=== PATIENT | male | born 1935 | race Caucasian/White ===

== ENCOUNTER → 2016-11-30 | Outpatient (CLI) | payer OTHER ==
[~2016-11-30] MED LIST: ALBUAER2 INH; AMLO-114 PO; ASPI-232 PO; ATEN-173 PO; LISI40TA PO; MELO15TA3 PO; MULTTAB58 PO; TAMS0.4C38 PO; TRAM-10 PO
[2016-11-30 13:05] VITALS: BP 156/68; PULSE 60; TEMP 36.6; O2SAT 96
--- NOTE | 2016-11-30 14:41 | Radiation Oncology Follow-Up ---
Radiation Oncology Follow-Up Date of Visit Nov 30, 2016. Reason For Visit Annual follow-up Radiation Completion Date Hormonal suppression;brachytherapy 02/03/15;IMRT 04/28/15 Diagnosis (1) Prostate cancer Status: Resolved Onset Date: 11/03/2014 Location: both lobes of the prostate Histology Subtype: adenocarcinoma Stage: ll (A) Permanent Comment: Rising PSA to 7.46 Status post ultrasound-guided biopsies revealing adenocarcinoma Foley 4+3, biopsy stage T2c Initiation of hormone suppression prior to prostate seed implant, short course Status post prostate seed implant 02/03/2015 with cesium 131 received 8500 cGy 50 seeds placed Status post completion of IMRT/IGRT 04/28/2015 received 4500 cGy Last Edited By: Sandra Marquez on Nov 30, 2016 14:40 History of Present Illness Mr. Elliott is a 80-year-old male without a family history of prostate cancer. The patient has been followed with serial prostate-specific antigens. Prostate-specific antigen on 12/14/2004 was 3.84. 3.92. December 11 2073.80. 01/2008 3.63. 01/23/2009 4.10. 03/22/2010 3.95. On 04/08/2011 the prostate- specific antigen increased to 5.38. 2010 4.90. 04/13/2012 4.80. 04/12/2013 6.41 and 10/16/2014 7.46. He initially was following a watchful waiting process. The patient was recently seen by Dr. Elam. His digital exam revealed an enlarged prostate that was firm more so on the right without evidence of extra prostatic extension. With the findings of abnormal digital rectal exam and rise in prostate-specific antigen Dr. Elam recommended a ultrasound-guided prostate biopsy. The patient agreed at this procedure was performed on 11/03/2014. A total of 13 samples were taken. Tissue from the left lateral apex, right apex and right lateral apex were benign. Biopsies from the left lateral base was positive for prostatic adenocarcinoma Gabriela grade of 4+3 involving 80% of the core tissue sample. Biopsy from the left base revealed prostatic adenocarcinoma Foley grade 4+3 involving 90% of the core sample. Biopsy from the midline base revealed a prostatic adenocarcinoma Gabriela grade of 4+3 involving 5% of the core sample. Biopsy of the right base revealed prostatic adenocarcinoma Foley grade of 4+3 involving 60% of the core sample with evidence of perineural invasion. Biopsy from the right lateral base was positive for prostatic adenocarcinoma Gabriela grade of 4+3 involving 90 % of the core sample with evidence of perineural invasion. Biopsy from the left lateral mid was positive for prostatic adenocarcinoma Gabriela grade 4+3 involving 90% of the tissue sample with evidence of perineural invasion. Biopsy from the left and right mid gland were both positive for prostatic adenocarcinoma Gabriela grade of 4+3 involving 70% and 90 % of the core tissue samples respectively. Biopsy of the left apex was positive for prostatic adenocarcinoma recent grade of 4+3 involving 60% of the core tissue sample. Therefore total of 10 of 13 biopsies were positive for Gabriela grade 4+3 with 4 of the positive for perineural invasion and 9 of the 10 greater than 50% involvement. Accession #: [id number]. The patient returned to discuss these findings with Dr. Elam. His estimated prostate volume was 39.72 cm. His prostate-specific antigen density was calculated at 0.19. Given these findings and the patient's otherwise good health Dr. Elam felt it was reasonable to discuss definitive treatment options. She did not feel the patient was likely a good candidate for surgery given his age. She therefore suggested consideration of radiation and hormonal suppression. All options of treatment were reviewed with the patient. Ultimately the decision was to treat with hormonal suppression, followed by Prostate seed implant, and then external beam radiation therapy. Interim History He is been doing well over this past year. He gave an AUA score of 3. He continues on tamsulosin daily. He had stopped taking this for approximately 2 months and found that he had increased urinary symptoms. He especially notes a mild burning sensation. With taking the Flomax this resolves. He had reviewed this with Dr. Elam. He was instructed to continue on the medication. He completed expanded prostate cancer index composite for clinical practice and gave a score of 0 12 and urinary incontinence symptoms. He gave a score of 212 in urinary irritation symptoms. He gave a score of 0 of 12 bowel symptoms. He gave a score of 412 and sexual symptoms. He gave a score of one of 12 and hormonal vitality symptoms. His total of 7 of 60. His last PSA was 2014. And this was 0.22. Allergies Coded Allergies: No Known Allergies (Unverified , 02/03/15) Home Medications Scheduled Amlodipine (Norvasc), 10 MG PO QAM Aspirin (Aspir-81), 1 TAB PO QAM Atenolol (Tenormin), 25 MG PO DAILY Lisinopril (Zestril), 40 MG PO QAM Meloxicam (Mobic), 15 MG PO QAM Multiple Vitamin (Multivitamin), 1 TAB PO QAM Tamsulosin Hcl (Flomax), 0.4 MG PO DAILY Scheduled PRN Albuterol (Ventolin Hfa), 2 PUFFS INH Q4H PRN for Shortness of Breath Tramadol (Ultram), 50 MG PO QID PRN for Pain Review of Systems Gastrointestinal: Symptoms: WNL GI Comments: No fiber supplements; Oral: Symptoms: No Problems Respiratory: Symptoms: SOB With Exertion Respiratory Comments: Throat clearing w/talking; Sputum Character: Worked in the [employer]; Other Respiratory: SOB w/exertion is worsening w/aging;uses inhaler daily; Urinary: Symptoms: Burning Comments: Burning in penis right before start of stream-present since implant; Skin: Symptoms: No Problems Physical Exam Vital Signs Date Time Temp Pulse Resp B/P Pulse Ox O2 Delivery O2 Flow Rate FiO2 11/30/16 13:05 36.6 60 16 156/68 96 Fatigue: None General Appearance: no apparent distress Eyes: normal inspection, EOMI ENT: normal ENT inspection, hearing grossly normal Neck: no adenopathy, thyroid normal Respiratory/Chest: lungs clear, no respiratory distress, no accessory muscle use Cardiovascular: regular rate, rhythm, no gallop, no murmur Abdomen: non tender, soft, no organomegaly Anal / Rectum: Mildly laxed sphincter tone. Prostate enlarged, smooth, with no nodules. No rectal masses and no rectal bleeding. Extremities: no pedal edema Neurologic/Psychiatric: no motor/sensory deficits, alert, normal mood/affect Skin: warm/dry Lymphatic: no adenopathy Laboratory Studies Test 11/30/16 13:33 Additional Studies PSA was drawn today. He had a 08/03/2015 that was 0.22. Assessment & Plan Plan: Continue regular follow-up with his PCP and Dr. Elam. A PSA was drawn today prior to examination. He'll be notified as to results. He plans to continue on the tamsulosin. This is been refilled through either Dr. Elam office or Dr. Cisneros's office. We asked him to return to our office in 1 year. He may call if he has new questions or concerns in the interim. Total Time In Follow-Up I spent 20 minutes speaking to the patient performing examination. I spent 15 minutes reviewing information completing this note. Copy To Ben Cisneros M.D.; Sade Elam MD
== END | disposition home or self-care (01) ==
LOC: C.ONC 12:35
PROVIDERS: ATTEND Physician Assistant Medical
DX: Z08 Encounter for follow-up examination after completed treatment for malignant neoplasm (principal); Z92.3 Personal history of irradiation; Z85.46 Personal history of malignant neoplasm of prostate

== ENCOUNTER → 2017-12-05 | Outpatient (CLI) | payer OTHER ==
[2017-12-05 13:33] VITALS: BP 163/55; PULSE 64; TEMP 36.5; O2SAT 97
--- NOTE | 2017-12-05 15:23 | Radiation Oncology Follow-Up ---
Radiation Oncology Follow-Up Date of Visit Dec 05, 2017. Reason For Visit Annual follow-up Radiation Completion Date finished IMRT / IGRT 04-28-2015, and seed implant on 02-03-2015 Diagnosis (1) Prostate cancer Status: Resolved Onset Date: 11/03/2014 Histology Subtype: Adenocarcinoma Stage: ll (A) Permanent Comment: Rising PSA to 7.46 Status post ultrasound-guided biopsies revealing adenocarcinoma Buchanan 4+3, biopsy stage T2c Initiation of hormone suppression prior to prostate seed implant, short course Status post prostate seed implant 02/03/2015 with cesium 131 received 8500 cGy 50 seeds placed Status post completion of IMRT/IGRT 04/28/2015 received 4500 cGy Last Edited By: Sandra Marquez on Nov 30, 2016 14:40 History of Present Illness Mr. Elliott is without a family history of prostate cancer. The patient has been followed with serial prostate-specific antigens. Prostate-specific antigen on 12/14/2004 was 3.84. 3.92. December 113.80. 01/2008 3.63. 01/23/2009 4.10. 03/22/2010 3.95. On 04/08/2011 the prostate- specific antigen increased to 5.38. 2010 4.90. 04/13/2012 4.80. 04/12/2013 6.41 and 10/16/2014 7.46. He initially was following a watchful waiting process. The patient was recently seen by Dr. Elam. His digital exam revealed an enlarged prostate that was firm more so on the right without evidence of extra prostatic extension. With the findings of abnormal digital rectal exam and rise in prostate-specific antigen Dr. Elam recommended a ultrasound-guided prostate biopsy. The patient agreed at this procedure was performed on 11/03/2014. A total of 13 samples were taken. Tissue from the left lateral apex, right apex and right lateral apex were benign. Biopsies from the left lateral base was positive for prostatic adenocarcinoma Gabriela grade of 4+3 involving 80% of the core tissue sample. Biopsy from the left base revealed prostatic adenocarcinoma Buchanan grade 4+3 involving 90% of the core sample. Biopsy from the midline base revealed a prostatic adenocarcinoma Gabriela grade of 4+3 involving 5% of the core sample. Biopsy of the right base revealed prostatic adenocarcinoma Buchanan grade of 4+3 involving 60% of the core sample with evidence of perineural invasion. Biopsy from the right lateral base was positive for prostatic adenocarcinoma Buchanan grade of 4+3 involving 90 % of the core sample with evidence of perineural invasion. Biopsy from the left lateral mid was positive for prostatic adenocarcinoma Buchanan grade 4+3 involving 90% of the tissue sample with evidence of perineural invasion. Biopsy from the left and right mid gland were both positive for prostatic adenocarcinoma Gabriela grade of 4+3 involving 70% and 90 % of the core tissue samples respectively. Biopsy of the left apex was positive for prostatic adenocarcinoma recent grade of 4+3 involving 60% of the core tissue sample. Therefore total of 10 of 13 biopsies were positive for Buchanan grade 4+3 with 4 of the positive for perineural invasion and 9 of the 10 greater than 50% involvement. Accession #: [id number]. The patient returned to discuss these findings with Dr. Elam. His estimated prostate volume was 39.72 cm. His prostate-specific antigen density was calculated at 0.19. Given these findings and the patient's otherwise good health Dr. Elam felt it was reasonable to discuss definitive treatment options. She did not feel the patient was likely a good candidate for surgery given his age. She therefore suggested consideration of radiation and hormonal suppression. All options of treatment were reviewed with the patient. Ultimately the decision was to treat with hormonal suppression, followed by Prostate seed implant, and then external beam radiation therapy. Interim History He has been doing well over this past year from a urinary status. He gave an AUA score of 3. He completed and expanded prostate cancer index composite for clinical practice and gave a score of 0 of 12 in urinary incontinence symptoms. He gave a score of 0 of 12 and urinary irritation symptoms. He gave a score of 0 of 12 and bowel symptoms. He did not complete the remainder of the form. His total score therefore was 0 of 36. He does continue on tamsulosin. This helps with his urination and he continues to take it daily. He has a history of benign prostatic hypertrophy. This past year he had issues with carpal tunnel syndrome and had surgery. He also is now followed by Dr. Taveras for his COPD. His last PSA was November 30, 2016 and that was 0.081. Allergies Coded Allergies: No Known Allergies (Unverified , 02/03/15) Home Medications Scheduled Amlodipine (Norvasc), 10 MG PO QAM Aspirin (Aspir-81), 1 TAB PO QAM Atenolol (Tenormin), 25 MG PO DAILY Lisinopril (Zestril), 40 MG PO QAM Meloxicam (Mobic), 15 MG PO QAM Multiple Vitamin (Multivitamin), 1 TAB PO QAM Tamsulosin Hcl (Flomax), 0.4 MG PO DAILY Scheduled PRN Albuterol (Ventolin Hfa), 2 PUFFS INH Q4H PRN for Shortness of Breath Tramadol (Ultram), 50 MG PO QID PRN for Pain Review of Systems Gastrointestinal: Symptoms: WNL GI Comments: No fiber supplements; Oral: Symptoms: No Problems Other Oral Symptoms: " occ sore in front lower teeth when dentures rub " Respiratory: Symptoms: SOB With Exertion Respiratory Comments: Throat clearing w/talking; Sputum Character: Worked in the [employer]; Other Respiratory: " working with Dr Taveras for this " Urinary: Symptoms: Nocturia Comments: " occ urgency when hands are in water " , nocturia times 2 Skin: Symptoms: No Problems Other Skin Symptoms: " gets a rash on the back of my legs " Physical Exam Vital Signs Date Time Temp Pulse Resp B/P (MAP) Pulse Ox O2 Delivery O2 Flow Rate FiO2 12/05/17 13:33 36.5 64 20 163/55 97 Fatigue: None General Appearance: no apparent distress Eyes: normal inspection, EOMI ENT: normal ENT inspection, hearing grossly normal Respiratory/Chest: no respiratory distress, no accessory muscle use, + decreased breath sounds Cardiovascular: regular rate, rhythm, no gallop, no murmur Abdomen: non tender, soft, no organomegaly Anal / Rectum: Normal sphincter tone. Mild external hemorrhoids. No rectal masses no rectal bleeding. Prostate enlarged. No prostate nodules. Extremities: no pedal edema Neurologic/Psychiatric: no motor/sensory deficits, alert, normal mood/affect Skin: warm/dry Pain Management Patient Reports Pain: No Side: Bilateral Patient Preferred Pain Scale: 0 - 10 Initial Pain Intensity: 0.0 Pain Management Plan He denies pain therefore requires no pain management. Laboratory Laboratory Results: were reviewed, and pertinent findings noted below Laboratory Comments: Test 12/05/17 13:40 Prostate Specific Antigen 0.069 ng/ml (0.000-4.000) Pathology Pathology Results: not applicable Imaging Imaging Studies: not applicable Assessment & Plan Plan: PSA was drawn today prior to examination. Continue regular follow-up with his primary care physician and urology. He will be notified as to the results of the PSA. We asked him to return to our office in 1 year. He continues on the tamsulosin which is being refilled through Dr. Lord's or Dr. Elam's office. He may call our office if he has any questions or concerns. Total Time In Follow-Up I spent 20 minutes speaking to the patient in performing examination. I spent 15 minutes reviewing information and completing this note. Copy To Ben Cisneros M.D.; Sade Elam MD
== END | disposition home or self-care (01) ==
LOC: C.ONC 13:19
PROVIDERS: ATTEND Physician Assistant Medical
DX: Z08 Encounter for follow-up examination after completed treatment for malignant neoplasm (principal); Z92.3 Personal history of irradiation; Z85.46 Personal history of malignant neoplasm of prostate

== ENCOUNTER 2023-03-06 18:09 | Inpatient (IN) ==
[2023-03-06] MEDS ORDERED: ASPIRIN 81 MG CHEW PO STA (18:27)
[2023-03-06] MEDS ORDERED: ALBUT/IPRATROP 3MG/0.5MG NEB 3 ML VIAL NEB STA (18:27)
--- NOTE | 2023-03-06 18:30 | Emergency Department Note ---
Impression & Plan Acute CHF (congestive heart failure), Hypoxia, Acute bronchitis due to Rhinovirus ED Provider Note Provider: Zack Rosas MD DATE OF SERVICE: 03/06/2023 CHIEF COMPLAINT: Shortness of breath, chest pain HISTORY OF PRESENT ILLNESS: Patient is a 87-year-old gentleman history of pneumatosis, distant former smoker, and CHF who reports presenting here today via ambulance from his home. Over the past several days he states has had worsening shortness of breath, leg swelling at the ankles, and some central chest discomfort. 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 Has been taking his diuretic Lasix. Reports of brownish sputum with his cough. Using his home 2 L of oxygen at night regularly but not during the day and was found to be hypoxic on room air for EMS in the 80s. Placed on additional nasal cannula oxygen and given nitroglycerin in route here. Patient states his chest discomfort is nearly resolved and very minimal now. Denies any abdominal pain but occasionally has some gas. No trauma reported. Significant dyspnea on exertion. Takes a baby aspirin daily. Nebulizers at home not helping much with his symptoms by report. PAST MEDICAL HISTORY: As noted above MEDICATIONS: Reviewed home medications SOCIAL HISTORY: Very distant former smoker PHYSICAL EXAM: GENERAL: alert and oriented in no acute distress on stretcher Head: normocephalic and atraumatic EYES: No injection, discharge or icterus. NECK: Trachea midline. Supple. ENT: Mucous membranes pink and moist. LUNGS: Airway patent. No retractions. Breath sounds with some scattered wheeze and tachypnea noted. HEART: Regular rate and rhythm. No chest wall tenderness ABDOMEN: Soft and non-tender, without guarding or rebound. SKIN: Acyanotic, warm, dry, without rashes EXTREMITIES: Without deformity with 1-2+ lower extremity edema in the bilateral lower legs without significant erythema. NEUROLOGICAL: No focal deficits. No aphasia. No facial droop or slurred speech EK bpm normal sinus rhythm without PVC noted. Inferior lateral T wave changes without acute ST segment elevation noted. LVH findings noted. CONTINUOUS CARDIAC MONITORING: was ordered and showed a heart rate of 80s-100s bpm in normal sinus rhythm to sinus tachycardia Patient's laboratory studies and imaging reviewed. Differential includes Reactive airway disease, pneumonia, pneumothorax, COPD, CHF, infections, cardiac ischemia, pulmonary embolism, musculoskeletal, gastrointestinal, as well as other pathologies. IMPRESSION/MEDICAL DECISION MAKING: Patient uses 2 L oxygen at night but not normally during the day increasing shortness of breath with some pedal edema developing over the last several days with some central chest discomfort. No trauma reported or syncope. Improved with some nitroglycerin on the way but still with some respiratory symptoms. Increase oxygen requirement from baseline. States compliance with home occasions nebulizers and diuretics. Reviewed the [facility] medical record showing evidence of interstitial lung disease without significant pulmonary edema from CT angiogram of the chest without PE from February 21. Office note from February 14 reviewed from PCPs office. Has had some phlegm production with a borderline temperature here. Will give aspirin and a DuoNeb. Respiratory viral panel ordered. Basic labs ordered as well as chest x-ray. Low suspicion for acute PE at this time. Possibly infectious versus related to fluid overload. We will complete troponin in addition to EKG to exclude ACS but not having significant pain now and lower suspicion for acute ACS and no evidence of STEMI on EKG. Blood work with mild leukocytosis of 12.2. Slight anemia of 12.3. Platelet count normal. Chest x-ray questions pulmonary edema findings. BNP elevated. Some troponin elevation of 135. Reviewing outpatient labs show that he did have a creatinine of 1.7 on February 14 and is 1.99 today. Will cover with doxycycline given his underlying lung disease and the fever to cover any bacterial component. Enterovirus/rhinovirus finding on the bio fire likely contributing as well. Given some aspirin with the elevated troponin and a bit of Lasix for further diuresis. A mix picture of interstitial lung disease/COPD flare with rhinovirus as well as underlying CHF. Discussed with patient and granddaughter at bedside. Discussed with hospitalist further care here. Was able to wean down his oxygen some to about 3 L NC. DIAGNOSIS: Hypoxia, acute CHF exacerbation, COPD exacerbation, enterovirus/rhinovirus DISPOSITION: Hospitalist will evaluate Patient was agreeable with this plan. Past Med/Surg History Medical History (Updated 03/07/23 @ 00:08 by Zack Rosas M.D.) Asthma Cough Dizziness Surgical History (Updated 05/21/19 @ 16:38 by Jaye Hanley) H/O shoulder surgery History of appendectomy Social History (Updated 05/21/19 @ 16:38 by Jaye Hanley) Smoking Status: Never smoker Second Hand Exposure: No; Do You Dip or Chew Tobacco: No; Tobacco Cessation Education Requested by Patient: No Hx Alcohol Use: No Hx Substance Use: No Communication Ability: Effective Beliefs That Will Affect Care: None marital status: / Current Living Situation: Alone Other Information That Helps Us Care for You: No Feels Safe at Home: Yes Safety Concerns: Feels Safe At This Time Assistive Devices: None Allergies Allergies Allergy/AdvReac Type Severity Reaction Status Date / Time No Known Allergies Allergy Verified 03/06/23 19:40 Home Meds Home Medications Medication Instructions Recorded Confirmed aspirin 81 mg tablet,delayed 81 mg PO DAILY 05/21/19 03/06/23 release meloxicam 15 mg tablet 15 mg PO DAILY 05/21/19 03/06/23 tamsulosin 0.4 mg capsule 0.8 mg PO DAILY 05/21/19 03/06/23 triamcinolone acetonide 0.1 % 1 applic topical BID PRN Skin 05/21/19 03/06/23 topical ointment Irritation multivitamin-ferrous 1 tab PO DAILY 05/22/19 03/06/23 fumarate-folic acid 18 mg-400 mcg tablet (Centrum Complete) carvedilol 12.5 mg tablet 12.5 mg PO BID 05/26/20 03/06/23 citalopram 10 mg tablet 10 mg PO QAM 03/06/23 03/06/23 cyanocobalamin (vitamin B-12) 100 100 mcg PO DAILY 03/06/23 03/06/23 mcg tablet (Vitamin B-12) famotidine 20 mg tablet 20 mg PO HS 03/06/23 03/06/23 furosemide 40 mg tablet (Lasix) 40 mg PO QAM 03/06/23 03/06/23 guaifenesin 600 mg tablet, 600 mg PO Q12H PRN COUGH/CONGESTION 03/06/23 03/06/23 extended release 12 hr ipratropium bromide 17 2 puff inhalation QID 03/06/23 03/06/23 mcg/actuation HFA aerosol inhaler (Atrovent HFA) irbesartan 75 mg tablet 75 mg PO DAILY 03/06/23 03/06/23 loratadine 10 mg tablet (Claritin) 10 mg PO DAILY 03/06/23 03/06/23 pantoprazole 20 mg tablet,delayed 20 mg PO DAILYBB 03/06/23 03/06/23 release salmeterol 50 mcg/dose blister 1 inh inhalation BID 03/06/23 03/06/23 powder for inhalation (Serevent Diskus) sodium chloride 0.65 % nasal spray 1 spray intranasal BID PRN NASAL 03/06/23 03/06/23 aerosol (Saline Nasal) DRYNESS Previous Rx's Medication Instructions Recorded fluticasone propionate 50 2 sprays intranasal DAILY #16 grams 11/29/19 mcg/actuation nasal spray,suspension Results & Data (ED) Vital Signs Vital Signs - 24 hr 03/06/23 18:27 03/06/23 18:27 03/06/23 18:27 Temperature 37.8 C H Temperature Source Oral Pulse Rate 99 H Pulse Rate [Apical] 99 H Pulse Rhythm Regular Pulse Rhythm [Apical] Regular Pulse Strength Normal Pulse Strength [Apical] Normal Respiratory Rate 30 H 30 H Respiratory Effort / Characteristics Labored Labored Labored Respiratory Depth Shallow Shallow Shallow Respiratory Pattern Tachypnea Tachypnea Tachypnea Blood Pressure 142/85 H Blood Pressure [Right Arm] 142/85 H Blood Pressure Mean 104 Blood Pressure Mean [Right Arm] 104 Blood Pressure Position Sitting Blood Pressure Position [Right Arm] Sitting Pulse Oximetry 86 L 86 L Oxygen Delivery Method Room Air Room Air Room Air Oxygen Flow Rate Sepsis Recent Fever Within 48 Hours No Sepsis New/Unexplained Change in Mental Status No Sepsis Action Taken by Nursing No Action Required 03/06/23 18:27 03/06/23 18:27 03/06/23 18:28 Temperature Temperature Source Pulse Rate 99 H 101 H Pulse Rate [Apical] Pulse Rhythm Regular Pulse Rhythm [Apical] Pulse Strength Pulse Strength [Apical] Respiratory Rate 30 H Respiratory Effort / Characteristics Respiratory Depth Respiratory Pattern Blood Pressure Blood Pressure [Right Arm] Blood Pressure Mean Blood Pressure Mean [Right Arm] Blood Pressure Position Blood Pressure Position [Right Arm] Pulse Oximetry 96 Oxygen Delivery Method Nasal Cannula Nasal Cannula Oxygen Flow Rate 4 4 Sepsis Recent Fever Within 48 Hours Sepsis New/Unexplained Change in Mental Status Sepsis Action Taken by Nursing 03/06/23 18:22 03/06/23 18:30 03/06/23 19:00 Temperature Temperature Source Pulse Rate 97 H 99 H 97 H Pulse Rate [Apical] Pulse Rhythm Pulse Rhythm [Apical] Pulse Strength Pulse Strength [Apical] Respiratory Rate 30 H 28 H 25 H Respiratory Effort / Characteristics Respiratory Depth Respiratory Pattern Blood Pressure 144/93 H 148/94 H Blood Pressure [Right Arm] Blood Pressure Mean 110 112 Blood Pressure Mean [Right Arm] Blood Pressure Position Blood Pressure Position [Right Arm] Pulse Oximetry 99 100 100 Oxygen Delivery Method Nasal Cannula Nasal Cannula Nasal Cannula Oxygen Flow Rate 4 4 4 Sepsis Recent Fever Within 48 Hours Sepsis New/Unexplained Change in Mental Status Sepsis Action Taken by Nursing 03/06/23 19:30 03/06/23 20:00 03/06/23 20:30 Temperature Temperature Source Pulse Rate 97 H 94 H 91 H Pulse Rate [Apical] Pulse Rhythm Pulse Rhythm [Apical] Pulse Strength Pulse Strength [Apical] Respiratory Rate 22 29 H 22 Respiratory Effort / Characteristics Respiratory Depth Respiratory Pattern Blood Pressure 139/85 135/82 137/86 Blood Pressure [Right Arm] Blood Pressure Mean 103 99 103 Blood Pressure Mean [Right Arm] Blood Pressure Position Blood Pressure Position [Right Arm] Pulse Oximetry 98 98 97 Oxygen Delivery Method Nasal Cannula Nasal Cannula Nasal Cannula Oxygen Flow Rate 4 4 4 Sepsis Recent Fever Within 48 Hours Sepsis New/Unexplained Change in Mental Status Sepsis Action Taken by Nursing 03/06/23 21:00 03/06/23 21:31 Temperature Temperature Source Pulse Rate 89 98 H Pulse Rate [Apical] Pulse Rhythm Pulse Rhythm [Apical] Pulse Strength Pulse Strength [Apical] Respiratory Rate 16 23 Respiratory Effort / Characteristics Respiratory Depth Respiratory Pattern Blood Pressure 139/84 130/85 Blood Pressure [Right Arm] Blood Pressure Mean 102 100 Blood Pressure Mean [Right Arm] Blood Pressure Position Blood Pressure Position [Right Arm] Pulse Oximetry 96 94 Oxygen Delivery Method Nasal Cannula Nasal Cannula Oxygen Flow Rate 2 2 Sepsis Recent Fever Within 48 Hours Sepsis New/Unexplained Change in Mental Status Sepsis Action Taken by Nursing Laboratory Data 03/06/23 18:27 03/06/23 18:27 Lab Results 03/06/23 03/06/23 03/06/23 Range/Units 18:27 18:27 18:28 WBC 12.23 H (4.8-10.8) K/ul RBC 4.06 L (4.70-6.10) M/uL Hgb 12.3 L (14.0-18.0) g/dl Hct 37.0 L (42.0-52.0) % MCV 91.1 (80.0-100.0) fL MCH 30.3 (25.0-34.0) pg MCHC 33.2 (32.0-36.0) g/dL RDW Std Deviation 47.7 H (36.4-46.3) fL RDW Coeff of Nehemias 14.4 (11.5-14.5) % Plt Count 223 (130-400) K/uL MPV 11.2 (9.4-12.4) fL Immature Gran % (Auto) 0.2 % Neut % (Auto) 78.9 % Lymph % (Auto) 8.2 % [place] % (Auto) 7.4 % Eos % (Auto) 4.4 % Baso % (Auto) 0.9 % Neut # (Auto) 9.64 H (1.40-6.50) K/uL Lymph # (Auto) 1.00 L (1.2-3.4) K/uL [place] # (Auto) 0.91 H (0.11-0.59) K/uL Eos # (Auto) 0.54 H (0-0.50) K/uL Baso # (Auto) 0.11 (0-0.2) K/uL Immature Gran # (Auto) 0.03 (0.01-0.20) K/uL PT Cancelled INR Cancelled APTT Cancelled PTT Ratio Cancelled ABG pH (7.35-7.45) ABG pCO2 (35-46) mmHg ABG pO2 (80-95) mmHg ABG HCO3 (19-24) mmol/L ABG O2 Saturation (90-95) % ABG Base Excess (-9-1.8) mEq/L Claudoi Test (Pos) Oxygen Given Sodium Cancelled Potassium Cancelled Chloride Cancelled Carbon Dioxide Cancelled Anion Gap Cancelled BUN Cancelled Creatinine Cancelled Est Cr Clr Drug Dosing Cancelled Est GFR ( Amer) Cancelled Est GFR (Non-Af Amer) Cancelled BUN/Creatinine Ratio Cancelled Glucose Cancelled Lactate (0.4-2.0) mmol/L Calcium Cancelled Magnesium Cancelled Total Bilirubin Cancelled AST Cancelled ALT Cancelled Alkaline Phosphatase Cancelled Troponin I High Sens 135.4 H* (0-20) pg/ml B-Natriuretic Peptide (0-100) pg/ml Total Protein Cancelled Albumin Cancelled Globulin Cancelled Albumin/Globulin Ratio Cancelled Procalcitonin (0-0.5) ng/ml TSH (0.300-4.500) uIu/ml Free T4 (0.61-1.60) ng/dl Adenovirus (PCR) (NotDetected) B. pertussis DNA (PCR) (NotDetected) B.parapertussis DNA PCR (NotDetected) C. pneumoniae DNA (PCR) (NotDetected) Coronavirus OC43 (PCR) (NotDetected) Coronavirus HKU1 (PCR) (NotDetected) Coronavirus 229E (PCR) (NotDetected) SARS-CoV-2 (PCR) (NotDetected) Coronavirus NL63 (PCR) (NotDetected) Human Metapneumovir PCR (NotDetected) Influenza Type A (PCR) (NotDetected) Influenza Type B (PCR) (NotDetected) M. pneumoniae (PCR) (NotDetected) Parainfluenza 1 (PCR) (NotDetected) Parainfluenza 2 (PCR) (NotDetected) Parainfluenza 3 (PCR) (NotDetected) Parainfluenza 4 (PCR) (NotDetected) RSV (PCR) (NotDetected) Entero/Rhino (PCR) (NotDetected) 03/06/23 03/06/23 03/06/23 Range/Units 18:28 18:44 19:33 WBC (4.8-10.8) K/ul RBC (4.70-6.10) M/uL Hgb (14.0-18.0) g/dl Hct (42.0-52.0) % MCV (80.0-100.0) fL MCH (25.0-34.0) pg MCHC (32.0-36.0) g/dL RDW Std Deviation (36.4-46.3) fL RDW Coeff of Nehemias (11.5-14.5) % Plt Count (130-400) K/uL MPV (9.4-12.4) fL Immature Gran % (Auto) % Neut % (Auto) % Lymph % (Auto) % [place] % (Auto) % Eos % (Auto) % Baso % (Auto) % Neut # (Auto) (1.40-6.50) K/uL Lymph # (Auto) (1.2-3.4) K/uL [place] # (Auto) (0.11-0.59) K/uL Eos # (Auto) (0-0.50) K/uL Baso # (Auto) (0-0.2) K/uL Immature Gran # (Auto) (0.01-0.20) K/uL PT INR APTT PTT Ratio ABG pH (7.35-7.45) ABG pCO2 (35-46) mmHg ABG pO2 (80-95) mmHg ABG HCO3 (19-24) mmol/L ABG O2 Saturation (90-95) % ABG Base Excess (-9-1.8) mEq/L Claudio Test (Pos) Oxygen Given Sodium Potassium Chloride Carbon Dioxide Anion Gap BUN Creatinine Est Cr Clr Drug Dosing Est GFR ( Amer) Est GFR (Non-Af Amer) BUN/Creatinine Ratio Glucose Lactate 1.2 (0.4-2.0) mmol/L Calcium Magnesium Total Bilirubin AST ALT Alkaline Phosphatase Troponin I High Sens (0-20) pg/ml B-Natriuretic Peptide 1691 H (0-100) pg/ml Total Protein Albumin Globulin Albumin/Globulin Ratio Procalcitonin (0-0.5) ng/ml TSH (0.300-4.500) uIu/ml Free T4 (0.61-1.60) ng/dl Adenovirus (PCR) Not Detected (NotDetected) B. pertussis DNA (PCR) Not Detected (NotDetected) B.parapertussis DNA PCR Not Detected (NotDetected) C. pneumoniae DNA (PCR) Not Detected (NotDetected) Coronavirus OC43 (PCR) Not Detected (NotDetected) Coronavirus HKU1 (PCR) Not Detected (NotDetected) Coronavirus 229E (PCR) Not Detected (NotDetected) SARS-CoV-2 (PCR) Not Detected (NotDetected) Coronavirus NL63 (PCR) Not Detected (NotDetected) Human Metapneumovir PCR Not Detected (NotDetected) Influenza Type A (PCR) Not Detected (NotDetected) Influenza Type B (PCR) Not Detected (NotDetected) M. pneumoniae (PCR) Not Detected (NotDetected) Parainfluenza 1 (PCR) Not Detected (NotDetected) Parainfluenza 2 (PCR) Not Detected (NotDetected) Parainfluenza 3 (PCR) Not Detected (NotDetected) Parainfluenza 4 (PCR) Not Detected (NotDetected) RSV (PCR) Not Detected (NotDetected) Entero/Rhino (PCR) DETECTED A* (NotDetected) 03/06/23 03/06/23 03/06/23 Range/Units 19:33 19:33 19:34 WBC (4.8-10.8) K/ul RBC (4.70-6.10) M/uL Hgb (14.0-18.0) g/dl Hct (42.0-52.0) % MCV (80.0-100.0) fL MCH (25.0-34.0) pg MCHC (32.0-36.0) g/dL RDW Std Deviation (36.4-46.3) fL RDW Coeff of Nehemias (11.5-14.5) % Plt Count (130-400) K/uL MPV (9.4-12.4) fL Immature Gran % (Auto) % Neut % (Auto) % Lymph % (Auto) % [place] % (Auto) % Eos % (Auto) % Baso % (Auto) % Neut # (Auto) (1.40-6.50) K/uL Lymph # (Auto) (1.2-3.4) K/uL [place] # (Auto) (0.11-0.59) K/uL Eos # (Auto) (0-0.50) K/uL Baso # (Auto) (0-0.2) K/uL Immature Gran # (Auto) (0.01-0.20) K/uL PT INR APTT PTT Ratio ABG pH (7.35-7.45) ABG pCO2 (35-46) mmHg ABG pO2 (80-95) mmHg ABG HCO3 (19-24) mmol/L ABG O2 Saturation (90-95) % ABG Base Excess (-9-1.8) mEq/L Claudio Test (Pos) Oxygen Given Sodium 134 L Potassium 4.9 Chloride 103 Carbon Dioxide 26 Anion Gap 5 BUN 46 H Creatinine 1.99 H Est Cr Clr Drug Dosing 30.4 Est GFR ( Amer) 34.0 Est GFR (Non-Af Amer) 29.3 BUN/Creatinine Ratio 23.1 H Glucose 160 H Lactate (0.4-2.0) mmol/L Calcium 9.5 Magnesium 2.0 Total Bilirubin 0.6 AST 18 ALT 24 Alkaline Phosphatase 120 H Troponin I High Sens (0-20) pg/ml B-Natriuretic Peptide (0-100) pg/ml Total Protein 8.0 Albumin 3.7 Globulin 4.3 H Albumin/Globulin Ratio 0.9 Procalcitonin 0.05 (0-0.5) ng/ml TSH 5.207 H (0.300-4.500) uIu/ml Free T4 1.15 (0.61-1.60) ng/dl Adenovirus (PCR) (NotDetected) B. pertussis DNA (PCR) (NotDetected) B.parapertussis DNA PCR (NotDetected) C. pneumoniae DNA (PCR) (NotDetected) Coronavirus OC43 (PCR) (NotDetected) Coronavirus HKU1 (PCR) (NotDetected) Coronavirus 229E (PCR) (NotDetected) SARS-CoV-2 (PCR) (NotDetected) Coronavirus NL63 (PCR) (NotDetected) Human Metapneumovir PCR (NotDetected) Influenza Type A (PCR) (NotDetected) Influenza Type B (PCR) (NotDetected) M. pneumoniae (PCR) (NotDetected) Parainfluenza 1 (PCR) (NotDetected) Parainfluenza 2 (PCR) (NotDetected) Parainfluenza 3 (PCR) (NotDetected) Parainfluenza 4 (PCR) (NotDetected) RSV (PCR) (NotDetected) Entero/Rhino (PCR) (NotDetected) 03/06/23 03/06/23 03/06/23 Range/Units 19:36 21:22 21:22 WBC (4.8-10.8) K/ul RBC (4.70-6.10) M/uL Hgb 12.4 L (14.0-18.0) g/dl Hct 37.0 L (42.0-52.0) % MCV (80.0-100.0) fL MCH (25.0-34.0) pg MCHC (32.0-36.0) g/dL RDW Std Deviation (36.4-46.3) fL RDW Coeff of Nehemias (11.5-14.5) % Plt Count (130-400) K/uL MPV (9.4-12.4) fL Immature Gran % (Auto) % Neut % (Auto) % Lymph % (Auto) % [place] % (Auto) % Eos % (Auto) % Baso % (Auto) % Neut # (Auto) (1.40-6.50) K/uL Lymph # (Auto) (1.2-3.4) K/uL [place] # (Auto) (0.11-0.59) K/uL Eos # (Auto) (0-0.50) K/uL Baso # (Auto) (0-0.2) K/uL Immature Gran # (Auto) (0.01-0.20) K/uL PT 11.5 INR 1.1 APTT 27.9 PTT Ratio 1.0 ABG pH (7.35-7.45) ABG pCO2 (35-46) mmHg ABG pO2 (80-95) mmHg ABG HCO3 (19-24) mmol/L ABG O2 Saturation (90-95) % ABG Base Excess (-9-1.8) mEq/L Claudio Test (Pos) Oxygen Given Sodium Potassium Chloride Carbon Dioxide Anion Gap BUN Creatinine Est Cr Clr Drug Dosing Est GFR ( Amer) Est GFR (Non-Af Amer) BUN/Creatinine Ratio Glucose Lactate (0.4-2.0) mmol/L Calcium Magnesium Total Bilirubin AST ALT Alkaline Phosphatase Troponin I High Sens 133.6 H* (0-20) pg/ml B-Natriuretic Peptide (0-100) pg/ml Total Protein Albumin Globulin Albumin/Globulin Ratio Procalcitonin (0-0.5) ng/ml TSH (0.300-4.500) uIu/ml Free T4 (0.61-1.60) ng/dl Adenovirus (PCR) (NotDetected) B. pertussis DNA (PCR) (NotDetected) B.parapertussis DNA PCR (NotDetected) C. pneumoniae DNA (PCR) (NotDetected) Coronavirus OC43 (PCR) (NotDetected) Coronavirus HKU1 (PCR) (NotDetected) Coronavirus 229E (PCR) (NotDetected) SARS-CoV-2 (PCR) (NotDetected) Coronavirus NL63 (PCR) (NotDetected) Human Metapneumovir PCR (NotDetected) Influenza Type A (PCR) (NotDetected) Influenza Type B (PCR) (NotDetected) M. pneumoniae (PCR) (NotDetected) Parainfluenza 1 (PCR) (NotDetected) Parainfluenza 2 (PCR) (NotDetected) Parainfluenza 3 (PCR) (NotDetected) Parainfluenza 4 (PCR) (NotDetected) RSV (PCR) (NotDetected) Entero/Rhino (PCR) (NotDetected) 03/06/23 Range/Units 21:22 WBC (4.8-10.8) K/ul RBC (4.70-6.10) M/uL Hgb (14.0-18.0) g/dl Hct (42.0-52.0) % MCV (80.0-100.0) fL MCH (25.0-34.0) pg MCHC (32.0-36.0) g/dL RDW Std Deviation (36.4-46.3) fL RDW Coeff of Nehemias (11.5-14.5) % Plt Count (130-400) K/uL MPV (9.4-12.4) fL Immature Gran % (Auto) % Neut % (Auto) % Lymph % (Auto) % [place] % (Auto) % Eos % (Auto) % Baso % (Auto) % Neut # (Auto) (1.40-6.50) K/uL Lymph # (Auto) (1.2-3.4) K/uL [place] # (Auto) (0.11-0.59) K/uL Eos # (Auto) (0-0.50) K/uL Baso # (Auto) (0-0.2) K/uL Immature Gran # (Auto) (0.01-0.20) K/uL PT INR APTT PTT Ratio ABG pH 7.47 H (7.35-7.45) ABG pCO2 33 L (35-46) mmHg ABG pO2 95 (80-95) mmHg ABG HCO3 24 (19-24) mmol/L ABG O2 Saturation 99.6 H (90-95) % ABG Base Excess 0.8 (-9-1.8) mEq/L Claudio Test Pos (Pos) Oxygen Given 4L Sodium Potassium Chloride Carbon Dioxide Anion Gap BUN Creatinine Est Cr Clr Drug Dosing Est GFR ( Amer) Est GFR (Non-Af Amer) BUN/Creatinine Ratio Glucose Lactate (0.4-2.0) mmol/L Calcium Magnesium Total Bilirubin AST ALT Alkaline Phosphatase Troponin I High Sens (0-20) pg/ml B-Natriuretic Peptide (0-100) pg/ml Total Protein Albumin Globulin Albumin/Globulin Ratio Procalcitonin (0-0.5) ng/ml TSH (0.300-4.500) uIu/ml Free T4 (0.61-1.60) ng/dl Adenovirus (PCR) (NotDetected) B. pertussis DNA (PCR) (NotDetected) B.parapertussis DNA PCR (NotDetected) C. pneumoniae DNA (PCR) (NotDetected) Coronavirus OC43 (PCR) (NotDetected) Coronavirus HKU1 (PCR) (NotDetected) Coronavirus 229E (PCR) (NotDetected) SARS-CoV-2 (PCR) (NotDetected) Coronavirus NL63 (PCR) (NotDetected) Human Metapneumovir PCR (NotDetected) Influenza Type A (PCR) (NotDetected) Influenza Type B (PCR) (NotDetected) M. pneumoniae (PCR) (NotDetected) Parainfluenza 1 (PCR) (NotDetected) Parainfluenza 2 (PCR) (NotDetected) Parainfluenza 3 (PCR) (NotDetected) Parainfluenza 4 (PCR) (NotDetected) RSV (PCR) (NotDetected) Entero/Rhino (PCR) (NotDetected) Administered Medications Discontinued Medications Acetaminophen (Acetaminophen 325 Mg Tab) 650 mg PO NOW STA Stop: 03/06/23 20:37 Last Admin: 03/06/23 22:03 Dose: 650 mg Documented By: ELLIOT Albuterol (Albut/Ipratrop 3mg/0.5mg Neb 3 Ml Vial) 3 ml NEB NOW STA; Protocol Stop: 03/06/23 18:28 Last Admin: 03/06/23 18:39 Dose: 3 ml Documented By: RAMEZ Aspirin (Aspirin 81 Mg Chew) 324 mg PO NOW STA Stop: 03/06/23 18:28 Last Admin: 03/06/23 18:40 Dose: 324 mg Documented By: ML Doxycycline Hyclate (Doxycycline Hyclate 100 Mg Cap) 100 mg PO NOW STA Stop: 03/06/23 20:12 Last Admin: 03/06/23 20:20 Dose: 100 mg Documented By: ELLIOT Furosemide (Furosemide Inj 20 Mg/2 Ml Vial) 20 mg IV ONE ONE Stop: 03/06/23 20:12 Last Admin: 03/06/23 20:20 Dose: 20 mg Documented By: ELLIOT Furosemide (Furosemide 40 Mg/4 Ml Vial) 40 mg IV ONE ONE Stop: 03/06/23 21:48 Last Admin: 03/06/23 22:03 Dose: 40 mg Documented By: ELLIOT Imaging Data Radiologist's Impression: Chest X-Ray 03/06/23 18:27 SINGLE VIEW CHEST CLINICAL HISTORY: Dyspnea FINDINGS: An AP, portable, upright chest radiograph is compared to study dated 05/26/2020 and correlated with chest CT dated 06/29/2019. The heart is enlarged noting atherosclerotic calcification of the thoracic aorta. There is pulmonary vascular congestion. Bilateral airspace opacities likely represents pulmonary edema. There are small pleural effusions with dependent consolidation. No pneumo thorax is seen. The skeletal structures are osteopenic. The bony thorax is grossly intact. IMPRESSION: 1. Cardiomegaly with evidence of congestive failure. 2. Bilateral airspace opacities likely represents pulmonary edema. Correlate clinically. 3. Small pleural effusions with dependent consolidation. ACT 112: Negative or not required by law. Electronically signed by: Margarito Skinner M.D. 03/06/2023 7:[address] 03/06/23 21:50 Exam(s): CT CHEST Without Contrast EXAM: CT Chest Without Intravenous Contrast CLINICAL HISTORY: Reason for exam: worsening cough. TECHNIQUE: Axial computed tomography images of the chest without intravenous contrast. Automated exposure control was utilized for the study. A dose lowering technique was utilized adhering to the principles of ALARA. COMPARISON: CT chest 06/21/19, report unavailable. FINDINGS: Lungs: Diffuse bilateral micronodular opacities are similar to prior exam. Bronchial wall thickening with confluent peribronchial opacities in the dependent lingula, right middle lobe, and both lower lobes. Pleural space: Small layering bilateral pleural effusions. No pneumothorax. Heart: Coronary artery atherosclerosis. Normal heart size. Trace pericardial effusion. Bones/joints: Unremarkable. No acute fracture or dislocation. Soft tissues: Unremarkable. Vasculature: Thoracic aortic atherosclerosis without aneurysm. Normal caliber main pulmonary artery. Lymph nodes: Unremarkable. No mediastinal, hilar, or axillary lymphadenopathy. Other findings: Septal thickening. IMPRESSION: 1. There are small layering pleural effusions and diffuse interstitial thickening suggesting underlying pulmonary edema. 2. Bronchial wall thickening with confluent peribronchial opacities in the dependent lingula, right middle lobe, and both lower lobes, potentially pneumonia. 3. There are widespread bilateral micronodular opacities not significantly changed from 2019. Considerations include lung disease due to inorganic mineral dust inhalation (e.g. silicosis), disseminated fungal or mycobacterial infection, and sarcoidosis. Irrespective of cause, appearance is stable and not progressive. Correlate with clinical history. Electronically signed by: Jo Wright M.D. 03/06/23 23:28 PM Venous Doppler Study 03/06/23 21:50 Exam(s): US VENOUS LEFT LOWER EXTREMITY EXAM: US Duplex Left Lower Extremity Veins CLINICAL HISTORY: Reason for exam: LLE pain. TECHNIQUE: Real-time duplex ultrasound scan of the left lower extremity veins integrating B-mode two-dimensional vascular structure, Doppler spectral analysis, color flow Doppler imaging and compression. COMPARISON: No relevant prior studies available. FINDINGS: Deep veins: Unremarkable. No DVT in the visualized common femoral, femoral, proximal deep femoral or popliteal veins. The veins demonstrate normal color flow, are normally compressible, with normal phasic flow and/or augmentation response. Superficial veins: Unremarkable. No thrombus in the visualized great saphenous vein. Soft tissues: Mild subcutaneous edema. IMPRESSION: No evidence of acute DVT. Electronically signed by: Jo Wright M.D. 03/06/23 23:30 PM Discharge Plan Visit Data Chief Complaint: Shortness of Breath/Dyspnea Stated Complaint: SHORTNESS OF BREATH, CHF ED Provider: Zack Rosas Discharge Problem: Acute CHF (congestive heart failure), Hypoxia, Acute bronchitis due to Rhinovirus Patient Disposition: Admitted As Inpatient Discharge Instructions Interventions: ED Discharge Assessment Last Done: 03/06/23 22:47
--- NOTE | 2023-03-06 19:01 | XRay Report ---
SINGLE VIEW CHEST CLINICAL HISTORY: Dyspnea FINDINGS: An AP, portable, upright chest radiograph is compared to study dated 05/26/2020 and correlat ed with chest CT dated 06/29/2019. The heart is enlarged noting atherosclerotic calcification of the t horacic aorta. There is pulmonary vascular congestion. Bilateral airspace opacities likely represents pulmonary edema. There are small pleural effusions with dependent consolidation. No pneumothorax is seen. The skeletal structures are osteopenic. The bony thorax is grossly intact. IMPRESSION: 1. Cardiomegaly with evidence of congestive failure. 2. Bilateral airspace opacities likely represents pulmonary edema. Correlate clinically. 3. Small pleural effusions with dependent consolidation. ACT 112: Negative or not required by law. Electronically signed by: Margarito Skinner M.D. 03/06/2023 7:00 PM
[2023-03-06 19:02] LABS: Basophils # (auto) 0.11 K/uL (0-0.2); Basophils % (auto) 0.9 %; Eosinophils # (auto) 0.54 K/uL (0-0.50); Eosinophils % (auto) 4.4 %; Hemoglobin 12.3 g/dl (14.0-18.0); Immature Granulocytes # (auto) 0.03 K/uL (0.01-0.20); Immature Granulocytes % (auto) 0.2 %; Lymphocytes % (auto) 8.2 %; Mean Corpuscular Hemoglobin 30.3 pg (25.0-34.0); Mean Corpuscular Hgb Conc 33.2 g/dL (32.0-36.0); Mean Corpuscular Volume 91.1 fL (80.0-100.0); Mean Platelet Volume 11.2 fL (9.4-12.4); Monocytes # (auto) 0.91 K/uL (0.11-0.59); Monocytes % (auto) 7.4 %; Neutrophils # (auto) 9.64 K/uL (1.40-6.50); Neutrophils % (auto) 78.9 %; Platelet Count 223 K/uL (130-400); RDW Coefficient of Variation 14.4 % (11.5-14.5); RDW Standard Deviation 47.7 fL (36.4-46.3); Red Blood Count 4.06 M/uL (4.70-6.10); White Blood Count 12.23 K/ul (4.8-10.8)
[2023-03-06 20:06] LABS: Adenovirus PCR Not Detected (NotDetected); Bordetella parapertussis PCR Not Detected (NotDetected); Bordetella pertussis PCR Not Detected (NotDetected); Chlamydia pneumoniae PCR Not Detected (NotDetected); Coronavirus 229E PCR Not Detected (NotDetected); Coronavirus CoV-2 (COVID19)PCR Not Detected (NotDetected); Coronavirus HKU1 PCR Not Detected (NotDetected); Coronavirus NL63 PCR Not Detected (NotDetected); Coronavirus OC43PCR Not Detected (NotDetected); Human Metapneumovirus PCR Not Detected (NotDetected); Influenza A PCR Not Detected (NotDetected); Influenza B PCR Not Detected (NotDetected); Mycoplasma pneumoniae PCR Not Detected (NotDetected); Parainfluenza Virus 1 PCR Not Detected (NotDetected); Parainfluenza Virus 2 PCR Not Detected (NotDetected); Parainfluenza Virus 3 PCR Not Detected (NotDetected); Parainfluenza Virus 4 PCR Not Detected (NotDetected); Respiratory Syncytial VirusPCR Not Detected (NotDetected)
[2023-03-06 20:07] LABS: Albumin Globulin Ratio 0.9 (0.9-2); Albumin Level 3.7 gm/dl (3.4-5.0); BUN Creatinine Ratio 23.1 (10-20); Bilirubin,Total 0.6 mg/dl (0.2-1.0); Calcium 9.5 mg/dl (8.6-10.3); Creatinine Clr Calc Pharmacy 30.4 ml/min; Est GFR (Non-African American) 29.3 ml/min; Globulin 4.3 gm/dl (2.5-4.0); Potassium 4.9 mmol/L (3.5-5.1)
[2023-03-06 20:08] LABS: Rhinovirus/Enterovirus PCR DETECTED (NotDetected)
[2023-03-06] MEDS ORDERED: FUROSEMIDE INJ 20 MG/2 ML VIAL IV ONE (20:11)
[2023-03-06] MEDS ORDERED: DOXYCYCLINE HYCLATE 100 MG CAP PO STA (20:11)
[2023-03-06] MEDS ORDERED: ACETAMINOPHEN 325 MG TAB PO STA (20:36)
[2023-03-06 21:08] LABS: INR 1.1 (0.9-1.1); Partial Thromboplastin Time 27.9 Seconds (21.0-31.0); Prothrombin Time 11.5 Seconds (9.0-12.0)
[2023-03-06 21:35] LABS: Base Excess ABG 0.8 mEq/L (-9-1.8); HCO3 ABG 24 mmol/L (19-24); Oxygen Saturation ABG 99.6 % (90-95); PCO2 ABG 33 mmHg (35-46); PO2 ABG 95 mmHg (80-95); pH ABG 7.47 (7.35-7.45)
[2023-03-06 21:40] LABS: Allen Test Pos (Pos)
[2023-03-06 21:44] LABS: Hemoglobin 12.4 g/dl (14.0-18.0)
[2023-03-06] MEDS ORDERED: ALBUMIN 25% 25 GM/100 ML VIAL IV ONE (21:47)
[2023-03-06] MEDS ORDERED: FUROSEMIDE 40 MG/4 ML VIAL IV ONE (21:47)
[2023-03-06 21:50] LABS: Thyroid Stimulating Hormone 5.207 uIu/ml (0.300-4.500)
--- NOTE | 2023-03-06 21:50 | History & Physical Report ---
Date of Service March 06, 2023 Assessment & Plan (1) Acute hypoxemic respiratory failure: Plan: Acute on chronic multifactorial: Decompensated heart failure, history diastolic dysfunction COPD/ILD exacerbation secondary to enterovirus infection, possible aspiration pneumonia given patient concerns of worsening cough symptoms in the supine position/uncontrolled GERD, possible sepsis hypertension, currently stable hyperlipidemia on statin Rx ARF on CKD secondary to illness chronic anemia, hemoglobin at baseline prostate cancer status post radiation Hyperglycemia rule out DM past tobacco abuse PCU Supplemental O2 Baseline ABG Lasix appropriately dosed for currently renal function along with albumin now Monitor renal function, renal ultrasound if with worsening strict I/Os, daily weights, CHF education TTE, cardiology consult Re: CHF Subsequent diuretic dosing as per cardiology. CS, Zosyn for possible aspiration pneumonia Nebs RTC, steroid course Pulmonary consult Re: Respiratory failure, multilobar pneumonia Aspiration precautions, swallow eval Increase PPI to twice daily dosing uncontrolled GERD Check hemoglobin A1c DVT prophylaxis with heparin subcu Full code Total critical care time was 40 minutes. Text document was generated using [employer] voice recognition software. It may contain grammatical or spelling errors. Kindly contact undersigned for clarification of any documentation item in question. History of Present Illness Chief Complaint: Cough, worsening shortness of breath Primary Care Provider: Ben Cisneros MD History obtained from patient and records. 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 Patient noted worsening junky cough symptoms over the last few months. Patient not sure about aspiration but cough worse when lying flat on his back. Patient attributes worsening cough symptoms from COVID-[address] chest September 2022 showed no interval pneumonia. Unchanged multiple pulmonary micronodules. 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 Aspergillus versicolor also noted. Consider bronchoscopy for underlying infection but has not been treated if with further symptoms as per outpatient pulmonology. Patient's symptoms attributed by lung disorder and heart failure as per outpatient pulmonology note last November 2022. Patient prescribed by PCP Augmentin and prednisone course for worsening symptoms 3 weeks ago. Patient's [facility] outpatient pulmonology appointment canceled. Protonix added to patient's Pepcid for uncontrolled GERD after office visit. Elevated dimer and BNP on outpatient blood work. Outpatient CT chest 2 weeks ago did not show pulmonary embolus. New trace bilateral pleural effusions noted without significant pulmonary edema. Stable interstitial lung disease. Patient prescribed Lasix by PCP for for CHF. Worsening shortness of breath, leg swelling up to the ankles and central chest discomfort attributed by patient to uncontrolled GERD. No actual belly pain. No actual weight gain as per patient. Patient complaining of left leg pain for a few months now. O2 sats noted to be 80s upon EMS arrival at patient's home. Patient received Doxycycline, Solu-Medrol, neb treatment, and Lasix at the ER. 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 Allergies Allergy/AdvReac Type Severity Reaction Status Date / Time No Known Allergies Allergy Verified 03/06/23 19:40 Home Medications Medication Instructions Recorded Confirmed Type aspirin 81 mg tablet,delayed 81 mg PO DAILY 05/21/19 03/06/23 History release meloxicam 15 mg tablet 15 mg PO DAILY 05/21/19 03/06/23 History tamsulosin 0.4 mg capsule 0.8 mg PO DAILY 05/21/19 03/06/23 History triamcinolone acetonide 0.1 % 1 applic topical BID PRN Skin 05/21/19 03/06/23 History topical ointment Irritation multivitamin-ferrous 1 tab PO DAILY 05/22/19 03/06/23 History fumarate-folic acid 18 mg-400 mcg tablet (Centrum Complete) fluticasone propionate 50 2 sprays intranasal DAILY #16 grams 11/29/19 03/06/23 Rx mcg/actuation nasal spray,suspension carvedilol 12.5 mg tablet 12.5 mg PO BID 05/26/20 03/06/23 History citalopram 10 mg tablet 10 mg PO QAM 03/06/23 03/06/23 History cyanocobalamin (vitamin B-12) 100 100 mcg PO DAILY 03/06/23 03/06/23 History mcg tablet (Vitamin B-12) famotidine 20 mg tablet 20 mg PO HS 03/06/23 03/06/23 History furosemide 40 mg tablet (Lasix) 40 mg PO QAM 03/06/23 03/06/23 History guaifenesin 600 mg tablet, 600 mg PO Q12H PRN COUGH/CONGESTION 03/06/23 03/06/23 History extended release 12 hr ipratropium bromide 17 2 puff inhalation QID 03/06/23 03/06/23 History mcg/actuation HFA aerosol inhaler (Atrovent HFA) irbesartan 75 mg tablet 75 mg PO DAILY 03/06/23 03/06/23 History loratadine 10 mg tablet (Claritin) 10 mg PO DAILY 03/06/23 03/06/23 History pantoprazole 20 mg tablet,delayed 20 mg PO DAILYBB 03/06/23 03/06/23 History release salmeterol 50 mcg/dose blister 1 inh inhalation BID 03/06/23 03/06/23 History powder for inhalation (Serevent Diskus) sodium chloride 0.65 % nasal spray 1 spray intranasal BID PRN NASAL 03/06/23 03/06/23 History aerosol (Saline Nasal) DRYNESS Past Med/Surg History Medical History (Updated 03/07/23 @ 01:03 by Alban Stone MD) Asthma Cough Dizziness Surgical History (Updated 05/21/19 @ 16:38 by Jaye Hanley) H/O shoulder surgery History of appendectomy Social History (Updated 05/21/19 @ 16:38 by Jaye Hanley) Smoking Status: Never smoker Second Hand Exposure: No; Do You Dip or Chew Tobacco: No; Tobacco Cessation Education Requested by Patient: No Hx Alcohol Use: No Hx Substance Use: No Communication Ability: Effective Beliefs That Will Affect Care: None marital status: / Current Living Situation: Alone Other Information That Helps Us Care for You: No Feels Safe at Home: Yes Safety Concerns: Feels Safe At This Time Assistive Devices: None Review of Systems Review of Systems: As per HPI, all other systems reviewed and negative Physical Exam Physical Exam: GENERAL: uncomfortable, pleasant, minimal respiratory distress SKIN: Pallor, warm HEENT: Bespectacled, pale palpebral conjunctivae, no ptosis, dry buccal mucosa, nasal cannula in place NECK : Supple, no tenderness CHEST : Decreased breath sounds, no tenderness HEART : RRR, no obvious murmurs ABDOMEN: Some distention, nontender EXTREMITIES : Minimal LE swelling, no LE tenderness, no other conspicuous deformities noted NEUROLOGIC : Coherent, no facial asymmetry, no other gross focality Results & Data Results & Data Vital Signs (Past 12 Hours) Vital Signs Temp Pulse Pulse Resp BP BP Pulse Ox 03/06/23 20:00 94 H 29 H 135/82 98 03/06/23 19:30 97 H 22 139/85 98 03/06/23 19:00 97 H 25 H 148/94 H 100 03/06/23 18:30 99 H 28 H 144/93 H 100 03/06/23 18:22 97 H 30 H 99 03/06/23 18:28 101 H 03/06/23 18:27 99 H 30 H 96 03/06/23 18:27 03/06/23 18:27 03/06/23 18:27 99 H 30 H 142/85 H 86 L 03/06/23 18:27 37.8 C H 99 H 30 H 142/85 H 86 L O2 Del Method O2 Flow Rate 03/06/23 20:00 Room Air 03/06/23 19:30 Nasal Cannula 4 03/06/23 19:00 Nasal Cannula 4 03/06/23 18:30 Nasal Cannula 4 03/06/23 18:22 Nasal Cannula 4 03/06/23 18:28 03/06/23 18:27 Nasal Cannula 4 03/06/23 18:27 Nasal Cannula 4 03/06/23 18:27 Room Air 03/06/23 18:27 Room Air 03/06/23 18:27 Room Air Laboratory Results Laboratory Results WBC 12.23 K/ul (4.8-10.8) H 03/06/23 18:27 RBC 4.06 M/uL (4.70-6.10) L 03/06/23 18:27 Hgb 12.4 g/dl (14.0-18.0) L 03/06/23 21:22 Hct 37.0 % (42.0-52.0) L 03/06/23 21: MCV 91.1 fL (80.0-100.0) 03/06/23 18: MCH 30.3 pg (25.0-34.0) 03/06/23 18: MCHC 33.2 g/dL (32.0-36.0) 03/06/23 18: RDW Std Deviation 47.7 fL (36.4-46.3) H 03/06/23 18: RDW Coeff of Nehemias 14.4 % (11.5-14.5) 03/06/23 18: Plt Count 223 K/uL (130-400) 03/06/23 18: MPV 11.2 fL (9.4-12.4) 03/06/23 18: Immature Gran % (Auto) 0.2 % 03/06/23 18: Neut % (Auto) 78.9 % 03/06/23 18: Lymph % (Auto) 8.2 % 03/06/23 18: [place] % (Auto) 7.4 % 03/06/23 18: Eos % (Auto) 4.4 % 03/06/23 18: Baso % (Auto) 0.9 % 03/06/23 18: Neut # (Auto) 9.64 K/uL (1.40-6.50) H 03/06/23 18: Lymph # (Auto) 1.00 K/uL (1.2-3.4) L 03/06/23 18: [place] # (Auto) 0.91 K/uL (0.11-0.59) H 03/06/23 18: Eos # (Auto) 0.54 K/uL (0-0.50) H 03/06/23 18: Baso # (Auto) 0.11 K/uL (0-0.2) 03/06/23 18: Immature Gran # (Auto) 0.03 K/uL (0.01-0.20) 03/06/23 18: PT 11.5 Seconds (9.0-12.0) 03/06/23 19:36 INR 1.1 (0.9-1.1) 03/06/23 19: APTT 27.9 Seconds (21.0-31.0) 03/06/23 19:36 PTT Ratio 1.0 03/06/23 19:36 ABG pH 7.47 (7.35-7.45) H 03/06/23 21:22 ABG pCO2 33 mmHg (35-46) L 03/06/23 21:22 ABG pO2 95 mmHg (80-95) 03/06/23 21:22 ABG HCO3 24 mmol/L (19-24) 03/06/23 21:22 ABG O2 Saturation 99.6 % (90-95) H 03/06/23 21:22 ABG Base Excess 0.8 mEq/L (-9-1.8) 03/06/23 21:22 Claudio Test Pos (Pos) 03/06/23 21:22 Oxygen Given 4L 03/06/23 21:22 Sodium 134 mmol/L (136-145) L 03/06/23 19:34 Potassium 4.9 mmol/L (3.5-5.1) 03/06/23 19:34 Chloride 103 mmol/L (98-107) 03/06/23 19:34 Carbon Dioxide 26 mmol/L (21-32) 03/06/23 19:34 Anion Gap 5 (3-11) 03/06/23 19:34 BUN 46 mg/dl (6-23) H 03/06/23 19:34 Creatinine 1.99 mg/dl (0.6-1.4) H 03/06/23 19:34 Est Cr Clr Drug Dosing 30.4 ml/min 03/06/23 19:34 Est GFR ( Amer) 34.0 ml/min 03/06/23 19:34 Est GFR (Non-Af Amer) 29.3 ml/min 03/06/23 19:34 BUN/Creatinine Ratio 23.1 (10-20) H 03/06/23 19:34 Glucose 160 mg/dl (70-99(Fasting)) H 03/06/23 19:34 Lactate 1.2 mmol/L (0.4-2.0) 03/06/23 19:33 Calcium 9.5 mg/dl (8.6-10.3) 03/06/23 19:34 Magnesium 2.0 mg/dl (1.7-2.4) 03/06/23 19:34 Total Bilirubin 0.6 mg/dl (0.2-1.0) 03/06/23 19:34 AST 18 U/L (13-39) 03/06/23 19:34 ALT 24 U/L (7-52) 03/06/23 19:34 Alkaline Phosphatase 120 U/L (34-104) H 03/06/23 19:34 Troponin I High Sens 135.4 pg/ml (0-20) H* 03/06/23 18:27 B-Natriuretic Peptide 1691 pg/ml (0-100) H 03/06/23 18:28 Total Protein 8.0 gm/dl (6.0-8.3) 03/06/23 19:34 Albumin 3.7 gm/dl (3.4-5.0) 03/06/23 19:34 Globulin 4.3 gm/dl (2.5-4.0) H 03/06/23 19:34 Albumin/Globulin Ratio 0.9 (0.9-2) 03/06/23 19:34 Procalcitonin 0.05 ng/ml (0-0.5) 03/06/23 19:33 Adenovirus (PCR) Not Detected (NotDetected) 03/06/23 18:44 B. pertussis DNA (PCR) Not Detected (NotDetected) 03/06/23 18:44 B.parapertussis DNA PCR Not Detected (NotDetected) 03/06/23 18:44 C. pneumoniae DNA (PCR) Not Detected (NotDetected) 03/06/23 18:44 Coronavirus OC43 (PCR) Not Detected (NotDetected) 03/06/23 18:44 Coronavirus HKU1 (PCR) Not Detected (NotDetected) 03/06/23 18:44 Coronavirus 229E (PCR) Not Detected (NotDetected) 03/06/23 18:44 SARS-CoV-2 (PCR) Not Detected (NotDetected) 03/06/23 18:44 Coronavirus NL63 (PCR) Not Detected (NotDetected) 03/06/23 18:44 Human Metapneumovir PCR Not Detected (NotDetected) 03/06/23 18:44 Influenza Type A (PCR) Not Detected (NotDetected) 03/06/23 18:44 Influenza Type B (PCR) Not Detected (NotDetected) 03/06/23 18:44 M. pneumoniae (PCR) Not Detected (NotDetected) 03/06/23 18:44 Parainfluenza 1 (PCR) Not Detected (NotDetected) 03/06/23 18:44 Parainfluenza 2 (PCR) Not Detected (NotDetected) 03/06/23 18:44 Parainfluenza 3 (PCR) Not Detected (NotDetected) 03/06/23 18:44 Parainfluenza 4 (PCR) Not Detected (NotDetected) 03/06/23 18:44 RSV (PCR) Not Detected (NotDetected) 03/06/23 18:44 Entero/Rhino (PCR) DETECTED (NotDetected) A* 03/06/23 18:44 Impressions Chest X-Ray 03/06/23 18:27 SINGLE VIEW CHEST CLINICAL HISTORY: Dyspnea FINDINGS: An AP, portable, upright chest radiograph is compared to study dated 05/26/2020 and correlated with chest CT dated 06/29/2019. The heart is enlarged noting atherosclerotic calcification of the thoracic aorta. There is pulmonary vascular congestion. Bilateral airspace opacities likely represents pulmonary edema. There are small pleural effusions with dependent consolidation. No pneumothorax is seen. The skeletal structures are osteopenic. The bony thorax is grossly intact. IMPRESSION: 1. Cardiomegaly with evidence of congestive failure. 2. Bilateral airspace opacities likely represents pulmonary edema. Correlate clinically. 3. Small pleural effusions with dependent consolidation. ACT 112: Negative or not required by law. Electronically signed by: Margarito Skinner M.D. 03/06/2023 7:[address] chest: 1. There are small layering pleural effusions and diffuse interstitial thickening suggesting underlying pulmonary edema. 2. Bronchial wall thickening with confluent peribronchial opacities in the dependent lingula, right middle lobe, and both lower lobes, potentially pneumonia. 3. There are widespread bilateral micronodular opacities not significantly changed from 2019. Considerations include lung disease due to inorganic mineral dust inhalation (e.g. silicosis), disseminated fungal or mycobacterial infection, and sarcoidosis. Irrespective of cause, appearance is stable and not progressive. Correlate with clinical history. Diagnostic Findings EKG as per my interpretation :Rate 95, NSR, normal axis, septal infarct, T wave abnormalities lateral leads
[2023-03-06 22:32] LABS: T4 Free Thyroxine 1.15 ng/dl (0.61-1.60)
--- NOTE | 2023-03-06 23:29 | CT Scan Report ---
Exam(s): CT CHEST Without Contrast EXAM: CT Chest Without Intravenous Contrast CLINICAL HISTORY: Reason for exam: worsening cough. TECHNIQUE: Axial computed tomography images of the chest without intravenous contrast. Automated exposure control was utilized for the study. A dose lowering technique was utilized adhering to the principles of ALARA. COMPARISON: CT chest 06/21/19, report unavailable. FINDINGS: Lungs: Diffuse bilateral micronodular opacities are similar to prior exam. Bronchial wall thickening with confluent peribronchial opacities in the dependent lingula, right middle lobe, and both lower lobes. Pleural space: Small layering bilateral pleural effusions. No pneumothorax. Heart: Coronary artery atherosclerosis. Normal heart size. Trace pericardial effusion. Bones/joints: Unremarkable. No acute fracture or dislocation. Soft tissues: Unremarkable. Vasculature: Thoracic aortic atherosclerosis without aneurysm. Normal caliber main pulmonary artery. Lymph nodes: Unremarkable. No mediastinal, hilar, or axillary lymphadenopathy. Other findings: Septal thickening. IMPRESSION: 1. There are small layering pleural effusions and diffuse interstitial thickening suggesting underlying pulmonary edema. 2. Bronchial wall thickening with confluent peribronchial opacities in the dependent lingula, right middle lobe, and both lower lobes, potentially pneumonia. 3. There are widespread bilateral micronodular opacities not significantly changed from 2019. Considerations include lung disease due to inorganic mineral dust inhalation (e.g. silicosis), disseminated fungal or mycobacterial infection, and sarcoidosis. Irrespective of cause, appearance is stable and not progressive. Correlate with clinical history. Electronically signed by: Jo Wright M.D. 03/06/23 23:28 PM
--- NOTE | 2023-03-06 23:31 | Ultrasound Report ---
Exam(s): US VENOUS LEFT LOWER EXTREMITY EXAM: US Duplex Left Lower Extremity Veins CLINICAL HISTORY: Reason for exam: LLE pain. TECHNIQUE: Real-time duplex ultrasound scan of the left lower extremity veins integrating B-mode two-dimensional vascular structure, Doppler spectral analysis, color flow Doppler imaging and compression. COMPARISON: No relevant prior studies available. FINDINGS: Deep veins: Unremarkable. No DVT in the visualized common femoral, femoral, proximal deep femoral or popliteal veins. The veins demonstrate normal color flow, are normally compressible, with normal phasic flow and/or augmentation response. Superficial veins: Unremarkable. No thrombus in the visualized great saphenous vein. Soft tissues: Mild subcutaneous edema. IMPRESSION: No evidence of acute DVT. Electronically signed by: Jo Wright M.D. 03/06/23 23:30 PM
[2023-03-06] MEDS ORDERED: CEFEPIME 2,000 MG/20 ML VIAL IV STA (23:35)
[2023-03-06] MEDS ORDERED: FAMOTIDINE 20 MG TAB PO SCH (23:48)
[2023-03-06] MEDS ORDERED: SODIUM CHLORIDE 0.65% NA SOLN 45 ML (OCEAN) PRN (23:48)
[2023-03-06] MEDS ORDERED: PROMETHAZINE HCL 6.25 MG in SODIUM CHLORIDE 0.9% 50 ML IV PRN (23:48)
[2023-03-06] MEDS ORDERED: traMADol HCL 50 MG TABLET PO PRN (23:48)
[2023-03-06] MEDS ORDERED: ACETAMINOPHEN 325 MG TAB PO PRN (23:48)
[2023-03-07] MEDS: LEVALBUTEROL 1.25 MG/3 ML NEB NEB SCH ×4 (00:21→19:16)
[2023-03-07] MEDS: IPRATROPIUM BROMIDE NEB SOLN 0.02% 2.5 ML VIAL INH SCH ×4 (00:21→19:16)
[2023-03-07] MEDS: HEPARIN SOD 5,000 UNIT/0.5 ML VIAL SQ SCH ×4 (00:49→21:03)
[2023-03-07] MEDS ORDERED: PIPERACILLIN/TAZOBACTAM 4.5 GM in DEXTROSE 5% 100 ML IV STA (00:49)
[2023-03-07] MEDS ORDERED: PIPERACILLIN/TAZOBACTAM 4.5 GM in DEXTROSE 5% 100 ML IV SCH (01:00)
[2023-03-07] MEDS ORDERED: XOPENEX/ATROVENT 1.25mg/0.5MG NEB COMBO NEB SCH (01:00)
[2023-03-07 03:38] LABS: Appearance Urine Clear (Clear); Bilirubin Urine Negative (Negative); Blood Urine Negative (Negative); Color Urine Yellow; Glucose Urine UA Negative (Negative); Ketones Urine Negative (Negative); Leukocyte Esterase Urine Negative (Negative); Nitrite Urine Negative (Negative); Protein Urine Negative (Negative); Urobilinogen Urine Negative (Negative)
[2023-03-07] MEDS: PIPERACILLIN/TAZOBACTAM 4.5 GM in DEXTROSE 5% 100 ML IV SCH ×2 (06:19→13:06)
[2023-03-07] MEDS ORDERED: PANTOprazole 40 MG TAB PO SCH (06:30)
--- NOTE | 2023-03-07 08:30 | Cardiology Consultation ---
Date of Consultation March 07, 2023 Assessment & Plan (1) Acute systolic CHF (congestive heart failure): (2) Acute hypoxemic respiratory failure: (3) 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, coal, workers': Plan IMPRESSION: Medically complex 87 year old male with prior history of ILD/yarn skeins examiner's pneumoconiosis who presented with hypoxic respiratory failure secondary to pneumonia and volume overload. Echo pending- preliminary read showing LV dysfunction. 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 HS trop elevated. CXR/Chest CT with evidence of Pulmonary disease with pleural effusions. Known CKD with stable elevated scr and improvement in hyponatremia after receiving IV Lasix. PLAN: -Patient appears hypervolemic on exam. Will give additional 40 mg IV Lasix this am. BMP tomorrow am. -GDMT titration limited due to renal dysfunction. Continue Coreg as ordered- consider increase in dose pending clinic course. -Patient would be a poor candidate for cardiac cath given renal disease. Co ntinue medical management with ASA 81 mg daily. -Continue with pulmonary toileting, Supplemental o2 as needed, IV antibiotics for pneumonia. Pulmonary on board. -Further recommendations pending finalized echo results. Case discussed with Dr. Urena, will follow. Supervising Physician Co-Signing Physician Notes Patient was seen and personally examined. Inpatient as well as prior outpatient records reviewed. 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 No prior history of cardiac disease per patient. Outpatient laboratory studies reflect elevated BNP on 02/14/2023, symptoms of severe dyspnea and orthopnea as well as increasing edema over week in duration. Ultimately sought hospital evaluation due to significant dyspnea. Patient has improved this morning with diuresis but still with volume overloaded on physical examination EKG is without acute changes with old septal infarct present on prior studies Troponin elevated though without evolution with evaluation the setting of chronic renal insufficiency. 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 Echocardiogram reflects moderate left dysfunction question ischemic heart disease versus apical ballooning cardiomyopathy. Patient on guideline directed medical therapies already with carvedilol, ARB, aspirin. We will add lipid-lowering therapy We will continue diuretics cautiously given her underlying renal disease. If renal function declines further would consider discontinuing ARB with change to hydralazine/nitrate Current findings do not suggest an acute ischemic event though subacute presentation not completely excluded Would not proceed with diagnostic coronary angiography given current renal insufficiency, marked difficulties with orthopnea cough, hemodynamic stability Appreciate pulmonary recommendations History of Present Illness Reason for Consultation: Hypoxic respiratory failure CHF- volume overload Requesting Physician: Dionicio Pulliam Attending Physician: Marzena De MD History of Present Illness Medically complex 87 year old male who presented to the [facility] ED due to worsening productive rhonchorous cough, shortness of breath, and lower extremity edema x2- 3 weeks Upon arrival patient was hypoxic with SPO2 in the 80s. Started on supplemental o2 therapy. Normally wears O2 at night only. Treated with doxycycline, Solu-Medrol, neb treatment, and Lasix 20 mg IV in the ED. Received an addition 40 mg IV Lasix on the floor. Recently seen by PCP in January with worsening cough. Was treated for COPD exacerbation with Augmentin and prednisone. BNP was elevated- lasix 40 mg daily was started (02/21). D-Dimer elevated- outpatient CTA of the chest without evidence of PE, but did show new trace bilateral pleural effusions without significant pulmonary edema and stable ILD. Blood work this admission: elevated WBC, hemoglobin of 12, mild hyponatremia (134), scr of 1.99, HS trop 135.4 >>133.6, BNP 1691, TSH 5.2 (H) with normal Free T4 CXR 03/06: 1. Cardiomegaly with evidence of congestive failure. 2. Bilateral airspace opacities likely represents pulmonary edema. Correlate clinically. 3. Small pleural effusions with dependent consolidation. Chest CT 03/06: 1. There are small layering pleural effusions and diffuse interstitial thickening suggesting underlying pulmonary edema. 2. Bronchial wall thickening with confluent peribronchial opacities in the dependent lingula, right middle lobe, and both lower lobes, potentially pneumonia. 3. There are widespread bilateral micronodular opacities not significantly changed from 2019 Venous dopplers: No evidence of DVT Echo: PENDING, preliminary read showing LV systolic dysfunction 03/07: I&O: -280 mL Weight: 90.8 kg >> 87.6 kg Tele: SR 60-80s Upon entrance into the room patient resting in bed. Son, Branden, at bedside. Feels slightly improved since day of admission- continues to have a rhonchorous productive cough. Wearing supplemental o2 (2L via NC). +wheezing. +shortness of breath at rest. Notes orthopnea if HOB is lowered. +Abdominal bloating +Leg swelling persists, +2 BL R>L No chest pain or palpitations. Mentioned worsening GERD-like symptoms. Denies dizziness or lightheadedness. Denies a history of CAD. Mentioned a possible prior stroke that affected his left eye vision. Past Medical History: Hypertension CKD, baseline scr ~1.7 ILD/COPD- follows with pulmonary Lung nodules, coal workers pneumoconiosis with chronic cough SERENA GERD Chronic back pain Allergies Allergy/AdvReac Type Severity Reaction Status Date / Time No Known Allergies Allergy Verified 03/06/23 19:40 Home Medications Medication Instructions Recorded Confirmed Type aspirin 81 mg tablet,delayed 81 mg PO DAILY 05/21/19 03/06/23 History release meloxicam 15 mg tablet 15 mg PO DAILY 05/21/19 03/06/23 History tamsulosin 0.4 mg capsule 0.8 mg PO DAILY 05/21/19 03/06/23 History triamcinolone acetonide 0.1 % 1 applic topical BID PRN Skin 05/21/19 03/06/23 History topical ointment Irritation multivitamin-ferrous 1 tab PO DAILY 05/22/19 03/06/23 History fumarate-folic acid 18 mg-400 mcg tablet (Centrum Complete) fluticasone propionate 50 2 sprays intranasal DAILY #16 grams 11/29/19 03/06/23 Rx mcg/actuation nasal spray,suspension carvedilol 12.5 mg tablet 12.5 mg PO BID 05/26/20 03/06/23 History citalopram 10 mg tablet 10 mg PO QAM 03/06/23 03/06/23 History cyanocobalamin (vitamin B-12) 100 100 mcg PO DAILY 03/06/23 03/06/23 History mcg tablet (Vitamin B-12) famotidine 20 mg tablet 20 mg PO HS 03/06/23 03/06/23 History furosemide 40 mg tablet (Lasix) 40 mg PO QAM 03/06/23 03/06/23 History guaifenesin 600 mg tablet, 600 mg PO Q12H PRN COUGH/CONGESTION 03/06/23 03/06/23 History extended release 12 hr ipratropium bromide 17 2 puff inhalation QID 03/06/23 03/06/23 History mcg/actuation HFA aerosol inhaler (Atrovent HFA) irbesartan 75 mg tablet 75 mg PO DAILY 03/06/23 03/06/23 History loratadine 10 mg tablet (Claritin) 10 mg PO DAILY 03/06/23 03/06/23 History pantoprazole 20 mg tablet,delayed 20 mg PO DAILYBB 03/06/23 03/06/23 History release salmeterol 50 mcg/dose blister 1 inh inhalation BID 03/06/23 03/06/23 History powder for inhalation (Serevent Diskus) sodium chloride 0.65 % nasal spray 1 spray intranasal BID PRN NASAL 03/06/23 03/06/23 History aerosol (Saline Nasal) DRYNESS Patient History Medical History Asthma Cough Dizziness Surgical History H/O shoulder surgery History of appendectomy Social History Smoking Status: Never smoker Second Hand Exposure: No; Do You Dip or Chew Tobacco: No; Tobacco Cessation Education Requested by Patient: No Hx Alcohol Use: No Hx Substance Use: No Communication Ability: Effective Beliefs That Will Affect Care: None marital status: / Current Living Situation: Alone Other Information That Helps Us Care for You: No Feels Safe at Home: Yes Safety Concerns: Feels Safe At This Time Assistive Devices: None Review of Systems Review of Systems: All systems reviewed & are unremarkable except as noted in HPI & below Physical Exam Constitutional: WD/WN, vitals as above no acute distress Eyes: PERRL, conjunctivae normal, anicteric sclerae ENMT: external ear and nose normal, oropharynx normal Neck: normal visual inspection and trachea midline Respiratory: + labored breathing, + cough (productive ) and + audible wheezes Auscultation: + rales, + rhonchi, + wheezes and + bronchovesicular breath sounds Cardiovascular: Rate/Rhythm: regular rate and regular rhythm Heart Sounds: normal S1 and normal S2 Vessels: + JVD Extremities: + edema (+2 BL, R>L) Gastrointestinal (Abdomen): Inspection/Auscultation: + abdomen distended Percussion/Palpation: + abdomen firm; abdomen nontender Musculoskeletal: no cyanosis or clubbing, extremities motor strength 5/5 Skin: no rashes, warm and dry Psychiatric: A+Ox3, euthymic affect Results & Data Vital Signs (Past 12 Hours) Vital Signs Temp Pulse Pulse Resp BP BP Pulse Ox 03/07/23 08:00 36.9 C 88 20 125/73 97 03/07/23 08:13 78 18 98 03/07/23 00:00 91 H 03/07/23 02:56 36.7 C 71 18 111/67 97 03/07/23 00:22 87 18 97 03/06/23 23:44 36.6 C 90 22 108/60 97 03/06/23 22:00 87 21 135/80 96 03/06/23 21:31 98 H 23 130/85 94 03/06/23 21:00 89 16 139/84 96 03/06/23 20:30 91 H 22 137/86 97 O2 Del Method O2 Flow Rate 03/07/23 08:00 Room Air 03/07/23 08:13 Nasal Cannula 2 03/07/23 00:00 03/07/23 02:56 Nasal Cannula 03/07/23 00:22 Nasal Cannula 3 03/06/23 23:44 Nasal Cannula 3 03/06/23 22:00 Nasal Cannula 2 03/06/23 21:31 Nasal Cannula 2 03/06/23 21:00 Nasal Cannula 2 03/06/23 20:30 Nasal Cannula 4 Laboratory Results Cardiac Enzymes 03/06/23 03/06/23 03/06/23 Range/Units 18:27 18:28 19:34 AST Cancelled 18 Troponin I High Sens 135.4 H* (0-20) pg/ml B-Natriuretic Peptide 1691 H (0-100) pg/ml 03/06/23 Range/Units 21:22 AST Troponin I High Sens 133.6 H* (0-20) pg/ml B-Natriuretic Peptide (0-100) pg/ml Coagulation 03/06/23 03/06/2323 Range/Units 18:28 18:28 19:36 PT Cancelled 11.5 APTT Cancelled 27.9 B-Natriuretic Peptide 1691 H (0-100) pg/ml CBC 03/06/23 03/06/23 03/07/23 Range/Units 18:27 21:22 08:47 WBC 12.23 H 8.82 (4.8-10.8) K/ul RBC 4.06 L 3.65 L (4.70-6.10) M/uL Hgb 12.3 L 12.4 L 11.1 L (14.0-18.0) g/dl Hct 37.0 L 37.0 L 33.4 L (42.0-52.0) % Plt Count 223 196 (130-400) K/uL Neut # (Auto) 9.64 H 6.59 H (1.40-6.50) K/uL Lymph # (Auto) 1.00 L 0.89 L (1.2-3.4) K/uL O[place]ley # (Auto) 0.91 H 0.67 H (0.11-0.59) K/uL Eos # (Auto) 0.54 H 0.53 H (0-0.50) K/uL Baso # (Auto) 0.11 0.12 (0-0.2) K/uL Comprehensive Metabolic Panel 03/06/23 03/06/23 03/07/23 Range/Units 18:27 19:34 08:47 Sodium Cancelled 134 L 137 Potassium Cancelled 4.9 4.4 Chloride Cancelled 103 102 Carbon Dioxide Cancelled 26 28 BUN Cancelled 46 H 49 H Creatinine Cancelled 1.99 H 2.01 H Glucose Cancelled 160 H 142 H Calcium Cancelled 9.5 9.2 AST Cancelled 18 ALT Cancelled 24 Alkaline Phosphatase Cancelled 120 H Total Protein Cancelled 8.0 Albumin Cancelled 3.7 Intake and Output 03/06/23 03/07/23 03/07/23 22:59 06:59 14:59 Intake Total 320 / 320 Output Total 600 / 600 Balance -280 / -280 Intake: IV 220 / 220 Albumin 25% 25 gm In 100 ml @ 100 / 100 50 mls/hr IV ONE ONE Rx#: [id number] Piperacillin/Tazobactam 4.5 gm 120 / 120 In Dextrose 5% 100 ml @ 240 mls /hr IV NOW STA Rx#:[id number] Oral 100 / 100 Output: Urine 600 / 600 Other: # Unmeasured Voids 1 Weight 90.8 kg 87.6 kg Weight Measurement Method Built in [facility] Standing Scale
[2023-03-07] MEDS: CITALOPRAM 20 MG TAB PO SCH (08:31)
[2023-03-07] MEDS: carvediloL 12.5 MG TAB PO SCH ×2 (08:31→17:39)
[2023-03-07] MEDS: CYANOCOBALAMIN (B-12) 100 MCG TABLET PO SCH (08:32)
[2023-03-07] MEDS: PANTOprazole 40 MG TAB PO SCH ×2 (08:32→21:03)
[2023-03-07] MEDS: LORATADINE 10 MG TAB PO SCH (08:32)
[2023-03-07] MEDS: CEROVITE ADV FORMULA TAB PO SCH (08:32)
[2023-03-07] MEDS: TAMSULOSIN HCL 0.4 MG CAP PO SCH (08:33)
[2023-03-07] MEDS: FLUTICASONE PROPIONATE NA SPR 16 GM BTL SCH (08:35)
[2023-03-07] MEDS ORDERED: DOXYCYCLINE HYCLATE 100 MG CAP PO SCH (09:00)
[2023-03-07] MEDS ORDERED: predniSONE 20 MG TAB PO SCH ×2 (09:00)
[2023-03-07 09:02] LABS: Basophils # (auto) 0.12 K/uL (0-0.2); Basophils % (auto) 1.4 %; Eosinophils # (auto) 0.53 K/uL (0-0.50); Hematocrit (blood only) 33.4 % (42.0-52.0); Hemoglobin 11.1 g/dl (14.0-18.0); Immature Granulocytes # (auto) 0.02 K/uL (0.01-0.20); Immature Granulocytes % (auto) 0.2 %; Lymphocytes # (auto) 0.89 K/uL (1.2-3.4); Lymphocytes % (auto) 10.1 %; Mean Corpuscular Hemoglobin 30.4 pg (25.0-34.0); Mean Corpuscular Hgb Conc 33.2 g/dL (32.0-36.0); Mean Corpuscular Volume 91.5 fL (80.0-100.0); Mean Platelet Volume 10.1 fL (9.4-12.4); Monocytes # (auto) 0.67 K/uL (0.11-0.59); Monocytes % (auto) 7.6 %; Neutrophils # (auto) 6.59 K/uL (1.40-6.50); Neutrophils % (auto) 74.7 %; Platelet Count 196 K/uL (130-400); RDW Coefficient of Variation 14.2 % (11.5-14.5); RDW Standard Deviation 47.6 fL (36.4-46.3); Red Blood Count 3.65 M/uL (4.70-6.10); White Blood Count 8.82 K/ul (4.8-10.8)
[2023-03-07] MEDS: ASPIRIN 81 MG ECTAB PO SCH (09:06)
--- NOTE | 2023-03-07 09:10 | Pulmonary Consultation ---
Date of Consultation March 07, 2023 Assessment & Plan (1) Acute bronchitis due to Rhinovirus: IMPRESSION: 87-year-old male presenting with acute hypoxia in the setting of bronchitis likely related to underlying rhino/enterovirus with associated findings of layering pleural effusion with CHF exacerbation. Patient relatively bronchospastic on exam today. Will increase dose of prednisone to 40 mg daily for the next 4 days. Will encourage incentive spirometry and flutter valve. Agree with scheduled nebs. Sputum cultures are pending at this time. Does not sound as though this is related to aspiration, however when swallow studies obtained, hopefully antibiotics can be de-escalated at that point. Patient may warrant outpatient oxygen therapy pending clinical course. Patient would benefit from pulmonary function testing after complete recovery to establish his baseline. Patient without recent pulmonary function testing. Last PFTs were in May 2018 demonstrate an FVC of 3.21 L or 64% predicted, FEV1 of 2.37 L or 64% predicted and a ratio of 101% predicted. Total lung capacity reduced at 6.06 L or 74% predicted. DLCO moderately reduced at 57 with correction for alveolar ventilation to 90%. Findings consistent with restrictive airway process with decreased perfusion capacity. (2) Acute CHF (congestive heart failure): Likely a large driving force behind the patient's dyspnea. He does have effusions as well as elevated BNP and troponin. Echocardiogram pending. Patient would likely benefit from ongoing diuresis. Appreciate cardiology recommendations. 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 Patient with multiple nodular findings of the lung which are unchanged since 2019. Patient without recent bronchoscopic evaluation or prior bronchoscopy that I am able to appreciate. Regardless, CT findings unchanged and uncertain if tissue diagnosis is necessary/warranted at this point. Supervising Physician Co-Signing Physician Notes Agree with KEARA as above. Patient with new onset dyspnea secondary to acute CHF. Difficult to rule out pulmonary component as well. Agree with short course of oral corticosteroids. Will need outpatient pulmonary follow-up. Recommend palliative care consultation as well. History of Present Illness Reason for Consultation: Respiratory Failure Requesting Physician: Dr. Stone Attending Physician: Marzena De MD History of Present Illness Patient is an 87-year-old male with a previously diagnosed history of pneum oconiosis, nocturnal hypoxemia, and CHF who presented to the emergency department last evening after ongoing complaints of cough and shortness of breath for the past 2 weeks. Patient reports that his symptoms started with profound shortness of breath approximately 2 weeks ago. He states that his symptoms are present with minimal exertion. In combination, he noticed increasing swelling to his lower extremities. He states that he has been taking Lasix with minimal relief of lower extremity edema. He states that he has used 2 L nasal cannula for sleep at night, but feels as though he may need the oxygen during the day. His symptoms continue to worsen which prompted visit to the emergency department yesterday. The patient reports a cough productive of darkish sputum. He complains of ongoing wheezing and shortness of breath symptoms. He does complain of some chest heaviness occasionally which she equates to symptoms of GERD. Patient reports no prior history of cardiac events. He has had a prior stress test in the past. Allergies Allergy/AdvReac Type Severity Reaction Status Date / Time No Known Allergies Allergy Verified 03/06/23 19:40 Home Medications Medication Instructions Recorded Confirmed Type aspirin 81 mg tablet,delayed 81 mg PO DAILY 05/21/19 03/06/23 History release meloxicam 15 mg tablet 15 mg PO DAILY 05/21/19 03/06/23 History tamsulosin 0.4 mg capsule 0.8 mg PO DAILY 05/21/19 03/06/23 History triamcinolone acetonide 0.1 % 1 applic topical BID PRN Skin 05/21/19 03/06/23 History topical ointment Irritation multivitamin-ferrous 1 tab PO DAILY 05/22/19 03/06/23 History fumarate-folic acid 18 mg-400 mcg tablet (Centrum Complete) fluticasone propionate 50 2 sprays intranasal DAILY #16 grams 11/29/19 03/06/23 Rx mcg/actuation nasal spray,suspension carvedilol 12.5 mg tablet 12.5 mg PO BID 05/26/20 03/06/23 History citalopram 10 mg tablet 10 mg PO QAM 03/06/23 03/06/23 History cyanocobalamin (vitamin B-12) 100 100 mcg PO DAILY 03/06/23 03/06/23 History mcg tablet (Vitamin B-12) famotidine 20 mg tablet 20 mg PO HS 03/06/23 03/06/23 History furosemide 40 mg tablet (Lasix) 40 mg PO QAM 03/06/23 03/06/23 History guaifenesin 600 mg tablet, 600 mg PO Q12H PRN COUGH/CONGESTION 03/06/23 03/06/23 History extended release 12 hr ipratropium bromide 17 2 puff inhalation QID 03/06/23 03/06/23 History mcg/actuation HFA aerosol inhaler (Atrovent HFA) irbesartan 75 mg tablet 75 mg PO DAILY 03/06/23 03/06/23 History loratadine 10 mg tablet (Claritin) 10 mg PO DAILY 03/06/23 03/06/23 History pantoprazole 20 mg tablet,delayed 20 mg PO DAILYBB 03/06/23 03/06/23 History release salmeterol 50 mcg/dose blister 1 inh inhalation BID 03/06/23 03/06/23 History powder for inhalation (Serevent Diskus) sodium chloride 0.65 % nasal spray 1 spray intranasal BID PRN NASAL 03/06/23 03/06/23 History aerosol (Saline Nasal) DRYNESS Patient History Medical History Asthma Cough Dizziness Surgical History H/O shoulder surgery History of appendectomy Social History Smoking Status: Never smoker Second Hand Exposure: No; Do You Dip or Chew Tobacco: No; Tobacco Cessation Education Requested by Patient: No Hx Alcohol Use: No Hx Substance Use: No Communication Ability: Effective Beliefs That Will Affect Care: None marital status: / Current Living Situation: Alone Other Information That Helps Us Care for You: No Feels Safe at Home: Yes Safety Concerns: Feels Safe At This Time Assistive Devices: Oxygen - at Night Review of Systems Review of Systems: A complete 10 point review of systems was reviewed with the patient with pertinent positives and negatives as per history of present illness. All else were negative. Physical Exam Physical Exam: VITAL SIGNS - Vital signs and nursing notes were reviewed. GENERAL - 87-year-old male appearing his stated age who is in no acute distress. Communicates well with provider and answers questions appropriately. SKIN - Without rashes or lesions. NOSE - Midline and without cyanosis. MOUTH/OROPHARYNX - Without perioral cyanosis. NECK - Neck with FROM. LUNGS - Auscultation reveals diffuse expiratory wheezes with musical leg quality. No rales or rhonchi noted.. CARDIAC - RRR with S1/S2. No murmur, rubs, or gallops appreciated. ABDOMEN - Abdominal inspection demonstrates flat abdomen. BS normoactive all four quadrants. No tenderness, palpable masses, or ascites noted. EXTREMITIES - Nail clubbing no present. No peripheral cyanosis. Moderate edema noted of the bilateral feet. +3/5 radial palpated throughout. PSYCH - A&Ox3 and cooperates fully with examiner. Pt is very pleasant and interacts well with examiner. Results & Data Results & Data Vital Signs (Past 12 Hours) Vital Signs Temp Pulse Pulse Resp BP BP Pulse Ox 03/07/23 08:00 36.9 C 88 20 125/73 97 03/07/23 08:13 78 18 98 03/07/23 00:00 91 H 03/07/23 02:56 36.7 C 71 18 111/67 97 03/07/23 00:22 87 18 97 03/06/23 23:44 36.6 C 90 22 108/60 97 03/06/23 22:00 87 21 135/80 96 03/06/23 21:31 98 H 23 130/85 94 03/06/23 21:00 89 16 139/84 96 O2 Del Method O2 Flow Rate 03/07/23 08:00 Room Air 03/07/23 08:13 Nasal Cannula 2 03/07/23 00:00 03/07/23 02:56 Nasal Cannula 03/07/23 00:22 Nasal Cannula 3 03/06/23 23:44 Nasal Cannula 3 03/06/23 22:00 Nasal Cannula 2 03/06/23 21:31 Nasal Cannula 2 03/06/23 21:00 Nasal Cannula 2 PG Care Time/CCT Total # of Minutes Spent Total Time Spent with Patient: Total time spent is greater than 50% in coordination of care (as documented) at patient's floor/unit and/or counseling patient: Coding Level of Care Code 58910 INT INP/OBS CARE 3/75MIN Diagnoses Acute bronchitis due to Rhinovirus J20.6 Acute CHF (congestive heart failure) I50.9 Hypoxia R09.02 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 Time Spent (min) 45
[2023-03-07] MEDS ORDERED: predniSONE 20 MG TAB PO ONE (09:15)
[2023-03-07 09:19] LABS: BUN Creatinine Ratio 24.4 (10-20); Calcium 9.2 mg/dl (8.6-10.3); Creatinine Clr Calc Pharmacy 30.1 ml/min; Est GFR (African American) 33.6 ml/min; Magnesium 1.9 mg/dl (1.7-2.4); Phosphorus 3.4 mg/dl (2.5-4.9); Potassium 4.4 mmol/L (3.5-5.1)
[2023-03-07] MEDS ORDERED: FUROSEMIDE 40 MG/4 ML VIAL IV ONE (10:00)
[2023-03-07] MEDS ORDERED: CEFEPIME 2,000 MG in SYRINGE 0 ML IV SCH (13:00)
--- NOTE | 2023-03-07 14:29 | Hospitalist Progress Note ---
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 He is being managed for the following: Acute on chronic hypoxemic respiratory failure COPD/ILD exacerbation likely secondary to enterovirus infection Possible bacterial pneumonia, concern of aspiration ruled out Sepsis POA: RR, TX, WBC elevated at presentation. LA normal. Patient presents with worsening cough associated with shortness of breath [see above] O2 sats noted to be in the 80s upon EMS arrival at patient's home. Patient uses 2 L oxygen at bedtime at home, had been using 2 L all the time since last 2 weeks [employer]. Admitting CXR and CT chest reviewed. Patient initially required up to 4 L, currently back to 2 L. Patient has been started on steroid, antibiotics. We will continue same. Continue with flutter valve and incentive spirometer, nebulizations, follow-up sputum culture Awaiting speech eval - no aspiration. Pulmonology on board: Steroid dose increased. PFT as an outpatient. Atb changed to rocephin and zithro Pt clinically getting better, decreasing O2 requirement. Acute systolic heart failure Cardiomyopathy Patient presents with worsening shortness of breath and lower extremity swelling [see above] Per outpatient chart review, 04/07/2022 echo: EF 60%, grade 2 diastolic dysfunction. Normal LV size and systolic function. RV size and systolic function normal. BNP elevated at presentation, CXR with pulmonary edema. BLE Doppler with no DVT. Echo this admission: EF 30 to 35%, mid level and apical segments of LV are severely hypokinetic to akinetic with mild expansion. 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 Received IV Lasix at ED, creatinine around 1.7-1.9 as per outpatient chart review. Cardiology on board, managing diuresis. Continue with Coreg, aspirin, IV diuresis. Strict I's and O's, maintain negative balance. Monitor replete electrolytes. Likely type II NSTEMI: Troponin x2 in 130s, patient with no chest pain, EKG with NSR. Likely secondary to acute illness/pneumonia/acute on chronic heart failure. Continue telemetry monitoring. Other chronic medical conditions: Continue with home meds as able. hypertension, currently stable hyperlipidemia : started on statin Rx CKD 3b/4 chronic anemia, hemoglobin at baseline prostate cancer status post radiation past tobacco abuse DVT prophylaxis with heparin subcu Full code Admission and Anticipated Discharge Date Admission Date: March 06, 2023 Subjective Patient seen and examined at bedside as a follow-up of acute hypoxemic respiratory failure, acute systolic heart failure, COPD exacerbation, possible pneumonia, rhinovirus infection. Patient was lying on bed, semiupright on 2 L oxygen via nasal cannula, NAD, r eports no new acute event overnight, reports somewhat improvement in his shortness of breath but still short of breath with minimal activity. Also reports improving cough, makes brownish sputum with the cough. Denies headache or dizziness or fever. Physical Exam Physical Exam: GENERAL: Alert and oriented x3. NAD, on 2L NC O2. HEENT: No pallor, no icterus. Pupils equal, round and reactive to light. Oral mucosa moist. NECK: No JVD, no neck masses. HEART: S1 and S2 heard. Regular rate and rhythm. No murmur, no gallop. RESPIRATORY SYSTEM: Normal AP diameter. No accessory muscle use. + b/l wheezing, + b/l crackles. ABDOMEN: Soft, bowel sounds present, nontender, no distention. CENTRAL NERVOUS SYSTEM: No facial droop. Speech is clear. Obeys simple commands. Moves extremities. EXTREMITIES: trace to 1+ ble edema, no erythema seen. Results & Data Results & Data Vital Signs (Past 12 Hours) Vital Signs Temp Pulse Resp BP Pulse Ox O2 Del Method O2 Flow Rate 03/07/23 13:11 71 18 98 Nasal Cannula 2 03/07/23 13:02 36.8 C 74 18 105/72 97 Room Air 03/07/23 08:00 36.9 C 88 20 125/73 97 Room Air 03/07/23 08:13 78 18 98 Nasal Cannula 2 03/07/23 02:56 36.7 C 71 18 111/67 97 Nasal Cannula
[2023-03-07] MEDS ORDERED: AZITHROMYCIN 250 MG TAB PO ONE (14:45)
[2023-03-07] MEDS: FAMOTIDINE 20 MG TAB PO SCH (21:03)
[2023-03-07] MEDS: cefTRIAXone SODIUM 2,000 MG in DEXTROSE 5% 50 ML IV SCH (21:34)
[2023-03-08] MEDS: IPRATROPIUM BROMIDE NEB SOLN 0.02% 2.5 ML VIAL INH SCH ×5 (01:12→23:56)
[2023-03-08] MEDS: LEVALBUTEROL 1.25 MG/3 ML NEB NEB SCH ×5 (01:12→23:57)
--- NOTE | 2023-03-08 06:08 | Electrocardiogram Report ---
Test Reason : Blood Pressure : / mmHG Vent. Rate : 095 BPM Atrial Rate : 000 BPM P-R Int : 000 ms QRS Dur : 108 ms QT Int : 352 ms P-R-T Axes : 000 -08 134 degrees QTc Int : 442 ms Normal sinus rhythm Minimal voltage criteria for LVH, may be normal variant Septal infarct , age undetermined Abnormal ECG When compared with ECG of 19-JAN-2015 13:36, Vent. rate has increased BY 43 BPM Questionable change in QRS duration T wave inversion now evident in Lateral leads Confirmed by Cristian Mosley ([id number]) on 03/08/2023 6:08:17 AM Referred By: REFERRED SELF Confirmed By:Cristian Mosley
[2023-03-08] MEDS: HEPARIN SOD 5,000 UNIT/0.5 ML VIAL SQ SCH ×3 (06:50→21:23)
[2023-03-08 06:59] LABS: Basophils # (auto) 0.02 K/uL (0-0.2); Basophils % (auto) 0.2 %; Eosinophils # (auto) 0.01 K/uL (0-0.50); Eosinophils % (auto) 0.1 %; Hemoglobin 10.8 g/dl (14.0-18.0); Immature Granulocytes # (auto) 0.03 K/uL (0.01-0.20); Immature Granulocytes % (auto) 0.3 %; Lymphocytes # (auto) 0.77 K/uL (1.2-3.4); Lymphocytes % (auto) 8.2 %; Mean Corpuscular Hemoglobin 29.7 pg (25.0-34.0); Mean Corpuscular Hgb Conc 32.7 g/dL (32.0-36.0); Mean Corpuscular Volume 90.7 fL (80.0-100.0); Mean Platelet Volume 10.6 fL (9.4-12.4); Monocytes # (auto) 0.37 K/uL (0.11-0.59); Neutrophils # (auto) 8.16 K/uL (1.40-6.50); Neutrophils % (auto) 87.2 %; Platelet Count 206 K/uL (130-400); RDW Coefficient of Variation 14.1 % (11.5-14.5); RDW Standard Deviation 46.6 fL (36.4-46.3); Red Blood Count 3.64 M/uL (4.70-6.10); White Blood Count 9.36 K/ul (4.8-10.8)
[2023-03-08 07:16] LABS: BUN Creatinine Ratio 22.7 (10-20); Calcium 9.2 mg/dl (8.6-10.3); Est GFR (African American) 26.8 ml/min; Est GFR (Non-African American) 23.1 ml/min; Phosphorus 4.8 mg/dl (2.5-4.9); Potassium 4.3 mmol/L (3.5-5.1)
--- NOTE | 2023-03-08 07:23 | Cardiology Progress Note ---
Date of Service March 08, 2023 Assessment & Plan (1) Acute systolic CHF (congestive heart failure): (2) Acute hypoxemic respiratory failure: (3) 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, coal, workers': Plan IMPRESSION: Medically complex 87-year-old male presenting with acute hypoxic respiratory failure secondary to systolic heart failure superimposed on underlying interstitial lung disease. Echocardiogram reflects moderate left dysfunction question ischemic heart disease versus apical ballooning cardiomyopathy. LVEF 30-35%. Current findings do not suggest an acute ischemic event though subacute presentation not completely excluded. PLAN: -Further decline in renal function, patient is down about 3 kg and appears euvolemic- hold IV Lasix. Repeat BMP tomorrow am. -Patient on guideline directed medical therapies already with carvedilol and aspirin.Irbesartan on hold due to renal dysfunction. Crestor started 03/07. -Consider hydralazine/nitrate combination should BP allow. -Would not proceed with diagnostic coronary angiography given current renal insufficiency, marked difficulties with orthopnea cough, hemodynamic stability. -Continue with pulmonary toileting, Supplemental o2 as needed, IV antibiotics for pneumonia. Pulmonary on board- appreciate recommendations. Case discussed with Dr. Urena, will follow. Admission and Anticipated Discharge Date Admission Date: March 06, 2023 Supervising Physician Co-Signing Physician Notes Patient was seen and examined personally. Assessment and plan as outlined above. Clinically improved, less dyspnea less oxygen demands. Responded to diuretics though with worsening renal insufficiency Plan as outlined above Subjective Medically complex 87-year-old male with acute hypoxic respiratory failure secondary to systolic heart failure superimposed on underlying interstitial lung disease. Echocardiogram dated 03/07/2023 showed a severely hypokinetic to akinetic left ventricle with an LVEF of 30 to 35%. 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 EKG without acute changes with old septal infarct present on prior studies. Troponin elevated though without evolution in the setting of chronic renal insufficiency. Chronic stage IIIb CKD present. Patient remains hypervolemic on exam but was responding to IV diuretics. Was evaluated by pulmonary and prednisone was increased. Patient on IV antibiotics. Sputum cultures pending. 03/08: I&O: -991 mL Weight: 90.8 kg >>87.5 kg TELE: NSR 70s Upon entrance into the room patient resting in bed. Son at bedside. No acute complaints this morning. Notes significant improvement in his shortness of breath. Believes that his breathing is close to baseline. Cough improving per the patient- continues to be rhonchorous and productive. Ongoing supplemental o2 use. No chest pain, palpitations, or lightheadedness. Continues to have mild left lower extremity edema, right lower extremity edema resolved. Review of Systems Review of Systems: All systems reviewed & are unremarkable except as noted in HPI & below Physical Exam Constitutional: WD/WN, vitals as above no acute distress Eyes: PERRL, conjunctivae normal, anicteric sclerae ENMT: external ear and nose normal, oropharynx normal Neck: normal visual inspection and trachea midline Respiratory: + cough (Course, productive ); no labored breathing Auscultation: + rhonchi and + wheezes; no rales Cardiovascular: Rate/Rhythm: regular rate and regular rhythm Heart Sounds: normal S1 and normal S2 Vessels: no JVD Extremities: + edema (+1 right lower extremity edema. No left lower extremity edema) Gastrointestinal (Abdomen): Inspection/Auscultation: abdomen not distended Percussion/Palpation: + abdomen firm; abdomen nontender Musculoskeletal: no cyanosis or clubbing, extremities motor strength 5/5 Skin: no rashes, warm and dry Psychiatric: A+Ox3, euthymic affect Results & Data Vital Signs (Past 12 Hours) Vital Signs Temp Pulse Pulse Pulse Resp BP Pulse Ox 03/08/23 07:08 71 18 97 03/08/23 03:35 36.5 C 68 18 101/64 96 03/08/23 00:00 67 03/08/23 01:13 75 18 99 03/07/23 21:00 03/07/23 22:49 36.6 C 76 18 117/71 99 03/07/23 19:19 36.5 C 70 18 116/65 98 03/07/23 19:17 86 18 97 O2 Del Method O2 Flow Rate 03/08/23 07:08 Nasal Cannula 2 03/08/23 03:35 Nasal Cannula 03/08/23 00:00 03/08/23 01:13 Nasal Cannula 2 03/07/23 21:00 Nasal Cannula 2 03/07/23 22:49 Nasal Cannula 03/07/23 19:19 Nasal Cannula 03/07/23 19:17 Nasal Cannula 2 Laboratory Results CBC 03/08/23 Range/Units 06:07 WBC 9.36 (4.8-10.8) K/ul RBC 3.64 L (4.70-6.10) M/uL Hgb 10.8 L (14.0-18.0) g/dl Hct 33.0 L (42.0-52.0) % Plt Count 206 (130-400) K/uL Neut # (Auto) 8.16 H (1.40-6.50) K/uL Lymph # (Auto) 0.77 L (1.2-3.4) K/uL [place] # (Auto) 0.37 (0.11-0.59) K/uL Eos # (Auto) 0.01 (0-0.50) K/uL Baso # (Auto) 0.02 (0-0.2) K/uL Comprehensive Metabolic Panel 03/07/23 03/08/23 Range/Units 08:47 06:07 Sodium 137 135 L (136-145) mmol/L Potassium 4.4 4.3 (3.5-5.1) mmol/L Chloride 102 99 (98-107) mmol/L Carbon Dioxide 28 27 (21-32) mmol/L BUN 49 H 55 H (6-23) mg/dl Creatinine 2.01 H 2.42 H D (0.6-1.4) mg/dl Glucose 142 H 139 H (70-99(Fasting)) mg/dl Calcium 9.2 9.2 (8.6-10.3) mg/dl Intake and Output 03/07/23 03/08/23 03/08/23 22:59 06:59 14:59 Intake Total 690 / 1190 130 / 1190 Output Total 801 / 1901 200 / 1901 Balance -111 / -711 -70 / -711 Intake: IV 120 / 310 70 / 310 Piperacillin/Tazobactam 4.5 gm 120 / 240 In Dextrose 5% 100 ml @ 30 mls/ hr IV Q8H CLAUDIA Rx#:[id number] cefTRIAXone SODIUM 2,000 mg In 70 / 70 Dextrose 5% 50 ml @ 100 mls/hr IV Q24H CLAUDIA Rx#:[id number] Oral 570 / 880 60 / 880 Output: Urine 800 / 1900 200 / 1900 # Bowel Movements Other: Weight 87.5 kg
--- NOTE | 2023-03-08 07:51 | Pulmonology Progress Note ---
Date of Service March 08, 2023 Assessment & Plan (1) Acute bronchitis due to Rhinovirus: Plan: IMPRESSION: 87-year-old male presenting with acute hypoxia in the setting of bronchitis likely related to underlying rhino/enterovirus with associated findings of layering pleural effusion with CHF exacerbation. Improved wheezing today. Complete 40 mg prednisone course. Will encourage incentive spirometry and flutter valve. Agree with scheduled nebs. Sputum cultures are pending at this time. Passed his swallow evaluation yesterday. Deescalation of antibiotics for CAP coverage. Patient may warrant outpatient oxygen therapy pending clinical course. Patient would benefit from pulmonary function testing after complete recovery to establish his baseline. (2) Acute CHF (congestive heart failure): Plan: Likely a large driving force behind the patient's dyspnea. 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 Patient would likely benefit from ongoing diuresis. Appreciate cardiology recommendations. 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 Patient with multiple nodular findings of the lung which are unchanged since 2019. Patient without recent bronchoscopic evaluation or prior bronchoscopy that I am able to appreciate. Regardless, CT findings unchanged and uncertain if tissue diagnosis is necessary/warranted at this point. Admission and Anticipated Discharge Date Admission Date: March 06, 2023 Subjective Patient seen and evaluated at bedside this morning. He reports that his breathing is slightly improved. He feels as though the nebulizers and pulmonary toileting have been helping. Review of Systems Review of Systems: A complete 10 point review of systems was reviewed with the patient with perti maudent positives and negatives as per history of present illness. All else were negative. Physical Exam Physical Exam: VITAL SIGNS - Vital signs and nursing notes were reviewed. GENERAL - 87-year-old male appearing his stated age who is in no acute distress. Communicates well with provider and answers questions appropriately. NOSE - Midline and without cyanosis. MOUTH/OROPHARYNX - Without perioral cyanosis. LUNGS - Auscultation reveals improved wheezing. No rales or rhonchi noted. CARDIAC - RRR with S1/S2. No murmur, rubs, or gallops appreciated. ABDOMEN - Abdominal inspection demonstrates flat abdomen. BS normoactive all four quadrants. No tenderness, palpable masses, or ascites noted. PSYCH - A&Ox3 and cooperates fully with examiner. Pt is very pleasant and interacts well with examiner. Results & Data Results & Data Vital Signs (Past 12 Hours) Vital Signs Temp Pulse Pulse Pulse Resp BP Pulse Ox 03/08/23 07:19 78 03/08/23 07:08 71 18 97 03/08/23 03:35 36.5 C 68 18 101/64 96 03/08/23 00:00 67 03/08/23 01:13 75 18 99 03/07/23 21:00 03/07/23 22:49 36.6 C 76 18 117/71 99 O2 Del Method O2 Flow Rate 03/08/23 07:19 03/08/23 07:08 Nasal Cannula 2 03/08/23 03:35 Nasal Cannula 03/08/23 00:00 03/08/23 01:13 Nasal Cannula 2 03/07/23 21:00 Nasal Cannula 2 03/07/23 22:49 Nasal Cannula PG Care Time/CCT Total # of Minutes Spent Total Time Spent with Patient: Total time spent is greater than 50% in coordination of care (as documented) at patient's floor/unit and/or counseling patient: Coding Level of Care Code 00445 SUB INP/OBS CARE 3/50MIN Diagnoses Acute bronchitis due to Rhinovirus J20.6 Acute CHF (congestive heart failure) I50.9 Hypoxia R09.02 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
[2023-03-08] MEDS: carvediloL 12.5 MG TAB PO SCH ×2 (09:14→16:52)
[2023-03-08] MEDS: CYANOCOBALAMIN (B-12) 100 MCG TABLET PO SCH (09:15)
[2023-03-08] MEDS: ASPIRIN 81 MG ECTAB PO SCH (09:15)
[2023-03-08] MEDS: CITALOPRAM 20 MG TAB PO SCH (09:15)
[2023-03-08] MEDS: CEROVITE ADV FORMULA TAB PO SCH (09:16)
[2023-03-08] MEDS: PANTOprazole 40 MG TAB PO SCH ×2 (09:16→21:24)
[2023-03-08] MEDS: FLUTICASONE PROPIONATE NA SPR 16 GM BTL SCH (09:16)
[2023-03-08] MEDS: LORATADINE 10 MG TAB PO SCH (09:16)
[2023-03-08] MEDS: TAMSULOSIN HCL 0.4 MG CAP PO SCH (09:17)
[2023-03-08] MEDS: predniSONE 20 MG TAB PO SCH (09:17)
[2023-03-08] MEDS: ROSUVASTATIN CALCIUM 10 MG TAB PO SCH (09:17)
--- NOTE | 2023-03-08 13:02 | Hospitalist Progress Note ---
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 He is being managed for the following: Acute on chronic hypoxemic respiratory failure COPD/ILD exacerbation likely secondary to enterovirus infection Possible bacterial pneumonia, concern of aspiration ruled out Sepsis POA: RR, CA, WBC elevated at presentation. LA normal. Patient presented with worsening cough associated with shortness of breath O2 sats noted to be in the 80s upon EMS arrival at patient's home. Patient uses 2 L oxygen at bedtime at home but had been using 2 L all the time since last 2 weeks [employer]. Patient initially required up to 4 L, currently back to [address] noted small layering pleural effuison and pulm edema. Also had bronchial wall thickening with peribronchial opacities. Widespread bilateral micronodular opacities not significantly changed since 2019 + Rhinovirus on resp panel Pulm recs noted Continue ceftriaxone and azithromycin Continue prednisone Continue with flutter valve and incentive spirometer, nebulizations Follow-up sputum culture Wean oxygen as tolerated Will need 2 step once stable for discharge [employer] eval noted. No aspiration Acute systolic heart failure Cardiomyopathy Per outpatient chart review, 04/07/2022 echo: EF 60%, grade 2 diastolic dysfunction. Normal LV size and systolic function. RV size and systolic function normal. BNP elevated at presentation, CXR with pulmonary edema. BLE Doppler with no DVT. Echo this admission: EF 30 to 35%, mid level and apical segments of LV are severely hypokinetic to akinetic with mild expansion. 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 Received IV Lasix at ED Creatinine around 1.7-1.9 as per outpatient chart review. Cardiology on board managing diuresis. Lasix on hold for today in view of Cr bump to 2.49 today. Monitor Continue with Coreg, aspirin Irbesartan on hold due to renal function May need cath at some point but not now due to renal function/clinical status. Defer to Cardiology Strict I's and O's Monitor replete electrolytes. Likely type II NSTEMI: Troponin x2 in 130s Patient with no chest pain, EKG with NSR. Likely secondary to acute illness/pneumonia/acute on chronic heart failure. Continue telemetry monitoring. Other chronic medical conditions: Continue with home meds as able. hypertension, currently stable hyperlipidemia : started on statin Rx CKD 3b/4 chronic anemia, hemoglobin at baseline prostate cancer status post radiation past tobacco abuse DVT prophylaxis with heparin subcu Full code I spent a total of 45 minutes coordinating, documenting and providing care for this patient excluding time spent in performance of separately billed services Admission and Anticipated Discharge Date Admission Date: March 06, 2023 Subjective Patient seen and examined Reports feeling better today Reports cough and SOB improving Reports ankle edema Denied any chest pain, nausea, vomiting, abd pain, diarrhea Denied dysuria, urgency Physical Exam Constitutional: + well hydrated; no acute distress Eyes: PERRL, conjunctivae normal, anicteric sclerae ENMT: external ear and nose normal, oropharynx normal Respiratory: On nasal cannula, +wheezing Cardiovascular: Rate/Rhythm: regular rate and regular rhythm S1 S2 Gastrointestinal (Abdomen): normal bowel sounds, soft, nontender, no hepatosplenomegaly Musculoskeletal: Right ankle edema Neurologic: PERRL, EOMI, accommodation nl, no face palsy, no dysarthria Psychiatric: A+Ox3, euthymic affect Results & Data Results & Data Vital Signs (Past 12 Hours) Vital Signs Temp Pulse Pulse Pulse Resp BP Pulse Ox 03/08/23 11:00 37.0 C 79 18 109/67 97 03/08/23 10:34 03/08/23 08:00 36.8 C 74 18 120/93 97 03/08/23 07:19 78 03/08/23 07:08 71 18 97 03/08/23 03:35 36.5 C 68 18 101/64 96 03/08/23 01:13 75 18 99 O2 Del Method O2 Flow Rate 03/08/23 11:00 Room Air 03/08/23 10:34 Nasal Cannula 2 03/08/23 08:00 Nasal Cannula 2 03/08/23 07:19 03/08/23 07:08 Nasal Cannula 2 03/08/23 03:35 Nasal Cannula 03/08/23 01:13 Nasal Cannula 2 Laboratory Results Abnormal lab results 03/08/23 03/08/23 Range/Units 06:07 06:07 RBC 3.64 L (4.70-6.10) M/uL Hgb 10.8 L (14.0-18.0) g/dl Hct 33.0 L (42.0-52.0) % RDW Std Deviation 46.6 H (36.4-46.3) fL Neut # (Auto) 8.16 H (1.40-6.50) K/uL Lymph # (Auto) 0.77 L (1.2-3.4) K/uL Sodium 135 L (136-145) mmol/L BUN 55 H (6-23) mg/dl Creatinine 2.42 H D (0.6-1.4) mg/dl BUN/Creatinine Ratio 22.7 H (10-20) Glucose 139 H (70-99(Fasting)) mg/dl
[2023-03-08] MEDS: AZITHROMYCIN 250 MG TAB PO SCH (13:59)
[2023-03-08] MEDS: cefTRIAXone SODIUM 2,000 MG in DEXTROSE 5% 50 ML IV SCH (21:24)
[2023-03-08] MEDS: FAMOTIDINE 20 MG TAB PO SCH (21:24)
--- NOTE | 2023-03-08 23:06 | Electrocardiogram Report ---
Test Reason : Blood Pressure : / mmHG Vent. Rate : 075 BPM Atrial Rate : 075 BPM P-R Int : 192 ms QRS Dur : 102 ms QT Int : 424 ms P-R-T Axes : 059 -21 223 degrees QTc Int : 473 ms Normal sinus rhythm Septal infarct (cited on or before 06-MAR-2023) Nonspecific ST and T wave abnormality Abnormal ECG When compared with ECG of 06-MAR-2023 18:24, No significant change Confirmed by Cristian Mosley ([id number]) on 03/08/2023 11:05:32 PM Referred By: REFERRED SELF Confirmed By:Cristian Mosley
[2023-03-09] MEDS: HEPARIN SOD 5,000 UNIT/0.5 ML VIAL SQ SCH ×2 (05:00→13:20)
[2023-03-09 06:27] LABS: Hematocrit (blood only) 32.4 % (42.0-52.0); Mean Corpuscular Hemoglobin 29.9 pg (25.0-34.0); Mean Platelet Volume 10.2 fL (9.4-12.4); Platelet Count 225 K/uL (130-400); RDW Coefficient of Variation 13.9 % (11.5-14.5); RDW Standard Deviation 44.9 fL (36.4-46.3); Red Blood Count 3.68 M/uL (4.70-6.10); White Blood Count 10.74 K/ul (4.8-10.8)
[2023-03-09] MEDS: LEVALBUTEROL 1.25 MG/3 ML NEB NEB SCH ×2 (07:13→12:12)
[2023-03-09] MEDS: IPRATROPIUM BROMIDE NEB SOLN 0.02% 2.5 ML VIAL INH SCH ×2 (07:14→12:13)
--- NOTE | 2023-03-09 07:31 | Cardiology Progress Note ---
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 Echocardiogram reflects moderate left dysfunction question ischemic heart disease versus apical ballooning cardiomyopathy. LVEF 30-35%. Current findings do not suggest an acute ischemic event though subacute presentation not completely excluded. PLAN: -Patient is down about 4 kg and appears euvolemic- Scr back to baseline. Lasix on Hold. Recommended discharge home on Lasix 40 mg daily- home dose. CHF education. -Patient on guideline directed medical therapies already with carvedilol and aspirin.Irbesartan on hold due to renal dysfunction. Crestor started 03/07. -Consider hydralazine/nitrate combination should BP allow as an outpatient. -Would not proceed with diagnostic coronary angiography given current renal insufficiency, marked difficulties with orthopnea cough, hemodynamic stability. -Continue with pulmonary toileting, Supplemental o2 as needed, IV antibiotics for pneumonia. Pulmonary on board- appreciate recommendations. -Consider 2 step prior to discharge. Case discussed with Dr. Urena, will follow. Admission and Anticipated Discharge Date Admission Date: March 06, 2023 Supervising Physician Co-Signing Physician Notes Patient was seen and examined, chart, medications, telemetry reviewed Patient clinically improved with assessment as above Anticipates discharge today per patient Would resume diuretic dosing at 40 mg daily Recommend BMP 1 week Will need follow-up with cardiology in the next 2 to 4 weeks time anticipated repeat echocardiogram Subjective Medically complex 87-year-old male with acute hypoxic respiratory failure secondary to systolic heart failure superimposed on underlying interstitial lung disease. Echocardiogram dated 03/07/2023 showed a severely hypokinetic to akinetic left ventricle with an LVEF of 30 to 35%. 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 EKG without acute changes with old septal infarct present on prior studies. Troponin elevated though without evolution in the setting of chronic renal insufficiency. Chronic stage IIIb CKD present. Patient remains hypervolemic on exam but was responding to IV diuretics. Was evaluated by pulmonary and prednisone was increased. Patient on IV antibiotics. Sputum cultures pending. 03/08: Overall volume status improving. Serum creatinine increased from baseline of 1.7-1.9 to about 2.4. Weight down 3 kg. Lasix was held. Required less oxygen requirements-was on 2 L nasal cannula vs 4 L. Antibiotics and prednisone per primary team/pulmonary. 03/09: I&O: -556 mL Weight: 90.8 kg >>86 kg TELE: NSR 70s Upon entrance into the room patient resting in bed. No acute complaints this morning. Notes significant improvement in his shortness of breath. Believes that his breathing is close to baseline. Cough improving per the patient- continues to be rhonchorous, but now nonproductive. No longer requiring O2 during the day. No chest pain, palpitations, or lightheadedness. No lower extremity edema. Review of Systems Review of Systems: All systems reviewed & are unremarkable except as noted in HPI & below Physical Exam Constitutional: WD/WN, vitals as above no acute distress Eyes: PERRL, conjunctivae normal, anicteric sclerae ENMT: external ear and nose normal, oropharynx normal Neck: normal visual inspection and trachea midline Respiratory: + cough (Course, non-productive ) and + audible wheezes; no la bored breathing Auscultation: + rhonchi and + wheezes; no rales Cardiovascular: Rate/Rhythm: regular rate and regular rhythm Heart Sounds: normal S1 and normal S2 Vessels: no JVD Extremities: no edema Gastrointestinal (Abdomen): Inspection/Auscultation: abdomen not distended Percussion/Palpation: + abdomen firm; abdomen nontender Musculoskeletal: no cyanosis or clubbing, extremities motor strength 5/5 Skin: no rashes, warm and dry Psychiatric: A+Ox3, euthymic affect Results & Data Vital Signs (Past 12 Hours) Vital Signs Temp Pulse Pulse Resp BP Pulse Ox O2 Del Method 03/09/23 07:16 65 18 99 Nasal Cannula 03/09/23 03:00 36.4 C L 82 23 131/82 99 Nasal Cannula 03/08/23 23:57 77 18 98 Nasal Cannula 03/08/23 23:32 74 03/08/23 22:59 36.4 C L 73 18 118/72 98 Nasal Cannula 03/08/23 21:15 Nasal Cannula 03/08/23 19:37 36.5 C 77 18 120/75 99 Aerosol Mask O2 Flow Rate 03/09/23 07:16 2 03/09/23 03:00 2 03/08/23 23:57 2 03/08/23 23:32 03/08/23 22:59 2 03/08/23 21:15 2 03/08/23 19:37 8 Laboratory Results CBC 03/09/23 Range/Units 06:08 WBC 10.74 (4.8-10.8) K/ul RBC 3.68 L (4.70-6.10) M/uL Hgb 11.0 L (14.0-18.0) g/dl Hct 32.4 L (42.0-52.0) % Plt Count 225 (130-400) K/uL Comprehensive Metabolic Panel 03/09/23 Range/Units 06:08 Sodium 133 L (136-145) mmol/L Potassium 4.6 (3.5-5.1) mmol/L Chloride 99 (98-107) mmol/L Carbon Dioxide 24 (21-32) mmol/L BUN 64 H (6-23) mg/dl Creatinine 2.03 H D (0.6-1.4) mg/dl Glucose 117 H (70-99(Fasting)) mg/dl Calcium 9.3 (8.6-10.3) mg/dl Intake and Output 03/08/23 03/09/23 03/09/23 22:59 06:59 14:59 Intake Total 310 / 960 Balance 310 / 435 Intake: IV 70 / 70 cefTRIAXone SODIUM 2,000 mg In 70 / 70 Dextrose 5% 50 ml @ 100 mls/hr IV Q24H [facility] Rx#:[id number] Oral 240 / 890 Other: # Unmeasured Voids 1 Weight 86 kg Weight Measurement Method Built in [facility]
[2023-03-09] MEDS: carvediloL 12.5 MG TAB PO SCH (08:15)
[2023-03-09] MEDS: FLUTICASONE PROPIONATE NA SPR 16 GM BTL SCH (08:16)
[2023-03-09] MEDS: ASPIRIN 81 MG ECTAB PO SCH (08:16)
[2023-03-09] MEDS: CITALOPRAM 20 MG TAB PO SCH (08:16)
[2023-03-09] MEDS: CYANOCOBALAMIN (B-12) 100 MCG TABLET PO SCH (08:16)
[2023-03-09] MEDS: LORATADINE 10 MG TAB PO SCH (08:17)
[2023-03-09] MEDS: CEROVITE ADV FORMULA TAB PO SCH (08:17)
[2023-03-09] MEDS: PANTOprazole 40 MG TAB PO SCH (08:17)
[2023-03-09] MEDS: TAMSULOSIN HCL 0.4 MG CAP PO SCH (08:18)
[2023-03-09] MEDS: ROSUVASTATIN CALCIUM 10 MG TAB PO SCH (08:18)
[2023-03-09] MEDS: predniSONE 20 MG TAB PO SCH (08:18)
[2023-03-09 08:21] LABS: Calcium 9.3 mg/dl (8.6-10.3); Potassium 4.6 mmol/L (3.5-5.1)
[2023-03-09 08:27] LABS: BUN Creatinine Ratio 31.5 (10-20); Creatinine Clr Calc Pharmacy 29.8 ml/min; Est GFR (African American) 33.2 ml/min; Est GFR (Non-African American) 28.6 ml/min; Phosphorus 4.3 mg/dl (2.5-4.9)
--- NOTE | 2023-03-09 08:52 | Pulmonology Progress Note ---
Date of Service March 09, 2023 Assessment & Plan (1) Acute bronchitis due to Rhinovirus: Plan: IMPRESSION: 87-year-old male presenting with acute hypoxia in the setting of bronchitis likely related to underlying rhino/enterovirus with associated findings of layering pleural effusion with CHF exacerbation. Wheezing has resolved today. Patient to complete course of 40 mg prednisone. Patient has an incentive spirometer and flutter valve at home. He was encouraged to continue to use these over the next few weeks. Patient can restart his home inhalers. Sputum cultures without significant findings. Deescalation of antibiotics for CAP coverage. Patient can be transitioned to PO antibiotic at this time. Can complete remaining course in the outpatient setting. Patient would benefit from pulmonary function testing after complete recovery to establish his baseline. Patient has a follow-up appointment with [facility] pulmonary at the end of the month. This will be reasonable timeframe. (2) Acute CHF (congestive heart failure): Plan: Likely a large driving force behind the patient's dyspnea. 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 Appreciate cardiology ongoing management. 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 Patient with multiple nodular findings of the lung which are unchanged since 2019. Patient without recent bronchoscopic evaluation or prior bronchoscopy that I am able to appreciate. Regardless, CT findings unchanged and uncertain if tissue diagnosis is necessary/warranted at this point. Plan Thank you for allowing us to participate in the care of this patient. Pulmonary medicine will sign off at this time. Admission and Anticipated Discharge Date Admission Date: March 06, 2023 Subjective Patient seen and evaluated at bedside. He reports feeling much better at this time. He is off of oxygen and ambulating without significant shortness of breath. Review of Systems 2 Review of Systems: A complete 10 point review of systems was reviewed with the patient with pertinent positives and negatives as per history of present illness. All else were negative. Physical Exam Physical Exam: VITAL SIGNS - Vital signs and nursing notes were reviewed. GENERAL - 87-year-old male appearing his stated age who is in no acute distress. Communicates well with provider and answers questions appropriately. NOSE - Midline and without cyanosis. MOUTH/OROPHARYNX - Without perioral cyanosis. LUNGS - Auscultation reveals significantly improved breath sounds without wheezing. Slight rales appreciated. CARDIAC - RRR with S1/S2. No murmur, rubs, or gallops appreciated. PSYCH - A&Ox3 and cooperates fully with examiner. Pt is very pleasant and interacts well with examiner. Results & Data Results & Data Vital Signs (Past 12 Hours) Vital Signs Temp Pulse Pulse Resp BP Pulse Ox O2 Del Method 03/09/23 07:54 36.8 C 81 20 124/77 96 Room Air 03/09/23 07:16 65 18 99 Nasal Cannula 03/09/23 03:00 36.4 C L 82 23 131/82 99 Nasal Cannula 03/08/23 23:57 77 18 98 Nasal Cannula 03/08/23 23:32 74 03/08/23 22:59 36.4 C L 73 18 118/72 98 Nasal Cannula 03/08/23 21:15 Nasal Cannula O2 Flow Rate 03/09/23 07:54 03/09/23 07:16 2 03/09/23 03:00 2 03/08/23 23:57 2 03/08/23 23:32 03/08/23 22:59 2 03/08/23 21:15 2 PG Care Time/CCT Total # of Minutes Spent Total Time Spent with Patient: Total time spent is greater than 50% in coordination of care (as documented) at patient's floor/unit and/or counseling patient: Coding Level of Care Code 96955 SUB INP/OBS CARE 3/50MIN Diagnoses Acute bronchitis due to Rhinovirus J20.6 Acute CHF (congestive heart failure) I50.9 Hypoxia R09.02 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
--- NOTE | 2023-03-09 12:08 | Discharge Summary ---
Date of Service March 09, 2023 Admission HPI Per Admitting Provider History obtained from patient and records. 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 Patient noted worsening junky cough symptoms over the last few months. Patient not sure about aspiration but cough worse when lying flat on his back. Patient attributes worsening cough symptoms from COVID-[address] chest September 2022 showed no interval pneumonia. Unchanged multiple pulmonary micronodules. 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 Aspergillus versicolor also noted. Consider bronchoscopy for underlying infection but has not been treated if with further symptoms as per outpatient pulmonology. Patient's symptoms attributed by lung disorder and heart failure as per outpatient pulmonology note last November 2022. Patient prescribed by PCP Augmentin and prednisone course for worsening symptoms 3 weeks ago. Patient's [facility] outpatient pulmonology appointment canceled. Protonix added to patient's Pepcid for uncontrolled GERD after office visit. Elevated dimer and BNP on outpatient blood work. Outpatient CT chest 2 weeks ago did not show pulmonary embolus. New trace bilateral pleural effusions noted without significant pulmonary edema. Stable interstitial lung disease. Patient prescribed Lasix by PCP for for CHF. Worsening shortness of breath, leg swelling up to the ankles and central chest discomfort attributed by patient to uncontrolled GERD. No actual belly pain. No actual weight gain as per patient. Patient complaining of left leg pain for a few months now. O2 sats noted to be 80s upon EMS arrival at patient's home. Patient received Doxycycline, Solu-Medrol, neb treatment, and Lasix at the ER. 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 Admission Exam Per Admitting Provider GENERAL: uncomfortable, pleasant, minimal respiratory distress SKIN: Pallor, warm HEENT: Bespectacled, pale palpebral conjunctivae, no ptosis, dry buccal mucosa, nasal cannula in place NECK : Supple, no tenderness CHEST : Decreased breath sounds, no tenderness HEART : RRR, no obvious murmurs ABDOMEN: Some distention, nontender EXTREMITIES : Minimal LE swelling, no LE tenderness, no other conspicuous deformities noted NEUROLOGIC : Coherent, no facial asymmetry, no other gross focality Principal Diagnosis Acute on chronic respiratory failure with hypoxia Acute bronchitis due to rhinovirus Acute systolic heart failure Discharge Exam Constitutional + well hydrated; no acute distress Eyes PERRL, conjunctivae normal, anicteric sclerae ENMT external ear and nose normal, oropharynx normal Respiratory On room air. Improved air entry. No wheeze Cardiovascular Rate/Rhythm: regular rate and regular rhythm S1 S2 Gastrointestinal (Abdomen) normal bowel sounds, soft, nontender, no hepatosplenomegaly Neurologic PERRL, EOMI, accommodation nl, no face palsy, no dysarthria Psychiatric A+Ox3, euthymic affect Discharge Data Allergies Allergy/AdvReac Type Severity Reaction Status Date / Time No Known Allergies Allergy Verified 03/06/23 19:40 Consultations 03/06/23 20:18 ED Decision to Admit Stat 03/06/23 23:48 Consult Cardiology Routine 03/07/23 00:42 Consult Pulmonology Routine Ordered Studies 03/06/23 21:50 CT chest diagnostic wo con Stat US venous doppler LE LT Stat Hospital Course (1) Acute systolic CHF (congestive heart failure): Plan 87-year-old male with PMH of chronic diastolic heart failure [2021 TTE, EF 60%], COPD/ILD/coal workers pneumoconiosis/nocturnal hypoxemia on 2 L oxygen at bedtime at baseline, HTN, HLD, CKD [baseline creatinine around 1.7-1.9], prostate cancer status postradiation, GERD, post tobacco abuse presented to the ED 03/06 with complaint of worsening cough with productive sputum for the last several weeks associated with worsening of shortness of breath/leg swelling up to ankles. He is being managed for the following: Acute on chronic hypoxemic respiratory failure Acute bronchitis secondary to enterovirus infection Possible bacterial pneumonia, concern of aspiration ruled out Sepsis POA: Tachypnea, HR>90, WBC of 12.2k LA normal. Patient presented with worsening cough associated with shortness of breath O2 sats noted to be in the 80s upon EMS arrival at patient's home. 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 Patient initially required up to 4 L, currently back to [address] noted small layering pleural effuison and pulm edema. Also had bronchial wall thickening with peribronchial opacities. Widespread bilateral micronodular opacities not significantly changed since 2019 + Rhinovirus on resp panel Was treated with IV antibiotics, steroid and inhalers Was evaluated by curriculum and instruction specialist while inpatient Was successfully weaned off oxygen Discharged on augmentin and azithromycin to complete treatment Discharged on 2 more days of prednisone Continue home inhalers Acute systolic heart failure Elevated troponini Per outpatient chart review, 04/07/2022 echo: EF 60%, grade 2 diastolic dysfunction. Normal LV size and systolic function. RV size and systolic function normal. BNP elevated at 1691 on presentation, CXR with pulmonary edema. BLE Doppler with no DVT. Echo this admission: EF 30 to 35%, mid level and apical segments of LV are sev erely hypokinetic to akinetic with mild expansion. 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 Troponin elevated at 135-133 Creatinine around 1.7-1.9 as per outpatient chart review. Was evaluated by Cardiology Received IV diuresis with significant improvement in respiratory and volume status Cr peaked at 2.49. Coming down to 2.03 today Discussed with Aircraft Launch And Recovery Technician. Recommends continuing home lasix 40mg daily, Coreg, aspirin Hold Irbesartan for now due to renal function Did not proceed with diagnostic coronary angiography at this time due to renal function, clinical status Patient to follow up with Cardiology outpatient Started on rosuvastatin Total Time Total Time Spent Total Time Spent (In Minutes): 50 Total Time Includes: Examination of the Patient, Discharge Planning, Medication Reconciliation and Communication With Other Providers Discharge Plan Discharge Items Patient Disposition: Home - Home Health Services Reason For Visit: RESP FAILURE Discharge Diagnosis: Acute on chronic respiratory failure with hypoxia Acute bronchitis due to rhinovirus Acute systolic heart failure Activity: Resume your previous activity Non-emergency contact: Primary Care Provider, Aircraft Launch And Recovery Technician and Production Solderer Call non-emergency contact if: you have any medication questions and your symptoms worsen Follow-up/Referrals: Ben Cisneros MD [Primary Care Provider] - (Date & Time 03/13/2023 11:20 AM Provider Ben Cisneros MD Department Family Medicine [facility] ) Diet: Heart Healthy and Low Sodium (2gm) Fluids: 2000ml (8 cups) Addtl Attending Provider Instructions: Mr Elliott You came to the hospital complaining of cough and shortness of breath. You were evaluated and managed for the above listed diagnoses. You are being discharged on 2 more days of antibiotics and prednisone. You were started on rosuvastatin daily. Please continue to take your lasix (furosemide) daily. Please stop taking irbesartan and meloxicam for now due to your kidney function until advised otherwise. Please ensure follow up with Cardiology and Pulmonology in the office. Please ensure follow up with your Primary Doctor. It was a pleasure taking care of you. Pending Studies at Discharge: No Stand-Alone Forms: [facility], Smoking Cessation Medications and DC Order Prescriptions: New azithromycin 250 mg Tablet 250 mg PO Q24H 2 Days Qty: 2 0RF Rx Instructions: Starting 03/10/23 prednisone 20 mg Tablet 40 mg PO DAILY 2 Days Qty: 4 0RF Rx Instructions: Starting 03/10/23 rosuvastatin 10 mg Tablet 10 mg PO QAM Qty: 30 0RF amoxicillin-pot clavulanate [Augmentin] 500-125 mg tablet 1 tab PO BID 2 Days Qty: 4 0RF Rx Instructions: Starting on 03/10/23 Continued fluticasone propionate 50 mcg/actuation spray,suspension 2 sprays intranasal DAILY Qty: 16 5RF triamcinolone acetonide 0.1 % ointment 1 applic topical BID PRN (Reason: Skin Irritation) tamsulosin 0.4 mg capsule 0.8 mg PO DAILY aspirin 81 mg tablet,delayed release (DR/EC) 81 mg PO DAILY Centrum Complete 18-400 mg-mcg tablet 1 tab PO DAILY carvedilol 12.5 mg tablet 12.5 mg PO BID furosemide [Lasix] 40 mg Tablet 40 mg PO QAM cyanocobalamin (vitamin B-12) [Vitamin B-12] 100 mcg Tablet 100 mcg PO DAILY citalopram 10 mg tablet 10 mg PO QAM pantoprazole 20 mg tablet,delayed release (DR/EC) 20 mg PO DAILYBB famotidine 20 mg Tablet 20 mg PO HS Serevent Diskus 50 mcg/dose Blister With Device 1 inh INHALATION BID loratadine [Claritin] 10 mg Tablet 10 mg PO DAILY Saline Nasal 0.65 % Aerosol,[place] 1 spray INTRANASAL BID PRN (Reason: NASAL DRYNESS) Atrovent HFA 17 mcg/actuation Hfa Aerosol Inhaler 2 puff INHALATION QID guaifenesin 600 mg Tablet Extended Release 12hr 600 mg PO Q12H PRN (Reason: COUGH/CONGESTION) Discontinued meloxicam 15 mg tablet 15 mg PO DAILY irbesartan 75 mg Tablet 75 mg PO DAILY Discharge Orders: Discharge Order- CHF (Routine); Ordered 03/09/23 Ordered By: Yudith Darden Admission Data Admit Date/Time: 03/06/23 21:53 Attending Provider: Yudith Darden I. Admit Provider: Alban Stone Primary Care Provider: Ben Cisneros Other Providers: Alban Stone ; Becky Silverman ; Israel Ji ; Kelvin Urena ; Artemio Burger ; John Pereira ; Brenton Padilla ; Bekah Mason ; Candelaria Mane ; Becky Dobson ; Klaus Duron ; Douglas Potter ; Margarito Quach ; Andrés Starr ; Felix Ruiz ; Deniz Lynch ; Ansley Cardozo ; Marjan Campos ; Marzena De Other Interventions: Discharge Summary Assessment (RN) Last Done: 03/09/23 13:29
[2023-03-09] MEDS: AZITHROMYCIN 250 MG TAB PO SCH (13:20)
== END 2023-03-09 14:08 | disposition home health service (06) | DRG 871 ==
LOC: ED 18:09 → SUATTDRO 21:53 → 2S 21:53

== ENCOUNTER 2023-03-28 08:34 | Inpatient (IN) ==
[2023-03-28] MEDS ORDERED: methylPREDNISolone 125 MG/2 ML VIAL IV STA (08:42)
[2023-03-28] MEDS ORDERED: ALBUTEROL 0.083% NEBU SOLN 3 ML VIAL NEB STA (08:42)
--- NOTE | 2023-03-28 08:47 | Emergency Department Note ---
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 He admits to cough congestion which started about 2 to 3 days ago. Shortness of breath has significantly worsened. He notes he can no longer talk or move without becoming significantly dyspneic. He has been wearing his oxygen. He denies any headache or change in vision. No chest pain, belly pain, nausea vomiting or diarrhea. No dysuria, urgency, or frequency. PAST MEDICAL HISTORY:See Below PAST SURGICAL HISTORY:See Below FAMILY HISTORY:See Below SOCIAL HISTORY:See Below HOME MEDICATIONS:See Below ALLERGIES:See Below VITALS:See Below PHYSICAL EXAMINATION: GENERAL: Sitting up in bed, alert, well appearing, well nourished, no distress, non-toxic EYE EXAM: normal conjunctiva. PERRL and EOM's grossly intact. OROPHARYNX: mucous membranes are moist NECK: supple, no nuchal rigidity, no adenopathy, non-tender LUNGS: Diffuse wheezing bilaterally. Normal chest wall mechanics HEART: no murmurs, S1 normal and S2 normal ABDOMEN: abdomen soft, non-tender, normo-active bowel sounds, no masses, no rebound or guarding. SKIN: no rashes and no bruising UPPER EXTREMITIES: upper extremities are grossly normal. LOWER EXTREMITIES: No pitting edema. NEURO EXAM: Normal sensorium, cranial nerves II-XII grossly intact, normal spee ch, no gross weakness of arms, no gross weakness of legs. MEDICAL DECISION MAKING: Patient is an 87-year-old male who presents ER in respiratory distress. Upon arrival he is significantly dyspneic and can only talk in one-word answers. He was on a nonrebreather. He was placed on the BiPAP. IV was established blood work was obtained. External records reviewed. Labs show no significant leukocytosis. Mild anemia 11. VBG with a pH of 7.4 and a CO2 of 51. BMP with a creatinine of 1.8 which is close to his baseline. Bilirubin and LFTs was unremarkable. Troponin mildly elevated at 60 which is actually improved from baseline. BNP elevated at 2000. Lipase normal. Pro-Tanmay normal. Viral panel was negative. Chest x-ray with pleural effusion and cephalization and questionable infiltrate in the right lower lobe. Patient was given Rocephin and azithromycin as well as IV Lasix. Patient was discussed with Daphney crump for further evaluation management and treatment. Patient was given steroids and an hour-long neb treatment upon arrival as he had diffuse wheezing. Triage Nursing notes reviewed. Limited review of prior medical records performed Vital Signs: reviewed and remarkable for no significant abnormalities Differential diagnosis: Differential diagnoses includes but is not limited to pneumonia, bronchitis, COPD/Asthma exacerbation, pneumothorax, pulmonary embolism, congestive heart failure, acute coronary syndrome ER treatment provided: See below Diagnostics interpreted by me include EKG and cardiac monitoring as listed below: -Cardiac Monitoring: An order was placed for continuous cardiac monitoring. The monitor shows a rate of 90 with sinus rhythm. -ECG: Sinus rhythm rate of 78 Left axis Septal Q waves T wave version in the lateral leads QTc 462 -Laboratory studies:Interpreted by me as stated above in MDM and shown below. Imaging studies: Xrays: As interpreted by me: Portable AP upright 1 view of the chest shows right pleural effusion/right lower lobe infiltrate with cephalization CTs show: none Consultation(s): As described in [facility] Procedures:none Critical Care: I have personally spent 35 minutes of critical care time in the direct management of this patient. This includes bedside care, interpretation of diagnostic studies, and testing, discussion with consultants, patient, and family members, and other required patient management activities. This 35 minutes is in excess of all separately billable procedures. Past Med/Surg History Medical History CKD (chronic kidney disease), stage III HFrEF (heart failure with reduced ejection fraction) History of prostate cancer s/p XRT with brachy boost HTN (hypertension) 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, coal, workers' Prostate cancer (11/03/14) "Rising PSA to 7.46 Status post ultrasound-guided biopsies revealing adenocarcinoma Gabriela 4+3, biopsy stage T2c Initiation of hormone suppression prior to prostate seed implant, short course Status post prostate seed implant 02/03/2015 with cesium 131 received 8500 cGy 50 seeds placed Status post completion of IMRT/IGRT 04/28/2015 received 4500 cGy " On 05/26/15 14:44 Shira Goldberg wrote "Rising PSA to 7.46 Status post ultrasound-guided biopsies revealing adenocarcinoma Gabriela 4+3, biopsy stage T2c Initiation of hormone suppression prior to prostate seed implant Status post prostate seed implant 02/03/2015 with cesium 131 received 8500 cGy 50 seeds placed Status post completion of IMRT/IGRT 04/28/2015 received 4500 cGy " On 05/01/15 12:43 Sandra Marquez wrote "Rising PSA to 7.46 Status post ultrasound-guided biopsies revealing adenocarcinoma Gabriela 4+3, biopsy stage T2c Initiation of hormone suppression Status post prostate seed implant 02/03/2015 with cesium 131 received 8500 cGy 50 seeds placed Status post completion of IMRT/IGRT 04/28/2015 received 4500 cGy " On 03/17/15 15:55 Sandra Marquez wrote "Rising PSA to 7.46 Status post ultrasound-guided biopsies revealing adenocarcinoma Briggs 4+3, biopsy stage T2c Initiation of hormone suppression Status post prostate seed implant 02/03/2015 with cesium 131 received 8500 cGy 50 seeds placed Now for completion of IMRT/IGRT" Restrictive lung disease Surgical History H/O shoulder surgery History of appendectomy Social History Smoking Status: Never smoker Tobacco Type: Cigarettes Second Hand Exposure: No; Do You Dip or Chew Tobacco: No; Hx Alcohol Use: No Hx Substance Use: No Preferred Language: Malay Communication Ability: Effective Back Maker Required: No Beliefs That Will Affect Care: None marital status: / Current Living Situation: Alone Other Information That Helps Us Care for You: No Feels Safe at Home: Yes Safety Concerns: Feels Safe At This Time Assistive Devices: None Allergies Allergies Allergy/AdvReac Type Severity Reaction Status Date / Time No Known Allergies Allergy Verified 03/28/23 09:56 Home Meds Home Medications Medication Instructions Recorded Confirmed aspirin 81 mg tablet,delayed 81 mg PO DAILY 05/21/19 03/28/23 release tamsulosin 0.4 mg capsule 0.8 mg PO DAILY 05/21/19 03/28/23 triamcinolone acetonide 0.1 % 1 applic topical BID PRN Skin 05/21/19 03/28/23 topical ointment Irritation multivitamin-ferrous 1 tab PO DAILY 05/22/19 03/28/23 fumarate-folic acid 18 mg-400 mcg tablet (Centrum Complete) carvedilol 12.5 mg tablet 12.5 mg PO BID 05/26/20 03/28/23 citalopram 10 mg tablet 10 mg PO QAM 03/06/23 03/28/23 cyanocobalamin (vitamin B-12) 100 100 mcg PO DAILY 03/06/23 03/28/23 mcg tablet (Vitamin B-12) famotidine 20 mg tablet 20 mg PO HS 03/06/23 03/28/23 furosemide 40 mg tablet (Lasix) 40 mg PO QAM 03/06/23 03/28/23 guaifenesin 600 mg tablet, 600 mg PO Q12H PRN COUGH/CONGESTION 03/06/23 03/28/23 extended release 12 hr ipratropium bromide 17 2 puff inhalation QID 03/06/23 03/28/23 mcg/actuation HFA aerosol inhaler (Atrovent HFA) loratadine 10 mg tablet (Claritin) 10 mg PO DAILY 03/06/23 03/28/23 pantoprazole 20 mg tablet,delayed 20 mg PO DAILYBB 03/06/23 03/28/23 release sodium chloride 0.65 % nasal spray 1 spray intranasal BID PRN NASAL 03/06/23 03/28/23 aerosol (Saline Nasal) DRYNESS Previous Rx's Medication Instructions Recorded fluticasone propionate 50 2 sprays intranasal DAILY #16 grams 11/29/19 mcg/actuation nasal spray,suspension rosuvastatin 10 mg tablet 10 mg PO QAM #30 tabs 03/09/23 Results & Data (ED) Vital Signs Vital Signs - 24 hr 03/28/23 08:54 03/28/23 08:35 03/28/23 09:04 Temperature 36.5 C Temperature Source Oral Pulse Rate 68 77 Pulse Rate [Right Finger] Pulse Rate from SpO2 Sensor Respiratory Rate 26 H Respiratory Effort / Characteristics Spontaneous Short of Breath Respiratory Depth Shallow Respiratory Pattern Tachypnea Blood Pressure 136/76 Blood Pressure Mean 96 Blood Pressure Position Sitting Pulse Oximetry 97 97 Oxygen Delivery Method Nebulizer Nebulizer Oxygen Flow Rate 6 Fraction of Inspired Oxygen Sepsis Recent Fever Within 48 Hours No Sepsis New/Unexplained Change in Mental Status N/A Sepsis Action Taken by Nursing No Action Required 03/28/23 09:04 03/28/23 09:04 03/28/23 09:29 Temperature Temperature Source Pulse Rate 74 Pulse Rate [Right Finger] Pulse Rate from SpO2 Sensor Respiratory Rate 24 Respiratory Effort / Characteristics Spontaneous Short of Breath Spontaneous Short of Breath Respiratory Depth Shallow Normal Respiratory Pattern Tachypnea Tachypnea Blood Pressure Blood Pressure Mean Blood Pressure Position Pulse Oximetry 97 94 Oxygen Delivery Method BiPAP BiPAP Nebulizer Oxygen Flow Rate 6 Fraction of Inspired Oxygen 50 Sepsis Recent Fever Within 48 Hours Sepsis New/Unexplained Change in Mental Status Sepsis Action Taken by Nursing 03/28/23 09:31 03/28/23 09:52 03/28/23 08:53 Temperature Temperature Source Pulse Rate 62 68 Pulse Rate [Right Finger] 94 H Pulse Rate from SpO2 Sensor 69 Respiratory Rate 24 22 26 H Respiratory Effort / Characteristics Spontaneous Short of Breath Non-Labored Spontaneous Respiratory Depth Normal Respiratory Pattern Regular Blood Pressure Blood Pressure Mean Blood Pressure Position Pulse Oximetry 94 100 99 Oxygen Delivery Method BiPAP BiPAP Oxygen Flow Rate Fraction of Inspired Oxygen 50 50 Sepsis Recent Fever Within 48 Hours Sepsis New/Unexplained Change in Mental Status Sepsis Action Taken by Nursing 03/28/23 09:00 03/28/23 09:00 03/28/23 09:30 Temperature Temperature Source Pulse Rate 71 Pulse Rate [Right Finger] Pulse Rate from SpO2 Sensor 71 Respiratory Rate 27 H Respiratory Effort / Characteristics Respiratory Depth Respiratory Pattern Blood Pressure 131/80 116/75 Blood Pressure Mean 101 92 Blood Pressure Position Pulse Oximetry 100 Oxygen Delivery Method BiPAP Oxygen Flow Rate Fraction of Inspired Oxygen Sepsis Recent Fever Within 48 Hours Sepsis New/Unexplained Change in Mental Status Sepsis Action Taken by Nursing 03/28/23 09:30 03/28/23 10:00 Temperature Temperature Source Pulse Rate 63 62 Pulse Rate [Right Finger] Pulse Rate from SpO2 Sensor 64 62 Respiratory Rate 23 17 Respiratory Effort / Characteristics Respiratory Depth Respiratory Pattern Blood Pressure Blood Pressure Mean Blood Pressure Position Pulse Oximetry 100 100 Oxygen Delivery Method BiPAP BiPAP Oxygen Flow Rate Fraction of Inspired Oxygen Sepsis Recent Fever Within 48 Hours Sepsis New/Unexplained Change in Mental Status Sepsis Action Taken by Nursing Laboratory Data 03/28/23 08:53 06/27/23 08:53 Lab Results 03/28/23 03/28/23 03/28/23 Range/Units 08:53 08:53 08:53 WBC 11.73 H (4.8-10.8) K/ul RBC 3.80 L (4.70-6.10) M/uL Hgb 11.3 L (14.0-18.0) g/dl Hct 34.1 L (42.0-52.0) % MCV 89.7 (80.0-100.0) fL MCH 29.7 (25.0-34.0) pg MCHC 33.1 (32.0-36.0) g/dL RDW Std Deviation 44.7 (36.4-46.3) fL RDW Coeff of Nehemias 13.8 (11.5-14.5) % Plt Count 196 (130-400) K/uL MPV 10.6 (9.4-12.4) fL Immature Gran % (Auto) 0.4 % Neut % (Auto) 82.8 % Lymph % (Auto) 7.1 % Forest % (Auto) 7.4 % Eos % (Auto) 1.4 % Baso % (Auto) 0.9 % Neut # (Auto) 9.71 H (1.40-6.50) K/uL Lymph # (Auto) 0.83 L (1.2-3.4) K/uL Forest # (Auto) 0.87 H (0.11-0.59) K/uL Eos # (Auto) 0.16 (0-0.50) K/uL Baso # (Auto) 0.11 (0-0.2) K/uL Immature Gran # (Auto) 0.05 (0.01-0.20) K/uL VBG pH (7.36-7.41) VBG pCO2 (38-50) mmHg VBG pO2 mmHg VBG HCO3 mmol/L VBG O2 Saturation % VBG Base Excess mEq/L Sodium 136 (136-145) mmol/L Potassium 4.5 (3.5-5.1) mmol/L Chloride 102 (98-107) mmol/L Carbon Dioxide 28 (21-32) mmol/L Anion Gap 6 (3-11) BUN 46 H (6-23) mg/dl Creatinine 1.81 H (0.6-1.4) mg/dl Est Cr Clr Drug Dosing 33.4 ml/min Est GFR ( Amer) 38.1 ml/min Est GFR (Non-Af Amer) 32.9 ml/min BUN/Creatinine Ratio 25.4 H (10-20) Glucose 143 H (70-99(Fasting)) mg/dl Calcium 9.0 (8.6-10.3) mg/dl Total Bilirubin 0.7 (0.2-1.0) mg/dl AST 18 (13-39) U/L ALT 17 (7-52) U/L Alkaline Phosphatase 79 (34-104) U/L Troponin I High Sens 58.5 H* (0-20) pg/ml B-Natriuretic Peptide 2281 H (0-100) pg/ml Total Protein 7.1 (6.0-8.3) gm/dl Albumin 3.4 (3.4-5.0) gm/dl Globulin 3.7 (2.5-4.0) gm/dl Albumin/Globulin Ratio 0.9 (0.9-2) Lipase 40 (11-82) U/L Procalcitonin (0-0.5) ng/ml Adenovirus (PCR) (NotDetected) B. pertussis DNA (PCR) (NotDetected) B.parapertussis DNA PCR (NotDetected) C. pneumoniae DNA (PCR) (NotDetected) Coronavirus OC43 (PCR) (NotDetected) Coronavirus HKU1 (PCR) (NotDetected) Coronavirus 229E (PCR) (NotDetected) SARS-CoV-2 (PCR) (NotDetected) Coronavirus NL63 (PCR) (NotDetected) Human Metapneumovir PCR (NotDetected) Influenza Type A (PCR) (NotDetected) Influenza Type B (PCR) (NotDetected) M. pneumoniae (PCR) (NotDetected) Parainfluenza 1 (PCR) (NotDetected) Parainfluenza 2 (PCR) (NotDetected) Parainfluenza 3 (PCR) (NotDetected) Parainfluenza 4 (PCR) (NotDetected) RSV (PCR) (NotDetected) Entero/Rhino (PCR) (NotDetected) 03/28/23 03/28/23 03/28/23 Range/Units 08:53 08:53 09:11 WBC (4.8-10.8) K/ul RBC (4.70-6.10) M/uL Hgb (14.0-18.0) g/dl Hct (42.0-52.0) % MCV (80.0-100.0) fL MCH (25.0-34.0) pg MCHC (32.0-36.0) g/dL RDW Std Deviation (36.4-46.3) fL RDW Coeff of Nehemias (11.5-14.5) % Plt Count (130-400) K/uL MPV (9.4-12.4) fL Immature Gran % (Auto) % Neut % (Auto) % Lymph % (Auto) % Forest % (Auto) % Eos % (Auto) % Baso % (Auto) % Neut # (Auto) (1.40-6.50) K/uL Lymph # (Auto) (1.2-3.4) K/uL Forest # (Auto) (0.11-0.59) K/uL Eos # (Auto) (0-0.50) K/uL Baso # (Auto) (0-0.2) K/uL Immature Gran # (Auto) (0.01-0.20) K/uL VBG pH 7.40 (7.36-7.41) VBG pCO2 51 H (38-50) mmHg VBG pO2 33 mmHg VBG HCO3 32 mmol/L VBG O2 Saturation < 60.0 % VBG Base Excess 5.5 mEq/L Sodium (136-145) mmol/L Potassium (3.5-5.1) mmol/L Chloride (98-107) mmol/L Carbon Dioxide (21-32) mmol/L Anion Gap (3-11) BUN (6-23) mg/dl Creatinine (0.6-1.4) mg/dl Est Cr Clr Drug Dosing ml/min Est GFR ( Amer) ml/min Est GFR (Non-Af Amer) ml/min BUN/Creatinine Ratio (10-20) Glucose (70-99(Fasting)) mg/dl Calcium (8.6-10.3) mg/dl Total Bilirubin (0.2-1.0) mg/dl AST (13-39) U/L ALT (7-52) U/L Alkaline Phosphatase (34-104) U/L Troponin I High Sens (0-20) pg/ml B-Natriuretic Peptide (0-100) pg/ml Total Protein (6.0-8.3) gm/dl Albumin (3.4-5.0) gm/dl Globulin (2.5-4.0) gm/dl Albumin/Globulin Ratio (0.9-2) Lipase (11-82) U/L Procalcitonin < 0.05 (0-0.5) ng/ml Adenovirus (PCR) Not Detected (NotDetected) B. pertussis DNA (PCR) Not Detected (NotDetected) B.parapertussis DNA PCR Not Detected (NotDetected) C. pneumoniae DNA (PCR) Not Detected (NotDetected) Coronavirus OC43 (PCR) Not Detected (NotDetected) Coronavirus HKU1 (PCR) Not Detected (NotDetected) Coronavirus 229E (PCR) Not Detected (NotDetected) SARS-CoV-2 (PCR) Not Detected (NotDetected) Coronavirus NL63 (PCR) Not Detected (NotDetected) Human Metapneumovir PCR Not Detected (NotDetected) Influenza Type A (PCR) Not Detected (NotDetected) Influenza Type B (PCR) Not Detected (NotDetected) M. pneumoniae (PCR) Not Detected (NotDetected) Parainfluenza 1 (PCR) Not Detected (NotDetected) Parainfluenza 2 (PCR) Not Detected (NotDetected) Parainfluenza 3 (PCR) Not Detected (NotDetected) Parainfluenza 4 (PCR) Not Detected (NotDetected) RSV (PCR) Not Detected (NotDetected) Entero/Rhino (PCR) Not Detected (NotDetected) 03/28/23 Range/Units 09:35 WBC (4.8-10.8) K/ul RBC (4.70-6.10) M/uL Hgb (14.0-18.0) g/dl Hct (42.0-52.0) % MCV (80.0-100.0) fL MCH (25.0-34.0) pg MCHC (32.0-36.0) g/dL RDW Std Deviation (36.4-46.3) fL RDW Coeff of Nehemias (11.5-14.5) % Plt Count (130-400) K/uL MPV (9.4-12.4) fL Immature Gran % (Auto) % Neut % (Auto) % Lymph % (Auto) % Forest % (Auto) % Eos % (Auto) % Baso % (Auto) % Neut # (Auto) (1.40-6.50) K/uL Lymph # (Auto) (1.2-3.4) K/uL Forest # (Auto) (0.11-0.59) K/uL Eos # (Auto) (0-0.50) K/uL Baso # (Auto) (0-0.2) K/uL Immature Gran # (Auto) (0.01-0.20) K/uL VBG pH (7.36-7.41) VBG pCO2 (38-50) mmHg VBG pO2 mmHg VBG HCO3 mmol/L VBG O2 Saturation % VBG Base Excess mEq/L Sodium (136-145) mmol/L Potassium (3.5-5.1) mmol/L Chloride (98-107) mmol/L Carbon Dioxide (21-32) mmol/L Anion Gap (3-11) BUN (6-23) mg/dl Creatinine (0.6-1.4) mg/dl Est Cr Clr Drug Dosing ml/min Est GFR ( Amer) ml/min Est GFR (Non-Af Amer) ml/min BUN/Creatinine Ratio (10-20) Glucose (70-99(Fasting)) mg/dl Calcium (8.6-10.3) mg/dl Total Bilirubin (0.2-1.0) mg/dl AST (13-39) U/L ALT (7-52) U/L Alkaline Phosphatase (34-104) U/L Troponin I High Sens (0-20) pg/ml B-Natriuretic Peptide (0-100) pg/ml Total Protein (6.0-8.3) gm/dl Albumin (3.4-5.0) gm/dl Globulin (2.5-4.0) gm/dl Albumin/Globulin Ratio (0.9-2) Lipase (11-82) U/L Procalcitonin (0-0.5) ng/ml Adenovirus (PCR) (NotDetected) B. pertussis DNA (PCR) (NotDetected) B.parapertussis DNA PCR (NotDetected) C. pneumoniae DNA (PCR) (NotDetected) Coronavirus OC43 (PCR) (NotDetected) Coronavirus HKU1 (PCR) (NotDetected) Coronavirus 229E (PCR) (NotDetected) SARS-CoV-2 (PCR) NEGATIVE (NotDetected) Coronavirus NL63 (PCR) (NotDetected) Human Metapneumovir PCR (NotDetected) Influenza Type A (PCR) (NotDetected) Influenza Type B (PCR) (NotDetected) M. pneumoniae (PCR) (NotDetected) Parainfluenza 1 (PCR) (NotDetected) Parainfluenza 2 (PCR) (NotDetected) Parainfluenza 3 (PCR) (NotDetected) Parainfluenza 4 (PCR) (NotDetected) RSV (PCR) (NotDetected) Entero/Rhino (PCR) (NotDetected) Administered Medications Discontinued Medications Albuterol (Albuterol 0.083% Nebu Soln 3 Ml Vial) 10 mg NEB NOW STA; Protocol Stop: 03/28/23 08:43 Last Admin: 03/28/23 08:49 Dose: 10 mg Documented By: EMILY Furosemide (Furosemide 40 Mg/4 Ml Vial) 40 mg IV NOW STA Stop: 03/28/23 09:36 Last Admin: 03/28/23 10:32 Dose: 40 mg Documented By: ELVIA Ceftriaxone Sodium (Rocephin) 2,000 mg in 70 mls @ 140 mls/hr IV NOW STA Stop: 03/28/23 10:09 Last Infusion: 03/28/23 11:08 Dose: 0 mls/hr Documented By: Admin: 03/28/23 10:32 Dose: 140 mls/hr Documented By: ELVIA Azithromycin 500 mg/ Dextrose 255 mls @ 125 mls/hr IV ONE ONE Stop: 03/28/23 11:42 Last Infusion: 03/28/23 12:55 Dose: 0 mls/hr Documented By: Admin: 03/28/23 10:32 Dose: 125 mls/hr Documented By: ELVIA Methylprednisolone (Methylprednisolone 125 Mg/2 Ml Vial) 60 mg IV NOW STA Stop: 03/28/23 08:43 Last Admin: 03/28/23 08:51 Dose: 60 mg Documented By: [facility] Imaging Data Radiologist's Impression: Chest X-Ray 03/28/23 08:42 XR chest 1V portable CLINICAL HISTORY: Chest pain, nonspecific COMPARISON STUDY: Chest radiograph and chest CT March 06, 2023. FINDINGS: There is no pneumothorax. Small bilateral pleural effusions are again noted. Bibasilar opacities are noted. Right basilar opacity has increased. Cardiomediastinal silhouette is stable. Reticulonodular interstitial thickening persists. IMPRESSION: 1. Persistent interstitial thickening which favors interstitial pulmonary edema superimposed upon innumerable small pulmonary nodules which are similar to CT of June 21, 2019. 2. Small bilateral pleural effusions. Increase in right basilar opacity. This could reflect atelectasis or pneumonia. ACT 112: Negative or not required by law. Electronically signed by: Alexx Foster M.D. 03/28/2023 9:08 AM Discharge Plan Visit Data Chief Complaint: Shortness of Breath/Dyspnea Stated Complaint: SOB, EDEMA ED Provider: Heraclio Reid Discharge Problem: Acute respiratory distress, Restrictive lung disease, Respiratory failure, 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, coal, workers' Patient Disposition: Admitted As Inpatient Discharge Instructions Interventions: ED Discharge Assessment Last Done: 03/28/23 11:22
[2023-03-28 09:08] LABS: Base Excess VBG 5.5 mEq/L; HCO3 VBG 32 mmol/L; Oxygen Saturation VBG < 60.0 %; PCO2 VBG 51 mmHg (38-50); PO2 VBG 33 mmHg
--- NOTE | 2023-03-28 09:10 | XRay Report ---
XR chest 1V portable CLINICAL HISTORY: Chest pain, nonspecific COMPARISON STUDY: Chest radiograph and chest CT March 06, 2023. FINDINGS: There is no pneumothorax. Small bilateral pleural effusions are again noted. Bibasilar opac ities are noted. Right basilar opacity has increased. Cardiomediastinal silhouette is stable. Reticul onodular interstitial thickening persists. IMPRESSION: 1. Persistent interstitial thickening which favors interstitial pulmonary edema superimposed upon inn umerable small pulmonary nodules which are similar to CT of June 21, 2019. 2. Small bilateral pleural effusions. Increase in right basilar opacity. This could reflect atelectas is or pneumonia. ACT 112: Negative or not required by law. Electronically signed by: Alexx Foster M.D. 03/28/2023 9:08 AM
[2023-03-28 09:29] LABS: Albumin Globulin Ratio 0.9 (0.9-2); Albumin Level 3.4 gm/dl (3.4-5.0); BUN Creatinine Ratio 25.4 (10-20); Bilirubin,Total 0.7 mg/dl (0.2-1.0); Creatinine Clr Calc Pharmacy 33.4 ml/min; Est GFR (African American) 38.1 ml/min; Est GFR (Non-African American) 32.9 ml/min; Globulin 3.7 gm/dl (2.5-4.0); Potassium 4.5 mmol/L (3.5-5.1); Total Protein 7.1 gm/dl (6.0-8.3)
[2023-03-28] MEDS ORDERED: FUROSEMIDE 40 MG/4 ML VIAL IV STA (09:35)
[2023-03-28] MEDS ORDERED: AZITHROMYCIN 500 MG in DEXTROSE 5% 250 ML IV ONE (09:40)
[2023-03-28] MEDS ORDERED: cefTRIAXone SODIUM 2,000 MG/70 ML BAG IV STA (09:40)
[2023-03-28 09:48] LABS: Troponin I High Sensitivity 58.5 pg/ml (0-20)
[2023-03-28 09:53] LABS: Hematocrit (blood only) 34.1 % (42.0-52.0); Hemoglobin 11.3 g/dl (14.0-18.0); Mean Corpuscular Hemoglobin 29.7 pg (25.0-34.0); Mean Corpuscular Hgb Conc 33.1 g/dL (32.0-36.0); Mean Corpuscular Volume 89.7 fL (80.0-100.0); Mean Platelet Volume 10.6 fL (9.4-12.4); Platelet Count 196 K/uL (130-400); RDW Coefficient of Variation 13.8 % (11.5-14.5); RDW Standard Deviation 44.7 fL (36.4-46.3); White Blood Count 11.73 K/ul (4.8-10.8)
[2023-03-28 09:55] LABS: Basophils # (auto) 0.11 K/uL (0-0.2); Basophils % (auto) 0.9 %; Eosinophils # (auto) 0.16 K/uL (0-0.50); Eosinophils % (auto) 1.4 %; Immature Granulocytes # (auto) 0.05 K/uL (0.01-0.20); Immature Granulocytes % (auto) 0.4 %; Lymphocytes # (auto) 0.83 K/uL (1.2-3.4); Lymphocytes % (auto) 7.1 %; Monocytes # (auto) 0.87 K/uL (0.11-0.59); Monocytes % (auto) 7.4 %; Neutrophils # (auto) 9.71 K/uL (1.40-6.50); Neutrophils % (auto) 82.8 %
--- NOTE | 2023-03-28 11:31 | History & Physical Report ---
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 Patient recently admitted to [facility] 03/06 through 03/09 for multifactorial acute hypoxic respiratory failure due to acute systolic heart abebe lure, acute bronchitis secondary to rhinovirus, exacerbation of restrictive lung disease. Patient was treated with IV Lasix and discharged home on home dose Lasix 40 mg daily. Due to worsening renal failure, patient's irbesartan was discontinued. Upon arrival to the ED, patient was in respiratory distress requiring BiPap, no hypoxia documented Received Lasix 40mg IV, Solumedrol 60mg IV, and neb treatment with improvement in symptoms CXR - pulmonary edema, BL pleueral effusions, right basilar opacity; proBNP 2281 Echo 03/07/23 - EF 30-35%; repeat echo ordered HS trop 58.5 -- improved from last admission, likely due to demand ischemia in the setting of CHF, respiratory failure. No reports of chest pain, EKG without acute ST changes. Continue to trend trop. Will give an additional Lasix 20mg IV this evening, then start Lasix 40mg IV BID from tomorrow pending renal functions and volume status Continue beta stanford, ARB d/c'd during last admission due to worsening renal function Low Na+ diet, daily standing weights, strict I/Os Received IV ceftriaxone and IV azithromycin in the ED. WBC 11.7K, afebrile, procal < 0.05. Suspect CHF is causing acute exacerbation of underlying restrictive lung disease. Will monitor off antibiotics for now. Biofire negative Continue with Prednisone 40mg PO daily and pulmonary toilet with mucinex, nebs, flutter valve, IS Wean BiPap as able, typically wears 2L HS and PRN during the day (5) CKD (chronic kidney disease), stage III: Plan: Creat 1.8 Recent baseline high 1s-low 2s Irbesartan discontinue during last admission due to worsening renal function Monitor renal functions daily DVT PROPHYLAXIS SQ Heparin Patient seen in collaboration with Dr. Palacios. I spent a total of 75 minutes coordinating, documenting, and providing care for this patient excluding time spent in the performance of separately billed services. This included personally reviewing all current laboratories and imaging studies, medication reconciliation, outpatient chart review, and discussion with specialists. History of Present Illness Chief Complaint: Shortness of breath Primary Care Provider: Ben Cisneros MD 87-year-old male with PMH coworkers pneumoconiosis, restrictive lung disease, HFrEF, nocturnal hypoxemia, HTN, CKD stage III, GERD, and other problems listed below who presents to the ED for evaluation of shortness of breath. History obtained from the patient and review of recent inpatient admission records, outpatient PCP and cardiology notes. Patient recently admitted to [facility] 03/06 through 03/09 for multifactorial acute hypoxic respiratory failure due to acute systolic heart failure, acute bronchitis secondary to rhinovirus, exacerbation of restrictive lung disease. Patient was treated with IV Lasix and discharged home on home dose Lasix 40 mg daily. Due to worsening renal failure, patient's irbesartan was discontinued. Cardiac cath was deferred due to renal dysfunction and clinical status. Patient was also treated with empiric IV antibiotics and steroids. Patient reports doing well since arriving home until 2 days ago. Typically wears 2 L of oxygen at night and 2 L during the day. Patient states that he has been rarely using daytime oxygen since arriving home from the hospital. He noted sudden onset exertional shortness of breath and worsening orthopnea. Has been using 2L oxygen continuously the past 2 days. Over the past week, patient noted increasing bilateral lower extremity and pedal edema. Daughter noted increased abdominal distention this morning. Patient reports his weights have been stable however did note a 2 pound weight gain this morning. He reports a chronic cough that is unchanged from baseline. Cough is productive for yellow sputum at times which is unchanged as well. He denies chest pain and palpitations. No lightheadedness, dizziness, diaphoresis, syncopal events. Denies fevers and chills. No abdominal pain, nausea, vomiting, diarrhea. Denies urinary symptoms. In the ED, patient was in respiratory distress requiring BiPAP therapy. He was given nebulizer treatment, IV azithromycin, IV ceftriaxone, IV Lasix 40 mg, IV Solu-Medrol 60 mg. He reports much improvement in his symptoms. Labs show WBC 11.7K, creatinine 1.8, HS troponin 58.5, proBNP 2200. CXR shows signs of pulmonary edema, bilateral pleural effusions, right basilar opacity. Allergies Allergy/AdvReac Type Severity Reaction Status Date / Time No Known Allergies Allergy Verified 03/28/23 09:56 Home Medications Medication Instructions Recorded Confirmed Type aspirin 81 mg tablet,delayed 81 mg PO DAILY 05/21/19 03/28/23 History release tamsulosin 0.4 mg capsule 0.8 mg PO DAILY 05/21/19 03/28/23 History triamcinolone acetonide 0.1 % 1 applic topical BID PRN Skin 05/21/19 03/28/23 H istory topical ointment Irritation multivitamin-ferrous 1 tab PO DAILY 05/22/19 03/28/23 History fumarate-folic acid 18 mg-400 mcg tablet (Centrum Complete) fluticasone propionate 50 2 sprays intranasal DAILY #16 grams 11/29/19 03/28/23 Rx mcg/actuation nasal spray,suspension carvedilol 12.5 mg tablet 12.5 mg PO BID 05/26/20 03/28/23 History citalopram 10 mg tablet 10 mg PO QAM 03/06/23 03/28/23 History cyanocobalamin (vitamin B-12) 100 100 mcg PO DAILY 03/06/23 03/28/23 History mcg tablet (Vitamin B-12) famotidine 20 mg tablet 20 mg PO HS 03/06/23 03/28/23 History furosemide 40 mg tablet (Lasix) 40 mg PO QAM 03/06/23 03/28/23 History guaifenesin 600 mg tablet, 600 mg PO Q12H PRN COUGH/CONGESTION 03/06/23 03/28/23 History extended release 12 hr ipratropium bromide 17 2 puff inhalation QID 03/06/23 03/28/23 History mcg/actuation HFA aerosol inhaler (Atrovent HFA) loratadine 10 mg tablet (Claritin) 10 mg PO DAILY 03/06/23 03/28/23 History pantoprazole 20 mg tablet,delayed 20 mg PO DAILYBB 03/06/23 03/28/23 History release sodium chloride 0.65 % nasal spray 1 spray intranasal BID PRN NASAL 03/06/23 03/28/23 History aerosol (Saline Nasal) DRYNESS rosuvastatin 10 mg tablet 10 mg PO QAM #30 tabs 03/09/23 03/28/23 Rx Past Med/Surg History Medical History CKD (chronic kidney disease), stage III HFrEF (heart failure with reduced ejection fraction) History of prostate cancer s/p XRT with brachy boost HTN (hypertension) 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, 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, 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' Prostate cancer (11/03/14) "Rising PSA to 7.46 Status post ultrasound-guided biopsies revealing adenocarcinoma [place] 4+3, biopsy stage T2c Initiation of hormone suppression prior to prostate seed implant, short course Status post prostate seed implant 02/03/2015 with cesium 131 received 8500 cGy 50 seeds placed Status post completion of IMRT/IGRT 04/28/2015 received 4500 cGy " On 05/26/15 14:44 Shira Goldberg wrote "Rising PSA to 7.46 Status post ultrasound-guided biopsies revealing adenocarcinoma [place] 4+3, biopsy stage T2c Initiation of hormone suppression prior to prostate seed implant Status post prostate seed implant 02/03/2015 with cesium 131 received 8500 cGy 50 seeds placed Status post completion of IMRT/IGRT 04/28/2015 received 4500 cGy " On 05/01/15 12:43 Sandra Marquez wrote "Rising PSA to 7.46 Status post ultrasound-guided biopsies revealing adenocarcinoma [place] 4+3, biopsy stage T2c Initiation of hormone suppression Status post prostate seed implant 02/03/2015 with cesium 131 received 8500 cGy 50 seeds placed Status post completion of IMRT/IGRT 04/28/2015 received 4500 cGy " On 03/17/15 15:55 Sandra Marquez wrote "Rising PSA to 7.46 Status post ultrasound-guided biopsies revealing adenocarcinoma [place] 4+3, biopsy stage T2c Initiation of hormone suppression Status post prostate seed implant 02/03/2015 with cesium 131 received 8500 cGy 50 seeds placed Now for completion of IMRT/IGRT" Restrictive lung disease Surgical History H/O shoulder surgery History of appendectomy Social History Smoking Status: Never smoker Tobacco Type: Cigarettes Second Hand Exposure: No; Do You Dip or Chew Tobacco: No; Hx Alcohol Use: No Hx Substance Use: No Preferred Language: Malay Communication Ability: Effective Slag Worker Required: No Beliefs That Will Affect Care: None marital status: / Current Living Situation: Alone Other Information That Helps Us Care for You: No Feels Safe at Home: Yes Safety Concerns: Feels Safe At This Time Assistive Devices: None Review of Systems Review of Systems: ROS per HPI, all other systems reviewed and negative Physical Exam Constitutional: WD/WN, vitals as above no acute distress Eyes: PERRL, conjunctivae normal, anicteric sclerae ENMT: external ear and nose normal, oropharynx normal Respiratory: normal respiratory effort; no respiratory distress Auscultation: + diminished lung sounds (Bilateral bases) and + wheezes (Bilateral, expiratory) on Bipap, resting comfortably Cardiovascular: Rate/Rhythm: regular rate and regular rhythm Vessels: normal peripheral pulses Extremities: + edema (+2-3 pitting edema BLE/BL pedal ) Gastrointestinal (Abdomen): Inspection/Auscultation: + abdomen distended (semi firm) and normal bowel sounds Percussion/Palpation: abdomen nontender Musculoskeletal: no cyanosis or clubbing, extremities motor strength 5/5 Skin: no rashes, warm and dry Neurologic: PERRL, EOMI, accommodation nl, no face palsy, no dysarthria Psychiatric: A+Ox3, euthymic affect Results & Data Results & Data Vital Signs (Past 12 Hours) Vital Signs Temp Pulse Pulse Resp BP Pulse Ox O2 Del Method 03/28/23 11:00 71 28 H 99 BiPAP 03/28/23 11:00 105/66 03/28/23 11:22 BiPAP 03/28/23 10:30 62 21 100 BiPAP 03/28/23 10:30 118/69 03/28/23 10:00 62 17 100 BiPAP 03/28/23 09:30 63 23 100 BiPAP 03/28/23 09:30 116/75 03/28/23 09:00 71 27 H 100 BiPAP 03/28/23 09:00 131/80 03/28/23 08:53 68 26 H 99 BiPAP 03/28/23 09:52 62 22 100 03/28/23 09:31 94 H 24 94 BiPAP 03/28/23 09:29 74 24 94 03/28/23 09:04 97 BiPAP, Nebulizer 03/28/23 09:04 BiPAP 03/28/23 09:04 97 Nebulizer 03/28/23 08:35 36.5 C 77 26 H 136/76 97 Nebulizer 03/28/23 08:54 68 O2 Flow Rate FiO2 03/28/23 11:00 03/28/23 11:00 03/28/23 11:22 03/28/23 10:30 03/28/23 10:30 03/28/23 10:00 03/28/23 09:30 03/28/23 09:30 03/28/23 09:00 03/28/23 09:00 03/28/23 08:53 03/28/23 09:52 50 03/28/23 09:31 50 03/28/23 09:29 50 03/28/23 09:04 6 03/28/23 09:04 03/28/23 09:04 03/28/23 08:35 6 03/28/23 08:54 Laboratory Results Short CBC 03/28/23 Range/Units 08:53 WBC 11.73 H (4.8-10.8) K/ul Hgb 11.3 L (14.0-18.0) g/dl Hct 34.1 L (42.0-52.0) % Plt Count 196 (130-400) K/uL BMP 03/28/23 08:53 Sodium 136 Potassium 4.5 Chloride 102 Carbon Dioxide 28 BUN 46 H Creatinine 1.81 H Glucose 143 H Calcium 9.0 Liver Function 03/28/23 Range/Units 08:53 Total Bilirubin 0.7 (0.2-1.0) mg/dl AST 18 (13-39) U/L ALT 17 (7-52) U/L Alkaline Phosphatase 79 (34-104) U/L Albumin 3.4 (3.4-5.0) gm/dl Diagnostic Findings Chest X-Ray 03/28/23 08:42 XR chest 1V portable CLINICAL HISTORY: Chest pain, nonspecific COMPARISON STUDY: Chest radiograph and chest CT March 06, 2023. FINDINGS: There is no pneumothorax. Small bilateral pleural effusions are again noted. Bibasilar opacities are noted. Right basilar opacity has increased. Cardiomediastinal silhouette is stable. Reticulonodular interstitial thickening persists. IMPRESSION: 1. Persistent interstitial thickening which favors interstitial pulmonary edema superimposed upon innumerable small pulmonary nodules which are similar to CT of June 21, 2019. 2. Small bilateral pleural effusions. Increase in right basilar opacity. This could reflect atelectasis or pneumonia. ACT 112: Negative or not required by law. Electronically signed by: Alexx Foster M.D. 03/28/2023 9:08 AM Code Status & VTE Plan Code Status Patient is a DNR as per my discussion with him. VTE Prophylaxis Plan VTE Prophylaxis will be ordered: Yes Supervising Physician Co-Signing Physician Notes I have seen and examined the patient and have discussed the case with the provider above. I agree with the assessment and plan as stated. The patient is an 87-year-old man recently admitted to the hospital for heart failure with reduced ejection fraction presenting again with shortness of breath for 2 to 3 days. Work-up and clinical presentation is consistent with a fluid overloaded state and he has been started on intravenous Lasix. He is requiring BiPAP therapy here in the ER. With BiPAP he appears to be comfortable and exhibiting little to no respiratory distress. Wheezing is present throughout all lung varela. Cardiac exam reveals S1-S2 heard with no evidence of murmurs gallops or rubs. He does have trace edema bilaterally in his lower extremities. He does report gaining weight in his abdomen which is soft nontender nondistended. He denies any dietary indiscretions and reports eating no salt in his food. He denies any outings to restaurants head denies any medication changes other than what was given to him at previous discharge. He does have pneumoconiosis with a chronic cough and chronic oxygen therapy is required. He reports compliance with Lasix since discharge. He denies any chest pain today work-up includes a CBC with a very mild elevation in white count to 11.7. H&H reflects anemia which is stable from recent screenings. Chemistry panel reveals an improvement in renal disease with a BUN of 46 and creatinine of 1.81 down from BUN 64, creatinine 2.03 three weeks ago. Troponin is mildly elevated at 58.5. BNP is elevated at 22 881. Procalcitonin is negative. Chest x-ray reveals pulmonary edema and bilateral pleural effusions with an increase in right basilar opacity that appears worse today than his recent chest x-ray on 03/06/2023. Per his echocardiogram in March, he has LVH, severe hypokinesis of his left ventricle with apical ballooning cardiomyopathy versus ischemic cardiomyopathy. And a known ejection fraction of 30 to 35%. Right ventricular systolic pressure also elevated at 40 to 50 mmHg. EKG revealed sinus rhythm rate of 78 with no signi ficant differences from previous EKGs. There is no evidence of acute ischemia. 1. Acute on chronic heart failure with reduced ejection fraction 2. 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 Acute on chronic respiratory failure secondary to #1 with pleural effusions 4. CKD stage III Currently receiving BiPAP and was given Lasix 40 IV about two hours ago with no urine output yet. Low is not in place however patient is confident in using the urinal to gauge strict output. Continue tracking electrolytes and adjusting as needed with ongoing intravenous diuresis planned, including later this evening. Defer to cardiology for guideline directed medical therapy however recognize the fact he is not on KENNETH inhibitor and possibly MRA due to renal dysfunction. He continues on carvedilol 12.5 twice daily. Empagliflozin should be considered as studies reveal an improvement in symptoms within 15 days. He was started on Rocephin and azithromycin in the ER, however, I agree with holding abx for now given lack of symptoms and clear cause of hypoxia. Agree with prednisone short course and nebulized bronchodilators. Philip,
--- NOTE | 2023-03-28 11:34 | Cardiology Consultation ---
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 Recent hospital admission at the beginning of March with similar presentation. High-sensitivity troponin minimally elevated, EKG without acute ST segment changes. Elevated troponin unlikely to be related to acute coronary syndrome that is more likely present in the setting of demand. Echocardiogram images pending. PLAN: -Continue IV diuresis with Lasix, patient was given 40 mg in the ED. Spoke with hospitalist team. We will plan on a second dose of 20 mg IV Lasix this evening. BMP in the a.m. Anticipation of 40 mg twice daily starting tomorrow pending BMP results. -Potassium goal of 4.0 and magnesium goal of 2.0, replete as necessary. -Continue goal-directed medical therapy with carvedilol as ordered. Not on KENNETH inhibitor due to renal dysfunction. -Treatment of possible pneumonia per primary team. O2/BiPAP use encouraged, wean as tolerated. Case discussed with Dr. Urena, will follow. Supervising Physician Co-Signing Physician Notes Patient seen and examined presents with acute decompensation of chronic systolic heart failure with right pleural effusion. Echocardiogram demonstrates extensive and mid and apical wall motion abnormality with diminished LV systolic function EF 25 to 30% We will continue IV diuretics Afterload reduction with KENNETH/ARB previously discontinued due to acute renal insufficiency. Consider afterload reduction with hydralazine and nitrates depending on blood pressure response to diuresis Agree with treating underlying pulmonary disease Overall prognosis limited History of Present Illness Reason for Consultation: Hypoxic respiratory failure/CHF Requesting Physician: Dionicio augustine History of Present Illness Medically complex 87-year-old male with past medical history significant for chronic respiratory failure secondary to ILD/mineral resources inspector's pneumonoconiosis who initially presented to [facility] emergency department due to cough/congestion x2-3 days with significant worsening of shortness of breath and lower extremity edema/abdominal bloating. In the ED patient was experiencing increased work of breathing and was placed on BiPAP. Normally wears O2 at night, has been wearing during the day since Monday without relief in symptoms. Chest x-ray showed pulmonary edema and small bilateral pleural effusions with right greater than left. ?Atelectasis versus pneumonia. Lab work revealing stable CBC, creatinine at baseline, 1.8. Sodium and potassium within normal limits. High-sensitivity troponin mildly elevated, 58.5. BNP elevated, 2281. Bio fire pending, COVID-negative. Patient was given 40 mg of IV Lasix as well as an albuterol nebulizer, antibiotics, and steroids. Weight appears to be up about 5-6 pounds since discharge. Recent hospital admission at the beginning of March with similar presentation due to acute hypoxic respiratory failure secondary to systolic heart failure superimposed on underlying interstitial lung disease. Echocardiogram that admission demonstrated moderate left ventricular dysfunction, questionable ischemic heart disease versus apical ballooning cardiomyopathy. Diagnostic coronary angiography deferred due to renal insufficiency and medical management was preferred. Patient was diuresed with 40 mg of IV Lasix and goal-directed medical therapy was titrated. Discharged home on Lasix 40 mg daily. Upon entrance into the room patient resting in bed. Daughter and son at bedside who help provide some history leading up to today. Notable shortness of breath with very minimal exertion, "taking 1 step". +orthopnea. +lower extremity edema to the thighs. +abdominal bloating. No chest pain or palpitations. Denies any dietary indiscretions or missed medications leading up to this ED visit. Per daughter/patient weight fluctuating +/- 1-2 lbs over the last week or so. 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 mgmt advised. CKD, baseline scr ~1.7 ILD/COPD- follows with pulmonary Lung nodules, coal workers pneumoconiosis with chronic cough Chronic hypoxic respiratory failure, on supplemental oxygen therapy SERENA GERD Chronic back pain Allergies Allergy/AdvReac Type Severity Reaction Status Date / Time No Known Allergies Allergy Verified 03/28/23 09:56 Home Medications Medication Instructions Recorded Confirmed Type aspirin 81 mg tablet,delayed 81 mg PO DAILY 05/21/19 03/28/23 History release tamsulosin 0.4 mg capsule 0.8 mg PO DAILY 05/21/19 03/28/23 History triamcinolone acetonide 0.1 % 1 applic topical BID PRN Skin 05/21/19 03/28/23 History topical ointment Irritation multivitamin-ferrous 1 tab PO DAILY 05/22/19 03/28/23 History fumarate-folic acid 18 mg-400 mcg tablet (Centrum Complete) fluticasone propionate 50 2 sprays intranasal DAILY #16 grams 11/29/19 03/28/23 Rx mcg/actuation nasal spray,suspension carvedilol 12.5 mg tablet 12.5 mg PO BID 05/26/20 03/28/23 History citalopram 10 mg tablet 10 mg PO QAM 03/06/23 03/28/23 History cyanocobalamin (vitamin B-12) 100 100 mcg PO DAILY 03/06/23 03/28/23 History mcg tablet (Vitamin B-12) famotidine 20 mg tablet 20 mg PO HS 03/06/23 03/28/23 History furosemide 40 mg tablet (Lasix) 40 mg PO QAM 03/06/23 03/28/23 History guaifenesin 600 mg tablet, 600 mg PO Q12H PRN COUGH/CONGESTION 03/06/23 03/28/23 History extended release 12 hr ipratropium bromide 17 2 puff inhalation QID 03/06/23 03/28/23 History mcg/actuation HFA aerosol inhaler (Atrovent HFA) loratadine 10 mg tablet (Claritin) 10 mg PO DAILY 03/06/23 03/28/23 History pantoprazole 20 mg tablet,delayed 20 mg PO DAILYBB 03/06/23 03/28/23 History release sodium chloride 0.65 % nasal spray 1 spray intranasal BID PRN NASAL 03/06/23 03/28/23 History aerosol (Saline Nasal) DRYNESS rosuvastatin 10 mg tablet 10 mg PO QAM #30 tabs 03/09/23 03/28/23 Rx Patient History Medical History CKD (chronic kidney disease), stage III HFrEF (heart failure with reduced ejection fraction) History of prostate cancer s/p XRT with brachy boost HTN (hypertension) 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, coal, workers' Prostate cancer (11/03/14) "Rising PSA to 7.46 Status post ultrasound-guided biopsies revealing adenocarcinoma [place] 4+3, biopsy stage T2c Initiation of hormone suppression prior to prostate seed implant, short course Status post prostate seed implant 02/03/2015 with cesium 131 received 8500 cGy 50 seeds placed Status post completion of IMRT/IGRT 04/28/2015 received 4500 cGy " On 05/26/15 14:44 Shira Goldberg wrote "Rising PSA to 7.46 Status post ultrasound-guided biopsies revealing adenocarcinoma [place] 4+3, biopsy stage T2c Initiation of hormone suppression prior to prostate seed implant Status post prostate seed implant 02/03/2015 with cesium 131 received 8500 cGy 50 seeds placed Status post completion of IMRT/IGRT 04/28/2015 received 4500 cGy " On 05/01/15 12:43 Sandra Marquez wrote "Rising PSA to 7.46 Status post ultrasound-guided biopsies revealing adenocarcinoma [place] 4+3, biopsy stage T2c Initiation of hormone suppression Status post prostate seed implant 02/03/2015 with cesium 131 received 8500 cGy 50 seeds placed Status post completion of IMRT/IGRT 04/28/2015 received 4500 cGy " On 03/17/15 15:55 Sandra Marquez wrote "Rising PSA to 7.46 Status post ultrasound-guided biopsies revealing adenocarcinoma [place] 4+3, biopsy stage T2c Initiation of hormone suppression Status post prostate seed implant 02/03/2015 with cesium 131 received 8500 cGy 50 seeds placed Now for completion of IMRT/IGRT" Restrictive lung disease Surgical History H/O shoulder surgery History of appendectomy Social History Smoking Status: Never smoker Tobacco Type: Cigarettes Second Hand Exposure: No; Do You Dip or Chew Tobacco: No; Hx Alcohol Use: No Hx Substance Use: No Preferred Language: Guatemalan Communication Ability: Effective Talent Consultant Required: No Beliefs That Will Affect Care: None marital status: / Current Living Situation: Alone Other Information That Helps Us Care for You: No Feels Safe at Home: Yes Safety Concerns: Feels Safe At This Time Assistive Devices: None Review of Systems Review of Systems: All systems reviewed & are unremarkable except as noted in HPI & below Physical Exam Constitutional: + ill appearing Eyes: PERRL, conjunctivae normal, anicteric sclerae Neck: normal visual inspection and trachea midline Respiratory: + labored breathing, + cough and + tachypneic Auscultation: + rales, + rhonchi, + wheezes and + bronchovesicular breath sounds Cardiovascular: Rate/Rhythm: regular rate and regular rhythm Heart Sounds: normal S1 and normal S2; no murmur Vessels: + JVD Extremities: + edema (+3 BLLE pitting edema to thighs, abdominal bloating) Gastrointestinal (Abdomen): Inspection/Auscultation: + abdomen distended Percussion/Palpation: + abdomen firm; abdomen nontender Skin: no rashes, warm and dry Neurologic: PERRL, EOMI, accommodation nl, no face palsy, no dysarthria Psychiatric: A+Ox3, euthymic affect Results & Data Vital Signs (Past 12 Hours) Vital Signs Temp Pulse Pulse Resp BP Pulse Ox O2 Del Method 03/28/23 11:00 71 28 H 99 BiPAP 03/28/23 11:00 105/66 03/28/23 10:30 62 21 100 BiPAP 03/28/23 10:30 118/69 03/28/23 10:00 62 17 100 BiPAP 03/28/23 09:30 63 23 100 BiPAP 03/28/23 09:30 116/75 03/28/23 09:00 71 27 H 100 BiPAP 03/28/23 09:00 131/80 03/28/23 08:53 68 26 H 99 BiPAP 03/28/23 09:52 62 22 100 03/28/23 09:31 94 H 24 94 BiPAP 03/28/23 09:29 74 24 94 03/28/23 09:04 97 BiPAP, Nebulizer 03/28/23 09:04 BiPAP 03/28/23 09:04 97 Nebulizer 03/28/23 08:35 36.5 C 77 26 H 136/76 97 Nebulizer 03/28/23 08:54 68 O2 Flow Rate FiO2 03/28/23 11:00 03/28/23 11:00 03/28/23 10:30 03/28/23 10:30 03/28/23 10:00 03/28/23 09:30 03/28/23 09:30 03/28/23 09:00 03/28/23 09:00 03/28/23 08:53 03/28/23 09:52 50 03/28/23 09:31 50 03/28/23 09:29 50 03/28/23 09:04 6 03/28/23 09:04 03/28/23 09:04 03/28/23 08:35 6 03/28/23 08:54 Laboratory Results Cardiac Enzymes 03/28/23 03/28/23 Range/Units 08:53 08:53 AST 18 (13-39) U/L Troponin I High Sens 58.5 H* (0-20) pg/ml B-Natriuretic Peptide 2281 H (0-100) pg/ml Coagulation 03/28/23 Range/Units 08:53 B-Natriuretic Peptide 2281 H (0-100) pg/ml CBC 03/28/23 Range/Units 08:53 WBC 11.73 H (4.8-10.8) K/ul RBC 3.80 L (4.70-6.10) M/uL Hgb 11.3 L (14.0-18.0) g/dl Hct 34.1 L (42.0-52.0) % Plt Count 196 (130-400) K/uL Neut # (Auto) 9.71 H (1.40-6.50) K/uL Lymph # (Auto) 0.83 L (1.2-3.4) K/uL [place] # (Auto) 0.87 H (0.11-0.59) K/uL Eos # (Auto) 0.16 (0-0.50) K/uL Baso # (Auto) 0.11 (0-0.2) K/uL Comprehensive Metabolic Panel 03/28/23 Range/Units 08:53 Sodium 136 (136-145) mmol/L Potassium 4.5 (3.5-5.1) mmol/L Chloride 102 (98-107) mmol/L Carbon Dioxide 28 (21-32) mmol/L BUN 46 H (6-23) mg/dl Creatinine 1.81 H (0.6-1.4) mg/dl Glucose 143 H (70-99(Fasting)) mg/dl Calcium 9.0 (8.6-10.3) mg/dl AST 18 (13-39) U/L ALT 17 (7-52) U/L Alkaline Phosphatase 79 (34-104) U/L Total Protein 7.1 (6.0-8.3) gm/dl Albumin 3.4 (3.4-5.0) gm/dl Intake and Output 03/27/23 03/28/23 03/28/23 22:59 06:59 14:59 Intake Total 520 / 520 Balance 520 / 520 Intake: IV 520 / 520 cefTRIAXone SODIUM 2,000 mg In 70 / 70 70 ml @ 140 mls/hr IV NOW STA Rx#:[id number] Left Forearm 450 / 450 Other: Weight 88.5 kg Weight Measurement Method Built in [facility] Patient Weight 03/29/23 06:59 Weight 88.5 kg
[2023-03-28 12:23] LABS: Adenovirus PCR Not Detected (NotDetected); Bordetella parapertussis PCR Not Detected (NotDetected); Bordetella pertussis PCR Not Detected (NotDetected); Chlamydia pneumoniae PCR Not Detected (NotDetected); Coronavirus 229E PCR Not Detected (NotDetected); Coronavirus CoV-2 (COVID19)PCR Not Detected (NotDetected); Coronavirus HKU1 PCR Not Detected (NotDetected); Coronavirus NL63 PCR Not Detected (NotDetected); Coronavirus OC43PCR Not Detected (NotDetected); Human Metapneumovirus PCR Not Detected (NotDetected); Influenza A PCR Not Detected (NotDetected); Influenza B PCR Not Detected (NotDetected); Mycoplasma pneumoniae PCR Not Detected (NotDetected); Parainfluenza Virus 1 PCR Not Detected (NotDetected); Parainfluenza Virus 2 PCR Not Detected (NotDetected); Parainfluenza Virus 3 PCR Not Detected (NotDetected); Parainfluenza Virus 4 PCR Not Detected (NotDetected); Respiratory Syncytial VirusPCR Not Detected (NotDetected); Rhinovirus/Enterovirus PCR Not Detected (NotDetected)
[2023-03-28] MEDS ORDERED: ACETAMINOPHEN 325 MG TAB PO PRN (13:42)
--- NOTE | 2023-03-28 14:20 | Electrocardiogram Report ---
Test Reason : Blood Pressure : / mmHG Vent. 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
[2023-03-28] MEDS: ALBUT/IPRATROP 3MG/0.5MG NEB 3 ML VIAL NEB SCH ×3 (15:26→23:37)
[2023-03-28] MEDS: guaiFENesin 600 MG TABCR PO SCH (16:04)
[2023-03-28] MEDS: HEPARIN SOD 5,000 UNIT/0.5 ML VIAL SQ SCH ×2 (16:04→21:23)
[2023-03-28] MEDS ORDERED: FUROSEMIDE INJ 20 MG/2 ML VIAL IV ONE (20:00)
[2023-03-28] MEDS: FAMOTIDINE 20 MG TAB PO SCH (21:23)
[2023-03-28] MEDS: carvediloL 12.5 MG TAB PO SCH (21:23)
[2023-03-29] MEDS: ALBUT/IPRATROP 3MG/0.5MG NEB 3 ML VIAL NEB SCH ×6 (05:06→23:21)
[2023-03-29] MEDS: HEPARIN SOD 5,000 UNIT/0.5 ML VIAL SQ SCH ×3 (06:18→19:59)
[2023-03-29] MEDS: guaiFENesin 600 MG TABCR PO SCH ×2 (06:18→18:29)
[2023-03-29] MEDS: PANTOprazole 40 MG TAB PO SCH (06:18)
[2023-03-29 07:23] LABS: Hematocrit (blood only) 34.4 % (42.0-52.0); Hemoglobin 11.6 g/dl (14.0-18.0); Mean Corpuscular Hemoglobin 29.8 pg (25.0-34.0); Mean Corpuscular Hgb Conc 33.7 g/dL (32.0-36.0); Mean Corpuscular Volume 88.4 fL (80.0-100.0); Mean Platelet Volume 10.4 fL (9.4-12.4); Platelet Count 247 K/uL (130-400); RDW Coefficient of Variation 13.7 % (11.5-14.5); RDW Standard Deviation 44.6 fL (36.4-46.3); Red Blood Count 3.89 M/uL (4.70-6.10); White Blood Count 10.51 K/ul (4.8-10.8)
[2023-03-29 07:34] LABS: BUN Creatinine Ratio 28.6 (10-20); Calcium 9.2 mg/dl (8.6-10.3); Creatinine Clr Calc Pharmacy 30.9 ml/min; Est GFR (African American) 34.6 ml/min; Est GFR (Non-African American) 29.9 ml/min; Magnesium 1.9 mg/dl (1.7-2.4); Potassium 4.5 mmol/L (3.5-5.1)
[2023-03-29] MEDS ORDERED: FUROSEMIDE 40 MG/4 ML VIAL IV ONE (09:00)
--- NOTE | 2023-03-29 09:09 | CT Scan Report ---
CT OF THE CHEST WITHOUT IV CONTRAST CLINICAL HISTORY: respiratory failure, chf vs pneumonia COMPARISON STUDY: Chest CT March 06, 2023. Chest radiograph March 28, 2023. Chest CT July 28, 2017. CT DOSE: 504.10 mGy.cm TECHNIQUE: Axial images of the chest were obtained without IV contrast. Images were reviewed in the axial, sagittal, and coronal planes. IV contrast was not administered for this examination. Automat ed exposure control was utilized for the study. A dose lowering technique was utilized adhering to t he principles of ALARA. FINDINGS: Clipy-sf-vamrlcui bilateral pleural effusions have mildly increased in size since CT of 2022. There is no pneumothorax. Mild cardiomegaly is present. There is moderate coronary artery calcification. No pericardial effusion. Mildly enlarged mediastinal and bilateral hilar lymph nodes are noted. This is similar to prior exam. These are likely benign. Innumerable nodules within the joce gs are noted. These were present on initial CT of July 28, 2017. Diffuse bronchial wall thickening is similar to CT of March 06, 2023. Interlobular septal thickening persists. Extensive right lower lob e airspace opacity with volume loss has progressed since prior CT. Left lower lobe airspace opacity w ith volume loss has also progressed. There are are irregular right middle lobe and lingular opacities , similar to prior chest CT. IMPRESSION: 1. Fasga-gl-jcfkisam bilateral pleural effusions, slightly increased since CT of March 06, 2023. Increa se in associated bilateral lower lobe airspace opacities with volume loss. These opacities favor atel ectasis although pneumonia would be difficult to exclude. 2. Persistent interstitial pulmonary edema, similar to prior exam. 3. No significant change in irregular right middle lobe and lingular opacities. These are nonspecific and may be infectious. A follow-up chest CT in 3 months to ensure resolution is recommended. 4. Innumerable nodules within the lungs which were present on initial CT of July 28, 2017. Differe ntial considerations include silicosis, pneumoconiosis and sarcoidosis. Mycobacterial infection is co nsidered less likely given stability. ACT 112: Negative or not required by law. Electronically signed by: Alexx Foster M.D. 03/29/2023 9:08 AM
[2023-03-29] MEDS: carvediloL 12.5 MG TAB PO SCH ×2 (10:11→19:58)
[2023-03-29] MEDS: ASPIRIN 81 MG ECTAB PO SCH (10:11)
[2023-03-29] MEDS: LORATADINE 10 MG TAB PO SCH (10:12)
[2023-03-29] MEDS: CITALOPRAM 20 MG TAB PO SCH (10:12)
[2023-03-29] MEDS: CYANOCOBALAMIN (B-12) 100 MCG TABLET PO SCH (10:12)
[2023-03-29] MEDS: ROSUVASTATIN CALCIUM 10 MG TAB PO SCH (10:13)
[2023-03-29] MEDS: predniSONE 20 MG TAB PO SCH (10:13)
[2023-03-29] MEDS: TAMSULOSIN HCL 0.4 MG CAP PO SCH (10:13)
[2023-03-29] MEDS: CEFEPIME 2,000 MG in SYRINGE 0 ML IV SCH (11:21)
[2023-03-29] MEDS: DOXYCYCLINE HYCLATE 100 MG CAP PO SCH ×2 (11:21→19:59)
--- NOTE | 2023-03-29 12:13 | Cardiology Progress Note ---
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 Recent hospital admission at the beginning of March with similar presentation. High-sensitivity troponin minimally elevated, EKG without acute ST segment changes. PLAN: -Continue IV diuresis with Lasix -Continue goal-directed medical therapy with carvedilol as ordered. Not on KENNETH inhibitor/ARB due to renal dysfunction. -Treatment of possible pneumonia per primary team. O2/BiPAP use encouraged, wean as tolerated. 03/29/2023 As above. Patient with acute on chronic heart failure multifactorial. 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 Suspect silent myocardial infarction in the last 6 to 12 months. We will treat underlying heart failure and pulmonary Continue IV diuretic Add isosorbide and hydralazine for afterload reduction Admission and Anticipated Discharge Date Admission Date: March 28, 2023 Subjective Patient seen and examined, chart, medications, telemetry reviewed. Slightly improved clinically though still dyspneic per patient description. Underwent CT chest this more Has manifested diuresis since presentation with weight down 1.6 kg Still with abdominal distention but less pronounced Lower extremity edema present Physical Exam Constitutional: + ill appearing Eyes: PERRL, conjunctivae normal, anicteric sclerae Neck: normal visual inspection and trachea midline Respiratory: + labored breathing, + cough and + tachypneic Auscultation: + rales, + rhonchi, + wheezes and + bronchovesicular breath sounds Cardiovascular: Rate/Rhythm: regular rate and regular rhythm Heart Sounds: normal S1 and normal S2; no murmur Vessels: + JVD Extremities: + edema (+3 BLLE pitting edema to thighs, abdominal bloating) Gastrointestinal (Abdomen): Inspection/Auscultation: + abdomen distended Percussion/Palpation: + abdomen firm; abdomen nontender Skin: no rashes, warm and dry Neurologic: PERRL, EOMI, accommodation nl, no face palsy, no dysarthria Psychiatric: A+Ox3, euthymic affect Results & Data Vital Signs (Past 12 Hours) Vital Signs Temp Pulse Pulse Resp BP Pulse Ox O2 Del Method 03/29/23 10:00 36.8 C 78 18 118/87 97 Nasal Cannula 03/29/23 10:59 78 22 99 Nasal Cannula 03/29/23 07:57 36.8 C 84 16 115/69 95 Nasal Cannula 03/29/23 07:49 85 03/29/23 07:45 Nasal Cannula 03/29/23 07:00 78 20 100 Nasal Cannula 03/29/23 04:18 36.6 C 74 18 114/70 98 Nasal Cannula O2 Flow Rate 03/29/23 10:00 2 03/29/23 10:59 2 03/29/23 07:57 4 03/29/23 07:49 03/29/23 07:45 3 03/29/23 07:00 4 03/29/23 04:18 Laboratory Results Laboratory Results - last 24 hr 03/28/23 03/28/23 03/28/23 09:11 14:54 20:59 WBC RBC Hgb Hct MCV MCH MCHC RDW Std Deviation RDW Coeff of Nehemias Plt Count MPV Sodium Potassium Chloride Carbon Dioxide Anion Gap BUN Creatinine Est Cr Clr Drug Dosing Est GFR ( Amer) Est GFR (Non-Af Amer) BUN/Creatinine Ratio Glucose Calcium Magnesium Troponin I High Sens 58.7 H* 49.2 H Adenovirus (PCR) Not Detected B. pertussis DNA (PCR) Not Detected B.parapertussis DNA PCR Not Detected C. pneumoniae DNA (PCR) Not Detected Coronavirus OC43 (PCR) Not Detected Coronavirus HKU1 (PCR) Not Detected Coronavirus 229E (PCR) Not Detected SARS-CoV-2 (PCR) Not Detected Coronavirus NL63 (PCR) Not Detected Human Metapneumovir PCR Not Detected Influenza Type A (PCR) Not Detected Influenza Type B (PCR) Not Detected M. pneumoniae (PCR) Not Detected Parainfluenza 1 (PCR) Not Detected Parainfluenza 2 (PCR) Not Detected Parainfluenza 3 (PCR) Not Detected Parainfluenza 4 (PCR) Not Detected RSV (PCR) Not Detected Entero/Rhino (PCR) Not Detected 03/29/23 03/29/23 05:55 05:55 WBC 10.51 RBC 3.89 L Hgb 11.6 L Hct 34.4 L MCV 88.4 MCH 29.8 MCHC 33.7 RDW Std Deviation 44.6 RDW Coeff of Nehemias 13.7 Plt Count 247 MPV 10.4 Sodium 135 L Potassium 4.5 Chloride 98 Carbon Dioxide 28 Anion Gap 9 BUN 56 H Creatinine 1.96 H Est Cr Clr Drug Dosing 30.9 Est GFR ( Amer) 34.6 Est GFR (Non-Af Amer) 29.9 BUN/Creatinine Ratio 28.6 H Glucose 157 H Calcium 9.2 Magnesium 1.9 Troponin I High Sens Adenovirus (PCR) B. pertussis DNA (PCR) B.parapertussis DNA PCR C. pneumoniae DNA (PCR) Coronavirus OC43 (PCR) Coronavirus HKU1 (PCR) Coronavirus 229E (PCR) SARS-CoV-2 (PCR) Coronavirus NL63 (PCR) Human Metapneumovir PCR Influenza Type A (PCR) Influenza Type B (PCR) M. pneumoniae (PCR) Parainfluenza 1 (PCR) Parainfluenza 2 (PCR) Parainfluenza 3 (PCR) Parainfluenza 4 (PCR) RSV (PCR) Entero/Rhino (PCR)
--- NOTE | 2023-03-29 12:29 | Electrocardiogram Report ---
Test Reason : Blood Pressure : / mmHG Vent. Rate : 092 BPM Atrial Rate : 092 BPM P-R Int : 164 ms QRS Dur : 098 ms QT Int : 388 ms P-R-T Axes : 000 -15 201 degrees QTc Int : 479 ms Poor data quality, interpretation may be adversely affected Normal sinus rhythm consider asmi Prolonged QT Abnormal ECG When compared with ECG of 28-MAR-2023 08:44, No significant change was found Confirmed by Ovi Grewal ([id number]) on 03/29/2023 12:29:04 PM Referred By: REFERRED SELF Confirmed By:Ovi Grewal
--- NOTE | 2023-03-29 15:42 | Hospitalist Progress Note ---
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 Patient recently admitted to [facility] 03/06 through 03/09 for multifactorial acute hypoxic respiratory failure due to acute systolic heart failure, acute bronchitis secondary to rhinovirus, exacerbation of restrictive lung disease. Patient was treated with IV Lasix and discharged home on home dose Lasix 40 mg daily. Due to worsening renal failure, patient's irbesartan was discontinued. Upon arrival to the ED, patient was in respiratory distress requiring BiPap, no hypoxia documented Received Lasix 40mg IV, Solumedrol 60mg IV, and neb treatment with improvement in symptoms CXR - pulmonary edema, BL pleueral effusions, right basilar opacity; proBNP 2281 Echo 03/07/23 - EF 30-35%; repeat echo ordered HS trop 58.5 -- improved from last admission, likely due to demand ischemia in the setting of CHF, respiratory failure. No reports of chest pain, EKG without acute ST changes. Continue to trend trop. Will give an additional Lasix 20mg IV this evening, then start Lasix 40mg IV BID from tomorrow pending renal functions and volume status Continue beta stanford, ARB d/c'd during last admission due to worsening renal function Low Na+ diet, daily standing weights, strict I/Os Received IV ceftriaxone and IV azithromycin in the ED. WBC 11.7K, afebrile, procal < 0.05. Suspect CHF is causing acute exacerbation of underlying restrictive lung disease. Will monitor off antibiotics for now. Biofire negative Continue with Prednisone 40mg PO daily and pulmonary toilet with mucinex, nebs, flutter valve, IS Wean BiPap as able, typically wears 2L HS and PRN during the day 03/29 Acute hypoxic respiratory failure secondary to acute on chronic CHF exacerbation, possible component of pneumonia in the setting of restrictive lung disease secondary to pneumoconiosis Continue Lasix IV, Imdur and hydralazine added by cardiology service Monitor diureses Start cefepime plus doxycycline Continue nebs, prednisone, Mucinex, flutter valve We will consult pulmonary service (5) CKD (chronic kidney disease), stage III: Plan: Creat 1.8 Recent baseline high 1s-low 2s Irbesartan discontinue during last admission due to worsening renal function Monitor renal functions daily 03/29 Creatinine 1.8 Monitor closely DVT PROPHYLAXIS SQ Heparin Admission and Anticipated Discharge Date Admission Date: March 28, 2023 Subjective ff up for acute CHF exacerbation, etc seen resting in bed, comfortable on 2 L states his breathing is about the same Has occasional cough productive of white sputum No fevers or chills No chest pain or palpitation, dizziness No other symptoms Review of Systems Review of Systems: all noted and negative except for above Physical Exam Physical Exam: General- oriented x 3, not in distress, speaks in sentences with no effort or accessory muscle use Eyes- anicteric Neck- no JVD Lungs-mild rales at the bases Heart- normal rate, regular rhythm; no murmurs Abdomen- normal bowel sounds, nondistended, soft, nontender Extremities-mild lower leg edema, no calf tenderness Neuro- alert, oriented x 3; no gross focal neurologic deficits Skin- warm & dry Results & Data Results & Data Vital Signs (Past 12 Hours) Vital Signs Temp Pulse Pulse Resp BP Pulse Ox O2 Del Method 03/29/23 15:29 96 03/29/23 14:35 80 20 97 Nasal Cannula 03/29/23 10:00 36.8 C 78 18 118/87 97 Nasal Cannula 03/29/23 10:59 78 22 99 Nasal Cannula 03/29/23 07:57 36.8 C 84 16 115/69 95 Nasal Cannula 03/29/23 07:49 85 03/29/23 07:45 Nasal Cannula 03/29/23 07:00 78 20 100 Nasal Cannula 03/29/23 04:18 36.6 C 74 18 114/70 98 Nasal Cannula O2 Flow Rate 03/29/23 15:29 03/29/23 14:35 2 03/29/23 10:00 2 03/29/23 10:59 2 03/29/23 07:57 4 03/29/23 07:49 03/29/23 07:45 3 03/29/23 07:00 4 03/29/23 04:18 all noted and reviewed including below
[2023-03-29] MEDS: ADVANCED PROBIOTIC 1250 MG CAPSULE PO SCH (16:34)
[2023-03-29] MEDS: ISOSORBIDE DINITRATE 10 MG TAB PO SCH (16:34)
[2023-03-29] MEDS: SODIUM CHLOR 7% 4 ML NEB NEB SCH (19:33)
[2023-03-29] MEDS: FAMOTIDINE 20 MG TAB PO SCH (20:00)
[2023-03-29] MEDS: hydrALAZINE 10 MG TAB PO SCH (20:00)
--- NOTE | 2023-03-30 | Pulmonary Consultation ---
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 Lynch Impression: 87-year-old male presents for evaluation for shortness of breath. He is currently being treated for probable pneumonia and respiratory failure. Patient follows with [facility] pulmonology and previously followed with Dr. Rodney Taveras with [facility] pulmonary group until May 2020. Review of previous notes reveal lack of progression of pulmonary nodules consistent with pneumoconiosis. There is also mention the patient had become more progressively dyspneic going back to at least 2015 to the point where he was no longer able to zhong or climb stairs without resting. It was noted at that time the patient also had chronic snoring with witnessed apnea. Patient also has history of prostate cancer with original onset 11/03/2014 with stage II ( A) adenocarcinoma. He was discharged from radiation oncology in December 19 5:20 years of follow-up. Patient denies any history of metastatic disease and specifically has had no history of lung cancer. Aside from progressive shortness of breath, patient has no acute complaints at this time. Recommendations: 1. Acute respiratory failure with hypoxia: * Previously admitted with similar symptoms 03/06/2023 to 03/09/2023.. No sputum cultures were collected at that time. There is no growth in blood cultures x2. * Currently being treated for pneumonia with cefepime and doxycycline although procalcitonin is negative, patient has no significant leukocytosis, and patient is afebrile * Will continue with supplemental oxygen to maintain SaO2 greater than 90% * Would again suggest to step evaluation prior to discharge * No wheezes at this time. Could probably discontinue prednisone * Encourage patient to ambulate as tolerated. Out of bed to chair as tolerated and for all meals * Would encourage incentive spirometry as patient appears to have some level of atelectasis on CT chest 2. 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 Aspergillus versicolor also noted. * Patient is being followed by [facility] pulmonology. They were considering bronchoscopy but apparently this was never completed. His most recent outpat ient appointment was canceled * Would advise follow-up with outpatient pulmonary with [facility] on discharge 3. Bilateral pleural effusions: * Small to moderate bilateral effusions are noted. These are most likely secondary to congestive heart failure. Patient's proBNP is significantly elevated at 2200. Patient also has symptoms consistent with exacerbation of CHF * Continue diuresis as tolerated * Patient currently is not on any anticoagulants and is only on aspirin 81 mg p.o. daily he has not antiplatelet agent. If no improvement with diuresis, patient may benefit from thoracentesis. However, will hold off at this time * Patient denies prior history of pleural effusions or thoracentesis 4. Restrictive lung disease: * Previous pulmonary function test revealed reduced FVC and FEV1 with preserved ratio suggesting restrictive lung disease. * CT scan of the lungs does show evidence of probable pneumoconiosis. * Patient is on Atrovent HFA 2 puffs 4 times daily at home. Consider changing to Anoro Ellipta (LAMA/LABA) * Follow-up with outpatient pulmonary with [facility] as previously scheduled 5. Question of obstructive sleep apnea: * Review of previous records indicate patient has periods of excessive snoring and apnea * Patient does have history of nocturnal hypoxemia. Continue with supplemental oxygen at night at 2 L/min via nasal cannula * Patient may benefit from CPAP therapy. Continue this with 2 L/min via bleed and 4 hours of sleep * Outpatient management with [facility] pulmonology Thank you for including us in the care of this patient. We will follow along with you at this time. Patient may benefit from thoracentesis prior to discharge. Otherwise, follow-up with outpatient pulmonary for other chronic issues. Please refer to Dr. Lynch's addendum for further recommendations and corrections. History of Present Illness Attending Physician: Georgi Lei MD History of Present Illness Attending: Dr. 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 Patient recently admitted to [facility] from 03/06/2023 to 03/09/2023. Patient presents for readmission for increasing shortness of breath. Patient appears to have acute decompensation of chronic systolic heart failure with bilateral pleural effusions. Echocardiogram demonstrates extensive and mid and apical wall motion abnormality with diminished LV systolic function EF 25 to 30%. Afterload reduction with KENNETH/ARB previously discontinued due to acute renal insufficiency. Being considered for afterload reduction with hydralazine and nitrates depending on blood pressure response to diuresis as directed by cardio logy. Patient denies any chest pain or tightness. He does report decreased exercise tolerance over the last several months. Patient does still cut his grass using a riding lawnmower and cuts and splits wood with a hydraulic splitter. Patient lives alone and can perform most of his ADLs when at baseline. 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 Patient is reported to have restrictive lung disease. He is currently on Atrovent HFA 2 puffs 4 times daily and Flonase nasal spray 2 sprays each nostril daily. Patient denies any fever, sweats, chills, rigors. No regular sputum production. Patient denies any hemoptysis. He does report improvement to his symptoms with Atrovent. At the time of his last admission 03/06/2023, patient apparently had increased sputum for approximately 2 weeks and reported that the sputum was darkish in color at that time. He was treated for pneumonia and was discharged on azithromycin, Augmentin, prednisone 40 mg p.o. daily. The patient does have nocturnal hypoxemia and uses supplemental oxygen 2 L/min via nasal cannula with sleep. Patient did not require supplemental oxygen at rest or during the day on discharge 03/09/2023. Patient does follow with [facility] pulmonology for coal miners pneumoconiosis. Most recent pulmonary function tests were from May 2018. FVC 64% of predicted, FEV1 64% of predicted, preserved FVC/FEV1 ratio of 101% suggesting restrictive lung disease. Patient also had a reduced DLCO at 57% with correction to 90% for alveolar volume. Allergies Allergy/AdvReac Type Severity Reaction Status Date / Time No Known Allergies Allergy Verified 03/28/23 09:56 Home Medications Medication Instructions Recorded Confirmed Type aspirin 81 mg tablet,delayed 81 mg PO DAILY 05/21/19 03/28/23 History release tamsulosin 0.4 mg capsule 0.8 mg PO DAILY 05/21/19 03/28/23 History triamcinolone acetonide 0.1 % 1 applic topical BID PRN Skin 05/21/19 03/28/23 History topical ointment Irritation multivitamin-ferrous 1 tab PO DAILY 05/22/19 03/28/23 History fumarate-folic acid 18 mg-400 mcg tablet (Centrum Complete) fluticasone propionate 50 2 sprays intranasal DAILY #16 grams 11/29/19 03/28/23 Rx mcg/actuation nasal spray,suspension carvedilol 12.5 mg tablet 12.5 mg PO BID 05/26/20 03/28/23 History citalopram 10 mg tablet 10 mg PO QAM 03/06/23 03/28/23 History cyanocobalamin (vitamin B-12) 100 100 mcg PO DAILY 03/06/23 03/28/23 History mcg tablet (Vitamin B-12) famotidine 20 mg tablet 20 mg PO HS 03/06/23 03/28/23 History furosemide 40 mg tablet (Lasix) 40 mg PO QAM 03/06/23 03/28/23 History guaifenesin 600 mg tablet, 600 mg PO Q12H PRN COUGH/CONGESTION 03/06/23 03/28/23 History extended release 12 hr ipratropium bromide 17 2 puff inhalation QID 03/06/23 03/28/23 History mcg/actuation HFA aerosol inhaler (Atrovent HFA) loratadine 10 mg tablet (Claritin) 10 mg PO DAILY 03/06/23 03/28/23 History pantoprazole 20 mg tablet,delayed 20 mg PO DAILYBB 03/06/23 03/28/23 History release sodium chloride 0.65 % nasal spray 1 spray intranasal BID PRN NASAL 03/06/23 03/28/23 History aerosol (Saline Nasal) DRYNESS rosuvastatin 10 mg tablet 10 mg PO QAM #30 tabs 03/09/23 03/28/23 Rx Patient History Medical History (Updated 03/30/23 @ 00:12 by Margarito Quach PA-C) Bilateral pleural effusion CKD (chronic kidney disease), stage III Dyspnea on exertion HFrEF (heart failure with reduced ejection fraction) History of prostate cancer s/p XRT with brachy boost HTN (hypertension) 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, 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, 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' Prostate cancer (11/03/14) "Rising PSA to 7.46 Status post ultrasound-guided biopsies revealing adenocarcinoma [place] 4+3, biopsy stage T2c Initiation of hormone suppression prior to prostate seed implant, short course Status post prostate seed implant 02/03/2015 with cesium 131 received 8500 cGy 50 seeds placed Status post completion of IMRT/IGRT 04/28/2015 received 4500 cGy " On 05/26/15 14:44 Aixayomaira Goldberg wrote "Rising PSA to 7.46 Status post ultrasound-guided biopsies revealing adenocarcinoma [place] 4+3, biopsy stage T2c Initiation of hormone suppression prior to prostate seed implant Status post prostate seed implant 02/03/2015 with cesium 131 received 8500 cGy 50 seeds placed Status post completion of IMRT/IGRT 04/28/2015 received 4500 cGy " On 05/01/15 12:43 Sandra Marquez wrote "Rising PSA to 7.46 Status post ultrasound-guided biopsies revealing adenocarcinoma [place] 4+3, biopsy stage T2c Initiation of hormone suppression Status post prostate seed implant 02/03/2015 with cesium 131 received 8500 cGy 50 seeds placed Status post completion of IMRT/IGRT 04/28/2015 received 4500 cGy " On 03/17/15 15:55 Sandra Marquez wrote "Rising PSA to 7.46 Status post ultrasound-guided biopsies revealing adenocarcinoma [place] 4+3, biopsy stage T2c Initiation of hormone suppression Status post prostate seed implant 02/03/2015 with cesium 131 received 8500 cGy 50 seeds placed Now for completion of IMRT/IGRT" Restrictive lung disease Surgical History H/O shoulder surgery History of appendectomy Social History Smoking Status: Never smoker Tobacco Type: Cigarettes Second Hand Exposure: No; Do You Dip or Chew Tobacco: No; Hx Alcohol Use: No Hx Substance Use: No Preferred Language: Icelandic Communication Ability: Effective [employer] Required: No Beliefs That Will Affect Care: None marital status: / Current Living Situation: Alone Other Information That Helps Us Care for You: No Feels Safe at Home: Yes Safety Concerns: Feels Safe At This Time Assistive Devices: Cane and Walker Review of Systems Review of Systems: A total of 10 systems was reviewed and is negative other than as listed in the HPI Physical Exam Physical Exam: GENERAL : No acute distress EYES: No icterus, gaze conjugate NOSE: No evidence of epistaxis. Nasal cannula is in place MOUTH: No lesions or candidiasis NECK: Supple LUNGS: Bibasilar crackles with decreased breath sounds bilaterally. Diaphragmatic excursion at approximately 7 cm. Good inspirational effort. No induced cough with forced inspiration. HEART: Regular, rate controlled ABDOMEN: Soft, NT, ND, BS Present EXTREMITIES: Bilateral LE edema, pedal pulses intact NEURO: A&OX3 Results & Data Results & Data Vital Signs (Past 12 Hours) Vital Signs Temp Pulse Pulse Resp BP Pulse Ox O2 Del Method 03/29/23 23:24 36.4 C L 77 18 122/72 98 Nasal Cannula 03/29/23 23:23 89 20 99 Nasal Cannula 03/29/23 22:49 Nasal Cannula 03/29/23 19:32 84 18 123/69 95 Room Air 03/29/23 19:33 82 18 98 Nasal Cannula 03/29/23 14:06 84 03/29/23 15:45 36.8 C 78 18 124/70 97 Room Air 03/29/23 15:29 96 03/29/23 14:35 80 20 97 Nasal Cannula O2 Flow Rate 03/29/23 23:24 03/29/23 23:23 2 03/29/23 22:49 3 03/29/23 19:32 03/29/23 19:33 2 03/29/23 14:06 03/29/23 15:45 03/29/23 15:29 03/29/23 14:35 2 Diagnostic Findings Critical Care Results & Data Vital Signs (Past 12 Hours) Vital Signs Temp Pulse Pulse Resp BP Pulse Ox O2 Del Method 03/29/23 23:24 36.4 C L 77 18 122/72 98 Nasal Cannula 03/29/23 23:23 89 20 99 Nasal Cannula 03/29/23 22:49 Nasal Cannula 03/29/23 19:32 84 18 123/69 95 Room Air 03/29/23 19:33 82 18 98 Nasal Cannula 03/29/23 14:06 84 03/29/23 15:45 36.8 C 78 18 124/70 97 Room Air 03/29/23 15:29 96 03/29/23 14:35 80 20 97 Nasal Cannula O2 Flow Rate 03/29/23 23:24 03/29/23 23:23 2 03/29/23 22:49 3 03/29/23 19:32 03/29/23 19:33 2 03/29/23 14:06 03/29/23 15:45 03/29/23 15:29 03/29/23 14:35 2 Lab & Micro Results (Past 24 Hours) RBC 3.89 M/uL (4.70-6.10) L 03/29/23 WBC 10.51 K/ul (4.8-10.8) 03/29/23 Hgb 11.6 g/dl (14.0-18.0) L 03/29/23 Hct 34.4 % (42.0-52.0) L 03/29/23 MCV 88.4 fL (80.0-100.0) 03/29/23 MCH 29.8 pg (25.0-34.0) 03/29/23 MCHC 33.7 g/dL (32.0-36.0) 03/29/23 RDW Standard Deviation 44.6 fL (36.4-46.3) 03/29/23 RDW Coefficient of Variation 13.7 % (11.5-14.5) 03/29/23 Plt Count 247 K/uL (130-400) 03/29/23 MPV 10.4 fL (9.4-12.4) 03/29/23 Na 135 mmol/L (136-145) L 03/29/23 K 4.5 mmol/L (3.5-5.1) 03/29/23 Cl 98 mmol/L (98-107) 03/29/23 CO2 28 mmol/L (21-32) 03/29/23 Anion Gap 9 (3-11) 03/29/23 BUN 56 mg/dl (6-23) H 03/29/23 Creatinine 1.96 mg/dl (0.6-1.4) H 03/29/23 Estimated GFR ( Amer) 34.6 ml/min 03/29/23 Estimated GFR (Non-Af Amer) 29.9 ml/min 03/29/23 BUN/Creatinine Ratio 28.6 (10-20) H 03/29/23 Glu 157 mg/dl (70-99(Fasting)) H 03/29/23 Ca 9.2 mg/dl (8.6-10.3) 03/29/23 Mg 1.9 mg/dl (1.7-2.4) 03/29/23 05:55 Calcium Level 9.2 mg/dl (8.6-10.3) 03/29/23 05:55 Diagnostic Findings (Past 24 Hours) Chest CT 03/29/23 06:52 CT OF THE CHEST WITHOUT IV CONTRAST CLINICAL HISTORY: respiratory failure, chf vs pneumonia COMPARISON STUDY: Chest CT March 06, 2023. Chest radiograph March 28, 2023. Chest CT July 28, 2017. CT DOSE: 504.10 mGy.cm TECHNIQUE: Axial images of the chest were obtained without IV contrast. Images were reviewed in the axial, sagittal, and coronal planes. IV contrast was not administered for this examination. Automated exposure control was utilized for the study. A dose lowering technique was utilized adhering to the principles of ALARA. FINDINGS: [id number] bilateral pleural effusions have mildly increased in size since CT of March 06, 2023. There is no pneumothorax. Mild cardiomegaly is present. There is moderate coronary artery calcification. No pericardial effusion. Mildly enlarged mediastinal and bilateral hilar lymph nodes are noted. This is similar to prior exam. These are likely benign. Innumerable nodules within the lungs are noted. These were present on initial CT of July 28, 2017. Diffuse bronchial wall thickening is similar to CT of March 06, 2023. Interlobular septal thickening persists. Extensive right lower lobe airspace opacity with volume loss has progressed since prior CT. Left lower lobe airspace opacity with volume loss has also progressed. There are are irregular right middle lobe and lingular opacities, similar to prior chest CT. IMPRESSION: 1. [id number]-[id number] bilateral pleural effusions, slightly increased since CT of March 06, 2023. Increase in associated bilateral lower lobe airspace opacities with volume loss. These opacities favor atelectasis although pneumonia would be difficult to exclude. 2. Persistent interstitial pulmonary edema, similar to prior exam. 3. No significant change in irregular right middle lobe and lingular opacities. These are nonspecific and may be infectious. A follow-up chest CT in 3 months to ensure resolution is recommended. 4. Innumerable nodules within the lungs which were present on initial CT of July 28, 2017. Differential considerations include silicosis, pneumoconiosis and sarcoidosis. Mycobacterial infection is considered less likely given stability. ACT 112: Negative or not required by law. Electronically signed by: Alexx Foster M.D. 03/29/2023 9:08 AM I & O Totals 24 Hours 03/28/23 03/29/23 03/30/23 06:59 06:59 06:59 Intake Total 1575 / 1575 500 / 500 Output Total 1751 / 1751 725 / 725 Balance -176 / -176 -225 / -225 Cumulative 03/28/23 08:24 thru 03/29/23 22:00 Intake Total 2075 Output Total 2476 Balance -401 RT Ventilator Mngmt (Last Documented) Ventilator Ordered Settings Respiratory Rate 18 03/29/23 23:24 Fraction of Inspired Oxygen 50 03/28/23 09:52 Ventilator - PT Measurements Respiratory Rate 18 PG Care Time/CCT Total # of Minutes Spent Total Time Spent with Patient: Total time spent is greater than 50% in coordination of care (as documented) at patient's floor/unit and/or counseling patient: 60 minutes including [id number] time with patient chart review and chart completion Coding Level of Care Code 45571 IN/OBS CONSULT LVL 4,60M Diagnoses Respiratory failure J96.90 Acute on chronic HFrEF (heart failure with reduced ejection fraction) I50.23 Restrictive lung disease J98.4 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
[2023-03-30] MEDS: CEFEPIME 2,000 MG in SYRINGE 0 ML IV SCH ×2 (00:10→11:36)
[2023-03-30] MEDS: ALBUT/IPRATROP 3MG/0.5MG NEB 3 ML VIAL NEB SCH ×6 (03:21→23:50)
[2023-03-30] MEDS: HEPARIN SOD 5,000 UNIT/0.5 ML VIAL SQ SCH ×3 (05:49→20:14)
[2023-03-30] MEDS: guaiFENesin 600 MG TABCR PO SCH ×2 (05:49→17:45)
[2023-03-30] MEDS: PANTOprazole 40 MG TAB PO SCH (05:50)
[2023-03-30] MEDS: SODIUM CHLOR 7% 4 ML NEB NEB SCH ×2 (06:56→19:15)
[2023-03-30 07:09] LABS: BUN Creatinine Ratio 35.6 (10-20); Calcium 9.6 mg/dl (8.6-10.3); Est GFR (African American) 30.8 ml/min; Est GFR (Non-African American) 26.6 ml/min; Potassium 4.4 mmol/L (3.5-5.1)
--- NOTE | 2023-03-30 08:27 | Cardiology Progress Note ---
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 Recent hospital admission at the beginning of March with similar presentation. Patient with acute on chronic heart failure multifactorial. 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 Suspect silent myocardial infarction in the last 6 to 12 months. High-sensitivity troponin minimally elevated, EKG without acute ST segment changes. PLAN: -Patient remains hypervolemic on exam. Patient received IV Lasix this am (40 mg). For now, continue IV diuresis with Lasix- monitor renal function closely, repeat BMP this afternoon around 1400, prior to evening dose of IV Lasix. -Continue goal-directed medical therapy with carvedilol as ordered. Not on KENNETH inhibitor/ARB due to renal dysfunction. Continue Imdur/Hydralazine combo for afterload reduction. -Treatment of possible pneumonia per primary team. O2/BiPAP use encouraged, wean as tolerated. Appreciate pulmonary suggestions, ? possible need for thoracentesis. Admission and Anticipated Discharge Date Admission Date: March 28, 2023 Supervising Physician Co-Signing Physician Notes Patient seen and examined, chart, medications, telemetry reviewed. Has improved slightly in the past 24 hours but coughing extremely dark productive sputum Edema improving with mild volume overload on exam slightly less abdominal distention Plan as outlined above. IV furosemide for an additional 24 hours, Imdur and hydralazine for afterload reduction. 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 Recent hospital admission at the beginning of March with similar presentation. High-sensitivity troponin minimally elevated, EKG without acute ST segment changes. 03/29: Treatment of underlying heart failure IV diuretic. Imdur and hydralazine combination added for afterload reduction. Pulmonary been consulted for possible thoracentesis, recommended medical management with potential for thoracentesis pending clinical course. Weight down about 1.6 kg. 03/30: Increase in serum creatinine this am (1.81>>2.16). Weight: 88.5 kg >>87.1 kg I&O: -702 mL Tele: SR 70-90s Upon entrance into the room patient resting on the edge of the bed. Son at bedside. Patient with continued concerns regarding significant shortness of breath with minimal exertion, stated "I can't go home like this". Continues to utilize supplemental o2 at rest and with activity. Ongoing leg swelling and orthopnea. +moist productive cough. No chest pain. Denies palpitations or lightheadedness. Review of Systems Review of Systems: All systems reviewed & are unremarkable except as noted in HPI & below Physical Exam Constitutional: + ill appearing; no acute distress Eyes: PERRL, conjunctivae normal, anicteric sclerae Neck: normal visual inspection and trachea midline Respiratory: normal respiratory effort and + cough (productive ); no labored breathing and not tachypneic Auscultation: + rales, + wheezes and + bronchovesicular breath sounds Cardiovascular: Rate/Rhythm: regular rate and regular rhythm Heart Sounds: normal S1 and normal S2; no murmur Vessels: + JVD Extremities: + edema (+2 BLLE pitting edema to knees) Gastrointestinal (Abdomen): Inspection/Auscultation: + abdomen distended Percussion/Palpation: + abdomen firm; abdomen nontender Skin: no rashes, warm and dry Neurologic: PERRL, EOMI, accommodation nl, no face palsy, no dysarthria Psychiatric: A+Ox3, euthymic affect Results & Data Vital Signs (Past 12 Hours) Vital Signs Temp Pulse Pulse Resp BP Pulse Ox O2 Del Method 03/30/23 07:45 36.5 C 88 22 133/79 100 Nasal Cannula 03/30/23 06:57 85 20 94 Nasal Cannula 03/30/23 03:21 79 20 97 Nasal Cannula 03/30/23 03:12 36.5 C 75 18 114/65 98 Nasal Cannula 03/30/23 02:56 76 03/29/23 23:24 36.4 C L 77 18 122/72 98 Nasal Cannula 03/29/23 23:23 89 20 99 Nasal Cannula 03/29/23 22:49 Nasal Cannula O2 Flow Rate 03/30/23 07:45 2 03/30/23 06:57 2 03/30/23 03:21 2 03/30/23 03:12 03/30/23 02:56 03/29/23 23:24 03/29/23 23:23 2 03/29/23 22:49 3 Laboratory Results Comprehensive Metabolic Panel 03/30/23 Range/Units 05:58 Sodium 135 L (136-145) mmol/L Potassium 4.4 (3.5-5.1) mmol/L Chloride 98 (98-107) mmol/L Carbon Dioxide 26 (21-32) mmol/L BUN 77 H D (6-23) mg/dl Creatinine 2.16 H (0.6-1.4) mg/dl Glucose 112 H (70-99(Fasting)) mg/dl Calcium 9.6 (8.6-10.3) mg/dl Intake and Output 03/29/23 03/30/23 03/30/23 22:59 06:59 14:59 Intake Total 100 / 600 Output Total 300 / 1126 401 / 1126 Balance -300 / -526 -301 / -526 Intake: Oral 100 / 600 Output: Urine 300 / 1125 400 / 1125 # Bowel Movements Other: Weight 87.1 kg Weight Measurement Method Standing Scale
--- NOTE | 2023-03-30 08:38 | Electrocardiogram Report ---
Test Reason : Blood Pressure : / mmHG Vent. Rate : 092 BPM Atrial Rate : 091 BPM P-R Int : 000 ms QRS Dur : 090 ms QT Int : 382 ms P-R-T Axes : 000 064 248 degrees QTc Int : 472 ms Poor data quality, interpretation may be adversely affected Sinus rhythm Incomplete left bundle block Nonspecific ST and T wave abnormality Abnormal ECG When compared with ECG of 29-MAR-2023 05:20, No significant change Confirmed by Cecil May ([id number]) on 03/30/2023 8:37:45 AM Referred By: REFERRED SELF Confirmed By:Cecil May
[2023-03-30] MEDS: CITALOPRAM 20 MG TAB PO SCH (09:32)
[2023-03-30] MEDS: FUROSEMIDE 40 MG/4 ML VIAL IV SCH ×2 (09:32→20:12)
[2023-03-30] MEDS: ISOSORBIDE DINITRATE 10 MG TAB PO SCH ×2 (09:32→17:45)
[2023-03-30] MEDS: ADVANCED PROBIOTIC 1250 MG CAPSULE PO SCH (09:33)
[2023-03-30] MEDS: carvediloL 12.5 MG TAB PO SCH ×2 (09:33→20:11)
[2023-03-30] MEDS: ASPIRIN 81 MG ECTAB PO SCH (09:33)
[2023-03-30] MEDS: CYANOCOBALAMIN (B-12) 100 MCG TABLET PO SCH (09:34)
[2023-03-30] MEDS: ROSUVASTATIN CALCIUM 10 MG TAB PO SCH (09:34)
[2023-03-30] MEDS: predniSONE 20 MG TAB PO SCH (09:34)
[2023-03-30] MEDS: TAMSULOSIN HCL 0.4 MG CAP PO SCH (09:35)
[2023-03-30] MEDS: LORATADINE 10 MG TAB PO SCH (09:35)
[2023-03-30] MEDS: DOXYCYCLINE HYCLATE 100 MG CAP PO SCH (09:36)
[2023-03-30] MEDS: hydrALAZINE 10 MG TAB PO SCH ×2 (09:36→20:14)
--- NOTE | 2023-03-30 12:32 | Pulmonology Progress Note ---
Date of Service March 30, 2023 Assessment & Plan (1) Respiratory failure: (2) Acute on chronic HFrEF (heart failure with reduced ejection fraction): (3) Restrictive lung disease: (4) 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, coal, workers': (5) Dyspnea on exertion: (6) Bilateral pleural effusion: Plan Impression: 87-year-old male presents for evaluation for shortness of breath. He is currently being treated for probable pneumonia and respiratory failure. Patient follows with [facility] and previously followed with Dr. Rodney Taveras with [facility] pulmonary group until May 2020. Review of previous notes reveal lack of progression of pulmonary nodules consistent with pneumoconiosis. There is also mention the patient had become more progressively dyspneic going back to at least 2015 to the point where he was no longer able to zhong or climb stairs without resting. It was noted at that time the patient also had chronic snoring with witnessed apnea. Patient also has history of prostate cancer with original onset 11/03/2014 with stage II (A) adenocarcinoma. He was discharged from radiation oncology in December 19 5:20 years of follow-up. Patient denies any history of metastatic disease and specifically has had no history of lung cancer. Aside from progressive shortness of breath, patient has no acute complaints at this time. Recommendations: 1. Acute respiratory failure with hypoxia: Likely multifactorial. The patient has underlying restrictive/interstitial lung disease. Unclear if he has progressed disease not had interval PFTs. Continue to wean oxygen as tolerated. Continue incentive spirometry. We will see how his hypoxemia resolves to add itional diuresis and thoracentesis. With the lack of fever, normal white blood cell count, and negative procalcitonin, I think the likelihood of infection is much less. The patient is currently receiving cefepime and doxycycline. She also been placed on prednisone. He does not appear bronchospastic and I think the prednisone can be discontinued. We will discontinue cefepime and doxycycline and transition to oral amoxicillin for an additional 3 days 2. 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 Patient established with [facility] pulmonary. 3. Bilateral pleural effusions: This certainly could be contributing to the patient's symptoms and are more likely related to fluid overload. He is being diuresed but this may take some time to alleviate these effusions. Thoracentesis may offer him more rapid benefit. The patient is interested in pursuing an invasive approach. We will plan on ultrasound-guided catheter thoracentesis today to confirm exudative nature of the effusions and see if it offers some clinical relief. Additional recommendations will be based on postprocedural chest x-ray and characterization of pleural fluid 4. Restrictive lung disease: Multifactorial. [facility]. 5. Question of obstructive sleep apnea: Outpatient evaluation. A total of 50 minutes was spent in evaluation management coordinating care on this patient. Admission and Anticipated Discharge Date Admission Date: March 28, 2023 Subjective Patient seen and examined. EMR reviewed. Discussed with KEARA. The patient reports that continues to experience some shortness of breath. He is coughing and expectorating occasional phlegm. He is having some difficulty clearing secretions. He previously been on oxygen only at night but is using it more regularly now. He denies fevers chills night sweats or other constitutional symptoms. No palpitations syncope or presyncope Review of Systems Review of Systems: All systems reviewed & are unremarkable except as noted in Subjective Physical Exam Constitutional: not ill appearing Neck: normal visual inspection and trachea midline Respiratory: + labored breathing, + cough and + tachypneic Auscultation: + rales, + rhonchi, + wheezes and + bronchovesicular breath sounds Cardiovascular: Rate/Rhythm: regular rate and regular rhythm Heart Sounds: normal S1 and normal S2; no murmur Vessels: + JVD Extremities: + edema (+3 BLLE pitting edema to thighs, abdominal bloating) Gastrointestinal (Abdomen): Inspection/Auscultation: + abdomen distended P ercussion/Palpation: + abdomen firm; abdomen nontender Skin: no rashes, warm and dry Neurologic: PERRL, EOMI, accommodation nl, no face palsy, no dysarthria Psychiatric: A+Ox3, euthymic affect Results & Data Results & Data Vital Signs (Past 12 Hours) Vital Signs Temp Pulse Pulse Resp BP Pulse Ox O2 Del Method 03/30/23 12:14 36.6 C 86 20 115/70 96 Nasal Cannula 03/30/23 10:55 68 20 93 Nasal Cannula 03/30/23 10:10 95 H 03/30/23 10:10 Nasal Cannula 03/30/23 07:45 36.5 C 88 22 133/79 100 Nasal Cannula 03/30/23 06:57 85 20 94 Nasal Cannula 03/30/23 03:21 79 20 97 Nasal Cannula 03/30/23 03:12 36.5 C 75 18 114/65 98 Nasal Cannula 03/30/23 02:56 76 O2 Flow Rate 03/30/23 12:14 2 03/30/23 10:55 2 03/30/23 10:10 03/30/23 10:10 2 03/30/23 07:45 2 03/30/23 06:57 2 03/30/23 03:21 2 03/30/23 03:12 03/30/23 02:56 Laboratory Results 03/29/23 05:55 03/30/23 05:58 Diagnostic Findings No new imaging PG Care Time/CCT Total # of Minutes Spent Total Time Spent with Patient: Total time spent is greater than 50% in coordination of care (as documented) at patient's floor/unit and/or counseling patient: Coding Level of Care Code 68658 SUB INP/OBS CARE 3/50MIN Diagnoses Respiratory failure J96.90 Acute on chronic HFrEF (heart failure with reduced ejection fraction) I50.23 Restrictive lung disease J98.4 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 Dyspnea on exertion R06.09 Bilateral pleural effusion J90
[2023-03-30] MEDS: AMOXICILLIN 500 MG CAP PO SCH ×2 (13:48→20:10)
[2023-03-30 15:20] LABS: Calcium 9.7 mg/dl (8.6-10.3); Potassium 5.2 mmol/L (3.5-5.1)
[2023-03-30 15:32] LABS: BUN Creatinine Ratio 34.5 (10-20); Creatinine Clr Calc Pharmacy 26.4 ml/min; Est GFR (African American) 28.7 ml/min; Est GFR (Non-African American) 24.7 ml/min
--- NOTE | 2023-03-30 16:37 | XRay Report ---
XR chest 1V portable CLINICAL HISTORY: S/P right thoracentesis r/o pnx COMPARISON STUDY: Chest radiograph March 28, 2023. Chest CT March 29, 2023. FINDINGS: There is no pneumothorax following right thoracentesis. Right pleural effusion has markedly decreased in size since prior exam. A moderate left pleural effusion is noted. Reticulonodular inter stitial thickening within the lungs is again noted. Cardiomediastinal silhouette is stable. IMPRESSION: 1. No pneumothorax following right thoracentesis. Marked decrease in size of the right pleural effusi on. 2. Moderate left pleural effusion. 3. Persistent reticulonodular interstitial thickening within the lungs. ACT 112: Negative or not required by law. Electronically signed by: Alexx Foster M.D. 03/30/2023 4:36 PM
--- NOTE | 2023-03-30 17:08 | Procedure Note ---
Procedure Note Date of Service March 30, 2023 Note Procedure: Diagnostic therapeutic ultrasound-guided catheter thoracentesis, right Controls Project Engineer: Dr. Deniz Lynch Indication: Pleural effusion Consent: Signed by patient and verified with timeout prior to procedure Anesthesia: 8 mL's 1% lidocaine without epinephrine local. Procedure: Consent was verified and timeout performed. Appropriate imaging studies were reviewed prior to the procedure. Patient was placed in a seated position and limited thoracic ultrasound was performed of the bilateral chest. A moderate size right effusion was noted with some compressive atelectasis and lung flapping. A smaller left-sided effusion was noted. We elected to proceed on the right. Site appropriate for thoracentesis was selected. The skin was prepped and draped in normal sterile fashion. Lidocaine was used for local analgesia. Fluid was aspirated via the finder needle. A small skin angelique was made with the scalpel and the catheter over the needle apparatus was advanced over the rib into the pleural space. Using the syringe one-way valve system, a total of 1700 mL's of clear yellow fluid was removed. Procedure was terminated due to patient coughing. The catheter was removed and observed to be intact. A sterile dressing was applied. Post procedure chest x-ray demonstrated no pneumothorax. Postprocedural ultrasound demonstrated persistent lung sliding on the right with minimal residual pleural fluid. Fluid was sent for cytology, cell count differential, Gram stain and culture, LDH, pH, total protein, and glucose. The patient tolerated the procedure well without obvious complication Coding CPT Codes Pulmonary/Thoracic - Pulmonary and Thoracic: 58555 Thoracentesis w imaging ([id number]) [facility] Procedure Codes (Charges) Pulmonary/Thoracic Procedure 1: Pulmonary and Thoracic: 59785 Thoracentesis w imaging
--- NOTE | 2023-03-30 17:43 | Hospitalist Progress Note ---
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 Patient recently admitted to [facility] 03/06 through 03/09 for multifactorial acute hypoxic respiratory failure due to acute systolic heart failure, acute bronchitis secondary to rhinovirus, exacerbation of restrictive lung disease. Patient was treated with IV Lasix and discharged home on home dose Lasix 40 mg daily. Due to worsening renal failure, patient's irbesartan was discontinued. Upon arrival to the ED, patient was in respiratory distress requiring BiPap, no hypoxia documented Received Lasix 40mg IV, Solumedrol 60mg IV, and neb treatment with improvement in symptoms CXR - pulmonary edema, BL pleueral effusions, right basilar opacity; proBNP 2281 Echo 03/07/23 - EF 30-35%; repeat echo ordered HS trop 58.5 -- improved from last admission, likely due to demand ischemia in the setting of CHF, respiratory failure. No reports of chest pain, EKG without acute ST changes. Continue to trend trop. Will give an additional Lasix 20mg IV this evening, then start Lasix 40mg IV BID from tomorrow pending renal functions and volume status Continue beta stanford, ARB d/c'd during last admission due to worsening renal function Low Na+ diet, daily standing weights, strict I/Os Received IV ceftriaxone and IV azithromycin in the ED. WBC 11.7K, afebrile, procal < 0.05. Suspect CHF is causing acute exacerbation of underlying restrictive lung disease. Will monitor off antibiotics for now. Biofire negative Continue with Prednisone 40mg PO daily and pulmonary toilet with mucinex, nebs, flutter valve, IS Wean BiPap as able, typically wears 2L HS and PRN during the day 03/29 Acute hypoxic respiratory failure secondary to acute on chronic CHF exacerbation, possible component of pneumonia in the setting of restrictive lung disease secondary to pneumoconiosis Continue Lasix IV, Imdur and hydralazine added by cardiology service Monitor diureses Start cefepime plus doxycycline Continue nebs, prednisone, Mucinex, flutter valve We will consult pulmonary service (5) CKD (chronic kidney disease), stage III: Plan: Creat 1.8 Recent baseline high 1s-low 2s Irbesartan discontinue during last admission due to worsening renal function Monitor renal functions daily 03/29 Creatinine 1.8 Monitor closely DVT PROPHYLAXIS SQ Heparin Admission and Anticipated Discharge Date Admission Date: March 28, 2023 Results & Data Results & Data Vital Signs (Past 12 Hours) Vital Signs Temp Pulse Pulse Resp BP Pulse Ox O2 Del Method 03/30/23 16:56 36.7 C 86 27 H 129/67 96 Nasal Cannula 03/30/23 16:11 76 03/30/23 14:20 77 20 98 Nasal Cannula 03/30/23 12:14 36.6 C 86 20 115/70 96 Nasal Cannula 03/30/23 10:55 68 20 93 Nasal Cannula 03/30/23 10:10 95 H 03/30/23 10:10 Nasal Cannula 03/30/23 07:45 36.5 C 88 22 133/79 100 Nasal Cannula 03/30/23 06:57 85 20 94 Nasal Cannula O2 Flow Rate 03/30/23 16:56 2 03/30/23 16:11 03/30/23 14:20 2 03/30/23 12:14 2 03/30/23 10:55 2 03/30/23 10:10 03/30/23 10:10 2 03/30/23 07:45 2 03/30/23 06:57 2
[2023-03-30 18:20] LABS: Amylase Pleural Fluid 13 U/L
[2023-03-30 18:48] LABS: Glucose Pleural Fluid 159 mg/dl; LDH Pleural Fluid 142 U/L
[2023-03-30 18:59] LABS: Total Protein Pleural Fluid < 3.0 gm/dl
[2023-03-30 19:10] LABS: Appearance Pleural Fluid Slightly Hazy; Basophils, Fluid 4 %; Color Pleural Fluid Pale Yellow; Lymphocytes, Fluid 40 %; Mono,Macrophage,Mesothelial 39 %; Neutrophils, Fluid 17 %; RBC Pleural Fluid Auto < 2000 /uL; Source Pleural Fluid Right Lung; WBC Pleural Fluid Auto 710 /uL
[2023-03-30] MEDS: FAMOTIDINE 20 MG TAB PO SCH (20:12)
[2023-03-31] MEDS: ALBUT/IPRATROP 3MG/0.5MG NEB 3 ML VIAL NEB SCH ×6 (03:15→23:00)
[2023-03-31] MEDS: HEPARIN SOD 5,000 UNIT/0.5 ML VIAL SQ SCH ×3 (05:50→20:52)
[2023-03-31] MEDS: guaiFENesin 600 MG TABCR PO SCH ×2 (05:50→18:18)
[2023-03-31] MEDS: PANTOprazole 40 MG TAB PO SCH (05:50)
[2023-03-31 06:54] LABS: BUN Creatinine Ratio 36.5 (10-20); Calcium 9.6 mg/dl (8.6-10.3); Creatinine Clr Calc Pharmacy 27.6 ml/min; Est GFR (African American) 30.3 ml/min; Est GFR (Non-African American) 26.1 ml/min; Potassium 4.5 mmol/L (3.5-5.1)
[2023-03-31] MEDS: SODIUM CHLOR 7% 4 ML NEB NEB SCH ×2 (07:16→19:14)
--- NOTE | 2023-03-31 07:31 | Cardiology Progress Note ---
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 Recent hospital admission at the beginning of March with similar presentation. Patient with acute on chronic heart failure multifactorial. 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 Suspect silent myocardial infarction in the last 6 to 12 months. High-sensitivity troponin minimally elevated, EKG without acute ST segment changes. PLAN: -Patient remains hypervolemic on exam- but volume status improving. Continue IV diuresis with Lasix 40 mg twice daily- monitor renal function and electrolytes, BMP in the AM. -Potassium goal of 4.0, mag goal of 2.0- replete as necessary. -Continue goal-directed medical therapy with carvedilol as ordered. Brief episode of tachycardia over night. HR now steady in the 70-90s. Continue Coreg 12.5 mg BID. -Not on KENNETH inhibitor/ARB due to renal dysfunction. Continue isosorbide DN /Hydralazine combo for afterload reduction. -Treatment of possible pneumonia per primary team. O2 use encouraged, wean as tolerated. Appreciate pulmonary suggestions. Case discussed with Dr. Urena- will continue to follow. Admission and Anticipated Discharge Date Admission Date: March 28, 2023 Supervising Physician Co-Signing Physician Notes Patient was seen and examined, chart, medications, telemetry reviewed As above overall improved following thoracentesis. Functional capacity improving renal function remaining stable. 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 Recent hospital admission at the beginning of March with similar presentation. High-sensitivity troponin minimally elevated, EKG without acute ST segment changes. 03/29: Treatment of underlying heart failure IV diuretic. Imdur and hydralazine combination added for afterload reduction. Pulmonary been consulted for possible thoracentesis, recommended medical management with potential for thoracentesis pending clinical course. Weight down about 1.6 kg. 03/30: Increase in serum creatinine this am (1.81>>2.16). Ongoing IV diuresis with Lasix 40 mg twice daily. Seen by pulmonary medicine and underwent thoracentesis draining about 1.7 L of fluid from the right. Repeat chest x-ray showed no pneumothorax with markedly decrease in right pleural effusion. Moderate left pleural effusion remains 03/31: Stable renal function, however serum creatinine remains above baseline (1.6- 1.8), ~2.1 this am. Sodium level normalized. Weight: 88.5 kg >>87.1 kg>>84.1 kg I&O: -3.1L Tele: SR 70-90s Upon entrance into the room patient resting on the edge of the bed. Son at bedside. Patient feeling muchn improved breathing bagley compared to yesterday. Continues to utilize supplemental o2 at rest and with activity. Now able to ambulate to the bathroom comfortably. Ongoing leg swelling, but improved. Orthopnea improving. +moist productive cough. No chest pain. Denies palpitations or lightheadedness Review of Systems Review of Systems: All systems reviewed & are unremarkable except as noted in HPI & below Physical Exam Constitutional: no acute distress Eyes: PERRL, conjunctivae normal, anicteric sclerae Neck: normal visual inspection and trachea midline Respiratory: normal respiratory effort and + cough (productive ); no labored breathing and not tachypneic Auscultation: + diminished lung sounds and + rales (BL bases ); no rhonchi and no wheezes Cardiovascular: Rate/Rhythm: regular rate and regular rhythm Heart Sounds: normal S1 and normal S2; no murmur Vessels: no JVD Extremities: + edema (+1-2 BLLE pitting edema to knees, improving ) Gastrointestinal (Abdomen): normal bowel sounds, soft, nontender, no hepatosplenomegaly Skin: no rashes, warm and dry Neurologic: PERRL, EOMI, accommodation nl, no face palsy, no dysarthria Psychiatric: A+Ox3, euthymic affect Results & Data Vital Signs (Past 12 Hours) Vital Signs Temp Pulse Pulse Resp BP Pulse Ox O2 Del Method 03/31/23 07:20 96 H 03/31/23 07:20 Nasal Cannula 03/31/23 07:17 80 21 99 Nasal Cannula 03/31/23 03:01 36.4 C L 79 18 123/74 99 Nasal Cannula 03/31/23 01:12 77 03/31/23 00:53 Nasal Cannula 03/30/23 22:54 36.5 C 88 18 114/75 97 Nasal Cannula 03/30/23 19:36 36.5 C 104 H 18 118/77 97 Nasal Cannula O2 Flow Rate 03/31/23 07:20 03/31/23 07:20 1 03/31/23 07:17 1.5 03/31/23 03:01 2 03/31/23 01:12 03/31/23 00:53 1 03/30/23 22:54 2 03/30/23 19:36 2 Laboratory Results Comprehensive Metabolic Panel 03/30/23 03/31/23 Range/Units 14:36 05:29 Sodium 133 L 136 (136-145) mmol/L Potassium 5.2 H 4.5 (3.5-5.1) mmol/L Chloride 96 L 96 L (98-107) mmol/L Carbon Dioxide 26 29 (21-32) mmol/L BUN 79 H 80 H (6-23) mg/dl Creatinine 2.29 H 2.19 H (0.6-1.4) mg/dl Glucose 164 H 125 H (70-99(Fasting)) mg/dl Calcium 9.7 9.6 (8.6-10.3) mg/dl Intake and Output 03/30/23 03/31/23 03/31/23 22:59 06:59 14:59 Output Total 400 / 2650 1300 / 2650 Balance -400 / -2410 -1300 / -2410 Output: Urine 400 / 2650 1300 / 2650 Other: Weight 84.1 kg Weight Measurement Method Standing Scale
[2023-03-31] MEDS: carvediloL 12.5 MG TAB PO SCH ×2 (08:20→20:51)
[2023-03-31] MEDS: ROSUVASTATIN CALCIUM 10 MG TAB PO SCH (08:21)
[2023-03-31] MEDS: ASPIRIN 81 MG ECTAB PO SCH (08:21)
[2023-03-31] MEDS: ADVANCED PROBIOTIC 1250 MG CAPSULE PO SCH (08:21)
[2023-03-31] MEDS: LORATADINE 10 MG TAB PO SCH (08:21)
[2023-03-31] MEDS: CITALOPRAM 20 MG TAB PO SCH (08:21)
[2023-03-31] MEDS: AMOXICILLIN 500 MG CAP PO SCH ×2 (08:21→20:51)
[2023-03-31] MEDS: CYANOCOBALAMIN (B-12) 100 MCG TABLET PO SCH (08:22)
[2023-03-31] MEDS: ISOSORBIDE DINITRATE 10 MG TAB PO SCH ×2 (08:22→18:18)
[2023-03-31] MEDS: hydrALAZINE 10 MG TAB PO SCH ×2 (08:22→20:51)
[2023-03-31] MEDS: TAMSULOSIN HCL 0.4 MG CAP PO SCH (08:23)
[2023-03-31] MEDS: FUROSEMIDE 40 MG/4 ML VIAL IV SCH ×2 (08:23→20:52)
--- NOTE | 2023-03-31 09:13 | Pulmonology Progress Note ---
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 He was found to have bilateral pleural effusions and fluid overload and was being diuresed but serum creatinine had bumped and thoracentesis was performed yesterday on the right with removal of about 1700 cc of transudative appearing fluid. He feels markedly better. He does have underlying pneumoconiosis and follows with [facility]. Recommendations: 1. Acute respiratory failure with hypoxia: Likely multifactorial. The patient has underlying restrictive/interstitial lung disease. Significantly improved postthoracentesis. Wean oxygen as tolerated. 2. 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 Patient established with [facility]. 3. Bilateral pleural effusions: Transudative. Await cytology and culture data but suspect these will be negative. The patient is clinically improved. He was offered thoracentesis on the left but declines at this point in time. I think it is reasonable to continue to manage him with diuretics and salt restriction. 4. Restrictive lung disease: Multifactorial. Outpatient follow-up with [facility] recommended. 5. Question of obstructive sleep apnea: Outpatient evaluation. Patient appears potentially stable to discharge from a pulmonary perspective. Ultimate disposition per primary service. Pulmonary will sign off at this point time. Feel free to contact us with additional questions or concerns. He can follow-up with [facility] with whom he is established. We will contact the patient if his remaining pleural fluid pending studies yield actionable data Admission and Anticipated Discharge Date Admission Date: March 28, 2023 Subjective Patient seen and examined. EMR reviewed. The patient underwent thoracentesis yesterday. He states he feels markedly better. He was able to sleep last night for the first time in several weeks. He is not having any pain at the thoracentesis site. No cough. He has had a decrease in his oxygen requirement. He overall feels markedly better. He is not interested in pursuing invasive additional procedures on the left at this time. Review of Systems Review of Systems: All systems reviewed & are unremarkable except as noted in Subjective Physical Exam Constitutional: not ill appearing Neck: normal visual inspection and trachea midline Respiratory: no respiratory distress, no labored breathing, no cough and not tachypneic Auscultation: + diminished lung sounds; no crackles and no wheezes Decreased breath sounds on the left. Thoracentesis site looks normal Cardiovascular: Rate/Rhythm: regular rate and regular rhythm Heart Sounds: normal S1 and normal S2; no murmur Vessels: + JVD Extremities: + edema Gastrointestinal (Abdomen): Percussion/Palpation: abdomen nontender Skin: no rashes, warm and dry Psychiatric: A+Ox3, euthymic affect Results & Data Results & Data Vital Signs (Past 12 Hours) Vital Signs Temp Pulse Pulse Resp BP Pulse Ox O2 Del Method 03/31/23 07:29 36.6 C 80 18 128/79 100 Oxymask, Nebulizer 03/31/23 07:20 96 H 03/31/23 07:20 Nasal Cannula 03/31/23 07:17 80 21 99 Nasal Cannula 03/31/23 03:01 36.4 C L 79 18 123/74 99 Nasal Cannula 03/31/23 01:12 77 03/31/23 00:53 Nasal Cannula 03/30/23 22:54 36.5 C 88 18 114/75 97 Nasal Cannula O2 Flow Rate 03/31/23 07:29 03/31/23 07:20 03/31/23 07:20 1 03/31/23 07:17 1.5 03/31/23 03:01 2 03/31/23 01:12 03/31/23 00:53 1 03/30/23 22:54 2 Laboratory Results 03/29/23 05:55 03/31/23 05:29 Pleural fluid studies: Cell count differential: 17% neutrophils, 40% lymphocytes, 4% basophils and 39% mesothelial cells pH 7.47 Total protein less than 3 LDH 142 Glucose 159 Cytology pending Gram stain showed many white blood cells with no organisms, cultures pending AFB stains and cultures pending Diagnostic Findings Post procedure chest x-ray from yesterday was reviewed. No pneumothorax. The pleural effusion on the right appears resolved. There is residual pleural effusion on the left. 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
--- NOTE | 2023-03-31 17:21 | Hospitalist Progress Note ---
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 Patient recently admitted to [facility] 03/06 through 03/09 for multifactorial acute hypoxic respiratory failure due to acute systolic heart failure, acute bronchitis secondary to rhinovirus, exacerbation of restrictive lung disease. Patient was treated with IV Lasix and discharged home on home dose Lasix 40 mg daily. Due to worsening renal failure, patient's irbesartan was discontinued. Upon arrival to the ED, patient was in respiratory distress requiring BiPap, no hypoxia documented Received Lasix 40mg IV, Solumedrol 60mg IV, and neb treatment with improvement in symptoms CXR - pulmonary edema, BL pleueral effusions, right basilar opacity; proBNP 2281 Echo 03/07/23 - EF 30-35%; repeat echo ordered HS trop 58.5 -- improved from last admission, likely due to demand ischemia in the setting of CHF, respiratory failure. No reports of chest pain, EKG without acute ST changes. Continue to trend trop. Will give an additional Lasix 20mg IV this evening, then start Lasix 40mg IV BID from tomorrow pending renal functions and volume status Continue beta stanford, ARB d/c'd during last admission due to worsening renal function Low Na+ diet, daily standing weights, strict I/Os Received IV ceftriaxone and IV azithromycin in the ED. WBC 11.7K, afebrile, procal < 0.05. Suspect CHF is causing acute exacerbation of underlying restrictive lung disease. Will monitor off antibiotics for now. Biofire negative Continue with Prednisone 40mg PO daily and pulmonary toilet with mucinex, nebs, flutter valve, IS Wean BiPap as able, typically wears 2L HS and PRN during the day 03/31 Acute hypoxic respiratory failure secondary to acute on chronic CHF exacerbation, possible component of pneumonia in the setting of restrictive lung disease secondary to pneumoconiosis Status postthoracentesis 03/30/2023, draining 1.7 L yellow fluid Clinically improving Continue Lasix IV, Imdur and hydralazine as added by cardiology service Monitor diureses cefepime plus doxycycline transition to oral amoxicillin Continue nebs, Mucinex, flutter valve Appreciate cardiology and pulmonology services input (5) CKD (chronic kidney disease), stage III: Plan: Creat 1.8 Recent baseline high 1s-low 2s Irbesartan discontinue during last admission due to worsening renal function Monitor renal functions daily 03/30 Creatinine 2.1 Monitor closely DVT PROPHYLAXIS SQ Heparin Admission and Anticipated Discharge Date Admission Date: March 28, 2023 Subjective Follow-up for acute on chronic CHF, etc. Seen sitting up in bed, comfortable, on 2 L of oxygen States he feels that he is continuing to improve overall Breathing easier compared to admission Less cough and sputum production No other symptoms Review of Systems Review of Systems: all noted and negative except for above Physical Exam Physical Exam: General- oriented x 3, not in distress, speaks in sentences with no effort or accessory muscle use Eyes- anicteric Neck- no JVD Lungs-decreased breath sounds left base Minimal Heart- normal rate, regular rhythm; no murmurs Abdomen- normal bowel sounds, nondistended, soft, nontender Extremities-mild pretibial edema, no calf tenderness Neuro- alert, oriented x 3; no gross focal neurologic deficits Skin- warm & dry Results & Data Results & Data Vital Signs (Past 12 Hours) Vital Signs Temp Pulse Pulse Resp BP Pulse Ox O2 Del Method 03/31/23 15:24 72 03/31/23 14:56 36.6 C 71 18 125/80 100 Nasal Cannula 03/31/23 12:08 74 14 98 Nasal Cannula 03/31/23 10:54 36.3 C L 71 16 122/72 97 Nasal Cannula 03/31/23 07:29 36.6 C 80 18 128/79 100 Oxymask, Nebulizer 03/31/23 07:20 96 H 03/31/23 07:20 Nasal Cannula 03/31/23 07:17 80 21 99 Nasal Cannula O2 Flow Rate 03/31/23 15:24 03/31/23 14:56 2 03/31/23 12:08 2 03/31/23 10:54 2 03/31/23 07:29 03/31/23 07:20 03/31/23 07:20 1 03/31/23 07:17 1.5 all noted and reviewed including below
[2023-03-31] MEDS: FAMOTIDINE 20 MG TAB PO SCH (20:50)
[2023-04-01] MEDS: ALBUT/IPRATROP 3MG/0.5MG NEB 3 ML VIAL NEB SCH ×6 (03:06→22:43)
[2023-04-01] MEDS: guaiFENesin 600 MG TABCR PO SCH ×2 (06:00→17:59)
[2023-04-01] MEDS: PANTOprazole 40 MG TAB PO SCH (06:00)
[2023-04-01] MEDS: HEPARIN SOD 5,000 UNIT/0.5 ML VIAL SQ SCH ×3 (06:00→20:54)
[2023-04-01 06:47] LABS: BUN Creatinine Ratio 34.4 (10-20); Calcium 9.4 mg/dl (8.6-10.3); Est GFR (African American) 29.5 ml/min; Est GFR (Non-African American) 25.4 ml/min; Potassium 4.1 mmol/L (3.5-5.1)
[2023-04-01] MEDS: SODIUM CHLOR 7% 4 ML NEB NEB SCH ×2 (07:17→19:21)
[2023-04-01] MEDS: FUROSEMIDE 40 MG/4 ML VIAL IV SCH (08:06)
[2023-04-01] MEDS: LORATADINE 10 MG TAB PO SCH (08:06)
[2023-04-01] MEDS: ADVANCED PROBIOTIC 1250 MG CAPSULE PO SCH (08:07)
[2023-04-01] MEDS: ROSUVASTATIN CALCIUM 10 MG TAB PO SCH (08:07)
[2023-04-01] MEDS: CYANOCOBALAMIN (B-12) 100 MCG TABLET PO SCH (08:07)
[2023-04-01] MEDS: CITALOPRAM 20 MG TAB PO SCH (08:07)
[2023-04-01] MEDS: TAMSULOSIN HCL 0.4 MG CAP PO SCH (08:08)
[2023-04-01] MEDS: ASPIRIN 81 MG ECTAB PO SCH (08:08)
[2023-04-01] MEDS: carvediloL 12.5 MG TAB PO SCH ×2 (08:09→20:52)
[2023-04-01] MEDS: hydrALAZINE 10 MG TAB PO SCH ×2 (08:09→20:53)
[2023-04-01] MEDS: AMOXICILLIN 500 MG CAP PO SCH ×2 (08:09→20:53)
[2023-04-01] MEDS: ISOSORBIDE DINITRATE 10 MG TAB PO SCH ×2 (08:10→17:59)
--- NOTE | 2023-04-01 11:33 | Cardiology Progress Note ---
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 Transition to oral torsemide in the next 24-48 hours. -Potassium goal of 4.0, mag goal of 2.0- replete as necessary. -Continue goal-directed medical therapy with carvedilol as ordered. -Not on KENNETH inhibitor/ARB due to renal dysfunction. Continue isosorbide DN /Hydralazine combo for afterload reduction. -Treatment of possible pneumonia per primary team. O2 use encouraged, wean as tolerated. Appreciate pulmonary suggestions. Admission and Anticipated Discharge Date Admission Date: March 28, 2023 Subjective Patient seen at the bedside. Reports feeling better since thoracentesis. Fluid balance negative more than 2.5 L. Serum creatinine remains stable. Denies chest pain or heaviness. Telemetry reveals sinus rhythm in the 70s. Review of Systems Review of Systems: All systems reviewed & are unremarkable except as noted in Subjective Physical Exam Constitutional: well nourished; no acute distress Respiratory: no respiratory distress, no labored breathing and no retractions Auscultation: + diminished lung sounds (Left base) and + rales (Left base); no rhonchi and no wheezes Cardiovascular: Rate/Rhythm: regular rate and regular rhythm Heart Sounds: normal S1, normal S2 and + murmur (2/6 low pitched systolic ejection murmur) Gastrointestinal (Abdomen): Inspection/Auscultation: abdomen normal to inspection and normal bowel sounds; abdomen not distended Percussion/Palpation: abdomen soft; abdomen nontender, no guarding and abdomen not rigid Neurologic: CN's II-XI intact bilaterally and moves all extremities; no focal motor deficits Results & Data Vital Signs (Past 12 Hours) Vital Signs Temp Pulse Pulse Resp BP Pulse Ox O2 Del Method 04/01/23 11:14 36.9 C 67 20 112/62 96 Room Air 04/01/23 07:55 36.8 C 84 20 133/81 100 Nasal Cannula 04/01/23 07:17 78 18 98 Nasal Cannula 04/01/23 07:15 99 H 04/01/23 07:15 Nasal Cannula 04/01/23 03:39 36.4 C L 81 20 135/76 98 Nasal Cannula 04/01/23 03:06 81 18 97 Nasal Cannula 04/01/23 00:00 73 O2 Flow Rate 04/01/23 11:14 04/01/23 07:55 1 04/01/23 07:17 2 04/01/23 07:15 04/01/23 07:15 2 04/01/23 03:39 1 04/01/23 03:06 2 04/01/23 00:00 Laboratory Results Comprehensive Metabolic Panel 04/01/23 Range/Units 05:48 Sodium 138 (136-145) mmol/L Potassium 4.1 (3.5-5.1) mmol/L Chloride 98 (98-107) mmol/L Carbon Dioxide 32 (21-32) mmol/L BUN 77 H (6-23) mg/dl Creatinine 2.24 H (0.6-1.4) mg/dl Glucose 106 H (70-99(Fasting)) mg/dl Calcium 9.4 (8.6-10.3) mg/dl Intake and Output 03/31/23 04/01/23 04/01/23 22:59 06:59 14:59 Intake Total 175 / 275 100 / 275 Output Total 400 / 3100 1500 / 3100 500 / 500 Balance -225 / -2825 -1400 / -2825 -500 / -500 Intake: Oral 175 / 275 100 / 275 Output: Urine 400 / 3100 1500 / 3100 500 / 500 Other: Weight 82.7 kg Weight Measurement Method Standing Scale
--- NOTE | 2023-04-01 16:17 | Hospitalist Progress Note ---
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 Patient recently admitted to [facility] 03/06 through 03/09 for multifactorial acute hypoxic respiratory failure due to acute systolic heart failure, acute bronchitis secondary to rhinovirus, exacerbation of restrictive lung disease. Patient was treated with IV Lasix and discharged home on home dose Lasix 40 mg daily. Due to worsening renal failure, patient's irbesartan was discontinued. Upon arrival to the ED, patient was in respiratory distress requiring BiPap, no hypoxia documented Received Lasix 40mg IV, Solumedrol 60mg IV, and neb treatment with improvement in symptoms CXR - pulmonary edema, BL pleueral effusions, right basilar opacity; proBNP 2281 Echo 03/07/23 - EF 30-35%; repeat echo ordered HS trop 58.5 -- improved from last admission, likely due to demand ischemia in the setting of CHF, respiratory failure. No reports of chest pain, EKG without acute ST changes. Continue to trend trop. Will give an additional Lasix 20mg IV this evening, then start Lasix 40mg IV BID from tomorrow pending renal functions and volume status Continue beta stanford, ARB d/c'd during last admission due to worsening renal function Low Na+ diet, daily standing weights, strict I/Os Received IV ceftriaxone and IV azithromycin in the ED. WBC 11.7K, afebrile, procal < 0.05. Suspect CHF is causing acute exacerbation of underlying restrictive lung disease. Will monitor off antibiotics for now. Biofire negative Continue with Prednisone 40mg PO daily and pulmonary toilet with mucinex, nebs, flutter valve, IS Wean BiPap as able, typically wears 2L HS and PRN during the day 04/01 Acute hypoxic respiratory failure secondary to acute on chronic CHF exacerbation, possible component of pneumonia in the setting of restrictive lung disease secondary to pneumoconiosis Status postthoracentesis 03/30/2023, draining 1.7 L yellow fluid Clinically improving Continues to diurese Continue Lasix IV, Imdur and hydralazine Monitor diureses cefepime plus doxycycline transitioned to oral amoxicillin Sputum culture: Gram-negative bacilli Follow-up Continue nebs, Mucinex, flutter valve Appreciate cardiology and pulmonology services input (5) CKD (chronic kidney disease), stage III: Plan: Creat 1.8 Recent baseline high 1s-low 2s Irbesartan discontinue during last admission due to worsening renal function Monitor renal functions daily 04/01 Creatinine 2.2 Monitor closely DVT PROPHYLAXIS SQ Heparin Admission and Anticipated Discharge Date Admission Date: March 28, 2023 Subjective Follow-up for acute CHF, etc. Resting in bed, sitting up, on room air Comfortable, not in distress States he continues to feel improved Breathing Improved No chest pain,, palpitations Cough also less No fevers or chills No other symptoms Review of Systems Review of Systems: all noted and negative except for above Physical Exam Physical Exam: General- oriented x 3, not in distress, speaks in sentences with no effort or accessory muscle use Eyes- anicteric Neck- no JVD Lungs-mild rales left base Heart- normal rate, regular rhythm; no murmurs Abdomen- normal bowel sounds, nondistended, soft, nontender Extremities-trace pretibial edema, no calf tenderness Neuro- alert, oriented x 3; no gross focal neurologic deficits Skin- warm & dry Results & Data Results & Data Vital Signs (Past 12 Hours) Vital Signs Temp Pulse Pulse Resp BP Pulse Ox O2 Del Method 04/01/23 15:53 36.5 C 71 18 125/68 92 Room Air 04/01/23 15:40 69 15 95 Room Air 04/01/23 14:51 74 04/01/23 12:44 62 19 94 Room Air 04/01/23 11:14 36.9 C 67 20 112/62 96 Room Air 04/01/23 07:55 36.8 C 84 20 133/81 100 Nasal Cannula 04/01/23 07:17 78 18 98 Nasal Cannula 04/01/23 07:15 99 H 04/01/23 07:15 Nasal Cannula O2 Flow Rate FiO2 04/01/23 15:53 04/01/23 15:40 21 04/01/23 14:51 04/01/23 12:44 21 04/01/23 11:14 04/01/23 07:55 1 04/01/23 07:17 2 04/01/23 07:15 04/01/23 07:15 2
[2023-04-01] MEDS: FAMOTIDINE 20 MG TAB PO SCH (20:52)
[2023-04-02] MEDS: ALBUT/IPRATROP 3MG/0.5MG NEB 3 ML VIAL NEB SCH ×6 (02:45→19:16)
[2023-04-02] MEDS: PANTOprazole 40 MG TAB PO SCH (06:09)
[2023-04-02] MEDS: HEPARIN SOD 5,000 UNIT/0.5 ML VIAL SQ SCH ×3 (06:09→21:11)
[2023-04-02] MEDS: guaiFENesin 600 MG TABCR PO SCH ×2 (06:10→17:31)
[2023-04-02 07:00] LABS: BUN Creatinine Ratio 35.5 (10-20); Creatinine Clr Calc Pharmacy 30.3 ml/min; Est GFR (African American) 33.8 ml/min; Est GFR (Non-African American) 29.1 ml/min
[2023-04-02] MEDS: SODIUM CHLOR 7% 4 ML NEB NEB SCH ×2 (07:02→19:19)
[2023-04-02] MEDS ORDERED: FUROSEMIDE 40 MG TAB PO SCH (09:00)
[2023-04-02] MEDS ORDERED: FUROSEMIDE 40 MG/4 ML VIAL IV SCH (09:00)
--- NOTE | 2023-04-02 09:03 | XRay Report ---
SINGLE VIEW CHEST CLINICAL HISTORY: Pleural effusion. FINDINGS: An AP, portable, upright chest radiograph is compared to study dated 03/30/2023 and correlat ed with chest CT dated 03/29/2023. The heart is enlarged noting atherosclerotic calcification of the t horacic aorta. There is pulmonary vascular congestion. Bilateral airspace opacities likely represents pulmonary edema. There are left large left pleural effusions with dependent consolidation. The left pleural effusion has decreased in size from 03/30/2023. Numerous tiny nodules are again seen throughou t both lungs. No pneumothorax is identify. The skeletal structures are osteopenic. There is chronic d eformity of the right clavicle. IMPRESSION: 1. Cardiomegaly with evidence of congestive failure and pulmonary edema. This is unchanged to moderat jeremy improved from 03/30/2023. 2. Left larger than right pleural effusions with dependent consolidation. The left pleural effusion a ppears decreased in size from previous. . ACT 112: Negative or not required by law. Electronically signed by: Margarito Skinner M.D. 04/02/2023 9:01 AM
[2023-04-02] MEDS: ROSUVASTATIN CALCIUM 10 MG TAB PO SCH (09:22)
[2023-04-02] MEDS: carvediloL 12.5 MG TAB PO SCH ×2 (09:22→21:14)
[2023-04-02] MEDS: TAMSULOSIN HCL 0.4 MG CAP PO SCH (09:22)
[2023-04-02] MEDS: CITALOPRAM 20 MG TAB PO SCH (09:23)
[2023-04-02] MEDS: ISOSORBIDE DINITRATE 10 MG TAB PO SCH ×2 (09:24→17:31)
[2023-04-02] MEDS: ADVANCED PROBIOTIC 1250 MG CAPSULE PO SCH (09:24)
[2023-04-02] MEDS: ASPIRIN 81 MG ECTAB PO SCH (09:24)
[2023-04-02] MEDS: hydrALAZINE 10 MG TAB PO SCH ×2 (09:24→21:13)
[2023-04-02] MEDS: LORATADINE 10 MG TAB PO SCH (09:24)
[2023-04-02] MEDS: CYANOCOBALAMIN (B-12) 100 MCG TABLET PO SCH (09:24)
[2023-04-02] MEDS: AMOXICILLIN 500 MG CAP PO SCH ×2 (09:25→21:12)
--- NOTE | 2023-04-02 11:51 | Cardiology Progress Note ---
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 Transition to oral torsemide 20 mg daily. Supplement electrolytes as indicated. Continue goal-directed medical therapy with carvedilol. Patient not a candidate for KENNETH inhibitor, ARB, or Aldactone due to renal insufficiency. Continue isosorbide dinitrate and hydralazine. Admission and Anticipated Discharge Date Admission Date: March 28, 2023 Subjective Patient seen and examined at the bedside. Feeling better today. Son present. Patient no longer requiring supplemental oxygen. Fluid balance -1700 cc. Creatinine trending downward. Review of Systems Review of Systems: All systems reviewed & are unremarkable except as noted in Subjective Physical Exam Constitutional: well nourished; no acute distress Respiratory: no respiratory distress, no labored breathing and no retractions Auscultation: + diminished lung sounds (Left base) and + rales (Bilateral bases); no rhonchi and no wheezes Cardiovascular: Rate/Rhythm: regular rate and regular rhythm Heart Sounds: normal S1, normal S2 and + murmur (2/6 low pitched systolic ejection murmur) Vessels: radial pulses present; no JVD and no carotid bruit Extremities: + edema (Mild bilateral lower extremity edema, right greater than left) Gastrointestinal (Abdomen): Inspection/Auscultation: abdomen normal to inspection and normal bowel sounds; abdomen not distended Percussion/Palpation: abdomen soft; abdomen nontender, no guarding and abdomen not rigid Neurologic: CN's II-XI intact bilaterally and moves all extremities; no focal motor deficits Results & Data Vital Signs (Past 12 Hours) Vital Signs Temp Pulse Pulse Pulse Resp BP Pulse Ox 04/02/23 11:12 68 14 98 04/02/23 10:52 36.6 C 69 18 127/67 97 04/02/23 08:13 62 04/02/23 07:09 75 18 98 04/02/23 07:03 36.8 C 67 18 120/60 97 04/02/23 03:04 36.5 C 79 18 122/69 98 04/02/23 00:00 69 O2 Del Method O2 Flow Rate 04/02/23 11:12 Room Air 04/02/23 10:52 Room Air 04/02/23 08:13 04/02/23 07:09 Nasal Cannula 2 04/02/23 07:03 Nasal Cannula 2 04/02/23 03:04 Nasal Cannula 2 04/02/23 00:00 Laboratory Results Comprehensive Metabolic Panel 04/02/23 Range/Units 05:26 Sodium 139 (136-145) mmol/L Potassium 4.0 (3.5-5.1) mmol/L Chloride 100 (98-107) mmol/L Carbon Dioxide 32 (21-32) mmol/L BUN 71 H (6-23) mg/dl Creatinine 2.00 H (0.6-1.4) mg/dl Glucose 107 H (70-99(Fasting)) mg/dl Calcium 9.0 (8.6-10.3) mg/dl Intake and Output 04/01/23 04/02/23 04/02/23 22:59 06:59 14:59 Output Total 200 / 2250 500 / 2250 400 / 400 Balance -200 / -1770 -500 / -1770 -400 / -400 Output: Urine 200 / 2250 500 / 2250 400 / 400 Other: Weight 82.3 kg Weight Measurement Method Standing Scale
--- NOTE | 2023-04-02 15:27 | Hospitalist Progress Note ---
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 Patient recently admitted to [facility] 03/06 through 03/09 for multifactorial acute hypoxic respiratory failure due to acute systolic heart failure, acute bronchitis secondary to rhinovirus, exacerbation of restrictive lung disease. Patient was treated with IV Lasix and discharged home on home dose Lasix 40 mg daily. Due to worsening renal failure, patient's irbesartan was discontinued. Upon arrival to the ED, patient was in respiratory distress requiring BiPap, no hypoxia documented Received Lasix 40mg IV, Solumedrol 60mg IV, and neb treatment with improvement in symptoms CXR - pulmonary edema, BL pleueral effusions, right basilar opacity; proBNP 2281 Echo 03/07/23 - EF 30-35%; repeat echo ordered HS trop 58.5 -- improved from last admission, likely due to demand ischemia in the setting of CHF, respiratory failure. No reports of chest pain, EKG without acute ST changes. Continue to trend trop. Will give an additional Lasix 20mg IV this evening, then start Lasix 40mg IV BID from tomorrow pending renal functions and volume status Continue beta stanford, ARB d/c'd during last admission due to worsening renal function Low Na+ diet, daily standing weights, strict I/Os Received IV ceftriaxone and IV azithromycin in the ED. WBC 11.7K, afebrile, procal < 0.05. Suspect CHF is causing acute exacerbation of underlying restrictive lung disease. Will monitor off antibiotics for now. Biofire negative Continue with Prednisone 40mg PO daily and pulmonary toilet with mucinex, nebs, flutter valve, IS Wean BiPap as able, typically wears 2L HS and PRN during the day / Acute hypoxic respiratory failure secondary to acute on chronic CHF exacerbation, possible component of pneumonia in the setting of restrictive lung disease secondary to pneumoconiosis Status postthoracentesis 03/30/2023, draining 1.7 L yellow fluid Clinically improving Diuresed well Transition from IV Lasix to torsemide 20 mg p.o. daily Monitor closely Continue Imdur and hydralazine cefepime plus doxycycline transitioned to oral amoxicillin Sputum culture: Gram-negative bacilli Follow-up final sputum culture Continue Nebs, Mucinex, flutter valve Appreciate cardiology and pulmonology services input (5) CKD (chronic kidney disease), stage III: Plan: Creat 1.8 Recent baseline high 1s-low 2s Irbesartan discontinue during last admission due to worsening renal function Monitor renal functions daily 04/02 Creatinine 2.0 Monitor closely DVT PROPHYLAXIS SQ Heparin Admission and Anticipated Discharge Date Admission Date: March 28, 2023 Subjective Follow-up for acute CHF, etc. Seen resting in bed, sitting up, on room air States he feels improved compared to admission Breathing is improving, still having some cough productive of brownish sputum No fevers or chills, chest pain Denies abdominal pain, nausea vomiting No other symptoms Review of Systems Review of Systems: all noted and negative except for above Physical Exam Physical Exam: General- oriented x 3, not in distress, speaks in sentences with no effort or accessory muscle use Eyes- anicteric Neck- no JVD Lungs-positive mild crackles left base Clear on the right Heart- normal rate, regular rhythm; no murmurs Abdomen- normal bowel sounds, nondistended, soft, no tenderness Extremities- no pretibial edema, no calf tenderness Neuro- alert, oriented x 3; no gross focal neurologic deficits Skin- warm & dry Results & Data Results & Data Vital Signs (Past 12 Hours) Vital Signs Temp Pulse Pulse Pulse Resp BP Pulse Ox 04/02/23 15:21 36.4 C L 71 18 123/66 97 04/02/23 14:42 74 04/02/23 11:12 68 14 98 04/02/23 10:52 36.6 C 69 18 127/67 97 04/02/23 08:13 62 04/02/23 07:09 75 18 98 04/02/23 07:03 36.8 C 67 18 120/60 97 O2 Del Method O2 Flow Rate 04/02/23 15:21 Room Air 04/02/23 14:42 04/02/23 11:12 Room Air 04/02/23 10:52 Room Air 04/02/23 08:13 04/02/23 07:09 Nasal Cannula 2 04/02/23 07:03 Nasal Cannula 2 all noted and reviewed including below
[2023-04-02] MEDS: FAMOTIDINE 20 MG TAB PO SCH (21:13)
[2023-04-03] MEDS: HEPARIN SOD 5,000 UNIT/0.5 ML VIAL SQ SCH ×3 (06:19→22:04)
[2023-04-03] MEDS: guaiFENesin 600 MG TABCR PO SCH ×2 (06:19→17:26)
[2023-04-03] MEDS: PANTOprazole 40 MG TAB PO SCH (06:19)
[2023-04-03 06:59] LABS: BUN Creatinine Ratio 32.1 (10-20); Calcium 8.8 mg/dl (8.6-10.3); Creatinine Clr Calc Pharmacy 31.8 ml/min; Est GFR (African American) 35.9 ml/min; Potassium 3.8 mmol/L (3.5-5.1)
[2023-04-03] MEDS: SODIUM CHLOR 7% 4 ML NEB NEB SCH ×2 (07:11→19:44)
[2023-04-03] MEDS: ALBUT/IPRATROP 3MG/0.5MG NEB 3 ML VIAL NEB SCH ×4 (07:11→19:44)
[2023-04-03] MEDS: ASPIRIN 81 MG ECTAB PO SCH (08:05)
[2023-04-03] MEDS: AMOXICILLIN 500 MG CAP PO SCH (08:05)
[2023-04-03] MEDS: carvediloL 12.5 MG TAB PO SCH ×2 (08:06→20:24)
[2023-04-03] MEDS: CITALOPRAM 20 MG TAB PO SCH (08:06)
[2023-04-03] MEDS: ISOSORBIDE DINITRATE 10 MG TAB PO SCH ×2 (08:07→17:26)
[2023-04-03] MEDS: hydrALAZINE 10 MG TAB PO SCH ×2 (08:07→20:23)
[2023-04-03] MEDS: CYANOCOBALAMIN (B-12) 100 MCG TABLET PO SCH (08:07)
[2023-04-03] MEDS: ROSUVASTATIN CALCIUM 10 MG TAB PO SCH (08:08)
[2023-04-03] MEDS: TAMSULOSIN HCL 0.4 MG CAP PO SCH (08:08)
[2023-04-03] MEDS: TORSEMIDE 10 MG TAB PO SCH (08:08)
[2023-04-03] MEDS: LORATADINE 10 MG TAB PO SCH (08:08)
[2023-04-03] MEDS: ADVANCED PROBIOTIC 1250 MG CAPSULE PO SCH (08:08)
--- NOTE | 2023-04-03 10:29 | Cardiology Progress Note ---
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 Good outputs over the last 24 hours. Weight trending down. Monitor renal function, electrolytes. creatinine trending downward at 1.9 this morning. Continue goal-directed medical therapy with carvedilol. Patient not a candidate for KENNETH inhibitor, ARB, or Aldactone due to renal insufficiency. Continue isosorbide dinitrate and hydralazine. Patient reports he lives alone. Recommend PT/OT prior to discharge Also consider 2 step prior to discharge? Continue supplemental O2 at night. Case discussed with Dr. Ji I spent a total of 30 minutes on the date of service in preparation, delivery, and documentation of the care provided to this patient, excluding any time spent in the performance of separately billed services. Bekah Mason PA-C Department of Cardiology, [facility] This chart was completed in part utilizing Speech Voice Recognition Software. Grammatical errors, random word insertions, pronoun errors, and incomplete sent ences are an occasional consequence of this system due to software limitations, ambient noise, and hardware issues. Any formal questions or concerns about the content, text, or information contained within the body of this dictation should be directly addressed to the provider for clarification. Admission and Anticipated Discharge Date Admission Date: March 28, 2023 Supervising Physician Co-Signing Physician Notes Supervising Physician Attestation: I have personally performed a history and physical examination on the patient. I agree with the physician assistant professor of philosophy's findings and plan as documented with the following additions. Subjective: Patient continues to make steady progress. Exam: Pulmonary: Mildly decreased breath sounds at the left base Cardiovascular: Regular rhythm, no murmurs, no edema Data: Creatinine 1.9 down from 2.0 Assessment and Plan: Acute on chronic heart failure with reduced ejection fraction Renal insufficiency -Patient transition to oral torsemide 20 mg daily on 04/03/2023. DVT prophylaxis: Subcutaneous Lovenox I spent a total of 20 minutes on the date of service in preparation, delivery, and documentation of the care provided to this patient, excluding any time spent in the performance of separately billed services. [place] Ji, Subjective Patient resting in bed comfortably. Noticed increased dyspnea ambulating in room this morning. Symptoms improved now at rest. Oxygen saturations at 97%. Overall he feels better compared to admission. No chest pain. Cough improving. No edema Review of Systems Review of Systems: All systems reviewed & are unremarkable except as noted in HPI & below Physical Exam Constitutional: WD/WN, vitals as above well nourished; no acute distress Respiratory: no respiratory distress, no labored breathing and no retractions Auscultation: + diminished lung sounds (Left base) and + rales (Bilateral bases); no rhonchi and no wheezes Cardiovascular: Rate/Rhythm: regular rate and regular rhythm Heart Sounds: normal S1, normal S2 and + murmur (2/6 low pitched systolic ejection murmur) Vessels: radial pulses present; no JVD and no carotid bruit Extremities: no edema Gastrointestinal (Abdomen): Inspection/Auscultation: abdomen normal to inspection and normal bowel sounds; abdomen not distended Percussion/Palpation: abdomen soft; abdomen nontender, no guarding and abdomen not rigid Neurologic: CN's II-XI intact bilaterally and moves all extremities; no focal motor deficits Results & Data Vital Signs (Past 12 Hours) Vital Signs Temp Pulse Pulse Resp BP Pulse Ox O2 Del Method 04/03/23 09:00 64 04/03/23 09:00 Room Air 04/03/23 07:11 67 15 97 Nasal Cannula 04/03/23 07:03 36.6 C 66 16 120/67 97 Nasal Cannula 04/03/23 03:00 36.6 C 71 16 118/72 95 Nasal Cannula 04/03/23 00:00 66 04/02/23 23:08 36.7 C 73 18 110/54 L 94 Nasal Cannula O2 Flow Rate 04/03/23 09:00 04/03/23 09:00 04/03/23 07:11 2 04/03/23 07:03 2 04/03/23 03:00 2 04/03/23 00:00 04/02/23 23:08 Laboratory Results Comprehensive Metabolic Panel 04/03/23 Range/Units 05:45 Sodium 137 (136-145) mmol/L Potassium 3.8 (3.5-5.1) mmol/L Chloride 100 (98-107) mmol/L Carbon Dioxide 32 (21-32) mmol/L BUN 61 H (6-23) mg/dl Creatinine 1.90 H (0.6-1.4) mg/dl Glucose 110 H (70-99(Fasting)) mg/dl Calcium 8.8 (8.6-10.3) mg/dl Intake and Output 04/02/23 04/03/23 04/03/23 22:59 06:59 14:59 Intake Total 0 / 1130 250 / 1130 Output Total 800 / 2400 650 / 2400 201 / 201 Balance -800 / -1270 -400 / -1270 -201 / -201 Intake: Oral 0 / 1130 250 / 1130 Output: Urine 800 / 2400 650 / 2400 200 / 200 # Bowel Movements Diagnostic Findings Telemetry reviewed: NSR occ PAC's; HR ranging 60-70 bpm Chest xray reviewed from 04/02/23: IMPRESSION: 1. Cardiomegaly with evidence of congestive failure and pulmonary edema. This is unchanged to moderately improved from 03/30/2023. 2. Left larger than right pleural effusions with dependent consolidation. The left pleural effusion appears decreased in size from previous. Medications Administered Current Inpatient Medications Acetaminophen (Acetaminophen 325 Mg Tab) 650 mg PO Q4H PRN PRN Reason: Pain or Fever Stop: 04/27/23 13:41 Albuterol (Albut/Ipratrop 3mg/0.5mg Neb 3 Ml Vial) 3 ml NEB QID [facility]; Protocol Stop: 05/02/23 16:59 Last Admin: 04/03/23 07:11 Dose: 3 ml Aspirin (Aspirin 81 Mg Ectab) 81 mg PO DAILY [facility] Stop: 04/28/23 08:59 Last Admin: 04/03/23 08:05 Dose: 81 mg Carvedilol (Carvedilol 12.5 Mg Tab) 12.5 mg PO BID [facility] Stop: 04/27/23 20:59 Last Admin: 04/03/23 08:06 Dose: 12.5 mg Citalopram Hydrobromide (Citalopram 20 Mg Tab) 10 mg PO QAM [facility] Stop: 04/28/23 08:59 Last Admin: 04/03/23 08:06 Dose: 10 mg Cyanocobalamin (Cyanocobalamin (B-12) 100 Mcg Tablet) 100 mcg PO DAILY [facility] Stop: 04/28/23 08:59 Last Admin: 04/03/23 08:07 Dose: 100 mcg Famotidine (Famotidine 20 Mg Tab) 20 mg PO HS CLAUDIA Stop: 04/27/23 20:59 Last Admin: 04/02/23 21:13 Dose: 20 mg Guaifenesin (Guaifenesin 600 Mg Tabcr) 600 mg PO Q12H CLAUDIA Stop: 04/27/23 13:41 Last Admin: 04/03/23 06:19 Dose: 600 mg Heparin Sodium (Porcine) (Heparin Sod 5,000 Unit/0.5 Ml Vial) 5,000 units SQ Q8 CLAUDIA Stop: 04/27/23 13:59 Last Admin: 04/03/23 06:19 Dose: 5,000 units Hydralazine HCl (Hydralazine 10 Mg Tab) 10 mg PO BID CLAUDIA Stop: 04/28/23 20:59 Last Admin: 04/03/23 08:07 Dose: 10 mg Isosorbide Dinitrate (Isosorbide Dinitrate 10 Mg Tab) 10 mg PO BID17 [facility] Stop: 04/28/23 16:59 Last Admin: 04/03/23 08:07 Dose: 10 mg Lactobacillus Acidophilus (Advanced Probiotic 1250 Mg Capsule) 2 cap PO DAILY [facility] Stop: 04/28/23 15:44 Last Admin: 04/03/23 08:08 Dose: 2 cap Levofloxacin (Levofloxacin 750 Mg Tab) 750 mg PO Q2D@1100 CLAUDIA; Protocol Stop: 04/10/23 10:59 Loratadine (Loratadine 10 Mg Tab) 10 mg PO DAILY CLAUDIA Stop: 04/28/23 08:59 Last Admin: 04/03/23 08:08 Dose: 10 mg Pantoprazole Sodium (Pantoprazole 40 Mg Tab) 40 mg PO DAILYBB [facility] Stop: 04/28/23 06:29 Last Admin: 04/03/23 06:19 Dose: 40 mg Rosuvastatin Calcium (Rosuvastatin Calcium 10 Mg Tab) 10 mg PO QAM [facility] Stop: 04/28/23 08:59 Last Admin: 04/03/23 08:08 Dose: 10 mg Sodium Chloride (Sodium Chlor 7% 4 Ml Neb) 4 ml NEB BIDR [facility] Stop: 04/28/23 18:59 Last Admin: 04/03/23 07:11 Dose: 4 ml Tamsulosin HCl (Tamsulosin Hcl 0.4 Mg Cap) 0.8 mg PO DAILY CLAUDIA Stop: 04/28/23 08:59 Last Admin: 04/03/23 08:08 Dose: 0.8 mg Torsemide (Torsemide 10 Mg Tab) 20 mg PO QA CLAUDIA Stop: 05/03/23 08:59 Last Admin: 04/03/23 08:08 Dose: 20 mg
[2023-04-03] MEDS: levoFLOXacin 750 MG TAB PO SCH (10:44)
--- NOTE | 2023-04-03 17:31 | Hospitalist Progress Note ---
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 Patient recently admitted to [facility] 03/06 through 03/09 for multifactorial acute hypoxic respiratory failure due to acute systolic heart failure, acute bronchitis secondary to rhinovirus, exacerbation of restrictive lung disease. Patient was treated with IV Lasix and discharged home on home dose Lasix 40 mg daily. Due to worsening renal failure, patient's irbesartan was discontinued. Upon arrival to the ED, patient was in respiratory distress requiring BiPap, no hypoxia documented Received Lasix 40mg IV, Solumedrol 60mg IV, and neb treatment with improvement in symptoms CXR - pulmonary edema, BL pleueral effusions, right basilar opacity; proBNP 2281 Echo 03/07/23 - EF 30-35%; repeat echo ordered HS trop 58.5 -- improved from last admission, likely due to demand ischemia in the setting of CHF, respiratory failure. No reports of chest pain, EKG without acute ST changes. Continue to trend trop. Will give an additional Lasix 20mg IV this evening, then start Lasix 40mg IV BID from tomorrow pending renal functions and volume status Continue beta stanford, ARB d/c'd during last admission due to worsening renal function Low Na+ diet, daily standing weights, strict I/Os Received IV ceftriaxone and IV azithromycin in the ED. WBC 11.7K, afebrile, procal < 0.05. Suspect CHF is causing acute exacerbation of underlying restrictive lung disease. Will monitor off antibiotics for now. Biofire negative Continue with Prednisone 40mg PO daily and pulmonary toilet with mucinex, nebs, flutter valve, IS Wean BiPap as able, typically wears 2L HS and PRN during the day 04/03 Acute hypoxic respiratory failure secondary to acute on chronic CHF exacerbation, possible component of pneumonia in the setting of restrictive lung disease secondary to pneumoconiosis Status postthoracentesis 03/30/2023, draining 1.7 L yellow fluid Clinically improving Transitioned from IV Lasix to torsemide 20 mg p.o. daily Diuresing well Monitor closely Continue Imdur and hydralazine cefepime plus doxycycline transitioned to oral amoxicillin Sputum culture: Stenotrophomonas maltophilia sensitive to Levaquin and Bactrim Amoxicillin transition to Levaquin 750 mg p.o. daily x7 days Continue Nebs, Mucinex, flutter valve Appreciate cardiology and pulmonology services input (5) CKD (chronic kidney disease), stage III: Plan: Creat 1.8 Recent baseline high 1s-low 2s Irbesartan discontinue during last admission due to worsening renal function Monitor renal functions daily 04/02 Creatinine 1.9 Monitor closely DVT PROPHYLAXIS SQ Heparin Admission and Anticipated Discharge Date Admission Date: March 28, 2023 Subjective Follow-up for pleural effusion, acute CHF, pneumonia, etc. Resting in bed, sitting up, on room air States he continues to feel improved overall Breathing continues to improve but still not at baseline Still having some productive cough No chest pain, fevers or chills No other symptom Review of Systems Review of Systems: all noted and negative except for above Physical Exam Physical Exam: General- oriented x 3, not in distress, speaks in sentences with no effort or accessory muscle use Eyes- anicteric Neck- no JVD Lungs-positive mild crackles on the left Heart- normal rate, regular rhythm; no murmurs Abdomen- normal bowel sounds, nondistended, soft, nontender Extremities- no pretibial edema, no calf tenderness Neuro- alert, oriented x 3; no gross focal neurologic deficits Skin- warm & dry Results & Data Results & Data Vital Signs (Past 12 Hours) Vital Signs Temp Pulse Pulse Resp BP Pulse Ox O2 Del Method 04/03/23 15:35 36.9 C 69 18 118/67 97 Room Air 04/03/23 15:10 74 16 97 Room Air 04/03/23 10:57 65 16 99 Room Air 04/03/23 10:53 36.5 C 65 18 119/65 99 Room Air 04/03/23 09:00 64 04/03/23 09:00 Room Air 04/03/23 07:11 67 15 97 Nasal Cannula 04/03/23 07:03 36.6 C 66 16 120/67 97 Nasal Cannula O2 Flow Rate 04/03/23 15:35 04/03/23 15:10 04/03/23 10:57 04/03/23 10:53 04/03/23 09:00 04/03/23 09:00 04/03/23 07:11 2 04/03/23 07:03 2 all noted and reviewed including below
[2023-04-03] MEDS: FAMOTIDINE 20 MG TAB PO SCH (20:23)
[2023-04-04] MEDS: HEPARIN SOD 5,000 UNIT/0.5 ML VIAL SQ SCH ×3 (05:38→21:09)
[2023-04-04] MEDS: guaiFENesin 600 MG TABCR PO SCH ×2 (05:38→17:17)
[2023-04-04] MEDS: PANTOprazole 40 MG TAB PO SCH (05:38)
[2023-04-04 06:32] LABS: BUN Creatinine Ratio 32.5 (10-20); Calcium 8.8 mg/dl (8.6-10.3); Creatinine Clr Calc Pharmacy 31.2 ml/min; Est GFR (Non-African American) 30.2 ml/min; Potassium 3.9 mmol/L (3.5-5.1)
[2023-04-04] MEDS: ALBUT/IPRATROP 3MG/0.5MG NEB 3 ML VIAL NEB SCH ×4 (07:28→20:11)
[2023-04-04] MEDS: SODIUM CHLOR 7% 4 ML NEB NEB SCH ×2 (07:28→20:11)
[2023-04-04] MEDS: TAMSULOSIN HCL 0.4 MG CAP PO SCH (08:42)
[2023-04-04] MEDS: CITALOPRAM 20 MG TAB PO SCH (08:43)
[2023-04-04] MEDS: ISOSORBIDE DINITRATE 10 MG TAB PO SCH ×2 (08:43→17:19)
[2023-04-04] MEDS: CYANOCOBALAMIN (B-12) 100 MCG TABLET PO SCH (08:43)
[2023-04-04] MEDS: carvediloL 12.5 MG TAB PO SCH ×2 (08:44→21:08)
[2023-04-04] MEDS: TORSEMIDE 10 MG TAB PO SCH (08:44)
[2023-04-04] MEDS: ASPIRIN 81 MG ECTAB PO SCH (08:44)
[2023-04-04] MEDS: ADVANCED PROBIOTIC 1250 MG CAPSULE PO SCH (08:44)
[2023-04-04] MEDS: LORATADINE 10 MG TAB PO SCH (08:44)
[2023-04-04] MEDS: ROSUVASTATIN CALCIUM 10 MG TAB PO SCH (08:44)
[2023-04-04] MEDS: hydrALAZINE 10 MG TAB PO SCH ×2 (08:45→21:09)
--- NOTE | 2023-04-04 11:41 | XRay Report ---
SINGLE VIEW CHEST CLINICAL HISTORY: Pleural effusion. FINDINGS: An AP, portable, upright chest radiograph is compared to study dated 04/02/2023 and correlate d with chest CT dated 03/29/2023. The heart is enlarged noting atherosclerotic calcification of the th oracic aorta. There is pulmonary vascular congestion. There are left larger than right pleural effusi ons with dependent consolidation. Numerous tiny nodules are again seen throughout both lungs. No pneu mothorax is identify. The skeletal structures are osteopenic. There is chronic deformity of the right clavicle. IMPRESSION: 1. Cardiomegaly with pulmonary vascular congestion. This has modestly improved from 04/02/2023. 2. Left larger than right pleural effusions with dependent consolidation. This is similar to previous . . ACT 112: Negative or not required by law. Electronically signed by: Margarito Skinner M.D. 04/04/2023 11:38 AM
--- NOTE | 2023-04-04 14:12 | Cardiology Progress Note ---
Date of Service April 04, 2023 Assessment & Plan (1) Acute on chronic HFrEF (heart failure with reduced ejection fraction): Plan: * Continue aspirin, carvedilol, rosuvastatin, isosorbide dinitrate 10 mg twice daily, hydralazine 10 mg twice daily, torsemide 20 mg daily. * DVT prophylaxis: Continue subcutaneous heparin 5000 units subcu q. every 8 hours Admission and Anticipated Discharge Date Admission Date: March 28, 2023 Subjective Patient seen in cardiology follow-up. No subjective complaints at present. Telemetry reveals sinus rhythm in the 60s. Physical Exam Constitutional: WD/WN, vitals as above Respiratory: normal respiratory effort, lungs clear to auscultation Cardiovascular: RRR, no murmur, no edema Gastrointestinal (Abdomen): normal bowel sounds, soft, nontender, no hepatosplenomegaly Neurologic: PERRL, EOMI, accommodation nl, no face palsy, no dysarthria Results & Data Vital Signs (Past 12 Hours) Vital Signs Temp Pulse Pulse Resp BP Pulse Ox O2 Del Method 04/04/23 11:39 36.8 C 65 19 112/54 L 95 Room Air 04/04/23 10:50 71 18 95 Room Air 04/04/23 10:43 72 04/04/23 10:15 Room Air 04/04/23 08:36 68 108/54 L 04/04/23 07:30 36.8 C 64 19 91/62 L 99 Room Air 04/04/23 07:28 64 18 99 Room Air 04/04/23 02:57 36.6 C 69 18 105/58 L 99 Room Air
[2023-04-04] MEDS ORDERED: FUROSEMIDE INJ 20 MG/2 ML VIAL IV ONE (16:15)
--- NOTE | 2023-04-04 16:25 | Hospitalist Progress Note ---
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 Patient recently admitted to [facility] 03/06 through 03/09 for multifactorial acute hypoxic respiratory failure due to acute systolic heart failure, acute bronchitis secondary to rhinovirus, exacerbation of restrictive lung disease. Patient was treated with IV Lasix and discharged home on home dose Lasix 40 mg daily. Due to worsening renal failure, patient's irbesartan was discontinued. CT chest: 1. Ussxm-rm-[id number] bilateral pleural effusions, slightly increased since CT of March 06, 2023. Increase in associated bilateral lower lobe airspace opacities with volume loss. These opacities favor atelectasis although pneumonia would be difficult to exclude. 2. Persistent interstitial pulmonary edema, similar to prior exam. 3. No significant change in irregular right middle lobe and lingular opacities. These are nonspecific and may be infectious. A follow-up chest CT in 3 months to ensure resolution is recommended. 4. Innumerable nodules within the lungs which were present on initial CT of July 28, 2017. Differential considerations include silicosis, pneumoconiosis and sarcoidosis. Mycobacterial infection is considered less likely given stability. Echocardiogram EF 25 to 30%, large wall segment abnormality with mid level and apical segments of left ventricle severely hypokinetic to akinetic, moderate aortic valve sclerosis, mild to moderate mitral regurgitation 03/30/2023: Status postthoracentesis draining 1.7 L yellow fluid Patient given Lasix 40 mg IV twice daily with good diuresis Cardiology service also added Imdur and hydralazine Weaned off oxygen supplementation, currently on room air Transitioned from IV Lasix to torsemide 20 mg p[address]o. daily Repeat CT chest today: Small bilateral pleural effusions bilaterally Will order additional Lasix 20 mg IV this afternoon Continue torsemide 20 g p.o. daily Patient given cefepime plus doxycycline, then transitioned to oral amoxicillin by pulmonary service Sputum culture: Stenotrophomonas maltophilia sensitive to Levaquin and Bactrim Amoxicillin transitioned to Levaquin 750 mg p.o. renally dose to every other day x7 days total, antibiotic day #2 Monitor EKG to follow-up QT intervals Continue Nebs, Mucinex, flutter valve Appreciate cardiology and pulmonology services input Possible discharge tomorrow Will need two-step exercise test New medications upon discharge: Isosorbide dinitrate 10 mg twice daily Hydralazine 10 mg daily Torsemide 20 mg daily (stop usual Lasix 40 mg daily) Levaquin 750 mg every other day to complete 7-day course (currently day #2), repeat EKG in 1 week to ff up QTc interval (5) CKD (chronic kidney disease), stage III: Plan: Creat 1.9 Recent baseline high 1s-low 2s Irbesartan discontinue during last admission due to worsening renal function 04/03 Creatinine 1.9 Monitor closely DVT PROPHYLAXIS SQ Heparin Disposition Lives at home with family Anticipate discharge to home tomorrow Will need two-step exercise test Admission and Anticipated Discharge Date Admission Date: March 28, 2023 Subjective Follow-up for acute on chronic CHF exacerbation, etc. pleural effusion, p neumonia, etc. Seen resting in chair, comfortable, not in distress On room air States breathing continues to improve Still having productive cough, with brown sputum No chest pain, palpitations, dizziness No fevers or chills Overall patient reports he is feeling improved Review of Systems Review of Systems: all noted and negative except for above Physical Exam Physical Exam: General- oriented x 3, not in distress, speaks in sentences with no effort or accessory muscle use Eyes- anicteric Neck- no JVD Lungs-positive very mild rales at the left base, clear on the right No wheezing Heart- normal rate, regular rhythm; no murmurs Abdomen- normal bowel sounds, nondistended, soft, nontender Extremities- no pretibial edema, no calf tenderness Neuro- alert, oriented x 3; no gross focal neurologic deficits Skin- warm & dry Results & Data Results & Data Vital Signs (Past 12 Hours) Vital Signs Temp Pulse Pulse Resp BP Pulse Ox O2 Del Method 04/04/23 15:08 36.8 C 75 19 121/70 96 Room Air 04/04/23 14:49 73 18 96 Room Air 04/04/23 11:39 36.8 C 65 19 112/54 L 95 Room Air 04/04/23 10:50 71 18 95 Room Air 07/04/23 10:43 72 04/04/23 10:15 Room Air 04/04/23 08:36 68 108/54 L 04/04/23 07:30 36.8 C 64 19 91/62 L 99 Room Air 04/04/23 07:28 64 18 99 Room Air all noted and reviewed including below
--- NOTE | 2023-04-04 19:59 | CT Scan Report ---
CT SCAN OF THE CHEST WITHOUT IV CONTRAST CLINICAL HISTORY: Pleural effusion. Pneumonia. COMPARISON STUDY: Chest x-ray dated 04/04/2023. Chest CT dated 03/29/2023 and 07/28/2017. TECHNIQUE: CT scan of the thorax was performed from the thoracic inlet to the upper abdomen. Images are reviewed in the axial, sagittal, and coronal planes. IV contrast was not administered for this ex amination as per the referring clinician. A dose lowering technique was utilized adhering to the conrad osman of [place]. CT DOSE: 453.55 mGy.cm FINDINGS: Thyroid: Atrophic and heterogeneous. Thoracic aorta: There is atherosclerotic calcification of the thoracic aorta, which is normal in zohaib wero and demonstrates standard 3-vessel arch anatomy. Heart: The heart is enlarged and without pericardial effusion. The coronary arteries are densely calc ified. Lungs and pleural spaces: There are deufc-qz-ndeeqcsk pleural effusions with dependent consolidation. Numerous tiny nodules and calcified granulomas are again seen throughout both lungs. Foci of parench ymal scarring are seen throughout both lungs. The trachea is clear. Secretions are noted within the m ainstem bronchi. There is diffuse peribronchial thickening. Mediastinum: There are numerous mildly enlarged mediastinal lymph nodes, several of which contain josias cifications. These measure up to 12 mm in short axis. Danyelle: Not well assessed without IV contrast. Axillae: There is no axillary lymphadenopathy. Upper abdomen: There are calcified splenic granulomas. Partially visualized upper abdominal viscera i s otherwise within normal limits. Skeletal structures: The skeletal structures are osteopenic. Degenerative change is seen in the shoul ders and thoracic spine. There is a chronic compression deformity of T2. No lytic or blastic bony les ions are seen. IMPRESSION: 1. Small to moderate pleural effusions are similar to previous. 2. Dependent consolidation likely represents atelectasis. Clinical clinically for evidence of the sup erimposed pneumonia. 3. Cardiomegaly. 4. Diffuse peribronchial thickening represent fluid overload and/or bronchitis/reactive airway diseas e. Correlate clinically. 5. Numerous tiny pulmonary nodules and calcified granulomas as well as calcification indicating media stinal lymph nodes are similar to prior examinations. This could represents sarcoidosis or less possi andrew a pneumoconiosis. Consider nonemergent/outpatient pulmonology follow-up. 6. Additional findings as above. ACT 112: Negative or not required by law. Electronically signed by: Margarito Skinner M.D. 04/04/2023 7:58 PM
[2023-04-04] MEDS: FAMOTIDINE 20 MG TAB PO SCH (21:09)
[2023-04-05] MEDS: guaiFENesin 600 MG TABCR PO SCH (05:51)
[2023-04-05] MEDS: HEPARIN SOD 5,000 UNIT/0.5 ML VIAL SQ SCH (05:51)
[2023-04-05] MEDS: PANTOprazole 40 MG TAB PO SCH (05:51)
[2023-04-05] MEDS: ALBUT/IPRATROP 3MG/0.5MG NEB 3 ML VIAL NEB SCH ×2 (07:09→11:33)
[2023-04-05] MEDS: SODIUM CHLOR 7% 4 ML NEB NEB SCH (07:09)
[2023-04-05 07:14] LABS: BUN Creatinine Ratio 29.1 (10-20); Calcium 9.1 mg/dl (8.6-10.3); Creatinine Clr Calc Pharmacy 28.2 ml/min; Est GFR (African American) 31.3 ml/min; Potassium 3.9 mmol/L (3.5-5.1)
[2023-04-05] MEDS: LORATADINE 10 MG TAB PO SCH (08:17)
[2023-04-05] MEDS: ROSUVASTATIN CALCIUM 10 MG TAB PO SCH (08:18)
[2023-04-05] MEDS: carvediloL 12.5 MG TAB PO SCH (08:18)
[2023-04-05] MEDS: CYANOCOBALAMIN (B-12) 100 MCG TABLET PO SCH (08:18)
[2023-04-05] MEDS: hydrALAZINE 10 MG TAB PO SCH (08:18)
[2023-04-05] MEDS: ISOSORBIDE DINITRATE 10 MG TAB PO SCH (08:18)
[2023-04-05] MEDS: TORSEMIDE 10 MG TAB PO SCH (08:18)
[2023-04-05] MEDS: ADVANCED PROBIOTIC 1250 MG CAPSULE PO SCH (08:19)
[2023-04-05] MEDS: TAMSULOSIN HCL 0.4 MG CAP PO SCH (08:19)
[2023-04-05] MEDS: ASPIRIN 81 MG ECTAB PO SCH (08:19)
[2023-04-05] MEDS: CITALOPRAM 20 MG TAB PO SCH (08:19)
[2023-04-05] MEDS: levoFLOXacin 750 MG TAB PO SCH (11:01)
--- NOTE | 2023-04-05 13:39 | Discharge Summary ---
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 History obtained from the patient and review of recent inpatient admission records, outpatient PCP and cardiology notes. Patient recently admitted to [facility] 03/06 through 03/09 for multifactorial acute hypoxic respiratory failure due to acute systolic heart failure, acute bronchitis secondary to rhinovirus, exacerbation of restrictive lung disease. Patient was treated with IV Lasix and discharged home on home dose Lasix 40 mg daily. Due to worsening renal failure, patient's irbesartan was discontinued. Cardiac cath was deferred due to renal dysfunction and clinical status. Patient was also treated with empiric IV antibiotics and steroids. Patient reports doing well since arriving home until 2 days ago. Typically wears 2 L of oxygen at night and 2 L during the day. Patient states that he has been rarely using daytime oxygen since arriving home from the hospital. He noted sudden onset exertional shortness of breath and worsening orthopnea. Has been using 2L oxygen continuously the past 2 days. Over the past week, patient noted increasing bilateral lower extremity and pedal edema. Daughter noted increased abdominal distention this morning. Patient reports his weights have been stable however did note a 2 pound weight gain this morning. He reports a chronic cough that is unchanged from baseline. Cough is productive for yellow sputum at times which is unchanged as well. He denies chest pain and palpitations. No lightheadedness, dizziness, diaphoresis, syncopal events. Denies fevers and chills. No abdominal pain, nausea, vomiting, diarrhea. Denies urinary symptoms. In the ED, patient was in respiratory distress requiring BiPAP therapy. He was given nebulizer treatment, IV azithromycin, IV ceftriaxone, IV Lasix 40 mg, IV Solu-Medrol 60 mg. He reports much improvement in his symptoms. Labs show WBC 11.7K, creatinine 1.8, HS troponin 58.5, proBNP 2200. CXR shows signs of pulmonary edema, bilateral pleural effusions, right basilar opacity. Admission Exam Per Admitting Provider Constitutional: WD/WN, vitals as above no acute distress Eyes: PERRL, conjunctivae normal, anicteric sclerae ENMT: external ear and nose normal, oropharynx normal Respiratory: normal respiratory effort; no respiratory distress Auscultation: + diminished lung sounds (Bilateral bases) and + wheezes (Bilateral, expiratory) on Bipap, resting comfortably Cardiovascular: Rate/Rhythm: regular rate and regular rhythm Vessels: normal peripheral pulses Extremities: + edema (+2-3 pitting edema BLE/BL pedal ) Gastrointestinal (Abdomen): Inspection/Auscultation: + abdomen distended (semi firm) and normal bowel sounds Percussion/Palpation: abdomen nontender Musculoskeletal: no cyanosis or clubbing, extremities motor strength 5/5 Skin: no rashes, warm and dry Neurologic: PERRL, EOMI, accommodation nl, no face palsy, no dysarthria Psychiatric: A+Ox3, euthymic affect Principal Diagnosis Acute hypoxic respiratory failure secondary to acute on chronic CHF exacerbation, possible component of pneumonia in the setting of restrictive lung disease secondary to pneumoconiosis Bilateral pleural effusion Discharge Exam General- oriented x 3, not in distress, speaks in sentences with no effort or accessory muscle use Eyes- anicteric Neck- no JVD Lungs-positive very mild rales at the left base, clear on the right No wheezing Heart- normal rate, regular rhythm; no murmurs Abdomen- normal bowel sounds, nondistended, soft, nontender Extremities- no pretibial edema, no calf tenderness Neuro- alert, oriented x 3; no gross focal neurologic deficits Skin- warm & dry Discharge Data Allergies Allergy/AdvReac Type Severity Reaction Status Date / Time No Known Allergies Allergy Verified 03/28/23 09:56 Consultations 03/28/23 09:56 ED Decision to Admit Stat 03/28/23 11:06 Consult Cardiology Routine 03/29/23 09:36 Consult Pulmonology Routine Ordered Studies 03/29/23 06:52 CT chest diagnostic wo con Routine 03/30/23 15:58 sono, invasive monitoring [US point of care ultrasound] Routine 04/04/23 14:44 CT chest diagnostic wo con Routine Hospital Course (1) Respiratory failure: (2) Acute on chronic HFrEF (heart failure with reduced ejection fraction): (3) Restrictive lung disease: (4) 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 Patient recently admitted to [facility] 03/06 through 03/09 for multifactorial acute hypoxic respiratory failure due to acute systolic heart failure, acute bronchitis secondary to rhinovirus, exacerbation of restrictive lung disease. Patient was treated with IV Lasix and discharged home on home dose Lasix 40 mg daily. Due to worsening renal failure, patient's irbesartan was discontinued. CT chest: 1. Xdynt-wp-[id number] bilateral pleural effusions, slightly increased since CT of March 06, 2023. Increase in associated bilateral lower lobe airspace opacities with volume loss. These opacities favor atelectasis although pneumonia would be difficult to exclude. 2. Persistent interstitial pulmonary edema, similar to prior exam. 3. No significant change in irregular right middle lobe and lingular opacities. These are nonspecific and may be infectious. A follow-up chest CT in 3 months to ensure resolution is recommended. 4. Innumerable nodules within the lungs which were present on initial CT of July 28, 2017. Differential considerations include silicosis, pneumoconiosis and sarcoidosis. Mycobacterial infection is considered less likely given stability. Echocardiogram EF 25 to 30%, large wall segment abnormality with mid level and apical segments of left ventricle severely hypokinetic to akinetic, moderate aortic valve sclerosis, mild to moderate mitral regurgitation During the hospitalization, patient was started on IV diuretics with Lasix with good urine output. Cardiology was consulted; recommended Harinder of hydralazine and Imdur. Lasix was stopped and patient was placed on torsemide 20 mg once daily. He underwent thoracentesis on with rating of 1.7 L of fluid on right side. Repeat CT chest showed improvement in pleural effusion. Patient's sputum culture showed Stenotrophomonas maltophilia sensitive to Levaquin and Bactrim. Patient was discharged home on Levaquin to complete 7-day course. Two-step oxygen evaluation was done at discharge; patient did not require any supplemental oxygen. New medications upon discharge: Isosorbide dinitrate 10 mg twice daily Hydralazine 10 mg twice daily Torsemide 20 mg daily (stop usual Lasix 40 mg daily) Levaquin 750 mg every other day to complete 7-day course (currently day #2), Please note the above document was generated using voice recognition software. It may contain grammatical, syntax or spelling errors. Any formal questions or concerns about the content, text or information contained within the body of this dictation should be directly addressed to the provider for clarification Total Time Total Time Spent Total Time Spent (In Minutes): 45 Discharge Plan Discharge Items Patient Disposition: Home - Self-Care Reason For Visit: CHF, COPD, RESP FAILURE Discharge Diagnosis: Acute hypoxic respiratory failure secondary to acute on chronic CHF exacerbation, possible component of pneumonia in the setting of restrictive lung disease secondary to pneumoconiosis Bilateral pleural effusion Activity: Resume your previous activity Non-emergency contact: Primary Care Provider Call non-emergency contact if: you have any medication questions and your symptoms worsen Follow-up/Referrals: Ben Cisneros MD [Primary Care Provider] - (Date & Time 04/11/2023 11:20 AM Provider Ben Cisneros MD Department Family Medicine [facility] ) Diet: Regular Addtl Attending Provider Instructions: You were admitted to the hospital with decreased oxygen level. The likely cause for it is heart failure and pneumonia. You were evaluated by etl software engineer during your hospitalization. He recommended following changes to your medication regimen: 1) stop Lasix. Start taking torsemide 20 mg once a day in the morning 2) start taking hydralazine 10 mg twice daily and isosorbide dinitrate 10 mg twice daily. Prescription has been sent to your pharmacy. For the pneumonia, you are prescribed levofloxacin to be taken every other day on April 07, April 09 and April 11 to complete the antibiotic course. A follow-up has been scheduled with your primary care doctor as outpatient. Pending Studies at Discharge: No Stand-Alone Forms: My [facility], Smoking Cessation Medications and DC Order Prescriptions: New isosorbide dinitrate 10 mg Tablet 10 mg PO [id number] Qty: 60 0RF hydralazine 10 mg Tablet 10 mg PO BID Qty: 60 0RF torsemide 10 mg Tablet 20 mg PO QAM Qty: 30 0RF levofloxacin 750 mg Tablet 750 mg PO Q2D@1100 Qty: 2 0RF Continued fluticasone propionate 50 mcg/actuation spray,suspension 2 sprays intranasal DAILY Qty: 16 5RF triamcinolone acetonide 0.1 % ointment 1 applic topical BID PRN (Reason: Skin Irritation) tamsulosin 0.4 mg capsule 0.8 mg PO DAILY aspirin 81 mg tablet,delayed release (DR/EC) 81 mg PO DAILY Centrum Complete 18-400 mg-mcg tablet 1 tab PO DAILY carvedilol 12.5 mg tablet 12.5 mg PO BID cyanocobalamin (vitamin B-12) [Vitamin B-12] 100 mcg Tablet 100 mcg PO DAILY citalopram 10 mg tablet 10 mg PO QAM pantoprazole 20 mg tablet,delayed release (DR/EC) 20 mg PO DAILYBB famotidine 20 mg Tablet 20 mg PO HS loratadine [Claritin] 10 mg Tablet 10 mg PO DAILY Saline Nasal 0.65 % Aerosol,Cromwell 1 spray INTRANASAL BID PRN (Reason: NASAL DRYNESS) Atrovent HFA 17 mcg/actuation Hfa Aerosol Inhaler 2 puff INHALATION QID guaifenesin 600 mg Tablet Extended Release 12hr 600 mg PO Q12H PRN (Reason: COUGH/CONGESTION) rosuvastatin 10 mg Tablet 10 mg PO QAM Qty: 30 0RF Discontinued furosemide [Lasix] 40 mg Tablet 40 mg PO QAM Discharge Orders: Discharge Order (Routine); Ordered 04/05/23 Ordered By: Ibrahima Heck Admission Data Admit Date/Time: 03/28/23 10:18 Attending Provider: Ibrahima Heck Admit Provider: Jeni Palacios Primary Care Provider: Ben Cisneros Other Providers: Kelvni Urena ; Jeni Palacios ; Deniz Lynch ; Georgi Lei Other Interventions: Discharge Summary Assessment (RN) Last Done: 04/05/23 12:04
--- NOTE | 2023-04-06 22:02 | Electrocardiogram Report ---
Test Reason : Blood Pressure : / mmHG Vent. Rate : 069 BPM Atrial Rate : 069 BPM P-R Int : 198 ms QRS Dur : 094 ms QT Int : 440 ms P-R-T Axes : 094 -23 193 degrees QTc Int : 471 ms Normal sinus rhythm Septal infarct , age undetermined Abnormal ECG When compared with ECG of 30-MAR-2023 06:12, Questionable change in QRS axis Confirmed by Cristian Mosley ([id number]) on 04/06/2023 10:02:27 PM Referred By: REFERRED SELF Confirmed By:Cristian Mosley
== END 2023-04-05 12:59 | disposition home health service (06) | DRG 291 ==
LOC: ED 08:34 → SUATTDRO 10:18 → 2E 10:18
DX: Z92.3 Personal history of irradiation; J18.9 Pneumonia, unspecified organism; Z79.82 Long term (current) use of aspirin; J91.8 Pleural effusion in other conditions classified elsewhere; I42.9 Cardiomyopathy, unspecified; N18.30 Chronic kidney disease, stage 3 unspecified; J98.4 Other disorders of lung; I13.0 Hypertensive heart and chronic kidney disease with heart failure and stage 1 through stage 4 chronic kidney disease, or unspecified chronic kidney disease; J84.9 Interstitial pulmonary disease, unspecified; Z85.46 Personal history of malignant neoplasm of prostate; I24.8 Other forms of acute ischemic heart disease; J96.01 Acute respiratory failure with hypoxia; J60 Coalworker's pneumoconiosis; J96.10 Chronic respiratory failure, unspecified whether with hypoxia or hypercapnia; I50.23 Acute on chronic systolic (congestive) heart failure

== ENCOUNTER 2023-09-09 22:07 | Inpatient (IN) ==
--- OUTSIDE RECORDS SUMMARY | 2023-09-09 22:14 | External Medical Summary | Summary of Care ---
Author Name Unknown Organization [facility] Address [address] [place] [address] Phone [phone] Care Team Providers Care Poolroom Table Attendant Name Role Phone Ben Cisneros MD Primary Care Provider [phone] Reason for Visit * Reason Onset Date Comments Advice 07/17/2023 Question re: [place] st Encounter Details Date Type Department Care Team Description 07/17/2023 Telephone Family Medicine [address] [id number] Ben Cisneros MD [address] [place] [address] [place] [address] Advice (Question re: Boost ) Allergies Active Allergy Reactions Severity Noted Date Comments No Known Drug Allergy 10/12/2000 documented as of this encounter (statuses as of 07/17/2023) Medications Medication Sig Dispensed Refills Start Date End Date Status ASPIRIN 81 MG PO TABS one tab by mouth daily 0 0 12/11/2006 Active CENTRUM PO TABS 1 tablet a day 0 Activ e oxygen IN GAS Use 2 L/min(Oxygen) as directed at bedtime. 0 Active Vitamin B-12 100 MCG Oral Tablet (vitamin B-12) Take 1 Tablet by mouth in the morning. 0 Active Triamcinolone Acetonide 0.1 % External Ointment (Aristocort)Indicati ons:Contact dermatitis, unspecified contact dermatitis type, unspecified trigger apply to rash on lower legs 2 times daily with cerave cream on top 454 g 0 11/22/2021 Active Saline [place] 0.65 % Nasal Solution ([place]) Administer into nostril 1 [place] as needed for Congestion. 60 mL 5 04/08/2022 Active Fluticasone Propionate 50 MCG/ACT Nasal Suspension (Flonase) Administer 2 Sprays into nostril in the morning. 0 Active Flutter Device Provided at visit 1 Each 0 08/09/2022 Active Tamsulosin HCl 0.4 MG Oral Capsule (Flomax)Indications: BPH with obstruction/lower urinary tract symptoms TAKE ONE CAPSULE BY MOUTH TWICE A DAY 200 Capsule 1 03/13/2023 4 Active Rosuvastatin Calcium 10 MG Oral Tablet (Crestor)Indications :Dyslipidemia, goal LDL below 100 TAKE ONE TABLET BY MOUTH AT BEDTIME 100 Tablet 1 03/13/2023 4 Active Pantoprazole Sodium 20 MG Oral Tablet Delayed Release (Protonix)Indication s:Gastroesophageal reflux disease with esophagitis without hemorrhage TAKE ONE TABLET BY MOUTH EVERY MORNING 30 MINUTES BEFORE THE FIRST MEAL OF THE DAY. DO NOT CRUSH, CUT OR CHEW 100 Tablet 1 03/13/2023 4 Active Citalopram Hydrobromide 10 MG Oral Tablet (CeleXA)Indications: SOLEDAD (generalized anxiety disorder) TAKE ONE TABLET BY MOUTH EVERY MORNING. 100 Tablet 1 03/06/2023 4 Active Carvedilol 12.5 MG Oral Tablet (Coreg)Indications:P rimary hypertension,Diastol ic dysfunction Take 1 Tablet by mouth 2 times a day with morning and evening meals. 200 Tablet 1 03/06/2023 Active Famotidine 20 MG Oral Tablet (Pepcid)Indications: Gastroesophageal reflux disease, unspecified whether esophagitis present Take 1 Tablet by mouth in the morning. 90 Tablet 3 04/10/2023 Active hydrALAZINE HCl 10 MG Oral Tablet (Apresoline)Indicati ons:Chronic systolic heart failure (HCC) Take 1 Tablet by mouth in the morning and 1 Tablet in the evening. 200 Tablet 1 04/11/2023 Active Isosorbide Dinitrate 10 MG Oral Tablet (Isordil)Indications :Chronic systolic heart failure (HCC) Take 1 Tablet by mouth in the morning and 1 Tablet before bedtime. 200 Tablet 1 04/11/2023 Active guaiFENesin ER 600 MG Oral Tablet Extended Release 12 Hour Take 1 Tablet by mouth every 12 hours as needed for Cough. 0 Active Empagliflozin 10 MG Oral Tablet (Jardiance)Indicatio ns:Chronic systolic heart failure (HCC) Take 1 Tablet by mouth in the morning. 90 Tablet 3 05/11/2023 Active Torsemide 100 MG Oral Tablet (Demadex) Take 0.5 Tablets by mouth in the morning. 30 Tablet 3 05/11/2023 Active Ipratropium [place] HFA 17 MCG/ACT Inhalation Aerosol Solution (Atrovent Hfa)Indications:[employer] pneumoconiosis (HCC) INHALE TWO PUFFS BY MOUTH FOUR TIMES A DAY - MORNING, NOON, EVENING, AND BEFORE BEDTIME. 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 06/12/2023 Chronic systolic heart failure 3 Interstitial pulmonary disease 3 Pleural effusion due to CHF (congestive heart failure) 04/10/2023 Medical home patient encounter 3 Nocturnal hypoxemia 04/08/2022 Overview: Wears [address], DME: [facility] Chronic rhinitis 04/08/2022 Lung nodules 04/08/2022 Overview: 6 mm and less, stable since 2018, calcified and non-calcified History of tobacco use 04/08/2022 Overview: Quit 1960s Gastroesophageal reflux disease without esophagitis 08/18/2021 Chronic kidney disease, stage 3b 021 Overview: Per CKD protocol Dyslipidemia, goal LDL below 100 020 Degenerative lumbar disc 05/13/2019 Overview: L4-5 History of prostate cancer 05/10/2018 Primary hypertension 05/03/2016 Hx of nonmelanoma skin cancer 05/21/2014 Overview: basal cell carcinoma (L upper chest, L distal neck 11/2019, R lateral lower cheek 11/2019, L anterior hairline 10/2020), Anoop (R mid chest) ADVANCE DIRECTIVE INFORMATION 12/13/2005 Overview: No, Advance Directive brochure given to patient at prior appointment. GENERAL OSTEOARTHROSIS INSOMNIA W SLEEP APNEA [employer] pneumoconiosis Restrictive lung disease documented as of this encounter (statuses as of 07/17/2023) Resolved Problems Problem Noted Date Resolved Date Hospital discharge follow-up 04/10/2023 SOB (shortness of breath) 04/08/20222022 Benign hypertension with stage 3b chronic kidney disease 04/12/2021 06/12/2023 Overview: Per CKD protocol Chronic kidney disease, stage 3a 03/16/2021 04/15/2021 Overview: Per CKD protocol Benign hypertension with stage 3a chronic kidney disease 02/09/2021 04/15/2021 Overview: Per CKD protocol Stage 3a chronic kidney disease 10/05/2020 10/15/2020 Prostate cancer 11/10/2014 05/10/2018 H/O dysplastic nevus 05/21/2014 05/27/2015 Overview: dysplastic nevus (L shoulder) Urinary retention 10/14/2013 05/10/2018 Elevated prostate specific antigen (PSA) 012 05/02/2015 COPD, mild 07/07/2011 07/15/2021 Overview: Per COPD GOLD Classification Benign neoplasm of colon 02/28/2008 018 Overview: adenomatous/ repeat colonoscopy in 3 yrs 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2018 JOINT PAIN-L-LEG 09/30/2003 10/16/2014 Rotator cuff rupture 05/22/2003 05/10/2018 LOC PRIM [id number] 05/22/2003 10/16/19 15 Prepatellar bursitis 05/22/2003 10/16/2014 Inflammation of sacroiliac joint 10/12/2001 10/16/2014 LOC PRIM OSTEOARTH-HAND 10/12/2001 10/16/19 15 Respiratory abnormality 07/31/20 09 Overview: ICD-10 update of inactive term Umbilical hernia 05/10/2018 Insomnia 10/16/2014 Overview: ICD-10 update of inactive term COPD, severity to be determined 07/07/2011 Allergic rhinitis 05/10/2018 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 07/31/20 09 Bilateral carpal tunnel syndrome 05/10/2018 CKD (chronic kidney disease), stage III 12/11/2018 Benign hypertension with CKD (chronic kidney disease) stage III 02/11/2021 Overview: Per CKD protocol documented as of this encounter (statuses as of 07/17/2023) Immunizations Name Administration Dates Next Due COVID-19 mRNA, LNP-s, No Pre serve, 2-Dose Series (Moderna) 01/07/2022,12/31/2020,12/03/2020 Pneumococcal Conjugate Vacc, 13 Valent (Prevnar) 05/02/2015 SEASONAL INFLUENZA, PF, 6 M & Above, IM , (FLULAVAL or FLUZONE) 06/28/2018,07/13/2017 Season Influenza, Quad, PF, Adjuvanted, 65+ Yrs, IM (FLUAD) 07/22/2020 Seasonal Influenza, Quadriva lent Hd (Fluzone Hd) 06/20/2023,07/08/2022,06/17/2021 Seasonal Influenza, Quadriva lent, No Preserve, IM 06/22/2016,06/29/2015 Seasonal Influenza, Split, I IV3, With Preserve, Inj 06/19/2014,06/18/2013,06/19/2012,2010,06/22/2010,07/31/2009,07/22/2008,1 ,07/06/2006 Seasonal Influenza, Trivalen t, Adjuvanted, 65+ yrs 06/25/2019 TD, Preservative Free 07/22/2008 TDAP (age 10 and older)(Boostrix) 10/14/2013 Zoster Vaccine Recombinant (Shingrix) 10/07/2021 ,07/05/2021 documented as of this encounter Social History Tobacco Use Types Packs/Day Years Used Date Smoking Tobacco: Former Cigarettes 0.3 5 Q uit: 05/19/1960 Smokeless Tobacco: Never Alcohol Use Standard Drinks/Week Comments Not Currently 2 (1 standard drink = 0.6 oz pur e alcohol) weekly Food Insecurity Answer Date Recorded Within the past 12 months, y ou worried that your food would run out before you got money to buy more. Never true 02/01/2023 Within the past 12 months, t he food you bought just didn't last and you didn't have money to get more. Never true 02/01/2023 Sex Assigned at Date Recorded Male 07/05/2021 10:09 AM EDT Job Start Date Occupation Industry Not on file Not on file Not on file documented as of this encounter Miscellaneous Notes * Telephone Encounter - Tesha Lewis LPN - 07/17/2023 3:52 PM EDT Pt notified. * Telephone Encounter - Ben Cisneros MD - 07/17/2023 2:59 PM EDT It would * Telephone Encounter - Mone Mann LPN - 07/17/2023 1:02 PM EDT Spoke with Mady from [facility]. She spoke with Yasmine last week. Mady talked to the patient today, patient is trying to gain weight. They discussed possibly starting ensure or boost. Patient informed her that he can only have 48oz of fluid daily. Please advise if Boost or Ensure would be an option for the patient. Contact patient once advised. * Telephone Encounter - SERENA Antonio - 07/17/2023 12:58 PM EDT Reason for Mady's call: Question regarding protein shake for patient Caller was transferred to Mone at the nurse line. documented in this encounter Plan of Treatment Upcoming Encounters Date Type Specialty Care Team Description 08/03/2023 Telemedicine Nutrition Services Kelly Peraza, DARCY [address] [place] [id number] 08/15/2023 Cardiac Studies Cardiac Studies 08/21/2023 Office Visit Cardiology Luh Garcia CRNP [address] [place] [address] 11/29/2023 Office Visit Dermatology Dalila West PA-C [address] [place] [address] [place] [phone] 12/21/2023 Office Visit Family Medicine Claude Mata MD [address] [place] [address] [place] [id number] 07/15/2024 Nurse Only Ancillary Rubina, Nurse Annual Wellness [address] [place] [address] [place] [id number] Health Maintenance Due Date Last Done Comments CKD PHOS USE SMARTSET 85979 05/12/202305/02, 10/05/2020, 04/01/2020, Additional history exists COVID-19 Vaccine ( season) 2023 01/07/2022, 12/31/2020, 12/03/2020 DTaP,Tdap,and Td Vaccines (2 - Td or Tdap) 10/14/2023 10/14/2013, 07/22/2008 Albumin/Creatinine Ratio 02/15/2024 023, 04/07/2022, 10/05/2020, Additional history exists CKD HGB USE SMARTSET 74562 02/15/202402/14, 04/07/2022, 10/05/2020, Additional history exists Depression Screening 07/12/2024 07/12/2023 Pneumococcal Vaccine: 65+ Years Completed 05/02/2015, 10/08/2002 Zoster Vaccines Completed 10/07/2021, 07/05/2021 Influenza Vaccine (FLU shot) Completed , 07/08/2022, 06/17/2021, Additional history exists GARDASIL-HPV IMMUNIZATION SERIES Aged Out No longer eligible based on patient's age to complete this topic Hepatitis B Aged Out No longer eligi ble based on patient's age to complete this topic MENINGOCOCCAL (MENACTRA/MENVEO) Aged Out No longer eligible based on patient's age to complete this topic documented as of this encounter Medical Devices Not on filedocumented as of this encounter Advance Directives Latest Code Status on File Code Status Date Activated Date Inactivated Comments Full Code 06/26/2019 12:28 PM 06/26/2019 5:13 PM This order reflects the patients wishes and were consensually agreed upon. Healthcare Agents on File Name Relationship Healthcare Agent [facility] p Communication Susu Quezada Adult Child Health Care Repr esentative (appointed verbally by patient or by statute hierarchy) Care Teams Poolroom Table Attendant Relationship Specialty Start Date End Date Ben Cisneros MD [address] [place] [address] [place] [id number] PCP - General Family Medicine 05/09/18 documented as of this encounter
--- OUTSIDE RECORDS SUMMARY | 2023-09-09 22:14 | External Medical Summary | Summary of Care ---
Author Name Unknown Organization [facility] Address [address] [place] [address] Phone [phone] Care Team Providers Care Director Of Media Name Role Phone Ben Cisneros MD Primary Care Provider Reason for Visit * Reason Comments Follow Up Encounter Details Date Type Department Care Team (Late st Contact Info) Description 08/21/2023 11:00 AM EST Office Visit Cardiology, [facility] [address] [facility] [place] [address] Luh Garcia CRNP [address] [facility] [address] HFrEF (heart failure with reduced ejection fraction) ([facility])*; Stress-induced cardiomyopathy Allergies Active Allergy Reactions Criticality Noted Date Comments No Known Drug Allergy 10/12/2000 documented as of this encounter (statuses as of 08/21/2023) Medications Medication Sig Dispensed Refills Start Date [...] Active Triamcinolone Acetonide 0.1 % External Ointment (Aristocort)Indicat ions:Contact dermatitis, unspecified contact dermatitis type, unspecified trigger apply to rash on lower legs 2 times daily with cerave cream on top 454 g 0 11/22/2021 Active Saline Ely 0.65 % Nasal Solution (Power) Administer into nostril 1 Ely as needed for Congestion. 60 mL 5 04/08/2022 Active Fluticasone Propionate 50 MCG/ACT Nasal Suspension (Flonase) Administer 2 Sprays into nostril in the morning. 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 TAKE ONE CAPSULE BY MOUTH TWICE A DAY 200 Capsule 1 03/13/2023 4 Active Rosuvastatin Calcium 10 MG Oral Tablet (Crestor)Indication s:Dyslipidemia, goal LDL below 100 TAKE ONE TABLET BY MOUTH AT BEDTIME 100 Tablet 1 03/13/2023 4 Active Pantoprazole Sodium 20 MG Oral Tablet Delayed Release (Protonix)Indicatio ns:Gastroesophageal reflux disease with esophagitis without hemorrhage TAKE ONE TABLET BY MOUTH EVERY MORNING 30 MINUTES BEFORE THE FIRST MEAL OF THE DAY. DO NOT CRUSH, CUT OR CHEW 100 Tablet 1 03/13/2023 4 Active Citalopram Hydrobromide 10 MG Oral Tablet (CeleXA)Indications :SOLEDAD (generalized anxiety disorder) TAKE ONE TABLET BY MOUTH EVERY MORNING. 100 Tablet 1 03/06/2023 4 Active Famotidine 20 MG Oral Tablet (Pepcid)Indications :Gastroesophageal reflux disease, unspecified whether esophagitis present Take 1 Tablet by mouth in the morning. 90 Tablet 3 04/10/2023 Active hydrALAZINE HCl 10 MG Oral Tablet (Apresoline)Indicat ions:Chronic systolic heart failure (HCC) Take 1 Tablet by mouth in the morning and 1 Tablet in the evening. 200 Tablet 1 04/11/2023 Active Isosorbide Dinitrate 10 MG Oral Tablet (Isordil)Indication s:Chronic systolic heart failure (HCC) Take 1 Tablet by mouth in the morning and 1 Tablet before bedtime. 200 Tablet 1 04/11/2023 Active guaiFENesin ER 600 MG Oral Tablet Extended Release 12 Hour Take 1 Tablet by mouth every 12 hours as needed for Cough. 0 Active Empagliflozin 10 MG Oral Tablet (Jardiance)Indicati ons:Chronic systolic heart failure (HCC) Take 1 Tablet by mouth in the morning. 90 Tablet 3 05/11/2023 Active Carvedilol 12.5 MG Oral Tablet (Coreg)Indications: Primary hypertension,Diasto lic dysfunction Take 1 Tablet by mouth 2 times a day with morning and evening meals. 200 Tablet 1 07/18/2023 Active Torsemide 100 MG Oral Tablet (Demadex)Indication s:HFrEF (heart failure with reduced ejection fraction) (HCC) Take 1/2 Tablet by mouth in the morning. 45 Tablet 3 07/31/2023 Active Ipratropium [place] HFA 17 MCG/ACT Inhalation Aerosol Solution (Atrovent HFA)Indications:Coa l workers pneumoconiosis (HCC) INHALE TWO PUFFS BY MOUTH FOUR TIMES A DAY - MORNING, NOON, EVENING, AND BEFORE BEDTIME. 38.7 g 1 08/14/2023 Active Lisinopril 2.5 MG Oral Tablet (Prinivil)Indicatio ns:HFrEF (heart failure with reduced ejection fraction) (HCC),Stress-induce d cardiomyopathy Take 1 Tablet by mouth in the morning. 30 Tablet 11 08/21/2023 Active Lisinopril 2.5 MG Oral Tablet (Prinivil)Indicatio ns:HFrEF (heart failure with reduced ejection fraction) (HCC),Stress-induce d cardiomyopathy Take 1 Tablet by mouth in the morning. 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 stage 3b chronic kidney disease 06/12/2023 Chronic systolic heart failure 04/10/2023 Interstitial pulmonary disease 04/10/2023 Pleural effusion due to CHF (congestive heart fa ilure) 04/10/2023 Medical home patient encounter 03/15/2023 Nocturnal hypoxemia 04/08/2022 Overview: Wears 2 LPM via [place], DME: [facility] Chronic rhinitis 04/08/2022 Lung nodules 04/08/2022 Overview: 6 mm and less, stable since 2019, calcified and non-calcified History of tobacco use 04/08/2022 Overview: Quit 1960s Gastroesophageal reflux disease without esophagi tis 08/18/2021 Chronic kidney disease, stage 3b 04/12/2021 Overview: Per CKD protocol Dyslipidemia, goal LDL below 100 10/15/2019 Degenerative lumbar disc 05/13/2019 Overview: L4-5 History [...] appointment. GENERAL OSTEOARTHROSIS INSOMNIA W SLEEP APNEA Hall workers pneumoconiosis Restrictive lung disease documented as of this encounter (statuses as of 08/21/2023) Resolved Problems Problem Noted Date Diagnosed Date Resolved Date Hospital discharge follow-up 04/10/2023 06/20/2023 SOB (shortness of breath) 04/08/2022 Benign hypertension with sta ge 3b chronic kidney disease 04/12/2021 06/12/2023 Overview: Per CKD protocol Chronic kidney disease, stage 3a 03/16/2021 04/15/2021 Overview: Per CKD protocol Benign hypertension with sta ge 3a chronic kidney disease 02/09/2021 04/15/2021 Overview: Per CKD protocol Stage 3a chronic kidney disease 10/05/2020 10/15/2020 Prostate cancer 11/10/2014 05/10/2018 H/O dysplastic nevus 05/21/2014 015 Overview: dysplastic nevus (L shoulder) Urinary retention 10/14/2013 05/10/2018 Elevated prostate specific antigen (PSA) 04/10/2012 05/02/2015 COPD, mild 07/07/2011 07/15/2021 Overview: Per COPD GOLD Classification Benign neoplasm of colon 02/28/200805/2018 Overview: adenomatous/ repeat colonoscopy in 3 yrs 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 JOINT PAIN-L-LEG 09/30/2003 10/16/2014 Rotator cuff rupture 05/22/2003 018 LOC PRIM [id number] 05/22/200310/02 Prepatellar bursitis 05/22/2003 015 Inflammation of sacroiliac joint 10/12/2001 10/16/2014 LOC PRIM OSTEOARTH-HAND 10/12/200110/02 Respiratory abnormality 07/04 Overview: ICD-10 update of inactive term Umbilical hernia 05/10/2018 Insomnia 10/16/2014 Overview: ICD-10 update of inactive term COPD, severity to be determined 07/07/2011 Allergic rhinitis 05/10/2018 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 07/04 Bilateral carpal tunnel syndrome 05/10/2018 CKD (chronic kidney disease), stage III 12/11/2018 Benign hypertension with CKD (chronic kidney disease) stage III 02/11/2021 Overview: Per CKD protocol documented as of this encounter (statuses as of 08/21/2023) Immunizations Name Administration Dates Next Due COVID-19 [...] 5 Q uit: 05/19/1960 Smokeless Tobacco: Never Tobacco Cessation:Counseling Given: Not Answered Alcohol Use Standard Drinks/Week Comments Not Currently 2 (1 standard drink = 0.6 oz pur e alcohol) weekly PHQ-2 Answer Date Recorded PHQ Adult Total Score 0 07/12/2023 Hunger Vital Sign Answer Date Recorded Within the past 12 months, y ou worried that your food would run out before you got the money to buy more. Never true 04/17/20 23 Within the past 12 months, t he food you bought just didn't last and you didn't have money to get more. Never true 04/17/2023 Sex and Gender Information Value Date Recorded Sex Assigned at Male 07/05/2021 10:09 AM EDT Gender Identity Male 07/05/2021 10:09 AM EDT Sexual Orientation Straight 07/05/2021 10 :09 AM EDT Job Start Date Occupation Industry Not on file Not on file Not on file documented as of this encounter Last Filed Vital Signs Vital Sign Reading Time Taken Comments Blood Pressure 116/48 08/21/2023 11:04 AM EST Pulse 72 08/21/2023 11:04 AM EST Temperature - - Respiratory Rate 14 08/21/2023 11:04 AM EST Oxygen Saturation - - Inhaled Oxygen Concentration - - Weight 83 kg (183 lb) 08/21/2023 11:04 AM EST Height - - Body Mass Index 23.82 07/12/2023 10:11 AM EDT documented in this encounter Progress Notes * Radha Luh DAV Diallo - 08/21/2023 11:00 AM EST 08/21/2023 Cardiology Follow Up Primary Firm Administrator: Dr. Urena Cardiac Problems: 1. 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 CKD Stage 3 3. HTN HPI: Ned Elliott is a 87 year old male presents for follow up. Last seen in our office by the undersigned on 05/11/2023. Prior to that he was Last seen in our office by Dr. Urena on 03/13/23 following a recent hospitalization on 03/06/23 at [facility] for acute hypoxic respiratory failure secondary to mixes pulmonary and cardiac issues. Patient had an exacerbation of underlying intersitial lung disease with COVID as well as superimposed systolic heart failure. Echocardiogram at time of hospitalization demonstrated possible apical ballooning vs ischemic cardiomyopathy. Patient was treated for both lung disease as well as heart failure, and at time of followup showed clinical improvement, while noting continued weakness and requiring O2 supplementation. At time of most recent visit patient presented feeling markedly better. He reports that he continues with O2 supplementation at night (as he did pre- hospitalization). He has become very focused on his diet and water intake, reading labels, and aiming for under 60oz of free water daily. He reports that while his appetite has improved, he continues to feel weak, but states that it is slowing improving. Patient does reports dizziness throughout the day and often will try to be places where he can grab something to stabilize himself. He is checking his weights daily with no weight gain or any further weight loss outside 1-2 lbs. He is also checking his blood pressures, in particular with his dizzy spells and they are often 90 systolic. He reports that when he gets his systolic bp around 110, the dizziness subsides. Most recent labs 05/03/23 showing Cr remaining at 2. Repeat echo (noted below) shows improvement in LVEF to 40-45%. He continues to take all of his medications including his heart failure regimen coreg, torsemide and hydralazine. Denies any chest pain, pressure, palpitations, shortness of breath, PND, syncope or edema. The plan at that time was to repeat his echocardiogram and monitor labs closely. Limited Echocardiogram was obtained on 08/15/2023 showing that his LVEF is stable at 40-44% Patient presents today feeling well. Offers no cardiac questions or concerns. BP well controlled. Reviewed recent limited echo showing no change since last, but remains stable as noted above. Reports medication compliance with no untoward effects. Patient also states that the is starting tonotice his energy level improving. He endorses starting a protein supplement/Ensure shake daily. REVIEW OF SYSTEMS: See HPI for pertinent positives. All others negative other than those noted in the HPI. CONSTITUTIONAL: No change in weight, No weakness, No fatigue and No fevers, No sweats or chills. PULMONARY: No cough, sputum, or hemoptysis, No wheezing, No shortness or breath and No recent change in breathing. CARDIOVASCULAR: No chest pain, No dyspnea on exertion, No edema, No palpitations and No syncope. GASTROINTESTINAL: No abdominal pain, No change in bowel habits, No significant heartburn, No nausea, No vomiting, No diarrhea, No constipation, No blood in stools or black tarry stools. No dysphagia. HEMATOLOGIC: No abnormal bleeding and No bruising. NEUROLOGICAL: Normal balance, No headaches and No weakness. Review of patient's allergies indicates: Allergen Reactions No Known Drug Allergy Current Outpatient Medications Medication Sig Dispense Refill ASPIRIN 81 MG PO TABS one tab by mouth daily 0 0 CENTRUM PO TABS 1 tablet a day oxygen IN GAS Use 2 L/min(Oxygen) as directed at bedtime. Vitamin B-12 100 MCG Oral Tablet (vitamin B-12) Take 1 Tablet by mouth in the morning. Triamcinolone Acetonide 0.1 % External Ointment (Aristocort) apply to rash on lower legs 2 times daily with cerave cream on top 454 g 0 Saline Ely 0.65 % Nasal Solution (Power) Administer into nostril 1 Ely as needed for Congestion. 60 mL 5 Fluticasone Propionate 50 MCG/ACT Nasal Suspension (Flonase) Administer 2 Sprays into nostril in the morning. Flutter Device Provided at visit 1 Each 0 Tamsulosin HCl 0.4 MG Oral Capsule (Flomax) TAKE ONE CAPSULE BY MOUTH TWICE A DAY 200 Capsule 1 Rosuvastatin Calcium 10 MG Oral Tablet (Crestor) TAKE ONE TABLET BY MOUTH AT BEDTIME 100 Tablet 1 Pantoprazole Sodium 20 MG Oral Tablet Delayed Release (Protonix) TAKE ONE TABLET BY MOUTH EVERY MORNING 30 MINUTES BEFORE THE FIRST MEAL OF THE DAY. DO NOT CRUSH, CUT OR CHEW 100 Tablet 1 Citalopram Hydrobromide 10 MG Oral Tablet (CeleXA) TAKE ONE TABLET BY MOUTH EVERY MORNING. 100 Tablet 1 Famotidine 20 MG Oral Tablet (Pepcid) Take 1 Tablet by mouth in the morning. 90 Tablet 3 hydrALAZINE HCl 10 MG Oral Tablet (Apresoline) Take 1 Tablet by mouth in the morning and 1 Tablet in the evening. 200 Tablet 1 Isosorbide Dinitrate 10 MG Oral Tablet (Isordil) Take 1 Tablet by mouth in the morning and 1 Tabletbefore bedtime. 200 Tablet 1 guaiFENesin ER 600 MG Oral Tablet Extended Release 12 Hour Take 1 Tablet by mouth every 12 hours asneeded for Cough. Empagliflozin 10 MG Oral Tablet (Jardiance) Take 1 Tablet by mouth in the morning. 90 Tablet 3 Carvedilol 12.5 MG Oral Tablet (Coreg) Take 1 Tablet by mouth 2 times a day with morning and evening meals. 200 Tablet 1 Torsemide 100 MG Oral Tablet (Demadex) Take 1/2 Tablet by mouth in the morning. 45 Tablet 3 Ipratropium [place] HFA 17 MCG/ACT Inhalation Aerosol Solution (Atrovent HFA) INHALE TWO PUFFS BY MOUTH FOUR TIMES A DAY - MORNING, NOON, EVENING, AND BEFORE BEDTIME. 38.7 g 1 Lisinopril 2.5 MG Oral Tablet (Prinivil) Take 1 Tablet by mouth in the morning. 30 Tablet 11 No current facility-administered medications for this visit. Past Medical History: Diagnosis Date Acute bronchitis due to Rhinovirus 03/06/2023 admitted [facility] Acute respiratory failure (HCC) 03/28/2023 [facility], treated with SoluMedrol, ceftriaxone, azithromycin, culture grew stenotrophomonas maltophilia Allergic rhinitis 11/30/2000 Benign hypertension with CKD (chronic kidney disease) stage III (HCC) Benign neoplasm of colon 02/28/2008 adenomatous/ repeat colonoscopy in 3 yrs Bilateral carpal tunnel syndrome Bronchiectasis (HCC) CKD (chronic kidney disease), stage III (HCC) Hall workers' pneumoconiosis (HCC) COPD, mild (HCC) Degenerative lumbar disc 05/13/2019 L4-5 Essential hypertension with goal blood pressure less than 140/90 Gastroesophageal reflux disease without esophagitis 08/18/2021 Generalized osteoarthritis 10/02/2000 Inflammation of sacroiliac joint (HCC) 10/12/2001 right side Insomnia with sleep apnea 10/02/2000 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 Pneumonia due to hemophilus influenzae (HCC) 08/16/2022 Prepatellar bursitis 05/22/2003 Restrictive lung disease 05/19/2017 Family History Problem Relation Age of Onset Heart Disorder Mother dec. age 82 Heart Disorder Father dec.age 67 , electrocution at mines COPD Father Heart disease Brother Cancer Brother skin Cancer Uncle (Unspecified) dec. 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 Tobacco Use Smoking status: Former Packs/day: 0.25 Years: 5.00 Additional pack years: 0.00 Total pack years: 1.25 Types: Cigarettes Quit date: 05/19/1960 Years since quittin.2 Smokeless tobacco: Never Vaping Use Vaping Use: Never used Substance and Sexual Activity Alcohol use: Not Currently Alcohol/week: 2.0 standard drinks of alcohol Types: 2 12 oz of beer per week Comment: weekly Drug use: No Sexual activity: Yes Partners: Female Social History Narrative In 03/13/10 Social Determinants of Health Food Insecurity: No Food Insecurity (04/17/2023) Hunger Vital Sign Worried About Running Out of Food in the Last Year: Never true Ran Out of Food in the Last Year: Never true OBJECTIVE/PHYSICAL EXAMINATION: BP 116/48 | Pulse 72 | Resp 14 | Wt 83 kg (183 lb) | BMI 23.82 kg/m | BSA 2.07 m General: No acute distress. A+Ox3. HEENT: Normocephalic. Atraumatic. PERRL. EOMI. Conjunctiva and sclera clear. NECK: No carotid bruits. No JVD. Carotid upstrokes are brisk. Heart: RRR. S1 and S2 noted. No murmur. No rubs or gallops. PMI non displaced. Lungs: Clear to auscultation. No wheezes.No rhonchi. No rales. Abdomen: Normal bowel sounds. Soft. Nontender. No masses or organomegaly. No abdominal bruits. Extremities: No edema. No clubbing or cyanosis. Pulses: radial=2/4, posterior tibial=2/4, dorsalis pedis = 2/4. NEURO: No focal deficits. PSYCH: Appropriate affect and insight. DATA Labs & Imaging Reviewed Below: EKG 08/21/2023 Self reviewed. Sinus Bradycardia with 1st degree AV Block Septal infarct (previously cited) ST and T wave abnormality, consider inferolateral ischemia Rate 55bpm Limited Echocardiogram 08/15/2023 LVEF stable 40-44% Echocardiogram 04/13/2023 The left ventricular cavity size is normal. The LV wall thickness is normal. Mid and apical wall segments are severely hypokinetic with apical expansion. Basilar structures contract normally. There is moderate left ventricular dysfunction The qualitative LV ejection fraction is 40-44% (mildly reduced). The left ventricular diastolic function is moderately abnormal (grade II). Mild aortic valve sclerosis is present. Echocardiogram [facility] 03/28/2023 Left ventricle is normal in size There is moderate concentric left ventricular hypertrophy Large wall segment abnormality present with midlevel and apical segments of left ventricle severelyhypokinetic to akinetic with mild expansion EF 25-30% Aortic valve sclerosis moderate, without significant aortic valvular stenosis Mild to moderate MR Mild TR Right ventricular systolic pressure is significantly elevated at 50-60mmHg Moderate size right pleural effusion Echocardiogram 04/07/2022 Normal LV chamber size with mild concentric LVH. Normal LV systolic function without regional wall motion abnormalities current Calculated LV ejection Fraction = 60% (bi-plane method of discs). Grade 2 diastolic dysfunction. Moderate aortic valve sclerosis without stenosis. Mild mitral regurgitation ASSESSMENT/PLAN: 87 year old year old male 1. HFrEF (heart failure with reduced ejection fraction) (HCC) -appears euvolemic on physical exam, nutrition status has improved. -continue coreg 12.5mg PO BID, Hydralazine 10mg BID, and Reduce Torsemide to 50mg PO QAM. Add Lisinopril 2.5mg PO QD for HF regimen. -Continue with BP checks no more than 3 x per day unless symptomatic event. -continue Daily weights and record. Report any weight gain over 2lbs in a 24 hours period. -continue to reading nutrition labels, monitoring free water intake, and eliminating salt from diet. 2. Stress-induced Cardiomyopathy -Limited echo remains stable 40-45% continue coreg 12.5mg PO BID, Hydralazine 10mg BID, Jardiance, and Torsemide to 50mg PO QAM. Add Lisinopril 2.5mg PO QD for HF regimen. DISPOSITION: Follow up 6 months or if symptoms worsen/fail to improve. All questions were answered to the patients satisfaction. Patient advised to report to ED with any and all emergencies. The patient agrees to the above plan and will call with additional questions or concerns. DAV Tran Cardiology, [address] [address] I spent a total of 36 minutes on the date of service in preparation, delivery, and documentation ofthe care provided to Ned Elliott excluding any time spent in the performance of separately billed services. This chart was completed in part utilizing [employer] Speech Voice Recognition Software. Grammatical errors, random word insertions, pronoun errors, and incomplete sentences are an occasional consequence of this system due to software limitations, ambient noise, and hardware issues. Any formal questions or concerns about the content, text, or information contained within the body of this dictation should be directly addressed to the provider for clarification. documented in this encounter Nursing Notes * Jada Gregory LPN - 08/21/2023 11:04 AM EST Examination Room: 4 Name: Ned Elliott Date of : 1935 Reason for Visit: Follow up Problems/Concerns: denies Interim Hosp(s): denies Chest Pain/SOB: denies MyChart Discussed: ALREADY ACTIVE Patient was instructed to not get up on the exam table until directed and assisted by their provider; patient is to remain seated in the chair/ wheelchair/ exam table for fall prevention and safety reasons. Patient is aware to have assistance to step down off exam table with personnel. documented in this encounter Plan of Treatment Upcoming Encounters Date Type Department Care Team (Late st Contact Info) Description 11/29/2023 2:20 PM EST Office Visit Dermatology [address] [place] [address] Dalila West PA-C [address] [place] [address] [place] [id number] 12/21/2023 10:40 AM EDT Office Visit Family Medicine [address] [place] [phone] Claude Mata MD [address] [place] [address] [place] [id number] 02/27/2024 10:00 AM EDT Office Visit Cardiology, [facility] [address] [place] [address] Luh Garcia CRNP [address] [place] [address] 07/15/2024 10:00 AM EDT Nurse Only Ancillary [address] [place] [address] [place], Nurse Annual Wellness [address] [place] [address] [place] [id number] Scheduled Orders Name Type Priority Associated Diagnoses Orde r Schedule EKG EKG Routine HFrEF (heart failure with reduced ejection fraction) (HCC) Stress-induced cardiomyopathy Expected: 08/21/2023 (Approximate), Expires: 09/20/2024 Health Maintenance Due Date Last Done Comments CKD PHOS USE SMARTSET 97692 05/12/202305/02, 10/05/2020, 04/01/2020, Additional history exists COVID-19 Vaccine ( season) 2023 01/07/2022, 12/31/2020, 12/03/2020 DTaP,Tdap,and Td Vaccines (2 - Td or Tdap) 10/14/2023 10/14/2013, 07/22/2008 Albumin/Creatinine Ratio 02/15/2024 023, 04/07/2022, 10/05/2020, Additional history exists CKD HGB USE SMARTSET [id number] 02/15/202402/14, 04/07/2022, 10/05/2020, Additional history exists Depression [...] Not on filedocumented as of this encounter Visit Diagnoses Diagnosis HFrEF (heart failure with reduced ejection fraction) (HCC)- Primary Stress-induced cardiomyopathy Takotsubo syndrome documented in this encounter Advance Directives Latest Code Status on File Code Status Date Activated Date Inactivated Comments Full Code 06/26/2019 12:28 PM 06/26/2019 5:13 PM This order reflects the patients wishes and were consensually agreed upon. Healthcare Agents on File Name Relationship Healthcare Agent Relationshi p Communication Susu Quezada Adult Child Health Care Repr esentative (appointed verbally by patient or by statute hierarchy) Care Teams Director Of Media Relationship Specialty Start Date End Date Ben Cisneros MD [address] [place] [address] [place] [id number] PCP - General Family Medicine 05/09/18 documented as of this encounter"
--- OUTSIDE RECORDS SUMMARY | 2023-09-09 22:14 | External Medical Summary | Summary of Care ---
Author Name Unknown Organization [facility] Address [address] [place] [address] Phone [phone] Care Team Providers Care Neurology Stroke Physician Name Role Phone Arabella Maher MD Primary Care Provider Reason for Referral * Evaluate & Treat - Unlimited Visits (Within 10 days (routine)) - Authorized Specialty Diagnoses / Procedures Referred By Eleazar landaverde Referred To Contact Podiatry Diagnoses Loose toenail Corns and callosities Arabella Maher MD [address] [place] [address] [place] [address] Referral ID Status Reason Start Date Expiration Date Visits Requested Visits Authorized [id number] Authorized Specialty Services Required 3 [phone] Question Answer Referral Priority Within 10 days (routine) Where should this appointment be scheduled? External - [facility] Which condition are you referring this patient for? Toenail Removal Comments Pt has a Loose toenail and callouses on feet Reason for Visit * Reason Onset Date Comments Referral 08/15/2023 Podiatry Encounter Details Date Type Department Care Team (Late st Contact Info) Description 08/15/2023 Telephone Family Medicine [address] [place] [phone] Arabella Maher MD [address] [place] [address] [place] [address] Referral (Podiatry ) Allergies Active Allergy Reactions Criticality Noted Date Comments No Known Drug Allergy 10/12/2000 documented as of this encounter (statuses as of 08/15/2023) Medications Medication Sig Dispensed Refills Start Date [...] top 454 g 0 11/22/2021 Active Saline [place] 0.65 % Nasal Solution ([place]) Administer into nostril 1 [place] as needed for Congestion. 60 mL 5 [...] 4 Active Famotidine 20 MG Oral Tablet (Pepcid)Indications: [...] 05/11/2023 Active Carvedilol 12.5 MG Oral Tablet (Coreg)Indications:P rimary hypertension,Diastol ic dysfunction Take 1 Tablet by mouth 2 times a day with morning and evening meals. 200 Tablet 1 07/18/2023 Active Torsemide 100 MG Oral Tablet (Demadex)Indications :HFrEF (heart failure with reduced ejection fraction) (HCC) Take 1/2 Tablet by mouth in the morning. 45 Tablet 3 07/31/2023 Active Ipratropium [place] HFA 17 MCG/ACT Inhalation Aerosol Solution (Atrovent HFA)Indications:[place] workers pneumoconiosis (HCC) INHALE TWO PUFFS BY MOUTH FOUR TIMES A DAY - MORNING, NOON, EVENING, AND BEFORE BEDTIME. 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 GENERAL OSTEOARTHROSIS INSOMNIA W SLEEP APNEA [place] workers pneumoconiosis Restrictive lung disease documented as of this encounter (statuses as of 08/15/2023) Resolved Problems Problem Noted Date Diagnosed Date [...] Rotator cuff rupture 05/22/2003 018 LOC PRIM [id number] 05/22/200310/02 Prepatellar bursitis 05/22/2003 015 Inflammation of sacroiliac joint 10/12/2001 10/16/2014 LOC PRIM OSTEOARTH-HAND 10/12/200110/02 Respiratory abnormality 07/04 Overview: ICD-10 update of inactive term Umbilical hernia 05/10/2018 Insomnia 10/16/2014 Overview: ICD-10 update of inactive term COPD, severity to be determined 07/07/2011 Allergic rhinitis 05/10/2018 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 07/04 Bilateral carpal tunnel syndrome 05/10/2018 CKD (chronic kidney disease), stage III 12/11/2018 Benign hypertension with CKD (chronic kidney disease) stage III 02/11/2021 Overview: Per CKD protocol documented as of this encounter (statuses as of 08/15/2023) Immunizations Name Administration Dates Next Due COVID-19 mRNA, LNP-s, No Pre serve, 2-Dose Series (Moderna) 01/07/2022,12/31/2020,12/03/2020 Pneumococcal Conjugate Vacc, 13 Valent (Prevnar) 05/02/2015 Pneumococcal Polysaccharide PPV23 (Pneumovax) 10/08/2002 SEASONAL INFLUENZA, PF, 6 M & Above, IM , (FLULAVAL or FLUZONE) 06/28/2018,07/13/2017 Season Influenza, Quad, PF, Adjuvanted, 65+ Yrs, IM (FLUAD) 07/22/2020 Seasonal Influenza, Quadriva lent Hd (Fluzone Hd) 06/20/2023,07/08/2022,06/17/2021 Seasonal Influenza, Quadriva lent, No Preserve, IM 06/22/2016,06/29/2015 Seasonal Influenza, Split, I IV3, With Preserve, Inj 06/19/2014,06/18/2013,06/19/2012,06/21,06/22/2010,07/31/2009,07/22/2008 ,07/17/2007,07/06/2006,07/05/2005,09/01,07/29/2002 Seasonal Influenza, Trivalen t, Adjuvanted, 65+ yrs [...] the money to buy more. Never true 02/02/20 23 Within the past 12 months, t he food you bought just didn't last and you didn't have money to get more. Never true 02/01/2023 Sex and Gender Information Value Date Recorded Sex Assigned at Male 07/05/2021 10:09 AM EDT Gender Identity Male 07/05/2021 10:09 AM EDT Sexual Orientation Straight 07/05/2021 10 :09 AM EDT Job Start Date Occupation Industry Not on file Not on file Not on file documented as of this encounter Miscellaneous Notes * Telephone Encounter - Sophie Kaur OSA - 08/15/2023 1:40 PM EST Referral and records faxed to [facility] at [phone] to get appt scheduled in [facility] office. They will call pt. Pt aware. * Addendum Note - Arabella Maher MD - 08/15/2023 1:00 PM ESTAddended by: ARABELLA MAHER on: 08/15/2023 01:00 PM Modules accepted: Orders * Addendum Note - Tatiana Gomes RN - 08/15/2023 12:51 PM ESTAddended by: TATIANA OGMES on: 08/15/2023 12:51 PM Modules accepted: Orders * Telephone Encounter - Sophie Kaur OSA - 08/15/2023 9:12 AM EST [place] would like a referral placed to see the Podiatry that come into [facility] for a loose right big toenail and callouses. documented in this encounter Plan of Treatment Upcoming Encounters Date Type Department Care Team (Late st Contact Info) Description 08/21/2023 11:00 AM EST Office Visit Cardiology, [facility] [place] [address] [place] [address] Luh Garcia CRNP [address] [place] [address] 11/29/2023 2:20 PM EST Office Visit Dermatology [address] [place] [address] Dalila West PA-C [address] [place] [address] [place] [address] 12/21/2023 10:40 AM EDT Office Visit Family Medicine [address] [place] [phone] Claude Mata MD [address] [place] [address] [place] [address] 07/15/2024 10:00 AM EDT Nurse Only Ancillary [address] [place] [address] [place], Nurse Annual [address] [place] [address] Scheduled Referrals Name Type Priority Associated Diagnoses Orde r Schedule PODIATRY REFERRAL OP Referral Within 10 days (routine) Loose toenail Corns and callosities Ordered: 08/15/2023 Health Maintenance Due Date Last Done Comments CKD PHOS USE SMARTSET 82838 05/12/202305/02, 10/05/2020, 04/01/2020, Additional history exists COVID-19 Vaccine ( - 2022- season) 2023 01/07/2022, 12/31/2020, 12/03/2020 DTaP,Tdap,and Td Vaccines (2 - Td or Tdap) 10/14/2023 10/14/2013, 07/22/2008 Albumin/Creatinine Ratio 02/15/2024 023, 04/07/2022, 10/05/2020, Additional history exists CKD HGB USE SMARTSET 83690 02/15/202402/14, 04/07/2022, 10/05/2020, Additional history exists Depression [...] as of this encounter Visit Diagnoses Diagnosis Loose toenail- Primary Other specified disease of nail Corns and callosities documented in this encounter Advance Directives Latest Code Status on File Code Status Date Activated Date Inactivated Comments Full Code 06/26/2019 12:28 PM 06/26/2019 5:13 PM This order reflects the patients wishes and were consensually agreed upon. Healthcare Agents on File Name Relationship Healthcare Agent [facility] Communication Susu Quezada Adult Child Health Care Repr esentative (appointed verbally by patient or by statute hierarchy) Care Teams Neurology Stroke Physician Relationship Specialty Start Date End Date Arabella Maher MD [address] [place] [address] [place] [address] PCP - General Family Medicine 05/09/18 documented as of this encounter
--- OUTSIDE RECORDS SUMMARY | 2023-09-09 22:14 | External Medical Summary | Summary of Care ---
Author Name Unknown Organization [facility] Address [address] [place] [address] Phone [phone] Care Team Providers Care Tablet Machine Operator Name Role Phone Arabella Maher MD Primary Care Provider [phone] Reason for Referral * Evaluate & Treat - Unlimited Visits (Within 10 days (routine)) - Authorized Specialty Diagnoses / Procedures Referred By Eleazar landaverde Referred To Contact Podiatry Diagnoses Loose toenail Corns and callosities Arabella Maher MD [address] [place] [address] [place] [address] Referral ID Status Reason Start Date Expiration Date Visits Requested Visits Authorized [id number] Authorized Specialty Services Required 3 [phone] Question Answer Referral Priority Within 10 days (routine) Where should this appointment be scheduled? External - [facility] Which condition are you referring this patient for? Toenail Removal Comments Pt has a Loose toenail and callouses on feet Reason for Visit * Reason Onset Date Comments Referral 08/15/2023 Podiatry Encounter Details Date Type Department Care Team (Late st Contact Info) Description 08/15/2023 Telephone Family Medicine [address] [place] [phone] Arabella Maher MD [address] [place] [address] [place] [address] Referral (Podiatry ) Allergies Active Allergy Reactions [...] top 454 g 0 11/22/2021 Active Saline [place] 0.65 % Nasal Solution ([place]) Administer into nostril 1 [place] as needed for Congestion. 60 mL 5 [...] morning. 45 Tablet 3 07/31/2023 Active Ipratropium [place] HFA 17 MCG/ACT Inhalation Aerosol Solution (Atrovent HFA)Indications:[place] workers pneumoconiosis (HCC) INHALE TWO PUFFS BY [...] hypoxemia 04/08/2022 Overview: Wears 2 LPM via [place], DME: [facility] Chronic rhinitis 04/08/2022 Lung nodules [...] appointment. 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 documented in this encounter Plan of Treatment Upcoming Encounters Date Type Department Care Team (Late st Contact Info) Description 08/21/2023 11:00 AM EST Office Visit Cardiology, [facility] [address] [place] [address] Luh Garcia CRNP [address] [place] [address] 11/29/2023 2:20 PM EST Office Visit Dermatology [address] [place] [address] Dalila West PA-C [address] [place] [address] [place] [address] 12/21/2023 10:40 AM EDT Office Visit Family Medicine [address] [place] [phone] Claude Mata MD [address] [place] [address] [place] [address] 07/15/2024 10:00 AM EDT Nurse Only Ancillary [address] [place] [address] [place], Nurse Annual [address] [place] [address] Scheduled Referrals Name Type Priority Associated Diagnoses Orde r Schedule PODIATRY REFERRAL OP Referral Within 10 days (routine) Loose toenail Corns and callosities Ordered: 08/15/2023 Health Maintenance Due Date Last Done Comments CKD PHOS USE SMARTSET 81259 05/12/202305/02, 10/05/2020, 04/01/2020, Additional history exists COVID-19 Vaccine ( season) 2023 01/07/2022, 12/31/2020, 12/03/2020 DTaP,Tdap,and Td Vaccines (2 - Td or Tdap) 10/14/2023 10/14/2013, 07/22/2008 Albumin/Creatinine Ratio 02/15/2024 023, 04/07/2022, 10/05/2020, Additional history exists CKD HGB USE SMARTSET 62236 02/15/202402/14, 04/07/2022, 10/05/2020, Additional history exists Depression [...] patient or by statute hierarchy) Care Teams Tablet Machine Operator Relationship Specialty Start Date End Date Arabella Maher MD [address] [place] [address] [place] [address] PCP - General Family Medicine 05/09/18 documented as of this encounter
--- OUTSIDE RECORDS SUMMARY | 2023-09-09 22:14 | External Medical Summary | Summary of Care ---
Author Name Unknown Organization [facility] Address [address] [place] [address] Phone [phone] Care Team Providers Care Sorting Cows Worker Name Role Phone Ben Cisneros MD Primary Care Provider Encounter Details Date Type Department Care Team (Late st Contact Info) Description 04/17/2023 Population Health External Data Unspecified Department Allergies Active Allergy Reactions Criticality Noted Date Comments No Known Drug Allergy 10/12/2000 documented as of this encounter (statuses as of 08/14/2023) Medications Medication Sig Dispensed Refills Start Date [...] top 454 g 0 11/22/2021 Active Saline [place] 0.65 % Nasal Solution ([place]) Administer into nostril 1 [place] as needed for Congestion. 60 mL 5 04/08/2022 Active Fluticasone Propionate 50 MCG/ACT Nasal Suspension (Flonase) Administer 2 Sprays into nostril in the morning. 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 DO NOT CRUSH, CUT OR CHEW 100 Tablet 1 03/13/2023 03/12/2024 Active Citalopram Hydrobromide 10 MG Oral Tablet (CeleXA)Indications :SOLEDAD (generalized anxiety disorder) TAKE ONE TABLET BY MOUTH EVERY MORNING. 100 Tablet 1 03/06/2023 03/05/2024 Active Famotidine 20 MG Oral Tablet (Pepcid)Indications [...] hours as needed for Cough. 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 GENERAL OSTEOARTHROSIS INSOMNIA W SLEEP APNEA [place] workers pneumoconiosis Restrictive lung disease documented as of this encounter (statuses as of 08/14/2023) Resolved Problems Problem Noted Date Diagnosed Date [...] Rotator cuff rupture 05/22/2003 018 LOC PRIM [id number] 05/22/200310/02 Prepatellar bursitis 05/22/2003 015 Inflammation of sacroiliac joint 10/12/2001 10/16/2014 LOC PRIM OSTEOARTH-HAND 10/12/200110/02 Respiratory abnormality 07/04 Overview: ICD-10 update of inactive term Umbilical hernia 05/10/2018 Insomnia 10/16/2014 Overview: ICD-10 update of inactive term COPD, severity to be determined 07/07/2011 Allergic rhinitis 05/10/2018 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 07/04 Bilateral carpal tunnel syndrome 05/10/2018 CKD (chronic kidney disease), stage III 12/11/2018 Benign hypertension with CKD (chronic kidney disease) stage III 02/11/2021 Overview: Per CKD protocol documented as of this encounter (statuses as of 08/14/2023) Immunizations Name Administration Dates Next Due COVID-19 mRNA, LNP-s, No Pre serve, 2-Dose Series (Moderna) 01/07/2022,12/31/2020,12/03/2020 Pneumococcal Conjugate Vacc, 13 Valent (Prevnar) 05/02/2015 SEASONAL INFLUENZA, PF, 6 M & Above, IM , (FLULAVAL or FLUZONE) 06/28/2018,07/13/2017 Season Influenza, Quad, PF, Adjuvanted, 65+ Yrs, IM (FLUAD) 07/22/2020 Seasonal Influenza, Quadriva lent Hd (Fluzone Hd) 07/08/2022,06/17/2021 Seasonal Influenza, Quadriva lent, No Preserve, IM [...] on file documented as of this encounter Plan of Treatment Upcoming Encounters Date Type Department Care Team (Late st Contact Info) Description 08/15/2023 9:00 AM EST Cardiac Studies Cardiac Studies [address] [place] [address] 08/21/2023 11:00 AM EST Office Visit Cardiology, [facility] [address] [place] [address] Luh Garcia CRNP [address] [place] [address] 11/29/2023 2:20 PM EST Office Visit Dermatology [address] [place] [address] Dalila West PA-C [address] [place] [address] [place] [address] 12/21/2023 10:40 AM EDT Office Visit Family Medicine [address] [place] [phone] Claude Mata MD [address] [place] [address] [place] [address] 07/15/2024 10:00 AM EDT Nurse Only Ancillary [address] [place] [address] [place], Nurse Annual [address] [place] [address] Health Maintenance Due Date Last Done Comments CKD PHOS USE SMARTSET 14692 05/12/202305/02, 10/05/2020, 04/01/2020, Additional history exists COVID-19 Vaccine ( season) 2023 01/07/2022, 12/31/2020, 12/03/2020 DTaP,Tdap,and Td Vaccines (2 - Td or Tdap) 10/14/2023 10/14/2013, 07/22/2008 Albumin/Creatinine Ratio 02/15/2024 023, 04/07/2022, 10/05/2020, Additional history exists CKD HGB USE SMARTSET 03187 02/15/202402/143, 04/07/2022, 10/05/2020, Additional history exists Depression Screening [...] patient or by statute hierarchy) Care Teams Sorting Cows Worker Relationship Specialty Start Date End Date Ben Cisneros MD [address] [place] [address] [place] [address] PCP - General Family Medicine 05/09/18 documented as of this encounter
--- OUTSIDE RECORDS SUMMARY | 2023-09-09 22:14 | External Medical Summary | Summary of Care ---
Author Name Unknown Organization [facility] Address [address] [place] [address] Phone [phone] Care Team Providers Care Horse Show Manager Name Role Phone Ben Cisneros MD Primary Care Provider Reason for Visit * Reason Onset Date Comments Referral 08/15/2023 Podiatry Encounter Details Date Type Department Care Team (Late st Contact Info) Description 08/15/2023 Telephone Family Medicine [address] [phone] Ben Cisneros MD [address] [place] [address] [place] [address] Referral (Podiatry ) Allergies Active Allergy Reactions [...] top 454 g 0 11/22/2021 Active Saline [place] 0.65 % Nasal Solution ([place]) Administer into nostril 1 [place] as needed for Congestion. 60 mL 5 [...] morning. 45 Tablet 3 07/31/2023 Active Ipratropium [place] HFA 17 MCG/ACT Inhalation Aerosol Solution (Atrovent HFA)Indications:[place] workers pneumoconiosis (HCC) INHALE TWO PUFFS BY [...] Overview: W[place] 2 LPM via [place], DME: [facility] Chronic rhinitis 04/08/2022 Lung [...] appointment. 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 documented in this encounter Plan of Treatment Upcoming Encounters Date Type Department Care Team (Late st Contact Info) Description 08/21/2023 11:00 AM EST Office Visit Cardiology, [address] [place] [address] Luh Garcia, COMMUNITY HEALTH OUTREACH WORKER [address] [place] [address] 11/29/2023 2:20 PM EST Office Visit Dermatology [address] [place] [address] Dalila West PA-C [address] [place] [address] [place] [address] 12/21/2023 10:40 AM EDT Office Visit Family Medicine [address] [place] [phone] Claude Mata MD [address] [place] [address] [place] [address] 07/15/2024 10:00 AM EDT Nurse Only Ancillary [address] [place] [address] [place], Nurse Annual Wellness [address] [place] [address] [place] [address] Health Maintenance Due Date Last Done Comments CKD PHOS USE SMARTSET 34950 05/12/202305/02, 10/05/2020, 04/01/2020, Additional history exists COVID-19 Vaccine ( season) 2023 01/07/2022, 12/31/2020, 12/03/2020 DTaP,Tdap,and Td Vaccines (2 - Td or Tdap) 10/14/2023 10/14/2013, 07/22/2008 Albumin/Creatinine Ratio 02/15/2024 023, 04/07/2022, 10/05/2020, Additional history exists CKD HGB USE SMARTSET 41683 02/15/202402/14, 04/07/2022, 10/05/2020, Additional history exists Depression [...] Agents on File Name Relationship Healthcare Agent [facility] Communication Susu Quezada Adult Child Health Care Repr esentative (appointed verbally by patient or by statute hierarchy) Care Teams Horse Show Manager Relationship Specialty Start Date End Date Ben Cisneros MD [address] [place] [address] [place] [address] PCP - General Family Medicine 05/09/18 documented as of this encounter
--- OUTSIDE RECORDS SUMMARY | 2023-09-09 22:14 | External Medical Summary | Summary of Care ---
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 60 mL 5 [...] morning. 30 Tablet 3 05/11/2023 Active Ipratropium [place] HFA 17 MCG/ACT Inhalation Aerosol Solution (Atrovent Hfa)Indications:[place] workers pneumoconiosis (HCC) INHALE TWO PUFFS BY MOUTH FOUR TIMES A DAY - MORNING, NOON, EVENING, AND BEFORE BEDTIME. 38.7 g 0 05/19/2023 Active Carvedilol 12.5 MG Oral Tablet (Coreg)Indications:P rimary hypertension,Diastol ic dysfunction Take 1 Tablet by mouth 2 times a day with morning and evening meals. 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 GENERAL OSTEOARTHROSIS INSOMNIA W SLEEP APNEA [place] workers pneumoconiosis Restrictive lung disease documented as of this encounter (statuses as of 07/25/2023) Resolved Problems Problem Noted Date Diagnosed Date [...] Rotator cuff rupture 05/22/2003 018 LOC PRIM [id number] 05/22/200310/02 Prepatellar bursitis 05/22/2003 015 Inflammation of sacroiliac joint 10/12/2001 10/16/2014 LOC PRIM OSTEOARTH-HAND 10/12/200110/02 Respiratory abnormality 07/04 Overview: ICD-10 update of inactive term Umbilical hernia 05/10/2018 Insomnia 10/16/2014 Overview: ICD-10 update of inactive term COPD, severity to be determined 07/07/2011 Allergic rhinitis 05/10/2018 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 Never true 02/02/20 Within the past 12 months, t he [...] on file documented as of this encounter Progress Notes * Jeanie Estrada RN - 07/25/2023 8:17 AM EDT [employer] Progress Note: Date: 07/25/23 Assigned Patient Tier: 3 Connected with patient via telephone. Verified patient name/. Advised patient that call is beingrecorded for quality and training purposes. Assessment: Pt. noted the following: [facility] trigger. Weight down 20# overnight. Patient reports Les Adamsonkj coming to clean his carpets today. Yesterday he had to move his scales. When he did, he touched something on the side, they lit up, and went back to all zeros. Not sure what happened. Had patient re-weigh, weight was even lower. Told him after carpets done, and scale back in its regular spot, will see what weight is then, if still off, will contact [facility] to do a re-calibration. Reports he is eating more. Had been trying to eat servings like he received in the hospital - but finally decided to heck with that, and went back to eating his normal. No extra weight gain over the past week, staying around the 172 lbs igor. Patient reporting occasional brief hot flashes, last less than a minute. Occurs with activity. No longer getting the dizzy spells with activity. Denies increased shortness of breath or edema/swelling. Wearing his nasal oxygen every night. Continues to use his flutter valve daily. If coughs, it is just one cough to clear throat. Is expectorating thick, sticky, white mucus. More so after eating. Decreased walking/activity with colder temperatures. Trying to keep active by walking more inside his home, and performing some exercises such as "push ups" at the sink, etc. Patient has alternate heat source besides his central air. Has a wood burner downstairs he will utilize in cold weather. No longer chops his own wood, but already had a load delivered for this upcoming winter. Aching all over. Also with itchy skin - more so since having to use heat. Discussed use of a humidifier, avoiding deodorant soaps that dry the skin. Patient states he uses Dove soap. Reports the itching is mostly his back, and he is unable to reach that to use any kind of lotions/creams. Confirmed upcoming appointments with nutrition, for echocardiogram, and with cardiology. Patient plans to keep as scheduled. Did you receive an alert for an annual wellness visit? No Is this call for a hospital, correction or rehab facility discharge to home? No Medication Reconciliation: Medication Reconciliation completed: no. Confirmed oxygen use, and flutter device use. Reports taking all medications as ordered. Review of Current goals: Discussed the following patient-centered CM goals with the patient during this discussion: -HEART FAILURE: Achieve successful management of heart failure. -Status: On Track Performing daily dry weights using [facility] scales. Staying around the 172 lb igor. Denies increase in SOB or edema/swelling. No longer having dizziness. . -RESPIRATORY: Patient/caregiver will monitor for exacerbation of respiratory condition and treat accordingly -Status: On Track No exacerbations of shortness of breath or cough. Continues with use of nighttimeoxygen, and daily use of flutter valve. Expectorates thick, sticky, white mucus - mostly after eating. If coughs, usually only one cough to bring up the mucus. -SAFETY: Prevent falls or injuries -Status: On Track No falls or injuries reported. No further dizziness. Trying to keep active. Walksoutdoors, weather permitting. If bad weather, increased walking indoors and tries to do some exercises such as "push ups" at the sink. COPD Patient: No CHF Patient: YES Scale: YES, Current Weight: usual weight is around 172 lbs, Swelling: denies CM Plan: Reviewed 3 Red Flags with patient. Advised to call CM with any of the following: Red Flag 1: increased shortness of breath/cough/wheezing/green sputum, Red Flag 2: increased swelling/edema, sudden weight gain of 3 lbs overnight or 5 lbs in a week , or Red Flag 3: falls or injuries Remote Patient Monitoring: Device Currently in place: [facility] scales. Reviewed readings. Interventions, if needed: today's weight inaccurate, showing a 20 lbs loss, as scales were moved yesterday. If still off after replaced in their normal spot - may need to contact [facility] to have scale re-calibrated. Plan for Future Contacts: Plan to follow up within 1 month to check progress on the following goals/needs - hot flashes? Shortness of breath? Edema/swelling? Expectorating? Cough? Dizziness? Itching? Aches/pains? Walking outside/inside? Appointments kept? Did you find your living will, medical power of employment law attorney papers? Can you bring in to an appointment to be scanned into your chart?. Planned contacts from the following parties will occur this week: N/A as additional contacts per workflow. Advancement/Closure Plan: Keep patient at current Tier with reassessment per workflow. Patient provided CM contact information and encouraged to call with any changes in condition. SNP Member? No PCP Notified of enrollment in CM/HM program: Yes, previously Is Provider in agreement with POC? Yes Jeanie Estrada RN Outpatient Case Management documented in this encounter Plan of Treatment Upcoming Encounters Date Type Department Care Team (Late st Contact Info) Description 08/03/2023 11:00 AM EDT Telemedicine [facility] [address] [place] [address] Kelly Peraza RDN [address] [place] [address] 08/15/2023 9:00 AM EST Cardiac Studies Cardiac Studies [address] [place] [address] 08/21/2023 11:00 AM EST Office Visit Cardiology, [facility] [place] [address] [place] [address] Luh Garcia CRNP [address] [place] [address] 11/29/2023 2:20 PM EST Office Visit Dermatology [address] [place] [address] Dalila West PA-C [address] [place] [address] [place] [address] 12/21/2023 10:40 AM EDT Office Visit Family Medicine [address] [place] [phone] Claude Mata MD [address] [place] [address] [place] [address] 07/15/2024 10:00 AM EDT Nurse Only Ancillary [address] [place] [address] Siriey, Nurse Annual Wellness [address] [place] [address] [place] [address] Health Maintenance Due Date Last Done Comments CKD PHOS USE SMARTSET 50993 05/12/202305/02, 10/05/2020, 04/01/2020, Additional history exists COVID-19 Vaccine ( season) 2023 01/07/2022, 12/31/2020, 12/03/2020 DTaP,Tdap,and Td Vaccines (2 - Td or Tdap) 10/14/2023 10/14/2013, 07/22/2008 Albumin/Creatinine Ratio 02/15/2024 023, 04/07/2022, 10/05/2020, Additional history exists CKD HGB USE SMARTSET 31167 02/15/202402/14, 04/07/2022, 10/05/2020, Additional history exists Depression [...] as of this encounter Visit Diagnoses Diagnosis Medical home patient encounter- Primary Other specified examination Chronic systolic heart failure (HCC) Chronic systolic heart failure 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
--- OUTSIDE RECORDS SUMMARY | 2023-09-09 22:14 | External Medical Summary | Summary of Care ---
Author Name Unknown Organization [facility] Address [address] [place] [address] Phone [phone] Care Team Providers Care Director Distribution Name Role Phone Ben Cisneros MD Primary Care Provider [phone] Reason for Visit * Reason Onset Date Comments Medication Refill 07/30/2023 Encounter Details Date Type Department Care Team (Late st Contact Info) Description 07/30/2023 Refill Cardiology, [facility] [address] [facility] [place] [phone] Anna Calderon CRNP [address] [facility] [place] [address] HFrEF (heart failure with reduced ejection fraction) (FORMERLY [facility])* Allergies Active Allergy Reactions Criticality Noted Date Comments No Known Drug Allergy 10/12/2000 documented as of this encounter (statuses as of 07/31/2023) Medications Medication Sig Dispensed Refills Start Date [...] top 454 g 0 11/22/2021 Active Saline [place] 0.65 % Nasal Solution ([place]) Administer into nostril 1 [place] as needed for Congestion. 60 mL 5 [...] the morning. 90 Tablet 3 05/11/2023 Active Ipratropium [place] HFA 17 MCG/ACT Inhalation Aerosol Solution (Atrovent Hfa)Indications:[place] workers pneumoconiosis (HCC) INHALE TWO PUFFS BY MOUTH FOUR TIMES A DAY - MORNING, NOON, EVENING, AND BEFORE BEDTIME. 38.7 g 0 05/19/2023 Active Carvedilol 12.5 MG Oral Tablet (Coreg)Indications: Primary hypertension,Diasto lic dysfunction Take 1 Tablet by mouth 2 times a day with morning and evening meals. 200 Tablet 1 07/18/2023 Active Torsemide 100 MG Oral Tablet (Demadex)Indication s:HFrEF (heart failure with reduced ejection fraction) (HCC) Take 0.5 Tablets by mouth in the morning. 45 Tablet 3 07/31/2023 Active Torsemide 100 MG Oral Tablet (Demadex) Take 0.5 Tablets by mouth in the morning. 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 GENERAL OSTEOARTHROSIS INSOMNIA W SLEEP APNEA [place] workers pneumoconiosis Restrictive lung disease documented as of this encounter (statuses as of 07/31/2023) Resolved Problems Problem Noted Date Diagnosed Date [...] Rotator cuff rupture 05/22/2003 018 LOC PRIM [id number] 05/22/200310/02 Prepatellar bursitis 05/22/2003 015 Inflammation of sacroiliac joint 10/12/2001 10/16/2014 LOC PRIM OSTEOARTH-HAND 10/12/200110/02 Respiratory abnormality 07/04 Overview: ICD-10 update of inactive term Umbilical hernia 05/10/2018 Insomnia 10/16/2014 Overview: ICD-10 update of inactive term COPD, severity to be determined 07/07/2011 Allergic rhinitis 05/10/2018 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 Authorizing Provider: ANNA CALDERON * Telephone Encounter - Radha Aceves COT - 07/31/2023 3:29 PM EDTPending Prescriptions: Disp Refills Torsemide 100 MG Oral Tablet (Demadex) 45 Tab*3 Sig: Take 0.5 Tablets by mouth in the morning. * Telephone Encounter - Radha Aceves COT - 07/31/2023 3:29 PM EDT Did you pend patient's preferred pharmacy and medication before forwarding?yes Pharmacy: [facility] Pending Prescriptions: Disp Refills Torsemide 100 MG Oral Tablet (Demadex) 45 Tab*3 Sig: Take 0.5 Tablets by mouth in the morning. Last Visit: 05/11/2023 (in office), Visit date not found (telemedicine) Next Visit: 08/21/2023 If no future appointments scheduled, and last appointment is greater than a year ago, please schedule patient for a follow-up appointment Last date the medication was ordered: 05-11-2023 Is this request for a controlled substance?No Urine Drug Screen:No results found for this or any previous visit. Patient Phone Numbers Labs: Lab Results Component Value Date/Time CREAT 1.9 (H) 06/12/2023 09:33 AM CREAT 1.5 (H) 10/05/2020 01:11 PM POTASSIUM 4.3 06/12/2023 09:33 AM POTASSIUM 4.8 10/05/2020 01:11 PM TSH 3.58 05/10/2018 08:37 AM LDLCALC 116 04/07/2022 12:40 PM LDLCALC 128 04/01/2020 08:00 AM LDLDIRECT NOT APPLICABLE 04/01/2020 08:00 AM ALT 26 02/14/2023 09:30 AM ALT 33 04/01/2020 08:00 AM HGBA1C 5.6 04/07/2022 12:40 PM HGBA1C 5.7 01/04/2007 08:40 AM documented in this encounter Plan of Treatment Upcoming Encounters Date Type Department Care Team (Late st Contact Info) Description 08/15/2023 9:00 AM EST Cardiac Studies Cardiac Studies [address] [place] [address] 08/21/2023 11:00 AM EST Office Visit Cardiology, [facility] [address] [place] [address] Anna Calderon CRNP [address] [place] [address] 11/29/2023 2:20 PM EST Office Visit Dermatology [address] [place] [address] Dalila West PA-C [address] [place] [address] [place] [address] 12/21/2023 10:40 AM EDT Office Visit Family Medicine [address] [place] [phone] Claude Mata MD [address] [place] [address] [place] [address] 07/15/2024 10:00 AM EDT Nurse Only Ancillary [address] [place] [address] [place], Nurse Annual Wellness [address] [place] [address] [place] [address] Health Maintenance Due Date Last Done Comments CKD PHOS USE SMARTSET 37586 05/12/202305/02, 10/05/2020, 04/01/2020, Additional history exists COVID-19 Vaccine (24 season) 2023 01/07/2022, 12/31/2020, 12/03/2020 DTaP,Tdap,and Td Vaccines (2 - Td or Tdap) 10/14/2023 10/14/2013, 07/22/2008 Albumin/Creatinine Ratio 02/15/2024 023, 04/07/2022, 10/05/2020, Additional history exists CKD HGB USE SMARTSET 55521 02/15/202402/14, 04/07/2022, 10/05/2020, Additional history exists Depression [...] failure with reduced ejection fraction) (HCC)- Primary documented in this encounter Advance Directives Latest Code Status on File Code Status Date Activated Date Inactivated Comments Full Code 06/26/2019 12:28 PM 06/26/2019 5:13 PM This order reflects the patients wishes and were consensually agreed upon. Healthcare Agents on File Name Relationship Healthcare Agent [facility] p Communication Susu Quezada Adult Child Health Care Repr esentative (appointed verbally by patient or by statute hierarchy) Care Teams Director Distribution Relationship Specialty Start Date End Date Ben Cisneros MD [address] [place] [address] [place] [address] PCP - General Family Medicine 05/09/18 documented as of this encounter
--- OUTSIDE RECORDS SUMMARY | 2023-09-09 22:14 | External Medical Summary | Summary of Care ---
Author Name Unknown Organization [facility] Address [address] [place] [address] Phone [phone] Care Team Providers Care Silk Printer Name Role Phone Ben Maher MD Primary Care Provider Reason for Visit * Reason Comments Medication Refill Encounter Details Date Type Department Care Team Description 07/18/2023 Refill Family Medicine [address] [phone] Ben Maher MD [address] [place] [address] [place] [address] Primary hypertension; Diastolic dysfunction Allergies Active Allergy Reactions Severity Noted Date Comments No Known Drug Allergy 10/12/2000 documented as of this encounter (statuses as of 07/18/2023) Medications Medication Sig Dispensed Refills Start Date [...] top 454 g 0 11/22/2021 Active Saline [place] 0.65 % Nasal Solution ([place]) Administer into nostril 1 [place] as needed for Congestion. 60 mL 5 [...] morning. 30 Tablet 3 05/11/2023 Active Ipratropium [place] HFA 17 MCG/ACT Inhalation Aerosol Solution (Atrovent Hfa)Indications:[place] workers pneumoconiosis (HCC) INHALE TWO PUFFS BY MOUTH FOUR TIMES A DAY - MORNING, NOON, EVENING, AND BEFORE BEDTIME. 38.7 g 0 05/19/2023 Active Carvedilol 12.5 MG Oral Tablet (Coreg)Indications: Primary hypertension,Diasto lic dysfunction Take 1 Tablet by mouth 2 times a day with morning and evening meals. 200 Tablet 1 07/18/2023 Active Carvedilol 12.5 MG Oral Tablet (Coreg)Indications: Primary hypertension,Diasto lic dysfunction Take 1 Tablet by mouth 2 times a day with morning and evening meals. 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 GENERAL OSTEOARTHROSIS INSOMNIA W SLEEP APNEA [place] workers pneumoconiosis Restrictive lung disease documented as of this encounter (statuses as of 07/18/2023) Resolved Problems Problem Noted Date Resolved Date [...] Rotator cuff rupture 05/22/2003 05/10/2018 LOC PRIM [id number] 05/22/2003 10/16/19 15 Prepatellar bursitis 05/22/2003 10/16/2014 Inflammation of sacroiliac joint 10/12/2001 10/16/2014 LOC PRIM OSTEOARTH-HAND 10/12/2001 10/16/19 15 Respiratory abnormality 07/31/20 09 Overview: ICD-10 update of inactive term Umbilical hernia 05/10/2018 Insomnia 10/16/2014 Overview: ICD-10 update of inactive term COPD, severity to be determined 07/07/2011 Allergic rhinitis 05/10/2018 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 07/31/20 09 Bilateral carpal tunnel syndrome 05/10/2018 CKD (chronic kidney disease), stage III 12/11/2018 Benign hypertension with CKD (chronic kidney disease) stage III 02/11/2021 Overview: Per CKD protocol documented as of this encounter (statuses as of 07/18/2023) Immunizations Name Administration Dates Next Due COVID-19 [...] encounter Miscellaneous Notes * Telephone Encounter - Jose Esposito RPh - 07/18/2023 2:53 PM EDTSigned Prescriptions: Disp Refills Carvedilol 12.5 MG Oral Tablet (Coreg) 200 Ta*1 Sig: Take 1 Tablet by mouth 2 times a day with morning and evening meals.Authorizing Provider: BEN MAHER User: JOSE ESPOSITO documented in this encounter Plan of Treatment Upcoming Encounters Date Type Specialty Care Team Description 08/03/2023 Telemedicine Nutrition Services Kelly Peraza RDN [address] [place] [address] 08/15/2023 Cardiac Studies Cardiac Studies 08/21/2023 Office Visit Cardiology Luh Garcia CRNP [address] [place] [address] 11/29/2023 Office Visit Dermatology Dalila West PA-C [address] [place] [address] [place] [address] 12/21/2023 Office Visit Family Medicine Claude Mata MD [address] [place] [address] [place] [address] 07/15/2024 Nurse Only Ancillary [place], Nurse Annual Wellness [address] [place] [address] [place] [address] Health Maintenance Due Date Last Done Comments CKD PHOS USE SMARTSET 53892 05/12/202305/02, 10/05/2020, 04/01/2020, Additional history exists COVID-19 Vaccine ( season) 2023 01/07/2022, 12/31/2020, 12/03/2020 DTaP,Tdap,and Td Vaccines (2 - Td or Tdap) 10/14/2023 10/14/2013, 07/22/2008 Albumin/Creatinine Ratio 02/15/2024 023, 04/07/2022, 10/05/2020, Additional history exists CKD HGB USE SMARTSET 14265 02/15/202402/14, 04/07/2022, 10/05/2020, Additional history exists Depression [...] as of this encounter Visit Diagnoses Diagnosis Primary hypertension Unspecified essential hypertension Diastolic dysfunction Heart disease, unspecified documented in this encounter Advance Directives Latest [...] patient or by statute hierarchy) Care Teams Silk Printer Relationship Specialty Start Date End Date Ben Maher MD [address] [place] [address] [place] [address] PCP - General Family Medicine 05/09/18 documented as of this encounter
--- OUTSIDE RECORDS SUMMARY | 2023-09-09 22:14 | External Medical Summary | Summary of Care ---
Author Name Unknown Organization [facility] Address [address] [place] [address] Phone [phone] Care Team Providers Care Plan Consultant Name Role Phone Ben Cisneros MD Primary Care Provider Reason for Visit * Reason Onset Date Comments Referral 08/15/2023 Podiatry Encounter Details Date Type Department Care Team (Late st Contact Info) Description 08/15/2023 Telephone Family Medicine [address] [phone] Ben Cisneros MD [address] [place] [address] [place] [address] Referral (Podiatry ) Allergies Active Allergy Reactions [...] top 454 g 0 11/22/2021 Active Saline [place] 0.65 % Nasal Solution ([place]) Administer into nostril 1 [place] as needed for Congestion. 60 mL 5 [...] morning. 45 Tablet 3 07/31/2023 Active Ipratropium [place] HFA 17 MCG/ACT Inhalation Aerosol Solution (Atrovent HFA)Indications:[place] workers pneumoconiosis (HCC) INHALE TWO PUFFS BY [...] hypoxemia 04/08/2022 Overview: Wears 2 LPM via [place], DME: [facility] Chronic rhinitis 04/08/2022 Lung nodules 04/08/2022 [...] appointment. 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 documented in this encounter Plan of Treatment Upcoming Encounters Date Type Department Care Team (Late st Contact Info) Description 08/21/2023 11:00 AM EST [facility] [place] [address] Luh Garcia CRNP [address] [place] [address] 11/29/2023 2:20 PM EST Office Visit Dermatology [address] [place] [address] Dalila West PA-C [address] [place] [address] [place] [address] 12/21/2023 10:40 AM EDT Office Visit Family Medicine [address] [place] [phone] Claude Mata MD [address] [place] [address] [place] [address] 07/15/2024 10:00 AM EDT Nurse Only Ancillary [address] [place] [address] [place], Nurse Annual Wellness [address] [place] [address] [place] [address] Health Maintenance Due Date Last Done Comments CKD PHOS USE SMARTSET 16226 05/12/202305/02, 10/05/2020, 04/01/2020, Additional history exists COVID-19 Vaccine ( season) 2023 01/07/2022, 12/31/2020, 12/03/2020 DTaP,Tdap,and Td Vaccines (2 - Td or Tdap) 10/14/2023 10/14/2013, 07/22/2008 Albumin/Creatinine Ratio 02/15/2024 023, 04/07/2022, 10/05/2020, Additional history exists CKD HGB USE SMARTSET 39260 02/15/202402/14, 04/07/2022, 10/05/2020, Additional history exists Depression [...] Agents on File Name Relationship Healthcare Agent Relationsin p Communication Susu Quezada Adult Child Health Care Repr esentative (appointed verbally by patient or by statute hierarchy) Care Teams Plan Consultant Relationship Specialty Start Date End Date Ben Cisneros MD [address] [place] [address] [place] [phone] PCP - General Family Medicine 05/09/18 documented as of this encounter
--- OUTSIDE RECORDS SUMMARY | 2023-09-09 22:14 | External Medical Summary | Summary of Care ---
Author Name Unknown Organization [facility] Address [address] [place] [address] Phone [phone] Care Team Providers Care Biochemical Engineer Name Role Phone Ben Cisneros MD Primary Care Provider Reason for Visit * Reason Onset Date Comments Advice 07/12/2023 Call into [facility] for Meals on Wheels Encounter Details Date Type Department Care Team Description 07/12/2023 Telephone Family Medicine [address] [phone] Ben Cisneros MD [address] [place] [address] [place] [id number] Advice (Call into [facility] for Meals on ... Allergies Active Allergy Reactions Severity Noted Date Comments No Known Drug Allergy 10/12/2000 documented as of this encounter (statuses as of 07/12/2023) Medications Medication Sig Dispensed Refills Start Date [...] top 454 g 0 11/22/2021 Active Saline [place] 0.65 % Nasal Solution ([place]) Administer into nostril 1 [place] as needed for Congestion. 60 mL 5 [...] morning. 30 Tablet 3 05/11/2023 Active Ipratropium [place] HFA 17 MCG/ACT Inhalation Aerosol Solution (Atrovent Hfa)Indications:[place] workers pneumoconiosis (HCC) INHALE TWO PUFFS BY MOUTH FOUR TIMES A DAY - MORNING, NOON, EVENING, AND BEFORE BEDTIME. 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 GENERAL OSTEOARTHROSIS INSOMNIA W SLEEP APNEA [place] workers pneumoconiosis Restrictive lung disease documented as of this encounter (statuses as of 07/12/2023) Resolved Problems Problem Noted Date Resolved Date [...] Rotator cuff rupture 05/22/2003 05/10/2018 LOC PRIM [id number] 05/22/2003 10/16/19 15 Prepatellar bursitis 05/22/2003 10/16/2014 Inflammation of sacroiliac joint 10/12/2001 10/16/2014 LOC PRIM OSTEOARTH-HAND 10/12/2001 10/16/19 15 Respiratory abnormality 07/31/20 09 Overview: ICD-10 update of inactive term Umbilical hernia 05/10/2018 Insomnia 10/16/2014 Overview: ICD-10 update of inactive term COPD, severity to be determined 07/07/2011 Allergic rhinitis 05/10/2018 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 Unfortunately they don't know how long that will be. Patient has been offered other options and is able to cook for himself. Reason for Call: Advice (Call into [facility] for Meals on Wheels) Contact: In Clinic Contact Type: Advice Outcome: see above Face to face time spent with Patient (minutes): 10 Total Time including non face to face (minutes): 20 * Telephone Encounter - Yasmine Christy RN - 07/12/2023 12:20 PM EDT Patient seen for annual wellness visit 07/12/2023 he was interested in Meals on Wheels, patient washospitalized twice in 03/2023 and still struggling with weight loss and "no strength". Patient did say someone was looking into the program. I called and leave message for Mady to call me re the waitlist for Meals on Wheels. Patient states they told him he would not hear for approx one yr. Reason for Call: Advice Contact: In Clinic Contact Type: Care Coordination Outcome: see note Face to face time spent with Patient (minutes): 10 Total Time including non face to face (minutes): 10 documented in this encounter Plan of Treatment Upcoming Encounters Date Type Specialty Care Team Description 08/03/2023 Telemedicine Nutrition Services Kelly Peraza, BARBARAN [address] [place] [address] 08/15/2023 Cardiac Studies Cardiac Studies 08/21/2023 Office Visit Cardiology Luh Garcia CRNP [address] [place] [address] 11/29/2023 Office Visit Dermatology Dalila West PA-C [address] [place] [address] [place] [address] 12/21/2023 Office Visit Family Medicine Claude Mata MD [address] [place] [address] [place] [address] 07/15/2024 Nurse Only Ancillary Rubina, Nurse Annual Wellness [address] [place] [address] [place] [address] Health Maintenance Due Date Last Done Comments CKD PHOS USE SMARTSET 83313 05/12/202305/02, 10/05/2020, 04/01/2020, Additional history exists COVID-19 Vaccine ( season) 2023 01/07/2022, 12/31/2020, 12/03/2020 Depression Screening 07/08/2023 07/12/2023 DTaP,Tdap,and Td Vaccines (2 - Td or Tdap) 10/14/2023 10/14/2013, 07/22/2008 Albumin/Creatinine Ratio 02/15/2024 023, 04/07/2022, 10/05/2020, Additional history exists CKD HGB USE SMARTSET 10476 02/15/202402/14, 04/07/2022, 10/05/2020, Additional history exists Pneumococcal Vaccine: 65+ Years Completed 05/02/2015, 10/08/2002 [...] patient or by statute hierarchy) Care Teams Biochemical Engineer Relationship Specialty Start Date End Date Ben Cisneros MD [address] [place] [address] [place] [address] PCP - General Family Medicine 05/09/18 documented as of this encounter
--- OUTSIDE RECORDS SUMMARY | 2023-09-09 22:14 | External Medical Summary | Summary of Care ---
Author Name Unknown Organization [facility] Address [address] [place] [address] Phone [phone] Care Team Providers Care Route Service Manager Name Role Phone Ben Maher MD Primary Care Provider Reason for Visit * Reason Comments Medication Refill Encounter Details Date Type Department Care Team (Late st Contact Info) Description 08/14/2023 Refill Family Medicine [address] [phone] Ben Maher MD [address] [place] [phone] [place] workers pneumoconiosis (HCC) Allergies Active Allergy Reactions Criticality Noted Date [...] top 454 g 0 11/22/2021 Active Saline [place] 0.65 % Nasal Solution ([place]) Administer into nostril 1 [place] as needed for Congestion. 60 mL 5 [...] morning. 45 Tablet 3 07/31/2023 Active Ipratropium [place] HFA 17 MCG/ACT Inhalation Aerosol Solution (Atrovent HFA)Indications:[place] workers pneumoconiosis (HCC) INHALE TWO PUFFS BY MOUTH FOUR TIMES A DAY - MORNING, NOON, EVENING, AND BEFORE BEDTIME. 38.7 g 1 08/14/2023 Active Ipratropium [place] HFA 17 MCG/ACT Inhalation Aerosol Solution (Atrovent Hfa)Indications:[place] workers pneumoconiosis (HCC) INHALE TWO PUFFS BY MOUTH FOUR TIMES A DAY - MORNING, NOON, EVENING, AND BEFORE BEDTIME. 38.7 g 0 05/19/2023 3 Discontinu ed(Refill) documented as of this [...] hypoxemia 04/08/2022 Overview: Wears 2 LPM via [place], DME: [facility] Chronic rhinitis 04/08/2022 Lung nodules 04/08/2022 [...] appointment. 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 07/04 Bilateral carpal tunnel syndrome 05/10/2018 CKD [...] encounter Miscellaneous Notes * Telephone Encounter - Sadia Grande [facility] - 08/14/2023 4:37 PM EST Signed Prescriptions: Disp Refills Ipratropium [place] HFA 17 MCG/ACT Inhalat*38.7 g 1 Sig: INHALE TWO PUFFS BY MOUTH FOUR TIMES A DAY - MORNING, NOON, EVENING, AND BEFORE BEDTIME.Authorizing Provider: BEN MAHER User: SADIA GRANDE documented in this encounter Plan of Treatment Upcoming Encounters Date Type Department Care Team (Late st Contact Info) Description 08/15/2023 9:00 AM EST Cardiac Studies Cardiac Studies [address] [place] [address] 08/21/2023 11:00 AM EST Office Visit Cardiology, [facility] [address] [place] [address] Luh Garcia CRNP [address] [place] [address] 11/29/2023 2:20 PM EST Office Visit Dermatology [address] [place] [address] Dalila West PA-C [address] [place] [address] [place] [address] 12/21/2023 10:40 AM EDT Office Visit Family Medicine [address] [place] [phone] Claude Mata MD [address] [place] [address] [place] [address] 07/15/2024 10:00 AM EDT Nurse Only Ancillary [address] [place] [address] [place], Nurse Annual Wellness [address] [place] [address] [place] [address] Health Maintenance Due Date Last Done Comments CKD PHOS USE SMARTSET 54889 05/12/202305/02, 10/05/2020, 04/01/2020, Additional history exists COVID-19 Vaccine (2022- season) 2023 01/07/2022, 12/31/2020, 12/03/2020 DTaP,Tdap,and Td Vaccines (2 - Td or Tdap) 10/14/2023 10/14/2013, 07/22/2008 Albumin/Creatinine Ratio 02/15/2024 023, 04/07/2022, 10/05/2020, Additional history exists CKD HGB USE SMARTSET 08302 02/15/202402/14, 04/07/2022, 10/05/2020, Additional history exists Depression [...] as of this encounter Visit Diagnoses Diagnosis [place] workers pneumoconiosis (HCC) [place] workers' pneumoconiosis documented in this encounter Advance Directives Latest Code Status on File Code Status Date Activated Date Inactivated Comments Full Code 06/26/2019 12:28 PM 06/26/2019 5:13 PM This order reflects the patients wishes and were consensually agreed upon. Healthcare Agents on File Name Relationship Healthcare Agent [facility] p Communication Susu Quezada Adult Child Health Care Repr esentative (appointed verbally by patient or by statute hierarchy) Care Teams Route Service Manager Relationship Specialty Start Date End Date Ben Maher MD [address] [place] [address] [place] [phone] PCP - General Family Medicine 05/09/18 documented as of this encounter
--- OUTSIDE RECORDS SUMMARY | 2023-09-09 22:15 | External Medical Summary ---
Author Name Unknown Address Unknown Organization K01:[facility] - [facility] [address] [place] [address] Laboratory Report Ordering Provider Test Date Status KVNG CASTILLO 06/12/2023 09:33:48 Final Observation Date Value Abnormality Reference (Units ) Status BUN 06/12/2023 09:33:48 37 Above high normal 6-20 (mg/dL) Final Creatinine 06/12/2023 09:33:48 1.9 Above high normal 0.6-1.2 (mg/dL) Final Glomerular filtration rate/1.73 sq M.predicted [Volume Rate/Area] in Serum, Plasma or Blood by Creatinine-based formula (CKD-EPI) 06/12/2023 09:33:48 33 Below low normal >=60 (mL/min) Final eGFR is calculated based on the CKD-EPI 2020 equation SODIUM 06/12/2023 09:33:48 137 135-146 (m mol/L) Final Potassium 06/12/2023 09:33:48 4.3 3.5-5.1 (m mol/L) Final Cl 06/12/2023 09:33:48 96 Below low normal 98- 107 (mmol/L) Final CO2 06/12/2023 09:33:48 27 22-32 (mmo l/L) Final Anion gap 06/12/2023 09:33:48 14 7-15 (mmol /L) Final Glucose 06/12/2023 09:33:48 167 Above high normal 70 -120 (mg/dL) Final Calcium 06/12/2023 09:33:48 9.6 8.4-10.2 ( mg/dL) Final Performing Location [facility] - [address] [place] [address]
--- OUTSIDE RECORDS SUMMARY | 2023-09-09 22:15 | External Medical Summary | Summary of Care ---
Author Name Unknown Organization [facility] Address [address] [facility] [place] [address] Phone [phone] Care Team Providers Care Manager Managed Care Name Role Phone Ben Cisneros MD Primary Care Provider Reason for Visit * Reason Onset Date Comments Follow Up 05/30/2023 Encounter Details Date Type Department Care Team Description 05/30/2023 Telephone Care Coordination [address] [place] [address] Mara Crystal [address] [place] [address] Follow Up Allergies Active Allergy Reactions Severity Noted Date Comments No Known Drug Allergy 10/12/2000 documented as of this encounter (statuses as of 05/30/2023) Medications Medication Sig Dispensed Refills Start Date End Date Status ASPIRIN 81 MG PO TABS one tab by mouth daily 0 0 12/11/2006 Active CENTRUM PO TABS 1 tablet a day 0 Activ e oxygen IN GAS Use 2 L/min(Oxygen) as directed at bedtime. 0 Active Loratadine 10 MG Oral Capsule Take 1 Capsule by mouth in the morning. 0 Active Vitamin B-12 100 MCG Oral Tablet (vitamin B-12) Take 1 Tablet by mouth in the morning. 0 Active Triamcinolone Acetonide 0.1 % External Ointment (Aristocort)Indicati ons:Contact dermatitis, unspecified contact dermatitis type, unspecified trigger apply to rash on lower legs 2 times daily with cerave cream on top 454 g 0 11/22/2021 Active Saline [place] 0.65 % Nasal Solution ([place]) Administer into nostril 1 [place] as needed for Congestion. 60 mL 5 [...] morning. 30 Tablet 3 05/11/2023 Active Ipratropium [place] HFA 17 MCG/ACT Inhalation Aerosol Solution (Atrovent Hfa)Indications:[place] workers pneumoconiosis (HCC) INHALE TWO PUFFS BY MOUTH FOUR TIMES A DAY - MORNING, NOON, EVENING, AND BEFORE BEDTIME. 38.7 g 0 05/19/2023 Active documented as of this encounter (statuses as of 05/30/2023) Active Problems Problem Noted Date Hospital discharge follow-up 04/10/2023 Chronic systolic heart failure 3 Interstitial pulmonary disease 3 Pleural effusion due to CHF (congestive heart failure) 04/10/2023 Medical home patient encounter 3 Nocturnal hypoxemia 04/08/2022 Overview: Wears 2 LPM via [place], DME: [facility] Chronic rhinitis 04/08/2022 Lung nodules 04/08/2022 Overview: 6 mm and less, stable since 2018, calcified and non-calcified History of tobacco use 04/08/2022 Overview: Quit 1960s Gastroesophageal reflux disease without esophagitis 08/18/2021 Benign hypertension with stage 3b chroni c kidney disease 04/12/2021 Overview: Per CKD protocol Chronic kidney disease, stage 3b 021 Overview: [...] appointment. GENERAL OSTEOARTHROSIS INSOMNIA W SLEEP APNEA [place] workers pneumoconiosis Restrictive lung disease documented as of this encounter (statuses as of 05/30/2023) Resolved Problems Problem Noted Date Resolved Date SOB (shortness of breath) 04/08/20222022 Chronic kidney disease, stage 3a 03/16/2021 04/15/2021 [...] Rotator cuff rupture 05/22/2003 05/10/2018 LOC PRIM [id number] 05/22/2003 10/16/19 15 Prepatellar bursitis 05/22/2003 10/16/2014 Inflammation of sacroiliac joint 10/12/2001 10/16/2014 LOC PRIM OSTEOARTH-HAND 10/12/2001 10/16/19 15 Respiratory abnormality 07/31/20 09 Overview: ICD-10 update of inactive term Umbilical hernia 05/10/2018 Insomnia 10/16/2014 Overview: ICD-10 update of inactive term COPD, severity to be determined 07/07/2011 Allergic rhinitis 05/10/2018 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 LEAD 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 07/31/20 09 Bilateral carpal tunnel syndrome 05/10/2018 CKD (chronic kidney disease), stage III 12/11/2018 Benign hypertension with CKD (chronic kidney disease) stage III 02/11/2021 Overview: Per CKD protocol documented as of this encounter (statuses as of 05/30/2023) Immunizations Name Administration Dates Next Due COVID-19 mRNA, LNP-s, No Pre serve, 2-Dose Series (Moderna) 01/07/2022,12/31/2020,12/03/2020 Pneumococcal Conjugate Vacc, 13 Valent (Prevnar) 05/02/2015 Season Influenza, Quad, PF, Adjuvanted, 65+ Yrs, IM (FLUAD) 07/22/2020 Seasonal Influenza, PF, 6 mo ns & Above, IM , (Flulaval) 06/28/2018,07/13/2017 Seasonal Influenza, Quadriva lent Hd (Fluzone Hd) [...] encounter Miscellaneous Notes * Telephone Encounter - Annette Ocampo [facility] - 05/30/2023 1:59 PM EDT Message to [facility] Anti-Hunger program administrator re: fresh food delivery. Awaiting reply. documented in this encounter Plan of Treatment Upcoming Encounters Date Type Specialty Care Team Description 06/12/2023 Laboratory Laboratory [address] [place] [address] 06/20/2023 Office Visit Family Medicine Ben Cisneros MD [address] [place] [address] [place] [address] 07/12/2023 Nurse Only Ancillary Rubina, Nurse Annual Wellness [address] [place] [address] [place] [address] 08/03/2023 Telemedicine Nutrition Services Kelly Peraza RDN [address] [place] [address] 08/15/2023 Cardiac Studies Cardiac Studies 08/21/2023 Office Visit Cardiology Luh Garcia CRNP [address] [place] [address] 11/29/2023 Office Visit Dermatology Dalila West PA-C [address] [place] [address] [place] [address] Health Maintenance Due Date Last Done Comments COVID-19 Vaccine (4 - Moderna series) 03/04/2022 01/07/2022, 12/31/2020, 12/03/2020 CKD PHOS USE SMARTSET 54307 05/12/202305/02, 10/05/2020, 04/01/2020, Additional history exists Influenza Vaccine (FLU shot) (#1) 2023 07/08/2022, 06/17/2021, 07/22/2020, Additional history exists Depression Screening, Annual for Pts 12 and Over 07/08/2023 07/08/2022 DTaP,Tdap,and Td Vaccines (2 - Td or Tdap) 10/14/2023 10/14/2013, 07/22/2008 Albumin/Creatinine Ratio 02/15/2024 023, 04/07/2022, 10/05/2020, Additional history exists CKD HGB USE SMARTSET 08674 02/15/202402/14, 04/07/2022, 10/05/2020, Additional history exists Pneumococcal Vaccine: 65+ Years Completed 05/02/2015, 10/08/2002 Zoster Vaccines Completed 10/07/2021, 07/05/2021 GARDASIL-HPV IMMUNIZATION SERIES Aged Out No longer [...] Agents on File Name Relationship [facility] Susu Quezada Adult Child Health Care Repr esentative (appointed verbally by patient or by statute hierarchy) Care Teams Manager Managed Care Relationship Specialty Start Date End Date Ben Cisneros MD [address] [place] [address] [place] [address] PCP - General Family Medicine 05/09/18 documented as of this encounter
--- OUTSIDE RECORDS SUMMARY | 2023-09-09 22:15 | External Medical Summary | Summary of Care ---
Author Name Unknown Organization [facility] Address [address] [place] [address] Phone [phone] Care Team Providers Care Scallop Dredger Name Role Phone Ben Cisneros MD Primary Care Provider [phone] Reason for Visit * Reason Comments Adult Annual Wellness Visit, Subsequent Visit Encounter Details Date Type Department Care Team Description 07/12/2023 Nurse Only Ancillary [address] [place] [phone] [facility], Nurse [address] [place] [address] Adult Annual Wellness Visit, Subsequent Visit Allergies Active Allergy Reactions Severity Noted Date [...] top 454 g 0 11/22/2021 Active Saline Waverly 0.65 % Nasal Solution (Mono) Administer into nostril 1 Waverly as needed for Congestion. 60 mL 5 [...] 4 Active Carvedilol 12.5 MG Oral Tablet (Coreg)Indications: Primary hypertension,Diasto lic dysfunction Take 1 Tablet by mouth 2 times a day with morning and evening meals. 200 Tablet 1 03/06/2023 Active Famotidine 20 MG Oral Tablet (Pepcid)Indications [...] morning. 30 Tablet 3 05/11/2023 Active Ipratropium Ephraim HFA 17 MCG/ACT Inhalation Aerosol Solution (Atrovent Hfa)Indications:[employer] workers pneumoconiosis (HCC) INHALE TWO PUFFS BY MOUTH FOUR TIMES A DAY - MORNING, NOON, EVENING, AND BEFORE BEDTIME. 38.7 g 0 05/19/2023 Active Loratadine 10 MG Oral Capsule Take 1 Capsule by mouth in the morning. 0 3 Discontinu ed(Medicat ion List Clean Up) documented as of this encounter (statuses as [...] hypoxemia 04/08/2022 Overview: Wears 2 LPM via CO, DME: [facility] Chronic rhinitis 04/08/2022 Lung nodules 04/08/2022 [...] appointment. 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/31/20 09 Bilateral carpal tunnel syndrome 05/10/2018 [...] Sign Reading Time Taken Comments Blood Pressure 100/64 07/12/2023 10:11 AM EDT Pulse 63 07/12/2023 10:11 AM EDT Temperature 36.1 C (96.9 F) 07/12/2023 10:11 AM E DT Respiratory Rate - - Oxygen Saturation 98% 07/12/2023 10:11 AM EDT Inhaled Oxygen Concentration - - Weight 82.1 kg (181 lb) 07/12/2023 10:11 AM EDT Height 186.7 cm (6' 1.5") 07/12/2023 10:11 AM ED T Body Mass Index 23.56 07/12/2023 10:11 AM EDT documented in this encounter Patient Instructions * Patient Instructions* Yasmine Christy RN - 07/12/2023 10:10 AM EDT Patient Instructions - Fall Prevention (This education is for all patients over 65 regardless of symptoms) Remember to take your current medications as prescribed. In order to prevent falls, you are encouraged to: Exercise Utilize assistive/adaptive devices Avoid multifocal lenses when walking Avoid hazards in home Maintain a regular toileting schedule Any questions please contact our office. Preventing Falls in the Home (This education is for all patients over 65 regardless of symptoms) As you get older, falls are more likely. Thats because your reaction time slows. Your muscles and joints may also get stiffer, making them less flexible. Illness, medications, and vision changes can also affect your balance. A fall could leave you unable to live on your own. To make your home safer, follow these tips: Floors Put nonskid pads under area rugs Remove throw rugs Replace worn floor coverings Tack carpets firmly to each step on carpeted stairs. Put nonskid strips on the edges of uncarpeted stairs Keep floors and stairs free of clutter and cords Arrange furniture so there are clear pathways Clean up any spills right away Bathrooms Install grab bars in the tub or shower Apply nonskid strips or put a nonskid rubber mat in the tub or shower Sit on a bath chair to bathe Use bathmats with nonskid backing Lighting Keep a flashlight in each room Put a nightlight along the pathway between the bedroom and the bathroom Lucio Patient Education Copyright 2008 - 2010 Lucio except where otherwise noted Preventing Falls: Exercises to Improve Balance, Flexibility, Strength, and Staying Power (This education is for all patients over 65 regardless of symptoms) Certain types of exercises may help make you less likely to fall. Try the ones below. Or do other exercises that your healthcare provider suggests. Depending on your health, you may need to start slowly. Dont let that stop you. Even small amounts of exercise can help you. Be sure to talk to yourhealthcare provider before starting any exercise program. Improve Balance Many types of exercise can help improve balance. Emilio chi and yoga are good examples. Heres another one to try. You can do it anytime and almost anywhere. Stand next to a counter or solid support. Push yourself up onto your tiptoes. Hold for 5 seconds. If you start to lose your balance, hold on to the counter. Rest and repeat 5 times. Work up to holding for 20 to 30 seconds, if you can. Increase Flexibility Being more flexible makes it easier for you to move around safely. Try exercises like the seated hamstring stretch. Sit in a chair and put one foot on a stool. Straighten your leg and reach with both hands down either side of your leg. Reach as far down your leg as you can. Hold for about 20 seconds. Go back to the starting position. Then repeat 5 times. Switch legs. Build Strength Resistance exercises help build strength. You can do them without equipment. Or you can use weights, elastic bands, or special machines. One such exercise is called the biceps curl. You can hold a 1 pound weight or even a can of soup. Do this exercise at least 3 times a week. Strive for everyday. Sit up straight in a chair. Keep your elbow close to your body and your wrist straight. Bend your arm, moving your hand up to your shoulder. Then slowly lower your arm. Repeat 5 times. Switch to the other arm. Build Your Staying Power Aerobic exercises make your heart and lungs stronger so you can keep moving longer. Walking and swimming are two of the best types of exercises you can do. Using a stationary bike is great, too. Find an aerobic exercise that you enjoy. Start slowly and build up. Even 5 minutes is helpful. Aimfor a goal of 30 minutes, at least 3 times a week. You dont have to do 30 minutes in one session. Break it up and walk a little throughout the day. More Helpful Tips Start easy. Slowly work up to doing more. Talk with your healthcare provider about the best exercises for you. Call senior centers or health clubs about exercise programs. If needed, have a family member watch you walk every so often to check your stability. Exercise with a friend. Choose an activity you both enjoy. Try exercises that you can do anytime, anywhere. Here are two examples. Have someone with you when you first try these: Practice walking by placing one foot right in front of the other. Stand up and sit down 10 times. Repeat this throughout the day. Lucio Patient Education Copyright 2008 - 2010 Lucio except where otherwise noted. Preventing Falls: Moving Safely Using a Cane or Walker (This education is for all patients over 65 regardless of symptoms) Keep the cane away from your feet so you dont trip. A walking aid, such as a cane or walker, can help you stay more independent and avoid falls. Remember to keep your walking aid within easy reach when youre in a chair or in bed. And learn how to use it safely so you dont injure yourself. Using a Cane If you have a stronger side, hold the cane on that side. Get your balance. Move the cane and your weaker leg forward. Support your weight on both the cane and your weaker side. Step with your stronger leg. Start again from step 1. If youre using a folding walker, be sure you know how to lock it open. Check that its locked open before each use. Using a Walker Roll the walker (or lift it, if youre using one without wheels) forward about 12 inches. Step forward with your weaker leg first. Use the walker to help keep your balance. Bring your other foot forward to the center of the walker. Start again from step 1. Helpful Tips Check with your healthcare provider about the right walking aid to use. Ask about a walker with a seat attached. Check the tips of your cane or walker to make sure they have nonskid covers. Move slowly from room to room. Dont vaughan. Sit down to get dressed. Use a pricilla pack or backpack to keep your hands free. Get help for jobs that mean climbing, even on a stepstool. Lucio Patient Education Copyright 2008 - 2010 Lucio except where otherwise noted. Treating Urinary Incontinence in Men (This education is for all patients over 65 regardless of symptoms) You can't always control the release of urine. You may leak urine. Or you may not be able to hold your urine until you can get to a bathroom. This is called urinary incontinence. The problem can be managed. Talk to your doctor about your treatment options. Taking Medications Prescription medications may help you. They may: Help the sphincter to work better. (This is the muscle that closes to keep urine from leaking out of the bladder.) Help stop the bladder from shahzad too often to push urine out. Help the bladder muscles contract with more force. Help relax the sphincter muscle and allow urine to flow more freely. Making Changes to Your Routine Certain changes in your daily routine may help. These include: Avoiding caffeine and alcohol. Using timed voiding. This is following a schedule for drinking fluids and urinating. Doing Kegel exercises daily. These exercises involve tightening the muscles in your sphincter and around your bladder to help strengthen them. Your doctor can explain how to do them. Using a Catheter A catheter is a narrow tube that is inserted through the urethra into the bladder. It drains urine.A condom catheter covers the penis. It channels urine into a collection bag. It is worn most of thetime. Intermittent catheterization means inserting a catheter to drain the bladder, then removing it. This is done on a regular schedule. Having Surgery If other options don't work, surgery may be recommended. If surgery is an option, your healthcare provider can discuss it with you and explain its risks and benefits. Healing After Prostate Surgery Surgery on the prostate gland can cause incontinence. Most often, the incontinence is only for a short time. It clears up when healing is complete. Very rarely, prostate surgery can result in permanent incontinence. Hi Mr. Elliott, As your primary care physician, I know that regular visits with my patients who have several chronic conditions can go a long way in helping you stay healthy. Many times, the clinic team and I are in touch with you and/or other care team members between office visits to adjust medications, discuss any changes in your health, and review our care plan to make sure it is still meeting your needs. I am dedicated to helping you take a more active role in your overall care. It is important that there are resources available to you, so I created a personalized plan of care with a Health Calendar for you, which is included on the next page of this letter. Below is a list that summarizes your electronic health record: Health Maintenance Due: Health Maintenance Due Topic Date Due CKD PHOS USE SMARTSET [id number] 05/12/2023 COVID-19 Vaccine ( season) 2023 Depression Screening 07/08/2023 Current Medication List: (as of Visit date not found (in office), Visit date not found (telemedicine) ) Current Outpatient Medications Medication Sig Dispense Refill [...] cerave cream on top 454 g 0 Fluticasone Propionate 50 MCG/ACT Nasal Suspension (Flonase) Administer 2 Sprays into nostril in the morning. Flutter Device Provided at visit 1 Each 0 Tamsulosin HCl 0.4 MG Oral Capsule (Flomax) TAKE ONE CAPSULE BY MOUTH TWICE A DAY 200 Capsule 1 Rosuvastatin Calcium 10 MG Oral Tablet (Crestor) TAKE ONE TABLET BY MOUTH AT BEDTIME 100 Tablet1 Pantoprazole Sodium 20 MG Oral Tablet Delayed Release (Protonix) TAKE ONE TABLET BY MOUTH EVERYMORNING 30 MINUTES BEFORE THE FIRST MEAL OF THE DAY. DO NOT CRUSH, CUT OR CHEW 100 Tablet 1 Citalopram Hydrobromide 10 MG Oral Tablet (CeleXA) TAKE ONE TABLET BY MOUTH EVERY MORNING. 100 Tablet 1 Carvedilol 12.5 MG Oral Tablet (Coreg) Take 1 Tablet by mouth 2 times a day with morning and evening meals. 200 Tablet 1 Famotidine 20 MG Oral Tablet [...] 1 Tablet before bedtime. 200 Tablet 1 guaiFENesin ER 600 MG Oral Tablet Extended Release 12 Hour Take 1 Tablet by mouth every 12 hours as needed for Cough. Empagliflozin 10 MG Oral Tablet (Jardiance) Take 1 Tablet by mouth in the morning. 90 Tablet 3 Torsemide 100 MG Oral Tablet (Demadex) Take 0.5 Tablets by mouth in the morning. 30 Tablet 3 Ipratropium Ephraim HFA 17 MCG/ACT Inhalation Aerosol Solution (Atrovent Hfa) INHALE TWO PUFFS BY MOUTH FOUR TIMES A DAY - MORNING, NOON, EVENING, AND BEFORE BEDTIME. 38.7 g 0 Saline Waverly 0.65 % Nasal Solution (Mono) Administer into nostril 1 Waverly as needed for Congestion. 60 mL 5 No current facility-administered medications for this visit. Current List of Allergies: (as of Visit date not found (in office), Visit date not found (telemedicine) ) Review of patient's allergies indicates: Allergen Reactions No Known Drug Allergy Most Recent Lab Results: Results for orders placed or performed in visit on 06/12/23 VITAMIN B12 Result Value Ref Range Vitamin B12 969 232 - 1,245 pg/mL BASIC METABOLIC PANEL Result Value Ref Range BUN 37 (H) 6 - 20 mg/dL Creatinine 1.9 (H) 0.6 - 1.2 mg/dL Estimated Glomerular Filtration Rate 33 (L) >=60 mL/min Sodium 137 135 - 146 mmol/L Potassium 4.3 3.5 - 5.1 mmol/L Chloride 96 (L) 98 - 107 mmol/L CO2 27 22 - 32 mmol/L Anion Gap 14 7 - 15 mmol/L Glucose 167 (H) 70 - 120 mg/dL Calcium 9.6 8.4 - 10.2 mg/dL Sincerely, Ben Cisneros MD 07/12/2023 [facility] (as of Visit date not found (in office), Visit date not found (telemedicine) ) Care needs Care needs Last completed Due next COVID-19 Vaccine ( season) 2022 06/02/2023 Diphtheria, tetanus & pertussis vaccines (2 - Td or Tdap) 10/14/2013 10/14/2023 Urine albumin/creatinine test 02/14/2023 02/15/2024 As you look over the recommended services, be sure to check with your insurance company to determine what's covered. [employer] is a great tool that helps you review your medical record online, including test results, doctor notes and your health summary. You can also schedule appointments with me and other members of your care team, request prescription refills and ask for advice related to your medical conditions at [employer]. documented in this encounter Progress Notes * Yasmine Christy RN - 07/12/2023 10:10 AM EDT Urinary Incontinence Plan of Care Documentation: (This education is for all patients over 65 regardless of symptoms) Current medications reconciled. Patient encouraged to: Practice kegal exercises Provide education materials Use the restroom every 2 hours throughout the day Limit caffeine, alcohol, spicy foods and acidic foods Keep a bladder diary Limit fluid intake 3-4 hours before bed Lose weight Prevent constipation Take fluid pills at a time when you can get to the bathroom quickly Control sugar better if diabetic Limit fluid intake to 60 oz. per day Wear support stockings (TEDs)if you have edema Yasmine Christy RN 07/12/2023AD8 Dementia Screening Interview Person answering questions: patient Remember, "Yes, a change" indicates that there has been a change in the last several years caused by cognitive (thinking and memory) problems 1. Problems with judgement (eg: problems making decisions, bad financial decisions, problems with thinking). No (0) 2. Less interest in hobbies/activities. Yes (1) 3. Repeats the same things over and over (questions, stories, or statements). No (0) 4. Trouble learning how to use a tool, appliance, or gadget (eg: VCR, computer, microwave, remote control). No (0) 5. Forgets correct month or year. No (0) 6. Trouble handling complicated financial affairs (eg: balancing checkbook, income taxes, paying bills). No (0) 7. Trouble remembering appointments. No (0) 8. Daily problems with thinking and/or memory. No (0) TOTAL AD8: 0 - AD8 Dementia Screening Score The final score is a sum of the number items marked "Yes, A Change". 0 - 1: Normal cognition; 2 or greater: Cognitive impairments is likely to be present - further testing required Adult Annual Wellness Visit: Ned Elliott is a 87 year old male who presents for an Adult Annual Wellness Visit. Depression Screening: Did the patient complete the screening questionnaire for Depression? Yes Is the patient's total score for Depression 15 or greater? No, no further intervention needed, unless requested by patient. Did the patient answer positively to the suicide question? No, no further intervention needed, unless requested by patient. In general, compared to other people your age, what would you say that your health is? Good Ht Readings from Last 1 Encounters: 07/12/23 1.867 m (6' 1.5") Wt Readings from Last 1 Encounters: 07/12/23 82.1 kg (181 lb) Body Mass Index: BMI Less than 30 Body mass index is 23.56 kg/m. BP Readings from Last 1 Encounters: 07/12/23 100/64 Medical/Surgical/Family History Reviewed: Yes Past Medical History: Diagnosis Date Acute bronchitis due to Rhinovirus 03/06/2023 admitted [facility] Acute respiratory failure (HCC) 03/28/2023 [facility], treated with SoluMedrol, ceftriaxone, azithromycin, culture grew stenotrophomonas maltophilia Allergic rhinitis 11/30/2000 Benign hypertension with CKD (chronic kidney disease) stage III (HCC) Benign neoplasm of colon 02/28/2008 adenomatous/ repeat colonoscopy in 3 yrs Bilateral carpal tunnel syndrome Bronchiectasis (HCC) CKD (chronic kidney disease), stage III (HCC) [place] workers' pneumoconiosis (HCC) COPD, mild (HCC) Degenerative lumbar disc 05/13/2019 L4-5 Essential hypertension with goal blood pressure less than 140/90 Gastroesophageal reflux disease without esophagitis 08/18/2021 Generalized osteoarthritis 10/02/2000 Inflammation of sacroiliac joint (HCC) 10/12/2001 right side Insomnia with sleep apnea 10/02/2000 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 Pneumonia due to hemophilus influenzae ([facility]) 08/16/2022 Prepatellar bursitis 05/22/2003 Restrictive lung disease 05/19/2017 Past Surgical History: Procedure Laterality Date ANESTHESIA, UPPERARM TENDON SURGERY left elbow tendon repair BIOPSY OF PROSTATE 11/03/2014 CAROTID DUPLEX EXAMINATION Bilateral 04/11/2022 50-69% bilateral ICA stenosis, could be higher due to calcified plaque CARPAL TUNNEL SURGERY Right 08/16/2017 Dr Renner CARPAL TUNNEL SURGERY Left 06/26/2019 NEUROPLASTY MEDIAN NERVE AT CARPAL TUNNEL performed by Mary Carmen Aguayo DO at OR [facility] CLAVICULE FX W/O MANIP 1956 COLONOSCOPY W/ LESION REMOVAL, SNARE 02/28/2008 polyps x 2 removed/adenomatous/repeat in 3 yrs CTA CHEST NON-CORONARY W CONTRAST 02/21/2023 stable interstitial disease, no PE, New trace bilateral pleural effusions. No significant pulmonaryedema. DESTROY LUMBAR SACRAL NERVE IMAGING ADD'L 09/28/2022 DESTROY LUMBAR SACRAL NERVE IMAGING ADD'L performed by Mayo Hernandez DO at OR [facility] DESTROY LUMBAR SACRAL NERVE IMAGING SINGLE 09/28/2022 DESTROY LUMBAR SACRAL NERVE IMAGING SINGLE performed by Mayo Hernandez DO at OR [facility] ECHO EXAM OF HEART (2D ECHO) 04/07/2022 normal LV size and function with mild concentric LVH, EF 60%, grade II diastolic dysfunction ECHO EXAM OF HEART (2D ECHO) 03/28/2023 large wall segment [place] [address]5764% mod MR ECHO, COMPLETE (2D), TRANS-THORACIC 02/20/2019 normal LV size and function, EF 65-69%, grade II diastolic dysfunction. 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 INJECT DX/THER SUBSTANCE INTERLAMINAR LUMBAR/SACRAL W IMAGE GUIDE 01/06/2022 INJECTION SPINE LUMBAR OR SACRAL performed by Mayo Hernandez, DO at OR [facility] INSERTION OF LENS PROSTHESIS 10/01/2015 right eye -lino L-/S-SPINE PARAVERTEBRAL FACET INJ,1 LEVEL 08/17/2022 L-/S-SPINE PARAVERTEBRAL FACET INJ, 1 LEVEL performed by Mayo Hernandez, DO at OR [facility] L-/S-SPINE PARAVERTEBRAL FACET INJ,1 LEVEL 09/14/2022 L-/S-SPINE PARAVERTEBRAL FACET INJ, 1 LEVEL performed by Myao Hernandez, DO at OR [facility] L-/S-SPINE PARAVERTEBRL FACET INJ,2 LEVELS 08/17/2022 L-/S-SPINE PARAVERTEBRAL FACET INJ, 2 LEVELS performed by Mayo Hernandez, DO at OR [facility] L-/S-SPINE PARAVERTEBRL FACET INJ,2 LEVELS 09/14/2022 L-/S-SPINE PARAVERTEBRAL FACET INJ, 2 LEVELS performed by Mayo Bossman Hernandez, DO at OR [facility] [place] BLEPHAROPLASTY UPPER EYELID W/EXCESSIVE SKIN Bilateral 08/10/2022 Dr. Alves-Blephroplasty with levator REMOVAL OF APPENDIX 10/02/1982 Appendectomy REMOVE CATARACT, INSERT LENS PROSTH Left 04/05/2018 Dr Burks SPIROMETRY B/A BRONCHODILATOR 05/19/2017 restrictive pattern referral suggested THORACENTESIS Right 03/30/2023 1.7 L removed Family History Problem Relation Age of Onset Heart Disorder Mother dec. age 82 Heart Disorder Father dec.age 67 , electrocution at mines COPD Father Heart disease Brother Cancer Brother skin Cancer Uncle (Unspecified) dec. age80,prostate Has patient ever had cancer? History of cancer, type: skin and prostate Social History Tobacco Use Smoking status: Former Packs/day: 0.25 Years: 5.00 Pack years: 1.25 Types: Cigarettes Quit date: 05/19/1960 Years since quittin.1 Smokeless tobacco: Never Substance Use Topics Alcohol use: Not Currently Alcohol/week: 2.0 standard drinks Types: 2 12 oz of beer per week Comment: weekly Vaping/E-Cigarette Use Vaping/E-Cigarette Use Never User Vaping/E-Cigarette Substances Vaping/E-Cigarette Devices Tobacco/Alcohol screening completed today? Yes Hospital Care: Admissions (within the last year): Hospital, Location: [facility] 03/2023 x 2 ER within 30 days: No Does the patient have an Advance Directives/Living Will? Yes, POA is daughter Last Physical Exam: Last physical exam: 06.24 Does patient see primary provider regularly? Yes Does patient see other providers? Yes, Specialist Patient Care Team updated? Yes Review of patient's allergies indicates: Allergen Reactions No Known Drug Allergy Immunization History Administered Date(s) Administered COVID-19 mRNA, LNP-s, No Preserve, 2-Dose Series (Moderna) 12/03/2020, 12/31/2020, 01/07/2022 Pneumococcal Conjugate Vacc, 13 Valent (Prevnar) 05/02/2015 Pneumococcal Polysaccharide PPV23 (Pneumovax) 10/08/2002 SEASONAL INFLUENZA, PF, 6 M & Above, IM , (FLULAVAL or FLUZONE) 07/13/2017, 06/28/2018 Season Influenza, Quad, PF, Adjuvanted, 65+ Yrs, IM (FLUAD) 07/22/2020 Seasonal Influenza, Quadrivalent Hd (Fluzone Hd) 06/17/2021, 07/08/2022, 06/20/2023 Seasonal Influenza, Quadrivalent, No Preserve, IM 06/29/2015, 06/22/2016 Seasonal Influenza, Split, IIV3, With Preserve, Inj 07/29/2002, 09/19/2003, 07/05/2005, 07/06/2006,07/17/2007, 07/22/2008, 07/31/2009, 06/22/2010, 06/21/2011, 06/19/2012, 06/18/2013, 06/19/2014 Seasonal Influenza, Trivalent, Adjuvanted, 65+ yrs 06/25/2019 TD, Preservative Free 07/22/2008 TDAP (age 10 and older)(Boostrix) 10/14/2013 Zoster Vaccine Recombinant (Shingrix) 07/05/2021, 10/07/2021 Current Outpatient Medications Medication Sig Dispense Refill [...] cerave cream on top 454 g 0 Fluticasone Propionate 50 MCG/ACT Nasal Suspension (Flonase) [...] BY MOUTH EVERY MORNING. 100 Tablet 1 Carvedilol 12.5 MG Oral Tablet (Coreg) Take 1 Tablet by mouth 2 times a day with morning and evening meals. 200 Tablet 1 Famotidine 20 MG Oral Tablet [...] mouth in the morning. 90 Tablet 3 Torsemide 100 MG Oral Tablet (Demadex) Take 0.5 Tablets by mouth in the morning. 30 Tablet 3 Ipratropium Ephraim HFA 17 MCG/ACT Inhalation Aerosol Solution (Atrovent Hfa) INHALE TWO PUFFS BY MOUTH FOUR TIMES A DAY - MORNING, NOON, EVENING, AND BEFORE BEDTIME. 38.7 g 0 Saline [place] 0.65 % Nasal Solution (Mono) Administer into nostril 1 [place] as needed for Congestion. 60 mL 5 No current facility-administered medications for this visit. Patient Active Problem List Diagnosis Code GENERAL OSTEOARTHROSIS M15.9 INSOMNIA W SLEEP APNEA G47.00, G47.30 [place] pneumoconiosis (HCC) J60 ADVANCE DIRECTIVE INFORMATION Hx of nonmelanoma skin cancer Z85.828 Primary hypertension I10 Restrictive lung disease J98.4 History of prostate cancer Z85.46 Degenerative lumbar disc M51.36 Dyslipidemia, goal LDL below 100 E78.5 Chronic kidney disease, stage 3b ([facility]) N18.32 Gastroesophageal reflux disease without esophagitis K21.9 Nocturnal hypoxemia G47.34 Chronic rhinitis J31.0 Lung nodules R91.8 History of tobacco use Z87.891 Medical home patient encounter Z00.8 Chronic systolic heart failure ([facility]) I50.22 Interstitial pulmonary disease ([facility]) J84.9 Pleural effusion due to CHF (congestive heart failure) ([facility]) I50.9 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 Yes Patient takes medications as prescribed? Yes Patient manages own medications: Yes Patient uses a pill box? Yes, refill(s) completed by self Dental Exam: full dentures Eye Screening: Yes: Every year Are you having trouble with hearing? No Do you use an assistive device to help your hearing? No Exercise Screening: daily exercise, patient states he tries to walk, and steps and exercises Nutrition Assessment: Eats three meals a day Pain Screening: Are you having any pain? No Sleep Screening Tool 'STOP': Do you snore? Yes Do you feel fatigued during the day? No Do you wake up feeling like you haven't slept? No Have you been told you stop breathing at night? No Do you gasp for air or choke while sleeping? No Have you been told you have Sleep Apnea? Yes Do you have high blood pressure or are on medication(s) to control high blood pressure? No Patient does use 2L at nightime SCORE: If you check YES to two or more questions, make a referral for Obstructive Sleep Apnea Patient and Caregiver Support System: Patient lives alone Means of Transportation: Drives. Concerns identified are: night, Patient lives in One Story - with basement stairs: 12 railings Community Resources: Meals on Wheels Functional Status and ADL Skills: Has patient ever had an amputation? No Functional Assessment: 90- Able to carry on normal activity, minor symptoms of disease Ambulation: Patient ambulates without assistive device. Independent Dressing: Gets clothes and dresses without any assistance: Independent Able to move freely in chair or bed including turning over: Independent Repositioning (bed or chair): Not applicable Transfers: Independent Toileting: Goes to bathroom, uses toilet, arranges clothes and returns without any assistance: Independent Toileting: continent of bladder and continent of bowel Feeding: Self Bathing: Self; shower chair and tub and shower Requires minimal assistance with ADLs. Instrumental ADL's: Shopping: Minimal Assistance Housekeeping: Minimal Assistance Handling Finances: Minimal Assistance DME Vendor Name: Not Applicable Fall Risk Assessment: Can the patient demonstrate that he can stand from a sitting position? Yes Has the patient had a fall within the last 6 months? No Does the patient have a problem with his gait or balance? Yes Does the patient take 4 or more prescription medicines? Yes Does the patient use sedatives or narcotics? No Fall Risk Factors Present: Uses more than 4 medications Balance or gait disturbances Lower extremity weakness Visually impaired Older than age 70 Muz-Wt-puc-Go Test: Time began at 1000. Patient stood from sitting position and walked approximately 10 feet, returned and sat down. Total time for zfk-eo-wzl-go test was 9 seconds. Tdi-Qb-bzn-Go Test completed? Yes Gender Specific Preventative Plan: Health Maintenance Topic Date Due CKD PHOS USE SMARTSET 46740 05/12/2023 COVID-19 Vaccine (2022- season) 2023 Depression Screening 07/08/2023 DTaP,Tdap,and Td Vaccines (2 - Td or Tdap) 10/14/2023 Albumin/Creatinine Ratio 02/15/2024 CKD HGB USE SMARTSET 92139 02/15/2024 Influenza Vaccine (FLU shot) Completed Zoster Vaccines Completed Pneumococcal Vaccine: 65+ Years Completed Hepatitis B Aged Out MENINGOCOCCAL (MENACTRA/MENVEO) Aged Out GARDASIL-HPV IMMUNIZATION SERIES Aged Out Follow Up/ Referrals/Handouts: Depression screening - completed, patient just frustrated and not able to do what he used to do Functional assessment - doing well, lives alone Falls Risk screening - discussed, encouraged walking stick outside Exercise screening - If poor exercise habits, provide exercise handouts Nutrition assessment -. Education Provided and Handouts Provided Pain screening - none Incontinence screening - no complaints today Patient has been verbally educated on the need or importance of Cholesterol, GFR, Glucose, and Immunizations: flu,shingrix,covid Pt has completed the covid vaccines: No, patient had 3 inj and declines any more, patient feels heart issues came from covid vaccines. Routine general medical examination at a health care facility (Primary) Risk and functional assessment Chronic kidney disease, stage 3b (HCC) Component Latest Ref Rng 05/03/2023 BUN 6 - 20 mg/dL 35 (H) Creatinine 0.6 - 1.2 mg/dL 2.0 (H) Estimated Glomerular Filtration Rate >=60 mL/min 32 (L) (H) High (L) Low Chronic systolic heart failure (HCC) - Med reconciliation completed and compliance discussed. - pt to continue present medications. Degenerative lumbar disc Dyslipidemia, goal LDL below 100 - Med reconciliation completed and compliance discussed. - pt to continue present medications. Lab Results Component Value Date/Time LDL CHOLESTEROL (CALCULATED) - [facility] 116 04/07/2022 12:40 PM LDL CHOLESTEROL (CALCULATED) - [facility] 128 04/01/2020 08:00 AM LDL CHOLESTEROL (DIRECT MEASURE) - [facility] NOT APPLICABLE 04/01/2020 08:00 AM Gastroesophageal reflux disease without esophagitis - Med reconciliation completed and compliance discussed. - pt to continue present medications. 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 - pt to continue present medications. Nocturnal hypoxemia -patient does use 2L of oxygen at bedtime Pleural effusion due to CHF (congestive heart failure) ([facility]) Primary hypertension - Med reconciliation completed and compliance discussed. - pt to continue present medications. BP Readings from Last 3 Encounters: 07/12/23 100/64 06/20/23 110/56 05/11/23 122/64 Patient states someone checked into meals on wheels and they told him it would be a year before he would hear something. I will call [facility]. I did call and leave message for Mady at [facility] to call me back re Me[facility] Whe[facility].(See other tele encounter.) Follow Up: Return in 1 year (on 07/12/2024) for 12 month Subsequent Adult Wellness Visit. | For: 12month Subsequent Adult Wellness Visit | Check-out note: 12 month Subsequent Adult Wellness Visit Would patient like to schedule next AWV visit? Yes Yasmine Christy RN documented in this encounter Miscellaneous Notes * Pt Handout (on AVS) - Yasmine Christy RN - 07/12/2023 10:48 AM EDT Images from the original note were not included. [id number] Eating Heart-Healthy Foods Eating has a big impact on your heart health. In fact, eating healthier can improve several of yourheart risks at once. For instance, it helps you manage weight, cholesterol, and blood pressure. Here are ideas to help you make heart- healthy changes without giving up all the foods and flavors you love. Getting started Talk with your healthcare provider about eating plans, such as the DASH or Mediterranean diet. You may also be referred to a dietitian. Ask a partner, family member, or friend to join you for mutual support. Change a few things at a time. Give yourself time to get used to a few eating changes before adding more. Work to create a tasty, healthy eating plan that you can stick to for the rest of your life. Goals for healthy eating Below are some tips to improve your eating habits: Limit saturated fats and trans fats. Saturated fats raise your levels of cholesterol, so keep these fats to a minimum. They are found in foods such as fatty meats, whole milk, cheese, and palm andcoconut oils. Avoid trans fats because they lower good cholesterol as well as raise bad cholesterol. Trans fats are most often found in processed foods, such as pastries, cookies, pies, muffins, fried foods, stick margarines, and shortening. Reduce how much sodium (salt) you have. Eating too much salt may increase your blood pressure. Limit your sodium intake to 2,300 milligrams (mg) per day (the amount in 1 teaspoon of salt), or lessif your healthcare provider recommends it. Dining out less often and eating fewer processed foods are two great ways to decrease the amount of salt you consume. At home, flavor your foods with other spices and herbs instead of salt. Managing calories. A calorie is a unit of energy. Your body king calories for fuel, but if you eat more calories than your body king, the extras are stored as fat. Your healthcare provider or dietitian can help you create a diet plan to manage your calories. This will likely include eating healthier foods and getting regular exercise. To help you track your progress, keep a food diary to record what you eat and how often you exercise. Choose the right foods Aim to make these foods manfred of your diet. If you have diabetes, you may have different recommendations than what is listed here: Fruits and vegetables provide plenty of nutrients without a lot of calories. At meals, fill halfyour plate with these foods. Choose between fresh, frozen, canned, or dried fruits and vegetables without added sauces, salt, or sugars. Split the other half of your plate between whole grains and lean protein. Whole grains are high in fiber and rich in vitamins and nutrients. Good choices include whole-wheat bread, pasta, oats, and brown rice. Make at least half of your grains whole grains. Lean proteins give you nutrition with less fat. Good choices include fish, skinless chicken and turkey, and beans. Draining the fat from cooked ground meat is another way to reduce the amount of fat you eat. Low-fat and nonfat dairy provide nutrients without a lot of fat. Try low-fat or nonfat milk, cheese, or yogurt. Healthy fats can be good for you in small amounts. These are unsaturated fats, such as olive oil, avocado, nuts, and fish. Try to have at least 2 servings per week of fatty fish, such as salmon, sardines, mackerel, rainbow trout, and albacore tuna. These contain omega-3 fatty acids, which are good for your heart. Flaxseed and walnuts are other sources of heart-healthy fats. More on heart-healthy eating Read food labels Healthy eating starts at the grocery store. Be sure to pay attention to food labels on packaged foods. Look for products that are high in fiber and protein and low in saturated fat, added sugars, andsodium. Avoid products that contain trans fat. And pay close attention to serving size. For instance, if you plan to eat 2 servings, double all the numbers on the label. Prepare food right A chicas part of healthy cooking is cutting down on added fat, sugar, and salt. Look on the Internet for lower-fat, lower-sodium recipes without a lot of added sugars. Also try these tips: Remove fat from meat and skin from poultry before cooking. Skim fat from the surface of soups and sauces. Broil, roast, boil, bake, steam, grill, or microwave food without added fats. Choose ingredients that spice up your food without adding calories, fat, sugar, or sodium. Try these items: horseradish, hot sauce, lemon zest and juice, garlic, onion, mustard, nonfat salad dressings, and vinegar. Small amounts of olive oil-based vinaigrettes are OK, too. For salt-free herbs and spices, try basil, cilantro, cinnamon, cumin, paprika, pepper, and rick. Last Reviewed Date: 09/01/202219994688-4786 [employer]. All rights reserved. This information is not intended as a substitute for professional medical care. Always follow your healthcare professional's instructions. * Pt Handout (on AVS) - Yasmine Christy RN - 07/12/2023 10:48 AM EDT Images from the original note were not included. [id number] 5 Steps for Eating Healthier Changing the way you eat can improve your health. It can lower your cholesterol and blood pressure,and help you stay at a healthy weight. Your diet doesn?t have to be bland and boring to be healthy.Just watch your calories and follow these steps: Step 1. Eat fewer unhealthy fats Choose more fish and lean meats instead of fatty cuts of meat. Skip butter and lard, and use less margarine. Replace these with healthier fats, such as olive, canola, or avocado oils. Pass on foods that have palm, coconut, or partially hydrogenated oils. Eat fewer high-fat dairy foods like cheese, ice cream, and whole milk. Get a heart-healthy cookbook and try some new recipes. Step 2. Go light on salt Keep the saltshaker off the table. Limit high-salt ingredients, such as soy sauce, bouillon, and garlic salt. Instead of adding salt when cooking, season your food with herbs, spices, and other flavorings. Try lemon, garlic, onion, vinegar, or salt-free herb seasonings. Limit convenience foods, such as boxed or canned foods and restaurant food. Read food labels and choose lower-sodium options. Buy fresh, frozen, or canned vegetables that don't have added salt. Step 3. Limit sugar Pause before you add sugars to pancakes, cereal, coffee, or tea. This includes white and brown table sugar, syrup, honey, and molasses. Cut your usual amount by half. Swap out sugar-filled soda and other drinks. Buy sugar-free or low-calorie beverages. Remember, water is always the best choice. Try adding lemon juice to water for extra flavor. Read labels and choose foods with less added sugar. Keep in mind that dairy foods and foods withfruit will have some natural sugar. Cut the sugar in recipes by 1/3 to 1/2. Boost the flavor with extracts like almond, vanilla, or orange. Or add spices such as cinnamon or nutmeg. Step 4. Eat more fiber Eat fresh fruits and vegetables every day. Boost your diet with whole grains. Go for oats, whole-grain rice, and bran. Add beans and lentils to your meals. Drink more water to match your fiber increase to help prevent constipation. Step 5. Pay attention to serving sizes Remember that a serving size is a standard measurement. It will let you track the amount of fat,calories, and other nutrients in the food you eat. Read the Nutrition Facts label on packaged foods to learn their serving sizes. Use serving sizes to assess how much food you put on your plate. Pay attention to your portions.How many servings are you eating? Keep in mind that your needs may change if you?re more active or less active, or if you have other factors that change your calorie needs. Use your hand to help you measure serving sizes. For example: o 1 teaspoon: This is about the size of the first joint of your thumb. o 1 tablespoon: This is about the size of the first 2 joints of your thumb. o 1 ounce: This is about what you can fit in your cupped hand. o 2 to 3 ounces: This is about the size of the palm of your hand. o cup: This is also about what you can fit in your cupped hand. o 1 cup: This is about the size of your fist. Last Reviewed Date: 09/01/202219992888-3815 [employer]. All rights reserved. This information is not intended as a substitute for professional medical care. Always follow your healthcare professional's instructions. documented in this encounter Plan of Treatment Upcoming Encounters Date Type Specialty Care Team Description 08/03/2023 Telemedicine Nutrition Services Kelly Peraza, DARCY [address] [place] [id number] 08/15/2023 Cardiac Studies Cardiac Studies 08/21/2023 Office Visit Cardiology Luh Garcia CRNP [address] [place] [id number] 11/29/2023 Office Visit Dermatology Dalila West PA-C [address] [place] [address] [place] [id number] 12/21/2023 Office Visit Family Medicine Claude Mata MD [address] [place] [address] [place] [id number] 07/15/2024 Nurse Only Ancillary Rubina, Nurse Annual Wellness [address] [place] [address] [place] [id number] Health Maintenance Due Date Last Done Comments CKD PHOS USE SMARTSET 84759 05/12/202305/02, 10/05/2020, 04/01/2020, Additional history exists COVID-19 Vaccine ( season) 2023 01/07/2022, 12/31/2020, 12/03/2020 Depression Screening 07/08/2023 07/08/2022 DTaP,Tdap,and Td Vaccines (2 - Td or Tdap) 10/14/2023 10/14/2013, 07/22/2008 Albumin/Creatinine Ratio 02/15/2024 023, 04/07/2022, 10/05/2020, Additional history exists CKD HGB USE SMARTSET 54350 02/15/202402/14, 04/07/2022, 10/05/2020, Additional history exists Pneumococcal [...] as of this encounter Visit Diagnoses Diagnosis Routine general medical examination at a health care facility- Primary Risk and functional assessment Screening for unspecified condition Chronic kidney disease, stage 3b (HCC) Chronic systolic heart failure (HCC) Chronic systolic heart failure Degenerative lumbar disc Degeneration of lumbar or lumbosacral intervertebral disc Dyslipidemia, goal LDL below 100 Other and unspecified hyperlipidemia Gastroesophageal reflux disease without esophagitis Esophageal reflux Hx of nonmelanoma skin cancer Personal history of other malignant neoplasm of skin 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 Healthcare Agents on File Name Relationship Healthcare Agent [facility] Communication Susu Quezada Adult Child Health Care Repr esentative (appointed verbally by patient or by statute hierarchy) Care Teams Scallop Dredger Relationship Specialty Start Date End Date Ben Cisneros MD [address] [place] [address] [place] [id number] PCP - General Family Medicine 05/09/18 documented as of this encounter
--- OUTSIDE RECORDS SUMMARY | 2023-09-09 22:15 | External Medical Summary | Summary of Care ---
Author Name Unknown Organization [facility] Address [address] [place] [address] Phone [phone] Care Team Providers Care Sports Media Name Role Phone Ben Cisneros MD Primary Care Provider Reason for Visit * Reason Onset Date Comments case management 05/26/[address] 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) Allergies Active Allergy Reactions Severity Noted Date Comments No Known Drug Allergy 10/12/2000 documented as of this encounter (statuses as of 05/26/2023) Medications Medication Sig Dispensed Refills Start Date [...] top 454 g 0 11/22/2021 Active Saline [place] 0.65 % Nasal Solution ([place]) Administer into nostril 1 Art as needed for Congestion. 60 mL 5 [...] morning. 30 Tablet 3 05/11/2023 Active Ipratropium [place] HFA 17 MCG/ACT Inhalation Aerosol Solution (Atrovent Hfa)Indications:[place] workers pneumoconiosis (HCC) INHALE TWO PUFFS BY MOUTH FOUR TIMES A DAY - MORNING, NOON, EVENING, AND BEFORE BEDTIME. 38.7 g 0 05/19/2023 Active documented as of this encounter (statuses as of 05/26/2023) Active Problems Problem Noted Date Hospital discharge follow-up 04/10/2023 Chronic systolic heart failure 3 Interstitial pulmonary disease 3 Pleural effusion due to CHF (congestive heart failure) 04/10/2023 Medical home patient encounter 3 Nocturnal hypoxemia 04/08/2022 Overview: Wears 2 LPM via [place], DME: [facility] Chronic rhinitis 04/08/2022 Lung nodules 04/08/2022 [...] appointment. GENERAL OSTEOARTHROSIS INSOMNIA W SLEEP APNEA [place] workers pneumoconiosis Restrictive lung disease documented as of this encounter (statuses as of 05/26/2023) Resolved Problems Problem Noted Date Resolved Date [...] Rotator cuff rupture 05/22/2003 05/10/2018 LOC PRIM [id number] 05/22/2003 10/16/19 15 Prepatellar bursitis 05/22/2003 10/16/2014 Inflammation of sacroiliac joint 10/12/2001 10/16/2014 LOC PRIM OSTEOARTH-HAND 10/12/2001 10/16/19 15 Respiratory abnormality 07/31/20 09 Overview: ICD-10 update of inactive term Umbilical hernia 05/10/2018 Insomnia 10/16/2014 Overview: ICD-10 update of inactive term COPD, severity to be determined 07/07/2011 Allergic rhinitis 05/10/2018 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 [facility] trigger. Received call back from patient. Alert, oriented, pleasant. Discussed sudden weight gain - patient feels it is due to him having put the scale on a board. Today was first weight on it. The scale had been on carpeting and he worried it might not be accurate there. Today's weight was 176.7 lbs. Denies increased shortness of breath. Denies increase in abdominal girth. Denies increase in lower leg edema. -wearing his compression stockings Reports he had also increased his fluid intake by 12 oz over his limit, thinking that would help his occasional dizziness. Discussed to color of his urine - very light yellow. Informed patient if he was dehydrated - his urine would get darker and stronger smelling. Patient denies any change in urine color or odor. Assured him then, that he was not dehydrated - so do not increase you water intake - your heart cannot handle that much fluid. This may also be a contributing factor of weight gain. Patient reports decrease in dizziness the past 2-3 days, but.... -has been having more issues with his vision. -reports one eye is "" anyway. -the other eye gets "real blurry", and he cannot see right. Cannot even read the newspaper the pastcouple days. Asked patient if he called the eye doctor - reports no, as he just saw him not too long ago. I said, but you weren't having these issues then? Reports his eyes seem to be worse in the mornings. Patient denies any issues with his vision at this time. -"they are okay right now". -they seem to be worse in the mornings. Reports ever since his cataract surgery, with lens implants, has not been able to tolerate bright sunshine, sunshine on snow, car headlights at night, taz if raining. Has pretty much given up driving - due to this. -his son takes him to appointments, the store, [employer], etc. Continued complaints of legs being weak. -offered outpatient physical therapy -patient declines Reports he can only walk so far, then has to sit and rest, walks a bit, then sits to rest. Went up/down the basement stairs x 2 yesterday (doing laundry) - by the end of the 2nd trip, he was"pooped", and had to sit and rest. Denies shortness of breath with going up the stairs. Recent blood pressure readings: 05/23/23 morning 109/57 05/24/23 morning 115/58 05/25/23 morning 103/52 05/26/23 morning 106/53 05/26/23 afternoon 108/53 Patient will continue daily dry weights. Patient will adhere to his fluid restriction. Patient will not adjust his medications on his own. Patient will rest when needed. Patient will call with sudden weight gain of 3 lbs overnight or 5 lbs in a week, or any other symptoms such as increased edema or shortness of breath. Patient started on a new medication by cardiology - Navya. Confirmed patient picked it up and is taking as ordered. Next planned contact will be next week. * Telephone Encounter - Jeanie Estrada RN - 05/26/2023 3:31 PM EDT Attempted to contact patient in regards to [facility] trigger for weight gain of 9.1 lbs overnight. No answer. Left message requesting call back. [facility]. Follow-up Routine Attempted Phone Call First Attempt Call Outcome Left Voicemail/Message Plan To attempt another outreach documented in this encounter Plan of Treatment Upcoming Encounters Date Type Specialty Care Team Description 06/12/2023 Laboratory Laboratory [place], [facility] [place] [address] [place] [address] [place] [address] 06/20/2023 Office Visit Family Medicine Ben Cisneros MD [address] [place] [address] [place] [address] 07/12/2023 Nurse Only Ancillary [place], Nurse Annual Wellness [address] [place] [address] [place] [address] 08/03/2023 Telemedicine Nutrition Services Kelly Peraza, DARCY [address] [place] [address] 08/15/2023 Cardiac Studies Cardiac Studies 08/21/2023 Office Visit Cardiology Luh Garcia CRNP [address] [place] [address] 11/29/2023 Office Visit Dermatology Dalila West PA-C [address] [place] [address] [place] [address] Health Maintenance Due Date Last Done Comments COVID-19 Vaccine (4 - Moderna series) 03/04/2022 01/07/2022, 12/31/2020, 12/03/2020 CKD PHOS USE SMARTSET 25387 05/12/202305/02, 10/05/2020, 04/01/2020, Additional history exists Influenza Vaccine (FLU shot) (#1) 2023 07/08/2022, 06/17/2021, 07/22/2020, Additional history exists Depression Screening, Annual for Pts 12 and Over 07/08/2023 07/08/2022 DTaP,Tdap,and Td Vaccines (2 - Td or Tdap) 10/14/2023 10/14/2013, 07/22/2008 Albumin/Creatinine Ratio 02/15/2024 023, 04/07/2022, 10/05/2020, Additional history exists CKD HGB USE SMARTSET 49389 02/15/202402/14, 04/07/2022, 10/05/2020, Additional history exists Pneumococcal [...] Agents on File Name Relationship Healthcare Agent [facility] p Communication Susu Quezada Adult Child Health Care Repr esentative (appointed verbally by patient or by statute hierarchy) Care Teams Sports Media Relationship Specialty Start Date End Date Ben Cisneros MD [address] [place] [address] [place] [address] PCP - General Family Medicine 05/09/18 documented as of this encounter
--- OUTSIDE RECORDS SUMMARY | 2023-09-09 22:15 | External Medical Summary | Summary of Care ---
Author Name Unknown Organization [facility] Address [address] [place] [address] Phone [phone] Care Team Providers Care Windows Systems Architect Name Role Phone Ben Cisneros MD Primary Care Provider [phone] Reason for Visit * Reason Onset Date Comments case management 05/04/2023 Encounter Details Date Type Department Care Team Description 05/04/2023 [place] Telephone Family Medicine [address] [phone] Jeanie Estrada, RN [address] [place], [place] [id number] case management Allergies Active Allergy Reactions Severity Noted Date [...] top 454 g 0 11/22/2021 Active Saline [place] 0.65 % Nasal Solution ([place]) Administer into nostril 1 [place] as needed for Congestion. 60 mL 5 [...] MORNING. 100 Tablet 1 03/06/2023 03/05/2024 Active Carvedilol 12.5 MG Oral Tablet ([place]g)Indications: [...] hypoxemia 04/08/2022 Overview: Wears 2 LPM via [place], DME: [facility] Chronic rhinitis 04/08/2022 Lung nodules 04/08/2022 [...] appointment. 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 Pt is scheduled 05/11/23 with Luh. * Telephone Encounter - Brenton Padilla PA-C - 05/04/2023 4:04 PM EDT Forwarded to Scheduling. Brenton Padilla PA-C Department of Cardiology * Telephone Encounter - Jeanie Estrada RN - 05/04/2023 3:59 PM EDT Patient on wait list for sooner cardiology appointment. Nothing available, unless you can help withthat? * Telephone Encounter - Brenton Padilla PA-C - 05/04/2023 3:26 PM EDT Difficult to make recommendations/changes having never evaluated the patient before. Will defer to PCP's expertise. Brenton Padilla PA-C Department of Cardiology * Telephone Encounter - Jeanie Estrada RN - 05/04/2023 2:04 PM EDT KRISTEN week #5. Called and spoke with patient. Alert, oriented, pleasant. Performing daily dry weights. -today's weight is 170.1 lbs -average the past 4-5 days has been 170-171 lbs. Related to edema of feet/ankles: -"very little fluid now" -wearing compression stockings for the past 3 days. "They are working great." -when I take them off at night, there is hardly any fluid there. -reports daughter got him 4 pairs. -reminded patient not to put them in washer/dryer. Only wash/rinse out in sink and hang over towel bar to dry. Reports his breathing is "pretty good" -denies problems -reports he has been going without his oxygen in the mornings -pulse ox in mornings, on room air, 94% -if walks to bathroom and back, does not drop Reports the only problem he is currently having, is with his eyes. -having a hard time focusing -was seen by the eye doctor -has new glasses coming, for a small change -he is hoping that fixes it, if now, he will let us know Discussed labs, after he saw the results on his MyG, and had questions. Discussed improvement in his heart failure test, the ProBNP; and worsening of kidney numbers. Informed patient that I had also reviewed them, and sent a message to PCP and to cardiology, to seeif we needed to change anything. Informed him I would call him back when I hear from them. Patient is agreeable with plan. Next planned contact will be with responses from PCP and cardiology, and then again next week. * Telephone Encounter - Ben Cisneros MD - 05/04/2023 2:01 PM EDT Keep doing same thing. * Telephone Encounter - Jeanie Estrada RN - 05/04/2023 1:37 PM EDT Due to patient's ProBNP being >10,000 on 04/24/23.... PCP increased patient's torsemide from 20 mg daily, to 100 mg daily, starting 04/25/23. Repeat labs show ProBNP improving, now just under 7,000 (6,969), but still elevated and....... BUN has increased from 27 to 35. Creat has increased from 1.6 to 2.0. GFR has decreased from 42 to 32. Sending message to PCP and cardiology. Please advise..... documented in this encounter Plan of Treatment Upcoming Encounters Date Type Specialty Care Team Description 06/12/2023 Laboratory Laboratory [place], [facility] [place] [address] [place] [address] [place] [address] 06/20/2023 Office Visit Family Medicine Ben Cisneros MD [address] [place] [address] [place] [address] 07/12/2023 Nurse Only Ancillary Rub[place], Nurse Annual Wellness [address] [place] [address] [place] [address] 08/03/2023 Telemedicine Nutrition Services Kelly Peraza RDN [address] [place] [address] 08/15/2023 Cardiac Studies Cardiac Studies 08/21/2023 Office Visit Cardiology Luh Garcia CRNP [address] [place] [address] 11/29/2023 Office Visit Dermatology Dalila West PA-C [address] [place] [address] [place] [address] Health Maintenance Due Date Last Done Comments COVID-19 Vaccine (4 - Moderna series) 03/04/2022 01/07/2022, 12/31/2020, 12/03/2020 CKD PHOS USE SMARTSET 62452 05/12/202305/02, 10/05/2020, 04/01/2020, Additional history exists Influenza Vaccine (FLU shot) (#1) 2023 07/08/2022, 06/17/2021, 07/22/2020, Additional history exists Depression Screening, Annual for Pts 12 and Over 07/08/2023 07/08/2022 DTaP,Tdap,and Td Vaccines (2 - Td or Tdap) 10/14/2023 10/14/2013, 07/22/2008 Albumin/Creatinine Ratio 02/15/2024 023, 04/07/2022, 10/05/2020, Additional history exists CKD HGB USE SMARTSET 60301 02/15/202402/14, 04/07/2022, 10/05/2020, Additional history exists Pneumococcal [...] patient or by statute hierarchy) Care Teams Windows Systems Architect Relationship Specialty Start Date End Date Ben Cisneros MD [address] [place] [address] [place] [address] PCP - General Family Medicine 05/09/18 documented as of this encounter
--- OUTSIDE RECORDS SUMMARY | 2023-09-09 22:15 | External Medical Summary ---
Author Name Unknown Address Unknown Organization K01:[facility] [address] [place] [address] Laboratory Report Ordering Provider Test Date Status TALI LAMBERT 06/12/2023 09:33:48 Final Observation Date Value Abnormality Reference (Units ) Status Vitamin B12 06/12/2023 09:33:48 [phone] (pg/mL) Final Performing Location [facility] - [address] [place] [address]
--- OUTSIDE RECORDS SUMMARY | 2023-09-09 22:15 | External Medical Summary | Summary of Care ---
Author Name Unknown Organization [facility] Address [address] [place] [address] Phone [phone] Care Team Providers Care Biomathematician Name Role Phone Arabella Maher MD Primary Care Provider Reason for Visit * Reason Onset Date Comments Medication Refill 05/18/2023 Encounter Details Date Type Department Care Team Description 05/18/2023 Refill Family Medicine [address] [phone] Arabella Maher MD [address] [place] [address] [place] [address] [place] workers pneumoconiosis (HCC) Allergies Active Allergy Reactions Severity Noted Date Comments No Known Drug Allergy 10/12/2000 documented as of this encounter (statuses as of 05/19/2023) Medications Medication Sig Dispensed Refills Start Date [...] top 454 g 0 11/22/2021 Active Saline [place] 0.65 % Nasal Solution ([place]) Administer into nostril 1 [place] as needed for Congestion. 60 mL 5 [...] morning. 30 Tablet 3 05/11/2023 Active Ipratropium [place] HFA 17 MCG/ACT Inhalation Aerosol Solution (Atrovent Hfa)Indications:[place] workers pneumoconiosis (HCC) Inhale 2 Puffs by mouth in the morning and 2 Puffs at noon and 2 Puffs in the evening and 2 Puffs before bedtime. INHALE TWO PUFFS BY MOUTH FOUR TIMES A DAY - MORNING, NOON, EVENING, AND BEFORE BEDTIME. 38.7 g 0 05/19/2023 Active Ipratropium [place] HFA 17 MCG/ACT Inhalation Aerosol Solution (Atrovent Hfa)Indications:[place] workers pneumoconiosis (HCC) INHALE TWO PUFFS BY MOUTH FOUR TIMES A DAY - MORNING, NOON, EVENING, AND BEFORE BEDTIME 12.9 g 5 03/06/2023 3 Discontinu ed(Refill) documented as of this encounter (statuses as of 05/19/2023) Active Problems Problem Noted Date Hospital discharge follow-up 04/10/2023 Chronic systolic heart failure 3 Interstitial pulmonary disease 3 Pleural effusion due to CHF (congestive heart failure) 04/10/2023 Medical home patient encounter 3 Nocturnal hypoxemia 04/08/2022 Overview: Wears 2 LPM via [place], DME: [facility] Chronic rhinitis [...] appointment. GENERAL OSTEOARTHROSIS INSOMNIA W SLEEP APNEA [place] workers pneumoconiosis Restrictive lung disease documented as of this encounter (statuses as of 05/19/2023) Resolved Problems Problem Noted Date Resolved Date [...] Rotator cuff rupture 05/22/2003 05/10/2018 LOC PRIM [id number] 05/22/2003 10/16/19 15 Prepatellar bursitis 05/22/2003 10/16/2014 Inflammation of sacroiliac joint 10/12/2001 10/16/2014 LOC PRIM OSTEOARTH-HAND 10/12/2001 10/16/19 15 Respiratory abnormality 07/31/20 09 Overview: ICD-10 update of inactive term Umbilical hernia 05/10/2018 Insomnia 10/16/2014 Overview: ICD-10 update of inactive term COPD, severity to be determined 07/07/2011 Allergic rhinitis 05/10/2018 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 07/31/20 09 Bilateral carpal tunnel syndrome 05/10/2018 CKD (chronic kidney disease), stage III 12/11/2018 Benign hypertension with CKD (chronic kidney disease) stage III 02/11/2021 Overview: Per CKD protocol documented as of this encounter (statuses as of 05/19/2023) Immunizations Name Administration Dates Next Due COVID-19 [...] encounter Miscellaneous Notes * Telephone Encounter - Jc Molina RP - 05/19/2023 9:19 AM EDTSigned Prescriptions: Disp Refills Ipratropium [place] HFA 17 MCG/ACT Inhalat*38.7 g 0 Sig: Inhale 2 Puffs by mouth in the morning and 2 Puffs at noon and 2 Puffs in the evening and 2 Puffs before bedtime. INHALE TWO PUFFS BY MOUTH FOUR TIMES A DAY - MORNING, NOON, EVENING, AND BEFORE BEDTIME.Authorizing Provider: ARABELLA MAHER User: JC MOLINA--------- * Telephone Encounter - WENDI Villafana Tech - 05/18/2023 12:00 PM EDT Pharmacy is requesting a 90-day supply, pre-edited RXs as such. Please review and approve if appropriate. DOES NOT HAVE 90 DAYS LEFT. Pending Prescriptions: Disp Refills Ipratropium [place] HFA 17 MCG/ACT Inhala*38.7 g 1 Si Puffs in the morning and 2 Puffs at noon and 2 Puffs in the evening and 2 Puffs before bedtime. INHALE TWO PUFFS BY MOUTH FOUR TIMES A DAY - MORNING, NOON, EVENING, AND BEFORE BEDTIME. Last Visit: 04/11/2023 (in office), Visit date not found (telemedicine) 06/20/2023 If no future appointments scheduled, and last appointment is greater than a year ago, please schedule patient for an appointment Last date the medication was ordered: 03/06 Patient Phone Numbers Labs: Lab Results Component Value Date/Time CREAT 2.0 (H) 05/03/2023 10:01 AM CREAT 1.5 (H) 10/05/2020 01:11 PM POTASSIUM 4.2 05/03/2023 10:01 AM POTASSIUM 4.8 10/05/2020 01:11 PM TSH [...] Specialty Care Team Description 06/12/2023 Laboratory Laboratory Artem Collier [address] [place] [address] [place] [address] 06/20/2023 Office Visit Family Medicine Arabella Maher MD [address] [place] [address] [place] [address] 07/12/2023 Nurse Only Ancillary Rubina, Nurse Annual Wellness [address] [place] [address] [place] [address] 08/03/2023 Telemedicine Nutrition Services Kelly ePraza, RDN [address] [place] [address] 08/15/2023 Cardiac Studies Cardiac Studies 08/21/2023 Office Visit Cardiology Luh Garcia, DAV [address] [place] [address] 11/29/2023 Office Visit Dermatology Dalila West PA-C [address] [place] [address] [place] [address] Health Maintenance Due Date Last Done Comments COVID-19 Vaccine (4 - Moderna series) 03/04/2022 01/07/2022, 12/31/2020, 12/03/2020 CKD PHOS USE SMARTSET 05956 05/12/202305/02, 10/05/2020, 04/01/2020, Additional history exists Influenza Vaccine (FLU shot) (#1) 2023 07/08/2022, 06/17/2021, 07/22/2020, Additional history exists Depression Screening, Annual for Pts 12 and Over 07/08/2023 07/08/2022 DTaP,Tdap,and Td Vaccines (2 - Td or Tdap) 10/14/2023 10/14/2013, 07/22/2008 Albumin/Creatinine Ratio 02/15/2024 023, 04/07/2022, 10/05/2020, Additional history exists CKD HGB USE SMARTSET 00703 02/15/202402/14, 04/07/2022, 10/05/2020, Additional history exists Pneumococcal [...] as of this encounter Visit Diagnoses Diagnosis [place] 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 Healthcare Agents on File Name Relationship Healthcare Agent Relationshi p Communication Susu Quezada Adult Child Health Care Repr esentative (appointed verbally by patient or by statute hierarchy) Care Teams Biomathematician Relationship Specialty Start Date End Date Arabella Maher MD [address] [place] [address] [place] [address] PCP - General Family Medicine 05/09/18 documented as of this encounter
--- OUTSIDE RECORDS SUMMARY | 2023-09-09 22:15 | External Medical Summary | Summary of Care ---
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 60 mL 5 [...] morning. 30 Tablet 3 05/11/2023 Active Ipratropium [place] HFA 17 MCG/ACT Inhalation Aerosol Solution (Atrovent Hfa)Indications:[place] workers pneumoconiosis (HCC) Inhale 2 Puffs by [...] hypoxemia 04/08/2022 Overview: Wears 2 LPM via [place], DME: [facility] Chronic rhinitis 04/08/2022 Lung nodules [...] appointment. 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 07/31/20 09 Bilateral carpal tunnel syndrome 05/10/2018 [...] encounter Miscellaneous Notes * Telephone Encounter - Venessa Cuellar LPN - 05/19/2023 12:51 PM EDT Follow-up Routine Attempted Phone Call First Attempt Call Outcome Left Voicemail/Message Plan To attempt another outreach documented in this encounter Plan of Treatment Upcoming Encounters Date Type Specialty Care Team Description 06/12/2023 Laboratory Laboratory [address] [place] [address] 06/20/2023 Office Visit Family Medicine Ben Cisneros MD [address] [place] [address] [place] [address] 07/12/2023 Nurse Only Ancillary Rubina Nurse Annual [facility] [address] [place] [address] [place] [address] 08/03/2023 Telemedicine Nutrition Services Kelly Peraaz RDN [address] [place] [address] 08/15/2023 Cardiac Studies Cardiac Studies 08/21/2023 Office Visit Cardiology Luh Garcia CRNP [address] [place] [address] 11/29/2023 Office Visit Dermatology Dalila West PA-C [address] [place] [address] [place] [address] Health Maintenance Due Date Last Done Comments COVID-19 Vaccine (4 - Moderna series) 03/04/2022 01/07/2022, 12/31/2020, 12/03/2020 CKD PHOS USE SMARTSET 65962 05/12/202305/02, 10/05/2020, 04/01/2020, Additional history exists Influenza Vaccine (FLU shot) (#1) 2023 07/08/2022, 06/17/2021, 07/22/2020, Additional history exists Depression Screening, Annual for Pts 12 and Over 07/08/2023 07/08/2022 DTaP,Tdap,and Td Vaccines (2 - Td or Tdap) 10/14/2023 10/14/2013, 07/22/2008 Albumin/Creatinine Ratio 02/15/2024 023, 04/07/2022, 10/05/2020, Additional history exists CKD HGB USE SMARTSET 76200 02/15/202402/14, 04/07/2022, 10/05/2020, Additional history exists Pneumococcal [...] Agents on File Name Relationship [facility] Communication Susu Quezada Adult Child Health Care Repr esentative (appointed verbally by patient or by statute hierarchy) Care Teams Ink Grinder Relationship Specialty Start Date End Date Ben Cisneros MD [address] [place] [address] [place] [address] PCP - General Family Medicine 05/09/18 documented as of this encounter
--- OUTSIDE RECORDS SUMMARY | 2023-09-09 22:15 | External Medical Summary | Summary of Care ---
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 60 mL 5 [...] morning. 30 Tablet 3 05/11/2023 Active Ipratropium [place] HFA 17 MCG/ACT Inhalation Aerosol Solution (Atrovent Hfa)Indications:[place] workers pneumoconiosis (HCC) INHALE TWO PUFFS BY MOUTH FOUR TIMES A DAY - MORNING, NOON, EVENING, AND BEFORE BEDTIME. 38.7 g 0 05/19/2023 Active documented as of this encounter (statuses as of 06/12/2023) Active Problems Problem Noted Date Hospital discharge follow-up 04/10/2023 Chronic systolic heart failure 3 Interstitial pulmonary disease 3 Pleural effusion due to CHF (congestive heart failure) 04/10/2023 Medical home patient encounter 3 Nocturnal hypoxemia 04/08/2022 Overview: Wears 2 LPM via [place], DME: [facility] Chronic rhinitis 04/08/2022 [...] appointment. GENERAL OSTEOARTHROSIS INSOMNIA W SLEEP APNEA [place] workers pneumoconiosis Restrictive lung disease documented as of this encounter (statuses as of 06/12/2023) Resolved Problems Problem Noted Date Resolved Date [...] Rotator cuff rupture 05/22/2003 05/10/2018 LOC PRIM [id number] 05/22/2003 10/16/19 15 Prepatellar bursitis 05/22/2003 10/16/2014 Inflammation of sacroiliac joint 10/12/2001 10/16/2014 LOC PRIM OSTEOARTH-HAND 10/12/2001 10/16/19 15 Respiratory abnormality 07/31/20 09 Overview: ICD-10 update of inactive term Umbilical hernia 05/10/2018 Insomnia 10/16/2014 Overview: ICD-10 update of inactive term COPD, severity to be determined 07/07/2011 Allergic rhinitis 05/10/2018 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 07/31/20 09 Bilateral carpal tunnel syndrome 05/10/2018 CKD (chronic kidney disease), stage III 12/11/2018 Benign hypertension with CKD (chronic kidney disease) stage III 02/11/2021 Overview: Per CKD protocol documented as of this encounter (statuses as of 06/12/2023) Immunizations Name Administration Dates Next Due COVID-19 [...] Encounters Date Type Specialty Care Team Description 06/20/2023 Office Visit Family Medicine Ben Cisneros MD [address] [place] [address] [place] [address] 07/12/2023 Nurse Only Ancillary [place], Nurse Annual Wellness [address] [place] [address] [place] [address] 08/03/2023 Telemedicine Nutrition Services Kelly Peraza, BARBARAN [address] [place] [address] 08/15/2023 Cardiac Studies Cardiac Studies 08/21/2023 Office Visit Cardiology Luh Garcia CRNP [address] [place] [address] 11/29/2023 Office Visit Dermatology Dalila West PA-C [address] [place] [address] [place] [address] Pending Results Name Type Priority Associated Diagnoses Date /Time VITAMIN B12 Lab Routine Chronic kidney disease, stage 3b (HCC) 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 06/12/2023 9:33 AM EDT BASIC METABOLIC PANEL Lab Routine HFrEF (heart failure with reduced ejection fraction) (HCC) 06/12/2023 9:33 AM EDT Health Maintenance Due Date Last Done Comments COVID-19 Vaccine (4 - Moderna series) 03/04/2022 01/07/2022, 12/31/2020, 12/03/2020 CKD PHOS USE SMARTSET 99490 05/12/202305/02, 10/05/2020, 04/01/2020, Additional history exists Influenza Vaccine (FLU shot) (#1) 2023 07/08/2022, 06/17/2021, 07/22/2020, Additional history exists Depression Screening 07/08/2023 07/08/2022 DTaP,Tdap,and Td Vaccines (2 - Td or Tdap) 10/14/2023 10/14/2013, 07/22/2008 Albumin/Creatinine Ratio 02/15/2024 023, 04/07/2022, 10/05/2020, Additional history exists CKD HGB USE SMARTSET 28731 02/15/202402/14, 04/07/2022, 10/05/2020, Additional history exists Pneumococcal [...] as of this encounter Visit Diagnoses Diagnosis Chronic kidney disease, stage 3b (HCC) half-way use of drug Encounter for long-term (current) use of other medications HFrEF (heart failure with reduced ejection fraction) (HCC) documented in this encounter Advance Directives Latest Code Status on File Code Status Date Activated Date Inactivated Comments Full Code 06/26/2019 12:28 PM 06/26/2019 5:13 PM This order reflects the patients wishes and were consensually agreed upon. Healthcare Agents on File Name Relationship Healthcare Agent [facility] p Communication Susu Quezada Adult Child Health Care Repr esentative (appointed verbally by patient or by statute hierarchy) Care Teams Wine Fermenter Relationship Specialty Start Date End Date Ben Cisneros MD [address] [place] [address] [place] [address] PCP - General Family Medicine 05/09/18 documented as of this encounter
--- OUTSIDE RECORDS SUMMARY | 2023-09-09 22:15 | External Medical Summary | Summary of Care ---
Author Name Unknown Organization [facility] Address [address] [place] [address] Phone [phone] Care Team Providers Care Kraft Mill Operator Name Role Phone Ben Cisneros MD Primary Care Provider Reason for Visit * Reason Onset Date Comments case management 05/30/2023 Encounter Details Date Type Department Care Team Description 05/30/2023 Nurse First Aid Telephone Family Medicine [address] [phone] Jeanie Estrada, RN [address] [place], [place] [phone] case management Allergies Active Allergy Reactions Severity [...] top 454 g 0 11/22/2021 Active Saline [place] 0.65 % Nasal Solution ([place]) Administer into nostril 1 [place] as needed for Congestion. 60 mL 5 [...] morning. 30 Tablet 3 05/11/2023 Active Ipratropium [place] HFA 17 MCG/ACT Inhalation Aerosol Solution (Atrovent Hfa)Indications:[place] workers pneumoconiosis (HCC) INHALE TWO PUFFS BY [...] hypoxemia 04/08/2022 Overview: Wears 2 LPM via [place], DME: [facility] Chronic rhinitis 04/08/2022 Lung nodules 04/08/2022 [...] appointment. 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 She will send another message of inquiry. * Telephone Encounter - Jeanie Estrada RN - 05/30/2023 5:59 PM EDT KRISTEN week #7. Received call from patient. Alert, oriented, pleasant. Had a missed call from Dionic[place], patient asking if it was CM? No. Patient reports when CM calls him, it comes up as possible spam - so he doesn't answer those calls,unless he recognizes my number - then he answers. Reports maybe that is why some other patient's don't answer calls? Reports overall condition as "doing alright". Patient pleased with how stable his weights have been since scale placed on a board. They have stayed in a 2 lbs weight range: 174.5 - 176.7 lbs. Patient currently getting ready to go out and mow his lawn. Uses a riding mower. Only does the trim around the house and main yard, then his son-in-law will come and finish the yard and do the field. Patient reports he is not getting any stronger, but he is not losing any more strength either, Justkind of holding his own. "I guess I should be happy about that." Reports he had home visit from Mara JIMENEZ. They discussed the diet the ada accommodation consultant had taught him about - but he cannot buy a whole containerof huckleberries, and only eat 14 at a time, and chance wasting the rest, OR buying a bag of grapes, and only eating 13 at a time, and allowing the rest to go to waste. He cannot afford to do that. Mara is to be contacting the anti-hunger program, through Nette Vera and the [facility] and check into the possibility of having food delivered to patient periodically. CM to check in with her to see where she is with this intervention. Denies any other issues or concerns at this time. Going to mow his grass. Next planned contact is for next week. documented in this encounter Plan of Treatment Upcoming Encounters Date Type Specialty Care Team Description 06/12/2023 Laboratory Laboratory [address] [place] [address] 06/20/2023 Office Visit Family Medicine Ben Cisneros MD [address] [place] [address] [place] [address] 07/12/2023 Nurse Only Ancillary Rubina, Nurse Annual Wellness [address] [place] [address] [place] [address] 08/03/2023 Telemedicine Nutrition Services Kelly Peraza RDN [address] [place] [address] 08/15/2023 Cardiac Studies Cardiac Studies 08/21/2023 Office Visit Cardiology Luh Garcia CRNP [address] [place] [address] 11/29/2023 Office Visit Dermatology Dalila West PA-C [address] [place] [address] [place] [address] Health Maintenance Due Date Last Done Comments COVID-19 Vaccine (4 - Moderna series) 03/04/2022 01/07/2022, 12/31/2020, 12/03/2020 CKD PHOS USE SMARTSET 55167 05/12/2023 0810/2021, 10/05/2020, 04/01/2020, Additional history exists Influenza Vaccine (FLU shot) (#1) 2023 07/08/2022, 06/17/2021, 07/22/2020, Additional history exists Depression Screening, Annual for Pts 12 and Over 07/08/2023 07/08/2022 DTaP,Tdap,and Td Vaccines (2 - Td or Tdap) 10/14/2023 10/14/2013, 07/22/2008 Albumin/Creatinine Ratio 02/15/2024 023, 04/07/2022, 10/05/2020, Additional history exists CKD HGB USE SMARTSET 66831 02/15/202402/14, 04/07/2022, 10/05/2020, Additional history exists Pneumococcal [...] patient or by statute hierarchy) Care Teams Kraft Mill Operator Relationship Specialty Start Date End Date Ben Cisneros MD [address] [place] [address] [place] [address] PCP - General Family Medicine 05/09/18 documented as of this encounter
--- OUTSIDE RECORDS SUMMARY | 2023-09-09 22:15 | External Medical Summary | Summary of Care ---
Author Name Unknown Organization [facility] Address [address] [facility] [place] [address] Phone [phone] Care Team Providers Care County Director Name Role Phone Ben Cisneros MD Primary Care Provider Reason for Visit * Reason Onset Date Comments Follow Up 05/22/2023 Encounter Details Date Type Department Care Team Description 05/22/2023 Telephone Care Coordination [address] [place] [address] Mara Crystal [address] [place] [address] Follow Up Allergies Active Allergy Reactions Severity Noted Date Comments No Known Drug Allergy 10/12/2000 documented as of this encounter (statuses as of 05/22/2023) Medications Medication Sig Dispensed Refills Start Date [...] top 454 g 0 11/22/2021 Active Saline [place] 0.65 % Nasal Solution ([place]) Administer into nostril 1 [place] as needed for Congestion. 60 mL 5 [...] morning. 30 Tablet 3 05/11/2023 Active Ipratropium [place] HFA 17 MCG/ACT Inhalation Aerosol Solution (Atrovent Hfa)Indications:[place] workers pneumoconiosis (HCC) Inhale 2 Puffs by mouth in the morning and 2 Puffs at noon and 2 Puffs in the evening and 2 Puffs before bedtime. INHALE TWO PUFFS BY MOUTH FOUR TIMES A DAY - MORNING, NOON, EVENING, AND BEFORE BEDTIME. 38.7 g 0 05/19/2023 Active documented as of this encounter (statuses as of 05/22/2023) Active Problems Problem Noted Date Hospital discharge follow-up 04/10/2023 Chronic systolic heart failure 3 Interstitial pulmonary disease 3 Pleural effusion due to CHF (congestive heart failure) 04/10/2023 Medical home patient encounter 3 Nocturnal hypoxemia 04/08/2022 Overview: Wears 2 LPM via [place], DME: [facility] Chronic rhinitis 04/08/2022 Lung nodules 04/08/2022 Overview: [...] appointment. GENERAL OSTEOARTHROSIS INSOMNIA W SLEEP APNEA [place] workers pneumoconiosis Restrictive lung disease documented as of this encounter (statuses as of 05/22/2023) Resolved Problems Problem Noted Date Resolved Date [...] Rotator cuff rupture 05/22/2003 05/10/2018 LOC PRIM [id number] 05/22/2003 10/16/19 15 Prepatellar bursitis 05/22/2003 10/16/2014 Inflammation of sacroiliac joint 10/12/2001 10/16/2014 LOC PRIM OSTEOARTH-HAND 10/12/2001 10/16/19 15 Respiratory abnormality 07/31/20 09 Overview: ICD-10 update of inactive term Umbilical hernia 05/10/2018 Insomnia 10/16/2014 Overview: ICD-10 update of inactive term COPD, severity to be determined 07/07/2011 Allergic rhinitis 05/10/2018 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 07/31/20 09 Bilateral carpal tunnel syndrome 05/10/2018 CKD (chronic kidney disease), stage III 12/11/2018 Benign hypertension with CKD (chronic kidney disease) stage III 02/11/2021 Overview: Per CKD protocol documented as of this encounter (statuses as of 05/22/2023) Immunizations Name Administration Dates Next Due COVID-19 mRNA, LNP-s, No Pre serve, 2-Dose Series (Moderna) 01/07/2022,12/31/2020,12/03/2020 Pneumococcal Conjugate Vacc, 13 Valent (Prevnar) 05/02/2015 Pneumococcal Polysaccharide PPV23 (Pneumovax) 10/08/2002 Season Influenza, Quad, PF, Adjuvanted, 65+ Yrs, [...] encounter Miscellaneous Notes * Telephone Encounter - Mara [facility] Patient Information Coordinator - 05/22/2023 4:05 PM EDT [facility] Phone Survey 1 Are you experiencing new shortness of breath when doing activities such as walking, housework or climbing stairs? Not worsening, just not getting better. "I don't feel like my heart is getting any better" States he has been checking his BP "5 to 10 times a day. To see if anything I'm doing is affecting it". States BP has been running in the 110s over 50-60. Advised patient to check approx 3 times per day, so as not to cause excess anxiety. States in the past he has drank coal when he feels dizzy, and it brings him out of it. States he isnot diabetic. Someone told him it may be the caffiene in the cola that makes him feel better. Have you noticed any NEW swelling in your feet or ankles? Are you weighing yourself? Have your weights increased? Daily weights via [employer] scale. "It jumps around sometimes, I can't explain it". Patient read off recent weights. Seems to vacillate within 1-3# on occasion. Reports he is voiding frequently. Have you had any changes in your medications or medication doses? Reports "water pill was decreased from 100 to 50 last week". New Rx for jardiance received this AM. Ordered by Luh Garcia, drum attendant. Do you have a decreased appetite? No. Are you having any new or increased difficulty sleeping because of your breathing? Continues sleepijng with 3 pillows - SOB with laying flat Are you feeling more tired, increased fatigue or low on energy more than normal? Yes Have you had to visit your doctor's office or the ER in the last month for an unscheduled visit? No - has been keeping scheduled appts. Have you had a new cough that will not go away? Have you had a new fever accompanying that cough? No In the last month have you had any feelings of hopelessness or increased anxiety? No Are there other changes in your health that you would like to talk to your nurse about? Would you like your nurse to contact you this week? Patient reports he has seen workflow developer since [facility] was to visit last week. Was given list of recipies to make. States he can't afford the ingredients ex: fish - $7 per pound - cooks down to nothing. Gets ACCESS card - $24/month "that doesn't buy my milk and orange juice for a month". Was told to mainly eat chicken and fish. States both have gone up in jeff, but he is buying it andcooking it himself. [facility] neighbors are continuing to bring him zucchini and he has been eating a lot of it. Also gets vouchers for [employer]. Has been going to get his fresh produce. States he signed up for Meals on Wheels - was told he may not get it within the next year d/t funding. Resides in [facility] Place referral to [facility] for anti hunger program. Reports dizziness if he stands for too long. Difficulty preparing meals because of this. Easily SOBwhen he is up and moving states, " but, I don't think I'm over exerting myself". Concerned something isn't right with his heart. States he was using his ATV to rake the yard today. "I didn't feel right in my chest." States he iseasily fatigued. No strength. "Anything that takes a little strength, I get dizzy". Also questioning if the dizziness is r/t any meds he is taking. Reviewed patient's three red flags: 1- increased shortness of breath/cough/wheezing/congestion. 2- sudden wt gain of 3 lbs overnight or 5 lbs in a week, increased edema/swelling. 3- falls or injuries. Encounter CC to RNCM and teams message sent. documented in this encounter Plan of Treatment Upcoming Encounters Date Type Specialty Care Team Description 06/12/2023 Laboratory Laboratory [place] [address] [place] [address] [place] [address] 06/20/2023 Office Visit Family Medicine Ben Cisneros MD [address] [place] [address] [place] [address] 07/12/2023 Nurse Only Ancillary [place], Nurse Annual Wellness [address] [place] [address] [place] [address] 08/03/2023 Telemedicine Nutrition Services Kelly Peraza RDN [address] [place] [address] 08/15/2023 Cardiac Studies Cardiac Studies 08/21/2023 Office Visit Cardiology Luh Garcia CRNP [address] [place] [address] 11/29/2023 Office Visit Dermatology Dalila West PA-C [address] [place] [address] [place] [address] Health Maintenance Due Date Last Done Comments COVID-19 Vaccine (4 - Moderna series) 03/04/2022 01/07/2022, 12/31/2020, 12/03/2020 CKD PHOS USE SMARTSET 72820 05/12/202305/02, 10/05/2020, 04/01/2020, Additional history exists Influenza Vaccine (FLU shot) (#1) 2023 07/08/2022, 06/17/2021, 07/22/2020, Additional history exists Depression Screening, Annual for Pts 12 and Over 07/08/2023 07/08/2022 DTaP,Tdap,and Td Vaccines (2 - Td or Tdap) 10/14/2023 10/14/2013, 07/22/2008 Albumin/Creatinine Ratio 02/15/2024 023, 04/07/2022, 10/05/2020, Additional history exists CKD HGB USE SMARTSET 59373 02/15/202402/14, 04/07/2022, 10/05/2020, Additional history exists Pneumococcal [...] as of this encounter Visit Diagnoses Diagnosis Dyslipidemia, goal LDL below 100- Primary Other and unspecified hyperlipidemia Restrictive lung disease Other diseases of lung, not elsewhere classified [place] workers pneumoconiosis (HCC) [place] workers' pneumoconiosis Pleural effusion due to CHF (congestive heart failure) (HCC) Congestive heart failure, unspecified Chronic systolic heart failure (HCC) Chronic systolic heart failure documented in this encounter Advance Directives Latest [...] patient or by statute hierarchy) Care Teams County Director Relationship Specialty Start Date End Date Ben Cisneros MD [address] [place] [address] [place] [address] PCP - General Family Medicine 05/09/18 documented as of this encounter
--- OUTSIDE RECORDS SUMMARY | 2023-09-09 22:15 | External Medical Summary | Summary of Care ---
Author Name Unknown Organization [facility] Address [address] [place] [address] Phone [phone] Care Team Providers Care Motor And Controls Tester Name Role Phone Ben Cisneros MD Primary Care Provider Reason for Visit * Reason Comments Adult Annual Wellness Visit, Subsequent Visit Encounter Details Date Type Department Care Team Description 07/12/2023 Nurse Only Ancillary [address] [place] [address] [facility], Nurse [address] [place] [address] Adult Annual Wellness Visit, Subsequent Visit Allergies [...] top 454 g 0 11/22/2021 Active Saline [place] 0.65 % Nasal Solution (Louisa) Administer into nostril 1 [place] as needed for Congestion. 60 mL 5 [...] morning. 30 Tablet 3 05/11/2023 Active Ipratropium [place] HFA 17 MCG/ACT Inhalation Aerosol Solution (Atrovent [...] hypoxemia 04/08/2022 Overview: Wears 2 LPM via [place], DME: [facility] Chronic rhinitis 04/08/2022 Lung nodules 04/08/2022 [...] appointment. GENERAL OSTEOARTHROSIS INSOMNIA W SLEEP APNEA [employer] pneumoconiosis Restrictive lung disease documented as [...] Rotator cuff rupture 05/22/2003 05/10/2018 LOC PRIM [id number] 05/22/2003 10/16/19 15 Prepatellar bursitis 05/22/2003 10/16/2014 Inflammation of sacroiliac joint 10/12/2001 10/16/2014 LOC PRIM OSTEOARTH-HAND 10/12/2001 10/16/19 15 Respiratory abnormality 07/31/20 09 Overview: ICD-10 update of inactive term Umbilical hernia 05/10/2018 Insomnia 10/16/2014 Overview: ICD-10 update of inactive term COPD, severity to be determined 07/07/2011 Allergic rhinitis 05/10/2018 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 NOS-IT LEAD 07/31/20 09 Bilateral carpal tunnel syndrome 05/10/2018 [...] Topic Date Due CKD PHOS USE SMARTSET 61349 05/12/2023 COVID-19 Vaccine ( season) 2023 Depression [...] in the morning. 30 Tablet 3 Ipratropium [place] HFA 17 MCG/ACT Inhalation Aerosol Solution (Atrovent Hfa) INHALE TWO PUFFS BY MOUTH FOUR TIMES A DAY - MORNING, NOON, EVENING, AND BEFORE BEDTIME. 38.7 g 0 Saline [place] 0.65 % Nasal Solution (Louisa) Administer into nostril 1 [place] as needed for Congestion. 60 mL 5 [...] 10.2 mg/dL Sincerely, Ben Cisneros MD 07/12/2023 [facility] Calendar (as of Visit date not [...] your insurance company to determine what's covered. [employer] is a great tool that helps you review your medical record online, including test results, doctor notes and your health summary. You can also schedule appointments with me and other members of your care team, request prescription refills and ask for advice related to your medical conditions at [email or web address]. documented in this encounter Progress Notes * [...] Acute bronchitis due to Rhinovirus 03/06/2023 admitted [facility] Acute respiratory failure (HCC) 03/28/2023 [facility], treated with SoluMedrol, ceftriaxone, azithromycin, culture grew stenotrophomonas maltophilia Allergic rhinitis 11/30/2000 Benign hypertension with CKD (chronic kidney disease) stage III (HCC) Benign neoplasm of colon 02/28/2008 adenomatous/ repeat colonoscopy in 3 yrs Bilateral carpal tunnel syndrome Bronchiectasis (HCC) CKD (chronic kidney disease), stage III (HCC) [employer]' pneumoconiosis (HCC) COPD, mild (HCC) Degenerative lumbar disc 05/13/2019 L4-5 Essential hypertension with goal blood pressure less than 140/90 Gastroesophageal reflux disease without esophagitis 08/18/2021 Generalized osteoarthritis 10/02/2000 Inflammation of sacroiliac joint (HCC) 10/12/2001 right side Insomnia with sleep apnea 10/02/2000 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 No significant pulmonaryedema. DESTROY LUMBAR SACRAL NERVE IMAGING ADD'L 09/28/2022 DESTROY LUMBAR SACRAL NERVE IMAGING ADD'L performed by Mayo Hernandez DO at [facility] DESTROY LUMBAR SACRAL NERVE IMAGING SINGLE 09/28/2022 DESTROY LUMBAR SACRAL NERVE IMAGING SINGLE performed by Mayo Hernandez DO at [facility] ECHO EXAM OF HEART (2D ECHO) 04/07/2022 normal LV size and function with mild concentric LVH, EF 60%, grade II diastolic dysfunction ECHO EXAM OF HEART (2D ECHO) 03/28/2023 large wall segment abnormality with EF 83700% mod MR ECHO, COMPLETE (2D), TRANS-THORACIC 02/20/2019 [...] Mayo Bossman Hernandez, DO at [facility] BLEPHAROPLASTY UPPER EYELID W/EXCESSIVE SKIN Bilateral 08/10/2022 [...] Admissions (within the last year): Hospital, Location: [facility] 03/2023 x 2 ER within 30 days: [...] in the morning. 30 Tablet 3 Ipratropium [place] HFA 17 MCG/ACT Inhalation Aerosol Solution (Atrovent Hfa) INHALE TWO PUFFS BY MOUTH FOUR TIMES A DAY - MORNING, NOON, EVENING, AND BEFORE BEDTIME. 38.7 g 0 Saline [place] 0.65 % Nasal Solution (Louisa) Administer into nostril 1 [place] as needed for Congestion. 60 mL 5 No current facility-administered medications for this visit. Patient Active Problem List Diagnosis Code GENERAL OSTEOARTHROSIS M15.9 INSOMNIA W SLEEP APNEA G47.00, G47.30 [employer] pneumoconiosis (HCC) J60 ADVANCE DIRECTIVE INFORMATION Hx of nonmelanoma skin cancer Z85.828 Primary hypertension I10 Restrictive lung disease J98.4 History of prostate cancer Z85.46 Degenerative lumbar disc M51.36 Dyslipidemia, goal LDL below 100 E78.5 Chronic kidney disease, stage 3b ([facility]) N18.32 Gastroesophageal reflux disease without esophagitis K21.9 Nocturnal hypoxemia G47.34 Chronic rhinitis J31.0 Lung nodules R91.8 History of tobacco use Z87.891 Medical home patient encounter Z00.8 Chronic systolic heart failure ([facility]) I50.22 Interstitial pulmonary disease ([facility]) J84.9 Pleural effusion due to CHF (congestive heart failure) ([facility]) I50.9 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 Patient stood from sitting position and walked approximately 10 feet, returned and sat down. Total time for bza-bx-wze-go test was 9 seconds. Fzh-Sf-kye-Go Test completed? Yes Gender Specific Preventative Plan: Health Maintenance Topic Date Due CKD PHOS USE SMARTSET 78435 05/12/2023 COVID-19 Vaccine (2022- season) 2023 Depression Screening 07/08/2023 DTaP,Tdap,and Td Vaccines (2 - Td or Tdap) 10/14/2023 Albumin/Creatinine Ratio 02/15/2024 CKD HGB USE SMARTSET 71883 02/15/2024 Influenza Vaccine (FLU shot) Completed Zoster [...] Component Value Date/Time LDL CHOLESTEROL (CALCULATED) - [facility] 116 04/07/2022 12:40 PM LDL CHOLESTEROL (CALCULATED) - [facility] 128 04/01/2020 08:00 AM LDL CHOLESTEROL (DIRECT MEASURE) - [facility] NOT APPLICABLE 04/01/2020 08:00 AM Gastroesophageal reflux [...] effusion due to CHF (congestive heart failure) ([facility]) Primary hypertension - Med reconciliation completed and compliance discussed. - pt to continue present medications. BP Readings from Last 3 Encounters: 07/12/23 100/64 06/20/23 110/56 05/11/23 122/64 Patient states someone checked into [facility] and they told him it would be a year before he would hear something. I will call [facility]. I did call and leave message for Mady at [facility] to call me back re Meals [...] from the original note were not included. [address] Eating Heart-Healthy Foods Eating has a big [...] paprika, pepper, and rick. Last Reviewed Date: 09/01/202219999836-5470 The [employer]. All rights reserved. This information is not intended as a substitute for professional medical care. Always follow your healthcare professional's instructions. * Pt Handout (on AVS) - Yasmine Christy RN - 07/12/2023 10:48 AM EDT Images from the original note were not included. 459[address] 5 Steps for Eating Healthier Changing the [...] size of your fist. Last Reviewed Date: 09/01/202219993032-4429 The [employer]. All rights reserved. This information is not intended as a substitute for professional medical care. Always follow your healthcare professional's instructions. documented in this encounter Plan of Treatment Upcoming Encounters Date Type Specialty Care Team Description 08/03/2023 Telemedicine Nutrition Services Kelly Peraza, DARCY [address] [place] [address] 08/15/2023 Cardiac Studies Cardiac Studies 08/21/2023 Office Visit Cardiology Luh Garcia CRNP [address] [place] [address] 11/29/2023 Office Visit Dermatology Dalila West PA-C [address] [place] [address] [place] [address] 12/21/2023 Office Visit Family Medicine Claude Mata MD [address] [place] [address] [place] [address] 07/15/2024 Nurse Only Ancillary Rubina, Nurse Annual Wellness [address] [place] [address] [place] [address] Health Maintenance Due Date Last Done Comments CKD PHOS USE SMARTSET 56352 05/12/202305/02, 10/05/2020, 04/01/2020, Additional history exists COVID-19 Vaccine ( season) 2023 01/07/2022, 12/31/2020, 12/03/2020 Depression Screening 07/08/2023 07/12/2023 DTaP,Tdap,and Td Vaccines (2 - Td or Tdap) 10/14/2023 10/14/2013, 07/22/2008 Albumin/Creatinine Ratio 02/15/2024 023, 04/07/2022, 10/05/2020, Additional history exists CKD HGB USE SMARTSET 40368 02/15/202402/14, 04/07/2022, 10/05/2020, Additional history exists Pneumococcal [...] Agents on File Name Relationship Healthcare Agent [facility] Communication Susu Quezada Adult Child Health Care Repr esentative (appointed verbally by patient or by statute hierarchy) Care Teams Motor And Controls Tester Relationship Specialty Start Date End Date Ben Cisneros MD [address] [place] [address] [place] [address] PCP - General Family Medicine 05/09/18 documented as of this encounter
--- OUTSIDE RECORDS SUMMARY | 2023-09-09 22:15 | External Medical Summary | Summary of Care ---
Author Name Unknown Organization [facility] Address [address] [place] [address] Phone [phone] Care Team Providers Care Gas Controller Name Role Phone Ben Cisneros MD Primary Care Provider Reason for Visit * Reason Onset Date Comments Re-Check Medication Administration 06/20/2023 Flu an d/or Pneumo Inj Encounter Details Date Type Department Care Team Description 06/20/2023 Office Visit Family Medicine [address] [phone] Ben Cisneros MD [address] [place] [address] [place] [phone] Chronic kidney disease, stage 3b (HCC)*; Need for prophylactic vaccination and inoculation against influenza; 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 60 mL 5 [...] morning. 30 Tablet 3 05/11/2023 Active Ipratropium [place] HFA 17 MCG/ACT Inhalation Aerosol Solution (Atrovent Hfa)Indications:[place] workers pneumoconiosis (HCC) INHALE TWO PUFFS BY MOUTH FOUR TIMES A DAY - MORNING, NOON, EVENING, AND BEFORE BEDTIME. 38.7 g 0 05/19/2023 Active documented as of this encounter (statuses as of 06/20/2023) Active Problems Problem Noted Date Hypertensive heart and kidne y disease with chronic systolic congestive heart failure and stage 3b chronic kidney disease 06/12/2023 Chronic systolic heart failure 3 Interstitial pulmonary disease 3 Pleural effusion due to CHF (congestive heart failure) 04/10/2023 Medical home patient encounter 3 Nocturnal hypoxemia 04/08/2022 Overview: Wears 2 LPM via [place], DME: [facility] Chronic rhinitis 04/08/2022 [...] appointment. GENERAL OSTEOARTHROSIS INSOMNIA W SLEEP APNEA [place] workers pneumoconiosis Restrictive lung disease documented as of this encounter (statuses as of 06/20/2023) Resolved Problems Problem Noted Date Resolved Date [...] Rotator cuff rupture 05/22/2003 05/10/2018 LOC PRIM [id number] 05/22/2003 10/16/19 15 Prepatellar bursitis 05/22/2003 10/16/2014 Inflammation of sacroiliac joint 10/12/2001 10/16/2014 LOC PRIM OSTEOARTH-HAND 10/12/2001 10/16/19 15 Respiratory abnormality 07/31/20 09 Overview: ICD-10 update of inactive term Umbilical hernia 05/10/2018 Insomnia 10/16/2014 Overview: ICD-10 update of inactive term COPD, severity to be determined 07/07/2011 Allergic rhinitis 05/10/2018 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 07/31/20 09 Bilateral carpal tunnel syndrome 05/10/2018 CKD (chronic kidney disease), stage III 12/11/2018 Benign hypertension with CKD (chronic kidney disease) stage III 02/11/2021 Overview: Per CKD protocol documented as of this encounter (statuses as of 06/20/2023) Immunizations Name Administration Dates Next Due COVID-19 [...] Sign Reading Time Taken Comments Blood Pressure 110/56 06/20/2023 9:49 AM EDT Pulse 67 06/20/2023 9:49 AM EDT Temperature 35.7 C (96.3 F) 06/20/2023 9:49 AM ED T Respiratory Rate 18 06/20/2023 9:49 AM EDT Oxygen Saturation 95% 06/20/2023 9:49 AM EDT Inhaled Oxygen Concentration - - Weight 82.7 kg (182 lb 5 oz) 06/20/2023 9:49 AM EDT Height - - Body Mass Index 23.41 04/26/2023 11:03 AM EDT documented in this encounter Progress Notes * Katharina Cooper LPN - 06/20/2023 9:51 AM EDT PRE - ADMINISTRATION DOCUMENTATION Are you experiencing any cold symptoms or fever? No Have you had Guillain-Andover Syndrome (an illness that causes paralysis) within the last 6 weeks? No Have you had the flu shot in the past? YES Have you ever had a reaction to the flu shot? No Katharina Cooper LPN, 06/20/2023 9:51 AM Immunization Administration Documentation Time Out Procedure Performed: Yes Patient Identified (Ask Name/Date of ): Yes Does the patient have a fever greater than 101 degrees today? No Patient allergic to latex? No VFC Stock: No Immunization(s) verified: Yes, Immunization Name: Flu, VIS Sheet(s) given: Yes Verified Side and Site: Yes Verified Shot(s) with Parent(s)/Patient: Yes * Ben Cisneros MD - 06/20/2023 9:47 AM EDT Ned gets dizzy when he gets up and has concerns about heart failure or dehydration. Right now Ithink he is at his dry weight. Down from 204. I reviewed his labs with him and for the most part they are stable. He says he did not have heart disease until he had Covid shots. He weighs himself daily and the weight correlates well with ours. Denies nausea, vomiting, or diarrhea. Denies fevers, chills or sweats. He is on 50 ounce fluid restriction. Health Maintenance addressed. Had the Coronovirus vaccine, 3 doses Past Medical History: Diagnosis Date Acute bronchitis due to Rhinovirus 03/06/2023 admitted [facility] Acute respiratory failure (HCC) 03/28/2023 [facility], treated with SoluMedrol, ceftriaxone, azithromycin, culture grew stenotrophomonas maltophilia Allergic rhinitis 11/30/2000 Benign hypertension with CKD (chronic kidney disease) stage III ([facility]) Benign neoplasm of colon 02/28/2008 adenomatous/ repeat colonoscopy in 3 yrs Bilateral carpal tunnel syndrome Bronchiectasis (HCC) CKD (chronic kidney disease), stage III ([facility]) Jenkins workers' pneumoconiosis ([facility]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, mild ([facility]) Degenerative lumbar disc 05/13/2019 L4-5 Essential hypertension with goal blood pressure less than 140/90 Gastroesophageal reflux disease without esophagitis 08/18/2021 Generalized osteoarthritis 10/02/2000 Inflammation of sacroiliac joint (HCC) 10/12/2001 right side Insomnia with sleep apnea 10/02/2000 Interstitial emphysema ([facility]) Osteoarthritis of hand 10/12/2001 right hand Pneumonia due to hemophilus influenzae ([facility]) 08/16/2022 Prepatellar bursitis 05/22/2003 Restrictive lung disease [...] by Mary Carmen Aguayo DO at OR [facility] CLAVICULE FX W/O MANIP 1956 COLONOSCOPY W/ LESION REMOVAL, SNARE 02/28/2008 polyps x 2 removed/adenomatous/repeat in 3 yrs CTA CHEST NON-CORONARY W CONTRAST 02/21/2023 stable interstitial disease, no PE, New trace bilateral pleural effusions. No significant pulmonaryedema. DESTROY LUMBAR SACRAL NERVE IMAGING ADD'L 09/28/2022 DESTROY LUMBAR SACRAL NERVE IMAGING ADD'L performed by Mayo Hernandez DO at OR [facility] DESTROY LUMBAR SACRAL NERVE IMAGING SINGLE 09/28/2022 DESTROY LUMBAR SACRAL NERVE IMAGING SINGLE performed by Mayo Hernandez DO at OR [facility] ECHO EXAM OF HEART (2D ECHO) 04/07/2022 normal LV size and function with mild concentric LVH, EF 60%, grade II diastolic dysfunction ECHO EXAM OF HEART (2D ECHO) 03/28/2023 large wall segment abnormality with EF 02644% mod MR ECHO, COMPLETE (2D), TRANS-THORACIC 02/20/2019 normal LV size and function, EF 65-69%, grade II diastolic dysfunction. 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 INJECT DX/THER SUBSTANCE INTERLAMINAR LUMBAR/SACRAL W IMAGE GUIDE 01/06/2022 INJECTION SPINE LUMBAR OR SACRAL performed by Mayo Hernandez DO at OR [facility] INSERTION OF LENS PROSTHESIS 10/01/2015 right eye -lino L-/S-SPINE PARAVERTEBRAL FACET INJ,1 LEVEL 08/17/2022 L-/S-SPINE PARAVERTEBRAL FACET INJ, 1 LEVEL performed by Mayo Hernandez DO at OR [facility] L-/S-SPINE PARAVERTEBRAL FACET INJ,1 LEVEL 09/14/2022 L-/S-SPINE PARAVERTEBRAL FACET INJ, 1 LEVEL performed by Mayo Hernandez DO at OR [facility] L-/S-SPINE PARAVERTEBRL FACET INJ,2 LEVELS 08/17/2022 L-/S-SPINE PARAVERTEBRAL FACET INJ, 2 LEVELS performed by Mayo Hernandez, DO at OR [facility] L-/S-SPINE PARAVERTEBRL FACET INJ,2 LEVELS 09/14/2022 L-/S-SPINE PARAVERTEBRAL FACET INJ, 2 LEVELS performed by Mayo Hernandez, DO at OR [facility] [place] BLEPHAROPLASTY UPPER EYELID W/EXCESSIVE SKIN Bilateral 08/10/2022 Dr. 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 Tobacco Use Smoking status: Former Packs/day: 0.25 Years: 5.00 Pack years: 1.25 Types: Cigarettes Quit date: 05/19/1960 Years since quittin.1 Smokeless tobacco: Never Vaping Use Vaping Use: Never used Substance and Sexual Activity Alcohol use: Not Currently Alcohol/week: 2.0 standard drinks Types: 2 12 oz of beer per week Comment: weekly Drug use: No Sexual activity: Yes Partners: Female Other Topics Concern Not on file Social History Narrative In 03/13/10 Social Determinants of Health Financial Resource Strain: Not on file Food Insecurity: No Food Insecurity Worried About Running Out of Food in the Last Year: Never true Ran Out of Food in the Last Year: Never true Transportation Needs: Not on file Physical Activity: Not on file Stress: Not on file Social Connections: Not on file Intimate Partner Violence: Not on file Housing Stability: Not on file Current Outpatient Medications Medication Sig Dispense Refill ASPIRIN 81 MG PO TABS one tab by mouth daily 0 0 CENTRUM PO TABS 1 tablet a day oxygen IN GAS Use 2 L/min(Oxygen) as directed at bedtime. Loratadine 10 MG Oral Capsule Take 1 Capsule by mouth in the morning. Vitamin B-12 100 MCG Oral Tablet (vitamin B-12) Take 1 Tablet by mouth in the morning. Triamcinolone Acetonide 0.1 % External Ointment (Aristocort) apply to rash on lower legs 2 times daily with cerave cream on top 454 g 0 Saline [place] 0.65 % Nasal Solution ([place]) Administer into nostril 1 [place] as needed for Congestion. 60 mL 5 [...] in the morning. 30 Tablet 3 Ipratropium [place] HFA 17 MCG/ACT Inhalation Aerosol Solution (Atrovent Hfa) INHALE TWO PUFFS BY MOUTH FOUR TIMES A DAY - MORNING, NOON, EVENING, AND BEFORE BEDTIME. 38.7 g 0 No current facility-administered medications for this visit. Immunization History Administered Date(s) Administered COVID-19 mRNA, LNP-s, No Preserve, 2-Dose Series (Moderna) 12/03/2020, 12/31/2020, 01/07/2022 Pneumococcal Conjugate Vacc, 13 Valent (Prevnar) 05/02/2015 Pneumococcal Polysaccharide PPV23 (Pneumovax) 10/08/2002 Season Influenza, Quad, PF, Adjuvanted, 65+ Yrs, IM (FLUAD) 07/22/2020 Seasonal Influenza, PF, 6 mons & Above, IM , (Flulaval) 07/13/2017, 06/28/2018 Seasonal Influenza, Quadrivalent Hd (Fluzone Hd) 06/17/2021, 07/08/2022 Seasonal Influenza, Quadrivalent, No Preserve, IM 06/29/2015, 06/22/2016 Seasonal Influenza, Split, IIV3, With Preserve, Inj 07/29/2002, 09/19/2003, 07/05/2005, 07/06/2006,07/17/2007, 07/22/2008, 07/31/2009, 06/22/2010, 06/21/2011, 06/19/2012, 06/18/2013, 06/19/2014 Seasonal Influenza, Trivalent, Adjuvanted, 65+ yrs 06/25/2019 TD, Preservative Free 07/22/2008 TDAP (age 10 and older)(Boostrix) 10/14/2013 Zoster Vaccine Recombinant (Shingrix) 07/05/2021, 10/07/2021 Results for orders placed or performed in visit on 04/07/22 LIPID PANEL WITH DIRECT LDL IF TG IS HIGH Result Value Ref Range Triglycerides 282 (H) <=174 mg/dL Cholesterol 210 (H) <200 mg/dL HDL Cholesterol 38 (L) >39 mg/dL Non-HDL Cholesterol 172 (H) <=159 mg/dL LDL Cholesterol 116 <=129 mg/dL Results for orders placed or performed in visit on 06/12/23 BASIC METABOLIC PANEL Result Value Ref Range [...] mg/dL Calcium 9.6 8.4 - 10.2 mg/dL Hemoglobin Results: Lab Results Component Value Date/Time [facility] - [facility] 13.1 (L) 02/14/2023 09:30 AM [facility] - [facility] 14.1 04/07/2022 12:40 PM [facility] - [facility] 13.3 (L) 10/05/2020 01:11 PM [facility] - [facility] 14.1 06/19/2019 10:04 AM [facility] - [facility] 14.7 05/13/2019 10:20 AM O: Blood pressure 110/56, pulse 67, temperature 35.7 C (96.3 F), temperature source Tympanic, resp. rate 18, weight 82.7 kg (182 lb 5 oz), SpO2 95 %.g . Neck is supple without adenopathy or thyromegaly. Chest is symmetrical and moves normally. The lungs are clear without wheezes, rales, rhonchior rubs, and the heart is regular without murmurs or gallops, or ectopy. PMI not displaced. No pedal edema. 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 Follow Up: Return in about 6 months (around 12/19/2023) for Clinic Visit. | For: Clinic Visit documented in this encounter Nursing Notes * Katharina Cooper LPN - 06/20/2023 9:47 AM EDT Check up Dizziness most of the time. documented in this encounter Plan of Treatment Upcoming Encounters Date Type Specialty Care Team Description 07/12/2023 Nurse Only Ancillary Rubina, Nurse Annual Wellness [address] [place] [address] [place] [phone] 08/03/2023 Telemedicine Nutrition Services Kelly Peraza, RDN [address] [place] [address] 08/15/2023 Cardiac Studies Cardiac Studies 08/21/2023 Office Visit Cardiology Luh Garcia CRNP [address] [place] [address] 11/29/2023 Office Visit Dermatology Dalila West PA-C [address] [place] [address] [place] [phone] 12/21/2023 Office Visit Family Medicine Claude Mata MD [address] [place] [address] [place] [phone] Health Maintenance Due Date Last Done Comments COVID-19 Vaccine (4 - Moderna series) 03/04/2022 01/07/2022, 12/31/2020, 12/03/2020 CKD PHOS USE SMARTSET 63688 05/12/202305/02, 10/05/2020, 04/01/2020, Additional history exists Depression Screening 07/08/2023 07/08/2022 DTaP,Tdap,and Td Vaccines (2 - Td or Tdap) 10/14/2023 10/14/2013, 07/22/2008 Albumin/Creatinine Ratio 02/15/2024 023, 04/07/2022, 10/05/2020, Additional history exists CKD HGB USE SMARTSET 55375 02/15/202402/14, 04/07/2022, 10/05/2020, Additional history exists Pneumococcal [...] Diagnoses Diagnosis Chronic kidney disease, stage 3b (HCC)- Primary Need for prophylactic vaccination and inoculation against influenza 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 Healthcare Agents on File Name Relationship Healthcare Agent Relationshi p Communication Susu Michelejohannaeunice Adult Child Health Care Repr esentative (appointed verbally by patient or by statute hierarchy) Care Teams Gas Controller Relationship Specialty Start Date End Date Ben Cisneros MD [address] [place] [address] [place] [phone] PCP - General Family Medicine 05/09/18 documented as of this encounter"
--- OUTSIDE RECORDS SUMMARY | 2023-09-09 22:15 | External Medical Summary | Summary of Care ---
Author Name Unknown Organization [facility] Address [address] [place] [address] Phone [phone] Care Team Providers Care Diesel Technology Instructor Name Role Phone Ben Cisneros MD Primary Care Provider Reason for Visit * Reason Onset Date Comments case management 06/20/2023 Encounter Details Date Type Department Care Team Description 06/20/2023 Cutter Operator Helper Telephone Family Medicine [address] [phone] Jeanie Estrada, RN [address] [place], [place] [phone] case management Allergies Active Allergy Reactions Severity [...] top 454 g 0 11/22/2021 Active Saline [place] 0.65 % Nasal Solution ([place]) Administer into nostril 1 [place] as needed for Congestion. 60 mL 5 [...] morning. 30 Tablet 3 05/11/2023 Active Ipratropium [place] HFA 17 MCG/ACT Inhalation Aerosol Solution (Atrovent Hfa)Indications:[place] workers pneumoconiosis (HCC) INHALE TWO PUFFS BY [...] hypoxemia 04/08/2022 Overview: Wears 2 LPM via [place], DME: [facility] Chronic rhinitis 04/08/2022 Lung [...] appointment. 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 Transition to Tier 3. Spoke with patient. Alert, oriented, pleasant. Asking about last weeks lab results. -he saw the results in his MyG, but wanted further explanation. -explained to patient that labs were pretty similar to what they were at the beginning of May, no real change. -patient asking if they show fluid on his lungs? -explained to patient that is not seen on blood work, that would need a chest xray. -patient asked about dehydration, as he is still following his 50 oz/day fluid restriction. -informed him labs have not really changed, they are stable, so he should keep doing what he has been doing, unless cardiology or PCP tells him different. -agreeable with plan. -asked patient if labs were fasting, as his blood glucose was 167. -reports he had breakfast about 8 AM, and had labs around 9:30 AM. He had honey nut cheerios for breakfast. "I eat the same thing everyday." Discussed daily dry weights. -patient using [facility] telephonic scales. -weights stable between 175 - 176 lbs. -reinforced a sudden 3 lbs gain overnight or 5 lbs gain in a week - would be 'water weight' not 'fat weight'. That could indicate you were retaining fluid. -patient verbalizes understanding. Patient reports chest heaviness with exertion. -mostly occurs with going up/down the stairs. -checks blood pressure when occurs. Usually around 107/54. -asking if that is from his lungs or his heart? -discussed heart failure and his EF of 40%. Patient appreciates the explanations. Patient asks if his heart failure could be due to the covid vaccines? -told him I couldn't tell him, and that he may never get an answer to that. He could discuss that with cardiology. Reports he never had any issues with his heart until after his covid vaccine. -PCP had him get his flu vaccine today, and encouraged him to get the new covid vaccine. He is leary about that, because if the other vaccines caused this, would another dose "do me in?" Recommended he discuss the pros and cons with his glost tile sorter. Patient also reports dizziness if he looks up, tilts his head backwards. -discussed carotid arteries. -reports he had them checked and they were 75% open and he was told that was good for his age. -told him that could have changed some since then, but they don't usually do anything about that unless they are more than 50% blocked, I believe. -just advised extra caution with doing anything where he had to tip his head up, as we didn't want him to fall. Reports he does take caution. Asked about the [employer], and if she found out anything about the fresh fruits and vegetable delivery. -informed him I had spoken to Mara, and she said they do not do the delivery anymore. Now you haveto go the [employer] on the , to pick it up. Reports he tried that once. He was in line for 2 hours. He was near the end and didn't get a lot. I told him I could find out the next dates for him and maybe he could go down earlier? He said he has a nephew that works there and he could find that out himself if he wanted to do that. He was hoping more for delivery. Denies any current issues, needs, or concerns - other than his usual anxieties about his health. plans to transition patient to Tier 3, so next planned contact would be in about a month. documented in this encounter Plan of Treatment Upcoming Encounters Date Type Specialty Care Team Description 07/12/2023 Nurse Only Ancillary Rubina Nurse Annual Wellness [address] [place] [address] [place] [phone] 08/03/2023 Telemedicine Nutrition Services Kelly Peraza, BARBARAN [address] [place] [address] 08/15/2023 Cardiac Studies Cardiac Studies 08/21/2023 Office Visit Cardiology Luh Garcia CRNP [address] [place] [address] 11/29/2023 Office Visit Dermatology Dalila West PA-C [address] [place] [address] [place] [phone] 12/21/2023 Office Visit Family Medicine Claude Mata MD [address] [place] [address] [place] [phone] Health Maintenance Due Date Last Done Comments COVID-19 Vaccine (4 - Moderna series) 03/04/2022 01/07/2022, 12/31/2020, 12/03/2020 CKD PHOS USE SMARTSET 33988 05/12/202305/02, 10/05/2020, 04/01/2020, Additional history exists Depression Screening 07/08/2023 07/08/2022 DTaP,Tdap,and Td Vaccines (2 - Td or Tdap) 10/14/2023 10/14/2013, 07/22/2008 Albumin/Creatinine Ratio 02/15/2024 023, 04/07/2022, 10/05/2020, Additional history exists CKD HGB USE SMARTSET 51960 02/15/202402/14, 04/07/2022, 10/05/2020, Additional history exists Pneumococcal [...] patient or by statute hierarchy) Care Teams Diesel Technology Instructor Relationship Specialty Start Date End Date Ben Cisneros MD [address] [place] [address] [place] [phone] PCP - General Family Medicine 05/09/18 documented as of this encounter
--- OUTSIDE RECORDS SUMMARY | 2023-09-09 22:15 | External Medical Summary | Summary of Care ---
Author Name Unknown Organization [facility] Address [address] [facility] [place] [address] Phone [phone] Care Team Providers Care Dining Room Manager Name Role Phone Ben Cisneros MD Primary Care Provider Reason for Visit * Reason Onset Date Comments Follow Up 05/22/2023 Encounter Details Date Type Department Care Team Description 05/22/2023 Telephone Care Coordination [address] [place] [address] Mara Crystal [address] [place] [address] Follow Up Allergies Active Allergy Reactions Severity [...] top 454 g 0 11/22/2021 Active Saline [place] 0.65 % Nasal Solution ([place]) Administer into nostril 1 [place] as needed for Congestion. 60 mL 5 [...] morning. 30 Tablet 3 05/11/2023 Active Ipratropium [place] HFA 17 MCG/ACT Inhalation Aerosol Solution (Atrovent Hfa)Indications:[place] workers pneumoconiosis (HCC) Inhale 2 Puffs by [...] Overview: Wears 2 LPM via [place], DME: [facility] Chronic rhinitis 04/08/2022 Lung nodules 04/08/2022 Overview: [...] appointment. GENERAL OSTEOARTHROSIS INSOMNIA W SLEEP APNEA [place] workers pneumoconiosis Restrictive lung disease documented as [...] Rotator cuff rupture 05/22/2003 05/10/2018 LOC PRIM [id number] 05/22/2003 10/16/19 15 Prepatellar bursitis 05/22/2003 10/16/2014 Inflammation of sacroiliac joint 10/12/2001 10/16/2014 LOC PRIM OSTEOARTH-HAND 10/12/2001 10/16/19 15 Respiratory abnormality 07/31/20 09 Overview: ICD-10 update of inactive term Umbilical hernia 05/10/2018 Insomnia 10/16/2014 Overview: ICD-10 update of inactive term COPD, severity to be determined 07/07/2011 Allergic rhinitis 05/10/2018 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 Ordered by Luh Garcia, color artist. Do you have a decreased appetite? No. [...] this week? Patient reports he has seen mri specialist since [facility] was to visit last week. Was given [...] he is buying it andcooking it himself. [facility] neighbors are continuing to bring him samanthai and he has been eating a lot of it. Also gets vouchers for [employer]. Has been going to get his fresh produce. Is there a way to get more on his ACCESS card? States he signed up for Meals on Wheels - was told he may not get it within the next year d/t funding. Resides in [facility] referral to [facility] for anti hunger program. Reports dizziness if he stands for too long. Difficulty preparing meals because of this. Easily SOBwhen he is up and moving states, "I don't think I'm over exerting myself". States he was using his ATV to rake the yard over the weekend. "I didn't feel right in my chest." States he is easily fatigued. No strength. "Anything that takes a little strength, I get dizzy". Alsoquestioning if the dizziness is r/t any meds he is taking. documented in this encounter Plan of Treatment Upcoming Encounters Date Type Specialty Care Team Description 06/12/2023 Laboratory Laboratory [address] [place] [address] 06/20/2023 Office Visit Family Medicine Ben Cisneros MD [address] [place] [address] [place] [address] 07/12/2023 Nurse Only Ancillary Rubina, Nurse Annual Wellness [address] [place] [address] [place] [address] 08/03/2023 Telemedicine Nutrition Services Kelly Peraza, RDN [address] [place] [address] 08/15/2023 Cardiac Studies Cardiac Studies 08/21/2023 Office Visit Cardiology Luh Garcia CRNP [address] [place] [address] 11/29/2023 Office Visit Dermatology Dalila West PA-C [address] [place] [address] [place] [address] Health Maintenance Due Date Last Done Comments COVID-19 Vaccine (4 - Moderna series) 03/04/2022 01/07/2022, 12/31/2020, 12/03/2020 CKD PHOS USE SMARTSET 20513 05/12/202305/02, 10/05/2020, 04/01/2020, Additional history exists Influenza Vaccine (FLU shot) (#1) 2023 07/08/2022, 06/17/2021, 07/22/2020, Additional history exists Depression Screening, Annual for Pts 12 and Over 07/08/2023 07/08/2022 DTaP,Tdap,and Td Vaccines (2 - Td or Tdap) 10/14/2023 10/14/2013, 07/22/2008 Albumin/Creatinine Ratio 02/15/2024 023, 04/07/2022, 10/05/2020, Additional history exists CKD HGB USE SMARTSET 40422 02/15/202402/14, 04/07/2022, 10/05/2020, Additional history exists Pneumococcal [...] Other diseases of lung, not elsewhere classified [place] workers pneumoconiosis (HCC) [place] workers' pneumoconiosis Pleural effusion due to CHF [...] Agents on File Name Relationship Healthcare Agent [facility] Communication Susu Quezada Adult Child Health Care Repr esentative (appointed verbally by patient or by statute hierarchy) Care Teams Dining Room Manager Relationship Specialty Start Date End Date Ben Cisneros MD [address] [place] [address] [place] [phone] PCP - General Family Medicine 05/09/18 documented as of this encounter
--- OUTSIDE RECORDS SUMMARY | 2023-09-09 22:16 | External Medical Summary | Summary of Care ---
Author Name Unknown Organization [facility] Address [address] [place] [address] Phone [phone] Care Team Providers Care Patternmaker Pressure Cast Name Role Phone Ben Cisneros MD Primary Care Provider Reason for Referral * Evaluate & Treat - Unlimited Visits (Within 10 days (routine)) - Authorized Specialty Diagnoses / Procedures Referred By Eleazar landaverde Referred To Contact Skiing Teacher Diagnoses Chronic systolic heart failure (HCC) Ben Cisneros MD [address] [place] [address] [place] [address] Referral ID Status Reason Start Date Expiration Date Visits Requested Visits Authorized [id number] Authorized Specialty Services Required 05/01/2023 1 1 Question Answer Referral Priority Within 10 days (routine) Program Type Case Management Complex Case Management [facility] Health Device(s) Requested Scale Alarm Settings Standard per protocol Comments Average clinic weights: 179 - 186 lbs (fully clothed) Average home weights: 170-178 lbs (naked) Confirmed address In [facility] as correct. Thank you. Reason for Visit * Reason Onset Date Comments case management 05/01/2023 Encounter Details Date Type Department Care Team Description 05/01/2023 Skiing Teacher Telephone Family Medicine [address] [phone] Jeanie Estrada, RN [address] [place] [address] case management Allergies Active Allergy Reactions Severity Noted Date Comments No Known Drug Allergy 10/12/2000 documented as of this encounter (statuses as of 05/04/2023) Medications Medication Sig Dispensed Refills Start Date [...] on top 454 g 0 11/22/2021 Active Additional Information Patient taking differently: apply to rash on lower legs 2 times daily with cerave cream on top. Uses mostly in the winter, not so much in the summer., Informant: Patient, Reported on 04/17/2023 Saline [place] 0.65 % Nasal Solution ([place]) Administer into nostril 1 [place] as needed for Congestion. 60 mL 5 04/08/2022 Active Fluticasone Propionate 50 MCG/ACT Nasal Suspension (Flonase) Administer 2 Sprays into nostril in the morning. 0 Active Flutter Device Provided at visit 1 Each 0 08/09/2022 Active Tamsulosin HCl 0.4 MG Oral Capsule (Flomax)Indications: BPH with obstruction/lower urinary tract symptoms TAKE ONE CAPSULE BY MOUTH TWICE A DAY 200 Capsule 1 03/13/2023 4 Active Additional Information Patient taking differently: 0.8 mg Oral Daily(AM), Informant: At Discharge, Reported on 04/17/2023 Rosuvastatin Calcium 10 MG Oral Tablet (Crestor)Indications :Dyslipidemia, goal LDL below 100 TAKE ONE TABLET BY MOUTH AT BEDTIME 100 Tablet 1 03/13/2023 4 Active Additional Information Patient taking differently: 10 mg Oral Daily(AM), Informant: At Discharge, Reported on 04/17/2023 Pantoprazole Sodium 20 MG Oral Tablet Delayed Release (Protonix)Indication s:Gastroesophageal reflux disease with esophagitis without hemorrhage TAKE ONE TABLET BY MOUTH EVERY MORNING 30 MINUTES BEFORE THE FIRST MEAL OF THE DAY. DO NOT CRUSH, CUT OR CHEW 100 Tablet 1 03/13/2023 4 Active Ipratropium [place] HFA 17 MCG/ACT Inhalation Aerosol Solution (Atrovent Hfa)Indications:[place] workers pneumoconiosis (HCC) INHALE TWO PUFFS BY MOUTH FOUR TIMES A DAY - MORNING, NOON, EVENING, AND BEFORE BEDTIME 12.9 g 5 03/06/2023 4 Active Citalopram Hydrobromide 10 MG Oral [...] the morning. 90 Tablet 3 04/10/2023 Active Additional Information Patient taking differently:20 mg OralHS, Informant: At Discharge, Reported on 04/17/2023 hydrALAZINE HCl 10 MG Oral Tablet (Apresoline)Indicati [...] MG Oral Tablet Extended Release 12 Hour (Humibid LA) Take 1 Tablet by mouth every 12 hours as needed for Cough. 0 Active Torsemide 100 MG Oral Tablet (Demadex)Indications :Chronic systolic heart failure (HCC) Take 1 Tablet by mouth in the morning. 30 Tablet 0 04/25/2023 Active documented as of this encounter (statuses as of 05/04/2023) Active Problems Problem Noted Date Hospital discharge follow-up 04/10/2023 Chronic systolic heart failure 3 Interstitial pulmonary disease 3 Pleural effusion due to CHF (congestive heart failure) 04/10/2023 Medical home patient encounter 3 Nocturnal hypoxemia 04/08/2022 Overview: Wears 2 LPM via [place], DME: [facility] Chronic rhinitis [...] appointment. GENERAL OSTEOARTHROSIS INSOMNIA W SLEEP APNEA [place] workers pneumoconiosis Restrictive lung disease documented as of this encounter (statuses as of 05/04/2023) Resolved Problems Problem Noted Date Resolved Date [...] Rotator cuff rupture 05/22/2003 05/10/2018 LOC PRIM [id number] 05/22/2003 10/16/19 15 Prepatellar bursitis 05/22/2003 10/16/2014 Inflammation of sacroiliac joint 10/12/2001 10/16/2014 LOC PRIM OSTEOARTH-HAND 10/12/2001 10/16/19 15 Respiratory abnormality 07/31/20 09 Overview: ICD-10 update of inactive term Umbilical hernia 05/10/2018 Insomnia 10/16/2014 Overview: ICD-10 update of inactive term COPD, severity to be determined 07/07/2011 Allergic rhinitis 05/10/2018 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 07/31/20 09 Bilateral carpal tunnel syndrome 05/10/2018 CKD (chronic kidney disease), stage III 12/11/2018 Benign hypertension with CKD (chronic kidney disease) stage III 02/11/2021 Overview: Per CKD protocol documented as of this encounter (statuses as of 05/04/2023) Immunizations Name Administration Dates Next Due COVID-19 mRNA, LNP-s, No Pre serve, 2-Dose Series (Moderna) 01/07/2022,12/31/2020,12/03/2020 Pneumococcal Conjugate Vacc, 13 Valent (Prevnar) 05/02/2015 Pneumococcal Polysaccharide PPV23 (Pneumovax) 10/08/2002 Seasonal Influenza, Quadriva lent Hd (Fluzone Hd) 07/08/2022,06/17/2021 Seasonal Influenza, Quadriva lent, No Preserve, 6 Mons & Above, IM 06/28/2018,07/13/2017 Seasonal Influenza, Quadriva lent, No Preserve, Adjuvanted, 65+ Yrs, IM 07/22/2020 Seasonal Influenza, Quadriva lent, No Preserve, IM [...] Encounter - Jeanie Estrada RN - 05/04/2023 11:11 AM EDT Disenrolling from post discharge IVR calls. * Telephone Encounter - Jeanie Estrada RN - 05/02/2023 11:07 AM EDT CM spoke with steam pipe fitter, Alexia Jolley, regarding patient's request for a sooner cardiology appointment if available, or to be put on the wait list if not. Only wants [facility]. No sooner appointments available. Patient placed on wait list. CM called patient and left him know. He is appreciative, as he had no idea how to be put on the wait list. * Telephone Encounter - Jeanie Estrada RN - 05/01/2023 5:18 PM EDT KRISTEN week #4. [facility] trigger: Patient answered YES to question #7 and #8. #7) short of breath? Normally short of breath? More short of breath than usual? #8) any swelling? Swelling does not resolve by morning. Called and spoke with patient. Alert, oriented, pleasant. A little anxious. Reports his breathing is better, but still having dyspnea with exertion. Also reports when he bendsover, it "cuts off my air". Edema is "going down", and "I am losing weight, water weight", but concerned that feet are still swollen. Discussed bending over: -abdomen is larger. When you bend over, it pushes up on your lungs, and you can't get as much air in. So, part of that is normal, expected. -verbalizes understanding. Discussed edema of feet: -feet are their smallest first thing in the morning. -has been elevating higher than his heart about 3 hrs per day. -CM recommended compression socks. Put on first thing in the morning, before up and walking around.Take off at night, rinse out in sink, hang on towel bar to dry, put back on every morning. -patient agreeable with plan. Will ask his daughter to pick him up some at [facility]. Reports his legs are still weak, they get tired easily, and if he walks a lot, they want to 'give out'. "I have no strength." Discussed outpatient physical therapy. -patient declines -costs him $20 co pay per visit, and he cannot afford that. -"I've just got my budget down to where I can just get by on it." CM will send patient the brochure on applying for financial assistance. Daughter concerned he is not getting enough to drink on his fluid restriction -patient voiding nearly every hour -urine is "Light" yellow. -reports his mouth has not been as dry lately -Informed patient if he was dehydrated, his urine would get dark, and he would not void as often, and would get dry mouth. -feels somewhat reassured. Patient reports his abdomen is still large, but is no longer hard. It is soft now. Pain: "not too much" -reports chronic back pain, "but I have a bad back." -pain increases if standing for long periods such as doing dishes or cooking a meal. Patient mowed his lawn today, using a riding mower. Still able to drive a short distance, such as 1-2 miles. Otherwise, daughter transports him. Eating good. -HAL -adhering to 50 oz fluid restriction -has increased fruit intake -not eating any salty snacks, still has them in the cupboard, but "haven't touched them" -not eating any canned soups, etc. -not eating any TV dinners, freezer meals -"I even made spaghetti, and used home canned tomatoes so I wouldn't get all that salt." -grilled his pork chop outside, to decrease any fat, etc. -not adding salt to water to boil potatoes or pasta Weight this morning, on his home scale, was 170 lbs. Discussed [facility] telephonic scales for heart failure monitoring. Agreeable to scales. Explained how they work, that they are not to keep. To keep the shipping box. That they will come by [employer]. Confirmed home address. Reports BP this morning was 105/55. -does experience dizziness with sudden position changes -instructed patient to change positions slowly before taking off -recommended marching in place for 10+ steps before starting to ambulate. -patient agreeable with plan. Patient reports the nurse is coming again on Monday. Reports he is getting repeat labs on Monday - a week after torsemide was increased to 100 mg daily, and ProBNP was elevated to 10,943. Uses [facility]. Patient asking for a sooner cardiology appointment, and if none available, to be placed on a wait list, in case there is a cancellation. CM will discuss with schedulers tomorrow. Patient agreeable with plan. Other IVR questions/answers: #1) taking meds as prescribed? YES #2) medications causing problems? NO #3) dizzy/unsteady when walking? NO #4) any falls? NO #5) new/uncontrolled pain? NO #6) felt feverish? NO #9) nausea? NO #10) bowels moved? YES, diarrhea? NO #11) incisions/open wounds? NO #12) adequate help at home? YES #13) had follow up appointment? YES #14) want to talk to your nurse about other problems/condition changes? NO Denies any other issues or needs at this time. Feels somewhat reassured after talking with CM. Next planned contact will be in about a week, or as needed before. documented in this encounter Plan of Treatment Upcoming Encounters Date Type Specialty Care Team Description 06/20/2023 Office Visit Family Medicine Ben Cisneros MD [address] [place] [address] [place] [id number] 07/12/2023 Nurse Only Ancillary Nurse Rubina Annual [address] [place] [address] 07/13/2023 Office Visit Cardiology Brenton Padilla PA-C [address] [place] [address] 08/03/2023 Telemedicine Nutrition Services Kelly Peraza RDN [address] [place] [address] 11/29/2023 Office Visit Dermatology Dalila West PA-C [address] [place] [address] [place] [address] Scheduled Referrals Name Type Priority Associated Diagnoses Orde r Schedule REMOTE PATIENT MONITORING REFERRAL Referral Within 10 days (routine) Chronic systolic heart failure (HCC) Ordered: 05/01/2023 Health Maintenance Due Date Last Done Comments COVID-19 Vaccine (4 - Moderna series) 03/04/2022 01/07/2022, 12/31/2020, 12/03/2020 CKD PHOS USE SMARTSET 34022 05/12/202305/02, 10/05/2020, 04/01/2020, Additional history exists Influenza Vaccine (FLU shot) (#1) 2023 07/08/2022, 06/17/2021, 07/22/2020, Additional history exists Depression Screening, Annual for Pts 12 and Over 07/08/2023 07/08/2022 DTaP,Tdap,and Td Vaccines (2 - Td or Tdap) 10/14/2023 10/14/2013, 07/22/2008 Albumin/Creatinine Ratio 02/15/2024 023, 04/07/2022, 10/05/2020, Additional history exists CKD HGB USE SMARTSET 86773 02/15/202402/14, 04/07/2022, 10/05/2020, Additional history exists Pneumococcal [...] of this encounter Visit Diagnoses Diagnosis Chronic systolic heart failure (HCC)- Primary Chronic systolic heart failure documented in this [...] patient or by statute hierarchy) Care Teams Patternmaker Pressure Cast Relationship Specialty Start Date End Date Ben Cisneros MD [address] [place] [address] [place] [address] PCP - General Family Medicine 05/09/18 documented as of this encounter
--- OUTSIDE RECORDS SUMMARY | 2023-09-09 22:16 | External Medical Summary | Summary of Care ---
Author Name Unknown Organization [facility] Address [address] [place] [address] Phone [phone] Care Team Providers Care Court Supervisor Name Role Phone Ben Cisneros MD Primary Care Provider Reason for Referral * Precert (Within 10 days (routine)) - Authorized Specialty Diagnoses / Procedures Referred By Contac t Referred To Contact Cardiac Studies Diagnoses HFrEF (heart failure with reduced ejection fraction) ([facility]) Procedures ECHO, TTE, LIMITED Luh Garcia CRNP [address] [place] [address] Referral ID Status Reason Start Date Expiration Date V isits Requested Visits Authorized [id number] Authorized Precert 08/11/2023 999 999 Reason for Visit * Reason Comments Follow Up Encounter Details Date Type Department Care Team Description 05/11/2023 Office Visit Cardiology, [facility] [address] [place] [address] Luh Garcia CRNP [address] [place] [id number] HFrEF (heart failure with reduced ejection fraction) ([facility])*; Stress-induced cardiomyopathy Allergies Active Allergy Reactions Severity Noted Date Comments No Known Drug Allergy 10/12/2000 documented as of this encounter (statuses as of 05/11/2023) Medications Medication Sig Dispensed Refills Start Date End Date Status ASPIRIN 81 MG PO TABS one tab by mouth daily 0 0 7 Active CENTRUM PO TABS 1 tablet a [...] cerave cream on top 454 g 0 2 Active Saline Elizabeth 0.65 % Nasal Solution ([place]) Administer into nostril 1 Elizabeth as needed for Congestion. 60 mL 5 2 Active Fluticasone Propionate 50 MCG/ACT Nasal Suspension (Flonase) Administer 2 Sprays into nostril in the morning. 0 Active Flutter Device Provided at visit 1 Each 0 2 Active Tamsulosin HCl 0.4 MG Oral Capsule (Flomax)Indications :BPH with obstruction/lower urinary tract symptoms TAKE ONE CAPSULE BY MOUTH TWICE A DAY 200 Capsule 1 3 03/12/20 24 Active Rosuvastatin Calcium 10 MG Oral Tablet (Crestor)Indication s:Dyslipidemia, goal LDL below 100 TAKE ONE TABLET BY MOUTH AT BEDTIME 100 Tablet 1 3 03/12/20 24 Active Pantoprazole Sodium 20 MG Oral Tablet Delayed Release (Protonix)Indicatio ns:Gastroesophageal reflux disease with esophagitis without hemorrhage TAKE ONE TABLET BY MOUTH EVERY MORNING 30 MINUTES BEFORE THE FIRST MEAL OF THE DAY. DO NOT CRUSH, CUT OR CHEW 100 Tablet 1 3 03/12/20 24 Active Ipratropium [place] HFA 17 MCG/ACT Inhalation Aerosol Solution (Atrovent Hfa)Indications:Coa l workers pneumoconiosis (HCC) INHALE TWO PUFFS BY MOUTH FOUR TIMES A DAY - MORNING, NOON, EVENING, AND BEFORE BEDTIME 12.9 g 5 3 03/05/20 24 Active Citalopram Hydrobromide 10 MG Oral Tablet (CeleXA)Indications :SOLEDAD (generalized anxiety disorder) TAKE ONE TABLET BY MOUTH EVERY MORNING. 100 Tablet 1 3 03/05/20 24 Active Carvedilol 12.5 MG Oral Tablet (Coreg)Indications: Primary hypertension,Diasto lic dysfunction Take 1 Tablet by mouth 2 times a day with morning and evening meals. 200 Tablet 1 3 Active Famotidine 20 MG Oral Tablet (Pepcid)Indications :Gastroesophageal reflux disease, unspecified whether esophagitis present Take 1 Tablet by mouth in the morning. 90 Tablet 3 3 Active hydrALAZINE HCl 10 MG Oral Tablet (Apresoline)Indicat ions:Chronic systolic heart failure (HCC) Take 1 Tablet by mouth in the morning and 1 Tablet in the evening. 200 Tablet 1 3 Active Isosorbide Dinitrate 10 MG Oral Tablet (Isordil)Indication s:Chronic systolic heart failure (HCC) Take 1 Tablet by mouth in the morning and 1 Tablet before bedtime. 200 Tablet 1 3 Active guaiFENesin ER 600 MG Oral Tablet Extended Release 12 Hour Take 1 Tablet by mouth every 12 hours as needed for Cough. 0 Active Torsemide 100 MG Oral Tablet (Demadex) Take 0.5 Tablets by mouth in the morning. 30 Tablet 3 3 Active Torsemide 100 MG Oral Tablet (Demadex)Indication s:Chronic systolic heart failure (HCC) Take 1 Tablet by mouth in the morning. 30 Tablet 0 3 05/11/20 23 Discontinued documented as of this encounter (statuses as of 05/11/2023) Active Problems Problem Noted Date Hospital discharge follow-up 04/10/2023 Chronic systolic heart failure 3 Interstitial pulmonary disease 3 Pleural effusion due to CHF (congestive heart failure) 04/10/2023 Medical home patient encounter 3 Nocturnal hypoxemia 04/08/2022 Overview: Wears 2 LPM via [place], DME: [facility] Chronic rhinitis 04/08/2022 Lung nodules 04/08/2022 [...] appointment. GENERAL OSTEOARTHROSIS INSOMNIA W SLEEP APNEA Liberty workers pneumoconiosis Restrictive lung disease documented as of this encounter (statuses as of 05/11/2023) Resolved Problems Problem Noted Date Resolved Date [...] Rotator cuff rupture 05/22/2003 05/10/2018 LOC PRIM [id number] 05/22/2003 10/16/19 15 Prepatellar bursitis 05/22/2003 10/16/2014 Inflammation of sacroiliac joint 10/12/2001 10/16/2014 LOC PRIM OSTEOARTH-HAND 10/12/2001 10/16/19 15 Respiratory abnormality 07/31/20 09 Overview: ICD-10 update of inactive term Umbilical hernia 05/10/2018 Insomnia 10/16/2014 Overview: ICD-10 update of inactive term COPD, severity to be determined 07/07/2011 Allergic rhinitis 05/10/2018 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 NOS-CORSET FITTER 07/31/20 09 Bilateral carpal tunnel syndrome 05/10/2018 CKD (chronic kidney disease), stage III 12/11/2018 Benign hypertension with CKD (chronic kidney disease) stage III 02/11/2021 Overview: Per CKD protocol documented as of this encounter (statuses as of 05/11/2023) Immunizations Name Administration Dates Next Due COVID-19 [...] 05/19/1960 Smokeless Tobacco: Never Tobacco Cessation:Counseling Given: Yes Alcohol Use Standard Drinks/Week Comments Not Currently [...] Sign Reading Time Taken Comments Blood Pressure 122/64 05/11/2023 10:45 AM EDT Pulse 72 05/11/2023 10:45 AM EDT Temperature - - Respiratory Rate 14 05/11/2023 10:4 5 AM EDT Oxygen Saturation - - Inhaled Oxygen Concentration - - Weight 81.6 kg (180 lb) 05/11/2023 10:4 5 AM EDT 170.3 this AM on home medical scale Height - - Body Mass Index 23.11 04/26/2023 11:03 AM EDT documented in this encounter Progress Notes * DAV Logan - 05/11/2023 11:00 AM EDT 05/11/2023 Cardiology Follow Up Primary Auto Brake Mechanic: Dr. Urena Cardiac Problems: 1. 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 CKD Stage 3 3. HTN HPI: Ned Elliott is a 87 year old male presents for follow up. Last seen in our office by Dr. Urena on 03/13/23 following a recent hospitalization on 03/06/23 at [facility] for acute hypoxic respiratory failure secondary to mixes pulmonary and cardiac issues. Patient hadan exacerbation of underlying intersitial lung disease with COVID as well as superimposed systolic heart failure. Echocardiogram at time of hospitalization demonstrated possible apical ballooning vs ischemic cardiomyopathy. Patient was treated for both lung disease as well as heart failure, and at time of followup showed clinical improvement, while noting continued weakness and requiring O2 supplementation. Today patient presents feeling markedly better. He reports that he continues with O2 supplementation at night (as he did pre-hospitalization). He has become very focused on his diet and water intake,reading labels, and aiming for under 60oz of [...] weight gain or any further weight loss outside1-2 lbs. He is also checking his blood [...] shortness of breath, PND, syncope or edema. REVIEW OF SYSTEMS: See HPI for pertinent [...] cream on top 454 g 0 Saline Elizabeth 0.65 % Nasal Solution ([place]) Administer into nostril 1 Elizabeth as needed for Congestion. 60 mL 5 [...] CRUSH, CUT OR CHEW 100 Tablet 1 Ipratropium [place] HFA 17 MCG/ACT Inhalation Aerosol Solution (Atrovent Hfa) INHALE TWO PUFFS BY MOUTH FOUR TIMES A DAY - MORNING, NOON, EVENING, AND BEFORE BEDTIME 12.9 g 5 Citalopram Hydrobromide 10 MG Oral Tablet (CeleXA) [...] every 12 hours as needed for Cough. Torsemide 100 MG Oral Tablet (Demadex) Take 0.5 Tablets by mouth in the morning. 30 Tablet 3 No current facility-administered medications for this visit. Past Medical History: Diagnosis Date Acute bronchitis due to Rhinovirus 03/06/2023 admitted [facility] Acute respiratory failure (HCC) 03/28/2023 [facility], treated with SoluMedrol, ceftriaxone, azithromycin, culture grew stenotrophomonas maltophilia Allergic rhinitis 11/30/2000 Benign hypertension with CKD (chronic kidney disease) stage III ([facility]) Benign neoplasm of colon 02/28/2008 adenomatous/ repeat colonoscopy in 3 yrs Bilateral carpal tunnel syndrome Bronchiectasis ([facility]) CKD (chronic kidney disease), stage III ([facility]) 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, mild ([facility]) Degenerative lumbar disc 05/13/2019 L4-5 Essential hypertension with goal blood pressure less than 140/90 Gastroesophageal reflux disease without esophagitis 08/18/2021 Generalized osteoarthritis 10/02/2000 Inflammation of sacroiliac joint (HCC) 10/12/2001 right side Insomnia with sleep apnea 10/02/2000 Interstitial emphysema ([facility]) Osteoarthritis of hand 10/12/2001 right hand Pneumonia due to hemophilus influenzae ([facility]) 08/16/2022 Prepatellar bursitis 05/22/2003 Restrictive lung disease 05/19/2017 Family History Problem Relation Age of Onset Heart Disorder Mother dec. age 82 Heart Disorder Father dec.age 67 , electrocution at mines COPD Father Heart disease Brother Cancer Brother skin Cancer Uncle (Unspecified) dec. 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 Tobacco Use Smoking status: Former Packs/day: 0.25 Years: 5.00 Pack years: 1.25 Types: Cigarettes Quit date: 05/19/1960 Years since quittin.0 Smokeless tobacco: Never Vaping Use Vaping Use: Never used Substance and Sexual Activity Alcohol use: Not Currently Alcohol/week: 2.0 standard drinks Types: 2 12 oz of beer per week Comment: weekly Drug use: No Sexual activity: Yes Partners: Female Social History Narrative In 03/13/10 Social Determinants of Health Food Insecurity: No Food Insecurity Worried About Running Out of Food in the Last Year: Never true Ran Out of Food in the Last Year: Never true OBJECTIVE/PHYSICAL EXAMINATION: BP 122/64 | Pulse 72 | Resp 14 | Wt 81.6 kg (180 lb) Comment: 170.3 this AM on home medical scale |BMI 23.11 kg/m | BSA 2.06 m General: No acute distress. A+Ox3. HEENT: [...] insight. DATA Labs & Imaging Reviewed Below: Echocardiogram 04/13/2023 The left ventricular cavity size [...] failure with reduced ejection fraction) (HCC) -appears euvolemic, perhaps slightly dry today at physical exam -concern with low BP's and dizziness as well as renal function -continue coreg 12.5mg PO BID, Hydralazine 10mg BID, and Reduce Torsemide to 50mg PO QAM. -Continue with BP checks no more than 3 x per day unless symptomatic event. -continue Daily weights and record. Report any weight gain over 2lbs in a 24 hours period. -continue to reading nutrition labels, monitoring free water intake, and eliminating salt from diet. -Will recheck renal function and electrolytes in one month. -Limited echo in 3 months to assess LVEF -If renal function improves and stablilizes as well as blood pressures, may consider very low dose of KENNETH-inhibitor as part of HF regimen. -have also spoken to clinical pharmacist and agree with recommendation to start jardiance 10mg QD as part of HF regimen. - EKG - BASIC METABOLIC PANEL; Future - ECHO, TTE, LIMITED ; Future 2. Stress-induced Cardiomyopathy -marked improvement since prior echo, currently LVEF 40-45% -Repeat echo in 3 months, limited to assess LVEF. -Labs in one month -Reduce Torsemide and continue other medications as discussed. -continue to monitor and record Blood pressure and weights. Reporting significant changes as discussed. - Torsemide 100 MG Oral Tablet (Demadex); Take 0.5 Tablets by mouth in the morning. Dispense: 30 Tablet; Refill: 3 DISPOSITION: Follow up 3 months or if symptoms worsen/fail to improve. All questions were answered to the patients satisfaction. Patient advised to report to ED with any and all emergencies. The patient agrees to the above plan and will call with additional questions or concerns. DAV Tran Cardiology, [facility] [address] [facility] [place] [address] I spent a total of 45 minutes on the date of service in preparation, delivery, and documentation ofthe care provided to Ned Elliott excluding any time spent in the performance of separately billed services. This chart was completed in part utilizing [employer] Speech Voice Recognition Software. Grammatical errors, random [...] Nursing Notes * Jada Gregory LPN - 05/11/2023 10:44 AM EDT Examination Room: 6 Name: Ned Elliott Date of : 1935 Reason for Visit: Follow up Problems/Concerns: Feeling better, edema resolved Interim Hosp(s): Denies since April 27 Chest Pain/SOB: denies MyChart Discussed: ALREADY ACTIVE [...] Specialty Care Team Description 06/12/2023 Laboratory Laboratory [place], Lab [address] [place] [address] 06/20/2023 Office Visit Family Medicine Ben Cisneros MD [address] [place] [address] [place] [address] 07/12/2023 Nurse Only Ancillary Rubina Nurse [address] [place] [address] 08/03/2023 Telemedicine Nutrition Services Kelly Peraza, RDN [address] [place] [address] 08/15/2023 Cardiac Studies Cardiac Studies 08/21/2023 Office Visit Cardiology Luh Garcia CRNP [address] [place] [address] 11/29/2023 Office Visit Dermatology Dalila West PA-C [address] [place] [address] [place] [address] Scheduled Orders Name Type Priority Associated Diagnoses Orde r Schedule EKG EKG Routine HFrEF (heart failure with reduced ejection fraction) ([facility]) Ordered: 05/11/2023 BASIC METABOLIC PANEL Lab Routine HFrEF (heart failure with reduced ejection fraction) ([facility]) Expected: 06/11/2023, Expires: 05/11/2024 ECHO, TTE, LIMITED Echocardiology Routine HFrEF (heart failure with reduced ejection fraction) ([facility]) Expected: 08/11/2023, Expires: 05/11/2024 Health Maintenance Due Date Last Done Comments COVID-19 Vaccine (4 - Moderna series) 03/04/2022 01/07/2022, 12/31/2020, 12/03/2020 CKD PHOS USE SMARTSET 70070 05/12/202305/02, 10/05/2020, 04/01/2020, Additional history exists Influenza Vaccine (FLU shot) (#1) 2023 07/08/2022, 06/17/2021, 07/22/2020, Additional history exists Depression Screening, Annual for Pts 12 and Over 07/08/2023 07/08/2022 DTaP,Tdap,and Td Vaccines (2 - Td or Tdap) 10/14/2023 10/14/2013, 07/22/2008 Albumin/Creatinine Ratio 02/15/2024 023, 04/07/2022, 10/05/2020, Additional history exists CKD HGB USE SMARTSET 09464 02/15/202402/14, 04/07/2022, 10/05/2020, Additional history exists Pneumococcal [...] File Name Relationship Healthcare Agent [facility] Communication Susu Quezada Adult Child Health Care Repr esentative (appointed verbally by patient or by statute hierarchy) Care Teams Court Supervisor Relationship Specialty Start Date End Date Ben Cisneros MD [address] [place] [address] [place] [address] PCP - General Family Medicine 05/09/18 documented as of this encounter"
--- OUTSIDE RECORDS SUMMARY | 2023-09-09 22:16 | External Medical Summary ---
Author Name Unknown Address Unknown Organization [id number]:[facility] [place] [address] [place] [address] Laboratory Report Ordering Provider Test Date Status NIKA BELL 05/03/2023 10:01:08 Final Exclude Heart Failure: <300 pg/mL
Diagnose Heart Failure:
Age <50 yr: >450 pg/mL
50-75 yr: >900 pg/mL
>75 yr: >1800 pg/mL
GFR is 30-59 mL/min: >1200 pg/mL or Age- adjusted values
GFR <30 mL/min: do not use, not reliable

Prognostic threshold: 1000 pg/mL Observation Date Value Abnormality Reference (Units ) Status BNP, Pro-hormone 05/03/2023 10:01:08 [id number] Above high no rmal <300 (pg/mL) Final Performing Location [facility] [place] [address] [place] [address]
--- OUTSIDE RECORDS SUMMARY | 2023-09-09 22:16 | External Medical Summary | Summary of Care ---
Author Name Unknown Organization [facility] Address [address] [place] [address] Phone [phone] Care Team Providers Care Caregivers Homecare Name Role Phone Ben Cisneros MD Primary Care Provider Reason for Referral * Evaluate & Treat - Unlimited Visits (Within 10 days (routine)) - Authorized Specialty Diagnoses / Procedures Referred By Eleazar landaverde Referred To Contact Rig Manager Diagnoses Chronic systolic heart failure (HCC) Ben Cisneros MD [address] [place] [address] [place] [address] Referral ID Status Reason Start Date Expiration Date Visits Requested Visits Authorized [id number] Authorized Specialty Services Required 05/01/2023 1 1 Question Answer Referral Priority Within 10 days (routine) Program Type Case Management Complex Case Management [facility] Health Device(s) Requested Scale Alarm Settings Standard per protocol Comments Average clinic weights: 179 - 186 lbs (fully clothed) Average home weights: 170-178 lbs (naked) Confirmed address In [facility] as correct. Thank you. Reason for Visit * Reason Onset Date Comments case management 05/01/2023 Encounter Details Date Type Department Care Team Description 05/01/2023 Rig Manager Telephone Family Medicine [address] [phone] Jeanie Estrada, RN [address] [place] [address] case management Allergies Active Allergy Reactions Severity Noted Date Comments No Known Drug Allergy 10/12/2000 documented as of this encounter (statuses as of 05/02/2023) Medications Medication Sig Dispensed Refills Start Date [...] summer., Informant: Patient, Reported on 04/17/2023 Saline [place] 0.65 % Nasal Solution ([place]) Administer into nostril 1 [place]over as needed for Congestion. 60 mL 5 [...] 100 Tablet 1 03/13/2023 4 Active Ipratropium [place] HFA 17 MCG/ACT Inhalation Aerosol Solution (Atrovent Hfa)Indications:Sac workers pneumoconiosis (HCC) INHALE TWO PUFFS BY [...] as of this encounter (statuses as of 05/02/2023) Active Problems Problem Noted Date Hospital discharge follow-up 04/10/2023 Chronic systolic heart failure 07/10/202 3 Interstitial pulmonary disease 3 Pleural effusion due to CHF (congestive heart failure) 04/10/2023 Medical home patient encounter 3 Nocturnal hypoxemia 04/08/2022 Overview: Wears 2 LPM via [place], DME: [facility] Chronic rhinitis 04/08/2022 [...] appointment. GENERAL OSTEOARTHROSIS INSOMNIA W SLEEP APNEA Sac workers pneumoconiosis Restrictive lung disease documented as of this encounter (statuses as of 05/02/2023) Resolved Problems Problem Noted Date Resolved Date [...] Rotator cuff rupture 05/22/2003 05/10/2018 LOC PRIM [id number] 05/22/2003 10/16/19 15 Prepatellar bursitis 05/22/2003 10/16/2014 Inflammation of sacroiliac joint 10/12/2001 10/16/2014 LOC PRIM OSTEOARTH-HAND 10/12/2001 10/16/19 15 Respiratory abnormality 07/31/20 09 Overview: ICD-10 update of inactive term Umbilical hernia 05/10/2018 Insomnia 10/16/2014 Overview: ICD-10 update of inactive term COPD, severity to be determined 07/07/2011 Allergic rhinitis 05/10/2018 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 NOS-CHANGE COORDINATOR 07/31/20 09 Bilateral carpal tunnel syndrome 05/10/2018 CKD (chronic kidney disease), stage III 12/11/2018 Benign hypertension with CKD (chronic kidney disease) stage III 02/11/2021 Overview: Per CKD protocol documented as of this encounter (statuses as of 05/02/2023) Immunizations Name Administration Dates Next Due COVID-19 [...] Estrada RN - 05/02/2023 11:07 AM EDT CARMEN spoke with poultry helper, Alexia Jolley, regarding patient's request for a sooner cardiology appointment if available, or to be put on the wait list if not. Only wants [facility]. No sooner appointments available. Patient placed on wait list. CM called patient and left him know. He is appreciative, as he had no idea how to be put on the wait list. * Telephone Encounter - Jeanie Estrada RN - 05/01/2023 5:18 PM EDT KRISTEN week #4. [facility] trigger: Patient answered YES to question #7 [...] daughter to pick him up some at [facility]. Reports his legs are still weak, they [...] his home scale, was 170 lbs. Discussed [facility] telephonic scales for heart failure monitoring. Agreeable to scales. Explained how they work, that they are not to keep. To keep the shipping box. That they will come by [employer]. Confirmed home address. Reports BP this morning [...] and ProBNP was elevated to 10,943. Uses [facility]. Patient asking for a [...] Encounters Date Type Specialty Care Team Description 05/03/2023 Laboratory Laboratory [place], Lab [address] [place] [address] 06/20/2023 Office Visit Family Medicine Ben Cisneros MD [address] [place] [address] [place] [address] 07/12/2023 Nurse Only Ancillary Rubina Nurse [facility] [address] [place] [address] [place] [address] 07/13/2023 Office Visit Cardiology Brenton Padilla PA-C [address] [place] [address] 08/03/2023 Telemedicine Nutrition Services Kelly Peraza RDN [address] [place] [address] 11/29/2023 Office Visit Dermatology Dalila West PA-C [address] [place] [address] [place] [address] Scheduled Referrals Name Type Priority Associated Diagnoses Orde r Schedule REMOTE PATIENT MONITORING REFERRAL Referral Within 10 days (routine) Chronic systolic heart failure (HCC) Ordered: 05/01/2023 Health Maintenance Due Date Last Done Comments COVID-19 Vaccine (4 - Moderna series) 03/04/2022 01/07/2022, 12/31/2020, 12/03/2020 CKD PHOS USE SMARTSET 59111 05/12/202305/02, 10/05/2020, 04/01/2020, Additional history exists Influenza Vaccine (FLU shot) (#1) 2023 07/08/2022, 06/17/2021, 07/22/2020, Additional history exists Depression Screening, Annual for Pts 12 and Over 07/08/2023 07/08/2022 DTaP,Tdap,and Td Vaccines (2 - Td or Tdap) 10/14/2023 10/14/2013, 07/22/2008 Albumin/Creatinine Ratio 02/15/2024 023, 04/07/2022, 10/05/2020, Additional history exists CKD HGB USE SMARTSET 00266 02/15/202402/14, 04/07/2022, 10/05/2020, Additional history exists Pneumococcal [...] Agents on File Name Relationship Healthcare Agent [facility] p Communication Susu Quezada Adult Child Health Care Repr esentative (appointed verbally by patient or by statute hierarchy) Care Teams Caregivers Homecare Relationship Specialty Start Date End Date Ben Cisneros MD [address] [place] [address] [place] [address] PCP - General Family Medicine 05/09/18 documented as of this encounter
--- OUTSIDE RECORDS SUMMARY | 2023-09-09 22:16 | External Medical Summary ---
Author Name Unknown Address Unknown Organization K01:[facility] [place] - [address] [facility] [address] [place] [address] Laboratory Report Ordering Provider Test Date Status RABIA VILLAGOMEZ 05/03/2023 10:01:08 Final Observation Date Value Abnormality Reference (Units ) Status MYCODE SPECIMEN-SST 05/03/2023 10:01:08 Freezing of extracted DNA, whole blood and/or serum. Final Performing Location [facility] [place] - [address] [place] [address]
--- OUTSIDE RECORDS SUMMARY | 2023-09-09 22:16 | External Medical Summary | Summary of Care ---
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 60 mL 5 [...] 100 Tablet 1 03/13/2023 4 Active Ipratropium [place] HFA 17 MCG/ACT Inhalation Aerosol Solution (Atrovent Hfa)Indications:[place] workers pneumoconiosis (HCC) INHALE TWO PUFFS BY [...] as of this encounter (statuses as of 05/10/2023) Active Problems Problem Noted Date Hospital discharge follow-up 04/10/2023 Chronic systolic heart failure 3 Interstitial pulmonary disease 3 Pleural effusion due to CHF (congestive heart failure) 04/10/2023 Medical home patient encounter 3 Nocturnal hypoxemia 04/08/2022 Overview: Wears 2 LPM via PR, DME: [facility] Chronic rhinitis [...] appointment. GENERAL OSTEOARTHROSIS INSOMNIA W SLEEP APNEA [place] workers pneumoconiosis Restrictive lung disease documented as of this encounter (statuses as of 05/10/2023) Resolved Problems Problem Noted Date Resolved Date [...] Rotator cuff rupture 05/22/2003 05/10/2018 LOC PRIM [id number] 05/22/2003 10/16/19 15 Prepatellar bursitis 05/22/2003 10/16/2014 Inflammation of sacroiliac joint 10/12/2001 10/16/2014 LOC PRIM OSTEOARTH-HAND 10/12/2001 10/16/19 15 Respiratory abnormality 07/31/20 09 Overview: ICD-10 update of inactive term Umbilical hernia 05/10/2018 Insomnia 10/16/2014 Overview: ICD-10 update of inactive term COPD, severity to be determined 07/07/2011 Allergic rhinitis 05/10/2018 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 NOS-DIPPER CLOCK AND WATCH HANDS 07/31/20 09 Bilateral carpal tunnel syndrome 05/10/2018 CKD (chronic kidney disease), stage III 12/11/2018 Benign hypertension with CKD (chronic kidney disease) stage III 02/11/2021 Overview: Per CKD protocol documented as of this encounter (statuses as of 05/10/2023) Immunizations Name Administration Dates Next Due COVID-19 mRNA, LNP-s, No Pre serve, 2-Dose Series (Moderna) 01/07/2022,12/31/2020,12/03/2020 Pneumococcal Conjugate Vacc, 13 Valent (Prevnar) 05/02/2015 Seasonal Influenza, Quadriva lent Hd (Fluzone Hd) [...] as of this encounter Progress Notes * Pennie Edwards, [facility] - 05/09/2023 11:20 AM EDT Images from the original note were not included. PHARMACY MTM PROGRESS NOTE [facility] [address] [facility] [place] [address] Service Delivery Delivery Method: Phone Outcome: CMR Completed Health Profile Current Conditions: Allergies, Arthritis, Enlarged Prostate, Fluid Rentention, General Health, Heart Failure, Heartburn, High Blood Pressure, High Cholesterol and Other (Rash) Drug allergies & side effects: Review of patient's allergies indicates: Allergen Reactions No Known Drug Allergy Med List Home Medications Provider ASPIRIN 81 MG PO TABS Victor Manuel Jack MD Associated Diagnoses: -- Carvedilol 12.5 MG Oral Tablet (Coreg) Ben Cisneros MD Take 1 Tablet by mouth 2 times a day with morning and evening meals. Associated Diagnoses: Primary hypertension, Diastolic dysfunction CENTRUM PO TABS History Per Patient Associated Diagnoses: -- Citalopram Hydrobromide 10 MG Oral Tablet (CeleXA) Ben Cisneros MD TAKE ONE TABLET BY MOUTH EVERY MORNING. Associated Diagnoses: SOLEDAD (generalized anxiety disorder) Famotidine 20 MG Oral Tablet (Pepcid) DAV Olivera Take 1 Tablet by mouth in the morning. Associated Diagnoses: Gastroesophageal reflux disease, unspecified whether esophagitis present Fluticasone Propionate 50 MCG/ACT Nasal Suspension (Flonase) History Per Patient Associated Diagnoses: -- Flutter Device DAV Nicole Provided at visit Associated Diagnoses: -- guaiFENesin ER 600 MG Oral Tablet Extended Release 12 Hour (Humibid LA) History Per Patient Associated Diagnoses: -- hydrALAZINE HCl 10 MG Oral Tablet (Apresoline) Ben Cisneros MD Take 1 Tablet by mouth in the morning and 1 Tablet in the evening. Associated Diagnoses: Chronic systolic heart failure (HCC) Ipratropium [place] HFA 17 MCG/ACT Inhalation Aerosol Solution (Atrovent Hfa) Ben Cisneros MD INHALE TWO PUFFS BY MOUTH FOUR TIMES A DAY - MORNING, NOON, EVENING, AND BEFORE BEDTIME Associated Diagnoses: [place] workers pneumoconiosis (HCC) Isosorbide Dinitrate 10 MG Oral Tablet (Isordil) Ben Cisneros MD Take 1 Tablet by mouth in the morning and 1 Tablet before bedtime. Associated Diagnoses: Chronic systolic heart failure (HCC) Loratadine 10 MG Oral Capsule History Per Patient Associated Diagnoses: -- oxygen IN GAS History Per Patient Associated Diagnoses: -- Notes: NPI: Electronically Signed by: Delmy Harry LPN Pantoprazole Sodium 20 MG Oral Tablet Delayed Release (Protonix) Ben Cisneros MD TAKE ONE TABLET BY MOUTH EVERY MORNING 30 MINUTES BEFORE THE FIRST MEAL OF THE DAY. DO NOT CRUSH, CUT OR CHEW Associated Diagnoses: Gastroesophageal reflux disease with esophagitis without hemorrhage Rosuvastatin Calcium 10 MG Oral Tablet (Crestor) Ben Cisneros MD TAKE ONE TABLET BY MOUTH AT BEDTIME Associated Diagnoses: Dyslipidemia, goal LDL below 100 Saline [place] 0.65 % Nasal Solution (Carson) DAV Nicole Administer into nostril 1 [place] as needed for Congestion. Associated Diagnoses: -- Tamsulosin HCl 0.4 MG Oral Capsule (Flomax) Ben Cisneros MD TAKE ONE CAPSULE BY MOUTH TWICE A DAY Patient taking differently: Take 2 Capsules by mouth in the morning. Associated Diagnoses: BPH with obstruction/lower urinary tract symptoms Torsemide 100 MG Oral Tablet (Demadex) Ben Cisneros MD Take 1 Tablet by mouth in the morning. Associated Diagnoses: Chronic systolic heart failure (HCC) Triamcinolone Acetonide 0.1 % External Ointment (Aristocort) Dalila West PA-C apply to rash on lower legs 2 times daily with cerave cream on top Associated Diagnoses: Contact dermatitis, unspecified contact dermatitis type, unspecified trigger Notes: 90 day supply = 1 jar/454 g Vitamin B-12 100 MCG Oral Tablet (vitamin B-12) History Per Patient Associated Diagnoses: -- Ongoing Comment Catalina Nunez LPN 08/09/2022 10:39 AM 08/09/2022- Pt unable to verify medications. Zoraida Nunez LPN Pt has purchased a med online for pain. Unsure name. He does take it twice a day as needed. TIPs None Action Plan 1. What type of item is this? Non-medication related Describe the item for the patient takeaway: Signs of low blood pressure Describe what the patient should do (for the patient takeaway): You mentioned feeling light headed or dizzy throughout your day. This could be a sign of low blood pressure. Use caution when goingfrom sitting to standing. Check your blood pressure at home and report your readings to your doctor. If dizziness continues or gets worst, call your doctor. 2. What type of item is this? Non-medication related Describe the item for the patient takeaway: Checking your weight at home Describe what the patient should do (for the patient takeaway): Weighing yourself daily will help you identify if your heart failure is getting worse. It is recommended that you weigh yourself atthe same time every morning (after urinating, but before eating) wearing the same thing. Keep trackof your weights on a daily basis. A weight gain of 3 pounds in one day or 5 pounds in one week indicates fluid accumulation and should be a sign to call your doctor. Takeaway Service Information o Date CMR was completed: 05/09/2023 o Who was the recipient of the CMR service: Patient o Was the patient in a longterm care (LTC) facility when the CMR was completed? No o Pharmacist's availability for questions: Monday-Monday 8:00am-4:30pm Takeaway Information o Will the Patient Takeaway be sent to the Patient or someone else? Patient o Language Template for the Patient Takeaway: Korean o Additional notes for the Patient Takeaway (optional): N/A I attest that I have reviewed and updated the patient's conditions, allergies, and medications to the best of my ability. Patient Access: Is patient utilizing [facility]? Yes Is patient utilizing [facility]? Yes Additional Call Notes Patient appears adherent to current regimen. Previous lapse in refills due to hospital admissions. Patient's main complaint today is dizziness. Patient checking his BP daily at home. Last 3 daysof readings: 107/50, 110/56, 109/55. Torsemide was recently increased from 20 mg to 100 mg, but patient states this is temporary and will be evaluated at cardiology visit this week. Will send cardiology message to make aware of dizziness. Will also advise to consider SGLT2 therapy for patient. Patient monitors weight at home and denies acute changes. Advised to continue monitoring BP andweight daily. Patient reports taking Vitamin B12 supplement, but no recent B12 level drawn. Orders placed today. ~30 minute CMR Pennie Edwards RPh Clinical Pharmacist [facility]) 05/09/2023, 11:46 AM documented in this encounter Plan of Treatment Upcoming Encounters Date Type Specialty Care Team Description 05/11/2023 Office Visit Cardiology Luh Garcia CRNP [address] [place] [phone] 06/20/2023 Office Visit Family Medicine Ben Cisneros MD [address] [place] [address] [place] [phone] 07/12/2023 Nurse Only Ancillary Rubina Nurse [facility] [address] [place] [address] [place] [phone] 08/03/2023 Telemedicine Nutrition Services Kelly Peraza RDN [address] [place] [phone] 11/29/2023 Office Visit Dermatology Dalila West PA-C [address] [place] [address] [place] [phone] Scheduled Orders Name Type Priority Associated Diagnoses Orde r Schedule VITAMIN B12 Lab Routine Chronic kidney disease, stage 3b (HCC) snf use of drug Expected: 05/23/2023 (Approximate), Expires: 05/09/2024 Health Maintenance Due Date Last Done Comments COVID-19 Vaccine (4 - Moderna series) 03/04/2022 01/07/2022, 12/31/2020, 12/03/2020 CKD PHOS USE SMARTSET 72418 05/12/202305/02, 10/05/2020, 04/01/2020, Additional history exists Influenza Vaccine (FLU shot) (#1) 2023 07/08/2022, 06/17/2021, 07/22/2020, Additional history exists Depression Screening, Annual for Pts 12 and Over 07/08/2023 07/08/2022 DTaP,Tdap,and Td Vaccines (2 - Td or Tdap) 10/14/2023 10/14/2013, 07/22/2008 Albumin/Creatinine Ratio 02/15/2024 023, 04/07/2022, 10/05/2020, Additional history exists CKD HGB USE SMARTSET 45665 02/15/202402/14, 04/07/2022, 10/05/2020, Additional history exists Pneumococcal [...] as of this encounter Visit Diagnoses Diagnosis Encounter for medication review- Primary Encounter for long-term (current) use of other medications 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
--- OUTSIDE RECORDS SUMMARY | 2023-09-09 22:16 | External Medical Summary ---
Author Name Unknown Address Unknown Organization [id number]:[facility] [place] [facility] [address] [place] [address] Laboratory Report Ordering Provider Test Date Status RABIA VILLAGOMEZ 05/03/2023 10:01:08 Final Observation Date Value Abnormality Reference (Units ) Status MYCODE SPECIMEN-SST 05/03/2023 10:01:08 Freezing of extracted DNA, whole blood and/or serum. Final Performing Location [facility] - [address] [place] [address]
--- OUTSIDE RECORDS SUMMARY | 2023-09-09 22:16 | External Medical Summary ---
Author Name Unknown Address Unknown Organization [id number][place] [place] [address] [facility] [address] Laboratory Report Ordering Provider Test Date Status NIKA BELL 05/03/2023 10:01:08 Final Observation Date Value Abnormality Reference (Units ) Status BUN 05/03/2023 10:01:08 35 Above high normal 6-20 (mg/dL) Final Creatinine 05/03/2023 10:01:08 2.0 Above high normal 0.6-1.2 (mg/dL) Final Glomerular filtration rate/1.73 sq M.predicted [Volume Rate/Area] in Serum, Plasma or Blood by Creatinine-based formula (CKD-EPI) 05/03/2023 10:01:08 32 Below low normal >=60 (mL/min) Final eGFR is calculated based on the CKD-EPI 2020 equation SODIUM 05/03/2023 10:01:08 138 135-146 (m mol/L) Final Potassium 05/03/2023 10:01:08 4.2 3.5-5.1 (m mol/L) Final Cl 05/03/2023 10:01:08 95 Below low normal 98- 107 (mmol/L) Final CO2 05/03/2023 10:01:08 32 22-32 (mmo l/L) Final Anion gap 05/03/2023 10:01:08 11 7-15 (mmol /L) Final Glucose 05/03/2023 10:01:08 117 70-120 (mg /dL) Final Calcium 05/03/2023 10:01:08 9.7 8.4-10.2 ( mg/dL) Final Performing Location [facility] [address] [place] [address]
--- OUTSIDE RECORDS SUMMARY | 2023-09-09 22:16 | External Medical Summary | Summary of Care ---
Author Name Unknown Organization [facility] Address [address] [place] [address] Phone [phone] Care Team Providers Care Telecommunications Line Installer Name Role Phone Ben Cisneros MD Primary Care Provider Reason for Visit * Reason Onset Date Comments Home Health 05/03/2023 Encounter Details Date Type Department Care Team Description 05/03/2023 Telephone Family Medicine [address] [phone] Ben iCsneros MD [address] [place] [address] [place] [address] Home Health Allergies Active Allergy Reactions Severity Noted Date Comments No Known Drug Allergy 10/12/2000 documented as of this encounter (statuses as of 05/03/2023) Medications Medication Sig Dispensed Refills Start Date [...] summer., Informant: Patient, Reported on 04/17/2023 Saline [place] 0.65 % Nasal Solution ([place]) Administer into nostril 1 [place] as needed for Congestion. 60 mL 5 [...] 100 Tablet 1 03/13/2023 4 Active Ipratropium [place] HFA 17 MCG/ACT Inhalation Aerosol Solution (Atrovent Hfa)Indications:[place] workers pneumoconiosis (HCC) INHALE TWO PUFFS BY MOUTH FOUR TIMES A DAY - MORNING, NOON, EVENING, AND BEFORE BEDTIME 12.9 g 03/06/2023 4 Active Citalopram Hydrobromide 10 MG [...] as of this encounter (statuses as of 05/03/2023) Active Problems Problem Noted Date Hospital discharge follow-up 04/10/2023 Chronic systolic heart failure 3 Interstitial pulmonary disease 3 Pleural effusion due to CHF (congestive heart failure) 04/10/2023 Medical home patient encounter 3 Nocturnal hypoxemia 04/08/2022 Overview: Wears 2 LPM via [place], DME: [facility] Chronic rhinitis 04/08/2022 Lung nodules 04/08/2022 [...] appointment. GENERAL OSTEOARTHROSIS INSOMNIA W SLEEP APNEA [place] workers pneumoconiosis Restrictive lung disease documented as of this encounter (statuses as of 05/03/2023) Resolved Problems Problem Noted Date Resolved Date [...] Rotator cuff rupture 05/22/2003 05/10/2018 LOC PRIM [id number] 05/22/2003 10/16/19 15 Prepatellar bursitis 05/22/2003 10/16/2014 Inflammation of sacroiliac joint 10/12/2001 10/16/2014 LOC PRIM OSTEOARTH-HAND 10/12/2001 10/16/19 15 Respiratory abnormality 07/31/20 09 Overview: ICD-10 update of inactive term Umbilical hernia 05/10/2018 Insomnia 10/16/2014 Overview: ICD-10 update of inactive term COPD, severity to be determined 07/07/2011 Allergic rhinitis 05/10/2018 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 07/31/20 09 Bilateral carpal tunnel syndrome 05/10/2018 CKD (chronic kidney disease), stage III 12/11/2018 Benign hypertension with CKD (chronic kidney disease) stage III 02/11/2021 Overview: Per CKD protocol documented as of this encounter (statuses as of 05/03/2023) Immunizations Name Administration Dates Next Due COVID-19 [...] encounter Miscellaneous Notes * Telephone Encounter - Sole Phillips LPN - 05/03/2023 12:59 PM EDT Provider to address: Ben Cisneros MD Reason for Call: Home Health Contact: Telephone Call Contact Type: Information Outcome: FYI to PCP Deyanira from [facility] states: Patient is/has been discharged from Home Health on 05/03/2023 All goals have been met and patient is safe at home Only concern to report is that patient does have some intermittent dizziness when his BP is low which his BP was WNL at today's visit, she educated him on moving positions slowly to avoid dizziness. Total Time including non face to face (minutes): 5 documented in this encounter Plan of Treatment Upcoming Encounters Date Type Specialty Care Team Description 06/20/2023 Office Visit Family Medicine Ben Cisneros MD [address] [place] [address] [place] [phone] 07/12/2023 Nurse Only Ancillary [place], Nurse [facility] [address] [place] [address] [place] [address] 07/13/2023 Office Visit Cardiology Brenton Padilla PA-C [address] [place] [phone] 08/03/2023 Telemedicine Nutrition Services Kelly Peraza, RDN [address] [place] [address] 11/29/2023 Office Visit Dermatology Dalila West PA-C [address] [place] [address] [place] [address] Health Maintenance Due Date Last Done Comments COVID-19 Vaccine (4 - Moderna series) 03/04/2022 01/07/2022, 12/31/2020, 12/03/2020 CKD PHOS USE SMARTSET 82991 05/12/202305/02, 10/05/2020, 04/01/2020, Additional history exists Influenza Vaccine (FLU shot) (#1) 2023 07/08/2022, 06/17/2021, 07/22/2020, Additional history exists Depression Screening, Annual for Pts 12 and Over 07/08/2023 07/08/2022 DTaP,Tdap,and Td Vaccines (2 - Td or Tdap) 10/14/2023 10/14/2013, 07/22/2008 Albumin/Creatinine Ratio 02/15/2024 023, 04/07/2022, 10/05/2020, Additional history exists CKD HGB USE SMARTSET 41440 02/15/202402/14, 04/07/2022, 10/05/2020, Additional history exists Pneumococcal [...] patient or by statute hierarchy) Care Teams Telecommunications Line Installer Relationship Specialty Start Date End Date Ben Cisneros MD [address] [place] [address] [place] [address] PCP - General Family Medicine 05/09/18 documented as of this encounter
--- OUTSIDE RECORDS SUMMARY | 2023-09-09 22:16 | External Medical Summary | Summary of Care ---
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 60 mL 5 [...] 100 Tablet 1 03/13/2023 4 Active Ipratropium [place] HFA 17 MCG/ACT Inhalation Aerosol Solution (Atrovent Hfa)Indications:[place] workers pneumoconiosis (HCC) INHALE TWO PUFFS BY [...] as of this encounter (statuses as of 05/09/2023) Active Problems Problem Noted Date Hospital discharge follow-up 04/10/2023 Chronic systolic heart failure 3 Interstitial pulmonary disease 3 Pleural effusion due to CHF (congestive heart failure) 04/10/2023 Medical home patient encounter 3 Nocturnal hypoxemia 04/08/2022 Overview: Wears 2 LPM via [place], DME: [facility] Chronic rhinitis 04/08/2022 Lung nodules 04/08/2022 Overview: [...] appointment. GENERAL OSTEOARTHROSIS INSOMNIA W SLEEP APNEA [place] workers pneumoconiosis Restrictive lung disease documented as of this encounter (statuses as of 05/09/2023) Resolved Problems Problem Noted Date Resolved Date [...] Rotator cuff rupture 05/22/2003 05/10/2018 LOC PRIM [id number] 05/22/2003 10/16/19 15 Prepatellar bursitis 05/22/2003 10/16/2014 Inflammation of sacroiliac joint 10/12/2001 10/16/2014 LOC PRIM OSTEOARTH-HAND 10/12/2001 10/16/19 15 Respiratory abnormality 07/31/20 09 Overview: ICD-10 update of inactive term Umbilical hernia 05/10/2018 Insomnia 10/16/2014 Overview: ICD-10 update of inactive term COPD, severity to be determined 07/07/2011 Allergic rhinitis 05/10/2018 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 PHARMACY MTM PROGRESS NOTE [facility] ([facility] [address] [facility] [address] Service Delivery Delivery Method: Phone Outcome: CMR [...] Diagnoses: Chronic systolic heart failure (HCC) Ipratropium [place] HFA 17 MCG/ACT Inhalation Aerosol Solution (Atrovent Hfa) Ben Cisneros MD INHALE TWO PUFFS BY MOUTH FOUR TIMES A DAY - MORNING, NOON, EVENING, AND BEFORE BEDTIME Associated Diagnoses: [place] workers pneumoconiosis (HCC) Isosorbide Dinitrate 10 MG Oral Tablet (Isordil) Ben Cisneros MD Take 1 Tablet by mouth in the morning and 1 Tablet before bedtime. Associated Diagnoses: Chronic systolic heart failure (HCC) Loratadine 10 MG Oral Capsule History Per Patient Associated Diagnoses: -- oxygen IN GAS History Per Patient Associated Diagnoses: -- Notes: NPI: Electronically Signed by: Delym Harry LPN Pantoprazole Sodium 20 MG Oral [...] Diagnoses: Dyslipidemia, goal LDL below 100 Saline [place] 0.65 % Nasal Solution ([place]) DAV Nicole Administer into nostril 1 [place] as needed for Congestion. Associated Diagnoses: -- [...] Patient o Was the patient in a skilled nursing care (LTC) facility when the CMR was completed? No o Pharmacist's availability for questions: Monday-Monday 8:00am-4:30pm Takeaway Information o Will the Patient Takeaway be sent to the Patient or someone else? Patient o Language Template for the Patient Takeaway: Mongolian o Additional notes for the Patient Takeaway (optional): N/A I attest that I have reviewed and updated the patient's conditions, allergies, and medications to the best of my ability. Patient Access: Is patient utilizing [facility]? Yes Is patient utilizing [facility]? Yes Additional Call Notes Patient appears adherent [...] Luh Garcia CRNP [address] [place] [address] 06/20/2023 Office Visit Family Medicine Ben Cisneros MD [address] [place] [address] [place] [address] 07/12/2023 Nurse Only Ancillary Rubina Nurse Annual [facility] [address] [place] [address] [place] [address] 08/03/2023 Telemedicine Nutrition Services Kelly Peraza RDN [address] [place] [address] 11/29/2023 Office Visit Dermatology Dalila West PA-C [address] [place] [address] [place] [address] Scheduled Orders Name Type Priority Associated Diagnoses Orde r Schedule VITAMIN B12 Lab Routine Chronic kidney disease, stage 3b (HCC) senior care use of drug Expected: 05/23/2023 (Approximate), Expires: 05/09/2024 Health Maintenance Due Date Last Done Comments COVID-19 Vaccine (4 - Moderna series) 03/04/2022 01/07/2022, 12/31/2020, 12/03/2020 CKD PHOS USE SMARTSET 46425 05/12/202305/02, 10/05/2020, 04/01/2020, Additional history exists Influenza Vaccine (FLU shot) (#1) 2023 07/08/2022, 06/17/2021, 07/22/2020, Additional history exists Depression Screening, Annual for Pts 12 and Over 07/08/2023 07/08/2022 DTaP,Tdap,and Td Vaccines (2 - Td or Tdap) 10/14/2023 10/14/2013, 07/22/2008 Albumin/Creatinine Ratio 02/15/2024 023, 04/07/2022, 10/05/2020, Additional history exists CKD HGB USE SMARTSET 90022 02/15/202402/14, 04/07/2022, 10/05/2020, Additional history exists Pneumococcal [...] (HCC) Chronic kidney disease, stage 3b (HCC) senior care use of drug Encounter for long-term (current) [...] patient or by statute hierarchy) Care Teams Rug Dry Room Attendant Relationship Specialty Start Date End Date Ben Cisneros MD [address] [place] [address] [place] [address] PCP - General Family Medicine 05/09/18 documented as of this encounter
--- OUTSIDE RECORDS SUMMARY | 2023-09-09 22:16 | External Medical Summary | Summary of Care ---
Author Name Unknown Organization [facility] Address [address] [place] [address] Phone [phone] Care Team Providers Care Fish Hatchery Supervisor Name Role Phone Ben Cisneros MD Primary Care Provider [phone] Reason for Visit * Reason Comments Outpatient Testing Encounter Details Date Type Department Care Team Description 05/03/2023 Laboratory Laboratory [address] [place] [phone] [place] [address] [employer] Other*[id number]; Chronic systolic heart failure (HCC) Allergies Active Allergy Reactions Severity Noted [...] summer., Informant: Patient, Reported on 04/17/2023 Saline [place] 0.65 % Nasal Solution ([place]) Administer into nostril 1 [place] as needed for Congestion. 60 mL 5 [...] CUT OR CHEW 100 Tablet 1 03/13/2023 Active Ipratropium [place] HFA 17 MCG/ACT Inhalation Aerosol Solution (Atrovent Hfa)Indications:[place] workers pneumoconiosis (HCC) INHALE TWO PUFFS BY MOUTH FOUR TIMES A DAY - MORNING, NOON, EVENING, AND BEFORE BEDTIME 12.9 g 03/06/2023 Active Citalopram Hydrobromide 10 MG Oral Tablet [...] hypoxemia 04/08/2022 Overview: Wears 2 LPM via [place], DME: [facility] Chronic rhinitis [...] appointment. GENERAL OSTEOARTHROSIS INSOMNIA W SLEEP APNEA [place] workers pneumoconiosis Restrictive lung disease documented as [...] Rotator cuff rupture 05/22/2003 05/10/2018 LOC PRIM [id number] 05/22/2003 10/16/19 15 Prepatellar bursitis 05/22/2003 10/16/2014 Inflammation of sacroiliac joint 10/12/2001 10/16/2014 LOC PRIM OSTEOARTH-HAND 10/12/2001 10/16/19 15 Respiratory abnormality 07/31/20 09 Overview: ICD-10 update of inactive term Umbilical hernia 05/10/2018 Insomnia 10/16/2014 Overview: ICD-10 update of inactive term COPD, severity to be determined 07/07/2011 Allergic rhinitis 05/10/2018 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 07/31/20 09 Bilateral carpal tunnel syndrome 05/10/2018 [...] Visit Family Medicine Ben Cisneros MD [address] [place] [address] [place] [address] 07/12/2023 Nurse Only Ancillary Rubina, Nurse Annual Wellness [address] [place] [address] [place] [address] 07/13/2023 Office Visit Cardiology Brenton Padilla PA-C [address] [place] [address] 08/03/2023 Telemedicine Nutrition Services Kelly Peraza RDN [address] [place] [address] 11/29/2023 Office Visit Dermatology Dalila West PA-C [address] [place] [address] [place] [address] Pending Results Name Type Priority Associated Diagnoses Date /Time MYCODE SUBSEQUENT ADULT Lab Routine [employer] Other*[id number] 05/03/2023 10:01 AM EDT BASIC METABOLIC PANEL Lab Routine Chronic systolic heart failure (HCC) 05/03/2023 10:01 AM EDT BNP, NT-PRO Lab Routine Chronic systolic heart failure (HCC) 05/03/2023 10:01 AM EDT MYCODE SST1 Lab Routine [employer] Other*[id number] 05/03/2023 10:01 AM EDT MYCODE SST2 Lab Routine [employer] Other*[id number] 05/03/2023 10:01 AM EDT Health Maintenance Due Date Last Done Comments COVID-19 Vaccine (4 - Moderna series) 03/04/2022 01/07/2022, 12/31/2020, 12/03/2020 CKD PHOS USE SMARTSET 31906 05/12/202305/02, 10/05/2020, 04/01/2020, Additional history exists Influenza Vaccine (FLU shot) (#1) 2023 07/08/2022, 06/17/2021, 07/22/2020, Additional history exists Depression Screening, Annual for Pts 12 and Over 07/08/2023 07/08/2022 DTaP,Tdap,and Td Vaccines (2 - Td or Tdap) 10/14/2023 10/14/2013, 07/22/2008 Albumin/Creatinine Ratio 02/15/2024 023, 04/07/2022, 10/05/2020, Additional history exists CKD HGB USE SMARTSET 99192 02/15/202402/14, 04/07/2022, 10/05/2020, Additional history exists Pneumococcal [...] as of this encounter Visit Diagnoses Diagnosis [employer] Other*[id number] Chronic systolic heart failure (HCC) Chronic systolic [...] patient or by statute hierarchy) Care Teams Fish Hatchery Supervisor Relationship Specialty Start Date End Date Ben Cisneros MD [address] [place] [address] [place] [address] PCP - General Family Medicine 05/09/18 documented as of this encounter
--- OUTSIDE RECORDS SUMMARY | 2023-09-09 22:16 | External Medical Summary | Summary of Care ---
Author Name Unknown Organization [facility] Address [address] [place] [address] Phone [phone] Care Team Providers Care Crop Farm Helper Name Role Phone Ben Cisneros MD Primary Care Provider [phone] Reason for Referral * Precert (Within 10 days (routine)) - Authorized Specialty Diagnoses / Procedures Referred By Contac t Referred To Contact Cardiac Studies Diagnoses HFrEF (heart failure with reduced ejection fraction) ([facility]) Procedures ECHO, TTE, LIMITED Luh Garcia CRNP [address] [place] [address] Referral ID Status Reason Start Date Expiration Date V isits Requested Visits Authorized [id number] Authorized Precert 08/11/2023 999 999 Reason for Visit * Reason Comments Follow Up Encounter Details Date Type Department Care Team Description 05/11/2023 Office Visit Cardiology, [facility] [address] [place] [address] Luh Garcia CRNP [address] [employer] [employer] [place] [address] HFrEF (heart failure with reduced ejection fraction) ([facility])*; Stress-induced cardiomyopathy Allergies Active Allergy Reactions Severity [...] top 454 g 0 2 Active Saline [place] 0.65 % Nasal Solution ([place]) Administer into nostril 1 [place] as needed for Congestion. 60 mL 5 [...] Tablet 1 3 03/12/20 24 Active Ipratropium [place] HFA 17 MCG/ACT Inhalation Aerosol Solution (Atrovent [...] hypoxemia 04/08/2022 Overview: Wears 2 LPM via [place], DME: [facility] Chronic rhinitis 04/08/2022 Lung [...] appointment. GENERAL OSTEOARTHROSIS INSOMNIA W SLEEP APNEA [place] workers pneumoconiosis Restrictive lung disease documented as [...] Rotator cuff rupture 05/22/2003 05/10/2018 LOC PRIM [id number] 05/22/2003 10/16/19 15 Prepatellar bursitis 05/22/2003 10/16/2014 Inflammation of sacroiliac joint 10/12/2001 10/16/2014 LOC PRIM OSTEOARTH-HAND 10/12/2001 10/16/19 15 Respiratory abnormality 07/31/20 09 Overview: ICD-10 update of inactive term Umbilical hernia 05/10/2018 Insomnia 10/16/2014 Overview: ICD-10 update of inactive term COPD, severity to be determined 07/07/2011 Allergic rhinitis 05/10/2018 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 NOS-HAND CANDY MOLDER 07/31/20 09 Bilateral carpal tunnel syndrome 05/10/2018 [...] AM EDT 05/11/2023 Cardiology Follow Up Primary Community Development Technician: Dr. Urena Cardiac Problems: 1. 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 CKD Stage 3 3. HTN HPI: Ned Elliott is a 87 year old male presents for follow up. Last seen in our office by Dr. Urena on 03/13/23 following a recent hospitalization on 03/06/23 at [facility] for acute hypoxic respiratory failure secondary to [...] cream on top 454 g 0 Saline [place] 0.65 % Nasal Solution ([place]) Administer into nostril 1 [place] as needed for Congestion. 60 mL 5 [...] CUT OR CHEW 100 Tablet 1 Ipratropium [place] HFA 17 MCG/ACT Inhalation Aerosol Solution (Atrovent [...] bronchitis due to Rhinovirus 03/06/2023 admitted [facility] Acute respiratory failure (HCC) 03/28/2023 [facility], treated with SoluMedrol, ceftriaxone, azithromycin, culture grew stenotrophomonas maltophilia Allergic rhinitis 11/30/2000 Benign hypertension with CKD (chronic kidney disease) stage III ([facility]) Benign neoplasm of colon 02/28/2008 adenomatous/ repeat colonoscopy in 3 yrs Bilateral carpal tunnel syndrome Bronchiectasis ([facility]) CKD (chronic kidney disease), stage III ([facility]) [place] workers' pneumoconiosis ([facility]) COPD, mild ([facility]) Degenerative lumbar disc 05/13/2019 L4-5 Essential hypertension with goal blood pressure less than 140/90 Gastroesophageal reflux disease without esophagitis 08/18/2021 Generalized osteoarthritis 10/02/2000 Inflammation of sacroiliac joint (HCC) 10/12/2001 right side Insomnia with sleep apnea 10/02/2000 Interstitial emphysema ([facility]) Osteoarthritis of hand 10/12/2001 right hand Pneumonia due to hemophilus influenzae ([facility]) 08/16/2022 Prepatellar bursitis 05/22/2003 Restrictive lung disease 05/19/2017 Family History Problem Relation Age of Onset Heart Disorder Mother dec. age 82 Heart Disorder Father dec.age 67 , electrocution at mines COPD Father Heart disease Brother Cancer Brother skin Cancer Uncle (Unspecified) dec. 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 Echocardiogram [facility] 03/28/2023 Left ventricle is normal in size [...] additional questions or concerns. DAV Tran Cardiology, [facility] [address] [place] [address] I spent a total of 45 minutes on the date of service in preparation, delivery, and documentation ofthe care provided to Ned Elliott excluding any time spent in the performance of separately billed services. This chart was completed in part utilizing [employer] Speech Voice Recognition Software. Grammatical errors, random [...] Specialty Care Team Description 06/12/2023 Laboratory Laboratory [place], Lab [address] [place] [address] 06/20/2023 Office Visit Family Medicine Ben Cisneros MD [address] [place] [address] [place] [address] 07/12/2023 Nurse Only Ancillary Rubina Nurse [address] [place] [address] 08/03/2023 Telemedicine Nutrition Services Kelly Peraza, RDN [address] [place] [address] 08/15/2023 Cardiac Studies Cardiac Studies 08/21/2023 Office Visit Cardiology Luh Garcia CRNP [address] [place] [address] 11/29/2023 Office Visit Dermatology Dalila West PA-C [address] [place] [address] [place] [address] Scheduled Orders Name Type Priority Associated Diagnoses Orde r Schedule EKG EKG Routine HFrEF (heart failure with reduced ejection fraction) ([facility]) Ordered: 05/11/2023 BASIC METABOLIC PANEL Lab Routine HFrEF (heart failure with reduced ejection fraction) ([facility]) Expected: 06/11/2023, Expires: 05/11/2024 ECHO, TTE, LIMITED Echocardiology Routine HFrEF (heart failure with reduced ejection fraction) ([facility]) Expected: 08/11/2023, Expires: 05/11/2024 Health Maintenance Due Date Last Done Comments COVID-19 Vaccine (4 - Moderna series) 03/04/2022 01/07/2022, 12/31/2020, 12/03/2020 CKD PHOS USE SMARTSET 64797 05/12/202305/02, 10/05/2020, 04/01/2020, Additional history exists Influenza Vaccine (FLU shot) (#1) 2023 07/08/2022, 06/17/2021, 07/22/2020, Additional history exists Depression Screening, Annual for Pts 12 and Over 07/08/2023 07/08/2022 DTaP,Tdap,and Td Vaccines (2 - Td or Tdap) 10/14/2023 10/14/2013, 07/22/2008 Albumin/Creatinine Ratio 02/15/2024 023, 04/07/2022, 10/05/2020, Additional history exists CKD HGB USE SMARTSET [id number] 02/15/202402/14, 04/07/2022, 10/05/2020, Additional history exists Pneumococcal [...] Agents on File Name Relationship Healthcare Agent [facility] Communication Susu Quezada Adult Child Health Care Repr esentative (appointed verbally by patient or by statute hierarchy) Care Teams Crop Farm Helper Relationship Specialty Start Date End Date Ben Cisneros MD [address] [place] [address] [place] [address] PCP - General Family Medicine 05/09/18 documented as of this encounter"
--- OUTSIDE RECORDS SUMMARY | 2023-09-09 22:16 | External Medical Summary | Summary of Care ---
Author Name Unknown Organization [facility] Address [address] [place] [address] Phone [phone] Care Team Providers Care Under Sheriff Name Role Phone Ben Cisneros MD Primary Care Provider Reason for Referral * Evaluate & Treat - Unlimited Visits (Within 10 days (routine)) - Authorized Specialty Diagnoses / Procedures Referred By Eleazar landaverde Referred To Contact Associate Professor Of Physics Diagnoses Chronic systolic heart failure (HCC) Ben Cisneros MD [address] [place] [address] Referral ID Status Reason Start Date Expiration Date Visits Requested Visits Authorized [id number] Authorized Specialty Services Required 05/01/2023 1 1 Question Answer Referral Priority Within 10 days (routine) Program Type Case Management Complex Case Management [facility] Device(s) Requested Scale Alarm Settings Standard per protocol Comments Average clinic weights: 179 - 186 lbs (fully clothed) Average home weights: 170-178 lbs (naked) Confirmed address [facility] as correct. Thank you. Reason for Visit * Reason Onset Date Comments case management 05/01/2023 Encounter Details Date Type Department Care Team Description 05/01/2023 Associate Professor Of Physics Telephone Family Medicine [address] [phone] Jeanie Estrada, RN [address] [place] [address] case management Allergies Active Allergy Reactions Severity Noted Date Comments No Known Drug Allergy 10/12/2000 documented as of this encounter (statuses as of 05/01/2023) Medications Medication Sig Dispensed Refills Start Date [...] summer., Informant: Patient, Reported on 04/17/2023 Saline [place] 0.65 % Nasal Solution ([place]) Administer into nostril 1 [place] as needed for Congestion. 60 mL 5 [...] 100 Tablet 1 03/13/2023 4 Active Ipratropium [place] HFA 17 MCG/ACT Inhalation Aerosol Solution (Atrovent Hfa)Indications:[place] workers pneumoconiosis (HCC) INHALE TWO PUFFS BY [...] as of this encounter (statuses as of 05/01/2023) Active Problems Problem Noted Date Hospital discharge follow-up 04/10/2023 Chronic systolic heart failure 3 Interstitial pulmonary disease 3 Pleural effusion due to CHF (congestive heart failure) 04/10/2023 Medical home patient encounter 3 Nocturnal hypoxemia 04/08/2022 Overview: Wears 2 LPM via [place], DME: [facility] Chronic rhinitis 04/08/2022 Lung nodules [...] appointment. GENERAL OSTEOARTHROSIS INSOMNIA W SLEEP APNEA [place] workers pneumoconiosis Restrictive lung disease documented as of this encounter (statuses as of 05/01/2023) Resolved Problems Problem Noted Date Resolved Date [...] Rotator cuff rupture 05/22/2003 05/10/2018 LOC PRIM [id number] 05/22/2003 10/16/19 15 Prepatellar bursitis 05/22/2003 10/16/2014 Inflammation of sacroiliac joint 10/12/2001 10/16/2014 LOC PRIM OSTEOARTH-HAND 10/12/2001 10/16/19 15 Respiratory abnormality 07/31/20 09 Overview: ICD-10 update of inactive term Umbilical hernia 05/10/2018 Insomnia 10/16/2014 Overview: ICD-10 update of inactive term COPD, severity to be determined 07/07/2011 Allergic rhinitis 05/10/2018 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 [facility] trigger: Patient answered YES to question #7 [...] daughter to pick him up some at [facility]. Reports his legs are still weak, they [...] shipping box. That they will come by [employer]. Confirmed home address. Reports BP this morning [...] and ProBNP was elevated to 10,943. Uses [facility]. Patient asking for a [...] Specialty Care Team Description 05/03/2023 Laboratory Laboratory [place], Lab [address] [place] [address] 06/20/2023 Office Visit Family Medicine Ben Cisneros MD [address] [place] [address] [place] [address] 07/12/2023 Nurse Only Ancillary [place], Nurse Annual Wellness [address] [place] [address] [place] [address] 07/13/2023 Office Visit Cardiology Brenton Padilla PA-C [address] [place] [address] 08/03/2023 Telemedicine Nutrition Services Kelly Peraza, DARCY [address] [place] [address] 11/29/2023 Office Visit Dermatology Dalila West PA-C [address] [place] [address] [place] [address] Scheduled Referrals Name Type Priority Associated Diagnoses Orde r Schedule REMOTE PATIENT MONITORING REFERRAL Referral Within 10 days (routine) Chronic systolic heart failure (HCC) Ordered: 05/01/2023 Health Maintenance Due Date Last Done Comments COVID-19 Vaccine (4 - Moderna series) 03/04/2022 01/07/2022, 12/31/2020, 12/03/2020 CKD PHOS USE SMARTSET 46136 05/12/202305/02, 10/05/2020, 04/01/2020, Additional history exists Influenza Vaccine (FLU shot) (#1) 2023 07/08/2022, 06/17/2021, 07/22/2020, Additional history exists Depression Screening, Annual for Pts 12 and Over 07/08/2023 07/08/2022 DTaP,Tdap,and Td Vaccines (2 - Td or Tdap) 10/14/2023 10/14/2013, 07/22/2008 Albumin/Creatinine Ratio 02/15/2024 023, 04/07/2022, 10/05/2020, Additional history exists CKD HGB USE SMARTSET 42384 02/15/202402/14, 04/07/2022, 10/05/2020, Additional history exists Pneumococcal [...] patient or by statute hierarchy) Care Teams Under Sheriff Relationship Specialty Start Date End Date Ben Cisneros MD [address] [place] [address] [place] [phone] PCP - General Family Medicine 05/09/18 documented as of this encounter
--- OUTSIDE RECORDS SUMMARY | 2023-09-09 22:16 | External Medical Summary | Summary of Care ---
Author Name Unknown Organization [facility] Address [address] [place] [address] Phone [phone] Care Team Providers Care Study Manager Name Role Phone Ben Cisneros MD Primary Care Provider [phone] Reason for Visit * Reason Onset Date Comments Order Request 05/10/2023 Encounter Details Date Type Department Care Team Description 05/10/2023 Telephone Cardiology, [facility] [address] [place] [address] Luh Garcia CRNP [address] [facility] [address] Order Request Allergies Active Allergy Reactions Severity Noted Date [...] top 454 g 0 2 Active Saline [place] 0.65 % Nasal Solution ([place]) Administer into nostril 1 [place] as needed for Congestion. 60 mL 5 [...] NOT CRUSH, CUT OR CHEW 100 Tablet 3 03/12/20 24 Active Ipratropium [place] HFA 17 MCG/ACT Inhalation Aerosol Solution (Atrovent Hfa)Indications:[place] workers pneumoconiosis (HCC) INHALE TWO PUFFS BY MOUTH FOUR TIMES A DAY - MORNING, NOON, EVENING, AND BEFORE BEDTIME 12.9 g 3 03/05/20 24 Active Citalopram Hydrobromide 10 [...] the morning. 90 Tablet 3 3 Active Torsemide 100 MG [...] hypoxemia 04/08/2022 Overview: Wears 2 LPM via [place], DME: [facility] Chronic rhinitis [...] appointment. 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 During the call, patient reported he has experienced more troublesome dizziness throughout the day. He reports his last 3 BP readings at home have been: 107/50, 110/56, 109/55. Torsemide was recently increased from 20 mg to 100 mg temporarily. He denies any recent falls or any other complaints. It was also recognized that patient has diagnosis of heart failure and is not currently prescribed SGLT2 therapy. Spoke with patient regarding starting Jardiance as it has proven CV benefit in patients with all degrees of EF. Reviewed safety profile with patient and advised although medication alsoused in diabetes, there is no risk of hypoglycemia. We did discuss that they may also need to use their loop diuetic less as the SGLT2 also may cause some volume offload itself, and dicussed to monitor that and advise your office immediately if they are experiencing any symptoms of dehydration. Rx pended for Jardiance 10 mg for your consideration. Patient is scheduled for office visit tomorrow. Please review above and approve Rx if appropriate. Thank you, Pennie Edwards PharmD Clinical Pharmacist Centralized Clinical Pharmacy Services (CCPS) (formerly Telepharmacy) 05/10/2023 4:49 PM documented in this encounter Plan of Treatment Upcoming Encounters Date Type Specialty Care Team Description 06/12/2023 Laboratory Laboratory [place], Lab [facility] [address] [place] [address] [place] [address] 06/20/2023 Office Visit Family Medicine Ben Cisneros MD [address] [place] [address] [place] [address] 07/12/2023 Nurse Only Ancillary [place], Nurse Annual Wellness [address] [place] [address] [place] [address] 08/03/2023 Telemedicine Nutrition Services Kelly Peraza, BARBARAN [address] [place] [address] 08/15/2023 Cardiac Studies Cardiac Studies 08/21/2023 Office Visit Cardiology Luh Garcia CRNP [address] [place] [address] 11/29/2023 Office Visit Dermatology Dalila West PA-C [address] [place] [address] [place] [address] Health Maintenance Due Date Last Done Comments COVID-19 Vaccine (4 - Moderna series) 03/04/2022 01/07/2022, 12/31/2020, 12/03/2020 CKD PHOS USE SMARTSET 06525 05/12/202305/02, 10/05/2020, 04/01/2020, Additional history exists Influenza Vaccine (FLU shot) (#1) 2023 07/08/2022, 06/17/2021, 07/22/2020, Additional history exists Depression Screening, Annual for Pts 12 and Over 07/08/2023 07/08/2022 DTaP,Tdap,and Td Vaccines (2 - Td or Tdap) 10/14/2023 10/14/2013, 07/22/2008 Albumin/Creatinine Ratio 02/15/2024 023, 04/07/2022, 10/05/2020, Additional history exists CKD HGB USE SMARTSET 42176 02/15/202402/14, 04/07/2022, 10/05/2020, Additional history exists Pneumococcal [...] Agents on File Name Relationship Healthcare Agent [facility] Communication Susu Quezada Adult Child Health Care Repr esentative (appointed verbally by patient or by statute hierarchy) Care Teams Study Manager Relationship Specialty Start Date End Date Ben Cisneros MD [address] [place] [address] [place] [address] PCP - General Family Medicine 05/09/18 documented as of this encounter
--- OUTSIDE RECORDS SUMMARY | 2023-09-09 22:16 | External Medical Summary | Summary of Care ---
Author Name Unknown Organization [facility] Address [address] [place] [address] Phone [phone] Care Team Providers Care Die Technician Name Role Phone Ben Cisneros MD Primary Care Provider [phone] Encounter Details Date Type Department Care Team Description 05/09/2023 Orders Only Outcomes Research Department [address], [place] [address] Tere Christine CHRA [facility] [place] Research Other*[id number] Allergies Active Allergy Reactions Severity Noted Date [...] summer., Informant: Patient, Reported on 04/17/2023 Saline [place] 0.65 % Nasal Solution ([place]) Administer into nostril 1 [place] as needed for Congestion. 60 mL 5 [...] CHEW 100 Tablet 1 03/13/2023 Active Ipratropium [place] HFA 17 MCG/ACT Inhalation Aerosol Solution (Atrovent Hfa)Indications:[place] workers pneumoconiosis (HCC) INHALE TWO PUFFS BY MOUTH FOUR TIMES A DAY - MORNING, NOON, EVENING, AND BEFORE BEDTIME 12.9 g 03/06/2023 Active Citalopram Hydrobromide 10 MG Oral Tablet (CeleXA)Indications: SOLEDAD (generalized anxiety disorder) TAKE ONE TABLET BY MOUTH EVERY MORNING. 100 Tablet 1 03/06/2023 Active Carvedilol 12.5 MG Oral Tablet (Coreg)Indications:P [...] Overview: Wears [address], DME: [facility] Chronic rhinitis 04/08/2022 Lung nodules [...] appointment. 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 07/31/20 09 Bilateral carpal tunnel syndrome [...] Luh Garcia CRNP [address] [place] [address] 06/20/2023 Office Visit Family Medicine Ben Cisneros MD [address] [place] [address] [place] [address] 07/12/2023 Nurse Only Ancillary [place], Nurse Annual Wellness [address] [place] [address] [place] [address] 08/03/2023 Telemedicine Nutrition Services Kelly Peraza RDN [address] [place] [address] 11/29/2023 Office Visit Dermatology Dalila West PA-C [address] [place] [address] [place] [address] Scheduled Orders Name Type Priority Associated Diagnoses Orde r Schedule MYCODE SUBSEQUENT ADULT Lab Routine MyCode Research Other*[id number] Every 6 Months for 2 Occurrences starting 05/09/2023 until 05/28/2024 Health Maintenance Due Date Last Done Comments COVID-19 Vaccine (4 - Moderna series) 03/04/2022 01/07/2022, 12/31/2020, 12/03/2020 CKD PHOS USE SMARTSET 38113 05/12/2023 0810/2021, 10/05/2020, 04/01/2020, Additional history exists Influenza Vaccine (FLU shot) (#1) 2023 07/08/2022, 06/17/2021, 07/22/2020, Additional history exists Depression Screening, Annual for Pts 12 and Over 07/08/2023 07/08/2022 DTaP,Tdap,and Td Vaccines (2 - Td or Tdap) 10/14/2023 10/14/2013, 07/22/2008 Albumin/Creatinine Ratio 02/15/2024 023, 04/07/2022, 10/05/2020, Additional history exists CKD HGB USE SMARTSET 32156 02/15/202402/14, 04/07/2022, 10/05/2020, Additional history exists Pneumococcal [...] this encounter Visit Diagnoses Diagnosis MyCode Research Other*[id number] documented in this encounter Advance Directives Latest Code Status on File Code Status Date Activated Date Inactivated Comments Full Code 06/26/2019 12:28 PM 06/26/2019 5:13 PM This order reflects the patients wishes and were consensually agreed upon. Healthcare Agents on File Name Relationship Healthcare Agent [facility] p Communication Susu Quezada Adult Child Health Care Repr esentative (appointed verbally by patient or by statute hierarchy) Care Teams Die Technician Relationship Specialty Start Date End Date Ben Cisneros MD [address] [place] [address] [place] [address] PCP - General Family Medicine 05/09/18 documented as of this encounter
--- OUTSIDE RECORDS SUMMARY | 2023-09-09 22:16 | External Medical Summary | Summary of Care ---
Author Name Unknown Organization [facility] Address [address] [place] [address] Phone [phone] Care Team Providers Care Mastic Floor Layer Name Role Phone Ben Cisneros MD Primary Care Provider Reason for Visit * Reason Onset Date Comments Order Request 05/10/2023 Encounter Details Date Type Department Care Team Description 05/10/2023 Telephone Cardiology, [facility] [address] [place] [address] Luh Garcia CRNP [address] [facility] [place] [address] Order Request Allergies Active Allergy Reactions Severity [...] top 454 g 0 2 Active Saline [place] 0.65 % Nasal Solution ([place]) Administer into nostril 1 [place] as needed for Congestion. 60 mL 5 [...] 100 Tablet 3 03/12/20 24 Active Ipratropium [place] HFA 17 MCG/ACT Inhalation Aerosol Solution (Atrovent [...] Overview: Wears 2 LPM via [place], DME: [facility] Chronic rhinitis 04/08/2022 [...] appointment. 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 Thank you, Sylvia HoustonD Clinical Pharmacist Centralized Clinical Pharmacy Services (CCPS) (formerly Telepharmacy) 05/10/2023 4:49 PM documented in this encounter Plan of Treatment Upcoming Encounters Date Type Specialty Care Team Description 06/12/2023 Laboratory Laboratory [place], Lab [address] [place] [address] 06/20/2023 Office Visit Family Medicine Ben Cisneros MD [address] [place] [address] [place] [address] 07/12/2023 Nurse Only Ancillary [place], Nurse Annual Wellness [address] [place] [address] [place] [address] 08/03/2023 Telemedicine Nutrition Services Kelly Peraza, DARCY [address] [place] [address] 08/15/2023 Cardiac Studies Cardiac Studies 08/21/2023 Office Visit Cardiology Luh Garcia CRNP [address] [place] [address] 11/29/2023 Office Visit Dermatology Dalila West PA-C [address] [place] [address] [place] [address] Health Maintenance Due Date Last Done Comments COVID-19 Vaccine (4 - Moderna series) 03/04/2022 01/07/2022, 12/31/2020, 12/03/2020 CKD PHOS USE SMARTSET 71134 05/12/202305/02, 10/05/2020, 04/01/2020, Additional history exists Influenza Vaccine (FLU shot) (#1) 2023 07/08/2022, 06/17/2021, 07/22/2020, Additional history exists Depression Screening, Annual for Pts 12 and Over 07/08/2023 07/08/2022 DTaP,Tdap,and Td Vaccines (2 - Td or Tdap) 10/14/2023 10/14/2013, 07/22/2008 Albumin/Creatinine Ratio 02/15/2024 023, 04/07/2022, 10/05/2020, Additional history exists CKD HGB USE SMARTSET 91456 02/15/202402/14, 04/07/2022, 10/05/2020, Additional history exists Pneumococcal [...] patient or by statute hierarchy) Care Teams Mastic Floor Layer Relationship Specialty Start Date End Date Ben Cisneros MD [address] [place] [address] [place] [address] PCP - General Family Medicine 05/09/18 documented as of this encounter
--- OUTSIDE RECORDS SUMMARY | 2023-09-09 22:17 | External Medical Summary | Summary of Care ---
Author Name Unknown Organization [facility] Address [address] [place] [address] Phone [phone] Care Team Providers Care Can Handler Name Role Phone Ben Cisneros MD Primary Care Provider Reason for Visit * Reason Onset Date Comments case management 04/24/2023 Encounter Details Date Type Department Care Team Description 04/24/2023 Hyperbaric Technician Telephone Family Medicine [address] [phone] Jeanie Estrada, RN [address] [place], [place] [id number] case management Allergies Active Allergy Reactions Severity Noted Date Comments No Known Drug Allergy 10/12/2000 documented as of this encounter (statuses as of 04/24/2023) Medications Medication Sig Dispensed Refills Start Date [...] summer., Informant: Patient, Reported on 04/17/2023 Saline [place] 0.65 % Nasal Solution ([place]) Administer into nostril 1 [place] as needed for Congestion. 60 mL 5 [...] 100 Tablet 1 03/13/2023 4 Active Ipratropium [place] HFA 17 MCG/ACT Inhalation Aerosol Solution (Atrovent Hfa)Indications:[place] workers pneumoconiosis (HCC) INHALE TWO PUFFS BY [...] before bedtime. 200 Tablet 1 04/11/2023 Active Torsemide 10 MG Oral Tablet (Demadex)Indications :Chronic systolic heart failure (HCC) Take 2 Tablets by mouth in the morning. 200 Tablet 1 04/11/2023 Active guaiFENesin ER 600 MG Oral Tablet Extended Release 12 Hour (Humibid [place]) Take 1 Tablet by mouth every 12 hours as needed for Cough. 0 Active Torsemide 10 MG Oral Tablet (Demadex) Take 2 Tablets by mouth in the morning. 8 Tablet 0 04/21/2023 Active documented as of this encounter (statuses as of 04/24/2023) Active Problems Problem Noted Date Hospital discharge follow-up 04/10/2023 Chronic systolic heart failure 3 Interstitial pulmonary disease 3 Pleural effusion due to CHF (congestive heart failure) 04/10/2023 Medical home patient encounter 3 Nocturnal hypoxemia 04/08/2022 Overview: Wears 2 LPM via [place], DME: [facility] Chronic rhinitis 04/08/2022 [...] appointment. GENERAL OSTEOARTHROSIS INSOMNIA W SLEEP APNEA [place] workers pneumoconiosis Restrictive lung disease documented as of this encounter (statuses as of 04/24/2023) Resolved Problems Problem Noted Date Resolved Date [...] Rotator cuff rupture 05/22/2003 05/10/2018 LOC PRIM [id number] 05/22/2003 10/16/19 15 Prepatellar bursitis 05/22/2003 10/16/2014 Inflammation of sacroiliac joint 10/12/2001 10/16/2014 LOC PRIM OSTEOARTH-HAND 10/12/2001 10/16/19 15 Respiratory abnormality 07/31/20 09 Overview: ICD-10 update of inactive term Umbilical hernia 05/10/2018 Insomnia 10/16/2014 Overview: ICD-10 update of inactive term COPD, severity to be determined 07/07/2011 Allergic rhinitis 05/10/2018 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 Alert, oriented, pleasant. [facility] home visit completed today. 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 -no weight gain. Today's weight is 178.8 lbs Recent dx of pneumonia: -short of breath with ambulating short distance -productive cough during the night, taz in museum assistant -[facility] did exchange his concentrator, and bring all new supplies -taking mucinex twice a day -using flutter valve -pulse ox 96% on room air -coming into clinic today for follow up chest xray ordered by pulmonology. Instructed on low sodium diet: -2000 mg per day allowance -use onion powder/garlic powder - not onion salt/garlic salt. -types of foods to avoid - including chicken tenders with sweet baby ray's buffalo sauce. -instructed that low sodium foods are <300 mg per serving -fresh meats are not high in sodium, its the prepared meats or how you cook them. -patient reports he eats lots of fresh veggies. Taking medications as prescribed. Medications not causing any problems. Denies dizziness with ambulation. -denies falls Denies new or uncontrolled pain. Denies feeling feverish. Reports being short of breath, but has been for months. Denies nausea. Bowels moving, denies diarrhea. No incisions or open wounds. Has adequate help caring for self at home. Has been to a follow up appointment Denies any other changes in condition he would like to report. Patient would be interested in a cotton classer aide referral. Message sent to PCP. Next planned contact will be with response from PCP, and next week. documented in this encounter Plan of Treatment Upcoming Encounters Date Type Specialty Care Team Description 04/26/2023 Nutrition Services Nutrition Services Kelly Peraza RDN [address] [address] 06/20/2023 Office Visit Family Medicine Ben Cisneros MD [address] [place] [address] [place] [address] 07/12/2023 Nurse Only Ancillary Nurse Rubina [address] [place] [address] 07/13/2023 Office Visit Cardiology Brenton Padilla PA-C [address] [place] [address] 11/29/2023 Office Visit Dermatology Dalila West PA-C [address] [place] [address] [place] [address] Health Maintenance Due Date Last Done Comments COVID-19 Vaccine (4 - Moderna series) 03/04/2022 01/07/2022, 12/31/2020, 12/03/2020 CKD PHOS USE SMARTSET 64183 05/12/202305/02, 10/05/2020, 04/01/2020, Additional history exists Influenza Vaccine (FLU shot) (#1) 2023 07/08/2022, 06/17/2021, 07/22/2020, Additional history exists Depression Screening, Annual for Pts 12 and Over 07/08/2023 07/08/2022 DTaP,Tdap,and Td Vaccines (2 - Td or Tdap) 10/14/2023 10/14/2013, 07/22/2008 Albumin/Creatinine Ratio 02/15/2024 023, 04/07/2022, 10/05/2020, Additional history exists CKD HGB USE SMARTSET 91581 02/15/202402/14, 04/07/2022, 10/05/2020, Additional history exists Pneumococcal [...] patient or by statute hierarchy) Care Teams Can Handler Relationship Specialty Start Date End Date Ben Cisneros MD [address] [place] [address] [place] [address] PCP - General Family Medicine 05/09/18 documented as of this encounter
--- OUTSIDE RECORDS SUMMARY | 2023-09-09 22:17 | External Medical Summary | Summary of Care ---
Author Name Unknown Organization [facility] Address [address] [place] [address] Phone [phone] Care Team Providers Care Line Dancer Name Role Phone Ben Cisneros MD Primary Care Provider Reason for Visit * Reason Onset Date Comments case management 04/18/2023 Encounter Details Date Type Department Care Team Description 04/18/2023 Risk Adjustment Specialist Telephone Family Medicine [address] [phone] Jeanie Estrada, RN [address], [place] [phone] case management Allergies Active Allergy Reactions Severity Noted Date Comments No Known Drug Allergy 10/12/2000 documented as of this encounter (statuses as of 04/21/2023) Medications Medication Sig Dispensed Refills Start Date [...] summer., Informant: Patient, Reported on 04/17/2023 Saline [place] 0.65 % Nasal Solution ([place]) Administer into nostril 1 [place] as needed for Congestion. 60 mL 5 [...] 100 Tablet 1 03/13/2023 4 Active Ipratropium [place] HFA 17 MCG/ACT Inhalation Aerosol Solution (Atrovent Hfa)Indications:[place] workers pneumoconiosis (HCC) INHALE TWO PUFFS BY [...] as of this encounter (statuses as of 04/21/2023) Active Problems Problem Noted Date Hospital discharge follow-up 04/10/2023 Chronic systolic heart failure 3 Interstitial pulmonary disease 3 Pleural effusion due to CHF (congestive heart failure) 04/10/2023 Medical home patient encounter 3 Nocturnal hypoxemia 04/08/2022 Overview: Wears 2 LPM via [place], DME: [facility] Chronic rhinitis 04/08/2022 Lung nodules [...] appointment. GENERAL OSTEOARTHROSIS INSOMNIA W SLEEP APNEA [place] workers pneumoconiosis Restrictive lung disease documented as of this encounter (statuses as of 04/21/2023) Resolved Problems Problem Noted Date Resolved Date [...] Rotator cuff rupture 05/22/2003 05/10/2018 LOC PRIM [id number] 05/22/2003 10/16/19 15 Prepatellar bursitis 05/22/2003 10/16/2014 Inflammation of sacroiliac joint 10/12/2001 10/16/2014 LOC PRIM OSTEOARTH-HAND 10/12/2001 10/16/19 15 Respiratory abnormality 07/31/20 09 Overview: ICD-10 update of inactive term Umbilical hernia 05/10/2018 Insomnia 10/16/2014 Overview: ICD-10 update of inactive term COPD, severity to be determined 07/07/2011 Allergic rhinitis 05/10/2018 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 NOS-MANAGER PRESENTATION 07/31/20 09 Bilateral carpal tunnel syndrome 05/10/2018 CKD (chronic kidney disease), stage III 12/11/2018 Benign hypertension with CKD (chronic kidney disease) stage III 02/11/2021 Overview: Per CKD protocol documented as of this encounter (statuses as of 04/21/2023) Immunizations Name Administration Dates Next Due COVID-19 [...] Telephone Encounter - Jeanie Estrada RN - 04/18/2023 3:59 PM EDT Patient discussed in Medical Home meeting today, due to readmission. Those present: Regional Carbon Coater Machine Operator, Medical Home Risk Adjustment Specialist, Providers, Nursing Director Of Fundraising, Phone Operator, PCNC nurse, Childbirth Educator, Community Health Associate Art Director, [place] pharmacist. No interventions noted, that could have been taken to prevent readmission. It was recommended, that if patient has an ER visit or another admission - refer to [email or web address] Team agreeable with plan. documented in this encounter Plan of Treatment Upcoming Encounters Date Type Specialty Care Team Description 04/24/2023 Home Visit Family Medicine Mara Crystal Community Health Associate Art Director [address] [place] [address] [place] [phone] 06/20/2023 Office Visit Family Medicine Ben Cisneros MD [address] [place] [address] [place] [address] 07/12/2023 Nurse Only Ancillary Rubina, Nurse Annual Wellness [address] [place] [address] [place] [address] 07/13/2023 Office Visit Cardiology Brenton Padilla PA-C [address] [place] [address] 11/29/2023 Office Visit Dermatology Dalila West PA-C [address] [place] [address] [place] [address] Health Maintenance Due Date Last Done Comments COVID-19 Vaccine (4 - Moderna series) 03/04/2022 01/07/2022, 12/31/2020, 12/03/2020 CKD PHOS USE SMARTSET 78371 05/12/202305/02, 10/05/2020, 04/01/2020, Additional history exists Influenza Vaccine (FLU shot) (#1) 2023 07/08/2022, 06/17/2021, 07/22/2020, Additional history exists Depression Screening, Annual for Pts 12 and Over 07/08/2023 07/08/2022 DTaP,Tdap,and Td Vaccines (2 - Td or Tdap) 10/14/2023 10/14/2013, 07/22/2008 Albumin/Creatinine Ratio 02/15/2024 023, 04/07/2022, 10/05/2020, Additional history exists CKD HGB USE SMARTSET 01875 02/15/202402/14, 04/07/2022, 10/05/2020, Additional history exists Pneumococcal [...] patient or by statute hierarchy) Care Teams Line Dancer Relationship Specialty Start Date End Date Ben Cisneros MD [address] [place] [address] [place] [address] PCP - General Family Medicine 05/09/18 documented as of this encounter
--- OUTSIDE RECORDS SUMMARY | 2023-09-09 22:17 | External Medical Summary | Summary of Care ---
Author Name Unknown Organization [facility] Address [address] [place] [address] Phone [phone] Care Team Providers Care Metal Roofing Mechanic Name Role Phone Ben Cisneros MD Primary Care Provider Reason for Visit * Reason Comments Outpatient Testing Encounter Details Date Type Department Care Team Description 04/24/2023 Laboratory Laboratory [address] [place] [phone] [place] [address] Chronic systolic heart failure (HCC) Allergies Active [...] summer., Informant: Patient, Reported on 04/17/2023 Saline [place] 0.65 % Nasal Solution ([place]) Administer into nostril 1 [place] as needed for Congestion. 60 mL 5 [...] 100 Tablet 1 03/13/2023 4 Active Ipratropium [place] HFA 17 MCG/ACT Inhalation Aerosol Solution (Atrovent Hfa)Indications:[place] workers pneumoconiosis (HCC) INHALE TWO PUFFS BY [...] hypoxemia 04/08/2022 Overview: Wears 2 LPM via [place], DME: [facility] Chronic rhinitis 04/08/2022 Lung [...] appointment. GENERAL OSTEOARTHROSIS INSOMNIA W SLEEP APNEA [place] workers pneumoconiosis Restrictive lung disease documented as [...] Rotator cuff rupture 05/22/2003 05/10/2018 LOC PRIM [id number] 05/22/2003 10/16/19 15 Prepatellar bursitis 05/22/2003 10/16/2014 Inflammation of sacroiliac joint 10/12/2001 10/16/2014 LOC PRIM OSTEOARTH-HAND 10/12/2001 10/16/19 15 Respiratory abnormality 07/31/20 09 Overview: ICD-10 update of inactive term Umbilical hernia 05/10/2018 Insomnia 10/16/2014 Overview: ICD-10 update of inactive term COPD, severity to be determined 07/07/2011 Allergic rhinitis 05/10/2018 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 NOS-OFFICE SUPPORT ASSISTANT 07/31/20 09 Bilateral carpal tunnel syndrome 05/10/2018 [...] Office Visit Family Medicine Ben Cisneros MD [address] [place] [address] [place] [address] 07/12/2023 Nurse Only Ancillary Rubina, Nurse Annual Wellness [address] [place] [address] [place] [address] 07/13/2023 Office Visit Cardiology Brenton Padilla PA-C [address] [place] [address] 11/29/2023 Office Visit Dermatology Dalila West PA-C [address] [place] [address] [place] [phone] Pending Results Name Type Priority Associated Diagnoses Date /Time BASIC METABOLIC PANEL Lab Routine Chronic systolic heart failure (HCC) 04/24/2023 10:53 AM EDT BNP, NT-PRO Lab Routine Chronic systolic heart failure (HCC) 04/24/2023 10:53 AM EDT Health Maintenance Due Date Last Done Comments COVID-19 Vaccine (4 - Moderna series) 03/04/2022 01/07/2022, 12/31/2020, 12/03/2020 CKD PHOS USE SMARTSET 93944 05/12/2023 0810/2021, 10/05/2020, 04/01/2020, Additional history exists Influenza Vaccine (FLU shot) (#1) 2023 07/08/2022, 06/17/2021, 07/22/2020, Additional history exists Depression Screening, Annual for Pts 12 and Over 07/08/2023 07/08/2022 DTaP,Tdap,and Td Vaccines (2 - Td or Tdap) 10/14/2023 10/14/2013, 07/22/2008 Albumin/Creatinine Ratio 02/15/2024 023, 04/07/2022, 10/05/2020, Additional history exists CKD HGB USE SMARTSET 17119 02/15/202402/14, 04/07/2022, 10/05/2020, Additional history exists Pneumococcal [...] Visit Diagnoses Diagnosis Chronic systolic heart failure (HCC) Chronic systolic [...] patient or by statute hierarchy) Care Teams Metal Roofing Mechanic Relationship Specialty Start Date End Date Ben Cisneros MD [address] [place] [address] [place] [address] PCP - General Family Medicine 05/09/18 documented as of this encounter
--- OUTSIDE RECORDS SUMMARY | 2023-09-09 22:17 | External Medical Summary | Summary of Care ---
Author Name Unknown Organization [facility] Address [address] [place] [address] Phone [phone] Care Team Providers Care Bowling Ball Marker Name Role Phone Ben Cisneros MD Primary Care Provider Reason for Visit * Reason Onset Date Comments case management 04/24/2023 Encounter Details Date Type Department Care Team Description 04/24/2023 Stopboard Assembler Telephone Family Medicine [address] [phone] Jeanie Estrada, RN [address] [place], [place] [phone] case management Allergies Active Allergy Reactions Severity [...] summer., Informant: Patient, Reported on 04/17/2023 Saline [place] 0.65 % Nasal Solution ([place]) Administer into nostril 1 [place] as needed for Congestion. 60 mL 5 [...] 100 Tablet 1 03/13/2023 4 Active Ipratropium [place] HFA 17 MCG/ACT Inhalation Aerosol Solution (Atrovent Hfa)Indications:[place] workers pneumoconiosis (HCC) INHALE TWO PUFFS BY [...] Overview: Wears 2 LPM via [place], DME: [facility] Chronic rhinitis 04/08/2022 Lung nodules 04/08/2022 [...] appointment. GENERAL OSTEOARTHROSIS INSOMNIA W SLEEP APNEA [place] workers pneumoconiosis Restrictive lung disease documented as [...] Rotator cuff rupture 05/22/2003 05/10/2018 LOC PRIM [id number] 05/22/2003 10/16/19 15 Prepatellar bursitis 05/22/2003 10/16/2014 Inflammation of sacroiliac joint 10/12/2001 10/16/2014 LOC PRIM OSTEOARTH-HAND 10/12/2001 10/16/19 15 Respiratory abnormality 07/31/20 09 Overview: ICD-10 update of inactive term Umbilical hernia 05/10/2018 Insomnia 10/16/2014 Overview: ICD-10 update of inactive term COPD, severity to be determined 07/07/2011 Allergic rhinitis 05/10/2018 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 NOS-RESEARCH SUPPORT SPECIALIST 07/31/20 09 Bilateral carpal tunnel syndrome [...] EDT KRISTEN week #3. Alert, oriented, pleasant. TONY home visit completed today. Concern for exacerbation of heart failure: -abdominal distention -feet/ankles swollen, bilateral -short of breath with ambulating short distance -unable to lie flat to sleep, has to be elevated using 3 pillows -pulse ox 96% on room air -no added salt, but increased intake of high sodium foods -productive cough during the night, taz early childhood -elevates lower legs, helps with swelling, but as soon as puts them down, slowly comes back again. -no weight gain. Today's weight is 178.8 lbs Recent dx of pneumonia: -short of breath with ambulating short distance -productive cough during the night, taz in early childhood -[facility] did exchange his concentrator, [...] reports he eats lots of fresh veggies. Patient would be interested in a load dispatcher local referral. Message sent to PCP. Next planned contact will be with response from PCP, and next week. documented in this encounter Plan of Treatment Upcoming Encounters Date Type Specialty Care Team Description 06/20/2023 Office Visit Family Medicine Ben Cisneros MD [address] [place] [address] [place] [address] 07/12/2023 Nurse Only Ancillary Rubina, Nurse Annual Wellness [address] [place] [address] [place] [address] 07/13/2023 Office Visit Cardiology Brenton Padilla PA-C [address] [place] [address] 11/29/2023 Office Visit Dermatology Dalila West PA-C [address] [place] [address] [place] [address] Health Maintenance Due Date Last Done Comments COVID-19 Vaccine (4 - Moderna series) 03/04/2022 01/07/2022, 12/31/2020, 12/03/2020 CKD PHOS USE SMARTSET 02649 05/12/2023 0810/2021, 10/05/2020, 04/01/2020, Additional history exists Influenza Vaccine (FLU shot) (#1) 2023 07/08/2022, 06/17/2021, 07/22/2020, Additional history exists Depression Screening, Annual for Pts 12 and Over 07/08/2023 07/08/2022 DTaP,Tdap,and Td Vaccines (2 - Td or Tdap) 10/14/2023 10/14/2013, 07/22/2008 Albumin/Creatinine Ratio 02/15/2024 023, 04/07/2022, 10/05/2020, Additional history exists CKD HGB USE SMARTSET 50444 02/15/202402/14, 04/07/2022, 10/05/2020, Additional history exists Pneumococcal [...] patient or by statute hierarchy) Care Teams Bowling Ball Marker Relationship Specialty Start Date End Date Ben Cisneros MD [address] [place] [address] [place] [address] PCP - General Family Medicine 05/09/18 documented as of this encounter
--- OUTSIDE RECORDS SUMMARY | 2023-09-09 22:17 | External Medical Summary | Summary of Care ---
Author Name Unknown Organization [facility] Address [address] [place] [address] Phone [phone] Care Team Providers Care Beef Killer Name Role Phone Ben Cisneros MD Primary Care Provider Reason for Visit * Reason Onset Date Comments case management 04/17/2023 Order Request 04/17/2023 Encounter Details Date Type Department Care Team Description 04/17/2023 Virtualization Architect Telephone Family [address] [phone] Jeanie Estrada, RN [address] [place] [address] case management; Order Request Allergies Active Allergy Reactions Severity Noted Date Comments No Known Drug Allergy 10/12/2000 documented as of this encounter (statuses as of 04/18/2023) Medications Medication Sig Dispensed Refills Start Date [...] summer., Informant: Patient, Reported on 04/17/2023 Saline [place] 0.65 % Nasal Solution ([place]) Administer into nostril 1 [place] as needed for Congestion. 60 mL 5 [...] 100 Tablet 1 03/13/2023 4 Active Ipratropium [place] HFA 17 MCG/ACT Inhalation Aerosol Solution (Atrovent Hfa)Indications:[place] workers pneumoconiosis (HCC) INHALE TWO PUFFS BY [...] the morning. 200 Tablet 1 04/11/2023 Active documented as of this encounter (statuses as of 04/18/2023) Active Problems Problem Noted Date Hospital discharge follow-up 04/10/2023 Chronic systolic heart failure 3 Interstitial pulmonary disease 3 Pleural effusion due to CHF (congestive heart failure) 04/10/2023 Medical home patient encounter 3 Nocturnal hypoxemia 04/08/2022 Overview: Wears 2 LPM via [place], DME: [facility] Chronic rhinitis 04/08/2022 Lung nodules 04/08/2022 [...] appointment. GENERAL OSTEOARTHROSIS INSOMNIA W SLEEP APNEA [place] workers pneumoconiosis Restrictive lung disease documented as of this encounter (statuses as of 04/18/2023) Resolved Problems Problem Noted Date Resolved Date [...] Rotator cuff rupture 05/22/2003 05/10/2018 LOC PRIM [id number] 05/22/2003 10/16/19 15 Prepatellar bursitis 05/22/2003 10/16/2014 Inflammation of sacroiliac joint 10/12/2001 10/16/2014 LOC PRIM OSTEOARTH-HAND 10/12/2001 10/16/19 15 Respiratory abnormality 07/31/20 09 Overview: ICD-10 update of inactive term Umbilical hernia 05/10/2018 Insomnia 10/16/2014 Overview: ICD-10 update of inactive term COPD, severity to be determined 07/07/2011 Allergic rhinitis 05/10/2018 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 NOS-MASTER DATA ANALYST 07/31/20 09 Bilateral carpal tunnel syndrome 05/10/2018 CKD (chronic kidney disease), stage III 12/11/2018 Benign hypertension with CKD (chronic kidney disease) stage III 02/11/2021 Overview: Per CKD protocol documented as of this encounter (statuses as of 04/18/2023) Immunizations Name Administration Dates Next Due COVID-19 [...] encounter Miscellaneous Notes * Telephone Encounter - Siddhartha Dooley LPN - 04/18/2023 11:26 AM EDT Provider to address: PCP Reason for Call: case management and Order Request Contact: In Clinic Contact Type: Orders Outcome[facility] Total Time including non face to face (minutes): 25 * Telephone Encounter - Jeanie Estrada RN - 04/18/2023 10:18 AM EDT Received signed order from PCP. Printed and faxed to [facility] @ [phone]. Fax confirmation received. * Telephone Encounter - Jeanie Estrada RN - 04/17/2023 6:08 PM EDT Patient needs an order sent to [facility] for oxygen supplies. Reports he has had his concentrator, which is very noisy, for about 8 years. Reports [facility] has NEVER come back to service it or to deliver/mail supplies. He washes the 2 filters periodically and buys his own oxygen tubing? Thank you. documented in this encounter Plan of Treatment Upcoming Encounters Date Type Specialty Care Team Description 06/20/2023 Office Visit Family Medicine Ben Cisneros MD [address] [place] [address] [place] [address] 07/12/2023 Nurse Only Ancillary Rubina, Nurse Annual Wellness [address] [place] [address] [place] [address] 07/13/2023 Office Visit Cardiology Brenton Padilla PA-C [address] [place] [address] 11/29/2023 Office Visit Dermatology Dalila West PA-C [address] [place] [address] [place] [address] Health Maintenance Due Date Last Done Comments COVID-19 Vaccine (4 - Moderna series) 03/04/2022 01/07/2022, 12/31/2020, 12/03/2020 CKD PHOS USE SMARTSET 21109 05/12/202305/02, 10/05/2020, 04/01/2020, Additional history exists Influenza Vaccine (FLU shot) (#1) 2023 07/08/2022, 06/17/2021, 07/22/2020, Additional history exists Depression Screening, Annual for Pts 12 and Over 07/08/2023 07/08/2022 DTaP,Tdap,and Td Vaccines (2 - Td or Tdap) 10/14/2023 10/14/2013, 07/22/2008 Albumin/Creatinine Ratio 02/15/2024 023, 04/07/2022, 10/05/2020, Additional history exists CKD HGB USE SMARTSET 38831 02/15/202402/14, 04/07/2022, 10/05/2020, Additional history exists Pneumococcal [...] as of this encounter Visit Diagnoses Diagnosis [place] workers pneumoconiosis (HCC)- Primary [place] workers' pneumoconiosis documented in this encounter Advance [...] patient or by statute hierarchy) Care Teams Beef Killer Relationship Specialty Start Date End Date Ben Cisneros MD [address] [place] [address] [place] [address] PCP - General Family Medicine 05/09/18 documented as of this encounter
--- OUTSIDE RECORDS SUMMARY | 2023-09-09 22:17 | External Medical Summary | Summary of Care ---
Author Name Unknown Organization [facility] Address [address] [place] [address] Phone [phone] Care Team Providers Care Photoengraving Apprentice Name Role Phone Ben Cisneros MD Primary Care Provider [phone] Reason for Visit * Reason Onset Date Comments case management 04/18/2023 Encounter Details Date Type Department Care Team Description 04/18/2023 Survey Technician Telephone Family Medicine [address] [phone] Jeanie Estrada, RN [address] [place], [place] [phone] case management Allergies Active Allergy Reactions Severity [...] summer., Informant: Patient, Reported on 04/17/2023 Saline [place] 0.65 % Nasal Solution ([place]) Administer into nostril 1 [place] as needed for Congestion. 60 mL 5 [...] 100 Tablet 1 03/13/2023 4 Active Ipratropium [place] HFA 17 MCG/ACT Inhalation Aerosol Solution (Atrovent Hfa)Indications:[place] workers pneumoconiosis (HCC) INHALE TWO PUFFS BY [...] Overview: Wears 2 LPM via [place], DME: [facility] Chronic rhinitis 04/08/2022 Lung nodules [...] appointment. GENERAL OSTEOARTHROSIS INSOMNIA W SLEEP APNEA [place] workers pneumoconiosis Restrictive lung disease documented as [...] Rotator cuff rupture 05/22/2003 05/10/2018 LOC PRIM [id number] 05/22/2003 10/16/19 15 Prepatellar bursitis 05/22/2003 10/16/2014 Inflammation of sacroiliac joint 10/12/2001 10/16/2014 LOC PRIM OSTEOARTH-HAND 10/12/2001 10/16/19 15 Respiratory abnormality 07/31/20 09 Overview: ICD-10 update of inactive term Umbilical hernia 05/10/2018 Insomnia 10/16/2014 Overview: ICD-10 update of inactive term COPD, severity to be determined 07/07/2011 Allergic rhinitis 05/10/2018 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 NOS-RN HOUSE SUPERVISOR 07/31/20 09 Bilateral carpal tunnel syndrome 05/10/2018 [...] today, due to readmission. Those present: Regional Representative Phlebotomy Services, Medical Home Survey Technician, Providers, Nursing Resource Manager, Hat And Cap Parts Cutter Hand, PCNC nurse, Lead Ramp Agent, Community Health Bag Bailer, MTM pharmacist. No interventions noted, that could have been taken to prevent readmission. It was recommended, that if patient has an ER visit or another admission - refer to [facility]. Team agreeable with plan. documented in this encounter Plan of Treatment Upcoming Encounters Date Type Specialty Care Team Description 06/20/2023 Office Visit Family Medicine Ben Cisneros MD [address] [place] [address] [place] [address] 07/12/2023 Nurse Only Ancillary Rubina Nurse Annual Wellness [address] [place] [address] [place] [address] 07/13/2023 Office Visit Cardiology Brenton Padilla PA-C [address] [place] [address] 11/29/2023 Office Visit Dermatology Dalila West PA-C [address] [place] [address] [place] [address] Health Maintenance Due Date Last Done Comments COVID-19 Vaccine (4 - Moderna series) 03/04/2022 01/07/2022, 12/31/2020, 12/03/2020 CKD PHOS USE SMARTSET 81535 05/12/202305/02, 10/05/2020, 04/01/2020, Additional history exists Influenza Vaccine (FLU shot) (#1) 2023 07/08/2022, 06/17/2021, 07/22/2020, Additional history exists Depression Screening, Annual for Pts 12 and Over 07/08/2023 07/08/2022 DTaP,Tdap,and Td Vaccines (2 - Td or Tdap) 10/14/2023 10/14/2013, 07/22/2008 Albumin/Creatinine Ratio 02/15/2024 023, 04/07/2022, 10/05/2020, Additional history exists CKD HGB USE SMARTSET 92718 02/15/202402/14, 04/07/2022, 10/05/2020, Additional history exists Pneumococcal [...] patient or by statute hierarchy) Care Teams Photoengraving Apprentice Relationship Specialty Start Date End Date Ben Cisneros MD [address] [place] [address] [place] [address] PCP - General Family Medicine 05/09/18 documented as of this encounter
--- OUTSIDE RECORDS SUMMARY | 2023-09-09 22:17 | External Medical Summary | Summary of Care ---
Author Name Unknown Organization [facility] Address [address] [place] [address] Phone [phone] Care Team Providers Care Catalyst Impregnator Name Role Phone Ben Cisneros MD Primary Care Provider Reason for Referral * Evaluate & Treat - Unlimited Visits (Within 10 days (routine)) - Authorized Specialty Diagnoses / Procedures Referred By Eleazar landaverde Referred To Contact Dietitian / Nutrition Services Diagnoses Chronic systolic heart failure (HCC) Ben Cisneros MD [address] [place], [place] [address] [id number] Referral ID Status Reason Start Date Expiration Date Visits Requested Visits Authorized [id number] Authorized Specialty Services Required 04/24/2023 999 999 Question Answer Referral Priority Within 10 days (routine) What condition is the patient being seen for? All other conditions Other: Other: Use Comment Box Comments Low sodium diet Reason for Visit * Reason Onset Date Comments case management 04/24/2023 Order Request 04/24/2023 Referral 04/24/2023 Encounter Details Date Type Department Care Team Description 04/24/2023 Transportation Logistics Internship Telephone Family Medicine [address] [phone] Jeanie Estrada, RN [address] [place], [place] [id number] case management; Order Request; Referral Allergies Active Allergy Reactions Severity Noted Date [...] summer., Informant: Patient, Reported on 04/17/2023 Saline [place] 0.65 % Nasal Solution ([place]) Administer into nostril 1 [place] as needed for Congestion. 60 mL 5 [...] 100 Tablet 1 03/13/2023 4 Active Ipratropium [place] HFA 17 MCG/ACT Inhalation Aerosol Solution (Atrovent Hfa)Indications:[place] workers pneumoconiosis (HCC) INHALE TWO PUFFS BY [...] Overview: Wears 2 LPM via [place], DME: [facility] Chronic rhinitis [...] appointment. GENERAL OSTEOARTHROSIS INSOMNIA W SLEEP APNEA [place] workers pneumoconiosis Restrictive lung disease documented as [...] Rotator cuff rupture 05/22/2003 05/10/2018 LOC PRIM [id number] 05/22/2003 10/16/19 15 Prepatellar bursitis 05/22/2003 10/16/2014 Inflammation of sacroiliac joint 10/12/2001 10/16/2014 LOC PRIM OSTEOARTH-HAND 10/12/2001 10/16/19 15 Respiratory abnormality 07/31/20 09 Overview: ICD-10 update of inactive term Umbilical hernia 05/10/2018 Insomnia 10/16/2014 Overview: ICD-10 update of inactive term COPD, severity to be determined 07/07/2011 Allergic rhinitis 05/10/2018 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 NOS-VP SALES 07/31/20 09 Bilateral carpal tunnel syndrome 05/10/2018 [...] Encounter - Jeanie Estrada RN - 04/24/2023 6:35 PM EDT Referral placed/signed by PCP. * Telephone Encounter - Jeanie Estrada RN - 04/24/2023 11:30 AM EDT Patient also interested in a interstate bus driver referral for low sodium diet. Please advise..... 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 ASSESSMENT: TONY in home at present. Reports patient is having dyspnea with minimal exertion. Feet/ankles swollen. Cannot lie flat to sleep, propped up with 3 pillows. Coughs during the night. No weight gain. (Has been eating ALOT of chicken tenders with buffalo sauce - increased sodium intake. Bought a 10 lbs box of them.) RECOMMENDATION: Do you want patient to get labs when he comes in for the chest xray ordered by pulmonology in follow up to his recent pneumonia? ProBNP ? None needed? Please advise.... Jeanie Estrada RN Family Medicine [address] [phone] documented in this encounter Plan of Treatment Upcoming Encounters Date Type Specialty Care Team Description 04/26/2023 Nutrition Services Nutrition Services Kelly Peraza, DARCY [address] [place] [address] 06/20/2023 Office Visit Family Medicine Ben Cisneros MD [address] [place] [address] [place] [address] 07/12/2023 Nurse Only Ancillary Siriey, Nurse Annual Wellness [address] [place] [address] [place] [address] 07/13/2023 Office Visit Cardiology Brenton Padilla PA-C [address] [place] [address] 11/29/2023 Office Visit Dermatology Dalila West PA-C [address] [place] [address] [place] [phone] Pending Results Name Type Priority Associated Diagnoses Date /Time BASIC METABOLIC PANEL Lab Routine Chronic systolic heart failure (HCC) 04/24/2023 10:53 AM EDT BNP, NT-PRO Lab Routine Chronic systolic heart failure (HCC) 04/24/2023 10:53 AM EDT Scheduled Orders Name Type Priority Associated Diagnoses Orde r Schedule BASIC METABOLIC PANEL Lab Routine Chronic systolic heart failure (HCC) Expected: 04/24/2023 (Approximate), Expires: 04/23/2024 BNP, NT-PRO Lab Routine Chronic systolic heart failure (HCC) Expected: 04/24/2023 (Approximate), Expires: 04/23/2024 Scheduled Referrals Name Type Priority Associated Diagnoses Orde r Schedule NUTRITION-CLINICAL DIETITIAN REFERRAL OP Referral Within 10 days (routine) Chronic systolic heart failure (HCC) Ordered: 04/24/2023 Health Maintenance Due Date Last Done Comments COVID-19 Vaccine (4 - Moderna series) 03/04/2022 01/07/2022, 12/31/2020, 12/03/2020 CKD PHOS USE SMARTSET 16177 05/12/2023 0810/2021, 10/05/2020, 04/01/2020, Additional history exists Influenza Vaccine (FLU shot) (#1) 2023 07/08/2022, 06/17/2021, 07/22/2020, Additional history exists Depression Screening, Annual for Pts 12 and Over 07/08/2023 07/08/2022 DTaP,Tdap,and Td Vaccines (2 - Td or Tdap) 10/14/2023 10/14/2013, 07/22/2008 Albumin/Creatinine Ratio 02/15/2024 023, 04/07/2022, 10/05/2020, Additional history exists CKD HGB USE SMARTSET 95136 02/15/202402/14, 04/07/2022, 10/05/2020, Additional history exists Pneumococcal [...] Agents on File Name Relationship Healthcare Agent [facility] p Communication Susu Quezada Adult Child Health Care Repr esentative (appointed verbally by patient or by statute hierarchy) Care Teams Catalyst Impregnator Relationship Specialty Start Date End Date Ben Cisneros MD [address] [place] [address] [place] [address] PCP - General Family Medicine 05/09/18 documented as of this encounter
--- OUTSIDE RECORDS SUMMARY | 2023-09-09 22:17 | External Medical Summary | Summary of Care ---
Author Name Unknown Organization [facility] Address [address] [place] [address] Phone [phone] Care Team Providers Care Helicopter Specialist Name Role Phone Ben Cisneros MD Primary Care Provider Reason for Visit * Reason Onset Date Comments case management 04/17/2023 Order Request 04/17/2023 Encounter Details Date Type Department Care Team Description 04/17/2023 Ground Crewman Mission Support Telephone Family Medicine [address] [phone] Jeanie Estrada, RN [address] [place] [address] case management; Order Request Allergies Active Allergy Reactions Severity Noted Date Comments No Known Drug Allergy 10/12/2000 documented as of this encounter (statuses as of 04/25/2023) Medications Medication Sig Dispensed Refills Start Date [...] summer., Informant: Patient, Reported on 04/17/2023 Saline [place] 0.65 % Nasal Solution ([place]) Administer into nostril 1 [place] as needed for Congestion. 60 mL 5 04/08/2022 Active Fluticasone Propionate 50 MCG/ACT Nasal Suspension (Flonase) Administer 2 Sprays into nostril in the morning. 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 TAKE ONE CAPSULE BY MOUTH TWICE A DAY 200 Capsule 1 03/13/2023 03/12/20 24 Active Additional Information Patient taking differently: 0.8 mg Oral Daily(AM), Informant: At Discharge, Reported on 04/17/2023 Rosuvastatin Calcium 10 MG Oral Tablet (Crestor)Indication s:Dyslipidemia, goal LDL below 100 TAKE ONE TABLET BY MOUTH AT BEDTIME 100 Tablet 1 03/13/2023 03/12/20 24 Active Additional Information Patient taking differently: 10 mg Oral Daily(AM), Informant: At Discharge, Reported on 04/17/2023 Pantoprazole Sodium 20 MG Oral Tablet Delayed Release (Protonix)Indicatio ns:Gastroesophageal reflux disease with esophagitis without hemorrhage TAKE ONE TABLET BY MOUTH EVERY MORNING 30 MINUTES BEFORE THE FIRST MEAL OF THE DAY. DO NOT CRUSH, CUT OR CHEW 100 Tablet 1 03/13/2023 03/12/20 24 Active Ipratropium [place] HFA 17 MCG/ACT Inhalation Aerosol Solution (Atrovent Hfa)Indications:[place] pneumoconiosis (HCC) INHALE TWO PUFFS BY MOUTH FOUR TIMES A DAY - MORNING, NOON, EVENING, AND BEFORE BEDTIME 12.9 g 03/06/2023 03/05/20 24 Active Citalopram Hydrobromide 10 MG Oral Tablet (CeleXA)Indications :[place] (generalized anxiety disorder) TAKE ONE TABLET BY MOUTH EVERY MORNING. 100 Tablet 1 03/06/2023 03/05/20 24 Active Carvedilol 12.5 MG Oral [...] 04/17/2023 hydrALAZINE HCl 10 MG Oral Tablet (Apresoline)Indicat [...] 04/11/2023 Active Torsemide 10 MG Oral Tablet (Demadex)Indication s:Chronic systolic heart failure (HCC) Take 2 Tablets by mouth in the morning. 200 Tablet 1 04/11/2023 04/25/20 23 Discontinu ed(Medicat ion/Dose Changed) documented as of this encounter (statuses as of 04/25/2023) Active Problems Problem Noted Date Hospital discharge follow-up 04/10/2023 Chronic systolic heart failure 3 Interstitial pulmonary disease 3 Pleural effusion due to CHF (congestive heart failure) 04/10/2023 Medical home patient encounter 3 Nocturnal hypoxemia 04/08/2022 Overview: Wears 2 LPM via [place], DME: [facility] Chronic rhinitis 04/08/2022 Lung nodules [...] appointment. GENERAL OSTEOARTHROSIS INSOMNIA W SLEEP APNEA [place] workers pneumoconiosis Restrictive lung disease documented as of this encounter (statuses as of 04/25/2023) Resolved Problems Problem Noted Date Resolved Date [...] Rotator cuff rupture 05/22/2003 05/10/2018 LOC PRIM [id number] 05/22/2003 10/16/19 15 Prepatellar bursitis 05/22/2003 10/16/2014 Inflammation of sacroiliac joint 10/12/2001 10/16/2014 LOC PRIM OSTEOARTH-HAND 10/12/2001 10/16/19 15 Respiratory abnormality 07/31/20 09 Overview: ICD-10 update of inactive term Umbilical hernia 05/10/2018 Insomnia 10/16/2014 Overview: ICD-10 update of inactive term COPD, severity to be determined 07/07/2011 Allergic rhinitis 05/10/2018 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 07/31/20 09 Bilateral carpal tunnel syndrome 05/10/2018 CKD (chronic kidney disease), stage III 12/11/2018 Benign hypertension with CKD (chronic kidney disease) stage III 02/11/2021 Overview: Per CKD protocol documented as of this encounter (statuses as of 04/25/2023) Immunizations Name Administration Dates Next Due COVID-19 [...] Telephone Encounter - Siddhartha Dooley LPN - 04/25/2023 1:41 PM EDT Provider to address: PCP Reason for Call: case management and Order Request Contact: In Clinic Contact Type: Orders Outcome: Order [id number] for Ned Elliott (1935) has been delivered by [facility]. Total Time including non face to face (minutes): 10 * Telephone Encounter - Siddhartha Dooley LPN - 04/18/2023 1:48 PM EDT Hi Siddhartha Dooley, Order [id number] for Ned Elliott (1935) is being fulfilled by [facility]. If you need assistance with this order, please call . * Telephone Encounter - Siddhartha Dooley LPN - 04/18/2023 11:26 AM EDT Provider to address: PCP Reason for Call: case management and Order Request Contact: In Clinic Contact Type: Orders Outcome: sent in to [facility] Total Time including non face to face (minutes): 25 * Telephone Encounter - Jeanie Estrada RN - 04/18/2023 10:18 AM EDT Received signed order from PCP. Printed and faxed to [facility] @ [phone]. Fax confirmation received. * Telephone Encounter - [...] 04/26/2023 Nutrition Services Nutrition Services Kelly Peraza, BARBARAN [address] [place] [address] 06/20/2023 Office Visit Family Medicine Ben Cisneros MD [address] [place] [address] [place] [address] 07/12/2023 Nurse Only Ancillary Nurse Rubina [address] [place] [address] 07/13/2023 Office Visit Cardiology Brenton Padilla PA-C [address] [place] [address] 11/29/2023 Office Visit Dermatology Dalila West PA-C [address] [place] [address] [place] [address] Health Maintenance Due Date Last Done Comments COVID-19 Vaccine (4 - Moderna series) 03/04/2022 01/07/2022, 12/31/2020, 12/03/2020 CKD PHOS USE SMARTSET 81537 05/12/202305/02, 10/05/2020, 04/01/2020, Additional history exists Influenza Vaccine (FLU shot) (#1) 2023 07/08/2022, 06/17/2021, 07/22/2020, Additional history exists Depression Screening, Annual for Pts 12 and Over 07/08/2023 07/08/2022 DTaP,Tdap,and Td Vaccines (2 - Td or Tdap) 10/14/2023 10/14/2013, 07/22/2008 Albumin/Creatinine Ratio 02/15/2024 023, 04/07/2022, 10/05/2020, Additional history exists CKD HGB USE SMARTSET 26262 02/15/202402/14, 04/07/2022, 10/05/2020, Additional history exists Pneumococcal [...] as of this encounter Visit Diagnoses Diagnosis [place] workers pneumoconiosis (HCC)- Primary [place] workers' pneumoconiosis documented in this encounter Advance [...] patient or by statute hierarchy) Care Teams Helicopter Specialist Relationship Specialty Start Date End Date Ben Cisneros MD [address] [place] [address] [place] [address] PCP - General Family Medicine 05/09/18 documented as of this encounter
--- OUTSIDE RECORDS SUMMARY | 2023-09-09 22:17 | External Medical Summary | Summary of Care ---
Author Name Unknown Organization [facility] Address [address] [place] [address] Phone [phone] Care Team Providers Care Perioperative Educator Name Role Phone Ben Cisneros MD Primary Care Provider Reason for Visit * Reason Comments Medical Nutrition Therapy * Evaluate & Treat - Unlimited Visits (Within 10 days (routine)) - Authorized Specialty Diagnoses / Procedures Referred By Eleazar landaverde Referred To Contact Dietitian / Nutrition Services Diagnoses Chronic systolic heart failure (HCC) Ben Cisneros MD [address] [place] [address] [place] [address] Referral ID Status Reason Start Date Expiration Date Visits Requested Visits Authorized [id number] Authorized Specialty Services Required 04/24/[phone] Encounter Details Date Type Department Care Team Description 04/26/2023 Nutrition Services Nutrition, [facility] [address] [place] [address] Kelly Peraza RDN [address] [place] [phone] Chronic systolic heart failure (HCC)*; Pleural effusion due to CHF (congestive heart failure) (HCC); Chronic kidney disease, stage 3b (HCC); Dyslipidemia, goal LDL below 100; Primary hypertension; 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 60 mL 5 [...] 100 Tablet 1 03/13/2023 4 Active Ipratropium Cromwell HFA 17 MCG/ACT Inhalation Aerosol Solution (Atrovent Hfa)Indications:[place] [employer] pneumoconiosis (HCC) INHALE TWO PUFFS BY [...] as of this encounter (statuses as of 04/26/2023) Active Problems Problem Noted Date Hospital discharge follow-up 04/10/2023 Chronic systolic heart failure 3 Interstitial pulmonary disease 3 Pleural effusion due to CHF (congestive heart failure) 04/10/2023 Medical home patient encounter 3 Nocturnal hypoxemia 04/08/2022 Overview: Wears [address], DME: [facility] Chronic rhinitis [...] appointment. GENERAL OSTEOARTHROSIS INSOMNIA W SLEEP APNEA [place] [employer] pneumoconiosis Restrictive lung disease documented as of this encounter (statuses as of 04/26/2023) Resolved Problems Problem Noted Date Resolved Date [...] Rotator cuff rupture 05/22/2003 05/10/2018 LOC PRIM [id number] 05/22/2003 10/16/19 15 Prepatellar bursitis 05/22/2003 10/16/2014 Inflammation of sacroiliac joint 10/12/2001 10/16/2014 LOC PRIM OSTEOARTH-HAND 10/12/2001 10/16/19 15 Respiratory abnormality 07/31/20 09 Overview: ICD-10 update of inactive term Umbilical hernia 05/10/2018 Insomnia 10/16/2014 Overview: ICD-10 update of inactive term COPD, severity to be determined 07/07/2011 Allergic rhinitis 05/10/2018 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 NOS-RN CIRCULATING 07/31/20 09 Bilateral carpal tunnel syndrome 05/10/2018 CKD (chronic kidney disease), stage III 12/11/2018 Benign hypertension with CKD (chronic kidney disease) stage III 02/11/2021 Overview: Per CKD protocol documented as of this encounter (statuses as of 04/26/2023) Immunizations Name Administration Dates Next Due COVID-19 [...] Sign Reading Time Taken Comments Blood Pressure - - Pulse - - Temperature - - Respiratory Rate - - Oxygen Saturation - - Inhaled Oxygen Concentration - - Weight 84.5 kg (186 lb 3.2 oz) 04/26/2023 11:03 AM EDT Height 188 cm (6' 2") 04/26/2023 11:03 AM EDT Body Mass Index 23.91 04/26/2023 11:03 AM EDT documented in this encounter Patient Instructions * Patient Instructions* Kelly Peraza RDN - 04/26/2023 11:51 AM EDT Patient will substitute frozen vegetables (without any sauce or butter) for canned vegetables. Patient will limit sodium intake to no more than 2500 mg daily. Patient will review nutrition labels and aim for no more than 10% of daily value for sodium for most all foods. Be sure to ask Cardiology provider if patient needs to continue with fluid restriction. documented in this encounter Progress Notes * Kelly Peraza RDN - 04/26/2023 11:03 AM EDT NUTRITION CONSULT - OUTPATIENT ising Name: Ned Elliott Location: [facility] Date: 04/26/2023 Time: 11:03 AM Patient was identified by name and date. Patient was seen [id number] in the clinic. Reason for Referral: Heart Failure NUTRITION ASSESSMENT: Client History Patient is a 87 year old male being seen for above issue. He is accompanied by his daughter, Susu.He lives alone. States he had a recent hospitalization for heart failure from March 28 to April 05. Daughter states he had an admission prior to that in March for a lung infection and pneumonia. Support System: Child Barriers To Learning: Impaired vision Special Education Needs: Large print, uses magnifying glass Food/Nutrition-Related History Describes typical diet history/24 hr recall Breakfast: Honey Nut Cheerios cereal with 2% milk, sometimes coffee with a little milk, 12 ounces orange juice Snacks: None Lunch: Eggs, fried potatoes or spaghetti or cabbage and noodles, stuffed peppers, homemade soup, Raamen noodles or canned green beans or peas or corn or canned fruit, water or coffee Snacks: Apple pie or [place] Cream Pie or granola bars or damaris peanut bars or 1/4 cup peanuts or cashews Dinner: Steak or chops or chicken, baked potatoes, corn or peas or green beans or fried zucchini, water or coffee Snacks: Canned fruit or fig newtons Drinks: 50 ounces daily Restaurant meals: Every 6 weeks-pizza or Setswana Alcohol: Infrequent Tobacco Use: No Diet Recall/Food Logs Indicate: AREAS FOR IMPROVEMENT: Inadequate fiber intake Inadequate fruit and vegetable intake Significant sodium intake POSITIVE: Portion control Good meal distribution Food and Nutrient Intake and other pertinent information: Patient states he does his own meal preparation except when he goes to eat a meal at his daughter's house on and . She also does his shopping. She states pt has had heart failure for a while but it has worsened recently. He admits to weight loss recently, most of it being from fluid loss-reports a loss of 1.79 L from diuresis following hospital stay. He admits to having poor muscle tone since discharged home. States he doesn't use salt at the table but does cook with it. States he was on a fluid restriction while an inpatient; states he continue with this at home, but admits that he is not sure if he should continue limiting them. Food allergies and/or food intolerances: Liver-GI distress, cinnamon-heartburn, he can have a little per pt report Pertinent Medications (Current): Current Outpatient Medications Medication Sig Dispense Refill [...] times daily with cerave cream on top (Patient taking differently: apply to rash on lower legs 2 times daily with cerave cream on top. Uses mostly in the winter, not so much in the summer.) 454 g 0 Saline Buchanan 0.65 % Nasal Solution (Forest) Administer into nostril 1 Buchanan as needed for Congestion. 60 mL 5 Fluticasone Propionate 50 MCG/ACT Nasal Suspension (Flonase) Administer 2 Sprays into nostril in the morning. Flutter Device Provided at visit 1 Each 0 Tamsulosin HCl 0.4 MG Oral Capsule (Flomax) TAKE ONE CAPSULE BY MOUTH TWICE A DAY (Patient taking differently: Take 2 Capsules by mouth in the morning.) 200 Capsule 1 Rosuvastatin Calcium 10 MG Oral Tablet (Crestor) TAKE ONE TABLET BY MOUTH AT BEDTIME (Patient taking differently: Take 1 Tablet by mouth in the morning.) 100 Tablet 1 Pantoprazole Sodium 20 MG Oral Tablet Delayed Release (Protonix) TAKE ONE TABLET BY MOUTH EVERYMORNING 30 MINUTES BEFORE THE FIRST MEAL OF THE DAY. DO NOT CRUSH, CUT OR CHEW 100 Tablet 1 Ipratropium Cromwell HFA 17 MCG/ACT Inhalation Aerosol Solution (Atrovent [...] 1 Tablet by mouth in the morning. (Patient taking differently: Take 1 Tablet by mouth at bedtime.) 90 Tablet 3 hydrALAZINE HCl 10 MG [...] Torsemide 100 MG Oral Tablet (Demadex) Take 1 Tablet by mouth in the morning. 30 Tablet 0 No current facility-administered medications for this visit. Patient states his demadex was increased recently, following hospital discharge. Supplements: MVI and Vitamin B12 Prior Nutrition Counseling: No prior counseling Physical Activity: Walking some a couple times a day, but overall limited Anthropometric Measurements Ht 1.88 m (6' 2") | Wt 84.5 kg (186 lb 3.2 oz) | BMI 23.91 kg/m | BSA 2.1 m Wt Readings from Last 5 Encounters: 04/26/23 84.5 kg (186 lb 3.2 oz) 04/11/23 81.3 kg (179 lb 5 oz) 04/10/23 82.1 kg (181 lb) 03/13/23 84.7 kg (186 lb 11.2 oz) 03/13/23 85.5 kg (188 lb 7 oz) Weighed 205 lbs a year ago, decrease of ~19 lbs (9.2%) Weight Change: Fluctuating due to fluid gain and loss BMI: BMI Readings from Last 1 Encounters: 04/26/23 23.91 kg/m Nutrition-Focused Physical Findings Overall appearance: thin Biochemical Data, Medical Tests, and Procedures Latest Reference Range & Units 04/24/23 10:53 BUN 6 - 20 mg/dL 27 (H) Creatinine 0.6 - 1.2 mg/dL 1.6 (H) Estimated Glomerular Filtration Rate >=60 mL/min 42 (L) (H): Data is abnormally high (L): Data is abnormally low Above levels indicative of CKD stage 3. Patient aware of this diagnosis and indicates it's chronic. NUTRITION DIAGNOSIS Decreased nutrient needs for sodium related to heart failure as evidenced by nature of chronic disease. Food nutrition and knowledge deficit related to consuming convenience foods and other high-sodium foods as evidenced by dietary recall. NUTRITION INTERVENTION: NUTRITION EDUCATION Initial/brief nutrition education NUTRITION COUNSELING Strategies Cardiac Education: List of High Sodium Foods and Sample Menus Other Education Material: [employer] Education Materials-Low Salt Choices Nutrition Prescription: Diet: Heart Healthy Low Fat/Low Cholesterol 2500 mg Sodium/daily Daily Calorie Needs: 2000 Kcals Daily Protein Needs: 65-70 Grams protein (due to CKD stage 3) (0.70-0.83 grams protein/kg actual body weight) Goals: Patient will substitute frozen vegetables (without any sauce or butter) for canned vegetables. Patient will limit sodium intake to no more than 2500 mg daily. Patient will review nutrition labels and aim for no more than 10% of daily value for sodium for most all foods. Dietitian Action: Encouraged patient to choose foods with 10% of daily value or less for each food item he consumes. Encouraged him to limit daily sodium intake to 2500 mg or less. Encouraged him toavoid convenience, packaged, processed foods including smoked, processed, or cured meats and cheeses, foods in brine, excessive bread products. Encouraged him to eat foods from each food group, emphasizing increasing fruits & vegetables. Encouraged him to choose frozen vegetables with sauces inplace of canned vegetables. Encouraged him to flavor foods with spices and herbs without sodium or salt. Encouraged pt to discuss need for continued fluid restriction with Cardiology provider. (Patient admits to previous history of low blood pressure.) Reviewed rationale for need for low sodium diet with him. Recommendations to Ordering Provider: Continue current plan of nutrition care. NUTRITION MONITORING AND EVALUATION: The following will be monitored and evaluated at the next visit: Monitor weight. Monitor goals and progress. Plan:Patient scheduled to return in 3-4 months; RDN encouraged participant to reach out with any questions through the [employer] portal. Daughter states she has access to pt's [employer] account. 60 minutes Medical Nutrition Therapy Time In: 1101 (04/26/23 1428) Time Out: 1156 (04/26/23 1428) Kelly Peraza RDN [facility] documented in this encounter Miscellaneous Notes * Pt Handout (on AVS) - Kelly Peraza RDN - 04/26/2023 11:43 AM EDT Images from the original note were not included. [address] Low-Salt Choices Eating salt (sodium) can make your body retain too much water. Extra water makes your heart work harder. Canned, packaged, and frozen foods are easy to prepare. But they are often high in sodium. Here are some ideas for low-salt foods you can easily make yourself. For breakfast Fruit or 100% fruit juice. It's better to have whole fruit instead of 100% fruit juice. Low sodium whole-wheat bread or an Vietnamese muffin. Look for sodium content on Nutrition Facts labels. Low-fat milk or yogurt Unsalted eggs Shredded wheat Yulan tortillas Unsalted steamed rice Regular (not instant) hot cereal, made without salt Stay away from Sausage, marcos, and ham Flour tortillas Packaged muffins, pancakes, and biscuits Instant hot cereals Cottage cheese For lunch and dinner Fresh fish, chicken, turkey, or meat?baked, broiled, or roasted without salt Dry beans, cooked without salt Tofu, stir-fried without salt Unsalted fresh fruit and vegetables, or frozen or canned fruit and vegetables with no added salt Stay away from Lunch or deli meat that is cured or smoked Cheese Tomato juice and ketchup Canned vegetables, soups, and fish not labeled as [id number] or reduced sodium Packaged gravies and sauces Olives, pickles, and relish Bottled salad dressings For snacks and desserts Yogurt Unsalted, air-popped popcorn Unsalted nuts or seeds Stay away from Pies and cakes Packaged dessert mixes Pizza Canned and packaged puddings Pretzels, chips, crackers, and nuts?unless the label says unsalted Last Reviewed Date: 04/01/202219995903-5521 [employer]. All rights reserved. This information is not intended as a substitute for professional medical care. Always follow your healthcare professional's instructions. documented in this encounter Plan of Treatment Upcoming Encounters Date Type Specialty Care Team Description 05/03/2023 Laboratory Laboratory [address] [place] [address] 06/20/2023 Office Visit Family Medicine Ben Cisneros MD [address] [place] [address] [place] [id number] 07/12/2023 Nurse Only Ancillary [place], Nurse Annual Wellness [address] [place] [address] [place] [address] 07/13/2023 Office Visit Cardiology Brenton Padilla PA-C [address] [place] [address] 08/03/2023 Telemedicine Nutrition Services Kelly Peraza RDN [address] [place] [address] 11/29/2023 Office Visit Dermatology Dalila West PA-C [address] [place] [address] [place] [address] Scheduled Referrals Name Type Priority Associated Diagnoses Orde r Schedule NUTRITION-CLINICAL DIETITIAN REFERRAL OP Referral Within 10 days (routine) Chronic systolic heart failure (HCC) Ordered: 04/24/2023 Health Maintenance Due Date Last Done Comments COVID-19 Vaccine (4 - Moderna series) 03/04/2022 01/07/2022, 12/31/2020, 12/03/2020 CKD PHOS USE SMARTSET 36474 05/12/202305/02, 10/05/2020, 04/01/2020, Additional history exists Influenza Vaccine (FLU shot) (#1) 2023 07/08/2022, 06/17/2021, 07/22/2020, Additional history exists Depression Screening, Annual for Pts 12 and Over 07/08/2023 07/08/2022 DTaP,Tdap,and Td Vaccines (2 - Td or Tdap) 10/14/2023 10/14/2013, 07/22/2008 Albumin/Creatinine Ratio 02/15/2024 023, 04/07/2022, 10/05/2020, Additional history exists CKD HGB USE SMARTSET 84310 02/15/202402/14, 04/07/2022, 10/05/2020, Additional history exists Pneumococcal [...] failure (HCC)- Primary Chronic systolic heart failure Pleural effusion due to CHF (congestive heart failure) (HCC) Congestive heart failure, unspecified Chronic kidney disease, stage 3b (HCC) Dyslipidemia, goal LDL below 100 Other and unspecified hyperlipidemia Primary hypertension Unspecified essential hypertension 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
--- OUTSIDE RECORDS SUMMARY | 2023-09-09 22:17 | External Medical Summary ---
Author Name Unknown Address Unknown Organization [id number]:[facility] [place] [address] [place] [address] Laboratory Report Ordering Provider Test Date Status NIKA BELL 04/24/2023 10:53:56 Final Exclude Heart Failure: <300 pg/mL
Diagnose Heart Failure:
Age <50 yr: >450 pg/mL
50-75 yr: >900 pg/mL
>75 yr: >1800 pg/mL
GFR is 30-59 mL/min: >1200 pg/mL or Age- adjusted values
GFR <30 mL/min: do not use, not reliable

Prognostic threshold: 1000 pg/mL Observation Date Value Abnormality Reference (Units ) Status BNP, Pro-hormone 04/24/2023 10:53:56 [id number] Above high no rmal <300 (pg/mL) Final Performing Location [facility] [place] [address] [place] [address]
--- OUTSIDE RECORDS SUMMARY | 2023-09-09 22:17 | External Medical Summary | Summary of Care ---
Author Name Unknown Organization [facility] Address [address] [place] [address] Phone [phone] Care Team Providers Care Lieutenant Fire Fighter Name Role Phone Ben Cisneros MD Primary Care Provider Reason for Visit * Reason Onset Date Comments case management 04/19/2023 Medication Problem 04/19/2023 Encounter Details Date Type Department Care Team Description 04/19/2023 Overhead Irrigator Telephone Family Medicine [address] [address] Jeanie Estraad, RN [address] [place] [address] case management; Medication Problem Allergies Active Allergy Reactions Severity Noted Date [...] summer., Informant: Patient, Reported on 04/17/2023 Saline [place] 0.65 % Nasal Solution ([place]) Administer into nostril 1 [place] as needed for Congestion. 60 mL 5 [...] 100 Tablet 1 03/13/2023 4 Active Ipratropium [place] HFA 17 MCG/ACT Inhalation Aerosol Solution (Atrovent Hfa)Indications:[place] workers pneumoconiosis (HCC) INHALE TWO PUFFS BY [...] hypoxemia 04/08/2022 Overview: Wears 2 LPM via [place], DME: [facility] Chronic rhinitis 04/08/2022 [...] appointment. 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 Reports patient's torsemide will be going out on the [employer] truck this afternoon. No tracking number available at this time. Patient notified. He will check with [facility], again, shortly, to see if temporary script there yet. * Telephone Encounter - Jeanie Estrada RN - 04/21/2023 12:58 PM EDT I called to let patient know torsemide was not sent out yet. They will overnight it, but won't be going out until this afternoon. They will call me by 4 PM, to let me know for sure whether or not it was sent Fed Ex. Their Fed Ex shipments go out between 1:30 and 2 PM. Informed patient I also asked the doc to send in a prescription for 8 tablets of torsemide to the pharmacy so her would a few to tide him over. Reports he only took half a dose yesterday and today, to make them last. He cannot go without. He is appreciative of all we are doing to help him. * Telephone Encounter - Jeanie Estrada RN - 04/21/2023 12:23 PM EDT SITUATION: Patient is completely out of his torsemide. BACKGROUND: Patient was discharged from [facility], 04.05.23, with order for torsemide 20 mg daily. Lasix discontinued. Dx: acute hypoxic respiratory failure secondary to acute on chronic CHF exacerbation. ASSESSMENT: Patient called on Monday - as out of torsemide. Was found then, that [facility] only ordered patient enough torsemide for 15 days, not the usual 30 days. New script had been sent to the mailorder pharmacy of 04/11/23 - but had not yet been filled. Spoke with mail order pharmacy, and med was to be overnighted/expeditied so it would be today/monday. Patient took 1/2 dose x 2 days, to make med last until today. Medication did not come. CM called mail order pharmacy - torsemide is still sitting there, had not been sent out yet! Spoke with Tere. She is making sure it goes out today, via Fed Ex. Patient should get it tomorrow, butno guarantees. RECOMMENDATION: Could you please send in a script for 6-8 tablets of the 10 mg torsemide, so patient can tile picker from pharmacy and use until it gets here. Script pended, please sign as soon as possible. Thank you. Jeanie Estrada RN Family Medicine [address] [address] * Telephone Encounter - Jeanie Estrada RN - 04/19/2023 4:10 PM EDT Called patient. Reports he will have enough of the hydralazine until script comes. But.... He is completely out of his torsemide after tomorrow, as hospital only ordered him a 15 day supply at discharge. CM called [facility] again, spoke with Jayla. Explained situation. She will have his order for his torsemide expedited so it will go overnight. So, if the order goes out in the morning, patient should have the pills by Monday. Reports his mail comes around -12. Patient has 2 tablets to take in the morning. He is only going to take 1 tablet tomorrow, and 1 tablet on Monday morning - then his script shouldcome and he would be good to go. Just wanted to make you aware he will be taking 1/2 the dose and Monday until his prescription comes. Thank you. * Telephone Encounter - Jeanie Estrada RN - 04/19/2023 3:49 PM EDT Called [facility], spoke with Thomas. Apologized for earlier, reports for some reason their phones went 'offline'. Explained patient is going to be out meds before he should be: hydralazine and torsemide. We discovered patient was only given a 15 day supply script of the torsemide at discharge - torsemide 10 mg tablets, take 20 mg daily in AM. But the hydralazine is correct, and filled correctly. They even did a recount. Asked it patient is taking correctly? Informed them he is using a pill box and verbally expressed one tablet twice daily. Reports the patient will need a script for a few tablets until his mail order supply can be filled. The pharmacist said it should be for about 20 tabs, as cannot be filled until 04/27, and then has towait for mail order delivery. * Telephone Encounter - Jeanie Estrada RN - 04/19/2023 1:59 PM EDT SITUATION: Patient is running out meds too early. BACKGROUND: Discharged from [facility] 04/05/23. Given scripts for 30 day supply of isosorbide dinitrate, hydralazine, and torsemide. Has PCP follow up appointment 04/11/23. New scripts for 90 day supplies of isosorbide dinitrate, hydralazine and torsemide, sent to mail order pharmacy. ASSESSMENT: Confirmed patient is taking the isosorbide dinitrate twice daily, taking the hydralazine twice daily, and the torsemide once daily. Patient filled his weekly med automatic data processing planner today. Only has enough hydralazine and torsemide through 04/26/23 - does not have enough to get through to 05/05/23. RECOMMENDATION: CM called mail order pharmacy - meds cannot be filled until 04/27/23. Will be mailedafter that time. CM called [facility] - phones are not working, they cannot hear me. Asked to call back later. Jeanie Estrada RN Family Medicine [address] [address] documented in this encounter Plan of Treatment Upcoming Encounters Date Type Specialty Care Team Description 04/24/2023 Home Visit Family Medicine Mara Crystal, Community Health Equal Opportunity Specialist [address] [place] [address] [place] [phone] 06/20/2023 Office Visit Family Medicine Ben Cisneros MD [address] [place] [address] [place] [phone] 07/12/2023 Nurse Only Ancillary Rubina, Nurse Annual Wellness [address] [place] [address] [place] [phone] 07/13/2023 Office Visit Cardiology Brenton Padilla PA-C [address] [place] [phone] 11/29/2023 Office Visit Dermatology Dalila West PA-C [address] [place] [address] [place] [phone] Health Maintenance Due Date Last Done Comments COVID-19 Vaccine (4 - Moderna series) 03/04/2022 01/07/2022, 12/31/2020, 12/03/2020 CKD PHOS USE SMARTSET 85145 05/12/202305/02, 10/05/2020, 04/01/2020, Additional history exists Influenza Vaccine (FLU shot) (#1) 2023 07/08/2022, 06/17/2021, 07/22/2020, Additional history exists Depression Screening, Annual for Pts 12 and Over 07/08/2023 07/08/2022 DTaP,Tdap,and Td Vaccines (2 - Td or Tdap) 10/14/2023 10/14/2013, 07/22/2008 Albumin/Creatinine Ratio 02/15/2024 023, 04/07/2022, 10/05/2020, Additional history exists CKD HGB USE SMARTSET 04151 02/15/202402/14, 04/07/2022, 10/05/2020, Additional history exists Pneumococcal [...] patient or by statute hierarchy) Care Teams Lieutenant Fire Fighter Relationship Specialty Start Date End Date Ben Cisneros MD [address] [place] [address] [place] [phone] PCP - General Family Medicine 05/09/18 documented as of this encounter
--- OUTSIDE RECORDS SUMMARY | 2023-09-09 22:17 | External Medical Summary | Summary of Care ---
Author Name Unknown Organization [facility] Address [address] [place] [address] Phone [phone] Care Team Providers Care Telephone Station Repairer Name Role Phone Ben Cisneros MD Primary Care Provider Reason for Visit * Reason Onset Date Comments case management 04/17/2023 Order Request 04/17/2023 Encounter Details Date Type Department Care Team Description 04/17/2023 Thread Drawer Telephone Family [address] [address] Jeanie Estrada, RN [address] [place] [address] case management; Order Request Allergies [...] summer., Informant: Patient, Reported on 04/17/2023 Saline [place] 0.65 % Nasal Solution ([place]) Administer into nostril 1 [place] as needed for Congestion. 60 mL 5 [...] 100 Tablet 1 03/13/2023 4 Active Ipratropium [place] HFA 17 MCG/ACT Inhalation Aerosol Solution (Atrovent Hfa)Indications:[place] workers pneumoconiosis (HCC) INHALE TWO PUFFS BY [...] Overview: Wears 2 LPM via [place], DME: [facility] Chronic rhinitis 04/08/2022 Lung nodules 04/08/2022 [...] appointment. 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 If you need assistance with this order, [...] order from PCP. Printed and faxed to [facility] @ [phone]. Fax confirmation received. * Telephone Encounter - [...] Visit Family Medicine Ben Cisneros MD [address] [place] [address] [place] [phone] 07/12/2023 Nurse Only Ancillary Rubina, Nurse Annual Wellness [address] [place] [address] [place] [phone] 07/13/2023 Office Visit Cardiology Brenton Padilla PA-C [address] [place] [phone] 11/29/2023 Office Visit Dermatology Dalila West PA-C [address] [place] [address] [place] [phone] Health Maintenance Due Date Last Done Comments COVID-19 Vaccine (4 - Moderna series) 03/04/2022 01/07/2022, 12/31/2020, 12/03/2020 CKD PHOS USE SMARTSET 51646 05/12/202305/02, 10/05/2020, 04/01/2020, Additional history exists Influenza Vaccine (FLU shot) (#1) 2023 07/08/2022, 06/17/2021, 07/22/2020, Additional history exists Depression Screening, Annual for Pts 12 and Over 07/08/2023 07/08/2022 DTaP,Tdap,and Td Vaccines (2 - Td or Tdap) 10/14/2023 10/14/2013, 07/22/2008 Albumin/Creatinine Ratio 02/15/2024 023, 04/07/2022, 10/05/2020, Additional history exists CKD HGB USE SMARTSET 45873 02/15/202402/14, 04/07/2022, 10/05/2020, Additional history exists Pneumococcal [...] as of this encounter Visit Diagnoses Diagnosis [place]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
--- OUTSIDE RECORDS SUMMARY | 2023-09-09 22:17 | External Medical Summary ---
Author Name Unknown Address Unknown Organization K01:[facility] [place] [address] [facility] [address] Laboratory Report Ordering Provider Test Date Status NIKA BELL 04/24/2023 10:53:56 Final Observation Date Value Abnormality Reference (Units ) Status BUN 04/24/2023 10:53:56 27 Above high normal 6-20 (mg/dL) Final Creatinine 04/24/2023 10:53:56 1.6 Above high normal 0.6-1.2 (mg/dL) Final Glomerular filtration rate/1.73 sq M.predicted [Volume Rate/Area] in Serum, Plasma or Blood by Creatinine-based formula (CKD-EPI) 04/24/2023 10:53:56 42 Below low normal >=60 (mL/min) Final eGFR is calculated based on the CKD-EPI 2020 equation SODIUM 04/24/2023 10:53:56 139 135-146 (m mol/L) Final Potassium 04/24/2023 10:53:56 4.5 3.5-5.1 (m mol/L) Final Cl 04/24/2023 10:53:56 99 98-107 (mm ol/L) Final CO2 04/24/2023 10:53:56 27 22-32 (mmo l/L) Final Anion gap 04/24/2023 10:53:56 13 7-15 (mmol /L) Final Glucose 04/24/2023 10:53:56 104 70-120 (mg /dL) Final Calcium 04/24/2023 10:53:56 9.5 8.4-10.2 ( mg/dL) Final Performing Location [facility] [address] [place] [address]
--- OUTSIDE RECORDS SUMMARY | 2023-09-09 22:17 | External Medical Summary | Summary of Care ---
Author Name Unknown Organization [facility] Address [address] [place] [address] Phone [phone] Care Team Providers Care Embedded Hardware Engineer Name Role Phone Ben Cisneros MD Primary Care Provider Reason for Visit * Reason Comments [facility] Care Coordination Services Encounter Details Date Type Department Care Team Description 04/24/2023 Home Visit Care Coordination [address] [place] [address] Mara Crystal [address] [place] [address] Chronic systolic heart failure (HCC)*; Lung nodules; [place] workers pneumoconiosis (HCC); History of prostate cancer; Chronic kidney disease, stage 3b (HCC); Interstitial pulmonary disease (HCC); Primary hypertension; Restrictive lung disease Allergies Active Allergy Reactions Severity Noted Date [...] summer., Informant: Patient, Reported on 04/17/2023 Saline [place] 0.65 % Nasal Solution ([place]) Administer into nostril 1 [place] as needed for Congestion. 60 mL 5 [...] 100 Tablet 1 03/13/2023 4 Active Ipratropium [place] HFA 17 MCG/ACT Inhalation Aerosol Solution (Atrovent Hfa)Indications:[place] workers pneumoconiosis (HCC) INHALE TWO PUFFS BY [...] Overview: Wears 2 LPM via [place], DME: [facility] Chronic rhinitis [...] appointment. GENERAL OSTEOARTHROSIS INSOMNIA W SLEEP APNEA [place] workers pneumoconiosis Restrictive lung disease documented as [...] Rotator cuff rupture 05/22/2003 05/10/2018 LOC PRIM [id number] 05/22/2003 10/16/19 15 Prepatellar bursitis 05/22/2003 10/16/2014 Inflammation of sacroiliac joint 10/12/2001 10/16/2014 LOC PRIM OSTEOARTH-HAND 10/12/2001 10/16/19 15 Respiratory abnormality 07/31/20 09 Overview: ICD-10 update of inactive term Umbilical hernia 05/10/2018 Insomnia 10/16/2014 Overview: ICD-10 update of inactive term COPD, severity to be determined 07/07/2011 Allergic rhinitis 05/10/2018 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 NOS-LUMBER CHAIN OFFBEARER 07/31/20 09 Bilateral carpal tunnel syndrome 05/10/2018 [...] Sign Reading Time Taken Comments Blood Pressure 132/56 04/24/2023 9:07 AM EDT Pulse 60 04/24/2023 9:07 AM EDT Temperature 36.5 C (97.7 F) 04/24/2023 9:07 AM ED T Respiratory Rate 16 04/24/2023 9:07 AM EDT Oxygen Saturation 96% 04/24/2023 9:07 AM EDT on RA Inhaled Oxygen Concentration - - Weight - - Height - - Body Mass Index - - documented in this encounter Progress Notes * Mara Crystal [facility] In[employer] Machine - 04/24/2023 8:00 AM EDT [facility] Visit Date: 04/24/2023 Time: 8:52 AM Name: Ned Elliott : 1935 Referral Source: mobility architect manager Source of Information: Patient Spoken language: Lao Patient can read in Lao: Yes. Banquet Prep Cook needed: No. COVID-19 screening completed: Yes Vitals: Vital signs completed: Yes, vital signs within normal range. BP 132/56 (BP Site: Left Arm, BP Position: Sitting, BP Cuff Size: Regular) | Pulse 60 | Temp 36.5 C (97.7 F) | Resp 16 | SpO2 96% Comment: on RA Weight today: 178.8# Condition Changes: Changes in health or social status since last visit: TONY HV per RNCM: " Home safety assessment. Bottles out med rec. Vital signs including pulse ox and weight. Review low sodium diet. Review proper use and cleaning of inhaler/home oxygen". The patient has new concerns since last visit: Recent HF dx. Weight remaining steady 177-178 Worsening SOB - Feels like lungs are full Occasional cough, non productive. BUTT, weakness Patient notes abdominal distention and edema to tops of feet. SOB if laying flat. Sleeping with 3 pillows CXR today Progress towards goals since last visit: Remains living independently. No utilizations Medications: Medication review completed? Yes, no gaps identified Does the patient have barriers to medication adherence? No. Patient reports difficulty paying for medications or might in the future: No. Telehealth: This is a telehealth visit: No. Symptoms Surveys and Evaluations: MAHC10 completed this visit: Yes. Score is 4 or more? Yes, notified Provider/Timber Sizer Operator Last flowsheet values for MAHC10: Age 65+: 1 (04/24/2023 9:00 AM) Diagnosis (3 or more co-existing): 1 (04/24/2023 9:00 AM) Prior history of falls within 3 months: 1 (04/24/2023 9:00 AM) Incontinence: 0 (04/24/2023 9:00 AM) Visual impairment: 0 (04/24/2023 9:00 AM) Impaired functional mobility: 0 (04/24/2023 9:00 AM) Environmental hazards: 0 (04/24/2023 9:00 AM) Poly Pharmacy (4 or more prescriptions - any type): 1 (04/24/2023 9:00 AM) Pain affecting level of function: 0 (04/24/2023 9:00 AM) Cognitive impairment: 0 (04/24/2023 9:00 AM) Score - a score of 4 or more is considered at risk for fallin (04/24/2023 9:00 AM) Heart Failure Checklist A "good day" for the patient looks like no swelling, no SOB. Today is different than a "good day": Yes. Patient stated there is more edema, shortness of breath, cough, change in color of mucus, and/or fever. Patient describes sleep as Change in sleep pattern or ease. SOB while supine.Using 3 pillows to elevate. feels like he is choking, like there's something there and he can't bring it up. Frequent cough through the night especially in early AM when first waking - productive. Uses flutter valve - which makes him cough more. States he brings up a large amount of mucous. The patient has been asked to track the amount of fluid they drink: No. There is an AMC scale in the home: No. - patient is checking weight and VS daily. Records on log provided by Home Health. Weight is steady. Typically, the patient's meals look like Patient's food choices are lower in sodium. Patient reports prior to hospitalization, he was eatinga lot of salty food to bring up his blood pressure - states SBP was often <100. Now avoiding salt, not adding salt to foods. Patient goes to daughter's home every Monday for dinner, and she sends leftovers for him to eat for a couple days. Patient states he cooks and bakes for himself - recentlymade an apple pie. Uses black and red pepper to season foods - states not even using salt substitute. Patient eats a lot of fresh fruits and vegetables - usually gardens, but didn't this year. Neighbors have been bringing fresh vegetables. Reviewed serving size/sodium content of margarine and condiments. Advised to refrain from using hotsauce. Patient uses "garlic & black pepper" seasoning blend. Checked label - very high in sodium. Educated patient to review nutrition label prior to purchasing/using anything. Even if it doesn'tsay salt on the label, it may contain salt. Patient verbalized understanding. Provided with educational materials re: reading nutritional labels and acceptable amount of sodium per serving. Suggestedpatient take this to the grocery store for reference to ensure he is following low salt diet. Has been struggling with getting protein - concerned about salt in meat. Advised to avoid processedmeat - fresh meat is good. States he avoids anything "pre done" like TV dinners, pot pies. Has beeneating a lot of chicken tenders that he cooks in the microwave. No packaging available to check sodium content. Educated patient that chicken tenders are generally loaded with salt. If patient wants c hicken tenders, buy fresh chicken breast, cut into strips, and coat with unseasoned bread crumbs and salt free seasoning. States he splits a cow with his family. Makes a lot of steak, hamburger. Advised patient not to addsalt while he is cooking Home Safety Does member identify any safety issues related to entering or exiting their home? No Does the patient need a wheelchair ramp to access the home? No Snow/ice removal assistance available? Yes Is there adequate lighting? Yes Are there railings on stairs? Yes Do sidewalks appear to be in good repair? Yes Does member identify any safety issues related to the interior of their home? No If durable medical equipment is used, halls and doorways easy to navigate? N/A Are there trip hazards in the home? No Are there working smoke detectors/CO2 detectors? Yes Is a health condition present or an air quality concern that an air conditioner or other coolingdevice will help? N/A Do stairs in the home have railings? Yes Is there a medical alert or phone near patient? Yes Are walkways clear and well lit? Yes Does member identify any safety issues related to utilizing or accessing the bathroom in their home? No Does bathroom have grab bars needed? No The patient reports needing help getting on and off the toilet? No Does the patient report needing help bathing? No Patient independent with all ADLs, although states he has been more weak lately Are there any other identified issues/needs? No. If yes specify: Plan: Notified Provider/Timber Sizer Operatorpai gow manager in condition: productive cough, more SOB, more weak, reports feeling like he is "filling with fluid again" Recommended referral for: Other STAT CXR Follow Up: Patient encouraged to call the intake phone number for all urgent but not emergent issues. Scheduled to follow up with patient in as needed. [facility] 04/24/2023 8:52 AM documented in this encounter Plan of Treatment Upcoming Encounters Date Type Specialty Care Team Description 04/26/2023 Nutrition Services Nutrition Services Kelly Peraza, BARBARAN [address] [place] [address] 06/20/2023 Office Visit Family Medicine Ben Cisneros MD [address] [place] [address] [place] [address] 07/12/2023 Nurse Only Ancillary Rubina, Nurse Annual Wellness [address] [place] [address] [place] [address] 07/13/2023 Office Visit Cardiology Brenton Padilla PA-C [address] [place] [address] 11/29/2023 Office Visit Dermatology Dalila West PA-C [address] [place] [address] [place] [address] Health Maintenance Due Date Last Done Comments COVID-19 Vaccine (4 - Moderna series) 03/04/2022 01/07/2022, 12/31/2020, 12/03/2020 CKD PHOS USE SMARTSET 46972 05/12/202305/02, 10/05/2020, 04/01/2020, Additional history exists Influenza Vaccine (FLU shot) (#1) 2023 07/08/2022, 06/17/2021, 07/22/2020, Additional history exists Depression Screening, Annual for Pts 12 and Over 07/08/2023 07/08/2022 DTaP,Tdap,and Td Vaccines (2 - Td or Tdap) 10/14/2023 10/14/2013, 07/22/2008 Albumin/Creatinine Ratio 02/15/2024 023, 04/07/2022, 10/05/2020, Additional history exists CKD HGB USE SMARTSET 84355 02/15/202402/14, 04/07/2022, 10/05/2020, Additional history exists Pneumococcal [...] failure (HCC)- Primary Chronic systolic heart failure Lung nodules Other nonspecific abnormal finding of lung field [place] workers pneumoconiosis (HCC) [place] workers' pneumoconiosis History of prostate cancer Personal history of malignant neoplasm of prostate Chronic kidney disease, stage 3b (HCC) Interstitial pulmonary disease (HCC) Postinflammatory pulmonary fibrosis Primary hypertension Unspecified essential hypertension Restrictive lung disease Other diseases of lung, not elsewhere classified documented in this encounter Advance Directives Latest [...] patient or by statute hierarchy) Care Teams Embedded Hardware Engineer Relationship Specialty Start Date End Date Ben Cisneros MD [address] [place] [address] [place] [address] PCP - General Family Medicine 05/09/18 documented as of this encounter
--- OUTSIDE RECORDS SUMMARY | 2023-09-09 22:17 | External Medical Summary | Summary of Care ---
Author Name Unknown Organization [facility] Address [address] [place] [address] Phone [phone] Care Team Providers Care Sales Agent Marine Insurance Name Role Phone Ben Cisneros MD Primary Care Provider Encounter Details Date Type Department Care Team Description 04/25/2023 Orders Only Family Medicine [address] [phone] Ben Cisneros MD [address] [place] [address] [place] [id number] Chronic systolic heart failure (HCC)* Allergies Active Allergy Reactions Severity Noted Date [...] summer., Informant: Patient, Reported on 04/17/2023 Saline [place] 0.65 % Nasal Solution ([place]) Administer into nostril 1 [place] as needed for Congestion. 60 mL 5 [...] Tablet 1 03/13/2023 03/12/20 24 Active Ipratropium [place] HFA 17 MCG/ACT Inhalation [...] 0 Active Torsemide 100 MG Oral Tablet (Demadex)Indication s:Chronic systolic heart failure (HCC) Take 1 Tablet by mouth in the morning. 30 Tablet 0 04/25/2023 Active Torsemide 10 MG Oral Tablet (Demadex)Indication s:Chronic systolic heart failure (HCC) Take 2 Tablets by mouth in the morning. 200 Tablet 1 04/11/2023 04/25/20 23 Discontinu ed(Medicat ion/Dose Changed) Torsemide 10 MG Oral Tablet (Demadex) Take 2 Tablets by mouth in the morning. 8 Tablet 0 04/21/2023 04/25/20 23 Discontinu ed(Medicat ion/Dose Changed) documented as of this encounter (statuses as of 04/25/2023) Active Problems Problem Noted Date Hospital discharge follow-up 04/10/2023 Chronic systolic heart failure 3 Interstitial pulmonary disease 3 Pleural effusion due to CHF (congestive heart failure) 04/10/2023 Medical home patient encounter 3 Nocturnal hypoxemia 04/08/2022 Overview: Wears 2 LPM via [place], DME: [facility] Chronic rhinitis 04/08/2022 Lung nodules 04/08/2022 [...] appointment. 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 07/31/20 09 Bilateral carpal tunnel syndrome 05/10/2018 [...] Nutrition Services Kelly Peraza, DARCY [address] [place] [address] 06/20/2023 Office Visit Family Medicine Ben Cisneros MD [address] [place] [address] [place] [address] 07/12/2023 Nurse Only Ancillary [place], Nurse Annual Wellness [address] [place] [address] [place] [address] 07/13/2023 Office Visit Cardiology Brenton Padilla PASienaC [address] [place] [address] 11/29/2023 Office Visit Dermatology Dalila West PA-C [address] [place] [address] [place] [address] Health Maintenance Due Date Last Done Comments COVID-19 Vaccine (4 - Moderna series) 03/04/2022 01/07/2022, 12/31/2020, 12/03/2020 CKD PHOS USE SMARTSET 40839 05/12/202305/02, 10/05/2020, 04/01/2020, Additional history exists Influenza Vaccine (FLU shot) (#1) 2023 07/08/2022, 06/17/2021, 07/22/2020, Additional history exists Depression Screening, Annual for Pts 12 and Over 07/08/2023 07/08/2022 DTaP,Tdap,and Td Vaccines (2 - Td or Tdap) 10/14/2023 10/14/2013, 07/22/2008 Albumin/Creatinine Ratio 02/15/2024 023, 04/07/2022, 10/05/2020, Additional history exists CKD HGB USE SMARTSET 53477 02/15/202402/14, 04/07/2022, 10/05/2020, Additional history exists Pneumococcal [...] Agents on File Name Relationship [facility] Susu Quezada Adult Child Health Care Repr esentative (appointed verbally by patient or by statute hierarchy) Care Teams Sales Agent Marine Insurance Relationship Specialty Start Date End Date Ben Cisneros MD [address] [place] [address] [place] [address] PCP - General Family Medicine 05/09/18 documented as of this encounter
--- OUTSIDE RECORDS SUMMARY | 2023-09-09 22:18 | External Medical Summary | Summary of Care ---
Author Name Unknown Organization [facility] Address [address] [place] [address] Phone [phone] Care Team Providers Care Insulation Board Coater Operator Name Role Phone Ben Cisneros MD Primary Care Provider Reason for Visit * Reason Onset Date Comments Home Health 03/20/2023 Encounter Details Date Type Department Care Team Description 03/20/2023 Telephone Family Medicine [address] [phone] Ben Cisneros MD [address] [place] [address] [place] [id number] Home Health Allergies Active Allergy Reactions Severity Noted Date Comments No Known Drug Allergy 10/12/2000 documented as of this encounter (statuses as of 03/22/2023) Medications Medication Sig Dispensed Refills Start Date [...] on top 454 g 0 11/22/2021 Active Famotidine 20 MG Oral Tablet (Pepcid)Indications: Gastroesophageal reflux disease, unspecified whether esophagitis present Take by mouth 1 Tablet before bedtime. 90 Tablet 5 02/18/2022 Active Saline [place] 0.65 % Nasal Solution ([place]) Administer into nostril 1 [place] as needed for Congestion. 60 mL 5 04/08/2022 Active Fluticasone Propionate 50 MCG/ACT Nasal Suspension (Flonase) Administer 2 Sprays into nostril in the morning. 0 Active Flutter Device Provided at visit 1 Each 0 08/09/2022 Active Furosemide 40 MG Oral Tablet (Lasix)Indications:C hronic systolic heart failure (HCC) Take 1 Tablet by mouth in the morning. 100 Tablet 1 02/21/2023 Active Citalopram Hydrobromide 10 MG Oral Tablet (CeleXA)Indications: SOLEDAD (generalized anxiety disorder) TAKE ONE TABLET BY MOUTH EVERY MORNING 100 Tablet 1 03/06/2023 Active Carvedilol 12.5 MG Oral Tablet (Coreg)Indications:P rimary hypertension,Diastol ic dysfunction TAKE ONE TABLET BY MOUTH EVERY MORNING AND TAKE ONE TABLET BY MOUTH EVERY DAY BEFORE BEDTIME WITH FOOD 200 Tablet 1 03/06/2023 Active Ipratropium [place] HFA 17 MCG/ACT Inhalation Aerosol Solution (Atrovent HFA)Indications:[place] workers pneumoconiosis (HCC) Inhale 2 Puffs by mouth in the morning and 2 Puffs at noon and 2 Puffs in the evening and 2 Puffs before bedtime. 12.9 g 5 03/06/2023 Active Pantoprazole Sodium 20 MG Oral Tablet Delayed Release (Protonix)Indication s:Gastroesophageal reflux disease with esophagitis without hemorrhage Take 1 Tablet by mouth in the morning. 30 minutes before the first meal of the day. Do not crush, split or chew the tablet. 100 Tablet 1 03/13/2023 Active Rosuvastatin Calcium 10 MG Oral Tablet (Crestor)Indications :Dyslipidemia, goal LDL below 100 take one pill by mouth at bedtime 100 Tablet 1 03/13/2023 Active Tamsulosin HCl 0.4 MG Oral Capsule (Flomax)Indications: BPH with obstruction/lower urinary tract symptoms Two daily 200 Capsule 1 03/13/2023 Active documented as of this encounter (statuses as of 03/22/2023) Active Problems Problem Noted Date Medical home patient encounter 3 Nocturnal hypoxemia 04/08/2022 Overview: Wears 2 LPM via [place], DME: [facility] Chronic rhinitis [...] appointment. GENERAL OSTEOARTHROSIS INSOMNIA W SLEEP APNEA [place] workers pneumoconiosis Restrictive lung disease documented as of this encounter (statuses as of 03/22/2023) Resolved Problems Problem Noted Date Resolved Date [...] Rotator cuff rupture 05/22/2003 05/10/2018 LOC PRIM [id number] 05/22/2003 10/16/19 15 Prepatellar bursitis 05/22/2003 10/16/2014 Inflammation of sacroiliac joint 10/12/2001 10/16/2014 LOC PRIM OSTEOARTH-HAND 10/12/2001 10/16/19 15 Respiratory abnormality 07/31/20 09 Overview: ICD-10 update of inactive term Umbilical hernia 05/10/2018 Insomnia 10/16/2014 Overview: ICD-10 update of inactive term COPD, severity to be determined 07/07/2011 Allergic rhinitis 05/10/2018 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 NOS-MANAGER OF IT 07/31/20 09 Bilateral carpal tunnel syndrome 05/10/2018 CKD (chronic kidney disease), stage III 12/11/2018 Benign hypertension with CKD (chronic kidney disease) stage III 02/11/2021 Overview: Per CKD protocol documented as of this encounter (statuses as of 03/22/2023) Immunizations Name Administration Dates Next Due COVID-19 [...] encounter Miscellaneous Notes * Telephone Encounter - Tiny Gomes RN - 03/22/2023 10:36 AM EDT Pt notified and agreeable * Telephone Encounter - Delores Travis MD - 03/21/2023 5:04 PM EDT I would recommend avoiding alcohol * Telephone Encounter - Sole Phillips LPN - 03/20/2023 12:12 PM EDT Provider to address: Ben Cisneros MD Reason for Call: Home Health Contact: Telephone Call Contact Type: Information Outcome: Deyanira from [facility]. She had follow up phone calls with patient on Monday and today 03/20. Reports: When she spoke with patient on Monday, patient stated that his BP's been running 100's/50's--No dizziness, unless he sees top number below 100 He stated that he drinks 4- 12oz glasses of water a day When Deyanira spoke with patient today, BP's been running 90-100/50's-- Patient stated no dizziness unless he sees the top number below 80. Patient was asking her if he could have one beer at the club occasioanlly, he wants to make saima it is safe with the medications that he currently is prescribed. Please call patient to advise. Monday or this week, Deyanira is scheduled to see patient in person. Total Time including non face to face (minutes): 10 documented in this encounter Plan of Treatment Upcoming Encounters Date Type Specialty Care Team Description 03/31/2023 Office Visit Pulmonary EnCorey haider MD [address] [facility] [place] [address] 04/13/2023 Cardiac Studies Cardiac Studies 06/20/2023 Office Visit Family Medicine Ben Cisneros MD [address] [place] [address] [place] [address] 07/12/2023 Nurse Only Ancillary Movvamsi, Nurse Annual Wellness [address] [place] [address] [place] [address] 07/13/2023 Office Visit Cardiology Brenton Padilla PA-C [address] [place] [address] 11/29/2023 Office Visit Dermatology Dalila West PA-C [address] [place] [address] [place] [address] Health Maintenance Due Date Last Done Comments COVID-19 Vaccine (4 - Moderna series) 03/04/2022 01/07/2022, 12/31/2020, 12/03/2020 CKD PHOS USE SMARTSET 31433 05/12/202305/02, 10/05/2020, 04/01/2020, Additional history exists Depression Screening, Annual for Pts 12 and Over 07/08/2023 07/08/2022 DTaP,Tdap,and Td Vaccines (2 - Td or Tdap) 10/14/2023 10/14/2013, 07/22/2008 Albumin/Creatinine Ratio 02/15/2024 023, 04/07/2022, 10/05/2020, Additional history exists CKD HGB USE SMARTSET 59457 02/15/202402/14, 04/07/2022, 10/05/2020, Additional history exists Pneumococcal Vaccine: 65+ Years Completed 05/02/2015, 10/08/2002 Zoster Vaccines Completed 10/07/2021, 07/05/2021 Influenza Vaccine (FLU shot) Completed 04/2022, 06/17/2021, 07/22/2020, Additional history exists GARDASIL-HPV IMMUNIZATION SERIES Aged [...] patients wishes and were consensually agreed upon. Care Teams Insulation Board Coater Operator Relationship Specialty Start Date End Date Ben Cisneros MD [address] [place] [address] [place] [address] PCP - General Family Medicine 05/09/18 documented as of this encounter
--- OUTSIDE RECORDS SUMMARY | 2023-09-09 22:18 | External Medical Summary | Summary of Care ---
Author Name Unknown Organization [facility] Address [address] [place] [address] Phone [phone] Care Team Providers Care Gas Plant Worker Name Role Phone Ben Cisneros MD Primary Care Provider Reason for Visit * Reason Comments case management Encounter Details Date Type Department Care Team Description 03/15/2023 Expander Machine OperatorLife Skills Teacher [address] [place] [address] Eliza Palafox, ARTURO Medical home patient encounter* Allergies Active Allergy Reactions Severity Noted Date Comments No Known Drug Allergy 10/12/2000 documented as of this encounter (statuses as of 03/15/2023) Medications Medication Sig Dispensed Refills Start Date [...] bedtime. 90 Tablet 5 02/18/2022 Active Saline [place] 0.65 % Nasal Solution ([place]) Administer into nostril 1 [place] as needed for Congestion. 60 mL 5 [...] FOOD 200 Tablet 1 03/06/2023 Active Ipratropium [place] HFA 17 MCG/ACT Inhalation Aerosol Solution (Atrovent HFA)Indications:[place] workers pneumoconiosis (HCC) Inhale 2 Puffs by mouth in the morning and 2 Puffs at noon and 2 Puffs in the evening and 2 Puffs before bedtime. 12.9 g 03/06/2023 Active Pantoprazole Sodium 20 MG Oral [...] as of this encounter (statuses as of 03/15/2023) Active Problems Problem Noted Date Medical home patient encounter 3 Nocturnal hypoxemia 04/08/2022 Overview: Wears 2 LPM via [place], DME: [facility] Chronic rhinitis 04/08/2022 Lung nodules 04/08/2022 Overview: [...] appointment. GENERAL OSTEOARTHROSIS INSOMNIA W SLEEP APNEA [place] workers pneumoconiosis Restrictive lung disease documented as of this encounter (statuses as of 03/15/2023) Resolved Problems Problem Noted Date Resolved Date [...] Rotator cuff rupture 05/22/2003 05/10/2018 LOC PRIM [id number] 05/22/2003 10/16/19 15 Prepatellar bursitis 05/22/2003 10/16/2014 Inflammation of sacroiliac joint 10/12/2001 10/16/2014 LOC PRIM OSTEOARTH-HAND 10/12/2001 10/16/19 15 Respiratory abnormality 07/31/20 09 Overview: ICD-10 update of inactive term Umbilical hernia 05/10/2018 Insomnia 10/16/2014 Overview: ICD-10 update of inactive term COPD, severity to be determined 07/07/2011 Allergic rhinitis 05/10/2018 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 Verified patient name/. Advised patient that call is being recorded for quality and training purposes. Assessment: Pt. noted the following: Pleasant, alert and oriented x 3. He is "doing much better". Home health was in to start care today, but will only need to come into next week, Per patient "they dont feel I need that much help". He lives alone in one story home with basement. He does not use assistive devices, but has a walker and cane available if he needed. He is independent with ADLs, Daughter Susu is his POA and helps with any iADLs if needed. He gives permission to talk to her if he would be unable to be reached. Had ankle edema prior to admission, this is improved. Still with cough, but no longer productive as he reports was prior to hospitalization. Has oxygen to use at nighttime. Completedprednisone and antibiotic. Is having some loose stools, no bright red blood or black tarry reported. Was instructed at the hospital to limit fluids "to four 12 oz cups a day". Reports appetite "is probably too good". Instructed to continue to monitor stools, report any worsening symptoms, or abd cramping . Voiding without difficulty. Plans to repeat labs tomorrow to recheck kidney function. Discussed signs ad symptoms of fluid overload and also fluid deficit. Did you receive an alert for an annual wellness visit? No Is this call for a hospital, residential or rehab facility discharge to home? Yes [facility] d/c Medication Reconciliation: Medication Reconciliation completed: yes Review of Current goals: Discussed the following patient-centered CM goals with the patient during this discussion: -HEART FAILURE: Achieve successful management of heart failure. -Status: On Track Patient had cardiology follow up, is adherent with medication.. -Medications: Maintain restriction status -Status: On Track currently limiting to 48 oz fluid a day. -RESPIRATORY: Patient/caregiver will monitor for exacerbation of respiratory condition and treat accordingly -Status: On Track patient verbalizes understanding of symptoms to monitor and report. COPD Patient: No, but mineral economist lung disease present CHF Patient: YES Reinforced fluid restriction and low sodium diet. , Swelling: not present at this time CM Plan: see above for red flags discussed with patient Remote Patient Monitoring: At this time, RPM not offered/considered for patient due to defer decision to primary telephonic nurse case manager Jeanie Davidson RN. . Plan for Future Contacts: Plan to follow up within 1 week to check progress on the following goals/needs cardio-pulmonary status. Planned contacts from the following parties will occur this week: PCP office visit, Specialty Visitand home health as additional contacts per workflow. Advancement/Closure Plan: Keep patient at current Tier with reassessment per workflow. Patient provided CM contact information and encouraged to call with any changes in condition. SNP Member? No PCP Notified of enrollment in CM/HM program: Yes Is Provider in agreement with POC? Yes Eliza Palafox, RN Outpatient Case Management documented in this encounter Plan of Treatment Upcoming Encounters Date Type Specialty Care Team Description 03/16/2023 Laboratory Laboratory [place], Lab [address] [place] [address] 03/31/2023 Office Visit [facility] [address] [facility] [address] 04/13/2023 Cardiac Studies Cardiac Studies 06/20/2023 Office Visit Family Medicine Ben Cisneros MD [address] [place] [address] [place] [address] 07/12/2023 Nurse Only Ancillary [place], Nurse Annual Wellness [address] [place] [address] [place] [address] 07/13/2023 Office Visit Cardiology Brenton Padilla PA-C [address] [place] [address] 11/29/2023 Office Visit Dermatology Dalila West PA-C [address] [place] [address] [place] [id number] Health Maintenance Due Date Last Done Comments COVID-19 Vaccine (4 - Moderna series) 03/04/2022 01/07/2022, 12/31/2020, 12/03/2020 CKD PHOS USE SMARTSET 19101 05/12/2023 0810/2021, 10/05/2020, 04/01/2020, Additional history exists Depression Screening, Annual for Pts 12 and Over 07/08/2023 07/08/2022 DTaP,Tdap,and Td Vaccines (2 - Td or Tdap) 10/14/2023 10/14/2013, 07/22/2008 Albumin/Creatinine Ratio 02/15/2024 023, 04/07/2022, 10/05/2020, Additional history exists CKD HGB USE SMARTSET 76236 02/15/202402/14, 04/07/2022, 10/05/2020, Additional history exists Pneumococcal [...] home patient encounter- Primary Other specified examination documented in this encounter Advance Directives Latest Code Status on File Code Status Date Activated Date Inactivated Comments Full Code 06/26/2019 12:28 PM 06/26/2019 5:13 PM This order reflects the patients wishes and were consensually agreed upon. Care Teams Gas Plant Worker Relationship Specialty Start Date End Date Ben Cisneros MD [address] [place] [address] [place] [address] PCP - General Family Medicine 05/09/18 documented as of this encounter
--- OUTSIDE RECORDS SUMMARY | 2023-09-09 22:18 | External Medical Summary | Summary of Care ---
Author Name Unknown Organization [facility] Address [address] [place] [address] Phone [phone] Care Team Providers Care Surgeon Assistant Name Role Phone Ben Cisneros MD Primary Care Provider [phone] Encounter Details Date Type Department Care Team Description 04/17/2023 Cafeteria AssistantSql Dba Medicine [address] [phone] Jeanie Estrada, RN [address], [place] [id number] Medical home patient encounter*; Hospital discharge follow-up; Chronic systolic heart failure (HCC); Pneumonia; Restrictive lung disease; Gallia workers pneumoconiosis (HCC); Bilateral pleural effusion; Advanced care planning/counseling discussion Allergies Active Allergy Reactions Severity Noted Date Comments No Known Drug Allergy 10/12/2000 documented as of this encounter (statuses as of 04/17/2023) Medications Medication Sig Dispensed Refills Start Date [...] summer., Informant: Patient, Reported on 04/17/2023 Saline [place] 0.65 % Nasal Solution ([place]) Administer into nostril 1 [place] as needed for Congestion. 60 mL 5 [...] 100 Tablet 1 03/13/2023 4 Active Ipratropium [place] HFA 17 MCG/ACT Inhalation Aerosol Solution (Atrovent Hfa)Indications:Gallia workers pneumoconiosis (HCC) INHALE TWO PUFFS BY [...] as of this encounter (statuses as of 04/17/2023) Active Problems Problem Noted Date Hospital discharge follow-up 04/10/2023 Chronic systolic heart failure 3 Interstitial pulmonary disease 3 Pleural effusion due to CHF (congestive heart failure) 04/10/2023 Medical home patient encounter 3 Nocturnal hypoxemia 04/08/2022 Overview: Wears 2 LPM via [place], DME: [facility] Chronic rhinitis 04/08/2022 [...] appointment. GENERAL OSTEOARTHROSIS INSOMNIA W SLEEP APNEA Gallia workers pneumoconiosis Restrictive lung disease documented as of this encounter (statuses as of 04/17/2023) Resolved Problems Problem Noted Date Resolved Date [...] Rotator cuff rupture 05/22/2003 05/10/2018 LOC PRIM [id number] 05/22/2003 10/16/19 15 Prepatellar bursitis 05/22/2003 10/16/2014 Inflammation of sacroiliac joint 10/12/2001 10/16/2014 LOC PRIM OSTEOARTH-HAND 10/12/2001 10/16/19 15 Respiratory abnormality 07/31/20 09 Overview: ICD-10 update of inactive term Umbilical hernia 05/10/2018 Insomnia 10/16/2014 Overview: ICD-10 update of inactive term COPD, severity to be determined 07/07/2011 Allergic rhinitis 05/10/2018 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 Verified patient name/. Advised patient that call is beingrecorded for quality and training purposes. Assessment: Pt. noted the following: alert, oriented, pleasant. Reports overall condition as "pretty good". [facility] Family very supportive, reports almost all his children ,and grandchildren, live within a 2 mile radius. Daughter comes or call every day. Son comes a couple times a week. Grandson calls almost every day. Lives in a one story home, with basement. Laundry is in basement, but daughter does that. He has no reason to go down there. Does not use any ambulation assisting devices, does use the wall and/or furniture to move throughout his home. Declines devices, reports he feels more secure with the ramires and furniture. Denies falls. Does haveoccasional brief lightheadedness when walking, not so much with position changes. Most recent episode was yesterday. Denies chest pain, although when he gets short of breath, his chest sometimes feels 'funny'. Has chronic swelling in ankles/feet, right >left. Elevates in his recliner. Discussed elevating higher than his heart a couple times per day, for about an hour at a time. Most recent EF was 25-30%. Denies shortness of breath at rest, does have some dyspnea with exertion - then says notreally short of breath, just feels like he is "not getting enough air". Uses his Atrovent inhaler as ordered. Also using incentive spirometer multiple times throughout the day. Uses oxygen, at night only, at 2 LPM. Reports he has that about 8 years. Reports [facility] does not come to service concentrator or send supplies. He washes the filters periodically and has to buy his own oxygen tubing? CM sending request to PCP to send order for supplies to [facility]. Denies cough. Former smoker. Bowels have improved. Had been having diarrhea when on the antibiotic, which is now finished. Bowels now only moving 2 x day, and they are soft formed. Last BM was yesterday. Voiding without issue, urine is "light yellow". Denies pain. Sleeping good. Sleeps in his own bed. Able to lie flat and sleep. Appetite/intake "too good". Slightly increased his water intake yesterday, after getting lightheaded. Med rec completed with patient. Patient manages his own medications. Uses mail order pharmacy. Checks weights, blood pressure, and pulse ox every morning. Has a digital scale. Today's stats: 117/63,pulse ox 96%, weight 176 lbs. Home weight has been ranging from 175 - 177 lbs. Systolic BP ranges 111-117, diastolic 56-63. Pulse ox ranges 93-96%. Initiated discussion on Advance Directives. Alreadyhas a regular will, living will, durable POA for both financial and medical. Reports his daughter, Susu Quezada, is to be his voice if he is unable to speak for himself. He had an research attorney draw themup years ago. He is willing to bring to his June appointment so the living will and DMPOA can be scanned into his chart. Agreeable to post discharge IVR calls. Did you receive an alert for an annual wellness visit? No Is this call for a hospital, longterm or rehab facility discharge to home? Yes - patient was inpatient at [facility] from 03/28/23 to 04/05/23. Discharge dx: respiratory failure, CHF, pneumonia, restrictive lung disease, pneumoconiosis, bilateral pleural effusion. Medication Reconciliation: Medication Reconciliation completed: yes Review of Current goals: Discussed the following patient-centered CM goals with the patient during this discussion: -Prevention: Prevent admission/readmission -Status: On Track - pulmonary and PCP follow ups kept. Taking meds as ordered. Completed his antibiotics. TONY referral placed. Receptive to continued participation with case management. Agreeable to post discharge IVR calls. -HEART FAILURE: Achieve successful management of heart failure. -Status: On Track - performs daily dry weights using a digital scale. Recognizes and reports changes in condition. Did not get the opportunity to assess patient's sodium use. Takes medications as ordered. No DTP in place. Was just changed from furosemide to torsemide. Outcome pending. -RESPIRATORY: Patient/caregiver will monitor for exacerbation of respiratory condition and treat accordingly -Status: On Track - using Atrovent inhaler as ordered. Continued use of Incentive Spirometer multiple times per day. Cough is gone. Dyspneic only with exertion, none at rest. Using O2 at 2 LPM at night only. Has his own pulse oximeter, and checks daily. COPD Patient: No CHF Patient: YES Scale: YES, Current Weight: 178.8lbs, Swelling: ankles/feet, right>left. CM Plan: Reviewed 3 Red Flags with patient. Advised to call CM with any of the following: Red Flag 1: increased shortness of breath/cough/wheezing/congestion, Red Flag 2: sudden weight gain of 3 lbs overnightor 5 lbs in a week or Red Flag 3: falls or injury and Referral to: [facility] for home visit, home safety assessment, bottles out med rec, vital signs including pulse ox and weight, review low sodium diet, r eview proper use and cleaning of inhaler/home oxygen. . Remote Patient Monitoring: At this time, RPM not offered/considered for patient due to patient has a routine using his own digital scale, pulse ox, and BP monitor. . Plan for Future Contacts: Plan to follow up within 1 week to check progress on the following goals/needs - falls, home PT?, edema/swelling? Respiratory status? Still using spirometer? Did you hear [facility]? Bowels moving? Eating okay? Sodium use? Dizziness? Elevating feet?. Planned contacts from the following parties will occur this week: PCP office visit and echo completed in past week. as additional contacts per workflow. Advancement/Closure Plan: Keep patient at current Tier with reassessment per workflow. Patient provided CM contact information and encouraged to call with any changes in condition. SNP Member? No PCP Notified of enrollment in CM/HM program: Yes, previously Is Provider in agreement with POC? Yes Jeanie Estrada RN Outpatient Case Management documented in this encounter Miscellaneous Notes * ACP (Advance Care Planning) - Jeanie Estrada RN - 04/17/2023 9:53 AM EDT Images from the original note were not included. Patient-centered Communication 04/17/2023 The patient/surrogate voluntarily agreed to participate in advance care planning discussion. Location: telephone Individual(s) present for conversation: Patient Decisions Additional Comments Synopsis SmartLink Most Recent Value Past ~10 years 04/17/2023 09:48 Additional Comments Additional Comments: Initiated discussion on advance directives. None in chart. Patient reports he already has his regular will, a living will, and durable POA for medical and financial completed - done by an research attorney. Names his daughter, Susu Mak, as his DMPOA/financial POA. Asked patient ifhe could bring in his living will and medical POA to be copied/scanned into his chart? YES, "I can do that." He will bring to his next appointment, in June. 04/17/2023 Initiated discussion on advance directives. None in chart. Patient reports he already hashis regular will, a living will, and durable POA for medical and financial completed - done by an research attorney. Names his daughter, Susu Mak, as his DMPOA/financial POA. Asked patient if he could bring in his living will and medical POA to be copied/scanned into his chart? YES, "I can do that." He will bring to his next appointment, in June. Discerning What Matters Most to the Patient: Synopsis SmartLink Most Recent Value Past ~10 years 04/17/2023 09:21 Discerning What Matters Most to the Patient Their current SYMPTOMS include: Shortnes of breath 04/17/2023 Shortnes of breath Was PROGNOSIS discussed? No 04/17/2023 No Source: Content from [employer] Program Aligning Care With What Matters Most: No data to display Rationale for Decisions Source: Content from [employer] 0 minutes spent in direct [id number] discussion today, Jeanie Estrada RN documented in this encounter Plan of Treatment Upcoming Encounters Date Type Specialty Care Team Description 06/20/2023 Office Visit Family Medicine Ben Cisneros MD [address] [place] [address] [place] [address] 07/12/2023 Nurse Only Ancillary Rubina Nurse Annual [address] [place] [address] 07/13/2023 Office Visit Cardiology Brenton Padilla PA-C [address] [place] [address] 11/29/2023 Office Visit Dermatology Dalila West PA-C [address] [place] [address] [place] [address] Health Maintenance Due Date Last Done Comments COVID-19 Vaccine (4 - Moderna series) 03/04/2022 01/07/2022, 12/31/2020, 12/03/2020 CKD PHOS USE SMARTSET 87487 05/12/202305/02, 10/05/2020, 04/01/2020, Additional history exists Influenza Vaccine (FLU shot) (#1) 2023 07/08/2022, 06/17/2021, 07/22/2020, Additional history exists Depression Screening, Annual for Pts 12 and Over 07/08/2023 07/08/2022 DTaP,Tdap,and Td Vaccines (2 - Td or Tdap) 10/14/2023 10/14/2013, 07/22/2008 Albumin/Creatinine Ratio 02/15/2024 023, 04/07/2022, 10/05/2020, Additional history exists CKD HGB USE SMARTSET 01600 02/15/202402/14, 04/07/2022, 10/05/2020, Additional history exists Pneumococcal [...] home patient encounter- Primary Other specified examination Hospital discharge follow-up Other follow-up examination Chronic systolic heart failure (HCC) Chronic systolic heart failure Pneumonia Pneumonia, organism unspecified Restrictive lung disease Other diseases of lung, not elsewhere classified 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 Healthcare Agents on File Name Relationship Healthcare Agent [facility] p Communication Susu Quezada Adult Child Health Care Repr esentative (appointed verbally by patient or by statute hierarchy) Care Teams Surgeon Assistant Relationship Specialty Start Date End Date Ben Cisneros MD [address] [place] [address] [place] [address] PCP - General Family Medicine 05/09/18 documented as of this encounter
--- OUTSIDE RECORDS SUMMARY | 2023-09-09 22:18 | External Medical Summary ---
Author Name Unknown Address Unknown Organization K01:LABORATORY [facility] [place] - [address] [facility] [address] Laboratory Report Ordering Provider Test Date Status MYCHAL RODRIGUEZ 03/16/2023 09:50:08 Final Observation Date Value Abnormality Reference (Units ) Status BUN 03/16/2023 09:50:08 43 Above high normal 6-20 (mg/dL) Final Creatinine 03/16/2023 09:50:08 2.1 Above high normal 0.6-1.2 (mg/dL) Final Glomerular filtration rate/1.73 sq M.predicted [Volume Rate/Area] in Serum, Plasma or Blood by Creatinine-based formula (CKD-EPI) 03/16/2023 09:50:08 30 Below low normal >=60 (mL/min) Final eGFR is calculated based on the CKD-EPI 2020 equation SODIUM 03/16/2023 09:50:08 139 135-146 (m mol/L) Final Potassium 03/16/2023 09:50:08 4.4 3.5-5.1 (m mol/L) Final Cl 03/16/2023 09:50:08 97 Below low normal 98- 107 (mmol/L) Final CO2 03/16/2023 09:50:08 29 22-32 (mmo l/L) Final Anion gap 03/16/2023 09:50:08 13 7-15 (mmol /L) Final Glucose 03/16/2023 09:50:08 103 70-120 (mg /dL) Final Calcium 03/16/2023 09:50:08 9.8 8.4-10.2 ( mg/dL) Final Performing Location [facility]ORY [facility] - [address] [address]
--- OUTSIDE RECORDS SUMMARY | 2023-09-09 22:18 | External Medical Summary | Summary of Care ---
Author Name Unknown Organization [facility] Address [address] [place] [address] Phone [phone] Care Team Providers Care Cable Mock Up Assembler Name Role Phone Ben Cisneros MD Primary Care Provider Reason for Visit * Reason Comments Medication Refill Encounter Details Date Type Department Care Team Description 04/09/2023 Refill Pulmonary Medicine, [facility] [address] [facility] [place] [address] Teena Truong CRNP Gastroesophageal reflux disease, unspecified whether esophagitis present Allergies Active Allergy Reactions Severity Noted Date Comments No Known Drug Allergy 10/12/2000 documented as of this encounter (statuses as of 04/10/2023) Medications Medication Sig Dispensed Refills Start Date [...] top 454 g 0 11/22/2021 Active Saline [place] 0.65 % Nasal Solution ([place]) Administer into nostril 1 [place] as needed for Congestion. 60 mL 5 [...] 100 Tablet 1 03/13/2023 4 Active Ipratropium [place] HFA 17 MCG/ACT Inhalation Aerosol Solution (Atrovent Hfa)Indications:[place] workers pneumoconiosis (HCC) INHALE TWO PUFFS BY [...] BY MOUTH EVERY DAY BEFORE BEDTIME WITH FOOD. 200 Tablet 1 03/06/2023 4 Active Furosemide 40 MG Oral Tablet (Lasix)Indications:C hronic systolic heart failure (HCC) TAKE 1 TABLET BY MOUTH IN THE MORNING 100 Tablet 1 02/21/2023 4 Active Famotidine 20 MG Oral Tablet (Pepcid)Indications: Gastroesophageal reflux disease, unspecified whether esophagitis present Take 1 Tablet by mouth in the morning. 90 Tablet 3 04/10/2023 Active documented as of this encounter (statuses as of 04/10/2023) Active Problems Problem Noted Date Medical home patient encounter 3 Nocturnal hypoxemia 04/08/2022 Overview: Wears 2 LPM via [place], DME: [facility] [...] appointment. GENERAL OSTEOARTHROSIS INSOMNIA W SLEEP APNEA [place] workers pneumoconiosis Restrictive lung disease documented as of this encounter (statuses as of 04/10/2023) Resolved Problems Problem Noted Date Resolved Date [...] Rotator cuff rupture 05/22/2003 05/10/2018 LOC PRIM [id number] 05/22/2003 10/16/19 15 Prepatellar bursitis 05/22/2003 10/16/2014 Inflammation of sacroiliac joint 10/12/2001 10/16/2014 LOC PRIM OSTEOARTH-HAND 10/12/2001 10/16/19 15 Respiratory abnormality 07/31/20 09 Overview: ICD-10 update of inactive term Umbilical hernia 05/10/2018 Insomnia 10/16/2014 Overview: ICD-10 update of inactive term COPD, severity to be determined 07/07/2011 Allergic rhinitis 05/10/2018 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 NOS-MANAGER BILLING 07/31/20 09 Bilateral carpal tunnel syndrome 05/10/2018 CKD (chronic kidney disease), stage III 12/11/2018 Benign hypertension with CKD (chronic kidney disease) stage III 02/11/2021 Overview: Per CKD protocol documented as of this encounter (statuses as of 04/10/2023) Immunizations Name Administration Dates Next Due COVID-19 [...] encounter Miscellaneous Notes * Telephone Encounter - DAV Olivera - 04/10/2023 9:39 AM EDT Signed Prescriptions: Disp Refills Famotidine 20 MG Oral Tablet (Pepcid) 90 Tab*3 Sig: Take 1 Tablet by mouth in the morning. Authorizing Provider: ARLENE GRACIA * Telephone Encounter - Ramona Stoner LPN - 04/10/2023 9:38 AM EDTPending Prescriptions: Disp Refills Famotidine 20 MG Oral Tablet (Pepcid) 90 Tab*3 Sig: Take 1 Tablet by mouth in the morning. * Telephone Encounter - Ramona Stoner LPN - 04/10/2023 9:36 AM EDT Please sign, thanks. documented in this encounter Plan of Treatment Upcoming Encounters Date Type Specialty Care Team Description 04/10/2023 Office Visit Pulmonary Arlene Gracia CRNP [address] [place] [address] 04/11/2023 Office Visit Family Medicine Ben Cisneros MD [address] [place] [address] [place] [address] 04/13/2023 Cardiac Studies Cardiac Studies 06/20/2023 Office Visit Family Ben Olson MD [address] [place] [address] [place] [address] 07/12/2023 Nurse Only Ancillary Rubina, Nurse [address] [place] [address] 07/13/2023 Office Visit Cardiology Brenton Padilla PA-C [address] [place] [address] 11/29/2023 Office Visit Dermatology Dalila West PA-C [address] [place] [address] [place] [address] Health Maintenance Due Date Last Done Comments COVID-19 Vaccine (4 - Moderna series) 03/04/2022 01/07/2022, 12/31/2020, 12/03/2020 CKD PHOS USE SMARTSET 90658 05/12/202305/02, 10/05/2020, 04/01/2020, Additional history exists Influenza Vaccine (FLU shot) (#1) 2023 07/08/2022, 06/17/2021, 07/22/2020, Additional history exists Depression Screening, Annual for Pts 12 and Over 07/08/2023 07/08/2022 DTaP,Tdap,and Td Vaccines (2 - Td or Tdap) 10/14/2023 10/14/2013, 07/22/2008 Albumin/Creatinine Ratio 02/15/2024 023, 04/07/2022, 10/05/2020, Additional history exists CKD HGB USE SMARTSET 95250 02/15/202402/14, 04/07/2022, 10/05/2020, Additional history exists Pneumococcal [...] as of this encounter Visit Diagnoses Diagnosis Gastroesophageal reflux disease, unspecified whether esophagitis present documented in this encounter Advance Directives Latest Code Status on File Code Status Date Activated Date Inactivated Comments Full Code 06/26/2019 12:28 PM 06/26/2019 5:13 PM This order reflects the patients wishes and were consensually agreed upon. Care Teams Cable Mock Up Assembler Relationship Specialty Start Date End Date Ben Cisneros MD [address] [place] [address] [place] [address] PCP - General Family Medicine 05/09/18 documented as of this encounter
--- OUTSIDE RECORDS SUMMARY | 2023-09-09 22:18 | External Medical Summary | Summary of Care ---
Author Name Unknown Organization [facility] Address [address] [place] [address] Phone [phone] Care Team Providers Care Real Estate Sales Manager Name Role Phone Ben Cisneros MD Primary Care Provider Reason for Visit * Reason Onset Date Comments case management 04/17/2023 Order Request 04/17/2023 Encounter Details Date Type Department Care Team Description 04/17/2023 Electrical Plumbing Supervisor Telephone Family [address] [phone] Jeanie Estrada, RN [address] [place] [address] case management; Order Request Allergies [...] summer., Informant: Patient, Reported on 04/17/2023 Saline [place] 0.65 % Nasal Solution ([place]) Administer into nostril 1 [place] as needed for Congestion. 60 mL 5 [...] 100 Tablet 1 03/13/2023 4 Active Ipratropium [place] HFA 17 MCG/ACT Inhalation Aerosol Solution (Atrovent Hfa)Indications:[place] workers pneumoconiosis (HCC) INHALE TWO PUFFS BY [...] Overview: Wears 2 LPM via [place], DME: [facility] Chronic [...] appointment. GENERAL OSTEOARTHROSIS INSOMNIA W SLEEP APNEA [place] workers pneumoconiosis Restrictive lung disease documented as [...] Rotator cuff rupture 05/22/2003 05/10/2018 LOC PRIM [id number] 05/22/2003 10/16/19 15 Prepatellar bursitis 05/22/2003 10/16/2014 Inflammation of sacroiliac joint 10/12/2001 10/16/2014 LOC PRIM OSTEOARTH-HAND 10/12/2001 10/16/19 15 Respiratory abnormality 07/31/20 09 Overview: ICD-10 update of inactive term Umbilical hernia 05/10/2018 Insomnia 10/16/2014 Overview: ICD-10 update of inactive term COPD, severity to be determined 07/07/2011 Allergic rhinitis 05/10/2018 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 NOS-RIBBON BLOCKMAKER 07/31/20 09 Bilateral carpal tunnel syndrome 05/10/2018 [...] and faxed to [facility] @ [phone]. Fax confirmation received. * Telephone Encounter - [...] Office Visit Family Medicine Ben Cisneros MD [address] [place] [address] [place] [address] 07/12/2023 Nurse Only Ancillary Rubina, Nurse [facility] [address] [place] [address] [place] [address] 07/13/2023 Office Visit Cardiology Brenton Padilla PA-C [address] [place] [address] 11/29/2023 Office Visit Dermatology Dalila West PA-C [address] [place] [address] [place] [address] Health Maintenance Due Date Last Done Comments COVID-19 Vaccine (4 - Moderna series) 03/04/2022 01/07/2022, 12/31/2020, 12/03/2020 CKD PHOS USE SMARTSET 02958 05/12/202305/02, 10/05/2020, 04/01/2020, Additional history exists Influenza Vaccine (FLU shot) (#1) 2023 07/08/2022, 06/17/2021, 07/22/2020, Additional history exists Depression Screening, Annual for Pts 12 and Over 07/08/2023 07/08/2022 DTaP,Tdap,and Td Vaccines (2 - Td or Tdap) 10/14/2023 10/14/2013, 07/22/2008 Albumin/Creatinine Ratio 02/15/2024 023, 04/07/2022, 10/05/2020, Additional history exists CKD HGB USE SMARTSET 84986 02/15/202402/14, 04/07/2022, 10/05/2020, Additional history exists Pneumococcal [...] as of this encounter Visit Diagnoses Diagnosis [place] workers pneumoconiosis (HCC)- Primary [place] workers' pneumoconiosis documented in this encounter Advance Directives Latest Code Status on File Code Status Date Activated Date Inactivated Comments Full Code 06/26/2019 12:28 PM 06/26/2019 5:13 PM This order reflects the patients wishes and were consensually agreed upon. Healthcare Agents on File Name Relationship Healthcare Agent [facility] Communication Susu Quezada Adult Child Health Care Repr esentative (appointed verbally by patient or by statute hierarchy) Care Teams Real Estate Sales Manager Relationship Specialty Start Date End Date Ben Cisneros MD [address] [place] [address] [place] [address] PCP - General Family Medicine 05/09/18 documented as of this encounter
--- OUTSIDE RECORDS SUMMARY | 2023-09-09 22:18 | External Medical Summary | Summary of Care ---
Author Name Unknown Organization [facility] Address [address] [place] [address] Phone [phone] Care Team Providers Care Immunohematologist Name Role Phone Ben Cisneros MD Primary Care Provider Encounter Details Date Type Department Care Team Description 03/30/2023 Result Scan Unspecified Department <No scans attached> Allergies Active Allergy Reactions Severity Noted Date Comments No Known Drug Allergy 10/12/2000 documented as of this encounter (statuses as of 03/31/2023) Medications Medication Sig Dispensed Refills Start Date [...] bedtime. 90 Tablet 5 02/18/2022 Active Saline [place] 0.65 % Nasal Solution ([place]) Administer into nostril 1 [place] as needed for Congestion. 60 mL 5 [...] FOOD 200 Tablet 1 03/06/2023 Active Ipratropium [place] HFA 17 MCG/ACT Inhalation Aerosol Solution (Atrovent HFA)Indications:[place] workers pneumoconiosis (HCC) Inhale 2 Puffs by [...] as of this encounter (statuses as of 03/31/2023) Active Problems Problem Noted Date Medical home patient encounter 3 Nocturnal hypoxemia 04/08/2022 Overview: Wears 2 LPM via [place], DME: [facility] Chronic rhinitis [...] appointment. GENERAL OSTEOARTHROSIS INSOMNIA W SLEEP APNEA [place] workers pneumoconiosis Restrictive lung disease documented as of this encounter (statuses as of 03/31/2023) Resolved Problems Problem Noted Date Resolved Date [...] Rotator cuff rupture 05/22/2003 05/10/2018 LOC PRIM [id number] 05/22/2003 10/16/19 15 Prepatellar bursitis 05/22/2003 10/16/2014 Inflammation of sacroiliac joint 10/12/2001 10/16/2014 LOC PRIM OSTEOARTH-HAND 10/12/2001 10/16/19 15 Respiratory abnormality 07/31/20 09 Overview: ICD-10 update of inactive term Umbilical hernia 05/10/2018 Insomnia 10/16/2014 Overview: ICD-10 update of inactive term COPD, severity to be determined 07/07/2011 Allergic rhinitis 05/10/2018 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 NOS-BOARD CERTIFIED ARTS THERAPIST 07/31/20 09 Bilateral carpal tunnel syndrome 05/10/2018 CKD (chronic kidney disease), stage III 12/11/2018 Benign hypertension with CKD (chronic kidney disease) stage III 02/11/2021 Overview: Per CKD protocol documented as of this encounter (statuses as of 03/31/2023) Immunizations Name Administration Dates Next Due COVID-19 [...] Team Description 04/10/2023 Office Visit Pulmonary Arlene Gilliam CRNP [address] [place] [address] 04/13/2023 Cardiac Studies Cardiac Studies 06/20/2023 Office Visit Family Medicine Ben Cisneros MD [address] [place] [address] [place] [address] 07/12/2023 Nurse Only Ancillary [place], Nurse [facility] [address] [place] [address] [place] [address] 07/13/2023 Office Visit Cardiology Brenton Padilla PA-C [address] [place] [address] 11/29/2023 Office Visit Dermatology Dalila West PA-C [address] [place] [address] [place] [address] Health Maintenance Due Date Last Done Comments COVID-19 Vaccine (4 - Moderna series) 03/04/2022 01/07/2022, 12/31/2020, 12/03/2020 CKD PHOS USE SMARTSET 90695 05/12/202305/02, 10/05/2020, 04/01/2020, Additional history exists Depression Screening, Annual for Pts 12 and Over 07/08/2023 07/08/2022 DTaP,Tdap,and Td Vaccines (2 - Td or Tdap) 10/14/2023 10/14/2013, 07/22/2008 Albumin/Creatinine Ratio 02/15/2024 023, 04/07/2022, 10/05/2020, Additional history exists CKD HGB USE SMARTSET 62794 02/15/202402/14, 04/07/2022, 10/05/2020, Additional history exists Pneumococcal [...] Not on filedocumented as of this encounter Procedures Procedure Name Priority Date/Time Associated Diagnosis Comments RADIOLOGY SCANNED RESULT 03/30/2023 documented in this encounter Results * RADIOLOGY SCANNED RESULT (03/30/2023) 03/30/2023 No Physician Data Unknown DIAGNOSTIC RAD IOLOGY SERVICES documented in this encounter Advance Directives Latest Code Status on File Code Status Date Activated Date Inactivated Comments Full Code 06/26/2019 12:28 PM 06/26/2019 5:13 PM This order reflects the patients wishes and were consensually agreed upon. Care Teams Immunohematologist Relationship Specialty Start Date End Date Ben Cisneros MD [address] [place] [address] [place] [address] PCP - General Family Medicine 05/09/18 documented as of this encounter
--- OUTSIDE RECORDS SUMMARY | 2023-09-09 22:18 | External Medical Summary | Summary of Care ---
Author Name Unknown Organization [facility] Address [address] [place] [address] Phone [phone] Care Team Providers Care Director Packaging Name Role Phone Ben Cisneros MD Primary Care Provider Reason for Visit * Reason Onset Date Comments Test Results 04/17/2023 Encounter Details Date Type Department Care Team Description 04/17/2023 Telephone Cardiology, [facility] [address] [facility] [place] [address] [facility]rena [facility] [address] Test Results Allergies Active Allergy Reactions Severity Noted Date [...] top 454 g 0 11/22/2021 Active Saline [place] 0.65 % Nasal Solution ([place]) Administer into nostril 1 [place] as needed for Congestion. 60 mL 5 [...] 100 Tablet 1 03/13/2023 4 Active Ipratropium [place] HFA 17 MCG/ACT Inhalation Aerosol Solution (Atrovent Hfa)Indications:[place] workers pneumoconiosis (HCC) INHALE TWO PUFFS BY [...] hypoxemia 04/08/2022 Overview: Wears 2 LPM via [place], DME: [facility] Chronic rhinitis 04/08/2022 Lung nodules 04/08/2022 [...] appointment. GENERAL OSTEOARTHROSIS INSOMNIA W SLEEP APNEA [place] workers pneumoconiosis Restrictive lung disease documented as [...] Rotator cuff rupture 05/22/2003 05/10/2018 LOC PRIM [id number] 05/22/2003 10/16/19 15 Prepatellar bursitis 05/22/2003 10/16/2014 Inflammation of sacroiliac joint 10/12/2001 10/16/2014 LOC PRIM OSTEOARTH-HAND 10/12/2001 10/16/19 15 Respiratory abnormality 07/31/20 09 Overview: ICD-10 update of inactive term Umbilical hernia 05/10/2018 Insomnia 10/16/2014 Overview: ICD-10 update of inactive term COPD, severity to be determined 07/07/2011 Allergic rhinitis 05/10/2018 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 NOS-RETAIL COVERAGE MERCHANDISER 07/31/20 09 Bilateral carpal tunnel syndrome 05/10/2018 [...] encounter Miscellaneous Notes * Telephone Encounter - Victor Manuel Wilson LPN - 04/17/2023 4:53 PM EDT Sent patient a MyChart to make aware. ----- Message from Kelvin Urena MD sent at 04/14/2023 3:13 PM EDT ----- Echocardiogram demonstrates slight improvement from in-hospital study overall good . There remains in apical wall motion abnormality but with only mild reduced ejection fraction and no significant valvular disease documented in this encounter Plan of Treatment Upcoming Encounters Date Type Specialty Care Team Description 06/20/2023 Office Visit Family Medicine Ben Cisneros MD [address] [place] [address] [place] [address] 07/12/2023 Nurse Only Ancillary Rubina, Nurse Annual [facility] [address] [place] [address] [place] [address] 07/13/2023 Office Visit Cardiology Brenton Padilla PA-C [address] [place] [address] 11/29/2023 Office Visit Dermatology Dalila West PA-C [address] [place] [address] [place] [address] Health Maintenance Due Date Last Done Comments COVID-19 Vaccine (4 - Moderna series) 03/04/2022 01/07/2022, 12/31/2020, 12/03/2020 CKD PHOS USE SMARTSET 75635 05/12/2023 0810/2021, 10/05/2020, 04/01/2020, Additional history exists Influenza Vaccine (FLU shot) (#1) 2023 07/08/2022, 06/17/2021, 07/22/2020, Additional history exists Depression Screening, Annual for Pts 12 and Over 07/08/2023 07/08/2022 DTaP,Tdap,and Td Vaccines (2 - Td or Tdap) 10/14/2023 10/14/2013, 07/22/2008 Albumin/Creatinine Ratio 02/15/2024 023, 04/07/2022, 10/05/2020, Additional history exists CKD HGB USE SMARTSET 39417 02/15/202402/14, 04/07/2022, 10/05/2020, Additional history exists Pneumococcal [...] or by statute hierarchy) Care Teams Director Packaging Relationship Specialty Start Date End Date Ben Cisneros MD [address] [place] [address] [place] [address] PCP - General Family Medicine 05/09/18 documented as of this encounter
--- OUTSIDE RECORDS SUMMARY | 2023-09-09 22:18 | External Medical Summary | Summary of Care ---
Author Name Unknown Organization [facility] Address [address] [place] [address] Phone [phone] Care Team Providers Care Battery Installer Name Role Phone Ben Cisneros MD Primary Care Provider Reason for Visit * Reason Onset Date Comments Home Health 03/20/2023 Encounter Details Date Type Department Care Team Description 03/20/2023 Telephone Family Medicine [address] [phone] Ben Cisneros MD [address] [place] [address] [place] [address] Home Health Allergies Active Allergy Reactions Severity [...] bedtime. 90 Tablet 5 02/18/2022 Active Saline [place] 0.65 % Nasal Solution ([place]) Administer into nostril 1 [place] as needed for Congestion. 60 mL 5 [...] FOOD 200 Tablet 1 03/06/2023 Active Ipratropium [place] HFA 17 MCG/ACT Inhalation Aerosol Solution (Atrovent HFA)Indications:[place] workers pneumoconiosis (HCC) Inhale 2 Puffs by [...] Overview: Wears 2 LPM via [place], DME: [facility] Chronic rhinitis [...] appointment. GENERAL OSTEOARTHROSIS INSOMNIA W SLEEP APNEA [place] workers pneumoconiosis Restrictive lung disease documented as [...] Rotator cuff rupture 05/22/2003 05/10/2018 LOC PRIM [id number] 05/22/2003 10/16/19 15 Prepatellar bursitis 05/22/2003 10/16/2014 Inflammation of sacroiliac joint 10/12/2001 10/16/2014 LOC PRIM OSTEOARTH-HAND 10/12/2001 10/16/19 15 Respiratory abnormality 07/31/20 09 Overview: ICD-10 update of inactive term Umbilical hernia 05/10/2018 Insomnia 10/16/2014 Overview: ICD-10 update of inactive term COPD, severity to be determined 07/07/2011 Allergic rhinitis 05/10/2018 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 NOS-DOCTORATE OF CHIROPRACTIC 07/31/20 09 Bilateral carpal tunnel syndrome 05/10/2018 [...] Call Contact Type: Information Outcome: Deyanira from [facility]. She had follow up phone calls with [...] Visit Pulmonary EnCorey haider MD [address] [facility] [place] [address] 04/13/2023 Cardiac Studies Cardiac Studies 06/20/2023 Office Visit Family Medicine Ben Cisneros MD [address] [place] [address] [place] [address] 07/12/2023 Nurse Only Ancillary [place], Nurse [facility] [address] [place] [address] [place] [address] 07/13/2023 Office Visit Cardiology Brenton Padilla PA-C [address] [place] [address] 11/29/2023 Office Visit Dermatology Dalila West PA-C [address] [place] [address] [place] [address] Health Maintenance Due Date Last Done Comments COVID-19 Vaccine (4 - Moderna series) 03/04/2022 01/07/2022, 12/31/2020, 12/03/2020 CKD PHOS USE SMARTSET 27245 05/12/202305/02, 10/05/2020, 04/01/2020, Additional history exists Depression Screening, Annual for Pts 12 and Over 07/08/2023 07/08/2022 DTaP,Tdap,and Td Vaccines (2 - Td or Tdap) 10/14/2023 10/14/2013, 07/22/2008 Albumin/Creatinine Ratio 02/15/2024 023, 04/07/2022, 10/05/2020, Additional history exists CKD HGB USE SMARTSET 59853 02/15/202402/14, 04/07/2022, 10/05/2020, Additional history exists Pneumococcal [...] and were consensually agreed upon. Care Teams Battery Installer Relationship Specialty Start Date End Date Ben Cisneros MD [address] [place] [address] [place] [address] PCP - General Family Medicine 05/09/18 documented as of this encounter
--- OUTSIDE RECORDS SUMMARY | 2023-09-09 22:18 | External Medical Summary | Summary of Care ---
Author Name Unknown Organization [facility] Address [address] [place] [address] Phone [phone] Care Team Providers Care Recenterer Name Role Phone Ben Cisneros MD Primary Care Provider Reason for Visit * Reason Comments Outpatient Testing Encounter Details Date Type Department Care Team Description 03/16/2023 Laboratory Laboratory [address] [place] [phone] [place] [address] HFrEF (heart failure with reduced ejection fraction) ([facility]) Allergies Active Allergy Reactions Severity Noted Date Comments No Known Drug Allergy 10/12/2000 documented as of this encounter (statuses as of 03/16/2023) Medications Medication Sig Dispensed Refills Start Date [...] bedtime. 90 Tablet 5 02/18/2022 Active Saline [place] 0.65 % Nasal Solution ([place]) Administer into nostril 1 [place] as needed for Congestion. 60 mL 5 [...] FOOD 200 Tablet 1 03/06/2023 Active Ipratropium [place] HFA 17 MCG/ACT Inhalation Aerosol Solution (Atrovent HFA)Indications:[place] workers pneumoconiosis (HCC) Inhale 2 Puffs by [...] as of this encounter (statuses as of 03/16/2023) Active Problems Problem Noted Date Medical home patient encounter 3 Nocturnal hypoxemia 04/08/2022 Overview: Wears 2 LPM via [place], DME: [facility] Chronic rhinitis 04/08/2022 Lung [...] appointment. GENERAL OSTEOARTHROSIS INSOMNIA W SLEEP APNEA [place] workers pneumoconiosis Restrictive lung disease documented as of this encounter (statuses as of 03/16/2023) Resolved Problems Problem Noted Date Resolved Date [...] Rotator cuff rupture 05/22/2003 05/10/2018 LOC PRIM [id number] 05/22/2003 10/16/19 15 Prepatellar bursitis 05/22/2003 10/16/2014 Inflammation of sacroiliac joint 10/12/2001 10/16/2014 LOC PRIM OSTEOARTH-HAND 10/12/2001 10/16/19 15 Respiratory abnormality 07/31/20 09 Overview: ICD-10 update of inactive term Umbilical hernia 05/10/2018 Insomnia 10/16/2014 Overview: ICD-10 update of inactive term COPD, severity to be determined 07/07/2011 Allergic rhinitis 05/10/2018 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 07/31/20 09 Bilateral carpal tunnel syndrome 05/10/2018 CKD (chronic kidney disease), stage III 12/11/2018 Benign hypertension with CKD (chronic kidney disease) stage III 02/11/2021 Overview: Per CKD protocol documented as of this encounter (statuses as of 03/16/2023) Immunizations Name Administration Dates Next Due COVID-19 [...] Care Team Description 03/31/2023 Office Visit Pulmonary Corey Barajas MD [address] [facility] [place] [address] 04/13/2023 Cardiac Studies Cardiac Studies 06/20/2023 Office Visit Family Medicine Ben Cisneros MD [address] [place] [address] [place] [address] 07/12/2023 Nurse Only Ancillary Rubina, Nurse Annual Wellness [address] [place] [address] [place] [address] 07/13/2023 Office Visit Cardiology Brenton Padilla PA-C [address] [place] [address] 11/29/2023 Office Visit Dermatology Dalila West PA-C [address] [place] [address] [place] [phone] Pending Results Name Type Priority Associated Diagnoses Date /Time BASIC METABOLIC PANEL Lab Routine HFrEF (heart failure with reduced ejection fraction) ([facility]) 03/16/2023 9:50 AM EDT Health Maintenance Due Date Last Done Comments COVID-19 Vaccine (4 - Moderna series) 03/04/2022 01/07/2022, 12/31/2020, 12/03/2020 CKD PHOS USE SMARTSET 69114 05/12/202305/02, 10/05/2020, 04/01/2020, Additional history exists Depression Screening, Annual for Pts 12 and Over 07/08/2023 07/08/2022 DTaP,Tdap,and Td Vaccines (2 - Td or Tdap) 10/14/2023 10/14/2013, 07/22/2008 Albumin/Creatinine Ratio 02/15/2024 023, 04/07/2022, 10/05/2020, Additional history exists CKD HGB USE SMARTSET 58726 02/15/202402/14, 04/07/2022, 10/05/2020, Additional history exists Pneumococcal [...] HFrEF (heart failure with reduced ejection fraction) ([facility]) documented in this encounter Advance Directives Latest Code Status on File Code Status Date Activated Date Inactivated Comments Full Code 06/26/2019 12:28 PM 06/26/2019 5:13 PM This order reflects the patients wishes and were consensually agreed upon. Care Teams Recenterer Relationship Specialty Start Date End Date Ben Cisenros MD [address] [place] [address] [place] [address] PCP - General Family Medicine 05/09/18 documented as of this encounter
--- OUTSIDE RECORDS SUMMARY | 2023-09-09 22:18 | External Medical Summary | Summary of Care ---
Author Name Unknown Organization [facility] Address [address] [place] [address] Phone [phone] Care Team Providers Care Fabric Cutter Name Role Phone Ben Cisneros MD Primary Care Provider Encounter Details Date Type Department Care Team Description 03/30/2023 Result Scan Unspecified Department Ben Cisneros MD [address] [place] [address] [place] [address] <No scans attached> Allergies Active Allergy Reactions [...] top 454 g 0 11/22/2021 Active Saline [place] 0.65 % Nasal Solution ([place]) Administer into nostril 1 [place] as needed for Congestion. 60 mL 5 [...] 100 Tablet 1 03/13/2023 4 Active Ipratropium [place] HFA 17 MCG/ACT Inhalation Aerosol Solution (Atrovent Hfa)Indications:[place] workers pneumoconiosis (HCC) INHALE TWO PUFFS BY [...] evening meals. 200 Tablet 1 03/06/2023 Active documented as of this encounter (statuses as of 04/17/2023) Active Problems Problem Noted Date Hospital discharge follow-up 04/10/2023 Chronic systolic heart failure 3 Interstitial pulmonary disease 3 Pleural effusion due to CHF (congestive heart failure) 04/10/2023 Medical home patient encounter 3 Nocturnal hypoxemia 04/08/2022 Overview: Wears 2 LPM via [place], DME: [facility] Chronic rhinitis 04/08/2022 [...] appointment. GENERAL OSTEOARTHROSIS INSOMNIA W SLEEP APNEA 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 07/31/20 09 Bilateral carpal tunnel syndrome 05/10/2018 [...] Office Visit Family Medicine Ben Cisneros MD [address] [place] [address] [place] [address] 07/12/2023 Nurse Only Ancillary Rubina, Nurse Annual Wellness [address] [place] [address] [place] [address] 07/13/2023 Office Visit Cardiology Brenton Padilla PA-C [address] [place] [address] 11/29/2023 Office Visit Dermatology Dalila Wset PA-C [address] [place] [address] [place] [address] Health Maintenance Due Date Last Done Comments COVID-19 Vaccine (4 - Moderna series) 03/04/2022 01/07/2022, 12/31/2020, 12/03/2020 CKD PHOS USE SMARTSET 65819 05/12/202305/02, 10/05/2020, 04/01/2020, Additional history exists Influenza Vaccine (FLU shot) (#1) 2023 07/08/2022, 06/17/2021, 07/22/2020, Additional history exists Depression Screening, Annual for Pts 12 and Over 07/08/2023 07/08/2022 DTaP,Tdap,and Td Vaccines (2 - Td or Tdap) 10/14/2023 10/14/2013, 07/22/2008 Albumin/Creatinine Ratio 02/15/2024 023, 04/07/2022, 10/05/2020, Additional history exists CKD HGB USE SMARTSET 79377 02/15/202402/14, 04/07/2022, 10/05/2020, Additional history exists Pneumococcal [...] Procedure Name Priority Date/Time Associated Diagnosis Comments PATHOLOGY SCANNED RESULT 03/30/2023 documented in this encounter Results * PATHOLOGY SCANNED RESULT (03/30/2023) 03/30/2023 Ben Cisneros MD PATHOLOGY documented in this encounter Advance Directives Latest Code Status on File Code Status Date Activated Date Inactivated Comments Full Code 06/26/2019 12:28 PM 06/26/2019 5:13 PM This order reflects the patients wishes and were consensually agreed upon. Healthcare Agents on File Name Relationship Healthcare Agent [facility] Communication Susu Quezada Adult Child Health Care Repr esentative (appointed verbally by patient or by statute hierarchy) Care Teams Fabric Cutter Relationship Specialty Start Date End Date Ben Cisneros MD [address] [place] [address] [place] [address] PCP - General Family Medicine 05/09/18 documented as of this encounter
--- OUTSIDE RECORDS SUMMARY | 2023-09-09 22:18 | External Medical Summary | Summary of Care ---
Author Name Unknown Organization [facility] Address [address] [place] [address] Phone [phone] Care Team Providers Care Size Tester Name Role Phone Ben Cisneros MD Primary Care Provider Reason for Visit * Reason Comments Hospital Follow-Up Encounter Details Date Type Department Care Team Description 04/11/2023 Office Visit Family Medicine [address] [place] [phone] Ben Cisneros MD [address] [place], [place] [address] [address] Chronic systolic heart failure (HCC)*; [place] workers pneumoconiosis (HCC); Primary hypertension; Dyslipidemia, goal LDL below 100; Benign hypertension with stage 3b chronic kidney disease (HCC); Gastroesophageal reflux disease without esophagitis; Lung nodules; Chronic kidney disease, stage 3b (HCC); Nocturnal hypoxemia Allergies Active Allergy Reactions Severity Noted Date Comments No Known Drug Allergy 10/12/2000 documented as of this encounter (statuses as of 04/11/2023) Medications Medication Sig Dispensed Refills Start Date [...] top 454 g 0 11/22/2021 Active Saline [place] 0.65 % Nasal Solution ([place]) Administer into nostril 1 [place] as needed for Congestion. 60 mL 5 [...] 100 Tablet 1 03/13/2023 4 Active Ipratropium [place] HFA 17 MCG/ACT Inhalation Aerosol Solution (Atrovent [...] Oral Tablet (Coreg)Indications: Primary hypertension,Diasto lic dysfunction TAKE ONE TABLET BY MOUTH EVERY MORNING AND TAKE ONE TABLET BY MOUTH EVERY DAY BEFORE BEDTIME WITH FOOD. 200 Tablet 1 03/06/2023 4 Active Famotidine 20 [...] the morning. 200 Tablet 1 04/11/2023 Active Furosemide 40 MG Oral Tablet (Lasix)Indications: Chronic systolic heart failure (HCC) TAKE 1 TABLET BY MOUTH IN THE MORNING 100 Tablet 1 02/21/2023 3 Discontinu ed(Medicat ion/Dose Changed) Isosorbide Dinitrate 10 MG Oral Tablet (Isordil) 1 Tablet in the morning and 1 Tablet before bedtime. 0 04/05/2023 3 Discontinu ed(Refill) hydrALAZINE HCl 10 MG Oral Tablet (Apresoline) 1 Tablet in the morning and 1 Tablet in the evening. 0 04/05/2023 3 Discontinu ed(Refill) Torsemide 10 MG Oral Tablet (Demadex) 2 Tablets in the morning. 0 04/05/2023 3 Discontinu ed(Refill) levoFLOXacin 750 MG Oral Tablet (Levaquin) 1 Tablet. 0 04/05/2023 3 Discontinu ed(Medicat ion List Clean Up) documented as of this encounter (statuses as of 04/11/2023) Active Problems Problem Noted Date Hospital discharge follow-up 04/10/2023 Chronic systolic heart failure 3 Interstitial pulmonary disease 3 Pleural effusion due to CHF (congestive heart failure) 04/10/2023 Medical home patient encounter 3 Nocturnal hypoxemia 04/08/2022 Overview: Wears 2 LPM via [place], DME: [facility] Chronic rhinitis 04/08/2022 Lung [...] appointment. GENERAL OSTEOARTHROSIS INSOMNIA W SLEEP APNEA [place] workers pneumoconiosis Restrictive lung disease documented as of this encounter (statuses as of 04/11/2023) Resolved Problems Problem Noted Date Resolved Date [...] Rotator cuff rupture 05/22/2003 05/10/2018 LOC PRIM [id number] 05/22/2003 10/16/19 15 Prepatellar bursitis 05/22/2003 10/16/2014 Inflammation of sacroiliac joint 10/12/2001 10/16/2014 LOC PRIM OSTEOARTH-HAND 10/12/2001 10/16/19 15 Respiratory abnormality 07/31/20 09 Overview: ICD-10 update of inactive term Umbilical hernia 05/10/2018 Insomnia 10/16/2014 Overview: ICD-10 update of inactive term COPD, severity to be determined 07/07/2011 Allergic rhinitis 05/10/2018 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 07/31/20 09 Bilateral carpal tunnel syndrome 05/10/2018 CKD (chronic kidney disease), stage III 12/11/2018 Benign hypertension with CKD (chronic kidney disease) stage III 02/11/2021 Overview: Per CKD protocol documented as of this encounter (statuses as of 04/11/2023) Immunizations Name Administration Dates Next Due COVID-19 [...] Sign Reading Time Taken Comments Blood Pressure 112/68 04/11/2023 11:17 AM EDT Pulse 66 04/11/2023 11:17 AM EDT Temperature 35.8 C (96.5 F) 04/11/2023 11:17 AM E DT Respiratory Rate 16 04/11/2023 11:17 AM EDT Oxygen Saturation 95% 04/11/2023 11:17 AM EDT Inhaled Oxygen Concentration - - Weight 81.3 kg (179 lb 5 oz) 04/11/2023 11:17 AM EDT Height - - Body Mass Index 23.02 04/10/2023 11:24 AM EDT documented in this encounter Progress Notes * Ben Cisneros MD - 04/11/2023 11:24 AM EDT Ned was admitted to [facility] again for respiratory failure on 03/28, treated with solumedrol, ceftriaxone, azithromycin. Discharged 04/05. Lasix changed to torsemide. He is finished his Levaquin. [facility], treated with SoluMedrol, ceftriaxone, azithromycin, culture grew stenotrophomonas maltophilia. He says he used the same O2 tubing for 8 years. No one told him to change. He has now. He was up to 204, so has lost about 20 pounds. Using O2 only at night. He feels washed out. but is not coughing like before. He saw pulmonary yesterday and they are pleased. Cardiology also started isosorbide, and hydralazine. He is happy about the breathing but not the weakness, he likes to be more active. 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 Past Medical History: Diagnosis Date Acute bronchitis due to Rhinovirus 03/06/2023 admitted [facility] Acute respiratory failure (HCC) 03/28/2023 [facility], treated with SoluMedrol, ceftriaxone, azithromycin, culture grew stenotrophomonas maltophilia Allergic rhinitis 11/30/2000 Benign hypertension with CKD (chronic kidney disease) stage III (HCC) Benign neoplasm of colon 02/28/2008 adenomatous/ repeat colonoscopy in 3 yrs Bilateral carpal tunnel syndrome Bronchiectasis (HCC) CKD (chronic kidney disease), stage III ([facility]) [place] workers' pneumoconiosis ([facility]) COPD, mild ([facility]) Degenerative lumbar disc 05/13/2019 L4-5 Essential hypertension with goal blood pressure less than 140/90 Gastroesophageal reflux disease without esophagitis 08/18/2021 Generalized osteoarthritis 10/02/2000 Inflammation of sacroiliac joint (HCC) 10/12/2001 right side Insomnia with sleep apnea 10/02/2000 Interstitial emphysema ([facility]) Osteoarthritis of hand 10/12/2001 right [...] by Mary Carmen Aguayo DO at OR [facility] CLAVICULE FX W/O MANIP 1956 COLONOSCOPY W/ LESION REMOVAL, SNARE 02/28/2008 polyps x 2 removed/adenomatous/repeat in 3 yrs CTA CHEST NON-CORONARY W CONTRAST 02/21/2023 stable interstitial disease, no PE, New trace bilateral pleural effusions. No significant pulmonaryedema. DESTROY LUMBAR SACRAL NERVE IMAGING ADD'L 09/28/2022 DESTROY LUMBAR SACRAL NERVE IMAGING ADD'L performed by Mayo Hernandez DO at OR [facility] DESTROY LUMBAR SACRAL NERVE IMAGING SINGLE 09/28/2022 DESTROY LUMBAR SACRAL NERVE IMAGING SINGLE performed by Mayo Hernandez DO at OR [facility] ECHO EXAM OF HEART (2D ECHO) 04/07/2022 normal LV size and function with mild concentric LVH, EF 60%, grade II diastolic dysfunction ECHO EXAM OF HEART (2D ECHO) 03/28/2023 [place] [address]% mod MR ECHO, COMPLETE (2D), TRANS-THORACIC 02/20/2019 normal LV size and function, EF 65-69%, grade II diastolic dysfunction. 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 INJECT DX/THER SUBSTANCE INTERLAMINAR LUMBAR/SACRAL W IMAGE GUIDE 01/06/2022 INJECTION SPINE LUMBAR OR SACRAL performed by Mayo Hernandez DO at OR [facility] INSERTION OF LENS PROSTHESIS 10/01/2015 right eye -lino L-/S-SPINE PARAVERTEBRAL FACET INJ,1 LEVEL 08/17/2022 L-/S-SPINE PARAVERTEBRAL FACET INJ, 1 LEVEL performed by Mayo Hernandez DO at OR [facility] L-/S-SPINE PARAVERTEBRAL FACET INJ,1 LEVEL 09/14/2022 L-/S-SPINE PARAVERTEBRAL FACET INJ, 1 LEVEL performed by Mayo Hernandez DO at OR [facility] L-/S-SPINE PARAVERTEBRL FACET INJ,2 LEVELS 08/17/2022 L-/S-SPINE PARAVERTEBRAL FACET INJ, 2 LEVELS performed by Mayo Hernandez, DO at OR [facility] L-/S-SPINE PARAVERTEBRL FACET INJ,2 LEVELS 09/14/2022 L-/S-SPINE PARAVERTEBRAL FACET INJ, 2 LEVELS performed by Mayo Hernandez, DO at OR [facility] BLEPHAROPLASTY UPPER EYELID W/EXCESSIVE SKIN Bilateral 08/10/2022 [...] level: Not on file Occupational History 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 60 mL 5 Fluticasone Propionate 50 MCG/ACT Nasal Suspension (Flonase) Administer 2 Sprays into nostril in the morning. Tamsulosin HCl 0.4 MG Oral Capsule (Flomax) [...] CUT OR CHEW 100 Tablet 1 Ipratropium [place] HFA 17 MCG/ACT Inhalation Aerosol Solution (Atrovent Hfa) INHALE TWO PUFFS BY MOUTH FOUR TIMES A DAY - MORNING, NOON, EVENING, AND BEFORE BEDTIME 12.9 g 5 Citalopram Hydrobromide 10 MG Oral Tablet (CeleXA) TAKE ONE TABLET BY MOUTH EVERY MORNING. 100 Tablet 1 Carvedilol 12.5 MG Oral Tablet (Coreg) TAKE ONE TABLET BY MOUTH EVERY MORNING AND TAKE ONE TABLET BY MOUTH EVERY DAY BEFORE BEDTIME WITH FOOD. 200 Tablet 1 Famotidine 20 MG Oral [...] 1 Tablet before bedtime. 200 Tablet 1 Torsemide 10 MG Oral Tablet (Demadex) Take 2 Tablets by mouth in the morning. 200 Tablet 1 ASPIRIN 81 MG PO TABS one tab by mouth daily 0 0 Flutter Device Provided at visit 1 Each 0 No current facility-administered medications for this visit. Immunization History Administered Date(s) Administered COVID-19 mRNA, LNP-s, No Preserve, 2-Dose Series (Moderna) 12/03/2020, 12/31/2020, 01/07/2022 Pneumococcal Conjugate Vacc, 13 Valent (Prevnar) 05/02/2015 Pneumococcal Polysaccharide PPV23 (Pneumovax) 10/08/2002 Seasonal Influenza, Quadrivalent Hd (Fluzone Hd) 06/17/2021, 07/08/2022 Seasonal Influenza, Quadrivalent, No Preserve, 6 Mons & Above, IM 07/13/2017, 06/28/2018 Seasonal Influenza, Quadrivalent, No Preserve, Adjuvanted, 65+ Yrs, IM 07/22/2020 Seasonal Influenza, Quadrivalent, No Preserve, IM 06/29/2015, 06/22/2016 Seasonal Influenza, Split, IIV3, With Preserve, Inj 07/29/2002, 09/19/2003, 07/05/2005, 07/06/2006, 07/17/2007, 07/22/2008, 07/31/2009, 06/22/2010, 06/21/2011, 06/19/2012, 06/18/2013, 06/19/2014 Seasonal Influenza, Trivalent, Adjuvanted, 65+ yrs 06/25/2019 TD, Preservative Free 07/22/2008 TDAP (age 10 and older)(Boostrix) 10/14/2013 Zoster Vaccine Recombinant (Shingrix) 07/05/2021, 10/07/2021 O: Blood pressure 112/68, pulse 66, temperature 35.8 C (96.5 F), temperature source Tympanic, resp. rate 16, weight 81.3 kg (179 lb 5 oz), SpO2 95 %. General appearance: well developed, well nourished and in no acute distress. He has basilar atelectasis. Heart regular without murmur or gallop. No edema today A: Chronic systolic heart failure (HCC) (Primary) - hydrALAZINE HCl 10 MG Oral Tablet (Apresoline); Take 1 Tablet by mouth in the morning and 1 Tablet in the evening. - Isosorbide Dinitrate 10 MG Oral Tablet (Isordil); Take 1 Tablet by mouth in the morning and 1 Tablet before bedtime. - Torsemide 10 MG Oral Tablet (Demadex); Take 2 Tablets by mouth in the morning. [place] workers pneumoconiosis (HCC) Primary hypertension Dyslipidemia, goal LDL below 100 Benign hypertension with stage 3b chronic kidney disease (HCC) Gastroesophageal reflux disease without esophagitis Lung nodules Chronic kidney disease, stage 3b (HCC) Nocturnal hypoxemia Continue other meds as before. Follow-up: Return if symptoms worsen or fail to improve. | Check-out note: Keep June documented in this encounter Nursing Notes * Katharina Cooper LPN - 04/11/2023 11:16 AM EDT [facility] follow up Feeling better documented in this encounter Plan of Treatment Upcoming Encounters Date Type Specialty Care Team Description 04/13/2023 Cardiac Studies Cardiac Studies 06/20/2023 Office Visit Family Medicine Ben Cisneros MD [address] [place] [address] [place] [address] 07/12/2023 Nurse Only Ancillary Siriey, Nurse Annual Wellness [address] [place] [address] [place] [address] 07/13/2023 Office Visit Cardiology Brenton Padilla PA-C [address] [place] [address] 11/29/2023 Office Visit Dermatology Dalila West PA-C [address] [place] [address] [place] [address] Health Maintenance Due Date Last Done Comments COVID-19 Vaccine (4 - Moderna series) 03/04/2022 01/07/2022, 12/31/2020, 12/03/2020 CKD PHOS USE SMARTSET 45645 05/12/202305/02, 10/05/2020, 04/01/2020, Additional history exists Influenza Vaccine (FLU shot) (#1) 2023 07/08/2022, 06/17/2021, 07/22/2020, Additional history exists Depression Screening, Annual for Pts 12 and Over 07/08/2023 07/08/2022 DTaP,Tdap,and Td Vaccines (2 - Td or Tdap) 10/14/2023 10/14/2013, 07/22/2008 Albumin/Creatinine Ratio 02/15/2024 023, 04/07/2022, 10/05/2020, Additional history exists CKD HGB USE SMARTSET 69841 02/15/202402/14, 04/07/2022, 10/05/2020, Additional history exists Pneumococcal [...] failure (HCC)- Primary Chronic systolic heart failure [place] workers pneumoconiosis (HCC) [place] workers' pneumoconiosis Primary hypertension Unspecified essential hypertension Dyslipidemia, goal LDL below 100 Other and unspecified hyperlipidemia 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 Care Teams Size Tester Relationship Specialty Start Date End Date Ben Cisneros MD [address] [place] [address] [place] [address] PCP - General Family Medicine 05/09/18 documented as of this encounter"
--- OUTSIDE RECORDS SUMMARY | 2023-09-09 22:18 | External Medical Summary | Summary of Care ---
Author Name Unknown Organization [facility] Address [address] [place] [address] Phone [phone] Care Team Providers Care Controls Design Engineer Name Role Phone Ben Cisneros MD Primary Care Provider Reason for Visit * Reason Comments Follow Up [place] pneumoc oniosis RLD Lung Nodule Encounter Details Date Type Department Care Team Description 04/10/2023 Office Visit Pulmonary Medicine, [facility] [address] [facility] [place] [address] Arlene Gilliam CRNP [address] [facility] [address] [place] [employer] pneumoconiosis (HCC)*; Restrictive lung disease; Nocturnal hypoxemia; Chronic kidney disease, stage 3b (HCC); Chronic systolic heart failure (HCC); Hospital discharge follow-up; Bronchiectasis without complication (HCC); Interstitial pulmonary disease (HCC); Pleural effusion due to CHF (congestive heart failure) (HCC) Allergies Active Allergy Reactions Severity Noted [...] top 454 g 0 11/22/2021 Active Saline [place] 0.65 % Nasal Solution (Lea) Administer into nostril 1 [place] as needed for Congestion. 60 mL 5 [...] 100 Tablet 1 03/13/2023 4 Active Ipratropium [place] HFA 17 MCG/ACT Inhalation Aerosol Solution (Atrovent Hfa)Indications:[place] [employer] pneumoconiosis (HCC) INHALE TWO PUFFS BY [...] of 04/10/2023) Active Problems Problem Noted Date Hospital discharge follow-up 04/10/2023 Chronic systolic heart failure 3 Interstitial pulmonary disease 3 Pleural effusion due to CHF (congestive heart failure) 04/10/2023 Medical home patient encounter 3 Nocturnal hypoxemia 04/08/2022 Overview: Wears 2 LPM via [place], DME: [facility] Chronic rhinitis 04/08/2022 Lung [...] appointment. 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 07/31/20 09 Bilateral carpal tunnel syndrome [...] Sign Reading Time Taken Comments Blood Pressure 122/58 04/10/2023 11:24 AM EDT Pulse 70 04/10/2023 11:24 AM EDT Temperature 35.8 C (96.4 F) 04/10/2023 11:24 AM E DT Respiratory Rate 16 04/10/2023 11:24 AM EDT Oxygen Saturation 99% 04/10/2023 11:24 AM EDT Inhaled Oxygen Concentration - - Weight 82.1 kg (181 lb) 04/10/2023 11:24 AM EDT Height 188 cm (6' 2") 04/10/2023 11:24 AM EDT Body Mass Index 23.24 04/10/2023 11:24 AM EDT documented in this encounter Progress Notes * DAV Olivera - 04/10/2023 11:44 AM EDT FOLLOW UP PULMONARY OUTPATIENT CONSULTATION NOTE Dear Ben Cisneros MD I had the pleasure of seeing Ned Elliott in our pulmonary outpatient clinic today. History of Present Illness: Ned Elliott is a 87 year old male presenting hospital follow up. He was admitted to [facility] 03/06/2023-03/09/2023 with symptoms of worsening UBTT, orthopnea and edema for acute respiratory failure secondary to acute on chronic CHF exacerbation. Also with bilateral pleural effusions. ?pneumonia Also with acute bronchitis secondary to rhinovirus. He was treated with IV lasix. He was readmitted at [facility] 03/28/2023-04/05/2023 for acute respiratory distress, increased bilateral pleural effusions drained 3L. He has since changed oxygen tubing he feels no longer has pneumonia. CT chest showing innumerable nodules within the lungs which were present on initial CT Jul 2017. Echo showing EF 25-30%, large wall segment abnormality with mid level and apical segments of left ventricle severely hypokinetic to akinetic, moderate aortic valve sclerosis. Mild to moderate mitral regurg. Interim History: Using albuterol 3 times daily. Usint atrovent and albuterol No recent flare- No antibiotics or prednisone. Last hospitalization 03/29/23-04/05/2023 for Changed to torsemide Adding hydralazine 10 mg po bid Added isosorbide 10 mg bid For pneumonia- dishcarged home on levaquin every other day until April 11. Respiratory Symptoms: Cough: resolved Sputum: a little Dyspnea:improved significantly Hemoptysis: DENIES Wheeze: DENIES Triggers: EXERTION, HUMIDITY Orthopnea: RESOLVED Oxygen: 3lpm WITH ALL SLEEP CPAP/BIPAP use:DENIES GERD symptoms TAKING PEPCID DAILY Sinus Symptoms: DENIES Tobacco use: Social History Tobacco Use Smoking Status Former Packs/day: 0.25 Years: 5.00 Pack years: 1.25 Types: Cigarettes Quit date: 05/19/1960 Years since quittin.9 Smokeless Tobacco Never PMH: Patient Active Problem List Diagnosis Code GENERAL OSTEOARTHROSIS M15.9 INSOMNIA W SLEEP APNEA G47.00, G47.30 [place] [employer] pneumoconiosis (HCC) J60 ADVANCE DIRECTIVE INFORMATION Hx of nonmelanoma skin cancer Z85.828 Primary hypertension I10 Restrictive lung disease J98.4 History of prostate cancer Z85.46 Degenerative lumbar disc M51.36 Dyslipidemia, goal LDL below 100 E78.5 Benign hypertension with stage 3b chronic kidney disease (HCC) I12.9, N18.32 Chronic kidney disease, stage 3b (HCC) N18.32 Gastroesophageal reflux disease without esophagitis K21.9 Nocturnal hypoxemia G47.34 Chronic rhinitis J31.0 Lung nodules R91.8 History of tobacco use Z87.891 Medical home patient encounter Z00.8 Current Outpatient Medications Medication Sig Dispense Refill [...] cream on top 454 g 0 Saline [place] 0.65 % Nasal Solution (Lea) Administer into nostril 1 [place] as needed for Congestion. 60 mL 5 [...] CUT OR CHEW 100 Tablet 1 Ipratropium [place] HFA 17 MCG/ACT Inhalation Aerosol Solution (Atrovent [...] BEFORE BEDTIME WITH FOOD. 200 Tablet 1 Furosemide 40 MG Oral Tablet (Lasix) TAKE 1 TABLET BY MOUTH IN THE MORNING 100 Tablet 1 Famotidine 20 MG Oral Tablet (Pepcid) Take 1 Tablet by mouth in the morning. 90 Tablet 3 No current facility-administered medications for this visit. Review of patient's allergies indicates: Allergen Reactions No Known Drug Allergy Past Surgical History: Procedure Laterality Date ANESTHESIA, UPPERARM TENDON SURGERY left elbow tendon repair BIOPSY OF PROSTATE 11/03/2014 CAROTID DUPLEX EXAMINATION Bilateral 04/11/2022 50-69% bilateral ICA stenosis, could be higher due to calcified plaque CARPAL TUNNEL SURGERY Right 08/16/2017 Dr Renner CARPAL TUNNEL SURGERY Left 06/26/2019 NEUROPLASTY MEDIAN NERVE AT CARPAL TUNNEL performed by Mary Carmen Aguayo DO at OR [facility] OTIS FX W/O MANIP 1956 COLONOSCOPY W/ LESION REMOVAL, SNARE 02/28/2008 polyps x 2 removed/adenomatous/repeat in 3 yrs CTA CHEST NON-CORONARY W CONTRAST 02/21/2023 stable interstitial disease, no PE, New trace bilateral pleural effusions. No significant pulmonaryedema. DESTROY LUMBAR SACRAL NERVE IMAGING ADD'L 09/28/2022 DESTROY LUMBAR SACRAL NERVE IMAGING ADD'L performed by Mayo Hernandez, at OR [facility] DESTROY LUMBAR SACRAL NERVE IMAGING SINGLE 09/28/2022 DESTROY LUMBAR SACRAL NERVE IMAGING SINGLE performed by Mayo Hernandez, at OR [facility] ECHO EXAM OF HEART (2D ECHO) 04/07/2022 normal LV size and function with mild concentric LVH, EF 60%, grade II diastolic dysfunction ECHO, COMPLETE (2D), TRANS-THORACIC 02/20/2019 normal LV size and function, EF 65-69%, grade II diastolic dysfunction. 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 INJECT DX/THER SUBSTANCE INTERLAMINAR LUMBAR/SACRAL W IMAGE GUIDE 01/06/2022 INJECTION SPINE LUMBAR OR SACRAL performed by Mayo Hernandez DO at OR [facility] INSERTION OF LENS PROSTHESIS 10/01/2015 right eye -lino L-/S-SPINE PARAVERTEBRAL FACET INJ,1 LEVEL 08/17/2022 L-/S-SPINE PARAVERTEBRAL FACET INJ, 1 LEVEL performed by Mayo Hernandez DO at OR [facility] L-/S-SPINE PARAVERTEBRAL FACET INJ,1 LEVEL 09/14/2022 L-/S-SPINE PARAVERTEBRAL FACET INJ, 1 LEVEL performed by Mayo Hernandez DO at OR [facility] L-/S-SPINE PARAVERTEBRL FACET INJ,2 LEVELS 08/17/2022 L-/S-SPINE PARAVERTEBRAL FACET INJ, 2 LEVELS performed by Mayo Hernandez DO at OR [facility] L-/S-SPINE PARAVERTEBRL FACET INJ,2 LEVELS 09/14/2022 L-/S-SPINE PARAVERTEBRAL FACET INJ, 2 LEVELS performed by Mayo Bossman Hernandez DO at OR [facility] NE BLEPHAROPLASTY UPPER EYELID W/EXCESSIVE SKIN Bilateral 08/10/2022 Dr. Alves-Blephroplasty with levator REMOVAL OF APPENDIX 10/02/1982 Appendectomy REMOVE CATARACT, INSERT LENS PROSTH Left 04/05/2018 Dr Burks SPIROMETRY B/A BRONCHODILATOR 05/19/2017 restrictive pattern referral suggested Review of Systems: Review of Systems Constitutional: Positive for fatigue. Respiratory: Positive for shortness of breath. Negative for cough, chest tightness and wheezing. Cardiovascular: Negative for chest pain, palpitations and leg swelling. Neurological: Negative for dizziness. Psychiatric/Behavioral: Negative for sleep disturbance. Physical Exam: BP 122/58 | Pulse 70 | Temp 35.8 C (96.4 F) (Tympanic) | Resp 16 | Ht 1.88 m (6' 2") | Wt 82.1 kg (181 lb) | SpO2 99% | BMI 23.24 kg/m | BSA 2.07 m Physical Exam HENT: Head: Normocephalic. Cardiovascular: Rate and Rhythm: Normal rate and regular rhythm. Pulmonary: Effort: Pulmonary effort is normal. Breath sounds: Decreased breath sounds present. Neurological: Mental Status: He is alert and oriented to person, place, and time. Psychiatric: Attention and Perception: Attention normal. Mood and Affect: Mood normal. Speech: Speech normal. Behavior: Behavior normal. Behavior is cooperative. Thought Content: Thought content normal. Cognition and Memory: Cognition and memory normal. Judgment: Judgment normal. Assessment and Plan: 1. [place] [employer] pneumoconiosis (HCC) S/p hospitalization x 2 ? Pneumonia on CT S/p treatment with levaquin Recheck x ray in 4-6 weeks - XR CHEST 2 VIEWS; Future Continue albuterol prn Continue atrovent prn 2. Restrictive lung disease - XR CHEST 2 VIEWS; Future 3. Nocturnal hypoxemia Continue 2-3lpm q hs 4. Chronic kidney disease, stage 3b ([facility]) 5. Chronic systolic heart failure ([facility]) EF 25-30% Follow up scheduled with cardiology Continue torsemide Continue hydralazine 10 mg po bid Continue isosorbide 10 mg po bid 6. Hospital discharge follow-up 7. Bronchiectasis without complication ([facility]) Continue albuterol Continue flutter Sputum culture grew stenotrophomonas maltophilia sensitive to levaquin 9. Pleural effusion due to CHF (congestive heart failure) ([facility]) S/p thoracentesis on 03/30/2023 I have advised the patient to call our office incase of any worsening or new symptoms. I spent a total of Greater than 55 mins (exact time 55 mins) on the date of service in preparation,delivery, and documentation of the care provided to Ned Elliott excluding any time spent in the performance of separately billed services. Karla, MSN, SOLO MUSICIAN [facility] Pulmonary and Sleep Medicine documented in this encounter Nursing Notes * Belle Chávez LPN - 04/10/2023 11:29 AM EDT Chief Complaint Patient presents with Follow Up [place] [employer] pneumoconiosis RLD Lung Nodule Interm History/Respiratory Symptoms Cough: no Hemoptysis: no Sinus Symptoms: occ PND Hospitalizations: 03/28-04/05 ED Trips: 03/28-04/05 Triggers: no Nocturnal: no CPAP/BiPAP/O2: O2 @ 2lpm MMRC Dyspnea Scale = 1 (I get short of breath when hurrying on level ground or walking up a slight hill) documented in this encounter Plan of Treatment Upcoming Encounters Date Type Specialty Care Team Description 04/11/2023 Office Visit Family Medicine Ben Cisneros MD [address] [place] [address] [place] [id number] 04/13/2023 Cardiac Studies Cardiac Studies 06/20/2023 Office Visit Family Medicine Ben Cisneros MD [address] [place] [address] [place] [phone] 07/12/2023 Nurse Only Ancillary Siriey, Nurse Annual Wellness [address] [place] [address] [place] [phone] 07/13/2023 Office Visit Cardiology Brenton Padilla PA-C [address] [place] [address] 11/29/2023 Office Visit Dermatology Dailla West PA-C [address] [place] [address] [place] [phone] Scheduled Orders Name Type Priority Associated Diagnoses Orde r Schedule XR CHEST 2 VIEWS Medical Imaging Routine [place] [employer] pneumoconiosis (HCC) Restrictive lung disease Expected: 05/11/2023, Expires: 05/11/2024 Health Maintenance Due Date Last Done Comments COVID-19 Vaccine (4 - Moderna series) 03/04/2022 01/07/2022, 12/31/2020, 12/03/2020 CKD PHOS USE SMARTSET 02281 05/12/202305/02, 10/05/2020, 04/01/2020, Additional history exists Influenza Vaccine (FLU shot) (#1) 2023 07/08/2022, 06/17/2021, 07/22/2020, Additional history exists Depression Screening, Annual for Pts 12 and Over 07/08/2023 07/08/2022 DTaP,Tdap,and Td Vaccines (2 - Td or Tdap) 10/14/2023 10/14/2013, 07/22/2008 Albumin/Creatinine Ratio 02/15/2024 023, 04/07/2022, 10/05/2020, Additional history exists CKD HGB USE SMARTSET 36288 02/15/202402/14, 04/07/2022, 10/05/2020, Additional history exists Pneumococcal [...] as of this encounter Visit Diagnoses Diagnosis [place] [employer] pneumoconiosis (HCC)- Primary [place] [employer]' pneumoconiosis Restrictive lung disease Other diseases of lung, not elsewhere classified Nocturnal hypoxemia Hypoxemia Chronic kidney disease, stage 3b (HCC) Chronic systolic heart failure (HCC) Chronic systolic heart failure Hospital discharge follow-up Other follow-up examination Bronchiectasis without complication (HCC) Bronchiectasis without acute exacerbation Interstitial pulmonary disease (HCC) Postinflammatory pulmonary fibrosis Pleural effusion due to CHF (congestive heart failure) (HCC) Congestive heart failure, unspecified documented in this encounter Advance Directives Latest Code Status on File Code Status Date Activated Date Inactivated Comments Full Code 06/26/2019 12:28 PM 06/26/2019 5:13 PM This order reflects the patients wishes and were consensually agreed upon. Care Teams Controls Design Engineer Relationship Specialty Start Date End Date Ben Cisneros MD [address] [place] [address] [place] [address] PCP - General Family Medicine 05/09/18 documented as of this encounter
--- OUTSIDE RECORDS SUMMARY | 2023-09-09 22:18 | External Medical Summary | Summary of Care ---
Author Name Unknown Organization [facility] Address [address] [place] [address] Phone [phone] Care Team Providers Care Cycle Director Name Role Phone Ben Cisneros MD Primary Care Provider Encounter Details Date Type Department Care Team Description 04/17/2023 Throw Out ClerkStone Circular Sawyer Medicine [address] [id number] Jeanie Estrada, RN [address] [place], [place] [id number] Medical home patient encounter*; Hospital discharge follow-up; Chronic systolic heart failure (HCC); Pneumonia; Restrictive lung disease; [place] [employer] pneumoconiosis (HCC); Bilateral pleural effusion; Advanced [...] summer., Informant: Patient, Reported on 04/17/2023 Saline [place] 0.65 % Nasal Solution ([place]) Administer into nostril 1 [place] as needed for Congestion. 60 mL 5 [...] 100 Tablet 1 03/13/2023 4 Active Ipratropium [place] HFA 17 MCG/ACT Inhalation Aerosol Solution (Atrovent Hfa)Indications:[place] [employer] pneumoconiosis (HCC) INHALE TWO PUFFS BY [...] Overview: Wears 2 LPM via [place], DME: [facility] [facility] Chronic rhinitis 04/08/2022 [...] appointment. 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 Verified patient name/. Advised patient that call is beingrecorded for quality and training purposes. Assessment: Pt. noted the following: alert, oriented, pleasant. Reports overall condition as "pretty good". [facility] Family very supportive, reports almost [...] to speak for himself. He had an commercial real estate attorney draw themup years ago. He is willing to bring to his June appointment so the living will and DMPOA can be scanned into his chart. Agreeable to post discharge IVR calls. Did you receive an alert for an annual wellness visit? No Is this call for a hospital, halfway or rehab facility discharge to home? Yes - patient was inpatient at [facility] from 03/28/23 to 04/05/23. Discharge dx: respiratory [...] 3: falls or injury and Referral to: [facility] for home visit, home safety assessment, bottles [...] and financial completed - done by an commercial real estate attorney. Names his daughter, Susu Mak, as [...] and financial completed - done by an commercial real estate attorney. Names his daughter, Susu Mak, as [...] discussed? No 04/17/2023 No Source: Content from [employer] Aligning Care With What Matters Most: No data to display Rationale for Decisions Source: Content from [employer] 0 minutes spent in direct [id number] discussion today, Jeanie Estrada RN documented in this encounter Plan of Treatment Upcoming Encounters Date Type Specialty Care Team Description 06/20/2023 Office Visit Family Medicine Ben Cisneros MD [address] [place] [address] [place] [phone] 07/12/2023 Nurse Only Ancillary Rubina Nurse Annual [address] [place] [address] 07/13/2023 Office Visit Cardiology Brenton Padilla PA-C [address] [place] [address] 11/29/2023 Office Visit Dermatology Dalila West PA-C [address] [place] [address] [place] [address] Health Maintenance Due Date Last Done Comments COVID-19 Vaccine (4 - Moderna series) 03/04/2022 01/07/2022, 12/31/2020, 12/03/2020 CKD PHOS USE SMARTSET 94113 05/12/202305/02, 10/05/2020, 04/01/2020, Additional history exists Influenza Vaccine (FLU shot) (#1) 2023 07/08/2022, 06/17/2021, 07/22/2020, Additional history exists Depression Screening, Annual for Pts 12 and Over 07/08/2023 07/08/2022 DTaP,Tdap,and Td Vaccines (2 - Td or Tdap) 10/14/2023 10/14/2013, 07/22/2008 Albumin/Creatinine Ratio 02/15/2024 023, 04/07/2022, 10/05/2020, Additional history exists CKD HGB USE SMARTSET 72844 02/15/202402/14, 04/07/2022, 10/05/2020, Additional history exists Pneumococcal [...] Other diseases of lung, not elsewhere classified [place] [employer] pneumoconiosis (HCC) [place] workers' pneumoconiosis Bilateral pleural effusion Unspecified pleural [...] Relationship Healthcare Agent [facility] p Communication Susu Quezada Adult Child Health Care Repr esentative (appointed verbally by patient or by statute hierarchy) Care Teams Cycle Director Relationship Specialty Start Date End Date Ben Cisneros MD [address] [place] [address] [place] [phone] PCP - General Family Medicine 05/09/18 documented as of this encounter
--- NOTE | 2023-09-09 22:23 | Emergency Department Note ---
Impression & Plan Pulmonary edema, Chest pain, Abnormal EKG, Elevated troponin I level ED Provider Note NAME: JONAH PENA AGE: 88 SEX: M : 1935 ARRIVES VIA: Ambulance INFORMANT: Patient, EMS personnel ED PROVIDER(S): Rodney Higginbotham DO CHIEF COMPLAINT: Chest pain HPI: The patient is an 88-year-old male who presented to the emergency department for an evaluation of chest pain. The patient describes anterior chest pain that he describes a pressure. He has been noticing over the last few days he has been having shortness of breath with exertion. He has to go downstairs to do his laundry and noticed he was starting to have shortness of breath and chest pain with going up and down stairs. He has noticed that his legs been starting to swell. He notices right leg swelling greater than left but this is not new for him. He notices this when he has CHF symptoms. The patient called 911 this evening. He was noted to be hypoxic with a pulse ox of 84% prior to arrival. He was treated with aspirin as well as nitroglycerin therapy. His pressure initially did drop. He was treated with a very small fluid bolus. Blood pressure augmented and the patient was feeling much better. He states that this time his chest pressure is almost completely gone. He denies having any fever or cough. He recently did have COVID-19 infection. ROS: See above HPI for pertinent positives & negatives. A total of 10 systems reviewed and were otherwise negative. PAST MEDICAL HISTORY: See Below PAST SURGICAL HISTORY: See Below FAMILY HISTORY: See Below SOCIAL HISTORY: See Below HOME MEDICATIONS: See Below ALLERGIES: See Below VITALS: See Below PHYSICAL EXAMINATION: GENERAL: Patient is awake alert in no acute distress patient is resting comfortably and showing no signs of anxiety EYES: The conjunctivae are clear. The pupils are round and reactive. EARS, NOSE, MOUTH AND THROAT: The nose is without any evidence of any deformity. NECK: The neck is nontender and supple. RESPIRATORY: Diminished breath sounds are noted throughout right greater than left. There is rales at the left base. There is mild conversational dyspnea appreciated. CARDIOVASCULAR: Regular rate and rhythm noted there no murmurs rubs or gallops normal S1 normal S2. GASTROINTESTINAL: The abdomen is soft. Abdomen is nontender. MUSCULOSKELETAL/EXTREMITIES: There is no evidence of gross deformity full range of motion is noted in the hips and shoulders. SKIN: The skin is warm and dry. Trace pedal edema was noted bilaterally right greater than left. NEUROLOGIC: Patient is awake alert and oriented x3. MEDICAL DECISION MAKING: The patient is an 88-year-old male who has a history of CHF who presented to the emergency department for an evaluation of chest pain and difficulty breathing. The patient's history and physical exam appear to be consistent with CHF and pulmonary edema. He was treated with aspirin and nitroglycerin prior to arrival. His pain was significantly improved. The patient presented with an EKG that was consistent with inferior and low lateral ischemia. A similar tracing was noted from April of this year. I discussed the patient's condition with him. He was further treated with Lasix in the emergency department. I discussed his condition with the on-call [facility] hospitalist. I do feel the patient would benefit from inpatient management as well as possible further cardiac workup. They have agreed to evaluate the patient in the emergency department for further management and disposition. Triage Nursing notes reviewed. Prior medical records reviewed Vital Signs: reviewed and remarkable for no significant abnormalities Differential diagnosis: Cardiac ischemia, aortic dissection, pulmonary embolism, pneumothorax, pneumonia, pericarditis, myocarditis, esophageal rupture, GERD, cholecystitis, pancreatitis, musculoskeletal, as well as other pathologies. ER treatment provided: See below Diagnostics interpreted by me: ECG: EKG was obtained in the emergency department. My interpretation is sinus rhythm at 73 bpm. There is no PVCs noted. A incomplete left bundle branch block pattern is favored. There is ST segment depression noted in the inferior and low lateral leads. This was compared to a tracing from April 04, 2023. The ischemia noted in the inferior leads is new otherwise there were no significant changes noted. Prehospital EKG was evaluated. My interpretation is normal sinus rhythm at 73 bpm. There is no ectopy noted. Similar ST segment abnormalities were noted compared to the tracing obtained upon arrival in the emergency department A second EKG was obtained in the emergency department. The patient developed chest pain. My interpretation is sinus rhythm at [address] bpm[address] Persistence of the ST depressions was noted in the inferior and low lateral leads. This compares similar to the initial EKG obtained in the emergency department Cardiac Monitoring: An order was placed for continuous cardiac monitoring. The monitor shows a rate of 71 bpm with sinus rhythm. Laboratory studies: As stated above and show below. Imaging studies: See below. Radiographic imaging was reviewed by myself Consultation(s): I discussed this case with Dr. Torres who is on-call for the [facility] hospitalist group. ED COURSE: Procedures: none Critical Care: None Past Med/Surg History Medical History Bilateral pleural effusion Dyspnea on exertion HFrEF (heart failure with reduced ejection fraction) History of prostate cancer s/p XRT with brachy boost CKD (chronic kidney disease), stage III HTN (hypertension) Restrictive lung disease 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, coal, workers' Prostate cancer (11/03/14) "Rising PSA to 7.46 Status post ultrasound-guided biopsies revealing adenocarcinoma [place] 4+3, biopsy stage T2c Initiation of hormone suppression prior to prostate seed implant, short course Status post prostate seed implant 02/03/2015 with cesium 131 received 8500 cGy 50 seeds placed Status post completion of IMRT/IGRT 04/28/2015 received 4500 cGy " On 05/26/15 14:44 Shira Goldberg wrote "Rising PSA to 7.46 Status post ultrasound-guided biopsies revealing adenocarcinoma [place] 4+3, biopsy stage T2c Initiation of hormone suppression prior to prostate seed implant Status post prostate seed implant 02/03/2015 with cesium 131 received 8500 cGy 50 seeds placed Status post completion of IMRT/IGRT 04/28/2015 received 4500 cGy " On 05/01/15 12:43 Sandra Marquez wrote "Rising PSA to 7.46 Status post ultrasound-guided biopsies revealing adenocarcinoma [place] 4+3, biopsy stage T2c Initiation of hormone suppression Status post prostate seed implant 02/03/2015 with cesium 131 received 8500 cGy 50 seeds placed Status post completion of IMRT/IGRT 04/28/2015 received 4500 cGy " On 03/17/15 15:55 Sandra Marquez wrote "Rising PSA to 7.46 Status post ultrasound-guided biopsies revealing adenocarcinoma [place] 4+3, biopsy stage T2c Initiation of hormone suppression Status post prostate seed implant 02/03/2015 with cesium 131 received 8500 cGy 50 seeds placed Now for completion of IMRT/IGRT" Surgical History History of appendectomy H/O shoulder surgery Social History Smoking Status: Former smoker Tobacco Type: Cigarettes Second Hand Exposure: No; Do You Dip or Chew Tobacco: No; Hx Alcohol Use: No Hx Substance Use: No Preferred Language: Maltese Communication Ability: Effective Accounts Clerk Required: No Beliefs That Will Affect Care: None marital status: / Current Living Situation: Alone Feels Safe at Home: Yes Assistive Devices: Cane and Walker Allergies Allergies Allergy/AdvReac Type Severity Reaction Status Date / Time No Known Allergies Allergy Verified 09/09/23 23:18 Home Meds Home Medications Medication Instructions Recorded Confirmed aspirin 81 mg tablet,delayed 81 mg PO DAILY 05/21/19 09/09/23 release tamsulosin 0.4 mg capsule 0.4 mg PO BID 05/21/19 09/09/23 triamcinolone acetonide 0.1 % 1 applic topical BID PRN Skin 05/21/19 09/09/23 topical ointment Irritation multivitamin-ferrous 1 tab PO DAILY 05/22/19 09/09/23 fumarate-folic acid 18 mg-400 mcg tablet (Centrum Complete) carvedilol 12.5 mg tablet 12.5 mg PO BID 05/26/20 09/09/23 citalopram 10 mg tablet 10 mg PO QAM 03/06/23 09/09/23 cyanocobalamin (vitamin B-12) 100 100 mcg PO QAM 03/06/23 09/09/23 mcg tablet (Vitamin B-12) famotidine 20 mg tablet 20 mg PO QAM 03/06/23 09/09/23 guaifenesin 600 mg tablet, 600 mg PO Q12H PRN Cough 03/06/23 09/09/23 extended release 12 hr ipratropium bromide 17 2 puff inhalation QID 03/06/23 09/09/23 mcg/actuation HFA aerosol inhaler (Atrovent HFA) pantoprazole 20 mg tablet,delayed 20 mg PO DAILYBB 03/06/23 09/09/23 release sodium chloride 0.65 % nasal spray 1 spray intranasal BID PRN NASAL 03/06/23 09/09/23 aerosol (Saline Nasal) DRYNESS empagliflozin 10 mg tablet 10 mg PO QAM 09/09/23 09/09/23 (Jardiance) fluticasone propionate 50 2 sprays intranasal QAM 09/09/23 09/09/23 mcg/actuation nasal spray,suspension hydralazine 10 mg tablet 10 mg PO AMPM 09/09/23 09/09/23 isosorbide dinitrate 10 mg tablet 10 mg PO AMHS 09/09/23 09/09/23 lisinopril 2.5 mg tablet 2.5 mg PO DAILY 09/09/23 09/09/23 rosuvastatin 10 mg tablet 10 mg PO HS 09/09/23 09/09/23 torsemide 100 mg tablet 50 mg PO QAM 09/09/23 09/09/23 Results & Data (ED) Vital Signs Vital Signs - 24 hr 09/09/23 22:16 09/09/23 22:16 09/09/23 22:16 Temperature 36.9 C Temperature Source Oral Pulse Rate 75 72 Pulse Rate [Apical] Respiratory Rate 24 22 Respiratory Effort / Characteristics Respiratory Depth Respiratory Pattern Blood Pressure 110/60 Blood Pressure [Right Arm] Blood Pressure Mean 76 Blood Pressure Mean [Right Arm] Pulse Oximetry 96 96 96 Oxygen Delivery Method Room Air Room Air Room Air Sepsis Recent Fever Within 48 Hours No Sepsis New/Unexplained Change in Mental Status N/A Sepsis Action Taken by Nursing No Action Required 09/09/23 22:16 09/09/23 22:33 09/09/23 22:55 Temperature 36.9 C Temperature Source Oral Pulse Rate 72 Pulse Rate [Apical] 74 71 Respiratory Rate 22 22 Respiratory Effort / Characteristics Non-Labored Respiratory Depth Normal Respiratory Pattern Regular Blood Pressure Blood Pressure [Right Arm] 110/60 122/70 Blood Pressure Mean Blood Pressure Mean [Right Arm] 76 87 Pulse Oximetry 96 97 Oxygen Delivery Method Room Air Sepsis Recent Fever Within 48 Hours Sepsis New/Unexplained Change in Mental Status Sepsis Action Taken by [facility] Medications Current Medication List: was personally reviewed by me Laboratory Data Attestation: I reviewed the patient's lab results. 09/09/23 22:20 09/09/23 22:20 Lab Results 09/09/23 Range/Units 22:20 WBC 10.36 (4.8-10.8) K/ul RBC 3.71 L (4.70-6.10) M/uL Hgb 10.9 L (14.0-18.0) g/dl Hct 32.9 L (42.0-52.0) % MCV 88.7 (80.0-100.0) fL MCH 29.4 (25.0-34.0) pg MCHC 33.1 (32.0-36.0) g/dL RDW Std Deviation 46.2 (36.4-46.3) fL RDW Coeff of Nehemias 14.3 (11.5-14.5) % Plt Count 215 (130-400) K/uL MPV 10.7 (9.4-12.4) fL Immature Gran % (Auto) 0.4 % Neut % (Auto) 74.6 % Lymph % (Auto) 9.5 % Christian % (Auto) 12.1 % Eos % (Auto) 2.3 % Baso % (Auto) 1.1 % Neut # (Auto) 7.74 H (1.40-6.50) K/uL Lymph # (Auto) 0.98 L (1.20-3.40) K/uL Christian # (Auto) 1.25 H (0.11-0.59) K/uL Eos # (Auto) 0.24 (0.00-0.50) K/uL Baso # (Auto) 0.11 (0.00-0.20) K/uL Immature Gran # (Auto) 0.04 (0.01-0.20) K/uL Sodium 133 L (136-145) mmol/L Potassium 4.5 (3.5-5.1) mmol/L Chloride 95 L (98-107) mmol/L Carbon Dioxide 27 (21-32) mmol/L Anion Gap 11 (3-11) BUN 66 H (6-23) mg/dl Creatinine 2.80 H (0.6-1.4) mg/dl Est Cr Clr Drug Dosing 21.2 ml/min Est GFR ( Amer) 22.3 ml/min Est GFR (Non-Af Amer) 19.3 ml/min BUN/Creatinine Ratio 23.6 H (10-20) Glucose 151 H (70-99(Fasting)) mg/dl Calcium 9.7 (8.6-10.3) mg/dl Total Bilirubin 0.6 (0.2-1.0) mg/dl AST 23 (13-39) U/L ALT 11 (7-52) U/L Alkaline Phosphatase 59 (34-104) U/L B-Natriuretic Peptide 754 H (0-100) pg/ml Total Protein 7.5 (6.0-8.3) gm/dl Albumin 3.8 (3.4-5.0) gm/dl Globulin 3.7 (2.5-4.0) gm/dl Albumin/Globulin Ratio 1.0 (0.9-2) Lipase 41 (11-82) U/L Administered Medications Discontinued Medications Furosemide (Furosemide 40 Mg/4 Ml Vial) 40 mg IV ONE ONE Stop: 09/09/23 22:45 Last Admin: 09/09/23 22:55 Dose: 40 mg Documented By: NICOLAS Imaging Data Attestation: I personally reviewed and interpreted this imaging study as follows: My Impression: 1 view chest x-ray was obtained in the emergency department. My interpretation is pulmonary edema with bilateral pleural effusion right greater than left. There is no free air, this was compared to a chest x-ray from April 04, 2023. There was slight improvement compared to the previous chest x-ray. Final report pending. Discharge Plan Visit Data Chief Complaint: Shortness of Breath/Dyspnea Stated Complaint: sob, diminished lung sounds bi-lateral, chest pain ED Provider: Rodney Higginbotham Discharge Problem: Pulmonary edema, Chest pain, Abnormal EKG, Elevated troponin I level Patient Disposition: Being Evaluated by Hospitalist Forms Stand Alone Forms: [facility] Prescriptions Prescriptions: No Action triamcinolone acetonide 0.1 % ointment 1 applic topical BID PRN (Reason: Skin Irritation) tamsulosin 0.4 mg capsule 0.4 mg PO BID aspirin 81 mg tablet,delayed release (DR/EC) 81 mg PO DAILY Centrum Complete 18-400 mg-mcg tablet 1 tab PO DAILY carvedilol 12.5 mg tablet 12.5 mg PO BID cyanocobalamin (vitamin B-12) [Vitamin B-12] 100 mcg Tablet 100 mcg PO QAM citalopram 10 mg tablet 10 mg PO QAM pantoprazole 20 mg tablet,delayed release (DR/EC) 20 mg PO DAILYBB famotidine 20 mg Tablet 20 mg PO QAM Saline Nasal 0.65 % Aerosol,[place] 1 spray INTRANASAL BID PRN (Reason: NASAL DRYNESS) Atrovent HFA 17 mcg/actuation Hfa Aerosol Inhaler 2 puff INHALATION QID guaifenesin 600 mg Tablet Extended Release 12hr 600 mg PO Q12H PRN (Reason: Cough) isosorbide dinitrate 10 mg tablet 10 mg PO AMHS hydralazine 10 mg tablet 10 mg PO AMPM fluticasone propionate 50 mcg/actuation spray,suspension 2 sprays intranasal QAM rosuvastatin 10 mg tablet 10 mg PO HS torsemide 100 mg tablet 50 mg PO QAM Jardiance 10 mg tablet 10 mg PO QAM lisinopril 2.5 mg tablet 2.5 mg PO DAILY Referrals Referrals: Ben Cisneros MD [Primary Care Provider] - Discharge Problem: Pulmonary edema Qualifiers: Chronicity: acute Qualified Code(s): J81.0 - Acute pulmonary edema Chest pain Qualifiers: Chest pain type: unspecified Qualified Code(s): R07.9 - Chest pain, unspecified
[2023-09-09] MEDS ORDERED: FUROSEMIDE 40 MG/4 ML VIAL IV ONE (22:44)
[2023-09-09 23:10] LABS: Basophils # (auto) 0.11 K/uL (0.00-0.20); Basophils % (auto) 1.1 %; Eosinophils # (auto) 0.24 K/uL (0.00-0.50); Eosinophils % (auto) 2.3 %; Hematocrit (blood only) 32.9 % (42.0-52.0); Hemoglobin 10.9 g/dl (14.0-18.0); Immature Granulocytes # (auto) 0.04 K/uL (0.01-0.20); Immature Granulocytes % (auto) 0.4 %; Lymphocytes # (auto) 0.98 K/uL (1.20-3.40); Lymphocytes % (auto) 9.5 %; Mean Corpuscular Hemoglobin 29.4 pg (25.0-34.0); Mean Corpuscular Hgb Conc 33.1 g/dL (32.0-36.0); Mean Corpuscular Volume 88.7 fL (80.0-100.0); Mean Platelet Volume 10.7 fL (9.4-12.4); Monocytes # (auto) 1.25 K/uL (0.11-0.59); Monocytes % (auto) 12.1 %; Neutrophils # (auto) 7.74 K/uL (1.40-6.50); Neutrophils % (auto) 74.6 %; Platelet Count 215 K/uL (130-400); RDW Coefficient of Variation 14.3 % (11.5-14.5); RDW Standard Deviation 46.2 fL (36.4-46.3); Red Blood Count 3.71 M/uL (4.70-6.10); White Blood Count 10.36 K/ul (4.8-10.8)
[2023-09-09 23:27] LABS: Albumin Level 3.8 gm/dl (3.4-5.0); BUN Creatinine Ratio 23.6 (10-20); Bilirubin,Total 0.6 mg/dl (0.2-1.0); Calcium 9.7 mg/dl (8.6-10.3); Creatinine Clr Calc Pharmacy 21.2 ml/min; Est GFR (African American) 22.3 ml/min; Est GFR (Non-African American) 19.3 ml/min; Globulin 3.7 gm/dl (2.5-4.0); Potassium 4.5 mmol/L (3.5-5.1); Total Protein 7.5 gm/dl (6.0-8.3)
[2023-09-09 23:56] LABS: INR 1.1 (0.9-1.1); Partial Thromboplastin Time 27 Seconds (21-31); Prothrombin Time 11.6 Seconds (9.0-12.0)
[2023-09-10 00:05] LABS: Troponin I High Sensitivity 522.7 pg/ml (0-20)
[2023-09-10 02:21] LABS: Influenza A virus by PCR Negative (Neg); Influenza B virus by PCR Negative (Neg); RSV by PCR Negative (Neg)
[2023-09-10] MEDS ORDERED: Heparin IV Adult Wt-Based Standard w/ INITIAL Bolus Protocol IV STA (02:43)
--- NOTE | 2023-09-10 03:15 | History & Physical Report ---
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 Non-ST elevated SC Presents with chest pain which much improved now Initial troponin 522. Repeat [address] on IV heparin Blood pressure soft for Nitropaste Continue home aspirin, Coreg, Imdur and statin Follow serial cardiac enzymes and repeat EKG Follow echo Close monitor on telemetry floor N.p.o. Consult cardiology in a.m. Possible acute on chronic systolic CHF Recent EF in August 2023 40 to 44% Echo done in March 2023 showed EF of 25 to 30% Continue , Imdur and Coreg Holding lisinopril for TAYA Hold home torsemide Received IV Lasix 40 mg in the ER We will continue with IV Lasix 40 mg twice daily Daily weights and I's and O's Follow repeat echo Consult cardiology in a.m. Nocturnal hypoxia With oxygen 2 L while sleeping History for restrictive lung disease Interstitial pulmonary disease [place] workers pneumoconiosis Continue home inhalers Will place on nebs as needed Hyperlipidemia On statin Hypertension On Coreg, hydralazine, Imdur and diuretics Holding lisinopril We will monitor the blood pressure TAYA on CKD stage III Presented with creatinine of 2.8 Baseline creatinine around 1.9 Possibly cardiorenal Will follow the labs while getting IV diuretics We will hold lisinopril. Anemia Hemoglobin 10.9 Possibly anemia of chronic disease We will follow repeat labs stool for hemeoccult. 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 Patient was going up and down the steps few times for his laundry when he noticed chest pain which progressively got worse and he had to put down laundry basket . He gets this pain on and off but today it was persistent and EMS was called in. He was found to be 84% oxygen saturation with EMS. Received aspirin and nitro glycerin. His chest pain improved. Currently only has minimal discomfort. Lately also noticed some worsening edema in lower extremity and also some fluid in his abdomen.BUT says last two days his weight was down by 2 pounds. Has chronic cough. Denies any dizziness. Vision is okay. No earache or runny nose. No sore throat. No fevers. No nausea. No sweating. No abdominal pain. Stools are somewhat smaller in size. Denies any blood in the stools. Micturating okay. Appetite is okay. Past medical history. As mentioned above Past surgical history. Biopsy of prostate. Left elbow tendon repair. Bilateral carpal tunnel surgery. Colonoscopy. Injection of lumbosacral spine. Bilateral upper eyelid blepharoplasty. Appendectomy. Cataracts. Thoracocentesis on right side. Social history. . Current living alone. Daughter lives close by. Quit smoking 1959. Smoked quarter pack a day for 5 years. Alcohol weekly. No drug use. Family history. Father had COPD. Heart disorder. Mother had heart disorder. Brother had skin cancer. Brother has heart disease. Allergies Allergy/AdvReac Type Severity Reaction Status Date / Time No Known Allergies Allergy Verified 09/09/23 23:18 Home Medications Medication Instructions Recorded Confirmed Type aspirin 81 mg tablet,delayed 81 mg PO DAILY 05/21/19 09/09/23 History release tamsulosin 0.4 mg capsule 0.4 mg PO BID 05/21/19 09/09/23 History triamcinolone acetonide 0.1 % 1 applic topical BID PRN Skin 05/21/19 09/09/23 History topical ointment Irritation multivitamin-ferrous 1 tab PO DAILY 05/22/19 09/09/23 History fumarate-folic acid 18 mg-400 mcg tablet (Centrum Complete) carvedilol 12.5 mg tablet 12.5 mg PO BID 05/26/20 09/09/23 History citalopram 10 mg tablet 10 mg PO QAM 03/06/23 09/09/23 History cyanocobalamin (vitamin B-12) 100 100 mcg PO QAM 03/06/23 09/09/23 History mcg tablet (Vitamin B-12) famotidine 20 mg tablet 20 mg PO QAM 03/06/23 09/09/23 History guaifenesin 600 mg tablet, 600 mg PO Q12H PRN Cough 03/06/23 09/09/23 History extended release 12 hr ipratropium bromide 17 2 puff inhalation QID 03/06/23 09/09/23 History mcg/actuation HFA aerosol inhaler (Atrovent HFA) pantoprazole 20 mg tablet,delayed 20 mg PO DAILYBB 03/06/23 09/09/23 History release sodium chloride 0.65 % nasal spray 1 spray intranasal BID PRN NASAL 03/06/23 09/09/23 History aerosol (Saline Nasal) DRYNESS empagliflozin 10 mg tablet 10 mg PO QAM 09/09/23 09/09/23 History (Jardiance) fluticasone propionate 50 2 sprays intranasal QAM 09/09/23 09/09/23 History mcg/actuation nasal spray,suspension hydralazine 10 mg tablet 10 mg PO AMPM 09/09/23 09/09/23 History isosorbide dinitrate 10 mg tablet 10 mg PO AMHS 09/09/23 09/09/23 History lisinopril 2.5 mg tablet 2.5 mg PO DAILY 09/09/23 09/09/23 History rosuvastatin 10 mg tablet 10 mg PO HS 09/09/23 09/09/23 History torsemide 100 mg tablet 50 mg PO QAM 09/09/23 09/09/23 History Past Med/Surg History Medical History Bilateral pleural effusion Dyspnea on exertion HFrEF (heart failure with reduced ejection fraction) History of prostate cancer s/p XRT with brachy boost CKD (chronic kidney disease), stage III HTN (hypertension) Restrictive lung disease 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, coal, workers' Prostate cancer (11/03/14) "Rising PSA to 7.46 Status post ultrasound-guided biopsies revealing adenocarcinoma [place] 4+3, biopsy stage T2c Initiation of hormone suppression prior to prostate seed implant, short course Status post prostate seed implant 02/03/2015 with cesium 131 received 8500 cGy 50 seeds placed Status post completion of IMRT/IGRT 04/28/2015 received 4500 cGy " On 05/26/15 14:44 Shira Goldberg wrote "Rising PSA to 7.46 Status post ultrasound-guided biopsies revealing adenocarcinoma [place] 4+3, biopsy stage T2c Initiation of hormone suppression prior to prostate seed implant Status post prostate seed implant 02/03/2015 with cesium 131 received 8500 cGy 50 seeds placed Status post completion of IMRT/IGRT 04/28/2015 received 4500 cGy " On 05/01/15 12:43 Sandra Marquez wrote "Rising PSA to 7.46 Status post ultrasound-guided biopsies revealing adenocarcinoma [place] 4+3, biopsy stage T2c Initiation of hormone suppression Status post prostate seed implant 02/03/2015 with cesium 131 received 8500 cGy 50 seeds placed Status post completion of IMRT/IGRT 04/28/2015 received 4500 cGy " On 03/17/15 15:55 Sandra Marquez wrote "Rising PSA to 7.46 Status post ultrasound-guided biopsies revealing adenocarcinoma [place] 4+3, biopsy stage T2c Initiation of hormone suppression Status post prostate seed implant 02/03/2015 with cesium 131 received 8500 cGy 50 seeds placed Now for completion of IMRT/IGRT" Surgical History History of appendectomy H/O shoulder surgery Social History Smoking Status: Former smoker Tobacco Type: Cigarettes Second Hand Exposure: No; Do You Dip or Chew Tobacco: No; Tobacco Cessation Education Requested by Patient: No Hx Alcohol Use: No Hx Substance Use: No Preferred Language: Belarusian Communication Ability: Effective Analytical Chemist Required: No Beliefs That Will Affect Care: None marital status: / Current Living Situation: Alone Other Information That Helps Us Care for You: No Feels Safe at Home: Yes Safety Concerns: Feels Safe At This Time Assistive Devices: Oxygen - at Night Assistive Devices Comment: 2L at night Review of Systems Review of Systems: All systems reviewed & are unremarkable except as noted in HPI & below Physical Exam Physical Exam: General- Not in distress Head- atraumatic Eyes- PERRL. ENT- oropharynx clear Neck- supple, no JVD. Lungs- clear to auscultation mild bibasilar crackles, no wheezing Heart- regular rhythm; no murmur, no gallop. Abdomen- normal bowel sounds, soft, nontender, no distension. Extremities- pretibial edema present , no erythema seen. Neuro- alert, oriented x 3; PERRL, no facial palsy; no dysarthria; moves extremities. Skin- warm & dry Results & Data Results & Data Vital Signs (Past 12 Hours) Vital Signs Temp Pulse Pulse Resp BP BP Pulse Ox 09/10/23 01:30 61 16 104/54 L 92 09/10/23 01:00 66 16 115/60 93 09/10/23 00:45 64 22 108/61 93 09/10/23 00:30 74 24 113/65 93 09/10/23 00:00 70 12 116/65 93 09/09/23 23:30 69 20 118/70 96 09/09/23 22:55 71 22 122/70 97 09/09/23 22:33 72 09/09/23 22:16 36.9 C 74 22 110/60 96 09/09/23 22:16 96 09/09/23 22:16 72 22 96 09/09/23 22:16 36.9 C 75 24 110/60 96 O2 Del Method 09/10/23 01:30 09/10/23 01:00 09/10/23 00:45 09/10/23 00:30 09/10/23 00:00 09/09/23 23:30 09/09/23 22:55 Room Air 09/09/23 22:33 09/09/23 22:16 09/09/23 22:16 Room Air 09/09/23 22:16 Room Air 09/09/23 22:16 Room Air Diagnostic Findings Laboratory Results WBC 10.36 K/ul (4.8-10.8) 09/09/23 22:20 RBC 3.71 M/uL (4.70-6.10) L 09/09/23 22:20 Hgb 10.9 g/dl (14.0-18.0) L 09/09/23 22:20 Hct 32.9 % (42.0-52.0) L 09/09/23 22:20 MCV 88.7 fL (80.0-100.0) 09/09/23 22:20 MCH 29.4 pg (25.0-34.0) 09/09/23 22:20 MCHC 33.1 g/dL (32.0-36.0) 09/09/23 22: RDW Std Deviation 46.2 fL (36.4-46.3) 09/09/23 22: RDW Coeff of Nehemias 14.3 % (11.5-14.5) 09/09/23 22: Plt Count 215 K/uL (130-400) 09/09/23 22: MPV 10.7 fL (9.4-12.4) 09/09/23 22:20 Immature Gran % (Auto) 0.4 % 09/09/23 22:20 Neut % (Auto) 74.6 % 09/09/23 22:20 Lymph % (Auto) 9.5 % 09/09/23 22:20 [place] % (Auto) 12.1 % 09/09/23 22:20 Eos % (Auto) 2.3 % 09/09/23 22:20 Baso % (Auto) 1.1 % 09/09/23 22:20 Neut # (Auto) 7.74 K/uL (1.40-6.50) H 09/09/23 22:20 Lymph # (Auto) 0.98 K/uL (1.20-3.40) L 09/09/23 22:20 [place] # (Auto) 1.25 K/uL (0.11-0.59) H 09/09/23 22:20 Eos # (Auto) 0.24 K/uL (0.00-0.50) 09/09/23 22:20 Baso # (Auto) 0.11 K/uL (0.00-0.20) 09/09/23 22:20 Immature Gran # (Auto) 0.04 K/uL (0.01-0.20) 09/09/23 22:20 PT 11.6 Seconds (9.0-12.0) 09/09/23 22:20 INR 1.1 (0.9-1.1) 12/09/23 22:20 APTT 27 Seconds (21-31) 09/09/23 22:20 PTT Ratio 1.0 09/09/23 22:20 Sodium 133 mmol/L (136-145) L 09/09/23 22:20 Potassium 4.5 mmol/L (3.5-5.1) 09/09/23 22:20 Chloride 95 mmol/L (98-107) L 09/09/23 22:20 Carbon Dioxide 27 mmol/L (21-32) 09/09/23 22:20 Anion Gap 11 (3-11) 09/09/23 22:20 BUN 66 mg/dl (6-23) H 09/09/23 22:20 Creatinine 2.80 mg/dl (0.6-1.4) H 09/09/23 22:20 Est Cr Clr Drug Dosing 21.2 ml/min 09/09/23 22:20 Est GFR ( Amer) 22.3 ml/min 09/09/23 22:20 Est GFR (Non-Af Amer) 19.3 ml/min 09/09/23 22:20 BUN/Creatinine Ratio 23.6 (10-20) H 09/09/23 22:20 Glucose 151 mg/dl (70-99(Fasting)) H 09/09/23 22:20 Calcium 9.7 mg/dl (8.6-10.3) 09/09/23 22:20 Total Bilirubin 0.6 mg/dl (0.2-1.0) 09/09/23 22:20 AST 23 U/L (13-39) 09/09/23 22:20 ALT 11 U/L (7-52) 09/09/23 22:20 Alkaline Phosphatase 59 U/L (34-104) 09/09/23 22:20 Troponin I High Sens 2561.5 pg/ml (0-20) H* D 09/10/23 01:02 B-Natriuretic Peptide 754 pg/ml (0-100) H 09/09/23 22:20 Total Protein 7.5 gm/dl (6.0-8.3) 09/09/23 22:20 Albumin 3.8 gm/dl (3.4-5.0) 09/09/23 22:20 Globulin 3.7 gm/dl (2.5-4.0) 09/09/23 22:20 Albumin/Globulin Ratio 1.0 (0.9-2) 09/09/23 22:20 Lipase 41 U/L (11-82) 09/09/23 22:20 ECG Additional Comments: ECG. Sinus rhythm with first-degree AV block at rate of 69. ST-T abnormality in lateral leads. No significant changes found. Code Status & VTE Plan VTE Prophylaxis Plan VTE Prophylaxis will be ordered: Yes
[2023-09-10 03:22] LABS: SARS CoV2 RNA(COVID-19) Ceph POSITIVE (Negative)
[2023-09-10] MEDS ORDERED: HEPARIN SOD (PORCINE) 1000 UNIT/ML IV ONE (03:30)
[2023-09-10] MEDS: HEPARIN SODIUM/DEXTROSE 25,000 UNITS/500 ML BAG IV SCH ×2 (03:38→23:25)
[2023-09-10] MEDS ORDERED: LEVALBUTEROL 1.25MG/0.5ML NEB NEB PRN (04:34)
[2023-09-10] MEDS ORDERED: TRIAMCINOLONE ACET 0.1% OINT 15 GM TUBE TOP PRN (04:34)
[2023-09-10] MEDS ORDERED: guaiFENesin 600 MG TABCR PO PRN (04:34)
[2023-09-10] MEDS ORDERED: ACETAMINOPHEN 325 MG TAB PO PRN (04:34)
[2023-09-10] MEDS ORDERED: NITROGLYCERIN SL 0.4 MG/TAB TAB SL PRN (04:34)
[2023-09-10] MEDS ORDERED: SODIUM CHLORIDE 0.65% NA SOLN 45 ML (OCEAN) PRN (04:34)
[2023-09-10] MEDS: PANTOprazole 40 MG TAB PO SCH (06:18)
[2023-09-10 06:41] LABS: Basophils % (auto) 1.3 %; Eosinophils # (auto) 0.27 K/uL (0.00-0.50); Eosinophils % (auto) 3.4 %; Hematocrit (blood only) 34.3 % (42.0-52.0); Hemoglobin 11.4 g/dl (14.0-18.0); Immature Granulocytes # (auto) 0.03 K/uL (0.01-0.20); Immature Granulocytes % (auto) 0.4 %; Lymphocytes # (auto) 1.37 K/uL (1.20-3.40); Lymphocytes % (auto) 17.5 %; Mean Corpuscular Hemoglobin 29.4 pg (25.0-34.0); Mean Corpuscular Hgb Conc 33.2 g/dL (32.0-36.0); Mean Corpuscular Volume 88.4 fL (80.0-100.0); Mean Platelet Volume 10.8 fL (9.4-12.4); Monocytes # (auto) 1.12 K/uL (0.11-0.59); Monocytes % (auto) 14.3 %; Neutrophils # (auto) 4.94 K/uL (1.40-6.50); Neutrophils % (auto) 63.1 %; Platelet Count 209 K/uL (130-400); RDW Coefficient of Variation 14.5 % (11.5-14.5); RDW Standard Deviation 46.4 fL (36.4-46.3); Red Blood Count 3.88 M/uL (4.70-6.10); White Blood Count 7.83 K/ul (4.8-10.8)
[2023-09-10 06:52] LABS: BUN Creatinine Ratio 25.4 (10-20); Calcium 9.5 mg/dl (8.6-10.3); Creatinine Clr Calc Pharmacy 23.1 ml/min; Est GFR (African American) 24.9 ml/min; Est GFR (Non-African American) 21.5 ml/min; Magnesium 2.2 mg/dl (1.7-2.4); Potassium 3.9 mmol/L (3.5-5.1)
[2023-09-10] MEDS ORDERED: ISOSORBIDE DINITRATE 10 MG TAB PO SCH (07:00)
--- NOTE | 2023-09-10 07:08 | XRay Report ---
XR chest 1V portable HISTORY: 88 years-old Male Chest pain, nonspecific acute chest pain COMPARISON: Chest CT 04/04/2023 TECHNIQUE: AP view of the chest FINDINGS: Cardiac silhouette is enlarged. Atherosclerosis of the aorta. Diffuse reticular nodular opacities are again noted along with small pleural effusions and mild bibasilar densities. No pneumothorax or over t pulmonary edema. Bones appear grossly intact. IMPRESSION: 1. Cardiomegaly without overt pulmonary edema. 2. Chronic reticular nodular opacities, likely infectious or inflammatory. 3. Small pleural effusions. ACT 112: Negative or not required by law. The above report was generated using voice recognition software. It may contain grammatical, syntax o r spelling errors. Electronically signed by: Azar Bruce M.D. 09/10/2023 7:07 AM
--- NOTE | 2023-09-10 07:51 | Electrocardiogram Report ---
Test Reason : Blood Pressure : / mmHG Vent. Rate : 073 BPM Atrial Rate : 073 BPM P-R Int : 208 ms QRS Dur : 100 ms QT Int : 408 ms P-R-T Axes : 084 -10 174 degrees QTc Int : 449 ms Normal sinus rhythm 1st degree AV block Marked ST abnormality, possible inferior subendocardial injury Abnormal ECG When compared with ECG of 04-APR-2023 04:58, ST now depressed in Inferior leads Nonspecific T wave abnormality no longer evident in Inferior leads Nonspecific T wave abnormality has replaced inverted T waves in Anterior leads Confirmed by Chirag Cross ([id number]) on 09/10/2023 7:51:26 AM Referred By: REFERRED SELF Confirmed By:Keyshawn Cross
--- NOTE | 2023-09-10 07:52 | Electrocardiogram Report ---
Test Reason : Blood Pressure : / mmHG Vent. Rate : 069 BPM Atrial Rate : 069 BPM P-R Int : 210 ms QRS Dur : 096 ms QT Int : 428 ms P-R-T Axes : 072 004 145 degrees QTc Int : 458 ms Sinus rhythm with 1st degree A-V block Abnormal ECG When compared with ECG of 09-SEP-2023 22:13, (unconfirmed) No significant change was found Confirmed by Chirag Cross ([id number]) on 09/10/2023 7:51:54 AM Referred By: REFERRED SELF Confirmed By:Keyshawn Cross
[2023-09-10] MEDS: TAMSULOSIN HCL 0.4 MG CAP PO SCH ×2 (08:37→20:58)
[2023-09-10] MEDS: FAMOTIDINE 20 MG TAB PO SCH (08:37)
[2023-09-10] MEDS: CEROVITE ADV FORMULA TAB PO SCH (08:38)
[2023-09-10] MEDS: CYANOCOBALAMIN (B-12) 100 MCG TABLET PO SCH (08:38)
[2023-09-10] MEDS: ASPIRIN 81 MG ECTAB PO SCH (08:38)
[2023-09-10] MEDS: CITALOPRAM 20 MG TAB PO SCH (08:38)
[2023-09-10] MEDS: FUROSEMIDE 40 MG/4 ML VIAL IV SCH ×2 (08:39→17:15)
[2023-09-10] MEDS: carvediloL 12.5 MG TAB PO SCH ×2 (08:39→20:58)
[2023-09-10] MEDS: dexAMETHasone 6 MG in SYRINGE 0 ML IV SCH (08:39)
[2023-09-10] MEDS: FLUTICASONE PROPIONATE NA SPR 16 GM BTL SCH (08:39)
[2023-09-10] MEDS ORDERED: lisinopril 2.5 MG TAB PO SCH (09:00)
[2023-09-10] MEDS ORDERED: DEXAMETHASONE SOD INJ 4 MG/ML VIAL IV SCH (09:00)
[2023-09-10] MEDS ORDERED: hydrALAZINE 10 MG TAB PO SCH (09:00)
--- NOTE | 2023-09-10 10:13 | Communication Note ---
Date of Service: September 10, 2023 Mr. 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 Patient seen at bedside for hemoptysis. Multiple tissues with fairly bloody tinged sputum with cough, which is new despite known lung history. Patient denies fevers, chills. States cough is chronic and otherwise at baseline in frequency/productivity. EXAM with generally decreased breathsounds, faint heart sounds. AOx4 The follow ECHO studies reviewed from OSH records: "Limited Echocardiogram 08/15/2023 LVEF stable 40-44% Echocardiogram 04/13/2023 The left ventricular cavity size is normal. The LV wall thickness is normal. Mid and apical wall segments are severely hypokinetic with apical expansion. Basilar structures contract normally. There is moderate left ventricular dysfunction The qualitative LV ejection fraction is 40-44% (mildly reduced). The left ventricular diastolic function is moderately abnormal (grade II). Mild aortic valve sclerosis is present. Echocardiogram [facility] 03/28/2023 Left ventricle is normal in size There is moderate concentric left ventricular hypertrophy Large wall segment abnormality present with midlevel and apical segments of left ventricle severely hypokinetic to akinetic with mild expansion EF 25-30% Aortic valve sclerosis moderate, without significant aortic valvular stenosis Mild to moderate MR Mild TR Right ventricular systolic pressure is significantly elevated at 50-60mmHg Moderate size right pleural effusion Echocardiogram 04/07/2022 Normal LV chamber size with mild concentric LVH. Normal LV systolic function without regional wall motion abnormalities current Calculated LV ejection Fraction = 60% (bi-plane method of discs). Grade 2 diastolic dysfunction. Moderate aortic valve sclerosis without stenosis. Mild mitral regurgitation " AP #NSTEMI #Typical Chest pain -Resolves with nitro, continue prn -Continue asa -Cardiology following, appreciate recs Acute on chronic respiratory failure with hypoxia #nocturnal hypoxia -Multifactorial given HFrEF and restrictive/interstitial lung disease -wean o2 as able #Hemoptysis -Blood tinged sputum, ongoing pulm history, [facility] -[facility]m consult give complicated presentation for any further interventions, resumption of AC #Acute HFrEF (LVEF 25-30% on 03/2023, recovered & 08/2023 ]) [facility] limited echo in 08/15/2023 revealed improved EF previously to 40-45% after experiencing "stress induced v ischemic cardiomyopathy in 03/2023) - Home diuretics: Torsemide 50mg qam - GDMT: *BetaB: Continue Coreg 12.5mg BID *RAAS: Hold home lisinopril 2.5mg iso TAYA *Nasir: avoid 2/2 renal function *Vasodilator: Hydralazine 10mg BID, Imdur 10mg BID *SGLT: hold 2/2 renal function Jardiance 10mg daily *ICD: Address outpatient - s/p 40mg IV lasix in the ED - Will start aggressive diuresis with 40mg IV BID for goal net negative - Strict I/Os, daily weights #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 -potentially related to CRS -Trend BMP, if uptrending plan for urine lytes/protein,cr as well as nephro consult -Strict IOs #[place] 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
--- NOTE | 2023-09-10 11:07 | Pulmonary Consultation ---
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 After heparin infusion patient developed scant amount of hemoptysis admixed with sputum. Will give nebulized TXA (250 mg) at this time and then can retrial heparin infusion. Continue nebulized TXA as needed. Suspect mild hemoptysis related to acute bronchitis from COVID-19 and capillary leak syndrome given severe pulmonary hypertension noted on echo in the context of anticoagulation. Plan of care coordinated with the hospitalist service and Dr. Murray of cardiology. Consider continuing oral corticosteroids for 3 to 5 days for bronchitis related to dexamethasone. No clear signs of bacterial infection at this time. Thank you for the consult. Will continue to follow with you. 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 His pain was persistent and EMS was called. He was admitted to the hospital and underwent a chest x-ray, troponins and EKG. his troponin is elevated to 7368. He was started on a heparin drip. He had a scant amount of hemoptysis admixed with mucus. His hemoglobin is 11.4. Chest x-ray personally reviewed which reveals cardiomegaly without overt pulmonary edema. Reticulonodular opacities seen and small pleural effusions were seen. These findings are relatively unchanged compared to chest x-ray from April. Echo completed today reveals an EF of 20 to 25%. Severe pulmonary hypertension noted with an RVSP of 70 mmHg. Large sized apical, septal, anterior septal, anterior, inferior, posterior lateral wall motion abnormalities noted. 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 No significant changes compared to prior echo from March. He was also found to be COVID-positive 09/10/2023. He is currently on dexamethasone 6 mg daily. He has remained afebrile. Allergies Allergy/AdvReac Type Severity Reaction Status Date / Time No Known Allergies Allergy Verified 09/09/23 23:18 Home Medications Medication Instructions Recorded Confirmed Type aspirin 81 mg tablet,delayed 81 mg PO DAILY 05/21/19 09/09/23 History release tamsulosin 0.4 mg capsule 0.4 mg PO BID 05/21/19 09/09/23 History triamcinolone acetonide 0.1 % 1 applic topical BID PRN Skin 05/21/19 09/09/23 History topical ointment Irritation multivitamin-ferrous 1 tab PO DAILY 05/22/19 09/09/23 History fumarate-folic acid 18 mg-400 mcg tablet (Centrum Complete) carvedilol 12.5 mg tablet 12.5 mg PO BID 05/26/20 09/09/23 History citalopram 10 mg tablet 10 mg PO QAM 03/06/23 09/09/23 History cyanocobalamin (vitamin B-12) 100 100 mcg PO QAM 03/06/23 09/09/23 History mcg tablet (Vitamin B-12) famotidine 20 mg tablet 20 mg PO QAM 03/06/23 09/09/23 History guaifenesin 600 mg tablet, 600 mg PO Q12H PRN Cough 03/06/23 09/09/23 History extended release 12 hr ipratropium bromide 17 2 puff inhalation QID 03/06/23 09/09/23 History mcg/actuation HFA aerosol inhaler (Atrovent HFA) pantoprazole 20 mg tablet,delayed 20 mg PO DAILYBB 03/06/23 09/09/23 History release sodium chloride 0.65 % nasal spray 1 spray intranasal BID PRN NASAL 03/06/23 09/09/23 History aerosol (Saline Nasal) DRYNESS empagliflozin 10 mg tablet 10 mg PO QAM 09/09/23 09/09/23 History (Jardiance) fluticasone propionate 50 2 sprays intranasal QAM 09/09/23 09/09/23 History mcg/actuation nasal spray,suspension hydralazine 10 mg tablet 10 mg PO AMPM 09/09/23 09/09/23 History isosorbide dinitrate 10 mg tablet 10 mg PO AMHS 09/09/23 09/09/23 History lisinopril 2.5 mg tablet 2.5 mg PO DAILY 09/09/23 09/09/23 History rosuvastatin 10 mg tablet 10 mg PO HS 09/09/23 09/09/23 History torsemide 100 mg tablet 50 mg PO QAM 09/09/23 09/09/23 History Patient History Medical History (Updated 09/10/23 @ 13:10 by Felix Ruiz MD) Cough with hemoptysis Bilateral pleural effusion Dyspnea on exertion HFrEF (heart failure with reduced ejection fraction) History of prostate cancer s/p XRT with brachy boost CKD (chronic kidney disease), stage III HTN (hypertension) Restrictive lung disease 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, coal, workers' Prostate cancer (11/03/14) "Rising PSA to 7.46 Status post ultrasound-guided biopsies revealing adenocarcinoma [place] 4+3, biopsy stage T2c Initiation of hormone suppression prior to prostate seed implant, short course Status post prostate seed implant 02/03/2015 with cesium 131 received 8500 cGy 50 seeds placed Status post completion of IMRT/IGRT 04/28/2015 received 4500 cGy " On 05/26/15 14:44 Shira Goldberg wrote "Rising PSA to 7.46 Status post ultrasound-guided biopsies revealing adenocarcinoma [place] 4+3, biopsy stage T2c Initiation of hormone suppression prior to prostate seed implant Status post prostate seed implant 02/03/2015 with cesium 131 received 8500 cGy 50 seeds placed Status post completion of IMRT/IGRT 04/28/2015 received 4500 cGy " On 05/01/15 12:43 Sandra Marquez wrote "Rising PSA to 7.46 Status post ultrasound-guided biopsies revealing adenocarcinoma [place] 4+3, biopsy stage T2c Initiation of hormone suppression Status post prostate seed implant 02/03/2015 with cesium 131 received 8500 cGy 50 seeds placed Status post completion of IMRT/IGRT 04/28/2015 received 4500 cGy " On 03/17/15 15:55 Sandra Marquez wrote "Rising PSA to 7.46 Status post ultrasound-guided biopsies revealing adenocarcinoma [place] 4+3, biopsy stage T2c Initiation of hormone suppression Status post prostate seed implant 02/03/2015 with cesium 131 received 8500 cGy 50 seeds placed Now for completion of IMRT/IGRT" Surgical History History of appendectomy H/O shoulder surgery Social History Smoking Status: Former smoker Tobacco Type: Cigarettes Second Hand Exposure: No; Do You Dip or Chew Tobacco: No; Tobacco Cessation Education Requested by Patient: No Hx Alcohol Use: No Hx Substance Use: No Preferred Language: Uzbek Communication Ability: Effective Automatic Toe Laster Required: No Beliefs That Will Affect Care: None marital status: / Current Living Situation: Alone Other Information That Helps Us Care for You: No Feels Safe at Home: Yes Safety Concerns: Feels Safe At This Time Assistive Devices: Oxygen - at Night Assistive Devices Comment: 2L at night Review of Systems Review of Systems: All systems reviewed & are unremarkable except as noted in HPI & below Physical Exam Constitutional: not ill appearing Neck: normal visual inspection and trachea midline Respiratory: no respiratory distress, no labored breathing, no cough and not tachypneic Auscultation: + diminished lung sounds; no crackles and no wheezes Cardiovascular: Rate/Rhythm: regular rate and regular rhythm Heart Sounds: normal S1 and normal S2; no murmur Vessels: + JVD Extremities: + edema Gastrointestinal (Abdomen): Percussion/Palpation: abdomen nontender Skin: no rashes, warm and dry Psychiatric: A+Ox3, euthymic affect Results & Data Results & Data Vital Signs (Past 12 Hours) Vital Signs Temp Pulse Pulse Resp BP BP BP 09/10/23 09:00 72 09/10/23 08:02 09/10/23 07:26 36.4 C L 74 20 114/64 09/10/23 04:42 09/10/23 04:35 71 09/10/23 04:34 36.7 C 71 21 102/59 L 09/10/23 04:34 09/10/23 04:00 64 12 111/64 09/10/23 03:00 58 L 16 103/60 09/10/23 02:45 63 16 112/68 09/10/23 02:32 68 09/10/23 02:00 60 18 105/58 L 09/10/23 01:30 61 16 104/54 L 09/10/23 01:00 66 16 115/60 09/10/23 00:45 64 22 108/61 09/10/23 00:30 74 24 113/65 09/10/23 00:00 70 12 116/65 09/09/23 23:30 69 20 118/70 Pulse Ox Pulse Ox O2 Del Method O2 Del Method O2 Flow Rate O2 Flow Rate 09/10/23 09:00 09/10/23 08:02 Nasal Cannula 2 09/10/23 07:26 94 Nasal Cannula 2 09/10/23 04:42 Nasal Cannula 2 09/10/23 04:35 09/10/23 04:34 94 Nasal Cannula 2 09/10/23 04:34 94 Nasal Cannula 2 09/10/23 04:00 97 Nasal Cannula 2 09/10/23 03:00 99 Nasal Cannula 2 09/10/23 02:45 94 09/10/23 02:32 09/10/23 02:00 95 09/10/23 01:30 92 09/10/23 01:00 93 09/10/23 00:45 93 09/10/23 00:30 93 09/10/23 00:00 93 09/09/23 23:30 96 PG Care Time/CCT Total # of Minutes Spent Total Time Spent with Patient: Total time spent is greater than 50% in coordination of care (as documented) at patient's floor/unit and/or counseling patient: Coding Level of Care Code 87744 INT INP/OBS CARE 2/55MIN Diagnoses Cough with hemoptysis R04.2 NSTEMI (non-ST elevated myocardial infarction) I21.4 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
--- NOTE | 2023-09-10 11:12 | Cardiology Consultation ---
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 EKG consistent with subendocardial ischemia with chronic subtle lateral ST segment depression that is more prominent this admission, high-sensitivity troponin elevated on presentation last night at 522 PG per mL, and is trended up to 7368 PG per mL. Echocardiogram consistent with ischemic cardiomyopathy with LAD territory apical scar with aneurysmal expansion. Patient has been on torsemide 50 mg by mouth daily as an outpatient with findings of previous moderate bilateral pleural effusions on CT scan dating back to April,. He has tested positive for SARS-CoV-2 and is on appropriate isolation, but does not have a fever, and his presenting subjective symptoms are certainly consist ent with angina. He is cognitively intact and comfortable at present but does have ongoing 2/10 chest discomfort. Unfractioned heparin on hold due to blood- tinged sputum. Therapeutics: Hold heparin. Continue aspirin. Is difficult to differentiate congestive heart failure from his chronic interstitial changes on chest x-ray however clinically he has improved with diuretic therapy and at present I recommend continuing furosemide 40 mg twice daily. Hold chronic treatment with isosorbide dinitrate in favor of topical nitroglycerin at present. Lisinopril on hold, continue oral hydralazine for afterload reduction. Continue carvedilol and rosuvastatin. Continue Atrovent inhaler and dexamethasone. Favor conservative medical management rather than consideration of cardiac catheterization. Has baseline renal insufficiency certainly places him at risk for worsening renal function, based on his echo findings, I am not optimistic that a coronary culprit amenable to revascularization would be found. History of Present Illness Attending Physician: Gwen Canas MD History of Present Illness Ned Elliott Is an 88-year-old male seen in cardiology consultation per the request of Dr Torres for the evaluation of chest discomfort. The patient states that since his discharge in March, he has had intermittent chest discomfort that has persisted especially over the last 2 months. It however has been worse over the last 48 hours, and he has also had development of a worsening cough. He had been placed on unfractioned heparin last night and in the meantime has developed cough productive of blood tinged mucus and therefore the heparin has been discontinued. At present, he describes 2/10 chest discomfort, but is in no acute distress. 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 In March, he had presented with symptoms suggestive of a pneumonia with superimposed volume overload. An echocardiogram performed during that hospital stay revealed new finding of severe left ventricular systolic dysfunction, LVEF in the range of 25 to 30%, regional wall motion consistent with an LAD territory wall motion abnormality or left apical ballooning picture compatible with stress-induced cardiomyopathy. Patient treated medically from a cardiac perspective. Echocardiogram performed this morning reveals ongoing left ventricular systolic dysfunction, with LAD territory wall motion abnormality, and severe apical akinesis LVEF in the range of 20 to 25%. The right ventricular chamber size and systolic function was normal. Mild tricuspid regurgitation present with severe pulmonary hypertension, pulmonary artery systolic pressure estimated to be 70 mmHg. Overall the echocardiogram appears relatively similar to the images obtained at the time of the March study however the LV apex is better visualized with patient having received the ultrasound enhancement agent Definity at the time of the study. Allergies Allergy/AdvReac Type Severity Reaction Status Date / Time No Known Allergies Allergy Verified 09/09/23 23:18 Home Medications Medication Instructions Recorded Confirmed Type aspirin 81 mg tablet,delayed 81 mg PO DAILY 05/21/19 09/09/23 History release tamsulosin 0.4 mg capsule 0.4 mg PO BID 05/21/19 09/09/23 History triamcinolone acetonide 0.1 % 1 applic topical BID PRN Skin 05/21/19 09/09/23 History topical ointment Irritation multivitamin-ferrous 1 tab PO DAILY 05/22/19 09/09/23 History fumarate-folic acid 18 mg-400 mcg tablet (Centrum Complete) carvedilol 12.5 mg tablet 12.5 mg PO BID 05/26/20 09/09/23 History citalopram 10 mg tablet 10 mg PO QAM 03/06/23 09/09/23 History cyanocobalamin (vitamin B-12) 100 100 mcg PO QAM 03/06/23 09/09/23 History mcg tablet (Vitamin B-12) famotidine 20 mg tablet 20 mg PO QAM 03/06/23 09/09/23 History guaifenesin 600 mg tablet, 600 mg PO Q12H PRN Cough 03/06/23 09/09/23 History extended release 12 hr ipratropium bromide 17 2 puff inhalation QID 03/06/23 09/09/23 History mcg/actuation HFA aerosol inhaler (Atrovent HFA) pantoprazole 20 mg tablet,delayed 20 mg PO DAILYBB 03/06/23 09/09/23 History release sodium chloride 0.65 % nasal spray 1 spray intranasal BID PRN NASAL 03/06/23 09/09/23 History aerosol (Saline Nasal) DRYNESS empagliflozin 10 mg tablet 10 mg PO QAM 09/09/23 09/09/23 History (Jardiance) fluticasone propionate 50 2 sprays intranasal QAM 09/09/23 09/09/23 History mcg/actuation nasal spray,suspension hydralazine 10 mg tablet 10 mg PO AMPM 09/09/23 09/09/23 History isosorbide dinitrate 10 mg tablet 10 mg PO AMHS 09/09/23 09/09/23 History lisinopril 2.5 mg tablet 2.5 mg PO DAILY 09/09/23 09/09/23 History rosuvastatin 10 mg tablet 10 mg PO HS 09/09/23 09/09/23 History torsemide 100 mg tablet 50 mg PO QAM 09/09/23 09/09/23 History Patient History Medical History Bilateral pleural effusion Dyspnea on exertion HFrEF (heart failure with reduced ejection fraction) History of prostate cancer s/p XRT with brachy boost CKD (chronic kidney disease), stage III HTN (hypertension) Restrictive lung disease 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, 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, 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' Prostate cancer (11/03/14) "Rising PSA to 7.46 Status post ultrasound-guided biopsies revealing adenocarcinoma [place] 4+3, biopsy stage T2c Initiation of hormone suppression prior to prostate seed implant, short course Status post prostate seed implant 02/03/2015 with cesium 131 received 8500 cGy 50 seeds placed Status post completion of IMRT/IGRT 04/28/2015 received 4500 cGy " On 05/26/15 14:44 Shira Goldberg wrote "Rising PSA to 7.46 Status post ultrasound-guided biopsies revealing adenocarcinoma [place] 4+3, biopsy stage T2c Initiation of hormone suppression prior to prostate seed implant Status post prostate seed implant 02/03/2015 with cesium 131 received 8500 cGy 50 seeds placed Status post completion of IMRT/IGRT 04/28/2015 received 4500 cGy " On 05/01/15 12:43 Sandra Marquez wrote "Rising PSA to 7.46 Status post ultrasound-guided biopsies revealing adenocarcinoma [place] 4+3, biopsy stage T2c Initiation of hormone suppression Status post prostate seed implant 02/03/2015 with cesium 131 received 8500 cGy 50 seeds placed Status post completion of IMRT/IGRT 04/28/2015 received 4500 cGy " On 03/17/15 15:55 Sandra Marquez wrote "Rising PSA to 7.46 Status post ultrasound-guided biopsies revealing adenocarcinoma [place] 4+3, biopsy stage T2c Initiation of hormone suppression Status post prostate seed implant 02/03/2015 with cesium 131 received 8500 cGy 50 seeds placed Now for completion of IMRT/IGRT" Surgical History History of appendectomy H/O shoulder surgery Social History Smoking Status: Former smoker Tobacco Type: Cigarettes Second Hand Exposure: No; Do You Dip or Chew Tobacco: No; Tobacco Cessation Education Requested by Patient: No Hx Alcohol Use: No Hx Substance Use: No Preferred Language: Portuguese Communication Ability: Effective Wool Grader Required: No Beliefs That Will Affect Care: None marital status: / Current Living Situation: Alone Other Information That Helps Us Care for You: No Feels Safe at Home: Yes Safety Concerns: Feels Safe At This Time Assistive Devices: Oxygen - at Night Assistive Devices Comment: 2L at night Review of Systems Review of Systems: All systems reviewed & are unremarkable except as noted in HPI & below Physical Exam Physical Exam: Temp Pulse Resp BP Pulse Ox O2 Del Method O2 Flow Rate 36.4 C L 72 20 114/64 94 Nasal Cannula 2 09/10/23 07:26 09/10/23 09:00 09/10/23 07:26 09/10/23 07:26 09/10/23 07:26 09/10/23 08:02 09/10/23 08:02 Constitutional: no acute distress Eyes: PERRL, conjunctivae normal, anicteric sclerae Respiratory: Auscultation: + diminished lung sounds (Decreased breath sounds bilaterally at the bases,) and + crackles (Noted at the mid and apical lung varela) Cardiovascular: Rate/Rhythm: regular rhythm Vessels: no JVD Extremities: no edema Gastrointestinal (Abdomen): normal bowel sounds, soft, nontender, no he patosplenomegaly Neurologic: PERRL, EOMI, accommodation nl, no face palsy, no dysarthria Results & Data Laboratory Results Cardiac Enzymes 09/09/23 09/10/23 09/10/23 Range/Units 22:20 01:02 05:38 AST 23 (13-39) U/L Troponin I High Sens 522.7 H* 2561.5 H* D 7368.5 H* D (0-20) pg/ml B-Natriuretic Peptide 754 H (0-100) pg/ml Coagulation 09/09/23 Range/Units 22:20 PT 11.6 (9.0-12.0) Seconds APTT 27 (21-31) Seconds B-Natriuretic Peptide 754 H (0-100) pg/ml CBC 09/09/23 09/10/23 Range/Units 22:20 05:38 WBC 10.36 7.83 (4.8-10.8) K/ul RBC 3.71 L 3.88 L (4.70-6.10) M/uL Hgb 10.9 L 11.4 L (14.0-18.0) g/dl Hct 32.9 L 34.3 L (42.0-52.0) % Plt Count 215 209 (130-400) K/uL Neut # (Auto) 7.74 H 4.94 (1.40-6.50) K/uL Lymph # (Auto) 0.98 L 1.37 (1.20-3.40) K/uL Lamb # (Auto) 1.25 H 1.12 H (0.11-0.59) K/uL Eos # (Auto) 0.24 0.27 (0.00-0.50) K/uL Baso # (Auto) 0.11 0.10 (0.00-0.20) K/uL Comprehensive Metabolic Panel 09/09/23 09/10/23 Range/Units 22:20 05:38 Sodium 133 L 135 L (136-145) mmol/L Potassium 4.5 3.9 (3.5-5.1) mmol/L Chloride 95 L 96 L (98-107) mmol/L Carbon Dioxide 27 29 (21-32) mmol/L BUN 66 H 65 H (6-23) mg/dl Creatinine 2.80 H 2.56 H (0.6-1.4) mg/dl Glucose 151 H 115 H (70-99(Fasting)) mg/dl Calcium 9.7 9.5 (8.6-10.3) mg/dl AST 23 (13-39) U/L ALT 11 (7-52) U/L Alkaline Phosphatase 59 (34-104) U/L Total Protein 7.5 (6.0-8.3) gm/dl Albumin 3.8 (3.4-5.0) gm/dl Intake and Output 09/09/23 09/10/23 09/10/23 22:59 06:59 14:59 Intake Total 100 / 130 30 / 130 170 / 170 Output Total 100 / 100 Balance 100 / 130 30 / 130 70 / 70 Intake: IV 100 / 100 170 / 170 Heparin Sodium/Dextrose 25,000 170 / 170 units In 500 ml @ 1,500 UNITS/ HR 30 mls/hr IV .[id number] [facility] Rx #:[id number] Left Forearm 100 / 100 Oral 30 / 30 Output: Urine 100 / 100 Other: Weight 82 kg 82 kg Weight Measurement Method Built in [facility] Built in [facility] Diagnostic Findings Chest x-ray performed on presentation revealed small bilateral pleural effusions, with chronic reticular nodular opacities Patient with 2 EKG tracings performed on 09/09/2023 and an additional tracing performed this morning at 622 revealing sinus rhythm in the 70s with first- degree AV block, age-indeterminate anterior/septal infarct pattern with lateral ST segment depression suggestive of ischemia that is slightly more prominent than previous historical tracings. No ST segment elevation.
[2023-09-10] MEDS: IPRATROPIUM BROMIDE HFA INHALER INH SCH ×4 (11:21→20:02)
[2023-09-10 11:38] LABS: ANTI-Xa, UFH(UnfractionatedHep 0.99 IU/ml (0.3-0.7)
[2023-09-10] MEDS: NITROGLYCERIN 2% OINTMENT 30GM TUBE EXT SCH ×2 (12:00→17:15)
[2023-09-10] MEDS: guaiFENesin 600 MG TABCR PO SCH ×2 (12:00→20:59)
[2023-09-10] MEDS ORDERED: TXA 10% Non-IV Routes 100 MG/ML VIAL NEB ONE (12:18)
--- NOTE | 2023-09-10 12:49 | Electrocardiogram Report ---
Test Reason : Blood Pressure : / mmHG Vent. Rate : 072 BPM Atrial Rate : 072 BPM P-R Int : 204 ms QRS Dur : 098 ms QT Int : 436 ms P-R-T Axes : 093 -19 186 degrees QTc Int : 477 ms Normal sinus rhythm 1st degree AV block Marked ST abnormality, possible inferior subendocardial injury Abnormal ECG When compared with ECG of 09-SEP-2023 23:04, No significant change was found Confirmed by Chirag Cross ([id number]) on 09/10/2023 12:48:54 PM Referred By: REFERRED SELF Confirmed By:Keyshawn Cross
--- NOTE | 2023-09-10 16:28 | Communication Note ---
Date of Service: September 10, 2023 Most recent troponin level as drawn at 11 AM this morning was increased to 13,033 PG per mL Patient received a dose of Tranexamic Acid nebulized therapy as recommended by pulmonary to hopefully help with his pulmonary secretions and decrease risk of hemoptysis. I spoke to the patient's nurse, chest pain improved/resolved at time of most recent assessment. Reinitiate unfractioned heparin infusion without bolus at previous rate, and check anti-Xa level as per protocol. Continue aspirin, topical nitrate. Future considerations include addition of clopidogrel, but would not load with clopidogrel at present given recent hemoptysis. I had a conversation with the patient's son and [id number] with regards to findings and plan.
[2023-09-10 18:04] LABS: ANTI-Xa, UFH(UnfractionatedHep < 0.10 IU/ml (0.3-0.7)
[2023-09-10] MEDS: ROSUVASTATIN CALCIUM 10 MG TAB PO SCH (20:58)
[2023-09-10] MEDS ORDERED: Nursing to Pharmacy Communication SCH (23:29)
[2023-09-11] MEDS: NITROGLYCERIN 2% OINTMENT 30GM TUBE EXT SCH ×4 (00:29→17:44)
[2023-09-11] MEDS: PANTOprazole 40 MG TAB PO SCH (05:38)
[2023-09-11] MEDS ORDERED: Nursing to Pharmacy Communication SCH (06:45)
[2023-09-11] MEDS: IPRATROPIUM BROMIDE HFA INHALER INH SCH ×4 (07:46→20:30)
--- NOTE | 2023-09-11 07:58 | Cardiology Progress Note ---
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': Admission and Anticipated Discharge Date Admission Date: September 10, 2023 Supervising Physician Co-Signing Physician Notes 88 yo man presenting with chest pain Dx: NSETMI; COVID + Heparin -held secondary to Hemoptysis Conservative management of NSTEMI in the face of significant renal disease Medical Hx: * Ischemic Heart Disease * Cardiomyopathy * CKD - stage IV chronic kidney disease, with estimated GFR in the 20s Plans: * Ischemic heart disease * EKG consistent with subendocardial ischemia with chronic subtle lateral ST segment depression that is more prominent this admission, high-sensitivity troponin elevated on presentation last night at 522 PG per mL - trended up to 7368 PG per mL. * Cardiomyopathy - LVEF 20-25% * SBP Marginal * Ongoing chest tightness * Ongoing hemoptysis * STOP Hydralazine * Start Imdur 30 mg po per day * Stop Coreg * Start Toprol XL 25 mg po per day * No KENNETH/ARB/ARNI or Aldactone given GFR * Holding of systemic anticoagulation given hemoptysis * Continue ASA * Patient appears euvolemic * STOP Lasix IV * Restart Torsemide 50 mg po per day * Kdur 20 meq po x 1 * Continue Crestor 10 mg po per day * Check Fasting Lipid Micah Hernandez Subjective ID: [id number] yo man presenting with Events Overnight: * None reported * No telemetry events Subjective: * + Angina * Breathing improved Review of Systems Review of Systems: All systems reviewed & are unremarkable except as noted in HPI & below Physical Exam Physical Exam: thin man JVP at base of neck S1S2 Soft 2/6 systolic murmur No C/C/E Results & Data Vital Signs (Past 12 Hours) Vital Signs Temp Pulse Pulse Resp BP Pulse Ox O2 Del Method 09/11/23 07:47 80 18 95 Nasal Cannula 09/11/23 05:39 121/60 09/11/23 04:10 36.4 C L 66 18 125/65 96 Nasal Cannula 09/10/23 23:55 36.4 C L 66 18 113/61 96 Nasal Cannula 09/10/23 22:25 67 09/10/23 20:05 70 16 94 Nasal Cannula 09/10/23 20:00 Nasal Cannula 09/10/23 20:00 36.6 C 67 18 129/64 98 Nasal Cannula O2 Flow Rate 09/11/23 07:47 2 09/11/23 05:39 09/11/23 04:10 2 09/10/23 23:55 09/10/23 22:25 09/10/23 20:05 2 09/10/23 20:00 2 09/10/23 20:00 2 Laboratory Results Cardiac Enzymes 09/10/23 09/11/23 09/11/23 Range/Units 17:16 08:57 08:57 Troponin I High Sens 23955.2 H* Cancelled 9167.1 H* D (0-20) pg/ml B-Natriuretic Peptide 1793 H (0-100) pg/ml Coagulation 09/11/23 Range/Units 08:57 B-Natriuretic Peptide 1793 H (0-100) pg/ml CBC 09/11/23 Range/Units 08:57 WBC 13.99 H (4.8-10.8) K/ul RBC 4.09 L (4.70-6.10) M/uL Hgb 12.1 L (14.0-18.0) g/dl Hct 35.8 L (42.0-52.0) % Plt Count 237 (130-400) K/uL Comprehensive Metabolic Panel 09/11/23 Range/Units 08:57 Sodium 135 L (136-145) mmol/L Potassium 4.0 (3.5-5.1) mmol/L Chloride 94 L (98-107) mmol/L Carbon Dioxide 28 (21-32) mmol/L BUN 70 H (6-23) mg/dl Creatinine 2.26 H D (0.6-1.4) mg/dl Glucose 130 H (70-99(Fasting)) mg/dl Calcium 9.9 (8.6-10.3) mg/dl Intake and Output 09/11/23 09/11/23 09/11/23 06:59 14:59 22:59 Intake Total 104 / 862.5 Output Total Balance 103 / 761.5 Intake: IV 104 / 382.5 Heparin Sodium/Dextrose 25,000 104 / 382.5 units In 500 ml @ 0 UNITS/HR IV .Q0M [facility] Rx#:[id number] Output: # Bowel Movements 1 / 1 Other: # Unmeasured Voids 2 Weight 82.6 kg Weight Measurement [facility] Medications Administered Current Inpatient Medications Acetaminophen (Acetaminophen 325 Mg Tab) 650 mg PO Q4H PRN PRN Reason: Pain or Fever Stop: 10/10/23 04:33 Aspirin (Aspirin 81 Mg Ectab) 81 mg PO DAILY [facility] Stop: 10/10/23 08:59 Last Admin: 09/10/23 08:38 Dose: 81 mg Carvedilol (Carvedilol 12.5 Mg Tab) 12.5 mg PO BID [facility] Stop: 10/10/23 08:59 Last Admin: 09/10/23 20:58 Dose: 12.5 mg Citalopram Hydrobromide (Citalopram 20 Mg Tab) 10 mg PO QAM [facility] Stop: 10/10/23 08:59 Last Admin: 09/10/23 08:38 Dose: 10 mg Cyanocobalamin (Cyanocobalamin (B-12) 100 Mcg Tablet) 100 mcg PO QAM [facility] Stop: 10/10/23 08:59 Last Admin: 09/10/23 08:38 Dose: 100 mcg Famotidine (Famotidine 20 Mg Tab) 20 mg PO QAM [facility] Stop: 10/10/23 08:59 Last Admin: 09/10/23 08:37 Dose: 20 mg Fluticasone Propionate (Fluticasone Propionate Na Spr 16 Gm Btl) 2 sprays NA QAM [facility] Stop: 10/10/23 08:59 Last Admin: 09/10/23 08:39 Dose: 2 sprays Furosemide (Furosemide 40 Mg/4 Ml Vial) 40 mg IV BID17 [facility] Stop: 10/10/23 08:59 Last Admin: 09/10/23 17:15 Dose: 40 mg Guaifenesin (Guaifenesin 600 Mg Tabcr) 600 mg PO Q12 [facility] Stop: 10/10/23 10:29 Last Admin: 09/10/23 20:59 Dose: 600 mg Hydralazine HCl (Hydralazine 10 Mg Tab) 10 mg PO BID [facility] Stop: 10/10/23 08:59 Last Admin: 09/10/23 08:38 Dose: 10 mg Heparin Sodium/Dextrose (Heparin Sodium/Dextrose) 25,000 units in 500 mls @ 0 mls/hr IV .Q0M [facility]; Protocol Stop: 10/10/23 02:59 Last Titration: 09/11/23 06:40 Dose: 0 units/hr, 0 mls/hr Dexamethasone 6 mg/ Syringe 1.5 mls @ 1 mls/min IV Q24H CLAUDIA Stop: 10/10/23 08:59 Last Admin: 09/10/23 08:39 Dose: 1 mls/min Ipratropium [place] (Ipratropium [place] Hfa Inhaler) 2 puffs INH QIDR CLAUDIA Stop: 10/10/23 06:59 Last Admin: 09/11/23 07:46 Dose: 2 puffs Levalbuterol HCl (Levalbuterol 1.25mg/0.5ml Neb) 1.25 mg NEB Q4H PRN; Protocol PRN Reason: Shortness Of Breath Or Wheezing Stop: 10/10/23 04:33 Lisinopril (Lisinopril 2.5 Mg Tab) 2.5 mg PO DAILY CLAUDIA Stop: 10/10/23 08:59 Multivitamins/Minerals (Cerovite Adv Formula Tab) 1 tab PO DAILY CLAUDIA Stop: 10/10/23 08:59 Last Admin: 09/10/23 08:38 Dose: 1 tab Nitroglycerin (Nitroglycerin Sl 0.4 Mg/Tab Tab) 0.4 mg SL Q5M PRN PRN Reason: Chest Pain Stop: 10/10/23 04:33 Nitroglycerin (Nitroglycerin 2% Ointment 30gm Tube) 1 inch EXT Q6 CLAUDIA Stop: 10/10/23 11:14 Last Admin: 09/11/23 05:39 Dose: 1 inch Pantoprazole Sodium (Pantoprazole 40 Mg Tab) 40 mg PO DAILYBB [facility] Stop: 10/10/23 06:29 Last Admin: 09/11/23 05:38 Dose: 40 mg Rosuvastatin Calcium (Rosuvastatin Calcium 10 Mg Tab) 10 mg PO HS [facility] Stop: 10/10/23 20:59 Last Admin: 09/10/23 20:58 Dose: 10 mg Sodium Chloride (Sodium Chloride 0.65% Na Soln 45 Ml ([place])) 1 sprays NA BID PRN PRN Reason: NASAL DRYNESS Stop: 10/10/23 04:33 Tamsulosin HCl (Tamsulosin Hcl 0.4 Mg Cap) 0.4 mg PO BID [facility] Stop: 10/10/23 08:59 Last Admin: 09/10/23 20:58 Dose: 0.4 mg Triamcinolone Acetonide (Triamcinolone Acet 0.1% Oint 15 Gm Tube) 1 appln TOP BID PRN PRN Reason: Skin Irritation Stop: 10/10/23 04:33
--- NOTE | 2023-09-11 08:25 | Pulmonology Progress Note ---
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 After heparin infusion patient developed scant amount of hemoptysis admixed with sputum. He is COVID-positive and has intermittent scant hemoptysis associated with heparin. Recommendations: 1. Hemoptysis: This is relatively scant and I do not think represents a contraindication to heparin given his non-ST elevation myocardial infarction. In addition, Plavix required, I think restarting it would be appropriate. 2. Hypoxemic respiratory failure with dyspnea: I will repeat chest x-ray today. His initial chest x-ray demonstrated pulmonary vascular engorgement. Recommend repeating his BNP level. Diuretics would be recommended however the patient does have chronic kidney disease with worsening creatinine. Development of cardiorenal syndrome is possible. 3. COVID-positive: Patient is currently on dexamethasone 6 mg every 24. Would continue to complete a 7 to 10-day course based on clinical response. If the patient's hypoxemia resolves, additional steroids may not be required. Does appear contraindicated given his kidney function. 4. Severe pulmonary hypertension: Again suspect due to elevated LVEDP chronic kidney disease and hypoxemia. No role for right heart catheterization or pulmonary vasodilators at this point time. Continue diuretics Overall the patient's cardiovascular issues appear to be more of an impending issue with regards to anticoagulation than his scant hemoptysis. Would recommend treating acute coronary syndrome and will manage complications should they develop Patient is established and follows with [facility] in the outpatient setting. Total of 50 minutes was spent in evaluation management coordinating care for this patient. Case was discussed with the bedside nurse. Admission and Anticipated Discharge Date Admission Date: September 10, 2023 Subjective Patient seen and examined. EMR reviewed. Discussed with off going weatherization installer. The patient continues to experience some shortness of breath with physical activity. He had 2 episodes of coughing last night and his heparin was again discontinued. He states that he coughed up a small amount of blood-tinged phlegm. He has not had any additional chest pain. He does not report any significant fevers chills or night sweats. He does feel short of breath with any significant ambulation. Review of Systems 2 Constitutional: no fever, no chills, no sweats, no fatigue and no weight loss Ear, Nose, Mouth, Throat: no nasal congestion, no nasal discharge and no epistaxis Respiratory: + cough, + dyspnea and + hemoptysis Cardiovascular: no chest pain with activity, no palpitations and no edema Gastrointestinal: no abdominal pain, no nausea, no vomiting and no dysphagia Musculoskeletal: no joint pain and no myalgia Integumentary: no rash and no lesions Neurologic: no generalized weakness, no tingling, no paresthesia, no dizziness and no syncope Psychiatric: no anxiety Endocrine: no polydipsia and no cold intolerance Hematologic / Lymphatic: no easy bleeding and no lymphadenopathy Physical Exam 2 Constitutional: WD/WN, vitals as above Neck: trachea midline, no thyromegaly Respiratory: normal respiratory effort, lungs clear to auscultation Cardiovascular: RRR, no murmur, no edema Gastrointestinal (Abdomen): normal bowel sounds, soft, nontender, no hepatosplenomegaly Musculoskeletal: Extremities: extremities normal to inspection Skin: no rashes, warm and dry Neurologic: Nonfocal exam Lymphatic: no cervical lymphadenopathy Results & Data Results & Data Vital Signs (Past 12 Hours) Vital Signs Temp Pulse Pulse Resp BP Pulse Ox O2 Del Method 09/11/23 07:47 80 18 95 Nasal Cannula 09/11/23 05:39 121/60 09/11/23 04:10 36.4 C L 66 18 125/65 96 Nasal Cannula 09/10/23 23:55 36.4 C L 66 18 113/61 96 Nasal Cannula 09/10/23 22:25 67 O2 Flow Rate 09/11/23 07:47 2 09/11/23 05:39 09/11/23 04:10 2 09/10/23 23:55 09/10/23 22:25 Laboratory Results 09/10/23 05:38 09/10/23 05:38 PG Care Time/CCT Total # of Minutes Spent Total Time Spent with Patient: Total time spent is greater than 50% in coordination of care (as documented) at patient's floor/unit and/or counseling patient: Coding Level of Care Code 11169 SUB INP/OBS CARE 3/50MIN Diagnoses Cough with hemoptysis R04.2 NSTEMI (non-ST elevated myocardial infarction) I21.4 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
--- NOTE | 2023-09-11 08:48 | Hospitalist Progress Note ---
Date of Service September 11, 2023 Assessment & Plan (1) NSTEMI (non-ST elevated myocardial infarction): Plan: Mr. 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 Patient's course is complicated by hemoptysis from severe pulm congestion/hypertension, CKD, ad NSTEMI. It has been decided to pursue conservative management given notable kidney disease. #NSTEMI #Typical Chest pain -Troponin peaked 48678 -Resolves with nitro, continue prn -Continue asa -Cardiology following, appreciate recs -Stop Heparin, start plavix -Conservative management 2/2 renal dysfunction #Acute on chronic respiratory failure with hypoxia #nocturnal hypoxia -Multifactorial given HFrEF and restrictive/interstitial lung disease -wean o2 as able #Hemoptysis #Severe pulm hypertension -Blood tinged sputum, ongoing pulm history, [facility] -Pulm consult give complicated presentation for any further interventions -09/10 started on TXA nebs, discontinued -No role for right heart catheterization or pulmonary vasodilators at this point time. Continue diuretics per pulm recommendations #Acute HFrEF (LVEF 25-30% on 03/2023, recovered & 08/2023 ]) [facility] limited echo in 08/15/2023 revealed improved EF previously to 40-45% after experiencing "stress induced v ischemic cardiomyopathy in 03/2023) - Home diuretics: Torsemide 50mg qam - GDMT: *BetaB: Stop Coreg 12.5mg BID; start Metoprolol XL 25mg *RAAS: discontinue acei *Nasir: avoid 2/2 renal function *Vasodilator: Stop Hydralazine 10mg BID, start Imdur 10mg BID *SGLT: hold 2/2 renal function Jardiance 10mg daily *ICD: Address outpatient - s/p 40mg IV lasix in the ED - Discontinue IV lasix and resume home torsemide 50mg - Strict I/Os, daily weights #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 *improved -potentially related to CRS -Transition back to PO torsemide -Strict IOs -Nephrology consulted---no clear history with nephro, warrants review to optimize if able renal function or understand options #[place] pneumoconiosis #Pulmonary nodule #Bronchiectasis #Restrictive lung disease -history of Stenotrophomonas s/p treatment on levaquin -Continue albuterol, atrovent inhalers -Flutter valve and mucinex bid #COVID positive -exacerbation of ILD with COVID back in 03/2023 -Symptomatic control -Dexamethone 6mg qd for 7 days, now on room air -Monitor for delirium/psychosis, low threshold to d/c #HLD -COntinue ASA and statin DVT SCDS Cardiology following Admission and Anticipated Discharge Date Admission Date: September 10, 2023 Subjective 24 hour events: Hemoptysis overnight Improved saturations Patient states he is coughing occasional "clots" but does not feel like he is struggling for air He reports intermittent chest tightness Denies nausea vomiting. Verbalizes with good understanding the "complicated situation" he is in Physical Exam Constitutional: WD/WN, vitals as above Respiratory: normal respiratory effort, lungs clear to auscultation Cardiovascular: RRR, no murmur, no edema Results & Data Results & Data Vital Signs (Past 12 Hours) Vital Signs Temp Pulse Pulse Resp BP Pulse Ox O2 Del Method 09/11/23 08:39 67 09/11/23 08:32 Nasal Cannula 09/11/23 07:47 80 18 95 Nasal Cannula 09/11/23 05:39 121/60 09/11/23 04:10 36.4 C L 66 18 125/65 96 Nasal Cannula 09/10/23 23:55 36.4 C L 66 18 113/61 96 Nasal Cannula 09/10/23 22:25 67 O2 Flow Rate 09/11/23 08:39 09/11/23 08:32 2 09/11/23 07:47 2 09/11/23 05:39 09/11/23 04:10 2 09/10/23 23:55 09/10/23 22:25 Laboratory Results Short CBC 09/11/23 Range/Units 08:57 WBC 13.99 H (4.8-10.8) K/ul Hgb 12.1 L (14.0-18.0) g/dl Hct 35.8 L (42.0-52.0) % Plt Count 237 (130-400) K/uL BMP 09/11/23 08:57 Sodium 135 L Potassium 4.0 Chloride 94 L Carbon Dioxide 28 BUN 70 H Creatinine 2.26 H D Glucose 130 H Calcium 9.9 Medications Administered Home Medications Medication Instructions Recorded Confirmed Last Taken aspirin 81 mg tablet,delayed 81 mg PO DAILY 05/21/19 09/09/23 03/28/23 release tamsulosin 0.4 mg capsule 0.4 mg PO BID 05/21/19 09/09/23 03/28/23 triamcinolone acetonide 0.1 % 1 applic topical BID PRN Skin 05/21/19 09/09/23 03/28/23 topical ointment Irritation multivitamin-ferrous 1 tab PO DAILY 05/22/19 09/09/23 03/28/23 fumarate-folic acid 18 mg-400 mcg tablet (Centrum Complete) carvedilol 12.5 mg tablet 12.5 mg PO BID 05/26/20 09/09/23 03/28/23 citalopram 10 mg tablet 10 mg PO QAM 03/06/23 09/09/23 03/28/23 cyanocobalamin (vitamin B-12) 100 100 mcg PO QAM 03/06/23 09/09/23 03/28/23 mcg tablet (Vitamin B-12) famotidine 20 mg tablet 20 mg PO QAM 03/06/23 09/09/23 03/28/23 guaifenesin 600 mg tablet, 600 mg PO Q12H PRN Cough 03/06/23 09/09/23 Unknown extended release 12 hr ipratropium bromide 17 2 puff inhalation QID 03/06/23 09/09/23 03/28/23 mcg/actuation HFA aerosol inhaler (Atrovent HFA) pantoprazole 20 mg tablet,delayed 20 mg PO DAILYBB 03/06/23 09/09/23 03/28/23 release sodium chloride 0.65 % nasal spray 1 spray intranasal BID PRN NASAL 03/06/23 09/09/23 Unknown aerosol (Saline Nasal) DRYNESS empagliflozin 10 mg tablet 10 mg PO QAM 09/09/23 09/09/23 Unknown (Jardiance) fluticasone propionate 50 2 sprays intranasal QAM 09/09/23 09/09/23 Unknown mcg/actuation nasal spray,suspension hydralazine 10 mg tablet 10 mg PO AMPM 09/09/23 09/09/23 Unknown isosorbide dinitrate 10 mg tablet 10 mg PO AMHS 09/09/23 09/09/23 Unknown lisinopril 2.5 mg tablet 2.5 mg PO DAILY 09/09/23 09/09/23 Unknown rosuvastatin 10 mg tablet 10 mg PO HS 09/09/23 09/09/23 Unknown torsemide 100 mg tablet 50 mg PO QAM 09/09/23 09/09/23 Unknown Active Medications Generic Name Dose Route Start Last Admin Trade Name Freq PRN Reason Stop Dose Admin Aspirin 81 mg 09/10/23 09:00 09/11/23 10:03 Aspirin 81 Mg Ectab PO 10/10/23 08:59 81 mg DAILY CLAUDIA Administration Citalopram Hydrobromide 10 mg 09/10/23 09:00 09/11/23 10:03 Citalopram 20 Mg Tab PO 10/10/23 08:59 10 mg QAM CLAUDIA Administration Clopidogrel Bisulfate 75 mg 09/11/23 09:00 09/11/23 11:04 Clopidogrel Bisulfate 75 Mg Tab PO 10/11/23 08:59 75 mg QAM CLAUDIA Administration Cyanocobalamin 100 mcg 09/10/23 09:00 09/11/23 10:04 Cyanocobalamin (B-12) 100 Mcg Tablet PO 10/10/23 08:59 100 mcg QAM CLAUDIA Administration Famotidine 20 mg 09/10/23 09:00 09/11/23 10:05 Famotidine 20 Mg Tab PO 10/10/23 08:59 20 mg QAM CLAUDIA Administration Fluticasone Propionate 2 sprays 09/10/23 09:00 09/11/23 10:02 Fluticasone Propionate Na Spr 16 Gm Btl NA 10/10/23 08:59 2 sprays QAM CLAUDIA Administration Guaifenesin 600 mg 09/10/23 10:30 09/11/23 10:05 Guaifenesin 600 Mg Tabcr PO 10/10/23 10:29 600 mg Q12 CLAUDIA Administration Dexamethasone 6 mg/ Syringe 1.5 mls @ 1 mls/min 09/10/23 09:00 09/11/23 10:18 IV 10/10/23 08:59 1 mls/min Q24H CLAUDIA Administration Ipratropium [place] 2 puffs 09/10/23 07:00 09/11/23 15:06 Ipratropium [place] Hfa Inhaler INH 10/10/23 06:59 2 puffs QIDR CLAUDIA Administration Multivitamins/Minerals 1 tab 09/10/23 09:00 09/11/23 10:06 Cerovite Adv Formula Tab PO 10/10/23 08:59 1 tab DAILY CLAUDIA Administration Nitroglycerin 1 inch 09/10/23 11:15 09/11/23 11:04 Nitroglycerin 2% Ointment 30gm Tube EXT 10/10/23 11:14 1 inch Q6 CLAUDIA Administration Pantoprazole Sodium 40 mg 09/10/23 06:30 09/11/23 05:38 Pantoprazole 40 Mg Tab PO 10/10/23 06:29 40 mg DAILYBB CLAUDIA Administration Rosuvastatin Calcium 10 mg 09/10/23 21:00 09/10/23 20:58 Rosuvastatin Calcium 10 Mg Tab PO 10/10/23 20:59 10 mg HS CLAUDIA Administration Tamsulosin HCl 0.4 mg 09/10/23 09:00 09/11/23 10:06 Tamsulosin Hcl 0.4 Mg Cap PO 10/10/23 08:59 0.4 mg BID CLAUDIA Administration
[2023-09-11 09:34] LABS: Hematocrit (blood only) 35.8 % (42.0-52.0); Hemoglobin 12.1 g/dl (14.0-18.0); Mean Corpuscular Hemoglobin 29.6 pg (25.0-34.0); Mean Corpuscular Hgb Conc 33.8 g/dL (32.0-36.0); Mean Corpuscular Volume 87.5 fL (80.0-100.0); Mean Platelet Volume 10.8 fL (9.4-12.4); Platelet Count 237 K/uL (130-400); RDW Coefficient of Variation 14.3 % (11.5-14.5); RDW Standard Deviation 45.9 fL (36.4-46.3); Red Blood Count 4.09 M/uL (4.70-6.10); White Blood Count 13.99 K/ul (4.8-10.8)
[2023-09-11 09:50] LABS: Calcium 9.9 mg/dl (8.6-10.3); Creatinine Clr Calc Pharmacy 26.3 ml/min; Est GFR (African American) 28.9 ml/min; Magnesium 2.3 mg/dl (1.7-2.4); Phosphorus 5.3 mg/dl (2.5-4.9)
[2023-09-11] MEDS: FUROSEMIDE 40 MG/4 ML VIAL IV SCH (09:59)
[2023-09-11] MEDS: FLUTICASONE PROPIONATE NA SPR 16 GM BTL SCH (10:02)
[2023-09-11 10:03] LABS: ANTI-Xa, UFH(UnfractionatedHep < 0.10 IU/ml (0.3-0.7)
[2023-09-11] MEDS: ASPIRIN 81 MG ECTAB PO SCH (10:03)
[2023-09-11] MEDS: CITALOPRAM 20 MG TAB PO SCH (10:03)
[2023-09-11] MEDS: CYANOCOBALAMIN (B-12) 100 MCG TABLET PO SCH (10:04)
[2023-09-11] MEDS: guaiFENesin 600 MG TABCR PO SCH ×2 (10:05→21:03)
[2023-09-11] MEDS: FAMOTIDINE 20 MG TAB PO SCH (10:05)
[2023-09-11] MEDS: TAMSULOSIN HCL 0.4 MG CAP PO SCH ×2 (10:06→21:03)
[2023-09-11] MEDS: CEROVITE ADV FORMULA TAB PO SCH (10:06)
[2023-09-11] MEDS: carvediloL 12.5 MG TAB PO SCH (10:08)
[2023-09-11] MEDS: dexAMETHasone 6 MG in SYRINGE 0 ML IV SCH (10:18)
--- NOTE | 2023-09-11 10:47 | XRay Report ---
SINGLE VIEW CHEST CLINICAL HISTORY: Hypoxia. FINDINGS: 2 AP, portable, upright chest radiographs are compared to study dated 09/09/2023 and correla dacia with chest CT dated 04/04/2023. The heart is enlarged noting atherosclerotic calcification of the t horacic aorta. There is pulmonary vascular congestion. There are small bilateral pleural effusions wi th dependent consolidation. Innumerable pulmonary nodules are similar previous. Asymmetric bilateral airspace opacities are noted, greatest in the left midlung. No pneumothorax is identify. The skeletal structures are osteopenic. There is chronic deformity of the right clavicle. IMPRESSION: 1. Cardiomegaly with evidence of congestive failure. 2. There are asymmetric bilateral airspace opacities, greatest on the left. This could represent pulm onary edema and/or a mild infectious/inflammatory pneumonitis. Clinical correlation will be required and radiographic follow-up to resolution is recommend. 3. Small pleural effusions with dependent consolidation. ACT 112: Negative or not required by law. Electronically signed by: Margarito Skinner M.D. 09/11/2023 10:45 AM
[2023-09-11] MEDS: CLOPIDOGREL BISULFATE 75 MG TAB PO SCH (11:04)
[2023-09-11] MEDS ORDERED: POTASSIUM CHLORIDE CRTAB 20 MEQ TABCR PO STA (16:19)
[2023-09-11] MEDS: ROSUVASTATIN CALCIUM 10 MG TAB PO SCH (21:04)
[2023-09-12] MEDS: NITROGLYCERIN 2% OINTMENT 30GM TUBE EXT SCH ×3 (00:37→12:33)
[2023-09-12] MEDS: PANTOprazole 40 MG TAB PO SCH (05:37)
[2023-09-12 06:21] LABS: Basophils # (auto) 0.01 K/uL (0.00-0.20); Basophils % (auto) 0.1 %; Hemoglobin 10.9 g/dl (14.0-18.0); Immature Granulocytes # (auto) 0.03 K/uL (0.01-0.20); Immature Granulocytes % (auto) 0.3 %; Mean Corpuscular Hemoglobin 28.9 pg (25.0-34.0); Mean Corpuscular Volume 87.5 fL (80.0-100.0); Mean Platelet Volume 10.7 fL (9.4-12.4); Monocytes # (auto) 0.75 K/uL (0.11-0.59); Monocytes % (auto) 6.7 %; Neutrophils # (auto) 9.58 K/uL (1.40-6.50); Neutrophils % (auto) 84.9 %; Platelet Count 220 K/uL (130-400); RDW Coefficient of Variation 14.1 % (11.5-14.5); RDW Standard Deviation 45.3 fL (36.4-46.3); Red Blood Count 3.77 M/uL (4.70-6.10); White Blood Count 11.27 K/ul (4.8-10.8)
[2023-09-12 06:31] LABS: BUN Creatinine Ratio 34.9 (10-20); Calcium 9.4 mg/dl (8.6-10.3); Creatinine Clr Calc Pharmacy 27.6 ml/min; Est GFR (African American) 30.7 ml/min; Est GFR (Non-African American) 26.5 ml/min; Magnesium 2.2 mg/dl (1.7-2.4); Phosphorus 4.9 mg/dl (2.5-4.9); Potassium 4.1 mmol/L (3.5-5.1)
[2023-09-12 06:49] LABS: Ferritin 562.3 ng/ml (8-388)
[2023-09-12] MEDS: IPRATROPIUM BROMIDE HFA INHALER INH SCH ×3 (07:45→15:59)
[2023-09-12] MEDS: ASPIRIN 81 MG ECTAB PO SCH (08:36)
[2023-09-12] MEDS: FAMOTIDINE 20 MG TAB PO SCH (08:36)
[2023-09-12] MEDS: CYANOCOBALAMIN (B-12) 100 MCG TABLET PO SCH (08:36)
[2023-09-12] MEDS: CEROVITE ADV FORMULA TAB PO SCH (08:36)
[2023-09-12] MEDS: guaiFENesin 600 MG TABCR PO SCH (08:37)
[2023-09-12] MEDS: TAMSULOSIN HCL 0.4 MG CAP PO SCH (08:37)
[2023-09-12] MEDS: FLUTICASONE PROPIONATE NA SPR 16 GM BTL SCH (08:38)
[2023-09-12] MEDS: CLOPIDOGREL BISULFATE 75 MG TAB PO SCH (08:38)
[2023-09-12] MEDS: CITALOPRAM 20 MG TAB PO SCH (08:39)
[2023-09-12 08:54] LABS: Total Protein Urine Random 11.3 mg/dl (0-11.9)
--- NOTE | 2023-09-12 08:55 | Electrocardiogram Report ---
Test Reason : Blood Pressure : / mmHG Vent. Rate : 067 BPM Atrial Rate : 066 BPM P-R Int : 216 ms QRS Dur : 098 ms QT Int : 454 ms P-R-T Axes : 000 -09 109 degrees QTc Int : 479 ms Sinus rhythm with 1st degree A-V block Old Septal infarct Abnormal ECG When compared with ECG of 10-SEP-2023 06:22, ST depression in Anterior leads no longer present Confirmed by Cecil May ([id number]) on 09/12/2023 8:54:21 AM Referred By: REFERRED SELF Confirmed By:Cecil May
--- NOTE | 2023-09-12 08:57 | Electrocardiogram Report ---
Test Reason : Blood Pressure : / mmHG Vent. Rate : 077 BPM Atrial Rate : 077 BPM P-R Int : 170 ms QRS Dur : 092 ms QT Int : 430 ms P-R-T Axes : 075 -21 094 degrees QTc Int : 486 ms Normal sinus rhythm Old Septal infarct Abnormal ECG When compared with ECG of 11-SEP-2023 06:04, PA interval has decreased Confirmed by Cecil May ([id number]) on 09/12/2023 8:56:36 AM Referred By: REFERRED SELF Confirmed By:Cecil Mya
[2023-09-12 08:59] LABS: Creatinine Urine Random 78.5 mg/dl; Protein Creatinine Ratio Urine 0.1 (0-0.2)
[2023-09-12] MEDS ORDERED: TORSEMIDE 100 MG TAB PO SCH (09:00)
[2023-09-12] MEDS ORDERED: ISOSORBIDE MONO EXTENDED REL 30 MG TABCR PO SCH (09:00)
[2023-09-12] MEDS ORDERED: METOPROLOL SUCC 25MG EXT REL TAB PO SCH (09:00)
[2023-09-12] MEDS: dexAMETHasone 6 MG in SYRINGE 0 ML IV SCH (09:04)
--- NOTE | 2023-09-12 10:33 | Nephrology Consultation ---
Date of Consultation September 12, 2023 Assessment & Plan (1) Acute on chronic renal failure: presented with creatinine 2.8. improved to 2.2 today, nearly resolved. nonoliguric; cardiorenal syndrome +/- covid related stage one nonoliguric TAYA on CKD 3B; 100 mg proteinuria. not a cardiac cath candidate currently d/t renal function. -renal u/s and UA can be done as OP >> IP orders for these cancelled For d/c home today w/ close OP follow up. Care coordinated w/ Perla Canas and David. NEPHROLOGY DISCHARGE RECS -continue torsemide 50 mg daily -OK to resume low dose lisinopril at d/c -would hold jardiance at d/c; cardiology and nephro can decide when/what SGLT2i to resume -needs hospital d/c appt w/ me in 2-3 weeks preferably [facility]; bmp, UACM, ACR, renal u/s, phos, 25 OHD prior to appt 3-5 days and to be ordered by neph RN (2) Stage 3b chronic kidney disease (CKD): CKD 3B w/ baseline creatinine 1.7-2 in 2022, most recently jun 2023. -recommend OP f/u given cardiopulmonary comorbidities History of Present Illness Reason for Consultation: CKD4, est w/ nephro Requesting Physician: Dr Canas Attending Physician: Gwen Canas MD History of Present Illness 88 y/o M whom I'm asked to see for CKD 4 was admitted 09/10 w/ Covid and an NSTEMI after presenting w/ exertional chest pain resolved w/ NTG. 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 He has CKD 3b w/ creatinine running 1.7-2 as outpatient in 2022, most recent check in June. No OP nephro care. Tells me his cardiomyopathy was caused originally by covid booster. Cardiology evaluated the patient and is following closely > found to have acute on chronic systolic HF, NSTEMI for conservative mgt d/t renal function; also developed scant/some hemoptysis and heparin held (though pulmonary does not consider this a contraindication). yesterday IV lasix was changed back to his customary torsemide 50 mg daily and K restarted; imdur titrated. pulmonary following closely as well and concerned for borderline overload. He is receiving dexamethasone for COVID. Has chest pain intermittently taz w/ belching; none today. no edema. no sob or cough moving about in room. denies new/worrisome voiding concerns. no n/v. rest of 12 system review otherwise negative. primary service is preparing to d/c pt home w/ close OP follow up. Allergies Allergy/AdvReac Type Severity Reaction Status Date / Time No Known Allergies Allergy Verified 09/09/23 23:18 Home Medications Medication Instructions Recorded Confirmed Type aspirin 81 mg tablet,delayed 81 mg PO DAILY 05/21/19 09/09/23 History release tamsulosin 0.4 mg capsule 0.4 mg PO BID 05/21/19 09/09/23 History triamcinolone acetonide 0.1 % 1 applic topical BID PRN Skin 05/21/19 09/09/23 History topical ointment Irritation multivitamin-ferrous 1 tab PO DAILY 05/22/19 09/09/23 History fumarate-folic acid 18 mg-400 mcg tablet (Centrum Complete) citalopram 10 mg tablet 10 mg PO QAM 03/06/23 09/09/23 History cyanocobalamin (vitamin B-12) 100 100 mcg PO QAM 03/06/23 09/09/23 History mcg tablet (Vitamin B-12) famotidine 20 mg tablet 20 mg PO QAM 03/06/23 09/09/23 History guaifenesin 600 mg tablet, 600 mg PO Q12H PRN Cough 03/06/23 09/09/23 History extended release 12 hr ipratropium bromide 17 2 puff inhalation QID 03/06/23 09/09/23 History mcg/actuation HFA aerosol inhaler (Atrovent HFA) pantoprazole 20 mg tablet,delayed 20 mg PO DAILYBB 03/06/23 09/09/23 History release sodium chloride 0.65 % nasal spray 1 spray intranasal BID PRN NASAL 03/06/23 09/09/23 History aerosol (Saline Nasal) DRYNESS empagliflozin 10 mg tablet 10 mg PO QAM 09/09/23 09/09/23 History (Jardiance) fluticasone propionate 50 2 sprays intranasal QAM 09/09/23 09/09/23 History mcg/actuation nasal spray,suspension rosuvastatin 10 mg tablet 10 mg PO HS 09/09/23 09/09/23 History clopidogrel 75 mg tablet 75 mg PO QAM #30 tabs 09/12/23 Rx dexamethasone 6 mg tablet 6 mg PO DAILY #5 tabs 09/12/23 Rx isosorbide mononitrate 60 mg 60 mg PO QAM #30 tabs 09/12/23 Rx tablet,extended release 24 hr metoprolol succinate 25 mg 25 mg PO QAM #30 tabs 09/12/23 Rx tablet,extended release 24 hr nitroglycerin 0.4 mg sublingual 0.4 mg sublingual Q5M PRN chest 09/12/23 Rx tablet (Nitrostat) pain #30 tabs torsemide 100 mg tablet 50 mg (1/2 x 100 mg) PO QAM #30 09/12/23 Rx tabs Patient History Medical History (Updated 09/12/23 @ 13:35 by Cande Soni MD, PhD) Stage 3b chronic kidney disease (CKD) Cough with hemoptysis Bilateral pleural effusion Dyspnea on exertion HFrEF (heart failure with reduced ejection fraction) History of prostate cancer s/p XRT with brachy boost HTN (hypertension) Restrictive lung disease 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, coal, workers' Prostate cancer (11/03/14) "Rising PSA to 7.46 Status post ultrasound-guided biopsies revealing adenocarcinoma Gabriela 4+3, biopsy stage T2c Initiation of hormone suppression prior to prostate seed implant, short course Status post prostate seed implant 02/03/2015 with cesium 131 received 8500 cGy 50 seeds placed Status post completion of IMRT/IGRT 04/28/2015 received 4500 cGy " On 05/26/15 14:44 Shira Goldberg wrote "Rising PSA to 7.46 Status post ultrasound-guided biopsies revealing adenocarcinoma Lando 4+3, biopsy stage T2c Initiation of hormone suppression prior to prostate seed implant Status post prostate seed implant 02/03/2015 with cesium 131 received 8500 cGy 50 seeds placed Status post completion of IMRT/IGRT 04/28/2015 received 4500 cGy " On 05/01/15 12:43 Sandra Marquez wrote "Rising PSA to 7.46 Status post ultrasound-guided biopsies revealing adenocarcinoma Gabriela 4+3, biopsy stage T2c Initiation of hormone suppression Status post prostate seed implant 02/03/2015 with cesium 131 received 8500 cGy 50 seeds placed Status post completion of IMRT/IGRT 04/28/2015 received 4500 cGy " On 03/17/15 15:55 Sandra Marquez wrote "Rising PSA to 7.46 Status post ultrasound-guided biopsies revealing adenocarcinoma Gabriela 4+3, biopsy stage T2c Initiation of hormone suppression Status post prostate seed implant 02/03/2015 with cesium 131 received 8500 cGy 50 seeds placed Now for completion of IMRT/IGRT" Surgical History History of appendectomy H/O shoulder surgery Social History Smoking Status: Former smoker Tobacco Type: Cigarettes Second Hand Exposure: No; Do You Dip or Chew Tobacco: No; Tobacco Cessation Education Requested by Patient: No Hx Alcohol Use: No Hx Substance Use: No Preferred Language: Nauruan Communication Ability: Effective Digital Computer Systems Analyst Required: No Beliefs That Will Affect Care: None marital status: / Current Living Situation: Alone Other Information That Helps Us Care for You: No Feels Safe at Home: Yes Safety Concerns: Feels Safe At This Time Assistive Devices: Cane, Oxygen - at Night and Walker Assistive Devices Comment: 2L at night Physical Exam 2 Constitutional: well developed, well nourished, + thin, + frail appearing, cooperative and comfortable; no acute distress Eyes: EOM intact bilaterally ENMT: Ears: no external ear abnormality Nose: no external nose abnormality Mouth: + dry oral mucous membranes Neck: no nuchal rigidity Respiratory: normal respiratory effort Auscultation: + diminished lung sounds (taz R posterior lower lobe) and + crackles (fine L base posterior) Cardiovascular: Heart Sounds: normal S1, normal S2 and + murmur E xtremities: no edema Gastrointestinal (Abdomen): Inspection/Auscultation: normal bowel sounds P ercussion/Palpation: abdomen soft; abdomen nontender Musculoskeletal: Extremities: strength 5/5 throughout Skin: no rashes, warm and dry Neurologic: kang, fluent speech, no tremor Psychiatric: Orientation: alert and oriented x 3 Results & Data Vital Signs (Past 12 Hours) Vital Signs Temp Pulse Pulse Resp BP Pulse Ox O2 Del Method 09/12/23 08:48 80 09/12/23 07:46 80 16 96 Room Air 09/12/23 07:45 Room Air 09/12/23 07:27 36.9 C 75 18 117/65 93 Room Air 09/12/23 05:00 36.4 C L 73 16 135/74 99 Nasal Cannula 09/11/23 23:00 36.4 C L 71 18 115/67 96 Room Air O2 Flow Rate 09/12/23 08:48 09/12/23 07:46 09/12/23 07:45 0 09/12/23 07:27 09/12/23 05:00 2 09/11/23 23:00 Laboratory Results 09/12/23 05:31 09/12/23 05:31 Diagnostic Findings cxr (image reviewed personally) ongoing vasc congestion
--- NOTE | 2023-09-12 13:25 | Hospitalist Progress Note ---
Date of Service September 12, 2023 Assessment & Plan (1) NSTEMI (non-ST elevated myocardial infarction): Plan: Mr. 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 Patient's course is complicated by hemoptysis from severe pulm congestion/hypertension, CKD, ad NSTEMI. It has been decided to pursue conservative management given notable kidney disease. Patient overall improving and no longer requiring oxygen. Patient looking like he will need Home health services. #NSTEMI #Typical Chest pain -Troponin peaked 74769 -Resolves with nitro, continue prn -Continue asa -Cardiology following, appreciate recs -Stop Heparin, start plavix -Conservative management 2/2 renal dysfunction #Acute on chronic respiratory failure with hypoxia #nocturnal hypoxia -Multifactorial given HFrEF and restrictive/interstitial lung disease -wean o2 as able #Hemoptysis #Severe pulm hypertension -Blood tinged sputum, ongoing pulm history, follows [facility] [place] -Pulm consult give complicated presentation for any further interventions -09/10 started on TXA nebs, discontinued -No role for right heart catheterization or pulmonary vasodilators at this point time. Continue diuretics per pulm recommendations #Acute HFrEF (LVEF 25-30% on 03/2023, recovered & 08/2023 ]) [facility] limited echo in 08/15/2023 revealed improved EF previously to 40-45% after experiencing "stress induced v ischemic cardiomyopathy in 03/2023) - Home diuretics: Torsemide 50mg qam - GDMT: *BetaB: Stop Coreg 12.5mg BID; start Metoprolol XL 25mg *RAAS: discontinue acei *Nasir: avoid 2/2 renal function *Vasodilator: Stop Hydralazine 10mg BID, start Imdur 10mg BID *SGLT: hold 2/2 renal function Jardiance 10mg daily *ICD: Address outpatient - s/p 40mg IV lasix in the ED - Discontinue IV lasix and resume home torsemide 50mg - Strict I/Os, daily weights #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 *improved -potentially related to CRS -Continue PO torsemide -Strict IOs -Nephrology consulted---no clear history with nephro, warrants review to optimize if able renal function or understand options #[place] pneumoconiosis #Pulmonary nodule #Bronchiectasis #Restrictive lung disease -history of Stenotrophomonas s/p treatment on levaquin -Continue albuterol, atrovent inhalers -Flutter valve and mucinex bid #COVID positive -exacerbation of ILD with COVID back in 03/2023 -Symptomatic control -Dexamethone 6mg qd for 7 days, now on room air -Monitor for delirium/psychosis, low threshold to d/c #HLD -COntinue ASA and statin DVT SCDS Cardiology following Admission and Anticipated Discharge Date Admission Date: September 10, 2023 Subjective NAEO Reports feeling somewhat improved from respiratory standpoint ambulating in room Physical Exam Constitutional: WD/WN, vitals as above Respiratory: normal respiratory effort, lungs clear to auscultation on room air on exam Cardiovascular: RRR, no murmur, no edema Results & Data Results & Data Vital Signs (Past 12 Hours) Vital Signs Temp Pulse Pulse Resp BP Pulse Ox O2 Del Method 09/12/23 12:00 36.8 C 83 16 121/73 96 Room Air 09/12/23 11:48 57 L 16 95 Room Air 09/12/23 08:48 80 09/12/23 07:46 80 16 96 Room Air 09/12/23 07:45 Room Air 09/12/23 07:27 36.9 C 75 18 117/65 93 Room Air 09/12/23 05:00 36.4 C L 73 16 135/74 99 Nasal Cannula O2 Flow Rate 09/12/23 12:00 09/12/23 11:48 09/12/23 08:48 09/12/23 07:46 09/12/23 07:45 0 09/12/23 07:27 09/12/23 05:00 2 Laboratory Results Short CBC 09/12/23 Range/Units 05:31 WBC 11.27 H (4.8-10.8) K/ul Hgb 10.9 L (14.0-18.0) g/dl Hct 33.0 L (42.0-52.0) % Plt Count 220 (130-400) K/uL BMP 09/12/23 05:31 Sodium 134 L Potassium 4.1 Chloride 95 L Carbon Dioxide 28 BUN 75 H Creatinine 2.15 H Glucose 128 H Calcium 9.4 Medications Administered Home Medications Medication Instructions Recorded Confirmed Last Taken aspirin 81 mg tablet,delayed 81 mg PO DAILY 05/21/19 09/09/23 03/28/23 release tamsulosin 0.4 mg capsule 0.4 mg PO BID 05/21/19 09/09/23 03/28/23 triamcinolone acetonide 0.1 % 1 applic topical BID PRN Skin 05/21/19 09/09/23 03/28/23 topical ointment Irritation multivitamin-ferrous 1 tab PO DAILY 05/22/19 09/09/23 03/28/23 fumarate-folic acid 18 mg-400 mcg tablet (Centrum Complete) carvedilol 12.5 mg tablet 12.5 mg PO BID 05/26/20 09/09/23 03/28/23 citalopram 10 mg tablet 10 mg PO QAM 03/06/23 09/09/23 03/28/23 cyanocobalamin (vitamin B-12) 100 100 mcg PO QAM 03/06/23 09/09/23 03/28/23 mcg tablet (Vitamin B-12) famotidine 20 mg tablet 20 mg PO QAM 03/06/23 09/09/23 03/28/23 guaifenesin 600 mg tablet, 600 mg PO Q12H PRN Cough 03/06/23 09/09/23 Unknown extended release 12 hr ipratropium bromide 17 2 puff inhalation QID 03/06/23 09/09/23 03/28/23 mcg/actuation HFA aerosol inhaler (Atrovent HFA) pantoprazole 20 mg tablet,delayed 20 mg PO DAILYBB 03/06/23 09/09/23 03/28/23 release sodium chloride 0.65 % nasal spray 1 spray intranasal BID PRN NASAL 03/06/23 09/09/23 Unknown aerosol (Saline Nasal) DRYNESS empagliflozin 10 mg tablet 10 mg PO QAM 09/09/23 09/09/23 Unknown (Jardiance) fluticasone propionate 50 2 sprays intranasal QAM 09/09/23 09/09/23 Unknown mcg/actuation nasal spray,suspension hydralazine 10 mg tablet 10 mg PO AMPM 09/09/23 09/09/23 Unknown isosorbide dinitrate 10 mg tablet 10 mg PO AMHS 09/09/23 09/09/23 Unknown lisinopril 2.5 mg tablet 2.5 mg PO DAILY 09/09/23 09/09/23 Unknown rosuvastatin 10 mg tablet 10 mg PO HS 09/09/23 09/09/23 Unknown torsemide 100 mg tablet 50 mg PO QAM 09/09/23 09/09/23 Unknown Active Medications Generic Name Dose Route Start Last Admin Trade Name Freq PRN Reason Stop Dose Admin Aspirin 81 mg 09/10/23 09:00 09/12/23 08:36 Aspirin 81 Mg Ectab PO 10/10/23 08:59 81 mg DAILY CLAUDIA Administration Citalopram Hydrobromide 10 mg 09/10/23 09:00 09/12/23 08:39 Citalopram 20 Mg Tab PO 10/10/23 08:59 10 mg QAM CLAUDIA Administration Clopidogrel Bisulfate 75 mg 09/11/23 09:00 09/12/23 08:38 Clopidogrel Bisulfate 75 Mg Tab PO 10/11/23 08:59 75 mg QAM CLAUDIA Administration Cyanocobalamin 100 mcg 09/10/23 09:00 09/12/23 08:36 Cyanocobalamin (B-12) 100 Mcg Tablet PO 10/10/23 08:59 100 mcg QAM CLAUDIA Administration Famotidine 20 mg 09/10/23 09:00 09/12/23 08:36 Famotidine 20 Mg Tab PO 10/10/23 08:59 20 mg QAM CLAUDIA Administration Fluticasone Propionate 2 sprays 09/10/23 09:00 09/12/23 08:38 Fluticasone Propionate Na Spr 16 Gm Btl NA 10/10/23 08:59 2 sprays QAM CLAUDIA Administration Guaifenesin 600 mg 09/10/23 10:30 09/12/23 08:37 Guaifenesin 600 Mg Tabcr PO 10/10/23 10:29 600 mg Q12 CLAUDIA Administration Dexamethasone 6 mg/ Syringe 1.5 mls @ 1 mls/min 09/10/23 09:00 09/12/23 09:04 IV 10/10/23 08:59 1 mls/min Q24H CLAUDIA Administration Ipratropium [place] 2 puffs 09/10/23 07:00 09/12/23 11:47 Ipratropium [place] Hfa Inhaler INH 10/10/23 06:59 2 puffs QIDR CLAUDIA Administration Isosorbide Mononitrate 30 mg 09/12/23 09:00 09/12/23 08:37 Isosorbide [place] Extended Rel 30 Mg Tabcr PO 10/12/23 08:59 30 mg QAM CLAUDIA Administration Metoprolol Succinate 25 mg 09/12/23 09:00 09/12/23 08:38 Metoprolol Succ 25mg Ext Rel Tab PO 10/12/23 08:59 25 mg QAM CLAUDIA Administration Multivitamins/Minerals 1 tab 09/10/23 09:00 09/12/23 08:36 Cerovite Adv Formula Tab PO 10/10/23 08:59 1 tab DAILY CLAUDIA Administration Nitroglycerin 1 inch 09/10/23 11:15 09/12/23 12:33 Nitroglycerin 2% Ointment 30gm Tube EXT 10/10/23 11:14 1 inch Q6 CLAUDIA Administration Pantoprazole Sodium 40 mg 09/10/23 06:30 09/12/23 05:37 Pantoprazole 40 Mg Tab PO 10/10/23 06:29 40 mg DAILYBB CLAUDIA Administration Rosuvastatin Calcium 10 mg 09/10/23 21:00 09/11/23 21:04 Rosuvastatin Calcium 10 Mg Tab PO 10/10/23 20:59 10 mg HS CLAUDIA Administration Tamsulosin HCl 0.4 mg 09/10/23 09:00 09/12/23 08:37 Tamsulosin Hcl 0.4 Mg Cap PO 10/10/23 08:59 0.4 mg BID CLAUDIA Administration Torsemide 50 mg 09/12/23 09:00 09/12/23 08:37 Torsemide 100 Mg Tab PO 10/12/23 08:59 50 mg QAM CLAUDIA Administration
--- NOTE | 2023-09-12 14:22 | Cardiology Progress Note ---
Date of Service September 12, 2023 Assessment & Plan Admission and Anticipated Discharge Date Admission Date: September 10, 2023 Supervising Physician Co-Signing Physician Notes 88 yo man presenting with chest pain Dx: NSETMI; COVID + Heparin -held secondary to Hemoptysis Conservative management of NSTEMI in the face of significant renal disease Medical Hx: * Ischemic Heart Disease * Cardiomyopathy * CKD - stage IV chronic kidney disease, with estimated GFR in the 20s Plans: * Ischemic heart disease * EKG consistent with subendocardial ischemia with chronic subtle lateral ST segment depression that is more prominent this admission, high-sensitivity troponin elevated on presentation last night at 522 PG per mL - trended up to 7368 PG per mL. * Cardiomyopathy - LVEF 20-25% * SBP Improved * Ongoing chest tightness * Ongoing hemoptysis * Hydralazine (OFF) * Increase Imdur to 60 mg po per day * Nitropaste (OFF) * Coreg (OFF) * Continue Toprol XL 25 mg po per day * No KENNETH/ARB/ARNI or Aldactone given GFR * Holding of systemic anticoagulation given hemoptysis * Continue ASA * Continue Plavix 75 mg po per day * Patient appears euvolemic * Lasix IV (OFF) * Continue Torsemide 50 mg po per day * Kdur 20 meq po x 1 on 09-12-2023 * Continue Crestor 10 mg po per day * Fasting Lipid Panel check * Consider Jardiance as an outpt * Please arrange follow up with [facility] * Please call back with any additional questions Micah Hernandez Subjective Events overnight: * None reported Subjective: * Chest pain improving * Noted to be worse when recumbent Review of Systems Review of Systems: All systems reviewed & are unremarkable except as noted in HPI & below Physical Exam Physical Exam: thin man JVP at base of neck S1S2 Soft 2/6 systolic murmur No C/C/E Results & Data Vital Signs (Past 12 Hours) Vital Signs Temp Pulse Pulse Resp BP Pulse Ox O2 Del Method 09/12/23 12:00 36.8 C 83 16 121/73 96 Room Air 09/12/23 11:48 57 L 16 95 Room Air 09/12/23 08:48 80 09/12/23 07:46 80 16 96 Room Air 09/12/23 07:45 Room Air 09/12/23 07:27 36.9 C 75 18 117/65 93 Room Air 12/12/23 05:00 36.4 C L 73 16 135/74 99 Nasal Cannula O2 Flow Rate 09/12/23 12:00 09/12/23 11:48 09/12/23 08:48 09/12/23 07:46 09/12/23 07:45 0 09/12/23 07:27 09/12/23 05:00 2 Laboratory Results CBC 09/12/23 Range/Units 05:31 WBC 11.27 H (4.8-10.8) K/ul RBC 3.77 L (4.70-6.10) M/uL Hgb 10.9 L (14.0-18.0) g/dl Hct 33.0 L (42.0-52.0) % Plt Count 220 (130-400) K/uL Neut # (Auto) 9.58 H (1.40-6.50) K/uL Lymph # (Auto) 0.90 L (1.20-3.40) K/uL Darke # (Auto) 0.75 H (0.11-0.59) K/uL Eos # (Auto) 0.00 (0.00-0.50) K/uL Baso # (Auto) 0.01 (0.00-0.20) K/uL Comprehensive Metabolic Panel 09/12/23 Range/Units 05:31 Sodium 134 L (136-145) mmol/L Potassium 4.1 (3.5-5.1) mmol/L Chloride 95 L (98-107) mmol/L Carbon Dioxide 28 (21-32) mmol/L BUN 75 H (6-23) mg/dl Creatinine 2.15 H (0.6-1.4) mg/dl Glucose 128 H (70-99(Fasting)) mg/dl Calcium 9.4 (8.6-10.3) mg/dl Intake and Output 09/11/23 09/12/23 09/12/23 22:59 06:59 14:59 Output Total 601 / 1526 925 / 1526 450 / 450 Balance -601 / -1526 -925 / -1526 -450 / -450 Output: Urine 300 / 1225 925 / 1225 450 / 450 Other 300 / 300 # Bowel Movements Other: Weight Measurement Method Standing Scale Medications Administered Current Inpatient Medications Acetaminophen (Acetaminophen 325 Mg Tab) 650 mg PO Q4H PRN PRN Reason: Pain or Fever Stop: 10/10/23 04:33 Aspirin (Aspirin 81 Mg Ectab) 81 mg PO DAILY [facility] Stop: 10/10/23 08:59 Last Admin: 09/12/23 08:36 Dose: 81 mg Citalopram Hydrobromide (Citalopram 20 Mg Tab) 10 mg PO [facility] Stop: 10/10/23 08:59 Last Admin: 09/12/23 08:39 Dose: 10 mg Clopidogrel Bisulfate (Clopidogrel Bisulfate 75 Mg Tab) 75 mg PO [facility] Stop: 10/11/23 08:59 Last Admin: 09/12/23 08:38 Dose: 75 mg Cyanocobalamin (Cyanocobalamin (B-12) 100 Mcg Tablet) 100 mcg PO [facility] Stop: 10/10/23 08:59 Last Admin: 09/12/23 08:36 Dose: 100 mcg Famotidine (Famotidine 20 Mg Tab) 20 mg PO [facility] Stop: 10/10/23 08:59 Last Admin: 09/12/23 08:36 Dose: 20 mg Fluticasone Propionate (Fluticasone Propionate Na Spr 16 Gm Btl) 2 sprays NA [facility] Stop: 10/10/23 08:59 Last Admin: 09/12/23 08:38 Dose: 2 sprays Guaifenesin (Guaifenesin 600 Mg Tabcr) 600 mg PO Q12 [facility] Stop: 10/10/23 10:29 Last Admin: 09/12/23 08:37 Dose: 600 mg Dexamethasone 6 mg/ Syringe 1.5 mls @ 1 mls/min IV Q24H [facility] Stop: 10/10/23 08:59 Last Admin: 09/12/23 09:04 Dose: 1 mls/min Ipratropium [place] (Ipratropium [place] Hfa Inhaler) 2 puffs INH QIDR [facility] Stop: 10/10/23 06:59 Last Admin: 09/12/23 11:47 Dose: 2 puffs Isosorbide Mononitrate (Isosorbide Darke Extended Rel 30 Mg Tabcr) 30 mg PO [facility] Stop: 10/12/23 08:59 Last Admin: 09/12/23 08:37 Dose: 30 mg Levalbuterol HCl (Levalbuterol 1.25mg/0.5ml Neb) 1.25 mg NEB Q4H PRN; Protocol PRN Reason: Shortness Of Breath Or Wheezing Stop: 10/10/23 04:33 Lisinopril (Lisinopril 2.5 Mg Tab) 2.5 mg PO DAILY CLAUDIA Stop: 10/10/23 08:59 Metoprolol Succinate (Metoprolol Succ 25mg Ext Rel Tab) 25 mg PO QAM CLAUDIA Stop: 10/12/23 08:59 Last Admin: 09/12/23 08:38 Dose: 25 mg Multivitamins/Minerals (Cerovite Adv Formula Tab) 1 tab PO DAILY CLAUDIA Stop: 10/10/23 08:59 Last Admin: 09/12/23 08:36 Dose: 1 tab Nitroglycerin (Nitroglycerin Sl 0.4 Mg/Tab Tab) 0.4 mg SL Q5M PRN PRN Reason: Chest Pain Stop: 10/10/23 04:33 Nitroglycerin (Nitroglycerin 2% Ointment 30gm Tube) 1 inch EXT Q6 CLAUDIA Stop: 10/10/23 11:14 Last Admin: 09/12/23 12:33 Dose: 1 inch Pantoprazole Sodium (Pantoprazole 40 Mg Tab) 40 mg PO DAILYBB [facility] Stop: 10/10/23 06:29 Last Admin: 09/12/23 05:37 Dose: 40 mg Rosuvastatin Calcium (Rosuvastatin Calcium 10 Mg Tab) 10 mg PO HS [facility] Stop: 10/10/23 20:59 Last Admin: 09/11/23 21:04 Dose: 10 mg Sodium Chloride (Sodium Chloride 0.65% Na Soln 45 Ml ([place])) 1 sprays NA BID PRN PRN Reason: NASAL DRYNESS Stop: 10/10/23 04:33 Tamsulosin HCl (Tamsulosin Hcl 0.4 Mg Cap) 0.4 mg PO BID [facility] Stop: 10/10/23 08:59 Last Admin: 09/12/23 08:37 Dose: 0.4 mg Torsemide (Torsemide 100 Mg Tab) 50 mg PO QAM [facility] Stop: 10/12/23 08:59 Last Admin: 09/12/23 08:37 Dose: 50 mg Triamcinolone Acetonide (Triamcinolone Acet 0.1% Oint 15 Gm Tube) 1 appln TOP BID PRN PRN Reason: Skin Irritation Stop: 10/10/23 04:33
--- NOTE | 2023-09-12 14:22 | Discharge Summary ---
Discharge Summary Date of Service September 12, 2023 Notes For Next Care Provider -Establish with Nephrology: from renal standpoint if pressures allow as OP can start low dose lisinopril -Cardiology and nephro can decide when/what SGLT2i to resume -needs hospital d/c appt w/ Nephrology in 2-3 weeks preferably [facility]; bmp, UACM, ACR, renal u/s, phos, 25 OHD prior to appt 3-5 days and to be ordered by neph ribbon tier Changes From Visit -Discontinue Coreg (carvedilol) -Discontinue Hydralazine -Discontinue isosorbide dinitrate -Discontinue lisinopril -Hold Jardiance until told to resume by Cardiology/Nephrology based upon your kidney function in the future -Start Metoprolol XL 25mg daily -Start Imdur 30mg daily -Continue Torsemide 50mg daily -Continue Dexamethasone 6mg daily (5 more days) -Start Plavix (clopidogrel) and continue daily aspirin: -Nitro prn Admission HPI Per Admitting Provider 88-year-old male with past med history significant for hyperlipidemia, 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 Patient was going up and down the steps few times for his laundry when he noticed chest pain which progressively got worse and he had to put down laundry basket . He gets this pain on and off but today it was persistent and EMS was called in. He was found to be 84% oxygen saturation with EMS. Received aspirin and nitro glycerin. His chest pain improved. Currently only has minimal discomfort. Lately also noticed some worsening edema in lower extremity and also some fluid in his abdomen.BUT says last two days his weight was down by 2 pounds. Has chronic cough. Denies any dizziness. Vision is okay. No earache or runny nose. No sore throat. No fevers. No nausea. No sweating. No abdominal pain. Stools are somewhat smaller in size. Denies any blood in the stools. Micturating okay. Appetite is okay. Past medical history. As mentioned above Past surgical history. Biopsy of prostate. Left elbow tendon repair. Bilateral carpal tunnel surgery. Colonoscopy. Injection of lumbosacral spine. Bilateral upper eyelid blepharoplasty. Appendectomy. Cataracts. Thoracocentesis on right side. Social history. . Current living alone. Daughter lives close by. Quit smoking 1959. Smoked quarter pack a day for 5 years. Alcohol weekly. No drug use. Family history. Father had COPD. Heart disorder. Mother had heart disorder. Brother had skin cancer. Brother has heart disease. Admission Exam Per Admitting Provider General- Not in distress Head- atraumatic Eyes- PERRL. ENT- oropharynx clear Neck- supple, no JVD. Lungs- clear to auscultation mild bibasilar crackles, no wheezing Heart- regular rhythm; no murmur, no gallop. Abdomen- normal bowel sounds, soft, nontender, no distension. Extremities- pretibial edema present , no erythema seen. Neuro- alert, oriented x 3; PERRL, no facial palsy; no dysarthria; moves extremities. 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 Patient's course is complicated by hemoptysis from severe pulm congestion/hypertension, CKD, ad NSTEMI. It has been decided to pursue conservative management given notable kidney disease. #NSTEMI #Typical Chest pain -Troponin peaked [id number] -Resolves with nitro, continue prn -Continue asa -Cardiology following, appreciate recs -Started Plavix in addition to above asa for DAPT/conservative management -Conservative management 2/2 renal dysfunction -Imdur for angina management -Discharged with prn nitro tablets #Acute on chronic respiratory failure with hypoxia *resolved #nocturnal hypoxia -Multifactorial given HFrEF and restrictive/interstitial lung disease -Off day time oxygen, resume home requirements #Hemoptysis *improved #Severe pulm hypertension -Blood tinged sputum, ongoing pulm history, follows [facility] -Pulm consult give complicated presentation for any further interventions -09/10 started on TXA nebs, discontinued -No role for right heart catheterization or pulmonary vasodilators at this point time. Continue diuretics per pulm recommendations -Follow up OP [facility] #Acute HFrEF (LVEF 25-30% on 03/2023, recovered & 08/2023 ]) [facility] limited echo in 08/15/2023 revealed improved EF previously to 40-45% after experiencing "stress induced v ischemic cardiomyopathy in 03/2023) - Home diuretics: Torsemide 50mg qam - GDMT: *BetaB: Discontinued Coreg 12.5mg BID; Started Metoprolol XL 25mg *RAAS: discontinue acei; can resume at later time as BP tolerates *Nasir: avoid 2/2 renal function *Vasodilator: Discontinued isordil and Hydralazine 10mg BID; Started Imdur 60mg daily *SGLT: hold 2/2 renal function Jardiance 10mg daily, follow up with Cards/Nephro prior to resuming *ICD: Address outpatient #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 *improved -potentially related to CRS -Continue PO torsemide -Strict IOs -Nephrology consulted; follow up with OP nephrology 2-3 weeks preferably [facility]; bmp, UACM, ACR, renal u/s, phos, 25 OHD prior to appt 3-5 days and to be ordered by neph RN #[employer] pneumoconiosis #Pulmonary nodule #Bronchiectasis #Restrictive lung disease -history of Stenotrophomonas s/p treatment on levaquin -Continue albuterol, atrovent inhalers -Flutter valve and mucinex bid -Follow up with OP Pulm #COVID positive -exacerbation of ILD with COVID back in 03/2023 -Symptomatic control -Dexamethone 6mg qd for 7 days, now on room air--5 more days remaining #HLD -COntinue ASA and statin On day of discharge, patient did wonderfully with PT/OT. States that he has some bloating and gas, but denies any active chest pain. Patient eager for discharge home. Discharge Exam Constitutional WD/WN, vitals as above Respiratory normal respiratory effort, lungs clear to auscultation Cardiovascular RRR, no murmur, no edema Musculoskeletal no cyanosis or clubbing, extremities motor strength 5/5 Updated Medication List Medication Instructions Recorded Confirmed Type aspirin 81 mg tablet,delayed 81 mg PO DAILY 05/21/19 09/09/23 History release tamsulosin 0.4 mg capsule 0.4 mg PO BID 05/21/19 09/09/23 History triamcinolone acetonide 0.1 % 1 applic topical BID PRN Skin 05/21/19 09/09/23 History topical ointment Irritation multivitamin-ferrous 1 tab PO DAILY 05/22/19 09/09/23 History fumarate-folic acid 18 mg-400 mcg tablet (Centrum Complete) citalopram 10 mg tablet 10 mg PO QAM 03/06/23 09/09/23 History cyanocobalamin (vitamin B-12) 100 100 mcg PO QAM 03/06/23 09/09/23 History mcg tablet (Vitamin B-12) famotidine 20 mg tablet 20 mg PO QAM 03/06/23 09/09/23 History guaifenesin 600 mg tablet, 600 mg PO Q12H PRN Cough 03/06/23 09/09/23 History extended release 12 hr ipratropium bromide 17 2 puff inhalation QID 03/06/23 09/09/23 History mcg/actuation HFA aerosol inhaler (Atrovent HFA) pantoprazole 20 mg tablet,delayed 20 mg PO DAILYBB 03/06/23 09/09/23 History release sodium chloride 0.65 % nasal spray 1 spray intranasal BID PRN NASAL 03/06/23 09/09/23 History aerosol (Saline Nasal) DRYNESS empagliflozin 10 mg tablet 10 mg PO QAM 09/09/23 09/09/23 History (Jardiance) fluticasone propionate 50 2 sprays intranasal QAM 09/09/23 09/09/23 History mcg/actuation nasal spray,suspension rosuvastatin 10 mg tablet 10 mg PO HS 09/09/23 09/09/23 History clopidogrel 75 mg tablet 75 mg PO QAM #30 tabs 09/12/23 Rx dexamethasone 6 mg tablet 6 mg PO DAILY #5 tabs 09/12/23 Rx isosorbide mononitrate 60 mg 60 mg PO QAM #30 tabs 09/12/23 Rx tablet,extended release 24 hr metoprolol succinate 25 mg 25 mg PO QAM #30 tabs 09/12/23 Rx tablet,extended release 24 hr nitroglycerin 0.4 mg sublingual 0.4 mg sublingual Q5M PRN chest 09/12/23 Rx tablet (Nitrostat) pain #30 tabs torsemide 100 mg tablet 50 mg (1/2 x 100 mg) PO QAM #30 09/12/23 Rx tabs Hospital Stay Data Consultations 09/09/23 23:22 ED Decision to Admit Stat 09/10/23 08:00 Consult Cardiology Routine 09/10/23 10:22 Consult Pulmonology Routine 09/11/23 16:27 Consult Nephrology Routine Diagnostic Imagining Performed 09/12/23 13:38 US Kidney Bladder [US renal/blad retro comp] Routine Discharge Instructions Given to Patient (Per Discharging Provider) You were admitted for chest pain and weakness, and found to have COVID pneumonia, as well as acute exacerbation of heart failure with concern for myocardial infarction. Your ECHO revealed an EF of 20-25%, and signs of ischemic damage/poor blood flow. Given your poor kidney function, a left heart catheterization was seemed as more risk than benefit as the lesion may not be repairable, and the risk of dialysis is high. You were evaluated by the lung doctors given the fact you were coughing up blood during this time. This was thought to be due to "leaky capillaries" given the fluid build up and high pressures in your lungs. Ultimately, with IV fluid removal and adjustments of your medications, you improved notably and back on room air with out oxygen. The Kidney doctor evaluated you to establish care given your kidney disease and to discuss options in the future given the poor function Here are the medication adjustments made this visit: -Discontinue Coreg (carvdeilol) -Discontinue Hydralazine -Discontinue isosorbide dinitrate -Discontinue lisinopril -Hold Jardiance until told to resume by Cardiology/Nephrology based upon your kidney function in the future -Start Metoprolol XL 25mg daily -Start Imdur 60mg daily -Continue Torsemide 50mg daily -Continue Dexamethasone 6mg daily until all pills are complete (5 more days in the mornings) -Start Plavix (clopidogrel) and continue daily aspirin: together these will help keep your platelets from being so "sticky" and blocking more vessels in your heart -You will given a script for nitroglycerin for chest pain,please see attached instructions on proper use You will need to follow up with Heart Failure Clinic You will need to follow up with your Electrical/Instrument Technician You will need to follow up with Nephrology Home Health Attestation I certify that this patient is under my care and that I, or a physicians university administrative assistant working with me, had a face to-face encounter that meets the home health [id number] encounter requirements with this patient. The encounter with the patient was in whole, or in part, for the following medical condition, which is the primary reason for home health care (list medical condition): NSTEMI, COVID I certify that, based on my findings, the following services are medically necessary home health services: My clinical findings support the need for the above services because: Home Safety Assessment Medication Compliance and Monitoring Effective of New Medications Skilled Nsg Assessment Skilled Nsg Assess Pt Illness, Disease and Sx Monitoring Vital Signs Further, I certify that my clinical findings support that this patient is homebound (i.e. absences from home require considerable and taxing effort and are for medical reasons or confucianist services or infrequently or of short duration when for other reasons) because: Transportation Assistance/Unable to Leave Home Unassisted Certification for Home Health Services: Based on the above findings, I certify that this patient is confined to the home and needs intermittent snf care, physical therapy and/or speech therapy or continues to need occupational therapy. The patient is under my care, and I have initiated the establishment of the plan of care. This patient will be followed by a physician who will periodically review the plan of care. Total Time Total Time Spent Total Time Spent (In Minutes): 55
--- NOTE | 2023-09-12 15:44 | Pulmonology Progress Note ---
Date of Service September 12, 2023 Assessment & Plan (1) Cough with hemoptysis: (2) NSTEMI (non-ST elevated myocardial infarction): (3) 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, coal, workers': (4) Acute on chronic HFrEF (heart failure with reduced ejection fraction): Plan Impression: 88-year-old male presented to the hospital with typical angina symptoms and found to have NSTEMI. He had some mild intermittent hemoptysis which appears to be resolving. Recommendations: 1. Hemoptysis: This is relatively scant and I do not think represents a contraindication to heparin given his non-ST elevation myocardial infarction. Starting dual antiplatelet therapy. 2. Hypoxemic respiratory failure with dyspnea: Resolved 3. COVID-positive: As the patient's hypoxemia has resolved, I think his dexamethasone can be discontinued 4. Severe pulmonary hypertension: Again suspect due to elevated LVEDP chronic kidney disease and hypoxemia. No role for right heart catheterization or pulmonary vasodilators at this point time. Continue diuretics Patient states he anticipates being dismissed from the hospital later today. Would be happy to see him back in the outpatient clinic should his hemoptysis recur. Feel free to contact us with questions or concerns Admission and Anticipated Discharge Date Admission Date: September 10, 2023 Subjective Patient seen and examined. EMR reviewed. The patient is seen sitting up in a chair. He is on room air. He has had scant hemoptysis but it is definitely decreasing in frequency. Has not had any significant chest pain or palpitations. No syncope or presyncope. He was seen by cardiology and nephrology and anticipates being dismissed from the hospital later today Review of Systems 2 Review of Systems: All systems reviewed & are unremarkable except as noted in Subjective Physical Exam 2 Constitutional: WD/WN, vitals as above Neck: trachea midline, no thyromegaly Respiratory: no respiratory distress, no labored breathing, no cough and not tachypneic Auscultation: + crackles Cardiovascular: RRR, no murmur, no edema Gastrointestinal (Abdomen): normal bowel sounds, soft, nontender, no hepatosplenomegaly Musculoskeletal: Extremities: extremities normal to inspection Skin: no rashes, warm and dry Lymphatic: no cervical lymphadenopathy Results & Data Results & Data Vital Signs (Past 12 Hours) Vital Signs Temp Pulse Pulse Resp BP Pulse Ox Pulse Ox 09/12/23 15:27 66 09/12/23 14:57 95 09/12/23 12:00 36.8 C 83 16 121/73 96 09/12/23 11:48 57 L 16 95 09/12/23 08:48 80 09/12/23 07:46 80 16 96 09/12/23 07:45 09/12/23 07:27 36.9 C 75 18 117/65 93 09/12/23 05:00 36.4 C L 73 16 135/74 99 O2 Del Method O2 Flow Rate 09/12/23 15:27 09/12/23 14:57 09/12/23 12:00 Room Air 09/12/23 11:48 Room Air 09/12/23 08:48 09/12/23 07:46 Room Air 09/12/23 07:45 Room Air 0 09/12/23 07:27 Room Air 09/12/23 05:00 Nasal Cannula 2 Laboratory Results 09/12/23 05:31 09/12/23 05:31 Diagnostic Findings No new imaging PG Care Time/CCT Total # of Minutes Spent Total Time Spent with Patient: Total time spent is greater than 50% in coordination of care (as documented) at patient's floor/unit and/or counseling patient: Coding Level of Care Code 99190 SUB INP/OBS CARE 2/35MIN Diagnoses Cough with hemoptysis R04.2 NSTEMI (non-ST elevated myocardial infarction) I21.4 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
[2023-09-12 16:05] LABS: Appearance Urine Clear (Clear); Bilirubin Urine Negative (Negative); Blood Urine Negative (Negative); Color Urine Yellow; Glucose Urine UA Negative (Negative); Ketones Urine Negative (Negative); Leukocyte Esterase Urine Negative (Negative); Nitrite Urine Negative (Negative); Protein Urine Negative (Negative); Specific Gravity Urine 1.009 (1.000-1.030); Urobilinogen Urine Negative (Negative); pH Urine 5.5 (4.5-7.5)
[2023-09-13] MEDS ORDERED: ISOSORBIDE MONO EXTENDED REL 60 MG TABCR PO SCH (09:00)
== END 2023-09-12 17:19 | disposition home health service (06) | DRG 280 ==
LOC: ED 22:07 → 4W 09-10 02:49

== ENCOUNTER 2024-01-30 11:40 | Inpatient (IN) ==
--- NOTE | 2024-01-30 12:10 | Emergency Department Note ---
Impression & Plan Acute on chronic HFrEF (heart failure with reduced ejection fraction), Dyspnea on exertion, Bilateral pleural effusion, COVID-19, Elevated troponin ED Provider Note NAME: JONAH PENA AGE: 88 SEX: M : 1935 ARRIVES VIA: Ambulance INFORMANT: Patient, ED PROVIDER(S): Jonn Martinez MD CHIEF COMPLAINT: Shortness of breath MEDICAL DECISION MAKING: Patient presented due to concern for shortness of breath. IV was established and blood work was obtained. Patient's blood work showed white count 21 with a hemoglobin 11.3 and a normal platelet count. The patient's kidney function was elevated at 1.78. Troponin of 640 but believe this likely to be demand. No evidence of STEMI. The patient does have a BNP of 1280 which could be consistent with congestive change. Bio fire is positive for COVID as well as entero and rhinovirus. Given the patient's elevated white count lactate blood cultures and antibiotics were ordered. The patient was covered with Zosyn and azithromycin. Procalcitonin not elevated. Patient was ordered an IV dose of Lasix. I did subsequently speak with the hospitalist service after making the patient the patient's family aware. Patient was admitted by Eufemia Bah PA-C and Dr. Canas. Discussion w/ other healthcare providers: Branden Bah PA-C and Dr. Canas ED pharmacist Prior /Outside records reviewed: Patient is up 4 kg from weight in September. Patient is on aspirin Plavix Imdur metoprolol and torsemide. Patient does state that he took his morning medications. Differential diagnosis: Reactive airway disease, pneumonia, pneumothorax, COPD, CHF, ACS, pulmonary embolism, musculoskeletal, GERD as well as other pathologies were considered. Diagnostics, as interpreted by me: ECG: Sinus with first-degree AV block, rate 92 wide QRS normal axis no ST elevations. Cardiac monitoring: An order was placed for continuous cardiac monitoring. The monitor shows a rate of 88 with sinus rhythm. Patient was placed on pulse oximetry Medical decision rules: None Imaging studies: I informally interpreted the patient's chest x-ray shows concern for possible lower pneumonia and associated pulmonary edema with formal report to follow. HPI: Patient presents due to concern for shortness of breath. The patient states that when he woke up this morning he did feel little chilled and then got up to make a hot cup of coffee which did not seem to improve his symptoms but noticed that he got even more short of breath with exertion. The patient does wear oxygen at nighttime and did wear it up to 3 L and does state that this improves some of his symptoms. The patient did have some cough but with virtually clear sputum. Patient is a non-smoker he does have a history of a prior AR and CHF. The patient does have some chronic intermittent right leg swelling which is unchanged. The patient denies any nausea vomiting or diaphoresis. Patient states that he felt fine yesterday. The patient does feel better rested and feels better than when he did this morning. Patient states that he did take his morning medications. PAST MEDICAL HISTORY: See Below PAST SURGICAL HISTORY: See Below SOCIAL HISTORY: See Below HOME MEDICATIONS: See Below ALLERGIES: See Below VITALS: See Below PHYSICAL EXAMINATION: GENERAL: NAD, non-toxic. Wearing glasses. EYE EXAM: Normal conjunctiva. PERRL, no anisocoria and EOM's grossly intact w/o pain. OROPHARYNX: Moist mucus membranes, grossly normal dentition. NECK: Trachea midline, no stridor. Supple, no nuchal rigidity, no adenopathy, non-tender. No signs of meningismus. FROM of the neck with good chin to chest and neck extension. LUNGS: Bibasilar crackles. Normal chest wall mechanics. HEART: NSR, no MRG. ABDOMEN: Abdomen soft, non-tender, no masses, no rebound or guarding. BACK: No CVA TTP. SKIN: No rashes and no bruising. UPPER EXTREMITIES: Upper extremities are grossly normal. LOWER EXTREMITIES: Grossly normal, trace pretibial edema without any calf pain or erythema. NEURO EXAM: A&O x3, cranial nerves II-XII grossly intact, normal speech, moves all 4 extremities. 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, biopsy stage T2c Initiation of hormone suppression prior to prostate seed implant, short course Status post prostate seed implant 02/03/2015 with cesium 131 received 8500 cGy 50 seeds placed Status post completion of IMRT/IGRT 04/28/2015 received 4500 cGy " On 05/26/15 14:44 Shira Goldberg wrote "Rising PSA to 7.46 Status post ultrasound-guided biopsies revealing adenocarcinoma Gabriela 4+3, biopsy stage T2c Initiation of hormone suppression prior to prostate seed implant Status post prostate seed implant 02/03/2015 with cesium 131 received 8500 cGy 50 seeds placed Status post completion of IMRT/IGRT 04/28/2015 received 4500 cGy " On 05/01/15 12:43 Sandra Marquez wrote "Rising PSA to 7.46 Status post ultrasound-guided biopsies revealing adenocarcinoma Gabriela 4+3, biopsy stage T2c Initiation of hormone suppression Status post prostate seed implant 02/03/2015 with cesium 131 received 8500 cGy 50 seeds placed Status post completion of IMRT/IGRT 04/28/2015 received 4500 cGy " On 03/17/15 15:55 Sandra Marquez wrote "Rising PSA to 7.46 Status post ultrasound-guided biopsies revealing adenocarcinoma Gabriela 4+3, biopsy stage T2c Initiation of hormone suppression Status post prostate seed implant 02/03/2015 with cesium 131 received 8500 cGy 50 seeds placed Now for completion of IMRT/IGRT" Surgical History History of appendectomy H/O shoulder surgery Family History Other Heart disease Social History Smoking Status: Never smoker Tobacco Type: Cigarettes Second Hand Exposure: No; Do You Dip or Chew Tobacco: No; Hx Alcohol Use: No Hx Substance Use: No Preferred Language: Mosotho Communication Ability: Effective Manager Strategic Alliances Required: No Beliefs That Will Affect Care: None marital status: / Current Living Situation: Alone Feels Safe at Home: Yes Safety Concerns: Feels Safe At This Time Assistive Devices: Cane, Oxygen - at Night and Walker Allergies Allergies Allergy/AdvReac Type Severity Reaction Status Date / Time No Known Allergies Allergy Verified 01/26/24 09:10 Home Meds Home Medications Medication Instructions Recorded Confirmed aspirin 81 mg tablet,delayed 81 mg PO DAILY 05/21/19 01/30/24 release tamsulosin 0.4 mg capsule 0.4 mg PO BID 05/21/19 01/30/24 multivitamin-ferrous 1 tab PO DAILY 05/22/19 01/30/24 fumarate-folic acid 18 mg-400 mcg tablet (Centrum Complete) citalopram 10 mg tablet 20 mg PO QAM 03/06/23 01/30/24 cyanocobalamin (vitamin B-12) 100 100 mcg PO QAM 03/06/23 01/30/24 mcg tablet (Vitamin B-12) famotidine 20 mg tablet 20 mg PO QAM 03/06/23 01/30/24 guaifenesin 600 mg tablet, 600 mg PO Q12H PRN Cough 03/06/23 01/30/24 extended release 12 hr ipratropium bromide 17 2 puff inhalation QID 03/06/23 01/30/24 mcg/actuation HFA aerosol inhaler (Atrovent HFA) pantoprazole 20 mg tablet,delayed 20 mg PO DAILYBB 03/06/23 01/30/24 release sodium chloride 0.65 % nasal spray 1 spray intranasal BID PRN NASAL 03/06/23 01/30/24 aerosol (Saline Nasal) DRYNESS empagliflozin 10 mg tablet 10 mg PO QAM 09/09/23 01/30/24 (Jardiance) fluticasone propionate 50 2 sprays intranasal QAM 09/09/23 01/30/24 mcg/actuation nasal spray,suspension rosuvastatin 10 mg tablet 10 mg PO HS 09/09/23 01/30/24 torsemide 100 mg tablet 100 mg PO UD 11/16/23 01/30/24 allopurinol 100 mg tablet 100 mg PO UD 01/30/24 01/30/24 Previous Rx's Medication Instructions Recorded clopidogrel 75 mg tablet 75 mg PO QAM #30 tabs 09/12/23 isosorbide mononitrate 60 mg 60 mg PO QAM #30 tabs 09/12/23 tablet,extended release 24 hr metoprolol succinate 25 mg 25 mg PO QAM #30 tabs 09/12/23 tablet,extended release 24 hr nitroglycerin 0.4 mg sublingual 0.4 mg sublingual Q5M PRN chest 09/12/23 tablet (Nitrostat) pain #30 tabs cephalexin 500 mg capsule 500 mg PO TID 10 days #30 caps 01/22/24 Results & Data (ED) Vital Signs Vital Signs - 24 hr 01/30/24 11:45 01/30/24 11:45 01/30/24 11:57 Temperature 36.7 C Temperature Source Oral Pulse Rate 90 Respiratory Rate 20 Respiratory Effort / Characteristics Non-Labored Spontaneous Non-Labored Spontaneous Respiratory Depth Normal Blood Pressure 133/80 Blood Pressure Mean 97 Pulse Oximetry 96 96 Oxygen Delivery Method Room Air Room Air Sepsis Recent Fever Within 48 Hours No Sepsis New/Unexplained Change in Mental Status No Sepsis Action Taken by Nursing No Action Required Home Medications Current Medication List: was personally reviewed by me Laboratory Data Attestation: I reviewed the patient's lab results. 01/31/24 01:49 01/31/24 01:49 Lab Results 01/30/24 01/30/24 01/30/24 Range/Units 11:45 11:46 12:44 WBC 21.93 H (4.8-10.8) K/ul RBC 4.10 L (4.70-6.10) M/uL Hgb 11.3 L (14.0-18.0) g/dl Hct 35.0 L (42.0-52.0) % MCV 85.4 (80.0-100.0) fL MCH 27.6 (25.0-34.0) pg MCHC 32.3 (32.0-36.0) g/dL RDW Std Deviation 45.4 (36.4-46.3) fL RDW Coeff of Nehemias 14.6 H (11.5-14.5) % Plt Count 284 (130-400) K/uL MPV 10.3 (9.4-12.4) fL Immature Gran % (Auto) 0.7 % Neut % (Auto) 88.9 % Lymph % (Auto) 3.7 % [place] % (Auto) 6.0 % Eos % (Auto) 0.2 % Baso % (Auto) 0.5 % Neut # (Auto) 19.50 H (1.40-6.50) K/uL Lymph # (Auto) 0.81 L (1.20-3.40) K/uL [place] # (Auto) 1.31 H (0.11-0.59) K/uL Eos # (Auto) 0.05 (0.00-0.50) K/uL Baso # (Auto) 0.11 (0.00-0.20) K/uL Immature Gran # (Auto) 0.15 (0.01-0.20) K/uL PT 11.9 (9.0-12.0) Seconds INR 1.1 (0.9-1.1) APTT 30 (21-31) Seconds PTT Ratio 1.1 Sodium 136 (136-145) mmol/L Potassium 3.7 (3.5-5.1) mmol/L Chloride 97 L (98-107) mmol/L Carbon Dioxide 29 (21-32) mmol/L Anion Gap 10 (3-11) BUN 61 H (6-23) mg/dl Creatinine 1.78 H (0.6-1.4) mg/dl Est Cr Clr Drug Dosing 30.8 ml/min Est GFR ( Amer) 38.6 ml/min Est GFR (Non-Af Amer) 33.3 ml/min BUN/Creatinine Ratio 34.3 H (10-20) Glucose 151 H (70-99(Fasting)) mg/dl Lactate (0.4-2.0) mmol/L Calcium 9.6 (8.6-10.3) mg/dl Magnesium 1.9 (1.7-2.4) mg/dl Total Bilirubin 0.6 (0.2-1.0) mg/dl AST 18 (13-39) U/L ALT 11 (7-52) U/L Alkaline Phosphatase 62 (34-104) U/L Troponin I High Sens 640.8 H* (0-20) pg/ml B-Natriuretic Peptide 1280 H (0-100) pg/ml Total Protein 7.5 (6.0-8.3) gm/dl Albumin 3.8 (3.4-5.0) gm/dl Globulin 3.7 (2.5-4.0) gm/dl Albumin/Globulin Ratio 1.0 (0.9-2) Procalcitonin (0-0.5) ng/ml Adenovirus (PCR) Not Detected (NotDetected) B. pertussis DNA (PCR) Not Detected (NotDetected) B.parapertussis DNA PCR Not Detected (NotDetected) C. pneumoniae DNA (PCR) Not Detected (NotDetected) Coronavirus OC43 (PCR) Not Detected (NotDetected) Coronavirus HKU1 (PCR) Not Detected (NotDetected) Coronavirus 229E (PCR) Not Detected (NotDetected) SARS-CoV-2 (PCR) DETECTED A (NotDetected) Coronavirus NL63 (PCR) Not Detected (NotDetected) Human Metapneumovir PCR Not Detected (NotDetected) Influenza Type A (PCR) Not Detected (NotDetected) Influenza Type B (PCR) Not Detected (NotDetected) M. pneumoniae (PCR) Not Detected (NotDetected) Parainfluenza 1 (PCR) Not Detected (NotDetected) Parainfluenza 2 (PCR) Not Detected (NotDetected) Parainfluenza 3 (PCR) Not Detected (NotDetected) Parainfluenza 4 (PCR) Not Detected (NotDetected) RSV (PCR) Not Detected (NotDetected) Entero/Rhino (PCR) DETECTED A (NotDetected) 01/30/24 01/30/24 Range/Units 13:49 14:29 WBC (4.8-10.8) K/ul RBC (4.70-6.10) M/uL Hgb (14.0-18.0) g/dl Hct (42.0-52.0) % MCV (80.0-100.0) fL MCH (25.0-34.0) pg MCHC (32.0-36.0) g/dL RDW Std Deviation (36.4-46.3) fL RDW Coeff of Nehemias (11.5-14.5) % Plt Count (130-400) K/uL MPV (9.4-12.4) fL Immature Gran % (Auto) % Neut % (Auto) % Lymph % (Auto) % [place] % (Auto) % Eos % (Auto) % Baso % (Auto) % Neut # (Auto) (1.40-6.50) K/uL Lymph # (Auto) (1.20-3.40) K/uL [place] # (Auto) (0.11-0.59) K/uL Eos # (Auto) (0.00-0.50) K/uL Baso # (Auto) (0.00-0.20) K/uL Immature Gran # (Auto) (0.01-0.20) K/uL PT (9.0-12.0) Seconds INR (0.9-1.1) APTT (21-31) Seconds PTT Ratio Sodium (136-145) mmol/L Potassium (3.5-5.1) mmol/L Chloride (98-107) mmol/L Carbon Dioxide (21-32) mmol/L Anion Gap (3-11) BUN (6-23) mg/dl Creatinine (0.6-1.4) mg/dl Est Cr Clr Drug Dosing ml/min Est GFR ( Amer) ml/min Est GFR (Non-Af Amer) ml/min BUN/Creatinine Ratio (10-20) Glucose (70-99(Fasting)) mg/dl Lactate 1.7 (0.4-2.0) mmol/L Calcium (8.6-10.3) mg/dl Magnesium (1.7-2.4) mg/dl Total Bilirubin (0.2-1.0) mg/dl AST (13-39) U/L ALT (7-52) U/L Alkaline Phosphatase (34-104) U/L Troponin I High Sens 1265.1 H* D (0-20) pg/ml B-Natriuretic Peptide (0-100) pg/ml Total Protein (6.0-8.3) gm/dl Albumin (3.4-5.0) gm/dl Globulin (2.5-4.0) gm/dl Albumin/Globulin Ratio (0.9-2) Procalcitonin 0.37 (0-0.5) ng/ml Adenovirus (PCR) (NotDetected) B. pertussis DNA (PCR) (NotDetected) B.parapertussis DNA PCR (NotDetected) C. pneumoniae DNA (PCR) (NotDetected) Coronavirus OC43 (PCR) (NotDetected) Coronavirus HKU1 (PCR) (NotDetected) Coronavirus 229E (PCR) (NotDetected) SARS-CoV-2 (PCR) (NotDetected) Coronavirus NL63 (PCR) (NotDetected) Human Metapneumovir PCR (NotDetected) Influenza Type A (PCR) (NotDetected) Influenza Type B (PCR) (NotDetected) M. pneumoniae (PCR) (NotDetected) Parainfluenza 1 (PCR) (NotDetected) Parainfluenza 2 (PCR) (NotDetected) Parainfluenza 3 (PCR) (NotDetected) Parainfluenza 4 (PCR) (NotDetected) RSV (PCR) (NotDetected) Entero/Rhino (PCR) (NotDetected) Administered Medications Aspirin (Aspirin 81 Mg Ectab) 81 mg PO DAILY [facility] Stop: 03/01/24 08:59 Last Admin: 01/31/24 10:01 Dose: 81 mg Documented By: OO Citalopram Hydrobromide (Citalopram 20 Mg Tab) 20 mg PO [facility] Stop: 03/01/24 08:59 Last Admin: 01/31/24 10:01 Dose: 20 mg Documented By: OO Cyanocobalamin (Cyanocobalamin (B-12) 100 Mcg Tablet) 100 mcg PO [facility] Stop: 03/01/24 08:59 Last Admin: 01/31/24 10:01 Dose: 100 mcg Documented By: OO Famotidine (Famotidine 20 Mg Tab) 20 mg PO [facility] Stop: 03/01/24 08:59 Last Admin: 01/31/24 10:00 Dose: 20 mg Documented By: OO Fluticasone Propionate (Fluticasone Propionate Na Spr 16 Gm Btl) [facility]ays [facility] Stop: 03/01/24 08:59 Last Admin: 01/31/24 10:02 Dose: 2 sprays Documented By: OO Furosemide (Furosemide 40 Mg/4 Ml Vial) 60 mg IV [id number] [facility] Stop: 03/01/24 08:59 Last Admin: 01/31/24 09:57 Dose: 60 mg Documented By: OO Guaifenesin (Guaifenesin 600 Mg Tabcr) 600 mg PO Q12H PRN PRN Reason: Cough Stop: 02/29/24 17:44 Last Admin: 01/31/24 09:59 Dose: 600 mg Documented By: OO Heparin Sodium/Dextrose (Heparin Sodium/Dextrose) 25,000 units in 500 mls @ 22 mls/hr IV .[id number] [facility]; Protocol Stop: 02/29/24 17:29 Last Titration: 01/31/24 07:14 Dose: 1,100 units/hr, 22 mls/hr Documented By: ROSI Co-signed By: CARMEN Titration: 01/31/24 03:30 Dose: 1,100 units/hr, 22 mls/hr Documented By: CARMEN Co-signed By: [facility] Admin: 01/30/24 19:27 Dose: 950 units/hr, 19 mls/hr Documented By: CARMEN Co-signed By: DISHA Piperacillin Sod/Tazobactam (Sod 4.5 gm/ Dextrose) 100 mls @ 25 mls/hr IV Q8H [facility]; Protocol Stop: 02/01/24 19:59 Last Admin: 01/31/24 12:59 Dose: 25 mls/hr Documented By: OVinayak Infusion: 01/31/24 07:59 Dose: Infused Documented By: Admin: 01/31/24 03:34 Dose: 25 mls/hr Documented By: Infusion: 01/30/24 23:17 Dose: Infused Documented By: Admin: 01/30/24 19:34 Dose: 25 mls/hr Documented By: CARMEN Ipratropium [place] (Ipratropium [place] Hfa Inhaler) 2 puffs INH QIDR [facility] Stop: 02/29/24 18:59 Last Admin: 01/31/24 15:12 Dose: 2 puffs Documented By: Admin: 01/31/24 10:55 Dose: 2 puffs Documented By: Admin: 01/31/24 07:20 Dose: 2 puffs Documented By: Admin: 01/30/24 21:04 Dose: 2 puffs Documented By: CAM Isosorbide Mononitrate (Isosorbide [place] Extended Rel 60 Mg Tabcr) 60 mg PO QAM [facility] Stop: 03/01/24 08:59 Last Admin: 01/31/24 10:00 Dose: 60 mg Documented By: OO Metoprolol Succinate (Metoprolol Succ 25mg Ext Rel Tab) 25 mg PO QAM [facility] Stop: 03/01/24 08:59 Last Admin: 01/31/24 10:00 Dose: 25 mg Documented By: ROSI Multivitamins (Multivitamin Tab) 1 tab PO DAILY [facility] Stop: 03/01/24 08:59 Last Admin: 01/31/24 09:59 Dose: 1 tab Documented By: OO Pantoprazole Sodium (Pantoprazole 40 Mg Tab) 40 mg PO DAILYBB [facility] Stop: 03/01/24 06:29 Last Admin: 01/31/24 05:34 Dose: 40 mg Documented By: CARMEN Prednisone (Prednisone 10 Mg Tablet) 30 mg PO DAILY [facility] Stop: 03/01/24 13:59 Last Admin: 01/31/24 13:36 Dose: 30 mg Documented By: ROSI Rosuvastatin Calcium (Rosuvastatin Calcium 10 Mg Tab) 10 mg PO HS [facility] Stop: 02/29/24 20:59 Last Admin: 01/30/24 19:52 Dose: 10 mg Documented By: CARMEN Tamsulosin HCl (Tamsulosin Hcl 0.4 Mg Cap) 0.4 mg PO BID [facility] Stop: 02/29/24 20:59 Last Admin: 01/31/24 09:58 Dose: 0.4 mg Documented By: Admin: 01/30/24 19:53 Dose: 0.4 mg Documented By: CARMEN Discontinued Medications Azithromycin (Azithromycin 250 Mg Tab) 500 mg PO NOW ONE Stop: 01/30/24 15:08 Last Admin: 01/30/24 15:55 Dose: 500 mg Documented By: NICOLAS Furosemide (Furosemide Inj 20 Mg/2 Ml Vial) 20 mg IV ONE ONE Stop: 01/30/24 13:39 Last Admin: 01/30/24 14:01 Dose: 20 mg Documented By: HS Furosemide (Furosemide 40 Mg/4 Ml Vial) 40 mg IV ONE ONE Stop: 01/30/24 14:48 Last Admin: 01/30/24 14:54 Dose: 40 mg Documented By: HS Heparin Sodium (Porcine) (Heparin Sod (Porcine) 1000 Unit/Ml) 3,000 units IV NOW ONE Stop: 01/31/24 03:31 Last Admin: 01/31/24 03:34 Dose: 3,000 units Documented By: CARMEN Co-signed By: [facility] Heparin Sodium/Dextrose (Heparin Iv Adult Wt-Based Low-Dose *No* Initial Bolus Protocol) 1 each IV ONE STA; Protocol Stop: 01/30/24 17:16 Last Admin: 01/30/24 19:27 Dose: 1 each Documented By: CARMEN Piperacillin Sod/Tazobactam Sod (Zosyn) 4.5 gm in 100 mls @ 200 mls/hr IV NOW ONE Stop: 01/30/24 14:08 Last Infusion: 01/30/24 14:48 Dose: Infused Documented By: Admin: 01/30/24 14:04 Dose: 200 mls/hr Documented By: RICHAR Remdesivir 200 mg/ Sodium (Chloride) 250 mls @ 125 mls/hr IV ONE STA; Protocol Stop: 01/30/24 19:00 Last Infusion: 01/30/24 21:06 Dose: Infused Documented By: Admin: 01/30/24 18:43 Dose: 125 mls/hr Documented By: CARMEN(2) Potassium Chloride (Potassium Chloride Crtab 20 Meq Tabcr) 40 meq PO NOW STA Stop: 01/30/24 15:59 Last Admin: 01/30/24 16:26 Dose: 40 meq Documented By: RICHAR Imaging Data Radiologist's Impression: Chest X-Ray 01/30/24 12:27 XR chest 1V portable HISTORY: 88 years-old Male Dyspnea COMPARISON: 09/11/2023 TECHNIQUE: AP view of the chest FINDINGS: Cardiac silhouette is enlarged. Pulmonary vascular congestion with reticular nodular opacities again noted. Layering pleural effusions with bibasilar consolidation, right greater than left. No pneumothorax. Chronic right clavicular fracture deformity. Degenerative changes of the shoulders and spine. IMPRESSION: 1. Cardiomegaly with pulmonary edema and chronic extensive reticular nodular opacities which are again suggestive an infectious or inflammatory process. 2. Layering pleural effusions with bibasilar consolidation, right greater than left. ACT 112: Negative or not required by law. The above report was generated using voice recognition software. It may contain grammatical, syntax or spelling errors. Electronically signed by: Azar Bruce M.D. 01/30/2024 1:42 PM Discharge Plan Visit Data Chief Complaint: Shortness of Breath/Dyspnea Stated Complaint: SOB ED Provider: Jonn Martinez Discharge Problem: Acute on chronic HFrEF (heart failure with reduced ejection fraction), Dyspnea on exertion, Bilateral pleural effusion, COVID-19, Elevated troponin Patient Disposition: Admitted As Inpatient Discharge Instructions Interventions: ED Discharge Assessment Last Done: 01/30/24 17:14
[2024-01-30 12:54] LABS: Basophils # (auto) 0.11 K/uL (0.00-0.20); Basophils % (auto) 0.5 %; Eosinophils # (auto) 0.05 K/uL (0.00-0.50); Eosinophils % (auto) 0.2 %; Hemoglobin 11.3 g/dl (14.0-18.0); Immature Granulocytes # (auto) 0.15 K/uL (0.01-0.20); Immature Granulocytes % (auto) 0.7 %; Lymphocytes # (auto) 0.81 K/uL (1.20-3.40); Lymphocytes % (auto) 3.7 %; Mean Corpuscular Hemoglobin 27.6 pg (25.0-34.0); Mean Corpuscular Hgb Conc 32.3 g/dL (32.0-36.0); Mean Corpuscular Volume 85.4 fL (80.0-100.0); Mean Platelet Volume 10.3 fL (9.4-12.4); Monocytes # (auto) 1.31 K/uL (0.11-0.59); Neutrophils % (auto) 88.9 %; Platelet Count 284 K/uL (130-400); RDW Coefficient of Variation 14.6 % (11.5-14.5); RDW Standard Deviation 45.4 fL (36.4-46.3); White Blood Count 21.93 K/ul (4.8-10.8)
[2024-01-30 13:16] LABS: Albumin Level 3.8 gm/dl (3.4-5.0); BUN Creatinine Ratio 34.3 (10-20); Bilirubin,Total 0.6 mg/dl (0.2-1.0); Calcium 9.6 mg/dl (8.6-10.3); Creatinine Clr Calc Pharmacy 30.8 ml/min; Est GFR (African American) 38.6 ml/min; Est GFR (Non-African American) 33.3 ml/min; Globulin 3.7 gm/dl (2.5-4.0); Magnesium 1.9 mg/dl (1.7-2.4); Potassium 3.7 mmol/L (3.5-5.1); Total Protein 7.5 gm/dl (6.0-8.3)
[2024-01-30 13:20] LABS: INR 1.1 (0.9-1.1); Partial Thromboplastin Ratio 1.1; Partial Thromboplastin Time 30 Seconds (21-31); Prothrombin Time 11.9 Seconds (9.0-12.0)
[2024-01-30 13:26] LABS: Troponin I High Sensitivity 640.8 pg/ml (0-20)
--- NOTE | 2024-01-30 13:44 | XRay Report ---
XR chest 1V portable HISTORY: 88 years-old Male Dyspnea COMPARISON: 09/11/2023 TECHNIQUE: AP view of the chest FINDINGS: Cardiac silhouette is enlarged. Pulmonary vascular congestion with reticular nodular opacities again noted. Layering pleural effusions with bibasilar consolidation, right greater than left. No pneumotho rax. Chronic right clavicular fracture deformity. Degenerative changes of the shoulders and spine. IMPRESSION: 1. Cardiomegaly with pulmonary edema and chronic extensive reticular nodular opacities which are agai n suggestive an infectious or inflammatory process. 2. Layering pleural effusions with bibasilar consolidation, right greater than left. ACT 112: Negative or not required by law. The above report was generated using voice recognition software. It may contain grammatical, syntax o r spelling errors. Electronically signed by: Azar Bruce M.D. 01/30/2024 1:42 PM
[2024-01-30] MEDS: FUROSEMIDE INJ 20 MG/2 ML VIAL IV ONE (14:01)
[2024-01-30] MEDS: PIPERACILLIN/TAZOBACTAM 4.5 GM/100 ML BAG IV ONE (14:04)
[2024-01-30 14:43] LABS: Adenovirus PCR Not Detected (NotDetected); Bordetella parapertussis PCR Not Detected (NotDetected); Bordetella pertussis PCR Not Detected (NotDetected); Chlamydia pneumoniae PCR Not Detected (NotDetected); Coronavirus 229E PCR Not Detected (NotDetected); Coronavirus CoV-2 (COVID19)PCR DETECTED (NotDetected); Coronavirus HKU1 PCR Not Detected (NotDetected); Coronavirus NL63 PCR Not Detected (NotDetected); Coronavirus OC43PCR Not Detected (NotDetected); Human Metapneumovirus PCR Not Detected (NotDetected); Influenza A PCR Not Detected (NotDetected); Influenza B PCR Not Detected (NotDetected); Mycoplasma pneumoniae PCR Not Detected (NotDetected); Parainfluenza Virus 1 PCR Not Detected (NotDetected); Parainfluenza Virus 2 PCR Not Detected (NotDetected); Parainfluenza Virus 3 PCR Not Detected (NotDetected); Parainfluenza Virus 4 PCR Not Detected (NotDetected); Respiratory Syncytial VirusPCR Not Detected (NotDetected); Rhinovirus/Enterovirus PCR DETECTED (NotDetected)
--- NOTE | 2024-01-30 14:43 | History & Physical Report ---
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 SOB In setting of decompensated HF, covid 19 and restrictive/interstitial lung disease as discussed below O2 saturation 94 on room air, continue 2L NC HS and supplemental O2 during day as needed Acute decompensated HFrEF CXR with 1. Cardiomegaly with pulmonary edema and chronic extensive reticular nodular opacities which are again suggestive an infectious or inflammatory process. 2. Layering pleural effusions with bibasilar consolidation, right greater than left. Alternates between 100mg and 50mg torsemide at home Given 20 + 40 mg IV lasix in ED for a total of 60mg BNP 1,280 Strict I&Os, daily weights Limited echo in 08/15/2023 revealed improved EF previously to 40-45% after experiencing "stress induced v ischemic cardiomyopathy" in 03/2023) Repeat echo ordered Continue 60mg IV Lasix BID Routine cards consult Continue Toprol, Imdur. Wilbur has been discontinued previously Holding Jardiance for now given crcl ~30 Elevated trop No CP or acute EKG changes, h/o NSTEMI on previous admission In setting of decompensated HFrEF as above, CKD HS trop 640.8 -> 1265.1, continue trending Started on IV heparin for now Continue aspirin, statin Holding plavix while on IV heparin, resume per cards rec Covid-19 Covid PCR positive today. Endorses Chills and SOB overnight, no fever or cough Started on Remdesivir No indication for steroids as not hypoxic Will continue empiric Zosyn for now given leukocytosis, procal 0.37 in case of superimposed infection CKD IV Cr 1.78 (baseline ~ 2) Monitor BMP daily [place] pneumoconiosis Pulmonary nodule Bronchiectasis Restrictive lung disease History of Stenotrophomonas s/p treatment on levaquin Continue albuterol, atrovent inhalers Flutter valve and mucinex bid HLD Continue ASA and statin Ulcer of right foot Follows with wound clinic, recently started on 10d Keflex course with improved appearance Continue empiric IV abx, holding Keflex Wound care nurse Rash Treated with Permethrin 5 % External Cream x 2 and calamine lotion with resolution of itching, rash still present Trial of Triamcinolone as outpatient derm recommended. Patient discontinued after 2 uses Routine derm consult for further recs DVT Ppx: SQ heparin Code status: DNR/DNI PCP: [facility] Dispo: Admitted to PCU Patient seen in collaboration with Dr. Canas. Please see addendum. I spent a total of 75 minutes coordinating, documenting, and providing care for this patient excluding time spent in the performance of separately billed services. 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 Patient lives alone and mentioned yesterday to his daughter that his breathing was not as good but otherwise felt okay. He then developed chills and worsening SOB and called her back asking to be taken to the hospital. Daughter who sees him everyday for wound care to chronic R foot wound has had runny nose but attributed it to allergies. Was started on Keflex by wound care last for his foot wound x 10 day course. [place] to be improving per daughter. Persistent rash on chest wall and distribution around arms and on groin. Spared armpits. Treated with permethrin cream x 2 doses as well as Calamine lotion with relief of itching but rash still present. Also tried triamcinolone cream per derm recommendations but it did not help and he stopped taking. No recent medication changes or new products with fragrance. No F/C, CP, N/V, dysuria, diarrhea or constipation. Last bowel movement was this morning. Abd distention attributed to hernia, which he was due for repair this Monday. Allergies Allergy/AdvReac Type Severity Reaction Status Date / Time No Known Allergies Allergy Verified 01/26/24 09:10 Home Medications Medication Instructions Recorded Confirmed Type aspirin 81 mg tablet,delayed 81 mg PO DAILY 05/21/19 01/30/24 History release tamsulosin 0.4 mg capsule 0.4 mg PO BID 05/21/19 01/30/24 History multivitamin-ferrous 1 tab PO DAILY 05/22/19 01/30/24 History fumarate-folic acid 18 mg-400 mcg tablet (Centrum Complete) citalopram 10 mg tablet 20 mg PO QAM 03/06/23 01/30/24 History cyanocobalamin (vitamin B-12) 100 100 mcg PO QAM 03/06/23 01/30/24 History mcg tablet (Vitamin B-12) famotidine 20 mg tablet 20 mg PO QAM 03/06/23 01/30/24 History guaifenesin 600 mg tablet, 600 mg PO Q12H PRN Cough 03/06/23 01/30/24 History extended release 12 hr ipratropium bromide 17 2 puff inhalation QID 03/06/23 01/30/24 History mcg/actuation HFA aerosol inhaler (Atrovent HFA) pantoprazole 20 mg tablet,delayed 20 mg PO DAILYBB 03/06/23 01/30/24 History release sodium chloride 0.65 % nasal spray 1 spray intranasal BID PRN NASAL 03/06/23 01/30/24 History aerosol (Saline Nasal) DRYNESS empagliflozin 10 mg tablet 10 mg PO QAM 09/09/23 01/30/24 History (Jardiance) fluticasone propionate 50 2 sprays intranasal QAM 09/09/23 01/30/24 History mcg/actuation nasal spray,suspension rosuvastatin 10 mg tablet 10 mg PO HS 09/09/23 01/30/24 History clopidogrel 75 mg tablet 75 mg PO QAM #30 tabs 09/12/23 01/30/24 Rx isosorbide mononitrate 60 mg 60 mg PO QAM #30 tabs 09/12/23 01/30/24 Rx tablet,extended release 24 hr metoprolol succinate 25 mg 25 mg PO QAM #30 tabs 09/12/23 01/30/24 Rx tablet,extended release 24 hr nitroglycerin 0.4 mg sublingual 0.4 mg sublingual Q5M PRN chest 09/12/23 01/30/24 Rx tablet (Nitrostat) pain #30 tabs torsemide 100 mg tablet 100 mg PO UD 11/16/23 01/30/24 History cephalexin 500 mg capsule 500 mg PO TID 10 days #30 caps 01/22/24 01/30/24 Rx allopurinol 100 mg tablet 100 mg PO UD 01/30/24 01/30/24 History Past Med/Surg History Medical History (Updated 01/30/24 @ 16:58 by Eufemia Bah PA-C) BPH (benign prostatic hyperplasia) Acute on chronic HFrEF (heart failure with reduced ejection fraction) Acute on chronic renal failure Elevated troponin I level Chest pain Pulmonary edema Stage 3b chronic kidney disease (CKD) Cough with hemoptysis Bilateral pleural effusion Dyspnea on exertion HFrEF (heart failure with reduced ejection fraction) History of prostate cancer s/p XRT with brachy boost HTN (hypertension) Restrictive lung disease 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, 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, 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' Prostate cancer (11/03/14) "Rising PSA to 7.46 Status post ultrasound-guided biopsies revealing adenocarcinoma [place] 4+3, biopsy stage T2c Initiation of hormone suppression prior to prostate seed implant, short course Status post prostate seed implant 02/03/2015 with cesium 131 received 8500 cGy 50 seeds placed Status post completion of IMRT/IGRT 04/28/2015 received 4500 cGy " On 05/26/15 14:44 Shira Goldberg wrote "Rising PSA to 7.46 Status post ultrasound-guided biopsies revealing adenocarcinoma Gabriela 4+3, biopsy stage T2c Initiation of hormone suppression prior to prostate seed implant Status post prostate seed implant 02/03/2015 with cesium 131 received 8500 cGy 50 seeds placed Status post completion of IMRT/IGRT 04/28/2015 received 4500 cGy " On 05/01/15 12:43 Sandra Marquez wrote "Rising PSA to 7.46 Status post ultrasound-guided biopsies revealing adenocarcinoma [place] 4+3, biopsy stage T2c Initiation of hormone suppression Status post prostate seed implant 02/03/2015 with cesium 131 received 8500 cGy 50 seeds placed Status post completion of IMRT/IGRT 04/28/2015 received 4500 cGy " On 03/17/15 15:55 Sandra Marquez wrote "Rising PSA to 7.46 Status post ultrasound-guided biopsies revealing adenocarcinoma Gabriela 4+3, biopsy stage T2c Initiation of hormone suppression Status post prostate seed implant 02/03/2015 with cesium 131 received 8500 cGy 50 seeds placed Now for completion of IMRT/IGRT" Surgical History History of appendectomy H/O shoulder surgery Family History Other Heart disease Social History Smoking Status: Never smoker Tobacco Type: Cigarettes Second Hand Exposure: No; Do You Dip or Chew Tobacco: No; Hx Alcohol Use: No Hx Substance Use: No Preferred Language: Macedonian Communication Ability: Effective Deputy General Counsel Required: No Beliefs That Will Affect Care: None marital status: / Current Living Situation: Alone Feels Safe at Home: Yes Assistive Devices: Cane, Oxygen - at Night and Walker Review of Systems Review of Systems: At least ten systems reviewed and negative except as noted in the HPI. Physical Exam Physical Exam: Please see Dr. Canas' addendum for physical exam. Results & Data Results & Data Vital Signs (Past 12 Hours) Vital Signs Temp Pulse Resp BP Pulse Ox O2 Del Method 01/30/24 14:00 118/61 94 01/30/24 14:00 80 23 92 01/30/24 13:34 83 01/30/24 13:32 85 24 92 01/30/24 11:57 96 Room Air 01/30/24 11:45 36.7 C 90 20 133/80 96 Room Air Laboratory Results Short CBC 01/30/24 Range/Units 11:46 WBC 21.93 H (4.8-10.8) K/ul Hgb 11.3 L (14.0-18.0) g/dl Hct 35.0 L (42.0-52.0) % Plt Count 284 (130-400) K/uL BMP 01/30/24 11:46 Sodium 136 Potassium 3.7 Chloride 97 L Carbon Dioxide 29 BUN 61 H Creatinine 1.78 H Glucose 151 H Calcium 9.6 Liver Function 01/30/24 Range/Units 11:46 Total Bilirubin 0.6 (0.2-1.0) mg/dl AST 18 (13-39) U/L ALT 11 (7-52) U/L Alkaline Phosphatase 62 (34-104) U/L Albumin 3.8 (3.4-5.0) gm/dl Diagnostic Findings Chest X-Ray 01/30/24 12:27 XR chest 1V portable HISTORY: 88 years-old Male Dyspnea COMPARISON: 09/11/2023 TECHNIQUE: AP view of the chest FINDINGS: Cardiac silhouette is enlarged. Pulmonary vascular congestion with reticular nodular opacities again noted. Layering pleural effusions with bibasilar consolidation, right greater than left. No pneumothorax. Chronic right clavicular fracture deformity. Degenerative changes of the shoulders and spine. IMPRESSION: 1. Cardiomegaly with pulmonary edema and chronic extensive reticular nodular opacities which are again suggestive an infectious or inflammatory process. 2. Layering pleural effusions with bibasilar consolidation, right greater than left. ACT 112: Negative or not required by law. The above report was generated using voice recognition software. It may contain grammatical, syntax or spelling errors. Electronically signed by: Azar Bruce M.D. 01/30/2024 1:42 PM Supervising Physician Co-Signing Physician Notes I have seen and discussed the case with the collaborating advanced practitioner. I agree with the above H&P. I have reviewed and confirmed the patients medical history, the findings on physical examination, and the patients diagnosis and treatment plan with CHRIS and agree with the information documented. In short, Mr. 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 Patient states that he was feeling well recently but noted last evening that he felt "off", then awoke this morning with acute SOB, requesting his daughter take him to the ED. He states that he noted his abdomen more full recently, but attributes it to the hernia he needs repaired. He denies fevers, reports chills as of this morning. He denies any onset of cough or other acute symptoms. He alternates between his torsemide 50 and 100mg, today he took 100mg this morning. He denies chest pain or palpitations. Additionally, he reports progressive rash with pruritus across torso and anterior thigh. He states he trialed triamcinolone by Derm with no success and did not follow up. He was then informed by another provider that he "has scabies ." However, has not noted involvement of his groin, axilla, or interdigital spaces. He mostly notes back and torso involvement--sparing his underarms. GENERAL APPEARANCE: AxOx4, generally well-appearing overall . HEENT: NC, AT. MMM. EOMI, clear conjunctiva, oropharynx clear. NECK: Supple without lymphadenopathy. No stiffness or restricted ROM. HEART: Normal rate and regular rhythm, MARLYS+ LUNGS: diffuse bilateral crackles, no cough with deep inhalation ABDOMEN: Soft, nontender protuberant with good bowel sounds heard. BACK: No CVAT, no obvious deformity. EXTREMITIES: Without cyanosis, clubbing. pitting pedal edema R>L NEUROLOGICAL: Grossly nonfocal. Alert and oriented, moving all 4 extremities. CN not formally tested but appear grossly intact. Skin: diffuse erythematous, sand-paper like confluence on torso, back, small patch on anterior right leg, sparing of groin/axilla/buttock/hands/feet small chronic wound with bandage on right foot, ulceration without drainage or signs of superimposed infection : #Shortness of breath likely multifactorial, concerning for acute HFrEF, severe pulm htn hx, in addition COVID infection once more #Leukocytosis #Diffuse torso rash POA -Patient does not appear septic, nor critically ill Rash seems chronic--was told he had "scabies" however it spares groin, interdigital spaces, axilla, not burrowed. Appears like sandpaper, contact dermatitis Given chronicity, but WBC--will contact derm -Hold steroids topically/ relief with calamine #Right foot wound, chronic POA -Appears clean, no drainage or superimposed infection apparent Wound care #COVID infection elevated WBC, however procal 0.37, low suspicion for superimposed bacterial pneumonia given no cough, no sputum, afebrile -Will give remdesivir as symptoms within 24 hours -No steroids given no hypoxia #elevated troponin #history of NSTEMI #ischemic cardiomyopathy likely iso stress/HF exacerbation, unclear ischemic history Heparin in interim, continue asa hold plavix Trend trop #Acute HFrEF (LVEF 25-30% on 03/2023, recovered & 08/2023 ]) #Severe pulm HTN (PASP 70mmhg) ECHO 20-25% 09/2023 - Home diuretics: Torsemide 50mg qam/100mg qam alternating - GDMT: *BetaB: continue Metoprolol XL 25mg *RAAS: not on 2/2 renal function *Nasir: avoid 2/2 renal function *Vasodilator: continue Imdur 60mg daily *SGLT: hold 2/2 renal function Jardiance 10mg daily *ICD: Address outpatient - s/p 60mg IV lasix in ED -Lasix 60 BID IV in interim -Cardiology consult - Strict I/Os, daily weights ECHO #nocturnal hypoxia -continue O2qhs #CKD stage IV -potentially related to CRS, much lower than baseline of ~2 -IV lasix 60 BID in interim, anticipate it to uptrend #[place] pneumoconiosis #Pulmonary nodule #Bronchiectasis #Restrictive lung disease -history of Stenotrophomonas s/p treatment on levaquin -Sputum culture if able -Continue albuterol, atrovent inhalers #HLD -Continue ASA and statin I spent a total of 55 minutes coordinating, documenting, and providing care for this patient excluding time spent in the performance of separately billed services. All of the aforementioned completed outside of collaborating with the assigned advanced practitioner for a full treatment plan. I have reviewed the advanced practitioner's documentation, and I agree with, and take responsibility for the plan of care
[2024-01-30] MEDS: FUROSEMIDE 40 MG/4 ML VIAL IV ONE (14:54)
[2024-01-30] MEDS: AZITHROMYCIN 250 MG TAB PO ONE (15:55)
--- NOTE | 2024-01-30 16:14 | Electrocardiogram Report ---
Test Reason : Blood Pressure : / mmHG Vent. Rate : 092 BPM Atrial Rate : 092 BPM P-R Int : 256 ms QRS Dur : 092 ms QT Int : 380 ms P-R-T Axes : 000 -11 126 degrees QTc Int : 469 ms Sinus rhythm with 1st degree A-V block Anteroseptal infarct (cited on or before 11-SEP-2023) T wave abnormality, consider lateral ischemia Abnormal ECG When compared with ECG of 12-SEP-2023 05:40, MA interval has increased Questionable change in initial forces of Anterior leads Nonspecific T wave abnormality now evident in Anterior leads Confirmed by Ovi Grewal ([id number]) on 01/30/2024 4:14:16 PM Referred By: Confirmed By:Ovi Grewal
[2024-01-30] MEDS: POTASSIUM CHLORIDE CRTAB 20 MEQ TABCR PO STA (16:26)
[2024-01-30 17:06] LABS: Appearance Urine Clear (Clear); Bilirubin Urine Negative (Negative); Blood Urine Negative (Negative); Color Urine Yellow; Glucose Urine UA Negative (Negative); Ketones Urine Negative (Negative); Leukocyte Esterase Urine Negative (Negative); Nitrite Urine Negative (Negative); Protein Urine Negative (Negative); Urobilinogen Urine Negative (Negative)
[2024-01-30] MEDS ORDERED: SODIUM CHLORIDE 0.65% NA SOLN 45 ML (OCEAN) NAE PRN (17:45)
[2024-01-30] MEDS: REMDESIVIR 200 MG in SODIUM CHLORIDE 0.9% 210 ML IV STA (18:43)
[2024-01-30] MEDS: HEPARIN SODIUM/DEXTROSE 25,000 UNITS/500 ML BAG IV SCH (19:27)
[2024-01-30] MEDS: Heparin IV Adult Wt-Based Low-Dose *NO* INITIAL Bolus Protocol IV STA (19:27)
[2024-01-30] MEDS: PIPERACILLIN/TAZOBACTAM 4.5 GM in DEXTROSE 5% MINI-B 100 ML IV SCH (19:34)
[2024-01-30] MEDS: ROSUVASTATIN CALCIUM 10 MG TAB PO SCH (19:52)
[2024-01-30] MEDS: TAMSULOSIN HCL 0.4 MG CAP PO SCH (19:53)
[2024-01-30] MEDS: IPRATROPIUM BROMIDE HFA INHALER INH SCH (21:04)
[2024-01-31 02:19] LABS: ANTI-Xa, UFH(UnfractionatedHep 0.18 IU/ml (0.3-0.7)
[2024-01-31 02:41] LABS: Hematocrit (blood only) 30.7 % (42.0-52.0); Hemoglobin 9.9 g/dl (14.0-18.0); Mean Corpuscular Hemoglobin 27.3 pg (25.0-34.0); Mean Corpuscular Hgb Conc 32.2 g/dL (32.0-36.0); Mean Corpuscular Volume 84.6 fL (80.0-100.0); Platelet Count 232 K/uL (130-400); RDW Coefficient of Variation 14.6 % (11.5-14.5); RDW Standard Deviation 44.8 fL (36.4-46.3); Red Blood Count 3.63 M/uL (4.70-6.10); White Blood Count 13.48 K/ul (4.8-10.8)
[2024-01-31 03:08] LABS: Albumin Level 3.4 gm/dl (3.4-5.0); BUN Creatinine Ratio 31.4 (10-20); Bilirubin Direct 0.2 mg/dl (0-0.2); Bilirubin,Total 0.5 mg/dl (0.2-1.0); Calcium 8.7 mg/dl (8.6-10.3); Creatinine Clr Calc Pharmacy 29.9 ml/min; Est GFR (African American) 34.8 ml/min; Potassium 3.7 mmol/L (3.5-5.1); Total Protein 6.5 gm/dl (6.0-8.3)
[2024-01-31] MEDS: HEPARIN SOD (PORCINE) 1000 UNIT/ML IV ONE (03:34)
[2024-01-31] MEDS: PANTOprazole 40 MG TAB PO SCH (05:34)
--- OUTSIDE RECORDS SUMMARY | 2024-01-31 09:22 | External Medical Summary | Summary of Care ---
Author Name Unknown Organization [facility] Address [address] [place] [address] Phone [phone] Care Team Providers Care Manufacturing Cost Estimator Name Role Phone Claude Mata MD Primary Care Provide r Reason for Visit * Reason Comments Medication Refill Encounter Details Date Type Department Care Team (Late st Contact Info) Description 01/24/2024 Refill Care Coordination and Integration [address] [place] [address] Deborah Regan [address] [place] [phone] Rash Allergies Active Allergy Reactions Criticality Noted Date Comments Trazodone Other (Please comment) High 10/05/2023 Hallucinations documented as of this encounter (statuses as of 01/25/2024) Medications Medication Sig Dispensed Refills Start Date [...] by mouth in the morning. 0 Active Saline [place] 0.65 % Nasal Solution ([place]) Administer into nostril 1 [place] as needed for Congestion. 60 mL 5 04/08/2022 Active Fluticasone Propionate 50 MCG/ACT Nasal Suspension (Flonase) Administer 2 Sprays into nostril in the morning. 0 Active Flutter Device Provided at visit 1 Each 0 08/09/2022 Active Nitroglycerin 0.4 MG Sublingual Tablet Sublingual (Nitrostat) Place 1 Tablet under the tongue every 5 minutes as needed for Pain, Chest. 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 100 Tablet 1 09/19/2023 Active Famotidine 20 MG Oral Tablet (Pepcid)Indications :Gastroesophageal reflux disease, unspecified whether esophagitis present Take 1 Tablet by mouth in the morning. 100 Tablet 1 09/19/2023 Active Rosuvastatin Calcium 10 MG Oral Tablet (Crestor)Indication s:Dyslipidemia, goal LDL below 100 Take 1 Tablet by mouth at bedtime. 100 Tablet 1 09/19/2023 Active Metoprolol Succinate ER 25 MG Oral Tablet Extended Release 24 Hour (toPROL XL)Indications:Hype rtensive heart and kidney disease with chronic systolic congestive heart failure and stage 3b chronic kidney disease (HCC) Take 1 Tablet by mouth in the morning. 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 100 Tablet 1 09/19/2023 Active Tamsulosin HCl 0.4 MG Oral Capsule (Flomax)Indications :BPH with obstruction/lower urinary tract symptoms Take 1 Capsule by mouth in the morning. 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 90 Tablet 3 10/12/2023 Active Atrovent HFA 17 MCG/ACT Inhalation Aerosol Solution (ipratropium)Indica tions:[place] workers pneumoconiosis (HCC) Inhale 2 Puffs by mouth in the morning and 2 Puffs at noon and 2 Puffs in the evening and 2 Puffs before bedtime. 38.7 g 1 10/25/2023 Active Albuterol Sulfate 108 (90 Base) MCG/ACT Inhalation Aerosol Powder Breath Activated Inhale 2 Puffs by mouth every 6 hours as needed for Shortness of Breath or Wheezing. 1 Each 2 10/25/2023 4 Active guaiFENesin ER 600 MG Oral Tablet Extended Release 12 Hour (Mucinex) Take 1 Tablet by mouth daily. 0 Active Torsemide 100 MG Oral Tablet (Demadex)Indication s:HFrEF (heart failure with reduced ejection fraction) ([facility]) Alternate 50 mg, with 100 mg, daily. Take 50 mg every other day - starting 11/18/23, and take 100 mg every other day - starting 11/19/23. 70 Tablet 1 11/14/2023 Active Triamcinolone Acetonide 0.1 % External Cream (Aristocort)Indicat ions:Xerosis cutis,Multiple excoriations Apply 2 times daily (or more if itchy instead of scratching) to spots on body until resolved, then when flaring 454 g 0 11/29/2023 Active Pantoprazole Sodium 40 MG Oral Tablet Delayed Release (Protonix) Take 1 Tablet by mouth in the morning. 90 Tablet 3 12/14/2023 Active Citalopram Hydrobromide 20 MG Oral Tablet (CeleXA)Indications :SOLEDAD (generalized anxiety disorder) Take 1 Tablet by mouth in the morning. 30 Tablet 5 01/10/2024 Active Permethrin 5 % External Cream (Elimite)Indication s:Rash Apply topically to affected area once for 1 dose. Apply from top of neck to toes all over, wash off after 12 hours 60 g 0 01/25/2024 Active Permethrin 5 % External Cream (Elimite)Indication s:Rash Apply topically to affected area once for 1 dose. Apply from top of neck to toes all over, wash off after 12 hours 60 g 0 01/18/2024 4 Discontinu ed(Refill) documented as of this encounter (statuses as of 01/25/2024) Active Problems Problem Noted Date Diagnosed Date SOLEDAD (generalized anxiety disorder) 12/01/2023 Coronary artery disease invo lving [place] coronary artery of [place] heart without angina pectoris 12/01/2023 Pulmonary hypertension, unspecified 10/07/2023 HFrEF (heart failure with reduced ejection fract ion) 09/19/2023 Hypertensive heart and kidne y disease with chronic systolic congestive heart failure and stage 3b chronic kidney disease 06/12/2023 Chronic systolic heart failure 04/10/2023 Interstitial pulmonary disease 04/10/2023 Medical home patient encounter 03/15/2023 Nocturnal hypoxemia 04/08/2022 Overview: Wears 2 LPM via [place], DME: [facility] Chronic rhinitis 04/08/2022 Lung nodules 04/08/2022 [...] appointment. GENERAL OSTEOARTHROSIS INSOMNIA W SLEEP APNEA [place] workers pneumoconiosis Restrictive lung disease documented as of this encounter (statuses as of 01/25/2024) Resolved Problems Problem Noted Date Diagnosed Date Resolved Date Hospital discharge follow-up 04/10/2023 06/20/2023 Pleural effusion due to CHF (congestive heart failure) 04/10/2023 09/13/2023 Overview: More specified condition noted on pl as chronic systolic heart failure SOB (shortness of breath) 04/08/2022 Benign hypertension [...] Rotator cuff rupture 05/22/2003 018 LOC PRIM [id number] 05/22/200310/02 Prepatellar bursitis 05/22/2003 015 Inflammation of sacroiliac joint 10/12/2001 10/16/2014 LOC PRIM OSTEOARTH-HAND 10/12/200110/02 Respiratory abnormality 07/04 Overview: ICD-10 update of inactive term Umbilical hernia 05/10/2018 Insomnia 10/16/2014 Overview: ICD-10 update of inactive term COPD, severity to be determined 07/07/2011 Allergic rhinitis 05/10/2018 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 07/04 Bilateral carpal tunnel syndrome 05/10/2018 CKD (chronic kidney disease), stage III 12/11/2018 Benign hypertension with CKD (chronic kidney disease) stage III 02/11/2021 Overview: Per CKD protocol documented as of this encounter (statuses as of 01/25/2024) Immunizations Name Administration Dates Next Due COVID-19 mRNA, LNP-s, No Pre serve, 2-Dose Series (Moderna) 01/07/2022,12/31/2020,12/03/2020 Pneumococcal Conjugate Vacc, 13 Valent (Prevnar) 05/02/2015 Season Influenza, Quad, PF, Adjuvanted, 65+ Yrs, IM (FLUAD) 07/22/2020 Seasonal Influenza, PF, 6 M & above, IM , (FluLaval or Fluzone) 06/28/2018,07/13/2017 Seasonal Influenza, Quadriva lent Hd (Fluzone [...] Date Smoking Tobacco: Former Cigarettes 0.3 5 0 05/19/1955 - 05/19/1960 Smokeless Tobacco: Never Alcohol Use Standard Drinks/Week Comments Not Currently 2 (1 standard drink = 0.6 oz pur e alcohol) weekly PHQ-2 Answer Date Recorded PHQ Adult Total Score 0 07/12/2023 Hunger Vital Sign Answer Date Recorded Within the past 12 months, y ou worried that your food would run out before you got the money to buy more. Never true 09/21/20 23 Within the past 12 months, t he food you bought just didn't last and you didn't have money to get more. Never true 09/21/2023 Sex and Gender Information Value Date Recorded Sex Assigned at Male 07/05/2021 10:09 AM EDT Gender Identity Male 07/05/2021 10:09 AM EDT Sexual Orientation Straight 07/05/2021 10 :09 AM EDT Job Start Date Occupation Industry Not on file Not on file Not on file documented as of this encounter Miscellaneous Notes * Telephone Encounter - Deborah Regan CRNP - 01/25/2024 7:55 AM EDT Signed Prescriptions: Disp Refills Permethrin 5 % External Cream (Elimite) 60 g 0 Sig: Apply topically to affected area once for 1 dose. Apply from top of neck to toes all over, wash off after 12 hoursAuthorizing Provider: DEBORAH REGAN documented in this encounter Plan of Treatment Upcoming Encounters Date Type Department Care Team (Latest Contact Info) Description 02/02/2024 10:34 AM EDT Hospital Encounter OR [facility], Operating Room, [facility] - 4th Floor [address] [place] [address] Stiven Goodwin MD [address] [place] [address] 02/02/2024 10:34 AM EDT - 02/02/2024 12:03 PM EDT Surgery OR [facility], Operating Room, [facility] - 4th Floor [address] [place] [address] Stiven Goodwin MD [address] [place] [address] EPIGASTRIC/UMBILICA L HERNIA REPAIR INITIAL < 3 CM REDUCIBLE 02/05/2024 9:30 AM EDT Scheduled Telephone General [facility], [facility] [place] [address] Nurse Vito Gen Surg [facility] [place] [address] 02/14/2024 11:15 AM EDT Office Visit General Surgery, [facility] 132 [facility] [place] [address] Stiven Goodwin MD 132 [facility] [place] [address] 03/05/2024 9:15 AM EDT Cardiac Studies Cardiac Studies, [facility] 132 [facility] [place] [address] 04/23/2024 11:00 AM EDT Office Visit Cardiology, [facility] 132 [facility] [place] [address] Luh Garcia CRNP 132 [facility] [place] [address] 07/10/2024 2:40 PM EDT Office Visit Family Medicine [address] [place] [phone] Claude Mata MD [address] [place] [address] [place] [address] 07/15/2024 10:00 AM EDT Nurse Only Ancillary [address] [place] [address] [place], Nurse Annual [address] [place] [address] 10/01/2024 3:20 PM EST Office Visit Nephrology [address] [place] [address] Cande Soni MD [address] [facility] [place] [address] 12/02/2024 2:20 PM EST Office Visit Dermatology [address] [place] [address] Dalila West PA-C [address] [place] [address] [place] [address] Scheduled Procedures Name Priority Associated Diagnoses Date/Ti me EPIGASTRIC/UMBILICAL HERNIA REPAIR INITIAL < 3 CM REDUCIBLE Umbilical hernia without obstruction and without gangrene 02/02/2024 10:34 AM EDT Health Maintenance Due Date Last Done Comments COVID-19 Vaccine ( season) 2023 01/07/2022, 12/31/2020, 12/03/2020 DTaP,Tdap,and Td Vaccines (2 - Td or Tdap) 10/14/2023 10/14/2013, 07/22/2008 Depression Screening 07/12/2024 07/12/2023 Albumin/Creatinine Ratio 10/05/2024 024, 02/14/2023, 04/07/2022, Additional history exists CKD PHOS USE SMARTSET 72503 10/05/202401/2024, 05/12/2022, 10/05/2020, Additional history exists CKD HGB USE SMARTSET 42389 11/30/202411/30, 12/01/2023, 10/05/2023, Additional history exists Pneumococcal Vaccine: 65+ Years [...] as of this encounter Visit Diagnoses Diagnosis Rash Rash and other nonspecific skin eruption Umbilical hernia without obstruction and without gangrene documented in this encounter Advance Directives Latest [...] patient or by statute hierarchy) Care Teams Manufacturing Cost Estimator Relationship Specialty Start Date End Date Claude Mata MD [address] [place] [address] [place] [address] PCP - General Family Medicine 11/13/23 documented as of this encounter
--- OUTSIDE RECORDS SUMMARY | 2024-01-31 09:22 | External Medical Summary | Summary of Care ---
Author Name Unknown Organization [facility] Address [address] [place] [address] Phone [phone] Care Team Providers Care Liquid Waste Treatment Plant Operator Name Role Phone Claude Mata MD Primary Care Provide r Reason for Visit * Reason Onset Date Comments Billing Questions 01/23/2024 Encounter Details Date Type Department Care Team (Late st Contact Info) Description 01/23/2024 Telephone Cardiology, [facility] [address] [place] [address] Luh Garcia CRNP [address] [place] [address] Billing Questions Allergies Active Allergy Reactions Criticality Noted Date Comments Trazodone Other (Please comment) High 10/05/2023 Hallucinations documented as of this encounter (statuses as of 01/24/2024) Medications Medication Sig Dispensed Refills Start Date [...] mouth in the morning. 0 Active Saline [place] 0.65 % Nasal Solution ([place]) Administer into nostril 1 [place] as needed for Congestion. 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 100 Tablet 1 09/19/2023 Active Famotidine 20 MG Oral Tablet (Pepcid)Indications: Gastroesophageal reflux disease, unspecified whether esophagitis present Take 1 Tablet by mouth in the morning. 100 Tablet 1 09/19/2023 Active Rosuvastatin Calcium 10 MG Oral Tablet (Crestor)Indications :Dyslipidemia, goal LDL below 100 Take 1 Tablet by mouth at bedtime. 100 Tablet 1 09/19/2023 Active Metoprolol Succinate ER 25 MG Oral Tablet Extended Release 24 Hour (toPROL XL)Indications:Hyper tensive heart and kidney disease with chronic systolic congestive heart failure and stage 3b chronic kidney disease (HCC) Take 1 Tablet by mouth in the morning. 100 Tablet 1 09/19/2023 Active Isosorbide Mononitrate ER 60 MG Oral Tablet Extended Release 24 Hour (Imdur)Indications:H ypertensive heart and kidney disease with chronic systolic congestive heart failure and stage 3b chronic kidney disease (HCC) Take 1 Tablet by mouth in the morning. 100 Tablet 1 09/19/2023 Active Tamsulosin HCl 0.4 MG Oral Capsule (Flomax)Indications: BPH with obstruction/lower urinary tract symptoms Take 1 Capsule by mouth in the morning. 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 90 Tablet 3 10/12/2023 Active Atrovent HFA 17 MCG/ACT Inhalation Aerosol Solution (ipratropium)Indicat ions:[place] workers pneumoconiosis (HCC) Inhale 2 Puffs by mouth in the morning and 2 Puffs at noon and 2 Puffs in the evening and 2 Puffs before bedtime. 38.7 g 1 10/25/2023 Active Albuterol Sulfate 108 (90 Base) MCG/ACT Inhalation Aerosol Powder Breath Activated Inhale 2 Puffs by mouth every 6 hours as needed for Shortness of Breath or Wheezing. 1 Each 2 10/25/2023 Active guaiFENesin ER 600 MG Oral Tablet Extended Release 12 Hour (Mucinex) Take 1 Tablet by mouth daily. 0 Active Torsemide 100 MG Oral Tablet (Demadex)Indications :HFrEF (heart failure with reduced ejection fraction) (HCC) Alternate 50 mg, with 100 mg, daily. Take 50 mg every other day - starting 11/18/23, and take 100 mg every other day - starting 11/19/23. 70 Tablet 1 11/14/2023 Active Triamcinolone Acetonide 0.1 % External Cream (Aristocort)Indicati ons:Xerosis cutis,Multiple excoriations Apply 2 times daily (or more if itchy instead of scratching) to spots on body until resolved, then when flaring 454 g 0 11/29/2023 Active Pantoprazole Sodium 40 MG Oral Tablet Delayed Release (Protonix) Take 1 Tablet by mouth in the morning. 90 Tablet 3 12/14/2023 Active Citalopram Hydrobromide 20 MG Oral Tablet (CeleXA)Indications: SOLEDAD (generalized anxiety disorder) Take 1 Tablet by mouth in the morning. 30 Tablet 5 01/10/2024 Active Permethrin 5 % External Cream (Elimite)Indications :Rash Apply topically to affected area once for 1 dose. 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 GENERAL OSTEOARTHROSIS INSOMNIA W SLEEP APNEA [place] workers pneumoconiosis Restrictive lung disease documented as of this encounter (statuses as of 01/24/2024) Resolved Problems Problem Noted Date Diagnosed Date [...] Rotator cuff rupture 05/22/2003 018 LOC PRIM [id number] 05/22/200310/02 Prepatellar bursitis 05/22/2003 015 Inflammation of sacroiliac joint 10/12/2001 10/16/2014 LOC PRIM OSTEOARTH-HAND 10/12/200110/02 Respiratory abnormality 07/04 Overview: ICD-10 update of inactive term Umbilical hernia 05/10/2018 Insomnia 10/16/2014 Overview: ICD-10 update of inactive term COPD, severity to be determined 07/07/2011 Allergic rhinitis 05/10/2018 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 * Telephone Encounter - Mike Adams OSA - 01/24/2024 9:10 AM EDT Patient called back, he is all set up for here at on: 03/05/2024 Status: Jonnathan Time: 9:15 AM Length: 60 Visit Type: ECHOCARDIOGRAM [[id number]] Reg Status: Verified * Telephone Encounter - Radha Kaur RN - 01/23/2024 3:53 PM EDT Noted. Addressed with billing/rev management. Patient aware repeat study needed. Please assist in scheduling. Patient reports will be in [facility] Monday01/26/24 if any availability. * Telephone Encounter - Mike Adams OSA - 01/23/2024 2:05 PM EDT I received a message from Luh Hollins, about this patients previous ECHO. Please advise what can be done about not billing this patient twice for the stress ECHO, thank you. Below is the messages from Luh: Poor quality study. Can you please contact patient and make him aware that this Needs repeated withcontrast. Will need to be set up at . Can we please ensure that patient does not get charged for 2 studies as this is not the patient's fault. I will place a new order to scheduled as soon as possible. Thank you. Radha, This patient went to [facility] for an echo. They did not use definity, reported that itwas a sub-optimal study and recommended a repeat with definity. How do we go about this? The patient should not be getting charged for that echo. Thank you, Luh documented in this encounter Plan of Treatment Upcoming Encounters Date Type Department Care Team (Latest Contact Info) Description 02/02/2024 10:34 AM EDT Hospital Encounter OR [facility], Operating Room, [facility] - 4th Floor [address] [place] [address] Stiven Goodwin MD [address] [place] [address] 02/02/2024 10:34 AM EDT - 02/02/2024 12:03 PM EDT Surgery OR [facility], Operating Room, [facility] - 4th Floor [address] [place] [address] Stiven Goodwin MD [address] [place] [address] EPIGASTRIC/UMBILICA L HERNIA REPAIR INITIAL < 3 CM REDUCIBLE 02/05/2024 9:30 AM EDT Scheduled Telephone General Surgery, [facility] [address] [place] [address] Vito, Nurse Gen Surg [facility] [address] [place] [address] 02/14/2024 11:15 AM EDT Office Visit General Surgery, [facility] [address] [place] [address] Stiven Goodwin MD [address] [place] [address] 03/05/2024 9:15 AM EDT Cardiac Studies Card[facility] Studies, [facility] [place] [address] 04/23/2024 11:00 AM EDT Office Visit [facility]iology, [facility] [place] [address] Luh Garcia CRNP 132 [facility] [place] [address] 07/10/2024 2:40 PM EDT Office Visit Family Medicine [address] [place] [phone] Claude Mata MD [address] [place] [address] [place] [address] 07/15/2024 10:00 AM EDT Nurse Only Ancillary [address] [place] [address] [place], Nurse Annual Wellness [address] [place] [address] [place] [address] 10/01/2024 3:20 PM EST Office Visit Nephrology [address] [place] [address] Cande Soni MD [facility] [place] [address] 12/02/2024 2:20 PM EST Office Visit Dermatology [address] [place] [address] Dalila West PA-C [address] [place] [address] [place] [address] Scheduled Procedures Name Priority Associated Diagnoses Date/Ti [...] Additional history exists CKD PHOS USE SMARTSET 76139 10/05/202401/2024, 05/12/2022, 10/05/2020, Additional history exists CKD HGB USE SMARTSET 14746 11/30/202411/30, 12/01/2023, 10/05/2023, Additional history exists Pneumococcal [...] Agents on File Name Relationship Healthcare Agent [facility] Communication Susu Quezada Adult Child Health Care Repr esentative (appointed verbally by patient or by statute hierarchy) Care Teams Liquid Waste Treatment Plant Operator Relationship Specialty Start Date End Date Claude Mata MD [address] [place] [address] [place] [phone] PCP - General Family Medicine 11/13/23 documented as of this encounter
--- OUTSIDE RECORDS SUMMARY | 2024-01-31 09:22 | External Medical Summary | Summary of Care ---
Author Name Unknown Organization [facility] Address [address] [place] [address] Phone [phone] Care Team Providers Care Cycle Consultant Name Role Phone Claude Mata MD Primary Care Provide r Reason for Visit * Reason Onset Date Comments Billing Questions 01/23/2024 Encounter Details Date Type Department Care Team (Late st Contact Info) Description 01/23/2024 Telephone Cardiology, [facility] [address] [place] [address] Luh Garcia CRNP [address] [place] [address] Billing Questions Allergies Active Allergy Reactions Criticality [...] mouth in the morning. 0 Active Saline [place] 0.65 % Nasal Solution ([place]) Administer into nostril 1 [place] as needed for Congestion. 60 mL 5 [...] chronic kidney disease (HCC),Coronary artery disease involving [place] coronary artery of [place] heart without angina pectoris Take 1 Tablet [...] HFA 17 MCG/ACT Inhalation Aerosol Solution (ipratropium)Indicat ions:[place] workers pneumoconiosis (HCC) Inhale 2 Puffs by [...] disorder) 12/01/2023 Coronary artery disease invo lving [place] coronary artery of [place] heart without angina pectoris 12/01/2023 Pulmonary hypertension, [...] via [place], DME: [facility] Chronic rhinitis [...] appointment. 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 Addressed with billing/rev management. Patient aware repeat study needed. Please assist in scheduling. Patient reports will be in [facility] Monday01/26/24 if any availability. * Telephone [...] Thank you. Radha, This patient went to [facility] for an echo. They did not [...] 02/02/2024 10:34 AM EDT Hospital Encounter OR [facility], Operating Room, [facility] - 4th Floor [address] [place] [address] Stiven Goodwin MD [address] [place] [address] 02/02/2024 10:34 AM EDT - 02/02/2024 12:03 PM EDT Surgery OR [facility], Operating Room, [facility] - 4th Floor [address] [place] [address] Stiven Goodwin MD [address] [place] [address] EPIGASTRIC/UMBILICA L HERNIA REPAIR INITIAL < 3 CM REDUCIBLE 02/05/2024 9:30 AM EDT Scheduled Telephone General Surgery, [facility] [address] [place] [address] Vito Nurse Gen Surg [facility] [address] [place] [address] 02/14/2024 11:15 AM EDT Office Visit General Surgery, [facility] [address] [place] [address] Stiven Goodwin MD [address] [place] [address] 03/05/2024 9:15 AM EDT Cardiac Studies Cardiac Studies, [facility] [address] [place] [address] 04/23/2024 11:00 AM EDT Office Visit Cardiology, [facility] [address] [place] [address] Luh Garcia CRNP [address] [place] [address] 07/10/2024 2:40 PM EDT Office Visit Family Medicine [address] [place] [phone] Claude Mata MD [address] [place] [address] [place] [address] 07/15/2024 10:00 AM EDT Nurse Only Ancillary [address] [place] [address] Rubina, Nurse Annual [address] [place] [address] 10/01/2024 3:20 PM EST Office Visit Nephrology [address] [place] [address] [facility] [address] [facility] [address] 12/02/2024 2:20 PM EST Office Visit Dermatology [address] [place] [address] Dalila West PA-C [address] [place] [address] [place] [address] Scheduled Procedures Name Priority Associated Diagnoses Date/Ti me EPIGASTRIC/UMBILICAL HERNIA REPAIR INITIAL < 3 CM REDUCIBLE Umbilical hernia without obstruction and without gangrene 02/02/2024 10:34 AM EDT Health Maintenance Due Date Last Done Comments COVID-19 Vaccine (2022- season) 2023 01/07/2022, 12/31/2020, 12/03/2020 DTaP,Tdap,and Td Vaccines (2 - Td or Tdap) 10/14/2023 10/14/2013, 07/22/2008 Depression Screening 07/12/2024 07/12/2023 Albumin/Creatinine Ratio 10/05/2024 024, 02/14/2023, 04/07/2022, Additional history exists CKD PHOS USE SMARTSET 73303 10/05/202401/2024, 05/12/2022, 10/05/2020, Additional history exists CKD HGB USE SMARTSET 17933 11/30/202411/30, 12/01/2023, 10/05/2023, Additional history exists Pneumococcal [...] or by statute hierarchy) Care Teams Cycle Consultant Relationship Specialty Start Date End Date Claude Mata MD [address] [place] [address] [place] [address] PCP - General Family Medicine 11/13/23 documented as of this encounter
--- OUTSIDE RECORDS SUMMARY | 2024-01-31 09:23 | External Medical Summary | Summary of Care ---
Author Name Unknown Organization [facility] Address [address] [place] [address] Phone [phone] Care Team Providers Care Polish Compounder Name Role Phone Claude Mata MD Primary Care Provide r Reason for Visit * Reason Comments Medication Refill Encounter Details Date Type Department Care Team (Late st Contact Info) Description 01/17/2024 Refill Family Medicine [address] [phone] Deborah Whitaker [address] [place] [address] Rash Allergies Active Allergy Reactions Criticality Noted Date Comments Trazodone Other (Please comment) High 10/05/2023 Hallucinations documented as of this encounter (statuses as of 01/18/2024) Medications Medication Sig Dispensed Refills Start Date [...] mouth in the morning. 0 Active Saline [place] 0.65 % Nasal Solution ([place]) Administer into nostril 1 [place] as needed for Congestion. 60 mL 5 [...] chronic kidney disease (HCC),Coronary artery disease involving [place] coronary artery of [place] heart without angina pectoris Take 1 Tablet [...] HFA 17 MCG/ACT Inhalation Aerosol Solution (ipratropium)Indicat ions:[place] workers pneumoconiosis (HCC) Inhale 2 Puffs by [...] off after 12 hours 60 g 0 01/12/2024 Active Additional Information Patient not taking.Reported on 01/15/2024 documented as of this encounter (statuses as of 01/18/2024) Active Problems Problem Noted Date Diagnosed Date SOLEDAD (generalized anxiety disorder) 12/01/2023 Coronary artery disease invo lving [place] coronary artery of [place] heart without angina pectoris 12/01/2023 Pulmonary hypertension, unspecified 10/07/2023 HFrEF (heart failure with reduced ejection fract ion) 09/19/2023 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 GENERAL OSTEOARTHROSIS INSOMNIA W SLEEP APNEA [place] workers pneumoconiosis Restrictive lung disease documented as of this encounter (statuses as of 01/18/2024) Resolved Problems Problem Noted Date Diagnosed Date [...] Rotator cuff rupture 05/22/2003 018 LOC PRIM [id number] 05/22/200310/02 Prepatellar bursitis 05/22/2003 015 Inflammation of sacroiliac joint 10/12/2001 10/16/2014 LOC PRIM OSTEOARTH-HAND 10/12/200110/02 Respiratory abnormality 07/04 Overview: ICD-10 update of inactive term Umbilical hernia 05/10/2018 Insomnia 10/16/2014 Overview: ICD-10 update of inactive term COPD, severity to be determined 07/07/2011 Allergic rhinitis 05/10/2018 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 Apply from top of neck to toes all over, wash off after 12 hoursRefused By: MARLENE DAHL for Refusal: Duplicate Request documented in this encounter Plan of Treatment Upcoming Encounters Date Type Department Care Team (Latest Contact Info) Description 02/02/2024 12:44 PM EDT Hospital Encounter OR [facility], Operating Room, [facility] - 4th Floor [address] [place] [address] Stiven Goodwin MD [address] [place] [address] 02/02/2024 12:44 PM EDT - 02/02/2024 2:13 PM EDT Surgery OR [facility], Operating Room, [facility] - 4th Floor [address] [place] [address] Stiven Goodwin MD [address] [place] [address] EPIGASTRIC/UMBILICA L HERNIA REPAIR INITIAL < 3 CM REDUCIBLE 02/05/2024 9:30 AM EDT Scheduled Telephone General Surgery, [facility] [address] [place] [address] Vito, Nurse Gen Surg [facility] [place] [address] 02/14/2024 11:15 AM EDT Office Visit General Surgery, [facility] [address] [place] [address] Stiven Goodwin MD [address] [place] [address] 04/23/2024 11:00 AM EDT Office Visit Cardiology, [facility] 132 [facility] [place] [address] Luh Garcia CRNP [facility] [place] [address] 07/10/2024 2:40 PM EDT Office Visit Family Medicine [address] [place] [phone] Claude Mata MD [address] [place] [address] [place] [address] 07/15/2024 10:00 AM EDT Nurse Only Ancillary [address] [place] [address] Siriey, Nurse [address] [place] [address] 10/01/2024 3:20 PM EST Office Visit Nephrology [address] [place] [address] Cande Soni MD [address] [facility] [place] [address] 12/02/2024 2:20 PM EST Office Visit Dermatology [address] [place] [address] Dalila West PA-C [address] [place] [address] [place] [address] Scheduled Procedures Name Priority Associated Diagnoses Date/Ti me EPIGASTRIC/UMBILICAL HERNIA REPAIR INITIAL < 3 CM REDUCIBLE Umbilical hernia without obstruction and without gangrene 02/02/2024 12:44 PM EDT Health Maintenance Due Date Last Done Comments COVID-19 Vaccine ( season) 2023 01/07/2022, 12/31/2020, 12/03/2020 DTaP,Tdap,and Td Vaccines (2 - Td or Tdap) 10/14/2023 10/14/2013, 07/22/2008 Depression Screening 07/12/2024 07/12/2023 Albumin/Creatinine Ratio 10/05/2024 024, 02/14/2023, 04/07/2022, Additional history exists CKD PHOS USE SMARTSET 89610 10/05/202401/2024, 05/12/2022, 10/05/2020, Additional history exists CKD HGB USE SMARTSET 57478 11/30/202411/30, 12/01/2023, 10/05/2023, Additional history exists Pneumococcal [...] patient or by statute hierarchy) Care Teams Polish Compounder Relationship Specialty Start Date End Date Claude Mata MD [address] [place] [address] [place] [address] PCP - General Family Medicine 11/13/23 documented as of this encounter
--- OUTSIDE RECORDS SUMMARY | 2024-01-31 09:23 | External Medical Summary | Summary of Care ---
Author Name Unknown Organization [facility] Address [address] [place] [address] Phone [phone] Care Team Providers Care Fire Management Specialist Name Role Phone Claude Mata MD Primary Care Provide r Reason for Referral * Precert (Within 10 days (routine)) - Authorized Specialty Diagnoses / Procedures Referred By Contac t Referred To Contact Cardiac Studies Diagnoses HFrEF (heart failure with reduced ejection fraction) (HCC) Abnormal echocardiogram Coronary artery disease involving [place] coronary artery of [place] heart without angina pectoris Preoperative cardiovascular examination Stress-induced cardiomyopathy Procedures ECHO, COMPLETE (2D), TRANS-THORACIC Luh Garcia CRNP [address] [place] [address] Referral ID Status Reason Start Date Expiration Date V isits Requested Visits Authorized [id number] Authorized Precert 01/22/[phone] Encounter Details Date Type Department Care Team (Late st Contact Info) Description 01/22/2024 Orders Only Cardiology, [facility] [address] [place] [address] Luh Garcia CRNP [address] [place] [address] HFrEF (heart failure with reduced ejection fraction) (HCC)*; Abnormal echocardiogram; Coronary artery disease involving [place] coronary artery of [place] heart without angina pectoris; Preoperative cardiovascular examination; Stress-induced cardiomyopathy Allergies Active Allergy Reactions Criticality Noted Date Comments Trazodone Other (Please comment) High 10/05/2023 Hallucinations documented as of this encounter (statuses as of 01/22/2024) Medications Medication Sig Dispensed Refills Start Date [...] mouth in the morning. 0 Active Saline [place] 0.65 % Nasal Solution ([place]) Administer into nostril 1 [place] as needed for Congestion. 60 mL 5 [...] chronic kidney disease (HCC),Coronary artery disease involving [place] coronary artery of [place] heart without angina pectoris Take 1 Tablet [...] failure and stage 3b chronic kidney disease ([facility]) Take 1 Tablet by mouth in the morning. 100 Tablet 1 09/19/2023 Active Tamsulosin HCl 0.4 MG Oral Capsule (Flomax)Indications: BPH with obstruction/lower urinary tract symptoms Take 1 Capsule by mouth in the morning. 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 90 Tablet 3 10/12/2023 Active Atrovent HFA 17 MCG/ACT Inhalation Aerosol Solution (ipratropium)Indicat ions:[place] workers pneumoconiosis ([facility]) Inhale 2 Puffs by mouth in the [...] :HFrEF (heart failure with reduced ejection fraction) ([facility]) Alternate 50 mg, with 100 mg, daily. 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 GENERAL OSTEOARTHROSIS INSOMNIA W SLEEP APNEA [place] workers pneumoconiosis Restrictive lung disease documented as of this encounter (statuses as of 01/22/2024) Resolved Problems Problem Noted Date Diagnosed Date [...] Rotator cuff rupture 05/22/2003 018 LOC PRIM [id number] 05/22/200310/02 Prepatellar bursitis 05/22/2003 015 Inflammation of sacroiliac joint 10/12/2001 10/16/2014 LOC PRIM OSTEOARTH-HAND 10/12/200110/02 Respiratory abnormality 07/04 Overview: ICD-10 update of inactive term Umbilical hernia 05/10/2018 Insomnia 10/16/2014 Overview: ICD-10 update of inactive term COPD, severity to be determined 07/07/2011 Allergic rhinitis 05/10/2018 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 Poor quality study. Needs repeated with [facility]. ? Apical thrombus. Hx of CAD, ischemic cardiomyopathy, HFrEF documented in this encounter Plan of Treatment Upcoming Encounters Date Type Department Care Team (Latest Contact Info) Description 02/02/2024 10:34 AM EDT Hospital Encounter OR [facility], Operating Room, [facility] - 4th Floor [address] [place] [address] Stiven Goodwin MD [address] [place] [address] 02/02/2024 10:34 AM EDT - 02/02/2024 12:03 PM EDT Surgery OR [facility], Operating Room, [facility] - 4th Floor [address] [place] [address] Stiven Goodwin MD [address] [place] [address] EPIGASTRIC/UMBILICA L HERNIA REPAIR INITIAL < 3 CM REDUCIBLE 02/05/2024 9:30 AM EDT Scheduled Telephone General Surgery, [facility] 132 [facility] [place] [address] Vito Nurse Gen Surg [facility] [address] [facility] [place] [address] 02/14/2024 11:15 AM EDT Office Visit General Surgery, [facility] [place] [address] Stiven Goodwin MD [address] [place] [address] 04/23/2024 11:00 AM EDT Office Visit Cardiology, [facility] [address] [facility] [place] [address] Luh Garcia CRNP [facility] [place] [address] 07/10/2024 2:40 PM EDT Office Visit Family Medicine [address] [place] [phone] Claude Mata MD [address] [place] [address] [place] [address] 07/15/2024 10:00 AM EDT Nurse Only Ancillary [address] [place] [address] Rubina, Nurse Annual [address] [place] [address] 10/01/2024 3:20 PM EST Office Visit Nephrology [address] [place] [address] Cande Soni MD [address] [place] [address] 12/02/2024 2:20 PM EST Office Visit Dermatology [address] [place] [address] Dalila West PA-C [address] [place] [address] [place] [address] Scheduled Orders Name Type Priority Associated Diagnoses Orde r Schedule ECHO, COMPLETE (2D), TRANS-THORACIC Echocardiology Routine HFrEF (heart failure with reduced ejection fraction) (HCC) Abnormal echocardiogram Coronary artery disease involving [place] coronary artery of [place] heart without angina pectoris Preoperative cardiovascular examination Stress-induced cardiomyopathy Expected: 01/22/2024 (Approximate), Expires: 07/23/2024 Scheduled Procedures Name Priority Associated Diagnoses Date/Ti [...] Additional history exists CKD PHOS USE SMARTSET 46675 10/05/202401/2024, 05/12/2022, 10/05/2020, Additional history exists CKD HGB USE SMARTSET 05552 11/30/202411/30, 12/01/2023, 10/05/2023, Additional history exists Pneumococcal [...] failure with reduced ejection fraction) (HCC)- Primary Abnormal echocardiogram Nonspecific (abnormal) findings on radiological and other examination of other intrathoracic organs Coronary artery disease involving [place] coronary artery of [place] heart without angina pectoris Preoperative cardiovascular examination Pre-operative cardiovascular examination Stress-induced cardiomyopathy Takotsubo syndrome Umbilical hernia without obstruction and without gangrene [...] patient or by statute hierarchy) Care Teams Fire Management Specialist Relationship Specialty Start Date End Date Claude Mata MD [address] [place] [address] [place] [address] PCP - General Family Medicine 11/13/23 documented as of this encounter
--- OUTSIDE RECORDS SUMMARY | 2024-01-31 09:24 | External Medical Summary | Summary of Care ---
Author Name Unknown Organization [facility] Address [address] [place] [address] Phone [phone] Care Team Providers Care Marine Erector Name Role Phone Claued Mata MD Primary Care Provide r Reason for Visit * Reason Onset Date Comments Appointment 12/20/2023 case management 12/20/2023 Encounter Details Date Type Department Care Team (Late st Contact Info) Description 12/20/2023 Telephone Care Coordination and Integration [address] [place] [address] Jeanie Estrada, RN [address], [place] [phone] Appointment; case management Allergies Active Allergy Reactions Criticality Noted Date Comments Trazodone Other (Please comment) High 10/05/2023 Hallucinations documented as of this encounter (statuses as of 01/15/2024) Medications Medication Sig Dispensed Refills Start Date [...] mouth in the morning. 0 Active Saline [place] 0.65 % Nasal Solution ([place]) Administer into nostril 1 [place] as needed for Congestion. 60 mL 5 [...] chronic kidney disease (HCC),Coronary artery disease involving [place] coronary artery of [place] heart without angina pectoris Take 1 Tablet [...] HFA 17 MCG/ACT Inhalation Aerosol Solution (ipratropium)Indicat ions:[place] workers pneumoconiosis (HCC) Inhale 2 Puffs by [...] :HFrEF (heart failure with reduced ejection fraction) ([facility]) Alternate 50 mg, with 100 mg, daily. [...] the morning. 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 GENERAL OSTEOARTHROSIS INSOMNIA W SLEEP APNEA [place] workers pneumoconiosis Restrictive lung disease documented as of this encounter (statuses as of 01/15/2024) Resolved Problems Problem Noted Date Diagnosed Date [...] Rotator cuff rupture 05/22/2003 018 LOC PRIM [id number] 05/22/200310/02 Prepatellar bursitis 05/22/2003 015 Inflammation of sacroiliac joint 10/12/2001 10/16/2014 LOC PRIM OSTEOARTH-HAND 10/12/200110/02 Respiratory abnormality 07/04 Overview: ICD-10 update of inactive term Umbilical hernia 05/10/2018 Insomnia 10/16/2014 Overview: ICD-10 update of inactive term COPD, severity to be determined 07/07/2011 Allergic rhinitis 05/10/2018 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 He also has an appointment with nephrology this date. Could you please call patient and assist with rescheduling his nephrology appointment? This needs to be scheduled for the [facility] clinic. Thank you. documented in this encounter Plan of Treatment Upcoming Encounters Date Type Department Care Team (Latest Contact Info) Description 02/02/2024 12:44 PM EDT Hospital Encounter OR [facility], Operating Room, [facility] - 4th Floor [address] [facility] [place] [address] Stiven Goodwin MD [address] [place] [address] 02/02/2024 12:44 PM EDT - 02/02/2024 2:13 PM EDT Surgery OR [facility], Operating Room, [facility] - 4th Floor 400 [facility] [place] [address] Stiven Goodwin MD [address] [place] [address] EPIGASTRIC/UMBILICA L HERNIA REPAIR INITIAL < 3 CM REDUCIBLE 02/05/2024 9:30 AM EDT Scheduled Telephone General Surgery, [facility] [address] [place] [address] Vito, Nurse Gen Surg [facility] [address] [place] [address] 02/14/2024 11:15 AM EDT [facility] [address] [place] [address] Stiven Goodwin MD [address] [place] [address] 04/23/2024 11:00 AM EDT Office Visit Cardiology, [facility] [address] [place] [address] Luh Garcia CRNP [address] [place] [address] 07/10/2024 2:40 PM EDT Office Visit Family Medicine [address] [place] [phone] Claude Mata MD [address] [place] [address] [place] [address] 07/15/2024 10:00 AM EDT Nurse Only Ancillary [address] [place] [address] [place], Nurse Annual [address] [place] [address] 10/01/2024 3:20 PM EST Office Visit Nephrology [address] [place] [address] Cande Soni MD [facility] [address] 12/02/2024 2:20 PM EST Office Visit Dermatology [address] [place] [address] Dalila West PA-C [address] [place] [address] [place] [address] Scheduled Procedures Name Priority Associated Diagnoses Date/Ti [...] Additional history exists CKD PHOS USE SMARTSET 02152 10/05/2024 01/0 01/2024, 05/12/2022, 10/05/2020, Additional history exists CKD HGB USE SMARTSET 25354 11/30/202411/30, 12/01/2023, 10/05/2023, Additional history exists Pneumococcal [...] Agents on File Name Relationship [facility] Communication Susu Quezada Adult Child Health Care Repr esentative (appointed verbally by patient or by statute hierarchy) Care Teams Marine Erector Relationship Specialty Start Date End Date Claude Mata MD [address] [place] [address] [place] [phone] PCP - General Family Medicine 11/13/23 documented as of this encounter
--- OUTSIDE RECORDS SUMMARY | 2024-01-31 09:24 | External Medical Summary | Summary of Care ---
Author Name Unknown Organization [facility] Address [address] [place] [address] Phone [phone] Care Team Providers Care Shoer Name Role Phone Claude Mata MD Primary Care Provide r Encounter Details Date Type Department Care Team (Late st Contact Info) Description 01/12/2024 Telephone Family Medicine [address] [phone] Claude Mata MD [address] [place], [place] [address] [address] Allergies Active Allergy Reactions Criticality Noted Date [...] mouth in the morning. 0 Active Saline [place] 0.65 % Nasal Solution ([place]) Administer into nostril 1 [place] as needed [...] chronic kidney disease (HCC),Coronary artery disease involving [place] coronary artery of [place] heart without angina pectoris Take 1 Tablet [...] HFA 17 MCG/ACT Inhalation Aerosol Solution (ipratropium)Indicat ions:[place] workers pneumoconiosis (HCC) Inhale 2 Puffs by [...] the morning. 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 GENERAL OSTEOARTHROSIS INSOMNIA W SLEEP APNEA [place] workers pneumoconiosis Restrictive lung disease documented as [...] Rotator cuff rupture 05/22/2003 018 LOC PRIM [id number] 05/22/200310/02 Prepatellar bursitis 05/22/2003 015 Inflammation of sacroiliac joint 10/12/2001 10/16/2014 LOC PRIM OSTEOARTH-HAND 10/12/200110/02 Respiratory abnormality 07/04 Overview: ICD-10 update of inactive term Umbilical hernia 05/10/2018 Insomnia 10/16/2014 Overview: ICD-10 update of inactive term COPD, severity to be determined 07/07/2011 Allergic rhinitis 05/10/2018 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 NOS-J2EE ARCHITECT 07/04 Bilateral carpal tunnel syndrome 05/10/2018 CKD [...] encounter Miscellaneous Notes * Telephone Encounter - Katharina Cooper LPN - 01/15/2024 11:11 AM EDT Noted, thanks. * Telephone Encounter - Jeanie Estrada RN - 01/12/2024 4:32 PM EDT I still follow him. I haven't had any messages from him, except one - when the blood blister on his toe broke. That's the only one. I will give him a call on Monday. Thank you. * Telephone Encounter - Katharina Cooper LPN - 01/12/2024 3:03 PM EDT CHIO Ware, I don't know if you still follow this pt. He said has been trying to reach you for a couple weeks now and left messages on your voice mail. I just thought I would reach out to you. Do you still follow him or no? Thanks. documented in this encounter Plan of Treatment Upcoming Encounters Date Type Department Care Team (Latest Contact Info) Description 02/02/2024 12:44 PM EDT Hospital Encounter OR [facility], Operating Room, [facility] - 4th Floor [address] [place] [address] Stiven Goodwin MD [address] [place] [address] 02/02/2024 12:44 PM EDT - 02/02/2024 2:13 PM EDT Surgery OR [facility], Operating Room, [facility] - 4th Floor [address] [place] [address] Stiven Goodwin MD [address] [place] [address] EPIGASTRIC/UMBILICA L HERNIA REPAIR INITIAL < 3 CM REDUCIBLE 02/05/2024 9:30 AM EDT Scheduled Telephone General Surgery, [facility] [address] [facility] [place] [address] Nurse Vito Gen Surg [facility] [place] [address] 02/14/2024 11:15 AM EDT Office Visit General Surgery, [facility] [address] [facility] [place] [address] Stiven Goodwin MD [address] [place] [address] 04/23/2024 11:00 AM EDT Office Visit Cardiology, [facility] 132 [facility] [place] [address] Luh Garcia CRNP [address] [place] [address] 07/10/2024 2:40 PM EDT Office Visit Family Medicine [address] [place] [phone] Claude Mata MD [address] [place] [address] [place] [address] 07/15/2024 10:00 AM EDT Nurse Only Ancillary [address] [place] [address] Rubina, Nurse Annual [address] [place] [address] 10/01/2024 3:20 PM EST Office Visit Nephrology [address] [place] [address] Cande Soni MD 200 [facility] [place] [address] 12/02/2024 2:20 PM EST Office Visit Dermatology [address] [place] [address] Dalila West PA-C [address] [place] [address] [place] [address] Scheduled Procedures Name Priority Associated Diagnoses Date/Ti [...] Additional history exists CKD PHOS USE SMARTSET 80990 10/05/202401/2024, 05/12/2022, 10/05/2020, Additional history exists CKD HGB USE SMARTSET 73225 11/30/202411/30, 12/01/2023, 10/05/2023, Additional history exists Pneumococcal [...] patient or by statute hierarchy) Care Teams Shoer Relationship Specialty Start Date End Date Claude Mata MD [address] [place] [address] [place] [phone] PCP - General Family Medicine 11/13/23 documented as of this encounter
--- OUTSIDE RECORDS SUMMARY | 2024-01-31 09:25 | External Medical Summary | Summary of Care ---
Author Name Unknown Organization [facility] Address [address] [place] [address] Phone [phone] Care Team Providers Care Plastic Fixture Builder Name Role Phone Claude Mata MD Primary Care Provide r Reason for Visit * Reason Onset Date Comments case management 09/19/2023 FYI 09/19/2023 Encounter Details Date Type Department Care Team (Latest Contact Info) Description 09/19/2023 Finance Mgr Telephone Care Coordination and Integration [address] [place] [address] Jeanie Estrada RN [address], [place] [phone] case management; Allergies Active Allergy Reactions Criticality Noted Date [...] mouth in the morning. 0 Active Saline [place] 0.65 % Nasal Solution ([place]) Administer into nostril 1 [place] as needed for Congestion. 60 mL 5 [...] chronic kidney disease (HCC),Coronary artery disease involving [place] coronary artery of [place] heart without angina pectoris Take 1 Tablet [...] the morning. 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 He has [facility] scales for heart failure monitoring. 09/14/23 169.8 lbs 09/15/23 168.7 lbs 09/16/23 167.9 lbs 09/17/23 166.1 lbs 09/18/23 165.7 lbs 09/19/23 165.4 lbs Patient's weight previous had ranged between 172-176 lbs. Has appointment with you today. documented in this encounter Plan of Treatment Upcoming Encounters Date Type Department Care Team (Latest Contact Info) Description 02/02/2024 12:44 PM EDT Hospital Encounter OR [facility], Operating Room, [facility] - 4th Floor [address] [place] [address] Stiven Goodwin MD [address] [place] [address] 02/02/2024 12:44 PM EDT - 02/02/2024 2:13 PM EDT Surgery OR [facility], Operating Room, [facility] - 4th Floor 400 [place] [address] Stiven Goodwin MD [address] [place] [address] EPIGASTRIC/UMBILICA L HERNIA REPAIR INITIAL < 3 CM REDUCIBLE 02/05/2024 9:30 AM EDT Scheduled Telephone General Surgery, [facility] [address] [place] [address] Nurse Vito Gen Surg [facility] [address] [place] [address] 02/14/2024 11:15 AM EDT Office Visit General Surgery, [facility] [address] [place] [address] Stiven Goodwin MD [address] [place] [address] 04/23/2024 11:00 AM EDT Office Visit Cardiology, [facility] [address] [place] [address] Luh Garcia CRNP [address] [place] [address] 07/10/2024 2:40 PM EDT Office Visit Family Medicine [address] [place] [phone] Claude Mata MD [address] [place] [address] [place] [address] 07/15/2024 10:00 AM EDT Nurse Only Ancillary [address] [place] [address] Siriey, Nurse [address] [place] [address] 10/01/2024 3:20 PM EST Office Visit Nephrology [address] [place] [address] Cande Soni MD [facility] [place] [address] 12/02/2024 2:20 PM EST Office Visit Dermatology [address] [place] [address] Dalila West PA-C [address] [place] [address] [place] [address] Scheduled Procedures Name Priority Associated Diagnoses Date/Ti [...] Additional history exists CKD PHOS USE SMARTSET 77306 10/05/2024/01/2024, 05/12/2022, 10/05/2020, Additional history exists CKD HGB USE SMARTSET 58357 11/30/202411/30, 12/01/2023, 10/05/2023, Additional history exists Pneumococcal [...] Agents on File Name Relationship Healthcare Agent [facility] Communication Susu Quezada Adult Child Health Care Repr esentative (appointed verbally by patient or by statute hierarchy) Care Teams Plastic Fixture Builder Relationship Specialty Start Date End Date Claude Mata MD [address] [place] [address] [place] [address] PCP - General Family Medicine 11/13/23 documented as of this encounter
--- OUTSIDE RECORDS SUMMARY | 2024-01-31 09:25 | External Medical Summary | Summary of Care ---
Author Name Unknown Organization [facility] Address [address] [place] [address] Phone [phone] Care Team Providers Care Small Parts Shaper Operator Name Role Phone Claude Mata MD Primary Care Provide r Reason for Visit * Reason Comments Rash Encounter Details Date Type Department Care Team (Late st Contact Info) Description 01/12/2024 3:00 PM EDT Office Visit Family Medicine [address] [place] [phone] Deborah Whitaker [address] [place] [address] Rash* Allergies Active Allergy Reactions Criticality Noted Date Comments Trazodone Other (Please comment) High 10/05/2023 Hallucinations documented as of this encounter (statuses as of 01/12/2024) Medications Medication Sig Dispensed Refills Start Date [...] mouth in the morning. 0 Active Saline [place] 0.65 % Nasal Solution ([place]) Administer into nostril 1 [place] as needed for Congestion. 60 mL 5 [...] chronic kidney disease (HCC),Coronary artery disease involving [place] coronary artery of [place] heart without angina pectoris Take 1 Tablet [...] HFA 17 MCG/ACT Inhalation Aerosol Solution (ipratropium)Indicat ions:[place] workers pneumoconiosis (HCC) Inhale 2 Puffs by [...] after 12 hours 60 g 0 01/12/2024 4 Active documented as of this encounter (statuses as of 01/12/2024) Active Problems Problem Noted Date Diagnosed Date SOLEDAD (generalized anxiety disorder) 12/01/2023 Coronary artery disease invo lving [place] coronary artery of [place] heart without angina pectoris 12/01/2023 Pulmonary hypertension, [...] appointment. GENERAL OSTEOARTHROSIS INSOMNIA W SLEEP APNEA [place] workers pneumoconiosis Restrictive lung disease documented as of this encounter (statuses as of 01/12/2024) Resolved Problems Problem Noted Date Diagnosed Date [...] Rotator cuff rupture 05/22/2003 018 LOC PRIM [id number] 05/22/200310/02 Prepatellar bursitis 05/22/2003 015 Inflammation of sacroiliac joint 10/12/2001 10/16/2014 LOC PRIM OSTEOARTH-HAND 10/12/200110/02 Respiratory abnormality 07/04 Overview: ICD-10 update of inactive term Umbilical hernia 05/10/2018 Insomnia 10/16/2014 Overview: ICD-10 update of inactive term COPD, severity to be determined 07/07/2011 Allergic rhinitis 05/10/2018 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 07/04 Bilateral carpal tunnel syndrome 05/10/2018 CKD (chronic kidney disease), stage III 12/11/2018 Benign hypertension with CKD (chronic kidney disease) stage III 02/11/2021 Overview: Per CKD protocol documented as of this encounter (statuses as of 01/12/2024) Immunizations Name Administration Dates Next Due COVID-19 [...] 0 05/19/1955 - [birth year]19/1960 Smokeless Tobacco: Never Tobacco Cessation:Counseling Given: [...] Sign Reading Time Taken Comments Blood Pressure 120/60 01/12/2024 2:54 PM EDT Pulse 67 01/12/2024 2:54 PM EDT Temperature 35.8 C (96.4 F) 01/12/2024 2:54 PM ED T Respiratory Rate 16 01/12/2024 2:54 PM EDT Oxygen Saturation 95% 01/12/2024 2:54 PM EDT Inhaled Oxygen Concentration - - Weight 81.8 kg (180 lb 4 oz) 01/12/2024 2:54 PM EDT Height - - Body Mass Index 22.99 10/25/2023 12:45 PM EST documented in this encounter Nursing Notes * Katharina Cooper LPN - 01/12/2024 2:52 PM EDT Rash not better. Triamcinolone not helping. documented in this encounter Plan of Treatment Upcoming Encounters Date Type Department Care Team (Latest Contact Info) Description 02/02/2024 12:44 PM EDT Hospital Encounter OR [facility], Operating Room, [facility] - 4th Floor [address] [place] [address] Stiven Goodwin MD [address] [place] [address] 02/02/2024 12:44 PM EDT - 02/02/2024 2:13 PM EDT Surgery OR [facility], Operating Room, [facility] - 4th Floor [address] [place] [address] Stiven Goodwin MD [address] [place] [address] EPIGASTRIC/UMBILICA L HERNIA REPAIR INITIAL < 3 CM REDUCIBLE 02/05/2024 9:30 AM EDT Scheduled Telephone General Surgery, [facility] 132 [facility] [place] [address] Nurse Vito Gen Surg [facility] 132 [facility] [place] [address] 02/14/2024 11:15 AM EDT Office Visit General Surgery, [facility] 132 [facility] [place] [address] Stiven Goodwin MD 132 [facility] [place] [address] 04/23/2024 11:00 AM EDT Office Visit Cardiology, [facility] 132 [facility] [place] [address] Luh Garcia CRNP 132 [facility] [address] 07/10/2024 2:40 PM EDT Office Visit Family Medicine [address] [place] [phone] Claude Mata MD [address] [place] [address] [place] [address] 07/15/2024 10:00 AM EDT Nurse Only Ancillary [address] [place] [address] Mov[place], Nurse Annual [address] [place] [address] 10/01/2024 3:20 PM EST Office Visit Nephrology [address] [place] [address] Cande Soni MD 200 [facility] [place] [address] 12/02/2024 2:20 PM EST Office Visit Dermatology [place] [address] [place] [address] Dalila West PA-C [address] [place] [address] [place] [address] Scheduled Procedures Name Priority Associated Diagnoses Date/Ti [...] Additional history exists CKD PHOS USE SMARTSET 18640 10/05/202401/2024, 05/12/2022, 10/05/2020, Additional history exists CKD HGB USE SMARTSET 72936 11/30/202411/30, 12/01/2023, 10/05/2023, Additional history exists Pneumococcal [...] as of this encounter Visit Diagnoses Diagnosis Rash- Primary Rash and other nonspecific skin eruption Umbilical [...] patient or by statute hierarchy) Care Teams Small Parts Shaper Operator Relationship Specialty Start Date End Date Claude Mata MD [address] [place] [address] [place] [phone] PCP - General Family Medicine 11/13/23 documented as of this encounter
[2024-01-31] MEDS: FUROSEMIDE 40 MG/4 ML VIAL IV SCH (09:57)
[2024-01-31] MEDS: guaiFENesin 600 MG TABCR PO PRN (09:59)
[2024-01-31] MEDS: MULTIVITAMIN TAB PO SCH (09:59)
[2024-01-31] MEDS: METOPROLOL SUCC 25MG EXT REL TAB PO SCH (10:00)
[2024-01-31] MEDS: FAMOTIDINE 20 MG TAB PO SCH (10:00)
[2024-01-31] MEDS: ISOSORBIDE MONO EXTENDED REL 60 MG TABCR PO SCH (10:00)
[2024-01-31] MEDS: ASPIRIN 81 MG ECTAB PO SCH (10:01)
[2024-01-31] MEDS: CYANOCOBALAMIN (B-12) 100 MCG TABLET PO SCH (10:01)
[2024-01-31] MEDS: CITALOPRAM 20 MG TAB PO SCH (10:01)
[2024-01-31] MEDS: FLUTICASONE PROPIONATE NA SPR 16 GM BTL NAE SCH (10:02)
[2024-01-31 10:47] LABS: ANTI-Xa, UFH(UnfractionatedHep 0.46 IU/ml (0.3-0.7)
--- NOTE | 2024-01-31 12:48 | Cardiology Consultation ---
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 Elevated troponin likely type II event secondary to demand ischemia in the setting of respiratory insufficiency and acute heart failure. I would not recommend invasive management at this time. Continue conservative medical treatment with IV heparin. Continue IV diuresis with Lasix 60 mg twice daily. Consider titration to 80 mg twice daily pending clinical response. Monitor fluid balance, daily weight, GFR, and electrolytes. Review repeat echocardiogram when available. Manage of COVID-19 infection possible pneumonia as per internal medicine. History of Present Illness Reason for Consultation: Decompensated heart failure with reduced ejection fraction. Requesting Physician: Eufemia Bah PA-C Attending Physician: Richie García MD History of Present Illness Complex 88-year-old patient presented to the emergency department with shortness of breath and chills. Complex medical history noted below. From a cardiac perspective he was hospitalized earlier this year due to acute decompensated heart failure reduced ejection fraction in setting of underlying ischemic heart disease. Troponin significantly elevated during that visit with reported anginal symptoms. He was managed conservatively without anticoagulation due to hemoptysis at that time. Currently, patient does not endorse any recent chest discomfort. No shortness of breath and chills which prompted ER evaluation. Diagnosed with COVID-19 as well as possible bilateral pneumonia in the ER. X-ray evidence of interstitial edema although somewhat difficult to discern from his chronic interstitial changes. Denies orthopnea or PND. No recent edema or weight gain. Most recent echocardiogram performed in the [facility] clinic reporting a left ventricular ejection fraction of 45-50% with apical akinesis and posterior lateral hypokinesis. Elevated troponin on admission, however there are no new ECG changes to suggest ongoing ischemia. Patient denies any recent anginal symptoms. IV heparin initiated in the ER. Denies recurrent hemoptysis. Allergies Allergy/AdvReac Type Severity Reaction Status Date / Time No Known Allergies Allergy Verified 01/26/24 09:10 Home Medications Medication Instructions Recorded Confirmed Type aspirin 81 mg tablet,delayed 81 mg PO DAILY 05/21/19 01/30/24 History release tamsulosin 0.4 mg capsule 0.4 mg PO BID 05/21/19 01/30/24 History multivitamin-ferrous 1 tab PO DAILY 05/22/19 01/30/24 History fumarate-folic acid 18 mg-400 mcg tablet (Centrum Complete) citalopram 10 mg tablet 20 mg PO QAM 03/06/23 01/30/24 History cyanocobalamin (vitamin B-12) 100 100 mcg PO QAM 03/06/23 01/30/24 History mcg tablet (Vitamin B-12) famotidine 20 mg tablet 20 mg PO QAM 03/06/23 01/30/24 History guaifenesin 600 mg tablet, 600 mg PO Q12H PRN Cough 03/06/23 01/30/24 History extended release 12 hr ipratropium bromide 17 2 puff inhalation QID 03/06/23 01/30/24 History mcg/actuation HFA aerosol inhaler (Atrovent HFA) pantoprazole 20 mg tablet,delayed 20 mg PO DAILYBB 03/06/23 01/30/24 History release sodium chloride 0.65 % nasal spray 1 spray intranasal BID PRN NASAL 03/06/23 01/30/24 History aerosol (Saline Nasal) DRYNESS empagliflozin 10 mg tablet 10 mg PO QAM 09/09/23 01/30/24 History (Jardiance) fluticasone propionate 50 2 sprays intranasal QAM 09/09/23 01/30/24 History mcg/actuation nasal spray,suspension rosuvastatin 10 mg tablet 10 mg PO HS 09/09/23 01/30/24 History clopidogrel 75 mg tablet 75 mg PO QAM #30 tabs 09/12/23 01/30/24 Rx isosorbide mononitrate 60 mg 60 mg PO QAM #30 tabs 09/12/23 01/30/24 Rx tablet,extended release 24 hr metoprolol succinate 25 mg 25 mg PO QAM #30 tabs 09/12/23 01/30/24 Rx tablet,extended release 24 hr nitroglycerin 0.4 mg sublingual 0.4 mg sublingual Q5M PRN chest 09/12/23 01/30/24 Rx tablet (Nitrostat) pain #30 tabs torsemide 100 mg tablet 100 mg PO UD 11/16/23 01/30/24 History cephalexin 500 mg capsule 500 mg PO TID 10 days #30 caps 01/22/24 01/30/24 Rx allopurinol 100 mg tablet 100 mg PO UD 01/30/24 01/30/24 History Patient History Medical History BPH (benign prostatic hyperplasia) Acute on chronic HFrEF (heart failure with reduced ejection fraction) Acute on chronic renal failure Elevated troponin I level Chest pain Pulmonary edema Stage 3b chronic kidney disease (CKD) Cough with hemoptysis Bilateral pleural effusion Dyspnea on exertion HFrEF (heart failure with reduced ejection fraction) History of prostate cancer s/p XRT with brachy boost HTN (hypertension) Restrictive lung disease 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, coal, workers' Prostate cancer (11/03/14) "Rising PSA to 7.46 Status post ultrasound-guided biopsies revealing adenocarcinoma [place] 4+3, biopsy stage T2c Initiation of hormone suppression prior to prostate seed implant, short course Status post prostate seed implant 02/03/2015 with cesium 131 received 8500 cGy 50 seeds placed Status post completion of IMRT/IGRT 04/28/2015 received 4500 cGy " On 05/26/15 14:44 Shira Goldberg wrote "Rising PSA to 7.46 Status post ultrasound-guided biopsies revealing adenocarcinoma [place] 4+3, biopsy stage T2c Initiation of hormone suppression prior to prostate seed implant Status post prostate seed implant 02/03/2015 with cesium 131 received 8500 cGy 50 seeds placed Status post completion of IMRT/IGRT 04/28/2015 received 4500 cGy " On 05/01/15 12:43 Sandra Marquez wrote "Rising PSA to 7.46 Status post ultrasound-guided biopsies revealing adenocarcinoma [place] 4+3, biopsy stage T2c Initiation of hormone suppression Status post prostate seed implant 02/03/2015 with cesium 131 received 8500 cGy 50 seeds placed Status post completion of IMRT/IGRT 04/28/2015 received 4500 cGy " On 03/17/15 15:55 Sandra Marquez wrote "Rising PSA to 7.46 Status post ultrasound-guided biopsies revealing adenocarcinoma [place] 4+3, biopsy stage T2c Initiation of hormone suppression Status post prostate seed implant 02/03/2015 with cesium 131 received 8500 cGy 50 seeds placed Now for completion of IMRT/IGRT" Surgical History History of appendectomy H/O shoulder surgery Family History Other Heart disease Social History Smoking Status: Never smoker Tobacco Type: Cigarettes Second Hand Exposure: No; Do You Dip or Chew Tobacco: No; Hx Alcohol Use: No Hx Substance Use: No Preferred Language: [place] Communication Ability: Effective Hvac Lead Required: No Beliefs That Will Affect Care: None marital status: / Current Living Situation: Alone Feels Safe at Home: Yes Safety Concerns: Feels Safe At This Time Assistive Devices: Cane, Oxygen - at Night and Walker Review of Systems Review of Systems: All systems reviewed & are unremarkable except as noted in Subjective Physical Exam Constitutional: well nourished and + ill appearing; no acute distress Respiratory: normal respiratory effort; no respiratory distress and no retractions Auscultation: + diminished lung sounds (Bases bilateral.); no rhonchi and no wheezes Cardiovascular: Rate/Rhythm: regular rate and regular rhythm Heart Sounds: normal S1 and normal S2; no murmur Vessels: radial pulses present; no JVD Extremities: no edema Gastrointestinal (Abdomen): Inspection/Auscultation: abdomen normal to insp ection and normal bowel sounds; abdomen not distended Percussion/Palpation: abdomen soft; abdomen nontender, no guarding and abdomen not rigid Neurologic: CN's II-XI intact bilaterally and moves all extremities Results & Data Vital Signs (Past 12 Hours) Vital Signs Temp Pulse Resp BP BP Pulse Ox O2 Del Method 01/31/24 11:57 36.2 C L 74 18 114/58 L 97 Room Air 01/31/24 10:55 72 16 98 Room Air 01/31/24 08:26 36.6 C 81 16 119/63 96 Room Air 01/31/24 07:21 78 18 96 Room Air 01/31/24 03:41 36.6 C 69 18 116/59 L 96 Room Air Laboratory Results Cardiac Enzymes 01/30/24 01/30/24 01/30/24 Range/Units 11:46 12:44 14:29 AST 18 (13-39) U/L Troponin I High Sens 640.8 H* 1265.1 H* D (0-20) pg/ml B-Natriuretic Peptide 1280 H (0-100) pg/ml 01/30/24 01/31/24 01/31/24 Range/Units 20:14 01:49 01:49 AST 23 (13-39) U/L Troponin I High Sens 2262.5 H* D Cancelled 2186.1 H* (0-20) pg/ml B-Natriuretic Peptide (0-100) pg/ml Coagulation 01/30/24 01/30/24 Range/Units 11:46 12:44 PT 11.9 (9.0-12.0) Seconds APTT 30 (21-31) Seconds B-Natriuretic Peptide 1280 H (0-100) pg/ml CBC 01/30/24 01/31/24 Range/Units 11:46 01:49 WBC 21.93 H 13.48 H (4.8-10.8) K/ul RBC 4.10 L 3.63 L (4.70-6.10) M/uL Hgb 11.3 L 9.9 L (14.0-18.0) g/dl Hct 35.0 L 30.7 L (42.0-52.0) % Plt Count 284 232 (130-400) K/uL Neut # (Auto) 19.50 H (1.40-6.50) K/uL Lymph # (Auto) 0.81 L (1.20-3.40) K/uL [place] # (Auto) 1.31 H (0.11-0.59) K/uL Eos # (Auto) 0.05 (0.00-0.50) K/uL Baso # (Auto) 0.11 (0.00-0.20) K/uL Comprehensive Metabolic Panel 01/30/24 01/31/24 Range/Units 11:46 01:49 Sodium 136 136 (136-145) mmol/L Potassium 3.7 3.7 (3.5-5.1) mmol/L Chloride 97 L 98 (98-107) mmol/L Carbon Dioxide 29 29 (21-32) mmol/L BUN 61 H 61 H (6-23) mg/dl Creatinine 1.78 H 1.94 H (0.6-1.4) mg/dl Glucose 151 H 111 H (70-99(Fasting)) mg/dl Calcium 9.6 8.7 (8.6-10.3) mg/dl Direct Bilirubin 0.2 (0-0.2) mg/dl AST 18 23 (13-39) U/L ALT 11 12 (7-52) U/L Alkaline Phosphatase 62 49 (34-104) U/L Total Protein 7.5 6.5 (6.0-8.3) gm/dl Albumin 3.8 3.4 (3.4-5.0) gm/dl Intake and Output 01/30/24 01/31/24 01/31/24 22:59 06:59 14:59 Intake Total 250 / 602.95 252.95 / 602.95 182.133 / 182.133 Output Total 501 / 801 300 / 801 Balance -251 / -198.05 -47.05 / -198.05 182.133 / 182.133 Intake: IV 250 / 602.95 252.95 / 602.95 182.133 / 182.133 Heparin Sodium/Dextrose 25,000 152.95 / 152.95 82.133 / 82.133 units In 500 ml @ 1,100 UNITS/ HR 22 mls/hr IV .[id number] [facility] Rx #:[id number] Piperacillin/Tazobactam 4.5 gm 100 / 100 100 / 100 In Dextrose 5% Mini-B 100 ml @ 25 mls/hr IV Q8H [facility] Rx#: [id number] Remdesivir 200 mg In Sodium 250 / 250 Chloride 0.9% 210 ml @ 125 mls/ hr IV [facility] Rx#:[id number] Output: Urine 500 / 800 300 / 800 # Bowel Movements Other: Weight 80.2 kg 80.4 kg Weight Measurement Method [facility] Built in [facility]
[2024-01-31] MEDS: predniSONE 10 MG TABLET PO SCH (13:36)
--- NOTE | 2024-01-31 16:57 | Hospitalist Progress Note ---
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 SOB In setting of decompensated HF, covid 19 and restrictive/interstitial lung disease as discussed below O2 saturation 94 on room air, continue 2L NC HS and supplemental O2 during day as needed Acute decompensated HFrEF --CXR with Cardiomegaly with pulmonary edema and chronic extensive reticular nodular opacities which are again suggestive an infectious or inflammatory process. Layering pleural effusions with bibasilar consolidation, right greater than left. --ECHO pending --Alternates between 100mg and 50mg torsemide at home --BNP 1,280 --Monitor strict I&Os, daily weights, volume status Continue 60mg IV Lasix BID Appreciate cardiology input Continue metoprolol, Imdur Wilbur has been discontinued previously Resume Jardiance as able Will recheck chest x-ray tomorrow Type II ID--due to demand ischemia h/o NSTEMI on previous admission Troponin elevation in setting of decompensated CHF, CKD Currently on IV heparin Continue aspirin, statin Plavix on hold Covid-19 Infection Rhinovirus infection Suspected pneumonia secondary to COVID-19 Procalcitonin 0.37 Chest x-ray as above Continue remdesivir Saturating well on room air Also on Zosyn CKD IV Baseline Cr ~ 2 Monitor BMP daily Renal function at baseline Monitor [employer] pneumoconiosis Pulmonary nodule Bronchiectasis Restrictive lung disease History of Stenotrophomonas s/p treatment Levaquin Continue albuterol, Atrovent inhalers Flutter valve and Mucinex HLD Continue ASA and statin Ulcer of right foot Follows with wound clinic, recently started on 10d Keflex course with improved appearance Continue empiric IV Abx, holding Keflex 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 Ling: Recommends mometasone 0.1% ointment twice daily x 2 weeks Needs follow-up with dermatology on discharge if unresponsive to mometasone DVT Px: IV heparin Code status: DNR/DNI Disposition: PT OT prior to discharge Admission and Anticipated Discharge Date Admission Date: January 30, 2024 Subjective Patient is seen and examined at bedside States having minimal cough and some dyspnea on exertion Also reports generalized rash and weakness Discussed with dermatology today Currently on IV heparin, no bleeding issues Saturating well on room air No other complaints Review of Systems Review of Systems: All systems reviewed & are unremarkable except as noted in Subjective Physical Exam Physical Exam: Physical Exam: Vitals signs as noted above General Appearance: Thin, frail, elderly, no apparent distress Head: normocephalic, Atraumatic Eyes: normal inspection, EOMI Neck: supple, Trachea midline Respiratory/Chest: Decreased breath sounds, CTA, No accessory muscle use Cardiovascular: S1, S2, No murmur Abdomen/GI:Soft, Non tender, Bowel sounds present Extremities/Musculoskeletal:normal inspection, no edema Neurologic/Psych:AAOX3, grossly no focal neurological deficits Skin: normal color, warm, erythematous rash multiple areas Results & Data Results & Data Vital Signs (Past 12 Hours) Vital Signs Temp Pulse Resp BP BP Pulse Ox O2 Del Method 01/31/24 15:12 76 17 97 Room Air 01/31/24 11:57 36.2 C L 74 18 114/58 L 97 Room Air 01/31/24 10:55 72 16 98 Room Air 01/31/24 08:26 36.6 C 81 16 119/63 96 Room Air 01/31/24 07:21 78 18 96 Room Air Laboratory Results Short CBC 01/31/24 Range/Units 01:49 WBC 13.48 H (4.8-10.8) K/ul Hgb 9.9 L (14.0-18.0) g/dl Hct 30.7 L (42.0-52.0) % Plt Count 232 (130-400) K/uL BMP 01/31/24 01:49 Sodium 136 Potassium 3.7 Chloride 98 Carbon Dioxide 29 BUN 61 H Creatinine 1.94 H Glucose 111 H Calcium 8.7 Liver Function 01/31/24 Range/Units 01:49 Total Bilirubin 0.5 (0.2-1.0) mg/dl Direct Bilirubin 0.2 (0-0.2) mg/dl AST 23 (13-39) U/L ALT 12 (7-52) U/L Alkaline Phosphatase 49 (34-104) U/L Albumin 3.4 (3.4-5.0) gm/dl Urine 01/30/24 Range/Units 16:36 Urine Color Yellow Urine Appearance Clear (Clear) Urine pH 7.0 (4.5-7.5) Ur Specific [place] 1.010 (1.000-1.030) Urine Protein Negative (Negative) Urine Glucose (UA) Negative (Negative)
[2024-01-31] MEDS: MOMETASONE FUROATE 0.1% OINT 15 GM TUBE EXT SCH (17:38)
[2024-01-31] MEDS: REMDESIVIR 100 MG in SODIUM CHLORIDE 0.9% 230 ML IV SCH (19:59)
--- NOTE | 2024-01-31 21:52 | Communication Note ---
Date of Service: January 31, 2024 Made aware by pharmacist of topical mometasone current unavailability for patient's dermatitis. Topical triamcinolone (similar to mometasone as class IV mid potency steroid) interim.
[2024-01-31] MEDS: TRIAMCINOLONE ACET 0.5% CR 15 GM TUBE EXT SCH (22:58)
[2024-02-01 07:12] LABS: Hematocrit (blood only) 32.5 % (42.0-52.0); Hemoglobin 10.6 g/dl (14.0-18.0); Mean Corpuscular Hemoglobin 27.5 pg (25.0-34.0); Mean Corpuscular Hgb Conc 32.6 g/dL (32.0-36.0); Mean Corpuscular Volume 84.2 fL (80.0-100.0); Mean Platelet Volume 10.1 fL (9.4-12.4); Platelet Count 283 K/uL (130-400); RDW Coefficient of Variation 14.7 % (11.5-14.5); Red Blood Count 3.86 M/uL (4.70-6.10)
--- NOTE | 2024-02-01 07:14 | XRay Report ---
XR chest 1V portable HISTORY: 88 years-old Male CHF COMPARISON: 01/30/2024 TECHNIQUE: AP view of the chest FINDINGS: Cardiac silhouette is enlarged. Pulmonary vascular congestion. Mixed interstitial and alveolar opacit ies are redemonstrated with mildly improved aeration of the left lung base. Right basilar consolidati on is stable. Right greater than left pleural effusions. Chronic right clavicular fracture deformity. Bones appear grossly intact. IMPRESSION: 1. Cardiomegaly with persistent mixed interstitial and alveolar opacities. 2. Right greater than left layering pleural effusions again seen. 3. Improved aeration of the left lung base with persistent right basilar consolidation. ACT 112: Negative or not required by law. The above report was generated using voice recognition software. It may contain grammatical, syntax o r spelling errors. Electronically signed by: Azar Bruce M.D. 02/01/2024 7:12 AM
[2024-02-01 07:24] LABS: ANTI-Xa, UFH(UnfractionatedHep 0.55 IU/ml (0.3-0.7)
[2024-02-01 08:10] LABS: Albumin Level 3.9 gm/dl (3.4-5.0); BUN Creatinine Ratio 28.4 (10-20); Bilirubin Direct 0.2 mg/dl (0-0.2); Bilirubin,Total 0.5 mg/dl (0.2-1.0); Calcium 9.6 mg/dl (8.6-10.3); Creatinine Clr Calc Pharmacy 28.5 ml/min; Est GFR (African American) 32.7 ml/min; Est GFR (Non-African American) 28.3 ml/min; Magnesium 2.1 mg/dl (1.7-2.4); Potassium 3.7 mmol/L (3.5-5.1); Total Protein 7.6 gm/dl (6.0-8.3)
[2024-02-01] MEDS: DOXYCYCLINE HYCLATE 100 MG CAP PO SCH (11:34)
--- NOTE | 2024-02-01 12:09 | Cardiology Progress Note ---
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 Elevated troponin likely type II event secondary to demand ischemia in the setting of respiratory insufficiency and acute heart failure. Conservative medical management recommended. Continue IV heparin for an additional 24 hours. Continue IV diuresis with Lasix 60 mg twice daily. Consider titration to 80 mg twice daily pending clinical response. Monitor fluid balance, daily weight, GFR, and electrolytes. Continue other cardiovascular medications including low-dose aspirin, isosorbide monohydrate, metoprolol succinate, and rosuvastatin. Manage of COVID-19 infection possible pneumonia as per internal medicine. Admission and Anticipated Discharge Date Admission Date: January 30, 2024 Subjective 88-year-old male seen and examined at the bedside. Respiratory status mildly improved although remains significantly dyspneic with daily activities. Fluid balance -624 cc. Serum creatinine trending upward, however, remains within patient's baseline range. Continues to note feeling of abdominal bloating. No significant edema. Denies orthopnea or PND. Sinus rhythm on telemetry with heart rate ranging from 70-80 bpm. Review of Systems Review of Systems: All systems reviewed & are unremarkable except as noted in Subjective Physical Exam Constitutional: well nourished and + ill appearing; no acute distress Respiratory: normal respiratory effort; no respiratory distress and no retractions Auscultation: + diminished lung sounds (Bases bilateral.); no rhonchi and no wheezes Cardiovascular: Rate/Rhythm: regular rate and regular rhythm Heart Sounds: normal S1 and normal S2; no murmur Vessels: radial pulses present; no JVD Extremities: no edema Gastrointestinal (Abdomen): Inspection/Auscultation: abdomen normal to inspection and normal bowel sounds; abdomen not distended Percussion/Palpation: abdomen soft; abdomen nontender, no guarding and abdomen not rigid Neurologic: CN's II-XI intact bilaterally and moves all extremities Results & Data Vital Signs (Past 12 Hours) Vital Signs Temp Pulse Resp BP BP Pulse Ox O2 Del Method 02/01/24 11:00 85 16 95 Room Air 02/01/24 07:42 36.6 C 82 18 120/68 95 Room Air 02/01/24 02:38 36.4 C L 94 H 18 109/65 98 Nasal Cannula O2 Flow Rate 02/01/24 11:00 02/01/24 07:42 02/01/24 02:38 2 Laboratory Results Cardiac Enzymes 02/01/24 Range/Units 06:42 AST 22 (13-39) U/L CBC 02/01/24 Range/Units 06:42 WBC 13.30 H (4.8-10.8) K/ul RBC 3.86 L (4.70-6.10) M/uL Hgb 10.6 L (14.0-18.0) g/dl Hct 32.5 L (42.0-52.0) % Plt Count 283 (130-400) K/uL Comprehensive Metabolic Panel 02/01/24 Range/Units 06:42 Sodium 135 L (136-145) mmol/L Potassium 3.7 (3.5-5.1) mmol/L Chloride 95 L (98-107) mmol/L Carbon Dioxide 28 (21-32) mmol/L BUN 58 H (6-23) mg/dl Creatinine 2.04 H (0.6-1.4) mg/dl Glucose 141 H (70-99(Fasting)) mg/dl Calcium 9.6 (8.6-10.3) mg/dl Direct Bilirubin 0.2 (0-0.2) mg/dl AST 22 (13-39) U/L ALT 12 (7-52) U/L Alkaline Phosphatase 61 (34-104) U/L Total Protein 7.6 (6.0-8.3) gm/dl Albumin 3.9 (3.4-5.0) gm/dl Intake and Output 01/31/24 02/01/24 02/01/24 22:59 06:59 14:59 Intake Total 784.667 / 1166.800 200 / 1166.800 290.4 / 290.4 Output Total 1000 / 1900 300 / 1900 Balance -215.333 / -733.200 -100 / -733.200 290.4 / 290.4 Intake: IV 584.667 / 966.800 200 / 966.800 290.4 / 290.4 Heparin Sodium/Dextrose 25,000 234.667 / 316.800 290.4 / 290.4 units In 500 ml @ 1,100 UNITS/ HR 22 mls/hr IV .[id number] [facility] Rx #:[id number] Piperacillin/Tazobactam 4.5 gm 100 / 400 200 / 400 In Dextrose 5% Mini-B 100 ml @ 25 mls/hr IV Q8H [facility] Rx#: [id number] Remdesivir 100 mg In Sodium 250 / 250 Chloride 0.9% 230 ml @ 250 mls/ hr IV Q24H [facility] Rx#:[id number] Oral 200 / 200 Output: Urine 1000 / 1900 300 / 1900 Other: Weight 80.4 kg
[2024-02-01] MEDS ORDERED: ALBUTEROL HFA 8 GM INHALER INH PRN (13:28)
[2024-02-01] MEDS ORDERED: IPRATROPIUM BROMIDE HFA INHALER INH PRN (13:29)
[2024-02-01] MEDS: CEFDINIR 300 MG CAP PO ONE (13:53)
--- NOTE | 2024-02-01 16:34 | Hospitalist Progress Note ---
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 SOB In setting of decompensated HF, covid 19 and restrictive/interstitial lung disease as discussed below O2 saturation 94 on room air, continue 2L NC HS and supplemental O2 during day as needed Acute decompensated HFrEF --CXR with Cardiomegaly with pulmonary edema and chronic extensive reticular nodular opacities which are again suggestive an infectious or inflammatory process. Layering pleural effusions with bibasilar consolidation, right greater than left. --ECHO: EF 20 to 25%. 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 Mild to moderate mitral regurgitation, moderate tricuspid regurgitation. Estimated systolic pulmonary pressure is 78 mmHg. Severe pulmonary hypertension is present. When compared to prior echo, no significant change. --Alternates between 100mg and 50mg torsemide at home --BNP 1,280 --Monitor strict I&Os, daily weights, volume status Continue 60mg IV Lasix BID Appreciate cardiology input Continue metoprolol, Imdur Wilbur has been discontinued previously Resume Jardiance as able Continue IV heparin for additional 24 hours per cardiology Continue IV diuresis Saturating well on room air Type II PR--due to demand ischemia h/o NSTEMI on previous admission Troponin elevation in setting of decompensated CHF, CKD Currently on IV heparin Continue aspirin, statin Plavix on hold Covid-19 Infection Rhinovirus infection Suspected pneumonia secondary to COVID-19 Procalcitonin 0.37 Chest x-ray as above Continue remdesivir Saturating well on room air Also on Zosyn>> transition to p.o. 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 Ling: Recommends mometasone 0.1% ointment twice daily x 2 weeks Needs follow-up with dermatology on discharge if unresponsive to mometasone Taper down p.o. prednisone DVT Px: IV heparin Code status: DNR/DNI Disposition: PT OT prior to discharge Admission and Anticipated Discharge Date Admission Date: January 30, 2024 Subjective Patient is seen and examined at bedside Subjectively feels about the same as yesterday Denies any significant cough Rash slowly improving Still has generalized weakness Discussed with cardiology today Saturating well on room air Reports having some dyspnea on exertion which she attributes to abdominal hernia No other complaint Review of Systems Review of Systems: All systems reviewed & are unremarkable except as noted in Subjective Physical Exam Physical Exam: Physical Exam: Vitals signs as noted above General Appearance: Thin, frail, elderly, no apparent distress Head: normocephalic, Atraumatic Eyes: normal inspection, EOMI Neck: supple, Trachea midline Respiratory/Chest: Decreased breath sounds, CTA, No accessory muscle use Cardiovascular: S1, S2, No murmur Abdomen/GI:Soft, Non tender, Bowel sounds present,+ abdominal hernia Extremities/Musculoskeletal:normal inspection, no edema Neurologic/Psych:AAOX3, grossly no focal neurological deficits Skin: normal color, warm, erythematous rash multiple areas Results & Data Results & Data Vital Signs (Past 12 Hours) Vital Signs Temp Pulse Resp BP Pulse Ox O2 Del Method 02/01/24 15:13 36.3 C L 90 18 104/59 L 94 Room Air 02/01/24 11:00 85 16 95 Room Air 02/01/24 07:42 36.6 C 82 18 120/68 95 Room Air Laboratory Results Short CBC 02/01/24 Range/Units 06:42 WBC 13.30 H (4.8-10.8) K/ul Hgb 10.6 L (14.0-18.0) g/dl Hct 32.5 L (42.0-52.0) % Plt Count 283 (130-400) K/uL BMP 02/01/24 06:42 Sodium 135 L Potassium 3.7 Chloride 95 L Carbon Dioxide 28 BUN 58 H Creatinine 2.04 H Glucose 141 H Calcium 9.6 Liver Function 02/01/24 Range/Units 06:42 Total Bilirubin 0.5 (0.2-1.0) mg/dl Direct Bilirubin 0.2 (0-0.2) mg/dl AST 22 (13-39) U/L ALT 12 (7-52) U/L Alkaline Phosphatase 61 (34-104) U/L Albumin 3.9 (3.4-5.0) gm/dl
[2024-02-02 07:36] LABS: Hematocrit (blood only) 31.9 % (42.0-52.0); Hemoglobin 10.6 g/dl (14.0-18.0); Mean Corpuscular Hemoglobin 27.8 pg (25.0-34.0); Mean Corpuscular Hgb Conc 33.2 g/dL (32.0-36.0); Mean Corpuscular Volume 83.7 fL (80.0-100.0); Platelet Count 297 K/uL (130-400); RDW Coefficient of Variation 14.6 % (11.5-14.5); RDW Standard Deviation 44.4 fL (36.4-46.3); Red Blood Count 3.81 M/uL (4.70-6.10); White Blood Count 13.17 K/ul (4.8-10.8)
[2024-02-02 07:40] LABS: ANTI-Xa, UFH(UnfractionatedHep 0.52 IU/ml (0.3-0.7)
[2024-02-02 08:04] LABS: Albumin Level 3.9 gm/dl (3.4-5.0); Bilirubin Direct 0.1 mg/dl (0-0.2); Bilirubin,Total 0.4 mg/dl (0.2-1.0); Total Protein 7.5 gm/dl (6.0-8.3)
[2024-02-02] MEDS: predniSONE 20 MG TAB PO SCH (08:24)
[2024-02-02] MEDS: CEFDINIR 300 MG CAP PO SCH (08:24)
[2024-02-02] MEDS ORDERED: cefTRIAXone SODIUM 1,000 MG/50 ML BAG IV SCH (09:00)
[2024-02-02] MEDS ORDERED: cefTRIAXone SODIUM 2,000 MG/50 ML BAG IV SCH (09:00)
--- NOTE | 2024-02-02 15:47 | Cardiology Progress Note ---
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 Elevated troponin likely type II event secondary to demand ischemia in the setting of respiratory insufficiency and acute heart failure. Conservative medical management recommended. Discontinue IV heparin. Difficult to distinguish congestive heart failure from chronic interstitial changes on x-ray. Mild improvement noted with IV diuresis. Recommend continue IV Lasix 60 mg twice daily. Consider transitioning back to oral torsemide pending review of a.m. labs if serum creatinine continues to trend upward. Monitor fluid balance, daily weight, GFR, and electrolytes. Continue other cardiovascular medications including low-dose aspirin, isosorbide monohydrate, metoprolol succinate, and rosuvastatin. Manage of COVID-19 infection possible pneumonia as per internal medicine. Admission and Anticipated Discharge Date Admission Date: January 30, 2024 Subjective Patient seen and examined at the bedside. Ongoing shortness of breath unchanged. Denies orthopnea or PND. No chest discomfort. Telemetry reveals sinus rhythm in the 80s-90s with occasional PVCs. Review of Systems Review of Systems: All systems reviewed & are unremarkable except as noted in Subjective Physical Exam Constitutional: well nourished and + ill appearing; no acute distress Respiratory: normal respiratory effort; no respiratory distress and no retractions Auscultation: + diminished lung sounds (Bases bilateral.); no rhonchi and no wheezes Cardiovascular: Rate/Rhythm: regular rate and regular rhythm Heart Sounds: normal S1 and normal S2; no murmur Vessels: radial pulses present; no JVD Extremities: no edema Gastrointestinal (Abdomen): Inspection/Auscultation: abdomen normal to inspection and normal bowel sounds; abdomen not distended Percussi on/Palpation: abdomen soft; abdomen nontender, no guarding and abdomen not rigid Neurologic: CN's II-XI intact bilaterally and moves all extremities Results & Data Vital Signs (Past 12 Hours) Vital Signs Temp Pulse Resp BP BP Pulse Ox O2 Del Method 02/02/24 15:39 36.4 C L 93 H 20 135/79 92 Room Air 02/02/24 11:43 36.5 C 96 H 19 128/73 94 Room Air 02/02/24 10:45 Room Air 02/02/24 08:54 36.3 C L 94 H 19 123/69 95 Room Air
--- NOTE | 2024-02-02 17:21 | Hospitalist Progress Note ---
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 SOB In setting of decompensated HF, covid 19 and restrictive/interstitial lung disease as discussed below O2 saturation 94 on room air, continue 2L NC HS and supplemental O2 during day as needed Acute decompensated HFrEF --CXR with Cardiomegaly with pulmonary edema and chronic extensive reticular nodular opacities which are again suggestive an infectious or inflammatory process. Layering pleural effusions with bibasilar consolidation, right greater than left. --ECHO: EF 20 to 25%. 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 Mild to moderate mitral regurgitation, moderate tricuspid regurgitation. Estimated systolic pulmonary pressure is 78 mmHg. Severe pulmonary hypertension is present. When compared to prior echo, no significant change. --Alternates between 100mg and 50mg torsemide at home --BNP 1,280 --Monitor strict I&Os, daily weights, volume status Continue 60mg IV Lasix BID Appreciate cardiology input Continue metoprolol, Imdur Wilbur has been discontinued previously Resume Jardiance as able IV heparin discontinued Saturating well on room air Monitor volume status Continue IV diuretics per cardiology Type II CA--due to demand ischemia h/o NSTEMI on previous admission Troponin elevation in setting of decompensated CHF, CKD Currently on IV heparin Continue aspirin, statin Resume Plavix Covid-19 Infection Rhinovirus infection Suspected pneumonia secondary to COVID-19 Procalcitonin 0.37 Chest x-ray as above Received Remdesivir Saturating well on room air Also on Zosyn>> transition to p.o. 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 Ling: Recommends mometasone 0.1% ointment twice daily x 2 weeks Needs follow-up with dermatology on discharge if unresponsive to mometasone Taper down prednisone as able DVT Px: Heparin SQ Code status: DNR/DNI Disposition: Expected discharge home when stable Admission and Anticipated Discharge Date Admission Date: January 30, 2024 Subjective Patient is seen and examined at bedside Subjectively feels no significant change from yesterday IV heparin discontinued today No cough, chest pain, dizziness, nausea, vomiting, abdominal pain Reports some dyspnea which he attributes to large abdominal hernia Review of Systems Review of Systems: All systems reviewed & are unremarkable except as noted in Subjective Physical Exam Physical Exam: Physical Exam: Vitals signs as noted above General Appearance: Thin, frail, elderly, no apparent distress Head: normocephalic, Atraumatic Eyes: normal inspection, EOMI Neck: supple, Trachea midline Respiratory/Chest: Decreased breath sounds, CTA, No accessory muscle use Cardiovascular: S1, S2, No murmur Abdomen/GI:Soft, Non tender, Bowel sounds present,+ abdominal hernia Extremities/Musculoskeletal:normal inspection, no edema Neurologic/Psych:AAOX3, grossly no focal neurological deficits Skin: normal color, warm, erythematous rash multiple areas Results & Data Results & Data Vital Signs (Past 12 Hours) Vital Signs Temp Pulse Pulse Resp BP BP Pulse Ox 02/02/24 16:05 88 02/02/24 15:39 36.4 C L 93 H 20 135/79 92 02/02/24 11:43 36.5 C 96 H 19 128/73 94 02/02/24 10:45 02/02/24 08:54 36.3 C L 94 H 19 123/69 95 02/02/24 07:00 72 O2 Del Method 02/02/24 16:05 02/02/24 15:39 Room Air 02/02/24 11:43 Room Air 02/02/24 10:45 Room Air 02/02/24 08:54 Room Air 02/02/24 07:00 Laboratory Results Short CBC 02/02/24 Range/Units 07:15 WBC 13.17 H (4.8-10.8) K/ul Hgb 10.6 L (14.0-18.0) g/dl Hct 31.9 L (42.0-52.0) % Plt Count 297 (130-400) K/uL Liver Function 02/02/24 Range/Units 07:15 Total Bilirubin 0.4 (0.2-1.0) mg/dl Direct Bilirubin 0.1 (0-0.2) mg/dl AST 20 (13-39) U/L ALT 14 (7-52) U/L Alkaline Phosphatase 58 (34-104) U/L Albumin 3.9 (3.4-5.0) gm/dl
[2024-02-02] MEDS: HEPARIN SOD 5,000 UNIT/0.5 ML VIAL SQ SCH (20:08)
[2024-02-03 06:58] LABS: Hematocrit (blood only) 31.6 % (42.0-52.0); Hemoglobin 10.6 g/dl (14.0-18.0); Mean Corpuscular Hgb Conc 33.5 g/dL (32.0-36.0); Mean Corpuscular Volume 83.4 fL (80.0-100.0); Mean Platelet Volume 10.3 fL (9.4-12.4); Platelet Count 288 K/uL (130-400); RDW Coefficient of Variation 14.6 % (11.5-14.5); RDW Standard Deviation 44.2 fL (36.4-46.3); Red Blood Count 3.79 M/uL (4.70-6.10); White Blood Count 11.67 K/ul (4.8-10.8)
--- NOTE | 2024-02-03 07:21 | Cardiology Progress Note ---
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 Elevated troponin likely type II event secondary to demand ischemia in the setting of respiratory insufficiency and acute heart failure. Conservative medical management recommended. Heparin was discontinued yesterday. Difficult to distinguish congestive heart failure from chronic interstitial changes on x-ray. Patient has had modest response to IV diuresis. -6Kg. Recommend continue IV Lasix 60 mg twice daily. Consider transitioning back to oral torsemide pending review of a.m. labs if serum creatinine continues to trend upward. Monitor fluid balance, daily weight, GFR, and electrolytes. Goal serum K> 4.0 and Serum Mag > 2.0 Continue other cardiovascular medications including low-dose aspirin, isosorbide monohydrate, metoprolol succinate, and rosuvastatin. Manage of COVID-19 infection possible pneumonia as per internal medicine. Case has been discussed with Dr. Duron. Further recommendations regarding plan of care as per his assessment. I spent a total of 30 minutes on the date of service in preparation, delivery, documentation of the care provided to the patient excluding any time spent in the performance of separately billed services. DAV [facility] Admission and Anticipated Discharge Date Admission Date: January 30, 2024 Supervising Physician Co-Signing Physician Notes I have reviewed the advance practitioner's documentation, and I agree with, and take responsibility for the plan of care. I have personally performed a history and physical examination on the patient. Continue IV diuresis for now as patient states that his dyspnea is improving. Monitor electrolytes and I/Os. I spent a total of 30 minutes on the date of service in preparation, delivery, and documentation of the care provided to this patient, excluding any time spent in the performance of separately billed service Subjective 02/03/24: patient seen and examined today in follow up. He is sitting up on the side of bed visiting with friend/family. Denies any chest pain, pressure, palpitations, no significant swelling of the extremities, no pre-syncope or syncope. patient endorses ongoing shortness of breath, but states that it is "so much better then when I came in this time". Also endorses and ongoing "itchy rash" on his arms/legs and back. Primary team is treating. Labs, diagnostics, vitals, telemetry and documentation reviewed. Telemetry overnight demonstrates SR/ST with IVCD, rates 70-80's. Review of Systems Review of Systems: All systems reviewed & are unremarkable except as noted in HPI & below Physical Exam Constitutional: well developed, well nourished and + thin; no acute distress and not ill appearing Neck: normal visual inspection and trachea midline Respiratory: normal respiratory effort and + respiratory distress; no labored breathing and no cough Auscultation: + diminished lung sounds (bilateral bases ); no crackles, no rales, no rhonchi and no wheezes Cardiovascular: Rate/Rhythm: regular rate and regular rhythm Heart Sounds: normal S1 and normal S2; no murmur Vessels: no JVD Extremities: no edema Skin: + rash (spotty patches on legs and arms. ? atopic dermatitis ) Psychiatric: A+Ox3, euthymic affect Results & Data Vital Signs (Past 12 Hours) Vital Signs Temp Pulse Pulse Resp BP Pulse Ox O2 Del Method 02/03/24 02:38 36.7 C 82 20 117/69 98 Nasal Cannula 02/02/24 23:00 76 02/02/24 22:53 36.9 C 81 18 128/72 95 Room Air 02/02/24 20:00 Room Air 02/02/24 19:47 36.8 C 82 18 129/71 96 Room Air Laboratory Results Cardiac Enzymes 02/03/24 Range/Units 06:17 AST 20 (13-39) U/L CBC 02/03/24 Range/Units 06:17 WBC 11.67 H (4.8-10.8) K/ul RBC 3.79 L (4.70-6.10) M/uL Hgb 10.6 L (14.0-18.0) g/dl Hct 31.6 L (42.0-52.0) % Plt Count 288 (130-400) K/uL Comprehensive Metabolic Panel 02/03/24 Range/Units 06:17 Sodium 137 (136-145) mmol/L Potassium 3.8 (3.5-5.1) mmol/L Chloride 98 (98-107) mmol/L Carbon Dioxide 29 (21-32) mmol/L BUN 66 H (6-23) mg/dl Creatinine 1.90 H (0.6-1.4) mg/dl Glucose 111 H (70-99(Fasting)) mg/dl Calcium 9.8 (8.6-10.3) mg/dl Direct Bilirubin 0.1 (0-0.2) mg/dl AST 20 (13-39) U/L ALT 15 (7-52) U/L Alkaline Phosphatase 56 (34-104) U/L Total Protein 7.3 (6.0-8.3) gm/dl Albumin 3.8 (3.4-5.0) gm/dl Intake and Output 02/02/24 02/03/24 02/03/24 22:59 06:59 14:59 Other: # Unmeasured Voids 1 1 Weight 80.7 kg Weight Measurement Method Standing Scale
[2024-02-03 07:40] LABS: Albumin Level 3.8 gm/dl (3.4-5.0); BUN Creatinine Ratio 34.7 (10-20); Bilirubin Direct 0.1 mg/dl (0-0.2); Bilirubin,Total 0.5 mg/dl (0.2-1.0); Calcium 9.8 mg/dl (8.6-10.3); Creatinine Clr Calc Pharmacy 30.7 ml/min; Est GFR (African American) 35.7 ml/min; Est GFR (Non-African American) 30.8 ml/min; Potassium 3.8 mmol/L (3.5-5.1); Total Protein 7.3 gm/dl (6.0-8.3)
[2024-02-03] MEDS: CLOPIDOGREL BISULFATE 75 MG TAB PO SCH (09:22)
[2024-02-03] MEDS: IPRATROPIUM BROMIDE HFA INHALER INH PRN (09:25)
--- NOTE | 2024-02-03 16:09 | Hospitalist Progress Note ---
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 SOB In setting of decompensated HF, covid 19 and restrictive/interstitial lung disease as discussed below O2 saturation 94 on room air, continue 2L NC HS and supplemental O2 during day as needed Acute decompensated HFrEF --CXR with Cardiomegaly with pulmonary edema and chronic extensive reticular nodular opacities which are again suggestive an infectious or inflammatory process. Layering pleural effusions with bibasilar consolidation, right greater than left. --ECHO: EF 20 to 25%. 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 Mild to moderate mitral regurgitation, moderate tricuspid regurgitation. Estimated systolic pulmonary pressure is 78 mmHg. Severe pulmonary hypertension is present. When compared to prior echo, no significant change. --Alternates between 100mg and 50mg torsemide at home --BNP 1,280 --Monitor strict I&Os, daily weights, volume status Continue 60mg IV Lasix BID Appreciate cardiology input Continue metoprolol, Imdur Wilbur has been discontinued previously Resume Jardiance as able IV heparin discontinued Saturating well on room air Monitor volume status, renal function, electrolytes Renal function stable Continue diuresis Cardiology following Type II [place]--due to demand ischemia h/o NSTEMI on previous admission Troponin elevation in setting of decompensated CHF, CKD IV heparin discontinued Continue aspirin, statin, Plavix Covid-19 Infection Rhinovirus infection Suspected pneumonia secondary to COVID-19 Procalcitonin 0.37 Chest x-ray as above Received Remdesivir Saturating well on room air Also on Zosyn>> transitioned to cefdinir, Doxy CKD IV Baseline Cr ~ 2 Monitor BMP daily Renal function at baseline Creatinine 1.9 today [place] [employer] pneumoconiosis Pulmonary nodule Bronchiectasis Restrictive lung disease History of Stenotrophomonas s/p treatment Levaquin Continue albuterol, Atrovent inhalers Flutter valve and Mucinex HLD Continue ASA and statin Ulcer of right foot Follows with wound clinic, recently started on 10d Keflex course with improved appearance Continue empiric IV Abx, holding Keflex 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 Ling: Recommends mometasone 0.1% ointment twice daily x 2 weeks Needs follow-up with dermatology on discharge if unresponsive to mometasone Taper down prednisone as able DVT Px: Heparin SQ Code status: DNR/DNI Disposition: Expected discharge home when stable Admission and Anticipated Discharge Date Admission Date: January 30, 2024 Subjective Patient is seen and examined at bedside Offers no new complaints Sitting in chair comfortably during my encounter Still has some dyspnea on exertion Saturating well on room air Denies any cough, chest pain, dizziness, nausea, vomiting, abdominal pain Review of Systems Review of Systems: All systems reviewed & are unremarkable except as noted in Subjective Physical Exam Physical Exam: Physical Exam: Vitals signs as noted above General Appearance: Thin, frail, elderly, no apparent distress Head: normocephalic, Atraumatic Eyes: normal inspection, EOMI Neck: supple, Trachea midline Respiratory/Chest: Decreased breath sounds, CTA, No accessory muscle use Cardiovascular: S1, S2, No murmur Abdomen/GI:Soft, Non tender, Bowel sounds present,+ abdominal hernia Extremities/Musculoskeletal:normal inspection, no edema Neurologic/Psych:AAOX3, grossly no focal neurological deficits Skin: normal color, warm, erythematous rash multiple areas Results & Data Results & Data Vital Signs (Past 12 Hours) Vital Signs Temp Pulse Resp BP Pulse Ox O2 Del Method 02/03/24 11:34 36.7 C 93 H 19 129/65 97 Room Air 02/03/24 07:40 36.6 C 90 20 120/67 95 Room Air Laboratory Results Short CBC 02/03/24 Range/Units 06:17 WBC 11.67 H (4.8-10.8) K/ul Hgb 10.6 L (14.0-18.0) g/dl Hct 31.6 L (42.0-52.0) % Plt Count 288 (130-400) K/uL BMP 02/03/24 06:17 Sodium 137 Potassium 3.8 Chloride 98 Carbon Dioxide 29 BUN 66 H Creatinine 1.90 H Glucose 111 H Calcium 9.8 Liver Function 02/03/24 Range/Units 06:17 Total Bilirubin 0.5 (0.2-1.0) mg/dl Direct Bilirubin 0.1 (0-0.2) mg/dl AST 20 (13-39) U/L ALT 15 (7-52) U/L Alkaline Phosphatase 56 (34-104) U/L Albumin 3.8 (3.4-5.0) gm/dl
[2024-02-04 07:02] LABS: Hematocrit (blood only) 33.5 % (42.0-52.0); Hemoglobin 10.8 g/dl (14.0-18.0); Mean Corpuscular Hemoglobin 27.6 pg (25.0-34.0); Mean Corpuscular Hgb Conc 32.2 g/dL (32.0-36.0); Mean Corpuscular Volume 85.5 fL (80.0-100.0); Mean Platelet Volume 10.1 fL (9.4-12.4); Platelet Count 314 K/uL (130-400); RDW Coefficient of Variation 14.6 % (11.5-14.5); RDW Standard Deviation 45.3 fL (36.4-46.3); Red Blood Count 3.92 M/uL (4.70-6.10); White Blood Count 12.12 K/ul (4.8-10.8)
[2024-02-04 07:21] LABS: BUN Creatinine Ratio 37.3 (10-20); Calcium 9.7 mg/dl (8.6-10.3); Creatinine Clr Calc Pharmacy 31.4 ml/min; Est GFR (African American) 36.9 ml/min; Est GFR (Non-African American) 31.8 ml/min
--- NOTE | 2024-02-04 08:02 | Cardiology Progress Note ---
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 Elevated troponin likely type II event secondary to demand ischemia in the setting of respiratory insufficiency and acute heart failure. Conservative medical management recommended. Heparin was discontinued. Difficult to distinguish congestive heart failure from chronic interstitial changes on x-ray. Patient has had modest response to IV diuresis. -6Kg. Recommend continue IV Lasix 60 mg twice daily. Consider transitioning back to oral torsemide pending review of a.m. labs if serum creatinine continues to trend upward. Monitor fluid balance, daily weight, GFR, and electrolytes. Goal serum K> 4.0 and Serum Mag > 2.0 Continue other cardiovascular medications including low-dose aspirin, isosorbide monohydrate, metoprolol succinate, and rosuvastatin. Manage of COVID-19 infection possible pneumonia as per internal medicine. Case has been discussed with Dr. Duron. Further recommendations regarding plan of care as per his assessment. I spent a total of 30 minutes on the date of service in preparation, delivery, documentation of the care provided to the patient excluding any time spent in the performance of separately billed services. DAV [facility] Cardiology [facility] Admission and Anticipated Discharge Date Admission Date: January 30, 2024 Supervising Physician Co-Signing Physician Notes I have reviewed the advance practitioner's documentation, and I agree with, and take responsibility for the plan of care. I have personally performed a history and physical examination on the patient. Continue IV diuresis for now as patient states that his dyspnea is improving. Monitor electrolytes and I/Os. I spent a total of 30 minutes on the date of service in preparation, delivery, and documentation of the care provided to this patient, excluding any time spent in the performance of separately billed service Subjective Patient seen and examined in follow up today. He is out of bed in the chair feeling well overall. Endorses some mild dyspnea mostly when attempting to lay flat. Labs, vitals, diagnostics, telemetry and documentation reviewed. Telemetry reviewed showing SR 70-80's. No acute events overnight. Review of Systems Review of Systems: All systems reviewed & are unremarkable except as noted in HPI & below Physical Exam Constitutional: well developed, well nourished and + thin; no acute distress and not ill appearing Neck: normal visual inspection and trachea midline Respiratory: normal respiratory effort and + respiratory distress; no labored breathing and no cough Auscultation: + diminished lung sounds (bilateral bases ); no crackles, no rales, no rhonchi and no wheezes Cardiovascular: Rate/Rhythm: regular rate and regular rhythm Heart Sounds: normal S1 and normal S2; no murmur Vessels: no JVD Extremities: no edema Skin: + rash (spotty patches on legs and arms. ? atopic dermatitis ) Psychiatric: A+Ox3, euthymic affect Results & Data Vital Signs (Past 12 Hours) Vital Signs Temp Pulse Pulse Pulse Resp BP BP 02/04/24 07:35 36.4 C L 82 18 115/63 02/04/24 02:58 36.8 C 81 18 120/68 02/03/24 23:00 75 02/03/24 22:56 36.7 C 76 18 112/64 02/03/24 20:00 Pulse Ox O2 Del Method 02/04/24 07:35 95 Room Air 02/04/24 02:58 99 Room Air 02/03/24 23:00 02/03/24 22:56 97 Room Air 02/03/24 20:00 Room Air Laboratory Results CBC 02/04/24 Range/Units 06:35 WBC 12.12 H (4.8-10.8) K/ul RBC 3.92 L (4.70-6.10) M/uL Hgb 10.8 L (14.0-18.0) g/dl Hct 33.5 L (42.0-52.0) % Plt Count 314 (130-400) K/uL Comprehensive Metabolic Panel 02/04/24 Range/Units 06:35 Sodium 137 (136-145) mmol/L Potassium 4.0 (3.5-5.1) mmol/L Chloride 99 (98-107) mmol/L Carbon Dioxide 28 (21-32) mmol/L BUN 69 H (6-23) mg/dl Creatinine 1.85 H (0.6-1.4) mg/dl Glucose 100 H (70-99(Fasting)) mg/dl Calcium 9.7 (8.6-10.3) mg/dl Intake and Output 02/04/24 02/04/24 02/04/24 06:59 14:59 22:59 Intake Total 100 / 1260 980 / 980 Output Total 650 / 2750 400 / 400 Balance -550 / -1490 580 / 580 Intake: Oral 100 / 1260 980 / 980 Output: Urine 650 / 2750 400 / 400 Other: Weight 80.5 kg
--- NOTE | 2024-02-04 16:10 | Hospitalist Progress Note ---
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 SOB In setting of decompensated HF, covid 19 and restrictive/interstitial lung disease as discussed below O2 saturation 94 on room air, continue 2L NC HS and supplemental O2 during day as needed Acute decompensated HFrEF --CXR with Cardiomegaly with pulmonary edema and chronic extensive reticular nodular opacities which are again suggestive an infectious or inflammatory process. Layering pleural effusions with bibasilar consolidation, right greater than left. --ECHO: EF 20 to 25%. 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 Mild to moderate mitral regurgitation, moderate tricuspid regurgitation. Estimated systolic pulmonary pressure is 78 mmHg. Severe pulmonary hypertension is present. When compared to prior echo, no significant change. --Alternates between 100mg and 50mg torsemide at home --BNP 1,280 --Monitor strict I&Os, daily weights, volume status Continue 60mg IV Lasix BID Appreciate cardiology input Continue metoprolol, Imdur Wilbur has been discontinued previously Resume Jardiance as able IV heparin discontinued Saturating well on room air Monitor volume status, renal function, electrolytes Renal function stable Continue IV diuresis per cardiology Type II [place]--due to demand ischemia h/o NSTEMI on previous admission Troponin elevation in setting of decompensated CHF, CKD IV heparin discontinued Continue aspirin, statin, Plavix Covid-19 Infection Rhinovirus infection Suspected pneumonia secondary to COVID-19 Procalcitonin 0.37 Chest x-ray as above Received Remdesivir Saturating well on room air Also on Zosyn>> transitioned to cefdinir, Doxy CKD IV Baseline Cr ~ 2 Monitor BMP daily Creatinine 1.8 today Renal function stable [place] [employer] pneumoconiosis Pulmonary nodule Bronchiectasis Restrictive lung disease History of Stenotrophomonas s/p treatment Levaquin Continue albuterol, Atrovent inhalers Flutter valve and Mucinex HLD Continue ASA and statin Ulcer of right foot Follows with wound clinic, recently started on 10d Keflex course with improved appearance Continue empiric IV Abx, holding Keflex 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 Ling: Recommends mometasone 0.1% ointment twice daily x 2 weeks Needs follow-up with dermatology on discharge if unresponsive to mometasone Prednisone discontinued DVT Px: Heparin SQ Code status: DNR/DNI Disposition: Expected discharge home when stable Admission and Anticipated Discharge Date Admission Date: January 30, 2024 Subjective Patient is seen and examined at bedside Persistent dyspnea on exertion otherwise no complaints Saturating well on room air Denies any cough, chest pain, dizziness, nausea, vomiting, abdominal pain Review of Systems Review of Systems: All systems reviewed & are unremarkable except as noted in Subjective Physical Exam Physical Exam: Physical Exam: Vitals signs as noted above General Appearance: Thin, frail, elderly, no apparent distress Head: normocephalic, Atraumatic Eyes: normal inspection, EOMI Neck: supple, Trachea midline Respiratory/Chest: Decreased breath sounds, CTA, No accessory muscle use Cardiovascular: S1, S2, No murmur Abdomen/GI:Soft, Non tender, Bowel sounds present,+ abdominal hernia Extremities/Musculoskeletal:normal inspection, no edema Neurologic/Psych:AAOX3, grossly no focal neurological deficits Skin: normal color, warm, erythematous rash multiple areas Results & Data Results & Data Vital Signs (Past 12 Hours) Vital Signs Temp Pulse Pulse Resp BP BP Pulse Ox 02/04/24 16:02 77 02/04/24 15:04 36.6 C 80 19 128/72 96 02/04/24 10:58 36.4 C L 90 19 130/80 97 02/04/24 08:00 72 02/04/24 07:35 36.4 C L 82 18 115/63 95 02/04/24 07:20 O2 Del Method 02/04/24 16:02 02/04/24 15:04 Room Air 02/04/24 10:58 Room Air 02/04/24 08:00 02/04/24 07:35 Room Air 02/04/24 07:20 Room Air Laboratory Results Short CBC 02/04/24 Range/Units 06:35 WBC 12.12 H (4.8-10.8) K/ul Hgb 10.8 L (14.0-18.0) g/dl Hct 33.5 L (42.0-52.0) % Plt Count 314 (130-400) K/uL BMP 02/04/24 06:35 Sodium 137 Potassium 4.0 Chloride 99 Carbon Dioxide 28 BUN 69 H Creatinine 1.85 H Glucose 100 H Calcium 9.7
[2024-02-05 08:27] LABS: BUN Creatinine Ratio 36.5 (10-20); Calcium 9.7 mg/dl (8.6-10.3); Creatinine Clr Calc Pharmacy 32.2 ml/min; Est GFR (African American) 37.8 ml/min; Est GFR (Non-African American) 32.7 ml/min; Potassium 3.9 mmol/L (3.5-5.1)
--- NOTE | 2024-02-05 11:02 | Cardiology Progress Note ---
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 Elevated troponin likely a type II event secondary to demand ischemia in the setting of respiratory insufficiency and acute heart failure. Conservative medical management recommended. HFrEF. Ongoing hypervolemia. - Continue IV furosemide another day. - No KENNETH, ARB, Neprilysin Inhibitor, or mineralocorticoid receptor antagonist. - Continue metoprolol succinate - Continue isosorbide. - Trial low dose hydralazine. ASCVD. Continue aspirin and rosuvastatin, and as above. Renal dysfunction. Creatinine stable. COVID-19 and possible pneumonia. As per Hospitalist. Admission and Anticipated Discharge Date Admission Date: January 30, 2024 Supervising Physician Co-Signing Physician Notes I have reviewed the advance practitioner's documentation, and I agree with, and take responsibility for the plan of care. I have personally performed a history and physical examination on the patient. Plan as above further IV furosemide today reassess in a.m. I spent a total of 20 minutes additional on the date of service in preparation, delivery, and documentation of the care provided to this patient, excluding any time spent in the performance of separately billed service Subjective Patient seen and examined. Chart, medications, and telemetry reviewed. + Ongoing dyspnea, abdominal bloating, orthopnea, mild edema. No chest pain or palpitations. I/O's - 1.9 L overall. Telemetry: Sinus in the 70's and 80's TTE on 01/31/2024: EF 20-25%. Large sized apical, septal, anteroseptal, anterior, inferior, posterior, and lateral WMA with hypokinesis to akinesis with aneurysmal explansion. mild to moderate MR, moderate TR, severe pulmonary hypertension with an estimated PASP 78 mmHg. Review of Systems Review of Systems: Complete Review of Systems is as stated above, negative, or noncontributory. Physical Exam Physical Exam: General: A&Ox3. NAD. HENT: Normocephalic. Atraumatic. Eyes: PER. Conjunctiva pink, sclera clear. Neck: JVD. Heart: RRR. Grade II/ apical systolic murmur. No diastolic murmur. Lungs: Bibascilar rales. Abdomen: +BS. Somewhat firm. Distended. No organomegaly. Extremities: Trace to 1+ very distal edema. No clubbing. No cyanosis. Limited neurological examination is without focal deficits. Pulses: radial=2/4, posterior tibial=1/4. Results & Data Vital Signs (Past 12 Hours) Vital Signs Temp Pulse Pulse Resp BP Pulse Ox O2 Del Method 02/05/24 10:48 36.6 C 75 18 130/66 99 Room Air 02/05/24 08:05 36 C L 87 18 150/74 H 95 Room Air 02/05/24 08:01 Room Air 02/05/24 07:34 71 02/05/24 03:59 77 02/05/24 02:40 36.6 C 78 16 147/69 H 97 Room Air Laboratory Results Comprehensive Metabolic Panel 02/05/24 Range/Units 07:41 Sodium 136 (136-145) mmol/L Potassium 3.9 (3.5-5.1) mmol/L Chloride 97 L (98-107) mmol/L Carbon Dioxide 30 (21-32) mmol/L BUN 66 H (6-23) mg/dl Creatinine 1.81 H (0.6-1.4) mg/dl Glucose 110 H (70-99(Fasting)) mg/dl Calcium 9.7 (8.6-10.3) mg/dl Intake and Output 02/04/24 02/05/24 02/05/24 22:59 06:59 14:59 Intake Total 200 / 1430 250 / 1430 Output Total 2000 Balance -550 / -571 -601 / -571 Intake: Oral 200 / 1430 250 / 1430 Output: Urine 1999 / 1999 # Bowel Movements Other: # Unmeasured Voids 1 Weight 80.2 kg 80.6 kg Weight Measurement Method Standing Scale Patient Weight 02/06/24 06:59 Weight 80.6 kg
--- NOTE | 2024-02-05 13:53 | CT Scan Report ---
CT OF THE ABDOMEN AND PELVIS WITHOUT CONTRAST CLINICAL HISTORY: Abdominal distention. COMPARISON STUDY: Chest CT April 04, 2023. TECHNIQUE: Axial images of the abdomen and pelvis were obtained without IV contrast. Images were revi ewed in the axial, sagittal, and coronal planes. Automated exposure control was utilized for the margie dy. A dose lowering technique was utilized adhering to the principles of ALARA. FINDINGS: Moderate right and small left pleural effusions are partially imaged on this exam. Extensiv e right lower lobe airspace opacity with volume loss favors atelectasis. Innumerable small nodules wi thin the lower lungs have been shown on multiple prior studies. No pneumatosis, free air or portal ve nous gas is present. Evaluation of the abdomen and pelvis is suboptimal on this unenhanced exam. Live r, spleen spleen, adrenal glands, kidneys and pancreas are unremarkable. There is no biliary or pancr eatic ductal dilatation. No hydronephrosis. No peripancreatic or pericholecystic infiltration is pres ent. Colonic diverticulosis is noted without evidence for acute diverticulitis. There is no bowel wal l thickening on unenhanced exam. Moderate amount of stool within the colon is present. There are brac hytherapy seeds within the prostate. No suspicious lesions are identified within the visualized skele nargis structures. There is no lymphadenopathy. No fluid collections are present. There is no ascites. IMPRESSION: 1. No acute process within the abdomen or pelvis on unenhanced exam. No bowel obstruction. 2. Colonic diverticulosis. No evidence for acute diverticulitis. 3. Moderate amount of stool within the colon. 4. Moderate right and small left pleural effusions. Extensive right lower lobe airspace opacities wit h volume loss favors atelectasis. Redemonstration of innumerable small nodules within the lower lungs , as shown on multiple prior studies. These remain nonspecific and could represent sarcoidosis, silic osis or coal workers pneumoconiosis. ACT 112: Negative or not required by law. Electronically signed by: Alexx Foster M.D. 02/05/2024 1:52 PM
[2024-02-05] MEDS: POLYETHYLENE (MIRALAX) 17 GM PACK PO SCH (15:28)
[2024-02-05] MEDS: DOCUSATE SODIUM 100 MG CAP PO SCH (15:28)
--- NOTE | 2024-02-05 16:16 | Hospitalist Progress Note ---
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 SOB In setting of decompensated HF, covid 19 and restrictive/interstitial lung disease as discussed below O2 saturation 94 on room air, continue 2L NC HS and supplemental O2 during day as needed Acute decompensated HFrEF --CXR with Cardiomegaly with pulmonary edema and chronic extensive reticular nodular opacities which are again suggestive an infectious or inflammatory process. Layering pleural effusions with bibasilar consolidation, right greater than left. --ECHO: EF 20 to 25%. 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 Mild to moderate mitral regurgitation, moderate tricuspid regurgitation. Estimated systolic pulmonary pressure is 78 mmHg. Severe pulmonary hypertension is present. When compared to prior echo, no significant change. --Alternates between 100mg and 50mg torsemide at home --BNP 1,280 --Monitor strict I&Os, daily weights, volume status Continue 60mg IV Lasix BID Appreciate cardiology input Continue metoprolol, Imdur Wilbur has been discontinued previously Resume Jardiance as able IV heparin discontinued Saturating well on room air Monitor volume status, renal function, electrolytes Renal function stable Continue IV diuresis per cardiology Started on low-dose hydralazine today Likely transition to oral diuretics tomorrow Type II GA--due to demand ischemia h/o NSTEMI on previous admission Troponin elevation in setting of decompensated CHF, CKD IV heparin discontinued Continue aspirin, statin, Plavix Covid-19 Infection Rhinovirus infection Suspected pneumonia secondary to COVID-19 Procalcitonin 0.37 Chest x-ray as above Received Remdesivir Saturating well on room air Also on Zosyn>> transitioned to cefdinir, Doxy Constipation Started on bowel regimen CKD IV Baseline Cr ~ 2 Monitor BMP daily Creatinine 1.8 today Renal function stable [place] [employer] pneumoconiosis Pulmonary nodule Bronchiectasis Restrictive lung disease History of Stenotrophomonas s/p treatment Levaquin Continue albuterol, Atrovent inhalers Flutter valve and Mucinex HLD Continue ASA and statin Ulcer of right foot Follows with wound clinic, recently started on 10d Keflex course with improved appearance Continue antibiotics as above, holding Keflex 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 Ling: Recommends mometasone 0.1% ointment twice daily x 2 weeks Needs follow-up with dermatology on discharge if unresponsive to mometasone Prednisone discontinued DVT Px: Heparin SQ Code status: DNR/DNI Disposition: Expected discharge home when stable Admission and Anticipated Discharge Date Admission Date: January 30, 2024 Subjective Patient is seen and examined at bedside Reports having poor sleep overnight Also was subjectively feels abdominal is more distended today Denies any cough, chest pain, nausea, vomiting, abdominal pain, diarrhea Still has some dyspnea on exertion Review of Systems Review of Systems: All systems reviewed & are unremarkable except as noted in Subjective Physical Exam Physical Exam: Physical Exam: Vitals signs as noted above General Appearance: Thin, frail, elderly, no apparent distress Head: normocephalic, Atraumatic Eyes: normal inspection, EOMI Neck: supple, Trachea midline Respiratory/Chest: Decreased breath sounds, CTA, No accessory muscle use Cardiovascular: S1, S2, No murmur Abdomen/GI:Soft, Non tender, Bowel sounds present,+ abdominal hernia Extremities/Musculoskeletal:normal inspection, no edema Neurologic/Psych:AAOX3, grossly no focal neurological deficits Skin: normal color, warm, erythematous rash multiple areas Results & Data Results & Data Vital Signs (Past 12 Hours) Vital Signs Temp Pulse Pulse Resp BP Pulse Ox O2 Del Method 02/05/24 16:04 77 02/05/24 10:48 36.6 C 75 18 130/66 99 Room Air 02/05/24 08:05 36 C L 87 18 150/74 H 95 Room Air 02/05/24 08:01 Room Air 02/05/24 07:34 71 Laboratory Results [facility] 02/05/24 07:41 Sodium 136 Potassium 3.9 Chloride 97 L Carbon Dioxide 30 BUN 66 H Creatinine 1.81 H Glucose 110 H Calcium 9.7
[2024-02-05] MEDS: hydrALAZINE 10 MG TAB PO SCH (20:07)
[2024-02-06 07:29] LABS: Hematocrit (blood only) 34.5 % (42.0-52.0); Hemoglobin 11.2 g/dl (14.0-18.0); Mean Corpuscular Hemoglobin 27.7 pg (25.0-34.0); Mean Corpuscular Hgb Conc 32.5 g/dL (32.0-36.0); Mean Corpuscular Volume 85.2 fL (80.0-100.0); Mean Platelet Volume 10.2 fL (9.4-12.4); Platelet Count 311 K/uL (130-400); RDW Coefficient of Variation 15.1 % (11.5-14.5); RDW Standard Deviation 46.2 fL (36.4-46.3); Red Blood Count 4.05 M/uL (4.70-6.10); White Blood Count 12.54 K/ul (4.8-10.8)
[2024-02-06 08:01] LABS: Calcium 9.8 mg/dl (8.6-10.3); Creatinine Clr Calc Pharmacy 30.8 ml/min; Est GFR (African American) 35.9 ml/min
[2024-02-06] MEDS ORDERED: POLYETHYLENE (MIRALAX) 17 GM PACK PO PRN (12:42)
--- NOTE | 2024-02-06 14:03 | Cardiology Progress Note ---
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 Elevated troponin likely a type II event secondary to demand ischemia in the setting of respiratory insufficiency and acute heart failure. Conservative medical management recommended. HFrEF. Volume status improved. - Discontinue IV furosemide after two doses today. - Start Torsemide 80 mg/day in AM of 02/07/2024 - No KENNETH, ARB, Neprilysin Inhibitor, or mineralocorticoid receptor antagonist. - Continue metoprolol succinate, isosorbide, hydralazine. ASCVD. Continue aspirin and rosuvastatin, and as above. Renal dysfunction. Creatinine stable. COVID-19 and possible pneumonia. As per Hospitalist. Admission and Anticipated Discharge Date Admission Date: January 30, 2024 Supervising Physician Co-Signing Physician Notes I have reviewed the advance practitioner's documentation, and I agree with, and take responsibility for the plan of care. I have personally performed a history and physical examination on the patient. Subjective Patient seen and examined. Chart, medications, and telemetry reviewed. Feeling better. Less dyspnea and abdominal bloating. No orthopnea. No edema. No chest pain or palpitations. Telemetry: Sinus in the 70's and 80's TTE on 01/31/2024: EF 20-25%. Large sized apical, septal, anteroseptal, anterior, inferior, posterior, and lateral WMA with hypokinesis to akinesis with aneurysmal explansion. mild to moderate MR, moderate TR, severe pulmonary hypertension with an estimated PASP 78 mmHg. Review of Systems Review of Systems: Complete Review of Systems is as stated above, negative, or noncontributory. Physical Exam Physical Exam: General: A&Ox3. NAD. HENT: Normocephalic. Atraumatic. Eyes: PER. Conjunctiva pink, sclera clear. Neck: No JVD. Heart: RRR. Grade II/ apical systolic murmur. No diastolic murmur. Lungs: Bibascilar rales. Abdomen: +BS. Soft. Less distended. No organomegaly. Extremities: No edema. No clubbing. No cyanosis. Limited neurological examination is without focal deficits. Pulses: radial=2/4, posterior tibial=1/4. Results & Data Vital Signs (Past 12 Hours) Vital Signs Temp Pulse Pulse Resp BP BP Pulse Ox 02/06/24 11:34 36.3 C L 86 19 133/81 96 02/06/24 07:36 36.6 C 81 19 122/70 98 02/06/24 07:15 02/06/24 06:00 78 02/06/24 02:33 37 C 74 18 119/62 98 O2 Del Method O2 Flow Rate 02/06/24 11:34 Room Air 02/06/24 07:36 Room Air 02/06/24 07:15 Nasal Cannula 2 02/06/24 06:00 02/06/24 02:33 Nasal Cannula Laboratory Results CBC 02/06/24 Range/Units 06:59 WBC 12.54 H (4.8-10.8) K/ul RBC 4.05 L (4.70-6.10) M/uL Hgb 11.2 L (14.0-18.0) g/dl Hct 34.5 L (42.0-52.0) % Plt Count 311 (130-400) K/uL Comprehensive Metabolic Panel 02/06/24 Range/Units 06:59 Sodium 137 (136-145) mmol/L Potassium 4.0 (3.5-5.1) mmol/L Chloride 97 L (98-107) mmol/L Carbon Dioxide 30 (21-32) mmol/L BUN 70 H (6-23) mg/dl Creatinine 1.89 H (0.6-1.4) mg/dl Glucose 108 H (70-99(Fasting)) mg/dl Calcium 9.8 (8.6-10.3) mg/dl Intake and Output 02/05/24 02/06/24 02/06/24 22:59 06:59 14:59 Intake Total 200 / 660 100 / 660 Output Total 600 / 1100 250 / 1100 Balance -400 / -440 -150 / -440 Intake: Oral 200 / 660 100 / 660 Output: Urine 600 / 1100 250 / 1100 Other: Weight 80.5 kg
--- NOTE | 2024-02-06 17:19 | Hospitalist Progress Note ---
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 SOB In setting of decompensated HF, covid 19 and restrictive/interstitial lung disease as discussed below O2 saturation 94 on room air, continue 2L NC HS and supplemental O2 during day as needed Acute decompensated HFrEF --CXR with Cardiomegaly with pulmonary edema and chronic extensive reticular nodular opacities which are again suggestive an infectious or inflammatory process. Layering pleural effusions with bibasilar consolidation, right greater than left. --ECHO: EF 20 to 25%. 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 Mild to moderate mitral regurgitation, moderate tricuspid regurgitation. Estimated systolic pulmonary pressure is 78 mmHg. Severe pulmonary hypertension is present. When compared to prior echo, no significant change. --Alternates between 100mg and 50mg torsemide at home --BNP 1,280 --Monitor strict I&Os, daily weights, volume status Continue 60mg IV Lasix BID Appreciate cardiology input Continue metoprolol, Imdur Wilbur has been discontinued previously Resume Jardiance as able IV heparin discontinued Saturating well on room air Monitor volume status, renal function, electrolytes Renal function stable Continue IV diuresis per cardiology Continue hydralazine Plan to transition to p.o. diuretics tomorrow Needs follow-up with cardiology on discharge Likely discharge home tomorrow Type II AR--due to demand ischemia h/o NSTEMI on previous admission Troponin elevation in setting of decompensated CHF, CKD IV heparin discontinued Continue aspirin, statin, Plavix Covid-19 Infection Rhinovirus infection Suspected pneumonia secondary to COVID-19 Procalcitonin 0.37 Chest x-ray as above Received Remdesivir Saturating well on room air Also on Zosyn>> transitioned to cefdinir, Doxy--3 more days Constipation Continue bowel regimen resolved CKD IV Baseline Cr ~ 2 Monitor BMP daily Creatinine 1.8 today Renal function stable [place] [employer] pneumoconiosis Pulmonary nodule Bronchiectasis Restrictive lung disease History of Stenotrophomonas s/p treatment Levaquin Continue albuterol, Atrovent inhalers Flutter valve and Mucinex HLD Continue ASA and statin Ulcer of right foot Follows with wound clinic, recently started on 10d Keflex course with improved appearance Continue antibiotics as above, holding Keflex Wound care nurse Erythematous rash--likely eczematous Treated with Permethrin 5 % External Cream x 2 and calamine lotion with resolut ion of itching, rash still present Discussed with dermatology Dr. Ling: Recommends mometasone 0.1% ointment twice daily x 2 weeks Needs follow-up with dermatology on discharge if unresponsive to mometasone Prednisone discontinued Improved DVT Px: Heparin SQ Code status: DNR/DNI Disposition: Expected discharge home when stable Admission and Anticipated Discharge Date Admission Date: January 30, 2024 Subjective Patient is seen and examined at bedside States feeling better today Had BM today Discussed with Cardiology today Less dyspnea today Denies any cough, chest pain, nausea, vomiting, abdominal pain, diarrhea Review of Systems Review of Systems: All systems reviewed & are unremarkable except as noted in Subjective Physical Exam Physical Exam: Physical Exam: Vitals signs as noted above General Appearance: Thin, frail, elderly, no apparent distress Head: normocephalic, Atraumatic Eyes: normal inspection, EOMI Neck: supple, Trachea midline Respiratory/Chest: Decreased breath sounds, CTA, No accessory muscle use Cardiovascular: S1, S2, No murmur Abdomen/GI:Soft, Non tender, Bowel sounds present,+ abdominal hernia Extremities/Musculoskeletal:normal inspection, no edema Neurologic/Psych:AAOX3, grossly no focal neurological deficits Skin: normal color, warm, erythematous rash multiple areas Results & Data Results & Data Vital Signs (Past 12 Hours) Vital Signs Temp Pulse Pulse Resp BP BP Pulse Ox 02/06/24 15:27 36.2 C L 67 18 122/66 98 02/06/24 11:34 36.3 C L 86 19 133/81 96 02/06/24 07:36 36.6 C 81 19 122/70 98 02/06/24 07:15 02/06/24 06:00 78 O2 Del Method O2 Flow Rate 02/06/24 15:27 Room Air 02/06/24 11:34 Room Air 02/06/24 07:36 Room Air 02/06/24 07:15 Nasal Cannula 2 02/06/24 06:00 Laboratory Results Short CBC 02/06/24 Range/Units 06:59 WBC 12.54 H (4.8-10.8) K/ul Hgb 11.2 L (14.0-18.0) g/dl Hct 34.5 L (42.0-52.0) % Plt Count 311 (130-400) K/uL BMP 02/06/24 06:59 Sodium 137 Potassium 4.0 Chloride 97 L Carbon Dioxide 30 BUN 70 H Creatinine 1.89 H Glucose 108 H Calcium 9.8
--- NOTE | 2024-02-07 03:51 | Electrocardiogram Report ---
Test Reason : Blood Pressure : / mmHG Vent. Rate : 072 BPM Atrial Rate : 072 BPM P-R Int : 174 ms QRS Dur : 096 ms QT Int : 430 ms P-R-T Axes : 092 -18 193 degrees QTc Int : 470 ms Normal sinus rhythm Septal infarct (cited on or before 11-SEP-2023) Abnormal ECG When compared with ECG of 30-JAN-2024 11:45, [place] interval has decreased Questionable change in initial forces of Anterior leads Confirmed by Cristian Mosley ([id number] on 02/07/2024 3:50:50 AM Referred By: REFERRED SELF Confirmed By:Cristian Mosley
[2024-02-07 07:46] LABS: Hematocrit (blood only) 32.8 % (42.0-52.0); Hemoglobin 10.5 g/dl (14.0-18.0); Mean Corpuscular Hemoglobin 27.5 pg (25.0-34.0); Mean Corpuscular Volume 85.9 fL (80.0-100.0); Mean Platelet Volume 9.8 fL (9.4-12.4); Platelet Count 297 K/uL (130-400); RDW Coefficient of Variation 15.3 % (11.5-14.5); RDW Standard Deviation 45.9 fL (36.4-46.3); Red Blood Count 3.82 M/uL (4.70-6.10); White Blood Count 10.74 K/ul (4.8-10.8)
[2024-02-07 08:24] LABS: BUN Creatinine Ratio 34.4 (10-20); Calcium 9.1 mg/dl (8.6-10.3); Creatinine Clr Calc Pharmacy 31.1 ml/min; Est GFR (African American) 36.6 ml/min; Est GFR (Non-African American) 31.6 ml/min; Potassium 3.8 mmol/L (3.5-5.1)
[2024-02-07] MEDS: TORSEMIDE 20 MG TAB PO SCH (08:47)
--- NOTE | 2024-02-07 13:34 | Discharge Summary ---
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 Patient lives alone and mentioned yesterday to his daughter that his breathing was not as good but otherwise felt okay. He then developed chills and worsening SOB and called her back asking to be taken to the hospital. Daughter who sees him everyday for wound care to chronic R foot wound has had runny nose but attributed it to allergies. Was started on Keflex by wound care last for his foot wound x 10 day course. [place] to be improving per daughter. Persistent rash on chest wall and distribution around arms and on groin. Spared armpits. Treated with permethrin cream x 2 doses as well as Calamine lotion with relief of itching but rash still present. Also tried triamcinolone cream per derm recommendations but it did not help and he stopped taking. No recent medication changes or new products with fragrance. No F/C, CP, N/V, dysuria, diarrhea or constipation. Last bowel movement was this morning. Abd distention attributed to hernia, which he was due for repair this Monday. Admission Exam Per Admitting Provider GENERAL APPEARANCE: AxOx4, generally well-appearing overall . HEENT: NC, AT. MMM. EOMI, clear conjunctiva, oropharynx clear. NECK: Supple without lymphadenopathy. No stiffness or restricted ROM. HEART: Normal rate and regular rhythm, MARLYS+ LUNGS: diffuse bilateral crackles, no cough with deep inhalation ABDOMEN: Soft, nontender protuberant with good bowel sounds heard. BACK: No CVAT, no obvious deformity. EXTREMITIES: Without cyanosis, clubbing. pitting pedal edema R>L NEUROLOGICAL: Grossly nonfocal. Alert and oriented, moving all 4 extremities. CN not formally tested but appear grossly intact. Skin: diffuse erythematous, sand-paper like confluence on torso, back, small patch on anterior right leg, sparing of groin/axilla/buttock/hands/feet small chronic wound with bandage on right foot, ulceration without drainage or signs of superimposed infection Principal Diagnosis Acute on chronic heart failure with reduced ejection fraction. COVID-19 infection. Rhinovirus infection Type 2 AL Discharge Exam Constitutional + well hydrated; no acute distress Eyes PERRL, conjunctivae normal, anicteric sclerae ENMT external ear and nose normal, oropharynx normal Respiratory normal respiratory effort, lungs clear to auscultation Cardiovascular S1 S2 Gastrointestinal (Abdomen) normal bowel sounds, soft, nontender, no hepatosplenomegaly Musculoskeletal No pedal edema Neurologic PERRL, EOMI, accommodation nl, no face palsy, no dysarthria Psychiatric A+Ox3, euthymic affect Discharge Data Allergies Allergy/AdvReac Type Severity Reaction Status Date / Time No Known Allergies Allergy Verified 01/26/24 09:10 Consultations 01/30/24 13:40 ED Decision to Admit Stat 01/30/24 15:23 Consult Cardiology Routine Ordered Studies 02/05/24 12:44 CT abd pelvis wo con Urgent Hospital Course (1) Acute on chronic HFrEF (heart failure with reduced ejection fraction): (2) Nocturnal hypoxemia: (3) COVID-19: (4) Stage 3b chronic kidney disease (CKD): (5) CKD (chronic kidney disease), stage III: (6) HTN (hypertension): (7) Restrictive lung disease: (8) 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 SOB In setting of decompensated HF, covid 19 and restrictive/interstitial lung disease Acute decompensated HFrEF --CXR with Cardiomegaly with pulmonary edema and chronic extensive reticular nodular opacities which are again suggestive an infectious or inflammatory process. Layering pleural effusions with bibasilar consolidation, right greater than left. --ECHO: EF 20 to 25%. 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 Mild to moderate mitral regurgitation, moderate tricuspid regurgitation. Estimated systolic pulmonary pressure is 78 mmHg. Severe pulmonary hypertension is present. When compared to prior echo, no significant change. --Alternates between 100mg and 50mg torsemide at home --BNP 1,280 Was managed with IV lasix while inpatient Cardiology evaluated inpatient Home torsemide changed to 80mg daily on discharge per Cardiology Started on hydralazine 10mg BID Continue metoprolol, Imdur ACEI had been discontinued previously Follow up with Cardiology outpatient Type II AL--due to demand ischemia h/o NSTEMI on previous admission Troponin elevation in setting of decompensated CHF, CKD Got IV heparin inpatient Continue aspirin, statin, Plavix Covid-19 Infection Rhinovirus infection Suspected pneumonia secondary to COVID-19 Procalcitonin 0.37 Treated with remdesivir and antibiotics inpatient CKD IV Baseline Cr ~ 2 Creatinine 1.86 today Renal function stable [place] [employer] pneumoconiosis Pulmonary nodule Bronchiectasis Restrictive lung disease History of Stenotrophomonas s/p treatment Levaquin Continue albuterol, Atrovent inhalers Flutter valve and Mucinex HLD Continue ASA and statin Ulcer of right foot Follows with wound clinic, recently started on 10d Keflex some days prior to admission Completed antibiotics today Follow up wound care Erythematous rash--likely eczematous Treated with Permethrin 5 % External Cream x 2 and calamine lotion with resolution of itching, rash still present Dr García had discussed with dermatology Dr. Ling: Recommended mometasone 0.1% ointment twice daily x 2 weeks Rash is almost resolved Patient to go home with remaining mometasone ointment being used in the hospital. RN aware Updated patient and Granddaughter at bedside Total Time Total Time Spent Total Time Spent (In Minutes): 40 Total Time Includes: Examination of the Patient, Discharge Planning, Medication Reconciliation and Communication With Other Providers Discharge Plan Discharge Items Patient Disposition: Home - Home Health Services Reason For Visit: Shortness of breath Discharge Diagnosis: Acute on chronic heart failure with reduced ejection fraction. COVID-19 infection. Rhinovirus infection Activity: Resume your previous activity Non-emergency contact: Primary Care Provider and Safety Compliance Specialist Call non-emergency contact if: you have any medication questions and your symptoms worsen Follow-up/Referrals: Claude Mata MD [Primary Care Provider] - (Date & Time 02/13/2024 2:00 PM Provider Deborah Whitaker CRNP Department Family Medicine [facility] ) Luh Garcia CRNP [Nurse Practitioner] - (The Cardiology office will contact you for a follow up appointment.) Diet: Heart Healthy Addtl Attending Provider Instructions: Mr. Elliott. You came to the hospital complaining of shortness of breath. You were evaluated in manage for the above listed diagnosis. You were seen by the mobile security architect while in the hospital. Your torsemide dose was changed to 80 mg daily. You were started on hydralazine. Please continue to use the mometasone cream for your rash until resolved. If not resolved or worsens, you can follow up with [facility] after that. Stop the cream once resolved. Please ensure follow up with your Family Doctor and Safety Compliance Specialist. It was a pleasure taking care of you. Pending Studies at Discharge: No Stand-Alone Forms: My [facility] [address] [employer], Smoking Cessation Medications and DC Order Prescriptions: New hydralazine 10 mg Tablet 10 mg PO BID 30 Days Qty: 60 0RF torsemide 20 mg Tablet 80 mg PO QAM 30 Days Qty: 120 0RF Continued tamsulosin 0.4 mg capsule 0.4 mg PO BID aspirin 81 mg tablet,delayed release (DR/EC) 81 mg PO DAILY Centrum Complete 18-400 mg-mcg tablet 1 tab PO DAILY cyanocobalamin (vitamin B-12) [Vitamin B-12] 100 mcg Tablet 100 mcg PO QAM citalopram 10 mg tablet 20 mg PO QAM pantoprazole 20 mg tablet,delayed release (DR/EC) 20 mg PO DAILYBB Rx Instructions: filled in September famotidine 20 mg Tablet 20 mg PO QAM Saline Nasal 0.65 % Aerosol,Jackpot 1 spray INTRANASAL BID PRN (Reason: NASAL DRYNESS) Atrovent HFA 17 mcg/actuation Hfa Aerosol Inhaler 2 puff INHALATION QID guaifenesin 600 mg Tablet Extended Release 12hr 600 mg PO Q12H PRN (Reason: Cough) fluticasone propionate 50 mcg/actuation spray,suspension 2 sprays intranasal QAM rosuvastatin 10 mg tablet 10 mg PO HS Jardiance 10 mg tablet 10 mg PO QAM Hold Instructions: Resume on 09/12/23. Until told to resume as an outpatient clopidogrel 75 mg Tablet 75 mg PO QAM Qty: 30 0RF nitroglycerin [Nitrostat] 0.4 mg Tablet, Sublingual 0.4 mg sublingual Q5M PRN (Reason: chest pain) Qty: 30 0RF metoprolol succinate 25 mg Tablet Extended Release 24 Hr 25 mg PO QAM Qty: 30 0RF isosorbide mononitrate 60 mg Tablet Extended Release 24 Hr 60 mg PO QAM Qty: 30 0RF allopurinol 100 mg tablet 100 mg PO UD Discontinued torsemide 100 mg tablet 100 mg PO UD Patient Comments: 1 Rx Instructions: 100mg today, 50 mg every other day cephalexin 500 mg capsule 500 mg PO TID 10 Days Qty: 30 0RF Rx Instructions: just started on last week x 10 days Discharge Orders: Discharge Order- CHF (Routine); Ordered 02/07/24 Ordered By: Yudith Darden Admission Data Admit Date/Time: 01/30/24 14:49 Attending Provider: Yudith Darden I. Admit Provider: Gwen Canas Primary Care Provider: Claude Mata Other Providers: Artemio Burger; Gwen Canas; Chavez Escobar [facility]; Richie García Other Interventions: Discharge Summary Assessment (RN) Last Done: 02/07/24 13:55
== END 2024-02-07 14:17 | disposition home health service (06) | DRG 177 ==
LOC: ED 11:40 → SUATTDRO 14:49 → 2S 14:49
DX: B34.8 Other viral infections of unspecified site; K59.00 Constipation, unspecified; L25.9 Unspecified contact dermatitis, unspecified cause; Z79.82 Long term (current) use of aspirin; I50.23 Acute on chronic systolic (congestive) heart failure; L97.519 Non-pressure chronic ulcer of other part of right foot with unspecified severity; N40.0 Benign prostatic hyperplasia without lower urinary tract symptoms; J60 Coalworker's pneumoconiosis; Z85.46 Personal history of malignant neoplasm of prostate; Z99.81 Dependence on supplemental oxygen; N18.4 Chronic kidney disease, stage 4 (severe); I21.A1 Myocardial infarction type 2; I25.5 Ischemic cardiomyopathy; I27.20 Pulmonary hypertension, unspecified; J47.9 Bronchiectasis, uncomplicated; J12.82 Pneumonia due to coronavirus disease 2019; E78.5 Hyperlipidemia, unspecified; Z92.3 Personal history of irradiation; I13.0 Hypertensive heart and chronic kidney disease with heart failure and stage 1 through stage 4 chronic kidney disease, or unspecified chronic kidney disease; I44.0 Atrioventricular block, first degree; J90 Pleural effusion, not elsewhere classified; U07.1 COVID-19

== ENCOUNTER 2024-02-27 11:49 | Inpatient (IN) ==
[2024-02-27 13:06] LABS: Basophils # (auto) 0.08 K/uL (0.00-0.20); Basophils % (auto) 0.8 %; Eosinophils # (auto) 0.49 K/uL (0.00-0.50); Eosinophils % (auto) 4.6 %; Hematocrit (blood only) 34.2 % (42.0-52.0); Hemoglobin 10.7 g/dl (14.0-18.0); Immature Granulocytes # (auto) 0.04 K/uL (0.01-0.20); Immature Granulocytes % (auto) 0.4 %; Lymphocytes # (auto) 0.76 K/uL (1.20-3.40); Lymphocytes % (auto) 7.2 %; Mean Corpuscular Hemoglobin 27.1 pg (25.0-34.0); Mean Corpuscular Hgb Conc 31.3 g/dL (32.0-36.0); Mean Corpuscular Volume 86.6 fL (80.0-100.0); Mean Platelet Volume 9.6 fL (9.4-12.4); Monocytes # (auto) 1.04 K/uL (0.11-0.59); Monocytes % (auto) 9.8 %; Neutrophils # (auto) 8.19 K/uL (1.40-6.50); Neutrophils % (auto) 77.2 %; Platelet Count 374 K/uL (130-400); RDW Coefficient of Variation 15.1 % (11.5-14.5); RDW Standard Deviation 47.6 fL (36.4-46.3); Red Blood Count 3.95 M/uL (4.70-6.10)
--- NOTE | 2024-02-27 13:08 | Emergency Department Note ---
Impression & Plan Acute on chronic HFrEF (heart failure with reduced ejection fraction), Hypoxia, CKD (chronic kidney disease), stage III ED Provider Note Provider: Zack Rosas MD DATE OF SERVICE: 02/27/2024 CHIEF COMPLAINT: Short of breath, abdominal distention HISTORY OF PRESENT ILLNESS: Patient is a 88-year-old gentleman history of CHF, CKD, hypertension, and restrictive lung disease presenting here today reporting last several days he had worsening breathing issues. Using his nightly oxygen now [id number]. Oxygen level at home in the 80s on room air which he is normally supposed to be on during the day. Denies fever. Reports some upper abdominal tension but not really pain. Denies any nausea or vomiting. Denies leg swelling. Reportedly had some blood work done through [facility] on Monday and home nursing talked with him further today and he was sent here for further evaluation. States did gain maybe a pound weight but denies significant dietary indiscretions. Daughter later arrived and states the patient did have some parenteral Lasix on Monday and Monday but did not seem to help things that much. PAST MEDICAL HISTORY: As noted above MEDICATIONS: Reviewed home medications states he did not yet take his furosemide yet today SOCIAL HISTORY: PHYSICAL EXAM: GENERAL: alert and oriented in no acute distress on stretcher Head: normocephalic and atraumatic EYES: No injection, discharge or icterus. PERRL, EOMI. NECK: Trachea midline. ENT: Mucous membranes pink and moist. LUNGS: Airway patent. No retractions. Breath sounds with crackles in the bases HEART: Regular rate and rhythm. No chest wall tenderness ABDOMEN: Soft and non-tender, without guarding or rebound mild abdominal distention appreciated without tenderness SKIN: Acyanotic, warm, dry, without rashes EXTREMITIES: Without swelling, tenderness or deformity NEUROLOGICAL: No focal deficits. No aphasia. No facial droop or slurred speech. Ambulatory. EK bpm sinus rhythm with left bundle branch block and PAC without acute ST segment elevation. QTc 450 CONTINUOUS CARDIAC MONITORING: was ordered and showed a heart rate of 80s-90s bpm in sinus rhythm occasional PAC Patient's laboratory studies and imaging reviewed. Differential includes Reactive airway disease, pneumonia, pneumothorax, COPD, CHF, infections, cardiac ischemia, pulmonary embolism, musculoskeletal, gastrointestinal, as well as other pathologies. IMPRESSION/MEDICAL DECISION MAKING: Respiratory viral panel testing ordered. Will obtain chest x-ray. Reviewed prior admission from the beginning of the month showing evidence of CHF at that time. No significant swelling of the lower extremities but abdominal tension did occur previously and question if this is fluid overload again. BMP sent. Chest x-ray ordered. EKG from the computer questions A-fib but this looks like sinus rhythm with PAC. Not having active chest pain. 2 L of oxygen seems to be enough to keep his pulse ox in the mid to low 90s. Not in any distress. Did have case management access his outpatient records and seems to indicate that his BUN was 61 his creatinine was 2.3 on Monday. Hemoglobin appears stable compared previously denies any active bleeding. No leukocytosis. Questions if heart failure is provoking renal dysfunction. Clinically appears to have abdominal swelling and fluid overloaded. Will give an IV dose of Bumex at this time. Still positive for rhino/enterovirus. Was positive for this last month unsure if he is totally cleared or not. Discussed with patient as well as daughter given these failing outpatient treatment with CKD and findings of heart failure will bring into the hospital for further care. Hospitalist team contacted. DIAGNOSIS: Acute CHF, hypoxia, CKD, entero-/rhinovirus DISPOSITION: Hospitalist will evaluate. Patient and daughter agreeable with this plan. Past Med/Surg History Problem List (Updated 02/27/24 @ 15:54 by Zack Rosas M.D.) Hypoxia (Acute) Severe pulmonary hypertension Elevated troponin (Acute) COVID-19 (Acute) Nocturnal hypoxemia BPH (benign prostatic hyperplasia) Acute on chronic HFrEF (heart failure with reduced ejection fraction) (Acute) Abnormal ankle brachial index Stage III pressure ulcer (Acute) Stage 3b chronic kidney disease (CKD) Cough with hemoptysis NSTEMI (non-ST elevated myocardial infarction) Abnormal EKG (Acute) Bilateral pleural effusion (Acute) Dyspnea on exertion (Acute) Acute respiratory distress (Acute) Respiratory failure (Acute) HFrEF (heart failure with reduced ejection fraction) History of prostate cancer s/p XRT with brachy boost CKD (chronic kidney disease), stage III (Acute) HTN (hypertension) Restrictive lung disease (Acute) 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, coal, workers' (Acute) Medical History BPH (benign prostatic hyperplasia) Acute on chronic HFrEF (heart failure with reduced ejection fraction) Acute on chronic renal failure Elevated troponin I level Chest pain Pulmonary edema Stage 3b chronic kidney disease (CKD) Cough with hemoptysis Bilateral pleural effusion Dyspnea on exertion HFrEF (heart failure with reduced ejection fraction) History of prostate cancer s/p XRT with brachy boost HTN (hypertension) Restrictive lung disease 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, coal, workers' Prostate cancer (11/03/14) "Rising PSA to 7.46 Status post ultrasound-guided biopsies revealing adenocarcinoma Gabriela 4+3, biopsy stage T2c Initiation of hormone suppression prior to prostate seed implant, short course Status post prostate seed implant 02/03/2015 with cesium 131 received 8500 cGy 50 seeds placed Status post completion of IMRT/IGRT 04/28/2015 received 4500 cGy " On 05/26/15 14:44 Shira Goldberg wrote "Rising PSA to 7.46 Status post ultrasound-guided biopsies revealing adenocarcinoma Gabriela 4+3, biopsy stage T2c Initiation of hormone suppression prior to prostate seed implant Status post prostate seed implant 02/03/2015 with cesium 131 received 8500 cGy 50 seeds placed Status post completion of IMRT/IGRT 04/28/2015 received 4500 cGy " On 05/01/15 12:43 Sandra Marquez wrote "Rising PSA to 7.46 Status post ultrasound-guided biopsies revealing adenocarcinoma [place] 4+3, biopsy stage T2c Initiation of hormone suppression Status post prostate seed implant 02/03/2015 with cesium 131 received 8500 cGy 50 seeds placed Status post completion of IMRT/IGRT 04/28/2015 received 4500 cGy " On 03/17/15 15:55 Sandra Marquez wrote "Rising PSA to 7.46 Status post ultrasound-guided biopsies revealing adenocarcinoma Gabriela 4+3, biopsy stage T2c Initiation of hormone suppression Status post prostate seed implant 02/03/2015 with cesium 131 received 8500 cGy 50 seeds placed Now for completion of IMRT/IGRT" Surgical History History of appendectomy H/O shoulder surgery Family History Other Heart disease Social History Smoking Status: Never smoker Tobacco Type: Cigarettes Second Hand Exposure: No; Do You Dip or Chew Tobacco: No; Hx Alcohol Use: No Hx Substance Use: No Preferred Language: Ethiopian Communication Ability: Effective Industrial Hygiene Manager Required: No Beliefs That Will Affect Care: None marital status: / Current Living Situation: Alone Feels Safe at Home: Yes Assistive Devices: Cane, Oxygen - at Night and Walker Allergies Allergies Allergy/AdvReac Type Severity Reaction Status Date / Time trazodone AdvReac Hallucinati Verified 02/27/24 15:24 ng Home Meds Home Medications Medication Instructions Recorded Confirmed aspirin 81 mg tablet,delayed 81 mg PO DAILY 05/21/19 02/27/24 release tamsulosin 0.4 mg capsule 0.4 mg PO AMHS 05/21/19 02/27/24 multivitamin-ferrous 1 tab PO DAILY 05/22/19 02/27/24 fumarate-folic acid 18 mg-400 mcg tablet (Centrum Complete) famotidine 20 mg tablet 20 mg PO QAM 03/06/23 02/27/24 guaifenesin 600 mg tablet, 600 mg PO Q12H PRN Cough 03/06/23 02/27/24 extended release 12 hr ipratropium bromide 17 2 puff inhalation QID 03/06/23 02/27/24 mcg/actuation HFA aerosol inhaler (Atrovent HFA) sodium chloride 0.65 % nasal spray 1 spray intranasal UD PRN 03/06/23 02/27/24 aerosol (Saline Nasal) Congestion fluticasone propionate 50 2 sprays intranasal QAM 09/09/23 02/27/24 mcg/actuation nasal spray,suspension rosuvastatin 10 mg tablet 10 mg PO HS 09/09/23 02/27/24 allopurinol 100 mg tablet 100 mg PO QAM 01/30/24 02/27/24 citalopram 20 mg tablet 20 mg PO QAM 02/27/24 02/27/24 hydralazine 10 mg tablet 10 mg PO AMHS 02/27/24 02/27/24 mometasone 0.1 % topical ointment 1 applic topical DAILY 02/27/24 02/27/24 pantoprazole 40 mg tablet,delayed 40 mg PO QAM 02/27/24 02/27/24 release Previous Rx's Medication Instructions Recorded clopidogrel 75 mg tablet 75 mg PO QAM #30 tabs 09/12/23 isosorbide mononitrate 60 mg 60 mg PO QAM #30 tabs 09/12/23 tablet,extended release 24 hr metoprolol succinate 25 mg 25 mg PO QAM #30 tabs 09/12/23 tablet,extended release 24 hr nitroglycerin 0.4 mg sublingual 0.4 mg sublingual Q5M PRN chest 09/12/23 tablet (Nitrostat) pain #30 tabs torsemide 20 mg tablet 80 mg (4 x 20 mg) PO QAM 30 days 02/07/24 #120 tabs Results & Data (ED) Vital Signs Vital Signs - 24 hr 02/27/24 11:55 02/27/24 11:57 02/27/24 11:59 Temperature 36.8 C Temperature Source Oral Pulse Rate 92 H 92 H Pulse Rate from SpO2 Sensor 92 H Pulse Rhythm Regular Pulse Strength Normal Respiratory Rate 18 18 Respiratory Effort / Characteristics Non-Labored Spontaneous Respiratory Depth Normal Respiratory Pattern Regular Blood Pressure 136/76 Blood Pressure Mean 96 Pulse Oximetry 96 96 86 L Oxygen Delivery Method Nasal Cannula Room Air Oxygen Flow Rate 2 2 Sepsis Recent Fever Within 48 Hours No Sepsis New/Unexplained Change in Mental Status No Sepsis Action Taken by Nursing No Action Required Oxygen Flow Rate - Titration 2 Pulse Oximetry Post Tiitration 96 02/27/24 11:59 02/27/24 12:00 02/27/24 12:30 Temperature Temperature Source Pulse Rate 93 H 90 91 H Pulse Rate from SpO2 Sensor 91 H 91 H Pulse Rhythm Pulse Strength Respiratory Rate 17 24 Respiratory Effort / Characteristics Respiratory Depth Respiratory Pattern Blood Pressure Blood Pressure Mean Pulse Oximetry 96 92 Oxygen Delivery Method Oxygen Flow Rate 2 2 Sepsis Recent Fever Within 48 Hours Sepsis New/Unexplained Change in Mental Status Sepsis Action Taken by Nursing Oxygen Flow Rate - Titration Pulse Oximetry Post Tiitration 02/27/24 12:31 02/27/24 13:00 02/27/24 13:10 Temperature Temperature Source Pulse Rate 90 91 H Pulse Rate from SpO2 Sensor 90 91 H Pulse Rhythm Pulse Strength Respiratory Rate 22 18 Respiratory Effort / Characteristics SOB on Exertion Respiratory Depth Normal Respiratory Pattern Regular Blood Pressure Blood Pressure Mean Pulse Oximetry 96 94 Oxygen Delivery Method Nasal Cannula Oxygen Flow Rate 2 2 2 Sepsis Recent Fever Within 48 Hours Sepsis New/Unexplained Change in Mental Status Sepsis Action Taken by Nursing Oxygen Flow Rate - Titration Pulse Oximetry Post Tiitration 02/27/24 13:10 02/27/24 13:30 02/27/24 13:30 Temperature Temperature Source Pulse Rate 87 Pulse Rate from SpO2 Sensor 87 Pulse Rhythm Pulse Strength Respiratory Rate 17 Respiratory Effort / Characteristics Respiratory Depth Respiratory Pattern Blood Pressure 138/89 140/79 Blood Pressure Mean 107 114 Pulse Oximetry 96 Oxygen Delivery Method Oxygen Flow Rate 2 Sepsis Recent Fever Within 48 Hours Sepsis New/Unexplained Change in Mental Status Sepsis Action Taken by Nursing Oxygen Flow Rate - Titration Pulse Oximetry Post Tiitration 02/27/24 14:00 02/27/24 14:00 02/27/24 14:28 Temperature Temperature Source Pulse Rate 87 Pulse Rate from SpO2 Sensor 87 Pulse Rhythm Pulse Strength Respiratory Rate 18 Respiratory Effort / Characteristics Respiratory Depth Respiratory Pattern Blood Pressure 147/89 H Blood Pressure Mean 103 Pulse Oximetry 95 98 Oxygen Delivery Method Nasal Cannula Oxygen Flow Rate 2 2 Sepsis Recent Fever Within 48 Hours Sepsis New/Unexplained Change in Mental Status Sepsis Action Taken by Nursing Oxygen Flow Rate - Titration Pulse Oximetry Post Tiitration 02/27/24 14:30 02/27/24 14:30 02/27/24 15:00 Temperature Temperature Source Pulse Rate 89 Pulse Rate from SpO2 Sensor 90 Pulse Rhythm Pulse Strength Respiratory Rate 18 Respiratory Effort / Characteristics Respiratory Depth Respiratory Pattern Blood Pressure 146/84 H 145/92 H Blood Pressure Mean 110 101 Pulse Oximetry 96 Oxygen Delivery Method Oxygen Flow Rate 2 Sepsis Recent Fever Within 48 Hours Sepsis New/Unexplained Change in Mental Status Sepsis Action Taken by Nursing Oxygen Flow Rate - Titration Pulse Oximetry Post Tiitration 02/27/24 15:00 02/27/24 15:30 02/27/24 15:30 Temperature Temperature Source Pulse Rate 93 H 85 Pulse Rate from SpO2 Sensor 92 H 86 Pulse Rhythm Pulse Strength Respiratory Rate 19 17 Respiratory Effort / Characteristics Respiratory Depth Respiratory Pattern Blood Pressure 144/86 H Blood Pressure Mean 103 Pulse Oximetry 96 98 Oxygen Delivery Method Oxygen Flow Rate Sepsis Recent Fever Within 48 Hours Sepsis New/Unexplained Change in Mental Status Sepsis Action Taken by Nursing Oxygen Flow Rate - Titration Pulse Oximetry Post Tiitration Laboratory Data 02/27/24 12:30 02/27/24 12:30 Lab Results 02/27/24 02/27/24 02/27/24 Range/Units 12:30 14:17 14:26 WBC 10.60 (4.8-10.8) K/ul RBC 3.95 L (4.70-6.10) M/uL Hgb 10.7 L (14.0-18.0) g/dl Hct 34.2 L (42.0-52.0) % MCV 86.6 (80.0-100.0) fL MCH 27.1 (25.0-34.0) pg MCHC 31.3 L (32.0-36.0) g/dL RDW Std Deviation 47.6 H (36.4-46.3) fL RDW Coeff of Nehemias 15.1 H (11.5-14.5) % Plt Count 374 (130-400) K/uL MPV 9.6 (9.4-12.4) fL Immature Gran % (Auto) 0.4 % Neut % (Auto) 77.2 % Lymph % (Auto) 7.2 % Granite % (Auto) 9.8 % Eos % (Auto) 4.6 % Baso % (Auto) 0.8 % Neut # (Auto) 8.19 H (1.40-6.50) K/uL Lymph # (Auto) 0.76 L (1.20-3.40) K/uL Granite # (Auto) 1.04 H (0.11-0.59) K/uL Eos # (Auto) 0.49 (0.00-0.50) K/uL Baso # (Auto) 0.08 (0.00-0.20) K/uL Immature Gran # (Auto) 0.04 (0.01-0.20) K/uL PT 11.8 (9.0-12.0) Seconds INR 1.1 (0.9-1.1) APTT 26 (21-31) Seconds PTT Ratio 1.0 Sodium 137 (136-145) mmol/L Potassium 3.7 (3.5-5.1) mmol/L Chloride 93 L (98-107) mmol/L Carbon Dioxide 35 H (21-32) mmol/L Anion Gap 9 (3-11) BUN 62 H (6-23) mg/dl Creatinine 2.17 H (0.6-1.4) mg/dl Est Cr Clr Drug Dosing 27.3 ml/min Est GFR ( Amer) 30.4 ml/min Est GFR (Non-Af Amer) 26.2 ml/min BUN/Creatinine Ratio 28.6 H (10-20) Glucose 126 H (70-99(Fasting)) mg/dl Calcium 9.7 (8.6-10.3) mg/dl Magnesium 2.4 (1.7-2.4) mg/dl Total Bilirubin 0.5 (0.2-1.0) mg/dl AST 16 (13-39) U/L ALT 12 (7-52) U/L Alkaline Phosphatase 63 (34-104) U/L Troponin I High Sens 27.4 H 31.8 H (0-20) pg/ml B-Natriuretic Peptide 2331 H (0-100) pg/ml Total Protein 7.8 (6.0-8.3) gm/dl Albumin 4.0 (3.4-5.0) gm/dl Globulin 3.8 (2.5-4.0) gm/dl Albumin/Globulin Ratio 1.1 (0.9-2) Urine Color Yellow Urine Appearance Clear (Clear) Urine pH 5.5 (4.5-7.5) Ur Specific [place] 1.017 (1.000-1.030) Urine Protein Trace H (Negative) Urine Glucose (UA) 2+ H (Negative) Urine Ketones Negative (Negative) Urine Blood Negative (Negative) Urine Nitrite Negative (Negative) Urine Bilirubin Negative (Negative) Urine Urobilinogen Negative (Negative) Ur Leukocyte Esterase Negative (Negative) Urine WBC (Auto) 0-5 (0-5) /hpf Urine RBC (Auto) 0-2 (0-2) /hpf U Hyaline Cast (Auto) 3-5 H (0-2) /lpf U Epithel Cells (Auto) 0-2 (0-2) /hpf Urine Bacteria (Auto) None Seen (None Seen) Adenovirus (PCR) (NotDetected) B. pertussis DNA (PCR) (NotDetected) B.parapertussis DNA PCR (NotDetected) C. pneumoniae DNA (PCR) (NotDetected) Coronavirus OC43 (PCR) (NotDetected) Coronavirus HKU1 (PCR) (NotDetected) Coronavirus 229E (PCR) (NotDetected) SARS-CoV-2 (PCR) (NotDetected) Coronavirus NL63 (PCR) (NotDetected) Human Metapneumovir PCR (NotDetected) Influenza Type A (PCR) (NotDetected) Influenza Type B (PCR) (NotDetected) M. pneumoniae (PCR) (NotDetected) Parainfluenza 1 (PCR) (NotDetected) Parainfluenza 2 (PCR) (NotDetected) Parainfluenza 3 (PCR) (NotDetected) Parainfluenza 4 (PCR) (NotDetected) RSV (PCR) (NotDetected) Entero/Rhino (PCR) (NotDetected) 02/27/24 Range/Units Unknown WBC (4.8-10.8) K/ul RBC (4.70-6.10) M/uL Hgb (14.0-18.0) g/dl Hct (42.0-52.0) % MCV (80.0-100.0) fL MCH (25.0-34.0) pg MCHC (32.0-36.0) g/dL RDW Std Deviation (36.4-46.3) fL RDW Coeff of Nehemias (11.5-14.5) % Plt Count (130-400) K/uL MPV (9.4-12.4) fL Immature Gran % (Auto) % Neut % (Auto) % Lymph % (Auto) % Granite % (Auto) % Eos % (Auto) % Baso % (Auto) % Neut # (Auto) (1.40-6.50) K/uL Lymph # (Auto) (1.20-3.40) K/uL Granite # (Auto) (0.11-0.59) K/uL Eos # (Auto) (0.00-0.50) K/uL Baso # (Auto) (0.00-0.20) K/uL Immature Gran # (Auto) (0.01-0.20) K/uL PT (9.0-12.0) Seconds INR (0.9-1.1) APTT (21-31) Seconds PTT Ratio Sodium (136-145) mmol/L Potassium (3.5-5.1) mmol/L Chloride (98-107) mmol/L Carbon Dioxide (21-32) mmol/L Anion Gap (3-11) BUN (6-23) mg/dl Creatinine (0.6-1.4) mg/dl Est Cr Clr Drug Dosing ml/min Est GFR ( Amer) ml/min Est GFR (Non-Af Amer) ml/min BUN/Creatinine Ratio (10-20) Glucose (70-99(Fasting)) mg/dl Calcium (8.6-10.3) mg/dl Magnesium (1.7-2.4) mg/dl Total Bilirubin (0.2-1.0) mg/dl AST (13-39) U/L ALT (7-52) U/L Alkaline Phosphatase (34-104) U/L Troponin I High Sens (0-20) pg/ml B-Natriuretic Peptide (0-100) pg/ml Total Protein (6.0-8.3) gm/dl Albumin (3.4-5.0) gm/dl Globulin (2.5-4.0) gm/dl Albumin/Globulin Ratio (0.9-2) Urine Color Urine Appearance (Clear) Urine pH (4.5-7.5) Ur Specific [place] (1.000-1.030) Urine Protein (Negative) Urine Glucose (UA) (Negative) Urine Ketones (Negative) Urine Blood (Negative) Urine Nitrite (Negative) Urine Bilirubin (Negative) Urine Urobilinogen (Negative) Ur Leukocyte Esterase (Negative) Urine WBC (Auto) (0-5) /hpf Urine RBC (Auto) (0-2) /hpf U Hyaline Cast (Auto) (0-2) /lpf U Epithel Cells (Auto) (0-2) /hpf Urine Bacteria (Auto) (None Seen) Adenovirus (PCR) Not Detected (NotDetected) B. pertussis DNA (PCR) Not Detected (NotDetected) B.parapertussis DNA PCR Not Detected (NotDetected) C. pneumoniae DNA (PCR) Not Detected (NotDetected) Coronavirus OC43 (PCR) Not Detected (NotDetected) Coronavirus HKU1 (PCR) Not Detected (NotDetected) Coronavirus 229E (PCR) Not Detected (NotDetected) SARS-CoV-2 (PCR) Not Detected (NotDetected) Coronavirus NL63 (PCR) Not Detected (NotDetected) Human Metapneumovir PCR Not Detected (NotDetected) Influenza Type A (PCR) Not Detected (NotDetected) Influenza Type B (PCR) Not Detected (NotDetected) M. pneumoniae (PCR) Not Detected (NotDetected) Parainfluenza 1 (PCR) Not Detected (NotDetected) Parainfluenza 2 (PCR) Not Detected (NotDetected) Parainfluenza 3 (PCR) Not Detected (NotDetected) Parainfluenza 4 (PCR) Not Detected (NotDetected) RSV (PCR) Not Detected (NotDetected) Entero/Rhino (PCR) DETECTED A (NotDetected) Administered Medications Discontinued Medications Bumetanide 1 mg/ Syringe 4 mls @ 4 mls/min IV ONE ONE Stop: 02/27/24 13:30 Last Admin: 02/27/24 14:15 Dose: 4 mls/min Documented By: DS Imaging Data Radiologist's Impression: Chest X-Ray 02/27/24 12:13 XR chest 1V portable CLINICAL HISTORY: Dyspnea TECHNIQUE: Single frontal radiograph of the chest was obtained. Comparison: Comparison is made to chest radiograph 02/01/2024 FINDINGS: No lines and tubes are seen. Calcified aortic knob is seen. Prominence and cephalization of the vasculature is seen. Interval enlargement of bilateral pleural effusions. IMPRESSION: 1. Cardiomegaly and mild pulmonary edema. 2. Interval slight worsening of bilateral pleural effusions. ACT 112: Negative or not required by law. Electronically signed by: Javon Gallegos M.D. 02/27/2024 1:11 PM Discharge Plan Visit Data Chief Complaint: Shortness of Breath/Dyspnea Stated Complaint: SOB ED Provider: Zack Rosas Discharge Problem: Acute on chronic HFrEF (heart failure with reduced ejection fraction), Hypoxia, CKD (chronic kidney disease), stage III Patient Disposition: Being Evaluated by Hospitalist Forms Stand Alone Forms: My [employer] Prescriptions Prescriptions: No Action tamsulosin 0.4 mg capsule 0.4 mg PO AMHS aspirin 81 mg tablet,delayed release (DR/EC) 81 mg PO DAILY Centrum Complete 18-400 mg-mcg tablet 1 tab PO DAILY famotidine 20 mg Tablet 20 mg PO QAM Saline Nasal 0.65 % Aerosol,[place] 1 spray INTRANASAL UD PRN (Reason: Congestion) Rx Instructions: use as needed for congestion Atrovent HFA 17 mcg/actuation Hfa Aerosol Inhaler 2 puff INHALATION QID guaifenesin 600 mg Tablet Extended Release 12hr 600 mg PO Q12H PRN (Reason: Cough) fluticasone propionate 50 mcg/actuation spray,suspension 2 sprays intranasal QAM rosuvastatin 10 mg tablet 10 mg PO HS clopidogrel 75 mg Tablet 75 mg PO QAM Qty: 30 0RF nitroglycerin [Nitrostat] 0.4 mg Tablet, Sublingual 0.4 mg sublingual Q5M PRN (Reason: chest pain) Qty: 30 0RF metoprolol succinate 25 mg Tablet Extended Release 24 Hr 25 mg PO QAM Qty: 30 0RF isosorbide mononitrate 60 mg Tablet Extended Release 24 Hr 60 mg PO QAM Qty: 30 0RF allopurinol 100 mg tablet 100 mg PO QAM torsemide 20 mg Tablet 80 mg PO QAM 30 Days Qty: 120 0RF mometasone 0.1 % ointment 1 applic TOPICAL DAILY Rx Instructions: apply to red and itchy areas hydralazine 10 mg tablet 10 mg PO AMHS citalopram 20 mg tablet 20 mg PO QAM pantoprazole 40 mg tablet,delayed release (DR/EC) 40 mg PO QAM Referrals Referrals: Claude Mata MD [Primary Care Provider] -
--- NOTE | 2024-02-27 13:12 | XRay Report ---
XR chest 1V portable CLINICAL HISTORY: Dyspnea TECHNIQUE: Single frontal radiograph of the chest was obtained. Comparison: Comparison is made to chest radiograph 02/01/2024 FINDINGS: No lines and tubes are seen. Calcified aortic knob is seen. Prominence and cephalization of the vascu lature is seen. Interval enlargement of bilateral pleural effusions. IMPRESSION: 1. Cardiomegaly and mild pulmonary edema. 2. Interval slight worsening of bilateral pleural effusions. ACT 112: Negative or not required by law. Electronically signed by: Javon Gallegos M.D. 02/27/2024 1:11 PM
[2024-02-27 13:17] LABS: Albumin Globulin Ratio 1.1 (0.9-2); BUN Creatinine Ratio 28.6 (10-20); Bilirubin,Total 0.5 mg/dl (0.2-1.0); Calcium 9.7 mg/dl (8.6-10.3); Creatinine Clr Calc Pharmacy 27.3 ml/min; Est GFR (African American) 30.4 ml/min; Est GFR (Non-African American) 26.2 ml/min; Globulin 3.8 gm/dl (2.5-4.0); Magnesium 2.4 mg/dl (1.7-2.4); Potassium 3.7 mmol/L (3.5-5.1); Total Protein 7.8 gm/dl (6.0-8.3)
[2024-02-27 13:23] LABS: INR 1.1 (0.9-1.1); Partial Thromboplastin Time 26 Seconds (21-31); Prothrombin Time 11.8 Seconds (9.0-12.0); Troponin I High Sensitivity 27.4 pg/ml (0-20)
[2024-02-27 13:31] LABS: Adenovirus PCR Not Detected (NotDetected); Bordetella parapertussis PCR Not Detected (NotDetected); Bordetella pertussis PCR Not Detected (NotDetected); Chlamydia pneumoniae PCR Not Detected (NotDetected); Coronavirus 229E PCR Not Detected (NotDetected); Coronavirus CoV-2 (COVID19)PCR Not Detected (NotDetected); Coronavirus HKU1 PCR Not Detected (NotDetected); Coronavirus NL63 PCR Not Detected (NotDetected); Coronavirus OC43PCR Not Detected (NotDetected); Human Metapneumovirus PCR Not Detected (NotDetected); Influenza A PCR Not Detected (NotDetected); Influenza B PCR Not Detected (NotDetected); Mycoplasma pneumoniae PCR Not Detected (NotDetected); Parainfluenza Virus 1 PCR Not Detected (NotDetected); Parainfluenza Virus 2 PCR Not Detected (NotDetected); Parainfluenza Virus 3 PCR Not Detected (NotDetected); Parainfluenza Virus 4 PCR Not Detected (NotDetected); Respiratory Syncytial VirusPCR Not Detected (NotDetected); Rhinovirus/Enterovirus PCR DETECTED (NotDetected)
[2024-02-27] MEDS: BUMETANIDE 1 MG in SYRINGE 0 ML IV ONE (14:15)
--- NOTE | 2024-02-27 14:28 | History & Physical Report ---
Date of Service February 27, 2024 Assessment & Plan (1) Acute on chronic HFrEF (heart failure with reduced ejection fraction): (2) Dyspnea on exertion: (3) Severe pulmonary hypertension: (4) Restrictive lung disease: (5) HTN (hypertension): (6) Hypoxia: (7) Nocturnal hypoxemia: (8) Stage 3b chronic kidney disease (CKD): Plan: Acute on chronic CHF exacerbation Acute hypoxemia, chronic nocturnal hypoxemia Fluid overload HTN Severe pulmonary hypertension HLD -Admit to PCU/telemetry -Patient was administered 2 separate doses of IV Lasix 100 mg each on 02/21 and 02/22 without significant improvement, he has been taking torsemide 80 mg daily prior to this exacerbation -Dry weight appears to be 170 pounds, up to 175 -Consult cardiology for diuretic regimen, administered Bumex in the ER, cont bumex 1 mg IV BID - Missed morning medications- give metoprolol tartrate 25 mg now to avoid rebound tachy, bp is elevated. -Strict I's and O's, daily weights, fluid restriction - echo 01/31 reviewed showing severe dysfunction, EF of 20%, all ramires have hypokinesis, severe pulm htn reviewed - defer to cards if want limited echo during this admission -Wean oxygen as tolerated, normally wears 2 L HS, but not during the day which he is currently requiring. -Still positive for enterovirus/rhinovirus which appears was positive at the beginning of the month -Will check CT chest without contrast to r/o infectious etiology -Check VBG HLD - Lipid panel reviewed in [facility] from 12/21/23 which are showing elevated triglycerides at 175, cholesterol 131, HDL 47, LDL 49 CKD stage IIIb - Creatinine slightly elevated at 2.1, appears baseline is 1.8, trend with a.m. labs with aggressive diuresis Right foot Wound Osteomyelitis - MRI R foot w/o contrast obtained as outpt reviewed - showing early osteo at the 5th metatarsal head - Start on vanc and ceftriaxone IV - consider ID consultation for abx recommendations pending wound culture results - 01/18 grew out staph - Wound culture of the foot - Follow blood cultures - Can consider ortho consult for debridement per day team DVT ppx: teds, scds, plavix, aspirin Lines: PIV x 1 FEN/GI: HH with fluid restriction 1500 mL CODE:Full code Dispo: From home, likely to remain in the hospital x 1-2 days A total of 85 minutes were spent with greater than 50% of that time face to face with the patient, personally reviewing all current laboratories, imaging studies, past medication reconciliation, outpatient chart review, and discussion with specialists to collaborate care for the patient with attending. Please see attending documentation for corrections and/or additions. 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 Patient was recently admitted at the beginning of this month for similar from 01/29 to 02/06 where he was treated for acute decompensated systolic CHF exacerbation. He had an echo at that point in time which showed an EF of 20 to 25%, severe pulmonary hypertension is present, large apical, septal, anterior septal, anterior, inferior, posterior and lateral wall motion abnormality with hypokinesis to akinesis. At that time he was managed with IV Lasix while inpatient. He was sent home and told to take torsemide 80 mg daily per cardiology. He remains on metoprolol and Imdur. At that time he was also treated for a type II KS due to demand ischemia, has a history of NSTEMI on previous admission. Today he does not appear to have demand ischemia as his troponin is minimal. Patient has had acute weight gain, increased edema in his feet, abdominal bloating, dry cough and presents for concern for CHF exacerbation. He had been seen by [facility] at home nursing on 02/22 as he had weight gain from his dry weight of 170 up to 175 in less than 1 week, he was given Lasix IV 100 mg for fluid overload on 02/21, as he was wearing oxygen at 2L via NC and at baseline does not require any daytime supplemental O2. He was given administered a second dose of IV Lasix of 100 mg at home on 02/22. Patient presented for outpatient labs on 02/26 and states that he was still having worsening shortness of breath and wearing his O2 continuously despite IV diuretics administered over the weekend. Family also notes that he has been dealing with a right lateral foot wound which seem to have improved during his previous hospital stay here when he was treated for pneumonia with antibiotics as an inpatient, and since discharge has again worsened. He recently had an MRI as outpatient which resulted today, showing early onset osteomyelitis which is reviewed in epic. Allergies Allergy/AdvReac Type Severity Reaction Status Date / Time trazodone AdvReac Hallucinati Verified 02/27/24 15:24 ng Home Medications Medication Instructions Recorded Confirmed Type aspirin 81 mg tablet,delayed 81 mg PO DAILY 05/21/19 02/27/24 History release tamsulosin 0.4 mg capsule 0.4 mg PO AMHS 05/21/19 02/27/24 History multivitamin-ferrous 1 tab PO DAILY 05/22/19 02/27/24 History fumarate-folic acid 18 mg-400 mcg tablet (Centrum Complete) famotidine 20 mg tablet 20 mg PO QAM 03/06/23 02/27/24 History guaifenesin 600 mg tablet, 600 mg PO Q12H PRN Cough 03/06/23 02/27/24 History extended release 12 hr ipratropium bromide 17 2 puff inhalation QID 03/06/23 02/27/24 History mcg/actuation HFA aerosol inhaler (Atrovent HFA) sodium chloride 0.65 % nasal spray 1 spray intranasal UD PRN 03/06/23 02/27/24 History aerosol (Saline Nasal) Congestion fluticasone propionate 50 2 sprays intranasal QAM 09/09/23 02/27/24 History mcg/actuation nasal spray,suspension rosuvastatin 10 mg tablet 10 mg PO HS 09/09/23 02/27/24 History clopidogrel 75 mg tablet 75 mg PO QAM #30 tabs 09/12/23 02/27/24 Rx isosorbide mononitrate 60 mg 60 mg PO QAM #30 tabs 09/12/23 02/27/24 Rx tablet,extended release 24 hr metoprolol succinate 25 mg 25 mg PO QAM #30 tabs 09/12/23 02/27/24 Rx tablet,extended release 24 hr nitroglycerin 0.4 mg sublingual 0.4 mg sublingual Q5M PRN chest 09/12/23 02/27/24 Rx tablet (Nitrostat) pain #30 tabs allopurinol 100 mg tablet 100 mg PO QAM 01/30/24 02/27/24 History torsemide 20 mg tablet 80 mg (4 x 20 mg) PO QAM 30 days 02/07/24 02/27/24 Rx #120 tabs citalopram 20 mg tablet 20 mg PO QAM 02/27/24 02/27/24 History hydralazine 10 mg tablet 10 mg PO AMHS 02/27/24 02/27/24 History mometasone 0.1 % topical ointment 1 applic topical DAILY 02/27/24 02/27/24 History pantoprazole 40 mg tablet,delayed 40 mg PO QAM 02/27/24 02/27/24 History release Past Med/Surg History Problem List Hypoxia (Acute) Severe pulmonary hypertension Elevated troponin (Acute) COVID-19 (Acute) Nocturnal hypoxemia BPH (benign prostatic hyperplasia) Acute on chronic HFrEF (heart failure with reduced ejection fraction) (Acute) Abnormal ankle brachial index Stage III pressure ulcer (Acute) Stage 3b chronic kidney disease (CKD) Cough with hemoptysis NSTEMI (non-ST elevated myocardial infarction) Abnormal EKG (Acute) Bilateral pleural effusion (Acute) Dyspnea on exertion (Acute) Acute respiratory distress (Acute) Respiratory failure (Acute) HFrEF (heart failure with reduced ejection fraction) History of prostate cancer s/p XRT with brachy boost CKD (chronic kidney disease), stage III (Acute) HTN (hypertension) Restrictive lung disease (Acute) 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, coal, workers' (Acute) Medical History Acute on chronic renal failure Elevated troponin I level Chest pain Pulmonary edema Prostate cancer (11/03/14) "Rising PSA to 7.46 Status post ultrasound-guided biopsies revealing adenocarcinoma [place] 4+3, biopsy stage T2c Initiation of hormone suppression prior to prostate seed implant, short course Status post prostate seed implant 02/03/2015 with cesium 131 received 8500 cGy 50 seeds placed Status post completion of IMRT/IGRT 04/28/2015 received 4500 cGy " On 05/26/15 14:44 Shira Goldberg wrote "Rising PSA to 7.46 Status post ultrasound-guided biopsies revealing adenocarcinoma [place] 4+3, biopsy stage T2c Initiation of hormone suppression prior to prostate seed implant Status post prostate seed implant 02/03/2015 with cesium 131 received 8500 cGy 50 seeds placed Status post completion of IMRT/IGRT 04/28/2015 received 4500 cGy " On 05/01/15 12:43 Sandra Marquez wrote "Rising PSA to 7.46 Status post ultrasound-guided biopsies revealing adenocarcinoma [place] 4+3, biopsy stage T2c Initiation of hormone suppression Status post prostate seed implant 02/03/2015 with cesium 131 received 8500 cGy 50 seeds placed Status post completion of IMRT/IGRT 04/28/2015 received 4500 cGy " On 03/17/15 15:55 Sandra Marquez wrote "Rising PSA to 7.46 Status post ultrasound-guided biopsies revealing adenocarcinoma [place] 4+3, biopsy stage T2c Initiation of hormone suppression Status post prostate seed implant 02/03/2015 with cesium 131 received 8500 cGy 50 seeds placed Now for completion of IMRT/IGRT" Surgical History History of appendectomy H/O shoulder surgery Family History Other Heart disease Social History Smoking Status: Never smoker Tobacco Type: Cigarettes Second Hand Exposure: No; Do You Dip or Chew Tobacco: No; Hx Alcohol Use: No Hx Substance Use: No Preferred Language: Estonian Communication Ability: Effective Lard Mixer Required: No Beliefs That Will Affect Care: None marital status: / Current Living Situation: Alone Feels Safe at Home: Yes Safety Concerns: Feels Safe At This Time Assistive Devices: Cane, Denture - Upper, Denture - Lower and Glasses Review of Systems Review of Systems: Constitutional: No fever, sweats or chills Eyes: No diplopia, no worsening or blurred vision ENT: normal hearing, no trouble swallowing Respiratory: + occasional dry cough, no sputum, +dyspnea at rest and on exertion needing 2 L O2 all day now Cardiovascular: No chest pain, tightness or palpitations Abdomen: No pain, nausea, vomiting, diarrhea or constipation Musculoskeletal: No joint pain, calf pain, + worsening BLE swelling Neurologic: No weakness, numbness/tingling, or balance problems Psychiatric: No anxiety or depression Skin: No rash or itch Physical Exam Physical Exam: General: awake, alert, no apparent distress Head: Normocephalic, atraumatic ENT: PERRL, EOMI, no pharyngeal exudate, mucous membranes moist Chest: Clear to auscultation, on 2L via NC with o2 sats in mid 90s at rest, no adventitious breath sounds Cardiac: Regular rate and rhythm, HR in mid 90s at rest, no murmur, no JVD, normal peripheral pulses, good capillary refill Abdominal: NABS x 4 quadrants, soft,+ slightly distended, nontender to palpation, no rebound or guarding Extremities: Normal inspection, trace pitting peripheral edema RLE worse than the LLE, + right lateral foot ulceration, deep, with purulent material, no surrounding erythema, calfs nontender to palpation Psych: Normal mood and affect Neuro: AAO x 3, strength intact bilaterally and rated 5/5, no motor deficits, speech is clear, no peripheral sensory deficits Results & Data Results & Data Vital Signs (Past 12 Hours) Vital Signs Temp Pulse Resp BP Pulse Ox O2 Del Method O2 Flow Rate 02/27/24 14:00 147/89 H 02/27/24 14:00 87 18 95 2 02/27/24 13:30 140/79 02/27/24 13:30 87 17 96 2 02/27/24 13:10 138/89 02/27/24 13:10 91 H 18 94 2 02/27/24 13:00 90 22 96 2 02/27/24 12:31 Nasal Cannula 2 02/27/24 12:30 91 H 24 92 2 02/27/24 12:00 90 17 96 2 02/27/24 11:59 93 H 02/27/24 11:59 86 L Room Air 02/27/24 11:57 92 H 18 96 2 02/27/24 11:55 36.8 C 92 H 18 136/76 96 Nasal Cannula 2 Laboratory Results 02/27/24 02/27/24 Unknown 12:30 WBC 10.60 RBC 3.95 L Hgb 10.7 L Hct 34.2 L MCV 86.6 MCH 27.1 MCHC 31.3 L RDW Std Deviation 47.6 H RDW Coeff of Nehemias 15.1 H Plt Count 374 MPV 9.6 Immature Gran % (Auto) 0.4 Neut % (Auto) 77.2 Lymph % (Auto) 7.2 Real % (Auto) 9.8 Eos % (Auto) 4.6 Baso % (Auto) 0.8 Neut # (Auto) 8.19 H Lymph # (Auto) 0.76 L Real # (Auto) 1.04 H Eos # (Auto) 0.49 Baso # (Auto) 0.08 Immature Gran # (Auto) 0.04 PT 11.8 INR 1.1 APTT 26 PTT Ratio 1.0 Sodium 137 Potassium 3.7 Chloride 93 L Carbon Dioxide 35 H Anion Gap 9 BUN 62 H Creatinine 2.17 H Est Cr Clr Drug Dosing 27.3 Est GFR ( Amer) 30.4 Est GFR (Non-Af Amer) 26.2 BUN/Creatinine Ratio 28.6 H Glucose 126 H Calcium 9.7 Magnesium 2.4 Total Bilirubin 0.5 AST 16 ALT 12 Alkaline Phosphatase 63 Troponin I High Sens 27.4 H B-Natriuretic Peptide 2331 H Total Protein 7.8 Albumin 4.0 Globulin 3.8 Albumin/Globulin Ratio 1.1 Adenovirus (PCR) Not Detected B. pertussis DNA (PCR) Not Detected B.parapertussis DNA PCR Not Detected C. pneumoniae DNA (PCR) Not Detected Coronavirus OC43 (PCR) Not Detected Coronavirus HKU1 (PCR) Not Detected Coronavirus 229E (PCR) Not Detected SARS-CoV-2 (PCR) Not Detected Coronavirus NL63 (PCR) Not Detected Human Metapneumovir PCR Not Detected Influenza Type A (PCR) Not Detected Influenza Type B (PCR) Not Detected M. pneumoniae (PCR) Not Detected Parainfluenza 1 (PCR) Not Detected Parainfluenza 2 (PCR) Not Detected Parainfluenza 3 (PCR) Not Detected Parainfluenza 4 (PCR) Not Detected RSV (PCR) Not Detected Entero/Rhino (PCR) DETECTED A Diagnostic Findings Chest X-Ray 02/27/24 12:13 XR chest 1V portable CLINICAL HISTORY: Dyspnea TECHNIQUE: Single frontal radiograph of the chest was obtained. Comparison: Comparison is made to chest radiograph 02/01/2024 FINDINGS: No lines and tubes are seen. Calcified aortic knob is seen. Prominence and cephalization of the vasculature is seen. Interval enlargement of bilateral pleural effusions. IMPRESSION: 1. Cardiomegaly and mild pulmonary edema. 2. Interval slight worsening of bilateral pleural effusions. ACT 112: Negative or not required by law. Electronically signed by: Javon Gallegos M.D. 02/27/2024 1:11 PM ECG Additional Comments: Reviewed personally Code Status & VTE Plan Code Status Full code-discussed with the patient and his daughter, ROSARIO at bedside Supervising Physician Co-Signing Physician Notes Pt was seen and examined by myself, Nella Drake MD on the day of service. Care was coordinated with Gabi Mc PA-C. 88yoM admitted with concern for CHF exacerbation in setting of enterovirus/rhinovirus infection. He states that he has been using his nightly oxygen around the clock. On exam, sitting at bedisde, oxygen in nares, no acute distress at the time of exam. Breath sounds decreased. CTA chest noting pulmonary nodules suggestive of an underlying process, known pulm HTN, pulmonology consulted, appreciate recs IV Bumex 1mg BID for CHF exacerbation, cardiology consulted, appreciate recs. Otherwise as above. I spent a total [id number] coordinating, documenting, and providing care for this patient excluding time spent in the performance of separately billed services
[2024-02-27 15:07] LABS: Appearance Urine Clear (Clear); Bacteria Urine Automated None Seen (None Seen); Bilirubin Urine Negative (Negative); Blood Urine Negative (Negative); Color Urine Yellow; Epithelial Cell Urine Auto 0-2 /hpf (0-2); Glucose Urine UA 2+ (Negative); Ketones Urine Negative (Negative); Leukocyte Esterase Urine Negative (Negative); Nitrite Urine Negative (Negative); Protein Urine Trace (Negative); RBC Urine Automated 0-2 /hpf (0-2); Specific Gravity Urine 1.017 (1.000-1.030); Urobilinogen Urine Negative (Negative); WBC Urine Automated 0-5 /hpf (0-5); pH Urine 5.5 (4.5-7.5)
[2024-02-27] MEDS ORDERED: VANCOMYCIN HCL 1,750 MG in SODIUM CHLORIDE 0.9% 500 ML IV ONE (15:27)
[2024-02-27] MEDS ORDERED: VANCOMYCIN CONSULT ACTIVE PRN (15:27)
[2024-02-27] MEDS ORDERED: cefTRIAXone SODIUM 1,000 MG/50 ML BAG IV SCH (15:30)
[2024-02-27] MEDS ORDERED: SODIUM CHLORIDE 0.65% NA SOLN 45 ML (OCEAN) PRN (15:31)
[2024-02-27] MEDS ORDERED: NITROGLYCERIN SL 0.4 MG/TAB TAB SL PRN (15:31)
--- NOTE | 2024-02-27 16:44 | CT Scan Report ---
CT chest diagnostic wo con CLINICAL HISTORY: R/o infection TECHNIQUE: Multidetector row helical CT of the chest was performed. Coronal and sagittal reformations were obtained. Automated dose lowering techniques and/or adjustment according to patient size were u tilized for this exam. CT DOSE: 497.15 mGy.cm Comparison: Comparison is made to CT chest 04/04/2023 FINDINGS: Lungs and pleura: Small bilateral pleural effusions are slightly increased from prior exam. Innumerab le pulmonary nodules are again seen. Heart and pericardium: There is cardiomegaly without evidence of pericardial effusion. Vessels: Moderate atherosclerotic changes in the aorta and coronary arteries. Pulmonary trunk measure s 31 mm in diameter. Mediastinum and yudith: Subcentimeter lymph nodes are seen. Chest wall and lower neck: Unremarkable. Abdomen: Unremarkable. Bones: Unremarkable. IMPRESSION: 1. Redemonstration of innumerable pulmonary nodules which are nonspecific but may represent sarcoido sis, pneumonitis, or other chronic infectious/inflammatory process. No superimposed pneumonia is defi nitely seen. 2. Bilateral pleural effusions have slightly increased from prior exam. ACT 112: Negative or not required by law. Electronically signed by: Javon Gallegos M.D. 02/27/2024 4:41 PM
[2024-02-27] MEDS: cefTRIAXone SODIUM 2,000 MG/50 ML BAG IV SCH (16:47)
[2024-02-27] MEDS ORDERED: ONDANSETRON INJ 2 MG/ML 2 ML VIAL IV PRN (16:58)
[2024-02-27] MEDS ORDERED: IPRATROPIUM BROMIDE HFA INHALER INH SCH (17:00)
[2024-02-27] MEDS: BUMETANIDE 1 MG in SYRINGE 0 ML IV SCH (17:33)
--- NOTE | 2024-02-27 17:48 | Electrocardiogram Report ---
Test Reason : Blood Pressure : / mmHG Vent. 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
[2024-02-27 17:53] LABS: Base Excess VBG 10.8 mEq/L; HCO3 VBG 37 mmol/L; Oxygen Saturation VBG < 60.0 %; PCO2 VBG 53 mmHg (38-50); PO2 VBG < 20 mmHg; pH VBG 7.45 (7.36-7.41)
--- NOTE | 2024-02-27 18:14 | Cardiology Consultation ---
Date of Consultation February 27, 2024 Assessment & Plan (1) Acute on chronic HFrEF (heart failure with reduced ejection fraction): (2) Restrictive lung disease: (3) Severe pulmonary hypertension: (4) Stage 3b chronic kidney disease (CKD): (5) Stage III pressure ulcer: Plan Complex 88-year-old male with mixed underlying severe LV dysfunction with chronic systolic heart failure, restrictive lung disease with chronic hypoxia and severe pulmonary hypertension. Patient presents now with increased breathlessness. Mild congestive heart failure present but no significant jugular venous distention. Has responded predominately to increased oxygen supplementation Suspect volume overload not primary culprit Agree with treating underlying infectious process. Blood cultures ordered Will continue IV Bumex as ordered following renal function Will add topical nitrates for further hypertension control Resume prehospital medications Patient will require O2 supplement indefinitely given pulmonary hypertension, underlying pulmonary pathology Cardiology will continue to follow History of Present Illness Reason for Consultation: Dyspnea, acute on chronic systolic and diastolic heart failure Requesting Physician: Dr Drake Attending Physician: Nella Drake MD History of Present Illness Patient is a complex 88-year-old male with underlying issues which include 1. 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 [place] workers pneumoconiosis with restrictive lung disease, severe pulmonary hypertension 4. CKD stage IIIIV 5. Hyperlipidemia on rosuvastatin Patient referred for symptoms of worsening dyspnea "no air". Using oxygen 24 hours a day recently. No overt fevers or chills though nonhealing ulceration of the foot has worsened with the surrounding rubor. No acute weight gain greater than 5 pounds but weight up approximately 2 kg since last admission. Outpatient diuretics not effectively relieving symptoms despite upward titration. No chest pains, tachypalpitations, syncope or near syncope. Appetite fair no bleeding issues Patient feels improved since single dose of IV Bumex but with little urine output. Abdomen less distended Currently wearing oxygen Allergies Allergy/AdvReac Type Severity Reaction Status Date / Time trazodone AdvReac Hallucinati Verified 02/27/24 15:24 ng Home Medications Medication Instructions Recorded Confirmed Type aspirin 81 mg tablet,delayed 81 mg PO DAILY 05/21/19 02/27/24 History release tamsulosin 0.4 mg capsule 0.4 mg PO AMHS 05/21/19 02/27/24 History multivitamin-ferrous 1 tab PO DAILY 05/22/19 02/27/24 History fumarate-folic acid 18 mg-400 mcg tablet (Centrum Complete) famotidine 20 mg tablet 20 mg PO QAM 03/06/23 02/27/24 History guaifenesin 600 mg tablet, 600 mg PO Q12H PRN Cough 03/06/23 02/27/24 History extended release 12 hr ipratropium bromide 17 2 puff inhalation QID 03/06/23 02/27/24 History mcg/actuation HFA aerosol inhaler (Atrovent HFA) sodium chloride 0.65 % nasal spray 1 spray intranasal UD PRN 03/06/23 02/27/24 History aerosol (Saline Nasal) Congestion fluticasone propionate 50 2 sprays intranasal QAM 09/09/23 02/27/24 History mcg/actuation nasal spray,suspension rosuvastatin 10 mg tablet 10 mg PO HS 09/09/23 02/27/24 History clopidogrel 75 mg tablet 75 mg PO QAM #30 tabs 09/12/23 02/27/24 Rx isosorbide mononitrate 60 mg 60 mg PO QAM #30 tabs 09/12/23 02/27/24 Rx tablet,extended release 24 hr metoprolol succinate 25 mg 25 mg PO QAM #30 tabs 09/12/23 02/27/24 Rx tablet,extended release 24 hr nitroglycerin 0.4 mg sublingual 0.4 mg sublingual Q5M PRN chest 09/12/23 02/27/24 Rx tablet (Nitrostat) pain #30 tabs allopurinol 100 mg tablet 100 mg PO QAM 01/30/24 02/27/24 History torsemide 20 mg tablet 80 mg (4 x 20 mg) PO QAM 30 days 02/07/24 02/27/24 Rx #120 tabs citalopram 20 mg tablet 20 mg PO QAM 02/27/24 02/27/24 History hydralazine 10 mg tablet 10 mg PO AMHS 02/27/24 02/27/24 History mometasone 0.1 % topical ointment 1 applic topical DAILY 02/27/24 02/27/24 History pantoprazole 40 mg tablet,delayed 40 mg PO QAM 02/27/24 02/27/24 History release Patient History Medical History Acute on chronic renal failure Elevated troponin I level Chest pain Pulmonary edema Prostate cancer (11/03/14) "Rising PSA to 7.46 Status post ultrasound-guided biopsies revealing adenocarcinoma [place] 4+3, biopsy stage T2c Initiation of hormone suppression prior to prostate seed implant, short course Status post prostate seed implant 02/03/2015 with cesium 131 received 8500 cGy 50 seeds placed Status post completion of IMRT/IGRT 04/28/2015 received 4500 cGy " On 05/26/15 14:44 Shira Goldberg wrote "Rising PSA to 7.46 Status post ultrasound-guided biopsies revealing adenocarcinoma [place] 4+3, biopsy stage T2c Initiation of hormone suppression prior to prostate seed implant Status post prostate seed implant 02/03/2015 with cesium 131 received 8500 cGy 50 seeds placed Status post completion of IMRT/IGRT 04/28/2015 received 4500 cGy " On 05/01/15 12:43 Sandra Marquez wrote "Rising PSA to 7.46 Status post ultrasound-guided biopsies revealing adenocarcinoma [place] 4+3, biopsy stage T2c Initiation of hormone suppression Status post prostate seed implant 02/03/2015 with cesium 131 received 8500 cGy 50 seeds placed Status post completion of IMRT/IGRT 04/28/2015 received 4500 cGy " On 03/17/15 15:55 Sandra Marquez wrote "Rising PSA to 7.46 Status post ultrasound-guided biopsies revealing adenocarcinoma [place] 4+3, biopsy stage T2c Initiation of hormone suppression Status post prostate seed implant 02/03/2015 with cesium 131 received 8500 cGy 50 seeds placed Now for completion of IMRT/IGRT" Surgical History History of appendectomy H/O shoulder surgery Family History Other Heart disease Social History Smoking Status: Never smoker Tobacco Type: Cigarettes Second Hand Exposure: No; Do You Dip or Chew Tobacco: No; Hx Alcohol Use: No Hx Substance Use: No Preferred Language: Micronesian Communication Ability: Effective Stitch Cleaner Required: No Beliefs That Will Affect Care: None marital status: / Current Living Situation: Alone Feels Safe at Home: Yes Assistive Devices: Cane, Oxygen - at Night and Walker Review of Systems Review of Systems: All systems reviewed & are unremarkable except as noted in HPI & below Physical Exam Constitutional: no acute distress Eyes: PERRL, conjunctivae normal, anicteric sclerae ENMT: external ear and nose normal, oropharynx normal Neck: trachea midline, no thyromegaly Respiratory: Auscultation: + diminished lung sounds (Right base) and + rales Cardiovascular: Rate/Rhythm: regular rate and regular rhythm Gastrointestinal (Abdomen): Inspection/Auscultation: + abdomen distended Skin: + ulcer (Nonhealing right foot) and + wo und Neurologic: PERRL, EOMI, accommodation nl, no face palsy, no dysarthria Results & Data Vital Signs (Past 12 Hours) Vital Signs Temp Pulse Resp BP Pulse Ox O2 Del Method O2 Flow Rate 02/27/24 17:30 89 24 94 2 02/27/24 17:30 146/78 H 02/27/24 17:00 89 18 95 2 02/27/24 17:00 146/82 H 02/27/24 16:47 93 H 18 96 2 02/27/24 16:47 152/86 H 02/27/24 16:32 93 H 20 98 2 02/27/24 16:02 89 02/27/24 16:00 158/115 H 02/27/24 16:00 89 22 98 2 02/27/24 15:30 85 17 98 02/27/24 15:30 144/86 H 02/27/24 15:00 93 H 19 96 02/27/24 15:00 145/92 H 02/27/24 14:30 89 18 96 2 02/27/24 14:30 146/84 H 02/27/24 14:28 98 Nasal Cannula 2 02/27/24 14:00 147/89 H 02/27/24 14:00 87 18 95 2 02/27/24 13:30 140/79 02/27/24 13:30 87 17 96 2 02/27/24 13:10 138/89 02/27/24 13:10 91 H 18 94 2 02/27/24 13:00 90 22 96 2 02/27/24 12:31 Nasal Cannula 2 02/27/24 12:30 91 H 24 92 2 02/27/24 12:00 90 17 96 2 02/27/24 11:59 93 H 02/27/24 11:59 86 L Room Air 02/27/24 11:57 92 H 18 96 2 02/27/24 11:55 36.8 C 92 H 18 136/76 96 Nasal Cannula 2 Laboratory Results Laboratory Results - last 24 hr 02/27/24 02/27/24 02/27/24 12:30 14:17 14:26 WBC 10.60 RBC 3.95 L Hgb 10.7 L Hct 34.2 L MCV 86.6 MCH 27.1 MCHC 31.3 L RDW Std Deviation 47.6 H RDW Coeff of Nehemias 15.1 H Plt Count 374 MPV 9.6 Immature Gran % (Auto) 0.4 Neut % (Auto) 77.2 Lymph % (Auto) 7.2 Winn % (Auto) 9.8 Eos % (Auto) 4.6 Baso % (Auto) 0.8 Neut # (Auto) 8.19 H Lymph # (Auto) 0.76 L Winn # (Auto) 1.04 H Eos # (Auto) 0.49 Baso # (Auto) 0.08 Immature Gran # (Auto) 0.04 PT 11.8 INR 1.1 APTT 26 PTT Ratio 1.0 VBG pH VBG pCO2 VBG pO2 VBG HCO3 VBG O2 Saturation VBG Base Excess Sodium 137 Potassium 3.7 Chloride 93 L Carbon Dioxide 35 H Anion Gap 9 BUN 62 H Creatinine 2.17 H Est Cr Clr Drug Dosing 27.3 Est GFR ( Amer) 30.4 Est GFR (Non-Af Amer) 26.2 BUN/Creatinine Ratio 28.6 H Glucose 126 H Calcium 9.7 Magnesium 2.4 Total Bilirubin 0.5 AST 16 ALT 12 Alkaline Phosphatase 63 Troponin I High Sens 27.4 H 31.8 H B-Natriuretic Peptide 2331 H Total Protein 7.8 Albumin 4.0 Globulin 3.8 Albumin/Globulin Ratio 1.1 Urine Color Yellow Urine Appearance Clear Urine pH 5.5 Ur Specific [place] 1.017 Urine Protein Trace H Urine Glucose (UA) 2+ H Urine Ketones Negative Urine Blood Negative Urine Nitrite Negative Urine Bilirubin Negative Urine Urobilinogen Negative Ur Leukocyte Esterase Negative Urine WBC (Auto) 0-5 Urine RBC (Auto) 0-2 U Hyaline Cast (Auto) 3-5 H U Epithel Cells (Auto) 0-2 Urine Bacteria (Auto) None Seen Nasal Screen MRSA (PCR) Adenovirus (PCR) B. pertussis DNA (PCR) B.parapertussis DNA PCR C. pneumoniae DNA (PCR) Coronavirus OC43 (PCR) Coronavirus HKU1 (PCR) Coronavirus 229E (PCR) SARS-CoV-2 (PCR) Coronavirus NL63 (PCR) Human Metapneumovir PCR Influenza Type A (PCR) Influenza Type B (PCR) M. pneumoniae (PCR) Parainfluenza 1 (PCR) Parainfluenza 2 (PCR) Parainfluenza 3 (PCR) Parainfluenza 4 (PCR) RSV (PCR) Entero/Rhino (PCR) 02/27/24 02/27/24 02/27/24 15:20 17:43 Unknown WBC RBC Hgb Hct MCV MCH MCHC RDW Std Deviation RDW Coeff of Nehemias Plt Count MPV Immature Gran % (Auto) Neut % (Auto) Lymph % (Auto) Winn % (Auto) Eos % (Auto) Baso % (Auto) Neut # (Auto) Lymph # (Auto) Winn # (Auto) Eos # (Auto) Baso # (Auto) Immature Gran # (Auto) PT INR APTT PTT Ratio VBG pH 7.45 H VBG pCO2 53 H VBG pO2 < 20 VBG HCO3 37 VBG O2 Saturation < 60.0 VBG Base Excess 10.8 Sodium Potassium Chloride Carbon Dioxide Anion Gap BUN Creatinine Est Cr Clr Drug Dosing Est GFR ( Amer) Est GFR (Non-Af Amer) BUN/Creatinine Ratio Glucose Calcium Magnesium Total Bilirubin AST ALT Alkaline Phosphatase Troponin I High Sens B-Natriuretic Peptide Total Protein Albumin Globulin Albumin/Globulin Ratio Urine Color Urine Appearance Urine pH Ur Specific [place] Urine Protein Urine Glucose (UA) Urine Ketones Urine Blood Urine Nitrite Urine Bilirubin Urine Urobilinogen Ur Leukocyte Esterase Urine WBC (Auto) Urine RBC (Auto) U Hyaline Cast (Auto) U Epithel Cells (Auto) Urine Bacteria (Auto) Nasal Screen MRSA (PCR) Negative Adenovirus (PCR) Not Detected B. pertussis DNA (PCR) Not Detected B.parapertussis DNA PCR Not Detected C. pneumoniae DNA (PCR) Not Detected Coronavirus OC43 (PCR) Not Detected Coronavirus HKU1 (PCR) Not Detected Coronavirus 229E (PCR) Not Detected SARS-CoV-2 (PCR) Not Detected Coronavirus NL63 (PCR) Not Detected Human Metapneumovir PCR Not Detected Influenza Type A (PCR) Not Detected Influenza Type B (PCR) Not Detected M. 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
[2024-02-27] MEDS: METOPROLOL TARTRATE 25 MG TAB PO ONE (18:24)
[2024-02-27] MEDS: IPRATROPIUM BROMIDE HFA INHALER INH SCH (19:43)
[2024-02-27] MEDS: VANCOMYCIN HCL 2,000 MG in SODIUM CHLORIDE 0.9% 500 ML IV STA (19:51)
[2024-02-27] MEDS: POTASSIUM CHLORIDE CRTAB 20 MEQ TABCR PO ONE (20:00)
[2024-02-27] MEDS: NITROGLYCERIN 2% OINTMENT 30GM TUBE EXT SCH (20:48)
[2024-02-27] MEDS: METOPROLOL SUCC 25MG EXT REL TAB PO SCH (20:53)
[2024-02-27] MEDS: ROSUVASTATIN CALCIUM 10 MG TAB PO SCH (20:54)
[2024-02-27] MEDS: TAMSULOSIN HCL 0.4 MG CAP PO SCH (20:54)
[2024-02-27] MEDS: hydrALAZINE 10 MG TAB PO SCH (20:54)
[2024-02-27] MEDS: BUMETANIDE 0.5 MG in SYRINGE 0 ML IV ONE (23:08)
--- OUTSIDE RECORDS SUMMARY | 2024-02-27 23:47 | External Medical Summary | Summary of Care ---
Author Name Unknown Organization [facility] Address [address] [place] [address] Phone [phone] Care Team Providers Care Pusher Operator Name Role Phone Claude Mata MD Primary Care Provide r Reason for Visit * Reason Comments Outpatient Testing Encounter Details Date Type Department Care Team (Late st Contact Info) Description 02/27/2024 8:10 AM EDT Laboratory Laboratory [address] [place] [phone] [facility] [address] [place] [address] Hypokalemia; Hyponatremia; Chronic kidney disease, stage 3b (HCC) Allergies Active Allergy Reactions Criticality Noted Date Comments Trazodone Other (Please comment) High 10/05/2023 Hallucinations documented as of this encounter (statuses as of 02/27/2024) Medications Medication Sig Dispensed Refills Start Date End Date Status ASPIRIN 81 MG PO TABS one tab by mouth daily 0 0 12/11/2006 Active CENTRUM PO TABS 1 tablet a day Activ e oxygen IN GAS Use 2 L/min(Oxygen) as directed at bedtime. Active Vitamin B-12 100 MCG Oral Tablet (vitamin B-12) Take 1 Tablet by mouth in the morning. Active Saline [place] 0.65 % Nasal Solution ([place]) Administer into nostril 1 [place] as needed for Congestion. 60 mL 5 04/08/2022 Active Fluticasone Propionate 50 MCG/ACT Nasal Suspension (Flonase) Administer 2 Sprays into nostril in the morning. Active Flutter Device Provided at visit 1 Each 08/09/2022 Active Nitroglycerin 0.4 MG Sublingual Tablet Sublingual (Nitrostat) Place 1 Tablet under the tongue every 5 minutes as needed for Pain, Chest. 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 90 Tablet 3 10/12/2023 Active Atrovent HFA 17 MCG/ACT Inhalation Aerosol Solution (ipratropium)Indicat ions:[place] workers pneumoconiosis (HCC) Inhale 2 Puffs by mouth in the morning and 2 Puffs at noon and 2 Puffs in the evening and 2 Puffs before bedtime. 38.7 g 1 10/25/2023 Active guaiFENesin ER 600 MG Oral Tablet Extended Release 12 Hour (Mucinex) Take 1 Tablet by mouth every 12 hours as needed for Cough or Congestion. Active Torsemide 100 MG Oral Tablet (Demadex)Indications :HFrEF (heart failure with reduced ejection fraction) (HCC) Alternate 50 mg, with 100 mg, daily. Take 50 mg every other day - starting 11/18/23, and take 100 mg every other day - starting 11/19/23. 70 Tablet 1 11/14/2023 Active Additional Information Patient taking differently: 80 mg Oral Daily(AM), (No instructions reported), Informant: At Discharge, Reported on 02/09/2024 Pantoprazole Sodium 40 MG Oral Tablet Delayed Release (Protonix) Take 1 Tablet by mouth in the morning. 90 Tablet 3 12/14/2023 Active Citalopram Hydrobromide 20 MG Oral Tablet (CeleXA)Indications: SOLEDAD (generalized anxiety disorder) Take 1 Tablet by mouth in the morning. 30 Tablet 5 01/10/2024 Active hydrALAZINE HCl 10 MG Oral Tablet (Apresoline) Take 1 Tablet by mouth in the morning and 1 Tablet before bedtime. 02/07/2024 Active Mometasone Furoate 0.1 % External OintmentIndications: Rash Apply topically to affected area daily. 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 failure and stage 3b chronic kidney disease 06/12/2023 Chronic systolic heart failure 04/10/2023 Interstitial pulmonary disease 04/10/2023 Medical home patient encounter 03/15/2023 Nocturnal hypoxemia 04/08/2022 Overview: Wears 2 LPM via [place], DME: [facility] Chronic rhinitis 04/08/2022 Lung nodules [...] as of this encounter (statuses as of 02/27/2024) Resolved Problems Problem Noted Date Diagnosed Date [...] Rotator cuff rupture 05/22/2003 018 LOC PRIM [id number] 05/22/200310/02 Prepatellar bursitis 05/22/2003 015 Inflammation of sacroiliac joint 10/12/2001 10/16/2014 LOC PRIM OSTEOARTH-HAND 10/12/200110/02 Respiratory abnormality 07/04 Overview: ICD-10 update of inactive term Umbilical hernia 05/10/2018 Insomnia 10/16/2014 Overview: ICD-10 update of inactive term COPD, severity to be determined 07/07/2011 Allergic rhinitis 05/10/2018 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 NOS-BRACER 07/04 Bilateral carpal tunnel syndrome 05/10/2018 CKD (chronic kidney disease), stage III 12/11/2018 Benign hypertension with CKD (chronic kidney disease) stage III 02/11/2021 Overview: Per CKD protocol documented as of this encounter (statuses as of 02/27/2024) Immunizations Name Administration Dates Next Due COVID-19 [...] Care Team (Late st Contact Info) Description 02/27/2024 2:30 PM EDT Telemedicine [facility], [facility] [address] [place] [address] [address] Sylvie Crawford CRNP [address] [place] [id number] Mara Crystal, Community [address] [place] [address] 02/28/2024 9:30 AM EDT Scheduled Telephone [facility], [facility] [address] [address] Coordinator, [facility] [address] [address] 03/05/2024 9:15 AM EDT Cardiac Studies Cardiac Studies, [facility] [address] [address] 03/21/2024 5:30 PM EDT Home Visit [facility], [facility] [address] [address] Ingris Madden, ARTURO [address] [place] [address] 04/23/2024 11:00 AM EDT Office Visit Cardiology, [facility] [address] [address] Luh Garcia CRNP [address] [place] [address] 07/10/2024 2:40 PM EDT Office Visit Family Medicine [address] [place] [phone] Claude Mata MD [address] [place] [address] [place] [address] 07/15/2024 10:00 AM EDT Nurse Only Ancillary [address] [place] [address] [place], Nurse Annual Wellness [address] [place] [address] [place] [address] 10/01/2024 3:20 PM EST Office Visit Nephrology [address] [place] [address] [facility] [address] [facility] [address] 12/02/2024 2:20 PM EST Office Visit Dermatology [address] [place] [address] Dalila West PA-C [address] [place] [address] [place] [id number] Pending Results Name Type Priority Associated Diagnoses Date /Time BASIC METABOLIC PANEL Lab Routine Hypokalemia Hyponatremia Chronic kidney disease, stage 3b (HCC) 02/27/2024 8:12 AM EDT Health Maintenance Due Date Last Done Comments COVID-19 Vaccine ( season) 2023 01/07/2022, 12/31/2020, 12/03/2020 DTaP,Tdap,and Td Vaccines (2 - Td or Tdap) 10/14/2023 10/14/2013, 07/22/2008 Depression Screening 07/12/2024 07/12/2023 Albumin/Creatinine Ratio 10/05/2024 024, 02/14/2023, 04/07/2022, Additional history exists CKD PHOS USE SMARTSET [id number] 10/05/2024/0 01/2024, 05/12/2022, 10/05/2020, Additional history exists CKD HGB USE SMARTSET [id number] 02/22/202502/22, 02/23/2024, 02/13/2024, Additional history exists Pneumococcal Vaccine: 65+ Years [...] as of this encounter Visit Diagnoses Diagnosis Hypokalemia Hypopotassemia Hyponatremia Hyposmolality and/or hyponatremia Chronic kidney disease, stage 3b (HCC) documented in this encounter Advance Directives * Full Code (Latest Code Status on File) Date Activated Date Inactivated Comments 06/26/2019 12:28 PM 06/26/2019 5:13 PM This order reflects the patients wishes and were consensually agreed upon. Healthcare Agents on File Name Relationship Healthcare Agent Relationshi p Communication Susu Quezada Adult Child Health Care Repr esentative (appointed verbally by patient or by statute hierarchy) Care Teams Pusher Operator Relationship Specialty Start Date End Date Claude Mata MD [address] [place] [address] [place] [phone] PCP - General Family Medicine 11/13/23 documented as of this encounter
--- OUTSIDE RECORDS SUMMARY | 2024-02-27 23:47 | External Medical Summary | Summary of Care ---
Author Name Unknown Organization [facility] Address [address] [place] [address] Phone [phone] Care Team Providers Care Director Machine Name Role Phone Claude Mata MD Primary Care Provide r Encounter Details Date Type Department Care Team (Late st Contact Info) Description 02/23/2024 Orders Only Laboratory [address] [place] [phone] Tuan Mercer, CHRIS [address] [place] [id number] Hypokalemia*; Hyponatremia; Chronic kidney disease, stage 3b (HCC) Allergies Active Allergy Reactions Criticality Noted Date Comments Trazodone Other (Please comment) High 10/05/2023 Hallucinations documented as of this encounter (statuses as of 02/23/2024) Medications Medication Sig Dispensed Refills Start Date End Date Status ASPIRIN 81 MG PO TABS one tab by mouth daily 0 0 12/11/2006 Active CENTRUM PO TABS 1 tablet a day Activ e oxygen IN GAS Use 2 L/min(Oxygen) as directed at bedtime. Active Vitamin B-12 100 MCG Oral Tablet (vitamin B-12) Take 1 Tablet by mouth in the morning. Active Saline [place] 0.65 % Nasal Solution ([place]) Administer into nostril 1 [place] as needed for Congestion. 60 mL 5 [...] chronic kidney disease (HCC),Coronary artery disease involving [place] coronary artery of [place]gr[place] heart without angina pectoris Take 1 Tablet [...] HFA 17 MCG/ACT Inhalation Aerosol Solution (ipratropium)Indicat ions:Trigg workers pneumoconiosis (HCC) Inhale 2 Puffs by [...] and itchy areas 135 g 02/14/2024 Active DIURETIC TITRATION PLAN Take 80 mg by mouth 2 times a day as needed (As instructed as part of a DTP by a provider) for up to 3 days. If no improvement on day 3, contact heart failure managing provider. 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 GENERAL OSTEOARTHROSIS INSOMNIA W SLEEP APNEA Trigg workers pneumoconiosis Restrictive lung disease documented as of this encounter (statuses as of 02/23/2024) Resolved Problems Problem Noted Date Diagnosed Date [...] Rotator cuff rupture 05/22/2003 018 LOC PRIM [id number] 05/22/200310/02 Prepatellar bursitis 05/22/2003 015 Inflammation of sacroiliac joint 10/12/2001 10/16/2014 LOC PRIM OSTEOARTH-HAND 10/12/200110/02 Respiratory abnormality 07/04 Overview: ICD-10 update of inactive term Umbilical hernia 05/10/2018 Insomnia 10/16/2014 Overview: ICD-10 update of inactive term COPD, severity to be determined 07/07/2011 Allergic rhinitis 05/10/2018 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 NOS-AGRICULTURAL LABOR CAMP MANAGER 07/04 Bilateral carpal tunnel syndrome 05/10/2018 CKD (chronic kidney disease), stage III 12/11/2018 Benign hypertension with CKD (chronic kidney disease) stage III 02/11/2021 Overview: Per CKD protocol documented as of this encounter (statuses as of 02/23/2024) Immunizations Name Administration Dates Next Due COVID-19 [...] Care Team (Late st Contact Info) Description 02/24/2024 9:30 AM EDT Scheduled Telephone [facility], [address] [place] [address] [facility] Nurse [place] [address] [address] [place] [address] 02/25/2024 8:30 AM EDT Scheduled Telephone [facility], [place] [address] [place] [address] [facility] Nurse [address] [place] [address] 02/27/2024 2:30 PM EDT Telemedicine [facility], [facility] [address] [place] [address] Sylvie Crawford CRNP [address] [place] [address] Mara Crystal, Community [facility] Gas Refrigerator Servicer [address] [place] [address] [place] [address] 03/05/2024 9:15 AM EDT Cardiac Studies Cardiac Studies, [facility] [address] [place] [address] 03/21/2024 5:30 PM EDT Home Visit [facility], [facility] [address] [place] [address] Ingris Madden RN [facility] [place] [address] 04/23/2024 11:00 AM EDT Office Visit Cardiology, [facility] [address] [place] [address] Luh Garcia CRNP [address] [place] [address] 07/10/2024 2:40 PM EDT Office Visit Family Medicine [address] [place] [phone] Claude Mata MD [address] [place] [address] [place] [address] 07/15/2024 10:00 AM EDT Nurse Only Ancillary [address] [place] [address] [place], Nurse [address] [place] [address] 10/01/2024 3:20 PM EST Office Visit Nephrology [address] [place] [address] [facility] [address] 12/02/2024 2:20 PM EST Office Visit Dermatology [address] [place] [address] Dalila West PA-C [address] [place] [address] [place] [phone] Scheduled Orders Name Type Priority Associated Diagnoses Orde r Schedule BASIC METABOLIC PANEL Lab Routine Hypokalemia Hyponatremia Chronic kidney disease, stage 3b (HCC) Expected: 02/27/2024, Expires: 02/22/2025 Health Maintenance Due Date Last Done Comments COVID-19 Vaccine ( season) 2023 01/07/2022, 12/31/2020, 12/03/2020 DTaP,Tdap,and Td Vaccines (2 - Td or Tdap) 10/14/2023 10/14/2013, 07/22/2008 Depression Screening 07/12/2024 07/12/2023 Albumin/Creatinine Ratio 10/05/2024 024, 02/14/2023, 04/07/2022, Additional history exists CKD PHOS USE SMARTSET 61724 10/05/2024/0 01/2024, 05/12/2022, 10/05/2020, Additional history exists CKD HGB USE SMARTSET 74866 02/22/202502/22, 02/23/2024, 02/13/2024, Additional history exists Pneumococcal [...] as of this encounter Visit Diagnoses Diagnosis Hypokalemia- Primary Hypopotassemia Hyponatremia Hyposmolality and/or hyponatremia Chronic kidney [...] or by statute hierarchy) Care Teams Director Machine Relationship Specialty Start Date End Date Claude Mata MD [address] [place] [address] [place] [address] PCP - General Family Medicine 11/13/23 documented as of this encounter
--- OUTSIDE RECORDS SUMMARY | 2024-02-27 23:47 | External Medical Summary | Summary of Care ---
Author Name Unknown Organization [facility] Address [address] [place] [address] Phone [phone] Care Team Providers Care Ad Terminal Makeup Operator Name Role Phone Claude Mata MD Primary Care Provide r Reason for Visit * Reason Onset Date Comments [facility]: Maintenance 02/24/2024 Encounter Details Date Type Department Care Team (Late st Contact Info) Description 02/24/2024 9:30 AM EDT Scheduled Telephone [facility], [facility] [address] [place] [address] [facility], Nurse [facility] [address] [place] [address] Allergies Active Allergy Reactions Criticality Noted Date Comments Trazodone Other (Please comment) High 10/05/2023 Hallucinations documented as of this encounter (statuses as of 02/24/2024) Medications Medication Sig Dispensed Refills Start Date End Date Status ASPIRIN 81 MG PO TABS one tab by mouth daily 0 0 12/11/2006 Active CENTRUM PO TABS 1 tablet a day Activ e oxygen IN GAS Use 2 L/min(Oxygen) as directed at bedtime. Active Vitamin B-12 100 MCG Oral Tablet (vitamin B-12) Take 1 Tablet by mouth in the morning. Active Saline [place] 0.65 % Nasal Solution ([place]) Administer into nostril 1 [place] as needed for Congestion. 60 mL 5 [...] chronic kidney disease (HCC),Coronary artery disease involving [place] coronary artery of [place] heart without angina pectoris Take 1 Tablet [...] HFA 17 MCG/ACT Inhalation Aerosol Solution (ipratropium)Indicat ions:[place] workers pneumoconiosis (HCC) Inhale 2 Puffs by [...] as of this encounter (statuses as of 02/24/2024) Active Problems Problem Noted Date Diagnosed Date SOLEDAD (generalized anxiety disorder) 12/01/2023 Coronary artery disease invo lving [place] coronary artery of [place] heart without angina pectoris 12/01/2023 Pulmonary hypertension, unspecified 10/07/2023 HFrEF (heart failure with reduced ejection fract ion) 09/19/2023 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 GENERAL OSTEOARTHROSIS INSOMNIA W SLEEP APNEA [place]offat workers pneumoconiosis Restrictive lung disease documented as of this encounter (statuses as of 02/24/2024) Resolved Problems Problem Noted Date Diagnosed Date [...] Rotator cuff rupture 05/22/2003 018 LOC PRIM [id number] 05/22/200310/02 Prepatellar bursitis 05/22/2003 015 Inflammation of sacroiliac joint 10/12/2001 10/16/2014 LOC PRIM OSTEOARTH-HAND 10/12/200110/02 Respiratory abnormality 07/04 Overview: ICD-10 update of inactive term Umbilical hernia 05/10/2018 Insomnia 10/16/2014 Overview: ICD-10 update of inactive term COPD, severity to be determined 07/07/2011 Allergic rhinitis 05/10/2018 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 NOS-BRAKESHOE REPAIRER 07/04 Bilateral carpal tunnel syndrome 05/10/2018 CKD (chronic kidney disease), stage III 12/11/2018 Benign hypertension with CKD (chronic kidney disease) stage III 02/11/2021 Overview: Per CKD protocol documented as of this encounter (statuses as of 02/24/2024) Immunizations Name Administration Dates Next Due COVID-19 [...] encounter Miscellaneous Notes * Telephone Encounter - Mercy Grimm RN - 02/24/2024 9:23 AM EDT Images from the original note were not included. [facility] Telephonic Nurse Follow-Up Call [facility] Subprogram: Focused Care Management (3-9 months) Follow Up Call Type: Weekend Call Acute issue requiring follow-up call: Other: Follow up post IV lasix x 2 days Objective: 02/23/2024 3:19 PM 02/23/2024 2:42 PM 02/22/2024 2:51 PM 02/13/2024 1:47 PM 02/10/2024 10:58 AM VITALS ACROSS ENCOUNTERS BP 138/68 120/68 116/56 134/64 Arterial Blood Pressure1 (ABP) 138/68 Pulse 66 68 67 75 Weight 78.7 kg 78.9 kg 81.2 kg 76.2 kg BMI 22.11 kg/m2 22.19 kg/m2 22.83 kg/m2 21.41 kg/m2 Remote Patient Monitoring: [facility] Scale: Oxygen Needs: NO CHANGE from baseline supplemental oxygen needs DME Needs: NO DME needs identified Medications: No medication or dose adjustments made during acute episode DTP completed on Subjective: Condition Status: Improvement in symptoms but not at baseline Current Concerns: Patient seen by [facility] RNCM on 02/22/24 and received IV Lasix 100 mg and seen again on 02/23/24 and got another IV Lasix 100 mg, was taking his DTP for Aabs-Ahl-Iyfdcaiu and is currently taking Torsemide 80 mg in AM. Weight down 0.5 lbs since yesterday, breathing isslightly improved but still wears oxygen at 2lpm as any type of exertion he gets SOB, denies any wheezing, no fever/chills, abdomen slightly decreased, legs the same but right foot remains swollen, fo llows with wound care clinic in [employer]. Compliant with all of his medications, follows a NASdiet, follows fluid restrictions. SPO2 is 97% on 2lpm, HR 73 Disposition: Routed to [facility] and/or [facility] at Home Care Team for further advice and Follow up call scheduled for tomorrow with HEEL DIPPER Noodle Catalyst Maker Future Visits Scheduled: Future Appointments-next 60 days Date/Time Provider Specialty Dept Phone 02/24/2024 9:[address] [facility], Nurse [facility] [phone] 02/25/2024 8:30 AM [facility] Nurse [facility] [phone] 02/27/2024 2:30 PM Mara Crystal, Community Health General Farm Manager; Sylvie Crawford CRNP [facility] [phone] 03/05/2024 9:15 AM PROJECT SPECIALIST 2 GW Cardiac Studies [phone] 03/21/2024 5:30 PM Ingris Madden, ARTURO [facility] [phone] 04/23/2024 11:00 AM (Arrive by 10:45 AM) Luh Garcia CRNP Cardiology [phone] 07/10/2024 2:40 PM (Arrive by 2:25 PM) Claude Mata MD Family Medicine [phone] 07/15/2024 10:00 AM Nurse Rubina [facility] Ancillary [phone] 10/01/2024 3:20 PM (Arrive by 3:05 PM) Cande Soni MD Nephrology [phone] 12/02/2024 2:20 PM (Arrive by 2:05 PM) Dalila West PA-C Dermatology [phone] [facility] Grimm RN documented in this encounter Plan of Treatment Upcoming Encounters Date Type Department Care Team (Late st Contact Info) Description 02/25/2024 8:30 AM EDT Scheduled Telephone [facility] [place], [facility] [address] [facility] [place] [address] [facility], Nurse [facility] [address] [facility] [place] [address] 02/27/2024 2:30 PM EDT Telemedicine [facility], [facility] 132 [facility] [place] [address] Sylvie Crawford CRNP 132 [facility] [place] [address] Mara Crystal, [facility] General Farm Manager [address] [place] [address] [place] [address] 03/05/2024 9:15 AM EDT Cardiac Studies Cardiac Studies, [facility] [address] [facility] [place] [address] 03/21/2024 5:30 PM EDT Home Visit [facility], [facility] [address] [facility] [place] [address] Ingris Madden RN [address] [facility] [place] [address] 04/23/2024 11:00 AM EDT Office Visit Cardiology, [facility] [address] [facility] [place] [address] Luh Garcia CRNP [address] [facility] [place] [address] 07/10/2024 2:40 PM EDT Office Visit Family Medicine [address] [place] [phone] Claude Mata MD [address] [place] [address] [place] [address] 07/15/2024 10:00 AM EDT Nurse Only Ancillary [address] [place] [address] Rubina, Nurse Annual [address] [place] [address] 10/01/2024 3:20 PM EST Office Visit Nephrology [address] [place] [address] Cande Soni MD [address] [facility] [place] [employer] [address] 12/02/2024 2:20 PM EST Office Visit Dermatology [address] [place] [address] Dalila West PA-C [address] [place] [address] [place] [address] Health Maintenance Due Date Last Done Comments COVID-19 Vaccine (2022- season) 2023 01/07/2022, 12/31/2020, 12/03/2020 DTaP,Tdap,and Td Vaccines (2 - Td or Tdap) 10/14/2023 10/14/2013, 07/22/2008 Depression Screening 07/12/2024 07/12/2023 Albumin/Creatinine Ratio 10/05/2024 024, 02/14/2023, 04/07/2022, Additional history exists CKD PHOS USE SMARTSET 39095 10/05/202401/2024, 05/12/2022, 10/05/2020, Additional history exists CKD HGB USE SMARTSET 32818 02/22/202502/22, 02/23/2024, 02/13/2024, Additional history exists Pneumococcal [...] filedocumented as of this encounter Advance Directives * Full Code (Latest Code Status on File) Date Activated Date Inactivated Comments 06/26/2019 12:28 PM 06/26/2019 5:13 PM This order reflects the patients wishes and were consensually agreed upon. Healthcare Agents on File Name Relationship Healthcare Agent Relationshi p Communication Susu Quezada Adult Child Health Care Repr esentative (appointed verbally by patient or by statute hierarchy) Care Teams Ad Terminal Makeup Operator Relationship Specialty Start Date End Date Claude Mata MD [address] [place] [address] [place] [address] PCP - General Family Medicine 11/13/23 documented as of this encounter
--- OUTSIDE RECORDS SUMMARY | 2024-02-27 23:47 | External Medical Summary | Summary of Care ---
Author Name Unknown Organization [facility] Address [address] [place] [address] Phone [phone] Care Team Providers Care Able Bodied Seaman Name Role Phone Claude Mata MD Primary Care Provide r Reason for Visit * Reason Onset Date Comments [facility]: Maintenance 02/25/2024 Encounter Details Date Type Department Care Team (Late st Contact Info) Description 02/25/2024 8:30 AM EDT Scheduled Telephone [facility], [facility] [address] [place] [address] [facility], Nurse [facility] [address] [place] [address] Allergies Active Allergy Reactions Criticality Noted Date Comments Trazodone Other (Please comment) High 10/05/2023 Hallucinations documented as of this encounter (statuses as of 02/25/2024) Medications Medication Sig Dispensed Refills Start Date End Date Status ASPIRIN 81 MG PO TABS one tab by mouth daily 0 0 12/11/2006 Active CENTRUM PO TABS 1 tablet a day Activ e oxygen IN GAS Use 2 L/min(Oxygen) as directed at bedtime. Active Vitamin B-12 100 MCG Oral Tablet (vitamin B-12) Take 1 Tablet by mouth in the morning. Active Saline [place] 0.65 % Nasal Solution ([place]) Administer into nostril 1 [place] as needed for Congestion. 60 mL 5 [...] chronic kidney disease (HCC),Coronary artery disease involving redding coronary artery of redding heart without angina pectoris Take 1 Tablet [...] HFA 17 MCG/ACT Inhalation Aerosol Solution (ipratropium)Indicat ions:[place] workers pneumoconiosis (HCC) Inhale 2 Puffs by [...] as of this encounter (statuses as of 02/25/2024) Active Problems Problem Noted Date Diagnosed Date SOLEDAD (generalized anxiety disorder) 12/01/2023 Coronary artery disease invo lving redding coronary artery of redding heart without angina pectoris 12/01/2023 Pulmonary hypertension, unspecified 10/07/2023 HFrEF (heart failure with reduced ejection fract ion) 09/19/2023 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 GENERAL OSTEOARTHROSIS INSOMNIA W SLEEP APNEA [place] workers pneumoconiosis Restrictive lung disease documented as of this encounter (statuses as of 02/25/2024) Resolved Problems Problem Noted Date Diagnosed Date [...] Rotator cuff rupture 05/22/2003 018 LOC PRIM [id number] 05/22/200310/02 Prepatellar bursitis 05/22/2003 015 Inflammation of sacroiliac joint 10/12/2001 10/16/2014 LOC PRIM OSTEOARTH-HAND 10/12/200110/02 Respiratory abnormality 07/04 Overview: ICD-10 update of inactive term Umbilical hernia 05/10/2018 Insomnia 10/16/2014 Overview: ICD-10 update of inactive term COPD, severity to be determined 07/07/2011 Allergic rhinitis 05/10/2018 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 [facility] Telephonic Nurse Follow-Up Call [facility] Subprogram: Focused Care Management (3-9 months) Follow Up Call Type: Weekend Call Acute issue requiring follow-up call: Heart Failure Exacerbation Objective: 02/23/2024 3:19 PM 02/23/2024 2:42 PM 02/22/2024 2:51 PM 02/13/2024 1:47 PM 02/10/2024 10:58 AM VITALS ACROSS ENCOUNTERS BP 138/68 120/68 116/56 134/64 Arterial Blood Pressure1 (ABP) 138/68 Pulse 66 68 67 75 Weight 78.7 kg 78.9 kg 81.2 kg 76.2 kg BMI 22.11 kg/m2 22.19 kg/m2 22.83 kg/m2 21.41 kg/m2 Remote Patient Monitoring: AMC Scale: see below Oxygen Needs: NO CHANGE from baseline supplemental oxygen needs DME Needs: NO DME needs identified Medications: No medication or dose adjustments made during acute episode Subjective: Condition Status: Improvement in symptoms but not at baseline Current Concerns: Patient seen by [facility] RNCM on 02/22/24 and received IV Lasix 100 mg and seen again on 02/23/24 and got another IV Lasix 100 mg, was taking his DTP for Ftpi-Pmg-Naakirdo and is currently taking Torsemide 80 mg in AM. Pulse ox 91% on room air at time of call with HR of 91/min. States that when he was wearing his oxygen it was 97%, but he was feeling better so he took it off for awhile. Denies feeling dizzy/lightheaded. Decreased LE swelling, but still with abdominal bloating. Feels improvement, but still not back to baseline. Wt down slightly from yesterday. 172.7 lbs today. ?dry wt. Will follow closely. Reinforced HF education. Pt states that he is trying to comply with recommendations. Education: Reviewed HF symptom monitoring: -Weigh self daily in am, post-void and record -Do not add salt to food, avoid foods high in sodium -Limit fluids to 2 liters per day -Report the following: ->2 lb weight gain in one day or 5 lbs in a week to PCP -increased edema in feet, abdomen or hands -increased SOB and cough, especially if at night -increased fatigue or vertigo Disposition: Weekend call scheduled Future Visits Scheduled: Future Appointments-next 60 days Date/Time Provider Specialty Dept Phone 02/27/2024 2:30 PM Mara Crystal, [facility] [employer] Worm Grower; Sylvie Crawford CRNP [facility] [phone] 03/05/2024 9:15 AM BOX BRANDER 2 GW Cardiac Studies [phone] 03/21/2024 5:30 PM Ingris Madden, ARTURO [facility] [phone] 04/23/2024 11:00 AM (Arrive by 10:45 AM) Luh Garcia CRNP Cardiology [phone] 07/10/2024 2:40 PM (Arrive by 2:25 PM) Claude Mata MD Family Medicine [phone] 07/15/2024 10:00 AM Nurse Rubina [facility] Ancillary [phone] 10/01/2024 3:20 PM (Arrive by 3:05 PM) Cande Soni MD Nephrology [phone] 12/02/2024 2:20 PM (Arrive by 2:05 PM) Dalila West PA-C Dermatology [phone] Sade Park RN documented in this encounter Plan of Treatment Upcoming Encounters Date Type Department Care Team (Late st Contact Info) Description 02/26/2024 8:30 AM EDT Scheduled Telephone [facility], [facility] 132 [facility] [place] [address] [facility], Nurse [facility] 132 [facility] [place] [address] 02/27/2024 2:30 PM EDT Telemedicine [facility], [facility] [place] [address] Sylvie Crawford CRNP [address] [place] [address] Mara Crystal [address] [place] [address] 03/05/2024 9:15 AM EDT Cardiac Studies Cardiac Studies, [facility] 132 [facility] [place] [address] 03/21/2024 5:30 PM EDT Home Visit [facility], [facility] [place] [address] Ingris Madden RN 132 [facility] [place] [address] 04/23/2024 11:00 AM EDT Office Visit Cardiology, [facility] [address] [facility] [place] [address] Luh Garcia CRNP [facility] [place] [address] 07/10/2024 2:40 PM EDT Office Visit Family Medicine [address] [place] [phone] Claude Mata MD [address] [place] [address] [place] [address] 07/15/2024 10:00 AM EDT Nurse Only Ancillary [address] [place] [address] [facility], Nurse [address] [place] [address] 10/01/2024 3:20 PM EST Office Visit Nephrology [address] [place] [address] Cande Soni MD [address] [facility] [place] [address] 12/02/2024 2:20 PM EST Office Visit Dermatology [address] [place] [address] Dalila West PA-C [address] [place] [address] [place] [address] Health Maintenance Due Date Last Done Comments COVID-19 Vaccine ( season) 2023 01/07/2022, 12/31/2020, 12/03/2020 DTaP,Tdap,and Td Vaccines (2 - Td or Tdap) 10/14/2023 10/14/2013, 07/22/2008 Depression Screening 07/12/2024 07/12/2023 Albumin/Creatinine Ratio 10/05/2024 024, 02/14/2023, 04/07/2022, Additional history exists CKD PHOS USE SMARTSET 55567 10/05/202401/2024, 05/12/2022, 10/05/2020, Additional history exists CKD HGB USE SMARTSET 58058 02/22/202502/22, 02/23/2024, 02/13/2024, Additional history exists Pneumococcal [...] Name Relationship Healthcare Agent Relationshi p Communication Susumaude Seguraeunice Adult Child Health Care Repr esentative (appointed verbally by patient or by statute hierarchy) Care Teams Able Bodied Seaman Relationship Specialty Start Date End Date Claude Mata MD [address] [place] [address] [place] [address] PCP - General Family Medicine 11/13/23 documented as of this encounter
--- OUTSIDE RECORDS SUMMARY | 2024-02-27 23:47 | External Medical Summary | Summary of Care ---
Author Name Unknown Organization [facility] Address [address] [place] [address] Phone [phone] Care Team Providers Care Back Tender Name Role Phone Claude Mata MD Primary Care Provide r Reason for Visit * Reason Onset Date Comments [facility]: Maintenance 02/26/2024 Encounter Details Date Type Department Care Team (Late st Contact Info) Description 02/26/2024 8:30 AM EDT Scheduled Telephone [facility], [facility] [address] [employer] [address] [facility], Nurse [facility] [address] [address] Allergies Active Allergy Reactions Criticality Noted Date Comments Trazodone Other (Please comment) High 10/05/2023 Hallucinations documented as of this encounter (statuses as of 02/26/2024) Medications Medication Sig Dispensed Refills Start Date End Date Status ASPIRIN 81 MG PO TABS one tab by mouth daily 0 0 12/11/2006 Active CENTRUM PO TABS 1 tablet a day Activ e oxygen IN GAS Use 2 L/min(Oxygen) as directed at bedtime. Active Vitamin B-12 100 MCG Oral Tablet (vitamin B-12) Take 1 Tablet by mouth in the morning. Active Saline [place] 0.65 % Nasal Solution ([place]) Administer into nostril 1 [place] as needed for Congestion. 60 mL 5 [...] chronic kidney disease (HCC),Coronary artery disease involving [place] coronary artery of [place] heart without angina pectoris Take 1 Tablet [...] HFA 17 MCG/ACT Inhalation Aerosol Solution (ipratropium)Indicat ions:[place] workers pneumoconiosis (HCC) Inhale 2 Puffs by [...] as of this encounter (statuses as of 02/26/2024) Active Problems Problem Noted Date Diagnosed Date SOLEDAD (generalized anxiety disorder) 12/01/2023 Coronary artery disease invo lving [place] coronary artery of [place] heart without angina pectoris 12/01/2023 Pulmonary hypertension, unspecified 10/07/2023 HFrEF (heart failure with reduced ejection fract ion) 09/19/2023 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 GENERAL OSTEOARTHROSIS INSOMNIA W SLEEP APNEA [place] workers pneumoconiosis Restrictive lung disease documented as of this encounter (statuses as of 02/26/2024) Resolved Problems Problem Noted Date Diagnosed Date [...] Rotator cuff rupture 05/22/2003 018 LOC PRIM [id number] 05/22/200310/02 Prepatellar bursitis 05/22/2003 015 Inflammation of sacroiliac joint 10/12/2001 10/16/2014 LOC PRIM OSTEOARTH-HAND 10/12/200110/02 Respiratory abnormality 07/04 Overview: ICD-10 update of inactive term Umbilical hernia 05/10/2018 Insomnia 10/16/2014 Overview: ICD-10 update of inactive term COPD, severity to be determined 07/07/2011 Allergic rhinitis 05/10/2018 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 Communication Note Name: Ned Elliott Situation: CHF exacerbation Background: f/u wts, SOB, had 100mg IV lasix 02/21, 02/22, currently taking torsemide 80mg daily, wears 2lnc at hs routinely, wears during day on bad days, labs reviewed Assessment: ''No air at all today'' ''I feel a little worse today with my breathing'' States, ''might be the weather'' Tends to be more sob when overcast and rainy Wearing o2 at night Wearing today 2lnc Denies cp + cough x6 months - yellow sputum most days Denies fevers Pulse ox 96% on 2lnc HR 63 No need for increase number of pillows to sleep last night Slept well overnight No pause to talk Belched during call, ''I feel better after I belch'' Seeing Cardiology tomorrow Also has [facility] Provider visit tomorrow Has been eating low sodium diet, family coming for lunch and ''they know what I can and can't have'' TT above assessment to Dr. Fang, discussed HV vs allowing Cardiology to manage fluid status at apt tomorrow at 1000 Recommendation: No HV at this time as no distress and seeing Cardiology tomorrow Pt aware to call [facility] if has increased sob today Continue to monitor via [facility] Aware of Cardiology apt tomorrow at 1000 - son taking, encouraged to have son go back with him to meet with White Mixing Operator, agreed to do so Also scheduled for labs tomorrow - pt aware Reviewed dietary and fluid restrictions Return call to pt VU of above Plan/Recommendations, able to provide VTB of Red Flags: increased sob, fever/chills, worsening cough Placed on schedule for f/u call 02/28/24 for fluid assessment documented in this encounter Plan of Treatment Upcoming Encounters Date Type Department Care Team (Late st Contact Info) Description 02/27/2024 2:30 PM EDT Telemedicine [facility], [facility] [address] [place] [address] Sylvie Crawford CRNP [address] [place] [address] Mara Crystal, Community Health Special Education Educational Assistant [address] [place] [address] [place] [address] 02/28/2024 9:30 AM EDT Scheduled Telephone [facility], [facility] [address] [place] [address] Coordinator, [facility] [address] [place] [address] 03/05/2024 9:15 AM EDT Cardiac Studies Cardiac Studies, [facility] [address] [place] [address] 03/21/2024 5:30 PM EDT Home Visit [facility], [facility] [address] [place] [address] Ingris Madden RN [address] [place] [address] 04/23/2024 11:00 AM EDT Office Visit Cardiology, [facility] [address] [place] [address] Luh Garcia CRNP [address] [place] [address] 07/10/2024 2:40 PM EDT Office Visit Family Medicine [address] [place] [phone] Claude Mata MD [address] [place] [address] [place] [address] 07/15/2024 10:00 AM EDT Nurse Only Ancillary [address] [place] [address] Rubina, Nurse Annual [address] [place] [address] 10/01/2024 3:20 PM EST Office Visit Nephrology [address] [place] [address] Cande Soni MD [address] [place], [place] [address] 12/02/2024 2:20 PM EST Office Visit Dermatology [address] [place] [address] Dalila West PA-C [address] [place] [address] [place] [address] Health Maintenance Due Date Last Done Comments COVID-19 Vaccine (2022- season) 2023 01/07/2022, 12/31/2020, 12/03/2020 DTaP,Tdap,and Td Vaccines (2 - Td or Tdap) 10/14/2023 10/14/2013, 07/22/2008 Depression Screening 07/12/2024 07/12/2023 Albumin/Creatinine Ratio 10/05/2024 024, 02/14/2023, 04/07/2022, Additional history exists CKD PHOS USE SMARTSET 28657 10/05/2024 0101/2024, 05/12/2022, 10/05/2020, Additional history exists CKD HGB USE SMARTSET 52970 02/22/202502/22, 02/23/2024, 02/13/2024, Additional history exists Pneumococcal [...] Agents on File Name Relationship Healthcare Agent [facility] p Communication Susu Quezada Adult Child Health Care Repr esentative (appointed verbally by patient or by statute hierarchy) Care Teams Back Tender Relationship Specialty Start Date End Date Claude Mata MD [address] [place] [address] [place] [address] PCP - General Family Medicine 11/13/23 documented as of this encounter
--- OUTSIDE RECORDS SUMMARY | 2024-02-27 23:47 | External Medical Summary | Summary of Care ---
Author Name Unknown Organization [facility] Address [address] [place] [address] Phone [phone] Care Team Providers Care Multi Operation Machine Operator Name Role Phone Claude Mata MD Primary Care Provide r Reason for Visit * Reason Comments [facility]: Acute Encounter Details Date Type Department Care Team (Late st Contact Info) Description 02/23/2024 2:30 PM EDT Home Visit [facility], [facility] [address] [facility] [place] [address] Cheryl Carter RN 132 [facility] [place] [address] Allergies Active Allergy Reactions Criticality Noted Date [...] by mouth in the morning. Active Saline [place] 0.65 % Nasal Solution ([place]) Administer into nostril 1 [place] as needed for Congestion. 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 07/04 Bilateral carpal tunnel syndrome 05/10/2018 CKD [...] Sign Reading Time Taken Comments Blood Pressure 138/68 02/23/2024 2:42 PM EDT Pulse 66 02/23/2024 2:42 PM EDT Temperature 36.1 C (96.9 F) 02/23/2024 2 :42 PM EDT Respiratory Rate 18 02/23/2024 2:42 PM EDT Oxygen Saturation 99% 02/23/2024 2:4 2 PM EDT o2 on at 2 l/min via nc Inhaled Oxygen Concentration - - Weight 78.7 kg (173 lb 6.4 oz) 02/23/2024 2:42 PM EDT Height - - Body Mass Index 22.11 10/25/2023 12:45 PM EST documented in this encounter Progress Notes * Cheryl Carter RN - 02/23/2024 2:42 PM EDT Images from the original note were not included. [facility] [employer] Visit Date: 02/23/2024 Time: 2:42 PM Name: Ned Elliott : 1935 Current Concerns: Communication Note Name: Ned Elliott Situation: Called to pt's home for acute visit He had visit yesterday and was given IV Lasix 100mg for fluid overload Pt reported on f/u call that he has not lost much weight, continues to have increased SOB and need to wear oxygen He reports abdominal distention feels a little better Background: 88 y/o male with CHF, HTN, restrictive lung disease Assessment: Pt sitting at dining room table, alert and oriented Wearing oxygent at 2 l/min via nc, doesn't usually wear oxygen during the day Increased SOB with exertion States he feels played out Faint rales noted of LLL, otherwise clear +1 pedal edema of right foot + abdominal bloating, with some mild improvement from yesterday Only down 0.6 lbs from yesterday BP 138/68 | Pulse 66 | Temp 36.1 C (96.9 F) | Resp 18 | Wt 78.7 kg (173 lb 6.4 oz) | SpO2 99% Comment: o2 on at 2 l/min via nc | BMI 22.11 kg/m | BSA 2.03 m [facility]ation[facility] ordered IV Lasix 100mg again today Peripheral IV started left AC and lasix administered BP 112/56 post IV Lasix - pt denies dizziness Tolerated IV well IV removed and pressure dsg applied On for f/u call with possible visit tomorrow Problems/Symptoms: Review of Systems Constitutional: Positive for fever. Respiratory: Positive for cough (white to yellow mucus) and shortness of breath (with exertion - above baseline). Cardiovascular: Positive for leg swelling. Physical Exam: BP 138/68 | Pulse 66 | Temp 36.1 C (96.9 F) | Resp 18 | Wt 78.7 kg (173 lb 6.4 oz) | SpO2 99% Comment: o2 on at 2 l/min via nc | BMI 22.11 kg/m | BSA 2.03 m Pain 0 [facility]-10 Completed this Visit: Yes. [facility]-10: Reason Completed: Status post acute event/change in baseline [facility]-10 Interventions: Fall education provided, reviewed/provided Fall brochure Treatment/Plan: IV lasix 100mg today- IV discontinued following administration Resume Torsemide to 80mg daily tomorrow Low na diet [facility] scales daily Continue medications as prescribed Keep all upcoming MD appointments Fall precautions Fluids encouraged Follow up phone call tomorrow- lasix effectiveness Home Interventions Provided: IV Interventions: Diuretic Home Intervention: Other; eval Consulted PCP/Specialist Reinforced current Plan of Care, including self-management and medication regimen Patient's 'Red Flags': Wt gain of 3 lbs in 24 hrs or 5 lbs in one wk More SOB Get a stent in my heart Patient Needs to Remember: Call [facility] at with any new or worsening health concerns or problems, red flag symptoms. Referrals Needed: Other none Follow Up: Is there cellular connectivity/connectivity in the home? Yes Does the patient have internet in the home? No Patient encouraged to call the intake phone number for all urgent but not emergent issues. Scheduled to follow up with patient in 24 hrs. Cheryl Carter RN 02/23/2024 2:42 PM documented in this encounter Plan of Treatment Upcoming Encounters Date Type Department Care Team (Late st Contact Info) Description 02/24/2024 9:30 AM EDT Scheduled Telephone [facility], [address] [place] [address] [facility], Nurse [place] [address] [facility] [place] [address] 02/25/2024 8:30 AM EDT Scheduled Telephone [facility], [facility] [address] [place] [address] [facility], Nurse [address] [place] [address] 02/27/2024 2:30 PM EDT Telemedicine [facility], [facility] [address] [place] [address] Sylvie Crawford CRNP [address] [place] [address] Mara Crystal, [facility] [address] [place] [address] 03/05/2024 9:15 AM EDT Cardiac Studies Cardiac Studies, [facility] [address] [place] [address] 03/21/2024 5:30 PM EDT Home Visit [facility], [facility] [address] [place] [address] Ingris Madden, ARTURO [address] [place] [address] 04/23/2024 11:00 AM EDT Office Visit Cardiology, [facility] [address] [place] [address] Luh Garcia CRNP [address] [place] [address] 07/10/2024 2:40 PM EDT Office Visit Family Medicine [address] [place] [phone] Claude Mata MD [address] [place] [address] [place] [address] 07/15/2024 10:00 AM EDT Nurse Only Ancillary [address] [place] [address] [place], Nurse [address] [place] [address] 10/01/2024 3:20 PM EST Office Visit Nephrology [address] [place] [address] Cande Soni MD 200 [facility], [place] [address] 12/02/2024 2:20 PM EST Office Visit Dermatology [address] [place] [address] Dalila West PA-C [address] [place] [address] [place] [address] Health Maintenance Due Date Last Done Comments COVID-19 Vaccine (2022- season) 2023 01/07/2022, 12/31/2020, 12/03/2020 DTaP,Tdap,and Td Vaccines (2 - Td or Tdap) 10/14/2023 10/14/2013, 07/22/2008 Depression Screening 07/12/2024 07/12/2023 Albumin/Creatinine Ratio 10/05/20242 024, 02/14/2023, 04/07/2022, Additional history exists CKD PHOS USE SMARTSET 15869 10/05/2024/0 01/2024, 05/12/2022, 10/05/2020, Additional history exists CKD HGB USE SMARTSET 61794 02/22/202502/22, 02/23/2024, 02/13/2024, Additional history exists Pneumococcal [...] Not on filedocumented as of this encounter Administered Medications Inactive Administered Medications - up to 3 most recent administrations Medication Order MAR Action Action Date Dose Rate Site Furosemide (Lasix) inj 100 mg 100 mg, IV Push, ONCE, On Neelam 02/22/24 at 1545, For 1 dose Given 02/23/2024 3:19 PM EDT 100 mg Antecubital Left Given 02/22/2024 5:44 PM EDT 100 mg An tecubital Right documented in this encounter Advance Directives * [...] patient or by statute hierarchy) Care Teams Multi Operation Machine Operator Relationship Specialty Start Date End Date Claude Mata MD [address] [place] [address] [place] [address] PCP - General Family Medicine 11/13/23 documented as of this encounter"
--- OUTSIDE RECORDS SUMMARY | 2024-02-27 23:47 | External Medical Summary | Summary of Care ---
Author Name Unknown Organization [facility] Address [address] [place] [address] Phone [phone] Care Team Providers Care Industrial Engineer Name Role Phone Claude Mata MD Primary Care Provide r Encounter Details Date Type Department Care Team (Late st Contact Info) Description 02/23/2024 Orders Only Laboratory [address] [place] [phone] Tuan Mercer, CHRIS [address]gu[address] [place] [id number] Hypokalemia*; Hyponatremia; Chronic kidney disease, stage 3b [...] by mouth in the morning. Active Saline [place] 0.65 % Nasal Solution ([place]) Administer into nostril 1 [place] as needed for Congestion. 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 Pt to have repeat BMP done 02/27/24. Orders in. Pt contacted and will go to the clinic to have ordered labs drawn. documented in this encounter Plan of Treatment Upcoming Encounters Date Type Department Care Team (Late st Contact Info) Description 02/24/2024 9:30 AM EDT Scheduled Telephone [facility], [address] [place] [address] [facility], Nurse [address] [place] [address] 02/25/2024 8:30 AM EDT Scheduled Telephone [facility], [facility] 132 [facility] [place] [address] [facility], Nurse [address] [place] [address] 02/27/2024 2:30 PM EDT Telemedicine [facility], [facility] 132 [facility] [place] [address] Sylvie Crawford CRNP 132 [facility] [place] [address] Mara Crystal, [address] [place] [address] 03/05/2024 9:15 AM EDT Cardiac Studies Cardiac Studies, [facility] 132 [facility] [place] [address] 03/21/2024 5:30 PM EDT Home Visit [facility], [facility] 132 [facility] [place] [address] Ingris Madden, ARTURO 132 [facility] [place] [address] 04/23/2024 11:00 AM EDT Office Visit Cardiology, [facility] 132 [facility] [place] [address] Luh Garcia CRNP 132 [facility] [address] 07/10/2024 2:40 PM EDT Office Visit Family Medicine [address] [place] [phone] Claude Mata MD [address] [place] [address] [place] [address] 07/15/2024 10:00 AM EDT Nurse Only Ancillary [address] [place] [address] [place], Nurse [address] [place] [address] 10/01/2024 3:20 PM EST Office Visit Nephrology [address] [place] [address] Cande Soni MD 200 [facility] [place] [address] 12/02/2024 2:20 PM EST Office Visit Dermatology [address] [place] [address] Dalila West PA-C [address] [place] [address] [place] [address] Scheduled Orders Name Type Priority Associated Diagnoses [...] Additional history exists CKD PHOS USE SMARTSET 41860 10/05/202401/2024, 05/12/2022, 10/05/2020, Additional history exists CKD HGB USE SMARTSET 80478 02/22/202502/22, 02/23/2024, 02/13/2024, Additional history exists Pneumococcal [...] patient or by statute hierarchy) Care Teams Industrial Engineer Relationship Specialty Start Date End Date Claude Mata MD [address] [place] [address] [place] [phone] PCP - General Family Medicine 11/13/23 documented as of this encounter
--- OUTSIDE RECORDS SUMMARY | 2024-02-27 23:48 | External Medical Summary | Summary of Care ---
Author Name Unknown Organization [facility] Address [address] [place] [address] Phone [phone] Care Team Providers Care Railroad Accountant Name Role Phone Claude Mata MD Primary Care Provide r Reason for Visit * Reason Onset Date Comments Test Results 02/23/2024 Encounter Details Date Type Department Care Team (Late st Contact Info) Description 02/23/2024 Telephone Family Medicine [address] [phone] Claude Mata MD [address] [place] [address] [place] [id number] Test Results Allergies Active Allergy Reactions Criticality Noted Date [...] by mouth in the morning. Active Saline [place] 0.65 % Nasal Solution ([place]) Administer into nostril 1 [place] as needed for Congestion. 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 I called Ned and he states [place] is his wound care site. I called [facility] for wound care and they stated Ned was started on keflex on 01/21 by [facility] wound care team and discontinued on 01/29 when he went into the hospital. Patient is no showing and cancelling is wound care apts. Was scheduled for yesterday and cancelled and has not made any future apts. They have not seen him in over 1 mo. Wound care did not have most recent MRI done on 02/21/24. Faxed results to them and they will have doctors review it and treat patient and call him to make apt. Please let pt know he needs to see wound care and make ap due to not being seen over 1 mo. Wound isnot healed * Telephone Encounter - Claude Mata MD - 02/23/2024 11:38 AM EDT It looks like pt was on keflex recently which was started by wound clinic The MRI was ordered by the wound clinic - can we confirm the wound clinic is aware of the Mri finding * Telephone Encounter - Angeles Ibrahim LPN - 02/23/2024 9:17 AM EDT HH Concerns Harsha RN, Calling from: [facility] Report/Concerns of: osteomyelitis Symptoms: wound ulcer of right foot. Vitals: T 97.2 P 74 RR 18 BP 128/64 SP O2 94% room air Lung sounds clear Weight 173.8 Blood sugar n/a Narrative: Harsha calling from [facility] Patient had a MRI of the right foot. 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 No pain. Called the office and spoke to Mone. Will make the doctor aware. Call back the patient with any advice or orders at [phone] Please fax new orders to [phone] documented in this encounter Plan of Treatment Upcoming Encounters Date Type Department Care Team (Late st Contact Info) Description 02/24/2024 9:30 AM EDT Scheduled Telephone [facility], [address] [place] [address] [facility], Nurse [address] [place] [address] 02/25/2024 8:30 AM EDT Scheduled Telephone [facility], [facility] [address] [place] [address] [facility], Nurse [address] [place] [address] 02/27/2024 2:30 PM EDT Telemedicine [facility], [facility] [address] [place] [address] Sylvie Crawford CRNP 132 [facility] [place] [address] Mara Crystal, Community [facility] [address] [place] [address] 03/05/2024 9:15 AM EDT Cardiac Studies Cardiac Studies, [facility] [place] [address] 03/21/2024 5:30 PM EDT Home Visit [facility], [facility] [address] [place] [address] Ingris Madden, ARTURO [address] [place] [address] 04/23/2024 11:00 AM EDT Office Visit Cardiology, [facility] 132 [facility] [place] [address] Luh Garcia CRNP [facility] [place] [address] 07/10/2024 2:40 PM EDT Office Visit Family Medicine [address] [place] [phone] Claude Mata MD [address] [place] [address] [place] [address] 07/15/2024 10:00 AM EDT Nurse Only Ancillary [address] [place] [address] [place], Nurse [address] [place] [address] 10/01/2024 3:20 PM EST Office Visit Nephrology [address] [place] [address] Cande Soni MD 200 [facility] [place] [address] 12/02/2024 2:20 PM EST Office Visit Dermatology [address] [place] [address] Dalila West PA-C [address] [place] [address] [place] [address] Health Maintenance Due Date Last Done Comments COVID-19 Vaccine ( season) 2023 01/07/2022, 12/31/2020, 12/03/2020 DTaP,Tdap,and Td Vaccines (2 - Td or Tdap) 10/14/2023 10/14/2013, 07/22/2008 Depression Screening 07/12/2024 07/12/2023 Albumin/Creatinine Ratio 10/05/2024 024, 02/14/2023, 04/07/2022, Additional history exists CKD PHOS USE SMARTSET 67872 10/05/202401/2024, 05/12/2022, 10/05/2020, Additional history exists CKD HGB USE SMARTSET 84876 02/22/202502/22, 02/13/2024, 02/13/2024, Additional history exists Pneumococcal Vaccine: 65+ [...] patient or by statute hierarchy) Care Teams Railroad Accountant Relationship Specialty Start Date End Date Claude Maat MD [address] [place] [address] [place] [phone] PCP - General Family Medicine 11/13/23 documented as of this encounter
--- OUTSIDE RECORDS SUMMARY | 2024-02-27 23:48 | External Medical Summary | Summary of Care ---
Author Name Unknown Organization [facility] Address [address] [place] [address] Phone [phone] Care Team Providers Care Boy'S Adviser Name Role Phone Claude Mata MD Primary Care Provide r Reason for Visit * Reason Comments Outpatient Testing Encounter Details Date Type Department Care Team (Late st Contact Info) Description 02/23/2024 8:20 AM EDT Laboratory Laboratory [address] [place] [phone] [place] [address] Other elevated white blood cell (WBC) count; HFrEF (heart failure with reduced ejection fraction) ([facility]) Allergies Active Allergy Reactions Criticality Noted Date [...] by mouth in the morning. Active Saline [place] 0.65 % Nasal Solution ([place]) Administer into nostril 1 [place] as needed for Congestion. 60 mL 5 [...] chronic kidney disease (HCC),Coronary artery disease involving [place] coronary artery of [place] heart without angina pectoris Take 1 Tablet [...] HFA 17 MCG/ACT Inhalation Aerosol Solution (ipratropium)Indicat ions:[place] workers pneumoconiosis (HCC) Inhale 2 Puffs by [...] heart failure managing provider. 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/04 Bilateral carpal tunnel syndrome 05/10/2018 CKD [...] Contact Info) Description 02/23/2024 2:30 PM EDT Scheduled Telephone [facility], [place] [address] [place] [address] Coordinator, [facility] [address] [place] [address] 02/24/2024 3:00 PM EDT Scheduled Telephone [facility], [place] [address] [address] [place] [address] Region, Nurse [place] [address] [address] [place] [address] 02/27/2024 2:30 PM EDT Telemedicine [facility], [facility] [address] [place] [address] Sylvie Crawford CRNP [address] [place] [address] Mara Crystal, Community Health Graphite Disk Assembler [address] [place] [address] [place] [address] 03/05/2024 9:15 AM EDT Cardiac Studies Cardiac Studies, [facility] [address] [place] [address] 03/21/2024 5:30 PM EDT Home Visit [facility], [facility] [address] [place] [address] Ingris Madden, RN [address] [place] [address] 04/23/2024 11:00 AM EDT Office Visit Cardiology, [facility] [address] [place] [address] Luh Garcia CRNP [address] [place] [address] 07/10/2024 2:40 PM EDT Office Visit Family Medicine [address] [place] [phone] Claude Mata MD [address] [place] [address] [place] [address] 07/15/2024 10:00 AM EDT Nurse Only Ancillary [address] [place] [address] [place], Nurse Annual [address] [place] [address] 10/01/2024 3:20 PM EST Office Visit Nephrology [address] [place] [address] Cande Soni MD [address] [facility], [place] [address] 12/02/2024 2:20 PM EST Office Visit Dermatology [address] [place] [address] Dalila West PA-C [address] [place] [address] [place] [address] Pending Results Name Type Priority Associated Diagnoses Date /Time CBC WITH WBC DIFFERENTIAL AND ANEMIA REFLEX WORKUP Lab Routine Other elevated white blood cell (WBC) count 02/23/2024 8:11 AM EDT BASIC METABOLIC PANEL Lab Routine HFrEF (heart failure with reduced ejection fraction) (HCC) 02/23/2024 8:11 AM EDT ANEMIA CBC Lab Routine Other elevated white blood cell (WBC) count 02/23/2024 8:11 AM EDT DIFFERENTIAL, AUTOMATED Lab Routine Other elevated white blood cell (WBC) count 02/23/2024 8:11 AM EDT ANEMIA REFLEX CHEMISTRY HOLD Lab Routine Other elevated white blood cell (WBC) count 02/23/2024 8:11 AM EDT Health Maintenance Due Date Last Done Comments COVID-19 Vaccine ( season) 2023 01/07/2022, 12/31/2020, 12/03/2020 DTaP,Tdap,and Td Vaccines (2 - Td or Tdap) 10/14/2023 10/14/2013, 07/22/2008 Depression Screening 07/12/2024 07/12/2023 Albumin/Creatinine Ratio 10/05/2024 024, 02/14/2023, 04/07/2022, Additional history exists CKD PHOS USE SMARTSET 98769 10/05/2024 01/01/2024, 05/12/2022, 10/05/2020, Additional history exists CKD HGB USE SMARTSET 87910 02/12/202502/12, 02/13/2024, 12/01/2023, Additional history exists Pneumococcal Vaccine: 65+ Years [...] as of this encounter Visit Diagnoses Diagnosis Other elevated white blood cell (WBC) count HFrEF (heart failure with reduced ejection fraction) [...] patient or by statute hierarchy) Care Teams Boy'S Adviser Relationship Specialty Start Date End Date Claude Mata MD [address] [place] [address] [place] [address] PCP - General Family Medicine 11/13/23 documented as of this encounter
--- OUTSIDE RECORDS SUMMARY | 2024-02-27 23:48 | External Medical Summary | Summary of Care ---
Author Name Unknown Organization [facility] Address [address] [place] [address] Phone [phone] Care Team Providers Care Fisher Name Role Phone Claude Mata MD Primary Care Provide r Reason for Visit * Reason Onset Date Comments [facility]: Maintenance 02/23/2024 Encounter Details Date Type Department Care Team (Late st Contact Info) Description 02/23/2024 2:30 PM EDT Scheduled Telephone [facility], [facility] 132 [facility] [place] [address] Coordinator, [facility] [address] [facility] [place] [address] Allergies Active Allergy Reactions Criticality Noted Date [...] by mouth in the morning. Active Saline [place] 0.65 % Nasal Solution ([place]) Administer into nostril 1 [place] as needed for Congestion. 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 Chronic rhinitis 04/08/2022 Lung nodules 04/08/2022 [...] appointment. 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 [facility] Telephonic Nurse Follow-Up Call [facility] Subprogram: Focused Care Management (3-9 months) Follow Up Call Type: 24 hour follow up Acute issue requiring follow-up call: Heart Failure Exacerbation Objective: 02/22/2024 2:51 PM 02/13/2024 1:47 PM 02/10/2024 10:58 AM 01/12/2024 2:54 PM 12/21/2023 11:05 AM VITALS ACROSS ENCOUNTERS BP 120/68 116/56 134/64 120/60 118/60 Pulse 68 67 75 67 83 Weight 78.9 kg 81.2 kg 76.2 kg 81.8 kg 83 kg BMI 22.19 kg/m2 22.83 kg/m2 21.41 kg/m2 22.99 kg/m2 23.34 kg/m2 Remote Patient Monitoring: [facility] Scale: see below Oxygen Needs: INCREASED supplemental oxygen needs from baseline DME Needs: NO DME needs identified Medications: New medication(s) added: Pt followed DTP 02/19,02/20 : doubled Torsemide dose to 80mg bid from once daily. Had IV lasix 100mg 02/22/24. Resumed his usual Torsemide dose this morning of 80 mg daily. Subjective: Condition Status: No change in symptoms Communication Note Name: Ned Elliott Situation: Pt on for 24 hour follow up following IV lasix 100mg yesterday Background: Pt followed DTP 02/19,02/20 : doubled Torsemide dose to 80mg bid from once daily. Had IV lasix 100mg 02/22/24. Resumed his usual Torsemide dose this morning of 80 mg daily. Pt normally wears oxygen 2LPM only at bedtime. Has been wearing continuously due to increased sob. Pt went to lab this morning and had labs drawn as ordered: CBC/DIFF, BMP-not resulted yet. Assessment: Home health RN saw pt this morning: T 97.2 P 74 RR 18 BP 128/64 SP O2 94% room air Lung sounds clear Spoke with patient who states that his breathing is still "heavy". I have to keep my air on all of the time. Reports no improvement in breathing. Denies chest pain, but feels like it gets tight at times. Does feel like his abdomen is softer and not as bloated. Notes increase in urine output after the Iv lasix yesterday. Weight decreased .6 lbs from yesterday. Unsure of true dry wt Had edema in right foot only. Pt states he just found out he has an infection in his bone and isn'tsure if the swelling is related to that. No edema in LLE. Of note, pt's MRI +osteomyelitis. [facility] sent message to pcp to ask about follow up for results. [facility] provided wound care to footulcer. No redness or foul drainage from wound per pt report. Recommendation: Routing to [facility] DTP vs in home visit for today for additional IV lasix? Continue daily wts Low sodium diet Limit fluids <2L per day Follow up calls through the weekend Disposition: Routed to [facility] and/or [facility] for further advice and Weekend call scheduled Future Visits Scheduled: Future Appointments-next 60 days Date/Time Provider Specialty Dept Phone 02/23/2024 2:30 PM Coordinator, Daryl Muniz [facility] [phone] 02/24/2024 3:00 PM Region, Nurse [facility] Julio [facility] [phone] 02/27/2024 2:30 PM Mara Crystal, Community Health Auto Dealer; Sylvie Crawford CRNP [facility] [phone] 03/05/2024 9:15 AM EDUCATIONAL RECRUITER 2 GW Cardiac Studies [phone] 03/21/2024 5:30 PM Ingris Madden, ARTURO [facility] [phone] 04/23/2024 11:00 AM (Arrive by 10:45 AM) Luh Garcia CRNP Cardiology [phone] 07/10/2024 2:40 PM (Arrive by 2:25 PM) Claude Mata MD Family Medicine [phone] 07/15/2024 10:00 AM Nurse Rubina [facility] Ancillary [phone] 10/01/2024 3:20 PM (Arrive by 3:05 PM) Cande Soni MD Nephrology [phone] 12/02/2024 2:20 PM (Arrive by 2:05 PM) Dalila West PA-Karen Dermatology [phone] [place], RN documented in this encounter Plan of Treatment Upcoming Encounters Date Type Department Care Team (Late st Contact Info) Description 02/23/2024 2:30 PM EDT Home Visit [facility], [facility] [address] [place] [address] Cheryl Carter RN [address] [place] [address] 02/24/2024 3:00 PM EDT Scheduled Telephone [facility], [facility] [address] [place] [address] [facility] Nurse [facility] [address] [place] [address] 02/27/2024 2:30 PM EDT Telemedicine [facility], [facility] 132 [place] [address] Sylvie Crawford CRNP [address] [place] [address] Mara Crystal, [facility] [address] [place] [phone] 03/05/2024 9:15 AM EDT Cardiac Studies Cardiac Studies, [facility] [place] [address] 03/21/2024 5:30 PM EDT Home Visit [facility], [facility] [address] [place] [address] Inrgis Madden, ARTURO [address] [place] [address] 04/23/2024 11:00 AM EDT Office Visit Cardiology, [facility] 132 [facility] [place] [address] Luh Garcia CRNP [facility] [place] [address] 07/10/2024 2:40 PM EDT Office Visit Family Medicine [address] [place] [phone] Claude Mata MD [address] [place] [address] [place] [address] 07/15/2024 10:00 AM EDT Nurse Only Ancillary [address] [place] [address] [place], Nurse [address] [place] [address] 10/01/2024 3:20 PM EST Office Visit Nephrology [address] [place] [address] Cande Soni MD [address] [place] [address] [place] [address] 12/02/2024 2:20 PM EST Office Visit Dermatology [address] [place] [address] Dalila West PA-C [address] [place] [address] [place] [address] Health Maintenance Due Date Last Done Comments COVID-19 Vaccine (4 - 2022-24 season) 2023 01/07/2022, 12/31/2020, 12/03/2020 DTaP,Tdap,and Td Vaccines (2 - Td or Tdap) 10/14/2023 10/14/2013, 07/22/2008 Depression Screening 07/12/2024 07/12/2023 Albumin/Creatinine Ratio 10/05/2024 024, 02/14/2023, 04/07/2022, Additional history exists CKD PHOS USE SMARTSET 21446 10/05/202401/2024, 05/12/2022, 10/05/2020, Additional history exists CKD HGB USE SMARTSET 42048 02/12/202502/12, 02/13/2024, 12/01/2023, Additional history exists Pneumococcal [...] File Name Relationship Healthcare Agent [facility] Communication Susu Quezada Adult Child Health Care Repr esentative (appointed verbally by patient or by statute hierarchy) Care Teams Fisher Relationship Specialty Start Date End Date Sellathurai, Thiviyanath, MD [address] [place] [address] [place] [address] PCP - General Family Medicine 11/13/23 documented as of this encounter
--- OUTSIDE RECORDS SUMMARY | 2024-02-27 23:48 | External Medical Summary | Summary of Care ---
Author Name Unknown Organization [facility] Address [address] [place] [address] Phone [phone] Care Team Providers Care Agriculture Technician Name Role Phone Claude Mata MD Primary Care Provide r Reason for Visit * Reason Onset Date Comments [facility]: Maintenance 02/23/2024 Encounter Details Date Type Department Care Team (Late st Contact Info) Description 02/23/2024 2:30 PM EDT Scheduled Telephone [facility], [facility] 132 [facility] [place] [address] Coordinator, [facility] [address] [facility] [place] [address] Allergies Active Allergy Reactions Criticality Noted Date [...] by mouth in the morning. Active Saline [place] 0.65 % Nasal Solution ([place]) Administer into nostril 1 [place] as needed for Congestion. 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 GENERAL OSTEOARTHROSIS INSOMNIA W SLEEP APNEA [place] workers pneumoconiosis Restrictive lung disease documented as [...] Rotator cuff rupture 05/22/2003 018 LOC PRIM [id number] 05/22/200310/02 Prepatellar bursitis 05/22/2003 015 Inflammation of sacroiliac joint 10/12/2001 10/16/2014 LOC PRIM OSTEOARTH-HAND 10/12/200110/02 Respiratory abnormality 07/04 Overview: ICD-10 update of inactive term Umbilical hernia 05/10/2018 Insomnia 10/16/2014 Overview: ICD-10 update of inactive term COPD, severity to be determined 07/07/2011 Allergic rhinitis 05/10/2018 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 NOS-PILOT BOAT DECKHAND 07/04 Bilateral carpal tunnel syndrome 05/10/2018 CKD [...] Encounter - Sade Park RN - 02/23/2024 11:52 AM EDT Patient made aware that RNCM will see him between 2-3 pm today for possible IV lasix. Reinforced tocall back to [facility] if symptoms worsen. Pt verbalizes understanding. * Telephone Encounter - Sade Park RN - 02/23/2024 9:44 AM EDT Images from the original note were not included. [facility] Telephonic Nurse Follow-Up Call [facility] Subprogram: Focused Care Management (3-9 months) Follow [...] 22.99 kg/m2 23.34 kg/m2 Remote Patient Monitoring: [facility] Scale: see below Oxygen Needs: INCREASED supplemental [...] in LLE. Of note, pt's MRI +osteomyelitis. [facility] sent message to pcp to ask about follow up for results. [facility] provided wound care to footcer. No redness or foul drainage from wound per pt report. Recommendation: Routing to [facility] DT vs in home visit for today for additional IV lasix? Continue daily wts Low sodium diet Limit fluids <2L per day Follow up calls through the weekend Disposition: Routed to [facility] and/or [facility] Care Team for further advice and Weekend call scheduled Future Visits Scheduled: Future Appointments-next 60 days Date/Time Provider Specialty Dept Phone 02/23/2024 2:30 PM Coordinator, [facility] [phone] 02/24/2024 3:00 PM [facility], Nurse [facility] [phone] 02/27/2024 2:30 PM Mara Crystal, Community Health Machinery Cleaner; Sylvie Crawford CRNP [facility] [phone] 03/05/2024 9:15 AM DEPARTMENT HELPER 2 GW Cardiac Studies [phone] 03/21/2024 5:30 PM Ingris Madden, ARTURO [facility] [phone] 04/23/2024 11:00 AM (Arrive by 10:45 AM) Luh Garcia CRNP Cardiology [phone] 07/10/2024 2:40 PM (Arrive by 2:25 PM) Claude Mata MD Family Medicine [phone] 07/15/2024 10:00 AM Nurse Rubina [facility] [phone] 10/01/2024 3:20 PM (Arrive by 3:05 PM) Cande Soni MD Nephrology [phone] 12/02/2024 2:20 PM (Arrive by 2:05 PM) Dalila West PA-C Dermatology [phone] Sade Park, ARTURO documented in this encounter Plan of Treatment Upcoming Encounters Date Type Department Care Team (Late st Contact Info) Description 02/23/2024 2:30 PM EDT Home Visit [facility], [facility] [address] [place] [address] Cheryl Carter, RN [address] [place] [address] 02/24/2024 3:00 PM EDT Scheduled Telephone [facility], [facility] [address] [place] [address] [facility], Nurse [facility] [address] [facility] [place] [address] 02/27/2024 2:30 PM EDT Telemedicine [facility], [facility] [address] [facility] [place] [address] Sylvie Crawford CRNP [address] [place] [address] Mara Crystal Community Health Machinery Cleaner [address] [place] [address] [place] [address] 03/05/2024 9:15 AM EDT Cardiac Studies Cardiac Studies, [facility] [address] [facility] [place] [address] 03/21/2024 5:30 PM EDT Home Visit [facility], [facility] [address] [facility] [place] [address] Ingris Madden RN [facility] [place] [address] 04/23/2024 11:00 AM EDT Office Visit Cardiology, [facility] [address] [facility] [place] [address] Luh Garcia CRNP [facility] [place] [address] 07/10/2024 2:40 PM EDT Office Visit Family Medicine [address] [place] [phone] Claude Mata MD [address] [place] [address] [place] [address] 07/15/2024 10:00 AM EDT Nurse Only Ancillary [address] [place] [address] Rubina, Nurse [address] [place] [address] 10/01/2024 3:20 PM EST Office Visit Nephrology [address] [place] [address] Cande Soni MD [facility] [place] [address] 12/02/2024 2:20 PM EST Office Visit Dermatology [address] [place] [address] Dalila West PA-C [address] [place] [address] [place] [address] Health Maintenance Due Date Last Done Comments COVID-19 Vaccine ( season) 2023 01/07/2022, 12/31/2020, 12/03/2020 DTaP,Tdap,and Td Vaccines (2 - Td or Tdap) 10/14/2023 10/14/2013, 07/22/2008 Depression Screening 07/12/2024 07/12/2023 Albumin/Creatinine Ratio 10/05/2024 024, 02/14/2023, 04/07/2022, Additional history exists CKD PHOS USE SMARTSET 79565 10/05/202401/2024, 05/12/2022, 10/05/2020, Additional history exists CKD HGB USE SMARTSET 02555 02/12/202502/12, 02/13/2024, 12/01/2023, Additional history exists Pneumococcal [...] patient or by statute hierarchy) Care Teams Agriculture Technician Relationship Specialty Start Date End Date Claude Mata MD [address] [place] [address] [place] [phone] PCP - General Family Medicine 11/13/23 documented as of this encounter
--- OUTSIDE RECORDS SUMMARY | 2024-02-27 23:48 | External Medical Summary | Summary of Care ---
Author Name Unknown Organization [facility] Address [address] [place] [address] Phone [phone] Care Team Providers Care Solid Fiber Paster Operator Name Role Phone Claude Mata MD Primary Care Provide r Reason for Visit * Reason Onset Date Comments [facility]: Maintenance 02/23/2024 Encounter Details Date Type Department Care Team (Late st Contact Info) Description 02/23/2024 2:30 PM EDT Scheduled Telephone [facility], [facility] [address] [facility] [place] [address] Coordinator, [facility] [address] [facility] [place] [address] Allergies Active Allergy Reactions Criticality Noted Date [...] by mouth in the morning. Active Saline [place] 0.65 % Nasal Solution ([place]) Administer into nostril 1 [place] as needed for Congestion. 60 mL 5 [...] HFA 17 MCG/ACT Inhalation Aerosol Solution (ipratropium)Indicat ions:[place] workers pneumoconiosis (HCC) Inhale 2 Puffs by [...] Overview: Wears 2 LPM via [place], DME: [facility] Chronic rhinitis [...] GENERAL OSTEOARTHROSIS INSOMNIA W SLEEP APNEA [place] workers pneumoconiosis Restrictive lung disease documented as [...] Rotator cuff rupture 05/22/2003 018 LOC PRIM [id number] 05/22/200310/02 Prepatellar bursitis 05/22/2003 015 Inflammation of sacroiliac joint 10/12/2001 10/16/2014 LOC PRIM OSTEOARTH-HAND 10/12/200110/02 Respiratory abnormality 07/04 Overview: ICD-10 update of inactive term Umbilical hernia 05/10/2018 Insomnia 10/16/2014 Overview: ICD-10 update of inactive term COPD, severity to be determined 07/07/2011 Allergic rhinitis 05/10/2018 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 NOS-PHARMACY TECHNICIAN PROGRAM DIRECTOR 07/04 Bilateral carpal tunnel syndrome 05/10/2018 CKD [...] [facility] Telephonic Nurse Follow-Up Call [facility] Subprogram: Focused Care Management (3-9 months) Follow [...] in LLE. Of note, pt's MRI +osteomyelitis. [facility] sent message to pcp to ask about follow up for results. [facility] provided wound care to footulcer. No redness or foul drainage from wound per pt report. Recommendation: Routing to [facility] DTP vs in home visit for today for additional IV lasix? Continue daily wts Low sodium diet Limit fluids <2L per day Follow up calls through the weekend Disposition: Routed to [facility] and[facility]or [facility] for further advice and Weekend call scheduled Future Visits Scheduled: Future Appointments-next 60 days Date/Time Provider Specialty Dept Phone 02/23/2024 2:30 PM Coordinator, Daryl Muniz [facility] [phone] 02/24/2024 3:00 PM Region, Nurse [facility] Julio [facility] [phone] 02/27/2024 2:30 PM Mara Crystal, Community [facility] Cloth Colors Examiner; Sylvie Crawford CRNP [facility] [phone] 03/05/2024 9:15 AM ELECTRICIAN RESEARCH 2 GW Cardiac Studies [phone] 03/21/2024 5:30 PM Ingris Madden, ARTURO [facility] [phone] 04/23/2024 11:00 AM (Arrive by 10:45 AM) Luh Garcia CRNP Cardiology [phone] 07/10/2024 2:40 PM (Arrive by 2:25 PM) Claude Mata MD Family Medicine [phone] 07/15/2024 10:00 AM Nurse Rubina [facility] Ancillary [phone] 10/01/2024 3:20 PM (Arrive by 3:05 PM) Cande Soni MD Nephrology [phone] 12/02/2024 2:20 PM (Arrive by 2:05 PM) Dalila West PA-Karen Dermatology [phone] [place], RN documented in this encounter Plan of Treatment Upcoming Encounters Date Type Department Care Team (Late st Contact Info) Description 02/24/2024 3:00 PM EDT Scheduled Telephone [facility], [facility] [address] [facility] [place] [address] [facility], Nurse [facility] 132 [facility] [place] [address] 02/27/2024 2:30 PM EDT Telemedicine [facility], [facility] [address] [facility] [place] [address] Sylvie Crawford CRNP 132 [facility] [place] [address] Mara Crystal, Community Health [address] [place] [address] 03/05/2024 9:15 AM EDT Cardiac Studies Cardiac Studies, [facility] [address] [place] [address] 03/21/2024 5:30 PM EDT [facility] Visit [facility], [facility] [place] [address] Ingris Madden RN [address] [place] [address] 04/23/2024 11:00 AM EDT Office Visit Cardiology, [facility] [address] [place] [address] Luh Garcia CRNP [address] [place] [address] 07/10/2024 2:40 PM EDT Office Visit Family Medicine [address] [place] [phone] Claude Mata MD [address] [place] [address] [place] [address] 07/15/2024 10:00 AM EDT Nurse Only Ancillary [address] [place] [address] [place], Nurse [facility] [address] [place] [address] [place] [address] 10/01/2024 3:20 PM EST Office Visit Nephrology [address] [place] [address] Cande Soni MD 200 [facility], [place] [address] 12/02/2024 2:20 PM EST Office Visit Dermatology [address] [place] [address] Dalila West PA-C [address] [place] [address] [place] [address] Health Maintenance Due Date Last Done Comments COVID-19 Vaccine (2022-24 season) 2023 01/07/2022, 12/31/2020, 12/03/2020 DTaP,Tdap,and Td Vaccines (2 - Td or Tdap) 10/14/2023 10/14/2013, 07/22/2008 Depression Screening 07/12/2024 07/12/2023 Albumin/Creatinine Ratio 10/05/2024 024, 02/14/2023, 04/07/2022, Additional history exists CKD PHOS USE SMARTSET 54209 10/05/202401/2024, 05/12/2022, 10/05/2020, Additional history exists CKD HGB USE SMARTSET 72724 02/12/202502/12, 02/13/2024, 12/01/2023, Additional history exists Pneumococcal [...] patient or by statute hierarchy) Care Teams Solid Fiber Paster Operator Relationship Specialty Start Date End Date Claude Mata MD [address] [place] [address] [place] [address] PCP - General Family Medicine 11/13/23 documented as of this encounter
--- OUTSIDE RECORDS SUMMARY | 2024-02-27 23:48 | External Medical Summary | Summary of Care ---
Author Name Unknown Organization [facility] Address [address] [place] [address] Phone [phone] Care Team Providers Care Concrete Mason Name Role Phone Claude Mata MD Primary Care Provide r Reason for Visit * Reason Onset Date Comments Test Results 02/23/2024 Encounter Details Date Type Department Care Team (Late st Contact Info) Description 02/23/2024 Telephone Family Medicine [address] [phone] Claude Mata MD [address] [place] [address] [place] [address] Test Results Allergies Active Allergy Reactions Criticality [...] by mouth in the morning. Active Saline [place] 0.65 % Nasal Solution ([place]) Administer into nostril 1 [place] as needed for Congestion. 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 GENERAL OSTEOARTHROSIS INSOMNIA W SLEEP APNEA [place] workers pneumoconiosis Restrictive lung disease documented as [...] Rotator cuff rupture 05/22/2003 018 LOC PRIM [id number] 05/22/200310/02 Prepatellar bursitis 05/22/2003 015 Inflammation of sacroiliac joint 10/12/2001 10/16/2014 LOC PRIM OSTEOARTH-HAND 10/12/200110/02 Respiratory abnormality 07/04 Overview: ICD-10 update of inactive term Umbilical hernia 05/10/2018 Insomnia 10/16/2014 Overview: ICD-10 update of inactive term COPD, severity to be determined 07/07/2011 Allergic rhinitis 05/10/2018 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 NOS-EQUIPMENT MECHANIC SPECIALIST 07/04 Bilateral carpal tunnel syndrome 05/10/2018 CKD [...] 02/23/2024 9:17 AM EDT HH Concerns Harsha MORRIS, Calling from: Shawn Report/Concerns of: osteomyelitis Symptoms: [...] patient with any advice or orders at [phone] Please fax new orders to [phone] documented in this encounter Plan of Treatment Upcoming Encounters Date Type Department Care Team (Late st Contact Info) Description 02/23/2024 2:30 PM EDT [facility]uled [facility], [facility] [address] [place] [address] Coordinator, [facility] [address] [place] [address] 02/23/2024 2:30 PM EDT Home Visit [facility], [facility] [address] [place] [address] Cheryl Carter RN [address] [place] [address] 02/24/2024 3:00 PM EDT Scheduled Telephone [facility], [facility] [address] [place] [address] [facility], Nurse [facility] [address] [place] [address] 02/27/2024 2:30 PM EDT Telemedicine [facility], [facility] [address] [place] [address] Sylvie Crawford CRNP [address] [place] [address] Mara Crystal, [address] [place] [address] 03/05/2024 9:15 AM EDT Cardiac Studies Cardiac Studies, [facility] [address] [place] [address] 03/21/2024 5:30 PM EDT Home Visit [facility], [facility] [address] [place] [address] Ingris Madden RN [address] [place] [address] 04/23/2024 11:00 AM EDT Office Visit Cardiology, [facility] [address] [place] [address] Luh Garcia CRNP [address] [place] [address] 07/10/2024 2:40 PM EDT Office Visit Family Medicine [address] [place] [phone] Claude Mata MD [address] [place] [address] [place] [address] 07/15/2024 10:00 AM EDT Nurse Only Ancillary [address] [place] [address] [place], Nurse [facility] [address] [place] [address] [place] [address] 10/01/2024 3:20 PM EST Office Visit Nephrology [address] [place] [address] [facility] [address] 12/02/2024 2:20 PM EST Office Visit Dermatology [address] [place] [address] Dalila West PA-C [address] [place] [address] [place] [address] Health Maintenance Due Date Last Done Comments COVID-19 Vaccine ( season) 2023 01/07/2022, 12/31/2020, 12/03/2020 DTaP,Tdap,and Td Vaccines (2 - Td or Tdap) 10/14/2023 10/14/2013, 07/22/2008 Depression Screening 07/12/2024 07/12/2023 Albumin/Creatinine Ratio 10/05/2024 024, 02/14/2023, 04/07/2022, Additional history exists CKD PHOS USE SMARTSET 92187 10/05/2024 01/0 01/2024, 05/12/2022, 10/05/2020, Additional history exists CKD HGB USE SMARTSET 01637 02/12/202502/12, 02/13/2024, 12/01/2023, Additional history exists Pneumococcal [...] patient or by statute hierarchy) Care Teams Concrete Mason Relationship Specialty Start Date End Date Claude Mata MD [address] [place] [address] [place] [address] PCP - General Family Medicine 11/13/23 documented as of this encounter
--- OUTSIDE RECORDS SUMMARY | 2024-02-27 23:49 | External Medical Summary | Summary of Care ---
Author Name Unknown Organization [facility] Address [address] [place] [address] Phone [phone] Care Team Providers Care Communications Marketing Intern Name Role Phone Claude Mata MD Primary Care Provide r Reason for Visit * Reason Onset Date Comments [facility]: Maintenance 02/10/2024 Encounter Details Date Type Department Care Team (Late st Contact Info) Description 02/10/2024 Telephone [facility], [facility] [address] [place] [address] Cheryl Carter, RN [address] [place] [address] [facility]: Maintenance Allergies Active Allergy Reactions Criticality Noted Date Comments Trazodone Other (Please comment) High 10/05/2023 Hallucinations documented as of this encounter (statuses as of 02/22/2024) Medications Medication Sig Dispensed Refills Start Date End Date Status ASPIRIN 81 MG PO TABS one tab by mouth daily 0 0 12/11/2006 Active CENTRUM PO TABS 1 tablet a day Activ e oxygen IN GAS Use 2 L/min(Oxygen) as directed at bedtime. Active Vitamin B-12 100 MCG Oral Tablet (vitamin B-12) Take 1 Tablet by mouth in the morning. Active Saline [place] 0.65 % Nasal Solution ([place]) Administer into nostril 1 [place] as needed for Congestion. 60 mL 5 [...] chronic kidney disease (HCC),Coronary artery disease involving [place] coronary artery of [place] heart without angina pectoris Take 1 Tablet [...] HFA 17 MCG/ACT Inhalation Aerosol Solution (ipratropium)Indicat ions:[place] workers pneumoconiosis (HCC) Inhale 2 Puffs by [...] and 1 Tablet before bedtime. 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 06/12/2023 Chronic systolic heart failure 04/10/2023 Interstitial pulmonary disease 04/10/2023 Medical home patient encounter 03/15/2023 Nocturnal hypoxemia 04/08/2022 Overview: Wears 2 LPM via [place], DME: [facility] Chronic rhinitis 04/08/2022 [...] as of this encounter (statuses as of 02/22/2024) Resolved Problems Problem Noted Date Diagnosed Date [...] Rotator cuff rupture 05/22/2003 018 LOC PRIM [id number] 05/22/200310/02 Prepatellar bursitis 05/22/2003 015 Inflammation of sacroiliac joint 10/12/2001 10/16/2014 LOC PRIM OSTEOARTH-HAND 10/12/200110/02 Respiratory abnormality 07/04 Overview: ICD-10 update of inactive term Umbilical hernia 05/10/2018 Insomnia 10/16/2014 Overview: ICD-10 update of inactive term COPD, severity to be determined 07/07/2011 Allergic rhinitis 05/10/2018 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 NOS-HOSPITALITY DIRECTOR 07/04 Bilateral carpal tunnel syndrome 05/10/2018 CKD (chronic kidney disease), stage III 12/11/2018 Benign hypertension with CKD (chronic kidney disease) stage III 02/11/2021 Overview: Per CKD protocol documented as of this encounter (statuses as of 02/22/2024) Immunizations Name Administration Dates Next Due COVID-19 [...] encounter Miscellaneous Notes * Telephone Encounter - Cheryl Carter RN - 02/10/2024 10:51 AM EDT Pt is scheduled to have an MRI for his right foot at [facility] at 430 am on Monday morning 02/11.He is requesting this be changed. He is not able to to make it to this early appt. He is requesting if it can be done in [place], if not, at [facility]. Can you please assist in getting this rescheduled for him? This came from [facility] so we may need order sent from them. Thank you! documented in this encounter Plan of Treatment Upcoming Encounters Date Type Department Care Team (Late st Contact Info) Description 02/22/2024 5:30 PM EDT Home Visit [facility], [facility] [address] [place] [address] Ingris Madden RN [address] [place] [address] 02/23/2024 2:30 PM EDT Scheduled Telephone [facility], [facility] [address] [place] [address] Coordinator, [facility] [address] [place] [address] 02/24/2024 3:00 PM EDT Scheduled Telephone [facility], [facility] [address] [place] [address] Region, Nurse [facility] [address] [place] [address] 02/27/2024 2:30 PM EDT Telemedicine [facility], [facility] [address] [place] [address] Sylvie Crawford CRNP [address] [place] [address] Mara Crystal [facility] Floor Surfacer [address] [place] [address] [place] [address] 03/05/2024 9:15 AM EDT Cardiac Studies Cardiac Studies, [facility] [address] [facility] [place] [address] 03/21/2024 5:30 PM EDT Home Visit [facility], [facility] [place] [address] Ingris Madden, ARTURO 132 [facility] [place] [address] 04/23/2024 11:00 AM EDT Office Visit Cardiology, [facility] [address] [facility] [place] [address] Luh Garcia CRNP 132 [facility] [place] [address] 07/10/2024 2:40 PM EDT Office Visit Family Medicine [address] [place] [phone] Claude Mata MD [address] [place] [address] [place] [address] 07/15/2024 10:00 AM EDT Nurse Only Ancillary [address] [place] [address] [place], Nurse [address] [place] [address] 10/01/2024 3:20 PM EST Office Visit Nephrology [address] [place] [address] Cande Soni MD [address] [place] [address] [place] [address] 12/02/2024 2:20 PM EST Office Visit Dermatology [address] [place] [address] Dalila West PA-C [address] [place] [address] [place] [address] Health Maintenance Due Date Last Done Comments COVID-19 Vaccine ( season) 2023 01/07/2022, 12/31/2020, 12/03/2020 DTaP,Tdap,and Td Vaccines (2 - Td or Tdap) 10/14/2023 10/14/2013, 07/22/2008 Depression Screening 07/12/2024 07/12/2023 Albumin/Creatinine Ratio 10/05/2024 024, 02/14/2023, 04/07/2022, Additional history exists CKD PHOS USE SMARTSET 51293 10/05/202401/2024, 05/12/2022, 10/05/2020, Additional history exists CKD HGB USE SMARTSET 20827 02/12/202502/12, 02/13/2024, 12/01/2023, Additional history exists Pneumococcal [...] patient or by statute hierarchy) Care Teams Communications Marketing Intern Relationship Specialty Start Date End Date Claude Mata MD [address] [place] [address] [place] [address] PCP - General Family Medicine 11/13/23 documented as of this encounter
--- OUTSIDE RECORDS SUMMARY | 2024-02-27 23:49 | External Medical Summary | Summary of Care ---
Author Name Unknown Organization [facility] Address [address] [place] [address] Phone [phone] Care Team Providers Care Granite Fabricator Name Role Phone Claude Mata MD Primary Care Provide r Reason for Visit * Reason Onset Date Comments [facility]: Maintenance 02/20/2024 Encounter Details Date Type Department Care Team (Late st Contact Info) Description 02/20/2024 Telephone [facility], [facility] [address] [facility] [place] [address] [facility], Nurse [facility] [address] [facility] [place] [address] [facility]: Maintenance Allergies Active Allergy Reactions Criticality Noted Date Comments Trazodone Other (Please comment) High 10/05/2023 Hallucinations documented as of this encounter (statuses as of 02/20/2024) Medications Medication Sig Dispensed Refills Start Date End Date Status ASPIRIN 81 MG PO TABS one tab by mouth daily 0 0 12/11/2006 Active CENTRUM PO TABS 1 tablet a day Activ e oxygen IN GAS Use 2 L/min(Oxygen) as directed at bedtime. Active Vitamin B-12 100 MCG Oral Tablet (vitamin B-12) Take 1 Tablet by mouth in the morning. Active Saline [place] 0.65 % Nasal Solution ([place]) Administer into nostril 1 [place] as needed for Congestion. 60 mL 5 [...] chronic kidney disease (HCC),Coronary artery disease involving [place] coronary artery of [place] heart without angina pectoris Take 1 Tablet [...] HFA 17 MCG/ACT Inhalation Aerosol Solution (ipratropium)Indicat ions:[place] workers pneumoconiosis (HCC) Inhale 2 Puffs by [...] as of this encounter (statuses as of 02/20/2024) Active Problems Problem Noted Date Diagnosed Date SOLEDAD (generalized anxiety disorder) 12/01/2023 Coronary artery disease invo lving [place] coronary artery of [place] heart without angina pectoris 12/01/2023 Pulmonary hypertension, unspecified 10/07/2023 HFrEF (heart failure with reduced ejection fract ion) 09/19/2023 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 GENERAL OSTEOARTHROSIS INSOMNIA W SLEEP APNEA [place] workers pneumoconiosis Restrictive lung disease documented as of this encounter (statuses as of 02/20/2024) Resolved Problems Problem Noted Date Diagnosed Date [...] Rotator cuff rupture 05/22/2003 018 LOC PRIM [id number] 05/22/200310/02 Prepatellar bursitis 05/22/2003 015 Inflammation of sacroiliac joint 10/12/2001 10/16/2014 LOC PRIM OSTEOARTH-HAND 10/12/200110/02 Respiratory abnormality 07/04 Overview: ICD-10 update of inactive term Umbilical hernia 05/10/2018 Insomnia 10/16/2014 Overview: ICD-10 update of inactive term COPD, severity to be determined 07/07/2011 Allergic rhinitis 05/10/2018 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 NOS-JUDGE 07/04 Bilateral carpal tunnel syndrome 05/10/2018 CKD (chronic kidney disease), stage III 12/11/2018 Benign hypertension with CKD (chronic kidney disease) stage III 02/11/2021 Overview: Per CKD protocol documented as of this encounter (statuses as of 02/20/2024) Immunizations Name Administration Dates Next Due COVID-19 [...] encounter Miscellaneous Notes * Telephone Encounter - Genna Casillas, MARIAMA - 02/20/2024 9:20 AM EDT Images from the original note were not included. [facility] Remote Patient Monitoring Able to contact patient: Trigger type: Abnormal reading(s): AMC (Advanced Monitored Caregiving): Scale: Baseline weight: 175-177 lbs Trigger weight: 175.3 lbs; weight increased 5.5 lbs in 7 day(s) Trigger priority per AMC: high Patient takes diuretic medication: Yes, reviewed current diuretic use: Name of medication: Torsemide Dose: 80 mg Frequency: daily Symptom review: Edema: ABD and right foot SOB: increased SOB Diet Reviewed: Yes. Patient has had any foods high in sodium: No Fluid Intake Reviewed: Yes. Patient is on a fluid restriction: Yes, restriction amount in milliliters or liters: 2 Adherent to restriction: Yes Self-Management Plan Reviewed: Risk assignment recommendation: Moderate risk findings (check as applicable): [] Moderate trigger priority on AMC [] Confirmed tympanic equivalent temperature 100.4-101.9 F one hour post administration of antipyretic [] Weight gain of 2.1-4.9 lbs over 1-2 days [] Confirmed new sustained resting HR greater than 105 WITHOUT symptoms [] Weight gain of greater than or equal to 5 lbs in 5 days WITHOUT heart failure symptoms [] Confirmed new sustained resting HRT less than 60 WITHOUT symptoms [] Moderate heart failure symptoms [] Confirmed SBP less than 90 WITHOUT symptoms [] Moderate COPD symptoms [] Confirmed SBP greater than 170 WITHOUT symptoms [] Confirmed new SpO2 90-93% [] Confirmed DBP greater than 90 WITHOUT symptoms High risk findings (check as applicable): [] High trigger priority on AMC [] Confirmed tympanic equivalent temperature greater than or equal to 102 F on hour post administration of antipyretic [] Weight gain of greater than or equal to 5 lbs over 1-2 days [] Confirmed tympanic equivalent temperature less than 96 F [] Weight gain of greater than or equal to 5 lbs in 5 days WITH heart failure symptoms [] Confirmednew sustained resting HR greater than 105 WITH symptoms [] Severe heart failure symptoms [] Confirmed new sustained resting HR less than 60 WITH symptoms [] Severe COPD symptoms [] Confirmed SBP less than 90 WITH symptoms [] Confirmed new SpO2 less than 90% [] Confirmed SBP greater than 170 WITH symptoms [] Confirmed DBP greater than 90 WITH symptoms Additional risk selection justification: [facility] [place] for weight increase of 5.5 lbs in 7 days Call to pt reports in creased SOB. States he has had to wear his O2 all day the last two days. Pt wearing 2 L. Reports edema in right foot and ABD. States when he sits in his recliner ABD pushes up and he is having a hard time breathing. Pt states he eats the same thing every day and avoids salt No missed doses of diuretic Torsemide in EPIC is incorrect pt is taking Torsemide 20 mg tablets taking 4 daily for a total of 80 mg a day No DTP in chart Pt was admitted at [facility] from 01/29-02/06 Will forward to care team for further direction. Overall risk and identified plan: High risk: Route to RNCM (Registered Nurse Forest Resource Specialist) and Advance Practitioner Route to RMC (Remote Medical Coordinator) documented in this encounter Plan of Treatment Upcoming Encounters Date Type Department Care Team (Late st Contact Info) Description 02/21/2024 12:30 PM EDT Imaging Radiology [address] 132 [place] [address] 02/22/2024 5:30 PM EDT [facility] Visit [facility], [facility] 132 [place] [address] Ingris Madden RN 132 [place] [address] 02/27/2024 2:30 PM EDT Telemedicine [facility], [facility] 132 [place] [address] Sylvie Crawford CRNP 132 [place] [address] Bonilla, Mara, Community [facility] Global Head [employer] [address] [place] [address] [place] [address] 03/05/2024 9:15 AM EDT Cardiac Studies Cardiac Studies, [facility] [place] [address] 04/23/2024 11:00 AM EDT Office Visit Cardiology, [facility] 132 [facility] [place] [address] Luh Garcia CRNP 132 [facility] [place] [address] 07/10/2024 2:40 PM EDT Office Visit Family Medicine [address] [place] [phone] Claude Mata MD [address] [place] [address] [place] [address] 07/15/2024 10:00 AM EDT Nurse Only Ancillary [address] [place] [address] Jenn[place]ley, Nurse [address] [place] [address] 10/01/2024 3:20 PM EST Office Visit Nephrology [address] [place] [address] Cande Soni MD 200 [facility] [place] [address] 12/02/2024 2:20 PM EST Office Visit Dermatology [address] [place] [address] Dalila West PA-C [address] [place] [address] [place] [address] Health Maintenance Due Date Last Done Comments COVID-19 Vaccine (4 season) 2023 01/07/2022, 12/31/2020, 12/03/2020 DTaP,Tdap,and Td Vaccines (2 - Td or Tdap) 10/14/2023 10/14/2013, 07/22/2008 Depression Screening 07/12/2024 07/12/2023 Albumin/Creatinine Ratio 10/05/2024 024, 02/14/2023, 04/07/2022, Additional history exists CKD PHOS USE SMARTSET 74298 10/05/202401/2024, 05/12/2022, 10/05/2020, Additional history exists CKD HGB USE SMARTSET 28579 02/12/202502/12, 02/13/2024, 12/01/2023, Additional history exists Pneumococcal [...] patient or by statute hierarchy) Care Teams Granite Fabricator Relationship Specialty Start Date End Date Claude Mata MD [address] [place] [address] [place] [phone] PCP - General Family Medicine 11/13/23 documented as of this encounter
--- OUTSIDE RECORDS SUMMARY | 2024-02-27 23:49 | External Medical Summary | Summary of Care ---
Author Name Unknown Organization [facility] Address [address] [place] [address] Phone [phone] Care Team Providers Care Produce Production Team Member Name Role Phone Claude Mata MD Primary Care Provide r Encounter Details Date Type Department Care Team (Late st Contact Info) Description 02/20/2024 Population Health External Data Unspecified Department Allergies Active Allergy Reactions Criticality Noted Date Comments Trazodone Other (Please comment) High 10/05/2023 Hallucinations documented as of this encounter (statuses as of 02/21/2024) Medications Medication Sig Dispensed Refills Start Date End Date Status ASPIRIN 81 MG PO TABS one tab by mouth daily 0 0 12/11/2006 Active CENTRUM PO TABS 1 tablet a day Activ e oxygen IN GAS Use 2 L/min(Oxygen) as directed at bedtime. Active Vitamin B-12 100 MCG Oral Tablet (vitamin B-12) Take 1 Tablet by mouth in the morning. Active Saline [place] 0.65 % Nasal Solution ([place]) Administer into nostril 1 [place] as needed for Congestion. 60 mL 5 [...] chronic kidney disease (HCC),Coronary artery disease involving jena coronary artery of jena heart without angina pectoris Take 1 Tablet [...] HFA 17 MCG/ACT Inhalation Aerosol Solution (ipratropium)Indicat ions:[place] workers pneumoconiosis (HCC) Inhale 2 Puffs by [...] :HFrEF (heart failure with reduced ejection fraction) ([facility]) Alternate 50 mg, with 100 mg, daily. [...] as of this encounter (statuses as of 02/21/2024) Active Problems Problem Noted Date Diagnosed Date SOLEDAD (generalized anxiety disorder) 12/01/2023 Coronary artery disease invo lving jena coronary artery of jena heart without angina pectoris 12/01/2023 Pulmonary hypertension, [...] appointment. GENERAL OSTEOARTHROSIS INSOMNIA W SLEEP APNEA [place] workers pneumoconiosis Restrictive lung disease documented as of this encounter (statuses as of 02/21/2024) Resolved Problems Problem Noted Date Diagnosed Date [...] Rotator cuff rupture 05/22/2003 018 LOC PRIM [id number] 05/22/200310/02 Prepatellar bursitis 05/22/2003 015 Inflammation of sacroiliac joint 10/12/2001 10/16/2014 LOC PRIM OSTEOARTH-HAND 10/12/200110/02 Respiratory abnormality 07/04 Overview: ICD-10 update of inactive term Umbilical hernia 05/10/2018 Insomnia 10/16/2014 Overview: ICD-10 update of inactive term COPD, severity to be determined 07/07/2011 Allergic rhinitis 05/10/2018 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 NOS-DEVOPS DEVELOPER 07/04 Bilateral carpal tunnel syndrome 05/10/2018 CKD (chronic kidney disease), stage III 12/11/2018 Benign hypertension with CKD (chronic kidney disease) stage III 02/11/2021 Overview: Per CKD protocol documented as of this encounter (statuses as of 02/21/2024) Immunizations Name Administration Dates Next Due COVID-19 [...] PM EDT Home Visit [facility], [facility] [address] [place] [address] Ingris Madden, ARTURO [address] [place] [address] 02/27/2024 2:30 PM EDT Telemedicine [facility], [facility] [address] [place] [address] Sylvie Crawford CRNP [address] [place] [address] Mara Crystal, Community Health Eyeglass Fitter [address] [place] [address] [place] [address] 03/05/2024 9:15 AM EDT Cardiac Studies Cardiac Studies, [facility] 132 [facility] [place] [address] 04/23/2024 11:00 AM EDT Office Visit Cardiology, [facility] 132 [facility] [place] [address] Luh Garcia CRNP 132 [facility] [place] [address] 07/10/2024 2:40 PM EDT Office Visit Family Medicine [address] [place] [phone] Claude Mata MD [address] [place] [address] [place] [address] 07/15/2024 10:00 AM EDT Nurse Only Ancillary [address] [place] [address] Rubina, Nurse [address] [place] [address] 10/01/2024 3:20 PM EST Office Visit Nephrology [address] [place] [address] Cande Soni MD 200 [facility] [place] [address] 12/02/2024 2:20 PM EST Office Visit Dermatology [address] [place] [address] Dalila West PA-C [address] [place] [address] [place] [address] Health Maintenance Due Date Last Done Comments COVID-19 Vaccine ( season) 2023 01/07/2022, 12/31/2020, 12/03/2020 DTaP,Tdap,and Td Vaccines (2 - Td or Tdap) 10/14/2023 10/14/2013, 07/22/2008 Depression Screening 07/12/2024 07/12/2023 Albumin/Creatinine Ratio 10/05/2024 024, 02/14/2023, 04/07/2022, Additional history exists CKD PHOS USE SMARTSET 47850 10/05/202401/2024, 05/12/2022, 10/05/2020, Additional history exists CKD HGB USE SMARTSET 59811 02/12/202502/12, 02/13/2024, 12/01/2023, Additional history exists Pneumococcal [...] patient or by statute hierarchy) Care Teams Produce Production Team Member Relationship Specialty Start Date End Date Claude Mata MD [address] [place] [address] [place] [phone] PCP - General Family Medicine 11/13/23 documented as of this encounter
--- OUTSIDE RECORDS SUMMARY | 2024-02-27 23:49 | External Medical Summary | Summary of Care ---
Author Name Unknown Organization [facility] Address [address] [place] [address] Phone [phone] Care Team Providers Care Traffic Workforce Representative Name Role Phone Claude Mata MD Primary Care Provide r Reason for Visit * Reason Onset Date Comments [facility]: Maintenance 02/20/2024 Encounter Details Date Type Department Care Team (Late st Contact Info) Description 02/20/2024 Telephone [facility], [facility] [address] [facility] [place] [address] [facility], Nurse [facility] [address] [place] [facility] [place] [address] [facility]: Maintenance Allergies Active Allergy [...] by mouth in the morning. Active Saline [place] 0.65 % Nasal Solution ([place]) Administer into nostril 1 [place] as needed for Congestion. 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 States his currentRx was from when he was alternating 50 mg and 100 mg of Torsemide. Will forward to care team 24 hr f/u calls scheduled Pt has [facility] scheduled for 02/21 48 hrs from now * Addendum Note - Tuan Mercer PA-C - 02/20/2024 11:14 AM EDTAddended by: TUAN MERCER on: 02/20/2024 11:14 AM Modules accepted: Orders * Addendum Note - Tuan Mercer PA-C - 02/20/2024 11:13 AM EDTAddended by: TUAN MERCER on: 02/20/2024 11:13 AM Modules accepted: Orders * Telephone Encounter - Tuan Mercer PA-C - 02/20/2024 11:00 AM EDT [facility] [place] Remote Medical Command [facility] [place] Phone Encounter Thank you for your assistance in the care of this patient today. Reviewed phone message regarding the patient's weight and [facility] findings. Please see below for the response to the trigger: Primary team: Please note that the patient is baseline weight is recorded is 175-177 lb however today the pain she weighing in at 175 has increased abdominal and right lower extremity edema as well as increased shortness of breath. Suggestion: Patient's baseline weight may need to be adjusted. Given that the patient is symptomatic and this is a 5 lb weight gain I do recommend a DTP. Patient is currently taking torsemide 80 mg daily as is normal dose. Please have the patient increase his torsemide to 80 mg twice daily x3 days with a BMP to be collected on day 4. Last potassium was 4.0 on the 14 of this month. Patient's GFR is in the chronic renal failure stage. I would have Ned Elliott continue to weigh on a daily basis and report any changes in symptoms to [facility], their PCP or their cardiology office. Thank you in advance, I appreciate it. Tuan Mercer PA-C Advanced Practitioner - [facility] .02/20/2024 This note was prepared with the help of fluency and if there is any mis-spelled words , sentences or something which doesn't represent the content of the subject that could be technical error and please refer to the author for clarification. * Telephone Encounter - Genna Casillas LPN - 02/20/2024 9:20 AM EDT Images from [...] 90 WITH symptoms Additional risk selection justification: [facility] [place] for [...] DTP in chart Pt was admitted at [facility] from 01/29-02/06 Will forward to care team for further direction. Overall risk and identified plan: High risk: Route to RNCM (Registered Nurse Toy Maker) and Advance Practitioner Route to [facility] (Remote Medical Coordinator) documented in this encounter Plan of Treatment Upcoming Encounters Date Type Department Care Team (Late st Contact Info) Description 02/21/2024 12:15 PM EDT Scheduled Telephone [facility], [place] [address] [address] [place] [address] Coordinator, [facility] [address] [place] [address] 02/21/2024 12:30 PM EDT [facility] [address] [place] [address] 02/22/2024 5:30 PM EDT Home Visit [facility], [facility] [address] [place] [address] Ingris Madden RN 132 [facility] [place] [address] 02/27/2024 2:30 PM EDT Telemedicine [facility], [facility] [address] [place] [address] Sylvie Crawford CRNP 132 [facility] [place] [address] Mara Crystal [facility] [address] [place] [address] 03/05/2024 9:15 AM EDT Cardiac Studies Cardiac Studies, [facility] [place] [address] 04/23/2024 11:00 AM EDT Office Visit Cardiology, [facility] [place] [address] Luh Garcia CRNP [address] [place] [address] 07/10/2024 2:40 PM EDT Office Visit Family Medicine [address] [place] [phone] Claude Mata MD [address] [place] [address] [place] [address] 07/15/2024 10:00 AM EDT Nurse Only Ancillary [address] [place] [address] Rubina, Nurse [facility] [address] [place] [address] [place] [address] 10/01/2024 3:20 PM EST Office Visit Nephrology [address] [place] [address] Cande Soni MD 200 [facility] [address] 12/02/2024 2:20 PM EST Office Visit Dermatology [address] [place] [address] Dalila West PA-C [address] [place] [address] [place] [address] Scheduled Orders Name Type Priority Associated Diagnoses Orde r Schedule BASIC METABOLIC PANEL Lab Routine HFrEF (heart failure with reduced ejection fraction) (HCC) Expected: 02/23/2024 (Approximate), Expires: 02/19/2025 Health Maintenance Due Date Last Done Comments COVID-19 Vaccine ( season) 2023 01/07/2022, 12/31/2020, 12/03/2020 DTaP,Tdap,and Td Vaccines (2 - Td or Tdap) 10/14/2023 10/14/2013, 07/22/2008 Depression Screening 07/12/2024 07/12/2023 Albumin/Creatinine Ratio 10/05/20242 024, 02/14/2023, 04/07/2022, Additional history exists CKD PHOS USE SMARTSET 74496 10/05/2024/0 01/2024, 05/12/2022, 10/05/2020, Additional history exists CKD HGB USE SMARTSET 73781 02/12/202502/12, 02/13/2024, 12/01/2023, Additional history exists Pneumococcal [...] Primary documented in this encounter Advance Directives * [...] patient or by statute hierarchy) Care Teams Traffic Workforce Representative Relationship Specialty Start Date End Date Claude Mata MD [address] [place] [address] [place] [phone] PCP - General Family Medicine 11/13/23 documented as of this encounter
--- OUTSIDE RECORDS SUMMARY | 2024-02-27 23:49 | External Medical Summary ---
Author Name Unknown Address Unknown Organization K01:[facility] [address] [facility] [address] [place] [address] Laboratory Report Ordering Provider Test Date Status PETRA MOCTEZUMA 02/23/2024 08:11:14 Final Observation Date Value Abnormality Reference (Units ) Status BUN 02/23/2024 08:11:14 61 Above high normal 6-20 (mg/dL) Final Creatinine 02/23/2024 08:11:14 2.3 Above high normal 0.6-1.2 (mg/dL) Final Glomerular filtration rate/1.73 sq M.predicted [Volume Rate/Area] in Serum, Plasma or Blood by Creatinine-based formula (CKD-EPI) 02/23/2024 08:11:14 27 Below low normal >=60 (mL/min) Final eGFR is calculated based on the CKD-EPI 2020 equation Sodium 02/23/2024 08:11:14 133 Below low normal 135 -146 (mmol/L) Final Potassium 02/23/2024 08:11:14 3.4 Below low normal 3.5 -5.1 (mmol/L) Final Cl 02/23/2024 08:11:14 89 Below low normal 98- 107 (mmol/L) Final CO2 02/23/2024 08:11:14 32 22-32 (mmo l/L) Final Anion gap 02/23/2024 08:11:14 12 7-15 (mmol /L) Final Glucose 02/23/2024 08:11:14 161 Above high normal 70 -120 (mg/dL) Final Calcium 02/23/2024 08:11:14 9.7 8.4-10.2 ( mg/dL) Final Performing Location [facility] [place] [address] [place] [address]
--- OUTSIDE RECORDS SUMMARY | 2024-02-27 23:49 | External Medical Summary | Summary of Care ---
Author Name Unknown Organization [facility] Address [address] [place] [address] Phone [phone] Care Team Providers Care Sales Donor Recruitment Representative Name Role Phone Claude Mata MD Primary Care Provide r Encounter Details Date Type Department Care Team (Late st Contact Info) Description 02/22/2024 Orders Only [facility], [facility] [address] [facility] [place] [address] Margarito Raymundo MD [address] [facility] [place] [address] HFrEF (heart failure with reduced ejection fraction) ([facility])* Allergies Active Allergy Reactions Criticality Noted Date [...] by mouth in the morning. Active Saline Burnside 0.65 % Nasal Solution ([place]) Administer into nostril 1 Burnside as needed for Congestion. 60 mL 5 [...] chronic kidney disease (HCC),Coronary artery disease involving [place] coronary artery of [place] heart without angina pectoris Take 1 Tablet [...] HFA 17 MCG/ACT Inhalation Aerosol Solution (ipratropium)Indicat ions:[place] workers pneumoconiosis (HCC) Inhale 2 Puffs by [...] :HFrEF (heart failure with reduced ejection fraction) ([facility]) Alternate 50 mg, with 100 [...] failure managing provider. 1 Each 02/20/2024 Active Hospital, Clinic, or Other Facility Administered Medication Ordered Dose Route Frequency Start Date End Date Status Furosemide (Lasix) inj 100 mgIndications:HFrEF (heart failure with reduced ejection fraction) ([facility]) 100 mg IV PUSH ONCE 02/22/2024 02/23/2024 Active documented as of this encounter (statuses as of 02/22/2024) Active Problems Problem Noted Date Diagnosed Date SOLEDAD (generalized anxiety disorder) 12/01/2023 Coronary artery disease invo lving conf[place]erated col[place] coronary artery of [place] heart without angina pectoris 12/01/2023 Pulmonary hypertension, unspecified 10/07/2023 HFrEF (heart failure with reduced ejection fract ion) 09/19/2023 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 GENERAL OSTEOARTHROSIS INSOMNIA W SLEEP APNEA [place] workers pneumoconiosis Restrictive lung disease documented as [...] Rotator cuff rupture 05/22/2003 018 LOC PRIM [id number] 05/22/200310/02 Prepatellar bursitis 05/22/2003 015 Inflammation of sacroiliac joint 10/12/2001 10/16/2014 LOC PRIM OSTEOARTH-HAND 10/12/200110/02 Respiratory abnormality 07/04 Overview: ICD-10 update of inactive term Umbilical hernia 05/10/2018 Insomnia 10/16/2014 Overview: ICD-10 update of inactive term COPD, severity to be determined 07/07/2011 Allergic rhinitis 05/10/2018 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 NOS-DATA COLLECTION INTERVIEWER 07/04 Bilateral carpal tunnel syndrome 05/10/2018 CKD [...] Home, [facility] [address] [place] [address] Ingris Madden RN [address] [place] [address] 02/27/2024 2:30 PM EDT Telemedicine [facility], [facility] [address] [address] Sylvie Crawford CRNP [address] [place] [address] Mara Crystal, Community Health Braiding Machine Tender [address] [place] [address] [place] [address] 03/05/2024 9:15 AM EDT Cardiac Studies Cardiac Studies, [facility] [address] [address] 04/23/2024 11:00 AM EDT Office Visit Cardiology, [facility] [address] [address] Luh Garcia CRNP [address] [place] [address] 07/10/2024 2:40 PM EDT Office Visit Family Medicine [address] [place] [phone] Claude Mata MD [address] [place] [address] [place] [address] 07/15/2024 10:00 AM EDT Nurse Only Ancillary [address] [place] [address] [place], Nurse Annual Wellness [address] [place] [address] [place] [address] 10/01/2024 3:20 PM EST Office Visit Nephrology [address] [place] [address] [facility] [address] 12/02/2024 2:20 PM EST Office Visit Dermatology [address] [place] [address] Dalila West PA-C [address] [place] [address] [place] [address] Health Maintenance Due Date Last Done Comments COVID-19 Vaccine ( season) 2023 01/07/2022, 12/31/2020, 12/03/2020 DTaP,Tdap,and Td Vaccines (2 - Td or Tdap) 10/14/2023 10/14/2013, 07/22/2008 Depression Screening 07/12/2024 07/12/2023 Albumin/Creatinine Ratio 10/05/2024 024, 02/14/2023, 04/07/2022, Additional history exists CKD PHOS USE SMARTSET 48282 10/05/2024 01/0 01/2024, 05/12/2022, 10/05/2020, Additional history exists CKD HGB USE SMARTSET 32529 02/12/202502/12, 02/13/2024, 12/01/2023, Additional history exists Pneumococcal [...] or by statute hierarchy) Care Teams Sales Donor Recruitment Representative Relationship Specialty Start Date End Date Claude Mata MD [address] [place] [address] [place] [address] PCP - General Family Medicine 11/13/23 documented as of this encounter
--- OUTSIDE RECORDS SUMMARY | 2024-02-27 23:49 | External Medical Summary ---
Author Name Unknown Address Unknown Organization K01:[facility] - [address] [facility] [address] Laboratory Report Ordering Provider Test Date Status SHEREEN GARIBAY 02/23/2024 08:11:14 Final Observation Date Value Abnormality Reference (Units ) Status SYNC LEUKOCYTES IN BLOOD BY AUTOMATED COUNT 02/23/2024 08:11:14 10.42 4.00-10.80 (K/uL) Final Segs 02/23/2024 08:11:14 64.7 40.0-75.0 (%) Final Lymphs % 02/23/2024 08:11:14 8.1 Below low normal 18.0-42.0 (%) Final Monos 02/23/2024 08:11:14 8.6 1.0-11.0 (%) Final Eosinophils 02/23/2024 08:11:14 17.7 Above high normal 0.0-6.0 (%) Final Basos 02/23/2024 08:11:14 0.6 0.0-2.0 (%) Final Immature Granulocyte, Percent 02/23/2024 08:11:14 0.3 0.0-2.0 (%) Final Absolute Segs 02/23/2024 08:11:14 6.75 1.80-7.70 (K/uL) Final Lymphs, absolute 02/23/2024 08:11:14 0.84 Below low normal 1.00-4.80 (K/ul) Final Monos, Abs 02/23/2024 08:11:14 0.90 0.00-1.10 (K/uL) Final Eos, Abs 02/23/2024 08:11:14 1.84 Above high normal 0.00-0.70 (K/uL) Final Basos, Abs 02/23/2024 08:11:14 0.06 0.00-0.20 (K/uL) Final Immature Granulocytes, Number 02/23/2024 08:11:14 0.03 0.00-0.20 (K/uL) Final Performing Location [facility] - [facility] [address]. [facility] [address]
--- OUTSIDE RECORDS SUMMARY | 2024-02-27 23:49 | External Medical Summary | Summary of Care ---
Author Name Unknown Organization [facility] Address [address] [place] [address] Phone [phone] Care Team Providers Care Cook Seafood Name Role Phone Claude Mata MD Primary Care Provide r Reason for Visit * Reason Onset Date Comments [facility]: Maintenance 02/21/2024 Encounter Details Date Type Department Care Team (Late st Contact Info) Description 02/21/2024 12:15 PM EDT Scheduled Telephone [facility], [facility] [address] [facility] [place] [address] Coordinator, [facility] [address] [facility] [place] [address] Allergies Active Allergy Reactions Criticality Noted Date [...] by mouth in the morning. Active Saline Mcallister 0.65 % Nasal Solution ([place]) Administer into nostril 1 Mcallister as needed for Congestion. 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 [facility] Telephonic Nurse Follow-Up Call [facility] Subprogram: Focused Care Management (3-9 months) Follow Up Call Type: 24 hour follow up Acute issue requiring follow-up call: Other: DTP Objective: 02/13/2024 1:47 PM 02/10/2024 10:58 AM 01/12/2024 2:54 PM 12/21/2023 11:05 AM 12/05/2023 1:57 PM VITALS ACROSS ENCOUNTERS BP 116/56 134/64 120/60 118/60 136/70 Pulse 67 75 67 83 84 Weight 81.2 kg 76.2 kg 81.8 kg 83 kg 83.5 kg BMI 22.83 kg/m2 21.41 kg/m2 22.99 kg/m2 23.34 kg/m2 23.47 kg/m2 Remote Patient Monitoring: AMC Scale: daily readings Oxygen Needs: NO CHANGE from baseline supplemental oxygen needs DME Needs: NO DME needs identified Medications: Current DTP: Other: 80 mg Torsemide BID x 3 days Subjective: Condition Status: No change in symptoms Current Concerns: Spoke to patient and he feels about the same as yesterday had some SOB earlier and the swelling is about the same in the LE last BM yesterday denies chest pain or palpitations Watching his salt sodium intake Disposition: RNCM visit scheduled Future Visits Scheduled: Future Appointments-next 60 days Date/Time Provider Specialty Dept Phone 02/22/2024 5:30 PM Ingris Madden RN [facility] [phone] 02/27/2024 2:30 PM Mara Crystal Community Health Sweater Operator; Sylvie Crawford CRNP [facility] [phone] 03/05/2024 9:15 AM PANEL LAY UP WORKER 2 GW Cardiac Studies [phone] 04/23/2024 11:00 AM (Arrive by 10:45 AM) Luh Garcia CRNP Cardiology [phone] 07/10/2024 2:40 PM (Arrive by 2:25 PM) Claude Mata MD Family Medicine [phone] 07/15/2024 10:00 AM Rubina, Nurse Annual Wellness Ancillary [phone] 10/01/2024 3:20 PM (Arrive by 3:05 PM) Cande Soni MD Nephrology [phone] 12/02/2024 2:20 PM (Arrive by 2:05 PM) Dalila West PA-C Dermatology [phone] Evette Mulligan LPN documented in this encounter Plan of Treatment Upcoming Encounters Date Type Department Care Team (Late st Contact Info) Description 02/22/2024 5:30 PM EDT Home Visit [facility], [facility] [address] [address] Ingris Madden, RN [address] [place] [address] 02/27/2024 2:30 PM EDT Telemedicine [facility], [facility] [address] [place] [address] Sylvie Crawford CRNP [address] [place] [address] Mara Crystal, Community Health Sweater Operator [address] [place] [address] [place] [address] 03/05/2024 9:15 AM EDT Cardiac Studies Cardiac Studies, [facility] [address] [facility] [place] [address] 04/23/2024 11:00 AM EDT Office Visit Cardiology, [facility] [address] [facility] [place] [address] Luh Garcia CRNP [address] [facility] [place] [address] 07/10/2024 2:40 PM EDT Office Visit Family Medicine [address] [place] [phone] Claude Mata MD [address] [place] [address] [place] [address] 07/15/2024 10:00 AM EDT Nurse Only Ancillary [address] [place] [address] [place], Nurse [address] [place] [address] 10/01/2024 3:20 PM EST Office Visit Nephrology [address] [place] [address] Cande Soni MD [address] [facility] [place] [address] 12/02/2024 2:20 PM EST Office Visit Dermatology [address] [place] [address] Dalila West PA-C [address] [place] [address] [place] [address] Health Maintenance Due Date Last Done Comments COVID-19 Vaccine (2022-24 season) 2023 01/07/2022, 12/31/2020, 12/03/2020 DTaP,Tdap,and Td Vaccines (2 - Td or Tdap) 10/14/2023 10/14/2013, 07/22/2008 Depression Screening 07/12/2024 07/12/2023 Albumin/Creatinine Ratio 10/05/2024 024, 02/14/2023, 04/07/2022, Additional history exists CKD PHOS USE SMARTSET 14741 10/05/2024 01/0 01/2024, 05/12/2022, 10/05/2020, Additional history exists CKD HGB USE SMARTSET 16607 02/12/202502/12, 02/13/2024, 12/01/2023, Additional history exists Pneumococcal [...] patient or by statute hierarchy) Care Teams Cook Seafood Relationship Specialty Start Date End Date Claude Mata MD [address] [place] [address] [place] [phone] PCP - General Family Medicine 11/13/23 documented as of this encounter
--- OUTSIDE RECORDS SUMMARY | 2024-02-27 23:49 | External Medical Summary | Summary of Care ---
Author Name Unknown Organization [facility] Address [address] [place] [address] Phone [phone] Care Team Providers Care Salesperson Floor Coverings Name Role Phone Claude Mata MD Primary Care Provide r Reason for Visit * Reason Comments [facility]: Maintenance Encounter Details Date Type Department Care Team (Late st Contact Info) Description 02/22/2024 5:30 PM EDT Home Visit [facility], [facility] [address] [facility] [place] [address] Ingris Madden, ARTURO [address] [facility] [place] [address] Allergies Active Allergy Reactions Criticality Noted Date [...] by mouth in the morning. Active Saline Jamison 0.65 % Nasal Solution ([place]) Administer into nostril 1 Jamison as needed for Congestion. 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 [facility] [address] Magistrate Visit Date: 02/22/2024 Time: 2:42 PM Name: Ned Elliott : 1935 Current Concerns: Patient seen for follow up- phone call to patient to make aware this nurse was on her way- he reports that he is not doing good- having trouble with shortness of breath. On arrival, patient wearing oxygen- states he normally doesn't need his oxygen during the day. Started DTP Monday- Torsemide 80mg BID- last dose this evening. Drop of 1.3lb thus far States it really didn't help him much. + abdominal bloating +1 pitting edema top of right foot Followed by wound clinic Dressing change to right outer foot- had MRI yesterday Wound dressing daily- cleanse with Nss- Aquacel AG covered with optifoam VS wnl Lungs clear but diminished Sob above baseline- with requiring oxygen during the day Voiding without difficulty Bowels wnl Appetite fair today Taking fluids Problems/Symptoms: Review of Systems Constitutional: Positive for activity change. HENT: Negative. Respiratory: Positive for shortness of breath. Cardiovascular: Positive for leg swelling. Gastrointestinal: Positive for abdominal distention. Musculoskeletal: Positive for gait problem. Skin: Positive for wound (right outer foot). Hematological: Negative. Psychiatric/Behavioral: Negative. Physical Exam: BP 120/68 (BP Site: Right Arm, BP Position: Sitting, BP Cuff Size: Regular) | Pulse 68 | Temp 36.6 C (97.8 F) (Tympanic) | Resp 18 | Wt 78.9 kg (174 lb) | SpO2 98% | BMI 22.19 kg/m | BSA 2.03 m Pain 0 Physical Exam Constitutional: Appearance: Normal appearance. Cardiovascular: Rate and Rhythm: Normal rate and regular rhythm. Pulses: Normal pulses. Heart sounds: Normal heart sounds. Pulmonary: Effort: Pulmonary effort is normal. Breath sounds: Normal breath sounds. Abdominal: General: Bowel sounds are normal. Palpations: Abdomen is soft. Musculoskeletal: Right lower leg: Edema present. Skin: General: Skin is warm and dry. Capillary Refill: Capillary refill takes 2 to 3 seconds. Neurological: General: No focal deficit present. Mental Status: He is alert and oriented to person, place, and time. Psychiatric: Mood and Affect: Mood normal. Behavior: Behavior normal. [facility] Completed this Visit: No. No falls since last visit Treatment/Plan: IV lasix 100mg today- IV discontinued following administration Resume Torsemide to 80mg daily tomorrow To lab for blood work- son to take Low na diet AMC scales daily Continue medications as prescribed Keep all upcoming MD appointments Fall precautions Fluids encouraged Follow up phone call tomorrow- lasix effectiveness Home Interventions Provided: IV Interventions: Diuretic Consulted PCP/Specialist Reinforced current Plan of Care, including self-management and medication regimen Patient's Goals of Care: Better breathing Get my heart better Get a stent in my heart Patient's 'Red Flags': Wt gain of 3 lbs in 24 hrs or 5 lbs in one week More SOB Worsening edema or abd bloating Patient Needs to Remember: Call [facility] with any medical concerns/ red flags Referrals Needed: N/a Follow Up: Is there cellular connectivity/connectivity in the home? Yes Does the patient have internet in the home? No Patient encouraged to call the intake phone number for all urgent but not emergent issues. Scheduled to follow up with patient in 1 day via phone. Ingris Bates, ARTURO 02/22/2024 2:42 PM documented in this encounter Plan of Treatment Upcoming Encounters Date Type Department Care Team (Late st Contact Info) Description 02/23/2024 2:30 PM EDT Scheduled Telephone [facility], [facility] [address] [place] [address] Coordinator, [place] [address] [address] [place] [address] 02/24/2024 3:00 PM EDT Scheduled Telephone [facility], [facility] [address] [address] Region, Nurse [place] [address] [address] [place] [address] 02/27/2024 2:30 PM EDT Telemedicine [facility], [facility] [address] [place] [address] Sylvie Crawford CRNP [address] [place] [address] Mara Crystal, Community Health Bacon Skin Lifter [address] [place] [address] [place] [address] 03/05/2024 9:15 AM EDT Cardiac Studies Cardiac Studies, [facility] [address] [place] [address] 03/21/2024 5:30 PM EDT Home Visit [facility], [facility] [address] [address] Ingris Madden, RN [address] [place] [address] 04/23/2024 11:00 AM EDT Office Visit Cardiology, [facility] [address] [place] [address] uLh Garcia CRNP [address] [place] [address] 07/10/2024 2:40 PM EDT Office Visit Family Medicine [address] [place] [phone] Claude Mata MD [address] [place] [address] [place] [address] 07/15/2024 10:00 AM EDT Nurse Only Ancillary [address] [place] [address] [place], Nurse Annual [address] [place] [address] 10/01/2024 3:20 PM EST Office Visit Nephrology [address] [place] [address] [facility] [address] 12/02/2024 2:20 PM EST Office Visit Dermatology [address] [place] [address] Dalila West PA-C [address] [place] [address] [place] [address] Health Maintenance Due Date Last Done Comments COVID-19 Vaccine (2022-24 season) 2023 01/07/2022, 12/31/2020, 12/03/2020 DTaP,Tdap,and Td Vaccines (2 - Td or Tdap) 10/14/2023 10/14/2013, 07/22/2008 Depression Screening 07/12/2024 07/12/2023 Albumin/Creatinine Ratio 10/05/2024 024, 02/14/2023, 04/07/2022, Additional history exists CKD PHOS USE SMARTSET 17027 10/05/2024 01/0 01/2024, 05/12/2022, 10/05/2020, Additional history exists CKD HGB USE SMARTSET 39873 02/12/202502/12, 02/13/2024, 12/01/2023, Additional history exists Pneumococcal [...] 02/22/24 at 1545, For 1 dose Given 02/22/2024 5:44 PM EDT 100 mg Antecubital Right documented in this encounter Advance Directives [...] patient or by statute hierarchy) Care Teams Salesperson Floor Coverings Relationship Specialty Start Date End Date Claude Mata MD [address] [place] [address] [place] [phone] PCP - General Family Medicine 11/13/23 documented as of this encounter"
--- OUTSIDE RECORDS SUMMARY | 2024-02-27 23:49 | External Medical Summary | Summary of Care ---
Author Name Unknown Organization [facility] Address [address] [place] [address] Phone [phone] Care Team Providers Care Cash Applications Coordinator Name Role Phone Claude Mata MD Primary Care Provide r Reason for Visit * Reason Onset Date Comments [facility]: Maintenance 02/20/2024 Encounter Details Date Type Department Care Team (Late st Contact Info) Description 02/20/2024 Telephone [facility], [facility] [address] [facility] [place] [address] [facility], Nurse [facility] [address] [facility] [place] [address] [facility]: Maintenance Allergies Active Allergy [...] by mouth in the morning. Active Saline [place] 0.65 % Nasal Solution ([place]) Administer into nostril 1 [place] as needed for Congestion. 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 Chronic rhinitis 04/08/2022 Lung nodules [...] appointment. GENERAL OSTEOARTHROSIS INSOMNIA W SLEEP APNEA [place] workers pneumoconiosis Restrictive lung disease documented as [...] Rotator cuff rupture 05/22/2003 018 LOC PRIM [id number] 05/22/200310/02 Prepatellar bursitis 05/22/2003 015 Inflammation of sacroiliac joint 10/12/2001 10/16/2014 LOC PRIM OSTEOARTH-HAND 10/12/200110/02 Respiratory abnormality 07/04 Overview: ICD-10 update of inactive term Umbilical hernia 05/10/2018 Insomnia 10/16/2014 Overview: ICD-10 update of inactive term COPD, severity to be determined 07/07/2011 Allergic rhinitis 05/10/2018 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 NOS-REPAIRER PUMP 07/04 Bilateral carpal tunnel syndrome 05/10/2018 CKD [...] encounter Miscellaneous Notes * Addendum Note - Tuan Mercer PA-C - 02/20/2024 11:13 AM EDTAddended by: TUAN MERCER on: 02/20/2024 11:13 AM Modules accepted: Orders * Telephone Encounter - Tuan Mercer PA-C - 02/20/2024 11:00 AM EDT [facility] Remote Medical Command [facility] Phone Encounter Thank you for your assistance in the care of this patient today. Reviewed phone message regarding the patient's weight and [facility] findings. Please see below for the response [...] 4. Last potassium was 4.0 on the 14th of this month. Patient's GFR is in the chronic renal failure stage. I would have Ned Adams Earl continue to weigh on a daily basis and report any changes in symptoms to [facility], their PCP or their cardiology office. [...] 90 WITH symptoms Additional risk selection justification: [facility] trigger for weight increase of 5.5 lbs [...] DTP in chart Pt was admitted at [facility] from 01/29-02/06 Will forward to care team for further direction. Overall risk and identified plan: High risk: Route to RNCM (Registered Nurse Manager [place]) and Advance Practitioner Route to RMC (Remote Medical Coordinator) documented in this encounter Plan of Treatment Upcoming Encounters Date Type Department Care Team (Late st Contact Info) Description 02/21/2024 12:30 PM EDT Imaging Radiology [address] 132 [place] [address] 02/22/2024 5:30 PM EDT [facility] Visit [facility], [facility] 132 [place] [address] Ingris Madden, ART[place] 132 [place] [address] 02/27/2024 2:30 PM EDT Telemedicine [facility], [facility] 132 [place] [address] Sylvie Crawford CRNP [address] [place] [address] Mara Crystal Community Health Agility Instructor [address] [place] [address] [place] [address] 03/05/2024 9:15 AM EDT Cardiac Studies Cardiac Studies, [facility] 132 [facility] [place] [address] 04/23/2024 11:00 AM EDT Office Visit Cardiology, [facility] 132 [facility] [place] [address] Luh Garcia CRNP [address] [place] [address] 07/10/2024 2:40 PM EDT Office Visit Family Medicine [address] [place] [phone] Claude Mata MD [address] [place] [address] [place] [address] 07/15/2024 10:00 AM EDT Nurse Only Ancillary [address] [place] [address] [place], Nurse [address] [place] [address] 10/01/2024 3:20 PM EST Office Visit Nephrology [address] [place] [address] Cande Soni MD [address] [facility] [place] [address] 12/02/2024 2:20 PM EST Office Visit Dermatology [address] [place] [address] Dalila West PA-C [address] [place] [address] [place] [address] Health Maintenance Due Date Last Done Comments COVID-19 Vaccine ( season) 2023 01/07/2022, 12/31/2020, 12/03/2020 DTaP,Tdap,and Td Vaccines (2 - Td or Tdap) 10/14/2023 10/14/2013, 07/22/2008 Depression Screening 07/12/2024 07/12/2023 Albumin/Creatinine Ratio 10/05/2024 024, 02/14/2023, 04/07/2022, Additional history exists CKD PHOS USE SMARTSET 59445 10/05/202401/2024, 05/12/2022, 10/05/2020, Additional history exists CKD HGB USE SMARTSET 13330 02/12/202502/12, 02/13/2024, 12/01/2023, Additional history exists Pneumococcal [...] Agents on File Name Relationship Healthcare Agent [facility] p Communication Susu Quezada Adult Child Health Care Repr esentative (appointed verbally by patient or by statute hierarchy) Care Teams Cash Applications Coordinator Relationship Specialty Start Date End Date Claude Mata MD [address] [place] [address] [place] [address] PCP - General Family Medicine 11/13/23 documented as of this encounter
--- OUTSIDE RECORDS SUMMARY | 2024-02-27 23:49 | External Medical Summary ---
Author Name Unknown Address Unknown Organization K01:[facility] - [address] [facility] [place] [address] Laboratory Report Ordering Provider Test Date Status SHEREEN GARIBAY 02/23/2024 08:11:14 Final Observation Date Value Abnormality Reference (Units ) Status WBC, Total 02/23/2024 08:11:14 10.42 4.00-10.8 0 (K/uL) Final RBC 02/23/2024 08:11:14 3.87 4.50-5.25 (M/uL) Final Hemoglobin 02/23/2024 08:11:14 10.9 Below low normal 14 .0-16.8 (g/dL) Final Anemia reflex testing trigge rs on a HGB < 12.0 for Females and HGB < 13.0 for Males in accordance with the WHO Anemia Guidelines
Anemia reflex testing triggers on a HGB < 12.0 for Females and HGB < 13.0 for Males in accordance with the WHO Anemia Guidelines HCT 02/23/2024 08:11:14 34.4 Below low normal 40. 0-48.4 (%) Final MCV 02/23/2024 08:11:14 88.9 82.0-99.5 (fL) Final MCH 02/23/2024 08:11:14 28.2 27.0-34.0 (pg) Final MCHC 02/23/2024 08:11:14 31.7 32.0-36.0 (g/dL) Final RDW 02/23/2024 08:11:14 15.3 11.5-15.5 (%) Final Platelets 02/23/2024 08:11:14 329 140-400 (K /uL) Final MPV 02/23/2024 08:11:14 10.1 6.6-11.1 ( fL) Final Nucleated erythrocytes/100 leukocytes [Ratio] in Blood by Automated count 02/23/2024 08:11:14 0 <=0 (/100 WBCs) Final Performing Location [facility] - [address] [facility] [address]
--- OUTSIDE RECORDS SUMMARY | 2024-02-27 23:49 | External Medical Summary | Summary of Care ---
Author Name Unknown Organization [facility] Address [address] [place] [address] Phone [phone] Care Team Providers Care Concrete Conveyor Operator Name Role Phone Claude Mata MD Primary Care Provide r Reason for Visit * Reason Onset Date Comments Appointment 02/22/2024 Encounter Details Date Type Department Care Team (Late st Contact Info) Description 02/22/2024 Telephone [facility], [facility] [address] [place] [address] Services, Scheduling [address] [place] [address] Appointment Allergies Active Allergy Reactions Criticality Noted Date [...] by mouth in the morning. Active Saline [place] 0.65 % Nasal Solution ([place]) Administer into nostril 1 [place] as needed for Congestion. 60 mL 5 [...] chronic kidney disease (HCC),Coronary artery disease involving [place] coronary artery of [place] heart without angina pectoris Take 1 Tablet [...] HFA 17 MCG/ACT Inhalation Aerosol Solution (ipratropium)Indicat ions:[place] workers pneumoconiosis (HCC) Inhale 2 Puffs by [...] failure with reduced ejection fraction) ([facility]) Alternate 50 mg, with 100 mg, [...] mgIndications:HFrEF (heart failure with reduced ejection fraction) ([facility]) 100 mg IV PUSH ONCE 02/22/2024 02/23/2024 Active documented as of this encounter (statuses as of 02/22/2024) Active Problems Problem Noted Date Diagnosed Date SOLEDAD (generalized anxiety disorder) 12/01/2023 Coronary artery disease invo lving [place] coronary artery of [place] heart without angina pectoris 12/01/2023 Pulmonary hypertension, unspecified 10/07/2023 HFrEF (heart failure with reduced ejection fract ion) 09/19/2023 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 07/04 Bilateral carpal tunnel syndrome 05/10/2018 CKD [...] encounter Miscellaneous Notes * Telephone Encounter - Belle Betts OSA - 02/22/2024 3:50 PM EDT Request to set phone calls for tomorrow and Monday Failed oral DTP documented in this encounter Plan of Treatment Upcoming Encounters Date Type Department Care Team (Late st Contact Info) Description 02/22/2024 5:30 PM EDT Home Visit [facility], [facility] [place] [address] Ingris Madden RN [address] [place] [address] 02/23/2024 2:30 PM EDT Scheduled Telephone [facility], [facility] [place] [address] Coordinator, [facility] 132 [place] [address] 02/24/2024 3:00 PM EDT Scheduled Telephone [facility], [facility] [place] [address] Region, Nurse [place] [address] [place] [address] 02/27/2024 2:30 PM EDT Telemedicine [facility], [facility] [place] [address] Sylvie Crawford CRNP [address] [place] [address] Mara Crystal Community [facility] Furnace Operator And Tender [address] [place] [address] [place] [address] 03/05/2024 9:15 AM EDT Cardiac Studies Cardiac Studies, [facility] 132 [facility] [place] [address] 03/21/2024 5:30 PM EDT [facility] [address] [facility] [place] [address] Ingris Madden RN 132 [facility] [place] [address] 04/23/2024 11:00 AM EDT Office Visit Cardiology, [facility] 132 [facility] [place] [address] Luh Garcia CRNP 132 [facility] [place] [address] 07/10/2024 2:40 PM EDT Office Visit Family Medicine [address] [place] [phone] Claude Mata MD [address] [place] [address] [place] [address] 07/15/2024 10:00 AM EDT Nurse Only Ancillary [address] [place] [address] [place], Nurse [address] [place] [address] 10/01/2024 3:20 PM EST Office Visit Nephrology [address] [place] [address] Cande Soni MD [address] [facility] [place] [address] 12/02/2024 2:20 PM EST Office Visit Dermatology Steve [address] [place] [address] Dalila West PA-C [address] [place] [address] [place] [address] Health Maintenance Due Date Last Done Comments COVID-19 Vaccine ( season) 2023 01/07/2022, 12/31/2020, 12/03/2020 DTaP,Tdap,and Td Vaccines (2 - Td or Tdap) 10/14/2023 10/14/2013, 07/22/2008 Depression Screening 07/12/2024 07/12/2023 Albumin/Creatinine Ratio 10/05/2024 024, 02/14/2023, 04/07/2022, Additional history exists CKD PHOS USE SMARTSET 19247 10/05/202401/2024, 05/12/2022, 10/05/2020, Additional history exists CKD HGB USE SMARTSET 13567 02/12/202502/12, 02/13/2024, 12/01/2023, Additional history exists Pneumococcal [...] or by statute hierarchy) Care Teams Concrete Conveyor Operator Relationship Specialty Start Date End Date Claude Mata MD [address] [place] [address] [place] [address] PCP - General Family Medicine 11/13/23 documented as of this encounter
--- OUTSIDE RECORDS SUMMARY | 2024-02-27 23:49 | External Medical Summary | Summary of Care ---
Author Name Unknown Organization [facility] Address [address] [place] [address] Phone [phone] Care Team Providers Care Flower Buncher Or Picker Name Role Phone Claude Mata MD Primary Care Provide r Reason for Visit * Reason Onset Date Comments [facility]: Maintenance 02/20/2024 Encounter Details Date Type Department Care Team (Late st Contact Info) Description 02/20/2024 Telephone [facility], [facility] [address] [facility] [place] [address] [facility], Nurse [facility] [address] [place] [address] [facility]: Maintenance Allergies Active Allergy [...] by mouth in the morning. Active Saline [place] 0.65 % Nasal Solution ([place]) Administer into nostril 1 [place] as needed for Congestion. 60 mL 5 [...] HFA 17 MCG/ACT Inhalation Aerosol Solution (ipratropium)Indicat ions:[place] workers pneumoconiosis (HCC) Inhale 2 Puffs by [...] hypoxemia 04/08/2022 Overview: Wears 2 LPM via [place], DME: [facility] Chronic rhinitis 04/08/2022 [...] appointment. 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 Phone Encounter Thank you for your assistance in the care of this patient today. Reviewed phone message regarding the patient's weight and [facility] findings. Please see below for [...] and report any changes in symptoms to [facility], their PCP or their cardiology office. Thank [...] lbs in 7 day(s) Trigger priority per [facility]: high Patient takes diuretic medication: Yes, reviewed [...] 90 WITH symptoms Additional risk selection justification: [facility] trigger for weight increase of 5.5 lbs [...] in chart Pt was admitted at [facility] from 01/29-02/06 Will forward to care team for further direction. Overall risk and identified plan: High risk: Route to RNCM (Registered Nurse Farm Technician) and Advance Practitioner Route to RMC (Remote Medical Coordinator) documented in this encounter Plan of Treatment Upcoming Encounters Date Type Department Care Team (Late st Contact Info) Description 02/21/2024 12:30 PM EDT Imaging Radiology [address] [place] [address] 02/22/2024 5:30 PM EDT Home Visit [facility] [address] [place] [address] Ingris Madden RN [address] [place] [address] 02/27/2024 2:30 PM EDT Telemedicine [facility], [facility] [address] [place] [address] Sylvie Crawford CRNP [address] [place] [address] Mara Crystal, Community [facility] Print Support Specialist [address] [place] [address] [place] [address] 03/05/2024 9:15 AM EDT Cardiac Studies Cardiac Studies, [facility] 132 [facility] [place] [address] 04/23/2024 11:00 AM EDT Office Visit Cardiology, [facility] 132 [facility] [place] [address] Luh Garcia CRNP [address] [place] [address] 07/10/2024 2:40 PM EDT Office Visit Family Medicine [address] [place] [phone] Claude Mata MD [address] [place] [address] [place] [address] 07/15/2024 10:00 AM EDT Nurse Only Ancillary [address] [place] [address] [place], Nurse [address] [place] [address] 10/01/2024 3:20 PM EST Office Visit Nephrology [address] [place] [address] Cande Soni MD [address] [place] [address] [place] [address] 12/02/2024 2:20 PM EST Office Visit Dermatology [address] [place] [address] Dalila West PA-C [address] [place] [address] [place] [address] Scheduled Orders Name Type Priority Associated Diagnoses [...] Additional history exists CKD PHOS USE SMARTSET 18953 10/05/202401/2024, 05/12/2022, 10/05/2020, Additional history exists CKD HGB USE SMARTSET 54176 02/12/202502/12, 02/13/2024, 12/01/2023, Additional history exists Pneumococcal [...] HFrEF (heart failure with reduced ejection fraction) ([facility])- Primary documented in this encounter Advance Directives [...] patient or by statute hierarchy) Care Teams Flower Buncher Or Picker Relationship Specialty Start Date End Date Claude Mata MD [address] [place] [address] [place] [phone] PCP - General Family Medicine 11/13/23 documented as of this encounter
--- OUTSIDE RECORDS SUMMARY | 2024-02-27 23:50 | External Medical Summary | Summary of Care ---
Author Name Unknown Organization [facility] Address [address] [place] [address] Phone [phone] Care Team Providers Care Frame Tender Name Role Phone Claude Mata MD Primary Care Provide r Reason for Visit * Reason Onset Date Comments Information 02/13/2024 Encounter Details Date Type Department Care Team (Late st Contact Info) Description 02/13/2024 Telephone [facility] [place] [address] [place] [address] Services, Scheduling [address] [place] [address] Information (/) Allergies Active Allergy Reactions Criticality Noted Date Comments Trazodone Other (Please comment) High 10/05/2023 Hallucinations documented as of this encounter (statuses as of 02/13/2024) Medications Medication Sig Dispensed Refills Start Date [...] mouth in the morning. 0 Active Saline [place] 0.65 % Nasal Solution ([place]) Administer into nostril 1 [place] as needed for Congestion. 60 mL 5 [...] chronic kidney disease (HCC),Coronary artery disease involving [place] coronary artery of [place] heart without angina pectoris Take 1 Tablet [...] HFA 17 MCG/ACT Inhalation Aerosol Solution (ipratropium)Indicat ions:[place] workers pneumoconiosis (HCC) Inhale 2 Puffs by mouth in the morning and 2 Puffs at noon and 2 Puffs in the evening and 2 Puffs before bedtime. 38.7 g 1 10/25/2023 Active guaiFENesin ER 600 MG Oral Tablet Extended Release 12 Hour (Mucinex) Take 1 Tablet by mouth every 12 hours as needed for Cough or Congestion. 0 Active Torsemide 100 MG Oral Tablet [...] reported), Informant: At Discharge, Reported on 02/09/2024 Triamcinolone Acetonide 0.1 % External Cream (Aristocort)Indicati [...] morning and 1 Tablet before bedtime. 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 GENERAL OSTEOARTHROSIS INSOMNIA W SLEEP APNEA [place] workers pneumoconiosis Restrictive lung disease documented as of this encounter (statuses as of 02/13/2024) Resolved Problems Problem Noted Date Diagnosed Date [...] Rotator cuff rupture 05/22/2003 018 LOC PRIM [id number] 05/22/200310/02 Prepatellar bursitis 05/22/2003 015 Inflammation of sacroiliac joint 10/12/2001 10/16/2014 LOC PRIM OSTEOARTH-HAND 10/12/200110/02 Respiratory abnormality 07/04 Overview: ICD-10 update of inactive term Umbilical hernia 05/10/2018 Insomnia 10/16/2014 Overview: ICD-10 update of inactive term COPD, severity to be determined 07/07/2011 Allergic rhinitis 05/10/2018 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 NOS-PHYSIOTHERAPIST'S ASSISTANT 07/04 Bilateral carpal tunnel syndrome 05/10/2018 CKD (chronic kidney disease), stage III 12/11/2018 Benign hypertension with CKD (chronic kidney disease) stage III 02/11/2021 Overview: Per CKD protocol documented as of this encounter (statuses as of 02/13/2024) Immunizations Name Administration Dates Next Due COVID-19 [...] Telephone Encounter - Belle Betts OSA - 02/13/2024 11:26 AM EDT Raul requested assistance to help pt with scheduling an MRI, after a call to pt and Jarrod Andrade, the order is coming from Jarrod Andrade, they will need to schedule the MRI for Sarah. I called pt back and informed him to work with Jarrod Andrade with it being their order. Pt agreeable. documented in this encounter Plan of Treatment Upcoming Encounters Date Type Department Care Team (Late st Contact Info) Description 02/13/2024 2:00 PM EDT Office Visit Family [address] [place] [phone] Deborah Whitaker CRNP [address] [place] [address] [place] [address] 02/22/2024 5:30 PM EDT [facility] [address] [place] [address] Ingris Madden RN [address] [place] [address] 02/27/2024 2:30 PM EDT Telemedicine [facility] [address] [place] [address] Sylvie Crawford CRNP [address] [place] [address] Mara Crystal, Community Health Beam House Inspector [address] [place] [address] [place] [address] 03/05/2024 9:15 AM EDT Cardiac Studies [facility] Studies, [facility] [place] [address] 04/23/2024 11:00 AM EDT Office Visit Cardiology, [facility] [address] [facility] [place] [address] Luh Garcia CRNP [address] [facility] [place] [address] 07/10/2024 2:40 PM EDT Office Visit Family Medicine [address] [place] [phone] Claude Mata MD [address] [place] [address] [place] [address] 07/15/2024 10:00 AM EDT Nurse Only Ancillary [address] [place] [address] Jennif[place], Nurse Annual [address] [place] [address] 10/01/2024 3:20 PM EST Office Visit Nephrology [address] [place] [address] Cande Soni MD [address] [facility] [place] [address] 12/02/2024 2:20 PM EST Office Visit Dermatology [address] [place] [address] Dalila West PA-C [address] [place] [address] [place] [address] Health Maintenance Due Date Last Done Comments COVID-19 Vaccine (2022- season) 2023 01/07/2022, 12/31/2020, 12/03/2020 DTaP,Tdap,and Td Vaccines (2 - Td or Tdap) 10/14/2023 10/14/2013, 07/22/2008 Depression Screening 07/12/2024 07/12/2023 Albumin/Creatinine Ratio 10/05/2024 024, 02/14/2023, 04/07/2022, Additional history exists CKD PHOS USE SMARTSET 11483 10/05/2024 01/0 01/2024, 05/12/2022, 10/05/2020, Additional history exists CKD HGB USE SMARTSET 87543 11/30/202411/30, 12/01/2023, 10/05/2023, Additional history exists Pneumococcal [...] File Name Relationship [facility] Susu Quezada Adult Child Health Care Repr esentative (appointed verbally by patient or by statute hierarchy) Care Teams Frame Tender Relationship Specialty Start Date End Date Claude Mata MD [address] [place] [address] [place] [phone] PCP - General Family Medicine 11/13/23 documented as of this encounter
--- OUTSIDE RECORDS SUMMARY | 2024-02-27 23:50 | External Medical Summary | Summary of Care ---
Author Name Unknown Organization [facility] Address [address] [place] [address] Phone [phone] Care Team Providers Care Corporate Intern Name Role Phone Claude Mata MD Primary Care Provide r Reason for Visit * Reason Onset Date Comments Hospital Follow-Up Hospital Follow-Up 02/13/2024 Encounter Details Date Type Department Care Team (Late st Contact Info) Description 02/13/2024 2:00 PM EDT Office Visit Family Medicine [address] [place] [phone] Deborah Whitaker [address] [place] [address] Hospital discharge follow-up*; Chronic kidney disease, stage 3b ([facility]); Rash; HFrEF (heart failure with reduced ejection fraction) ([facility]); Primary hypertension; Ulcer of right foot, unspecified ulcer stage ([facility]) Allergies Active Allergy Reactions Criticality Noted Date [...] mouth in the morning. 0 Active Saline [place] 0.65 % Nasal Solution ([place]) Administer into nostril 1 [place] as needed for Congestion. 60 mL 5 2 Active Fluticasone Propionate 50 MCG/ACT Nasal Suspension (Flonase) Administer 2 Sprays into nostril in the morning. 0 Active Flutter Device Provided at visit 1 Each 0 2 Active Nitroglycerin 0.4 MG Sublingual Tablet Sublingual (Nitrostat) Place 1 Tablet under the tongue every 5 minutes as needed for Pain, Chest. 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 100 Tablet 1 3 Active Famotidine 20 MG Oral Tablet (Pepcid)Indications :Gastroesophageal reflux disease, unspecified whether esophagitis present Take 1 Tablet by mouth in the morning. 100 Tablet 1 3 Active Rosuvastatin Calcium 10 MG Oral Tablet (Crestor)Indication s:Dyslipidemia, goal LDL below 100 Take 1 Tablet by mouth at bedtime. 100 Tablet 1 3 Active Metoprolol Succinate ER 25 MG Oral Tablet Extended Release 24 Hour (toPROL XL)Indications:Hype rtensive heart and kidney disease with chronic systolic congestive heart failure and stage 3b chronic kidney disease (HCC) Take 1 Tablet by mouth in the morning. 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 100 Tablet 1 3 Active Tamsulosin HCl 0.4 MG Oral Capsule (Flomax)Indications :BPH with obstruction/lower urinary tract symptoms Take 1 Capsule by mouth in the morning. 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 90 Tablet 3 4 Active Atrovent HFA 17 MCG/ACT Inhalation Aerosol Solution (ipratropium)Indica tions:[place] workers pneumoconiosis (HCC) Inhale 2 Puffs by mouth in the morning and 2 Puffs at noon and 2 Puffs in the evening and 2 Puffs before bedtime. 38.7 g 1 4 Active guaiFENesin ER 600 MG Oral Tablet Extended Release 12 Hour (Mucinex) Take 1 Tablet by mouth every 12 hours as needed for Cough or Congestion. 0 Active Torsemide 100 MG Oral Tablet (Demadex)Indication s:HFrEF (heart failure with reduced ejection fraction) ([facility]) Alternate 50 mg, with 100 mg, daily. Take 50 mg every other day - starting 11/18/23, and take 100 mg every other day - starting 11/19/23. 70 Tablet 1 4 Active Additional Information Patient taking differently: 80 mg Oral Daily(AM), (No instructions reported), Informant: At Discharge, Reported on 02/09/2024 Pantoprazole Sodium 40 MG Oral Tablet Delayed Release (Protonix) Take 1 Tablet by mouth in the morning. 90 Tablet 3 4 Active Citalopram Hydrobromide 20 MG Oral Tablet (CeleXA)Indications :SOLEDAD (generalized anxiety disorder) Take 1 Tablet by mouth in the morning. 30 Tablet 5 4 Active hydrALAZINE HCl 10 MG Oral Tablet (Apresoline) Take 1 Tablet by mouth in the morning and 1 Tablet before bedtime. 0 4 Active Mometasone Furoate 0.1 % External OintmentIndications :Rash Apply topically to affected area daily. Apply to red and itchy areas 45 g 0 4 Active Triamcinolone Acetonide 0.1 % External Cream (Aristocort)Indicat ions:Xerosis cutis,Multiple excoriations Apply 2 times daily (or more if itchy instead of scratching) to spots on body until resolved, then when flaring 454 g 0 4 02/13/20 24 Discontinu ed(Medicat ion List Clean Up) documented as of this encounter (statuses as of 02/13/2024) Active Problems Problem Noted Date Diagnosed Date SOLEDAD (generalized anxiety disorder) 12/01/2023 Coronary artery disease invo lving [place] coronary artery of [place] heart without angina pectoris 12/01/2023 Pulmonary hypertension, unspecified 10/07/2023 HFrEF (heart failure with reduced ejection fract ion) 09/19/2023 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 Admitted 01/29-02/07/24 for heart failure, covid, and rhinovirus. He is doing pretty good today. He says the fluid in his abdomen is going down so he breath better. He has an MRI schedule [facility] and he wants to know if it can be rescheduled to be done here in [place]; there is a TE from earlier about this. It was order by Jarrod Andrade. documented in this encounter Plan of Treatment Upcoming Encounters Date Type Department Care Team (Late st Contact Info) Description 02/22/2024 5:30 PM EDT [facility] Visit [facility] [address] [place] [address] Ingris Madden, ARTURO [address] [place] [address] 02/27/2024 2:30 PM EDT Telemedicine [facility] [address] [place] [address] Sylvie Crawford CRNP [address] [place] [address] Mara Crystal, Community Health Applications Project Manager [address] [place] [address] [place] [address] 03/05/2024 9:15 AM EDT Cardiac Studies [facility] Studies, [facility] [place] [address] 04/23/2024 11:00 AM EDT Office Visit Cardiology, [facility] [address] [facility] [place] [address] Luh Garcia CRNP [facility] [place] [address] 07/10/2024 2:40 PM EDT Office Visit Family Medicine [address] [place] [phone] Claude Mata MD [address] [place] [address] [place] [address] 07/15/2024 10:00 AM EDT Nurse Only Ancillary [address] [place] [address] Rubina, Nurse Annual [address] [place] [address] 10/01/2024 3:20 PM EST Office Visit Nephrology [address] [place] [address] [facility]i [facility] [address] 12/02/2024 2:20 PM EST Office Visit Dermatology [address] [place] [address] Dalila West PA-C [address] [place] [address] [place] [address] Pending Results Name Type Priority Associated Diagnoses Date /Time CBC WITH WBC DIFFERENTIAL AND ANEMIA REFLEX WORKUP Lab Routine Chronic kidney disease, stage 3b (HCC) 02/13/2024 2:49 PM EDT COMPREHENSIVE METABOLIC PANEL Lab Routine Chronic kidney disease, stage 3b (HCC) 02/13/2024 2:49 PM EDT Scheduled Orders Name Type Priority Associated Diagnoses Orde r Schedule CBC WITH WBC DIFFERENTIAL AND ANEMIA REFLEX WORKUP Lab Routine Chronic kidney disease, stage 3b (HCC) Expected: 02/13/2024 (Approximate), Expires: 02/12/2025 COMPREHENSIVE METABOLIC PANEL Lab Routine Chronic kidney disease, stage 3b (HCC) Expected: 02/13/2024 (Approximate), Expires: 02/12/2025 Health Maintenance Due Date Last Done Comments COVID-19 Vaccine ( season) 2023 01/07/2022, 12/31/2020, 12/03/2020 DTaP,Tdap,and Td Vaccines (2 - Td or Tdap) 10/14/2023 10/14/2013, 07/22/2008 Depression Screening 07/12/2024 07/12/2023 Albumin/Creatinine Ratio 10/05/2024 024, 02/14/2023, 04/07/2022, Additional history exists CKD PHOS USE SMARTSET 93291 10/05/2024/0 01/2024, 05/12/2022, 10/05/2020, Additional history exists CKD HGB USE SMARTSET 64004 11/30/202411/30, 12/01/2023, 10/05/2023, Additional history exists Pneumococcal [...] as of this encounter Visit Diagnoses Diagnosis Hospital discharge follow-up- Primary Other follow-up examination Chronic kidney disease, stage 3b (HCC) Rash Rash and other nonspecific skin eruption HFrEF (heart failure with reduced ejection fraction) (HCC) Primary hypertension Unspecified essential hypertension Ulcer of right foot, unspecified ulcer stage (HCC) documented in this encounter Advance Directives [...] patient or by statute hierarchy) Care Teams Corporate Intern Relationship Specialty Start Date End Date Claude Mata MD [address] [place] [address] [place] [address] PCP - General Family Medicine 11/13/23 documented as of this encounter
--- OUTSIDE RECORDS SUMMARY | 2024-02-27 23:50 | External Medical Summary ---
Author Name Unknown Address Unknown Organization [id number][place] [place] [address] [place] [address] Laboratory Report Ordering Provider Test Date Status SHEREEN GARIBAY 02/13/2024 14:49:00 Final Observation Date Value Abnormality Reference (Units ) Status Folic Acid 02/13/2024 14:49:00 >20.0 >4.5 (ng/ mL) Final Performing Location [facility] - [address] [place] [address]
--- OUTSIDE RECORDS SUMMARY | 2024-02-27 23:50 | External Medical Summary ---
Author Name Unknown Address Unknown Organization [id number]:[facility] [place] [address] [place] [address] Laboratory Report Ordering Provider Test Date Status MIGUEL ANGEL GARIBAYT 02/13/2024 14:49:00 Final Observation Date Value Abnormality Reference (Units ) Status Retic, % (auto) 02/13/2024 14:49:00 1.78 0.80-1.90 (%) Final Reticulocytes, Absolute 02/13/2024 14:49:00 73.0 31.3-100.1 (K/uL) Final Reticulocyte fraction, immature 02/13/2024 14:49:00 8.5 2.5-20.6 (%) Final Reticulocyte HGB 02/13/2024 14:49:00 31.6 29.7-37.4 (pg) Final Performing Location [facility] [place] - [address] [place] [address]
--- OUTSIDE RECORDS SUMMARY | 2024-02-27 23:50 | External Medical Summary ---
Author Name Unknown Address Unknown Organization [id number][place] [place] [address] [facility] [place] [address] Laboratory Report Ordering Provider Test Date Status SHEREEN GARIBAY 02/13/2024 14:49:00 Final Observation Date Value Abnormality Reference (Units ) Status TSH 02/13/2024 14:49:00 3.12 0.27-4.20 (uIU/mL) Final Performing Location [facility] - [address] [facility] [address]
--- OUTSIDE RECORDS SUMMARY | 2024-02-27 23:50 | External Medical Summary ---
Author Name Unknown Address Unknown Organization [id number]:[facility] [place] [address] [place] [address] Laboratory Report Ordering Provider Test Date Status SHEREEN GARIBAY 02/13/2024 14:49:00 Final Observation Date Value Abnormality Reference (Units ) Status Iron 02/13/2024 14:49:00 26 Below low normal 45-176 (ug/dL) Final Iron-binding capacity 02/13/2024 14:49:00 284 250-425 (ug/dL) Final Transferrin Sat % 02/13/2024 14:49:00 9 Below low normal 15-55 (%) Final Performing Location [facility] [place] [address] [place] [address]
--- OUTSIDE RECORDS SUMMARY | 2024-02-27 23:50 | External Medical Summary | Summary of Care ---
Author Name Unknown Organization [facility] Address [address] [place] [address] Phone [phone] Care Team Providers Care Seal Delivery Vehicle Officer Name Role Phone Claude Mata MD Primary Care Provide r Reason for Visit * Reason Onset Date Comments Appointment 02/09/2024 Encounter Details Date Type Department Care Team (Late st Contact Info) Description 02/09/2024 Telephone [facility], [place] [address] [place] [address] Services, Scheduling [address] [place] [address] Appointment (/) Allergies Active Allergy Reactions Criticality Noted Date Comments Trazodone Other (Please comment) High 10/05/2023 Hallucinations documented as of this encounter (statuses as of 02/09/2024) Medications Medication Sig Dispensed Refills Start Date [...] mouth in the morning. 0 Active Saline [place] 0.65 % Nasal Solution ([place]) Administer into nostril 1 [place] as needed for Congestion. 60 mL 5 [...] chronic kidney disease (HCC),Coronary artery disease involving [place] coronary artery of [place] heart without angina pectoris Take 1 Tablet [...] HFA 17 MCG/ACT Inhalation Aerosol Solution (ipratropium)Indicat ions:[place] workers pneumoconiosis (HCC) Inhale 2 Puffs by [...] failure with reduced ejection fraction) ([facility]) Alternate 50 mg, with 100 mg, daily. 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 GENERAL OSTEOARTHROSIS INSOMNIA W SLEEP APNEA [place] workers pneumoconiosis Restrictive lung disease documented as of this encounter (statuses as of 02/09/2024) Resolved Problems Problem Noted Date Diagnosed Date [...] Rotator cuff rupture 05/22/2003 018 LOC PRIM [id number] 05/22/200310/02 Prepatellar bursitis 05/22/2003 015 Inflammation of sacroiliac joint 10/12/2001 10/16/2014 LOC PRIM OSTEOARTH-HAND 10/12/200110/02 Respiratory abnormality 07/04 Overview: ICD-10 update of inactive term Umbilical hernia 05/10/2018 Insomnia 10/16/2014 Overview: ICD-10 update of inactive term COPD, severity to be determined 07/07/2011 Allergic rhinitis 05/10/2018 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/04 Bilateral carpal tunnel syndrome 05/10/2018 CKD (chronic kidney disease), stage III 12/11/2018 Benign hypertension with CKD (chronic kidney disease) stage III 02/11/2021 Overview: Per CKD protocol documented as of this encounter (statuses as of 02/09/2024) Immunizations Name Administration Dates Next Due COVID-19 [...] encounter Miscellaneous Notes * Telephone Encounter - Crispin Estrada, SERENA - 02/09/2024 9:03 AM EDT [facility] Engagement Attempt Engagement: Engagement Attempt 1: Contacted - Agreed to home-based services 02/08 Scheduled appointment information: RNCM: 02/18, AP: 02/26, msg leadership to see if pt needs seen sooner Home Information: Has pets Advance Care Planning (ACP): No data was found Has Living Will or Advance Directive: No data was found Anticipated Sub-Program: Focused Care Management (3-9 months) Confirmation of Sub-Program Type (by care residential team leader): No data was found Handoff Information: Current care team notified via: No data was found Current telemonitoring equipment: No data was found documented in this encounter Plan of Treatment Upcoming Encounters Date Type Department Care Team (Late st Contact Info) Description 02/13/2024 2:00 PM EDT Office Visit Family Medicine [address] [place] [phone] Deborah Whitaker CRNP [address] [place] [address] [place] [address] 02/19/2024 12:30 PM EDT [facility] Visit [facility] [place], [facility] [address] [place] [address] Ingris Madden RN [address] [place] [address] 02/27/2024 2:30 PM EDT Telemedicine [facility] [address] [place] [address] Sylvie Crawford CRNP [address] [place] [address] Mara Crystal, Community [facility] [address] [place] [address] [place] [address] 03/05/2024 9:15 AM EDT Cardiac Studies Cardiac Studies, [facility] [address] [place] [address] 04/23/2024 11:00 AM EDT Office Visit Cardiology, [facility] [address] [place] [address] Luh Garcia CRNP [address] [place] [address] 07/10/2024 2:40 PM EDT Office Visit Family Medicine [address] [place] [phone] Claude Mata MD [address] [place] [address] [place] [address] 07/15/2024 10:00 AM EDT Nurse Only Ancillary [address] [place] [address] [place], Nurse Annual Wellness [address] [place] [address] [place] [address] 10/01/2024 3:20 PM EST Office Visit Nephrology [address] [place] [address] Cande Soni MD [address] [facility] [place] [address] 12/02/2024 2:20 PM EST Office Visit Dermatology [address] [place] [address] Dalila West PA-C [address] [place] [address] [place] [address] Health Maintenance Due Date Last Done Comments COVID-19 Vaccine ( season) 2023 01/07/2022, 12/31/2020, 12/03/2020 DTaP,Tdap,and Td Vaccines (2 - Td or Tdap) 10/14/2023 10/14/2013, 07/22/2008 Depression Screening 07/12/2024 07/12/2023 Albumin/Creatinine Ratio 10/05/2024 024, 02/14/2023, 04/07/2022, Additional history exists CKD PHOS USE SMARTSET 77589 10/05/2024/0 01/2024, 05/12/2022, 10/05/2020, Additional history exists CKD HGB USE SMARTSET 59619 11/30/202411/30, 12/01/2023, 10/05/2023, Additional history exists Pneumococcal [...] patient or by statute hierarchy) Care Teams Seal Delivery Vehicle Officer Relationship Specialty Start Date End Date Claude Mata MD [address] [place] [address] [place] [address] PCP - General Family Medicine 11/13/23 documented as of this encounter
--- OUTSIDE RECORDS SUMMARY | 2024-02-27 23:50 | External Medical Summary | Summary of Care ---
Author Name Unknown Organization [facility] Address [address] [place] [address] Phone [phone] Care Team Providers Care Order Worker Name Role Phone Claude Mata MD Primary Care Provide r Reason for Visit * Reason Onset Date Comments Appointment 02/09/2024 Encounter Details Date Type Department Care Team (Late st Contact Info) Description 02/09/2024 Telephone [facility], [place] [address] [place] [address] Services, Scheduling [address] [place] [address] Appointment (/) Allergies Active Allergy Reactions Criticality [...] mouth in the morning. 0 Active Saline [place] 0.65 % Nasal Solution ([place]) Administer into nostril 1 [place] as needed for Congestion. 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/04 Bilateral carpal tunnel syndrome 05/10/2018 CKD [...] Miscellaneous Notes * Telephone Encounter - Crispin Estrada OSA - 02/09/2024 11:55 AM EDT CB to pt and confirmed rncm visit for new on 02/10, pt agreweable * Telephone Encounter - Crispin Estrada OSA - 02/09/2024 9:03 AM EDT [facility] [...] months) Confirmation of Sub-Program Type (by care steam trap worker): No data was found Handoff Information: Current care team notified via: No data was found Current telemonitoring equipment: No data was found documented in this encounter Plan of Treatment Upcoming Encounters Date Type Department Care Team (Late st Contact Info) Description 02/10/2024 10:30 AM EDT [facility] Visit [facility] [place], [address] [place] [address] [facility], Nurse [address] [place] [address] 02/13/2024 2:00 PM EDT Office Visit Family [address] [place] [phone] Deborah Whitaker CRNP [address] [place] [address] [place] [address] 02/22/2024 5:30 PM EDT Home Visit [facility] [place], [facility] [address] [facility] [place] [address] Ingris Madden, ART[place]O [address] [place] [address] 02/27/2024 2:30 PM EDT Telemedicine [facility] [place], [facility] [address] [place] [address] Sylvie Crawford CRNP [address] [place] [address] Mara Crystal, Community [facility] [employer] [address] [place] [address] [place] [address] 03/05/2024 9:15 AM EDT Cardiac Studies Cardiac Studies, [facility] [address] [place] [address] 04/23/2024 11:00 AM EDT Office Visit Cardiology, [facility] [place] [address] Luh Garcia CRNP [address] [place] [address] 07/10/2024 2:40 PM EDT Office Visit Family Medicine [address] [place] [phone] Claude Mata MD [address] [place] [address] [place] [address] 07/15/2024 10:00 AM EDT Nurse Only Ancillary [address] [place] [address] Rubina, Nurse [address] [place] [address] 10/01/2024 3:20 PM EST Office Visit Nephrology [address] [place] [address] Cande Justice MD [address] [place] [address] 12/02/2024 2:20 PM EST Office Visit Dermatology [address] [place] [address] Dalila West PA-C [address] [place] [address] [place] [address] Health Maintenance Due Date Last Done Comments COVID-19 Vaccine (2022- season) 2023 01/07/2022, 12/31/2020, 12/03/2020 DTaP,Tdap,and Td Vaccines (2 - Td or Tdap) 10/14/2023 10/14/2013, 07/22/2008 Depression Screening 07/12/2024 07/12/2023 Albumin/Creatinine Ratio 10/05/2024 024, 02/14/2023, 04/07/2022, Additional history exists CKD PHOS USE SMARTSET 74352 10/05/202401/2024, 05/12/2022, 10/05/2020, Additional history exists CKD HGB USE SMARTSET 36642 11/30/202411/30, 12/01/2023, 10/05/2023, Additional history exists Pneumococcal [...] patient or by statute hierarchy) Care Teams Order Worker Relationship Specialty Start Date End Date Claude Mata MD [address] [place] [address] [place] [address] PCP - General Family Medicine 11/13/23 documented as of this encounter
--- OUTSIDE RECORDS SUMMARY | 2024-02-27 23:50 | External Medical Summary | Summary of Care ---
Author Name Unknown Organization [facility] Address [address] [place] [address] Phone [phone] Care Team Providers Care Human Resources Technician Name Role Phone Claude Mata MD Primary Care Provide r Reason for Referral * Precert (Within 10 days (routine)) - Pending Review Specialty Diagnoses / Procedures Referred By Eleazar landaverde Referred To Contact Radiology Diagnoses Pressure ulcer, stage III (HCC) Procedures MRI FOOT RIGHT WO CONTRAST Cande Shepherd PA-C [address] [place] [address] [place] [address] Referral ID Status Reason Start Date Expiration Date V isits Requested Visits Authorized [id number] Pending Review 03/16/[phone] Encounter Details Date Type Department Care Team (Late st Contact Info) Description 02/14/2024 Orders Only Radiology [address] [place] [address] Requisition, External Radiology [address] [place] [address] Pressure ulcer, stage III (HCC)* Allergies Active Allergy Reactions Criticality Noted Date Comments Trazodone Other (Please comment) High 10/05/2023 Hallucinations documented as of this encounter (statuses as of 02/14/2024) Medications Medication Sig Dispensed Refills Start Date [...] mouth in the morning. 0 Active Saline [place] 0.65 % Nasal Solution ([place]) Administer into nostril 1 [place] as needed for Congestion. 60 mL 5 [...] chronic kidney disease (HCC),Coronary artery disease involving [place] coronary artery of [place] heart without angina pectoris Take 1 Tablet [...] and stage 3b chronic kidney disease ([facility]) Take 1 Tablet by mouth in the morning. 90 Tablet 3 10/12/2023 Active Atrovent HFA 17 MCG/ACT Inhalation Aerosol Solution (ipratropium)Indicat ions:[place] workers pneumoconiosis ([facility]) Inhale 2 Puffs by mouth in the [...] :HFrEF (heart failure with reduced ejection fraction) ([facility]) Alternate 50 mg, with 100 mg, [...] 1 Tablet before bedtime. 0 02/07/2024 Active Mometasone Furoate 0.1 % External OintmentIndications: Rash Apply topically to affected area daily. 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 GENERAL OSTEOARTHROSIS INSOMNIA W SLEEP APNEA [place] workers pneumoconiosis Restrictive lung disease documented as of this encounter (statuses as of 02/14/2024) Resolved Problems Problem Noted Date Diagnosed Date [...] Rotator cuff rupture 05/22/2003 018 LOC PRIM [id number] 05/22/200310/02 Prepatellar bursitis 05/22/2003 015 Inflammation of sacroiliac joint 10/12/2001 10/16/2014 LOC PRIM OSTEOARTH-HAND 10/12/200110/02 Respiratory abnormality 07/04 Overview: ICD-10 update of inactive term Umbilical hernia 05/10/2018 Insomnia 10/16/2014 Overview: ICD-10 update of inactive term COPD, severity to be determined 07/07/2011 Allergic rhinitis 05/10/2018 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-AUTOMATION TEST 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 07/04 Bilateral carpal tunnel syndrome 05/10/2018 CKD (chronic kidney disease), stage III 12/11/2018 Benign hypertension with CKD (chronic kidney disease) stage III 02/11/2021 Overview: Per CKD protocol documented as of this encounter (statuses as of 02/14/2024) Immunizations Name Administration Dates Next Due COVID-19 [...] 5:30 PM EDT Home Visit [facility] [place], [facility] [address] [place] [address] Ingris Madden RN [address] [place] [address] 02/27/2024 2:30 PM EDT Telemedicine [facility] [place], [facility] [address] [place] [address] Sylvie Crawford CRNP [address] [place] [address] Mara Crystal, Community Health Application Security Architect [address] [place] [address] [place] [address] 03/05/2024 9:15 AM EDT Cardiac Studies Cardiac Studies, [facility] [address] [place] [address] 04/23/2024 11:00 AM EDT Office Visit Cardiology, [facility] [address] [place] [address] Luh Garcia CRNP [address] [place] [address] 07/10/2024 2:40 PM EDT Office Visit Family Medicine [address] [place] [phone] Claude Mata MD [address] [place] [address] [place] [address] 07/15/2024 10:00 AM EDT Nurse Only Ancillary [address] [place] [address] [place], Nurse Annual Wellness [address] [place] [address] [place] [address] 10/01/2024 3:20 PM EST Office Visit Nephrology [address] [place] [address] [facility] [address] 12/02/2024 2:20 PM EST Office Visit Dermatology [address] [place] [address] Dalila West PA-C [address] [place] [address] [place] [address] Scheduled Orders Name Type Priority Associated Diagnoses Orde r Schedule MRI FOOT RIGHT WO CONTRAST Medical Imaging Routine Pressure ulcer, stage III (HCC) Expected: 03/16/2024, Expires: 03/16/2025 Health Maintenance Due Date Last Done Comments COVID-19 Vaccine ( season) 2023 01/07/2022, 12/31/2020, 12/03/2020 DTaP,Tdap,and Td Vaccines (2 - Td or Tdap) 10/14/2023 10/14/2013, 07/22/2008 Depression Screening 07/12/2024 07/12/2023 Albumin/Creatinine Ratio 10/05/2024 024, 02/14/2023, 04/07/2022, Additional history exists CKD PHOS USE SMARTSET 26526 10/05/2024 01/0 01/2024, 05/12/2022, 10/05/2020, Additional history exists CKD HGB USE SMARTSET 39375 02/12/202502/12, 02/13/2024, 12/01/2023, Additional history exists Pneumococcal [...] as of this encounter Visit Diagnoses Diagnosis Pressure ulcer, stage III (HCC)- Primary documented in this encounter Advance [...] patient or by statute hierarchy) Care Teams Human Resources Technician Relationship Specialty Start Date End Date Claude Mata MD [address] [place] [address] [place] [address] PCP - General Family Medicine 11/13/23 documented as of this encounter
--- OUTSIDE RECORDS SUMMARY | 2024-02-27 23:50 | External Medical Summary | Summary of Care ---
Author Name Unknown Organization [facility] Address [address] [place] [address] Phone [phone] Care Team Providers Care Anthropology Department Chair Name Role Phone Claude Mata MD Primary Care Provide r Reason for Visit * Reason Onset Date Comments Test Results Lab 02/15/2024 Encounter Details Date Type Department Care Team (Late st Contact Info) Description 02/15/2024 Telephone Family Medicine [address] [phone] [address] [place] [address] Test Results Lab Allergies Active Allergy Reactions Criticality Noted Date Comments Trazodone Other (Please comment) High 10/05/2023 Hallucinations documented as of this encounter (statuses as of 02/16/2024) Medications Medication Sig Dispensed Refills Start Date [...] mouth in the morning. 0 Active Saline [place] 0.65 % Nasal Solution ([place]) Administer into nostril 1 [place] as needed for Congestion. 60 mL 5 [...] chronic kidney disease (HCC),Coronary artery disease involving [place] coronary artery of [place] heart without angina pectoris Take 1 [...] HFA 17 MCG/ACT Inhalation Aerosol Solution (ipratropium)Indicat ions:[place] workers pneumoconiosis (HCC) Inhale 2 Puffs by [...] as of this encounter (statuses as of 02/16/2024) Active Problems Problem Noted Date Diagnosed Date SOLEDAD (generalized anxiety disorder) 12/01/2023 Coronary artery disease invo lving [place] coronary artery of [place] heart without angina pectoris 12/01/2023 Pulmonary [...] appointment. GENERAL OSTEOARTHROSIS INSOMNIA W SLEEP APNEA [place] workers pneumoconiosis Restrictive lung disease documented as of this encounter (statuses as of 02/16/2024) Resolved Problems Problem Noted Date Diagnosed Date [...] Rotator cuff rupture 05/22/2003 018 LOC PRIM [id number] 05/22/200310/02 Prepatellar bursitis 05/22/2003 015 Inflammation of sacroiliac joint 10/12/2001 10/16/2014 LOC PRIM OSTEOARTH-HAND 10/12/200110/02 Respiratory abnormality 07/04 Overview: ICD-10 update of inactive term Umbilical hernia 05/10/2018 Insomnia 10/16/2014 Overview: ICD-10 update of inactive term COPD, severity to be determined 07/07/2011 Allergic rhinitis 05/10/2018 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 07/04 Bilateral carpal tunnel syndrome 05/10/2018 CKD (chronic kidney disease), stage III 12/11/2018 Benign hypertension with CKD (chronic kidney disease) stage III 02/11/2021 Overview: Per CKD protocol documented as of this encounter (statuses as of 02/16/2024) Immunizations Name Administration Dates Next Due COVID-19 [...] Team (Late st Contact Info) Description 02/21/2024 1:00 PM EDT Imaging Radiology [address] [place] [address] 02/22/2024 5:30 PM EDT [facility] Visit [facility] [place], [facility] [address] [place] [address] Ingris Madden, ARTURO [address] [place] [address] 02/27/2024 2:30 PM EDT Telemedicine [facility] [place], [facility] [address] [place] [address] Sylvie Crawford CRNP [address] [place] [address] Mara Crystal, Community Health Home Inspector [address] [place] [address] [place] [address] 03/05/2024 9:15 AM EDT Cardiac Studies Cardiac Studies, [facility] [address] [place] [address] 04/23/2024 11:00 AM EDT Office Visit Cardiology, [facility] [address] [place] [address] Luh Garcia CRNP [address] [place] [address] 07/10/2024 2:40 PM EDT Office Visit Family Medicine [address] [place] [phone] Claude Mata MD [address] [place] [address] [place] [address] 07/15/2024 10:00 AM EDT Nurse Only Ancillary [address] [place] [address] Rubina, Nurse Annual [address] [place] [address] 10/01/2024 3:20 PM EST Office Visit Nephrology [address] [place] [address] Cande Soni MD [address] [place] [address] 12/02/2024 2:20 PM EST Office Visit Dermatology [address] [place] [address] Dalila West PA-C [address] [place] [address] [place] [address] Scheduled Orders Name Type Priority Associated Diagnoses Orde r Schedule CBC WITH WBC DIFFERENTIAL AND ANEMIA REFLEX WORKUP Lab Routine Other elevated white blood cell (WBC) count Expected: 03/01/2024 (Approximate), Expires: 02/14/2025 Health Maintenance Due Date Last Done Comments COVID-19 Vaccine ( season) 2023 01/07/2022, 12/31/2020, 12/03/2020 DTaP,Tdap,and Td Vaccines (2 - Td or Tdap) 10/14/2023 10/14/2013, 07/22/2008 Depression Screening 07/12/2024 07/12/2023 Albumin/Creatinine Ratio 10/05/2024 024, 02/14/2023, 04/07/2022, Additional history exists CKD PHOS USE SMARTSET 12316 10/05/2024 0101/2024, 05/12/2022, 10/05/2020, Additional history exists CKD HGB USE SMARTSET 26633 02/12/202502/12, 02/13/2024, 12/01/2023, Additional history exists Pneumococcal [...] Chronic kidney disease, stage 3b (HCC)- Primary Other elevated white blood cell (WBC) count documented in this encounter Advance Directives Latest Code Status on File Code Status Date Activated Date Inactivated Comments Full Code 06/26/2019 12:28 PM 06/26/2019 5:13 PM This order reflects the patients wishes and were consensually agreed upon. Healthcare Agents on File Name Relationship Healthcare Agent [facility] p Communication Susu Quezada Adult Child Health Care Repr esentative (appointed verbally by patient or by statute hierarchy) Care Teams Anthropology Department Chair Relationship Specialty Start Date End Date Claude Mata MD [address] [place] [address] [place] [address] PCP - General Family Medicine 11/13/23 documented as of this encounter
--- OUTSIDE RECORDS SUMMARY | 2024-02-27 23:50 | External Medical Summary | Summary of Care ---
Author Name Unknown Organization [facility] Address [address] [place] [address] Phone [phone] Care Team Providers Care Pilot Manager Name Role Phone Claude Manning MD Primary Care Provide r Reason for Visit * Reason Onset Date Comments Medication Refill 02/14/2024 Encounter Details Date Type Department Care Team (Late st Contact Info) Description 02/14/2024 Refill Family Medicine [address] [place] [phone] Claude Manning MD [address] [place] [address] [place] [address] Rash Allergies Active Allergy Reactions Criticality Noted [...] mouth in the morning. 0 Active Saline [place] 0.65 % Nasal Solution ([place]) Administer into nostril 1 [place] as needed for Congestion. 60 mL 5 [...] chronic kidney disease (HCC),Coronary artery disease involving [place] coronary artery of [place] heart without angina pectoris Take 1 Tablet [...] HFA 17 MCG/ACT Inhalation Aerosol Solution (ipratropium)Indica tions:[place] workers pneumoconiosis (HCC) Inhale 2 Puffs by [...] red and itchy areas 135 g 0 4 Active Mometasone Furoate 0.1 % External OintmentIndications :Rash Apply topically to affected area daily. 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 Apply to red and itchy areas Authorizing Provider: CLAUDE MANNING * Telephone Encounter - Sole Velasquez, absorption plant operator helper - 02/14/2024 10:04 AM EDT Did you pend patient's preferred pharmacy and medication before forwarding?yes Pharmacy: [facility] Pharmacy requesting 90 day as pended, please approve if appropriate. Pending Prescriptions: Disp Refills Mometasone Furoate 0.1 % External [id number] g 0 Sig: Apply topically to affected area daily. Apply to red and itchy areas Last Visit: 02/13/2024 (in office), Visit date not found (telemedicine) Next Visit: 07/10/2024 If no future appointments scheduled, and last appointment is greater than a year ago, please schedule patient for a follow-up appointment Last date the medication was ordered: 02/13/2024 Is this request for a controlled substance?No Urine Drug Screen:No results found. However, due to the size of the patient record, not all encounters were searched. Please check Results Review for a complete set of results. Patient Phone Numbers Labs: Lab Results Component Value Date/Time CREAT 1.8 (H) 02/13/2024 02:49 PM CREAT 2.01 (A) 11/23/2023 12:00 AM CREAT 1.5 (H) 10/05/2020 01:11 PM POTASSIUM 4.0 02/13/2024 02:49 PM POTASSIUM 4.2 11/23/2023 12:00 AM POTASSIUM 4.8 10/05/2020 01:11 PM TSH 3.12 02/13/2024 02:49 PM TSH 3.58 05/10/2018 08:37 AM LDLCALC 49 12/21/2023 11:37 AM LDLCALC 128 04/01/2020 08:00 AM LDLDIRECT NOT APPLICABLE 04/01/2020 08:00 AM ALT 24 02/13/2024 02:49 PM ALT 33 04/01/2020 08:00 AM HGBA1C 5.6 04/07/2022 12:40 PM HGBA1C 5.7 01/04/2007 08:40 AM documented in this encounter Plan of Treatment Upcoming Encounters Date Type Department Care Team (Late st Contact Info) Description 02/22/2024 5:30 PM EDT Home Visit [facility] [place], [facility] [address] [address] Ingris Madden RN [address] [address] 02/27/2024 2:30 PM EDT Telemedicine [facility], [facility] [address] [address] Sylvie Crawford CRNP [address] [address] Mara Crystal, [facility] [address] [place] [address] 03/05/2024 9:15 AM EDT Cardiac Studies Cardiac Studies, [facility] [address] [facility] [place] [address] 04/23/2024 11:00 AM EDT Office Visit Cardiology, [facility] [address] [facility] [place] [address] Luh Garcia CRNP 132 [facility] [place] [address] 07/10/2024 2:40 PM EDT Office Visit Family Medicine [address] [place] [phone] Claude Manning MD [address] [place] [address] [place] [address] 07/15/2024 10:00 AM EDT Nurse Only Ancillary [address] [place] [address] [place], Nurse Annual [address] [place] [address] 10/01/2024 3:20 PM EST Office Visit Nephrology [address] [place] [address] Cande Soni MD [address] [facility] [place] [address] 12/02/2024 2:20 PM EST Office Visit Dermatology [address] [place] [address] Dalila West PA-C [address] [place] [address] [place] [address] Health Maintenance Due Date Last Done Comments COVID-19 Vaccine ( season) 2023 01/07/2022, 12/31/2020, 12/03/2020 DTaP,Tdap,and Td Vaccines (2 - Td or Tdap) 10/14/2023 10/14/2013, 07/22/2008 Depression Screening 07/12/2024 07/12/2023 Albumin/Creatinine Ratio 10/05/2024 024, 02/14/2023, 04/07/2022, Additional history exists CKD PHOS USE SMARTSET 51888 10/05/20240 01/2024, 05/12/2022, 10/05/2020, Additional history exists CKD HGB USE SMARTSET 05905 02/12/202502/12, 02/13/2024, 12/01/2023, Additional history exists Pneumococcal [...] Rash Rash and other nonspecific skin eruption documented in this encounter Advance Directives Latest Code Status on File Code Status Date Activated Date Inactivated Comments Full Code 06/26/2019 12:28 PM 06/26/2019 5:13 PM This order reflects the patients wishes and were consensually agreed upon. Healthcare Agents on File Name Relationship Healthcare Agent [facility] p Communication Susu Quezada Adult Child Health Care Repr esentative (appointed verbally by patient or by statute hierarchy) Care Teams Pilot Manager Relationship Specialty Start Date End Date Claude Manning MD [address] [place] [address] [place] [address] PCP - General Family Medicine 11/13/23 documented as of this encounter
--- OUTSIDE RECORDS SUMMARY | 2024-02-27 23:50 | External Medical Summary | Summary of Care ---
Author Name Unknown Organization [facility] Address [address] [place] [address] Phone [phone] Care Team Providers Care Sports Writer Name Role Phone Claude Mata MD Primary Care Provide r Reason for Visit * Reason Comments Outpatient Testing Encounter Details Date Type Department Care Team (Late st Contact Info) Description 02/13/2024 2:50 PM EDT Laboratory Laboratory [address] [place] [phone] [place] [address] Chronic kidney disease, stage 3b (HCC) Allergies [...] mouth in the morning. 0 Active Saline [place] 0.65 % Nasal Solution ([place]) Administer into nostril 1 [place] as needed for Congestion. 60 mL 5 [...] HFA 17 MCG/ACT Inhalation Aerosol Solution (ipratropium)Indicat ions:[place] workers pneumoconiosis (HCC) Inhale 2 Puffs by [...] (heart failure with reduced ejection fraction) ([facility]) Alternate 50 mg, with 100 mg, daily. [...] red and itchy areas 45 g 0 02/13/2024 Active documented as of this encounter (statuses [...] Overview: Wears 2 LPM via [place], DME: [facility] Chronic rhinitis 04/08/2022 [...] appointment. 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 07/04 Bilateral carpal tunnel syndrome 05/10/2018 CKD [...] 5:30 PM EDT Home Visit [facility] [place], [facility] [address] [address] Ingris Madden RN [address] [address] 02/27/2024 2:30 PM EDT Tele[facility]icine [facility] [address] [address] Sylvie Crawford CRNP [address] [address] Mara Crystal, Community [facility] Doors Prefitter [address] [place] [address] [place] [address] 03/05/2024 9:15 AM EDT Cardiac Studies Cardiac Studies, [facility] [address] [address] 04/23/2024 11:00 AM EDT Office Visit Cardiology, [facility] [address] [address] Luh Garcia CRNP [address] [address] 07/10/2024 2:40 PM EDT Office Visit Family Medicine [address] [place] [phone] Claude Mata MD [address] [place] [address] [place] [address] 07/15/2024 10:00 AM EDT Nurse Only Ancillary [address] [place] [address] [place], Nurse Annual Wellness [address] [place] [address] [place] [address] 10/01/2024 3:20 PM EST Office Visit Nephrology [address] [place] [address] Cande Soni MD [address] [place] [address] 12/02/2024 2:20 PM EST Office Visit Dermatology [address] [place] [address] Dalila West PA-C [address] [place] [address] [place] [address] Pending Results Name Type Priority Associated Diagnoses Date /Time CBC WITH WBC DIFFERENTIAL AND ANEMIA REFLEX WORKUP Lab Routine Chronic kidney disease, stage 3b (HCC) 02/13/2024 2:49 PM EDT COMPREHENSIVE METABOLIC PANEL Lab Routine Chronic kidney disease, stage 3b (HCC) 02/13/2024 2:49 PM EDT ANEMIA CBC Lab Routine Chronic kidney disease, stage 3b (HCC) 02/13/2024 2:49 PM EDT DIFFERENTIAL, AUTOMATED Lab Routine Chronic kidney disease, stage 3b (HCC) 02/13/2024 2:49 PM EDT ANEMIA REFLEX CHEMISTRY HOLD Lab Routine Chronic kidney disease, stage 3b (HCC) 02/13/2024 2:49 PM EDT Health Maintenance Due Date Last Done Comments COVID-19 Vaccine ( season) 2023 01/07/2022, 12/31/2020, 12/03/2020 DTaP,Tdap,and Td Vaccines (2 - Td or Tdap) 10/14/2023 10/14/2013, 07/22/2008 Depression Screening 07/12/2024 07/12/2023 Albumin/Creatinine Ratio 10/05/2024 024, 02/14/2023, 04/07/2022, Additional history exists CKD PHOS USE SMARTSET 41082 10/05/2024 01/0 01/2024, 05/12/2022, 10/05/2020, Additional history exists CKD HGB USE SMARTSET 89858 11/30/202411/30, 12/01/2023, 10/05/2023, Additional history exists Pneumococcal [...] Diagnosis Chronic kidney disease, stage 3b (HCC) documented [...] or by statute hierarchy) Care Teams Sports Writer Relationship Specialty Start Date End Date Claude Mata MD [address] [place] [address] [place] [phone] PCP - General Family Medicine 11/13/23 documented as of this encounter
--- OUTSIDE RECORDS SUMMARY | 2024-02-27 23:50 | External Medical Summary ---
Author Name Unknown Address Unknown Organization K01:[facility] - [address] [place] [address] Laboratory Report Ordering Provider Test Date Status SHEREEN GARIBAY 02/13/2024 14:49:00 Final Observation Date Value Abnormality Reference (Units ) Status Vitamin B12 02/13/2024 14:49:00 1361 Above high normal [id number] (pg/mL) Final Performing Location LABORATORY C - [address] [place] [address]
--- OUTSIDE RECORDS SUMMARY | 2024-02-27 23:50 | External Medical Summary | Summary of Care ---
Author Name Unknown Organization [facility] Address [address] [place] [address] Phone [phone] Care Team Providers Care Internal Medicine Physician Assistant Name Role Phone Claude Mata MD Primary Care Provide r Reason for Visit * Reason Comments [facility]: Enrollment Encounter Details Date Type Department Care Team (Late st Contact Info) Description 02/10/2024 10:30 AM EDT [facility] Visit [facility], [facility] [address] [place] [address] [facility], Nurse [facility] [address] [place] [address] Allergies Active Allergy Reactions Criticality Noted Date Comments Trazodone Other (Please comment) High 10/05/2023 Hallucinations documented as of this encounter (statuses as of 02/10/2024) Medications Medication Sig Dispensed Refills Start Date [...] mouth in the morning. 0 Active Saline [place] 0.65 % Nasal Solution (Bibb) Administer into nostril 1 [place] as needed for Congestion. 60 mL 5 [...] chronic kidney disease (HCC),Coronary artery disease involving tribal coronary artery of tribal heart without angina pectoris Take 1 Tablet [...] HFA 17 MCG/ACT Inhalation Aerosol Solution (ipratropium)Indicat ions:[place] workers pneumoconiosis (HCC) Inhale 2 Puffs by [...] as of this encounter (statuses as of 02/10/2024) Active Problems Problem Noted Date Diagnosed Date SOLEDAD (generalized anxiety disorder) 12/01/2023 Coronary artery disease invo lving tribal coronary artery of tribal heart without angina pectoris 12/01/2023 Pulmonary hypertension, unspecified 10/07/2023 HFrEF (heart failure with reduced ejection fract ion) 09/19/2023 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 Chronic rhinitis 04/08/2022 [...] appointment. GENERAL OSTEOARTHROSIS INSOMNIA W SLEEP APNEA [place] workers pneumoconiosis Restrictive lung disease documented as of this encounter (statuses as of 02/10/2024) Resolved Problems Problem Noted Date Diagnosed Date [...] Rotator cuff rupture 05/22/2003 018 LOC PRIM [id number] 05/22/200310/02 Prepatellar bursitis 05/22/2003 015 Inflammation of sacroiliac joint 10/12/2001 10/16/2014 LOC PRIM OSTEOARTH-HAND 10/12/200110/02 Respiratory abnormality 07/04 Overview: ICD-10 update of inactive term Umbilical hernia 05/10/2018 Insomnia 10/16/2014 Overview: ICD-10 update of inactive term COPD, severity to be determined 07/07/2011 Allergic rhinitis 05/10/2018 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 07/04 Bilateral carpal tunnel syndrome 05/10/2018 CKD (chronic kidney disease), stage III 12/11/2018 Benign hypertension with CKD (chronic kidney disease) stage III 02/11/2021 Overview: Per CKD protocol documented as of this encounter (statuses as of 02/10/2024) Immunizations Name Administration Dates Next Due COVID-19 [...] Sign Reading Time Taken Comments Blood Pressure 134/64 02/10/2024 10:58 AM EDT Pulse 75 02/10/2024 10:58 AM EDT Temperature 36.7 C (98.1 F) 02/10/2024 1 0:58 AM EDT Respiratory Rate 18 02/10/2024 10:5 8 AM EDT Oxygen Saturation 98% 02/10/2024 10: 58 AM EDT Inhaled Oxygen Concentration - - Weight 76.2 kg (167 lb 14.4 oz) 024 10:58 AM EDT Height - - Body Mass Index 21.41 10/25/2023 12:45 PM EST documented in this encounter Progress Notes * Cheryl Carter RN - 02/10/2024 8:49 AM EDT Images from the original note were not included. [facility] Pharmacist Per [employer]/KRISTEN Visit Date: 02/10/2024 Time: 8:49 AM Name: Ned Elliott : 1935 Current Concerns: Pt seen for Enrollment to [facility] and K[facility]STEN #1 Admitted to [facility] 01/30/24 - 02/07/24 for Acute on chronic heart failure with reduced EF, Covid-19 Infection, Rhinovirus infection Torsemide was changed to 80mg daily Started on Hydralazine 10mg twice a day Using Memetosone cream for rash of back and arms He reports it is helping He reports it often gets more itchy when he gets anxious Has wound of left 5th toe Wound care is to cleanse with saline, apply Aquacel ag and cover with optifoam every day Goes to wound clinic every week and is scheduled to have MRI at 430am Monday morning but states he is not going to make it and they couldn't get him in another time Requesting to be done at [place] or [facility] sent to scheduling to assist in this Getting Home Health through [facility] for SN Wt today was 167.9 lbs Has been ranging 167 - 170 since home from hospital Continues to have mild abdominal distention but reports it has improved and is not as firm Trace edema of RLE, no edema of LLE Has SOB with exertion, at baseline Physical Exam: BP 134/64 | Pulse 75 | Temp 36.7 C (98.1 F) | Resp 18 | Wt 76.2 kg (167 lb 14.4 oz) | SpO2 98% | BMI 21.41 kg/m | BSA 2 m Pain 0 Physical Exam Constitutional: General: He is not in acute distress. Cardiovascular: Rate and Rhythm: Normal rate and regular rhythm. Pulses: Normal pulses. Heart sounds: Normal heart sounds. Pulmonary: Effort: Pulmonary effort is normal. Breath sounds: Normal breath sounds. Abdominal: General: Bowel sounds are normal. Palpations: Abdomen is soft. Musculoskeletal: Right lower leg: Edema (trace) present. Skin: General: Skin is warm and dry. Neurological: Mental Status: He is alert and oriented to person, place, and time. Problems/Symptoms: Review of Systems Constitutional: Negative. HENT: Negative. Eyes: Negative. Respiratory: Positive for shortness of breath (BUTT - at baseline). Cardiovascular: Positive for leg swelling (RLE). Gastrointestinal: Negative. Genitourinary: Negative. Musculoskeletal: Positive for arthralgias and back pain. Skin: Positive for wound (right foot). Neurological: Negative. Hematological: Bruises/bleeds easily. Psychiatric/Behavioral: Negative. Medication Reconciliation: (See medication list) Does patient take medications as ordered: Yes Patient Well Being: PHQ2/9: No questionnaires available. Pt lives alone in one store home He has a dtr and son in law nearby that help Dtr does his daily wound care and helps with med box if needed Pt uses a cane outside of home Denies any recent falls [facility]-10 Completed this Visit: Yes. [facility]-10: Reason Completed: Enrollment Status post ED visit/hospital admission [facility]-10 ([facility]) Fall Risk Assessment Tool Age 65+: Yes (02/10/241099) Diagnosis (3 or more co-existing): Yes (02/10/241099) Prior history of falls within 3 months: No (02/10/241099) Incontinence: No (02/10/241099) Visual impairment: No (02/10/241099) Impaired functional mobility: No (02/10/241099) Environmental hazards: No (02/10/241099) Poly Pharmacy (4 or more prescriptions - any type): Yes (02/10/241099) Pain affecting level of function: No (02/10/241099) Cognitive impairment: No (02/10/241099) Score - a score of 4 or more is considered at risk for fallin (02/10/241099) [facility]-10 Interventions: Fall education provided, reviewed/provided Fall brochure Advanced Care Planning: No documentation, acp in process. Patient's Goals of Care: Better breathing Get my heart better Get a stent in my heart Reinforcement/Education: Reviewed HF symptom monitoring: -Weigh self daily [...] if at night -increased fatigue or vertigo Educated on home safety: Create a fall proof home Clear floors of clutter, loose wires, throw rugs, and cords. Make sure halls, stairways, and entrances are well lit. Install a nightlight in your bedroom, hallway and bathroom. Install grab bars or handrails in the bathroom and on stairs. Use a non-skid tub/shower mat. Avoid climbing on a chair; instead use a step stool with a high handrail. Keep sidewalks and steps in good repair Keep steps and sidewalks free of snow and ice. Using aids to support and prevent falls If you have poor balance or have fallen in the past, consider additional support such as a cane or walker. Use a cane with good support and that is the proper length for you. Use a walker if a cane doesnt provide enough support. Avoid medications that increase the risk of falling by causing dizziness, change in sensation or slowed reflexes. Certain medicines may cause falls - blood pressure pills, heart medicines, water pills, or sleepingpills. Be sure to understand each medicine that you are taking and any side effects that may occur. Improve your balance and flexibility with muscle strengthening exercises. Ask your health care provider for some exercises that will be right for you. Reinforced safety education and fall prevention. and Reinforced medication regimen. Timing., Dosing., and Purspose. Treatment/Plan: Continue meds as prescribed/reviewed Low Na diet Weigh self daily and record Atrovent inhaler 4x a day Ntg prn chest pain [facility] for SN Wound care to right toe daily - Aqacel ag and optifoam Wound clinic weekly Oxygen at 2 l/min via [facility] Home Interventions Provided: Home Intervention: Wound Care and Other; eval Reinforced current Plan of Care, including self-management and medication regimen Updated Exacerbation Plan Patient's 'Red Flags': Wt gain of 3 lbs in 24 hrs or 5 lbs in one week More SOB Worsening edema or abd bloating Patient Needs to Remember: Call [facility] at with any new or worsening health concerns or problems, red flag symptoms. Referrals Needed: Other none Follow Up: Is there cellular connectivity/connectivity in the home? Yes Does the patient have internet in the home? Yes Patient encouraged to call the intake phone number for all urgent but not emergent issues. Is the patient new to [facility] within the last 30 days? Yes, Is this a Transitions of Care visit? Yes, this is the 1st visit. Provider is in agreement with Plan of Care: Yes Scheduled to follow up with patient in 2 weeks with RNCM, following week with provider Cheryl Carter RN 02/10/2024 8:49 AM documented in this encounter Plan of Treatment Upcoming Encounters Date Type Department Care Team (Late st Contact Info) Description 02/13/2024 2:00 PM EDT Office Visit Family Medicine [address] [place] [phone] [address] Whitaker [address] [place] [address] 02/22/2024 5:30 PM EDT [facility] [address] [place] [phone] Ingris Madden, ARTURO [address] [place] [address] 02/27/2024 2:30 PM EDT Telemedicine [facility], [facility] [address] [place] [address] Sylvie Crawford CRNP [address] [place] [address] [facility] Senior Firewall Engineer [address] [place] [address] [place] [address] 03/05/2024 9:15 AM EDT Cardiac Studies Cardiac Studies, [facility] [address] [facility] [place] [address] 04/23/2024 11:00 AM EDT Office Visit Cardiology, [facility] [address] [facility] [place] [address] Luh Garcia [facility] [address] 07/10/2024 2:40 PM EDT Office Visit Family Medicine [address] [place] [phone] Claude Mata MD [address] [place] [address] [place] [address] 07/15/2024 10:00 AM EDT Nurse Only Ancillary [address] [place] [address] Rubina, Nurse [address] [place] [address] 10/01/2024 3:20 PM EST Office Visit Nephrology [address] [place] [address] Cande Soni MD [address] [place] [address] [place] [address] 12/02/2024 2:20 PM EST Office Visit Dermatology [address] [place] [address] Dalila West PA-C [address] [place] [address] [place] [address] Health Maintenance Due Date Last Done Comments COVID-19 Vaccine ( - 2022- season) 2023 01/07/2022, 12/31/2020, 12/03/2020 DTaP,Tdap,and Td Vaccines (2 - Td or Tdap) 10/14/2023 10/14/2013, 07/22/2008 Depression Screening 07/12/2024 07/12/2023 Albumin/Creatinine Ratio 10/05/2024 024, 02/14/2023, 04/07/2022, Additional history exists CKD PHOS USE SMARTSET 83810 10/05/202401/2024, 05/12/2022, 10/05/2020, Additional history exists CKD HGB USE SMARTSET 40796 11/30/202411/30, 12/01/2023, 10/05/2023, Additional history exists Pneumococcal [...] patient or by statute hierarchy) Care Teams Internal Medicine Physician Assistant Relationship Specialty Start Date End Date Claude Mata MD [address] [place] [address] [place] [address] PCP - General Family Medicine 11/13/23 documented as of this encounter"
--- OUTSIDE RECORDS SUMMARY | 2024-02-27 23:50 | External Medical Summary ---
Author Name Unknown Address Unknown Organization K01:[facility] - [address] [facility] [address] Laboratory Report Ordering Provider Test Date Status SHEREEN GARIBAY 02/13/2024 14:49:00 Final Observation Date Value Abnormality Reference (Units ) Status SYNC LEUKOCYTES IN BLOOD BY AUTOMATED COUNT 02/13/2024 14:49:00 15.30 Above high normal 4.00-10.80 (K/uL) Final Segs 02/13/2024 14:49:00 73.6 40.0-75.0 (%) Final Lymphs % 02/13/2024 14:49:00 10.0 Below low normal 18.0-42.0 (%) Final Monos 02/13/2024 14:49:00 10.1 1.0-11.0 (%) Final Eosinophils 02/13/2024 14:49:00 5.2 0.0-6.0 (%) Final Basos 02/13/2024 14:49:00 0.8 0.0-2.0 (%) Final Immature Granulocyte, Percent 02/13/2024 14:49:00 0.3 0.0-2.0 (%) Final Absolute Segs 02/13/2024 14:49:00 11.24 Above high normal 1.80-7.70 (K/uL) Final Lymphs, absolute 02/13/2024 14:49:00 1.53 1.00-4.80 (K/ul) Final Monos, Abs 02/13/2024 14:49:00 1.55 Above high normal 0.00-1.10 (K/uL) Final Eos, Abs 02/13/2024 14:49:00 0.80 Above high normal 0.00-0.70 (K/uL) Final Basos, Abs 02/13/2024 14:49:00 0.13 0.00-0.20 (K/uL) Final Immature Granulocytes, Number 02/13/2024 14:49:00 0.05 0.00-0.20 (K/uL) Final Performing Location [facility] - [facility] [address] [facility] [address]
--- OUTSIDE RECORDS SUMMARY | 2024-02-27 23:50 | External Medical Summary ---
Author Name Unknown Address Unknown Organization K01:[facility] - 100 [facility] [place] [address] Laboratory Report Ordering Provider Test Date Status SHEREEN GARIBAY 02/13/2024 14:49:00 Final Observation Date Value Abnormality Reference (Units ) Status BUN 02/13/2024 14:49:00 55 Above high normal 6-20 (mg/dL) Final Creatinine 02/13/2024 14:49:00 1.8 Above high normal 0.6-1.2 (mg/dL) Final Glomerular filtration rate/1.73 sq M.predicted [Volume Rate/Area] in Serum, Plasma or Blood by Creatinine-based formula (CKD-EPI) 02/13/2024 14:49:00 35 Below low normal >=60 (mL/min) Final eGFR is calculated based on the CKD-EPI 2020 equation Sodium 02/13/2024 14:49:00 139 135-146 (m mol/L) Final Potassium 02/13/2024 14:49:00 4.0 3.5-5.1 (m mol/L) Final Cl 02/13/2024 14:49:00 94 Below low normal 98- 107 (mmol/L) Final CO2 02/13/2024 14:49:00 29 22-32 (mmo l/L) Final Anion gap 02/13/2024 14:49:00 16 Above high normal 7- 15 (mmol/L) Final Glucose 02/13/2024 14:49:00 107 70-120 (mg /dL) Final Albumin 02/13/2024 14:49:00 4.2 3.8-5.0 (g /dL) Final AST (Aspartate aminotransferase) 02/13/2024 14:49:00 22 10-50 (U/L) Fin al Alk Phos 02/13/2024 14:49:00 76 35-130 (U/ L) Final Bilirubin, Total 02/13/2024 14:49:00 0.4 <=1 .2 (mg/dL) Final Calcium 02/13/2024 14:49:00 9.9 8.4-10.2 ( mg/dL) Final Protein 02/13/2024 14:49:00 7.4 6.0-8.3 (g /dL) Final ALT (Alanine aminotransferase) 02/13/2024 14:49:00 24 10-50 (U/L) Michael nixon Performing Location [facility] - [address] [facility] [address]
--- OUTSIDE RECORDS SUMMARY | 2024-02-27 23:50 | External Medical Summary ---
Author Name Unknown Address Unknown Organization K01:[facility] - [address] [place] [address] Laboratory Report Ordering Provider Test Date Status SHEREEN GARIBAY 02/13/2024 14:49:00 Final Observation Date Value Abnormality Reference (Units ) Status Ferritin 02/13/2024 14:49:00 335 30-400 (ng /mL) Final Performing Location [facility] - [address] [place] [address]
--- OUTSIDE RECORDS SUMMARY | 2024-02-27 23:50 | External Medical Summary ---
Author Name Unknown Address Unknown Organization K01:[facility] - [address] [facility] [address] Laboratory Report Ordering Provider Test Date Status SHEREEN GARIBAY 02/13/2024 14:49:00 Final Observation Date Value Abnormality Reference (Units ) Status WBC, Total 02/13/2024 14:49:00 15.30 Above high normal 4 .00-10.80 (K/uL) Final RBC 02/13/2024 14:49:00 4.18 4.50-5.25 (M/uL) Final Hemoglobin 02/13/2024 14:49:00 11.9 Below low normal 14 .0-16.8 (g/dL) Final Anemia reflex testing trigge rs on a HGB < 12.0 for Females and HGB < 13.0 for Males in accordance with the WHO Anemia Guidelines
Anemia reflex testing triggers on a HGB < 12.0 for Females and HGB < 13.0 for Males in accordance with the WHO Anemia Guidelines HCT 02/13/2024 14:49:00 38.2 Below low normal 40. 0-48.4 (%) Final MCV 02/13/2024 14:49:00 91.4 82.0-99.5 (fL) Final MCH 02/13/2024 14:49:00 28.5 27.0-34.0 (pg) Final MCHC 02/13/2024 14:49:00 31.2 32.0-36.0 (g/dL) Final RDW 02/13/2024 14:49:00 16.2 11.5-15.5 (%) Final Platelets 02/13/2024 14:49:00 270 140-400 (K /uL) Final MPV 02/13/2024 14:49:00 10.9 6.6-11.1 ( fL) Final Nucleated erythrocytes/100 leukocytes [Ratio] in Blood by Automated count 02/13/2024 14:49:00 0 <=0 (/100 WBCs) Final Performing Location [facility] - [address] [facility] [address]
--- OUTSIDE RECORDS SUMMARY | 2024-02-27 23:51 | External Medical Summary | Summary of Care ---
Author Name Unknown Organization [facility] Address [address] [place] [address] Phone [phone] Care Team Providers Care Filter Tender Jelly Name Role Phone Claude Mata MD Primary Care Provide r Encounter Details Date Type Department Care Team (Late st Contact Info) Description 02/06/2024 Population Health External Data Unspecified Department Allergies Active Allergy Reactions Criticality Noted Date Comments Trazodone Other (Please comment) High 10/05/2023 Hallucinations documented as of this encounter (statuses as of 02/06/2024) Medications Medication Sig Dispensed Refills Start Date [...] mouth in the morning. 0 Active Saline [place] 0.65 % Nasal Solution (Dare) Administer into nostril 1 [place] as needed for Congestion. 60 mL 5 [...] chronic kidney disease (HCC),Coronary artery disease involving [place] coronary artery of [place] heart without angina pectoris Take 1 Tablet [...] and stage 3b chronic kidney disease ([facility]) Take 1 Tablet by mouth [...] HFA 17 MCG/ACT Inhalation Aerosol Solution (ipratropium)Indicat ions:[place] workers pneumoconiosis ([facility]) Inhale 2 Puffs by mouth [...] (heart failure with reduced ejection fraction) ([facility]) Alternate 50 mg, with 100 [...] as of this encounter (statuses as of 02/06/2024) Active Problems Problem Noted Date Diagnosed Date SOLEDAD (generalized anxiety disorder) 12/01/2023 Coronary artery disease invo lving [place] coronary artery of [place] heart without angina pectoris 12/01/2023 Pulmonary hypertension, unspecified 10/07/2023 HFrEF (heart failure with reduced ejection fract ion) 09/19/2023 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 GENERAL OSTEOARTHROSIS INSOMNIA W SLEEP APNEA [place] workers pneumoconiosis Restrictive lung disease documented as of this encounter (statuses as of 02/06/2024) Resolved Problems Problem Noted Date Diagnosed Date [...] Rotator cuff rupture 05/22/2003 018 LOC PRIM [id number] 05/22/200310/02 Prepatellar bursitis 05/22/2003 015 Inflammation of sacroiliac joint 10/12/2001 10/16/2014 LOC PRIM OSTEOARTH-HAND 10/12/200110/02 Respiratory abnormality 07/04 Overview: ICD-10 update of inactive term Umbilical hernia 05/10/2018 Insomnia 10/16/2014 Overview: ICD-10 update of inactive term COPD, severity to be determined 07/07/2011 Allergic rhinitis 05/10/2018 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 [address] [place] [address] 04/23/2024 11:00 AM EDT Office Visit Cardiology, [facility] [address] [place] [address] Luh Garcia CRNP [address] [place] [address] 07/10/2024 2:40 PM EDT Office Visit Family Medicine [address] [place] [phone] Claude Mata MD [address] [place] [address] [place] [address] 07/15/2024 10:00 AM EDT Nurse Only Ancillary [address] [place] [address] [place], Nurse Annual Wellness [address] [place] [address] [place] [address] 10/01/2024 3:20 PM EST Office Visit Nephrology [address] [place] [address] Cande Soni MD [address] [place], [place] [address] [address] 12/02/2024 2:20 PM EST Office Visit Dermatology [address] [place] [address] Dalila West PA-C [address] [place] [address] [place] [address] Health Maintenance Due Date Last Done Comments COVID-19 Vaccine ( season) 2023 01/07/2022, 12/31/2020, 12/03/2020 DTaP,Tdap,and Td Vaccines (2 - Td or Tdap) 10/14/2023 10/14/2013, 07/22/2008 Depression Screening 07/12/2024 07/12/2023 Albumin/Creatinine Ratio 10/05/2024 024, 02/14/2023, 04/07/2022, Additional history exists CKD PHOS USE SMARTSET 70692 10/05/2024/01/2024, 05/12/2022, 10/05/2020, Additional history exists CKD HGB USE SMARTSET 84539 11/30/202411/30, 12/01/2023, 10/05/2023, Additional history exists Pneumococcal [...] patient or by statute hierarchy) Care Teams Filter Tender Jelly Relationship Specialty Start Date End Date Claude Mata MD [address] [place] [address] [place] [address] PCP - General Family Medicine 11/13/23 documented as of this encounter
--- OUTSIDE RECORDS SUMMARY | 2024-02-27 23:51 | External Medical Summary | Summary of Care ---
Author Name Unknown Organization [facility] Address [address] [place] [address] Phone [phone] Care Team Providers Care Fruit Or Nut Grower Name Role Phone Claude Mata MD Primary Care Provide r Encounter Details Date Type Department Care Team (Late st Contact Info) Description 02/07/2024 Population Health External Data Unspecified Department Allergies Active Allergy Reactions Criticality Noted Date Comments Trazodone Other (Please comment) High 10/05/2023 Hallucinations documented as of this encounter (statuses as of 02/07/2024) Medications Medication Sig Dispensed Refills Start Date [...] mouth in the morning. 0 Active Saline [place] 0.65 % Nasal Solution ([place]) Administer into nostril 1 [place] as needed for Congestion. 60 mL 5 [...] failure and stage 3b chronic kidney disease ([facility]) Take 1 Tablet by mouth in the [...] HFA 17 MCG/ACT Inhalation Aerosol Solution (ipratropium)Indicat ions:[place] workers pneumoconiosis ([facility]) Inhale 2 Puffs by mouth in the morning and 2 Puffs at noon and 2 Puffs in the evening and 2 Puffs before bedtime. 38.7 g 1 10/25/2023 Active guaiFENesin ER 600 MG Oral Tablet Extended Release 12 Hour (Mucinex) Take 1 Tablet by mouth daily. 0 Active Torsemide 100 MG Oral Tablet (Demadex)Indications :HFrEF (heart failure with reduced ejection fraction) ([facility]) Alternate 50 mg, with 100 mg, daily. [...] as of this encounter (statuses as of 02/07/2024) Active Problems Problem Noted Date Diagnosed Date [...] Overview: Wears 2 LPM via [place], DME: [facility] Chronic rhinitis 04/08/2022 Lung [...] appointment. GENERAL OSTEOARTHROSIS INSOMNIA W SLEEP APNEA [place] workers pneumoconiosis Restrictive lung disease documented as of this encounter (statuses as of 02/07/2024) Resolved Problems Problem Noted Date Diagnosed Date [...] Rotator cuff rupture 05/22/2003 018 LOC PRIM [id number] 05/22/200310/02 Prepatellar bursitis 05/22/2003 015 Inflammation of sacroiliac joint 10/12/2001 10/16/2014 LOC PRIM OSTEOARTH-HAND 10/12/200110/02 Respiratory abnormality 07/04 Overview: ICD-10 update of inactive term Umbilical hernia 05/10/2018 Insomnia 10/16/2014 Overview: ICD-10 update of inactive term COPD, severity to be determined 07/07/2011 Allergic rhinitis 05/10/2018 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 NOS-FRAUD REPRESENTATIVE 07/04 Bilateral carpal tunnel syndrome 05/10/2018 CKD (chronic kidney disease), stage III 12/11/2018 Benign hypertension with CKD (chronic kidney disease) stage III 02/11/2021 Overview: Per CKD protocol documented as of this encounter (statuses as of 02/07/2024) Immunizations Name Administration Dates Next Due COVID-19 [...] 2:00 PM EDT Office Visit Family Medicine [address] [place] [phone] Deborah Whitaker [address] [place] [address] 03/05/2024 9:15 AM EDT Cardiac Studies Cardiac Studies, [facility] [address] [place] [address] 04/23/2024 11:00 AM EDT Office Visit Cardiology, [facility] [address] [place] [address] Luh Garcia CRNP [address] [place] [address] 07/10/2024 2:40 PM EDT Office Visit Family Medicine [address] [place] [phone] Claude Mata MD [address] [place] [address] [place] [address] 07/15/2024 10:00 AM EDT Nurse Only Ancillary [address] [place] [address] [place], Nurse [address] [place] [address] 10/01/2024 3:20 PM EST Office Visit Nephrology [address] [place] [address] Cande Soni MD [address] [facility], [place] [address] 12/02/2024 2:20 PM EST Office Visit Dermatology [address] [place] [address] Dalila West PA-C [address] [place] [address] [place] [address] Health Maintenance Due Date Last Done Comments COVID-19 Vaccine ( season) 2023 01/07/2022, 12/31/2020, 12/03/2020 DTaP,Tdap,and Td Vaccines (2 - Td or Tdap) 10/14/2023 10/14/2013, 07/22/2008 Depression Screening 07/12/2024 07/12/2023 Albumin/Creatinine Ratio 10/05/2024 024, 02/14/2023, 04/07/2022, Additional history exists CKD PHOS USE SMARTSET 18018 10/05/2024 01/0 01/2024, 05/12/2022, 10/05/2020, Additional history exists CKD HGB USE SMARTSET 17579 11/30/202411/30, 12/01/2023, 10/05/2023, Additional history exists Pneumococcal [...] patient or by statute hierarchy) Care Teams Fruit Or Nut Grower Relationship Specialty Start Date End Date Claude Mata MD [address] [place] [address] [place] [phone] PCP - General Family Medicine 11/13/23 documented as of this encounter
--- OUTSIDE RECORDS SUMMARY | 2024-02-27 23:51 | External Medical Summary | Summary of Care ---
Author Name Unknown Organization [facility] Address [address] [place] [address] Phone [phone] Care Team Providers Care Manager Mail Name Role Phone Claude Mata MD Primary Care Provide r Reason for Visit * Reason Onset Date Comments [facility]: Screening 02/08/2024 Encounter Details Date Type Department Care Team (Late st Contact Info) Description 02/08/2024 Telephone [facility], [facility] [address] [facility] [place] [address] [facility], Nurse [facility] [address] [place] [address] [facility]: Screening Allergies Active Allergy Reactions Criticality Noted Date Comments Trazodone Other (Please comment) High 10/05/2023 Hallucinations documented as of this encounter (statuses as of 02/08/2024) Medications Medication Sig Dispensed Refills Start Date [...] mouth in the morning. 0 Active Saline [place] 0.65 % Nasal Solution ([place]) Administer into nostril 1 [place] as needed for Congestion. 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 06/12/2023 Chronic systolic heart failure 04/10/2023 Interstitial pulmonary disease 04/10/2023 Medical home patient encounter 03/15/2023 Nocturnal hypoxemia 04/08/2022 Overview: Wears 2 LPM via [place], DME: [facility] Chronic rhinitis 04/08/2022 Lung nodules 04/08/2022 [...] as of this encounter (statuses as of 02/08/2024) Resolved Problems Problem Noted Date Diagnosed Date [...] Rotator cuff rupture 05/22/2003 018 LOC PRIM [id number] 05/22/200310/02 Prepatellar bursitis 05/22/2003 015 Inflammation of sacroiliac joint 10/12/2001 10/16/2014 LOC PRIM OSTEOARTH-HAND 10/12/200110/02 Respiratory abnormality 07/04 Overview: ICD-10 update of inactive term Umbilical hernia 05/10/2018 Insomnia 10/16/2014 Overview: ICD-10 update of inactive term COPD, severity to be determined 07/07/2011 Allergic rhinitis 05/10/2018 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 A review of this chart was completed and: Ned meets criteria for [facility]. Jump to Initiation Referring care team was notified via : Epic communication Sent to enrollment chat to reach out documented in this encounter Plan of Treatment Upcoming Encounters Date Type Department Care Team (Late st Contact Info) Description 02/13/2024 2:00 PM EDT Office Visit Family Medicine [address] [place] [phone] Deborah Whitaker CRNP [address] [place] [address] [place] [address] 03/05/2024 9:15 AM EDT Cardiac Studies Cardiac Studies, [facility] [address] [facility] [place] [address] 04/23/2024 11:00 AM EDT Office Visit Cardiology, [facility] [address] [facility] [place] [address] Luh Garcia CRNP 132 [facility] [place] [address] 07/10/2024 2:40 PM EDT Office Visit Family Medicine [address] [place] [phone] Claude Mata MD [address] [place] [address] [place] [address] 07/15/2024 10:00 AM EDT Nurse Only Ancillary [address] [place] [address] Rubina, Nurse [facility] [address] [place] [address] [place] [address] 10/01/2024 3:20 PM EST Office Visit Nephrology [address] [place] [address] Cande Soni MD [address] [facility] [place] [address] 12/02/2024 2:20 PM EST Office Visit Dermatology [address] [place] [address] Dalila West PA-C [address] [place] [address] [place] [address] Health Maintenance Due Date Last Done Comments COVID-19 Vaccine (2022- season) 2023 01/07/2022, 12/31/2020, 12/03/2020 DTaP,Tdap,and Td Vaccines (2 - Td or Tdap) 10/14/2023 10/14/2013, 07/22/2008 Depression Screening 07/12/2024 07/12/2023 Albumin/Creatinine Ratio 10/05/2024 024, 02/14/2023, 04/07/2022, Additional history exists CKD PHOS USE SMARTSET 12292 10/05/202401/2024, 05/12/2022, 10/05/2020, Additional history exists CKD HGB USE SMARTSET 22430 11/30/202411/30, 12/01/2023, 10/05/2023, Additional history exists Pneumococcal [...] or by statute hierarchy) Care Teams Manager Mail Relationship Specialty Start Date End Date Claude Mata MD [address] [place] [address] [place] [address] PCP - General Family Medicine 11/13/23 documented as of this encounter
--- OUTSIDE RECORDS SUMMARY | 2024-02-27 23:51 | External Medical Summary | Summary of Care ---
Author Name Unknown Organization [facility] [address] [place] [address] Phone [phone] Care Team Providers Care Operator Helper Name Role Phone Claude Mata MD Primary Care Provide r Reason for Visit * Reason Onset Date Comments Update 01/30/2024 Encounter Details Date Type Department Care Team (Late st Contact Info) Description 01/30/2024 Telephone Pre Surgery Center, [facility] [address] [place] [address] Stiven Goodwin MD [facility] [address] Update Allergies Active Allergy Reactions Criticality Noted Date Comments Trazodone Other (Please comment) High 10/05/2023 Hallucinations documented as of this encounter (statuses as of 01/30/2024) Medications Medication Sig Dispensed Refills Start Date [...] mouth in the morning. 0 Active Saline [place] 0.65 % Nasal Solution ([place]) Administer into nostril 1 [place] as needed for Congestion. 60 mL 5 [...] chronic kidney disease (HCC),Coronary artery disease involving [place] coronary artery of [place] heart without angina pectoris Take 1 Tablet [...] HFA 17 MCG/ACT Inhalation Aerosol Solution (ipratropium)Indicat ions:[place] workers pneumoconiosis (HCC) Inhale 2 Puffs by [...] as of this encounter (statuses as of 01/30/2024) Active Problems Problem Noted Date Diagnosed Date SOLEDAD (generalized anxiety disorder) 12/01/2023 Coronary artery disease invo lving [place] coronary artery of [place] heart without angina pectoris 12/01/2023 Pulmonary hypertension, unspecified 10/07/2023 HFrEF (heart failure with reduced ejection fract ion) 09/19/2023 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 GENERAL OSTEOARTHROSIS INSOMNIA W SLEEP APNEA [place] workers pneumoconiosis Restrictive lung disease documented as of this encounter (statuses as of 01/30/2024) Resolved Problems Problem Noted Date Diagnosed Date [...] Rotator cuff rupture 05/22/2003 018 LOC PRIM [id number] 05/22/200310/02 Prepatellar bursitis 05/22/2003 015 Inflammation of sacroiliac joint 10/12/2001 10/16/2014 LOC PRIM OSTEOARTH-HAND 10/12/200110/02 Respiratory abnormality 07/04 Overview: ICD-10 update of inactive term Umbilical hernia 05/10/2018 Insomnia 10/16/2014 Overview: ICD-10 update of inactive term COPD, severity to be determined 07/07/2011 Allergic rhinitis 05/10/2018 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 NOS-ADMINISTRATIVE SERVICES MANAGER 07/04 Bilateral carpal tunnel syndrome 05/10/2018 CKD (chronic kidney disease), stage III 12/11/2018 Benign hypertension with CKD (chronic kidney disease) stage III 02/11/2021 Overview: Per CKD protocol documented as of this encounter (statuses as of 01/30/2024) Immunizations Name Administration Dates Next Due COVID-19 [...] encounter Miscellaneous Notes * Telephone Encounter - Natividad Quintana OSA - 01/30/2024 2:26 PM EDT Surgery has been cancelled. * Telephone Encounter - Genna Healy RN - 01/30/2024 2:07 PM EDT Call received from patient's daughter Susu reporting that she is with her father at [facility] and he is going to be admitted for possible pneumonia. She needs to cancel his surgery for this week. Support offered and I informed her I would notify Dr. Goodwin's office of the call. She verbalized appreciation. documented in this encounter Plan of Treatment Upcoming Encounters Date Type Department Care Team (Late st Contact Info) Description 03/05/2024 9:15 AM EDT Cardiac Studies Cardiac Studies, [facility] [address] [facility] [place] [address] 04/23/2024 11:00 AM EDT Office Visit Cardiology, [facility] [address] [facility] [place] [address] Luh Garcia CRNP 132 [facility] [place] [address] 07/10/2024 2:40 PM EDT Office Visit Family Medicine [address] [place] [phone] Claude Mata MD [address] [place] [address] [place] [address] 07/15/2024 10:00 AM EDT Nurse Only Ancillary [address] [place] [address] Rubina, Nurse Annual [address] [place] [address] 10/01/2024 3:20 PM EST Office Visit Nephrology [address] [place] [address] Cande Soni MD [address] [facility], [place] [address] 12/02/2024 2:20 PM EST Office Visit Dermatology [address] [place] [address] Dalila West PA-C [address] [place] [address] [place] [address] Health Maintenance Due Date Last Done Comments COVID-19 Vaccine (2022-24 season) 2023 01/07/2022, 12/31/2020, 12/03/2020 DTaP,Tdap,and Td Vaccines (2 - Td or Tdap) 10/14/2023 10/14/2013, 07/22/2008 Depression Screening 07/12/2024 07/12/2023 Albumin/Creatinine Ratio 10/05/2024 024, 02/14/2023, 04/07/2022, Additional history exists CKD PHOS USE SMARTSET 32059 10/05/202401/2024, 05/12/2022, 10/05/2020, Additional history exists CKD HGB USE SMARTSET 88690 11/30/202411/30, 12/01/2023, 10/05/2023, Additional history exists Pneumococcal [...] patient or by statute hierarchy) Care Teams Operator Helper Relationship Specialty Start Date End Date Claude Mata MD [address] [place] [address] [place] [address] PCP - General Family Medicine 11/13/23 documented as of this encounter
--- OUTSIDE RECORDS SUMMARY | 2024-02-27 23:51 | External Medical Summary | Summary of Care ---
Author Name Unknown Organization [facility] Address [address] [place] [address] Phone [phone] Care Team Providers Care Tree Care Foreman Name Role Phone Claude Mata MD Primary Care Provide r Encounter Details Date Type Department Care Team (Late st Contact Info) Description 02/08/2024 Population Health External Data Unspecified Department Allergies [...] mouth in the morning. 0 Active Saline [place] 0.65 % Nasal Solution ([place]) Administer into nostril 1 [place] as needed for Congestion. 60 mL 5 [...] chronic kidney disease (HCC),Coronary artery disease involving [place] coronary artery of iroquois heart without angina pectoris Take 1 Tablet [...] and stage 3b chronic kidney disease ([facility]) Take 1 Tablet by mouth [...] HFA 17 MCG/ACT Inhalation Aerosol Solution (ipratropium)Indicat ions:[place] workers pneumoconiosis ([facility]) Inhale 2 Puffs by mouth [...] (heart failure with reduced ejection fraction) ([facility]) Alternate 50 mg, with 100 [...] disorder) 12/01/2023 Coronary artery disease invo lving [place]ro[place] coronary artery of iroquois heart without angina pectoris 12/01/2023 Pulmonary hypertension, unspecified 10/07/2023 HFrEF (heart failure with reduced ejection fract ion) 09/19/2023 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 07/04 Bilateral carpal tunnel syndrome 05/10/2018 [...] 2:00 PM EDT Office Visit Family Medicine [address] [place] [phone] Deborah Whitaker [address] [place] [address] 03/05/2024 9:15 AM EDT Cardiac Studies Cardiac Studies, [facility] [address] [place] [address] 04/23/2024 11:00 AM EDT Office Visit Cardiology, [facility] [address] [place] [address] Luh Garcia CRNP [address] [place] [address] 07/10/2024 2:40 PM EDT Office Visit Family Medicine [address] [place] [phone] Claude Mata MD [address] [place] [address] [place] [address] 07/15/2024 10:00 AM EDT Nurse Only Ancillary [address] [place] [address] [place], Nurse [address] [place] [address] 10/01/2024 3:20 PM EST Office Visit Nephrology [address] [place] [address] Cande Soni MD 200 [facility], [place] [address] 12/02/2024 2:20 PM EST Office Visit Dermatology [address] [place] [address] Dalila West PA-C [address] [place] [address] [place] [address] Health Maintenance Due Date Last Done Comments COVID-19 Vaccine ( season) 2023 01/07/2022, 12/31/2020, 12/03/2020 DTaP,Tdap,and Td Vaccines (2 - Td or Tdap) 10/14/2023 10/14/2013, 07/22/2008 Depression Screening 07/12/2024 07/12/2023 Albumin/Creatinine Ratio 10/05/2024 024, 02/14/2023, 04/07/2022, Additional history exists CKD PHOS USE SMARTSET 48918 10/05/2024 01/0 01/2024, 05/12/2022, 10/05/2020, Additional history exists CKD HGB USE SMARTSET 51434 11/30/202411/30, 12/01/2023, 10/05/2023, Additional history exists Pneumococcal [...] patient or by statute hierarchy) Care Teams Tree Care Foreman Relationship Specialty Start Date End Date Claude Mata MD [address] [place] [address] [place] [phone] PCP - General Family Medicine 11/13/23 documented as of this encounter
--- OUTSIDE RECORDS SUMMARY | 2024-02-27 23:51 | External Medical Summary | Summary of Care ---
Author Name Unknown Organization [facility] Address [address] [place] [address] Phone [phone] Care Team Providers Care Business Communications Instructor Name Role Phone Claude Mata MD Primary Care Provide r Reason for Visit * Reason Onset Date Comments Home Health 02/08/2024 Encounter Details Date Type Department Care Team (Late st Contact Info) Description 02/08/2024 Telephone Family Medicine [address] [phone] Claude Mata MD [address] [place] [address] [place] [address] Home Health Allergies Active Allergy Reactions Criticality Noted Date [...] mouth in the morning. 0 Active Saline Severance 0.65 % Nasal Solution ([place]) Administer into nostril 1 Severance as needed for Congestion. 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 GENERAL OSTEOARTHROSIS INSOMNIA W SLEEP APNEA [place] workers pneumoconiosis Restrictive lung disease documented as [...] Rotator cuff rupture 05/22/2003 018 LOC PRIM [id number] 05/22/200310/02 Prepatellar bursitis 05/22/2003 015 Inflammation of sacroiliac joint 10/12/2001 10/16/2014 LOC PRIM OSTEOARTH-HAND 10/12/200110/02 Respiratory abnormality 07/04 Overview: ICD-10 update of inactive term Umbilical hernia 05/10/2018 Insomnia 10/16/2014 Overview: ICD-10 update of inactive term COPD, severity to be determined 07/07/2011 Allergic rhinitis 05/10/2018 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 NOS-REFERENCE ARCHIVIST 07/04 Bilateral carpal tunnel syndrome 05/10/2018 CKD [...] encounter Miscellaneous Notes * Telephone Encounter - Radha Arora, MARIAMA - 02/08/2024 3:27 PM EDT Resumption of Care Order Request: Yanique MORRIS, Calling from: Shawn Patient was Admitted to: [facility], for: SOB, CHF, RhinoVirus and COVID from 01/30 to 02/06 Patient declined OT services from PT saw patient today and completed eval and determined patient does not need service custodial will be seeing patient for mainly wound care - patient see's wound clinic T 97.1 BP 72 Resp 18 BP 122/58 O2 Sat 98% R/A - right lung diminished only Weight - 169.5 lbs Last Office Visit: 01/12/2024 Last TeleMed Visit: Visit date not found Has patient been scheduled or seen in the office for a follow up visit: Yes- on 02/13/24 Advised that orders will be signed by Claude Mata MD and to fax to the office for signature. documented in this encounter Plan of Treatment Upcoming Encounters Date Type Department Care Team (Late st Contact Info) Description 02/13/2024 2:00 PM EDT Office Visit [address] [phone] Deborah Whitaker CRNP [address] [place] [address] [place] [address] 03/05/2024 9:15 AM EDT Cardiac Studies Cardiac Studies, [facility] [address] [facility] [place] [address] 04/23/2024 11:00 AM EDT Office Visit Cardiology, [facility] [address] [facility] [place] [address] Luh Garcia CRNP 132 [facility] [place] [address] 07/10/2024 2:40 PM EDT Office Visit Family [address] [place] [phone] Claude Mata MD [address] [place] [address] [place] [address] 07/15/2024 10:00 AM EDT Nurse Only Ancillary [address] [place] [address] [place], Nurse Annual Wellness [address] [place] [address] [place] [address] 10/01/2024 3:20 PM EST Office Visit Nephrology [address] [place] [address] Cadne Soni MD [address] [facility] [address] 12/02/2024 2:20 PM EST Office Visit Dermatology [address] [place] [address] Dalila West PA-Karen [address] [place] [address] [place] [address] Health Maintenance Due Date Last Done Comments COVID-19 Vaccine (2022- season) 2023 01/07/2022, 12/31/2020, 12/03/2020 DTaP,Tdap,and Td Vaccines (2 - Td or Tdap) 10/14/2023 10/14/2013, 07/22/2008 Depression Screening 07/12/2024 07/12/2023 Albumin/Creatinine Ratio 10/05/2024 024, 02/14/2023, 04/07/2022, Additional history exists CKD PHOS USE SMARTSET 49832 10/05/202401/2024, 05/12/2022, 10/05/2020, Additional history exists CKD HGB USE SMARTSET 93472 11/30/202411/30, 12/01/2023, 10/05/2023, Additional history exists Pneumococcal [...] patient or by statute hierarchy) Care Teams Business Communications Instructor Relationship Specialty Start Date End Date Claude Mata MD [address] [place] [address] [place] [address] PCP - General Family Medicine 11/13/23 documented as of this encounter
--- OUTSIDE RECORDS SUMMARY | 2024-02-27 23:51 | External Medical Summary | Summary of Care ---
Author Name Unknown Organization [facility] [address] [place] [address] Phone [phone] Care Team Providers Care Sound Ranging Crewmember Name Role Phone Claude Mata MD Primary Care Provide r Reason for Visit * Reason Onset Date Comments Update 01/30/2024 Encounter Details Date Type Department Care Team (Late st Contact Info) Description 01/30/2024 Telephone Pre Surgery Center, [facility] [address] [place] [address] Stiven Goodwin MD [facility] [address] Update Allergies Active Allergy Reactions Criticality Noted [...] mouth in the morning. 0 Active Saline [place] 0.65 % Nasal Solution ([place]) Administer into nostril 1 Sullivan as needed for Congestion. 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 workers pneumoconiosis Restrictive lung disease documented as [...] Rotator cuff rupture 05/22/2003 018 LOC PRIM [id number] 05/22/200310/02 Prepatellar bursitis 05/22/2003 015 Inflammation of sacroiliac joint 10/12/2001 10/16/2014 LOC PRIM OSTEOARTH-HAND 10/12/200110/02 Respiratory abnormality 07/04 Overview: ICD-10 update of inactive term Umbilical hernia 05/10/2018 Insomnia 10/16/2014 Overview: ICD-10 update of inactive term COPD, severity to be determined 07/07/2011 Allergic rhinitis 05/10/2018 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 NOS-ARNP 07/04 Bilateral carpal tunnel syndrome 05/10/2018 CKD [...] encounter Miscellaneous Notes * Telephone Encounter - Kait Spann, SERENA - 01/30/2024 3:00 PM EDT noted * Telephone Encounter - Natividad Quintana OSA - 01/30/2024 2:26 PM EDT Surgery has been cancelled. * Telephone Encounter - Genna Healy RN - 01/30/2024 2:07 PM EDT Call received from patient's daughter Susu reporting that she is with her father at [facility] emergency[facility] and he is going to be [...] 9:15 AM EDT Cardiac Studies Cardiac Studies, [facility] [address] [facility] [place] [address] 04/23/2024 11:00 AM EDT Office Visit Cardiology, [facility] [address] [facility] [place] [address] Luh Garcia CRNP 132 [facility] [place] [address] 07/10/2024 2:40 PM EDT Office Visit Family Medicine [address] [place] [phone] Claude Mata MD [address] [place] [address] [place] [address] 07/15/2024 10:00 AM EDT Nurse Only Ancillary [address] [place] [address] Rubina, Nurse Annual Wellness [address] [place] [address] [place] [address] 10/01/2024 3:20 PM EST Office Visit Nephrology [address] [place] [address] [facility] [address] 12/02/2024 2:20 PM EST Office Visit Dermatology [address] [place] [address] Dalila West PA-C [address] [place] [address] [place] [address] Health Maintenance Due Date Last Done Comments COVID-19 Vaccine ( - 2022-24 season) 2023 01/07/2022, 12/31/2020, 12/03/2020 DTaP,Tdap,and Td Vaccines (2 - Td or Tdap) 10/14/2023 10/14/2013, 07/22/2008 Depression Screening 07/12/2024 07/12/2023 Albumin/Creatinine Ratio 10/05/2024 024, 02/14/2023, 04/07/2022, Additional history exists CKD PHOS USE SMARTSET 34382 10/05/202401/2024, 05/12/2022, 10/05/2020, Additional history exists CKD HGB USE SMARTSET 44942 11/30/202411/30, 12/01/2023, 10/05/2023, Additional history exists Pneumococcal [...] patient or by statute hierarchy) Care Teams Sound Ranging Crewmember Relationship Specialty Start Date End Date Claude Mata MD [address] [place] [address] [place] [phone] PCP - General Family Medicine 11/13/23 documented as of this encounter
[2024-02-28 06:24] LABS: BUN Creatinine Ratio 27.8 (10-20); Calcium 9.4 mg/dl (8.6-10.3); Creatinine Clr Calc Pharmacy 25.2 ml/min; Est GFR (African American) 28.3 ml/min; Est GFR (Non-African American) 24.4 ml/min; Magnesium 2.3 mg/dl (1.7-2.4); Potassium 4.2 mmol/L (3.5-5.1)
[2024-02-28 06:34] LABS: Hematocrit (blood only) 34.1 % (42.0-52.0); Mean Corpuscular Hemoglobin 27.3 pg (25.0-34.0); Mean Corpuscular Hgb Conc 32.3 g/dL (32.0-36.0); Mean Corpuscular Volume 84.6 fL (80.0-100.0); Mean Platelet Volume 9.7 fL (9.4-12.4); Platelet Count 379 K/uL (130-400); RDW Coefficient of Variation 15.2 % (11.5-14.5); Red Blood Count 4.03 M/uL (4.70-6.10)
[2024-02-28 06:39] LABS: Troponin I High Sensitivity 154.5 pg/ml (0-20)
--- NOTE | 2024-02-28 08:00 | Electrocardiogram Report ---
Test Reason : Blood Pressure : / mmHG Vent. 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 Premature atrial complexes no longer present Confirmed by Cecil May ([id number]) on 02/28/2024 7:59:43 AM Referred By: REFERRED SELF Confirmed By:Cecil May
[2024-02-28] MEDS: FLUTICASONE PROPIONATE NA SPR 16 GM BTL SCH (08:14)
[2024-02-28] MEDS: VANCOMYCIN HCL 1,250 MG in SODIUM CHLORIDE 0.9% 250 ML IV ONE (08:14)
[2024-02-28] MEDS: ISOSORBIDE MONO EXTENDED REL 60 MG TABCR PO SCH (08:15)
[2024-02-28] MEDS: ASPIRIN 81 MG ECTAB PO SCH (08:15)
[2024-02-28] MEDS: CLOPIDOGREL BISULFATE 75 MG TAB PO SCH (08:15)
[2024-02-28] MEDS: FAMOTIDINE 20 MG TAB PO SCH (08:15)
[2024-02-28] MEDS: MOMETASONE FUROATE 0.1% OINT 15 GM TUBE EXT SCH (08:15)
[2024-02-28] MEDS: MULTIVITAMIN TAB PO SCH (08:15)
[2024-02-28] MEDS: CITALOPRAM 20 MG TAB PO SCH (08:15)
[2024-02-28] MEDS: PANTOprazole 40 MG TAB PO SCH (08:15)
[2024-02-28] MEDS: allopurinoL 100 MG TAB PO SCH (08:15)
--- NOTE | 2024-02-28 10:59 | Pulmonary Consultation ---
Date of Consultation February 28, 2024 Assessment & Plan (1) Acute on chronic HFrEF (heart failure with reduced ejection fraction): Patient being managed by cardiology and diuresed with improvement of symptoms. Bilateral effusions will respond to diuresis. No role for thoracentesis at this time as symptoms are almost back to baseline. Recommend palliative care consult in light of patient's advanced age and severe systolic heart failure. (2) Severe pulmonary hypertension: Secondary to underlying systolic heart failure. No specific interventions aside for diuresis and supplemental oxygen. (3) Hypoxia: Patient back to baseline oxygen requirements at this time. Maintain sats of greater than 89%. Of note, respiratory viral panel was positive for rhinovirus. This may be exacerbating the patient's symptoms somewhat. 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 No role for antibiotics or systemic corticosteroids at this time. Rocephin discontinued. Plan No further recommendations at this time. Again strongly recommend palliative care consultation to discuss goals of care. History of Present Illness Reason for Consultation: Hypoxia and effusions Attending Physician: Richie García MD History of Present Illness 88-year-old male with a history of ILD, severe systolic cardiomyopathy, chronic oxygen use and secondary pulmonary retention who presented to the hospital due to severe shortness of breath and orthopnea. Symptoms are improving today with the use of diuretics. Echo ordered by primary team. Pulmonary consulted to evaluate for potential pulmonary interventions. CT imaging reviewed which revealed innumerable pulmonary nodules which appear largely stable compared to prior. Bilateral effusions have slightly increased compared to prior exam. Patient sitting at the side of the bed and denies any shortness of breath at rest, but continues to have shortness of breath with any exertion. Denies any significant cough or fevers. Currently being diuresed with 1 mg twice daily of the Bumex. Patient was seen by me on inpatient consult service 09/10/2023 and had COVID-19 pneumonia at that time and was treated for viral bronchitis with dexamethasone. Allergies Allergy/AdvReac Type Severity Reaction Status Date / Time trazodone AdvReac Hallucinati Verified 02/27/24 15:24 ng Home Medications Medication Instructions Recorded Confirmed Type aspirin 81 mg tablet,delayed 81 mg PO DAILY 05/21/19 02/27/24 History release tamsulosin 0.4 mg capsule 0.4 mg PO AMHS 05/21/19 02/27/24 History multivitamin-ferrous 1 tab PO DAILY 05/22/19 02/27/24 History fumarate-folic acid 18 mg-400 mcg tablet (Centrum Complete) famotidine 20 mg tablet 20 mg PO QAM 03/06/23 02/27/24 History guaifenesin 600 mg tablet, 600 mg PO Q12H PRN Cough 03/06/23 02/27/24 History extended release 12 hr ipratropium bromide 17 2 puff inhalation QID 03/06/23 02/27/24 History mcg/actuation HFA aerosol inhaler (Atrovent HFA) sodium chloride 0.65 % nasal spray 1 spray intranasal UD PRN 03/06/23 02/27/24 History aerosol (Saline Nasal) Congestion fluticasone propionate 50 2 sprays intranasal QAM 09/09/23 02/27/24 History mcg/actuation nasal spray,suspension rosuvastatin 10 mg tablet 10 mg PO HS 09/09/23 02/27/24 History clopidogrel 75 mg tablet 75 mg PO QAM #30 tabs 09/12/23 02/27/24 Rx isosorbide mononitrate 60 mg 60 mg PO QAM #30 tabs 09/12/23 02/27/24 Rx tablet,extended release 24 hr metoprolol succinate 25 mg 25 mg PO QAM #30 tabs 09/12/23 02/27/24 Rx tablet,extended release 24 hr nitroglycerin 0.4 mg sublingual 0.4 mg sublingual Q5M PRN chest 09/12/23 02/27/24 Rx tablet (Nitrostat) pain #30 tabs allopurinol 100 mg tablet 100 mg PO QAM 01/30/24 02/27/24 History torsemide 20 mg tablet 80 mg (4 x 20 mg) PO QAM 30 days 02/07/24 02/27/24 Rx #120 tabs citalopram 20 mg tablet 20 mg PO QAM 02/27/24 02/27/24 History hydralazine 10 mg tablet 10 mg PO AMHS 02/27/24 02/27/24 History mometasone 0.1 % topical ointment 1 applic topical DAILY 02/27/24 02/27/24 History pantoprazole 40 mg tablet,delayed 40 mg PO QAM 02/27/24 02/27/24 History release Patient History Medical History Acute on chronic renal failure Elevated troponin I level Chest pain Pulmonary edema Prostate cancer (11/03/14) "Rising PSA to 7.46 Status post ultrasound-guided biopsies revealing adenocarcinoma Gabriela 4+3, biopsy stage T2c Initiation of hormone suppression prior to prostate seed implant, short course Status post prostate seed implant 02/03/2015 with cesium 131 received 8500 cGy 50 seeds placed Status post completion of IMRT/IGRT 04/28/2015 received 4500 cGy " On 05/26/15 14:44 Aixayomaira Goldberg wrote "Rising PSA to 7.46 Status post ultrasound-guided biopsies revealing adenocarcinoma Gabriela 4+3, biopsy stage T2c Initiation of hormone suppression prior to prostate seed implant Status post prostate seed implant 02/03/2015 with cesium 131 received 8500 cGy 50 seeds placed Status post completion of IMRT/IGRT 04/28/2015 received 4500 cGy " On 05/01/15 12:43 Sandra Marquez wrote "Rising PSA to 7.46 Status post ultrasound-guided biopsies revealing adenocarcinoma Gabriela 4+3, biopsy stage T2c Initiation of hormone suppression Status post prostate seed implant 02/03/2015 with cesium 131 received 8500 cGy 50 seeds placed Status post completion of IMRT/IGRT 04/28/2015 received 4500 cGy " On 03/17/15 15:55 Sandra Marquez wrote "Rising PSA to 7.46 Status post ultrasound-guided biopsies revealing adenocarcinoma [place] 4+3, biopsy stage T2c Initiation of hormone suppression Status post prostate seed implant 02/03/2015 with cesium 131 received 8500 cGy 50 seeds placed Now for completion of IMRT/IGRT" Surgical History History of appendectomy H/O shoulder surgery Family History Other Heart disease Social History Smoking Status: Never smoker Tobacco Type: Cigarettes Second Hand Exposure: No; Do You Dip or Chew Tobacco: No; Hx Alcohol Use: No Hx Substance Use: No Preferred Language: Monegasque Communication Ability: Effective Demolitionist Required: No Beliefs That Will Affect Care: None marital status: / Current Living Situation: Alone Feels Safe at Home: Yes Safety Concerns: Feels Safe At This Time Assistive Devices: Cane, Denture - Upper, Denture - Lower and Glasses Review of Systems Review of Systems: All systems reviewed & are unremarkable except as noted in HPI & below Physical Exam Constitutional: not ill appearing Neck: normal visual inspection and trachea midline Respiratory: no respiratory distress, no labored breathing, no cough and not tachypneic Auscultation: + diminished lung sounds; no crackles and no wheezes Cardiovascular: Rate/Rhythm: regular rate and regular rhythm Heart Sounds: normal S1 and normal S2; no murmur Vessels: + JVD Extremities: + edema Gastrointestinal (Abdomen): Percussion/Palpation: abdomen nontender Skin: no rashes, warm and dry Psychiatric: A+Ox3, euthymic affect Results & Data Results & Data Vital Signs (Past 12 Hours) Vital Signs Temp Pulse Pulse Resp BP Pulse Ox O2 Del Method 02/28/24 10:07 Nasal Cannula 02/28/24 07:54 36.6 C 86 16 123/71 95 Nasal Cannula 02/28/24 07:22 80 02/28/24 07:22 86 16 95 Nasal Cannula 02/28/24 02:38 36.5 C 81 16 130/81 95 Nasal Cannula 02/28/24 00:51 116/69 O2 Flow Rate 02/28/24 10:07 2 02/28/24 07:54 2 02/28/24 07:22 02/28/24 07:22 2 02/28/24 02:38 2.0 02/28/24 00:51 PG Care Time/CCT Total # of Minutes Spent Total Time Spent with Patient: Total time spent is greater than 50% in coordination of care (as documented) at patient's floor/unit and/or counseling patient: Coding Level of Care Code 09091 INT INP/OBS CARE 3/75MIN Diagnoses Acute on chronic HFrEF (heart failure with reduced ejection fraction) I50.23 Severe pulmonary hypertension I27.20 Hypoxia R09.02 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
--- OUTSIDE RECORDS SUMMARY | 2024-02-28 11:24 | External Medical Summary | Summary of Care ---
Author Name Unknown Organization [facility] Address [address] [place] [address] Phone [phone] Care Team Providers Care Internet Developer Name Role Phone Claude Mata MD Primary Care Provide r Reason for Visit * Reason Onset Date Comments Test Results 02/23/2024 Encounter Details Date Type Department Care Team (Late st Contact Info) Description 02/23/2024 Telephone Family Medicine [address] [phone] Claude Mata MD [address] [place] [address] [place] [id number] Test Results Allergies Active Allergy Reactions Criticality [...] by mouth in the morning. Active Saline [place] 0.65 % Nasal Solution (Burke) Administer into nostril 1 [place] as needed for Congestion. 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 38.7 g 1 10/25/2023 Active guaiFENesin ER 600 MG Oral Tablet Extended Release 12 Hour (Mucinex) Take 1 Tablet by mouth every 12 hours as needed for Cough or Congestion. Active Torsemide 100 MG Oral Tablet (Demadex)Indication [...] 02/07/2024 Active Mometasone Furoate 0.1 % External OintmentIndications [...] heart failure managing provider. 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 Restrictive lung disease documented as [...] Rotator cuff rupture 05/22/2003 018 LOC PRIM [id number] 05/22/200310/02 Prepatellar bursitis 05/22/2003 015 Inflammation of sacroiliac joint 10/12/2001 10/16/2014 LOC PRIM OSTEOARTH-HAND 10/12/200110/02 Respiratory abnormality 07/04 Overview: ICD-10 update of inactive term Umbilical hernia 05/10/2018 Insomnia 10/16/2014 Overview: ICD-10 update of inactive term COPD, severity to be determined 07/07/2011 Allergic rhinitis 05/10/2018 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 NOS-INFORMATION SYSTEMS ARCHITECT 07/04 Bilateral carpal tunnel syndrome 05/10/2018 [...] Telephone Encounter - Claude Mata MD - 02/27/2024 10:33 AM EDT Pt's recent labs showed worsening Cr along with decreasing hgb - due to acute possible osteo with current lab finding pt was recommended to go to the ER * Telephone Encounter - Siddhartha Dooley LPN - 02/23/2024 3:02 PM EDT Called Harsha back at [facility] and she is not aware of what wound care site Ned goes to. I called Ned and he states [facility] [place] is his wound care site. I called [facility] for wound care and they stated Ned was started on keflex on 01/21 by [facility] wound care team and discontinued on [...] EDT HH Concerns Harsha RN, [facility] [place]/Concerns of: osteomyelitis Symptoms: wound ulcer of right foot. Vitals: T 97.2 P 74 RR 18 BP 128/64 SP O2 94% room air Lung sounds clear Weight 173.8 Blood sugar n/a Narrative: Harsha calling from [facility] Patient had a MRI of the right foot. 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 No pain. Called the office and spoke to [place]. Will make the doctor aware. Call back the patient with any advice or orders at [phone] Please fax new orders to [phone] documented in this encounter Plan of Treatment Upcoming Encounters Date Type Department Care Team (Late st Contact Info) Description 02/27/2024 2:30 PM EDT Telemedicine [facility] at [facility] [address] [place] [phone] Sylvie Crawford CRNP [address] [facility] [place] [address] Mara Crystal, Community Health Supervisor [employer] [address] [place] [address] [place] [address] 02/28/2024 9:30 AM EDT Scheduled Telephone [facility] [place], [facility] [address] [place] [address] Coordinator, [facility] [place] [address] [place] [address] 03/05/2024 9:15 AM EDT Cardiac Studies Cardiac Studies, [facility] [address] [facility] [place] [address] 03/21/2024 5:30 PM EDT Home Visit [facility], [facility] [address] [facility] [place] [address] Ingris Madden, ARTURO [address] [facility] [place] [address] 04/23/2024 11:00 AM EDT Office Visit Cardiology, [facility] [address] [facility] [place] [address] Lhu Garica CRNP [facility] [place] [address] 07/10/2024 2:40 PM EDT Office Visit Family Medicine [address] [place] [phone] Claude Mata MD [address] [place] [address] [place] [address] 07/15/2024 10:00 AM EDT Nurse Only Ancillary [address] [place] [address] [place], Nurse [address] [place] [address] 10/01/2024 3:20 PM EST Office Visit Nephrology [address] [place] [address] Cande Soni [facility] [address] [facility] [address] 12/02/2024 2:20 PM EST Office Visit Dermatology [address] [place] [address] Dalila West PA-C [address] [place] [address] [place] [address] Health Maintenance Due Date Last Done Comments COVID-19 Vaccine ( season) 2023 01/07/2022, 12/31/2020, 12/03/2020 DTaP,Tdap,and Td Vaccines (2 - Td or Tdap) 10/14/2023 10/14/2013, 07/22/2008 Depression Screening 07/12/2024 07/12/2023 Albumin/Creatinine Ratio 10/05/2024 024, 02/14/2023, 04/07/2022, Additional history exists CKD PHOS USE SMARTSET 11035 10/05/202401/2024, 05/12/2022, 10/05/2020, Additional history exists CKD HGB USE SMARTSET 91724 02/22/202502/22, 02/23/2024, 02/13/2024, Additional history exists Pneumococcal [...] patient or by statute hierarchy) Care Teams Internet Developer Relationship Specialty Start Date End Date Claude Mata MD [address] [place] [address] [place] [phone] PCP - General Family Medicine 11/13/23 documented as of this encounter
--- OUTSIDE RECORDS SUMMARY | 2024-02-28 11:25 | External Medical Summary ---
Author Name Unknown Address Unknown Organization K01:[facility] [place] [facility] [address] [facility] [address] [place] [address] Laboratory Report Ordering Provider Test Date Status PETRA MOCTEZUMA 02/27/2024 08:12:09 Final Please collect on Monday a. m. 02/26 Observation Date Value Abnormality Reference (Units ) Status BUN 02/27/2024 08:12:09 60 Above high normal 6-20 (mg/dL) Final Creatinine 02/27/2024 08:12:09 2.3 Above high normal 0.6-1.2 (mg/dL) Final Glomerular filtration rate/1.73 sq M.predicted [Volume Rate/Area] in Serum, Plasma or Blood by Creatinine-based formula (CKD-EPI) 02/27/2024 08:12:09 27 Below low normal >=60 (mL/min) Final eGFR is calculated based on the CKD-EPI 2020 equation Sodium 02/27/2024 08:12:09 138 135-146 (m mol/L) Final Potassium 02/27/2024 08:12:09 3.9 3.5-5.1 (m mol/L) Final Cl 02/27/2024 08:12:09 92 Below low normal 98- 107 (mmol/L) Final CO2 02/27/2024 08:12:09 31 22-32 (mmo l/L) Final Anion gap 02/27/2024 08:12:09 15 7-15 (mmol /L) Final Glucose 02/27/2024 08:12:09 139 Above high normal 70 -120 (mg/dL) Final Calcium 02/27/2024 08:12:09 9.8 8.4-10.2 ( mg/dL) Final Performing Location [facility] [place] [address] [place] [address]
--- NOTE | 2024-02-28 12:13 | Pharmacy Report ---
Pharmacy PK ABX Note - Date of Service February 28, 2024 - Assessment and Plan Assessment * 88 year old M receiving VANCOMYCIN + CEFTRIAXONE for treatment of possible osteomyelitis of R foot. * Pertinent microbiologic data includes: BLCXs pending; R Foot cx pending * Day # 2 of antimicrobial therapy. Plan Vancomycin * Loading dose: 2000 mg IV x 1 given @ ~2000 02/26 * Additional dose: 1250 mg IV x 1 given this AM in response to random level of 17.3 indicating need for redosing * Maint dose: 750mg IV Q 24 hrs to begin tomorrow AM. This regimen is predicted to achieve target AUC/DEMOND of 400-600 mg/L.hr * Trough level ordered for: 03/01/24 Pharmacy will continue to follow and will adjust dose/frequency as necessary. Thank you. Pharmacy has transitioned to AUC monitoring for vancomycin. AUC/DEMOND is the preferred PK/PD target and is associated with decreased risk of nephrotoxicity compared to traditional trough targets.
--- NOTE | 2024-02-28 14:08 | Cardiology Progress Note ---
Date of Service February 28, 2024 Assessment & Plan (1) Acute on chronic HFrEF (heart failure with reduced ejection fraction): (2) Restrictive lung disease: (3) Severe pulmonary hypertension: (4) Stage 3b chronic kidney disease (CKD): (5) Stage III pressure ulcer: Plan Complex 88-year-old male with mixed underlying severe LV dysfunction with chronic systolic heart failure, restrictive lung disease with chronic hypoxia and severe pulmonary hypertension. Patient presents now with increased breathlessness. Mild congestive heart failure present but no significant jugular venous distention. Has responded predominately to increased oxygen supplementation Suspect volume overload not primary culprit Agree with treating underlying infectious process. Blood cultures ordered Will continue IV Bumex as ordered following renal function Will add topical nitrates for further hypertension control Resume prehospital medications Patient will require O2 supplement indefinitely given pulmonary hypertension, underlying pulmonary pathology Cardiology will continue to follow 02/28/2024 Slightly improved clinically Echocardiogram unchanged Will plan on continue diuresis with increased dose today expect further renal decline however Will discontinue topical nitrates Continue oxygen would not attempt to wean below 2 L will require chronic supplementation Overall prognosis guarded Admission and Anticipated Discharge Date Admission Date: February 27, 2024 Subjective Patient seen and examined, chart, medications, telemetry reviewed Dyspneic last night stable today though requiring 2 L nasal cannula. No large volume diuresis but feels less bloated and edematous. Renal function deteriorated slightly No fevers or chills. Echocardiogram as in past studies demonstrate severe LV dysfunction EF 5% with expanded apical infarct Physical Exam Constitutional: no acute distress Eyes: PERRL, conjunctivae normal, anicteric sclerae ENMT: external ear and nose normal, oropharynx normal Neck: trachea midline, no thyromegaly Respiratory: Auscultation: + diminished lung sounds (Right base) and + rales Cardiovascular: Rate/Rhythm: regular rate and regular rhythm Gastrointestinal (Abdomen): Inspection/Auscultation: + abdomen distended Skin: + ulcer (Nonhealing right foot) and + wo und Neurologic: PERRL, EOMI, accommodation nl, no face palsy, no dysarthria Results & Data Vital Signs (Past 12 Hours) Vital Signs Temp Pulse Pulse Resp BP Pulse Ox O2 Del Method 02/28/24 11:16 36.7 C 75 18 118/64 96 Nasal Cannula 02/28/24 10:58 81 16 96 Nasal Cannula 02/28/24 10:07 Nasal Cannula 02/28/24 07:54 36.6 C 86 16 123/71 95 Nasal Cannula 02/28/24 07:22 80 02/28/24 07:22 86 16 95 Nasal Cannula 02/28/24 02:38 36.5 C 81 16 130/81 95 Nasal Cannula O2 Flow Rate 02/28/24 11:16 2 02/28/24 10:58 2 02/28/24 10:07 2 02/28/24 07:54 2 02/28/24 07:22 02/28/24 07:22 2 02/28/24 02:38 2.0 (5) Stage III pressure ulcer Pressure injury location: dorsum of foot Laterality: right Qualified Code(s): L89.893 - Pressure ulcer of other site, stage 3
--- NOTE | 2024-02-28 15:18 | Hospitalist Progress Note ---
Date of Service February 28, 2024 Assessment & Plan (1) Acute on chronic HFrEF (heart failure with reduced ejection fraction): (2) Dyspnea on exertion: (3) Severe pulmonary hypertension: (4) Restrictive lung disease: (5) HTN (hypertension): (6) Hypoxia: (7) Nocturnal hypoxemia: (8) Stage 3b chronic kidney disease (CKD): Plan: Acute on chronic systolic CHF exacerbation Acute on chronic hypoxemia Chronic oxygen dependency--on 2 L at bedtime Fluid overload due to above Severe pulmonary hypertension --Chest CT:Redemonstration of innumerable pulmonary nodules which are nonspecific but may represent sarcoidosis, pneumonitis, or other chronic infe ctious/inflammatory process. No superimposed pneumonia is definitely seen. Bilateral pleural effusions have slightly increased from prior exam. --ECHO: Left ventricle is mildly dilated. Mild concentric LVH. 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 Left ventricle systolic function is severely reduced. EF 20 -25 %. Mild mitral, tricuspid regurgitation. Right ventricular systolic pressure is severely elevated> 60 mmHg. (ECHO unchanged from prior) --Continue IV Bumex 1 mg 3 times daily Appreciate cardiology input Monitor I's and O's, daily weight, volume status Poor prognosis Right foot Wound Osteomyelitis - MRI R foot w/o contrast obtained as outpt reviewed - showing early osteo at the 5th metatarsal head -Wound cultures pending Empirically on Rocephin, Dapto Consulted podiatry for possible debridement Continue wound care Will consider ID evaluation when appropriate Recent Rhino Infection Remains positive on bio fire since last discharge Monitor HLD Hold statin while on Dapto TAYA on CKD IV Baseline Cr ~2 Expected from IV diuretics Monitor renal function Avoid nephrotoxic agents as able Mood Disorder Continue home medication DVT Px: Heparin SQ CODE STATUS: Full code Admission and Anticipated Discharge Date Admission Date: February 27, 2024 Subjective Patient is seen and examined at bedside Dyspnea, leg swelling slowly improving Requiring 2 L supplemental oxygen to maintain saturation Denies any foot pain currently Also denies any chest pain, dizziness, nausea, vomiting, abdominal pain Review of Systems Review of Systems: All systems reviewed & are unremarkable except as noted in Subjective Physical Exam Physical Exam: Physical Exam: Vitals signs as noted above General Appearance: Thin, frail, elderly, no apparent distress Head: normocephalic, Atraumatic Eyes: normal inspection, EOMI Neck: supple, Trachea midline Respiratory/Chest: Decreased breath sounds, R basal rales, No accessory muscle use Cardiovascular: S1, S2, + murmur Abdomen/GI:Soft, Non tender, Bowel sounds present,+ abdominal hernia Extremities/Musculoskeletal:normal inspection, +edema, R later foot ulcer Neurologic/Psych:AAOX3, grossly no focal neurological deficits Skin: normal color, warm, erythematous rash multiple areas Results & Data Results & Data Vital Signs (Past 12 Hours) Vital Signs Temp Pulse Pulse Resp BP Pulse Ox O2 Del Method 02/28/24 14:11 78 18 97 Nasal Cannula 02/28/24 11:16 36.7 C 75 18 118/64 96 Nasal Cannula 02/28/24 10:58 81 16 96 Nasal Cannula 02/28/24 10:07 Nasal Cannula 02/28/24 07:54 36.6 C 86 16 123/71 95 Nasal Cannula 02/28/24 07:22 80 02/28/24 07:22 86 16 95 Nasal Cannula O2 Flow Rate 02/28/24 14:11 2 02/28/24 11:16 2 02/28/24 10:58 2 02/28/24 10:07 2 02/28/24 07:54 2 02/28/24 07:22 02/28/24 07:22 2 Laboratory Results Short CBC 02/28/24 Range/Units 05:44 WBC 11.00 H (4.8-10.8) K/ul Hgb 11.0 L (14.0-18.0) g/dl Hct 34.1 L (42.0-52.0) % Plt Count 379 (130-400) K/uL BMP 02/28/24 05:44 Sodium 137 Potassium 4.2 Chloride 94 L Carbon Dioxide 33 H BUN 64 H Creatinine 2.30 H Glucose 129 H Calcium 9.4
[2024-02-28] MEDS: BUMETANIDE 1 MG in SYRINGE 0 ML IV SCH (15:38)
[2024-02-28] MEDS: cefTRIAXone SODIUM 2,000 MG/50 ML BAG IV SCH (15:39)
[2024-02-28] MEDS ORDERED: cefTRIAXone SODIUM 2,000 MG/50 ML BAG IV SCH (16:00)
[2024-02-28] MEDS: HEPARIN SOD 5,000 UNIT/0.5 ML VIAL SQ SCH (20:30)
[2024-02-29] MEDS: LORATADINE 10 MG TAB PO ONE (00:42)
[2024-02-29] MEDS: MELATONIN 3 MG TAB PO PRN (00:42)
[2024-02-29 06:29] LABS: Calcium 9.1 mg/dl (8.6-10.3); Magnesium 2.4 mg/dl (1.7-2.4)
[2024-02-29 06:30] LABS: Hematocrit (blood only) 29.9 % (42.0-52.0); Hemoglobin 9.7 g/dl (14.0-18.0); Mean Corpuscular Hemoglobin 27.5 pg (25.0-34.0); Mean Corpuscular Hgb Conc 32.4 g/dL (32.0-36.0); Mean Corpuscular Volume 84.7 fL (80.0-100.0); Mean Platelet Volume 9.8 fL (9.4-12.4); Platelet Count 321 K/uL (130-400); RDW Coefficient of Variation 15.3 % (11.5-14.5); RDW Standard Deviation 46.5 fL (36.4-46.3); Red Blood Count 3.53 M/uL (4.70-6.10); White Blood Count 8.15 K/ul (4.8-10.8)
--- NOTE | 2024-02-29 07:56 | XRay Report ---
XR chest 1V portable HISTORY: Pleural effusion COMPARISON: Chest 02/27/2024. FINDINGS: No pneumothorax. Small to moderate right and small left pleural effusions persist. Bibasila r densities again noted. Diffuse reticulonodular interstitial thickening remains unchanged. The heart remains mildly enlarged. There are calcifications within the aortic knob. IMPRESSION: 1. No change in the diffuse reticulonodular interstitial thickening. 2. Small to moderate right and small left pleural effusions persist with patchy bibasilar densities. ACT 112: Negative or not required by law. Electronically signed by: Mike Velasquez M.D. 02/29/2024 7:55 AM
[2024-02-29] MEDS ORDERED: VANCOMYCIN HCL 750 MG in SODIUM CHLORIDE 0.9% 250 ML IV SCH (08:00)
[2024-02-29] MEDS: DAPTOmycin 325 MG in SYRINGE 0 ML IV SCH (08:28)
[2024-02-29 09:41] LABS: BUN Creatinine Ratio 28.4 (10-20); Est GFR (African American) 26.5 ml/min; Est GFR (Non-African American) 22.9 ml/min
--- NOTE | 2024-02-29 10:00 | Podiatry Consultation ---
Date of Consultation February 29, 2024 Assessment & Plan (1) Acute osteomyelitis of right foot: Present on Admission?: Yes (2) Ulcer of right foot with bone involvement without evidence of necrosis: Present on Admission?: Yes Plan Patient examined and evaluated bedside. Discussed at length the etiology and treatment of his non healing right foot ulcer with suspected underlying osteomyelitis of the 5th metatarsal head bone. Applied a new bandage. Reviewed MRI consistent with osteomyelitis of 5th metatarsal head. Discussed right foot incision and drainage to bone with 5th metatarsal head resection and with deep soft tissue and bone cultures. Discussed we will attempt to close the wound primarily. NPO at midnight. Plan for surgery tomorrow (03/01/24) at 7:15am. History of Present Illness Reason for Consultation: right foot ulcer with suspected osteomyelitis 5th metatarsal head Requesting Physician: Richie García MD Attending Physician: Richie García MD History of Present Illness Patient seen at bedside with his son present. Patient reports he has been under the care at [facility] for his right foot ulcer. Reports a home health nurse has been doing his bandage changes. Patient reports a few days ago, the home health nurse was concerned with his breathing difficulty, right lower extremity swelling, and worsening of the right foot wound and sent him to [facility] for admission. Patient reports he had an MRI done about a week ago with results indicating osteomyelitis of his right 5th metatarsal head. He does have recent shortness of breath and malaise, but has felt better since being admitted. Now, he denies any new concerns overall. Allergies Allergy/AdvReac Type Severity Reaction Status Date / Time trazodone AdvReac Hallucinati Verified 02/27/24 15:24 Home Medications Medication Instructions Recorded Confirmed Type aspirin 81 mg tablet,delayed 81 mg PO DAILY 05/21/19 02/27/24 History release tamsulosin 0.4 mg capsule 0.4 mg PO AMHS 05/21/19 02/27/24 History multivitamin-ferrous 1 tab PO DAILY 05/22/19 02/27/24 History fumarate-folic acid 18 mg-400 mcg tablet (Centrum Complete) famotidine 20 mg tablet 20 mg PO QAM 03/06/23 02/27/24 History guaifenesin 600 mg tablet, 600 mg PO Q12H PRN Cough 03/06/23 02/27/24 History extended release 12 hr ipratropium bromide 17 2 puff inhalation QID 03/06/23 02/27/24 History mcg/actuation HFA aerosol inhaler (Atrovent HFA) sodium chloride 0.65 % nasal spray 1 spray intranasal UD PRN 03/06/23 02/27/24 History aerosol (Saline Nasal) Congestion fluticasone propionate 50 2 sprays intranasal QAM 09/09/23 02/27/24 History mcg/actuation nasal spray,suspension rosuvastatin 10 mg tablet 10 mg PO HS 09/09/23 02/27/24 History clopidogrel 75 mg tablet 75 mg PO QAM #30 tabs 09/12/23 02/27/24 Rx isosorbide mononitrate 60 mg 60 mg PO QAM #30 tabs 09/12/23 02/27/24 Rx tablet,extended release 24 hr metoprolol succinate 25 mg 25 mg PO QAM #30 tabs 09/12/23 02/27/24 Rx tablet,extended release 24 hr nitroglycerin 0.4 mg sublingual 0.4 mg sublingual Q5M PRN chest 09/12/23 02/27/24 Rx tablet (Nitrostat) pain #30 tabs allopurinol 100 mg tablet 100 mg PO QAM 01/30/24 02/27/24 History torsemide 20 mg tablet 80 mg (4 x 20 mg) PO QAM 30 days 02/07/24 02/27/24 Rx #120 tabs citalopram 20 mg tablet 20 mg PO QAM 02/27/24 02/27/24 History hydralazine 10 mg tablet 10 mg PO AMHS 02/27/24 02/27/24 History mometasone 0.1 % topical ointment 1 applic topical DAILY 02/27/24 02/27/24 History pantoprazole 40 mg tablet,delayed 40 mg PO QAM 02/27/24 02/27/24 History release Patient History Medical History Acute on chronic renal failure Elevated troponin I level Chest pain Pulmonary edema Prostate cancer (11/03/14) "Rising PSA to 7.46 Status post ultrasound-guided biopsies revealing adenocarcinoma Gabriela 4+3, biopsy stage T2c Initiation of hormone suppression prior to prostate seed implant, short course Status post prostate seed implant 02/03/2015 with cesium 131 received 8500 cGy 50 seeds placed Status post completion of IMRT/IGRT 04/28/2015 received 4500 cGy " On 05/26/15 14:44 Shira Goldberg wrote "Rising PSA to 7.46 Status post ultrasound-guided biopsies revealing adenocarcinoma Gabriela 4+3, biopsy stage T2c Initiation of hormone suppression prior to prostate seed implant Status post prostate seed implant 02/03/2015 with cesium 131 received 8500 cGy 50 seeds placed Status post completion of IMRT/IGRT 04/28/2015 received 4500 cGy " On 05/01/15 12:43 Sandra Marquez wrote "Rising PSA to 7.46 Status post ultrasound-guided biopsies revealing adenocarcinoma [place] 4+3, biopsy stage T2c Initiation of hormone suppression Status post prostate seed implant 02/03/2015 with cesium 131 received 8500 cGy 50 seeds placed Status post completion of IMRT/IGRT 04/28/2015 received 4500 cGy " On 03/17/15 15:55 Sandra Marquez wrote "Rising PSA to 7.46 Status post ultrasound-guided biopsies revealing adenocarcinoma Gabriela 4+3, biopsy stage T2c Initiation of hormone suppression Status post prostate seed implant 02/03/2015 with cesium 131 received 8500 cGy 50 seeds placed Now for completion of IMRT/IGRT" Surgical History History of appendectomy H/O shoulder surgery Family History Other Heart disease Social History Smoking Status: Never smoker Tobacco Type: Cigarettes Second Hand Exposure: No; Do You Dip or Chew Tobacco: No; Hx Alcohol Use: No Hx Substance Use: No Preferred Language: Welsh Communication Ability: Effective Quality Assurance Technician Required: No Beliefs That Will Affect Care: None marital status: / Current Living Situation: Alone Feels Safe at Home: Yes Safety Concerns: Feels Safe At This Time Assistive Devices: Cane, Denture - Upper, Denture - Lower, Glasses and Oxygen - Continuous Review of Systems Review of Systems: All systems reviewed & are unremarkable except as noted in HPI & below Constitutional: + fatigue, + malaise and + weight gain Eyes: no problem reported Ear, Nose, Mouth, Throat: no problem reported Respiratory: + cough, + dyspnea and + dyspnea on exer tion Cardiovascular: + dyspnea and + edema (right foot) Gastrointestinal: no problem reported Genitourinary: no problem reported Musculoskeletal: + swelling (right foot) Integumentary: + wounds (right lateral forefoot) Neurologic: no problem reported Psychiatric: no problem reported Endocrine: no problem reported Hematologic / Lymphatic: no problem reported Allergy / Immunological: no problem reported Physical Exam Constitutional: WD/WN, vitals as above Eyes: PERRL, conjunctivae normal, anicteric sclerae ENMT: external ear and nose normal, oropharynx normal Neck: trachea midline, no thyromegaly Respiratory: normal respiratory effort, lungs clear to auscultation Cardiovascular: Extremities: normal capillary refill and + pedal edema (right foot) Right pedal pulses (PT and DP) are non palpable (0/4). Chest (Breasts): normal inspection/palpation of breasts Gastrointestinal (Abdomen): normal bowel sounds, soft, nontender, no hepatosplenomegaly Musculoskeletal: Extremities: + limited ROM of extremities and + foot abnormality Skin: + ulcer (ulcer noted to right lateral 5t h met head with probe to bone. ) and + nails dystrophic right foot lateral 5th metatarsal head non healing ulcer noted. Periwound macerated tissue and surrounding erythema. No ascending cellulitis. Serous drainage noted. Base of wound consists of fibrous tissue. Wound probes to 5th metatarsal head. No tracking or tunneling of the wound is appreciated. Neurologic: Motor/Sensory: + sensory deficit Psychiatric: A+Ox3, euthymic affect Results & Data Vital Signs (Past 12 Hours) Vital Signs Temp Pulse Pulse Resp BP Pulse Ox O2 Del Method 02/29/24 09:13 36.6 C 86 137/72 97 Nasal Cannula 02/29/24 08:06 36.5 C 84 21 117/78 96 Nasal Cannula 02/29/24 07:29 85 14 97 Nasal Cannula 02/29/24 03:20 36.4 C L 85 19 116/64 96 Nasal Cannula 02/28/24 23:25 36.7 C 74 20 121/71 98 Nasal Cannula 02/28/24 22:00 70 O2 Flow Rate 02/29/24 09:13 2 02/29/24 08:06 2 02/29/24 07:29 2 02/29/24 03:20 2 02/28/24 23:25 2 02/28/24 22:00 Diagnostic Findings MRI reviewed from [facility] demonstrates bone marrow edema at the level of 5th metatarsal head consistent with osteomyelitis. No discrete fluid collection.
--- NOTE | 2024-02-29 11:53 | Cardiology Progress Note ---
Date of Service February 29, 2024 Assessment & Plan (1) Acute on chronic HFrEF (heart failure with reduced ejection fraction): (2) Restrictive lung disease: (3) Severe pulmonary hypertension: (4) Stage 3b chronic kidney disease (CKD): (5) Stage III pressure ulcer: Plan Complex 88-year-old male with mixed underlying severe LV dysfunction with chronic systolic heart failure, restrictive lung disease with chronic hypoxia and severe pulmonary hypertension. Patient presents now with increased breathlessness. Mild congestive heart failure present but no significant jugular venous distention. Has responded predominately to increased oxygen supplementation Suspect volume overload not primary culprit Agree with treating underlying infectious process. Blood cultures ordered Will continue IV Bumex as ordered following renal function Will add topical nitrates for further hypertension control Resume prehospital medications Patient will require O2 supplement indefinitely given pulmonary hypertension, underlying pulmonary pathology Cardiology will continue to follow 02/28/2024 Slightly improved clinically Echocardiogram unchanged Will plan on continue diuresis with increased dose today expect further renal decline however Will discontinue topical nitrates Continue oxygen would not attempt to wean below 2 L will require chronic supplementation Overall prognosis guarded 02/29/2024 Patient feels less dyspneic this morning though with little diuresis. Lower extremity edema has improved Renal function has worsened with diuretics Suspect patient's sense of wellbeing is improved with antibiotic therapies Will continue diuretic through today's dosings Any operative risk will be at increased risk unless performed with local anesthesia. Orthopnea should be noted Admission and Anticipated Discharge Date Admission Date: February 27, 2024 Subjective Patient was seen and examined, chart, medications, telemetry reviewed Feels somewhat improved this morning there was little diuresis. Weight stable Still with orthopneic complaints Producing thick brown-soriano sputum on cough Telemetry without arrhythmias Review of Systems Review of Systems: All systems reviewed & are unremarkable except as noted in Subjective Physical Exam Constitutional: no acute distress Eyes: PERRL, conjunctivae normal, anicteric sclerae ENMT: external ear and nose normal, oropharynx normal Neck: trachea midline, no thyromegaly Respiratory: Auscultation: + diminished lung sounds (Right base) and + rales Cardiovascular: Rate/Rhythm: regular rate and regular rhythm Gastrointestinal (Abdomen): Inspection/Auscultation: + abdomen distended Skin: + ulcer (Nonhealing right foot) and + wo und Neurologic: PERRL, EOMI, accommodation nl, no face palsy, no dysarthria Results & Data Vital Signs (Past 12 Hours) Vital Signs Temp Pulse Pulse Resp BP Pulse Ox O2 Del Method 02/29/24 11:17 81 16 97 Nasal Cannula 02/29/24 10:50 36.4 C L 84 20 124/70 97 Nasal Cannula 02/29/24 09:13 36.6 C 86 137/72 97 Nasal Cannula 02/29/24 08:06 36.5 C 84 21 117/78 96 Nasal Cannula 02/29/24 07:30 86 02/29/24 07:30 Nasal Cannula 02/29/24 07:29 85 14 97 Nasal Cannula 02/29/24 03:20 36.4 C L 85 19 116/64 96 Nasal Cannula O2 Flow Rate 02/29/24 11:17 2 02/29/24 10:50 2.5 02/29/24 09:13 2 02/29/24 08:06 2 02/29/24 07:30 02/29/24 07:30 2 02/29/24 07:29 2 02/29/24 03:20 2 Laboratory Results Laboratory Results - last 24 hr 02/28/24 02/28/24 02/29/24 16:47 22:30 05:51 WBC 8.15 RBC 3.53 L Hgb 9.7 L Hct 29.9 L MCV 84.7 MCH 27.5 MCHC 32.4 RDW Std Deviation 46.5 H RDW Coeff of Nehemias 15.3 H Plt Count 321 MPV 9.8 Sodium 134 L Potassium 4.0 Chloride 98 Carbon Dioxide 33 H Anion Gap 3 BUN 69 H Creatinine 2.43 H Est Cr Clr Drug Dosing 24.0 Est GFR ( Amer) 26.5 Est GFR (Non-Af Amer) 22.9 BUN/Creatinine Ratio 28.4 H Glucose 110 H Calcium 9.1 Magnesium 2.4 Troponin I High Sens 295.7 H* D 258.5 H* 229.5 H* (5) Stage III pressure ulcer Laterality: right Pressure injury location: dorsum of foot Qualified Code(s): L89.893 - Pressure ulcer of other site, stage 3
--- NOTE | 2024-02-29 12:23 | Electrocardiogram Report ---
Test Reason : Blood Pressure : / mmHG Vent. 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
--- NOTE | 2024-02-29 16:33 | Hospitalist Progress Note ---
Date of Service February 29, 2024 Assessment & Plan (1) Acute on chronic HFrEF (heart failure with reduced ejection fraction): (2) Dyspnea on exertion: (3) Severe pulmonary hypertension: (4) Restrictive lung disease: (5) HTN (hypertension): (6) Hypoxia: (7) Nocturnal hypoxemia: (8) Stage 3b chronic kidney disease (CKD): Plan: Acute on chronic systolic CHF exacerbation Acute on chronic hypoxemia Chronic oxygen dependency--on 2 L at bedtime Fluid overload due to above Severe pulmonary hypertension --Chest CT:Redemonstration of innumerable pulmonary nodules which are nonspecific but may represent sarcoidosis, pneumonitis, or other chronic infe ctious/inflammatory process. No superimposed pneumonia is definitely seen. Bilateral pleural effusions have slightly increased from prior exam. --ECHO: Left ventricle is mildly dilated. Mild concentric LVH. 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 Left ventricle systolic function is severely reduced. EF 20 -25 %. Mild mitral, tricuspid regurgitation. Right ventricular systolic pressure is severely elevated> 60 mmHg. (ECHO unchanged from prior) --Continue IV Bumex 1 mg 3 times daily Appreciate cardiology input Monitor I's and O's, daily weight, volume status Poor prognosis Continue IV diuretics as per cardiology Renal function worse secondary to diuretics Saturating well on 3 L supplemental oxygen Right foot Wound Osteomyelitis - MRI R foot w/o contrast obtained as outpt reviewed - showing early osteo at the 5th metatarsal head -Wound cultures pending Empirically on Rocephin, Dapto Appreciate podiatry input Continue wound care Will consider ID evaluation when appropriate Given his comorbidities, patient has increased risk with surgical interventions Cardiology recommends to minimize sedation as able Planned for I&D to bone with fifth metatarsal head resection tomorrow NPO after midnight Recent Rhino Infection Remains positive on bio fire since last discharge Monitor HLD Hold statin while on Dapto TAYA on CKD IV Baseline Cr ~2 Expected from IV diuretics Monitor renal function Avoid nephrotoxic agents as able Cr:2.4 today Mood Disorder Continue home medication DVT Px: Heparin SQ CODE STATUS: Full code Admission and Anticipated Discharge Date Admission Date: February 27, 2024 Subjective Patient is seen and examined at bedside Was sleeping during my encounter this morning Reports having episode of delirium secondary to melatonin overnight Less dyspnea today Leg edema improving Discussed with podiatry today Denies any chest pain, dizziness, nausea, vomiting, abdominal pain Review of Systems Review of Systems: All systems reviewed & are unremarkable except as noted in Subjective Physical Exam Physical Exam: Physical Exam: Vitals signs as noted above General Appearance: Thin, frail, elderly, no apparent distress Head: normocephalic, Atraumatic Eyes: normal inspection, EOMI Neck: supple, Trachea midline Respiratory/Chest: Decreased breath sounds, R basal rales, No accessory muscle use Cardiovascular: S1, S2, + murmur Abdomen/GI:Soft, Non tender, Bowel sounds present,+ abdominal hernia Extremities/Musculoskeletal:normal inspection, +edema, R later foot ulcer Neurologic/Psych:AAOX3, grossly no focal neurological deficits Skin: normal color, warm, erythematous rash multiple areas Results & Data Results & Data Vital Signs (Past 12 Hours) Vital Signs Temp Pulse Pulse Resp BP Pulse Ox O2 Del Method 02/29/24 15:39 36.6 C 72 20 121/73 96 Nasal Cannula 02/29/24 15:13 83 15 Nasal Cannula 02/29/24 11:17 81 16 97 Nasal Cannula 02/29/24 10:50 36.4 C L 84 20 124/70 97 Nasal Cannula 02/29/24 09:13 36.6 C 86 137/72 97 Nasal Cannula 02/29/24 08:06 36.5 C 84 21 117/78 96 Nasal Cannula 02/29/24 07:30 86 02/29/24 07:30 Nasal Cannula 02/29/24 07:29 85 14 97 Nasal Cannula O2 Flow Rate FiO2 02/29/24 15:39 3 02/29/24 15:13 2 95 02/29/24 11:17 2 02/29/24 10:50 2.5 02/29/24 09:13 2 02/29/24 08:06 2 02/29/24 07:30 02/29/24 07:30 2 02/29/24 07:29 2 Laboratory Results Short CBC 02/29/24 Range/Units 05:51 WBC 8.15 (4.8-10.8) K/ul Hgb 9.7 L (14.0-18.0) g/dl Hct 29.9 L (42.0-52.0) % Plt Count 321 (130-400) K/uL BMP 02/29/24 05:51 Sodium 134 L Potassium 4.0 Chloride 98 Carbon Dioxide 33 H BUN 69 H Creatinine 2.43 H Glucose 110 H Calcium 9.1
--- NOTE | 2024-03-01 06:49 | Anesthesiology Consultation ---
Date of Service March 01, 2024 Assessment & Plan Chart Review Chart Review: Acceptable Risk for Surgery and Patient NOT seen in Pre Admission Testing Consults Requested none ASA ASA4 Proposed Anesthesia Anesthesia Type: MAC Risk / Benefits Reviewed With: PT / POA / Parent / Guardian, Accepts Plan and Informed Consent Obtained History Surgery Operation Date: 03/01/24 07:15 Proposed Procedures p Right Foot Incision and Drainage to Bone - Teresita Bass DPM Height/Weight Height: 6 ft 2 in Weight: 80.6 kg Allergies Allergy/AdvReac Type Severity Reaction Status Date / Time trazodone AdvReac Intermediate Hallucinati Verified 03/01/24 06:34 ng Medications Home Medications Medication Instructions Recorded Confirmed Last Taken aspirin 81 mg tablet,delayed 81 mg PO DAILY 05/21/19 02/27/24 03/28/23 release tamsulosin 0.4 mg capsule 0.4 mg PO AMHS 05/21/19 02/27/24 03/28/23 multivitamin-ferrous 1 tab PO DAILY 05/22/19 02/27/24 03/28/23 fumarate-folic acid 18 mg-400 mcg tablet (Centrum Complete) famotidine 20 mg tablet 20 mg PO QAM 03/06/23 02/27/24 03/28/23 guaifenesin 600 mg tablet, 600 mg PO Q12H PRN Cough 03/06/23 02/27/24 Unknown extended release 12 hr ipratropium bromide 17 2 puff inhalation QID 03/06/23 02/27/24 03/28/23 mcg/actuation HFA aerosol inhaler (Atrovent HFA) sodium chloride 0.65 % nasal spray 1 spray intranasal UD PRN 03/06/23 02/27/24 Unknown aerosol (Saline Nasal) Congestion fluticasone propionate 50 2 sprays intranasal QAM 09/09/23 02/27/24 Unknown mcg/actuation nasal spray,suspension rosuvastatin 10 mg tablet 10 mg PO HS 09/09/23 02/27/24 Unknown clopidogrel 75 mg tablet 75 mg PO QAM #30 tabs 09/12/23 02/27/24 Unknown isosorbide mononitrate 60 mg 60 mg PO QAM #30 tabs 09/12/23 02/27/24 Unknown tablet,extended release 24 hr metoprolol succinate 25 mg 25 mg PO QAM #30 tabs 12/12/23 05/28/24 Unknown tablet,extended release 24 hr nitroglycerin 0.4 mg sublingual 0.4 mg sublingual Q5M PRN chest 09/12/23 02/27/24 Unknown tablet (Nitrostat) pain #30 tabs allopurinol 100 mg tablet 100 mg PO QAM 01/30/24 02/27/24 Unknown torsemide 20 mg tablet 80 mg (4 x 20 mg) PO QAM 30 days 02/07/24 02/27/24 Unknown #120 tabs citalopram 20 mg tablet 20 mg PO QAM 02/27/24 02/27/24 Unknown hydralazine 10 mg tablet 10 mg PO AMHS 02/27/24 02/27/24 Unknown mometasone 0.1 % topical ointment 1 applic topical DAILY 02/27/24 02/27/24 Unknown pantoprazole 40 mg tablet,delayed 40 mg PO QAM 02/27/24 02/27/24 Unknown release Active Medications Generic Name Dose Route Start Last Admin Trade Name Fre PRN Reason Stop Dose Admin Allopurinol 100 mg 02/28/24 09:00 02/29/24 09:18 Allopurinol 100 Mg Tab PO 03/29/24 08:59 100 mg QAM CLAUDIA Administration Aspirin 81 mg 02/28/24 09:00 02/29/24 09:18 Aspirin 81 Mg Ectab PO 03/29/24 08:59 81 mg DAILY CLAUDIA Administration Citalopram Hydrobromide 20 mg 02/28/24 09:00 02/29/24 09:18 Citalopram 20 Mg Tab PO 03/29/24 08:59 20 mg QAM CLAUDIA Administration Clopidogrel Bisulfate 75 mg 02/28/24 09:00 02/29/24 09:19 Clopidogrel Bisulfate 75 Mg Tab PO 03/29/24 08:59 75 mg QAM CLAUDIA Administration Famotidine 20 mg 02/28/24 09:00 02/29/24 09:18 Famotidine 20 Mg Tab PO 03/29/24 08:59 20 mg QAM CLAUDIA Administration Fluticasone Propionate 2 sprays 02/28/24 09:00 02/29/24 09:17 Fluticasone Propionate Na Spr 16 Gm Btl NA 03/29/24 08:59 2 sprays QAM CLAUDIA Administration Heparin Sodium (Porcine) 5,000 units 02/28/24 21:00 02/29/24 20:24 Heparin Sod 5,000 Unit/0.5 Ml Vial SQ 03/29/24 20:59 5,000 units Q12 CLAUDIA Administration Hydralazine HCl 10 mg 02/27/24 21:00 02/29/24 20:20 Hydralazine 10 Mg Tab PO 03/28/24 20:59 10 mg AMHS CLAUDIA Administration Ceftriaxone Sodium 2,000 mg in 50 mls @ 100 mls/hr 02/28/24 16:00 02/29/24 17:29 Rocephin IV 04/10/24 15:59 Infused Q24H CLAUDIA Infusion Bumetanide 1 mg/ Syringe 4 mls @ 4 mls/min 02/28/24 14:15 02/29/24 16:41 IV 03/29/24 14:14 4 mls/min TIDM CLAUDIA Administration Daptomycin 325 mg/ Syringe 6.5 mls @ 3.25 mls/min 02/29/24 08:00 02/29/24 08:28 IV 04/11/24 07:59 3.25 mls/min Q48H CLAUDIA Administration Protocol Ipratropium [place] 2 puffs 02/27/24 19:00 02/29/24 19:41 Ipratropium [place] Hfa Inhaler INH 03/28/24 18:59 2 puffs QIDR CLAUDIA Administration Isosorbide Mononitrate 60 mg 02/28/24 09:00 02/29/24 09:18 Isosorbide [place] Extended Rel 60 Mg Tabcr PO 03/29/24 08:59 60 mg QAM CLAUDIA Administration Metoprolol Succinate 25 mg 02/27/24 16:00 02/29/24 09:18 Metoprolol Succ 25mg Ext Rel Tab PO 03/28/24 15:59 25 mg QAM CLAUDIA Administration Mometasone Furoate 1 appln 02/28/24 09:00 02/29/24 09:19 Mometasone Furoate 0.1% Oint 15 Gm Tube EXT 03/29/24 08:59 1 appln DAILY CLAUDIA Administration Multivitamins 1 tab 02/28/24 09:00 02/29/24 09:19 Multivitamin Tab PO 03/29/24 08:59 1 tab DAILY CLAUDIA Administration Pantoprazole Sodium 40 mg 02/28/24 09:00 02/29/24 09:19 Pantoprazole 40 Mg Tab PO 03/29/24 08:59 40 mg QAM CLAUDIA Administration Rosuvastatin Calcium 10 mg 02/27/24 21:00 02/27/24 20:54 Rosuvastatin Calcium 10 Mg Tab PO 03/28/24 20:59 10 mg HS CLAUDIA Administration Tamsulosin HCl 0.4 mg 02/27/24 21:00 02/29/24 20:20 Tamsulosin Hcl 0.4 Mg Cap PO 03/28/24 20:59 0.4 mg AMHS CLAUDIA Administration NPO Date Last Intake of Fluids: 02/29/24 Time Last Intake of Fluids: 21:30 Date Last Intake of Solids: 02/29/24 Time Last Intake of Solids: 21:00 Past Medical History Medical History Acute on chronic renal failure Elevated troponin I level Chest pain Pulmonary edema Prostate cancer (11/03/14) "Rising PSA to 7.46 Status post ultrasound-guided biopsies revealing adenocarcinoma [place] 4+3, biopsy stage T2c Initiation of hormone suppression prior to prostate seed implant, short course Status post prostate seed implant 02/03/2015 with cesium 131 received 8500 cGy 50 seeds placed Status post completion of IMRT/IGRT 04/28/2015 received 4500 cGy " On 05/26/15 14:44 Shira Goldberg wrote "Rising PSA to 7.46 Status post ultrasound-guided biopsies revealing adenocarcinoma [place] 4+3, biopsy stage T2c Initiation of hormone suppression prior to prostate seed implant Status post prostate seed implant 02/03/2015 with cesium 131 received 8500 cGy 50 seeds placed Status post completion of IMRT/IGRT 04/28/2015 received 4500 cGy " On 05/01/15 12:43 Sandra Marquez wrote "Rising PSA to 7.46 Status post ultrasound-guided biopsies revealing adenocarcinoma [place] 4+3, biopsy stage T2c Initiation of hormone suppression Status post prostate seed implant 02/03/2015 with cesium 131 received 8500 cGy 50 seeds placed Status post completion of IMRT/IGRT 04/28/2015 received 4500 cGy " On 03/17/15 15:55 Sandra Marquez wrote "Rising PSA to 7.46 Status post ultrasound-guided biopsies revealing adenocarcinoma [place] 4+3, biopsy stage T2c Initiation of hormone suppression Status post prostate seed implant 02/03/2015 with cesium 131 received 8500 cGy 50 seeds placed Now for completion of IMRT/IGRT" Exercise / Class Metabolic Activity III < 4 Walking/Shop/Light housework Past Family History Family History Other Heart disease Past Surgical History Surgical History History of appendectomy H/O shoulder surgery Past Anesthesia History No Hx of Anesthesia Complications and No Family Hx of Anesthesia Complications History of PONV No Hx of PONV and No Hx of Motion Sickness Social History Smoking Status: Never smoker Do You Dip or Chew Tobacco: No Hx Alcohol Use: No Hx Substance Use: No Physical Exam Vital Signs Last Vital Signs Temp 36.5 C 03/01/24 06:34 Pulse 102 H 03/01/24 06:34 Resp 22 03/01/24 06:34 BP 151/90 H 03/01/24 06:34 Pulse Ox 98 03/01/24 06:34 O2 Del Method Nasal Cannula 03/01/24 06:34 O2 Flow Rate 3 03/01/24 06:34 FiO2 95 02/29/24 15:13 Constitutional not cachectic ENMT Mouth: + dentition abnormality and + dentures Thyromental Distance: > or= 3.5 Finger Breadths Mallampati Class: II Neck normal visual inspection and trachea midline; neck extension not limited Respiratory + uses accessory muscles Auscultation: + diminished lung sounds and + crackles Cardiovascular Rate/Rhythm: regular rate and regular rhythm Heart Sounds: no murmur Vessels: no carotid bruit Musculoskeletal Spine: normal cervical ROM and no pain with cervical ROM Extremities: extremities normal to inspection; full ROM of extremities Neurologic moves all extremities Motor/Sensory: no sensory deficit Psychiatric Orientation: alert and oriented x 3 Testing Laboratory Results 02/29/24 05:51 02/29/24 05:51 PT 11.8 Seconds (9.0-12.0) 02/27/24 12:30 INR 1.1 (0.9-1.1) 02/27/24 12:30 APTT 26 Seconds (21-31) 02/27/24 12:30 Urine Color Yellow 02/27/24 14:26 Urine Appearance Clear (Clear) 02/27/24 14: Urine pH 5.5 (4.5-7.5) 02/27/24 14:26 Ur Specific [place] 1.017 (1.000-1.030) 02/27/24 14:26 Urine Protein Trace (Negative) H 02/27/24 14:26 Urine Glucose (UA) 2+ (Negative) H 02/27/24 14:26 Urine Ketones Negative (Negative) 02/27/24 14: Urine Nitrite Negative (Negative) 02/27/24 14:26 Ur Leukocyte Esterase Negative (Negative) 02/27/24 14:26 Urine WBC (Auto) 0-5 /hpf (0-5) 02/27/24 14: Urine RBC (Auto) 0-2 /hpf (0-2) 02/27/24 14: U Hyaline Cast (Auto) 3-5 /lpf (0-2) H 02/27/24 14:26 U Epithel Cells (Auto) 0-2 /hpf (0-2) 02/27/24 14:26 Urine Bacteria (Auto) None Seen (None Seen) 02/27/24 14:26 02/27/24 15:57 Aerobic Blood Culture - Preliminary Blood No growth in Aerobic bottle after 48 hours. Anaerobic Blood Culture - Preliminary No growth in Anaerobic bottle after 48 hours. 02/27/24 15:55 Aerobic Blood Culture - Preliminary Blood No growth in Aerobic bottle after 48 hours. Anaerobic Blood Culture - Preliminary No growth in Anaerobic bottle after 48 hours. 02/27/24 Unknown Gram Stain - Final Foot,Right Wound Culture - Preliminary No growth to date.
[2024-03-01] MEDS ORDERED: VANCOMYCIN LEVEL ONE (07:00)
[2024-03-01] MEDS: LACTATED RINGER'S 1,000 ML IV SCH (07:00)
[2024-03-01] MEDS ORDERED: fentaNYL citrate PF 100 MCG/2 ML VIAL ONE (07:01)
--- NOTE | 2024-03-01 07:13 | History & Physical Bridge Note ---
Date of Service March 01, 2024 History & Physical Bridge Note I have examined the patient, reviewed the History & Physical and in the interval since the performance of the History & Physical I have noted the following changes of clinical significance: no changes noted
--- NOTE | 2024-03-01 07:16 | Communication Note ---
Date of Service: March 01, 2024 02/29/2024-CXR-CM;ASCVD Aorta;small-mod. Rt pleural effusion/small left pleural effusion;bibasilar densities 02/29/20243243-OFM-ETQ @ 92;old septal infarct;Difuse NS ST & T wave changes 02/28/2024-ECHO- EF-20%;LV apical aneurysm;Mild MR/TR;RV sys pressure > 60 Torr
[2024-03-01] MEDS ORDERED: ATROPINE SULFATE 0.1 MG/ML 10ML SYR IV PRN (07:24)
[2024-03-01] MEDS ORDERED: ePHEDrine sulfate 50 MG/ML AMP IV PRN (07:24)
[2024-03-01] MEDS: BUPIVACAINE 0.25% PF 30 ML VIAL ONE (07:40)
[2024-03-01] MEDS ORDERED: PROPOFOL IV EMULSION 10 MG/ML 20 ML VIAL IV ONE (07:41)
--- NOTE | 2024-03-01 08:46 | Post Operative Brief Note ---
Immediate Post Op Note v1 Date of Surgery March 01, 2024 Pre & Post Diagnosis Operation Date: 03/01/24 07:15 Pre-Op Diagnosis: Right foot osteomyelitis Post-Op Diagnosis: Right foot osteomyelitis I identified the patient and participated in the time-out.: Yes Procedure Operation Date: 03/01/24 07:15 Actual Procedures p Right Foot Incision and Drainage to Bone(Right) - Teresita Bass DPM Surgeon Teresita Bass DPM Technical System Analyst none Estimated Blood Loss 5 Findings Consistent with Post-Op Diagnosis Specimens right 5th metatarsal head pathology right 5th metatarsal head aerobic, anaerobic cultures with gram stain Anesthesia Type MAC Complications none Disposition Accompanied Patient To Recovery: Yes
--- NOTE | 2024-03-01 09:11 | Anesthesiology Progress Note ---
Date of Service March 01, 2024 Anesthesia Post Procedure Vital Signs Vital Signs: Temp Pulse Pulse Pulse Resp BP Pulse Ox 03/01/24 09:10 98 H 21 129/74 94 03/01/24 09:00 37.1 C 102 H 22 136/80 95 03/01/24 08:50 103 H 24 139/90 95 03/01/24 08:43 36.1 C L 107 H 24 144/88 H 98 03/01/24 06:34 36.5 C 102 H 22 151/90 H 98 03/01/24 03:39 36.5 C 82 18 143/73 H 96 02/29/24 22:38 36.5 C 81 18 133/69 96 02/29/24 22:04 75 02/29/24 20:30 02/29/24 19:41 36.8 C 83 16 130/72 96 02/29/24 19:41 83 18 96 02/29/24 15:39 36.6 C 72 20 121/73 96 02/29/24 15:13 83 15 02/29/24 11:17 81 16 97 02/29/24 10:50 36.4 C L 84 20 124/70 97 02/29/24 09:13 36.6 C 86 137/72 97 O2 Del Method O2 Flow Rate FiO2 03/01/24 09:10 Nasal Cannula 2 03/01/24 09:00 Nasal Cannula 2 03/01/24 08:50 Nasal Cannula 2 03/01/24 08:43 Nasal Cannula 4 03/01/24 06:34 Nasal Cannula 3 03/01/24 03:39 Nasal Cannula 2 02/29/24 22:38 Nasal Cannula 2 02/29/24 22:04 02/29/24 20:30 Nasal Cannula 2 02/29/24 19:41 Nasal Cannula 2 02/29/24 19:41 Nasal Cannula 2 02/29/24 15:39 Nasal Cannula 3 02/29/24 15:13 Nasal Cannula 2 95 02/29/24 11:17 Nasal Cannula 2 02/29/24 10:50 Nasal Cannula 2.5 02/29/24 09:13 Nasal Cannula 2 Transfer of Care Handoff Completed per policy Notes Mental Status: alert / awake / arousable Patient Amnestic to Procedure: Yes Nausea / Vomiting: adequately controlled Pain: adequately controlled Airway Patency, RR, SpO2: stable & adequate BP & HR: stable & adequate Hydration State: stable & adequate Anesthetic Complications: no major complications apparent
--- NOTE | 2024-03-01 09:23 | Fluoroscopy Report ---
FL foot RT 2V CLINICAL HISTORY: Right foot surgery. COMPARISON STUDY: None. FLUOROSCOPY TIME: 3 seconds. FLUOROSCOPY IMAGES: 2 Ka,r: 0.09 mGy FINDINGS: Resection of the head of the fifth metatarsal. IMPRESSION: Fluoroscopic assistance as above. ACT 112: Negative or not required by law. Electronically signed by: Mike Velasquez M.D. 03/01/2024 9:21 AM
[2024-03-01 11:16] LABS: Hematocrit (blood only) 33.4 % (42.0-52.0); Hemoglobin 10.7 g/dl (14.0-18.0); Mean Corpuscular Hemoglobin 27.2 pg (25.0-34.0); Mean Platelet Volume 9.7 fL (9.4-12.4); Platelet Count 362 K/uL (130-400); RDW Coefficient of Variation 15.5 % (11.5-14.5); RDW Standard Deviation 47.8 fL (36.4-46.3); Red Blood Count 3.93 M/uL (4.70-6.10); White Blood Count 11.66 K/ul (4.8-10.8)
[2024-03-01 11:32] LABS: BUN Creatinine Ratio 29.4 (10-20); Calcium 9.9 mg/dl (8.6-10.3); Creatinine Clr Calc Pharmacy 24.5 ml/min; Est GFR (African American) 27.2 ml/min; Est GFR (Non-African American) 23.5 ml/min; Potassium 3.7 mmol/L (3.5-5.1)
--- NOTE | 2024-03-01 14:32 | Cardiology Progress Note ---
Date of Service March 01, 2024 Assessment & Plan (1) Acute on chronic HFrEF (heart failure with reduced ejection fraction): (2) Restrictive lung disease: (3) Severe pulmonary hypertension: (4) Stage 3b chronic kidney disease (CKD): (5) Stage III pressure ulcer: Plan Complex 88-year-old male with mixed underlying severe LV dysfunction with chronic systolic heart failure, restrictive lung disease with chronic hypoxia and severe pulmonary hypertension. Patient presents now with increased breathlessness. Mild congestive heart failure present but no significant jugular venous distention. Has responded predominately to increased oxygen supplementation Suspect volume overload not primary culprit Agree with treating underlying infectious process. Blood cultures ordered Will continue IV Bumex as ordered following renal function Will add topical nitrates for further hypertension control Resume prehospital medications Patient will require O2 supplement indefinitely given pulmonary hypertension, underlying pulmonary pathology Cardiology will continue to follow 02/28/2024 Slightly improved clinically Echocardiogram unchanged Will plan on continue diuresis with increased dose today expect further renal decline however Will discontinue topical nitrates Continue oxygen would not attempt to wean below 2 L will require chronic supplementation Overall prognosis guarded 02/29/2024 Patient feels less dyspneic this morning though with little diuresis. Lower extremity edema has improved Renal function has worsened with diuretics Suspect patient's sense of wellbeing is improved with antibiotic therapies Will continue diuretic through today's dosings Any operative risk will be at increased risk unless performed with local anesthesia. Orthopnea should be noted 03/01/2024 Little clinical change with chronic dyspnea and O2 requirements. Diuresis with increased diuretics resulted in worsening renal insufficiency. Exam today without distinct jugular venous distention but diminished breath sounds on lung varela. Holding diuresis today Will increase beta-stanford slightly for further rate control with activity Discussed care and management with daughter. Multiple system organ involvement including severe cardiomyopathy, severe underlying pulmonary disease with O2 requirements and worsening renal sufficiency a concern. Now with a peripheral osteomyelitis Prognosis is very guarded Daughter notes patient previously DNR/DNI on past hospitalizations. She is realistic regarding prognosis though brother is emotionally committed Admission and Anticipated Discharge Date Admission Date: February 27, 2024 Subjective Patient seen and examined, chart, medications, telemetry reviewed Still dyspneic at rest mildly with dyspnea with any exertion, bowel movements. Wearing oxygen with good saturation Underwent surgical debridement of osteomyelitis right foot this morning Little diuresis with weight stable but rising creatinine with increased diuretic dosage Review of Systems Review of Systems: All systems reviewed & are unremarkable except as noted in Subjective Physical Exam Constitutional: no acute distress Eyes: PERRL, conjunctivae normal, anicteric sclerae ENMT: external ear and nose normal, oropharynx normal Neck: trachea midline, no thyromegaly Respiratory: Auscultation: + diminished lung sounds (Right base) Cardiovascular: Rate/Rhythm: regular rate and regular rhythm Vessels: no JVD Extremities: + edema (Trace, right foot bandaged) Gastrointestinal (Abdomen): Percussion/Palpation: abdomen soft; abdomen nontender Skin: + ulcer (Nonhealing right foot) and + wo und Neurologic: PERRL, EOMI, accommodation nl, no face palsy, no dysarthria Results & Data Vital Signs (Past 12 Hours) Vital Signs Temp Pulse Pulse Resp BP Pulse Ox O2 Del Method 03/01/24 11:36 104 H 18 97 Nasal Cannula 03/01/24 11:12 98 H 135/85 03/01/24 10:00 Nasal Cannula 03/01/24 09:42 36.7 C 99 H 133/82 98 Nasal Cannula 03/01/24 09:10 98 H 21 129/74 94 Nasal Cannula 03/01/24 09:00 37.1 C 102 H 22 136/80 95 Nasal Cannula 03/01/24 08:50 103 H 24 139/90 95 Nasal Cannula 03/01/24 08:43 36.1 C L 107 H 24 144/88 H 98 Nasal Cannula 03/01/24 06:34 36.5 C 102 H 22 151/90 H 98 Nasal Cannula 03/01/24 03:39 36.5 C 82 18 143/73 H 96 Nasal Cannula O2 Flow Rate 03/01/24 11:36 2 03/01/24 11:12 03/01/24 10:00 2 03/01/24 09:42 2 03/01/24 09:10 2 03/01/24 09:00 2 03/01/24 08:50 2 03/01/24 08:43 4 03/01/24 06:34 3 03/01/24 03:39 2 Laboratory Results Laboratory Results - last 24 hr 03/01/24 10:44 WBC 11.66 H RBC 3.93 L Hgb 10.7 L Hct 33.4 L MCV 85.0 MCH 27.2 MCHC 32.0 RDW Std Deviation 47.8 H RDW Coeff of Nehemias 15.5 H Plt Count 362 MPV 9.7 Sodium 138 Potassium 3.7 Chloride 96 L Carbon Dioxide 30 Anion Gap 12 H BUN 70 H Creatinine 2.38 H Est Cr Clr Drug Dosing 24.5 Est GFR ( Amer) 27.2 Est GFR (Non-Af Amer) 23.5 BUN/Creatinine Ratio 29.4 H Glucose 127 H Calcium 9.9 (5) Stage III pressure ulcer Laterality: right Pressure injury location: dorsum of foot Qualified Code(s): L89.893 - Pressure ulcer of other site, stage 3
--- NOTE | 2024-03-01 17:46 | Hospitalist Progress Note ---
Date of Service March 01, 2024 Assessment & Plan (1) Acute on chronic HFrEF (heart failure with reduced ejection fraction): (2) Dyspnea on exertion: (3) Severe pulmonary hypertension: (4) Restrictive lung disease: (5) HTN (hypertension): (6) Hypoxia: (7) Nocturnal hypoxemia: (8) Stage 3b chronic kidney disease (CKD): Plan: Acute on chronic systolic CHF exacerbation Acute on chronic hypoxic respiratory failure Chronic oxygen dependency--on 2 L at bedtime Fluid overload due to above Severe pulmonary hypertension --Chest CT:Redemonstration of innumerable pulmonary nodules which are nonspecific but may represent sarcoidosis, pneumonitis, or other chronic infectious/inflammatory process. No superimposed pneumonia is definitely seen. Bilateral pleural effusions have slightly increased from prior exam. --ECHO: Left ventricle is mildly dilated. Mild concentric LVH. 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 Left ventricle systolic function is severely reduced. EF 20 -25 %. Mild mitral, tricuspid regurgitation. Right ventricular systolic pressure is severely elevated> 60 mmHg. (ECHO unchanged from prior) Appreciate cardiology input Monitor I's and O's, daily weight, volume status Poor prognosis Hold IV Bumex as renal function worsening Saturating well on 2 L supplemental oxygen Added metoprolol succinate 12.5 mg at bedtime for better rate control Need to readdress CODE STATUS Right foot Wound/Osteomyelitis - MRI R foot w/o contrast obtained as outpt reviewed - showing early osteo at the 5th metatarsal head --S/P Right Foot Incision and Drainage to Bone by on 03/01/2024 -Wound cultures pending Empirically on Rocephin, Dapto Appreciate podiatry input Continue wound care Will consider ID evaluation when appropriate Continue wound care Recent Rhino Infection Remains positive on bio fire since last discharge Monitor HLD Hold statin while on Dapto TAYA on CKD IV Baseline Cr ~2 Expected from IV diuretics Monitor renal function Avoid nephrotoxic agents as able Cr:2.3 today Mood Disorder Continue home medication DVT Px: Heparin SQ CODE STATUS: Full code Admission and Anticipated Discharge Date Admission Date: February 27, 2024 Subjective Patient is seen and examined at bedside Patient had right foot I&D this morning Discussed with cardiology today Reports having shortness of breath postprocedure Discussed with patient's family at bedside Still has some intermittent cough Denies any chest pain, dizziness, nausea, vomiting, abdominal pain Review of Systems Review of Systems: All systems reviewed & are unremarkable except as noted in Subjective Physical Exam Physical Exam: Physical Exam: Vitals signs as noted above General Appearance: Thin, frail, elderly, no apparent distress Head: normocephalic, Atraumatic Eyes: normal inspection, EOMI Neck: supple, Trachea midline Respiratory/Chest: Decreased breath sounds, CTA, No accessory muscle use Cardiovascular: S1, S2, + murmur Abdomen/GI:Soft, Non tender, Bowel sounds present,+ abdominal hernia Extremities/Musculoskeletal:normal inspection, +edema, R foot in dressing Neurologic/Psych:AAOX3, grossly no focal neurological deficits Skin: normal color, warm, erythematous rash multiple areas Results & Data Results & Data Vital Signs (Past 12 Hours) Vital Signs Temp Pulse Pulse Pulse Resp BP Pulse Ox 03/01/24 15:59 36.3 C L 88 19 129/82 97 03/01/24 15:35 84 16 97 03/01/24 11:36 104 H 18 97 03/01/24 11:12 98 H 135/85 03/01/24 10:00 85 03/01/24 10:00 03/01/24 09:42 36.7 C 99 H 133/82 98 03/01/24 09:10 98 H 21 129/74 94 03/01/24 09:00 37.1 C 102 H 22 136/80 95 03/01/24 08:50 103 H 24 139/90 95 03/01/24 08:43 36.1 C L 107 H 24 144/88 H 98 03/01/24 06:34 36.5 C 102 H 22 151/90 H 98 O2 Del Method O2 Flow Rate 03/01/24 15:59 Nasal Cannula 2 03/01/24 15:35 Nasal Cannula 2 03/01/24 11:36 Nasal Cannula 2 03/01/24 11:12 03/01/24 10:00 03/01/24 10:00 Nasal Cannula 2 03/01/24 09:42 Nasal Cannula 2 03/01/24 09:10 Nasal Cannula 2 03/01/24 09:00 Nasal Cannula 2 03/01/24 08:50 Nasal Cannula 2 03/01/24 08:43 Nasal Cannula 4 03/01/24 06:34 Nasal Cannula 3 Laboratory Results Short CBC 03/01/24 Range/Units 10:44 WBC 11.66 H (4.8-10.8) K/ul Hgb 10.7 L (14.0-18.0) g/dl Hct 33.4 L (42.0-52.0) % Plt Count 362 (130-400) K/uL BMP 03/01/24 10:44 Sodium 138 Potassium 3.7 Chloride 96 L Carbon Dioxide 30 BUN 70 H Creatinine 2.38 H Glucose 127 H Calcium 9.9
[2024-03-01] MEDS: METOPROLOL SUCC 25MG EXT REL TAB PO SCH (20:50)
[2024-03-02 06:55] LABS: BUN Creatinine Ratio 31.1 (10-20); Calcium 9.2 mg/dl (8.6-10.3); Creatinine Clr Calc Pharmacy 25.9 ml/min; Est GFR (African American) 29.1 ml/min; Est GFR (Non-African American) 25.1 ml/min; Potassium 3.5 mmol/L (3.5-5.1)
--- NOTE | 2024-03-02 07:38 | Cardiology Progress Note ---
Date of Service March 02, 2024 Assessment & Plan (1) Acute on chronic HFrEF (heart failure with reduced ejection fraction): (2) Restrictive lung disease: (3) Severe pulmonary hypertension: (4) Stage 3b chronic kidney disease (CKD): (5) Stage III pressure ulcer: Plan Complex 88-year-old male with mixed underlying severe LV dysfunction with chronic systolic heart failure, restrictive lung disease with chronic hypoxia and severe pulmonary hypertension. Patient presents now with increased breathlessness. Mild congestive heart failure present but no significant jugular venous distention. Has responded predominately to increased oxygen supplementation Suspect volume overload not primary culprit Agree with treating underlying infectious process. Blood cultures ordered Will continue IV Bumex as ordered following renal function Will add topical nitrates for further hypertension control Resume prehospital medications Patient will require O2 supplement indefinitely given pulmonary hypertension, underlying pulmonary pathology Cardiology will continue to follow 02/28/2024 Slightly improved clinically Echocardiogram unchanged Will plan on continue diuresis with increased dose today expect further renal decline however Will discontinue topical nitrates Continue oxygen would not attempt to wean below 2 L will require chronic supplementation Overall prognosis guarded 02/29/2024 Patient feels less dyspneic this morning though with little diuresis. Lower extremity edema has improved Renal function has worsened with diuretics Suspect patient's sense of wellbeing is improved with antibiotic therapies Will continue diuretic through today's dosings Any operative risk will be at increased risk unless performed with local anesthesia. Orthopnea should be noted 03/01/2024 Little clinical change with chronic dyspnea and O2 requirements. Diuresis with increased diuretics resulted in worsening renal insufficiency. Exam today without distinct jugular venous distention but diminished breath sounds on lung varela. Holding diuresis today Will increase beta-stanford slightly for further rate control with activity Discussed care and management with daughter. Multiple system organ involvement including severe cardiomyopathy, severe underlying pulmonary disease with O2 requirements and worsening renal sufficiency a concern. Now with a peripheral osteomyelitis Prognosis is very guarded. Daughter notes patient previously DNR/DNI on past hospitalizations. She is mei listic regarding prognosis though brother is emotionally committed 03/02/2024 Mild improvement in renal function with holding of diuretics. Pulmonary status stable- Little clinical change with chronic dyspnea and O2 requirements. Volume status appears compensated- continue to hold diuretics. HR well controlled in the 70-80s on current dose of beta stanford (metoprolol succinate 25 mg in the am and 12.5 mg in the pm), continue. Case discussed with Dr. Burger. Further recommendations pending assessment. I spent a total of 30 minutes on the date of service in preparation, delivery, and documentation of the care provided to the patient excluding any time spent in the performance of separately billed services. DAV Lowe Department of Cardiology, [facility] This chart was completed in part utilizing Speech Voice Recognition Software. Grammatical errors, random word insertions, pronoun errors, and incomplete sentences are an occasional consequence of this system due to software limitations, ambient noise, and hardware issues. Any formal questions or concerns about the content, text, or information contained within the body of this dictation should be directly addressed to the provider for clarification. Admission and Anticipated Discharge Date Admission Date: February 27, 2024 Supervising Physician Co-Signing Physician Notes I have personally performed a history and physical examination on the patient. I have reviewed the advance practitioner's documentation, and I agree with, and take responsibility for the plan of care. 88-year-old patient with multifactorial respiratory insufficiency. No significant treatment with diuretic therapy. Continue to hold diuretic therapy today. Renal function improving. Heart rate improved with titration of beta- stanford therapy. No medication changes today from a cardiac standpoint. I spent a total of 20 minutes on the date of service in preparation, delivery, and documentation of the care provided to this patient, excluding any time spent in the performance of separately billed services. Subjective Patient seen and examined, chart, medications, telemetry reviewed. Son at bedside. Still BUTT with mild dyspnea at rest. Wearing oxygen with good saturation Underwent surgical debridement of osteomyelitis right foot 03/01/2024 Slight improvement in scr with holding of diureitcs; patient appears euvolemic on exam. Review of Systems Review of Systems: All systems reviewed & are unremarkable except as noted in Subjective Physical Exam Constitutional: no acute distress Eyes: PERRL, conjunctivae normal, anicteric sclerae ENMT: external ear and nose normal, oropharynx normal Neck: trachea midline, no thyromegaly Respiratory: Auscultation: + diminished lung sounds; no rales, no rhonchi and no wheezes Cardiovascular: Rate/Rhythm: regular rate and regular rhythm Vessels: no JVD Extremities: + edema (Trace, right foot bandaged) Gastrointestinal (Abdomen): Inspection/Auscultation: + abdomen distended Percussion/Palpation: abdomen soft; abdomen nontender Neurologic: PERRL, EOMI, accommodation nl, no face palsy, no dysarthria Psychiatric: A+Ox3, euthymic affect Results & Data Vital Signs (Past 12 Hours) Vital Signs Temp Pulse Pulse Resp BP Pulse Ox O2 Del Method 03/02/24 07:05 72 16 98 Nasal Cannula 03/02/24 03:33 36.4 C L 87 18 136/75 98 Nasal Cannula 03/01/24 23:25 36.4 C L 82 19 124/66 96 Nasal Cannula 03/01/24 21:55 78 03/01/24 20:35 Nasal Cannula 03/01/24 19:44 16 98 Nasal Cannula O2 Flow Rate 03/02/24 07:05 2 03/02/24 03:33 3 03/01/24 23:25 3 03/01/24 21:55 03/01/24 20:35 3 03/01/24 19:44 2 Laboratory Results CBC 03/01/24 Range/Units 10:44 WBC 11.66 H (4.8-10.8) K/ul RBC 3.93 L (4.70-6.10) M/uL Hgb 10.7 L (14.0-18.0) g/dl Hct 33.4 L (42.0-52.0) % Plt Count 362 (130-400) K/uL Comprehensive Metabolic Panel 03/01/24 03/02/24 Range/Units 10:44 05:48 Sodium 138 137 (136-145) mmol/L Potassium 3.7 3.5 (3.5-5.1) mmol/L Chloride 96 L 96 L (98-107) mmol/L Carbon Dioxide 30 32 (21-32) mmol/L BUN 70 H 70 H (6-23) mg/dl Creatinine 2.38 H 2.25 H (0.6-1.4) mg/dl Glucose 127 H 120 H (70-99(Fasting)) mg/dl Calcium 9.9 9.2 (8.6-10.3) mg/dl Intake and Output 03/01/24 03/02/24 03/02/24 22:59 06:59 14:59 Intake Total 50 / 1740 550 / 1740 Output Total 125 / 630 250 / 630 125 / 125 Balance -75 / 1110 300 / 1110 -125 / -125 Intake: IV 50 / 50 cefTRIAXone SODIUM 2,000 mg In 50 / 50 50 ml @ 100 mls/hr IV Q24H [facility] Rx#:[id number] Oral 550 / 1490 Output: Urine 125 / 625 250 / 625 125 / 125 Other: # Unmeasured Voids 1 (5) Stage III pressure ulcer Laterality: right Pressure injury location: dorsum of foot Qualified Code(s): L89.893 - Pressure ulcer of other site, stage 3
[2024-03-02] MEDS: POTASSIUM CHLORIDE CRTAB 20 MEQ TABCR PO STA (08:34)
--- NOTE | 2024-03-02 17:15 | Hospitalist Progress Note ---
Date of Service March 02, 2024 Assessment & Plan (1) Acute on chronic HFrEF (heart failure with reduced ejection fraction): (2) Dyspnea on exertion: (3) Severe pulmonary hypertension: (4) Restrictive lung disease: (5) HTN (hypertension): (6) Hypoxia: (7) Nocturnal hypoxemia: (8) Stage 3b chronic kidney disease (CKD): Plan: Acute on chronic systolic CHF exacerbation Acute on chronic hypoxic respiratory failure Chronic oxygen dependency--on 2 L at bedtime Fluid overload due to above Severe pulmonary hypertension --Chest CT:Redemonstration of innumerable pulmonary nodules which are nonspecific but may represent sarcoidosis, pneumonitis, or other chronic infectious/inflammatory process. No superimposed pneumonia is definitely seen. Bilateral pleural effusions have slightly increased from prior exam. --ECHO: Left ventricle is mildly dilated. Mild concentric LVH. 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 Left ventricle systolic function is severely reduced. EF 20 -25 %. Mild mitral, tricuspid regurgitation. Right ventricular systolic pressure is severely elevated> 60 mmHg. (ECHO unchanged from prior) Appreciate cardiology input Monitor I's and O's, daily weight, volume status Poor prognosis Hold IV Bumex as renal function worsening Saturating well on 2 L supplemental oxygen Metoprolol succinate dose adjusted per cardiology Subjectively feels less dyspnea today Continue to hold diuretics today Monitor volume status closely Right foot Wound/Osteomyelitis - MRI R foot w/o contrast obtained as outpt reviewed - showing early osteo at the 5th metatarsal head --S/P Right Foot Incision and Drainage to Bone by on 03/01/2024 -Wound cultures pending Empirically on Rocephin, Dapto Appreciate podiatry input Continue wound care Will consider ID evaluation when appropriate Continue wound care Will titrate antibiotics based on cultures Mild leukocytosis noted Recent Rhino Infection Remains positive on bio fire since last discharge Monitor HLD Hold statin while on Dapto TAYA on CKD IV Baseline Cr ~2 Expected from IV diuretics Monitor renal function Avoid nephrotoxic agents as able Cr:2.2 today Mood Disorder Continue home medication DVT Px: Heparin SQ CODE STATUS: Full code Admission and Anticipated Discharge Date Admission Date: February 27, 2024 Subjective Patient is seen and examined at bedside Subjectively feels dyspnea better today when compared to yesterday Feels tired today Denies any significant foot pain at surgical site Minimal cough Denies any chest pain, dizziness, nausea, vomiting, abdominal pain Review of Systems Review of Systems: All systems reviewed & are unremarkable except as noted in Subjective Physical Exam Physical Exam: Physical Exam: Vitals signs as noted above General Appearance: Thin, frail, elderly, no apparent distress Head: normocephalic, Atraumatic Eyes: normal inspection, EOMI Neck: supple, Trachea midline Respiratory/Chest: Decreased breath sounds, CTA, No accessory muscle use Cardiovascular: S1, S2, + murmur Abdomen/GI:Soft, Non tender, Bowel sounds present,+ abdominal hernia Extremities/Musculoskeletal:normal inspection, +edema, R foot in dressing Neurologic/Psych:AAOX3, grossly no focal neurological deficits Skin: normal color, warm, erythematous rash multiple areas Results & Data Results & Data Vital Signs (Past 12 Hours) Vital Signs Temp Pulse Pulse Pulse Resp BP Pulse Ox 03/02/24 15:52 36.3 C L 76 19 128/75 98 03/02/24 14:54 75 16 98 03/02/24 11:03 81 16 98 03/02/24 10:58 36.3 C L 81 19 122/78 99 03/02/24 09:46 81 03/02/24 09:15 85 03/02/24 08:07 36.3 C L 85 22 132/83 98 03/02/24 07:30 89 03/02/24 07:30 03/02/24 07:05 72 16 98 O2 Del Method O2 Flow Rate 03/02/24 15:52 Nasal Cannula 3 03/02/24 14:54 Nasal Cannula 2 03/02/24 11:03 Nasal Cannula 2 03/02/24 10:58 Nasal Cannula 3 03/02/24 09:46 03/02/24 09:15 03/02/24 08:07 Nasal Cannula 3 03/02/24 07:30 03/02/24 07:30 Nasal Cannula 2 03/02/24 07:05 Nasal Cannula 2 Laboratory Results [facility] 03/02/24 05:48 Sodium 137 Potassium 3.5 Chloride 96 L Carbon Dioxide 32 BUN 70 H Creatinine 2.25 H Glucose 120 H Calcium 9.2
[2024-03-03 06:24] LABS: Hematocrit (blood only) 29.9 % (42.0-52.0); Hemoglobin 9.7 g/dl (14.0-18.0); Mean Corpuscular Hemoglobin 27.4 pg (25.0-34.0); Mean Corpuscular Hgb Conc 32.4 g/dL (32.0-36.0); Mean Corpuscular Volume 84.5 fL (80.0-100.0); Mean Platelet Volume 9.9 fL (9.4-12.4); Platelet Count 316 K/uL (130-400); RDW Coefficient of Variation 15.2 % (11.5-14.5); RDW Standard Deviation 46.4 fL (36.4-46.3); Red Blood Count 3.54 M/uL (4.70-6.10); White Blood Count 9.13 K/ul (4.8-10.8)
[2024-03-03 06:55] LABS: BUN Creatinine Ratio 32.3 (10-20); Creatinine Clr Calc Pharmacy 26.6 ml/min; Est GFR (African American) 29.4 ml/min; Est GFR (Non-African American) 25.4 ml/min; Potassium 3.7 mmol/L (3.5-5.1)
--- NOTE | 2024-03-03 10:09 | Podiatry Progress Note ---
Date of Service March 03, 2024 Assessment & Plan (1) Acute osteomyelitis of right foot: (2) Ulcer of right foot with bone involvement without evidence of necrosis: Plan Patient examined and evaluated bedside. - Foot cleaned and redressed with Xeroform gauze, 4 x 4 gauze, Kerlix, and an Wilbur wrap. - Sutures remain intact and should be left for approximately 2 weeks. Should keep the dressing clean and dry until that point. - Should ambulate only in the surgical shoe until sutures are removed. - From a foot perspective, he can be discharged and follow-up outpatient for this continued care of his metatarsal head resection. Otherwise, as long as he is here for his pulmonary concerns, we will continue to follow him sporadically on this admission. Admission and Anticipated Discharge Date Admission Date: February 27, 2024 Subjective Patient seen at bedside. Doing well 2 days status post right foot fifth metatarsal head resection. No new concerns or complaints. Is still being evaluated for his lung pathology, but states his foot is overall improved since surgery. Review of Systems Constitutional: + fatigue, + malaise and + weight gain Eyes: no problem reported Ear, Nose, Mouth, Throat: no problem reported Respiratory: + cough, + dyspnea and + dyspnea on exer tion Cardiovascular: + dyspnea and + edema (right foot) Gastrointestinal: no problem reported Genitourinary: no problem reported Musculoskeletal: + swelling (right foot) Integumentary: + wounds (right lateral forefoot) Neurologic: no problem reported Psychiatric: no problem reported Endocrine: no problem reported Hematologic / Lymphatic: no problem reported Allergy / Immunological: no problem reported Physical Exam Physical Exam: Sutures are intact to the right foot fifth metatarsal head resection site. No local signs of infection are noted. No early dehiscence. No palpable fluctuance or purulent drainage noted. Constitutional: WD/WN, vitals as above Eyes: PERRL, conjunctivae normal, anicteric sclerae ENMT: external ear and nose normal, oropharynx normal Neck: trachea midline, no thyromegaly Respiratory: normal respiratory effort, lungs clear to auscultation Cardiovascular: Extremities: normal capillary refill and + pedal edema (right foot) Right pedal pulses (PT and DP) are non palpable (0/4). Chest (Breasts): normal inspection/palpation of breasts Gastrointestinal (Abdomen): normal bowel sounds, soft, nontender, no hepatosplenomegaly Musculoskeletal: Extremities: + limited ROM of extremities and + foot abnormality Skin: + ulcer (ulcer noted to right lateral 5t h met head with probe to bone. ) and + nails dystrophic right foot lateral 5th metatarsal head non healing ulcer noted. Periwound macerated tissue and surrounding erythema. No ascending cellulitis. Serous drainage noted. Base of wound consists of fibrous tissue. Wound probes to 5th metatarsal head. No tracking or tunneling of the wound is appreciated. Neurologic: Motor/Sensory: + sensory deficit Psychiatric: A+Ox3, euthymic affect Results & Data Results & Data Vital Signs (Past 12 Hours) Vital Signs Temp Pulse Pulse Pulse Resp BP BP 03/03/24 08:43 81 03/03/24 07:52 36.4 C L 86 22 115/69 03/03/24 07:22 79 16 03/03/24 07:15 83 03/03/24 07:15 03/03/24 04:29 36.6 C 76 20 131/78 03/02/24 23:59 36.5 C 73 18 125/78 Pulse Ox O2 Del Method O2 Flow Rate 03/03/24 08:43 03/03/24 07:52 97 Nasal Cannula 3 03/03/24 07:22 100 Nasal Cannula 3 03/03/24 07:15 03/03/24 07:15 Nasal Cannula 3 03/03/24 04:29 98 Nasal Cannula 3 03/02/24 23:59 98 Nasal Cannula 3
--- NOTE | 2024-03-03 15:19 | Hospitalist Progress Note ---
Date of Service March 03, 2024 Assessment & Plan (1) Acute on chronic HFrEF (heart failure with reduced ejection fraction): (2) Dyspnea on exertion: (3) Severe pulmonary hypertension: (4) Restrictive lung disease: (5) HTN (hypertension): (6) Hypoxia: (7) Nocturnal hypoxemia: (8) Stage 3b chronic kidney disease (CKD): Plan: Acute on chronic systolic CHF exacerbation Acute on chronic hypoxic respiratory failure Chronic oxygen dependency--on 2 L at bedtime Fluid overload due to above Severe pulmonary hypertension --Chest CT:Redemonstration of innumerable pulmonary nodules which are nonspecific but may represent sarcoidosis, pneumonitis, or other chronic infectious/inflammatory process. No superimposed pneumonia is definitely seen. Bilateral pleural effusions have slightly increased from prior exam. --ECHO: Left ventricle is mildly dilated. Mild concentric LVH. 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 Left ventricle systolic function is severely reduced. EF 20 -25 %. Mild mitral, tricuspid regurgitation. Right ventricular systolic pressure is severely elevated> 60 mmHg. (ECHO unchanged from prior) Appreciate cardiology input Monitor I's and O's, daily weight, volume status Poor prognosis Hold IV Bumex as renal function worsening Saturating well on 2 L supplemental oxygen Metoprolol succinate dose adjusted per cardiology Resume diuretics as able Cardiology following Right foot Wound/Osteomyelitis - MRI R foot w/o contrast obtained as outpt reviewed - showing early osteo at the 5th metatarsal head --S/P Right Foot Incision and Drainage to Bone by on 03/01/2024 -Wound cultures pending Empirically on Rocephin, Dapto>>Rocephin only Appreciate podiatry input Continue wound care Cultures remain negative Leukocytosis resolved Consulted ID for recommendations Recent Rhino Infection Remains positive on bio fire since last discharge Monitor HLD Hold statin while on Dapto TAYA on CKD IV Baseline Cr ~2 Expected from IV diuretics Monitor renal function Avoid nephrotoxic agents as able Cr:2.2 today Mood Disorder Continue home medication DVT Px: Heparin SQ CODE STATUS: Full code Admission and Anticipated Discharge Date Admission Date: February 27, 2024 Subjective Patient is seen and examined at bedside Dyspnea improved same as yesterday per patient Had foot surgical dressing changed today No other complaints today Saturating well on 2 L supplemental oxygen Denies any chest pain, dizziness, nausea, vomiting, abdominal pain Review of Systems Review of Systems: All systems reviewed & are unremarkable except as noted in Subjective Physical Exam Physical Exam: Physical Exam: Vitals signs as noted above General Appearance: Thin, frail, elderly, no apparent distress Head: normocephalic, Atraumatic Eyes: normal inspection, EOMI Neck: supple, Trachea midline Respiratory/Chest: Decreased breath sounds, CTA, No accessory muscle use Cardiovascular: S1, S2, + murmur Abdomen/GI:Soft, Non tender, Bowel sounds present,+ abdominal hernia Extremities/Musculoskeletal:normal inspection, +edema, R foot in dressing Neurologic/Psych:AAOX3, grossly no focal neurological deficits Skin: normal color, warm, erythematous rash multiple areas Results & Data Results & Data Vital Signs (Past 12 Hours) Vital Signs Temp Pulse Pulse Pulse Resp BP BP 03/03/24 15:12 82 18 03/03/24 11:09 36.4 C L 78 20 125/77 03/03/24 10:50 77 16 03/03/24 08:43 81 03/03/24 07:52 36.4 C L 86 22 115/69 03/03/24 07:22 79 16 03/03/24 07:15 83 03/03/24 07:15 03/03/24 04:29 36.6 C 76 20 131/78 Pulse Ox O2 Del Method O2 Flow Rate 03/03/24 15:12 97 Nasal Cannula 2 03/03/24 11:09 98 Nasal Cannula 3 03/03/24 10:50 98 Nasal Cannula 2 03/03/24 08:43 03/03/24 07:52 97 Nasal Cannula 3 03/03/24 07:22 100 Nasal Cannula 3 03/03/24 07:15 03/03/24 07:15 Nasal Cannula 3 03/03/24 04:29 98 Nasal Cannula 3
[2024-03-03] MEDS: ACETAMINOPHEN 325 MG TAB PO PRN (23:15)
[2024-03-04 07:56] LABS: Hematocrit (blood only) 29.9 % (42.0-52.0); Hemoglobin 9.8 g/dl (14.0-18.0); Mean Corpuscular Hemoglobin 27.7 pg (25.0-34.0); Mean Corpuscular Hgb Conc 32.8 g/dL (32.0-36.0); Mean Corpuscular Volume 84.5 fL (80.0-100.0); Mean Platelet Volume 9.9 fL (9.4-12.4); Platelet Count 315 K/uL (130-400); RDW Coefficient of Variation 15.1 % (11.5-14.5); RDW Standard Deviation 46.9 fL (36.4-46.3); Red Blood Count 3.54 M/uL (4.70-6.10); White Blood Count 9.78 K/ul (4.8-10.8)
[2024-03-04 08:03] LABS: BUN Creatinine Ratio 31.5 (10-20); Calcium 9.2 mg/dl (8.6-10.3); Creatinine Clr Calc Pharmacy 23.1 ml/min; Est GFR (African American) 24.8 ml/min; Est GFR (Non-African American) 21.4 ml/min; Potassium 3.6 mmol/L (3.5-5.1)
--- NOTE | 2024-03-04 10:52 | Nephrology Consultation ---
Date of Consultation March 04, 2024 Assessment & Plan (1) Acute kidney injury superimposed on CKD: nonoliguric stage 1 TAYA on CKD4 baseline creatinine about generally about 2 give or take 0.3. he was 2.3 on 2 checks just prior to admission late last month. Presenting creatinine was 2.2 and ranged from 2.2-2.4 until this morning when it bumped to 2.6. doubt rash/pruritis relate to CKD or to TAYA likely ATN related to infection, to abtx, to diuretics. mild volume overload but acceptable for now; chemistries OK though mild hypokalemia noted. may also be having renal progression w/ recent clinical events (markedly worse cardiac function past 6 mos) -hold bumex today; look to resume tomorrow ? lower and more frequent dose -ordered UA -daily bmp -cont 1.5 L FR and < 2 gm daily Na diet -gave 40 mEq K x 1 dose -stirct I/O -ensure optimized from pulm standpoint History of Present Illness Reason for Consultation: TAYA on CKD Requesting Physician: Dr. García Attending Physician: Richie García MD History of Present Illness 88-year-old male whom I am asked to evaluate for TAYA on CKD was admitted here February 26 with acute on chronic systolic heart failure exacerbation and acute respiratory failure after failing attempts to intensify outpatient diuretics. 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 Follows annually w/ pulmonary > last evaluated Oct 2023; dyspnea at that time attributed to cardiopulm process, though lung imaging stable x 2-5 years. His baseline creatinine is labile but is generally about 2 give or take 0.3. Most recently he was 2.3 on 2 checks just prior to admission late last month. Presenting creatinine was 2.2 and ranged from 2.2-2.4 until this morning when it bumped to 2.6. Diuretic dosing this admission has been as follows: has 1 mg IV 02/26 bumex; then additional dose both 02/26 adn 02/27 1 mg; and late 02/26 0.5 mg x 1; then bumex 1 mg IV tid x 2 doses 02/27, 2 doses 02/28 then held. started ceftriaxone 02/26 and ongoing. had 2 days of vancomycin. also had 2 doses of daptomycin 02/28 and 03/02, renally dosed. He went to the OR on March 01 for incision and drainage of lesion on his right foot. Cultures from that procedure are negative. c/o pruritis from rash on his lower back present per pt and his daughter x mos. chronic sob, feels sob today as he often does. no cough. + orthopnea. no chest pain or palpitations. edema present but not bothering him. no musculoskeletal pain. no new/worrisome voiding sx; no flank pain. Allergies Allergy/AdvReac Type Severity Reaction Status Date / Time trazodone AdvReac Intermediate Hallucinati Verified 03/01/24 06:34 ng Home Medications Medication Instructions Recorded Confirmed Type aspirin 81 mg tablet,delayed 81 mg PO DAILY 05/21/19 02/27/24 History release tamsulosin 0.4 mg capsule 0.4 mg PO AMHS 05/21/19 02/27/24 History multivitamin-ferrous 1 tab PO DAILY 05/22/19 02/27/24 History fumarate-folic acid 18 mg-400 mcg tablet (Centrum Complete) famotidine 20 mg tablet 20 mg PO QAM 03/06/23 02/27/24 History guaifenesin 600 mg tablet, 600 mg PO Q12H PRN Cough 03/06/23 02/27/24 History extended release 12 hr ipratropium bromide 17 2 puff inhalation QID 03/06/23 02/27/24 History mcg/actuation HFA aerosol inhaler (Atrovent HFA) sodium chloride 0.65 % nasal spray 1 spray intranasal UD PRN 03/06/23 02/27/24 History aerosol (Saline Nasal) Congestion fluticasone propionate 50 2 sprays intranasal QAM 09/09/23 02/27/24 History mcg/actuation nasal spray,suspension rosuvastatin 10 mg tablet 10 mg PO HS 09/09/23 02/27/24 History clopidogrel 75 mg tablet 75 mg PO QAM #30 tabs 09/12/23 02/27/24 Rx isosorbide mononitrate 60 mg 60 mg PO QAM #30 tabs 09/12/23 02/27/24 Rx tablet,extended release 24 hr metoprolol succinate 25 mg 25 mg PO QAM #30 tabs 09/12/23 02/27/24 Rx tablet,extended release 24 hr nitroglycerin 0.4 mg sublingual 0.4 mg sublingual Q5M PRN chest 09/12/23 02/27/24 Rx tablet (Nitrostat) pain #30 tabs allopurinol 100 mg tablet 100 mg PO QAM 01/30/24 02/27/24 History torsemide 20 mg tablet 80 mg (4 x 20 mg) PO QAM 30 days 02/07/24 02/27/24 Rx #120 tabs citalopram 20 mg tablet 20 mg PO QAM 02/27/24 02/27/24 History hydralazine 10 mg tablet 10 mg PO AMHS 02/27/24 02/27/24 History mometasone 0.1 % topical ointment 1 applic topical DAILY 02/27/24 02/27/24 History pantoprazole 40 mg tablet,delayed 40 mg PO QAM 02/27/24 02/27/24 History release Patient History Medical History Acute on chronic renal failure Elevated troponin I level Chest pain Pulmonary edema Prostate cancer (11/03/14) "Rising PSA to 7.46 Status post ultrasound-guided biopsies revealing adenocarcinoma [place] 4+3, biopsy stage T2c Initiation of hormone suppression prior to prostate seed implant, short course Status post prostate seed implant 02/03/2015 with cesium 131 received 8500 cGy 50 seeds placed Status post completion of IMRT/IGRT 04/28/2015 received 4500 cGy " On 05/26/15 14:44 Shira Goldberg wrote "Rising PSA to 7.46 Status post ultrasound-guided biopsies revealing adenocarcinoma [place] 4+3, biopsy stage T2c Initiation of hormone suppression prior to prostate seed implant Status post prostate seed implant 02/03/2015 with cesium 131 received 8500 cGy 50 seeds placed Status post completion of IMRT/IGRT 04/28/2015 received 4500 cGy " On 05/01/15 12:43 Sandra Marquez wrote "Rising PSA to 7.46 Status post ultrasound-guided biopsies revealing adenocarcinoma [place] 4+3, biopsy stage T2c Initiation of hormone suppression Status post prostate seed implant 02/03/2015 with cesium 131 received 8500 cGy 50 seeds placed Status post completion of IMRT/IGRT 04/28/2015 received 4500 cGy " On 03/17/15 15:55 Sandra Marquez wrote "Rising PSA to 7.46 Status post ultrasound-guided biopsies revealing adenocarcinoma [place] 4+3, biopsy stage T2c Initiation of hormone suppression Status post prostate seed implant 02/03/2015 with cesium 131 received 8500 cGy 50 seeds placed Now for completion of IMRT/IGRT" Surgical History History of appendectomy H/O shoulder surgery Family History Other Heart disease Social History Smoking Status: Never smoker Tobacco Type: Cigarettes Second Hand Exposure: No; Do You Dip or Chew Tobacco: No; Hx Alcohol Use: No Hx Substance Use: No Preferred Language: Japanese Communication Ability: Effective Community Health Nurse Required: No Beliefs That Will Affect Care: None marital status: / Current Living Situation: Alone Feels Safe at Home: Yes Safety Concerns: Feels Safe At This Time Assistive Devices: Cane, Denture - Upper, Denture - Lower, Glasses and Oxygen - Continuous Review of Systems 2 Review of Systems: All systems reviewed & are unremarkable except as noted in HPI & below Physical Exam 2 Constitutional: well developed, + frail appearing and comfortable; no acute distress Eyes: EOM intact bilaterally ENMT: Ears: no external ear abnormality Nose: no external nose abnormality Mouth: + dry oral mucous membranes Neck: no nuchal rigidity Respiratory: normal respiratory effort (on 02NC) Auscultation: + diminished lung sounds (markedly) Cardiovascular: Rate/Rhythm: regular rate and regular rhythm Extremities: + edema (trace) Gastrointestinal (Abdomen): Inspection/Auscultation: normal bowel sounds P ercussion/Palpation: abdomen soft; abdomen nontender Musculoskeletal: Extremities: strength 5/5 throughout Skin: no rashes, warm and dry Neurologic: kang, fluent speech, no tremor Psychiatric: Orientation: alert and oriented x 3 Insight: + limited insight Results & Data Vital Signs (Past 12 Hours) Vital Signs Temp Pulse Pulse Resp BP Pulse Ox O2 Del Method 03/04/24 08:30 Nasal Cannula 03/04/24 08:02 36.3 C L 76 19 127/70 99 Nasal Cannula 03/04/24 07:28 86 16 100 Nasal Cannula 03/04/24 04:06 36.4 C L 71 19 128/68 98 Nasal Cannula 03/03/24 23:56 36.4 C L 85 19 127/73 96 Nasal Cannula O2 Flow Rate 03/04/24 08:30 2 03/04/24 08:02 03/04/24 07:28 3 03/04/24 04:06 3 03/03/24 23:56 3 Laboratory Results 03/04/24 07:11 03/04/24 07:11
[2024-03-04] MEDS: POTASSIUM CHLORIDE CRTAB 20 MEQ TABCR PO ONE (13:52)
[2024-03-04 15:08] LABS: Appearance Urine Clear (Clear); Bacteria Urine Automated None Seen (None Seen); Bilirubin Urine Negative (Negative); Blood Urine Negative (Negative); Color Urine Yellow; Epithelial Cell Urine Auto 0-2 /hpf (0-2); Glucose Urine UA Negative (Negative); Ketones Urine Negative (Negative); Leukocyte Esterase Urine Negative (Negative); Nitrite Urine Negative (Negative); Protein Urine Trace (Negative); RBC Urine Automated 0-2 /hpf (0-2); Specific Gravity Urine 1.018 (1.000-1.030); Urobilinogen Urine Negative (Negative); WBC Urine Automated 0-5 /hpf (0-5)
--- NOTE | 2024-03-04 16:26 | Infectious Disease Consult ---
Date of Service March 04, 2024 Telehealth Information I performed this visit using a real-time telehealth connection between my location and the patients location ([facility]). After connecting through interactive tele-video, patient was identified by name and date of and/or wristband check.Patient (or authorized healthcare technical sales representative) was informed that this was a telemedicine visit and it was being conducted confidentially over secure lines. My office door was closed and no one else was present in the room with me.Patient (or authorized healthcare technical sales representative) provided consent to proceed with the visit, expressed an understanding of privacy and security of the telemedicine visit, and gave permission to have a hospital technical sales representative in the room in order to assist with the visit and to conduct portions of the visit, as needed. I informed the patient (or authorized healthcare technical sales representative) that I reviewed their record and presented the opportunity for them to ask any questions regarding the visit today. The patient agreed to participate. Assessment & Plan (1) Acute osteomyelitis of right foot: (2) Status post incision and drainage: (3) Acute on chronic HFrEF (heart failure with reduced ejection fraction): (4) Acute kidney injury superimposed on CKD: Plan - The intraoperative cultures were finalized without any growth. It might have become sterile after few days of antibiotics before the surgery. Given that no MRSA and no Pseudomonas identified in any of the superficial or intraoperative cultures, I think IV ceftriaxone 2 g daily is a good option. - Given the evidence of osteomyelitis intraoperatively, I would recommend treating with IV ceftriaxone 2 g daily for a total duration of 6 weeks (counting to start from the day of surgery). Anticipated end date will be April 12, 2024. - Thank you for consulting Infectious Disease. We will sign off for now. History of Present Illness History of Present Illness Mr. Elliott is an 88-year-old man with medical history of congestive heart failure (with reduced ejection fraction of around 20%), HTN, severe pulmonary hypertension, hyperlipidemia, CKD stage 3 b and restrictive lung disease who was admitted to [facility] on 02/26 because of heart failure exacerbation. While in the hospital, he was noticed to have right 5th toe ulcer and was seen by the podiatry team who were concerned about right 5th metatarsal osteomyelitis. He was eventually taken for an incision and drainage on 03/01/2024 with dissection of the 5th metatarsal head. All intraoperative cultures has been negative to date and finalized without any growth. Id team was consulted for further recommendations and to help guide antibiotic treatment . Allergies Allergy/AdvReac Type Severity Reaction Status Date / Time trazodone AdvReac Intermediate Hallucinati Verified 03/01/24 06:34 ng Home Medications Medication Instructions Recorded Confirmed Type aspirin 81 mg tablet,delayed 81 mg PO DAILY 05/21/19 02/27/24 History release tamsulosin 0.4 mg capsule 0.4 mg PO AMHS 05/21/19 02/27/24 History multivitamin-ferrous 1 tab PO DAILY 05/22/19 02/27/24 History fumarate-folic acid 18 mg-400 mcg tablet (Centrum Complete) famotidine 20 mg tablet 20 mg PO QAM 03/06/23 02/27/24 History guaifenesin 600 mg tablet, 600 mg PO Q12H PRN Cough 03/06/23 02/27/24 History extended release 12 hr ipratropium bromide 17 2 puff inhalation QID 03/06/23 02/27/24 History mcg/actuation HFA aerosol inhaler (Atrovent HFA) sodium chloride 0.65 % nasal spray 1 spray intranasal UD PRN 03/06/23 02/27/24 History aerosol (Saline Nasal) Congestion fluticasone propionate 50 2 sprays intranasal QAM 09/09/23 02/27/24 History mcg/actuation nasal spray,suspension rosuvastatin 10 mg tablet 10 mg PO HS 09/09/23 02/27/24 History clopidogrel 75 mg tablet 75 mg PO QAM #30 tabs 09/12/23 02/27/24 Rx isosorbide mononitrate 60 mg 60 mg PO QAM #30 tabs 09/12/23 02/27/24 Rx tablet,extended release 24 hr metoprolol succinate 25 mg 25 mg PO QAM #30 tabs 09/12/23 02/27/24 Rx tablet,extended release 24 hr nitroglycerin 0.4 mg sublingual 0.4 mg sublingual Q5M PRN chest 09/12/23 02/27/24 Rx tablet (Nitrostat) pain #30 tabs allopurinol 100 mg tablet 100 mg PO QAM 01/30/24 02/27/24 History torsemide 20 mg tablet 80 mg (4 x 20 mg) PO QAM 30 days 02/07/24 02/27/24 Rx #120 tabs citalopram 20 mg tablet 20 mg PO QAM 02/27/24 02/27/24 History hydralazine 10 mg tablet 10 mg PO AMHS 02/27/24 02/27/24 History mometasone 0.1 % topical ointment 1 applic topical DAILY 02/27/24 02/27/24 History pantoprazole 40 mg tablet,delayed 40 mg PO QAM 02/27/24 02/27/24 History release Patient History Medical History Acute on chronic renal failure Elevated troponin I level Chest pain Pulmonary edema Prostate cancer (11/03/14) "Rising PSA to 7.46 Status post ultrasound-guided biopsies revealing adenocarcinoma [place] 4+3, biopsy stage T2c Initiation of hormone suppression prior to prostate seed implant, short course Status post prostate seed implant 02/03/2015 with cesium 131 received 8500 cGy 50 seeds placed Status post completion of IMRT/IGRT 04/28/2015 received 4500 cGy " On 05/26/15 14:44 Shira Goldberg wrote "Rising PSA to 7.46 Status post ultrasound-guided biopsies revealing adenocarcinoma [place] 4+3, biopsy stage T2c Initiation of hormone suppression prior to prostate seed implant Status post prostate seed implant 02/03/2015 with cesium 131 received 8500 cGy 50 seeds placed Status post completion of IMRT/IGRT 04/28/2015 received 4500 cGy " On 05/01/15 12:43 Sandra Marquez wrote "Rising PSA to 7.46 Status post ultrasound-guided biopsies revealing adenocarcinoma [place] 4+3, biopsy stage T2c Initiation of hormone suppression Status post prostate seed implant 02/03/2015 with cesium 131 received 8500 cGy 50 seeds placed Status post completion of IMRT/IGRT 04/28/2015 received 4500 cGy " On 03/17/15 15:55 Sandra Marquez wrote "Rising PSA to 7.46 Status post ultrasound-guided biopsies revealing adenocarcinoma [place] 4+3, biopsy stage T2c Initiation of hormone suppression Status post prostate seed implant 02/03/2015 with cesium 131 received 8500 cGy 50 seeds placed Now for completion of IMRT/IGRT" Surgical History History of appendectomy H/O shoulder surgery Family History Other Heart disease Social History Smoking Status: Never smoker Tobacco Type: Cigarettes Second Hand Exposure: No; Do You Dip or Chew Tobacco: No; Hx Alcohol Use: No Hx Substance Use: No Preferred Language: Filipino Communication Ability: Effective Community Nurse Required: No Beliefs That Will Affect Care: None marital status: / Current Living Situation: Alone Feels Safe at Home: Yes Safety Concerns: Feels Safe At This Time Assistive Devices: Cane, Denture - Upper, Denture - Lower, Glasses and Oxygen - Continuous Review of Systems Constitutional: Fatigue, but no fever or chills Cardiovascular: no chest pain, or palpitations Respiratory: Shortness of breath, but no cough Gastrointestinal: No nausea, vomiting, diarrhea or abdominal pain : No dysuria or hesitancy, no urinary discharge Physical Exam Couldn't be performed as this encounter was conducted via telemed. Results & Data Vital Signs (Past 12 Hours) Vital Signs Temp Pulse Pulse Resp BP BP Pulse Ox 03/04/24 15:46 36.9 C 78 19 138/82 96 03/04/24 15:40 85 16 97 03/04/24 12:37 36.7 C 77 19 137/61 96 03/04/24 10:59 74 18 98 03/04/24 08:30 03/04/24 08:02 36.3 C L 76 19 127/70 99 03/04/24 07:28 86 16 100 O2 Del Method O2 Flow Rate 03/04/24 15:46 Nasal Cannula 03/04/24 15:40 Nasal Cannula 2 03/04/24 12:37 Nasal Cannula 03/04/24 10:59 Nasal Cannula 2 03/04/24 08:30 Nasal Cannula 2 03/04/24 08:02 Nasal Cannula 03/04/24 07:28 Nasal Cannula 3 Diagnostic Findings 11/07: Superficial wound swab of the right foot grew Corynebacterium species 12/21: Superficial wound swab of the right foot grew low counts of mixed skin microbiology data 01/18: Superficial wound culture of the right foot wound grew MSSA 02/26: Superficial swab of the right foot ulcer grew low counts mixed probable skin microbiology 03/01: Intraoperative bone culture from the right 5th toe with no growth (finali zed)
--- NOTE | 2024-03-04 17:27 | Hospitalist Progress Note ---
Date of Service March 04, 2024 Assessment & Plan (1) Acute on chronic HFrEF (heart failure with reduced ejection fraction): (2) Dyspnea on exertion: (3) Severe pulmonary hypertension: (4) Restrictive lung disease: (5) HTN (hypertension): (6) Hypoxia: (7) Nocturnal hypoxemia: (8) Stage 3b chronic kidney disease (CKD): Plan: Acute on chronic systolic CHF exacerbation Acute on chronic hypoxic respiratory failure Chronic oxygen dependency--on 2 L at bedtime Fluid overload due to above Severe pulmonary hypertension --Chest CT:Redemonstration of innumerable pulmonary nodules which are nonspecific but may represent sarcoidosis, pneumonitis, or other chronic infectious/inflammatory process. No superimposed pneumonia is definitely seen. Bilateral pleural effusions have slightly increased from prior exam. --ECHO: Left ventricle is mildly dilated. Mild concentric LVH. 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 Left ventricle systolic function is severely reduced. EF 20 -25 %. Mild mitral, tricuspid regurgitation. Right ventricular systolic pressure is severely elevated> 60 mmHg. (ECHO unchanged from prior) Appreciate cardiology input Monitor I's and O's, daily weight, fluid restriction Poor prognosis Hold IV Bumex as renal function worsening Saturating well on 2 L supplemental oxygen Metoprolol succinate dose adjusted per cardiology Cardiology following Consider to resume diuretics likely tomorrow Monitor volume status closely Right foot Wound/Osteomyelitis - MRI R foot w/o contrast obtained as outpt reviewed - showing early osteo at the 5th metatarsal head --S/P Right Foot Incision and Drainage to Bone by on 03/01/2024 -Wound cultures pending Empirically on Rocephin, Dapto>>Rocephin only Appreciate podiatry input Continue wound care Cultures remain negative Leukocytosis resolved Appreciate ID input Will need PICC line, prolonged course of IV antibiotics per ID recommendations Recent Rhino Infection Remains positive on bio fire since last discharge Monitor HLD Hold statin while on Dapto TAYA on CKD IV Baseline Cr ~2 Expected from IV diuretics/ATN Monitor renal function Avoid nephrotoxic agents as able Cr:2.5 today Mood Disorder Continue home medication DVT Px: Heparin SQ CODE STATUS: Full code Admission and Anticipated Discharge Date Admission Date: February 27, 2024 Subjective Patient is seen and examined at bedside Reports slightly worsened dyspnea associated with orthopnea Poor sleep overnight Also reports minimal cough No other complaints Noted rising creatinine levels today Denies any chest pain, dizziness, nausea, vomiting, abdominal pain Review of Systems Review of Systems: All systems reviewed & are unremarkable except as noted in Subjective Physical Exam Physical Exam: Physical Exam: Vitals signs as noted above General Appearance: Thin, frail, elderly, no apparent distress Head: normocephalic, Atraumatic Eyes: normal inspection, EOMI Neck: supple, Trachea midline Respiratory/Chest: Decreased breath sounds, CTA, No accessory muscle use Cardiovascular: S1, S2, + murmur Abdomen/GI:Soft, Non tender, Bowel sounds present,+ abdominal hernia Extremities/Musculoskeletal:normal inspection, +edema, R foot in dressing Neurologic/Psych:AAOX3, grossly no focal neurological deficits Skin: normal color, warm, erythematous rash multiple areas Results & Data Results & Data Vital Signs (Past 12 Hours) Vital Signs Temp Pulse Pulse Resp BP BP Pulse Ox 03/04/24 15:46 36.9 C 78 19 138/82 96 03/04/24 15:40 85 16 97 03/04/24 12:37 36.7 C 77 19 137/61 96 03/04/24 10:59 74 18 98 03/04/24 08:30 03/04/24 08:02 36.3 C L 76 19 127/70 99 03/04/24 07:28 86 16 100 O2 Del Method O2 Flow Rate 03/04/24 15:46 Nasal Cannula 03/04/24 15:40 Nasal Cannula 2 03/04/24 12:37 Nasal Cannula 03/04/24 10:59 Nasal Cannula 2 03/04/24 08:30 Nasal Cannula 2 03/04/24 08:02 Nasal Cannula 03/04/24 07:28 Nasal Cannula 3 Laboratory Results Short CBC 03/04/24 Range/Units 07:11 WBC 9.78 (4.8-10.8) K/ul Hgb 9.8 L (14.0-18.0) g/dl Hct 29.9 L (42.0-52.0) % Plt Count 315 (130-400) K/uL BMP 03/04/24 07:11 Sodium 135 L Potassium 3.6 Chloride 95 L Carbon Dioxide 31 BUN 81 H Creatinine 2.57 H D Glucose 110 H Calcium 9.2 Urine 03/04/24 Range/Units Unknown Urine Color Yellow Urine Appearance Clear (Clear) Urine pH 5.0 (4.5-7.5) Ur Specific [place] 1.018 (1.000-1.030) Urine Protein Trace H (Negative) Urine Glucose (UA) Negative (Negative)
[2024-03-04] MEDS: CALCIUM CARBONATE 500 MG CHEWABLE TAB PO STA ×2 (19:47→23:06)
[2024-03-04] MEDS ORDERED: CALCIUM CARBONATE 500 MG CHEWABLE TAB PO PRN (22:54)
[2024-03-05 09:25] LABS: BUN Creatinine Ratio 33.3 (10-20); Calcium 9.4 mg/dl (8.6-10.3); Est GFR (African American) 27.3 ml/min; Est GFR (Non-African American) 23.6 ml/min; Potassium 3.9 mmol/L (3.5-5.1)
--- NOTE | 2024-03-05 15:44 | Hospitalist Progress Note ---
Date of Service March 05, 2024 Assessment & Plan (1) Acute on chronic HFrEF (heart failure with reduced ejection fraction): (2) Dyspnea on exertion: (3) Severe pulmonary hypertension: (4) Restrictive lung disease: (5) HTN (hypertension): (6) Hypoxia: (7) Nocturnal hypoxemia: (8) Stage 3b chronic kidney disease (CKD): Plan: Acute on chronic systolic CHF exacerbation Acute on chronic hypoxic respiratory failure Chronic oxygen dependency--on 2 L at bedtime Fluid overload due to above Severe pulmonary hypertension --Chest CT:Redemonstration of innumerable pulmonary nodules which are nonspecific but may represent sarcoidosis, pneumonitis, or other chronic infectious/inflammatory process. No superimposed pneumonia is definitely seen. Bilateral pleural effusions have slightly increased from prior exam. --ECHO: Left ventricle is mildly dilated. Mild concentric LVH. 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 Left ventricle systolic function is severely reduced. EF 20 -25 %. Mild mitral, tricuspid regurgitation. Right ventricular systolic pressure is severely elevated> 60 mmHg. (ECHO unchanged from prior) Appreciate cardiology input Monitor I's and O's, daily weight, fluid restriction Held IV Bumex as renal function worsening Saturating well on 2 L supplemental oxygen Metoprolol succinate dose adjusted per cardiology Monitor volume status closely Diuresis as per cardiology/nephrology Cr levels better today Poor prognosis Right foot Wound/Osteomyelitis - MRI R foot w/o contrast obtained as outpt reviewed - showing early osteo at the 5th metatarsal head --S/P Right Foot Incision and Drainage to Bone by on 03/01/2024 -Wound cultures preliminary--probable skin chela Empirically on Rocephin, Dapto>>Rocephin only Appreciate podiatry input Continue wound care Cultures remain negative Leukocytosis resolved Appreciate ID input Will need PICC line, prolonged course of IV antibiotics per ID recommendations Continue current management Recent Rhino Infection Remains positive on bio fire since last discharge Monitor HLD Hold statin while on Dapto TAYA on CKD IV Baseline Cr ~2 Expected from IV diuretics/ATN Monitor renal function Avoid nephrotoxic agents as able Cr:2.3 today Mood Disorder Continue home medication DVT Px: Heparin SQ CODE STATUS: Full code May need to involve palliative care if no improvement Admission and Anticipated Discharge Date Admission Date: February 27, 2024 Subjective Patient is seen and examined at bedside Subjectively feels about the same as yesterday Still has dyspnea, orthopnea Creatinine levels better today Denies any chest pain, dizziness, nausea, vomiting, abdominal pain Review of Systems Review of Systems: All systems reviewed & are unremarkable except as noted in Subjective Physical Exam Physical Exam: Physical Exam: Vitals signs as noted above General Appearance: Thin, frail, elderly, no apparent distress Head: normocephalic, Atraumatic Eyes: normal inspection, EOMI Neck: supple, Trachea midline Respiratory/Chest: Decreased breath sounds, basal rales, No accessory muscle use Cardiovascular: S1, S2, + murmur Abdomen/GI:Soft, Non tender, Bowel sounds present,+ abdominal hernia Extremities/Musculoskeletal:normal inspection, +edema, R foot in dressing Neurologic/Psych:AAOX3, grossly no focal neurological deficits Skin: normal color, warm, erythematous rash multiple areas Results & Data Results & Data Vital Signs (Past 12 Hours) Vital Signs Temp Pulse Pulse Resp BP Pulse Ox O2 Del Method 03/05/24 15:28 36.9 C 7 L 77 18 163/74 H 97 Nasal Cannula 03/05/24 15:06 89 17 95 Nasal Cannula 03/05/24 13:15 93 03/05/24 11:39 36.6 C 83 18 135/85 97 Nasal Cannula 03/05/24 11:00 76 03/05/24 10:54 89 18 97 Nasal Cannula 03/05/24 08:00 Nasal Cannula 03/05/24 07:42 36.7 C 91 H 18 120/68 98 Nasal Cannula 03/05/24 07:36 19 94 Room Air, Nasal Cannula O2 Flow Rate 03/05/24 15:28 03/05/24 15:06 2 03/05/24 13:15 3 03/05/24 11:39 03/05/24 11:00 03/05/24 10:54 2 03/05/24 08:00 2 03/05/24 07:42 03/05/24 07:36 2
--- NOTE | 2024-03-05 16:46 | Nephrology Progress Note ---
Date of Service March 05, 2024 Assessment & Plan (1) Acute kidney injury superimposed on CKD: Plan: Slightly improved/stable nonoliguric stage 1 TAYA on CKD4 baseline creatinine about generally about 2 give or take 0.3. he was 2.3 on 2 checks just prior to admission late last month. Presenting creatinine was 2.2 and ranged from 2.2-2.4 until March 04 when it bumped to 2.6; back to 2.4 today. doubt rash/pruritis relate to CKD or to TAYA. Urinalysis is bland except for trace dipstick proteinuria. likely ATN related to infection, to abtx, to diuretics. mild volume overload but acceptable for now; chemistries OK though mild hypokalemia noted. may also be having renal progression w/ recent clinical events (markedly worse cardiac function past 6 mos) -look to resume bumex this PM > 0.5 mg IV bid17 (first dose this PM) and daily K 10 mEq -daily bmp -cont 1.5 L FR and < 2 gm daily Na diet -stirct I/O -ensure optimized from pulm standpoint >>appreciate RN doing bladder scan >> pt was 116 mL on bladder scan and voided 150 spontaneously thereafter Will sign off; care coordinated w/ Dr Drake and w/ RN. Nephrology discharge recommendations Daily basic metabolic panel while in house and at PCP follow-up visit No need for hospital discharge appointment with nephrology; can keep regularly scheduled appointment Resume torsemide and allopurinol at prior outpatient doses on discharge Continue 1.5 L fluid limit and less than 2 g daily sodium diet at discharge Continue daily standing weight with [facility] scale or other log at discharge Admission and Anticipated Discharge Date Admission Date: February 27, 2024 Subjective "I'm miserable; " I can't breathe. frequent BM. does c/o not voiding and abd bloating Review of Systems 2 Review of Systems: All systems reviewed & are unremarkable except as noted in Subjective Physical Exam 2 Constitutional: well developed, + frail appearing and comfortable; no acute distress Eyes: EOM intact bilaterally ENMT: Ears: no external ear abnormality Nose: no external nose abnormality Mouth: + dry oral mucous membranes Neck: no nuchal rigidity Respiratory: normal respiratory effort (on 02NC) Auscultation: + diminished lung sounds (markedly) Cardiovascular: Rate/Rhythm: regular rate and regular rhythm Extremities: + edema (1+) Gastrointestinal (Abdomen): Inspection/Auscultation: normal bowel sounds P ercussion/Palpation: abdomen soft; abdomen nontender Musculoskeletal: Extremities: strength 5/5 throughout Skin: no rashes, warm and dry Psychiatric: Orientation: alert and oriented x 3 Insight: + limited insight Results & Data Vital Signs (Past 12 Hours) Vital Signs Temp Pulse Pulse Resp BP Pulse Ox O2 Del Method 03/05/24 16:00 81 03/05/24 15:28 36.9 C 7 L 77 18 163/74 H 97 Nasal Cannula 03/05/24 15:06 89 17 95 Nasal Cannula 03/05/24 13:15 93 03/05/24 11:39 36.6 C 83 18 135/85 97 Nasal Cannula 03/05/24 11:00 76 03/05/24 10:54 89 18 97 Nasal Cannula 03/05/24 08:00 Nasal Cannula 03/05/24 07:42 36.7 C 91 H 18 120/68 98 Nasal Cannula 03/05/24 07:36 19 94 Room Air, Nasal Cannula O2 Flow Rate 03/05/24 16:00 03/05/24 15:28 03/05/24 15:06 2 03/05/24 13:15 3 03/05/24 11:39 03/05/24 11:00 03/05/24 10:54 2 03/05/24 08:00 2 03/05/24 07:42 03/05/24 07:36 2 Laboratory Results 03/04/24 07:11 03/05/24 08:21
[2024-03-05] MEDS: POTASSIUM CHLORIDE 10 MEQ TABCR PO SCH (19:58)
[2024-03-05] MEDS: BUMETANIDE 0.5 MG in SYRINGE 0 ML IV SCH (20:01)
[2024-03-06 07:21] LABS: Hematocrit (blood only) 29.8 % (42.0-52.0); Hemoglobin 9.8 g/dl (14.0-18.0); Mean Corpuscular Hemoglobin 27.4 pg (25.0-34.0); Mean Corpuscular Hgb Conc 32.9 g/dL (32.0-36.0); Mean Corpuscular Volume 83.2 fL (80.0-100.0); Mean Platelet Volume 9.6 fL (9.4-12.4); Platelet Count 291 K/uL (130-400); RDW Coefficient of Variation 15.3 % (11.5-14.5); RDW Standard Deviation 45.7 fL (36.4-46.3); Red Blood Count 3.58 M/uL (4.70-6.10); White Blood Count 10.05 K/ul (4.8-10.8)
[2024-03-06 07:42] LABS: BUN Creatinine Ratio 33.7 (10-20); Calcium 9.2 mg/dl (8.6-10.3); Creatinine Clr Calc Pharmacy 24.4 ml/min; Est GFR (African American) 26.5 ml/min; Est GFR (Non-African American) 22.9 ml/min; Magnesium 2.3 mg/dl (1.7-2.4); Potassium 4.3 mmol/L (3.5-5.1)
--- NOTE | 2024-03-06 14:07 | Hospitalist Progress Note ---
Date of Service March 06, 2024 Assessment & Plan (1) Acute on chronic HFrEF (heart failure with reduced ejection fraction): (2) Dyspnea on exertion: (3) Severe pulmonary hypertension: (4) Restrictive lung disease: (5) HTN (hypertension): (6) Hypoxia: (7) Nocturnal hypoxemia: (8) Stage 3b chronic kidney disease (CKD): Plan: Acute on chronic systolic CHF exacerbation Acute on chronic hypoxic respiratory failure Chronic oxygen dependency--on 2 L at bedtime Fluid overload due to above Severe pulmonary hypertension --Chest CT:Redemonstration of innumerable pulmonary nodules which are nonspecific but may represent sarcoidosis, pneumonitis, or other chronic infectious/inflammatory process. No superimposed pneumonia is definitely seen. Bilateral pleural effusions have slightly increased from prior exam. --ECHO: Left ventricle is mildly dilated. Mild concentric LVH. 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 Left ventricle systolic function is severely reduced. EF 20 -25 %. Mild mitral, tricuspid regurgitation. Right ventricular systolic pressure is severely elevated> 60 mmHg. (ECHO unchanged from prior) Appreciate cardiology input Monitor I's and O's, daily weight, fluid restriction Held IV Bumex as renal function worsening Saturating well on 2 L supplemental oxygen Metoprolol succinate dose adjusted per cardiology Monitor volume status closely Diuresis as per cardiology/nephrology Cr levels monitored Poor prognosis Right foot Wound/Osteomyelitis - MRI R foot w/o contrast obtained as outpt reviewed - showing early osteo at the 5th metatarsal head --S/P Right Foot Incision and Drainage to Bone by on 03/01/2024 -Wound cultures preliminary--probable skin chela Empirically on Rocephin, Dapto>>Rocephin only Appreciate podiatry input Continue wound care Cultures remain negative Leukocytosis resolved Appreciate ID input Will need PICC line, prolonged course of IV antibiotics per ID recommendations - ceftriaxone 2 g daily for a total duration of 6 weeks (counting to start from the day of surgery). Anticipated end date will be April 12, 2024. Continue current management Recent Rhino Infection Remains positive on bio fire since last discharge Monitor HLD Hold statin while on Dapto TAYA on CKD IV Baseline Cr ~2 Expected from IV diuretics/ATN Monitor renal function Avoid nephrotoxic agents as able Cr:2.4 today Mood Disorder Continue home medication DVT Px: Heparin SQ CODE STATUS: Full code May need to involve palliative care if no improvement Admission and Anticipated Discharge Date Admission Date: February 27, 2024 Subjective Patient seen in follow up of CHF, TAYA on CKD , right foot OM Currently sitting up in chair in NAD, on suppl. O2 Complains of abdominal bloating, leg swelling +orthopnea Denies any chest pain, dizziness, nausea, vomiting, abdominal pain seen by cardiology, nephrology and podiatry during this hiosp. stay. Also seen by pulm. earlier. Currently daughter present at the bedside Review of Systems Review of Systems: All systems reviewed & are unremarkable except as noted in Subjective Physical Exam Physical Exam: General Appearance: Thin, frail, elderly M in NAD Head: NC/AT Eyes: normal inspection, EOMI Neck: supple Respiratory/Chest: Decreased breath sounds, basal rales, No accessory muscle use Cardiovascular: S1, S2, + murmur Abdomen/GI:Soft, Non tender, Bowel sounds present,+ abdominal hernia Extremities/Musculoskeletal:normal inspection, +edema, R foot in dressings Neurologic/Psych:AAOX3, answers appropriately, no facial asymmetry, moves extremities Skin: warm, dry, erythematous rash multiple areas Results & Data Results & Data Vital Signs (Past 12 Hours) Vital Signs Temp Pulse Pulse Pulse Resp BP BP 03/06/24 10:51 36.8 C 78 16 117/76 03/06/24 10:17 83 18 03/06/24 08:18 36.6 C 88 16 118/63 03/06/24 07:16 83 16 03/06/24 05:56 85 03/06/24 03:22 36.9 C 75 18 119/66 Pulse Ox O2 Del Method O2 Flow Rate 03/06/24 10:51 98 Nasal Cannula 3 03/06/24 10:17 98 Nasal Cannula 3 03/06/24 08:18 99 Nasal Cannula 3 03/06/24 07:16 98 Nasal Cannula 3 03/06/24 05:56 03/06/24 03:22 98 Nasal Cannula 2 Laboratory Results 03/06/24 Range/Units 07:06 WBC 10.05 (4.8-10.8) K/ul RBC 3.58 L (4.70-6.10) M/uL Hgb 9.8 L (14.0-18.0) g/dl Hct 29.8 L (42.0-52.0) % MCV 83.2 (80.0-100.0) fL MCH 27.4 (25.0-34.0) pg MCHC 32.9 (32.0-36.0) g/dL RDW Std Deviation 45.7 (36.4-46.3) fL RDW Coeff of Nehemias 15.3 H (11.5-14.5) % Plt Count 291 (130-400) K/uL MPV 9.6 (9.4-12.4) fL Sodium 132 L (136-145) mmol/L Potassium 4.3 (3.5-5.1) mmol/L Chloride 95 L (98-107) mmol/L Carbon Dioxide 28 (21-32) mmol/L Anion Gap 9 (3-11) BUN 82 H (6-23) mg/dl Creatinine 2.43 H (0.6-1.4) mg/dl Est Cr Clr Drug Dosing 24.4 ml/min Est GFR ( Amer) 26.5 ml/min Est GFR (Non-Af Amer) 22.9 ml/min BUN/Creatinine Ratio 33.7 H (10-20) Glucose 118 H (70-99(Fasting)) mg/dl Calcium 9.2 (8.6-10.3) mg/dl Magnesium 2.3 (1.7-2.4) mg/dl Medications Administered Current Inpatient Medications Acetaminophen (Acetaminophen 325 Mg Tab) 650 mg PO Q4H PRN PRN Reason: Moderate Pain (Scale 4, 5, 6) Stop: 03/28/24 16:57 Last Admin: 03/03/24 23:15 Dose: 650 mg Allopurinol (Allopurinol 100 Mg Tab) 100 mg PO QAM [facility] Stop: 03/29/24 08:59 Last Admin: 03/06/24 07:59 Dose: 100 mg Aspirin (Aspirin 81 Mg Ectab) 81 mg PO DAILY [facility] Stop: 03/29/24 08:59 Last Admin: 03/06/24 07:58 Dose: 81 mg Calcium Carbonate (Calcium Carbonate 500 Mg Chewable Tab) 500 mg PO QID PRN PRN Reason: Indigestion Stop: 04/03/24 22:53 Citalopram Hydrobromide (Citalopram 20 Mg Tab) 20 mg PO QAM [facility] Stop: 03/29/24 08:59 Last Admin: 03/06/24 07:58 Dose: 20 mg Clopidogrel Bisulfate (Clopidogrel Bisulfate 75 Mg Tab) 75 mg PO QAM [facility] Stop: 03/29/24 08:59 Last Admin: 03/06/24 07:58 Dose: 75 mg Famotidine (Famotidine 20 Mg Tab) 20 mg PO QAM [facility] Stop: 03/29/24 08:59 Last Admin: 03/06/24 07:58 Dose: 20 mg Fluticasone Propionate (Fluticasone Propionate Na Spr 16 Gm Btl) 2 sprays NA QA M [facility] Stop: 03/29/24 08:59 Last Admin: 03/06/24 08:00 Dose: 2 sprays Heparin Sodium (Porcine) (Heparin Sod 5,000 Unit/0.5 Ml Vial) 5,000 units SQ Q12 [facility] Stop: 03/29/24 20:59 Last Admin: 03/06/24 07:57 Dose: 5,000 units Hydralazine HCl (Hydralazine 10 Mg Tab) 10 mg PO AMHS [facility] Stop: 03/28/24 20:59 Last Admin: 03/06/24 07:58 Dose: 10 mg Ceftriaxone Sodium (Rocephin) 2,000 mg in 50 mls @ 100 mls/hr IV Q24H [facility] Stop: 04/10/24 15:59 Last Infusion: 03/05/24 18:14 Dose: Infused Bumetanide 1 mg/ Syringe 4 mls @ 4 mls/min IV TIDM [facility] Stop: 03/29/24 14:14 Last Admin: 03/01/24 13:26 Dose: Not Given Bumetanide 0.5 mg/ Syringe 2 mls @ 4 mls/min IV BID@0900,1700 [facility] Stop: 04/04/24 18:44 Last Admin: 03/06/24 07:59 Dose: 4 mls/min Ipratropium [place] (Ipratropium Ringling Hfa Inhaler) 2 puffs INH QIDR [facility] Stop: 03/28/24 18:59 Last Admin: 03/06/24 10:17 Dose: 2 puffs Isosorbide Mononitrate (Isosorbide Moody Extended Rel 60 Mg Tabcr) 60 mg PO QAM [facility] Stop: 03/29/24 08:59 Last Admin: 03/06/24 07:59 Dose: 60 mg Metoprolol Succinate (Metoprolol Succ 25mg Ext Rel Tab) 25 mg PO QAM [facility] Stop: 03/28/24 15:59 Last Admin: 03/06/24 07:59 Dose: 25 mg Metoprolol Succinate (Metoprolol Succ 25mg Ext Rel Tab) 12.5 mg PO QPM [facility] Stop: 03/31/24 20:59 Last Admin: 03/05/24 19:58 Dose: 12.5 mg Mometasone Furoate (Mometasone Furoate 0.1% Oint 15 Gm Tube) 1 appln EXT DAILY [facility] Stop: 03/29/24 08:59 Last Admin: 03/06/24 07:58 Dose: 1 appln Multivitamins (Multivitamin Tab) 1 tab PO DAILY [facility] Stop: 03/29/24 08:59 Last Admin: 03/06/24 07:59 Dose: 1 tab Nitroglycerin (Nitroglycerin Sl 0.4 Mg/Tab Tab) 0.4 mg SL Q5M PRN PRN Reason: chest pain Stop: 03/28/24 15:30 Ondansetron HCl (Ondansetron Inj 2 Mg/Ml 2 Ml Vial) 4 mg IV Q4H PRN PRN Reason: Nausea And Vomiting Stop: 03/28/24 16:57 Pantoprazole Sodium (Pantoprazole 40 Mg Tab) 40 mg PO QAM [facility] Stop: 03/29/24 08:59 Last Admin: 03/06/24 07:59 Dose: 40 mg Potassium Chloride (Potassium Chloride 10 Meq Tabcr) 10 meq PO DAILY [facility] Stop: 04/04/24 18:44 Last Admin: 03/06/24 07:59 Dose: 10 meq Rosuvastatin Calcium (Rosuvastatin Calcium 10 Mg Tab) 10 mg PO HS [facility] Stop: 03/28/24 20:59 Last Admin: 03/05/24 20:00 Dose: 10 mg Sodium Chloride (Sodium Chloride 0.65% Na Soln 45 Ml ([place])) 1 sprays NA UD PRN PRN Reason: Congestion Stop: 03/28/24 15:30 Tamsulosin HCl (Tamsulosin Hcl 0.4 Mg Cap) 0.4 mg PO AMHS [facility] Stop: 03/28/24 20:59 Last Admin: 03/06/24 07:59 Dose: 0.4 mg
[2024-03-06] MEDS: ADVANCED PROBIOTIC 625 MG CAPSULE PO SCH (16:21)
[2024-03-07 07:04] LABS: BUN Creatinine Ratio 30.9 (10-20); Calcium 9.2 mg/dl (8.6-10.3); Creatinine Clr Calc Pharmacy 22.7 ml/min; Est GFR (African American) 24.2 ml/min; Est GFR (Non-African American) 20.9 ml/min; Magnesium 2.2 mg/dl (1.7-2.4); Phosphorus 4.7 mg/dl (2.5-4.9); Potassium 4.5 mmol/L (3.5-5.1)
--- NOTE | 2024-03-07 10:35 | Nephrology Progress Note ---
Date of Service March 07, 2024 Assessment & Plan Admission and Anticipated Discharge Date Admission Date: February 27, 2024 Subjective Assessment & Plan (1) Acute kidney injury superimposed on CKD: Plan: Slightly improved/stable nonoliguric stage 1 TAYA on CKD4 baseline creatinine about generally 2.3 on 2 checks just prior to admission late last month. Current rise in creat is most likely ATN related to infection, to abtx, to diuretics. Currently has Sig volume overload with Hypervolemic Hyponatremia. he is Symptomatic from this and has SOB. edema also worse. bumex 0.5 does not seem to be enough so will raise the dose to 2 bid. raise kcl 20 bid. may need more. CXR x 2 view today. he will not come out with previous creat. very likely having CKD progression w/ recent clinical events (markedly worse cardiac function past 6 mos) Subjective massive edema and c/o SOb and orthopnea. urine is dark and not very brisk output. Labs getting worse. Review of Systems Review of Systems: All systems reviewed & are unremarkable except as noted in Subjective Physical Exam Constitutional: well developed, + frail appearing and comfortable; no acute distress Eyes: EOM intact bilaterally ENMT: Ears: no external ear abnormality Nose: no external nose abnormality Mouth: + dry oral mucous membranes Neck: no nuchal rigidity Respiratory: normal respiratory effort (on 02NC) Auscultation: + diminished lung sounds (markedly) Cardiovascular: Rate/Rhythm: regular rate and regular rhythm Extremities: + edema (1+) Gastrointestinal (Abdomen): Inspection/Auscultation: normal bowel sounds Percussion/Palpation: abdomen soft; abdomen nontender Musculoskeletal: Extremities: strength 5/5 throughout Skin: no rashes, warm and dry Psychiatric: Orientation: alert and oriented x 3 Insight: + limited insight Results & Data Vital Signs (Past 12 Hours) Vital Signs Temp Pulse Pulse Pulse Resp BP Pulse Ox 03/07/24 08:05 36.6 C 87 17 118/61 98 03/07/24 07:45 69 16 98 03/07/24 03:24 36.2 C L 97 H 23 124/74 98 03/06/24 23:58 83 O2 Del Method O2 Flow Rate 03/07/24 08:05 Nasal Cannula 2.5 03/07/24 07:45 Nasal Cannula 2 03/07/24 03:24 Nasal Cannula 03/06/24 23:58
--- NOTE | 2024-03-07 12:30 | Hospitalist Progress Note ---
Date of Service March 07, 2024 Assessment & Plan (1) Acute on chronic HFrEF (heart failure with reduced ejection fraction): (2) Dyspnea on exertion: (3) Severe pulmonary hypertension: (4) Restrictive lung disease: (5) HTN (hypertension): (6) Hypoxia: (7) Nocturnal hypoxemia: (8) Stage 3b chronic kidney disease (CKD): Plan: Acute on chronic systolic CHF exacerbation Acute on chronic hypoxic respiratory failure Chronic oxygen dependency--on 2 L at bedtime Fluid overload due to above Severe pulmonary hypertension --Chest CT:Redemonstration of innumerable pulmonary nodules which are nonspecific but may represent sarcoidosis, pneumonitis, or other chronic infectious/inflammatory process. No superimposed pneumonia is definitely seen. Bilateral pleural effusions have slightly increased from prior exam. --ECHO: Left ventricle is mildly dilated. Mild concentric LVH. 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 Left ventricle systolic function is severely reduced. EF 20 -25 %. Mild mitral, tricuspid regurgitation. Right ventricular systolic pressure is severely elevated> 60 mmHg. (ECHO unchanged from prior) Appreciate cardiology input Monitor I's and O's, daily weight, fluid restriction Held IV Bumex as renal function worsening Saturating well on 2 L supplemental oxygen Metoprolol succinate dose adjusted per cardiology Monitor volume status closely Diuresis as per cardiology/nephrology - discussed w/ nephrology - will increase bumex dose Cr levels monitored Poor prognosis Right foot Wound/Osteomyelitis - MRI R foot w/o contrast obtained as outpt reviewed - showing early osteo at the 5th metatarsal head --S/P Right Foot Incision and Drainage to Bone by on 03/01/2024 -Wound cultures preliminary--probable skin chela Empirically on Rocephin, Dapto>>Rocephin only Appreciate podiatry input Continue wound care Cultures remain negative Leukocytosis resolved Appreciate ID input Will need PICC line, prolonged course of IV antibiotics per ID recommendations - ceftriaxone 2 g daily for a total duration of 6 weeks (counting to start from the day of surgery). Anticipated end date will be April 12, 2024. Continue current management Recent Rhino Infection Remains positive on bio fire since last discharge Monitor HLD Hold statin while on Dapto TAYA on CKD IV Baseline Cr ~2 Expected from IV diuretics/ATN Monitor renal function Avoid nephrotoxic agents as able Cr:2.6 today Anticipate he will have new baseline/ progression of CKD, nephrology following Mood Disorder Continue home medication DVT Px: Heparin SQ CODE STATUS: Full code May need to involve palliative care if no improvement Admission and Anticipated Discharge Date Admission Date: February 27, 2024 Subjective Patient seen in follow up of CHF, TAYA on CKD , right foot OM Currently sitting up in chair in NAD, on suppl. O2 Complains of abdominal bloating, leg swelling, + orthopnea- somewhat improved today Discussed w/ nephrology - will increase bumex dose Denies any chest pain, dizziness, nausea, vomiting, abdominal pain seen by cardiology, nephrology and podiatry during this hiosp. stay. Also seen by pulm. earlier. Currently son present at the bedside. Also discussed w/ RN. Review of Systems Review of Systems: All systems reviewed & are unremarkable except as noted in Subjective Physical Exam Physical Exam: General Appearance: Thin, frail, elderly M in NAD, on suppl. O2 Head: NC/AT Eyes: normal inspection, EOMI Neck: supple Respiratory/Chest: Decreased breath sounds, basal rales, No accessory muscle use Cardiovascular: S1, S2, + murmur Abdomen/GI:Soft, Non tender, Bowel sounds present,+ abdominal hernia Extremities/Musculoskeletal:normal inspection, +edema, R foot in dressings Neurologic/Psych:AAOX3, answers appropriately, no facial asymmetry, moves extremities Skin: warm, dry, erythematous rash multiple areas Results & Data Results & Data Vital Signs (Past 12 Hours) Vital Signs Temp Pulse Pulse Resp BP Pulse Ox O2 Del Method 03/07/24 11:45 36.6 C 78 17 149/69 H 99 Nasal Cannula 03/07/24 11:26 Nasal Cannula 03/07/24 08:05 36.6 C 87 17 118/61 98 Nasal Cannula 03/07/24 07:45 69 16 98 Nasal Cannula 03/07/24 03:24 36.2 C L 97 H 23 124/74 98 Nasal Cannula O2 Flow Rate 03/07/24 11:45 2.0 03/07/24 11:26 3 03/07/24 08:05 2.5 03/07/24 07:45 2 03/07/24 03:24 Laboratory Results 03/07/24 Range/Units 05:47 Sodium 131 L (136-145) mmol/L Potassium 4.5 (3.5-5.1) mmol/L Chloride 95 L (98-107) mmol/L Carbon Dioxide 26 (21-32) mmol/L Anion Gap 10 (3-11) BUN 81 H (6-23) mg/dl Creatinine 2.62 H (0.6-1.4) mg/dl Est Cr Clr Drug Dosing 22.7 ml/min Est GFR ( Amer) 24.2 ml/min Est GFR (Non-Af Amer) 20.9 ml/min BUN/Creatinine Ratio 30.9 H (10-20) Glucose 125 H (70-99(Fasting)) mg/dl Calcium 9.2 (8.6-10.3) mg/dl Phosphorus 4.7 (2.5-4.9) mg/dl Magnesium 2.2 (1.7-2.4) mg/dl Medications Administered Current Inpatient Medications Acetaminophen (Acetaminophen 325 Mg Tab) 650 mg PO Q4H PRN PRN Reason: Moderate Pain (Scale 4, 5, 6) Stop: 03/28/24 16:57 Last Admin: 03/03/24 23:15 Dose: 650 mg Allopurinol (Allopurinol 100 Mg Tab) 100 mg PO [facility] Stop: 03/29/24 08:59 Last Admin: 03/07/24 08:34 Dose: 100 mg Aspirin (Aspirin 81 Mg Ectab) 81 mg PO DAILY [facility] Stop: 03/29/24 08:59 Last Admin: 03/07/24 08:34 Dose: 81 mg Calcium Carbonate (Calcium Carbonate 500 Mg Chewable Tab) 500 mg PO QID PRN PRN Reason: Indigestion Stop: 04/03/24 22:53 Citalopram Hydrobromide (Citalopram 20 Mg Tab) 20 mg PO [facility] Stop: 03/29/24 08:59 Last Admin: 03/07/24 08:34 Dose: 20 mg Clopidogrel Bisulfate (Clopidogrel Bisulfate 75 Mg Tab) [facility] [place] [facility]: 03/29/24 08:59 Last Admin: 03/07/24 08:34 Dose: 75 mg Famotidine (Famotidine 20 Mg Tab) 20 [facility] [place] Stop: 03/29/24 08:59 Last Admin: 03/07/24 08:35 Dose: 20 mg Fluticasone Propionate (Fluticasone Propionate Na Spr 16 Gm Btl) 2 sprays NA QAM [facility] Stop: 03/29/24 08:59 Last Admin: 03/07/24 08:32 Dose: 2 sprays Heparin Sodium (Porcine) (Heparin Sod 5,000 Unit/0.5 Ml Vial) 5,000 units SQ Q12 [facility] Stop: 03/29/24 20:59 Last Admin: 03/07/24 08:33 Dose: 5,000 units Ceftriaxone Sodium (Rocephin) 2,000 mg in 50 mls @ 100 mls/hr IV Q24H [facility] Stop: 04/10/24 15:59 Last Infusion: 03/06/24 17:16 Dose: Infused Bumetanide 2 mg/ Syringe 8 mls @ 4 mls/min IV BID@0900,1700 [facility] Stop: 04/06/24 10:29 Ipratropium [place] (Ipratropium [place] Hfa Inhaler) 2 puffs INH QIDR [facility] Stop: 03/28/24 18:59 Last Admin: 03/07/24 07:44 Dose: 2 puffs Isosorbide Mononitrate (Isosorbide [place] Extended Rel 60 Mg Tabcr) 60 mg PO QAM [facility] Stop: 03/29/24 08:59 Last Admin: 03/07/24 08:33 Dose: 60 mg Lactobacillus Acidophilus (Advanced Probiotic 625 Mg Capsule) 1,250 mg PO DAILY [facility] Stop: 04/05/24 15:59 Last Admin: 03/07/24 08:33 Dose: 1,250 mg Metoprolol Succinate (Metoprolol Succ 25mg Ext Rel Tab) 25 mg PO QAM [facility] Stop: 03/28/24 15:59 Last Admin: 03/07/24 08:34 Dose: 25 mg Metoprolol Succinate (Metoprolol Succ 25mg Ext Rel Tab) 12.5 mg PO QPM [facility] Stop: 03/31/24 20:59 Last Admin: 03/06/24 20:32 Dose: 12.5 mg Mometasone Furoate (Mometasone Furoate 0.1% Oint 15 Gm Tube) 1 appln EXT DAILY [facility] Stop: 03/29/24 08:59 Last Admin: 03/07/24 08:33 Dose: 1 appln Multivitamins (Multivitamin Tab) 1 tab PO DAILY [facility] Stop: 03/29/24 08:59 Last Admin: 03/07/24 08:34 Dose: 1 tab Nitroglycerin (Nitroglycerin Sl 0.4 Mg/Tab Tab) 0.4 mg SL Q5M PRN PRN Reason: chest pain Stop: 03/28/24 15:30 Ondansetron HCl (Ondansetron Inj 2 Mg/Ml 2 Ml Vial) 4 mg IV Q4H PRN PRN Reason: Nausea And Vomiting Stop: 03/28/24 16:57 Pantoprazole Sodium (Pantoprazole 40 Mg Tab) 40 mg PO QAM [facility] Stop: 03/29/24 08:59 Last Admin: 03/07/24 08:34 Dose: 40 mg Potassium Chloride (Potassium Chloride Crtab 20 Meq Tabcr) 20 meq PO BID [facility] Stop: 04/06/24 20:59 Rosuvastatin Calcium (Rosuvastatin Calcium 10 Mg Tab) 10 mg PO HS [facility] Stop: 03/28/24 20:59 Last Admin: 03/06/24 20:33 Dose: 10 mg Sodium Chloride (Sodium Chloride 0.65% Na Soln 45 Ml ([place])) 1 sprays NA UD PRN PRN Reason: Congestion Stop: 03/28/24 15:30 Tamsulosin HCl (Tamsulosin Hcl 0.4 Mg Cap) 0.4 mg PO [facility] Stop: 03/28/24 20:59 Last Admin: 03/07/24 08:34 Dose: 0.4 mg
--- NOTE | 2024-03-07 12:41 | XRay Report ---
XR chest 2V PA/lateral HISTORY: 88 years-old Male Pl effsuion/CHF acute shortness breath COMPARISON: 02/29/2024 TECHNIQUE: AP and lateral views of the chest FINDINGS: Cardiac silhouette is enlarged. Pulmonary vascular congestion. Bilateral reticulonodular opacities re demonstrated along with layering pleural effusions and bibasilar consolidation. No pneumothorax. IMPRESSION: 1. Cardiomegaly with pulmonary vascular congestion. 2. Bilateral reticular nodular opacities redemonstrated, likely infectious or inflammatory. 3. Layering pleural effusions with bibasilar consolidation appears stable. ACT 112: Negative or not required by law. The above report was generated using voice recognition software. It may contain grammatical, syntax o r spelling errors. Electronically signed by: Azar Bruce M.D. 03/07/2024 12:40 PM
[2024-03-07] MEDS: BUMETANIDE 2 MG in SYRINGE 0 ML IV SCH (13:35)
[2024-03-07] MEDS: POTASSIUM CHLORIDE CRTAB 20 MEQ TABCR PO SCH (20:32)
[2024-03-08 06:28] LABS: BUN Creatinine Ratio 34.1 (10-20); Calcium 9.5 mg/dl (8.6-10.3); Creatinine Clr Calc Pharmacy 22.5 ml/min; Est GFR (Non-African American) 20.7 ml/min; Magnesium 2.1 mg/dl (1.7-2.4); Phosphorus 5.1 mg/dl (2.5-4.9); Potassium 4.4 mmol/L (3.5-5.1)
--- NOTE | 2024-03-08 09:29 | Hospitalist Progress Note ---
Date of Service March 08, 2024 Assessment & Plan (1) Acute on chronic HFrEF (heart failure with reduced ejection fraction): (2) Dyspnea on exertion: (3) Severe pulmonary hypertension: (4) Restrictive lung disease: (5) HTN (hypertension): (6) Hypoxia: (7) Nocturnal hypoxemia: (8) Stage 3b chronic kidney disease (CKD): Plan: Acute on chronic systolic CHF exacerbation Acute on chronic hypoxic respiratory failure Chronic oxygen dependency--on 2 L at bedtime Fluid overload due to above Severe pulmonary hypertension --Chest CT:Redemonstration of innumerable pulmonary nodules which are nonspecific but may represent sarcoidosis, pneumonitis, or other chronic infectious/inflammatory process. No superimposed pneumonia is definitely seen. Bilateral pleural effusions have slightly increased from prior exam. --ECHO: Left ventricle is mildly dilated. Mild concentric LVH. 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 Left ventricle systolic function is severely reduced. EF 20 -25 %. Mild mitral, tricuspid regurgitation. Right ventricular systolic pressure is severely elevated> 60 mmHg. (ECHO unchanged from prior) Appreciate cardiology input Monitor I's and O's, daily weight, fluid restriction Held IV Bumex as renal function worsening Saturating well on 2 L supplemental oxygen Metoprolol succinate dose adjusted per cardiology Monitor volume status closely Diuresis as per cardiology/nephrology - discussed w/ nephrology - bumex dose increased, also recommend palliative medicine consult Cr levels monitored Poor prognosis Right foot Wound/Osteomyelitis - MRI R foot w/o contrast obtained as outpt reviewed - showing early osteo at the 5th metatarsal head --S/P Right Foot Incision and Drainage to Bone by on 03/01/2024 -Wound cultures preliminary--probable skin chela Empirically on Rocephin, Dapto>>Rocephin only Appreciate podiatry input Continue wound care Cultures remain negative Leukocytosis resolved Appreciate ID input Will need PICC line, prolonged course of IV antibiotics per ID recommendations - ceftriaxone 2 g daily for a total duration of 6 weeks (counting to start from the day of surgery). Anticipated end date will be April 12, 2024. Continue current management Recent Rhino Infection Remains positive on bio fire since last discharge Monitor HLD Hold statin while on Dapto TAYA on CKD IV Baseline Cr ~2 Expected from IV diuretics/ATN Monitor renal function Avoid nephrotoxic agents as able Cr:2.6 today Anticipate he will have new baseline/ progression of CKD, nephrology following Mood Disorder Continue home medication DVT Px: Heparin SQ CODE STATUS: Discussed w/ palliative medicine and pt's daughter at the bedside - code status changed to DNR/DNI Admission and Anticipated Discharge Date Admission Date: February 27, 2024 Subjective Patient seen in follow up of CHF, TAYA on CKD , right foot OM Currently laying in bed in NAD, on suppl. O2 + abdominal bloating, leg swelling, + orthopnea- somewhat improved today Discussed w/ nephrology - bumex dose increased and also recommend palliative med. consult. Discussed w/ palliative and pt's daughter at the bedside - code status changed to DNR/DNI Pt currently denies any chest pain, dizziness, nausea, vomiting, abdominal pain seen by cardiology, nephrology and podiatry during this hiosp. stay. Also seen by pulm. earlier. Review of Systems Review of Systems: All systems reviewed & are unremarkable except as noted in Subjective Physical Exam Physical Exam: General Appearance: Thin, frail, elderly M in NAD, on suppl. O2 Head: NC/AT Eyes: normal inspection, EOMI Neck: supple Respiratory/Chest: Decreased breath sounds, basal rales, No accessory muscle use Cardiovascular: S1, S2, + murmur Abdomen/GI:Soft, Non tender, Bowel sounds present,+ abdominal hernia Extremities/Musculoskeletal:normal inspection, +edema, R foot in dressings Neurologic/Psych:AAOX3, answers appropriately, no facial asymmetry, moves extremities Skin: warm, dry Results & Data Results & Data Vital Signs (Past 12 Hours) Vital Signs Temp Pulse Pulse Pulse Resp BP Pulse Ox 03/08/24 07:59 36.7 C 80 17 111/66 97 03/08/24 07:13 68 16 97 03/08/24 03:07 36.5 C 98 H 26 H 113/71 95 03/08/24 00:00 93 H 03/07/24 22:35 36.9 C 103 H 20 104/67 93 O2 Del Method O2 Flow Rate 03/08/24 07:59 Nasal Cannula 2.0 03/08/24 07:13 Nasal Cannula 2 03/08/24 03:07 Nasal Cannula 03/08/24 00:00 03/07/24 22:35 Nasal Cannula 3 Laboratory Results 03/08/24 Range/Units 05:39 Sodium 131 L (136-145) mmol/L Potassium 4.4 (3.5-5.1) mmol/L Chloride 95 L (98-107) mmol/L Carbon Dioxide 26 (21-32) mmol/L Anion Gap 10 (3-11) BUN 90 H (6-23) mg/dl Creatinine 2.64 H (0.6-1.4) mg/dl Est Cr Clr Drug Dosing 22.5 ml/min Est GFR ( Amer) 24.0 ml/min Est GFR (Non-Af Amer) 20.7 ml/min BUN/Creatinine Ratio 34.1 H (10-20) Glucose 124 H (70-99(Fasting)) mg/dl Calcium 9.5 (8.6-10.3) mg/dl Phosphorus 5.1 H (2.5-4.9) mg/dl Magnesium 2.1 (1.7-2.4) mg/dl Medications Administered Current Inpatient Medications Acetaminophen (Acetaminophen 325 Mg Tab) 650 mg PO Q4H PRN PRN Reason: Moderate Pain (Scale 4, 5, 6) Stop: 03/28/24 16:57 Last Admin: 03/08/24 06:28 Dose: 650 mg Allopurinol (Allopurinol 100 Mg Tab) 100 mg PO [facility] Stop: 03/29/24 08:59 Last Admin: 03/08/24 08:25 Dose: 100 mg Aspirin (Aspirin 81 Mg Ectab) 81 mg PO DAILY [facility] Stop: 03/29/24 08:59 Last Admin: 03/08/24 08:25 Dose: 81 mg Calcium Carbonate (Calcium Carbonate 500 Mg Chewable Tab) 500 mg PO QID PRN PRN Reason: Indigestion Stop: 04/03/24 22:53 Citalopram Hydrobromide (Citalopram 20 Mg Tab) 20 mg PO [facility] Stop: 03/29/24 08:59 Last Admin: 03/08/24 08:24 Dose: 20 mg Clopidogrel Bisulfate (Clopidogrel Bisulfate 75 Mg Tab) 75 mg PO [facility] Stop: 03/29/24 08:59 Last Admin: 03/08/24 08:23 Dose: 75 mg Famotidine (Famotidine 20 Mg Tab) 20 mg PO [facility] Stop: 03/29/24 08:59 Last Admin: 03/08/24 08:24 Dose: 20 mg Fluticasone Propionate (Fluticasone Propionate Na Spr 16 Gm Btl) 2 sprays NA QAM [facility] Stop: 03/29/24 08:59 Last Admin: 03/08/24 08:23 Dose: 2 sprays Heparin Sodium (Porcine) (Heparin Sod 5,000 Unit/0.5 Ml Vial) 5,000 units SQ Q12 [facility] Stop: 03/29/24 20:59 Last Admin: 03/08/24 08:23 Dose: 5,000 units Ceftriaxone Sodium (Rocephin) 2,000 mg in 50 mls @ 100 mls/hr IV Q24H [facility] Stop: 04/10/24 15:59 Last Infusion: 03/07/24 17:24 Dose: Infused Bumetanide 2 mg/ Syringe 8 mls @ 4 mls/min IV BID@0900,1700 [facility] Stop: 04/06/24 10:29 Last Admin: 03/08/24 08:22 Dose: 4 mls/min Ipratropium [place] (Ipratropium [place] Hfa Inhaler) 2 puffs INH QIDR [facility] Stop: 03/28/24 18:59 Last Admin: 03/08/24 07:13 Dose: 2 puffs Isosorbide Mononitrate (Isosorbide [place] Extended Rel 60 Mg Tabcr) 60 mg PO QAM [facility] Stop: 03/29/24 08:59 Last Admin: 03/08/24 08:24 Dose: 60 mg Lactobacillus Acidophilus (Advanced Probiotic 625 Mg Capsule) 1,250 mg PO DAILY [facility] Stop: 04/05/24 15:59 Last Admin: 03/08/24 08:24 Dose: 1,250 mg Metoprolol Succinate (Metoprolol Succ 25mg Ext Rel Tab) 25 mg PO QAM [facility] Stop: 03/28/24 15:59 Last Admin: 03/08/24 08:24 Dose: 25 mg Metoprolol Succinate (Metoprolol Succ 25mg Ext Rel Tab) 12.5 mg PO QPM [facility] Stop: 03/31/24 20:59 Last Admin: 03/07/24 20:29 Dose: 12.5 mg Mometasone Furoate (Mometasone Furoate 0.1% Oint 15 Gm Tube) 1 appln EXT DAILY [facility] Stop: 03/29/24 08:59 Last Admin: 03/08/24 08:26 Dose: 1 appln Multivitamins (Multivitamin Tab) 1 tab PO DAILY [facility] Stop: 03/29/24 08:59 Last Admin: 03/08/24 08:24 Dose: 1 tab Nitroglycerin (Nitroglycerin Sl 0.4 Mg/Tab Tab) 0.4 mg SL Q5M PRN PRN Reason: chest pain Stop: 03/28/24 15:30 Ondansetron HCl (Ondansetron Inj 2 Mg/Ml 2 Ml Vial) 4 mg IV Q4H PRN PRN Reason: Nausea And Vomiting Stop: 03/28/24 16:57 Pantoprazole Sodium (Pantoprazole 40 Mg Tab) 40 mg PO QAM [facility] Stop: 03/29/24 08:59 Last Admin: 03/08/24 08:25 Dose: 40 mg Potassium Chloride (Potassium Chloride Crtab 20 Meq Tabcr) 20 meq PO BID [facility] Stop: 04/06/24 20:59 Last Admin: 03/08/24 08:23 Dose: 20 meq Rosuvastatin Calcium (Rosuvastatin Calcium 10 Mg Tab) 10 mg PO HS [facility] Stop: 03/28/24 20:59 Last Admin: 03/07/24 20:34 Dose: 10 mg Sodium Chloride (Sodium Chloride 0.65% Na Soln 45 Ml ([place])) 1 sprays NA UD PRN PRN Reason: Congestion Stop: 03/28/24 15:30 Tamsulosin HCl (Tamsulosin Hcl 0.4 Mg Cap) 0.4 mg PO [facility] Stop: 03/28/24 20:59 Last Admin: 03/08/24 08:25 Dose: 0.4 mg
--- NOTE | 2024-03-08 10:09 | Nephrology Progress Note ---
Date of Service March 08, 2024 Assessment & Plan Admission and Anticipated Discharge Date Admission Date: February 27, 2024 Subjective Assessment & Plan (1) Acute kidney injury superimposed on CKD: Plan: nonoliguric stage 1 TAYA on CKD4. However I think this is more of his new baseline creat baseline creatinine about generally 2.3 on 2 checks just prior to admission late last month. Current rise in creat is most likely ATN related to infection, to abtx, to diuretics. Currently has Sig volume overload with Hypervolemic Hyponatremia. he is Symptomatic from this and has SOB. edema also worse. bumex -will raise the dose to 2 bid. raise kcl 20 bid. Renal numbers are no worse on higher bumex than lower bumex. CXR x 2 view shows Pulm edema. he will not come out with previous creat level. having CKD progression w/ recent clinical events (and markedly worse cardiac function past 6 mos) He has severe cardiac as well as Lung Dz--EF 20%, Age, RLD and severe Pulm HTN---Consider Palliative med Consult also. Subjective massive edema and c/o SOb and orthopnea. urine is slightly more and ? more dilute ? Review of Systems Review of Systems: All systems reviewed & are unremarkable except as noted in Subjective Physical Exam Constitutional: well developed, + frail appearing and comfortable; no acute distress Eyes: EOM intact bilaterally ENMT: Ears: no external ear abnormality Nose: no external nose abnormality Mouth: + dry oral mucous membranes Neck: no nuchal rigidity Respiratory: normal respiratory effort (on 02NC) Auscultation: + diminished lung sounds (markedly) Cardiovascular: Rate/Rhythm: regular rate and regular rhythm Extremities: + edema (1+) Gastrointestinal (Abdomen): Inspection/Auscultation: normal bowel sounds Percussion/Palpation: abdomen soft; abdomen nontender Musculoskeletal: Extremities: strength 5/5 throughout Skin: no rashes, warm and dry Psychiatric: Orientation: alert and oriented x 3 Insight: + limited insight Results & Data Vital Signs (Past 12 Hours) Vital Signs Temp Pulse Pulse Pulse Resp BP Pulse Ox 03/08/24 07:59 36.7 C 80 17 111/66 97 03/08/24 07:13 68 16 97 03/08/24 03:07 36.5 C 98 H 26 H 113/71 95 03/08/24 00:00 93 H 03/07/24 22:35 36.9 C 103 H 20 104/67 93 O2 Del Method O2 Flow Rate 03/08/24 07:59 Nasal Cannula 2.0 03/08/24 07:13 Nasal Cannula 2 03/08/24 03:07 Nasal Cannula 03/08/24 00:00 03/07/24 22:35 Nasal Cannula 3
--- NOTE | 2024-03-08 18:28 | Palliative Care Consultation ---
Date of Consultation March 08, 2024 Assessment & Plan (1) Weakness generalized: (2) Dyspnea and respiratory abnormalities: (3) Discussion about advance care planning held with family member: 45-minute [id number] advance care planning discussion was held with Mr. Elliott's daughter at the bedside. She shares that overall, her perception is that he is steadily declining and there are no fixable issues. She notes that he has been getting progressively weaker, more fatigued, less interactive for some time. She also notes that over the course of this admission, he has steadily continued to decline. She has spoken with various specialists throughout this admission and understands that at this junction, none of his chronic advancing illnesses or curable, reversible or fixable. We discussed the overall nature of his heart failure, restrictive lung disease, pulmonary hypertension, CKD 3, declining performance status, and osteomyelitis of the right heel with poor perfusion in the setting of multisystem organ failure. I expressed my worry that overall his prognosis is very poor and that I believe he is beginning a transition to a more end-of-life process. She states that he has always been very clear that should he be nearing the end of his life, he does not want anything to prolong suffering or the dying process and would prefer to have a plan of care that is focused on his comfort. He was also very clear that he wants to be home for his end-of-life care. She is hoping to be able to honor that promised to bring him home and understands that the engagement of home hospice would be helpful to provide support to them as the family. She and both of her brothers live locally and are able to help support patient but she notes that her oldest brother struggles with mental health issues and may not be able to assist in patient's care giving the example that even just this week, he has only come to visit the patient twice and at that, very briefly. She also adds that there are several grandchildren who want to be involved in his care and would also be willing to assist providing this at his home. She is very clear that she [place] not want a [place] and would like to avoid any discussion of a [place] unless there is absolutely no other choice. She is interested in speaking with care management to learn more about options for private in-home caregiver support through agencies such as home instead. We spoke about how overall, he is in a multi organ failure situation with cardiac, pulmonary and renal failure. These are not fixable, curable or reversible. His condition continues to steadily decline and he is becoming more agitated, restless and confused today. He is unable to follow commands or conversation. He cannot provide any details about his illness or personal details about himself such as date of , place of residence, year, date or time. He is likely making a transition into more of an altered mental status and he may be getting ready to transition to a more active end-of-life process. I suggested and she agreed that we see what happens through the weekend and in that time, we will continue the current plan of care with no escalation but should he have any acute decline, we will quickly transition to a comfort focused plan of care that we will begin here in the hospital and if on Monday he is stable for discharge home with the addition of home hospice, that can be coordinated through care management. She verbalized understanding and expressed agreement with this plan. She also noted that it might be helpful to have a family meeting on Monday if possible with her brothers. I provided her with some available times on my schedule and asked her to let the ICU team know about the time that would work best for them as a family on Monday. I have updated the primary team. (4) Palliative care by specialist: Plan As noted above. Thank you for allowing us to participate in the ongoing care of this patient. Please page with any additional concerns. Zoraida Cheema DNP Director, Palliative Medicine History of Present Illness Reason for Consultation: Overall decline, please assist with family meetings on the goals of care Attending Physician: Jc Pollard MD History of Present Illness Mr. Villasenor is an 88-year-old gentleman who was admitted from home on 03/01/2024 with progressive weakness, dyspnea, fluid overload, and chest discomfort. His chronic issues at this time include the following: Acute on chronic systolic CHF exacerbation Acute on chronic hypoxic respiratory failure Chronic oxygen dependency--on 2 L at bedtime Fluid overload due to above Severe pulmonary hypertension Imaging this admission demonstrates the following: Chest CT:Redemonstration of innumerable pulmonary nodules which are nonspecific but may represent sarcoidosis, pneumonitis, or other chronic infectious/i nflammatory process. No superimposed pneumonia is definitely seen. Bilateral pleural effusions have slightly increased from prior exam. ECHO: Left ventricle is mildly dilated. Mild concentric LVH. 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 Left ventricle systolic function is severely reduced. EF 20 -25 %. Mild mitral, tricuspid regurgitation. Right ventricular systolic pressure is severely elevated> 60 mmHg. ECHO unchanged from prior but significantly worse from 2019 echo. Mr. Elliott is seen bedside together with his daughter present. He will open his eyes to his name but is otherwise confused, somewhat restless and irritable, and speaking in a nonsensical pattern. He is unable to follow commands. He is unable to provide HPI. His daughter is his power of sports attorney and surrogate decision maker. Allergies Allergy/AdvReac Type Severity Reaction Status Date / Time trazodone AdvReac Intermediate Hallucinati Verified 03/01/24 06:34 ng Home Medications Medication Instructions Recorded Confirmed Type aspirin 81 mg tablet,delayed 81 mg PO DAILY 05/21/19 02/27/24 History release tamsulosin 0.4 mg capsule 0.4 mg PO AMHS 05/21/19 02/27/24 History multivitamin-ferrous 1 tab PO DAILY 05/22/19 02/27/24 History fumarate-folic acid 18 mg-400 mcg tablet (Centrum Complete) famotidine 20 mg tablet 20 mg PO QAM 03/06/23 02/27/24 History guaifenesin 600 mg tablet, 600 mg PO Q12H PRN Cough 03/06/23 02/27/24 History extended release 12 hr ipratropium bromide 17 2 puff inhalation QID 03/06/23 02/27/24 History mcg/actuation HFA aerosol inhaler (Atrovent HFA) sodium chloride 0.65 % nasal spray 1 spray intranasal UD PRN 03/06/23 02/27/24 History aerosol (Saline Nasal) Congestion fluticasone propionate 50 2 sprays intranasal QAM 09/09/23 02/27/24 History mcg/actuation nasal spray,suspension rosuvastatin 10 mg tablet 10 mg PO HS 09/09/23 02/27/24 History clopidogrel 75 mg tablet 75 mg PO QAM #30 tabs 09/12/23 02/27/24 Rx isosorbide mononitrate 60 mg 60 mg PO QAM #30 tabs 09/12/23 02/27/24 Rx tablet,extended release 24 hr metoprolol succinate 25 mg 25 mg PO QAM #30 tabs 09/12/23 02/27/24 Rx tablet,extended release 24 hr nitroglycerin 0.4 mg sublingual 0.4 mg sublingual Q5M PRN chest 09/12/23 02/27/24 Rx tablet (Nitrostat) pain #30 tabs allopurinol 100 mg tablet 100 mg PO QAM 01/30/24 02/27/24 History torsemide 20 mg tablet 80 mg (4 x 20 mg) PO QAM 30 days 02/07/24 02/27/24 Rx #120 tabs citalopram 20 mg tablet 20 mg PO QAM 02/27/24 02/27/24 History hydralazine 10 mg tablet 10 mg PO AMHS 02/27/24 02/27/24 History mometasone 0.1 % topical ointment 1 applic topical DAILY 02/27/24 02/27/24 History pantoprazole 40 mg tablet,delayed 40 mg PO QAM 02/27/24 02/27/24 History release Patient History Medical History Acute on chronic renal failure Elevated troponin I level Chest pain Pulmonary edema Prostate cancer (11/03/14) "Rising PSA to 7.46 Status post ultrasound-guided biopsies revealing adenocarcinoma [place] 4+3, biopsy stage T2c Initiation of hormone suppression prior to prostate seed implant, short course Status post prostate seed implant 02/03/2015 with cesium 131 received 8500 cGy 50 seeds placed Status post completion of IMRT/IGRT 04/28/2015 received 4500 cGy " On 05/26/15 14:44 Shira Goldberg wrote "Rising PSA to 7.46 Status post ultrasound-guided biopsies revealing adenocarcinoma [place] 4+3, biopsy stage T2c Initiation of hormone suppression prior to prostate seed implant Status post prostate seed implant 02/03/2015 with cesium 131 received 8500 cGy 50 seeds placed Status post completion of IMRT/IGRT 04/28/2015 received 4500 cGy " On 05/01/15 12:43 Sandra Marquez wrote "Rising PSA to 7.46 Status post ultrasound-guided biopsies revealing adenocarcinoma [place] 4+3, biopsy stage T2c Initiation of hormone suppression Status post prostate seed implant 02/03/2015 with cesium 131 received 8500 cGy 50 seeds placed Status post completion of IMRT/IGRT 04/28/2015 received 4500 cGy " On 03/17/15 15:55 Sandra Marquez wrote "Rising PSA to 7.46 Status post ultrasound-guided biopsies revealing adenocarcinoma [place] 4+3, biopsy stage T2c Initiation of hormone suppression Status post prostate seed implant 02/03/2015 with cesium 131 received 8500 cGy 50 seeds placed Now for completion of IMRT/IGRT" Surgical History History of appendectomy H/O shoulder surgery Family History Other Heart disease Social History Smoking Status: Never smoker Tobacco Type: Cigarettes Second Hand Exposure: No; Do You Dip or Chew Tobacco: No; Hx Alcohol Use: No Hx Substance Use: No Preferred Language: Upper Sorbian Communication Ability: Effective Translation Director Required: No Beliefs That Will Affect Care: None marital status: / Current Living Situation: Alone Feels Safe at Home: Yes Safety Concerns: Feels Safe At This Time Assistive Devices: Cane, Denture - Upper, Denture - Lower, Glasses and Oxygen - Continuous Review of Systems Review of Systems: Unobtainable due to cognitive status Physical Exam Physical Exam: Frail, chronically ill, elderly male who is restless, confused and slightly irritable. + Nonsensical speech + Bitemporal wasting Pupils are equal, round and reactive to light. His neck is supple and without stridor. There is no gross JVD. Mildly increased respiratory effort, no wheezing. RRR, on monitor Abdomen soft, nontender, BS + Bilateral lower extremities with +2 edema up to below the knee, there is an ulcerating wound of the right foot with an intact dressing, skin is warm, there are venous insufficiency changes He is unable to follow commands. He is alert to self only. Skin is pale and warm to touch, there is no gross cyanosis or mottling. Results & Data Vital Signs (Past 12 Hours) Vital Signs Temp Pulse Pulse Pulse Resp BP BP 03/08/24 15:48 36.5 C 78 22 135/79 03/08/24 14:13 77 16 03/08/24 10:50 82 18 03/08/24 10:44 36.3 C L 81 22 117/68 03/08/24 08:00 84 03/08/24 08:00 03/08/24 07:59 36.7 C 80 17 111/66 03/08/24 07:13 68 16 Pulse Ox O2 Del Method O2 Flow Rate 03/08/24 15:48 97 Nasal Cannula 2.5 03/08/24 14:13 97 Nasal Cannula 2 03/08/24 10:50 98 Nasal Cannula 2 03/08/24 10:44 96 Nasal Cannula 3 03/08/24 08:00 03/08/24 08:00 Nasal Cannula 3 03/08/24 07:59 97 Nasal Cannula 2.0 03/08/24 07:13 97 Nasal Cannula 2 Laboratory Results 03/08/24 03/07/24 03/06/24 Range/Units 05:39 05:47 07:06 WBC 10.05 (4.8-10.8) K/ul RBC 3.58 L (4.70-6.10) M/uL Hgb 9.8 L (14.0-18.0) g/dl Hct 29.8 L (42.0-52.0) % MCV 83.2 (80.0-100.0) fL MCH 27.4 (25.0-34.0) pg MCHC 32.9 (32.0-36.0) g/dL RDW Std Deviation 45.7 (36.4-46.3) fL RDW Coeff of Nehemias 15.3 H (11.5-14.5) % Plt Count 291 (130-400) K/uL MPV 9.6 (9.4-12.4) fL Sodium 131 L 131 L 132 L (136-145) mmol/L Potassium 4.4 4.5 4.3 (3.5-5.1) mmol/L Chloride 95 L 95 L 95 L (98-107) mmol/L Carbon Dioxide 26 26 28 (21-32) mmol/L Anion Gap 10 10 9 (3-11) BUN 90 H 81 H 82 H (6-23) mg/dl Creatinine 2.64 H 2.62 H 2.43 H (0.6-1.4) mg/dl Est Cr Clr Drug Dosing 22.5 22.7 24.4 ml/min Est GFR ( Amer) 24.0 24.2 26.5 ml/min Est GFR (Non-Af Amer) 20.7 20.9 22.9 ml/min BUN/Creatinine Ratio 34.1 H 30.9 H 33.7 H (10-20) Glucose 124 H 125 H 118 H (70-99(Fasting)) mg/dl Calcium 9.5 9.2 9.2 (8.6-10.3) mg/dl Phosphorus 5.1 H 4.7 (2.5-4.9) mg/dl Magnesium 2.1 2.2 2.3 (1.7-2.4) mg/dl Urine Color Urine Appearance (Clear) Urine pH (4.5-7.5) Ur Specific [place] (1.000-1.030) Urine Protein (Negative) Urine Glucose (UA) (Negative) Urine Ketones (Negative) Urine Blood (Negative) Urine Nitrite (Negative) Urine Bilirubin (Negative) Urine Urobilinogen (Negative) Ur Leukocyte Esterase (Negative) Urine WBC (Auto) (0-5) /hpf Urine RBC (Auto) (0-2) /hpf U Hyaline Cast (Auto) (0-2) /lpf U Epithel Cells (Auto) (0-2) /hpf Urine Bacteria (Auto) (None Seen) 03/05/24 03/04/24 03/04/24 Range/Units 08:21 Unknown 07:11 WBC 9.78 (4.8-10.8) K/ul RBC 3.54 L (4.70-6.10) M/uL Hgb 9.8 L (14.0-18.0) g/dl Hct 29.9 L (42.0-52.0) % MCV 84.5 (80.0-100.0) fL MCH 27.7 (25.0-34.0) pg MCHC 32.8 (32.0-36.0) g/dL RDW Std Deviation 46.9 H (36.4-46.3) fL RDW Coeff of Nehemias 15.1 H (11.5-14.5) % Plt Count 315 (130-400) K/uL MPV 9.9 (9.4-12.4) fL Sodium 133 L 135 L (136-145) mmol/L Potassium 3.9 3.6 (3.5-5.1) mmol/L Chloride 94 L 95 L (98-107) mmol/L Carbon Dioxide 30 31 (21-32) mmol/L Anion Gap 9 9 (3-11) BUN 79 H 81 H (6-23) mg/dl Creatinine 2.37 H 2.57 H D (0.6-1.4) mg/dl Est Cr Clr Drug Dosing 25.0 23.1 ml/min Est GFR ( Amer) 27.3 24.8 ml/min Est GFR (Non-Af Amer) 23.6 21.4 ml/min BUN/Creatinine Ratio 33.3 H 31.5 H (10-20) Glucose 177 H 110 H (70-99(Fasting)) mg/dl Calcium 9.4 9.2 (8.6-10.3) mg/dl Phosphorus (2.5-4.9) mg/dl Magnesium (1.7-2.4) mg/dl Urine Color Yellow Urine Appearance Clear (Clear) Urine pH 5.0 (4.5-7.5) Ur Specific [place] 1.018 (1.000-1.030) Urine Protein Trace H (Negative) Urine Glucose (UA) Negative (Negative) Urine Ketones Negative (Negative) Urine Blood Negative (Negative) Urine Nitrite Negative (Negative) Urine Bilirubin Negative (Negative) Urine Urobilinogen Negative (Negative) Ur Leukocyte Esterase Negative (Negative) Urine WBC (Auto) 0-5 (0-5) /hpf Urine RBC (Auto) 0-2 (0-2) /hpf U Hyaline Cast (Auto) 3-5 H (0-2) /lpf U Epithel Cells (Auto) 0-2 (0-2) /hpf Urine Bacteria (Auto) None Seen (None Seen) 03/03/24 03/02/24 Range/Units 05:29 05:48 WBC 9.13 (4.8-10.8) K/ul RBC 3.54 L (4.70-6.10) M/uL Hgb 9.7 L (14.0-18.0) g/dl Hct 29.9 L (42.0-52.0) % MCV 84.5 (80.0-100.0) fL MCH 27.4 (25.0-34.0) pg MCHC 32.4 (32.0-36.0) g/dL RDW Std Deviation 46.4 H (36.4-46.3) fL RDW Coeff of Nehemias 15.2 H (11.5-14.5) % Plt Count 316 (130-400) K/uL MPV 9.9 (9.4-12.4) fL Sodium 135 L 137 (136-145) mmol/L Potassium 3.7 3.5 (3.5-5.1) mmol/L Chloride 96 L 96 L (98-107) mmol/L Carbon Dioxide 30 32 (21-32) mmol/L Anion Gap 9 9 (3-11) BUN 72 H 70 H (6-23) mg/dl Creatinine 2.23 H 2.25 H (0.6-1.4) mg/dl Est Cr Clr Drug Dosing 26.6 25.9 ml/min Est GFR ( Amer) 29.4 29.1 ml/min Est GFR (Non-Af Amer) 25.4 25.1 ml/min BUN/Creatinine Ratio 32.3 H 31.1 H (10-20) Glucose 108 H 120 H (70-99(Fasting)) mg/dl Calcium 9.0 9.2 (8.6-10.3) mg/dl Phosphorus (2.5-4.9) mg/dl Magnesium (1.7-2.4) mg/dl Urine Color Urine Appearance (Clear) Urine pH (4.5-7.5) Ur Specific [place] (1.000-1.030) Urine Protein (Negative) Urine Glucose (UA) (Negative) Urine Ketones (Negative) Urine Blood (Negative) Urine Nitrite (Negative) Urine Bilirubin (Negative) Urine Urobilinogen (Negative) Ur Leukocyte Esterase (Negative) Urine WBC (Auto) (0-5) /hpf Urine RBC (Auto) (0-2) /hpf U Hyaline Cast (Auto) (0-2) /lpf U Epithel Cells (Auto) (0-2) /hpf Urine Bacteria (Auto) (None Seen) Diagnostic Findings Chest X-Ray 02/27/24 12:13 XR chest 1V portable CLINICAL HISTORY: Dyspnea TECHNIQUE: Single frontal radiograph of the chest was obtained. Comparison: Comparison is made to chest radiograph 02/01/2024 FINDINGS: No lines and tubes are seen. Calcified aortic knob is seen. Prominence and cephalization of the vasculature is seen. Interval enlargement of bilateral pleural effusions. IMPRESSION: 1. Cardiomegaly and mild pulmonary edema. 2. Interval slight worsening of bilateral pleural effusions. ACT 112: Negative or not required by law. Electronically signed by: Javon Gallegos M.D. 02/27/2024 1:[address] 02/27/24 16:02 CT chest diagnostic wo con CLINICAL HISTORY: R/o infection TECHNIQUE: Multidetector row helical CT of the chest was performed. Coronal and sagittal reformations were obtained. Automated dose lowering techniques and/or adjustment according to patient size were utilized for this exam. CT DOSE: 497.15 mGy.cm Comparison: Comparison is made to CT chest 04/04/2023 FINDINGS: Lungs and pleura: Small bilateral pleural effusions are slightly increased from prior exam. Innumerable pulmonary nodules are again seen. Heart and pericardium: There is cardiomegaly without evidence of pericardial effusion. Vessels: Moderate atherosclerotic changes in the aorta and coronary arteries. Pulmonary trunk measures 31 mm in diameter. Mediastinum and yudith: Subcentimeter lymph nodes are seen. Chest wall and lower neck: Unremarkable. Abdomen: Unremarkable. Bones: Unremarkable. IMPRESSION: 1. Redemonstration of innumerable pulmonary nodules which are nonspecific but may represent sarcoidosis, pneumonitis, or other chronic infectious/inflammatory process. No superimposed pneumonia is definitely seen. 2. Bilateral pleural effusions have slightly increased from prior exam. ACT 112: Negative or not required by law. Electronically signed by: Javon Gallegos M.D. 02/27/2024 4:41 PM Chest X-Ray 02/29/24 07:00 XR chest 1V portable HISTORY: Pleural effusion COMPARISON: Chest 02/27/2024. FINDINGS: No pneumothorax. Small to moderate right and small left pleural effusions persist. Bibasilar densities again noted. Diffuse reticulonodular interstitial thickening remains unchanged. The heart remains mildly enlarged. There are calcifications within the aortic knob. IMPRESSION: 1. No change in the diffuse reticulonodular interstitial thickening. 2. Small to moderate right and small left pleural effusions persist with patchy bibasilar densities. ACT 112: Negative or not required by law. Electronically signed by: Mike Velasquez M.D. 02/29/2024 7:55 AM Foot X-Ray 03/01/24 07:00 FL foot RT 2V CLINICAL HISTORY: Right foot surgery. COMPARISON STUDY: None. FLUOROSCOPY TIME: 3 seconds. FLUOROSCOPY IMAGES: 2 Ka,r: 0.09 mGy FINDINGS: Resection of the head of the fifth metatarsal. IMPRESSION: Fluoroscopic assistance as above. ACT 112: Negative or not required by law. Electronically signed by: Mike Velasquez M.D. 03/01/2024 9:21 AM Chest X-Ray 03/07/24 10:28 XR chest 2V PA/lateral HISTORY: 88 years-old Male Pl effsuion/CHF acute shortness breath COMPARISON: 02/29/2024 TECHNIQUE: AP and lateral views of the chest FINDINGS: Cardiac silhouette is enlarged. Pulmonary vascular congestion. Bilateral reticulonodular opacities redemonstrated along with layering pleural effusions and bibasilar consolidation. No pneumothorax. IMPRESSION: 1. Cardiomegaly with pulmonary vascular congestion. 2. Bilateral reticular nodular opacities redemonstrated, likely infectious or inflammatory. 3. Layering pleural effusions with bibasilar consolidation appears stable. ACT 112: Negative or not required by law. The above report was generated using voice recognition software. It may contain grammatical, syntax or spelling errors. Electronically signed by: Azar Bruce M.D. 03/07/2024 12:40 PM PG Care Time/CCT Total # of Minutes Spent Total Time Spent with Patient: Total time spent is greater than 50% in coordination of care (as documented) at patient's floor/unit and/or counseling patient: I spent 115 minutes overall addressing this case: 20 min in medical data review/discussion with referring provider(s) and/or preparation for the visit 20 min in direct interaction with the patient/exam 45 min in Advance Care Planning/Goals of Care discussions as detailed above in note (must be >16min) 15 min in subsequent review and synthesis of assessment and plan 15 min communicating with other providers regarding the patient's case: Primary team Prolonged Care Time Prolonged Care Time: Yes Advanced Care Planning 71178 Advanced Care Planning 30 Min 81075 Advanced Care Planning Additional 30 [place] [address] IN/OBS CONSULT LVL 5,80M (25 - SIGNIFICANT, SEPARATELY IDENTIFIABLE ) Patient Type New Medical Decision Making High Complexity Diagnoses Weakness generalized R53.1 Dyspnea and respiratory abnormalities R06.00; R06.89 Discussion about advance care planning held with family member Z71.0 Palliative care by specialist Z51.5 Additional Codes Advanced Care Planning - 48313 Advanced Care Planning 30 Min: 10574 Advanced Care Planning 30 Min ([id number]) Advanced Care Planning - 10368 Advanced Care Planning Additional 30 Min: 54415 Advanced Care Planning Additional 30 Min ([id number]) Prolonged Care Time - Prolonged Care Time: Yes ([id number])
[2024-03-09] MEDS: LEVALBUTEROL 1.25 MG/3 ML NEB NEB PRN (05:31)
[2024-03-09 07:04] LABS: BUN Creatinine Ratio 33.1 (10-20); Calcium 9.8 mg/dl (8.6-10.3); Creatinine Clr Calc Pharmacy 21.6 ml/min; Est GFR (African American) 22.8 ml/min; Est GFR (Non-African American) 19.7 ml/min; Magnesium 2.1 mg/dl (1.7-2.4); Phosphorus 5.2 mg/dl (2.5-4.9); Potassium 4.3 mmol/L (3.5-5.1)
[2024-03-09 07:05] LABS: Hematocrit (blood only) 30.5 % (42.0-52.0); Mean Corpuscular Hemoglobin 27.3 pg (25.0-34.0); Mean Corpuscular Hgb Conc 32.8 g/dL (32.0-36.0); Mean Corpuscular Volume 83.3 fL (80.0-100.0); Mean Platelet Volume 10.3 fL (9.4-12.4); Platelet Count 302 K/uL (130-400); RDW Coefficient of Variation 15.4 % (11.5-14.5); RDW Standard Deviation 46.4 fL (36.4-46.3); Red Blood Count 3.66 M/uL (4.70-6.10); White Blood Count 13.86 K/ul (4.8-10.8)
--- NOTE | 2024-03-09 14:42 | Hospitalist Progress Note ---
Date of Service March 09, 2024 Assessment & Plan (1) Acute on chronic HFrEF (heart failure with reduced ejection fraction): (2) Dyspnea on exertion: (3) Severe pulmonary hypertension: (4) Restrictive lung disease: (5) HTN (hypertension): (6) Hypoxia: (7) Nocturnal hypoxemia: (8) Stage 3b chronic kidney disease (CKD): Plan: Acute on chronic systolic CHF exacerbation Acute on chronic hypoxic respiratory failure Chronic oxygen dependency--on 2 L at bedtime Fluid overload due to above Severe pulmonary hypertension --Chest CT:Redemonstration of innumerable pulmonary nodules which are nonspecific but may represent sarcoidosis, pneumonitis, or other chronic infectious/inflammatory process. No superimposed pneumonia is definitely seen. Bilateral pleural effusions have slightly increased from prior exam. --ECHO: Left ventricle is mildly dilated. Mild concentric LVH. 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 Left ventricle systolic function is severely reduced. EF 20 -25 %. Mild mitral, tricuspid regurgitation. Right ventricular systolic pressure is severely elevated> 60 mmHg. (ECHO unchanged from prior) Appreciate cardiology input Monitor I's and O's, daily weight, fluid restriction Held IV Bumex as renal function worsening Saturating well on 2 L supplemental oxygen Metoprolol succinate dose adjusted per cardiology Monitor volume status closely Diuresis as per cardiology/nephrology - discussed w/ nephrology - bumex dose increased, also recommended palliative medicine consult -> pt made DNR/DNI Cr levels monitored Poor prognosis Right foot Wound/Osteomyelitis - MRI R foot w/o contrast obtained as outpt reviewed - showing early osteo at the 5th metatarsal head --S/P Right Foot Incision and Drainage to Bone by on 03/01/2024 -Wound cultures preliminary--probable skin hcela Empirically on Rocephin, Dapto>>Rocephin only Appreciate podiatry input Continue wound care Cultures remain negative Leukocytosis resolved Appreciate ID input Will need PICC line, prolonged course of IV antibiotics per ID recommendations - ceftriaxone 2 g daily for a total duration of 6 weeks (counting to start from the day of surgery). Anticipated end date will be April 12, 2024. Continue current management Recent Rhino Infection Remains positive on bio fire since last discharge Monitor HLD Hold statin while on Dapto TAYA on CKD IV Baseline Cr ~2 Expected from IV diuretics/ATN Monitor renal function Avoid nephrotoxic agents as able Cr:2.7 today Anticipate he will have new baseline/ progression of CKD, nephrology following Mood Disorder Continue home medication DVT Px: Heparin SQ CODE STATUS: Discussed w/ palliative medicine and pt's daughter at the bedside - code status changed to DNR/DNI Admission and Anticipated Discharge Date Admission Date: February 27, 2024 Subjective Patient seen in follow up of CHF, TAYA on CKD , right foot OM Currently sitting up in chair in NAD, on suppl. O2 + abdominal bloating, leg swelling, + orthopnea- somewhat improved But pt reports he felt short of breath overnight Discussed w/ nephrology - bumex dose was increased and pt was also seen by palliative med. yesterday Discussed w/ palliative and pt's daughter at the bedside yesterday - code status changed to DNR/DNI Pt currently denies any chest pain, dizziness, nausea, vomiting, abdominal pain seen by cardiology, nephrology and podiatry during this hosp. stay. Also seen by pulm. earlier. Today discussed w/ pt and CM - denied rehab - I would not recommend rehab but instead snf and pt is in agreement with that Review of Systems Review of Systems: All systems reviewed & are unremarkable except as noted in Subjective Physical Exam Physical Exam: General Appearance: Thin, frail, elderly M in NAD, on suppl. O2 Head: NC/AT Eyes: normal inspection, EOMI Neck: supple Respiratory/Chest: Decreased breath sounds, basal rales, No accessory muscle use Cardiovascular: S1, S2, + murmur Abdomen/GI:Soft, Non tender, Bowel sounds present,+ abdominal hernia Extremities/Musculoskeletal:normal inspection, +edema, R foot in dressings Neurologic/Psych:AAOX3, answers appropriately, no facial asymmetry, moves extremities Skin: warm, dry Results & Data Results & Data Vital Signs (Past 12 Hours) Vital Signs Temp Pulse Pulse Pulse Resp BP Pulse Ox 03/09/24 11:58 37.0 C 91 H 16 124/68 98 03/09/24 09:46 99 03/09/24 07:30 36.3 C L 93 H 16 134/73 97 03/09/24 07:25 91 H 20 99 03/09/24 07:08 94 H 03/09/24 05:31 93 H 20 97 03/09/24 04:16 36.4 C L 96 H 19 110/69 97 O2 Del Method O2 Flow Rate 03/09/24 11:58 Nasal Cannula 2 03/09/24 09:46 Nasal Cannula 3 03/09/24 07:30 Nasal Cannula 2 03/09/24 07:25 Nasal Cannula 2 03/09/24 07:08 03/09/24 05:31 Nasal Cannula 3 03/09/24 04:16 Nasal Cannula 2.5 Laboratory Results 03/09/24 Range/Units 06:18 WBC 13.86 H (4.8-10.8) K/ul RBC 3.66 L (4.70-6.10) M/uL Hgb 10.0 L (14.0-18.0) g/dl Hct 30.5 L (42.0-52.0) % MCV 83.3 (80.0-100.0) fL MCH 27.3 (25.0-34.0) pg MCHC 32.8 (32.0-36.0) g/dL RDW Std Deviation 46.4 H (36.4-46.3) fL RDW Coeff of Nehemias 15.4 H (11.5-14.5) % Plt Count 302 (130-400) K/uL MPV 10.3 (9.4-12.4) fL Sodium 133 L (136-145) mmol/L Potassium 4.3 (3.5-5.1) mmol/L Chloride 94 L (98-107) mmol/L Carbon Dioxide 26 (21-32) mmol/L Anion Gap 13 H (3-11) BUN 91 H (6-23) mg/dl Creatinine 2.75 H (0.6-1.4) mg/dl Est Cr Clr Drug Dosing 21.6 ml/min Est GFR ( Amer) 22.8 ml/min Est GFR (Non-Af Amer) 19.7 ml/min BUN/Creatinine Ratio 33.1 H (10-20) Glucose 117 H (70-99(Fasting)) mg/dl Calcium 9.8 (8.6-10.3) mg/dl Phosphorus 5.2 H (2.5-4.9) mg/dl Magnesium 2.1 (1.7-2.4) mg/dl Medications Administered Current Inpatient Medications Acetaminophen (Acetaminophen 325 Mg Tab) 650 mg PO Q4H PRN PRN Reason: Moderate Pain (Scale 4, 5, 6) Stop: 03/28/24 16:57 Last Admin: 03/08/24 20:26 Dose: 650 mg Allopurinol ([facility] 100 Mg Tab) [facility] [place] Stop: 03/29/24 08:59 Last Admin: 03/09/24 08:34 Dose: 100 mg Aspirin (Aspirin 81 Mg Ectab) 81 mg PO DAILY [facility] Stop: 03/29/24 08:59 Last Admin: 03/09/24 08:35 Dose: 81 mg Calcium Carbonate (Calcium Carbonate 500 Mg Chewable Tab) 500 mg PO QID PRN PRN Reason: Indigestion Stop: 04/03/24 22:53 Citalopram Hydrobromide (Citalopram 20 Mg Tab) 20 mg PO [facility] Stop: 03/29/24 08:59 Last Admin: 03/09/24 08:35 Dose: 20 mg Clopidogrel Bisulfate (Clopidogrel Bisulfate 75 Mg Tab) 75 mg PO [facility] Stop: 03/29/24 08:59 Last Admin: 03/09/24 08:35 Dose: 75 mg Famotidine (Famotidine 20 Mg Tab) 20 mg PO [facility] Stop: 03/29/24 08:59 Last Admin: 03/09/24 08:34 Dose: 20 mg Fluticasone Propionate (Fluticasone Propionate Na Spr 16 Gm Btl) 2 sprays [facility] [place] Stop: 03/29/24 08:59 Last Admin: 03/09/24 08:36 Dose: 2 sprays Heparin Sodium (Porcine) (Heparin Sod 5,000 Unit/0.5 Ml Vial) 5,000 units SQ Q12 [facility] Stop: 03/29/24 20:59 Last Admin: 03/09/24 08:35 Dose: 5,000 units Ceftriaxone Sodium (Rocephin) 2,000 mg in 50 mls @ 100 mls/hr IV Q24H [facility] Stop: 04/10/24 15:59 Last Infusion: 03/08/24 17:46 Dose: Infused Bumetanide 2 mg/ Syringe 8 mls @ 4 mls/min IV BID@0900,1700 [facility] Stop: 04/06/24 10:29 Last Admin: 03/09/24 08:32 Dose: 4 mls/min Ipratropium [place] (Ipratropium [place] Hfa Inhaler) 2 puffs INH QIDR [facility] Stop: 03/28/24 18:59 Last Admin: 03/09/24 11:33 Dose: 2 puffs Isosorbide Mononitrate (Isosorbide [place] Extended Rel 60 Mg Tabcr) 60 mg PO QAM [facility] Stop: 03/29/24 08:59 Last Admin: 03/09/24 08:35 Dose: 60 mg Lactobacillus Acidophilus (Advanced Probiotic 625 Mg Capsule) 1,250 mg PO DAILY [facility] Stop: 04/05/24 15:59 Last Admin: 03/09/24 08:34 Dose: 1,250 mg Levalbuterol HCl (Levalbuterol 1.25 Mg/3 Ml Neb) 1.25 mg NEB Q4H PRN PRN Reason: Shortness Of Breath Or Wheezing Stop: 04/08/24 05:15 Last Admin: 03/09/24 09:31 Dose: 1.25 mg Metoprolol Succinate (Metoprolol Succ 25mg Ext Rel Tab) 25 mg PO QAM [facility] Stop: 03/28/24 15:59 Last Admin: 03/09/24 08:35 Dose: 25 mg Metoprolol Succinate (Metoprolol Succ 25mg Ext Rel Tab) 12.5 mg PO QPM [facility] Stop: 03/31/24 20:59 Last Admin: 03/08/24 20:28 Dose: 12.5 mg Mometasone Furoate (Mometasone Furoate 0.1% Oint 15 Gm Tube) 1 appln EXT DAILY [facility] Stop: 03/29/24 08:59 Last Admin: 03/09/24 08:37 Dose: 1 appln Multivitamins (Multivitamin Tab) 1 tab PO DAILY [facility] Stop: 03/29/24 08:59 Last Admin: 03/09/24 08:35 Dose: 1 tab Nitroglycerin (Nitroglycerin Sl 0.4 Mg/Tab Tab) 0.4 mg SL Q5M PRN PRN Reason: chest pain Stop: 03/28/24 15:30 Ondansetron HCl (Ondansetron Inj 2 Mg/Ml 2 Ml Vial) 4 mg IV Q4H PRN PRN Reason: Nausea And Vomiting Stop: 03/28/24 16:57 Pantoprazole Sodium (Pantoprazole 40 Mg Tab) 40 mg PO QAM [facility] Stop: 03/29/24 08:59 Last Admin: 03/09/24 08:35 Dose: 40 mg Potassium Chloride (Potassium Chloride Crtab 20 Meq Tabcr) 20 meq PO BID [facility] Stop: 04/06/24 20:59 Last Admin: 03/09/24 08:34 Dose: 20 meq Rosuvastatin Calcium (Rosuvastatin Calcium 10 Mg Tab) 10 mg PO HS [facility] Stop: 03/28/24 20:59 Last Admin: 03/08/24 20:28 Dose: 10 mg Sodium Chloride (Sodium Chloride 0.65% Na Soln 45 Ml ([place])) 1 sprays NA UD PRN PRN Reason: Congestion Stop: 03/28/24 15:30 Tamsulosin HCl (Tamsulosin Hcl 0.4 Mg Cap) 0.4 mg PO [facility] Stop: 03/28/24 20:59 Last Admin: 03/09/24 08:33 Dose: 0.4 mg
[2024-03-10 08:22] LABS: Hematocrit (blood only) 28.1 % (42.0-52.0); Hemoglobin 9.1 g/dl (14.0-18.0); Mean Corpuscular Hgb Conc 32.4 g/dL (32.0-36.0); Mean Corpuscular Volume 83.4 fL (80.0-100.0); Mean Platelet Volume 10.3 fL (9.4-12.4); Platelet Count 282 K/uL (130-400); RDW Coefficient of Variation 15.5 % (11.5-14.5); RDW Standard Deviation 46.6 fL (36.4-46.3); Red Blood Count 3.37 M/uL (4.70-6.10); White Blood Count 12.49 K/ul (4.8-10.8)
[2024-03-10 08:48] LABS: BUN Creatinine Ratio 32.1 (10-20); Calcium 9.6 mg/dl (8.6-10.3); Creatinine Clr Calc Pharmacy 20.3 ml/min; Est GFR (African American) 21.1 ml/min; Est GFR (Non-African American) 18.2 ml/min; Magnesium 2.1 mg/dl (1.7-2.4); Phosphorus 4.8 mg/dl (2.5-4.9); Potassium 4.7 mmol/L (3.5-5.1)
--- NOTE | 2024-03-10 15:56 | Hospitalist Progress Note ---
Date of Service March 10, 2024 Assessment & Plan (1) Acute on chronic HFrEF (heart failure with reduced ejection fraction): (2) Dyspnea on exertion: (3) Severe pulmonary hypertension: (4) Restrictive lung disease: (5) HTN (hypertension): (6) Hypoxia: (7) Nocturnal hypoxemia: (8) Stage 3b chronic kidney disease (CKD): Plan: Acute on chronic systolic CHF exacerbation Acute on chronic hypoxic respiratory failure Chronic oxygen dependency--on 2 L at bedtime Fluid overload due to above Severe pulmonary hypertension --Chest CT:Redemonstration of innumerable pulmonary nodules which are nonspecific but may represent sarcoidosis, pneumonitis, or other chronic infectious/inflammatory process. No superimposed pneumonia is definitely seen. Bilateral pleural effusions have slightly increased from prior exam. --ECHO: Left ventricle is mildly dilated. Mild concentric LVH. 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 Left ventricle systolic function is severely reduced. EF 20 -25 %. Mild mitral, tricuspid regurgitation. Right ventricular systolic pressure is severely elevated> 60 mmHg. (ECHO unchanged from prior) Appreciate cardiology input Monitor I's and O's, daily weight, fluid restriction Held IV Bumex as renal function worsening Saturating well on 2 L supplemental oxygen Metoprolol succinate dose adjusted per cardiology Monitor volume status closely Diuresis as per cardiology/nephrology - discussed w/ nephrology - bumex dose increased, also recommended palliative medicine consult -> pt made DNR/DNI Cr levels monitored Poor prognosis Right foot Wound/Osteomyelitis - MRI R foot w/o contrast obtained as outpt reviewed - showing early osteo at the 5th metatarsal head --S/P Right Foot Incision and Drainage to Bone by on 03/01/2024 -Wound cultures preliminary--probable skin chela Empirically on Rocephin, Dapto>>Rocephin only Appreciate podiatry input Continue wound care Cultures remain negative Leukocytosis resolved Appreciate ID input Will need PICC line, prolonged course of IV antibiotics per ID recommendations - ceftriaxone 2 g daily for a total duration of 6 weeks (counting to start from the day of surgery). Anticipated end date will be April 12, 2024. Continue current management Recent Rhino Infection Remains positive on bio fire since last discharge Monitor HLD Hold statin while on Dapto TAYA on CKD IV Baseline Cr ~2 Expected from IV diuretics/ATN Monitor renal function Avoid nephrotoxic agents as able Cr:2.9 today Anticipate he will have new baseline/ progression of CKD, nephrology following Mood Disorder Continue home medication DVT Px: Heparin SQ CODE STATUS: Discussed w/ palliative medicine and pt's daughter at the bedside - code status changed to DNR/DNI Admission and Anticipated Discharge Date Admission Date: February 27, 2024 Subjective Patient seen in follow up of CHF, TAYA on CKD , right foot OM Currently sitting up in chair in NAD, on suppl. O2 + abdominal bloating, leg swelling, + orthopnea- somewhat improved nephrology following - bumex dose was increased Palliative medicine consulted - code status changed to DNR/DNI - plan for poss. fam. meeting on Monday Pt currently denies any chest pain, dizziness, nausea, vomiting, abdominal pain also seen by cardiology, pulm. and podiatry during this hosp. stay. Pt's son present at the bedside today and updated Review of Systems Review of Systems: All systems reviewed & are unremarkable except as noted in Subjective Physical Exam Physical Exam: General Appearance: Thin, frail, elderly M in NAD, on suppl. O2 Head: NC/AT Eyes: normal inspection, EOMI Neck: supple Respiratory/Chest: Decreased breath sounds, basal rales, No accessory muscle use Cardiovascular: S1, S2, + murmur Abdomen/GI:Soft, Non tender, Bowel sounds present,+ abdominal hernia Extremities/Musculoskeletal:normal inspection, +edema, R foot in dressings Neurologic/Psych:AAOX3, answers appropriately, no facial asymmetry, moves extremities Skin: warm, dry Results & Data Results & Data Vital Signs (Past 12 Hours) Vital Signs Temp Pulse Pulse Resp BP Pulse Ox O2 Del Method 03/10/24 15:35 75 03/10/24 15:24 36.8 C 74 18 117/70 99 Nasal Cannula 03/10/24 10:53 36.6 C 78 20 118/65 100 Nasal Cannula 03/10/24 08:33 74 03/10/24 06:59 Nasal Cannula 03/10/24 06:59 36.5 C 79 16 117/66 100 Nasal Cannula O2 Flow Rate 03/10/24 15:35 03/10/24 15:24 3 03/10/24 10:53 2 03/10/24 08:33 03/10/24 06:59 3 03/10/24 06:59 3 Laboratory Results 03/10/24 Range/Units 07:57 WBC 12.49 H (4.8-10.8) K/ul RBC 3.37 L (4.70-6.10) M/uL Hgb 9.1 L (14.0-18.0) g/dl Hct 28.1 L (42.0-52.0) % MCV 83.4 (80.0-100.0) fL MCH 27.0 (25.0-34.0) pg MCHC 32.4 (32.0-36.0) g/dL RDW Std Deviation 46.6 H (36.4-46.3) fL RDW Coeff of Nehemias 15.5 H (11.5-14.5) % Plt Count 282 (130-400) K/uL MPV 10.3 (9.4-12.4) fL Sodium 132 L (136-145) mmol/L Potassium 4.7 (3.5-5.1) mmol/L Chloride 96 L (98-107) mmol/L Carbon Dioxide 27 (21-32) mmol/L Anion Gap 9 (3-11) BUN 94 H (6-23) mg/dl Creatinine 2.93 H (0.6-1.4) mg/dl Est Cr Clr Drug Dosing 20.3 ml/min Est GFR ( Amer) 21.1 ml/min Est GFR (Non-Af Amer) 18.2 ml/min BUN/Creatinine Ratio 32.1 H (10-20) Glucose 126 H (70-99(Fasting)) mg/dl Calcium 9.6 (8.6-10.3) mg/dl Phosphorus 4.8 (2.5-4.9) mg/dl Magnesium 2.1 (1.7-2.4) mg/dl Medications Administered Current Inpatient Medications Acetaminophen (Acetaminophen 325 Mg Tab) 650 mg PO Q4H PRN PRN Reason: Moderate Pain (Scale 4, 5, 6) Stop: 03/28/24 16:57 Last Admin: 03/08/24 20:26 Dose: 650 mg Allopurinol (Allopurinol 100 Mg Tab) 100 mg PO [facility] Stop: 03/29/24 08:59 Last Admin: 03/10/24 08:01 Dose: 100 mg Aspirin (Aspirin 81 Mg Ectab) 81 mg PO DAILY [facility] Stop: 03/29/24 08:59 Last Admin: 03/10/24 08:01 Dose: 81 mg Calcium Carbonate (Calcium Carbonate 500 Mg Chewable Tab) 500 mg PO QID PRN PRN Reason: Indigestion Stop: 04/03/24 22:53 Citalopram Hydrobromide (Citalopram 20 Mg Tab) [facility] [place] Stop: 03/29/24 08:59 Last Admin: 03/10/24 08:02 Dose: 20 mg Clopidogrel Bisulfate (Clopidogrel Bisulfate 75 Mg Tab) [facility] [place] Stop: 03/29/24 08:59 Last Admin: 03/10/24 08:02 Dose: 75 mg Famotidine (Famotidine 20 Mg Tab) 20 mg PO [facility] Stop: 03/29/24 08:59 Last Admin: 03/10/24 08:02 Dose: 20 mg Fluticasone Propionate (Fluticasone Propionate Na Spr 16 Gm Btl) 2 sprays NA [facility] Stop: 03/29/24 08:59 Last Admin: 03/10/24 08:03 Dose: 2 sprays Heparin Sodium (Porcine) (Heparin Sod 5,000 Unit/0.5 Ml Vial) 5,000 units SQ Q12 [facility] Stop: 03/29/24 20:59 Last Admin: 03/10/24 08:02 Dose: 5,000 units Ceftriaxone Sodium (Rocephin) 2,000 mg in 50 mls @ 100 mls/hr IV Q24H [facility] Stop: 04/10/24 15:59 Last Infusion: 03/09/24 15:48 Dose: Infused Bumetanide 2 mg/ Syringe 8 mls @ 4 mls/min IV BID@0900,1700 [facility] Stop: 04/06/24 10:29 Last Admin: 03/10/24 08:03 Dose: 4 mls/min Ipratropium [place] (Ipratropium [place] Hfa Inhaler) 2 puffs INH QIDR [facility] Stop: 03/28/24 18:59 Last Admin: 03/10/24 15:21 Dose: 2 puffs Isosorbide Mononitrate (Isosorbide [place] Extended Rel 60 Mg Tabcr) 60 mg PO QAM [facility] Stop: 03/29/24 08:59 Last Admin: 03/10/24 08:02 Dose: 60 mg Lactobacillus Acidophilus (Advanced Probiotic 625 Mg Capsule) 1,250 mg PO DAILY [facility] Stop: 04/05/24 15:59 Last Admin: 03/10/24 08:01 Dose: 1,250 mg Levalbuterol HCl (Levalbuterol 1.25 Mg/3 Ml Neb) 1.25 mg NEB Q4H PRN PRN Reason: Shortness Of Breath Or Wheezing Stop: 04/08/24 05:15 Last Admin: 03/09/24 09:31 Dose: 1.25 mg Metoprolol Succinate (Metoprolol Succ 25mg Ext Rel Tab) 25 mg PO QAM [facility] Stop: 03/28/24 15:59 Last Admin: 03/10/24 08:02 Dose: 25 mg Metoprolol Succinate (Metoprolol Succ 25mg Ext Rel Tab) 12.5 mg PO QPM [facility] Stop: 03/31/24 20:59 Last Admin: 03/09/24 21:59 Dose: 12.5 mg Mometasone Furoate (Mometasone Furoate 0.1% Oint 15 Gm Tube) 1 appln EXT DAILY [facility] Stop: 03/29/24 08:59 Last Admin: 03/10/24 08:03 Dose: 1 appln Multivitamins (Multivitamin Tab) 1 tab PO DAILY [facility] Stop: 03/29/24 08:59 Last Admin: 03/10/24 08:01 Dose: 1 tab Nitroglycerin (Nitroglycerin Sl 0.4 Mg/Tab Tab) 0.4 mg SL Q5M PRN PRN Reason: chest pain Stop: 03/28/24 15:30 Ondansetron HCl (Ondansetron Inj 2 Mg/Ml 2 Ml Vial) 4 mg IV Q4H PRN PRN Reason: Nausea And Vomiting Stop: 03/28/24 16:57 Pantoprazole Sodium (Pantoprazole 40 Mg Tab) 40 mg PO QAM [facility] Stop: 03/29/24 08:59 Last Admin: 03/10/24 08:01 Dose: 40 mg Potassium Chloride (Potassium Chloride Crtab 20 Meq Tabcr) 20 meq PO BID [facility] Stop: 04/06/24 20:59 Last Admin: 03/10/24 08:02 Dose: 20 meq Rosuvastatin Calcium (Rosuvastatin Calcium 10 Mg Tab) 10 mg PO HS [facility] Stop: 03/28/24 20:59 Last Admin: 03/09/24 21:59 Dose: 10 mg Sodium Chloride (Sodium Chloride 0.65% Na Soln 45 Ml ([place])) 1 sprays NA UD PRN PRN Reason: Congestion Stop: 03/28/24 15:30 Tamsulosin HCl (Tamsulosin Hcl 0.4 Mg Cap) 0.4 mg PO [facility] Stop: 03/28/24 20:59 Last Admin: 03/10/24 08:01 Dose: 0.4 mg
[2024-03-11 06:22] LABS: Hematocrit (blood only) 27.5 % (42.0-52.0); Mean Corpuscular Hemoglobin 26.9 pg (25.0-34.0); Mean Corpuscular Hgb Conc 32.7 g/dL (32.0-36.0); Mean Corpuscular Volume 82.3 fL (80.0-100.0); Mean Platelet Volume 10.6 fL (9.4-12.4); Platelet Count 300 K/uL (130-400); RDW Coefficient of Variation 15.4 % (11.5-14.5); RDW Standard Deviation 46.1 fL (36.4-46.3); Red Blood Count 3.34 M/uL (4.70-6.10); White Blood Count 12.62 K/ul (4.8-10.8)
[2024-03-11 06:31] LABS: BUN Creatinine Ratio 31.2 (10-20); Calcium 9.6 mg/dl (8.6-10.3); Creatinine Clr Calc Pharmacy 19.1 ml/min; Est GFR (African American) 19.7 ml/min; Magnesium 2.1 mg/dl (1.7-2.4); Phosphorus 5.1 mg/dl (2.5-4.9); Potassium 4.9 mmol/L (3.5-5.1)
--- NOTE | 2024-03-11 12:02 | Palliative Family Discussion ---
Date of Service March 11, 2024 Patient Directed Conference Time of Meetinam-1200pm Participants: Katrin Cheema DNP Patient participation: yes Patient Support System: dtr, robbie sunshine Other Healthcare Provider Participation: None Meeting Location: bedside Advanced Directive available: yes, pt affirms DNR/DNI The patient's surrogate medical decision maker participated: yes dtr is POA A face to face ACP family meeting was held for JONAH PENA. This meeting was necessary for determining the appropriate course of treatment. Topics of Discussion Topics of Discussion: 1. progressive MSOF, incurable progression of chronic illness, now terminal stages; OM of right foot will not heal, slowly shutting down, declining PS 2. pt desires return home, would like hospice. family supportive, all live within 5 miles and can help care for him. pt sates he does not want to return hospital and he will not go to SNF or rehab trial 3. I provided education about the hospice benefit: an interdisciplinary program offered by nurses, nurses aides, social workers, chaplains and a medical technologist hematology for patients with a terminal condition and a life expectancy of less than 6 months. This is covered by Medicare at 100%/no out of pocket expense to patient and all meds/supplies needed by patient for the reason they are on hospice are paid for/covered by hospice. The goal is assure quality of life of the patient in their home setting (home, skilled nursing, inpatient hospice setting) by providing symptoms management, psychosocial and spiritual support. However, they cannot offer 24 hours care and if the family is unable to provide that care, they will have to consider personal care with out of pocket cost vs. skilled nursing placement. We discussed the goals of hospice as a patient service and the goals of care; we discussed EOL trajectories and transitions taz the emotional impact of realizing mortality as a concrete reality from prior abstract considerations. Pt was reassured that no matter where they are along this trajectory, they are not alone - their medical team will remain by their side through their journey. Discussed the pros/cons of accepting help when especially weakened and distressed by pain-which would also help provide relief/decrease caregiver burden/strain. Other Content of Meetin. Opportunity given for participants to speak and ask questions. 2. Participants were assured of attention to patient comfort. 3. Reassurance provided. 4. Support was provided for informed, good-byron decisions. 5. Emotions expressed by family were acknowledged and addressed. 6. Nursing notified. Home with hospice 7. Plan of Care: complete current treatment, no escalation, home with hospice - CM to coordinate I will sign off, pt's GOC and ACP have been delineated as above and at this time, he denies any acute symptom mgt needs. TS 45min Thank you for allowing us to participate in the ongoing care of this patient. Please page with any additional concerns. Zoraida Cheema DNP Director, Palliative Medicine
[2024-03-11] MEDS ORDERED: CHLORASEPTIC (PHENOL) 1.4% SOLN 180 ML BTL MT PRN (13:58)
--- NOTE | 2024-03-11 14:18 | Nephrology Progress Note ---
Date of Service March 11, 2024 Assessment & Plan Admission and Anticipated Discharge Date Admission Date: February 27, 2024 Subjective Assessment & Plan (1) Acute kidney injury superimposed on CKD: Plan: nonoliguric stage 1 TAYA on CKD4. However I think this is more of his new baseline creat baseline creatinine about generally 2.3 on 2 checks just prior to admission late last month. Current rise in creat is most likely ATN related to infection, to abtx, to diuretics. Currently has Sig volume overload with Hypervolemic Hyponatremia. he is Symptomatic from this and has SOB. Still has a lot of edema with true fluid retention. worth noting that creat has been rising even before the higher dose of Bumex and rate of change was about same. he will not come out with previous creat level. having CKD progression w/ recent clinical events (and markedly worse cardiac function past 6 mos) He has severe cardiac as well as Lung Dz--EF 20%, Age, RLD and severe Pulm HTN---I did review Palliative med Consult. Plan is to go home on hospice. He does not want to come back to hospital or go to SNF. For discharge can use torsemide 80 bid and kcl 20 daily. No need for nephrology f/u. Subjective massive edema and c/o SOb and orthopnea. urine is slightly more and ? more dilute ? Review of Systems Review of Systems: All systems reviewed & are unremarkable except as noted in Subjective Physical Exam Constitutional: well developed, + frail appearing and comfortable; no acute distress Eyes: EOM intact bilaterally ENMT: Ears: no external ear abnormality Nose: no external nose abnormality Mouth: + dry oral mucous membranes Neck: no nuchal rigidity Respiratory: normal respiratory effort (on 02NC) Auscultation: + diminished lung sounds (markedly) Cardiovascular: Rate/Rhythm: regular rate and regular rhythm Extremities: + edema (1+) Gastrointestinal (Abdomen): Inspection/Auscultation: normal bowel sounds Percussion/Palpation: abdomen soft; abdomen nontender Musculoskeletal: Extremities: strength 5/5 throughout Skin: no rashes, warm and dry Psychiatric: Orientation: alert and oriented x 3 Insight: + limited insight Results & Data Vital Signs (Past 12 Hours) Vital Signs Temp Pulse Pulse Resp BP Pulse Ox O2 Del Method 03/11/24 11:11 36.4 C L 78 22 104/64 99 Nasal Cannula 03/11/24 08:01 36.4 C L 64 19 116/72 97 Nasal Cannula 03/11/24 07:30 74 16 100 Nasal Cannula 03/11/24 07:00 71 03/11/24 03:16 36.8 C 83 18 128/66 97 Nasal Cannula O2 Flow Rate 03/11/24 11:11 3 03/11/24 08:01 03/11/24 07:30 2 03/11/24 07:00 03/11/24 03:16 3.0
--- NOTE | 2024-03-11 15:35 | Hospitalist Progress Note ---
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 with reduced ejection fraction): (2) Dyspnea on exertion: (3) Severe pulmonary hypertension: (4) Restrictive lung disease: (5) HTN (hypertension): (6) Hypoxia: (7) Nocturnal hypoxemia: (8) Stage 3b chronic kidney disease (CKD): Plan: Acute on chronic systolic CHF exacerbation Acute on chronic hypoxic respiratory failure Chronic oxygen dependency--on 2 L at bedtime Fluid overload due to above Severe pulmonary hypertension --Chest CT:Redemonstration of innumerable pulmonary nodules which are nonspecific but may represent sarcoidosis, pneumonitis, or other chronic infectious/inflammatory process. No superimposed pneumonia is definitely seen. Bilateral pleural effusions have slightly increased from prior exam. --ECHO: Left ventricle is mildly dilated. Mild concentric LVH. 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 Left ventricle systolic function is severely reduced. EF 20 -25 %. Mild mitral, tricuspid regurgitation. Right ventricular systolic pressure is severely elevated> 60 mmHg. (ECHO unchanged from prior) Appreciate cardiology input Monitor I's and O's, daily weight, fluid restriction Held IV Bumex as renal function worsening Saturating well on 2 L supplemental oxygen Metoprolol succinate dose adjusted per cardiology Monitor volume status closely Diuresis as per cardiology/nephrology - discussed w/ nephrology - bumex dose increased, also recommended palliative medicine consult -> pt made DNR/DNI Cr levels monitored Poor prognosis Right foot Wound/Osteomyelitis - MRI R foot w/o contrast obtained as outpt reviewed - showing early osteo at the 5th metatarsal head --S/P Right Foot Incision and Drainage to Bone by on 03/01/2024 -Wound cultures preliminary--probable skin chela Empirically on Rocephin, Dapto>>Rocephin only Appreciate podiatry input Continue wound care Cultures remain negative Leukocytosis resolved Appreciate ID input Will need PICC line, prolonged course of IV antibiotics per ID recommendations - ceftriaxone 2 g daily for a total duration of 6 weeks (counting to start from the day of surgery). Anticipated end date will be April 12, 2024. 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 then fam. meeting and plan to dc home w/ hospice Admission and Anticipated Discharge Date Admission Date: February 27, 2024 Subjective Patient seen in follow up of CHF, TAYA on CKD , right foot OM Currently sitting up in chair in [facility], on suppl. O2 + abdominal bloating, leg swelling, + orthopnea- somewhat improved nephrology following and discussed with plan to switch to torsemide on discharge Palliative medicine consulted - code status changed to DNR/DNI - plan fam. meeting later today -> notified pt and family interested in home hospice Pt currently denies any chest pain, dizziness, nausea, vomiting, abdominal pain also seen by cardiology, pulm. and podiatry during this hosp. stay. Review of Systems Review of Systems: All systems reviewed & are unremarkable except as noted in Subjective Physical Exam Physical Exam: General Appearance: Thin, frail, elderly M in NAD, on suppl. O2 Head: NC/AT Eyes: normal inspection, EOMI Neck: supple Respiratory/Chest: Decreased breath sounds, basal rales, No accessory muscle use Cardiovascular: S1, S2, + murmur Abdomen/GI:Soft, Non tender, Bowel sounds present,+ abdominal hernia Extremities/Musculoskeletal:normal inspection, +edema, R foot in dressings Neurologic/Psych:AAOX3, answers appropriately, no facial asymmetry, moves extremities Skin: warm, dry Results & Data Results & Data Vital Signs (Past 12 Hours) Vital Signs Temp Pulse Pulse Resp BP Pulse Ox O2 Del Method 03/11/24 15:18 36.4 C L 78 20 114/69 100 Nasal Cannula 03/11/24 11:11 36.4 C L 78 22 104/64 99 Nasal Cannula 03/11/24 08:01 36.4 C L 64 19 116/72 97 Nasal Cannula 03/11/24 07:30 74 16 100 Nasal Cannula 03/11/24 07:00 71 O2 Flow Rate 03/11/24 15:18 3 03/11/24 11:11 3 03/11/24 08:01 03/11/24 07:30 2 03/11/24 07:00 Laboratory Results 03/11/24 Range/Units 05:35 WBC 12.62 H (4.8-10.8) K/ul RBC 3.34 L (4.70-6.10) M/uL Hgb 9.0 L (14.0-18.0) g/dl Hct 27.5 L (42.0-52.0) % MCV 82.3 (80.0-100.0) fL MCH 26.9 (25.0-34.0) pg MCHC 32.7 (32.0-36.0) g/dL RDW Std Deviation 46.1 (36.4-46.3) fL RDW Coeff of Nehemias 15.4 H (11.5-14.5) % Plt Count 300 (130-400) K/uL MPV 10.6 (9.4-12.4) fL Sodium 132 L (136-145) mmol/L Potassium 4.9 (3.5-5.1) mmol/L Chloride 97 L (98-107) mmol/L Carbon Dioxide 25 (21-32) mmol/L Anion Gap 10 (3-11) BUN 97 H (6-23) mg/dl Creatinine 3.11 H (0.6-1.4) mg/dl Est Cr Clr Drug Dosing 19.1 ml/min Est GFR ( Amer) 19.7 ml/min Est GFR (Non-Af Amer) 17.0 ml/min BUN/Creatinine Ratio 31.2 H (10-20) Glucose 129 H (70-99(Fasting)) mg/dl Calcium 9.6 (8.6-10.3) mg/dl Phosphorus 5.1 H (2.5-4.9) mg/dl Magnesium 2.1 (1.7-2.4) mg/dl Medications Administered Current Inpatient Medications Acetaminophen (Acetaminophen 325 Mg Tab) 650 mg PO Q4H PRN PRN Reason: Moderate Pain (Scale 4, 5, 6) Stop: 03/28/24 16:57 Last Admin: 03/11/24 03:28 Dose: 650 mg Allopurinol (Allopurinol 100 Mg Tab) [facility] [place] Stop: 03/29/24 08:59 Last Admin: 03/11/24 08:41 Dose: 100 mg Aspirin (Aspirin 81 Mg Ectab) 81 mg PO DAILY [facility] Stop: 03/29/24 08:59 Last Admin: 03/11/24 08:41 Dose: 81 mg Calcium Carbonate (Calcium Carbonate 500 Mg Chewable Tab) 500 mg PO QID PRN PRN Reason: Indigestion Stop: 04/03/24 22:53 Citalopram Hydrobromide (Citalopram 20 Mg Tab) 20 mg PO [facility] Stop: 03/29/24 08:59 Last Admin: 03/11/24 08:41 Dose: 20 mg Clopidogrel Bisulfate (Clopidogrel Bisulfate 75 Mg Tab) 75 mg PO [facility] Stop: 03/29/24 08:59 Last Admin: 03/11/24 08:42 Dose: 75 mg Famotidine (Famotidine 20 Mg Tab) 20 mg PO [facility] Stop: 03/29/24 08:59 Last Admin: 03/11/24 08:41 Dose: 20 mg Fluticasone Propionate (Fluticasone Propionate Na Spr 16 Gm Btl) 2 sprays NA [facility] Stop: 03/29/24 08:59 Last Admin: 03/11/24 08:42 Dose: 2 sprays Heparin Sodium (Porcine) (Heparin Sod 5,000 Unit/0.5 Ml Vial) 5,000 units SQ Q12 [facility] Stop: 03/29/24 20:59 Last Admin: 03/11/24 08:43 Dose: 5,000 units Ceftriaxone Sodium (Rocephin) 2,000 mg in 50 mls @ 100 mls/hr IV Q24H [facility] Stop: 04/10/24 15:59 Last Infusion: 03/10/24 17:06 Dose: Infused Bumetanide 2 mg/ Syringe 8 mls @ 4 mls/min IV BID@0900,1700 [facility] Stop: 04/06/24 10:29 Last Admin: 03/11/24 08:42 Dose: 4 mls/min Ipratropium [place] (Ipratropium [place] Hfa Inhaler) 2 puffs INH QIDR [facility] Stop: 03/28/24 18:59 Last Admin: 03/11/24 15:30 Dose: 2 puffs Isosorbide Mononitrate (Isosorbide [place] Extended Rel 60 Mg Tabcr) 60 mg PO QAM [facility] Stop: 03/29/24 08:59 Last Admin: 03/11/24 08:41 Dose: 60 mg Lactobacillus Acidophilus (Advanced Probiotic 625 Mg Capsule) 1,250 mg PO DAILY [facility] Stop: 04/05/24 15:59 Last Admin: 03/11/24 08:43 Dose: 1,250 mg Levalbuterol HCl (Levalbuterol 1.25 Mg/3 Ml Neb) 1.25 mg NEB Q4H PRN PRN Reason: Shortness Of Breath Or Wheezing Stop: 04/08/24 05:15 Last Admin: 03/09/24 09:31 Dose: 1.25 mg Metoprolol Succinate (Metoprolol Succ 25mg Ext Rel Tab) 25 mg PO QAM [facility] Stop: 03/28/24 15:59 Last Admin: 03/11/24 08:41 Dose: 25 mg Metoprolol Succinate (Metoprolol Succ 25mg Ext Rel Tab) 12.5 mg PO QPM [facility] Stop: 03/31/24 20:59 Last Admin: 03/10/24 20:01 Dose: 12.5 mg Mometasone Furoate (Mometasone Furoate 0.1% Oint 15 Gm Tube) 1 appln EXT DAILY [facility] Stop: 03/29/24 08:59 Last Admin: 03/11/24 08:43 Dose: 1 appln Multivitamins (Multivitamin Tab) 1 tab PO DAILY [facility] Stop: 03/29/24 08:59 Last Admin: 03/11/24 08:41 Dose: 1 tab Nitroglycerin (Nitroglycerin Sl 0.4 Mg/Tab Tab) 0.4 mg SL Q5M PRN PRN Reason: chest pain Stop: 03/28/24 15:30 Ondansetron HCl (Ondansetron Inj 2 Mg/Ml 2 Ml Vial) 4 mg IV Q4H PRN PRN Reason: Nausea And Vomiting Stop: 03/28/24 16:57 Pantoprazole Sodium (Pantoprazole 40 Mg Tab) 40 mg PO QAM [facility] Stop: 03/29/24 08:59 Last Admin: 03/11/24 08:41 Dose: 40 mg Phenol (Chloraseptic (Phenol) 1.4% Soln 180 Ml Btl) 2 sprays MT QID PRN PRN Reason: Pain Stop: 04/10/24 13:57 Potassium Chloride (Potassium Chloride Crtab 20 Meq Tabcr) 20 meq PO BID [facility] Stop: 04/06/24 20:59 Last Admin: 03/11/24 08:41 Dose: 20 meq Rosuvastatin Calcium (Rosuvastatin Calcium 10 Mg Tab) 10 mg PO HS [facility] Stop: 03/28/24 20:59 Last Admin: 03/10/24 20:01 Dose: 10 mg Sodium Chloride (Sodium Chloride 0.65% Na Soln 45 Ml ([place])) 1 sprays NA UD PRN PRN Reason: Congestion Stop: 03/28/24 15:30 Tamsulosin HCl (Tamsulosin Hcl 0.4 Mg Cap) 0.4 mg PO [facility] Stop: 03/28/24 20:59 Last Admin: 03/11/24 08:42 Dose: 0.4 mg
--- NOTE | 2024-03-11 16:52 | Operative Report ---
Post Operative Report Pre & Post Diagnosis Operation Date: 03/01/24 07:15 Pre-Op Diagnosis: Right foot osteomyelitis Post-Op Diagnosis: Right foot osteomyelitis I identified the patient and participated in the time-out.: Yes Procedure Operation Date: 03/01/24 07:15 Actual Procedures p Right Foot Incision and Drainage to Bone(Right) - Teresita Bass DPM Surgeon Teresita Bass DPM Director Of Creative Services none Estimated Blood Loss 5 Findings Consistent with Post-Op Diagnosis Specimens 1. right 5th metatarsal head and base of 5th proximal phalanx bone sent for aerobic and anaerobic cultures with gram stain and 2. Right 5th metatarsal head sent to pathology. Anesthesia Type MAC Complications none Disposition Accompanied Patient To Recovery: Yes Indications Patient is a 88 year old male with non healing wound overlying the right lateral forefoot aspect. Patient has been under the care at [facility] for his right foot ulcer. Patients home health nurse was concerned with his breathing difficulty, right lower extremity swelling, and worsening of the right foot wound and sent him to [facility] emergency department. Patient had an MRI done about a week ago with results indicating osteomyelitis of his right 5th metatarsal head. It was recommended incision and drainage to the level of bone with resecting infected bone. Discussed the possible risks including but not limited to infection, swelling, transfer lesions, wound dehiscence, blood clots, deep venous thrombosis, pulmonary embolism, chronic pain, nerve injury, numbness, loss of limb, loss of life, failure of procedure and need for additional procedures. Discussed risks, benefits, and alternatives to surgery. Patient states he understands and wants to proceed. Description of Procedure The patient was brought back into the operating room and placed on the OR table in the supine/sitting position. A time was performed in order to correctly identify the patient, planned procedure, and correct side of limb. MAC was performed per the anesthesiologist. 20 cc of 0.25% marcaine plain was administered as a reverse cochran block under aseptic technique. A well padded right ankle tourniquet was utilized. The right lower extremity was prepped, scrubbed, draped in the usual aseptic manner. Attention was then directed to the right lateral forefoot at the level of the nonhealing wound. The wound approximately 1.5cm by 1.0 cm by 0.8 cm. The wound was excised with a 15 blade down to the level of bone. Copious amount of saline was utilized to irrigate the surgical wound. A ronguer was utilized to debride the exposed bone of the base of the proximal phalanx of the 5th toe. This was bone was sent for cultures. Then the skin incision was extended with a 15 blade in a linear fashion both proximal and distal to the wound to allow for adequate skin closure. A sagittal saw was utilized to resect the head of the 5th metatarsal in a distal dorsal proximal plantar blade orientation. The 5th metatarsal head was removed and divided into two specimens for cultures and pathology. Copious amount of saline was used for irrigation. All bleeders were cauterized as necessary. Fluoroscopy was utilized to ensure adequate resection of the 5th metatarsal head was achieved. Deep closure was performed with 4-0 monocryl. The skin was coapted with 4-0 nylon in retention type suture fashion. The tourniquet was deflated and an immediate hyperemia was noted to the right foot. The incision was dressed with xeroform, 4x4 gauze, kerlix, and Wilbur bandage. The patient tolerated the procedure and anesthesia well with all vital signs stable and vascular status intact to the right foot. Attention was then directed to the sterile back table to obtain 2 specimens as follows: 1. right 5th metatarsal head and base of 5th proximal phalanx bone sent for aerobic and anaerobic cultures with gram stain and 2. Right 5th metatarsal head sent to pathology. The patient was transferred to recovery for brief post operative monitoring and will be transferred back to the floor for continued medical management. Recommendations for the patient to be discharged on oral antibiotics and to follow up with our office in 1 week. The patient should keep the bandage dry, clean, and intact for 1 week until first post op visit in office. The patient may ambulate as tolerated in post op shoe. If the patient is not ready for discharge, then podiatry will do a bandage change and then remove the sutures at 2 weeks. The patient is cleared for discharged per podiatry and to be discharged when stable per medicine. I attest to the content of the Intraoperative Record and any orders documented therein. Any exceptions are noted below.
--- NOTE | 2024-03-12 17:08 | Hospitalist Progress Note ---
Date of Service March 12, 2024 Assessment & Plan (1) Acute on chronic HFrEF (heart failure with reduced ejection fraction): (2) Dyspnea on exertion: (3) Severe pulmonary hypertension: (4) Restrictive lung disease: (5) HTN (hypertension): (6) Hypoxia: (7) Nocturnal hypoxemia: (8) Stage 3b chronic kidney disease (CKD): Plan: Acute on chronic systolic CHF exacerbation Acute on chronic hypoxic respiratory failure Chronic oxygen dependency--on 2 L at bedtime Fluid overload due to above Severe pulmonary hypertension --Chest CT:Redemonstration of innumerable pulmonary nodules which are nonspecific but may represent sarcoidosis, pneumonitis, or other chronic infectious/inflammatory process. No superimposed pneumonia is definitely seen. Bilateral pleural effusions have slightly increased from prior exam. --ECHO: Left ventricle is mildly dilated. Mild concentric LVH. 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 Left ventricle systolic function is severely reduced. EF 20 -25 %. Mild mitral, tricuspid regurgitation. Right ventricular systolic pressure is severely elevated> 60 mmHg. (ECHO unchanged from prior) Appreciate cardiology input Monitor I's and O's, daily weight, fluid restriction Held IV Bumex as renal function worsening Saturating well on 2 L supplemental oxygen Metoprolol succinate dose adjusted per cardiology Monitor volume status closely Diuresis as per cardiology/nephrology - discussed w/ nephrology - bumex dose increased, also recommended palliative medicine consult -> pt made DNR/DNI Cr levels monitored Poor prognosis Right foot Wound/Osteomyelitis - MRI R foot w/o contrast obtained as outpt reviewed - showing early osteo at the 5th metatarsal head --S/P Right Foot Incision and Drainage to Bone by on 03/01/2024 -Wound cultures preliminary--probable skin chela Empirically on Rocephin, Dapto>>Rocephin only Appreciate podiatry input Continue wound care Cultures remain negative Leukocytosis resolved Appreciate ID input Will need PICC line, prolonged course of IV antibiotics per ID recommendations - ceftriaxone 2 g daily for a total duration of 6 weeks (counting to start from the day of surgery). Anticipated end date will be April 12, 2024. 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 then fam. meeting and plan to dc home w/ hospice Admission and Anticipated Discharge Date Admission Date: February 27, 2024 Subjective Patient seen in follow up of CHF, TAYA on CKD , right foot OM Currently sitting up in chair in [facility], on suppl. O2 + abdominal bloating, leg swelling, + orthopnea- somewhat improved nephrology following and discussed with plan to switch to torsemide on discharge Palliative medicine consulted - code status changed to DNR/DNI - also had fam. meeting yesterday -> interested in home hospice -plan to DC tmrw Pt currently denies any chest pain, dizziness, nausea, vomiting, abdominal pain also seen by cardiology, pulm. and podiatry during this hosp. stay. Review of Systems Review of Systems: All systems reviewed & are unremarkable except as noted in Subjective Physical Exam Physical Exam: General Appearance: Thin, frail, elderly M in NAD, on suppl. O2 Head: NC/AT Eyes: normal inspection, EOMI Neck: supple Respiratory/Chest: Decreased breath sounds, basal rales, No accessory muscle use Cardiovascular: S1, S2, + murmur Abdomen/GI:Soft, Non tender, Bowel sounds present,+ abdominal hernia Extremities/Musculoskeletal:normal inspection, +edema, R foot in dressings Neurologic/Psych:AAOX3, answers appropriately, no facial asymmetry, moves extremities Skin: warm, dry Results & Data Results & Data Vital Signs (Past 12 Hours) Vital Signs Temp Pulse Pulse Pulse Resp BP Pulse Ox 03/12/24 16:46 82 03/12/24 16:45 36.4 C L 90 18 145/84 H 100 03/12/24 14:34 86 16 98 03/12/24 12:57 03/12/24 11:58 36.6 C 77 16 114/72 100 03/12/24 10:41 82 16 98 03/12/24 08:00 36.4 C L 80 18 121/70 100 03/12/24 07:49 77 18 98 03/12/24 07:38 81 O2 Del Method O2 Flow Rate 03/12/24 16:46 03/12/24 16:45 Nasal Cannula 3 03/12/24 14:34 Nasal Cannula 2 03/12/24 12:57 Nasal Cannula 3 03/12/24 11:58 Nasal Cannula 3 03/12/24 10:41 Nasal Cannula 2 03/12/24 08:00 Nasal Cannula 3 03/12/24 07:49 Nasal Cannula 3 03/12/24 07:38 Medications Administered Current Inpatient Medications Acetaminophen (Acetaminophen 325 Mg Tab) 650 mg PO Q4H PRN PRN Reason: Moderate Pain (Scale 4, 5, 6) Stop: 03/28/24 16:57 Last Admin: 03/11/24 16:36 Dose: 650 mg Allopurinol (Allopurinol 100 Mg Tab) 100 mg PO [facility] Stop: 03/29/24 08:59 Last Admin: 03/12/24 09:40 Dose: 100 mg Aspirin (Aspirin 81 Mg Ectab) 81 mg PO DAILY [facility] Stop: 03/29/24 08:59 Last Admin: 03/12/24 09:41 Dose: 81 mg Calcium Carbonate (Calcium Carbonate 500 Mg Chewable Tab) 500 mg PO QID PRN PRN Reason: Indigestion Stop: 04/03/24 22:53 Citalopram Hydrobromide (Citalopram 20 Mg Tab) 20 mg PO [facility] Stop: 03/29/24 08:59 Last Admin: 03/12/24 09:42 Dose: 20 mg Clopidogrel Bisulfate (Clopidogrel Bisulfate 75 Mg Tab) 75 mg PO [facility] Stop: 03/29/24 08:59 Last Admin: 03/12/24 09:44 Dose: 75 mg Famotidine (Famotidine 20 Mg Tab) 20 mg PO [facility] Stop: 03/29/24 08:59 Last Admin: 03/12/24 09:41 Dose: 20 mg Fluticasone Propionate (Fluticasone Propionate Na Spr 16 Gm Btl) 2 sprays NA [facility] Stop: 03/29/24 08:59 Last Admin: 03/12/24 09:39 Dose: 2 sprays Heparin Sodium (Porcine) (Heparin Sod 5,000 Unit/0.5 Ml Vial) 5,000 units SQ Q12 [facility] Stop: 03/29/24 20:59 Last Admin: 03/12/24 09:41 Dose: 5,000 units Ceftriaxone Sodium (Rocephin) 2,000 mg in 50 mls @ 100 mls/hr IV Q24H [facility] Stop: 04/10/24 15:59 Last Infusion: 03/11/24 17:09 Dose: Infused Bumetanide 2 mg/ Syringe 8 mls @ 4 mls/min IV BID@0900,1700 [facility] Stop: 04/06/24 10:29 Last Admin: 03/12/24 09:39 Dose: 4 mls/min Ipratropium [place] (Ipratropium [place] Hfa Inhaler) 2 puffs INH QIDR [facility] Stop: 03/28/24 18:59 Last Admin: 03/12/24 14:34 Dose: 2 puffs Isosorbide Mononitrate (Isosorbide [place] Extended Rel 60 Mg Tabcr) 60 mg PO QAM [facility] Stop: 03/29/24 08:59 Last Admin: 03/12/24 09:40 Dose: 60 mg Lactobacillus Acidophilus (Advanced Probiotic 625 Mg Capsule) 1,250 mg PO DAILY [facility] Stop: 04/05/24 15:59 Last Admin: 03/12/24 09:40 Dose: 1,250 mg Levalbuterol HCl (Levalbuterol 1.25 Mg/3 Ml Neb) 1.25 mg NEB Q4H PRN PRN Reason: Shortness Of Breath Or Wheezing Stop: 04/08/24 05:15 Last Admin: 03/09/24 09:31 Dose: 1.25 mg Metoprolol Succinate (Metoprolol Succ 25mg Ext Rel Tab) 25 mg PO QAM [facility] Stop: 03/28/24 15:59 Last Admin: 03/11/24 08:41 Dose: 25 mg Metoprolol Succinate (Metoprolol Succ 25mg Ext Rel Tab) 12.5 mg PO QPM [facility] Stop: 03/31/24 20:59 Last Admin: 03/11/24 20:10 Dose: 12.5 mg Mometasone Furoate (Mometasone Furoate 0.1% Oint 15 Gm Tube) 1 appln EXT DAILY [facility] Stop: 03/29/24 08:59 Last Admin: 03/12/24 09:42 Dose: 1 appln Multivitamins (Multivitamin Tab) 1 tab PO DAILY [facility] Stop: 03/29/24 08:59 Last Admin: 03/12/24 09:42 Dose: 1 tab Nitroglycerin (Nitroglycerin Sl 0.4 Mg/Tab Tab) 0.4 mg SL Q5M PRN PRN Reason: chest pain Stop: 03/28/24 15:30 Ondansetron HCl (Ondansetron Inj 2 Mg/Ml 2 Ml Vial) 4 mg IV Q4H PRN PRN Reason: Nausea And Vomiting Stop: 03/28/24 16:57 Pantoprazole Sodium (Pantoprazole 40 Mg Tab) 40 mg PO QAM [facility] Stop: 03/29/24 08:59 Last Admin: 03/12/24 09:40 Dose: 40 mg Phenol (Chloraseptic (Phenol) 1.4% Soln 180 Ml Btl) 2 sprays MT QID PRN PRN Reason: Pain Stop: 04/10/24 13:57 Potassium Chloride (Potassium Chloride Crtab 20 Meq Tabcr) 20 meq PO BID [facility] Stop: 04/06/24 20:59 Last Admin: 03/12/24 09:42 Dose: 20 meq Rosuvastatin Calcium (Rosuvastatin Calcium 10 Mg Tab) 10 mg PO HS [facility] Stop: 03/28/24 20:59 Last Admin: 03/11/24 20:08 Dose: 10 mg Sodium Chloride (Sodium Chloride 0.65% Na Soln 45 Ml ([place])) 1 sprays NA UD PRN PRN Reason: Congestion Stop: 03/28/24 15:30 Tamsulosin HCl (Tamsulosin Hcl 0.4 Mg Cap) 0.4 mg PO AMHS [facility] Stop: 03/28/24 20:59 Last Admin: 03/12/24 09:40 Dose: 0.4 mg
--- NOTE | 2024-03-13 08:32 | Hospitalist Progress Note ---
Date of Service March 13, 2024 Assessment & Plan (1) Acute on chronic HFrEF (heart failure with reduced ejection fraction): (2) Dyspnea on exertion: (3) Severe pulmonary hypertension: (4) Restrictive lung disease: (5) HTN (hypertension): (6) Hypoxia: (7) Nocturnal hypoxemia: (8) Stage 3b chronic kidney disease (CKD): Plan: Acute on chronic systolic CHF exacerbation Acute on chronic hypoxic respiratory failure Chronic oxygen dependency--on 2 L at bedtime Fluid overload due to above Severe pulmonary hypertension --Chest CT:Redemonstration of innumerable pulmonary nodules which are nonspecific but may represent sarcoidosis, pneumonitis, or other chronic infectious/inflammatory process. No superimposed pneumonia is definitely seen. Bilateral pleural effusions have slightly increased from prior exam. --ECHO: Left ventricle is mildly dilated. Mild concentric LVH. 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 Left ventricle systolic function is severely reduced. EF 20 -25 %. Mild mitral, tricuspid regurgitation. Right ventricular systolic pressure is severely elevated> 60 mmHg. (ECHO unchanged from prior) Appreciate cardiology input Monitor I's and O's, daily weight, fluid restriction Held IV Bumex as renal function worsening Saturating well on 2 L supplemental oxygen Metoprolol succinate dose adjusted per cardiology Monitor volume status closely Diuresis as per cardiology/nephrology - discussed w/ nephrology - bumex dose increased, also recommended palliative medicine consult -> pt made DNR/DNI Cr levels monitored Poor prognosis Right foot Wound/Osteomyelitis - MRI R foot w/o contrast obtained as outpt reviewed - showing early osteo at the 5th metatarsal head --S/P Right Foot Incision and Drainage to Bone by on 03/01/2024 -Wound cultures preliminary--probable skin chela Empirically on Rocephin, Dapto>>Rocephin only Appreciate podiatry input Continue wound care Cultures remain negative Leukocytosis resolved Appreciate ID input Will need PICC line, prolonged course of IV antibiotics per ID recommendations - ceftriaxone 2 g daily for a total duration of 6 weeks (counting to start from the day of surgery). Anticipated end date will be April 12, 2024. 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 then fam. meeting and plan to dc home w/ hospice Admission and Anticipated Discharge Date Admission Date: February 27, 2024 Results & Data Results & Data Vital Signs (Past 12 Hours) Vital Signs Temp Pulse Pulse Pulse Resp BP Pulse Ox 03/13/24 07:36 36.4 C L 85 14 112/73 100 03/13/24 07:22 82 18 99 03/13/24 07:16 89 03/12/24 23:10 36.6 C 90 18 106/72 98 03/12/24 22:41 92 H O2 Del Method O2 Flow Rate 03/13/24 07:36 Nasal Cannula 2 03/13/24 07:22 Nasal Cannula 3 03/13/24 07:16 03/12/24 23:10 Nasal Cannula 2 03/12/24 22:41
--- NOTE | 2024-03-13 12:44 | Discharge Summary ---
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 Pt was discharged home with hospice services on 03/13/24. He was previously treated for the following: Acute on chronic systolic CHF exacerbation Acute on chronic hypoxic respiratory failure Chronic oxygen dependency--on 2 L at bedtime Fluid overload due to above Severe pulmonary hypertension --Chest CT:Redemonstration of innumerable pulmonary nodules which are nonspecific but may represent sarcoidosis, pneumonitis, or other chronic infectious/inflammatory process. No superimposed pneumonia is definitely seen. Bilateral pleural effusions have slightly increased from prior exam. --ECHO: Left ventricle is mildly dilated. Mild concentric LVH. 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 Left ventricle systolic function is severely reduced. EF 20 -25 %. Mild mitral, tricuspid regurgitation. Right ventricular systolic pressure is severely elevated> 60 mmHg. (ECHO unchanged from prior) Appreciate cardiology input Monitored I's and O's, daily weight, fluid restriction Held IV Bumex as renal function worsening Saturating well on 2 L supplemental oxygen Metoprolol succinate dose adjusted per cardiology Diuresis as per cardiology/nephrology - discussed w/ nephrology - bumex dose increased, also recommended palliative medicine consult -> pt made DNR/DNI as a result and opted for hospice services Poor prognosis Discharged home with hospice services on 03/13/24 and on torsemide 80 bid and KCl 20 daily on DC per Nephrology recs Right foot Wound/Osteomyelitis - MRI R foot w/o contrast obtained as outpt reviewed - showing early osteo at the 5th metatarsal head --S/P Right Foot Incision and Drainage to Bone by on 03/01/2024 -Wound cultures final--probable skin chela Empirically on Rocephin, Dapto>>transitioned to Rocephin only Appreciate podiatry input Continue wound care Cultures remain negative Appreciate ID input Originally advised that he will need PICC line, prolonged course of IV antibiotics per ID recommendations - ceftriaxone 2 g daily for a total duration of 6 weeks (counting to start from the day of surgery). Anticipated end date will be April 12, 2024. ID was contacted again on 03/12 once it was determined that pt would be going home with hospice services. Per ID Dr Saldivar, it was advised that po antibiotics would NOT treat osteomyelitis and would actually cause the pt more harm by increasing the risk of sideeffects such as c diff which is not in line with the pt's wishes for hospice and comfort measures. This was discussed with pt and daughter at the time of discharge on 03/13, and they were agreeable to discharge without antibiotics with close hospice provider followup. Recent Rhino Infection Remains positive on bio fire since last discharge Monitored HLD Held statin while on Daptomycin Can resume on discharge TAYA on CKD IV Baseline Cr ~2 Expected from IV diuretics/ATN Monitor renal function Avoid nephrotoxic agents as able Cr:2.9 today Anticipate he will have new baseline/ progression of CKD, nephrology following Discussed w/ nephrology - plan to switch to torsemide 80 bid and KCl 20 daily on DC Mood Disorder Continue home medication Notes For Next Care Provider ID was contacted again on 03/12 once it was determined that pt would be going home with hospice services. Per ID Dr Saldivar, it was advised that po antibiotics would NOT treat osteomyelitis and would actually cause the pt more harm by increasing the risk of sideeffects such as c diff which is not in line with the pt's wishes for hospice and comfort measures. This was discussed with pt and daughter at the time of discharge on 03/13, and they were agreeable to discharge without antibiotics with close hospice provider followup. 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 Patient was recently admitted at the beginning of this month for similar from 01/29 to 02/06 where he was treated for acute decompensated systolic CHF exacerbation. He had an echo at that point in time which showed an EF of 20 to 25%, severe pulmonary hypertension is present, large apical, septal, anterior septal, anterior, inferior, posterior and lateral wall motion abnormality with hypokinesis to akinesis. At that time he was managed with IV Lasix while inpatient. He was sent home and told to take torsemide 80 mg daily per cardiology. He remains on metoprolol and Imdur. At that time he was also treated for a type II OR due to demand ischemia, has a history of NSTEMI on p revious admission. Today he does not appear to have demand ischemia as his troponin is minimal. Patient has had acute weight gain, increased edema in his feet, abdominal bloating, dry cough and presents for concern for CHF exacerbation. He had been seen by [facility] at home nursing on 02/22 as he had weight gain from his dry weight of 170 up to 175 in less than 1 week, he was given Lasix IV 100 mg for fluid overload on 02/21, as he was wearing oxygen at 2L via NC and at baseline does not require any daytime supplemental O2. He was given administered a second dose of IV Lasix of 100 mg at home on 02/22. Patient presented for outpatient labs on 02/26 and states that he was still having worsening shortness of breath and wearing his O2 continuously despite IV diuretics administered over the weekend. Family also notes that he has been dealing with a right lateral foot wound which seem to have improved during his previous hospital stay here when he was treated for pneumonia with antibiotics as an inpatient, and since discharge has again worsened. He recently had an MRI as outpatient which resulted today, showing early onset osteomyelitis which is reviewed in epic. Admission Exam Per Admitting Provider General: awake, alert, no apparent distress Head: Normocephalic, atraumatic ENT: PERRL, EOMI, no pharyngeal exudate, mucous membranes moist Chest: Clear to auscultation, on 2L via NC with o2 sats in mid 90s at rest, no adventitious breath sounds Cardiac: Regular rate and rhythm, HR in mid 90s at rest, no murmur, no JVD, normal peripheral pulses, good capillary refill Abdominal: NABS x 4 quadrants, soft,+ slightly distended, nontender to palpation, no rebound or guarding Extremities: Normal inspection, trace pitting peripheral edema RLE worse than the LLE, + right lateral foot ulceration, deep, with purulent material, no surrounding erythema, calfs nontender to palpation Psych: Normal mood and affect Neuro: AAO x 3, strength intact bilaterally and rated 5/5, no motor deficits, speech is clear, no peripheral sensory deficits Discharge Exam General: Alert, oriented. No acute distress Psych: Appropriate mood and affect HEENT: NC/AT CV: RRR Resp: Breath sounds clear bilaterally, no increased effort of breathing. Extremities: R foot in shoe Updated Medication List Medication Instructions Recorded Confirmed Type aspirin 81 mg tablet,delayed 81 mg PO DAILY 05/21/19 02/27/24 History release tamsulosin 0.4 mg capsule 0.4 mg PO AMHS 05/21/19 02/27/24 History multivitamin-ferrous 1 tab PO DAILY 05/22/19 02/27/24 History fumarate-folic acid 18 mg-400 mcg tablet (Centrum Complete) famotidine 20 mg tablet 20 mg PO QAM 03/06/23 02/27/24 History guaifenesin 600 mg tablet, 600 mg PO Q12H PRN Cough 03/06/23 02/27/24 History extended release 12 hr ipratropium bromide 17 2 puff inhalation QID 03/06/23 02/27/24 History mcg/actuation HFA aerosol inhaler (Atrovent HFA) sodium chloride 0.65 % nasal spray 1 spray intranasal UD PRN 03/06/23 02/27/24 History aerosol (Saline Nasal) Congestion fluticasone propionate 50 2 sprays intranasal QAM 09/09/23 02/27/24 History mcg/actuation nasal spray,suspension rosuvastatin 10 mg tablet 10 mg PO HS 09/09/23 02/27/24 History clopidogrel 75 mg tablet 75 mg PO QAM #30 tabs 09/12/23 02/27/24 Rx isosorbide mononitrate 60 mg 60 mg PO QAM #30 tabs 09/12/23 02/27/24 Rx tablet,extended release 24 hr metoprolol succinate 25 mg 25 mg PO QAM #30 tabs 09/12/23 02/27/24 Rx tablet,extended release 24 hr nitroglycerin 0.4 mg sublingual 0.4 mg sublingual Q5M PRN chest 09/12/23 02/27/24 Rx tablet (Nitrostat) pain #30 tabs allopurinol 100 mg tablet 100 mg PO QAM 01/30/24 02/27/24 History torsemide 20 mg tablet 80 mg (4 x 20 mg) PO QAM 30 days 02/07/24 02/27/24 Rx #120 tabs citalopram 20 mg tablet 20 mg PO QAM 02/27/24 02/27/24 History hydralazine 10 mg tablet 10 mg PO AMHS 02/27/24 02/27/24 History mometasone 0.1 % topical ointment 1 applic topical DAILY 02/27/24 02/27/24 History pantoprazole 40 mg tablet,delayed 40 mg PO QAM 02/27/24 02/27/24 History release metoprolol succinate 25 mg 12.5 mg (1/2 x 25 mg) PO QPM #30 03/13/24 Rx tablet,extended release 24 hr tabs phenol 1.4 % mucosal aerosol spray 2 spray MT QID PRN sore throat 03/13/24 Rx (Sore Throat (phenol)) #177 mL potassium chloride 20 mEq 20 meq PO BID #60 tabs 03/13/24 Rx tablet,extended release(part/cryst) torsemide 20 mg tablet 80 mg (4 x 20 mg) PO BID #240 tabs 03/13/24 Rx Hospital Stay Data Consultations 02/27/24 13:47 ED Decision to Admit Stat 02/28/24 08:00 Consult Pulmonology Routine 02/28/24 08:10 Consult Cardiology Routine 02/28/24 15:15 Consult Podiatry Routine 03/04/24 08:00 Consult Infectious Diseases Routine 03/04/24 09:15 Consult Nephrology Routine 03/08/24 11:18 Consult Palliative Care Routine Procedures Performed Operation Date: 03/01/24 07:15 Actual Procedures p Right Foot Incision and Drainage to Bone(Right) - Teresita Bass DPM Diagnostic Imagining Performed 02/27/24 16:02 CT chest diagnostic wo con Stat 03/01/24 07:00 FL foot RT 2V Routine Chest X-Ray 02/27/24 12:13 XR chest 1V portable CLINICAL HISTORY: Dyspnea TECHNIQUE: Single frontal radiograph of the chest was obtained. Comparison: Comparison is made to chest radiograph 02/01/2024 FINDINGS: No lines and tubes are seen. Calcified aortic knob is seen. Prominence and cephalization of the vasculature is seen. Interval enlargement of bilateral pleural effusions. IMPRESSION: 1. Cardiomegaly and mild pulmonary edema. 2. Interval slight worsening of bilateral pleural effusions. ACT 112: Negative or not required by law. Electronically signed by: Javon Gallegos M.D. 02/27/2024 1:[address] 02/27/24 16:02 CT chest diagnostic wo con CLINICAL HISTORY: R/o infection TECHNIQUE: Multidetector row helical CT of the chest was performed. Coronal and sagittal reformations were obtained. Automated dose lowering techniques and/or adjustment according to patient size were utilized for this exam. CT DOSE: 497.15 mGy.cm Comparison: Comparison is made to CT chest 04/04/2023 FINDINGS: Lungs and pleura: Small bilateral pleural effusions are slightly increased from prior exam. Innumerable pulmonary nodules are again seen. Heart and pericardium: There is cardiomegaly without evidence of pericardial effusion. Vessels: Moderate atherosclerotic changes in the aorta and coronary arteries. Pulmonary trunk measures 31 mm in diameter. Mediastinum and yudith: Subcentimeter lymph nodes are seen. Chest wall and lower neck: Unremarkable. Abdomen: Unremarkable. Bones: Unremarkable. IMPRESSION: 1. Redemonstration of innumerable pulmonary nodules which are nonspecific but may represent sarcoidosis, pneumonitis, or other chronic infectious/inflammatory process. No superimposed pneumonia is definitely seen. 2. Bilateral pleural effusions have slightly increased from prior exam. ACT 112: Negative or not required by law. Electronically signed by: Javon Gallegos M.D. 02/27/2024 4:41 PM Chest X-Ray 02/29/24 07:00 XR chest 1V portable HISTORY: Pleural effusion COMPARISON: Chest 02/27/2024. FINDINGS: No pneumothorax. Small to moderate right and small left pleural effusions persist. Bibasilar densities again noted. Diffuse reticulonodular interstitial thickening remains unchanged. The heart remains mildly enlarged. There are calcifications within the aortic knob. IMPRESSION: 1. No change in the diffuse reticulonodular interstitial thickening. 2. Small to moderate right and small left pleural effusions persist with patchy bibasilar densities. ACT 112: Negative or not required by law. Electronically signed by: Mike Velasquez M.D. 02/29/2024 7:55 AM Foot X-Ray 03/01/24 07:00 FL foot RT 2V CLINICAL HISTORY: Right foot surgery. COMPARISON STUDY: None. FLUOROSCOPY TIME: 3 seconds. FLUOROSCOPY IMAGES: 2 Ka,r: 0.09 mGy FINDINGS: Resection of the head of the fifth metatarsal. IMPRESSION: Fluoroscopic assistance as above. ACT 112: Negative or not required by law. Electronically signed by: Mike Velasquez M.D. 03/01/2024 9:21 AM Chest X-Ray 03/07/24 10:28 XR chest 2V PA/lateral HISTORY: 88 years-old Male Pl effsuion/CHF acute shortness breath COMPARISON: 02/29/2024 TECHNIQUE: AP and lateral views of the chest FINDINGS: Cardiac silhouette is enlarged. Pulmonary vascular congestion. Bilateral reticulonodular opacities redemonstrated along with layering pleural effusions and bibasilar consolidation. No pneumothorax. IMPRESSION: 1. Cardiomegaly with pulmonary vascular congestion. 2. Bilateral reticular nodular opacities redemonstrated, likely infectious or inflammatory. 3. Layering pleural effusions with bibasilar consolidation appears stable. ACT 112: Negative or not required by law. The above report was generated using voice recognition software. It may contain grammatical, syntax or spelling errors. Electronically signed by: Azar Bruce M.D. 03/07/2024 12:40 PM Pending Results Patient Have Any Pending Studies at Discharge: No Discharge Instructions Given to Patient (Per Discharging Provider) Mr Elliott, You are being discharged home with hospice services. At the time of your discharge we discussed the use of oral antibiotics for your osteomyelitis. We discussed that IV antibiotics is the standard of care for treatment of Osteomyelitis. However, since you are on hospice services that is not an option for you. We discussed that putting you on oral antibiotics knowing that it would not adequately treat your foot infection and has a high probability of causing adverse effects such as clostridium difficile colitis which can cause more harm and discomfort which is not your goal. As such you were agreeable to not continuing with oral antibiotics and following up with your hospice provider about this as needed. Some changes were made to your medications listed below. Please keep close followup with your hospice provider after discharge. It was a pleasure taking care of you while you were here. Total Time Total Time Spent Total Time Spent (In Minutes): 75
== END 2024-03-13 13:52 | disposition hospice, home (50) | DRG 987 ==
LOC: ED 11:49 → EDINP 14:32 → SUATTDRO 14:32 → 2E 16:58 → 2N 03-11 22:44